=== PATIENT | male | born 2000 | race Caucasian/White ===

== ENCOUNTER 2020-08-02 18:03 | Emergency (ER) | payer OTHER, SELFPAY ==
[2020-08-02 18:15] VITALS: BP 130/72; PULSE 138; RESP 20; TEMP 37.2; O2SAT 100
[2020-08-02 18:16] LABS: Glucose Point of Care 159 (65-105)
[2020-08-02 18:26] LABS: Basophils Percent Auto 0.2 % (0.2-1.2); Hemoglobin 17.3 g/dL (14.0-18.0); Immature Granulocyte Absolute 0.06 K/mm3 (0.00-0.031); Immature Granulocyte Percent A 0.5 % (0-0.5); Lymphocytes Absolute Auto 2.11 K/mm3 (0.9-3.2); Lymphocytes Percent Auto 18.5 % (18.3-44.2); Mean Corpuscular HGB Conc 35.3 g/dl (32-36); Mean Corpuscular Hemoglobin 29.3 pg (26-34); Mean Corpuscular Volume 83.1 fl (80-100); Mean Platelet Volume 8.9 fl (7.4-10.4); Monocytes Absolute Auto 1.2 K/mm3 (0.1-0.6); Monocytes Percent Auto 10.1 % (2.6-8.5); Neutrophils Absolute Auto 8.1 K/mm3 (1.3-6.7); Neutrophils Percent Auto 70.7 % (45.5-73.1); Platelet Count Result 428 k/mm3 (150-375); Red Cell Distribution Width 12.6 % (11.5-14.5); White Blood Count 11.4 K/mm3 (4.5-10.0)
[2020-08-02 18:37] LABS: Alanine Aminotransferase 39 U/L (4-50); Albumin Level 4.7 g/dL (3.5-5.1); Alkaline Phosphatase 117 U/L (38-126); Anion Gap 12 mmol/L (8-16); Aspartate Amino Transferase 40 U/L (17-59); Bilirubin,Total 1.4 mg/dL (0.2-1.3); Blood Urea Nitrogen 17 mg/dL (9-20); Calcium 9.7 mg/dL (8.4-10.2); Carbon Dioxide 26 mmol/L (22-30); Chloride 93 mmol/L (98-107); Estimated CRCL calculation 150 ml/min; Estimated Glomerular Filt Rate > 60; Glucose 150 mg/dL (75-110); Lipase 23 U/L (23-300); Potassium 3.3 mmol/L (3.4-5.0); Sodium 131 mmol/L (137-145)
--- NOTE | 2020-08-02 19:00 | PC.NURSE ---
pt left the ER. Gait steady. Saw him get in a dark 4 car door
== END 2020-08-02 19:00 | disposition left against medical advice (07) ==
LOC: ANHED 19:06
PROVIDERS: Emergency Medicine; PCP Physician Assistant
DX: R11.10 Vomiting, unspecified (principal)
CPT/HCPCS: 36415; 80053; 83690; 85025; 99199

== ENCOUNTER 2021-07-26 16:13 | Outpatient (CLI) | payer OTHER, SELFPAY ==
[2021-07-26 17:20] LABS: SARS-CoV-2 Ag Positive (Negative)
== END 2021-07-26 16:14 | disposition home or self-care (01) ==
LOC: CHSLAB 16:18
PROVIDERS: PCP Physician Assistant; Visit Provider Physician Assistant
DX: U07.1 COVID-19 (principal)
CPT/HCPCS: 87426; C9803

== ENCOUNTER 2024-09-17 20:20 | Emergency (ER) | payer OTHER, SELFPAY ==
[2024-09-17 20:25] VITALS: BP 152/100; PULSE 94; RESP 20; TEMP 36.4; O2SAT 100
[2024-09-17] MEDS: ONDANSETRON INJ 4 MG/2 ML VIAL IV PUSH (20:39)
[2024-09-17] MEDS: SODIUM CHLORIDE 0.9% IV 1,000 ML 999 ML IV CONT (20:41)
[2024-09-17 20:46] LABS: Basophils Absolute Auto 0.06 K/mm3 (0.00-0.10); Basophils Percent Auto 0.6 % (0.0-1.0); Eosinophils Absolute Auto 0.02 K/mm3 (0.02-0.50); Eosinophils Percent Auto 0.2 % (1.0-6.0); Hematocrit 42.3 % (40.0-54.0); Hemoglobin 14.1 g/dL (14.0-18.0); Immature Granulocyte Absolute 0.03 K/mm3 (0.00-0.00); Immature Granulocyte Percent A 0.3 % (0.0-0.0); Lymphocytes Absolute Auto 2.16 K/mm3 (1.10-4.50); Lymphocytes Percent Auto 23.3 % (18.0-42.0); Mean Corpuscular HGB Conc 33.3 g/dL (32-36); Mean Corpuscular Volume 83.9 fL (78.0-102.0); Mean Platelet Volume 9.2 fl (8.7-11.0); Monocytes Absolute Auto 0.65 K/mm3 (0.10-0.90); Neutrophils Absolute Auto 6.35 K/mm3 (1.70-7.20); Neutrophils Percent Auto 68.6 % (50.0-70.0); Platelet Count Result 355 K/mm3 (150-420); Red Blood Count 5.04 M/mm3 (4.70-6.10); Red Cell Distribution Width 13.2 % (11.6-14.4); White Blood Count 9.3 K/mm3 (4.8-10.8)
[2024-09-17 20:59] LABS: Add Urine Microscopic? YES; Appearance Urine Clear (Clear); Bilirubin Urine Negative (Negative); Blood Urine Trace-intact (Negative); Color Urine Yellow (Yellow); Glucose Urine UA 2+ (Negative); Ketones Urine 1+ (Negative); Leukocyte Esterase Ur Negative LEU/UL (Negative); Nitrate Urine Negative (Negative); Protein Urine 3+ (Negative); Specific Grav Ur >= 1.030 (1.010-1.020); Urobilinogen Urine 0.2 mg/dL (0.2-1.0)
[2024-09-17 21:01] LABS: Alanine Aminotransferase 25 U/L (16-63); Albumin Level 4.2 g/dL (3.4-5.0); Alkaline Phosphatase 113 U/L (46-116); Anion Gap 13 mmol/L (4-12); Aspartate Amino Transferase 12 U/L (15-37); Bilirubin,Total 0.7 mg/dL (0.00-1.00); Blood Urea Nitrogen 27 mg/dL (7-18); Calcium 9.3 mg/dL (8.5-10.1); Carbon Dioxide 25 mmol/L (21-32); Chloride 99 mmol/L (98-108); Estimated CRCL calculation 74 ml/min; Estimated Glomerular Filt Rate > 60; Glucose 325 mg/dL (70-99); Magnesium 1.8 mg/dL (1.8-2.4); Osmolality Calculated 302 mOsm/kg (285-295); Phosphorus 3.3 mg/dL (2.6-4.7); Potassium 4.3 mmol/L (3.5-5.1); Sodium 137 mmol/L (136-145); Total Protein 7.8 g/dL (6.4-8.2)
[2024-09-17 21:04] LABS: Influenza A QL RT-PCR Negative (Negative); Influenza B QL RT-PCR Negative (Negative); RSV RNA, RT-PCR Negative (Negative); SARS-CoV-2 RNA PCR Negative (Negative)
[2024-09-17 21:04] LABS: Bacteria Urine None seen /hpf; RBC Urine 0-2 /hpf (0-2); Squamous Epithelial Cell Urine None seen /hpf (Few); WBC Urine 0-3 /hpf (0-3)
[2024-09-17 21:05] LABS: Mucus Urine Few /lpf
--- NOTE | 2024-09-17 21:08 | ED.NAVMDI ---
HPI - Nausea/Vomiting/Diarrhea General Chief complaint: Nausea/Vomiting/Diarrhea Stated complaint: Nausea, Vomiting Time Seen by Provider: 09/17/24 20:23 Source: patient and family Mode of arrival: ambulatory Limitations: no limitations History of Present Illness HPI Narrative: This is a 24-year-old type 1 diabetic presents with nausea vomiting currently no abdominal pain no fever chills no shortness of breath no dysuria no flank pain no diarrhea or constipation. MD elicited complaint: nausea, vomiting and diarrhea Onset (ago): hour(s) Description of vomiting: food contents and watery Related Data Allergies Allergy/AdvReac Type Severity Reaction Status Date / Time haloperidol (From Haldol) Allergy Unknown Unknown Verified 09/17/24 20:39 Review of Systems Review of Systems: All systems reviewed & are unremarkable except as noted in HPI and below PMFSH Past Medical History Medical History Type 1 diabetes Exam Const: General: healthy appearing and no acute distress Nutritional Appearance: well nourished Orientation/consciousness: patient oriented x3 Limitations: no limitations HENMT: Head: normal to inspection Eyes: Conjunctivae: conjunctivae normal Neck: Neck: normal visual inspection Chest: Chest palpation & inspection: normal inspection of the chest Resp: Effort & Inspection: normal respiratory effort Auscultation: clear to auscultation bilaterally Cardio: Rate: regular rate Rhythm: regular rhythm GI: GI Palp: Yes Soft to palpation Auscultation: normal bowel sounds : General: Yes bladder normal to palpation Urinary Catheter: Urinary Catheter: patent and draining Back/Spine/Pelvis: Back: no CVA tenderness Skin: General skin exam: normal color Rashes: no rashes Wounds: no wounds Neuro: General: patient oriented x3, moves all extremities and no meningeal signs Course Course Emergency Course: patient had blood work done which shows an anion gap of 13 urine no acute urinary tract infection does show 1+ ketones, patient is type 1 diabetic on an insulin pump. White count is normal chest x-ray performed shows no acute cardiopulmonary abnormalities. Patient received IV Zofran and 1L of IV fluids. Vital Signs Vital signs: Vital Signs Temperature 36.4 C 09/17/24 20:25 Pulse Rate 94 09/17/24 20:25 Respiratory Rate 20 09/17/24 20:25 Blood Pressure 152/100 H 09/17/24 20:25 Pulse Oximetry 100 09/17/24 20:25 Oxygen Delivery Room Air 09/17/24 20:25 Temperature 36.4 C 09/17/24 20:25 Pulse Rate 94 09/17/24 20:25 Respiratory Rate 20 09/17/24 20:25 Blood Pressure 152/100 H 09/17/24 20:25 Pulse Oximetry 100 09/17/24 20:25 Oxygen Delivery Room Air 09/17/24 20:25 MDM - Nausea/Vomiting/Diarrhea Lab Data 09/17/24 20:42 09/17/24 20:42 Labs: Lab Results 09/17/24 09/17/24 Range/Units 20:42 21:04 WBC 9.3 (4.8-10.8) K/mm3 RBC 5.04 (4.70-6.10) M/mm3 Hgb 14.1 (14.0-18.0) g/dL Hct 42.3 (40.0-54.0) % MCV 83.9 (78.0-102.0) fL MCH 28.0 (27.0-31.0) pg MCHC 33.3 (32-36) g/dL RDW 13.2 (11.6-14.4) % Plt Count 355 (150-420) K/mm3 MPV 9.2 (8.7-11.0) fl Immature Gran % (Auto) 0.3 H (0.0-0.0) % Neut % (Auto) 68.6 (50.0-70.0) % Lymph % (Auto) 23.3 (18.0-42.0) % [place] % (Auto) 7.0 (2.0-11.0) % Eos % (Auto) 0.2 L (1.0-6.0) % Baso % (Auto) 0.6 (0.0-1.0) % Lymph # (Auto) 2.16 (1.10-4.50) K/mm3 [place] # (Auto) 0.65 (0.10-0.90) K/mm3 Eos # (Auto) 0.02 (0.02-0.50) K/mm3 Baso # (Auto) 0.06 (0.00-0.10) K/mm3 Abs Immat Gran (auto) 0.03 H (0.00-0.00) K/mm3 Absolute Neuts (auto) 6.35 (1.70-7.20) K/mm3 Absolute Nucleated RBC 0.00 (0.00-0.00) K/mm3 Nucleated RBC % 0.0 (0-0.0) % Sodium 137 (136-145) mmol/L Potassium 4.3 (3.5-5.1) mmol/L Chloride 99 (98-108) mmol/L Carbon Dioxide 25 (21-32) mmol/L Anion Gap 13 H (4-12) mmol/L BUN 27 H (7-18) mg/dL Creatinine 1.33 H (0.70-1.30) mg/dL Estim Creat Clear Calc 74 ml/min Estimated GFR > 60 (59 - ) Glucose 325 H (70-99) mg/dL Calculated Osmolality 302 H (285-295) mOsm/kg Calcium 9.3 (8.5-10.1) mg/dL Phosphorus 3.3 (2.6-4.7) mg/dL Magnesium 1.8 (1.8-2.4) mg/dL Total Bilirubin 0.7 (0.00-1.00) mg/dL AST 12 L (15-37) U/L ALT 25 (16-63) U/L Alkaline Phosphatase 113 (46-116) U/L Total Protein 7.8 (6.4-8.2) g/dL Albumin 4.2 (3.4-5.0) g/dL Urine Color Yellow (Yellow) Urine Appearance Clear (Clear) Urine pH 6.0 (5.0-8.0) Ur Specific [place] >= 1.030 H (1.010-1.020) Urine Protein 3+ H (Negative) Urine Glucose (UA) 2+ H (Negative) Urine Ketones 1+ H (Negative) Ur Blood (Man) Trace-intact H (Negative) Urine Nitrate Negative (Negative) Urine Bilirubin Negative (Negative) Urine Urobilinogen 0.2 (0.2-1.0) mg/dL Leukocyte Esterase Rfl Negative (Negative) FABIANA/UL Urine RBC 0-2 (0-2) /hpf Urine WBC 0-3 (0-3) /hpf Ur Squamous Epith Cells None seen (Few) /hpf Urine Bacteria None seen (None) /hpf Urine Mucus Few H /lpf Influenza A (RT-PCR) Negative (Negative) Influenza B (RT-PCR) Negative (Negative) RSV (RT-PCR) Negative (Negative) SARS-CoV-2 RNA (RT-PCR) Negative (Negative) Critical Care Time Critical Care Time Critical Care Time: No Discharge Plan Discharge Clinical Impression: Gastroenteritis, Hyperglycemia Type 1 diabetes Qualifiers: Diabetes mellitus complication status: without complication Qualified Code(s): E10.9 - Type 1 diabetes mellitus without complications Patient Disposition: Home, Self-Care Condition: Stable Instructions: Antibiotic Form, Gastroenteritis (ED), Acute Nausea and Vomiting (ED), Diabetic Hyperglycemia (ED) Additional Instructions: advised to take medication as prescribed and to at continue insulin pump and follow with primary. Patient Language: Frisian Prescriptions: New ondansetron 4 mg tablet,disintegrating 4 mg PO Q6H PRN (Reason: nausea and vomiting) Qty: 14 0RF Follow-up/Referrals: Les,REEMA Arizmendi [Primary Care Provider] - Time of Disposition: 21:13
[2024-09-17 21:45] VITALS: BP 136/90; PULSE 84; RESP 18; TEMP 36.6; O2SAT 100
== END 2024-09-17 21:45 | disposition home or self-care (01) ==
PROVIDERS: Emergency Provider Emergency Medicine; PCP Physician Assistant
DX: E10.65 Type 1 diabetes mellitus with hyperglycemia (principal); K52.9 Noninfective gastroenteritis and colitis, unspecified; Z20.822 Contact with and (suspected) exposure to COVID-19
CPT/HCPCS: 36415; 71045; 80053; 81001; 83735; 84100; 85025; 87637; 96361; 96374; 99284; J2405; J7030

== ENCOUNTER 2024-09-18 17:23 | Emergency (ER) | payer OTHER, SELFPAY ==
[2024-09-18 17:24] VITALS: BP 136/102; PULSE 104; RESP 18; TEMP 36.7; O2SAT 97
--- NOTE | 2024-09-18 17:25 | ED.URI ---
HPI - URI/Sore Throat General Chief Complaint: Nausea/Vomiting/Diarrhea Stated Complaint: N/V Time Seen by Provider: 09/18/24 17:24 History of Present Illness HPI Narrative: Patient is a 24-year-old male with diabetes type 1 here for continued nausea and vomiting and a history of ER visit this week for similar complaints. He was discharged with Zofran. He was diagnosed with gastroenteritis. His vital signs are stable at this time in the ER. He was initially seen and started on IV fluids and labs drawn with a nasal swab. Patient stayed around 20-30 minutes and decided to take out his own IV and leave due to the fact that there is a concert at this time and he wanted to go to the concert. His mother is present. Both mother and patient/son have the mental capacity to make decisions at this time and were AAO x4 and able to make own decisions. He decided to take out his IV and quickly left the emergency room with mom. This was an AMA and only CBC was seen which is normal. They did not want to sign AMA forms. Patient understands the risks and consequences involved in leaving the facility at this time. The benefits of continued treatment and/or hospitalization with alternatives were discussed. Accu-Chek done in the ER was 156. Related Data Allergies Allergy/AdvReac Type Severity Reaction Status Date / Time haloperidol (From Haldol) Allergy Unknown Unknown Verified 09/17/24 20:39 [facility] Past Medical History Medical History Type 1 diabetes Course Vital Signs Vital signs: Vital Signs Temperature 36.7 C 09/18/24 17:24 Pulse Rate 104 H 09/18/24 17:24 Respiratory Rate 18 09/18/24 17:24 Blood Pressure 136/102 H 09/18/24 17:24 Pulse Oximetry 97 09/18/24 17:24 Oxygen Delivery Room Air 09/18/24 17:24 Temperature 36.7 C 09/18/24 17:24 Pulse Rate 104 H 09/18/24 17:24 Respiratory Rate 18 09/18/24 17:24 Blood Pressure 136/102 H 09/18/24 17:24 Pulse Oximetry 97 09/18/24 17:24 Oxygen Delivery Room Air 09/18/24 17:24 MDM - URI/Sore Throat Lab Data 09/18/24 17:40 02/28/25 17:40 Labs: Lab Results 09/18/24 09/18/24 Range/Units 17:33 17:40 WBC 7.6 (4.8-10.8) K/mm3 RBC 5.23 (4.70-6.10) M/mm3 Hgb 14.7 (14.0-18.0) g/dL Hct 44.8 (40.0-54.0) % MCV 85.7 (78.0-102.0) fL MCH 28.1 (27.0-31.0) pg MCHC 32.8 (32-36) g/dL RDW 13.1 (11.6-14.4) % Plt Count 360 (150-420) K/mm3 MPV 9.3 (8.7-11.0) fl Immature Gran % (Auto) 0.1 H (0.0-0.0) % Neut % (Auto) 60.7 (50.0-70.0) % Lymph % (Auto) 28.5 (18.0-42.0) % [place] % (Auto) 9.4 (2.0-11.0) % Eos % (Auto) 0.4 L (1.0-6.0) % Baso % (Auto) 0.9 (0.0-1.0) % Lymph # (Auto) 2.16 (1.10-4.50) K/mm3 [place] # (Auto) 0.71 (0.10-0.90) K/mm3 Eos # (Auto) 0.03 (0.02-0.50) K/mm3 Baso # (Auto) 0.07 (0.00-0.10) K/mm3 Abs Immat Gran (auto) 0.01 H (0.00-0.00) K/mm3 Absolute Neuts (auto) 4.60 (1.70-7.20) K/mm3 Absolute Nucleated RBC 0.00 (0.00-0.00) K/mm3 Nucleated RBC % 0.0 (0-0.0) % Sodium Pending Potassium Pending Chloride Pending Carbon Dioxide Pending Anion Gap Pending BUN Pending Creatinine Pending Estim Creat Clear Calc Pending Estimated GFR Pending Glucose Pending Calculated Osmolality Pending Lactic Acid Pending Calcium Pending Total Bilirubin Pending AST Pending ALT Pending Alkaline Phosphatase Pending Troponin I Pending Total Protein Pending Albumin Pending Lipase Pending Acetone Level Pending Influenza A (RT-PCR) Pending Influenza B (RT-PCR) Pending RSV (RT-PCR) Pending SARS-CoV-2 RNA (RT-PCR) Pending Discharge Plan Discharge Clinical Impression: Nausea & vomiting, Diabetes mellitus type 1 Patient Disposition: Left Against Medical Advice Condition: Stable Patient Language: Maldivian Prescriptions: No Action ondansetron 4 mg tablet,disintegrating 4 mg PO Q6H PRN (Reason: nausea and vomiting) Qty: 14 0RF Follow-up/Referrals: UNKNOWN,DOCTOR [Non-Staff] - Time of Disposition: 18:01
--- NOTE | 2024-09-18 17:41 | PCDIET ---
Covid culture sent to lab
[2024-09-18] MEDS: SODIUM CHLORIDE 0.9% IV 1,000 ML 999 ML IV CONT (17:46)
[2024-09-18 17:47] LABS: Basophils Absolute Auto 0.07 K/mm3 (0.00-0.10); Basophils Percent Auto 0.9 % (0.0-1.0); Eosinophils Absolute Auto 0.03 K/mm3 (0.02-0.50); Eosinophils Percent Auto 0.4 % (1.0-6.0); Hematocrit 44.8 % (40.0-54.0); Hemoglobin 14.7 g/dL (14.0-18.0); Immature Granulocyte Absolute 0.01 K/mm3 (0.00-0.00); Immature Granulocyte Percent A 0.1 % (0.0-0.0); Lymphocytes Absolute Auto 2.16 K/mm3 (1.10-4.50); Lymphocytes Percent Auto 28.5 % (18.0-42.0); Mean Corpuscular HGB Conc 32.8 g/dL (32-36); Mean Corpuscular Hemoglobin 28.1 pg (27.0-31.0); Mean Corpuscular Volume 85.7 fL (78.0-102.0); Mean Platelet Volume 9.3 fl (8.7-11.0); Monocytes Absolute Auto 0.71 K/mm3 (0.10-0.90); Monocytes Percent Auto 9.4 % (2.0-11.0); Neutrophils Percent Auto 60.7 % (50.0-70.0); Platelet Count Result 360 K/mm3 (150-420); Red Blood Count 5.23 M/mm3 (4.70-6.10); Red Cell Distribution Width 13.1 % (11.6-14.4); White Blood Count 7.6 K/mm3 (4.8-10.8)
--- NOTE | 2024-09-18 17:59 | PC.NURSE ---
1758 pt walked out of room told doctor in the [place] he was not staying pt took his iv out only received 200mls of NS and labs drawn no results completed states he had a concert to attend and walked out the door
[2024-09-19 17:24] LABS: Glucose Point of Care 156 mg/dl (65-105)
== END 2024-09-18 18:01 | disposition left against medical advice (07) ==
PROVIDERS: Emergency Provider Emergency Medicine; PCP Physician Assistant
DX: E10.9 Type 1 diabetes mellitus without complications (principal); R11.2 Nausea with vomiting, unspecified
CPT/HCPCS: 36415; 80053; 82010; 82948; 83605; 83690; 84484; 85025; 87040; 87637; 99283; J7030

== ENCOUNTER 2024-10-15 20:53 | Emergency (ER) | payer OTHER, SELFPAY ==
--- NOTE | ~2024-10-15 | XR_ITS ---
EXAMINATION: XR chest 1V portable 10/15/2024 22:02 INDICATION: Nausea and vomiting. Diabetes. PROCEDURE: AP portable chest COMPARISON: 09/17/2024 FINDINGS: The lungs are clear. The cardiomediastinal silhouette is within normal limits. There are no pleural effusions. There is no pneumothorax suspected. IMPRESSION: 1: NO ACUTE CARDIOPULMONARY DISEASE. Reviewed, dictated and finalized at location A.
[2024-10-15 20:53] VITALS: BP 180/125; PULSE 108; RESP 22; TEMP 36.2; O2SAT 98
--- OUTSIDE RECORDS SUMMARY | 2024-10-15 20:55 | XMS_ITS | Data Portability ---
Author Organization TIFFANY NATALIYAKaren Banerjee Address [address] [place] [address] Assessment No assessment recorded. Plan of Treatment Reminders Order Date Submit Date Provider Last Modified By Organization Details Last Modified Time Details Appointments None recorded. Lab CBC 2024 025 [facility], [address] [facility], [facility] [address], [place], [address], 5 10:16:08 CMP, serum or plasma 2024 025 [facility], [address] [facility], [facility] [address], [place], [address], 5 10:16:06 lipid panel, serum 2024 025 [facility], [address] [place] [address], [facility], [place], [address], 5 10:16:04 HbA1c (hemoglobin A1c), blood 2024 025 CHRISTINA In-Office Order, Internal Use Only DO Not Attach Compendium DO Not Attach Compendium, Do Not Delete/merge, [id number] 12:17:21 urinalysis, dipstick 2022 [facility] Order, Internal Use Only DO Not Attach Compendium DO Not Attach Compendium, Do Not Delete/merge, [id number] 15:45:59 Referral None recorded. Procedures None recorded. Surgeries None recorded. Imaging None recorded. Medication Orders buspirone 10 mg tablet 2022 023 CHRISTINA Not available 3 14:46:19 ondansetron 4 mg disintegrat ing tablet 2021 CHRISTINA Not available 2 11:57:15 gabapentin 300 mg capsule 2021 CHRISTINA Not available 2 11:57:12 nortriptyli ne 25 mg capsule 2021 kclarkma Not available 3 15:12:41 omeprazole 20 mg capsule,del ayed release 2021 CHRISTINA Not available 11:57:15 metoclopram julienne 10 mg tablet 2021 CHRISTINA Not available 2 11:57:11 Compro 25 mg rectal suppository 2021 CHRISTINA Not available 2 11:57:13 famotidine 20 mg tablet 2021 CHRISTINA Not available 2 11:57:14 Humalog U-100 Insulin 100 unit/mL subcutaneou s solution 2021 CHRISTINA Not available 2 11:57:15 naproxen 500 mg tablet 2021 CHRISTINA Not available 2 11:57:14 ondansetron HCl 4 mg tablet 2021 CHRISTINA Not available 2 11:57:14 Patient TargetsNo targets recorded. Patient Instructions Encounter Date Encounter Id Patient Instructions Last Modified By Organization Details Last Modified Time 11/13/2021 [id number] plantar fasciitis: care instructions jnanney Not available 11/13/2021 15:30:40 plantar fasciitis: exercises jnanney Not available 11/13/2021 15:30:40 learning about type 1 diabetes jnanney Not available 11/13/2021 15:30:40 type 1 diabetes: care instructions jnanney Not available 11/13/2021 15:30:40 05/30/2022 [id number] learning about type 1 diabetes jnanney Not available 05/30/2022 11:57:01 type 1 diabetes: care instructions jnanney Not available 05/30/2022 11:57:01 12/18/2022 [id number] A healthy lifestyle: care instructions jnanney Not available 12/18/2022 14:46:15 learning about type 1 diabetes jnanney Not available 12/18/2022 14:46:15 type 1 diabetes: care instructions jnanney Not available 12/18/2022 14:46:15 04/16/2023 [id number] A healthy lifestyle: care instructions jnanney Not available 04/16/2023 15:45:59 learning about type 1 diabetes jnanney Not available 04/16/2023 15:45:59 type 1 diabetes: care instructions jnanney Not available 04/16/2023 15:45:59 09/03/2024 [id number] learning about type 1 diabetes jnanney Not available 09/03/2024 12:01:53 type 1 diabetes: care instructions jnanney Not available 09/03/2024 12:01:53 Reason for Referral None Reported. Results Created Date Observation Date Name Description Value Unit Range Abnormal Flag Note LastModifiedBy Organization Detail LastModifiedTime 04/16/2004/16/2023 urina lysis , dipst ick Leukocytes Negati ve Not Available In-Office Order Internal Use Only DO Not Attach Compendium DO Not Attach Compendium, Do Not Delete/merge, [id number] 04/16/2023 15:37:08 04/16/20 23 04/16/2023 urina lysis , dipst ick Nitrite negati ve Not Available In-Office Order Internal Use Only DO Not Attach Compendium DO Not Attach Compendium, Do Not Delete/merge, [id number] 04/16/2023 15:37:08 04/16/20 23 04/16/2023 urina lysis , dipst ick Urobilinogen .2 Not Available In-Of fice Order Internal Use Only DO Not Attach Compendium DO Not Attach Compendium, Do Not Delete/merge, [id number] 04/16/2023 15:37:08 04/16/20 23 04/16/2023 urina lysis , dipst ick Protein Negati ve Not Available In-Office Order Internal Use Only DO Not Attach Compendium DO Not Attach Compendium, Do Not Delete/merge, 04/16/2023 15:37:04/16/20 23 04/16/2023 urina lysis , dipst ick pH 5.5 Not Available In-Office Order Internal Use Only DO Not Attach Compendium DO Not Attach Compendium, Do Not Delete/merge, 04/16/2023 15:37:04/16/20 23 04/16/2023 urina lysis , dipst ick Blood Negati ve Not Available In-Office Order Internal Use Only DO Not Attach Compendium DO Not Attach Compendium, Do Not Delete/merge, 04/16/2023 15:37:04/16/20 23 04/16/2023 urina lysis , dipst ick Specific [place] 1.015 Not Available In-Off ice Order Internal Use Only DO Not Attach Compendium DO Not Attach Compendium, Do Not Delete/merge, 04/16/2023 15:37:04/16/20 23 04/16/2023 urina lysis , dipst ick Ketone Negati ve Not Available In-Office Order Internal Use Only DO Not Attach Compendium DO Not Attach Compendium, Do Not Delete/merge, 04/16/2023 15:37:04/16/20 23 04/16/2023 urina lysis , dipst ick Bilirubin Negati ve Not Available In-Office Order Internal Use Only DO Not Attach Compendium DO Not Attach Compendium, Do Not Delete/merge, 04/16/2023 15:37:04/16/20 23 04/16/2023 urina lysis , dipst ick Glucose 1000 Not Available In-Office Order Internal Use Only DO Not Attach Compendium DO Not Attach Compendium, Do Not Delete/merge, 04/16/2023 15:37:04/16/20 23 04/16/2023 urina lysis , dipst ick Appearance Clear Not Available In-Offi ce Order Internal Use Only DO Not Attach Compendium DO Not Attach Compendium, Do Not Delete/merge, 04/16/2023 15:37:08 04/16/20 23 04/16/2023 urina lysis , dipst ick Color Pale Yellow Not Available In-Office Order Internal Use Only DO Not Attach Compendium DO Not Attach Compendium, Do Not Delete/merge, [id number] 04/16/2023 15:37:08 12/07/19 24 12/07/2023 Compr ehens yen metab olic 1999 panel - Serum or Plasm a sodium [moles/volum e] in serum or plasma 130 mmol/ L low: 136mmo l/Lhig h: 145mmo l/L low SODIU M 130 (L) 136 - 145 mmol/ L 12/06 12:06 PM CDT [facility] Not Available Not Available 09/03/2024 11:01:15 12/07/19 24 12/07/2023 Compr ehens yen metab olic 1999 panel - Serum or Plasm a potassium [moles/volum e] in serum or plasma 3.4 mmol/ L low: 3.5mmo l/Lhig h: 5.1mmo l/L low POTAS SIUM 3.4 (L) 3.5 - 5.1 mmol/ L 12/06 12:06 PM CDT [facility] Not Available Not Available 09/03/2024 11:01:15 12/07/19 24 12/07/2023 Compr ehens yen metab olic 1999 panel - Serum or Plasm a chloride [moles/volum e] in serum or plasma 77 mmol/ L low: 98mmol /Lhigh : 107mmo l/L low CHLOR JULIENNE 77 (L) 98 - 107 mmol/ L 12/06 12:06 PM CDT [facility] Not Available Not Available 09/03/2024 11:01:15 12/07/19 24 12/07/2023 Compr ehens yen metab olic 1999 panel - Serum or Plasm a carbon dioxide, total [moles/volum e] in serum or plasma 23 mmol/ L low: 22mmol /Lhigh : 30mmol /L CO2, VENOU S 23 22 - 30 mmol/ L 12/06 12:06 PM CDT [facility] Not Available Not Available 09/03/2024 11:01:15 12/07/19 24 12/07/2023 Compr ehens yen metab olic 1999 panel - Serum or Plasm a anion gap in serum or plasma 33.4 mmol/ L high: 18mmol /L high ANION GAP 33.4 (H) <18.0 mmol/ L 12/06 12:06 PM CDT [facility] Not Available Not Available 09/03/2024 11:01:15 12/07/19 24 12/07/2023 Compr ehens yen metab olic 1999 panel - Serum or Plasm a glucose [mass/volume ] in serum or plasma 377 mg/dL low: 70mg/d Lhigh: 99mg/d L high GLUCO SE 377 (H) 70 - 99 mg/dL 12/06 12:06 PM CDT [facility] Not Available Not Available 09/03/2024 11:01:15 12/07/19 24 12/07/2023 Compr ehens yen metab olic 1999 panel - Serum or Plasm a urea nitrogen [mass/volume ] in serum or plasma 48 mg/dL low: 9mg/dL high: 21mg/d L high BUN 48 (H) 9 - 21 mg/dL 12/06 12:06 PM CDT [facility] Not Available Not Available 09/03/2024 11:01:15 12/07/19 24 12/07/2023 Compr ehens yen metab olic 1999 panel - Serum or Plasm a creatinine [mass/volume ] in serum or plasma 2.8 mg/dL low: 0.7mg/ dLhigh : 1.3mg/ dL high CREAT ININE , BLOOD 2.80 (H) 0.70 - 1.30 mg/dL 12/06 12:06 PM CDT [facility] Not Available Not Available 09/03/2024 11:01:15 12/07/19 24 12/07/2023 Compr ehens yen metab olic 2000 panel - Serum or Plasm a urea nitrogen/cre atinine [mass ratio] in serum or plasma 17 text: 12 - 20 ratio BUN/C REATI NINE RATIO 17 12 - 20 ratio 12/06 12:06 PM CDT [facility] Not Available Not Available 09/03/2024 11:01:15 12/07/19 24 12/07/2023 Compr [employer] yen metab olic 1999 panel - Serum or Plasm a protein [mass/volume ] in serum or plasma 8.4 g/dL low: 6.3g/d Lhigh: 8.2g/d L high TOTAL PROTE IN 8.4 (H) 6.3 - 8.2 g/dL 12/06 12:06 PM CDT [facility] Not Available Not Available 09/03/2024 11:01:15 12/07/19 24 12/07/2023 Compr [employer] yen metab olic 1999 panel - Serum or Plasm a albumin [mass/volume ] in serum or plasma 4.7 g/dL low: 3.5g/d Lhigh: 5g/dL ALBUM IN 4.7 3.5 - 5.0 g/dL 12/06 12:06 PM CDT [facility] Not Available Not Available 09/03/2024 11:01:15 12/07/19 24 12/07/2023 Compr [employer] yen Be my eyes olic 1999 panel - Serum or Plasm a albumin/glob ulin [mass ratio] in serum or plasma 1.3 low: 1high: 2.2 A/G RATIO 1.3 1.0 - 2.2 12/06 12:06 PM CDT [facility] [employer] [facility] Not Available Not Available 09/03/2024 11:01:15 12/07/19 24 12/07/2023 Compr [employer] yen Be my eyes olic 1999 panel - Serum or Plasm a calcium [mass/volume ] in serum or plasma 9.3 mg/dL low: 8.7mg/ dLhigh : 10.5mg /dL CALCI UM 9.3 8.7 - 10.5 mg/dL 12/06 12:06 PM CDT [facility] [employer] [facility] Not Available Not Available 09/03/2024 11:01:15 12/07/19 24 12/07/2023 Compr ehens yen metab olic 1999 panel - Serum or Plasm a bilirubin.to su [mass/volume ] in serum or plasma 1.1 mg/dL low: 0.2mg/ dLhigh : 1.2mg/ dL T BILI 1.1 0.2 - 1.2 mg/dL 12/06 12:06 PM CDT [facility] [employer] [facility] Not Available Not Available 09/03/2024 11:01:15 12/07/19 24 12/07/2023 Compr ehens yen metab olic 1999 panel - Serum or Plasm a aspartate aminotransfe rase [enzymatic activity/vol ume] in serum or plasma 32 U/L low: 5U/Lhi gh: 34U/L SGOT (AST) 32 5 - 34 U/L 12/06 12:06 PM CDT [facility] [employer] [facility] Not Available Not Available 09/03/2024 11:01:15 12/07/19 24 12/07/2023 Compr ehens yen metab olic 1999 panel - Serum or Plasm a alanine aminotransfe rase [enzymatic activity/vol ume] in serum or plasma 41 U/L low: 0U/Lhi gh: 55U/L SGPT (ALT) 41 0 - 55 U/L 12/06 12:06 PM CDT [facility] [employer] [facility] Not Available Not Available 09/03/2024 11:01:15 12/07/19 24 12/07/2023 Compr ehens yen metab olic 2000 panel - Serum or Plasm a alkaline phosphatase [enzymatic activity/vol ume] in serum or plasma 115 U/L low: 40U/Lh igh: 150U/L ALKAL INE PHOSP HATAS E 115 40 - 150 U/L 12/06 12:06 PM CDT [facility] Not Available Not Available 09/03/2024 11:01:15 12/07/19 24 12/07/2023 Compr ehens yen metab olic 2000 panel - Serum or Plasm a glomerular filtration rate/1.73 sq M.predicted among non-blacks [volume rate/area] in serum, plasma or blood by creatinine-b ased formula (MDRD) 31 low: 60 low GFR, ESTIM ATED 31 (L) >=60 12/06 12:06 PM CDT [facility] Not Available Not Available 09/03/2024 11:01:15 12/07/19 24 12/07/2023 Compr ehens yen metab olic 1999 panel - Serum or Plasm a glomerular filtration rate/1.73 sq M.predicted among blacks [volume rate/area] in serum, plasma or blood by creatinine-b ased formula (MDRD) 34 low: 60 low GFR, EST. AFRIC AN 34 (L) >=60 12/06 12:06 PM CDT [facility] Not Available Not Available 09/03/2024 11:01:15 12/07/19 24 12/07/2023 Compr ehens yen metab olic 1999 panel - Serum or Plasm a glomerular filtration rate/1.73 sq M.predicted among non-blacks [volume rate/area] in serum, plasma or blood by creatinine-b ased formula (MDRD) 28 low: 60 low GFR, EST. NONAF RICAN 28 (L) >=60 12/06 12:06 PM CDT [facility] Not Available Not Available 09/03/2024 11:01:15 12/07/19 24 12/07/2023 Compr ehens yen metab olic 1999 panel - Serum or Plasm a interpretati on and review of laboratory results Abnorm al Not Available Not Available 11:01:15 02/12/20 24 02/12/2024 Hemog lobin A1c/H emogl obin. total in Blood hemoglobin A1C, POC 9.8 % Hemog lobin A1C, POC 9.8 % Not Available Not Available 09/03/2024 11:01:35 02/12/20 24 02/12/2024 Hemog lobin A1c/H emogl obin. total in Blood interpretati on and review of laboratory results Abnorm al Not Available Not Available 11:01:35 09/03/19 25 09/04/2024 LIPID PANEL cholesterol, total 256 mg/dL 100-19 9 above high normal Not Available [address], [address], 09/04/2024 10:16:04 09/03/19 25 09/04/2024 LIPID PANEL triglyceride s 125 mg/dL 0-149 Not Available [address], [address], 09/04/2024 10:16:04 09/03/19 25 09/04/2024 LIPID PANEL HDL cholesterol 49 mg/dL >39 Not Available [address], [address], 09/04/2024 10:16:04 09/03/19 25 09/04/2024 LIPID PANEL VLDL cholesterol kiersten 23 mg/dL 5-40 Not Available [address], [address], 09/04/2024 10:16:04 09/03/19 25 09/04/2024 LIPID PANEL LDL chol calc (nih) 184 mg/dL 0-99 above high normal Not Available [address], [address], 09/04/2024 10:16:04 09/03/19 25 09/04/2024 COMP. METAB OLIC PANEL (14) glucose 108 mg/dL 70-99 above high normal Not Available [address], [address], 09/04/2024 10:16:06 09/03/19 25 09/04/2024 COMP. METAB OLIC PANEL (14) BUN 18 mg/dL 6-20 Not Available [address], [address], 09/04/2024 10:16:06 09/03/19 25 09/04/2024 COMP. METAB OLIC PANEL (14) creatinine 0.99 mg/dL 0.76-1 .27 Not Available [address], [address], 09/04/2024 10:16:06 09/03/19 25 09/04/2024 COMP. METAB OLIC PANEL (14) eGFR 108 mL/mi n/1.7 3 >59 Not Available [address], [address], 09/04/2024 10:16:06 09/03/19 25 09/04/2024 COMP. METAB OLIC PANEL (14) BUN/creatini ne ratio 18 9-20 Not Available [address], [address], 09/04/2024 10:16:06 09/03/19 25 09/04/2024 COMP. METAB OLIC PANEL (14) sodium 142 mmol/ L 134-14 4 Not Available [address], [address], 09/04/2024 10:16:06 09/03/19 25 09/04/2024 COMP. METAB OLIC PANEL (14) potassium 5.4 mmol/ L 3.5-5. 2 above high normal Not Available [address], [address], 09/04/2024 10:16:06 09/03/19 25 09/04/2024 COMP. METAB OLIC PANEL (14) chloride 104 mmol/ L 96-106 Not Available [address], [address], 09/04/2024 10:16:06 09/03/19 25 09/04/2024 COMP. METAB OLIC PANEL (14) carbon dioxide, total 23 mmol/ L 20-29 Not Available [address], [address], 09/04/2024 10:16:06 09/03/19 25 09/04/2024 COMP. METAB OLIC PANEL (14) calcium 9.8 mg/dL 8.7-10 .2 Not Available [address], [address], 09/04/2024 10:16:06 09/03/19 25 09/04/2024 COMP. METAB OLIC PANEL (14) protein, total 7.2 g/dL 6.0-8. 5 Not Available [address], [address], 09/04/2024 10:16:06 09/03/19 25 09/04/2024 COMP. METAB OLIC PANEL (14) albumin 4.6 g/dL 4.3-5. 2 Not Available [address], [address], 09/04/2024 10:16:06 09/03/19 25 09/04/2024 COMP. METAB OLIC PANEL (14) globulin, total 2.6 g/dL 1.5-4. 5 Not Available [address], [address], 09/04/2024 10:16:06 09/03/19 25 09/04/2024 COMP. METAB OLIC PANEL (14) bilirubin, total 0.2 mg/dL 0.0-1. 2 Not Available [address], [address], 09/04/2024 10:16:06 09/03/19 25 09/04/2024 COMP. METAB OLIC PANEL (14) alkaline phosphatase 92 IU/L 44-121 Not Available [address], [address], 09/04/2024 10:16:06 09/03/19 25 09/04/2024 COMP. METAB OLIC PANEL (14) AST (SGOT) 16 IU/L 0-40 Not Available [address], [address], 09/04/2024 10:16:06 09/03/19 25 09/04/2024 COMP. METAB OLIC PANEL (14) ALT (SGPT) 11 IU/L 0-44 Not Available [address], [address], 09/04/2024 10:16:06 09/03/19 25 09/04/2024 CARDI OVASC ULAR REPOR T interpretati on Note Suppl ement al repor t is avail able. Not Available [address], [address], 09/04/2024 10:16:07 09/03/19 25 09/04/2024 CARDI OVASC ULAR REPOR T pdf . Not Available [address], [address], 09/04/2024 10:16:07 09/03/19 25 09/04/2024 CBC, PLATE LET, NO DIFFE RENTI AL WBC 7.8 x10e3 /uL 3.4-10 .8 Not Available [address], [address], 09/04/2024 10:16:08 09/03/19 25 09/04/2024 CBC, PLATE LET, NO DIFFE RENTI AL RBC 4.95 x10e6 /uL 4.14-5 .80 Not Available [address], [address], 09/04/2024 10:16:08 09/03/19 25 09/04/2024 CBC, PLATE LET, NO DIFFE RENTI AL hemoglobin 13.8 g/dL 13.0-1 7.7 Not Available [address], [address], 09/04/2024 10:16:08 09/03/1909/04/2024 CBC, PLATE LET, NO DIFFE RENTI AL hematocrit 43.6 % 37.5-5 1.0 Not Available [address], [address], 09/04/2024 10:16:08 09/03/1909/04/2024 CBC, PLATE LET, NO DIFFE RENTI AL MCV 88 fL 79-97 Not Available [address], [address], 09/04/2024 10:16:08 09/03/1909/04/2024 CBC, PLATE LET, NO DIFFE RENTI AL MCH 27.9 pg 26.6-3 3.0 Not Available [address], [address], 09/04/2024 10:16:08 09/03/1909/04/2024 CBC, PLATE LET, NO DIFFE RENTI AL MCHC 31.7 g/dL 31.5-3 5.7 Not Available [address], [address], 09/04/2024 10:16:08 09/03/1909/04/2024 CBC, PLATE LET, NO DIFFE RENTI AL RDW 13.8 % 11.6-1 5.4 Not Available [address], [address], 09/04/2024 10:16:08 09/03/1909/04/2024 CBC, PLATE LET, NO DIFFE RENTI AL platelets 415 x10e3 /uL 150-45 0 Not Available [facility] [address] [facility], [place], [address], 09/04/2024 10:16:08 09/03/1909/03/2024 HbA1c (hemo globi n A1c), blood HbA1c 9.0 Not Available In-Office Order Internal Use Only DO Not Attach Compendium DO Not Attach Compendium, Do Not Delete/merge, [id number] 09/03/2024 12:01:31 09/17/1909/17/2024 XR, chest No observ ation record ed. [facility] [address] [place], [address], 09/18/2024 10:37:26 Result Notes None recorded. Problems Name Problem SNOMED Code Status Onset Date Resolution Date Notes Provider Name and Address Organization Details Recorded Time Pneumonia 408433031 Active 2017 KAUR Cohen, [place] - [facility] 0 11:54:45 Dehydration 30528720 Active 2017 Carol Rojas MA null, [place] - [facility] 1 14:33:10 Mixed hypercholester olemia and hypertriglycer idemia 913046937 Active 2017 KAUR [place], [place] [facility] 0 11:54:46 Diabetic ketoacidosis without coma 908265458 Active 2017 KAUR [place], [place] [facility] 1 10:29:24 Type 1 diabetes mellitus 41848539 Active 2017 KAUR [place], [place] [facility] 0 11:54:45 Problem Notes None recorded. Procedures Surgical History Date Name Laterality Status Provider Name and Address Organization Details Recorded Time Cholecystectomy completed Ruth Ann Gramajo [place] - [facility] 09/03/2024 11:51:23 Imaging Results Imaging Date Name Status LastModified by Organiz ation Details LastModified Time 09/17/2024 XR, chest completed [facility] [address] [place], [address], 09/18/2024 10:37:26 Procedure Notes None recorded. Medical Equipment None Reported. Allergies Allergen ID Allergen Name Allergen Category Reaction Reaction Severity Criticality Documentation Date Start Date Code Code System Note Provider Name and Address Organization Details Recorded Time 15280 strawberr y allergeni c extract food rash moderate Not available 03/23/2015 52504 4 RxNorm Not Available Not Available Not Available No known drug allergies Medications Name Sig Start Date Stop Date Status Note LastModified by Organization Details LastModified Time atorvasta tin 40 mg tablet 05/06 completed Not Available Not Available Not Available atorvasta tin 20 mg tablet TAKE 1 TABLET BY MOUTH EVERY DAY active Not Available Not Available No t Available erythromy jose alejandro 500 mg tablet TAKE 1 TABLET EVERY 6 HOURS BY ORAL ROUTE FOR 10 DAYS. 11/13 completed Not Available Not Available Not Available sildenafi l 50 mg tablet Take 1 tablet every day by oral route as directed . 11/13 completed Not Available Not Available Not Available Glucagon Emergency Kit 1 mg solution for injection 11/13 completed Not Available Not Available Not Available promethaz ine 25 mg rectal supposito ry Insert 1 supposit ory by rectal route as needed. 11/13 completed Not Available Not Available Not Available Compro 25 mg rectal supposito ry UNWRAP AND INSERT 1 SUPPOSIT ORY RECTALLY TWICE DAILY NEEDED 2022 active Not Available Not Available Not Avai lable ondansetr on HCl 4 mg tablet TAKE 1-2 TABLETS BY MOUTH EVERY 8 HOURS NEEDED FOR NAUSEA - 1ST LINE. active Not Available Not Available No t Available Lantus U-100 Insulin 100 unit/mL subcutane ous solution 08/04 completed Not Available Not Available Not Available penicilli n V potassium 500 mg tablet TAKE 1 TABLET BY MOUTH THREE TIMES A DAY 09/03 completed Not Available Not Available Not Available amlodipin e 5 mg tablet TAKE 1 TABLET BY MOUTH EVERY DAY 11/13 completed Not Available Not Available Not Available prochlorp erazine maleate 10 mg tablet Take 1 tablet 3 times a day by oral route for 10 days. active Not Available Not Available No t Available tramadol 50 mg tablet TAKE 1 TABLET (50 MG TOTAL) BY MOUTH EVERY 6 (SIX) HOURS NEEDED FOR PAIN FOR UP TO 15 DAYS active Not Available Not Available No t Available triamcino lone acetonide 0.1 % topical cream 05/09 completed Not Available Not Available Not Available ondansetr on 8 mg disintegr ating tablet Place 1 tablet twice a day by translin gual route as needed for 10 days. 11/13 completed Not Available Not Available Not Available nortripty line 25 mg capsule TAKE 1 CAPSULE BY MOUTH EVERY EVENING (PATIENT NEEDS APPT FOR REFILLS) active Not Available Not Available No t Available erythromy jose alejandro 250 mg tablet TAKE ONE TABLET BY MOUTH THIRTY MINUTES BEFORE MEALS 11/13 completed Not Available Not Available Not Available amoxicill in 875 mg tablet TAKE 1 TABLET BY MOUTH TWICE A DAY FOR 10 DAYS 04/16 completed Not Available Not Available Not Available potassium chloride ER 20 mEq tablet,ex tended release(p art/cryst ) 11/13 completed Not Available Not Available Not Available famotidin e 20 mg tablet TAKE 1/2 TABLET TWICE A DAY BY MOUTH active Not Available Not Available No t Available diphenhyd ramine 50 mg/mL injection solution Take 1 mL by injectio n route. 11/13 completed Not Available Not Available Not Available Humalog U-100 Insulin 100 unit/mL subcutane ous solution INJECT UP TO 100 UNITS DAILY PER INSULIN PUMP SETTINGS active Not Available Not Available No t Available OneTouch Ultra Test strips CHECK BLOOD SUGAR 3 TIMES DAILY OR DIRECTED active Not Available Not Available No t Available doxycycli ne monohydra te 100 mg capsule 08/04 completed Not Available Not Available Not Available pantopraz ole 40 mg tablet,de layed release TAKE 1 TABLET BY MOUTH EVERY DAY active Not Available Not Available No t Available triamcino lone acetonide 0.1 % topical ointment apply bid to affected areas 03/18 completed Not Available Not Available Not Available nystatin 100,000 unit/gram topical cream 05/09 completed Not Available Not Available Not Available buspirone 10 mg tablet TAKE 1 TABLET BY MOUTH TWICE A DAY FOR 90 DAYS active Not Available Not Available No t Available lisinopri l 10 mg tablet TAKE 1 TABLET BY MOUTH DAILY. 05/30 completed Not Available Not Available Not Available Phospha Neutral 250 mg tablet TAKE 2 TABLETS BY MOUTH 3 TIMES DAILY FOR 5 DOSES. active Not Available Not Available No t Available glucagon (human recombina nt) 1 mg solution for injection 1 mg by injectio n route. 12/26 completed Not Available Not Available Not Available gabapenti n 300 mg capsule TAKE 1 CAPSULE BY MOUTH 3 TIMES A DAY (PATIENT NEEDS APPT FOR REFILLS) 2022 active Not Available Not Available Not Avai lable omeprazol e 20 mg capsule,d elayed release TAKE 1 CAPSULE BY MOUTH EVERY DAY 2022 active Not Available Not Available Not Avai lable lisinopri l 5 mg tablet Take 1 tablet every day by oral route. 10/31 completed Not Available Not Available Not Available methylpre dnisolone 4 mg tablets in a dose pack FOLLOW PACKAGE DIRECTIO NS 09/03 completed Not Available Not Available Not Available ketorolac 60 mg/2 mL intramusc ular solution Inject 1 mL every 6 hours by intramus cular route. 11/13 completed Not Available Not Available Not Available ondansetr on 4 mg disintegr ating tablet TAKE 1 TABLET BY MOUTH TWICE A DAY FOR 10 DAYS active Not Available Not Available No t Available Ketostix strips 09/21 completed Not Available Not Available Not Available naproxen 500 mg tablet TAKE 1 TABLET BY MOUTH TWICE A DAY active Not Available Not Available No t Available Microlet Lancet 05/09 completed Not Available Not Available Not Available metoclopr amide 10 mg tablet TAKE 1 TABLET BY MOUTH FOUR TIMES A DAY WITH MEALS AND AT BEDTIME active Not Available Not Available No t Available amoxicill in 875 mg-potass ium clavulana te 125 mg tablet TAKE 1 TABLET BY MOUTH TWICE DAILY FOR 10 DAYS 09/03 completed Not Available Not Available Not Available insulin lispro (U-100) 100 unit/mL subcutane ous pen INJECT 1 UNIT FOR EVERY 4 GM OF CHO. ISF OF 1 20 IF 140 MG/DL. UP TO 70 UNITS/DA Y 11/13 completed Not Available Not Available Not Available rosuvasta tin 20 mg tablet TAKE 1 TABLET BY MOUTH EVERY DAY AT NIGHT active Not Available Not Available No t Available Sure Comfort Insulin Syringe 0.5 mL 31 gauge x 12/04 completed Not Available Not Available Not Available fenofibra te micronize d 145 mg tablet Take 1 tablet every day by oral route. 11/13 completed Not Available Not Available Not Available sildenafi l (pulmonar y hypertens ion) 20 mg tablet Take 1 tablet by oral route as needed. 2022 active Not Available Not Available Not Avai lable omeprazol e 1 QD 10/31 completed Is taking this medicati on Not Available Not Available Not Available tramadol active PRN Not Available Not Avai lable Not Available fenofibra te nanocryst allized 48 mg tablet 48 mg by oral route. 03/18 completed Not Available Not Available Not Available fenofibra te nanocryst allized 145 mg tablet 08/04 completed Not Available Not Available Not Available Lantus Solostar U-100 Insulin 100 unit/mL (3 mL) subcutane ous pen INJECT 13 UNITS UNDER THE SKIN DAILY E10.65 USE FOR INSULIN PUMP FAILURE. PUMP HAS FAILED. active Not Available Not Available No t Available Trueresul t Blood Glucose System kit 05/09 completed Not Available Not Available Not Available TRUEplus Insulin 0.5 mL 29 gauge x 1/2 syringe 11/13 completed Not Available Not Available Not Available BD Insulin Syringe Ultra-Fin e 0.3 mL 31 gauge x 5/16 05/09 completed Not Available Not Available Not Available TRUEplus Lancets 28 gauge 11/13 completed Not Available Not Available Not Available Tresiba FlexTouch U-100 insulin 100 unit/mL (3 mL) subcutane ous pen 11/13 completed Not Available Not Available Not Available TechLITE Pen Needle 31 gauge x 5/16 11/13 completed Not Available Not Available Not Available Basaglar KwikPen U-100 Insulin 08/02 completed Not Available Not Available Not Available TRUEplus Pen Needle 32 gauge x 5/32 USE TO INJECT INSULIN DAILY. E10.65 active Not Available Not Available No t Available TechLITE Pen Needle 31 gauge x 3/16 USE TO INJECT INSULIN 4 TIMES A DAY 11/13 completed Not Available Not Available Not Available Dexcom G6 Sales Closer USE TO CHECK GLUCOSE FOUR TIMES DAILY active Not Available Not Available No t Available Dexcom G6 Transmitt er device APPLY NEW TRANSMIT TER EVERY 90 DAYS active Not Available Not Available No t Available OneTouch Ultra2 Meter USE DAILY DIRECTED FOR MONITORI NG OF BLOOD SUGAR FOR DIABETES E10.65 active Not Available Not Available No t Available OneTouch Delica Plus Lancet 33 gauge USE FOR TESTING 3 TIMES DAILY BEFORE MEALS active Not Available Not Available No t Available Dexcom G7 Sensor device USE 1 DEVICE CONTINUO USLY, CHANGE EVERY 10 DAYS. active Not Available Not Available No t Available Vitals Date Recorded Body height Body temperature Oxygen saturation Oxygen saturation in Arterial blood by Pulse oximetry Heart rate Body mass index (BMI) Body weight Systolic blood pressure Diastolic blood pressure Provider Name and Address Organization Details Last Updated DateTime 2 170.18 cm 97.8 [degF] 96 % 96 % 75.02 /min 23 kg/m2 92125.0 8 g 110 mm[Hg] 80 mm[Hg] Jeaneth Hamm MA [facility] 2 15:02:22 Date Recorded Body height Body mass index (BMI) Body weight Body temperature Oxygen saturation Oxygen saturation in Arterial blood by Pulse oximetry Heart rate Systolic blood pressure Diastolic blood pressure Provider Name and Address Organization Details Last Updated DateTime 2 170.18 cm 24.3 kg/m2 92642.8 2 g 97.3 [degF] 99 % 99 % 90 /min 138 mm[Hg] 84 mm[Hg] Telma david MA [facility] 2 11:31:36 Date Recorded Body height Body mass index (BMI) Body weight Respiratory rate Oxygen saturation Oxygen saturation in Arterial blood by Pulse oximetry Heart rate Systolic blood pressure Diastolic blood pressure Provider Name and Address Organization Details Last Updated DateTime 3 170.18 cm 22.7 kg/m2 26479.6 1 g 16 /min 97 % 97 % 95 /min 105 mm[Hg] 9 mm[Hg] Mary Melendez MA [facility] 3 14:24:52 Date Recorded Body height Body mass index (BMI) Body weight Oxygen saturation Oxygen saturation in Arterial blood by Pulse oximetry Heart rate Respiratory rate Systolic blood pressure Diastolic blood pressure Provider Name and Address Organization Details Last Updated DateTime 3 170.18 cm 23.1 kg/m2 78720.1 8 g 99 % 99 % 97 /min 16 /min 129 mm[Hg] 65 mm[Hg] Bella Bedoya MA [facility] 3 15:15:42 Date Recorded Body height Body mass index (BMI) Body weight Oxygen saturation Oxygen saturation in Arterial blood by Pulse oximetry Heart rate Respiratory rate Systolic blood pressure Diastolic blood pressure Provider Name and Address Organization Details Last Updated DateTime 5 170.18 cm 26.3 kg/m2 36095.5 2 g 98 % 98 % 92 /min 16 /min 128 mm[Hg] 78 mm[Hg] Ruth Ann Gramajo MA [facility] 5 11:53:39 Social History Question Answer Notes LastModified by Organizat ion Details LastModified Time Tobacco Smoking Status Never Smoker Telma Wade MA [facility] 05/30/2022 11:32:23 What Is Your Level Of Alcohol Consumption? None Information not available 05/06/2020 Animal Exposure? Yes [email or web address] Informat ion not available 03/23/2015 Are You Blind Or Do You Have Difficulty Seeing? Yes [email or web address] Information not available 05/30/2022 Are You Or Have You Been Involved With Bullying? No [email or web address] Information not available 03/23/2015 What Is Your Level Of Caffeine Consumption? None Information not available 09/03/2024 How Much Tobacco Do You Chew? None Information not available 05/06/2020 In The 14 Days Before Symptom Onset, Have You Had Close Contact With A Laboratory-confi rmed COVID-19 While That Case Was Ill? No Information not available 09/21/2020 In The 14 Days Before Symptom Onset, Have You Had Close Contact With A Person Who Is Under Investigation For COVID-19 While That Person Was Ill? No Information not available 09/21/2020 Have You Been To An Area Known To Be High Risk For COVID-19? No Information not available 09/21/2020 Are You Currently Employed? No Information not available 05/06/2020 Are You Deaf Or Do You Have Serious Difficulty Hearing? No Information not available 10/31/2020 What Type Of Diet Are You Following? REGULAR [email or web address] Information not available 03/23/2015 Do You Or Have You Ever Used E-cigarettes Or Vape? Current User Of Electronic Cigarettes Information not available 05/30/2022 Are There Any Guns Present In Your Home? Yes [email or web address] Information not available 03/23/2015 What Is Your Home Situation? Relatives Lives With Maternal Grandparents Information not available 05/09/2016 Do You Use Insect Repellent Routinely? Yes Information not available 03/23/2015 Live Alone Or With Others? With Others Information not available 05/06/2020 What Was The Date Of Your Most Recent Tobacco Screening? 09/03/2024 Information not available 09/03/2024 What Is Your Parents' Marital Status? Unmarried Information not available 03/23/2015 Pool Exposure No [email or web address] Information not available 03/23/2015 What Is Your Relationship Status? Single Information not available 09/21/2020 Do You Use Your Seat Belt Or Car Seat Routinely? Yes Sometimes Information not available 10/31/2020 Do You Have Any Siblings? 7 Half Sisters 1 Half Brother Information not available 03/23/2015 Do You Have Smoke And Carbon Monoxide Detectors In Your Home? Yes [email or web address] Information not available 03/23/2015 Are You Passively Exposed To Smoke? Yes Information not available 03/23/2015 Do You Or Have You Ever Used Smokeless Tobacco? Never Used Smokeless Tobacco Information not available 08/04/2019 How Much Tobacco Do You Smoke? No Information not available 08/04/2019 What Types Of Sporting Activities Do You Participate In? Golf [email or web address] Information not available 03/23/2015 General Stress Level Low Information not available 05/06/2020 Do You Feel Stressed (tense, Restless, Nervous, Or Anxious, Or Unable To Sleep At Night)? [id number] Restless Information not available 05/30/2022 Do You Use Any Illicit Or Recreational Drugs? Yes Marijuana Information not available 09/21/2020 Do You Use Sunscreen Routinely? Yes [email or web address] Information not available 03/23/2015 Has Tobacco Cessation Counseling Been Provided? No Information not available 10/31/2020 On What Date Was Tobacco Cessation Counseling Provided? 09/03/2024 Information not available 09/03/2024 Year In School 10 [email or web address] Informatio n not available 05/09/2016 Do You Or Have You Ever Used Any Other Forms Of Tobacco Or Nicotine? No Information not available 09/21/2020 Sex: Male Functional Status Question Answer Note LastModified by Organization D etails LastModified Time Are you able to care for yourself? Yes Information not available 05/06/2020 What is your exercise level? Moderate [email or web address] Information not available 03/23/2015 Mental Status None recorded. Family History Nothing Reported. Medical History Condition Response Other N Atrial Fibrillation N High Blood Pressure N Blood Diseases N Depression N COPD N Blood Clots N Developmental or Behavioral Disorders N Premature N Anxiety Disorder N Muscle, Joint, or Bone Problems N Vision or Eye Problems N Head Injury/Concussion N Acid Reflux (GERD) N Cancer N Stroke N ADHD N Bladder or Kidney Problems N High Cholesterol N Liver Disease N Schizophrenia N Headaches N Ear or Hearing Problems N Thyroid Problems N Kidney or Bladder Problems N GI Problems N Skin Problems N Eating Disorder N Anemia N Constipation N Heart Attack ([place]) N Diabetes Y Bedwetting N Seizures/Epilepsy N Heart Problems/Murmur N Asthma N Allergies N Substance Abuse N Hepatitis N Osteoporosis N Heart Failure N Chicken Pox N Autism Spectrum Disorder (ASD) N Immunizations Vaccine Type Date Status Note Provider Nam e and Address Organization Details Recorded Time Meningococcal MCV4O 6 completed Not Available [facility] 08/08/2019 02:32:35 HPV9 6 completed Not Available [facility] 08/08/2019 02:42:35 Influenza, split virus, quadrivalent, PF 6 completed Not Available [facility] 08/08/2019 02:32:34 Hep B, adolescent or pediatric 0 completed Not Available [facility] 05/07/2023 15:37:51 Hep B, adolescent or pediatric 0 completed Not Available [facility] 05/07/2023 15:37:51 Hep B, adolescent or pediatric 0 completed Not Available [facility] 05/07/2023 15:37:51 DTaP 4 completed Not Available [facility] 05/07/2023 15:37:51 DTaP 0 completed Not Available [facility] 05/07/2023 15:37:51 DTaP 2 completed Not Available [facility] 05/07/2023 15:37:51 DTaP 0 completed Not Available [facility] 05/07/2023 15:37:51 DTaP 0 completed Not Available [facility] 05/07/2023 15:37:51 Hib, unspecified formulation 0 completed Not Available [facility] 05/07/2023 15:37:51 Hib, unspecified formulation 4 completed Not Available [facility] 05/07/2023 15:37:51 Hib, unspecified formulation 0 completed Not Available [facility] 05/07/2023 15:37:51 Hib, unspecified formulation 0 completed Not Available [facility] 05/07/2023 15:37:51 IPV 0 completed Not Available [facility] 05/07/2023 15:37:51 IPV 4 completed Not Available [facility] 05/07/2023 15:37:51 IPV 0 completed Not Available [facility] 05/07/2023 15:37:51 IPV 0 completed Not Available [facility] 05/07/2023 15:37:51 pneumococcal conjugate PCV 7 1 completed Not Available [facility] 05/07/2023 15:37:51 MMR 4 completed Not Available [facility] 05/07/2023 15:37:51 MMR 2 completed Not Available [facility] 05/07/2023 15:37:51 varicella 0 completed Not Available [facility] 05/07/2023 15:37:51 varicella 2 completed Not Available [facility] 05/07/2023 15:37:51 influenza, unspecified formulation 2 completed Not Available [facility] 05/07/2023 15:37:51 influenza, unspecified formulation 0 completed Not Available [facility] 05/07/2023 15:37:51 influenza, unspecified formulation 4 completed Not Available [facility] 05/07/2023 15:37:51 meningococcal MCV4, unspecified formulation 2 completed Not Available [facility] 05/07/2023 15:37:51 Tdap 0 completed Not Available [facility] 05/07/2023 15:37:51 Hep A, ped/adol, 2 dose 6 completed Not Available [facility] 05/07/2023 15:37:51 Hep A, ped/adol, 2 dose 5 completed Not Available [facility] 05/07/2023 15:37:51 HPV, quadrivalent 4 completed Not Available [facility] 05/07/2023 15:37:51 HPV9 5 completed Not Available [facility] 08/08/2019 02:46:07 Past Encounters Encounter ID Performer Location Encounter Start Date Encounter Closed Date Diagnosis/Indication Diagnosis SNOMED-CT Code Diagnosis ICD10 Code Diagnosis Note [id number] KAUR Mckay (Peds) [address] [place] [place] [address] 03/23/2015 11:08:16 03/23/2015 12:29:38 Well child [id number] Routine adolescent care discussed safety and school performanc e discussed healthy weight with diet and exercise Type 1 ignacio betes mellitus 77654207 Routine f/u with endocrinol ogy. Daily BS monitoring . [id number] MD María Mendez (Peds) [address] [place] [address] 05/09/2016 15:46:21 05/09/2016 17:18:51 Well child 749166889 Z00.129 Routine adolescent care discussed safety and school performanc e discussed healthy weight with diet and exercise Type 1 ignacio betes mellitus 49917165 E10.8 Routine f/u with endocrinol ogy. Daily BS monitoring . [id number] Clarissa Osorio MA [facility] [address] [facility] [place] [address] 03/18/2019 11:43:52 03/18/2019 12:43:28 Type 1 diabetes mellitus 95602168 E10.9 [id number] Prashanth Saldana PA-C [facility] [address] [place] [address] 06/09/2019 17:42:26 06/09/2019 18:58:04 Uncontrolled type 1 diabetes mellitus 463864543 E10.65 [id number] Prashanth Saldana PA-C [facility] [address] [place] [address] 08/04/2019 15:54:01 08/04/2019 17:37:44 Low back pain 795666509 M54.5 Backache w ith radiating pain 849633681 M54.04 [id number] Prashanth Saldana PA-C [facility] [address] [place] [address] 11/20/2019 09:29:53 11/20/2019 19:46:46 [id number] Prashanth Saldana PA-C [facility] [address] [place] [address] 05/06/2020 09:37:24 05/06/2020 12:43:22 Type 1 diabetes mellitus 15425828 E10.9 Secondary erectile dysfunction 960150972 N52.8 Mixed hypercholesterolemia and hypertriglyceridemia 153111637 E78.2 [id number] Prashanth Saldana PA-C [facility] [address] [place] [address] 08/02/2020 10:24:01 08/03/2020 08:12:05 Uncontrolled type 1 diabetes mellitus 490519434 E10.65 [id number] Jeaneth Hamm MA [facility] [address] [place] [address] 09/21/2020 10:21:28 09/22/2020 15:52:19 Paresthesia of lower extremity 957386912 R20.2 Gastroesop hageal reflux disease without esophagitis 405627555 K21.9 Low back pain 478547437 M54.5 Gynecomastia 2939795 N62 [id number] SACHIN Mendez [facility] [address] [place] [address] 10/31/2020 14:28:27 11/01/2020 09:28:09 Type 1 diabetes mellitus 85268540 E10.9 Mixed hypercholesterolemia and hypertriglyceridemia 209741929 E78.2 Gastro-eso phageal reflux disease with esophagitis 782368486 K21.00 Viral gastroenteritis 11 2030230 A08.19 [id number] Prashanth Saldana PA-C [facility] [address] [place] [address] 01/10/2021 16:45:57 01/18/2021 07:34:35 [id number] Prashanth Saldana PA-C [facility] [address] [place] [address] 05/09/2021 10:30:53 05/09/2021 11:54:35 Type 1 diabetes mellitus without complication 191403841 E10.9 [id number] Jeaneth Hamm MA [facility] [address] [place] [address] 06/07/2021 16:49:31 06/07/2021 16:56:56 Nausea and vomiting 64175133 R11.2 Javier ordered Diphenhydr amine, was administer ed and pt was advised if didn't help to go to ER, voiced understand ing [id number] Prashanth Saldana PA-C [facility] [address] [place] [address] 11/13/2021 14:35:16 11/13/2021 15:33:50 Type 1 diabetes mellitus 89628666 E10.9 Body mass index 20-24 - normal 567994457 Z68.23 Plantar fasciitis 658123 003 M72.2 [id number] Prashanth Saldana PA-C [facility] [address] [place] [address] 05/30/2022 11:23:14 05/30/2022 12:00:41 Type 1 diabetes mellitus 02576926 E10.9 Diabetic p eripheral neuropathy 503507786 E11.40 Anxiety 57389511 F41.9 Gastroesop hageal reflux disease without esophagitis 026983106 K21.9 Nausea and vomiting 1693 2000 R11.2 Javier ordered Diphenhydr amine, was administer ed and pt was advised if didn't help to go to ER, voiced understand ing Gastropare sis due to type 1 diabetes mellitus 511784779 E10.43 [id number] Prashanth Saldana PA-C [facility] [address] [place] [address] 12/18/2022 14:17:54 12/19/2022 14:24:56 Type 1 diabetes mellitus 45195449 E10.9 Persistent insomnia 1919 54488 G47.09 Mixed anxi ety and depressive disorder 581522866 F41.8 Overweight 453587556 E66 .3 [id number] Prashanth Saldana PA-C [facility] [address] [place] [address] 04/16/2023 15:00:29 04/17/2023 14:26:08 Type 1 diabetes mellitus 33866897 E10.9 Marijuana user 016683772 F12.10 Overweight 213862598 E66 .3 [id number] Jeaneth Hamm MA [facility] [address] [place] [address] 09/03/2024 11:45:12 09/07/2024 14:32:03 Mixed hypercholesterolemia and hypertriglyceridemia 813273822 E78.2 Type 1 ignacio betes mellitus 99444582 E10.9 Body mass index 20-24 - normal 498027457 Z68.23 Health Concerns Section Related Observation LastModified by Organization Detai ls LastModified Time None Recorded Concern Status LastModified by Organization Details LastModified Time None Recorded Advance Directives Directive None Recorded Payers Encounter Date Sequence Insurance Name Policy Number Policy Blankenship Covered Member ID Blankenship Member ID Guarantor Name 11/13/[address] [facility] (MEDICAID HMO) [id number] Peter Shore [id number] Peter Shore 05/30/[address] [facility] (MEDICAID HMO) [id number] Peter Shore [id number] Peter Shore 12/18/[address] [facility] (MEDICAID HMO) [id number] Peter Shore [id number] Peter Shore 04/16/[address] [facility] (MEDICAID HMO) [id number] Peter Shore [id number] Peter Shore 09/03/[address] [facility] (MEDICAID HMO) [id number] Peter Shore [id number] Peter Shore Notes Date Note Type Note Provider Name and Address Organization Details Recorded Time 11/13/2021 text/html follow up on diabetes...also has bilateral temporal swelling that has been present for 3 days...some tenderness and some visual changes...feet are very painful by the end of the night... Prashanth Saldana PA-C Attn: Accounting, [address] [place], [place], [address] [place] [address], [facility] 11/13/2021 15:31:10 05/30/2022 text/html hx of type 1...frequent crashes...hx of gastroparesis...gibson s pain and acidic belching..sugar currently 134...hasnt taken his GERD meds yet... Prashanth Saldana PA-C Attn: Accounting, [address] [place], [place], [address] [place] [address], [facility] 05/30/2022 11:57:53 12/18/2022 text/html says he cannot sleep...watches movies all night...says his stress levels are high...GERD is present....still smokes a lot of weed...says he gets bored and everybody stresses him out without weed Prashanth Saldana PA-C Attn: Accounting, [address] [place], [place], [address] [place] [address], [facility] 12/18/2022 14:47:31 04/16/2023 text/html smoked weed.. to ok a nap ..came in and appears stoned.. (when asked about weed grandmother said no and patient said yes)...reports that he has an upcoming appt with endo in april Prashanth Saldana PA-C Attn: Accounting, [address] [place], [place], [address] [place] [address], [facility] 04/16/2023 15:47:33 09/03/2024 text/html annual check up...says he quit etoh...says he is living healthier..has gained weight...says blood sugars are better...Nay Hamm MA [facility] 09/03/2024 12:18:11
--- OUTSIDE RECORDS SUMMARY | 2024-10-15 20:55 | XMS_ITS | Encounter Summary ---
Author Organization [facility] Address [address] [place] [address] Phone Care Team Providers Care Fisher Trawl Net Name Role Phone Prashanth Saldana Primary Care Provider [phone] Heidi Swift MD Unavailable Reason for Visit * Reason Comments Medication Refill Encounter Details Date Type Department Care Team (Late st Contact Info) Description 08/28/2021 Refill [facility] - Endocrinology - [place] [address] [place] [address] Heidi Swift MD [address] [address] Medication Refill Social History Tobacco Use Types Packs/Day Years Used Date Smoking Tobacco: Never Smokeless Tobacco: Never Alcohol Use Standard Drinks/Week Comments No 0 (1 standard drink = 0.6 oz pur e alcohol) Sexually Active Control Partners Comments Yes Female Sex and Gender Information Value Date Recorded Sex Assigned at Not on file Legal Sex Male 8:12 PM CDT Gender Identity Not on file Sexual Orientation Not on file COVID-19 Exposure Response Date Recorded In the last month, have you been in contact with someone who was confirmed or suspected to have Coronavirus / COVID-19? Yes 08/01/2021 9:49 AM CITIZEN PARTICIPATION SPECIALIST documented as of this encounter Miscellaneous Notes * Telephone Encounter - Eli Jones RN - 08/28/2021 9:00 AM CITIZEN PARTICIPATION SPECIALIST Requested Prescriptions Pending Prescriptions Disp Refills ??? insulin lispro (HumaLOG) 100 UNIT/ML Solution [Pharmacy Med Name: HUMALOG 100 UNIT/ML VIAL] 30 mL 0 Sig: UP TO 100 UNITS/DAY PER INSULIN PUMP SETTINGS Next appt: 09/12/2021 ZEN PARTICIPATION SPECIALIST documented in this encounter Plan of Treatment Not on file documented as of this encounter Visit Diagnoses Not on filedocumented in this encounter Additional Health Concerns Infection Onset Date Last Indicated Resolved Time COVID - 19 04/13/2022 04/13/2022 04/13/2022 10:4 2 AM CDT COVID - 19 05/17/2022 05/17/2022 05/27/2022 12:1 6 AM CDT Respiratory Rule-Out 05/17/2022 05/17/2022 022 12:16 AM CITIZEN PARTICIPATION SPECIALIST COVID - 19 06/27/2022 06/27/2022 07/07/2022 12:1 6 AM CITIZEN PARTICIPATION SPECIALIST Influenza 06/27/2022 06/27/2022 07/04/2022 12:1 6 AM CITIZEN PARTICIPATION SPECIALIST COVID - 19 04/05/2024 04/05/2024 04/05/2024 10:2 0 PM CDT documented as of this encounter Care Teams Fisher Trawl Net Relationship Specialty Start Date End Date Prashanth Saldana PAC [address] [place] [address] PCP - General Physician Director Call 04/03/19 Heidi Swift MD [address] [phone] Consulting Physician Endocrinology 08/09/20 09/23/24 documented as of this encounter
--- OUTSIDE RECORDS SUMMARY | 2024-10-15 20:55 | XMS_ITS | Encounter Summary ---
Author Organization [facility] Address [address] [place] [address] Phone Care Team Providers Care Transportation Aide Name Role Phone Prashanth Saldana Primary Care Provider [phone] Heidi Swift MD Unavailable Reason for Visit * Reason Comments Medication Refill Encounter Details Date Type Department Care Team (Late st Contact Info) Description 07/24/2021 Refill [facility] - Endocrinology - [place] [address] [place] [address] Heidi Swift MD [address] [address] Medication Refill Social History Tobacco [...] or suspected to have Coronavirus / COVID-19? No / Unsure 07/07/2021 3:14 PM FROZEN FOOD DEPARTMENT MANAGER documented as of this encounter Miscellaneous Notes * Telephone Encounter - Eli Jones RN - 07/25/2021 8:10 AM FROZEN FOOD DEPARTMENT MANAGER Requested Prescriptions Pending Prescriptions Disp Refills ??? Continuous Blood Gluc Sensor (Dexcom G6 Sensor) Misc [Pharmacy Med Name: DEXCOM G6 SENSOR] Sig: CHANGE SENSOR EVERY 10 DAYS. Next appt: 08/01/2021 EN FOOD DEPARTMENT MANAGER documented in this encounter Plan of Treatment Not on file documented as of this encounter Visit Diagnoses Diagnosis Type 1 diabetes mellitus without complication (HCC) Type I (juvenile type) diabetes mellitus without mention of complication, not stated as uncontrolled documented in this encounter Additional Health Concerns Infection Onset Date Last Indicated Resolved Time COVID - 19 04/13/2022 04/13/2022 04/13/2022 10:4 2 AM CDT COVID - 19 05/17/2022 05/17/2022 05/27/2022 12:1 6 AM CDT Respiratory Rule-Out 05/17/2022 05/17/2022 022 12:16 AM FROZEN FOOD DEPARTMENT MANAGER COVID - 19 06/27/2022 06/27/2022 07/07/2022 12:1 6 AM FROZEN FOOD DEPARTMENT MANAGER Influenza 06/27/2022 06/27/2022 07/04/2022 12:1 6 AM FROZEN FOOD DEPARTMENT MANAGER COVID - 19 04/05/2024 04/05/2024 04/05/2024 10:2 0 PM CDT documented as of this encounter Care Teams Transportation Aide Relationship Specialty Start Date End Date Prashanth Saldana, [facility] [address] [place] [address] PCP - General Physician Assistant Front Office Manager 04/03/19 Heidi Swift MD [address] [phone] Consulting Physician Endocrinology 08/09/20 09/23/24 documented as of this encounter
--- OUTSIDE RECORDS SUMMARY | 2024-10-15 20:55 | XMS_ITS | Encounter Summary ---
Author Organization [facility] Address [address] [place] [address] Phone Care Team Providers Care Ornamental Ironworking Supervisor Name Role Phone Prashanth Saldana Primary Care Provider [phone] Heidi Swift MD Unavailable Reason for Visit * Reason Comments Medication Refill Encounter Details Date Type Department Care Team (Late st Contact Info) Description 12/27/2021 Refill [facility] - Endocrinology - [place] [address] [place] [address] Heidi Swift MD [address] [address] Medication Refill Social History Tobacco [...] Exposure Response Date Recorded In the last 10 days, have yo u been in contact with someone who was confirmed or suspected to have Coronavirus/COVID-19? No / Unsure 12/25/2021 7:43 PM CDT documented as of this encounter Miscellaneous Notes * Telephone Encounter - Saadia Lawson, [facility] - 12/29/2021 11:37 AM CDT Patient calling requesting refill of: Requested Prescriptions Pending Prescriptions Disp Refills ??? 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 documented in this encounter Plan of Treatment Not on file documented as of this encounter Visit Diagnoses Not on filedocumented in this encounter Additional Health Concerns Infection Onset Date Last Indicated Resolved Time COVID - 19 04/13/2022 04/13/2022 04/13/2022 10:4 2 AM CDT COVID - 19 05/17/2022 05/17/2022 05/27/2022 12:1 6 AM CDT Respiratory Rule-Out 05/17/2022 05/17/2022 022 12:16 AM RESIDENT PHYSICIAN COVID - 19 06/27/2022 06/27/2022 07/07/2022 12:1 6 AM RESIDENT PHYSICIAN Influenza 06/27/2022 06/27/2022 07/04/2022 12:1 6 AM RESIDENT PHYSICIAN COVID - 19 04/05/2024 04/05/2024 04/05/2024 10:2 0 PM CDT documented as of this encounter Care Teams Ornamental Ironworking Supervisor Relationship Specialty Start Date End Date Prashanth Saldana PAC [address] [place] [id number] PCP - General Physician Body Fitter 04/03/19 Heidi Swift MD [address] [phone] Consulting Physician Endocrinology 08/09/20 09/23/24 documented as of this encounter
--- OUTSIDE RECORDS SUMMARY | 2024-10-15 20:55 | XMS_ITS | Clinical Summary ---
Author Organization [facility] Address [address] [place] [address] Phone Care Team Providers Care Silver Spray Worker Name Role Phone Prashanth Saldana Primary Care Provider [phone] Allergies Active Allergy Reactions Criticality Noted Date Comments Haloperidol Shortness of Breath,Anxiety 024 Medications fenofibrate (TRICOR) 145 MG Tablet Take 145 mg by mouth daily. 2 9 Active Insulin Syringe-Needle U-100 (INSULIN SYRINGE .5CC/31GX5/16 ) 31G X 5/16 0.5 ML Misc Three times a day 300 Each 3 9 Active Blood Glucose Monitoring Suppl Device Test four times daily 1 Each 0 Active Lancets Misc Test four times daily 400 Lancet 3 0 Active gabapentin (NEURONTIN) 300 MG Capsule 1 Active Insulin Pen Needle (TechLite Pen Daggett) 31G X 8 MM Misc USE TO INJECT INSULIN 4 TIMES A DAY 400 Pen Needle 3 1 Active metoclopramide (REGLAN) 10 MG Tablet Take 1 Tablet by mouth 4 times daily as needed for Nausea - 2nd line. 10 Tablet 1 Active Continuous Blood Gluc Transmit (Dexcom G6 Transmitter) MiscIndications:T ype 1 diabetes mellitus without complication (HCC) 1 EACH BY DOES NOT APPLY ROUTE EVERY 90 DAYS. CHANGE SENSOR EVERY 90 DAYS. 1 Each 3 2 Active Glucose Blood (My Dog BowlTouch Ultra) Strip TEST FOUR TIMES DAILY 300 Strip 5 2 Active ondansetron (Zofran ODT) 4 MG TABLET DISPERSIBLE Take 1 Tablet by mouth every 8 hours as needed for Nausea - 1st line. 10 Tablet 2 Active Continuous Blood Gluc Fire Alarm Repairer (Dexcom G6 Fire Alarm Repairer) Device USE TO CHECK GLUCOSE 4X DAILY. 1 Each 2 Active Continuous Blood Gluc Sensor (Dexcom G6 Sensor) MiscIndications:T ype 1 diabetes mellitus without complication (HCC) CHANGE SENSOR EVERY 10 DAYS 3 Each 1 2 Active insulin lispro (HumaLOG) 100 UNIT/ML Solution INJECT UP TO 100 UNITS DAILY PER INSULIN PUMP SETTINGS. 30 mL 2 Active busPIRone (BUSPAR) 10 MG Tablet Take 10 mg by mouth 2 times daily. Active rosuvastatin (CRESTOR) 20 MG Tablet Take 20 mg by mouth nightly. 4 Active Continuous Glucose Sensor (Dexcom G7 Sensor) Misc 1 Device by Other route continuous. 4 Active pantoprazole (PROTONIX) 40 MG Tablet Delayed Response Take 1 Tablet by mouth daily. 30 Tablet 4 Active methylPREDNISolon e (MEDROL DOSPACK) 4 MG Tablet Therapy Pack See product package insert for dosing schedule 21 Tablet 5 Active Active Problems Problem Noted Date Diagnosed Date Hypophosphatemia 04/06/2024 Elevated lactic acid level 04/06/2024 Type 1 diabetes mellitus 04/06/2024 Flank pain 04/06/2024 Prolonged Q-T interval on ECG 04/06/2024 Anxiety 04/06/2024 Leukocytosis 03/27/2023 Gastroparesis 03/27/2023 Diabetic ketoacidosis withou t coma associated with type 1 diabetes mellitus 10/25/2020 JACK (acute kidney injury) 10/25/2020 Diabetic neuropathy associat ed with type 1 diabetes mellitus 10/25/2020 Dehydration 10/25/2020 Nausea and vomiting 10/25/2020 Diarrhea 10/25/2020 Non-compliance 10/09/2019 Muscle spasm 09/17/2019 Type 1 diabetes mellitus with ketoacidosis 07/23 Hypoglycemia 07/08/2019 Dyslipidemia 07/08/2019 Hypertension 06/23/2019 Hyponatremia 06/23/2019 Hypokalemia 06/23/2019 Type 1 diabetes mellitus without complication Hypertriglyceridemia 05/07/2019 Encounters Date Type Department Care Team Description 08/20/2024 4:25 AM DISABILITY ADVOCATE - 08/20/2024 5:07 AM DISABILITY ADVOCATE Emergency [facility] Emergency [address] [place] [address] Dawson Burr MD Eustachian tube dysfunction, left Discharge Disposition: Discharged to home or Selfcare 08/20/2024 Travel from Last 3 Months Immunizations Immunization Administration Dates Next Due DTAP VACCINE 09/08/2003, 2,03/13/2000,01/09,1999 HEP B/HIB Combined Vaccine 03/13/2000,1999 Hepatitis A Vaccine, Pediatric/adolescent, 2 Dose Schedule 02/06/2006,03/15/2005 Hepatitis A, Pediatric, Unsp ecified Formulation 04/21/2010 Hepatitis B Vaccine, Pediatric/adolescent 1999 Hib Vaccine,unspecified Formulation 09/08/2003,0 08/18/2001,01/10/2000 Human Papillomavirus (HPV) 9 -valent Vaccine 05/09/2016,03/23/2015 Human Papillomavirus Vaccine (HPV), quadrivalent 05/27/2014 Inactivated Polio Vaccine 09/08/2003,,01/10/2000,10/31 Influenza Vaccine, Quadrivalent, PF 05/09/2016,1 07/27/2013 Influenza Vaccine,unspecifie d Formulation 04/17/2012,04/21/2010 MMR Vaccine 09/08/2003,08/18/2001 Meningococcal MCV4, Unspecif ied Formulation 04/17/2012 Meningococcal MCV4O 05/09/2016 Pneumococcal Vaccine Peds - 7 Valent 10/24/2000 TDAP Vaccine 04/21/2010 Varicella Vaccine Live 04/21/2010,06/01/2002 Family History Medical History Relation Name Comments No Known Problems Brother No Known Problems Father No Known Problems Mother No Known Problems Sister 1 No Known Problems Sister 2 No Known Problems Sister 3 No Known Problems Sister 4 No Known Problems Sister 5 No Known Problems Sister 6 No Known Problems Sister 7 Relation Name Status Comments Brother Alive Father Alive Mother Alive Sister 1 Alive Sister 2 Alive Sister 3 Alive Sister 4 Alive Sister 5 Alive Sister 6 Alive Sister 7 Alive Social History Tobacco Use Types Packs/Day Years Used Date Smoking Tobacco: Never Smokeless Tobacco: Never Tobacco Cessation:Counseling Given: No Alcohol Use Standard Drinks/Week Comments No 0 (1 standard drink = 0.6 oz pur e alcohol) [facility] Utilities Answer Date Recorded In the past 12 months has th e electric, gas, oil, or water company threatened to shut off services in your home? No 04/05/2024 Social Connection and Isolat ion Panel [NHANES] Answer Date Recorded In a typical week, how many times do you talk on the phone with family, friends, or neighbors? More than three times a week 12/07/2023 How often do you get togethe r with friends or relatives? More than three times a week 12/07/2023 How often do you attend chur ch or lutheran services? Never 12/07/2023 Do you belong to any clubs o r organizations such as mandaen groups, unions, fraternal or athletic groups, or school groups? No 12/07/2023 How often do you attend meet ings of the clubs or organizations you belong to? Never 12/07/2023 Are you , , di vorced, , never , or living with a partner? Never 12/07/2023 AUDIT-C Answer Date Recorded Q1: How often do you have a drink containing alcohol? Never 12/07/2023 Q2: How many drinks containi ng alcohol do you have on a typical day when you are drinking? Patient does not drink Q3: How often do you have si x or more drinks on one occasion? Never 12/07/2023 Overall Financial Resource Strain (CARDIA) Answe r Date Recorded How hard is it for you to pa y for the very basics like food, housing, medical care, and heating? Somewhat hard 12/07/2023 [facility] [place] [facility] Occupat ional Health - Occupational Stress Questionnaire Answer Date Recorded Do you feel stress - tense, restless, nervous, or anxious, or unable to sleep at night because your mind is troubled all the time - these days? To some extent 12/07/2023 Exercise Vital Sign Answer Date Recorde d On average, how many days pe r week do you engage in moderate to strenuous exercise (like a brisk walk)? 5 days 12/07/2023 On average, how many minutes do you engage in exercise at this level? 60 min 12/07/2023 Hunger Vital Sign Answer Date Recorded Within the past 12 months, y ou worried that your food would run out before you got the money to buy more. Never true 04/05/20 Within the past 12 months, t he food you bought just didn't last and you didn't have money to get more. Never true 04/05/2024 PRAPARE - Transportation Answer Date Re corded In the past 12 months, has l ack of transportation kept you from medical appointments or from getting medications? No 03/22 In the past 12 months, has l ack of transportation kept you from meetings, work, or from getting things needed for daily living? No 04/05/2024 Housing Stability Vital Sign Answer Eloy e Recorded In the last 12 months, was t here a time when you were not able to pay the mortgage or rent on time? Patient declined 12/07/19 In the last 12 months, how many places have you lived? 2 12/07/2023 In the last 12 months, was t here a time when you did not have a steady place to sleep or slept in a detention (including now)? No 12/07/2023 Housing Stability Vital Sign Answer Eloy e Recorded In the last 12 months, was t here a time when you were not able to pay the mortgage or rent on time? No 04/05/2024 In the past 12 months, how m any times have you moved where you were living? 1 04/05/2024 At any time in the past 12 m [facility], were you homeless or living in a detention (including now)? No 04/05/2024 Sexually Active Control Partners Comments Yes Female Sex and Gender Information Value Date Recorded Sex Assigned at Not on file Legal Sex Male 8:12 PM CDT Gender Identity Not on file Sexual Orientation Not on file Last Filed Vital Signs Vital Sign Reading Time Taken Comments Blood Pressure 150/93 08/20/2024 4:45 AM DISABILITY ADVOCATE Pulse 79 08/20/2024 4:45 AM DISABILITY ADVOCATE Temperature 35.9 C (96.7 F) 08/20/2024 4:29 AM DISABILITY ADVOCATE Respiratory Rate 17 08/20/2024 4:29 AM DISABILITY ADVOCATE Oxygen Saturation 100% 08/20/2024 4:45 AM DISABILITY ADVOCATE Inhaled Oxygen Concentration - - Weight 75.8 kg (167 lb 1.7 oz) 08/20/2024 4:29 A M DISABILITY ADVOCATE Height 167.6 cm (5' 6 ) 08/20/2024 4:29 AM DISABILITY ADVOCATE Body Mass Index 26.97 08/20/2024 4:29 AM DISABILITY ADVOCATE Plan of Treatment Health Maintenance Due Date Last Done Comments Diabetes: Celiac Disease Screening 1999 Diabetes: Eye Exam 1999 Diabetes: Foot Exam 1999 Diabetes: Thyroid Stimulating Hormone (TSH) Screening 1999 Hepatitis C Virus (HCV) Screening 1999 Pneumococcal Immunization Combined (1 of 2 - PCV) 2018 10/24/2000 DTaP/Tdap/Td Immunization (7 - Td or Tdap) 04/21/2020 04/21/2010, 09/08/2003, 08/18/2001, Additional history exists Diabetes: Lipid Screening 07/10/2023 07/10/2022, 10/2018 Influenza Immunization (#1) 03/22/202404/21, 05/27/2014, 04/17/2012, Additional history exists SARS-COV-2 Immunization ( season) 2024 Diabetes: Nephropathy Screening 12/06/2024 12/07/2023, 03/26/2023, 03/26/2023, Additional history exists Diabetes: Hemoglobin A1c 03/03/2025 025, 04/05/2024, 02/12/2024, Additional history exists Respiratory Syncytial Virus (RSV) Immunization (Adult) (1 - 1-dose 75+ series) 2074 Hepatitis B Immunization Completed 000, 03/13/2000, 1999, Additional history exists Human Papillomavirus (HPV) Immunization Completed 05/09/2016, 03/23/2015, 05/27/2014 Meningococcal Immunization (ACWY) Completed 05/09/2016, 04/17/2012 Rotavirus Immunization Aged Out No lo nger eligible based on patient's age to complete this topic Procedures Procedure Name Priority Date/Time Associated Diagnosis Comments HEMOGLOBIN A1C W/ ESTIMATED GLUCOSE STAT 04/05/2024 4:39 PM CDT CMP (COMPREHENSIVE METABOLIC PANEL) STAT 12/07/2023 10:48 AM CDT LIPID PANEL Routine 06/24/2019 5:44 AM DISABILITY ADVOCATE from Last 3 Months or Most Recently Relevant to Health Maintenance Results * (ABNORMAL) Hemoglobin A1C (04/05/2024 4:39 PM CDT) HGB-A1C 10.4(H) 4.0 - 6.0 % 04/05/2024 5:05 PM CDT [facility] Est Average Glucose 251.8 mg/dL 04/05/2024 5:05 PM CDT [facility] Blood Venipuncture / Unknown 04/05/2024 4:39 PM CDT 04/05/2024 4:39 PM CDT Narrative [facility] - 04/05/2024 5:05 PM CDT HEMOGLOBIN A1C: DIABETIC PATIENTS: WELL-CONTROLLED: 6.2 - 7.0 INTERMEDIATE WELL-CONTROLLED: 7.0 - 9.0 POORLY-CONTROLLED: >9.0 us Ruth Ann Tejada APRN, CNP CHEMISTRY ORDERABLES Final Result [facility] [address] [place] [address] * (ABNORMAL) Comprehensive Metabolic Panel (Cmp) [id number] (12/07/2023 10:48 AM CDT) SODIUM 130(L) 136 - 145 mmol/L 12/07/2023 12:06 PM CDT [facility] POTASSIUM 3.4(L) 3.5 - 5.1 mmol/L 12/07/2023 12:06 PM CDT [facility] CHLORIDE 77(L) 98 - 107 mmol/L 12/07/2023 12:06 PM CDT [facility] CO2, VENOUS 23 22 - 30 mmol/L 12/07/2023 12:06 PM T [facility] ANION GAP 33.4(H) <18.0 mmol/L 12/07/2023 12:06 PM T [facility] GLUCOSE 377(H) 70 - 99 mg/dL 12/07/2023 12:06 PM T [facility] BUN 48(H) 9 - 21 mg/dL 12/07/2023 12:06 PM T [facility] CREATININE, BLOOD 2.80(H) 0.70 - 1.30 mg/dL 12/07/2023 12:06 PM T [facility] BUN/CREATININE RATIO 17 12 - 20 ratio 12/07/2023 12:06 PM [facility] TOTAL PROTEIN 8.4(H) 6.3 - 8.2 g/dL 12/07/2023 12:06 PM [facility] ALBUMIN 4.7 3.5 - 5.0 g/dL 12/07/2023 12:06 PM T [facility] A/G RATIO 1.3 1.0 - 2.2 12/07/2023 12:06 PM [facility] CALCIUM 9.3 8.7 - 10.5 mg/dL 12/07/2023 12:06 PM [facility] T BILI 1.1 0.2 - 1.2 mg/dL 12/07/2023 12:06 PM [facility] SGOT (AST) 32 5 - 34 U/L 12/07/2023 12:06 PM [facility] SGPT (ALT) 41 0 - 55 U/L 12/07/2023 12:06 PM [facility] ALKALINE PHOSPHATASE 115 40 - 150 U/L 12/07/2023 12:06 PM [facility] GFR, ESTIMATED 31(L) >=60 12/07/2023 12:06 PM [facility] Comment: Creatinine Clearance is the preferred criteria for selecting drug dose adjustments in renally impaired patients. The GFR is provided as additional pertinent clinical information. GFR is reported in mL/min/1.73 sq m. Calculation based on the Chronic Kidney Disease Epidemiology Collaboration (CKD- EPI) equation refit without adjustment for race. GFR, EST. 34(L) >=60 024 12:06 PM CDT [facility] GFR, EST. NONAFRICAN 28(L) >=60 12/07/2023 12:06 PM CDT [facility] Blood Venipuncture / Unknown 12/07/2023 10:48 AM CDT 12/07/2023 11:36 AM CDT Andres Peralta APRN, CNP CHEMISTRY ORDERABLES Fi nal Result [facility] [address] [place] [address] * (ABNORMAL) Lipid Panel AM (06/24/2019 5:44 AM DISABILITY ADVOCATE) CHOLESTEROL 141 <=200 mg/dL 06/24/2019 1:58 PM DISABILITY ADVOCATE [facility] TRIGLYCERIDES 158(H) <150 mg/dL 06/24/2019 1:58 PM DISABILITY ADVOCATE [facility] HDL CHOLESTEROL 30.4(L) >40 mg/dL 9 1:58 PM DISABILITY ADVOCATE [facility] LDL 79 5 - 130 mg/dL 06/24/2019 1:58 PM DISABILITY ADVOCATE [facility] VLDL 32 5 - 55 mg/dL 06/24/2019 1:58 PM DISABILITY ADVOCATE [facility] CHOL/HDL RATIO 4.6(H) 0.0 - 4.4 06/24/2019 1:58 PM DISABILITY ADVOCATE [facility] NON-HDL CHOLESTEROL 110.6 <130 mg/dL 06/24/2019 1:58 PM DISABILITY ADVOCATE [facility] LIPID FASTING 06/24/2019 1:58 PM DISABILITY ADVOCATE [facility] Blood specimen (specimen) BLOOD SPECIMEN / Unknown Venipuncture / Unknown 06/24/2019 5:44 AM DISABILITY ADVOCATE 06/24/2019 1:10 PM DISABILITY ADVOCATE Toni Orourke MD CHEMISTRY ORDERABLES Fin al Result [facility] [address] [place] [address] from Last 3 Months or Most Recently Relevant to Health Maintenance Insurance MEDICAID F[place] MEDICAID [place]ER Advance Directives * Full Code (Latest Code Status on File) Date Activated Date Inactivated Comments 04/05/2024 7:29 PM CPR-Full Treat ment: FULL ARREST: Attempt Resuscitation/CPR wit intubation and mechanical ventilation. PRE-ARREST: Use entire range of life support measures to stabilize the patient. * Full Code Date Activated Date Inactivated Comments 12/07/2023 2:23 PM 12/07/2023 7:29 PM CPR-Full [place] atment: FULL ARREST: Attempt Resuscitation/CPR wit intubation and mechanical ventilation. PRE-ARREST: Use entire range of life support measures to stabilize the patient. * Full Code Date Activated Date Inactivated Comments 03/26/2023 10:31 PM 03/27/2023 2:48 PM CPR-Full [place] tment: FULL ARREST: Attempt Resuscitation/CPR wit intubation and mechanical ventilation. PRE-ARREST: Use entire range of life support measures to stabilize the patient. * Full Code Date Activated Date Inactivated Comments 10/25/2020 2:17 AM 10/26/2020 1:42 PM CPR-Full Treat ment: FULL ARREST: Attempt Resuscitation/CPR wit intubation and mechanical ventilation. PRE-ARREST: Use entire range of life support measures to stabilize the patient. * Full Code Date Activated Date Inactivated Comments 01/17/2020 5:32 AM 01/17/2020 5:58 PM CPR-Full West atment: FULL ARREST: Attempt Resuscitation/CPR wit intubation and mechanical ventilation. PRE-ARREST: Use entire range of life support measures to stabilize the patient. Care Teams Silver Spray Worker Relationship Specialty Start Date End Date Prashanth Saldana, LINNETTE [address] [place] [id number] PCP - General Physician Houseman 04/03/19
--- OUTSIDE RECORDS SUMMARY | 2024-10-15 20:55 | XMS_ITS | Referral Summary ---
Author Organization [facility] Address [address] [place] [address] Care Team Providers Care Chest Painting Leader Name Role Phone Con Beltrán MD Unavailable [phone] Prashanth Saldana Primary Care Provider [phone] Sidney Russell MD Unavailable [phone] Allergies Active Allergy Reactions Criticality Noted Date Comments Haloperidol Nausea & Vomiting Low 02/12/2024 Medications metoclopramide (REGLAN) 10 mg tablet Take 1 tablet (10 mg total) by mouth 4 (four) times a day Active omeprazole (PriLOSEC) 20 mg capsule Take 1 capsule (20 mg total) by mouth daily Active famotidine (PEPCID) 20 mg tablet Take 1 tablet (20 mg total) by mouth 2 (two) times a day Active gabapentin (NEURONTIN) 300 mg capsule Take 1 capsule (300 mg total) by mouth 2 (two) times a day Active nortriptyline (PAMELOR) 25 mg capsule Take 1 capsule (25 mg total) by mouth nightly 30 capsule 1 Active naproxen (NAPROSYN) 500 mg tablet Take 1 tablet (500 mg total) by mouth 2 (two) times a day 2 Active Compro 25 mg suppository INSERT 1 SUPPOSITORY TWICE A DAY RECTALLY NEEDED. 2 Active ondansetron (ZOFRAN) 4 mg tablet TAKE 1-2 TABLETS BY MOUTH EVERY 8 HOURS NEEDED FOR NAUSEA - 1ST LINE. 2 Active busPIRone (BUSPAR) 10 mg tablet 3 Active blood-glucose meter kit Use daily as directed for monitoring of blood sugar for diabetes e10.65 1 kit 1 3 Active lancets misc 1 each by other route 3 (three) times a day before meals E10.65 100 each 11 3 Active insulin glargine 100 unit/mL (3 mL) pen for injection Inject 13 Units under the skin daily E10.65 use for insulin pump faillure. Pump has failed. 15 mL 11 3 Active pen needle, diabetic 32 gauge x needle Use to inject insulin daily. E10.65 50 each 11 3 Active blood glucose diagnostic (OneTouch Ultra Test) strip CHECK BLOOD SUGAR 3 TIMES DAILY OR DIRECTED 100 strip 11 4 Active penicillin v potassium (VEETID) 500 mg tablet Take 1 tablet (500 mg total) by mouth 3 (three) times a day 30 tablet 4 Active traMADoL (ULTRAM) 50 mg tablet Take 1 tablet (50 mg total) by mouth every 6 (six) hours as needed for pain for up to 15 days 15 tablet 4 Active Dexcom G7 Sensor device 1 Device continuously . Change every 10 days. E11.65 10 each 3 4 Active rosuvastatin (CRESTOR) 20 mg tablet Take 1 tablet (20 mg total) by mouth nightly 90 tablet 4 4 Active Dexcom G6 Transmitter device APPLY NEW TRANSMITTER EVERY 90 DAYS 1 each 4 4 Active insulin lispro (HumaLOG) 100 unit/mL vial for injection INJECT UP TO 100 UNITS DAILY PER INSULIN PUMP SETTINGS 30 mL 4 4 Active Active Problems Problem Noted Date Diagnosed Date Tandem T slim Insulin pump in place 04/04/2022 Assessment & Plan (02/12/2024 2:22 PM CDT): This is a chronic condition which is worsening and not at goal. Download reviewed from 01/30/24 to 02/12/24 Type of insulin pump- tandem T slim with humalog insulin. Pump settings Basal 0000-1.25 ISF 30 Active insulin time 5hrs. TARGET GLUCOSE 120 Avg Total daily insulin-53 units basal -28 units- 53 % bolus -25 units- 47 % Interpretation- lack of bolusing, Average blood sugar-217. Lowest blood sugar-57 highest-400. In target-48%. Hypoglycemia-1%, hyperglycemia 51% . Assessment & Plan (05/07/2023 2:34 PM CDT): This is a chronic condition which is worsening and not at goal. Download reviewed. Type of insulin pump- tandem T slim with humalog insulin 04/24/2023 to 05/07/2023 Pump settings Basal 0000-1.0, 0300-1.2, 0800-0.9, 1900-1.2. .IC 8 ISF 30 Active insulin time 4hrs. TARGET GLUCOSE 120 Avg Total daily insulin-52 units basal -23 units- 44 % food bolus - 7units- 24% Correction bolus - 0 units- 0% Control-IQ auto bolus- 20 units- 69% Interpretation- lack of bolusing, Average blood sugar-235. Lowest blood sugar-57 highest-400. In target-24%. Hypoglycemia-35%, hyperglycemia 40% . Assessment & Plan (02/05/2023 6:01 PM CDT): This is a chronic condition which is worsening and not at goal. Download reviewed. Type of insulin pump- tandem T slim with humalog insulin 01/22/2023 to 02/04/2023 Pump settings Basal 0000-0.8, 0300-1.0, 0800-0.7, 1900-0.8. .IC 8 ISF 30 Active insulin time 4hrs. TARGET GLUCOSE 120 Avg Total daily insulin-24 units basal -14 units-57 % food bolus - 0units- 0% Correction bolus - 0.28 units- 1% Control-IQ auto bolus- 10 units- 42% Interpretation- lack of bolusing, lack of wearing pump. Average blood sugar-234. Lowest blood sugar-57 highest-400. In target- 48%. Hypoglycemia-0%, hyperglycemia 52% Assist the patient in contacting tandem to get a replacement pump. . Assessment & Plan (10/09/2022 2:05 PM CDT): This is a chronic condition which is worsening and not at goal. Download reviewed. Type of insulin pump- tandem T slim with humalog insulin 09/25/2022 to 10/08/2022 Pump settings Basal 0000-0.8, 0300-1.0, 0800-0.7, 1900-0.8. .IC 8 ISF 30 Active insulin time 4hrs. TARGET GLUCOSE 120 Avg Total daily insulin-54units basal -21 units-39% food bolus - 2 units- 3% Correction bolus - 2 units- 3% Control-IQ auto bolus- 30 units- 54% Interpretation- lack of bolusing. Average blood sugar-243. Lowest blood sugar-40 highest-400. In target- 33%. Hypoglycemia-2%-less than 70. . Assessment & Plan (07/10/2022 9:22 AM ADJUNCT INSTRUCTOR IN ECONOMICS): This is a chronic condition which is not at goal. Unable to Download as he has a new pump and is not connected on [employer]. Type of insulin pump- tandem T slim with humalog insulin Pump settings Basal 0000-1.0, 0800-0.7, 1900-1.0 .IC 8 ISF 30 Active insulin time 4hrs. TARGET GLUCOSE 120 Avg Total daily insulin-47units Avg daily basal -23.5 units-49% Avg daily bolus -22units-45.3% . Assessment & Plan (04/04/2022 1:20 PM CDT): This is a chronic condition which is not at goal. Download reviewed. Type of insulin pump- tandem T slim with humalog insulin Pump settings from 03/21/2022 to 04/03/2022 Basal 0000-1.0, 0800-0.7, 1900-1.0 .IC 8 ISF 30 Active insulin time 4hrs. TARGET GLUCOSE 120 Avg Total daily insulin-43 units Avg daily basal -22 units- 52% Avg daily bolus -11 units-49% Continuous glucose monitor (cgm) applied from 03/21/2022 to 04/03/2022 This device was placed for monitor and treatment of blood sugar. Interpretation of data- in target 11%. Lowest blood sugar 50, highest blood sugar 400. Average 268, above target 78% of the time. Settings adjusted . Cyclical vomiting 04/04/2021 Overview (04/04/2022): Previous sucessful treatment- 2 liters of saline, IV zofran, IV reglan and IV Toradol. Diabetic neuropathy associat ed with type 1 diabetes mellitus 10/25/2020 Moderate malnutrition 10/30/2019 Hypoglycemia 07/08/2019 Marijuana smoker 04/17/2019 Type 1 diabetes mellitus with hyperglycemia 01/2018 Assessment & Plan (02/12/2024 2:19 PM CDT): This is a chronic condition which is uncontrolled, stable but not at goal. Goal is less than 7%. Personally reviewed most recent A1c - Lab Results Component Value Date HGBA1C 9.8 02/12/2024 Personally reviewed POC blood sugar- at goal of 80-180 Lab Results Component Value Date POCGLU 145 02/12/2024 Medication- continue Tandem T slim insulin pump with Dexcom sensor with Humalog insulin. settings adjusted 0000-1.25. Correction factors 30, carb ratios 8, target BG 120 Encouraged to upgrade to dexcom 7. Encouraged to upgrade tandem tslim insulin pump. Monitor blood sugar continuously with cgm. Encouraged annual eye exam. Monofilament foot exam completed. Protective senses intact. Treated with Gabapentin Personally reviewed CMP eGFR- 154 Kidney function-normal Urine microalbumin/creatinine ratio - needed. Goal is <30. not treated with NICOLE/ARB B/P today- at goal . Goal is <140/90. Personally reviewed lipid panel. Not at goal. Goal is less than 70. Not on statin therapy. Assessment & Plan (05/07/2023 2:31 PM CDT): This is a chronic condition which is out of control improving not at goal of less than 7%. Encouraged to get his annual labs completed. States he can not do it today as to go get something from his cousin but he will do it tomorrow. Personally reviewed most recent A1c - Lab Results Component Value Date HGBA1C 11.3 02/05/2023 Personally reviewed POC blood sugar- not at goal 80-180 Lab Results Component Value Date POCGLU 287 02/05/2023 Medication- Continue Tandem T slim insulin pump with Dexcom sensor with Humalog insulin. 0000-1.0, 0300-1.2, 0800-0.9, 1900-1.0. Correction factors 30, carb ratios 8, target BG 12 Monitor blood sugar continuously with dexcom 6 sensor. Encouraged annual eye exam. Monofilament foot exam completed. protective senses intact Treated with Gabapentin Personally reviewed CMP eGFR- 154 Kidney function- normal Urine microalbumin/creatinine ratio - not at goal <30 not treated with NICOLE/ARB B/P today- at goal of <140/90. Personally reviewed lipid panel. Not at Goal of less than 70. Assessment & Plan (02/05/2023 5:59 PM CDT): This is a chronic condition which is out of control, worsening not at goal of less than 7%. Personally reviewed most recent A1c - Lab Results Component Value Date HGBA1C 11.3 02/05/2023 Personally reviewed POC blood sugar- not at goal 80-180 Lab Results Component Value Date POCGLU 287 02/05/2023 Medication- Continue Tandem T slim insulin pump with Dexcom sensor with Humalog insulin. settings adjusted 0000-0.8, 0300-1.0, 0800-0.7, 1900-0.8. Correction factors 30, carb ratios 8, target BG 120 Monitor blood sugar continuously with Dexcom 6 sensor. Encouraged annual eye exam. Monofilament foot exam completed. protective senses intact Treated with gabapentin Personally reviewed CMP eGFR- 154 Kidney function- normal Urine microalbumin/creatinine ratio - at goal <30 not treated with NICOLE/ARB B/P today- at goal of <140/90. Personally reviewed lipid panel. Not at Goal of less than 70. Encouraged to contact [employer] and have a new pump shipped Discussed the importance of taking insulin and basal bolus insulin was ordered According to his download he is had the pump on about 6/14 days Hopefully he will reestablish is pump and returned to using this helpful device Assessment & Plan (10/09/2022 1:58 PM CDT): This is a chronic condition which is poorly controlled, worsening not at goal of less than 7%. Personally reviewed most recent A1c - Lab Results Component Value Date HGBA1C 9.2 10/09/2022 Personally reviewed POC blood sugar- not at goal 80-180 Lab Results Component Value Date POCGLU 250 10/09/2022 Medication- Continue tandem insulin pump settings Monitor blood sugar continuously with Dexcom 6 sensor. Encouraged annual eye exam. Monofilament foot exam completed, protective senses intact-reports numbness tingling in feet Urine microalbumin/creatinine ratio - at goal <30. not treated with NICOLE/ARB Personally reviewed CMP, GFR- 154. Kidney function- normal B/P today- at goal of <140/90, Not on NICOLE/ARB Personally reviewed lipid panel. LDL, Direct, POC 0 - 129 mg/dL 96 Not at Goal of less than 70. Not on statin Assessment & Plan (07/10/2022 9:19 AM ADJUNCT INSTRUCTOR IN ECONOMICS): This is a chronic condition which is not at goal. Personally reviewed most recent A1c - Lab Results Component Value Date HGBA1C 8.5 07/10/2022 goal less than 7% Personally reviewed POC blood sugar- 101, at goal 80-180 Medication- Continue tandem insulin pump settings Monitor blood sugar continuously with sensor. Encouraged annual eye exam. Monofilament foot exam completed, protective senses intact-reports numbness tingling in feet Urine microalbumin/creatinine ratio - at goal <30. not treated with NICOLE/ARB Personally reviewed BUN, creatinine, GFR- Kidney function- normal B/P today- at goal of <140/90, Not on NICOLE/ARB Personally reviewed lipid panel. LDL, Direct, POC 0 - 129 mg/dL 96 Not at Goal of less than 70. Not on statin Assessment & Plan (04/04/2022 1:14 PM CDT): This is a chronic condition which is not at goal. Personally reviewed most recent A1c - Lab Results Component Value Date HGBA1C 8.7 04/04/2022 goal less than 7% Personally reviewed POC blood sugar- 417 not at goal 80-180 Medication- Continue tandem insulin pump settings adjusted Monitor blood sugar continuously with sensor. Encouraged annual eye exam. Monofilament foot exam completed, protective senses intact-reports numbness tingling in feet Urine microalbumin/creatinine ratio - at goal <30. not treated with NICOLE/ARB Personally reviewed BUN, creatinine, GFR- Kidney function- normal, abnormal B/P today- at goal / not at goal. Goal is <140/90, continue on NICOLE/ARB Personally reviewed lipid panel. Not at Goal of less than 70. Not on statin Assessment & Plan (10/30/2019 4:28 PM CDT): A1C: 11.3, uncontrolled. BMI: 19.47. uses Dexcom G6 at home. He was seen in [facility], but missed appointment in the adult diabetes clinic this year Home: lantus 30 units, ICR 07/26,07/29, S: 07/26. I suspect non med compliance. Hospital: currently on 0.5 units/hr with well control of BG 120-170 mg/dL. In the last 7 hr, he has required 3 units of insulin while NPO. His basal insulin requirements since admission are much less than what he was prescribed to take at home, which may support a potential non-compliance with his insulin at home. His AG was closed and feels much better this morning. Recommend to change to basal- bolus regimen. Plan: - NPH 5 units q 8hr, stop drip 2 hours after NPH is given - H 6 units TIDAC - LDSS Discharge: - Basal-bolus regimen - follow up in endocrine clinic. Junior Hernandez MD Endocrinology Fellow Assessment & Plan (12/28/2017 8:07 AM CDT): Type 1 DM. Present on admission. Plan: -Endocrinology consulted -Lantus 27 U qHS -Humalog: -Correction factor: 25 -Carb correction 1u/5g -BG target: 100 daytime, 120 nighttime -Ketones qvoid -QID POCT glucose Assessment & Plan (12/27/2017 4:51 PM CDT): Peter has been poorly controlled and poorly compliant with his therapy and has multiple comorbidities. We did commend him on managing his diabetes during this illness appropriately (checking ketones, calling our office, staying out of DKA). 1. Check BG q AC/HS, and 0200. If not eating, please check q 4 hours. 2. Continue Lantus 27 units once daily at bedtime 3. Continue Humalog: Target daytime: 100; Target bedtime: 120 Hyperglycemia correction factor: 25 Carb ratio for all meals/snacks: 1 unit per 5g CHO 4. Check for urine ketones qvoid 5. Will need endocrine follow up in adult transition clinic 6. Please obtain HbA1c and urine microalbumin/creatinine ratio Assessment & Plan (12/27/2017 7:57 AM CDT): Type 1 DM. Present on admission. Plan: -Endocrinology consulted -Lantus 27 U qHS -Humalog: -Correction factor: 25 -Carb correction 1u/5g -BG target: 100 daytime, 120 nighttime -Ketones qvoid -QID POCT glucose Assessment & Plan (12/26/2017 3:42 PM CDT): Type 1 DM. Present on admission. Plan: -Endocrinology consulted -Lantus 27 U qHS -Humalog: -Correction factor: 25 -Carb correction 1u/5g -BG target: 100 daytime, 120 nighttime -Ketones qvoid -QID POCT glucose Assessment & Plan (12/26/2017 3:26 PM CDT): Type 1 DM. Present on admission. Plan: -Endocrinology consulted -Lantus 27 U qHS -Humalog: -Correction factor: 25 -Carb correction 1u/5g -BG target: 100 daytime, 120 nighttime -Ketones qvoid -QID POCT glucose Nonadherence to medication 10/04/2015 Systolic murmur 10/04/2015 Mixed hyperlipidemia Assessment & Plan (05/07/2023 2:31 PM CDT): This is a chronic condition which is not at goal of LDL less than 70 not on statin therapy Encouraged to eat healthy, include fresh fruits and vegetables daily and avoid eating fried foods more than once per week. Encouraged to take medications as prescribed. Encouraged repeat lab Assessment & Plan (04/04/2022 1:15 PM CDT): This is a chronic condition which is not at goal. Goal is less than 70. Personally reviewed lipid panel. Lab Results Component Value Date LDLCALC 117 04/05/2021 Encouraged to eat healthy, include fresh fruits and vegetables daily and avoid eating fried foods more than once per week. Encouraged to take medications as prescribed. Assessment & Plan (08/04/2020 3:50 AM ADJUNCT INSTRUCTOR IN ECONOMICS): H/o pancreatitis attributed to hypertriglyceridemia. TGs 215 on 05/27/20. -Continue home fenofibrate and atorvastatin Resolved Problems Problem Noted Date Diagnosed Date Resolved Date Leukocytosis 04/18/2021 04/04/2022 Gallbladder sludge 04/05/2021 Marijuana abuse 04/05/2021 04/04/2022 JACK (acute kidney injury) ([facility]) 10/25/2020 04/04/2022 Diarrhea 10/25/2020 04/04/2022 Hypokalemia 08/04/2020 04/04/2022 Assessment & Plan (08/04/2020 3:59 AM ADJUNCT INSTRUCTOR IN ECONOMICS): K to 3.2 after hyperglycemia protocol s/p 40 mEq of IV K in ED. -CTM w/ BMP Nausea and vomiting 07/05/2020 04/04/20 22 Assessment & Plan (08/04/2020 4:10 AM ADJUNCT INSTRUCTOR IN ECONOMICS): Patient has chronic N/V, now presenting w/ 3 days of persistent N/V. No abdominal pain. Lipase 15 on presentation. +MJ use. DDx: cyclic vomiting vs. diabetic gastroparesis. -Zofran prn -Pepcid -Can trial Reglan -Encourage MJ cessation Assessment & Plan (07/05/2020 4:24 PM ADJUNCT INSTRUCTOR IN ECONOMICS): Etiology likely DKA. Other considerations are PUD or esophagitis given that recent CT abdomen findings showed GERD vs esophagitis. One episode of hematemesis, although remained HDS and with normal Hgb upon arrival. Also considering cannabis-induced hyperemesis (UDS cannabinoid+ in 12/2019) Plan: - lipase wnl - zofran prn - compazine prn - continue home famotidine - clears, advance diet as tolerated Intractable vomiting 07/04/2020 022 Hypertriglyceridemia 10/30/2019 022 Assessment & Plan (10/30/2019 4:25 PM CDT): Hx of high TG since childhood. Lipitor was stopped years ago due to hepatoxic. Run out of fenofibrate a month ago. As patient will start eating today and there is no recent changes in kidney function. Recommend to restart fenofibrate 145 mg every day. Muscle spasm 09/17/2019 04/04/2022 Hyponatremia 06/23/2019 04/04/2022 Hypocalcemia 04/17/2019 04/04/2022 Hypomagnesemia 04/17/2019 04/04/2022 Sinus tachycardia 12/16/2018 04/04/2022 Assessment & Plan (12/16/2018 3:21 AM CDT): Multifactorial secondary to intravascular volume depletion due to DKA, Metabolic acidosis, sepsis Continue with IV fluids Septic workup in progress Monitor I&Os Serial CBCs and BMPs, monitor electrolytes and replete as needed Urine drug screen positive only for cannabinoids If remains persistently tachycardic and hypertensive will treat with Lopressor. Hypertension 12/16/2018 04/04/2022 Assessment & Plan (12/16/2018 3:33 AM CDT): Patient currently was somewhat agitated. Blood pressures were elevated. Will treat with IV Ativan for agitation. Will start on metoprolol 5 mg IV as needed for persistent tachycardia and hypertension. Sepsis 12/16/2018 04/04/2022 Assessment & Plan (12/16/2018 3:24 AM CDT): Patient presented with persistent nausea vomiting had recurrent episodes of diarrhea. The also spiked low-grade fever. Lactic acid is elevated. Will start on empiric antibiotics per sepsis protocol with cefepime, vancomycin and Flagyl. The Blood cultures were obtained, results are pending Trend CBC, CMP, check lipase and PT INR, repeat lactate levels Patient is severely acidotic, will go ahead and give 1 amp of bicarb along with IV fluids I&Os Diarrhea of presumed infectious origin 12/16/2018 04/04/2022 Assessment & Plan (12/16/2018 3:26 AM CDT): Obtain stool studies and C diff Patient was started on empiric antibiotics with cefepime and vancomycin. Will add Flagyl Blood cultures were obtained results are pending. Continue IV fluids I&Os Trend CBC and BMP Replete electrolytes as needed Non-intractable vomiting with nausea 12/16/2018 04/04/2022 Assessment & Plan (01/27/2021 8:26 AM CDT): Probable gastroparesis. egd and gastric emptying and return after. Begin reglan ac and hs. Assessment & Plan (12/16/2018 3:34 AM CDT): Zofran and Compazine as needed for nausea vomiting Will keep patient NPO Continue IV fluids I&Os Hypophosphatemia 12/16/2018 04/04/2022 Assessment & Plan (12/16/2018 3:29 AM CDT): Repleted with K-Phos Metabolic acidosis, increased anion gap 12/16/2018 04/04/2022 Assessment & Plan (07/05/2020 4:26 PM ADJUNCT INSTRUCTOR IN ECONOMICS): Etiology likely DKA. pH is 7.50 (alkalosis) with bicarb 23 (normal) and CO2 28 (low). elevated AG from 20->10, now resolved. Possibly primary wide-gap metabolic acidosis with primary respiratory alkalosis Plan: - treatment of DKA as above, now on home lantus + MDSSI - monitor BMP Assessment & Plan (12/16/2018 3:41 AM CDT): Multifactorial secondary to DKA and sepsis. Treatment as outlined above Hypercholesteremia 04/08/2018 2 Encephalopathy, metabolic 03/07/2018 Diabetic ketoacidosis associ ated with type 1 diabetes mellitus 02/17/2018 04/04/2022 Assessment & Plan (08/04/2020 3:41 AM ADJUNCT INSTRUCTOR IN ECONOMICS): Patient multiple past hospitalizations for DKA, most recently in June presenting w/ DKA after 3 days of persistent N/V. BG was 338 w/ AG 18, bicarb 21, ketones 3.2. BG now in the 100s and AG close after hyperglycemia protocol. A1C 10.5 08/02/20. Is a patient of Dr. Swift at [facility] in [place]. Last seen on 07/25 with plan for insulin regimen of 34u Basaglar qHS, 1u Admelog/4 gm carbs before meals plus slide. Patient says that he has been compliant w/ his insulin. -26u lantus qHS + MDSSI while inpatient -IVF -BMP, Mg, Phos -CTM -Patient seems to have sound knowledge regarding insulin regimen and has close OP endocrine f/u. Assessment & Plan (07/05/2020 4:21 PM ADJUNCT INSTRUCTOR IN ECONOMICS): DKA (ketones 1.4, BG 242, urine glucose 3+), likely from medication or diet noncompliance, infection less likely given afebrile and without leukocytosis. UA with 3+ glucose and 2+ ketones. Blood glucose 242 most recently. Elevated AG of 20. Hgb A1c of 9.5. Home regimen of Lantus 26 units nightly, Humalog 1 unit for 10 grams of carb, then if sugar > 140, for every 20 greater than 140, give 1 unit, max daily dose of 70 units. AG closed, resolved. Much improved subjectively Plan: - Started on Lantus 26u nightly + MDSSI - Monitor BMP and replete electrolytes - IVF as needed; consider adding dextrose if BHB still elevated - follow up repeat BHB - advance diet as tolerated - Follows with Endocrine at OSH Assessment & Plan (12/16/2018 3:28 AM CDT): Patient is severely acidotic with severely elevated blood sugars and ketones in urine. Consistent with DKA. Will continue with IV insulin drip, GlucoStabilizer protocol She L BMPs and electrolytes. Will switch the IV fluids to D5 half-normal saline blood sugar is less than 250. Will continue on insulin drip until anion gap is closed then will transition to subcutaneous insulin management orders. Assessment & Plan (03/08/2018 5:38 PM CDT): Presented in severe DKA with altered mental status, has a history of numerous lifetime admissions for DKA. Acidosis and ketosis improved yesterday and is off of insulin drip today. Blood glucoses have been low today ranging from 47-128. Plan: -We will decrease his Tresiba to 22 units SQ once daily -Will increase carb ratio to 1:10 g CHO, ISF 25 with target 120 while in hospital. -Resume home fenofibrate and atorvostatin -f/u serum amino acids, and urine organic acids. -will recheck UA today -f/u cortisol level, if low will pursue high dose ACTH stimulation test -Recommend psychiatry consult Assessment & Plan (03/07/2018 12:08 PM CDT): Severe DKA presented with altered mental status, with numerous lifetime admissions for DKA, DKA improved and should be able to transition off of insulin drop today, expected to transfer to floor as well. Plan: -Appreciate PICU management of insulin drip/fluids -Continue Tresiba 24 units SQ once daily -When able to transition off of insulin drip, please resume 1:5 g CHO, and convert home sliding scale insulin 2:50>150 to ISF 25 with target 120 while in hospital. -Send serum amino acids, save serum, and urine organic acids now. -Recommend psychiatry consult Assessment & Plan (03/06/2018 7:11 PM CDT): Severe DKA presented with altered mental status, with numerous lifetime admissions for DKA. Mental status improved, but have low threshhold for hyperosmolar therapy (mannitol or hypertonic saline). Severe DKA represents failure of Basaglar/Lantus, so will resubmit for Tresiba insurance coverage. Given history of frequent DKA, will also send additional metabolic testing below. Plan: -Appreciate PICU management of insulin drip/fluids -Tresiba 24 units SQ once daily, please give first dose now while on insulin drip -When able to transition off of insulin drip, please resume 1:5 g CHO, and convert home sliding scale insulin 2:50>150 to ISF 25 with target 120 while in hospital. -Send serum amino acids, save serum, and urine organic acids now. Assessment & Plan (02/18/2018 9:36 AM CDT): Peter is a 17 y.o. male with history of T1DM and hyperlipidemia who presented in DKA, which is now resolved. He cleared his ketones last night and well on exam today. Since stopping insulin drip, BG have been appropriate and no change to his insulin regimen is needed at this time. night guard have talked to Peter and family about switching from Lantus to Tresiba for better control of his T1DM. Tresiba requires a prior auth therefore Endocrine will follow-up with Peter about Tresiba outpatient. He is stable for discharge and will follow-up in transition clinic next week. Plan: - Discharge today - BG 5x daily - diabetic diet - Humalog: carb ratio 1:5, ISF 2 units for every 50>150 - Lantus 24u qHS -HbA1c: 12.6 Assessment & Plan (02/17/2018 7:33 AM CDT): Peter is a 17 y.o. male with history of T1DM and hyperlipidemia presenting in DKA. Nausea and emesis x 7 episodes prior to presentation in addition to decreased oral intake and appetite. Denies any recent viral illness or exposure to sick contacts. He has adhered to his insulin regimen and has not missed any doses. He states that he is currently living with aunt and not at home with mom and siblings. A formal HEADS/social history will be warranted when patient can speak without aunt in room to assess for any potential stressors relating to family. At this time, there is no clear provoking factors for DKA. Will admit to floor for management per DKA protocol. Plan: -s/p 20 ml/kg in EU -insulin drip 0.1 U/kg/hr -D10+ 1/2 NS + 20 Kacetate, 20 Kphos / 1/2 NS + Kacet, Kphos -BMP q 4h -POCT glucose q 1 -Ketones q void -Neuro checks q 1 hr -NPO diet -HbA1c: 12.6 Hypoxia 12/27/2017 12/28/2017 Overview (12/27/2017): Required oxygen during sleep. Currently on room air, will continue to closely monitor for desaturation and oxygen need. Hyperlipidemia 12/26/2017 04/04/2022 Assessment & Plan (03/08/2018 5:37 PM CDT): History of severe dyslipidemia. Lipid panel today showed cholesterol of 326, TGs of 872, HDL 22, LDL 68, non HDL 304, indicating persistence of severe dyslipidemia. Plan: -Resume Atorvastatin 20 mg tablet QD and fenofibrate 48 mg tablet QD. Assessment & Plan (03/07/2018 12:08 PM CDT): History of severe dyslipidemia Plan: -Hold Atorvastatin 20 mg tablet QD and fenofibrate 48 mg tablet QD. Plan to resume on discharge -Repeat lipid panel prior to discharge Assessment & Plan (03/06/2018 7:06 PM CDT): History of severe dyslipidemia, currently with abdominal pain suspicious for pancreatitis Plan: -Hold Atorvastatin 20 mg tablet QD and fenofibrate 48 mg tablet QD. Plan to resume after resolution of DKA -Repeat lipid panel prior to discharge -Follow-up lipase Assessment & Plan (02/18/2018 9:27 AM CDT): Peter has hypercholesterolemia and hypertriglyceridemia on atorvastatin and fenofibrate. He reports medication compliance. Recent labs from 11/05/17: HDL 26 and LDL: 184 Plan: -continue home regimen: Atorvastatin 20 mg tablet q D fenofibrate 48 mg tablet q D Assessment & Plan (02/17/2018 7:40 AM CDT): Stable. He reports medication compliance. Recent labs from 11/05/17: HDL 26 and LDL: 184 Plan: -continue home regimen: Atorvastatin 20 mg tablet q D fenofibrate 48 mg tablet q D Assessment & Plan (12/28/2017 8:07 AM CDT): Present on admission. Stable Plan: -Continue statin and fenofibrate Assessment & Plan (12/27/2017 4:53 PM CDT): Had lipid panel checked recently at outpatient visit so no need to repeat during this admission. 1. Continue atorvastatin and fenofibrate 2. Continue heart healthy diet at home 3. Will need follow up with Dr. Whitney Moulton in lipid clinic Assessment & Plan (12/27/2017 7:57 AM CDT): Present on admission. Stable Plan: -Continue home statin Assessment & Plan (12/26/2017 3:43 PM CDT): Present on admission. Stable Plan: -Continue home statin Assessment & Plan (12/26/2017 3:27 PM CDT): Present on admission, stable Plan: -Continue home statin Pneumonia 12/26/2017 04/04/2022 Assessment & Plan (12/28/2017 8:08 AM CDT): Community acquired, associated with hypoxia. Likely viral etiology given paraflu + with multifocal exam and x-ray findings. But cannot exclude early bacterial pneumonia or superimposed bacterial pneumonia. Multifocal presentation also raises suspicion for atypical organisms. Plan: -Will switch to oral amoxicillin and azithromycin today and anticipate discharge Assessment & Plan (12/27/2017 7:58 AM CDT): Community acquired, associated with hypoxia. Likely viral etiology given paraflu + with multifocal exam and x-ray findings. But cannot exclude early bacterial pneumonia or superimposed bacterial pneumonia. Multifocal presentation also raises suspicion for atypical organisms. Plan: -Continue ampicillin + azithromycin -Will consider switch to oral therapy when stable off oxygen Assessment & Plan (12/26/2017 3:46 PM CDT): Community acquired, associated with hypoxia. Likely viral etiology given paraflu + with multifocal exam and x-ray findings. But cannot exclude early bacterial pneumonia or superimposed bacterial pneumonia. Multifocal presentation also raises suspicion for atypical organisms. Plan: -Ampicillin + azithromycin Assessment & Plan (12/26/2017 3:29 PM CDT): Community acquired. Associated with hypoxia. Likely viral given multifocal exam and x-ray findings and paraflu + on viral PCR panel. However cannot exclude early bacterial pneumonia or superimposed bacterial pneumonia. Multifocal presentation also raises suspicion for atypical organisms. Plan: -Ampicillin and azithromycin -Oxygen via NC as needed Dehydration 12/26/2017 04/04/2022 Assessment & Plan (12/27/2017 7:59 AM CDT): Secondary to acute illness. PO intake improving Plan: -Will consider discontinuing IVF today if PO continues to improve. Assessment & Plan (12/26/2017 3:46 PM CDT): Secondary to acute illness Plan: -Continue IV maintenance fluids Assessment & Plan (12/26/2017 3:30 PM CDT): Secondary to acute illness. Plan: -Will continue maintenance IV fluids. Lymphadenopathy 10/04/2015 04/04/2022 Elevated blood pressure reading 04/09/2013 04/04/2022 Diabetic ketoacidosis withou t coma associated with diabetes mellitus due to underlying condition ([facility]) 04/04/2022 EKG abnormality 04/04/2022 Choledocholithiasis 04/04/20 Abdominal pain 04/04/2022 Social History Tobacco Use Types Packs/Day Years Used Date Smoking Tobacco: Every Day Cigarettes Smokeless Tobacco: Never Tobacco Cessation:Ready to Q uit: Not Asked; Counseling Given: Not Answered Alcohol Use Standard Drinks/Week Comments No 0 (1 standard drink = 0.6 oz pur e alcohol) AUDIT-C Answer Date Recorded Q1: How often do you have a drink containing alc ohol? Patient declined 04/18/2021 Q2: How many drinks containi ng alcohol do you have on a typical day when you are drinking? Patient declined 04/18/2021 Q3: How often do you have si x or more drinks on one occasion? Patient declined 04/18/2021 PHQ-2 Answer Date Recorded PHQ-2 Score 0 03/13/2019 Personal Safety Answer Date Recorded Have you ever been in or are you currently in a harmful physical or emotional relationship or is someone making you feel afraid or unsafe? Denies 01/09/2024 Sex and Gender Information Value Date Recorded Sex Assigned at Not on file Legal Sex Male 4:12 AM [employer] Gender Identity Not on file Sexual Orientation Not on file Last Filed Vital Signs Vital Sign Reading Time Taken Comments Blood Pressure 110/76 02/12/2024 1:21 PM CDT Pulse 128 01/09/2024 6:30 AM CDT Temperature 36 C (96.8 F) 01/09/2024 6:30 AM CDT Respiratory Rate 18 01/09/2024 6:30 AM CDT Oxygen Saturation 100% 01/09/2024 6:30 AM CDT Inhaled Oxygen Concentration - - Weight 73.3 kg (161 lb 9.6 oz) 02/12/2024 1:21 P M CDT Height 170.2 cm (5' 7 ) 02/12/2024 1:21 PM CDT Body Mass Index 25.31 02/12/2024 1:21 PM CDT Plan of Treatment Not on file Procedures Procedure Name Priority Date/Time Associated Diagnosis Comments HEMOGLOBIN A1C Routine 09/03/2024 EGFR Routine 02/12/2024 1:50 PM CDT Type 1 diabetes mellitus with hyperglycemia (HCC) LIPID PANEL Routine 02/12/2024 1:50 PM CDT Type 1 diabetes mellitus with hyperglycemia (HCC) ALBUMIN CREATININE RATIO, URINE Routine 02/12/2024 1:50 PM CDT Type 1 diabetes mellitus with hyperglycemia (HCC) THYROID FUNCTION CASCADE Routine 02/12/2024 1:50 PM CDT Type 1 diabetes mellitus with hyperglycemia (HCC) HM DIABETES FOOT EXAM Routine 04/08/2018 from Last 3 Months or Most Recently Relevant to Health Maintenance Results * (ABNORMAL) Hemoglobin A1c (09/03/2024) SCRIBED Hemoglobin A1c 9.0(A) 4.8 - 5.7 % EXTERNAL LAB Blood 09/03/2024 us Historical Provider LAB BLOOD ORDERABLES Stephie baez Result EXTERNAL LAB * eGFR (02/12/2024 1:50 PM CDT) eGFR >90 >=60 mL/min/1. 73 m2 Comment: Interpretive Data Reference Interval Normal >/= 90 mL/min/1.73m2 Mildly decreased* 60 - 89 mL/min/1.73m2 Mildly to moderately decreased 45 - 59 mL/min/1.73m2 Moderately to severely decreased 30 - 44 mL/min/1.73m2 Severely decreased 15 - 29 mL/min/1.73m2 Kidney Failure < 15 mL/min/1.73m2 *Relative to young adult level Estimated glomerular filtration rate is determined by the 2020 CKD-EPI equation recommended by the National Kidney Foundation (A Unifying Approach to GFR Estimation: Recommendations of the NKF-ASK Task Force on Reassessing the Inclusion of Race in Diagnosing Kidney Disease, JASN 2020). The CKD-EPI equation should not be used for patients with unstable renal function and has not been validated in children and those over 70. Current interpretive data was last reviewed 2021. Blood 02/12/2024 1:50 PM CDT 02/12/2024 7:42 PM CDT Nay Alford [employer] LAB BLOOD ORDERABLES Final Resu lt Performing Organization Address [facility] Co de Phone Number [facility] [address] [address] [facility] [employer] [address] * Thyroid Function [place] (02/12/2024 1:50 PM CDT) TSH 1.78 0.30 - 4.20 mcIUnit/mL Blood 02/12/2024 1:50 PM CDT 02/12/2024 7:06 PM CDT Nay Alford NP LAB BLOOD ORDERABLES Final Resu lt Performing Organization Address [facility] Co de Phone Number [facility] [address] [address] [place] [address] * Albumin Creatinine Ratio, Urine (02/12/2024 1:50 PM CDT) Albumin Ur 28.6 mg/L Comment: Interpretive Data No reference range established. Current interpretive data was last revised 2018. Creatinine Ur 159.2 mg/dL [facility] Comment: Interpretive Data No reference range established. Current interpretive data was last revised 2018. Albumin Creatinine Ratio, Ur 18 1 - 29 mg/g ALYSSA Urine 02/12/2024 1:50 PM CDT 02/12/2024 7:06 PM CDT us Nay Alford NP LAB URINE ORDERABLES Final Resu lt ALYSSA AHMADI [id number] [address] Department [place] [address] * (ABNORMAL) Lipid panel (02/12/2024 1:50 PM CDT) Cholesterol 252(H) 30 - 199 mg/dL Comment: Interpretive Data Ages < or = 19 years Acceptable: <170 mg/dL Borderline high: 170-199 mg/dL High: >or= 200 mg/dL Ages > or = 20 years Desirable: <200 mg/dL Borderline high: 200-239 mg/dL High: >or= 240 mg/dL Literature References: 1. Expert Panel on Integrated Guidelines for Cardiovascular Health and Risk Reduction in Children and Adolescents. Pediatrics 2011;128:S213 2. NCEP Expert Panel. Circulation 2004;110:227 Current Interpretive Data was last revised on 2018. Triglycerides 320(H) <=149 mg/dL ALYSSA AHMADI Comment: Interpretive Data Ages < or = 9 years Acceptable: <75 mg/dL Borderline high: 75-99 mg/dL High: >or= 100 mg/dL Ages 10 to 20 years Acceptable: <90 mg/dL Borderline high: 90-129 mg/dL High: >or= 130 mg/dL Ages > or = 20 years Desirable: <150 mg/dL Borderline high: 150-199 mg/dL High: 200-499 mg/dL Very high: >or= 499 mg/dL Literature References: 1. Expert Panel on Integrated Guidelines for Cardiovascular Health and Risk Reduction in Children and Adolescents. Pediatrics 2011;128:S213 2. NCEP Expert Panel. Circulation 2004;110:227 Current Interpretive Data was last revised on 2018. HDL 36(L) >=40 mg/dL ALYSSA AHMADI Comment: Interpretive Data Ages < or = 19 years Acceptable: >45 mg/dL Borderline low: 40-45 mg/dL Low: <40 mg/dL Ages > or = 20 years Desirable: >or= 60 mg/dL Low: <40 mg/dL Literature References: 1. Expert Panel on Integrated Guidelines for Cardiovascular Health and Risk Reduction in Children and Adolescents. Pediatrics 2011;128:S213 2. NCEP Expert Panel. Circulation 2004;110:227 Current Interpretive Data was last revised on 2018. LDL, calculated 152(H) <=129 mg/dL ALYSSA AHMADI Comment: Interpretive Data Ages < or = 19 years Acceptable: <110 mg/dL Borderline high: 110-129 mg/dL High: >or= 130 mg/dL Ages > or = 20 years Optimal: <100 mg/dL Near optimal: 100-129 mg/dL Borderline high: 130-159 mg/dL High: >160 mg/dL Literature References: 1. Expert Panel on Integrated Guidelines for Cardiovascular Health and Risk Reduction in Children and Adolescents. Pediatrics 2011;128:S213 2. NCEP Expert Panel. Circulation 2004;110:227 Current Interpretive Data was last revised on 2018. Non-HDL Cholesterol 216 mg/dL ALYSSA AHMADI Comment: Interpretive Data Ages < or = 19 years Acceptable: <120 mg/dL Borderline high: 120-144 mg/dL High: >145 mg/dL Ages > or = 20 years When triglycerides are >200 mg/dL, Non-HDL cholesterol is a secondary target of therapy with treatment goals that are 30 mg/dL greater than the LDL cholesterol target. Literature References: 1. Expert Panel on Integrated Guidelines for Cardiovascular Health and Risk Reduction in Children and Adolescents. Pediatrics 2011;128:S213 2. NCEP Expert Panel. Circulation 2004;110:227 Current Interpretive Data was last revised on 2018. Chol/HDL ratio 7 ALYSSA Blood 02/12/2024 1:50 PM CDT 02/12/2024 7:06 PM CDT Narrative ALYSSA - 02/12/2024 8:05 PM CDT These lab test should be done fasting. This means do not eat or drink for at least 12 hours prior to getting your blood drawn. Has the patient been fasting for 8 hours or more?->Yes us Nay Alford NP LAB BLOOD ORDERABLES Final Resu lt ALYSSA AHMADI [id number] Department [place] [address] * DIABETES FOOT EXAM (04/08/2018) Diabetic Foot Exam Normal us Historical Provider MD HEALTH MAINTENANCE Final Result from Last 3 Months or Most Recently Relevant to Health Maintenance Insurance [facility] Advance Directives For more information, please contact: [phone] Documents on File Type Date Recorded Patient Overlock Hemmer Expl anation ADVANCE DIRECTIVE 05/26/2020 6:51 PM ADVANCE DIRECTIVE 05/26/2020 * Full Code (Latest Code Status on File) Date Activated Date Inactivated Comments 04/19/2021 2:11 PM 04/19/2021 7:30 PM * Full Code Date Activated Date Inactivated Comments 04/18/2021 9:58 PM 04/19/2021 2:11 PM * Full Code Date Activated Date Inactivated Comments 04/04/2021 12:24 PM 04/07/2021 6:13 PM * Full Code Date Activated Date Inactivated Comments 02/14/2021 8:44 AM 02/14/2021 3:06 PM * Full Code Date Activated Date Inactivated Comments 07/04/2020 10:38 PM 07/05/2020 11:35 PM Care Teams Chest Painting Leader Relationship Specialty Start Date End Date Prashanth Saldana PA [address] [place] [address] PCP - General Family Practice 05/25/20 Con Beltrán MD Referring Physician Pediatric Endocrinology 12/20/18 Sidney Russell MD [address] [place] [address] Consulting Physician Gastroenterology 04/19/21
--- OUTSIDE RECORDS SUMMARY | 2024-10-15 20:55 | XMS_ITS | Encounter Summary ---
Author Organization [facility] Address [address] [place] [address] Phone Care Team Providers Care Longitudinal Float Operator Name Role Phone Prashanth Saldana Primary Care Provider [phone] Heidi Swift MD Unavailable Reason for Visit * Reason Comments Medication Refill Encounter Details Date Type Department Care Team (Late st Contact Info) Description 09/17/2021 Refill [facility] - Endocrinology - [place] [address] [place] [address] Heidi Swift MD [address] [address] Medication Refill Social History Tobacco [...] on file Sexual Orientation Not on file documented as of this encounter Miscellaneous Notes * Telephone Encounter - Eli Jones RN - 09/19/2021 3:39 PM FURNACE CHARGER Requested Prescriptions Pending Prescriptions Disp Refills ??? Continuous Blood Gluc Transmit (Dexcom G6 Transmitter) Misc [Pharmacy Med Name: DEXCOM G6 TRANSMITTER] 3 Si EACH BY DOES NOT APPLY ROUTE EVERY 90 DAYS. CHANGE SENSOR EVERY 90 DAYS. Next appt: Message sent to schedule follow up. ACE CHARGER documented in this encounter Plan of Treatment [...] Respiratory Rule-Out 05/17/2022 05/17/2022 022 12:16 AM FURNACE CHARGER COVID - 19 06/27/2022 06/27/2022 07/07/2022 12:1 6 AM FURNACE CHARGER Influenza 06/27/2022 06/27/2022 07/04/2022 12:1 6 AM FURNACE CHARGER COVID - 19 04/05/2024 04/05/2024 04/05/2024 10:2 0 PM CDT documented as of this encounter Care Teams Longitudinal Float Operator Relationship Specialty Start Date End Date Prashanth Saldana PAC [address] [place] [address] PCP - General Physician Roofing Foreman 04/03/19 Heidi Swift MD [address] [id number] Consulting Physician Endocrinology 08/09/20 09/23/24 documented as of this encounter
--- OUTSIDE RECORDS SUMMARY | 2024-10-15 20:55 | XMS_ITS | Clinical Summary ---
Author Organization [facility] [employer] Address [address] [place] [address] Care Team Providers Care Retail Cashier Associate Name Role Phone Unavailable Primary Care Provider Unavailabl e Source Comments [facility] [employer],non-owned Affiliates and Associated Physician Practices is amultiple site organization consisting of ambulatory clinics and hospital sitesin [place], [place], [place]. This disclosure is being madepursuant to the Care Everywhere program and may not contain all information available regarding this patient. Last updated 18.[facility] [employer] Allergies No known active allergies Medications * Be aware that medications may not be up to date on this document. Alwaysverify current medications with the patient. Medication Sig Dispensed Refills Start Date End Date Status insulin glargine (LANTUS) pen Inject 25 Units subcutaneously once daily 15 mL 04/02/2020 Active insulin lispro (HUMALOG;ADMELOG) 100 UNIT/ML pen Inject 5 Units subcutaneously 3 times daily before meals 15 mL 04/02/2020 Active amLODIPine (NORVASC) 5 MG tablet Take 1 tablet by mouth once daily 30 tablet 04/02/2020 Active famotidine (PEPCID) 10 MG tablet Take 1 tablet by mouth 2 times daily 60 tablet 04/02/2020 Active Active Problems Problem Noted Date Diagnosed Date Diabetic ketoacidosis withou t coma associated with type 1 diabetes mellitus 04/01/2020 Family History Medical History Relation Name Comments Hyperlipidemia Maternal Grandfather Hyperlipidemia Maternal Grandmother Relation Name Status Comments Maternal Grandfather Maternal Grandmother Social History Tobacco Use Types Packs/Day Years Used Date Smoking Tobacco: Never Smokeless Tobacco: Never Alcohol Use Standard Drinks/Week Comments Yes 0 (1 standard drink = 0.6 oz pur e alcohol) AUDIT-C Answer Date Recorded Q1: How often do you have a drink containing alc ohol? Monthly or less 04/01/2020 Q2: How many drinks containi ng alcohol do you have on a typical day when you are drinking? Patient declined 04/01/2020 Q3: How often do you have si x or more drinks on one occasion? Patient declined 04/01/2020 Sex and Gender Information Value Date Recorded Sex Assigned at Not on file Gender Identity Not on file Sexual Orientation Not on file Last Filed Vital Signs Vital Sign Reading Time Taken Comments Blood Pressure 145/78 04/02/2020 8:22 AM CDT Pulse 77 04/02/2020 8:22 AM CDT Temperature 36.8 C (98.3 F) 04/02/2020 8:22 AM CDT Respiratory Rate 12 04/02/2020 8:22 AM CDT Oxygen Saturation 100% 04/02/2020 8:22 AM CDT Inhaled Oxygen Concentration - - Weight 57.7 kg (127 lb 4.8 oz) 04/02/2020 3:00 A M CDT Height 170.2 cm (5' 7 ) 04/01/2020 11:47 AM CDT Body Mass Index 19.94 04/01/2020 11:47 AM CDT Plan of Treatment Health Maintenance Due Date Last Done Comments HIV SCREENING 2014 HPV VACCINE (1 - Male 3-dose series) 2014 HEPATITIS C SCREENING 08/22/2017 DTAP/TDAP/TD VACCINES (1 - Tdap) 2018 HEPATITIS B VACCINE (1 of 3 - 19+ 3-dose series) 2018 DIABETES RETINOPATHY SCREENING 04/01/2020 DIABETES-FOOT EXAM WITH MONOFILAMENT 04/01/2020 DIABETES-HGB A1C 09/29/2020 04/01/2020, 04/2020, 12/16/2018, Additional history exists DIABETES-SERUM CREATININE 04/02/20212019, 04/02/2020, 04/02/2020, Additional history exists COVID-19 VACCINE ( - 2023- season) 2024 INFLUENZA VACCINE (#1) 2024 DEPRESSION SCREENING 07/22/2024 DIABETES - URINE PROTEIN SCREENING 07/22/2024 ZOSTER VACCINE (1 of 2) 2049 HIB VACCINE Aged Out No longer eligi ble based on patient's age to complete this topic MENINGOCOCCAL (Group B) VACCINE SHARED DECISION-MAKING Aged Out No longer eligible based on patient's age to complete this topic MENINGOCOCCAL GROUPS A/C/Y/W VACCINE Aged Out No longer eligible based on patient's age to complete this topic PNEUMOCOCCAL VACCINE Aged Out No long er eligible based on patient's age to complete this topic Procedures Procedure Name Priority Date/Time Associated Diagnosis Comments BASIC METABOLIC PANEL (CALCIUM TOTAL) Timed 04/02/2020 3:06 AM CDT HEMOGLOBIN A1C Add on 04/01/2020 12:04 PM CDT from Last 3 Months or Most Recently Relevant to Health Maintenance Results * (ABNORMAL) BASIC METABOLIC PANEL (CALCIUM TOTAL) (04/02/2020 3:06 AM CDT) Glucose 163(H) 70 - 105 mg/dL 04/02/2020 3:39 AM CDT [facility] Sodium 137 136 - 145 mmol/L 04/02/2020 3:39 AM CDT [facility] Potassium 3.0(L) 3.5 - 5.1 mmol/L 04/02/2020 3:39 AM CDT [facility] Chloride 104 98 - 107 mmol/L 04/02/2020 3:39 AM CDT [facility] CO2 20(L) 23 - 31 mmol/L 04/02/2020 3:39 AM CDT [facility] Calcium 9.0 8.4 - 10.4 mg/dL 04/02/2020 3:39 AM CDT [facility] Anion Gap 13 8 - 16 mmol/L 04/02/2020 3:39 AM CDT [facility] BUN 6(L) 8.9 - 20.6 mg/dL 04/02/2020 3:39 AM CDT [facility] Creatinine 0.86 0.72 - 1.25 mg/dL 04/02/2020 3:39 AM CDT [facility] eGFR by MDRD >60 >60 mL/min/1.7 3m2 04/02/2020 3:39 AM CDT [facility] eGFR by MDRD >60 >60 mL/min/1.7 3m2 04/02/2020 3:39 AM CDT [facility] Blood BLOOD SPECIMEN / Unknown Lab Venipuncture / Unknown 04/02/2020 3:06 AM CDT 04/02/2020 3:20 AM CDT Robinson Wilkins MD LAB - CHEMISTRY ADEN NYE [facility] Organization Address City/State/ZIP Co de Phone Number [facility] [address] [place] [address] * (ABNORMAL) HEMOGLOBIN A1C (04/01/2020 12:04 PM CDT) Hemoglobin A1c 8.9(H) 4.2 - 5.6 % 04/01/2020 1:31 PM CDT [facility] Estimated Average Glucose 209 mg/dL 04/01/2020 1:31 PM CDT [facility] Blood BLOOD SPECIMEN / Unknown Venipuncture / Unknown 04/01/2020 12:04 PM CDT 04/01/2020 12:08 PM CDT Narrative [facility] - 04/01/2020 1:31 PM CDT The following cutoff levels are recommended by [place] [employer]. A1c > 6.5% : considered as diabetes if two separate tests >6.5% or in an appropriate clinical setting. A1c 5.7% - 6.4% : considered as prediabetes (suggest increased risk for diabetes and cardiovascular disease) Control target level: Should be individualized. < 7 for general (non-) , < 8% less stringent goal, < 6.5 more stringent goal. Hemoglobin A1c measurements are used as an aid in the diagnosis of diabetic mellitus, as an aid to identify patients who may be at the risk for developing diabetic mellitus, and for the monitoring long-term blood glucose control in individuals with diabetes mellitus. This test should not replace glucose testing for patients with Type 1 diabetes, pediatric patients, or women. Falsely low HbA1c results may be observed in patients with clinical conditions that shorten erythrocyte life span or decrease mean erythrocyte age such as the presence of unstable hemoglobin variants, elevated hemoglobin F level or other causes of hemolytic anemia . HbA1c may not accurately reflect glycemic control when clinical conditions that affect erythrocyte survival are present. Severe Iron deficiency anemia may yield falsely high results. Hemoglobin A1c assay should not be used to diagnose or monitor diabetes in patients with malignancy, recent blood transfusion, chronic kidney or liver disease. This method may yield falsely low results when hemoglobin (HbF) exceeds 5% in the specimen. Robinson Wilkins MD LAB - CHEMISTRY ADEN NYE [facility] Organization Address City/State/ZIP Co de Phone Number [facility] [address] [place] [address] from Last 3 Months or Most Recently Relevant to Health Maintenance Advance Directives * Full Code (Latest Code Status on File) Date Activated Date Inactivated Comments 04/01/2020 1:52 PM 04/02/2020 1:54 PM
--- OUTSIDE RECORDS SUMMARY | 2024-10-15 20:55 | XMS_ITS | Encounter Summary ---
Author Organization [facility] Address [address] [place] [address] Phone Care Team Providers Care Disciplinary Hearing Officer Name Role Phone Cristobal Aguilera MD Primary Care Provider Con Beltrán MD Unavailable [phone] Azra Yarbrough RN Unavailable [phone] Cristobal Aguilera MD Primary Care Provider Prashanth Saldana Primary Care Provider [phone] Sidney Russell MD Unavailable [phone] Reason for Visit * Reason Onset Date Comments left msg. for family to c/b and sched. 3mo appt. 03/12/2018 Encounter Details Date Type Department Care Team (Late st Contact Info) Description 03/12/2018 Telephone [facility] Pediatric Endocrinology [facility] [address] [place] [address] [place] [address] Ngoc Lee left msg. for family to c/b and sched. 3mo appt. Social History Tobacco Use Types Packs/Day Years Used Date Smoking Tobacco: Never Alcohol Use Standard Drinks/Week Comments No 0 (1 standard drink = 0.6 oz pur e alcohol) Sex and Gender Information Value Date Recorded Sex Assigned at Not on file Legal Sex Male 4:12 AM RN ASSESSMENT Gender Identity Not on file Sexual Orientation Not on file documented as of this encounter Plan of Treatment Not on file documented as of this encounter Visit Diagnoses Not on filedocumented in this encounter Additional Health Concerns Infection Onset Date Last Indicated Resolved Time COVID: Suspected 12/27/2019 12/27/2019 01/10/2020 3:05 AM CDT COVID: Suspected 01/16/2020 01/16/2020 01/30/2020 3:05 AM CDT COVID: Suspected 05/26/2020 05/26/2020 05/27/2020 10:23 AM RN ASSESSMENT Respiratory Infection (ALLIE), contact + droplet Comment:IP Review - There is a significant event note with an alternative diagnosis and at least one negative COVID-19 test documented in Epic. Patient meets criteria for COVID-19 isolation discontinuation. ` Automatically added due to negative COVID-19 result. 05/27/2020 05/27/2020 05/27/2020 12:46 PM RN ASSESSMENT COVID: Suspected 07/04/2020 07/04/2020 07/04/2020 6:02 PM RN ASSESSMENT Respiratory Infection (ALLIE), contact + droplet Comment:Patient classified as Low Risk for COVID-19 and has one negative COVID-19 test. Patient meets criteria for COVID-19 isolation discontinuation 07/04/2020 [place] Automatically added due to negative COVID-19 result. 07/04/2020 07/04/2020 07/04/2020 8:[address] COVID: Suspected 08/03/2020 08/03/2020 08/03/2020 10:50 PM RN ASSESSMENT Respiratory Infection (ALLIE), contact + droplet Comment:08/04/2020 IP Review - Patient classified as Low Risk for COVID-19 and has one negative COVID-19 test. Patient meets criteria for COVID-19 isolation discontinuation. Pt initially seen by Critical Care physicians, but with improved BMP, is to admit to a medicine floor. Radhika Gallegos RN Automatically added due to negative COVID-19 result. 08/03/2020 08/03/2020 08/04/2020 3:[address] COVID: Suspected 04/03/2021 04/03/2021 04/03/2021 3:30 PM CDT documented as of this encounter Care Teams Disciplinary Hearing Officer Relationship Specialty Start Date End Date Cristobal Aguilera MD PCP - General 10/19/16 11/15/19 Cristobal Aguilera MD PCP - General 11/16/19 05/24/20 Prashanth Saldana PA [address] [place] [address] PCP - General Family Practice 05/25/20 Con Beltrán MD Referring Physician Pediatric Endocrinology 12/20/18 Azra Yarbrough, RN [address] [address] [facility] 11/16/19 12/15/19 Sidney Russell MD [address] [place] [address] Consulting Physician Gastroenterology 04/19/21 documented as of this encounter
--- NOTE | 2024-10-15 20:56 | ECG_ITS ---
Test Date: 2024-10-15 21:39:19 Measurements Intervals [place] Rate: 94 P: 82 PA: 165 QRS: 73 QRSD: 84 T: 73 QT: 341 QTc: 427 Interpretive Statements SINUS RHYTHM WITH MARKED SINUS ARRHYTHMIA POSSIBLE LEFT ATRIAL ENLARGEMENT [-0.1mV P-WAVE IN V1/V2] No previous ECG available for comparison Electronically Signed On 10-16-2024 10:34:45 CDT by Boo Clark M.D.
--- NOTE | 2024-10-15 20:56 | ED_ITS ---
HPI - Nausea/Vomiting/Diarrhea General Chief complaint: Nausea/Vomiting/Diarrhea Stated complaint: Blood Sugar Issues Time Seen by Provider: 10/15/24 20:55 Source: patient and family Mode of arrival: wheelchair Limitations: no limitations History of Present Illness HPI Narrative: this is a 24-year-old male with history of type 1 diabetes on insulin pump presents with some nausea and vomiting with no abdominal pain no dysuria or hematuria no shortness of breath no audible wheezing no fever chills. The patient had symptoms that started earlier this this evening with some no diarrhea or constipation. The patient is a type 1 diabetic currently on an insulin pump. MD elicited complaint: nausea and vomiting Related Data Allergies Allergy/AdvReac Type Severity Reaction Status Date / Time haloperidol (From Haldol) Allergy Unknown Unknown Verified 10/15/24 21:38 Review of Systems Review of Systems: All systems reviewed & are unremarkable except as noted in HPI and below PMFSH Past Medical History Medical History Type 1 diabetes Exam Const: General: ill appearing Nutritional Appearance: well nourished Orientation/consciousness: patient oriented x3 Limitations: no limitations HENMT: Head: normal to inspection Eyes: Conjunctivae: conjunctivae normal Chest: Chest palpation & inspection: normal inspection of the chest Resp: Effort & Inspection: normal respiratory effort Auscultation: clear to auscultation bilaterally Cardio: Rate: regular rate Rhythm: regular rhythm GI: GI Palp: Yes Soft to palpation Auscultation: normal bowel sounds : General: Yes bladder normal to palpation Skin: General skin exam: normal color Rashes: no rashes Neuro: General: patient oriented x3, moves all extremities, no meningeal signs and no focal motor deficits Extrem: General: normal to inspection, no clubbing, cyanosis or edema and no pedal edema Course Course Emergency Course: Patient had blood sugar that was 330 on serum glucose with anion gap of 16 consistent with good diabetic ketoacidosis with a serum osmolality of 295, with a lactic acid of 3.5. Patient received 2L of normal saline. [place] [address]. Magnesium 1.6. chest x-ray shows no acute cardiopulmonary abnormalities blood pressure has improved. I declare that I have personally explained to the patient the risks and consequences involved in leaving this facility at this time. The benefits of c ontinued treatment and our hospitalization. And the alternatives. If any. To continue treatment and/or hospitalization. If applicable I have not identified any psychosis drugs mental illness or medical illnesses alters decision-making capacity or reasoning ability. Critical Care Time Critical Care Time Critical Care Time: No Discharge Plan Discharge Clinical Impression: Type 1 diabetes, Gastroenteritis, DKA (diabetic ketoacidosis) Patient Disposition: Left Against Medical Advice Condition: Stable Instructions: Diabetic Ketoacidosis (DC), Gastroenteritis (ED), Acute Nausea and Vomiting (ED) Additional Instructions: advised follow-up with primary as soon as possible for further evaluation treatment. Patient Language: St Helenian Prescriptions: New ondansetron 4 mg tablet,disintegrating 4 mg PO Q6H PRN (Reason: nausea and vomiting) Qty: 14 0RF No Action ondansetron 4 mg tablet,disintegrating 4 mg PO Q6H PRN (Reason: nausea and vomiting) Qty: 14 0RF Follow-up/Referrals: Les,REEMA Arizmendi [Primary Care Provider] - Time of Disposition: 22:14
--- OUTSIDE RECORDS SUMMARY | 2024-10-15 20:56 | XMS_ITS | Clinical Summary ---
Author Organization [facility] Address [address] [place] [address] Care Team Providers Care It Systems Administrator Name Role Phone Con Beltrán MD Unavailable [phone] Prashanth Saldana Primary Care Provider [phone] Sidney Russell MD Unavailable [phone] Allergies Active Allergy Reactions Criticality Noted Date [...] . Assessment & Plan (07/10/2022 9:22 AM METAL BASE BLOCKER): This is a chronic condition which is not at goal. Unable to Download as he has a new pump and is not connected on [employer]. Type of insulin pump- tandem T slim [...] of less than 70. Encouraged to contact [employer] and have a new pump shipped Discussed [...] statin Assessment & Plan (07/10/2022 9:19 AM METAL BASE BLOCKER): This is a chronic condition which is [...] G6 at home. He was seen in [facility], but missed appointment in the adult diabetes [...] prescribed. Assessment & Plan (08/04/2020 3:50 AM METAL BASE BLOCKER): H/o pancreatitis attributed to hypertriglyceridemia. TGs 215 on 05/27/20. -Continue home fenofibrate and atorvastatin Resolved Problems Problem Noted Date Diagnosed Date Resolved Date Leukocytosis 04/18/2021 04/04/2022 Gallbladder sludge 04/05/2021 Marijuana abuse 04/05/2021 04/04/2022 JACK (acute kidney injury) ([facility]) 10/25/2020 04/04/2022 Diarrhea 10/25/2020 04/04/2022 Hypokalemia 08/04/2020 04/04/2022 Assessment & Plan (08/04/2020 3:59 AM METAL BASE BLOCKER): K to 3.2 after hyperglycemia protocol s/p 40 mEq of IV K in ED. -CTM w/ BMP Nausea and vomiting 07/05/2020 04/04/20 22 Assessment & Plan (08/04/2020 4:10 AM METAL BASE BLOCKER): Patient has chronic N/V, now presenting w/ 3 days of persistent N/V. No abdominal pain. Lipase 15 on presentation. +MJ use. DDx: cyclic vomiting vs. diabetic gastroparesis. -Zofran prn -Pepcid -Can trial Reglan -Encourage MJ cessation Assessment & Plan (07/05/2020 4:24 PM METAL BASE BLOCKER): Etiology likely DKA. Other considerations are PUD [...] 04/04/2022 Assessment & Plan (07/05/2020 4:26 PM METAL BASE BLOCKER): Etiology likely DKA. pH is 7.50 (alkalosis) [...] 04/04/2022 Assessment & Plan (08/04/2020 3:41 AM METAL BASE BLOCKER): Patient multiple past hospitalizations for DKA, most recently in June presenting w/ DKA after 3 days of persistent N/V. BG was 338 w/ AG 18, bicarb 21, ketones 3.2. BG now in the 100s and AG close after hyperglycemia protocol. A1C 10.5 08/02/20. Is a patient of Dr. Swift at [facility] medical group in [place]. Last seen on 07/25 with plan for [...] f/u. Assessment & Plan (07/05/2020 4:21 PM METAL BASE BLOCKER): DKA (ketones 1.4, BG 242, urine glucose [...] insulin regimen is needed at this time. perinatal educator have talked to Peter and family about [...] with diabetes mellitus due to underlying condition ([facility]/HCC) 04/04/2022 EKG abnormality 04/04/2022 Choledocholithiasis 04/04/20 Abdominal pain 04/04/2022 Medical History Medical History Date Comments Type 1 diabetes mellitus (HCC) D iabetes type 1; Comments: [facility] 11/23/2015 - Hx Other Medical high lipids; Co mments: [facility] 11/23/2015 - Hx Other Medical pancreatitis; C omments: [facility] 11/23/2015 - Pancreatitis Asthma Hypertension Hyperlipidemia Diarrhea of presumed infectious origin 12/16/2018 Abdominal pain Choledocholithiasis Diabetic ketoacidosis associ ated with type 1 diabetes mellitus (HCC) 02/17/2018 Diabetic ketoacidosis withou t coma associated with diabetes mellitus due to underlying condition ([facility]) Diarrhea 10/25/2020 EKG abnormality Elevated blood pressure reading 04/09/2013 Hypercholesteremia 04/08/2018 Hypertension 12/16/2018 Hypertriglyceridemia 10/30/2019 Hypokalemia 08/04/2020 Hypomagnesemia 04/17/2019 Hyponatremia 06/23/2019 Hypophosphatemia 12/16/2018 Intractable vomiting 07/04/2020 Non-intractable vomiting with nausea 12/16/2018 Nausea and vomiting 07/05/2020 Muscle spasm 09/17/2019 Metabolic acidosis, increased anion gap 9 Lymphadenopathy 10/04/2015 Leukocytosis 04/18/2021 Marijuana abuse 04/05/2021 Hyperlipidemia 12/26/2017 Gallbladder sludge 04/05/2021 Pneumonia 12/26/2017 Family History Medical History Relation Name Comments Hypertension Father Hypertension; type 1 diabetes mellitus Father's Sister type 1 diabetes mellitus Mother's Sister Relation Name Status Comments Father Father's Sister Mother's Sister Other Pt. stated, oth er family members have DM Social History Tobacco Use Types Packs/Day Years [...] on file Legal Sex Male 4:12 AM METAL BASE BLOCKER Gender Identity Not on file Sexual Orientation Not on file Obstetrics History Last Filed Vital Signs Vital Sign Reading [...] 02/12/2024 1:21 PM CDT Plan of Treatment Health Maintenance Due Date Last Done Comments Hepatitis C Screening 1999 Pneumococcal vaccine <65 (1 of 1 - PPSV23) 2005 10/24/2000 Dilated Eye Exam 2009 Regular Well Visit/Exam 18-64 2017 Depression Screening 10/17/2019 10/16/2018 DTaP/Tdap/Td Vaccine (7 - Td or Tdap) 04/21/2020 04/21/2010, 09/08/2003, 08/18/2001, Additional history exists Influenza Vaccine (#1) 2024 6, 05/27/2014, 04/17/2012, Additional history exists Albumin Creatinine Ratio, Urine 02/11/2025 4, 12/28/2017 Foot Exam 02/11/2025 02/12/2024, 04/21, 02/05/2023, Additional history exists Lipid Panel 02/11/2025 02/12/2024, 06/22, 04/05/2021, Additional history exists TSH Level 02/11/2025 02/12/2024, 03/23, 06/11/2017 eGFR 02/11/2025 02/12/2024, 11/19, 12/07/2023, Additional history exists Hemoglobin A1C 03/03/2025 09/03/2024, 01/20, 05/07/2023, Additional history exists Hepatitis B Screening Completed 03/13/2000 , 1999, 1999 Varicella Vaccines Completed 04/21/2010, 06/01/2002 HPV Vaccines Completed 05/09/2016, 08/2014, 05/27/2014 Procedures Procedure Name Priority Date/Time Associated Diagnosis [...] us Historical Provider LAB BLOOD ORDERABLES Stephie l Result EXTERNAL LAB * eGFR (02/12/2024 1:50 [...] 1:50 PM CDT 02/12/2024 7:42 PM CDT us Nay Alford NP LAB BLOOD ORDERABLES Final Resu lt ALYSSA AHMADI [id number] Department [place] [address] * Thyroid Function [place] (02/12/2024 1:50 PM CDT) TSH 1.78 0.30 - 4.20 mcIUnit/mL Blood 02/12/2024 1:50 PM CDT 02/12/2024 7:06 PM CDT Nay Alford BINDER STRIPPER MACHINE LAB BLOOD ORDERABLES Final Resu lt Performing Organization Address [facility] de Phone Number ALYSSA [address] [facility] [place] [address] * Albumin Creatinine Ratio, Urine (02/12/2024 1:50 PM CDT) Albumin Ur 28.6 mg/L Comment: Interpretive Data No reference range established. Current interpretive data was last revised 2018. Creatinine Ur 159.2 mg/dL ALYSSA Comment: Interpretive Data No reference range established. Current interpretive data was last revised 2018. Albumin Creatinine Ratio, Ur 18 1 - 29 mg/g [facility] Urine 02/12/2024 1:50 PM CDT 02/12/2024 7:06 PM CDT Nay Alford BINDER STRIPPER MACHINE LAB URINE ORDERABLES Final Resu lt Performing Organization Address [facility] de Phone Number ALYSSA [id number] [address] [facility] [place] [address] * (ABNORMAL) Lipid panel (02/12/2024 1:50 PM [...] on 2018. Triglycerides 320(H) <=149 mg/dL ALYSSA Comment: Interpretive Data Ages < or = [...] PM CDT 02/12/2024 7:06 PM CDT Narrative CERNER - 02/12/2024 8:05 PM CDT These lab test should be done fasting. This means do not eat or drink for at least 12 hours prior to getting your blood drawn. Has the patient been fasting for 8 hours or more?->Yes Nay Alford BINDER STRIPPER MACHINE LAB BLOOD ORDERABLES Final Resu lt ALYSSA [address] Department [place] [address] * DIABETES FOOT EXAM (04/08/2018) Diabetic Foot Exam Normal Historical Provider MD HEALTH MAINTENANCE Final Result from Last 3 Months or Most Recently Relevant to Health Maintenance [place] [address] [address] [place] [address] [facility] [place] [place] [address] [place] [address] Advance Directives For more information, please contact: [phone] Documents on File Type Date Recorded Patient Timber Buyer Expl anation ADVANCE DIRECTIVE 05/26/2020 6:51 PM [...] 10:38 PM 07/05/2020 11:35 PM Care Teams It Systems Administrator Relationship Specialty Start Date End Date Prashanth Saldana PA [address] [place] [address] PCP - General Family Practice 05/25/20 Con Beltrán MD Referring Physician Pediatric Endocrinology 12/20/18 Sidney Russell MD [address] [place] [address] Consulting Physician Gastroenterology 04/19/21
[2024-10-15 21:03] LABS: Glucose Point of Care 306 mg/dl (65-105)
[2024-10-15] MEDS: ONDANSETRON INJ 4 MG/2 ML VIAL IV PUSH ×2 (21:03→21:45)
[2024-10-15] MEDS: SODIUM CHLORIDE 0.9% IV 1,000 ML 999 ML IV CONT ×3 (21:03→22:26)
--- NOTE | 2024-10-15 21:08 | PC.NURSE ---
CURRENTLY IV FLUIDS INFUSING. ASKED GRANDMOTHER TO TURN OFF INSULIN PUMP DUE TO SALINE INFUSION AND ED TREATMENT OF INSULIN. GRANDMOTHER DOES NOT WANT INSULIN PUMP TO BE STOPPED. REFUSING TO HAVE PUMP TURNED OFF. I HAVE BEEN DOING THIS SINCE HE WAS 11. I KNOW HOW TO TAKE CARE OF HIM. THESE FLUIDS ARE NOT GOING TO DO ANYTHING FOR HIS BLOOD SUGARS . PATIENT IS RESTLESS ON STRETCHER. COLD THEN HOT. SITTING UP THEN DOWN ON THE STRETCHER. DEMANDING TO HIS FAMILY MEMEBER. PUT THE BLANKET ON. RUB MY FEET. PAT MY BACK. CONSTANTIN KIRBY.
--- NOTE | 2024-10-15 21:14 | PC.NURSE ---
Addendum entered by Telma Guzman RN 10/15/24 21:34: ASKED ER PROVIDER IF HE WANTED TO ORDER ANY INSULIN. NO INSULIN ORDER AT THIS TIME Original Note: PATIENT IS CURRENTLY LAYING BACK ON STRETCHER. REQUESTING MORE ZOFRAN. NOTIFIED ER PROVIDER.
--- NOTE | 2024-10-15 21:15 | PC.NURSE ---
PATIENT VOMITING AGAIN. ENCOURAGED GIRLFRIEND TO NOT GIVE WATER TO DRINK. SHE PUT CONTAINER OF WATER BACK ON THE TABLE.
[2024-10-15] MEDS: METOCLOPRAMIDE HCL INJ 10 MG/2 ML VIAL IV PUSH (21:18)
[2024-10-15 21:20] LABS: Basophils Absolute Auto 0.08 K/mm3 (0.00-0.10); Basophils Percent Auto 0.4 % (0.0-1.0); Eosinophils Absolute Auto 0.01 K/mm3 (0.02-0.50); Eosinophils Percent Auto 0.1 % (1.0-6.0); Hematocrit 45.2 % (40.0-54.0); Hemoglobin 14.7 g/dL (14.0-18.0); Immature Granulocyte Percent A 0.6 % (0.0-0.0); Lymphocytes Absolute Auto 1.45 K/mm3 (1.10-4.50); Lymphocytes Percent Auto 8.1 % (18.0-42.0); Mean Corpuscular HGB Conc 32.5 g/dL (32-36); Mean Corpuscular Hemoglobin 28.1 pg (27.0-31.0); Mean Corpuscular Volume 86.3 fL (78.0-102.0); Mean Platelet Volume 9.8 fl (8.7-11.0); Monocytes Percent Auto 6.1 % (2.0-11.0); Neutrophils Absolute Auto 15.17 K/mm3 (1.70-7.20); Neutrophils Percent Auto 84.7 % (50.0-70.0); Platelet Count Result 345 K/mm3 (150-420); Red Blood Count 5.24 M/mm3 (4.70-6.10); Red Cell Distribution Width 13.5 % (11.6-14.4); White Blood Count 17.9 K/mm3 (4.8-10.8)
--- NOTE | 2024-10-15 21:22 | PC.NURSE ---
PATIENT IS NOW LAYING DOWN ON STRETCHER. COVERED WITH SEVERAL BLANKETS. HEAD COVERED.
--- OUTSIDE RECORDS SUMMARY | 2024-10-15 21:27 | XMS_ITS | Clinical Summary ---
Author Organization [facility] Address [address] [place] [address] Care Team Providers Care Industrial Relations Representative Name Role Phone Con Beltrán MD Unavailable [phone] Prashanth Saldana Primary Care Provider [phone] Sidney Russell MD Unavailable [phone] Allergies Active Allergy Reactions Criticality Noted Date [...] . Assessment & Plan (07/10/2022 9:22 AM POOL INSTALLER): This is a chronic condition which is not at goal. Unable to Download as he has a new pump and is not connected on VIOSOect. Type of insulin pump- tandem T slim [...] of less than 70. Encouraged to contact [employer] and have a new pump shipped Discussed [...] statin Assessment & Plan (07/10/2022 9:19 AM POOL INSTALLER): This is a chronic condition which is [...] G6 at home. He was seen in [facility], but missed appointment in the adult [...] prescribed. Assessment & Plan (08/04/2020 3:50 AM POOL INSTALLER): H/o pancreatitis attributed to hypertriglyceridemia. TGs 215 on 05/27/20. -Continue home fenofibrate and atorvastatin Resolved Problems Problem Noted Date Diagnosed Date Resolved Date Leukocytosis 04/18/2021 04/04/2022 Gallbladder sludge 04/05/2021 Marijuana abuse 04/05/2021 04/04/2022 JACK (acute kidney injury) ([facility]) 10/25/2020 04/04/2022 Diarrhea 10/25/2020 04/04/2022 Hypokalemia 08/04/2020 04/04/2022 Assessment & Plan (08/04/2020 3:59 AM POOL INSTALLER): K to 3.2 after hyperglycemia protocol s/p 40 mEq of IV K in ED. -CTM w/ BMP Nausea and vomiting 07/05/2020 04/04/20 22 Assessment & Plan (08/04/2020 4:10 AM POOL INSTALLER): Patient has chronic N/V, now presenting w/ 3 days of persistent N/V. No abdominal pain. Lipase 15 on presentation. +MJ use. DDx: cyclic vomiting vs. diabetic gastroparesis. -Zofran prn -Pepcid -Can trial Reglan -Encourage MJ cessation Assessment & Plan (07/05/2020 4:24 PM POOL INSTALLER): Etiology likely DKA. Other considerations are PUD [...] 04/04/2022 Assessment & Plan (07/05/2020 4:26 PM POOL INSTALLER): Etiology likely DKA. pH is 7.50 (alkalosis) [...] 04/04/2022 Assessment & Plan (08/04/2020 3:41 AM POOL INSTALLER): Patient multiple past hospitalizations for DKA, most recently in June presenting w/ DKA after 3 days of persistent N/V. BG was 338 w/ AG 18, bicarb 21, ketones 3.2. BG now in the 100s and AG close after hyperglycemia protocol. A1C 10.5 08/02/20. Is a patient of Dr. Swift at [facility] medical group in [place]. Last seen on 07/25 with plan for [...] f/u. Assessment & Plan (07/05/2020 4:21 PM POOL INSTALLER): DKA (ketones 1.4, BG 242, urine glucose [...] insulin regimen is needed at this time. certified energy manager have talked to Peter and family about [...] with diabetes mellitus due to underlying condition ([facility]) 04/04/2022 EKG abnormality 04/04/2022 Choledocholithiasis 04/04/20 Abdominal pain 04/04/2022 Medical History Medical History Date Comments Type 1 diabetes mellitus (HCC) D iabetes type 1; Comments: [facility] 11/23/2015 - Hx Other Medical high lipids; Co mments: [facility] 11/23/2015 - Hx Other Medical pancreatitis; C omments: [facility] 11/23/2015 - Pancreatitis Asthma Hypertension Hyperlipidemia Diarrhea of presumed infectious origin 12/16/2018 Abdominal pain Choledocholithiasis Diabetic ketoacidosis associ ated with type 1 diabetes mellitus (HCC) 02/17/2018 Diabetic ketoacidosis withou t coma associated with diabetes mellitus due to underlying condition ([facility]) Diarrhea 10/25/2020 EKG abnormality Elevated blood pressure [...] on file Legal Sex Male 4:12 AM POOL INSTALLER Gender Identity Not on file Sexual Orientation [...] BLOOD ORDERABLES Final Resu lt ALYSSA AHMADI [id number] [place] [address] * Thyroid Function [place] (02/12/2024 1:50 PM CDT) TSH 1.78 0.30 - 4.20 mcIUnit/mL Blood 02/12/2024 1:50 PM CDT 02/12/2024 7:06 PM CDT Nay Alford SENIOR TECHNICAL MANAGER LAB BLOOD ORDERABLES Final Resu lt Performing Organization Address [facility] de Phone Number ALYSSA [address] [facility] [place] [address] * Albumin Creatinine Ratio, Urine (02/12/2024 1:50 PM CDT) Albumin Ur 28.6 mg/L Comment: Interpretive Data No reference range established. Current interpretive data was last revised 2018. Creatinine Ur 159.2 mg/dL ALYSSA Comment: Interpretive Data No reference range established. Current interpretive data was last revised 2018. Albumin Creatinine Ratio, Ur 18 1 - 29 mg/g [facility] Urine 02/12/2024 1:50 PM CDT 02/12/2024 7:06 PM CDT Nay Alford SENIOR TECHNICAL MANAGER LAB URINE ORDERABLES Final Resu lt Performing Organization Address [facility] de Phone Number ALYSSA [address] [facility] [place] [address] * (ABNORMAL) Lipid panel (02/12/2024 1:50 PM [...] for 8 hours or more?->Yes Nay Alford SENIOR TECHNICAL MANAGER LAB BLOOD ORDERABLES Final Resu lt ALYSSA [address] [place] [address] * DIABETES FOOT EXAM (04/08/2018) Diabetic Foot Exam Normal Historical Provider MD HEALTH MAINTENANCE Final Result from Last 3 Months or Most Recently Relevant to Health Maintenance Insurance [address] [address] [facility] [address] [address] [address] [place] [address] Advance Directives For more information, please contact: [phone] Documents on File Type Date Recorded Patient Coal Washer Tender Expl anation ADVANCE DIRECTIVE 05/26/2020 6:51 PM [...] 10:38 PM 07/05/2020 11:35 PM Care Teams Industrial Relations Representative Relationship Specialty Start Date End Date Prashanth Saldana PA [address] [place] [address] PCP - General Family Practice 05/25/20 Con Beltrán MD Referring Physician Pediatric Endocrinology 12/20/18 Sidney Russell MD [address] [place] [address] Consulting Physician Gastroenterology 04/19/21
--- OUTSIDE RECORDS SUMMARY | 2024-10-15 21:27 | XMS_ITS | Encounter Summary ---
Author Organization [facility] Address [address] [place] [address] Phone Care Team Providers Care Stave Machine Tender Name Role Phone Cristobal Aguilera MD Primary Care Provider Con Beltrán MD Unavailable [phone] Azra Yarbrough RN Unavailable [phone] Cristobal Aguilera MD Primary Care Provider Prashanth Saldana Primary Care Provider [phone] Sidney Russell MD Unavailable [phone] Reason for Visit * Reason Onset Date Comments left msg. for family to c/b and sched. 3mo appt. 03/12/2018 Encounter Details Date Type Department Care Team (Late st Contact Info) Description 03/12/2018 Telephone [facility] Pediatric Endocrinology [facility] [address] [place] [address] [place] [address] Ngoc Lee left msg. for family to c/b and sched. 3mo appt. Social History Tobacco Use Types Packs/Day Years Used Date Smoking Tobacco: Never Alcohol Use Standard Drinks/Week Comments No 0 (1 standard drink = 0.6 oz pur e alcohol) Sex and Gender Information Value Date Recorded Sex Assigned at Not on file Legal Sex Male 4:12 AM CUSTOMER EQUIPMENT ENGINEER Gender Identity Not on file Sexual Orientation [...] COVID: Suspected 05/26/2020 05/26/2020 05/27/2020 10:23 AM CUSTOMER EQUIPMENT ENGINEER Respiratory Infection (ALLIE), contact + droplet Comment:IP Review - There is a significant event note with an alternative diagnosis and at least one negative COVID-19 test documented in Epic. Patient meets criteria for COVID-19 isolation discontinuation. ` Automatically added due to negative COVID-19 result. 05/27/2020 05/27/2020 05/27/2020 12:46 PM CUSTOMER EQUIPMENT ENGINEER COVID: Suspected 07/04/2020 07/04/2020 07/04/2020 6:02 PM CUSTOMER EQUIPMENT ENGINEER Respiratory Infection (ALLIE), contact + droplet Comment:Patient classified as Low Risk for COVID-19 and has one negative COVID-19 test. Patient meets criteria for COVID-19 isolation discontinuation 07/04/2020 [place] Automatically added due to negative COVID-19 result. 07/04/2020 07/04/2020 07/04/2020 8:[address] COVID: Suspected 08/03/2020 08/03/2020 08/03/2020 10:50 PM CUSTOMER EQUIPMENT ENGINEER Respiratory Infection (ALLIE), contact + droplet Comment:08/04/2020 [...] documented as of this encounter Care Teams Stave Machine Tender Relationship Specialty Start Date End Date Cristobal Aguilera MD PCP - General 10/19/16 11/15/19 Cristobal Aguilera MD PCP - General 11/16/19 05/24/20 Prashanth Saldana PA [address] [place] [address] PCP - General Family Practice 05/25/20 Con Beltrán MD Referring Physician Pediatric Endocrinology 12/20/18 Azra Yarbrough, RN [address] [address] [facility] Outpatient Sound System Installer 11/16/19 12/15/19 Sidney Russell MD [address] [place] [address] Consulting Physician Gastroenterology 04/19/21 documented as of this encounter
--- OUTSIDE RECORDS SUMMARY | 2024-10-15 21:27 | XMS_ITS | Encounter Summary ---
Author Organization [facility] Address [address] [place] [address] Phone Care Team Providers Care Mother'S Helper Name Role Phone Prashanth Saldana Primary Care Provider [phone] Heidi Swift MD Unavailable Reason for Visit * Reason Comments Medication Refill Encounter Details Date Type Department Care Team (Late st Contact Info) Description 08/28/2021 Refill [facility] - Endocrinology - [place] [address] [place] [address] Heidi Swift MD [address] [address] Medication Refill Social History Tobacco [...] Coronavirus / COVID-19? Yes 08/01/2021 9:49 AM SMOKING PIPES CLEANER documented as of this encounter Miscellaneous Notes * Telephone Encounter - Eli Jones RN - 08/28/2021 9:00 AM SMOKING PIPES CLEANER Requested Prescriptions Pending Prescriptions Disp Refills ??? insulin lispro (HumaLOG) 100 UNIT/ML Solution [Pharmacy Med Name: HUMALOG 100 UNIT/ML VIAL] 30 mL 0 Sig: UP TO 100 UNITS/DAY PER INSULIN PUMP SETTINGS Next appt: 09/12/2021 ING PIPES CLEANER documented in this encounter Plan of Treatment Not on file documented as of this encounter Visit Diagnoses Not on filedocumented in this encounter Additional Health Concerns Infection Onset Date Last Indicated Resolved Time COVID - 19 04/13/2022 04/13/2022 04/13/2022 10:4 2 AM CDT COVID - 19 05/17/2022 05/17/2022 05/27/2022 12:1 6 AM CDT Respiratory Rule-Out 05/17/2022 05/17/2022 022 12:16 AM SMOKING PIPES CLEANER COVID - 19 06/27/2022 06/27/2022 07/07/2022 12:1 6 AM SMOKING PIPES CLEANER Influenza 06/27/2022 06/27/2022 07/04/2022 12:1 6 AM SMOKING PIPES CLEANER COVID - 19 04/05/2024 04/05/2024 04/05/2024 10:2 0 PM CDT documented as of this encounter Care Teams Mother'S Helper Relationship Specialty Start Date End Date Prashanth Saldana PAC [address] [place] [address] PCP - General Physician Pigment Pusher 04/03/19 Heidi Swift MD [address] [address] Consulting Physician Endocrinology 08/09/20 09/23/24 documented as of this encounter
--- OUTSIDE RECORDS SUMMARY | 2024-10-15 21:27 | XMS_ITS | Encounter Summary ---
Author Organization [facility] Address [address] [place] [address] Phone Care Team Providers Care Chief Enterprise Architect Name Role Phone Prashanth Saldana Primary Care Provider [phone] Heidi Swift MD Unavailable Reason for Visit * Reason Comments Medication Refill Encounter Details Date Type Department Care Team (Late st Contact Info) Description 09/17/2021 Refill [facility] - Endocrinology - [place] [address] [place] [address] Heidi Swift MD [address] [address] Medication Refill Social History Tobacco [...] Eli Jones RN - 09/19/2021 3:39 PM WOOL GROWER Requested Prescriptions Pending Prescriptions Disp Refills ??? Continuous Blood Gluc Transmit (Dexcom G6 Transmitter) Misc [Pharmacy Med Name: DEXCOM G6 TRANSMITTER] 3 Si EACH BY DOES NOT APPLY ROUTE EVERY 90 DAYS. CHANGE SENSOR EVERY 90 DAYS. Next appt: Message sent to schedule follow up. GROWER documented in this encounter Plan of Treatment [...] Respiratory Rule-Out 05/17/2022 05/17/2022 022 12:16 AM WOOL GROWER COVID - 19 06/27/2022 06/27/2022 07/07/2022 12:1 6 AM WOOL GROWER Influenza 06/27/2022 06/27/2022 07/04/2022 12:1 6 AM WOOL GROWER COVID - 19 04/05/2024 04/05/2024 04/05/2024 10:2 0 PM CDT documented as of this encounter Care Teams Chief Enterprise Architect Relationship Specialty Start Date End Date Prashanth Saldana PAC [address] [place] [address] PCP - General Physician Angular Js Developer 04/03/19 Heidi Swift MD [address] [address] Consulting Physician Endocrinology 08/09/20 09/23/24 documented as of this encounter
--- OUTSIDE RECORDS SUMMARY | 2024-10-15 21:27 | XMS_ITS | Encounter Summary ---
Author Organization [facility] Address [address] [place] [address] Phone Care Team Providers Care Dump Truck Operator Name Role Phone Prashanth Saldana Primary Care Provider [phone] Heidi Swift MD Unavailable Reason for Visit * Reason Comments Medication Refill Encounter Details Date Type Department Care Team (Late st Contact Info) Description 07/24/2021 Refill [facility] - Endocrinology - [place] [address] [place] [address] Heidi Swift MD [address] [address] Medication Refill Social History Tobacco [...] COVID-19? No / Unsure 07/07/2021 3:14 PM RIP TAILER documented as of this encounter Miscellaneous Notes * Telephone Encounter - Eli Jones RN - 07/25/2021 8:10 AM RIP TAILER Requested Prescriptions Pending Prescriptions Disp Refills ??? Continuous Blood Gluc Sensor (Dexcom G6 Sensor) Misc [Pharmacy Med Name: DEXCOM G6 SENSOR] Sig: CHANGE SENSOR EVERY 10 DAYS. Next appt: 08/01/2021 TAILER documented in this encounter Plan of Treatment [...] Respiratory Rule-Out 05/17/2022 05/17/2022 022 12:16 AM RIP TAILER COVID - 19 06/27/2022 06/27/2022 07/07/2022 12:1 6 AM RIP TAILER Influenza 06/27/2022 06/27/2022 07/04/2022 12:1 6 AM RIP TAILER COVID - 19 04/05/2024 04/05/2024 04/05/2024 10:2 0 PM CDT documented as of this encounter Care Teams Dump Truck Operator Relationship Specialty Start Date End Date Prashanth Saldana, [facility] [address] [place] [address] PCP - General Physician Healthcare Market Consultant 04/03/19 Heidi Swift MD [address] [address] Consulting Physician Endocrinology 08/09/20 09/23/24 documented as of this encounter
--- OUTSIDE RECORDS SUMMARY | 2024-10-15 21:27 | XMS_ITS | Clinical Summary ---
Author Organization [email or web address] Address [address] [place] [address] Care Team Providers Care Fur Mixer Name Role Phone Unavailable Primary Care Provider Unavailabl e Source Comments [email or web address],non-owned Affiliates and Associated Physician Practices is amultiple site organization consisting of ambulatory clinics and hospital sitesin [place], [place], [place] and [place]. This disclosure is being madepursuant to the Care Everywhere program and may not contain all information available regarding this patient. Last updated 18.[email or web address] Allergies No known active allergies Medications * [...] - 105 mg/dL 04/02/2020 3:39 AM CDT [facility] Sodium 137 136 - 145 mmol/L 04/02/2020 3:39 AM CDT [facility] Potassium 3.0(L) 3.5 - 5.1 mmol/L 04/02/2020 3:39 AM CDT [facility] Chloride 104 98 - 107 mmol/L 04/02/2020 3:39 AM CDT [facility] CO2 20(L) 23 - 31 mmol/L 04/02/2020 3:39 AM CDT [facility] Calcium 9.0 8.4 - 10.4 mg/dL 04/02/2020 3:39 AM CDT [facility] Anion Gap 13 8 - 16 mmol/L 04/02/2020 3:39 AM CDT [facility] BUN 6(L) 8.9 - 20.6 mg/dL 04/02/2020 3:39 AM CDT [facility] Creatinine 0.86 0.72 - 1.25 mg/dL 04/02/2020 3:39 AM CDT [facility] eGFR by MDRD >60 >60 mL/min/1.7 3m2 04/02/2020 3:39 AM CDT [facility] eGFR by MDRD >60 >60 mL/min/1.7 3m2 04/02/2020 3:39 AM CDT [facility] Blood BLOOD SPECIMEN / Unknown Lab Venipuncture / Unknown 04/02/2020 3:06 AM CDT 04/02/2020 3:20 AM CDT Robinson Wilkins MD LAB - CHEMISTRY ADEN [facility] Organization Address City/State/ZIP Co de Phone Number [facility] [address] [place] [address] * (ABNORMAL) HEMOGLOBIN A1C (04/01/2020 12:04 PM CDT) Hemoglobin A1c 8.9(H) 4.2 - 5.6 % 04/01/2020 1:31 PM CDT [facility] Estimated Average Glucose 209 mg/dL 04/01/2020 1:31 PM CDT [facility] Blood BLOOD SPECIMEN / Unknown Venipuncture / Unknown 04/01/2020 12:04 PM CDT 04/01/2020 12:08 PM CDT Narrative [facility] - 04/01/2020 1:31 PM CDT The following cutoff levels are recommended by [place] [employer]. A1c > 6.5% : considered [...] Wilkins MD LAB - CHEMISTRY ADEN [facility]E [facility] Organization Address City/State/ZIP Co de Phone Number [facility] [address] [place] [address] from Last 3 Months or Most Recently Relevant to Health Maintenance Advance Directives * Full Code (Latest Code Status on File) Date Activated Date Inactivated Comments 04/01/2020 1:52 PM 04/02/2020 1:54 PM
--- OUTSIDE RECORDS SUMMARY | 2024-10-15 21:27 | XMS_ITS | Referral Summary ---
Author Organization [facility] ospital Address [address] [place] [address] Care Team Providers Care Shot Polisher Name Role Phone Con Beltrán MD Unavailable [phone] Prashanth Saldana Primary Care Provider [phone] Sidney Russell MD Unavailable [phone] Allergies Active Allergy Reactions Criticality Noted Date [...] . Assessment & Plan (07/10/2022 9:22 AM STOCK PREPARER): This is a chronic condition which is not at goal. Unable to Download as he has a new pump and is not connected on [employer]. Type of insulin pump- tandem T slim [...] of less than 70. Encouraged to contact [employer] and have a new pump shipped Discussed [...] statin Assessment & Plan (07/10/2022 9:19 AM STOCK PREPARER): This is a chronic condition which is [...] G6 at home. He was seen in [facility], but missed appointment in the [...] prescribed. Assessment & Plan (08/04/2020 3:50 AM STOCK PREPARER): H/o pancreatitis attributed to hypertriglyceridemia. TGs 215 on 05/27/20. -Continue home fenofibrate and atorvastatin Resolved Problems Problem Noted Date Diagnosed Date Resolved Date Leukocytosis 04/18/2021 04/04/2022 Gallbladder sludge 04/05/2021 Marijuana abuse 04/05/2021 04/04/2022 JACK (acute kidney injury) ([facility]) 10/25/2020 04/04/2022 Diarrhea 10/25/2020 04/04/2022 Hypokalemia 08/04/2020 04/04/2022 Assessment & Plan (08/04/2020 3:59 AM STOCK PREPARER): K to 3.2 after hyperglycemia protocol s/p 40 mEq of IV K in ED. -CTM w/ BMP Nausea and vomiting 07/05/2020 04/04/20 22 Assessment & Plan (08/04/2020 4:10 AM STOCK PREPARER): Patient has chronic N/V, now presenting w/ 3 days of persistent N/V. No abdominal pain. Lipase 15 on presentation. +MJ use. DDx: cyclic vomiting vs. diabetic gastroparesis. -Zofran prn -Pepcid -Can trial Reglan -Encourage MJ cessation Assessment & Plan (07/05/2020 4:24 PM STOCK PREPARER): Etiology likely DKA. Other considerations are PUD [...] 04/04/2022 Assessment & Plan (07/05/2020 4:26 PM STOCK PREPARER): Etiology likely DKA. pH is 7.50 (alkalosis) [...] 04/04/2022 Assessment & Plan (08/04/2020 3:41 AM STOCK PREPARER): Patient multiple past hospitalizations for DKA, most recently in June presenting w/ DKA after 3 days of persistent N/V. BG was 338 w/ AG 18, bicarb 21, ketones 3.2. BG now in the 100s and AG close after hyperglycemia protocol. A1C 10.5 08/02/20. Is a patient of Dr. Swift at [facility] medical group in [place]. Last seen on 07/25 with plan for [...] f/u. Assessment & Plan (07/05/2020 4:21 PM STOCK PREPARER): DKA (ketones 1.4, BG 242, urine glucose [...] insulin regimen is needed at this time. clinical trial educator have talked to Peter and family [...] with diabetes mellitus due to underlying condition ([facility]) 04/04/2022 EKG abnormality 04/04/2022 Choledocholithiasis 04/04/20 Abdominal [...] on file Legal Sex Male 4:12 AM STOCK PREPARER Gender Identity Not on file Sexual Orientation [...] CDT 02/12/2024 7:42 PM CDT Nay Alford LIFE SCIENCES TEACHER LAB BLOOD ORDERABLES Final Resu lt Performing Organization Address [facility] Co de Phone Number [facility] [phone] [facility] [place] [address] * Thyroid Function Bivalve (02/12/2024 1:50 PM CDT) TSH 1.78 0.30 - 4.20 mcIUnit/mL Blood 02/12/2024 1:50 PM CDT 02/12/2024 7:06 PM CDT Nay Alford NP LAB BLOOD ORDERABLES Final Resu lt Performing Organization Address [facility] Co de Phone Number [facility] [phone] [place] [address] * Albumin Creatinine Ratio, Urine (02/12/2024 1:50 PM CDT) Albumin Ur 28.6 mg/L Comment: Interpretive Data No reference range established. Current interpretive data was last revised 2018. Creatinine Ur 159.2 mg/dL [facility] Comment: Interpretive Data No reference range established. Current interpretive data was last revised 2018. Albumin Creatinine Ratio, Ur 18 1 - 29 mg/g ALYSSA Urine 02/12/2024 1:50 PM CDT 02/12/2024 7:06 PM CDT us Nay Alford NP LAB URINE ORDERABLES Final Resu lt ALYSSA AHMADI [id number] [place] [address] * (ABNORMAL) Lipid panel (02/12/2024 1:50 PM [...] BLOOD ORDERABLES Final Resu lt ALYSSA AHMADI [id number] [place] [address] * DIABETES FOOT EXAM (04/08/2018) Diabetic Foot Exam Normal us Historical Provider MD HEALTH MAINTENANCE Final Result from Last 3 Months or Most Recently Relevant to Health Maintenance Insurance [facility] Advance Directives For more information, please contact: [phone] Documents on File Type Date Recorded Patient Home Designer Expl anation ADVANCE DIRECTIVE 05/26/2020 6:51 PM [...] 10:38 PM 07/05/2020 11:35 PM Care Teams Shot Polisher Relationship Specialty Start Date End Date Prashanth Saldana PA [address] [place] [address] PCP - General Family Practice 05/25/20 Con Beltrán MD Referring Physician Pediatric Endocrinology 12/20/18 Sidney Russell MD [address] [place] [address] Consulting Physician Gastroenterology 04/19/21
--- OUTSIDE RECORDS SUMMARY | 2024-10-15 21:27 | XMS_ITS | Encounter Summary ---
Author Organization [facility] Address [address] [place] [address] Phone Care Team Providers Care Cda Teacher Name Role Phone Prashanth Saldana Primary Care Provider [phone] Heidi Swift MD Unavailable Reason for Visit * Reason Comments Medication Refill Encounter Details Date Type Department Care Team (Late st Contact Info) Description 12/27/2021 Refill [facility] - Endocrinology - [place] [address] [place] [address] Heidi Swift MD [address] [address] Medication Refill Social History Tobacco [...] Notes * Telephone Encounter - Saadia Lawson, [facility] - 12/29/2021 11:37 AM CDT Patient calling requesting refill of: Requested Prescriptions Pending Prescriptions Disp Refills ??? 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 [...] Respiratory Rule-Out 05/17/2022 05/17/2022 022 12:16 AM MOBILE MECHANIC COVID - 19 06/27/2022 06/27/2022 07/07/2022 12:1 6 AM MOBILE MECHANIC Influenza 06/27/2022 06/27/2022 07/04/2022 12:1 6 AM MOBILE MECHANIC COVID - 19 04/05/2024 04/05/2024 04/05/2024 10:2 0 PM CDT documented as of this encounter Care Teams Cda Teacher Relationship Specialty Start Date End Date Prashanth Saldana PAC [address] [place] [id number] PCP - General Physician Audit Practice Intern 04/03/19 Heidi Swift MD [address] [address] Consulting Physician Endocrinology 08/09/20 09/23/24 documented as of this encounter
--- OUTSIDE RECORDS SUMMARY | 2024-10-15 21:27 | XMS_ITS | Clinical Summary ---
Author Organization [facility] Address [address] [place] [address] Phone Care Team Providers Care Net Lead Architect Name Role Phone Prashanth Saldana Primary Care Provider [phone] Allergies Active Allergy Reactions Criticality Noted Date [...] 1 Active Insulin Pen Needle (TechLite Pen [place]) 31G X 8 MM Misc USE TO [...] 1 Each 3 2 Active Glucose Blood (MagiqTouch Ultra) Strip TEST FOUR TIMES DAILY 300 Strip 5 2 Active ondansetron (Zofran ODT) 4 MG TABLET DISPERSIBLE Take 1 Tablet by mouth every 8 hours as needed for Nausea - 1st line. 10 Tablet 2 Active Continuous Blood Gluc Tow Truck Driver (Dexcom G6 Tow Truck Driver) Device USE TO CHECK GLUCOSE 4X DAILY. [...] Department Care Team Description 08/20/2024 4:25 AM ANVIL WORKER - 08/20/2024 5:07 AM ANVIL WORKER Emergency [facility] Emergency [address] [place] [address] Dawson Burr MD Eustachian tube dysfunction, left [...] drink = 0.6 oz pur e alcohol) [facility] Utilities Answer Date Recorded In the past [...] often do you attend chur ch or yazidism services? Never 12/07/2023 Do you belong to any clubs o r organizations such as yazidism groups, unions, fraternal or athletic groups, or [...] medical care, and heating? Somewhat hard 12/07/2023 [facility] [place] of Occupat ional Health - Occupational Stress [...] place to sleep or slept in a long-term (including now)? No 12/07/2023 Housing Stability Vital Sign Answer Eloy e Recorded In the last 12 months, was t here a time when you were not able to pay the mortgage or rent on time? No 04/05/2024 In the past 12 months, how m any times have you moved where you were living? 1 04/05/2024 At any time in the past 12 m [facility], were you homeless or living in a long-term (including now)? No 04/05/2024 Sexually Active Control Partners Comments Yes Female Sex and Gender Information Value Date Recorded Sex Assigned at Not on file Legal Sex Male 8:12 PM CDT Gender Identity Not on file Sexual Orientation Not on file Last Filed Vital Signs Vital Sign Reading Time Taken Comments Blood Pressure 150/93 08/20/2024 4:45 AM ANVIL WORKER Pulse 79 08/20/2024 4:45 AM ANVIL WORKER Temperature 35.9 C (96.7 F) 08/20/2024 4:29 AM ANVIL WORKER Respiratory Rate 17 08/20/2024 4:29 AM ANVIL WORKER Oxygen Saturation 100% 08/20/2024 4:45 AM ANVIL WORKER Inhaled Oxygen Concentration - - Weight 75.8 kg (167 lb 1.7 oz) 08/20/2024 4:29 A M ANVIL WORKER Height 167.6 cm (5' 6 ) 08/20/2024 4:29 AM ANVIL WORKER Body Mass Index 26.97 08/20/2024 4:29 AM ANVIL WORKER Plan of Treatment Health Maintenance Due Date [...] CDT LIPID PANEL Routine 06/24/2019 5:44 AM ANVIL WORKER from Last 3 Months or Most Recently Relevant to Health Maintenance Results * (ABNORMAL) Hemoglobin A1C (04/05/2024 4:39 PM CDT) HGB-A1C 10.4(H) 4.0 - 6.0 % 04/05/2024 5:05 PM CDT [facility] Est Average Glucose 251.8 mg/dL 04/05/2024 5:05 PM CDT [facility] Blood Venipuncture / Unknown 04/05/2024 4:39 PM CDT 04/05/2024 4:39 PM CDT Narrative [facility] - 04/05/2024 5:05 PM CDT HEMOGLOBIN A1C: DIABETIC PATIENTS: WELL-CONTROLLED: 6.2 - 7.0 INTERMEDIATE WELL-CONTROLLED: 7.0 - 9.0 POORLY-CONTROLLED: >9.0 us Ruth Ann Tejada APRN, CNP CHEMISTRY ORDERABLES Final Result [facility] [address] [place] [address] * (ABNORMAL) Comprehensive Metabolic Panel (Cmp) [id number] (12/07/2023 10:48 AM CDT) SODIUM 130(L) 136 - 145 mmol/L 12/07/2023 12:06 PM CDT [facility] POTASSIUM 3.4(L) 3.5 - 5.1 mmol/L 12/07/2023 12:06 PM CDT [facility] CHLORIDE 77(L) 98 - 107 mmol/L 12/07/2023 12:06 PM CDT [facility] CO2, VENOUS 23 22 - 30 mmol/L 12/07/2023 12:06 PM T [facility] ANION GAP 33.4(H) <18.0 mmol/L 12/07/2023 12:06 PM T [facility] GLUCOSE 377(H) 70 - 99 mg/dL 12/07/2023 12:06 PM T [facility] BUN 48(H) 9 - 21 mg/dL 12/07/2023 12:06 PM T [facility] CREATININE, BLOOD 2.80(H) 0.70 - 1.30 mg/dL 12/07/2023 12:06 PM T [facility] BUN/CREATININE RATIO 17 12 - 20 ratio 12/07/2023 12:06 PM [facility] TOTAL PROTEIN 8.4(H) 6.3 - 8.2 g/dL 12/07/2023 12:06 PM [facility] ALBUMIN 4.7 3.5 - 5.0 g/dL 12/07/2023 12:06 PM T [facility] A/G RATIO 1.3 1.0 - 2.2 12/07/2023 12:06 PM [facility] CALCIUM 9.3 8.7 - 10.5 mg/dL 12/07/2023 12:06 PM [facility] T BILI 1.1 0.2 - 1.2 mg/dL 12/07/2023 12:06 PM [facility] SGOT (AST) 32 5 - 34 U/L 12/07/2023 12:06 PM [facility] SGPT (ALT) 41 0 - 55 U/L 12/07/2023 12:06 PM [facility] ALKALINE PHOSPHATASE 115 40 - 150 U/L 12/07/2023 12:06 PM [facility] GFR, ESTIMATED 31(L) >=60 12/07/2023 12:06 PM [facility] Comment: Creatinine Clearance is the preferred criteria for selecting drug dose adjustments in renally impaired patients. The GFR is provided as additional pertinent clinical information. GFR is reported in mL/min/1.73 sq m. Calculation based on the Chronic Kidney Disease Epidemiology Collaboration (CKD- EPI) equation refit without adjustment for race. GFR, EST. 34(L) >=60 024 12:06 PM CDT [facility] GFR, EST. NONAFRICAN 28(L) >=60 12/07/2023 12:06 PM CDT [facility] Blood Venipuncture / Unknown 12/07/2023 10:48 AM CDT 12/07/2023 11:36 AM CDT Andres Peralta APRN, CNP CHEMISTRY ORDERABLES Fi nal Result [facility] [address] [place] [address] * (ABNORMAL) Lipid Panel AM (06/24/2019 5:44 AM ANVIL WORKER) CHOLESTEROL 141 <=200 mg/dL 06/24/2019 1:58 PM ANVIL WORKER [facility] TRIGLYCERIDES 158(H) <150 mg/dL 06/24/2019 1:58 PM ANVIL WORKER [facility] HDL CHOLESTEROL 30.4(L) >40 mg/dL 9 1:58 PM ANVIL WORKER [facility] LDL 79 5 - 130 mg/dL 06/24/2019 1:58 PM ANVIL WORKER [facility] VLDL 32 5 - 55 mg/dL 06/24/2019 1:58 PM ANVIL WORKER [facility] CHOL/HDL RATIO 4.6(H) 0.0 - 4.4 06/24/2019 1:58 PM ANVIL WORKER [facility] NON-HDL CHOLESTEROL 110.6 <130 mg/dL 06/24/2019 1:58 PM ANVIL WORKER [facility] LIPID FASTING 06/24/2019 1:58 PM ANVIL WORKER [facility] Blood specimen (specimen) BLOOD SPECIMEN / Unknown Venipuncture / Unknown 06/24/2019 5:44 AM ANVIL WORKER 06/24/2019 1:10 PM ANVIL WORKER Toni Orourke MD CHEMISTRY ORDERABLES Fin al Result [facility] [address] [place] [address] from Last 3 Months or Most Recently [...] measures to stabilize the patient. Care Teams Net Lead Architect Relationship Specialty Start Date End Date Prashanth Saldana, LINNETTE [address] [place] [id number] PCP - General Physician Centrifuge Separator Tender 04/03/19
--- NOTE | 2024-10-15 21:29 | PC.NURSE ---
JAMAAL AT THE BEDSIDE REPEATING BLOOD SUGAR
[2024-10-15 21:31] LABS: Lipase 14 U/L (16-77)
--- NOTE | 2024-10-15 21:33 | PC.NURSE ---
XRAY OUTSIDE THE DOOR
[2024-10-15 21:34] LABS: Alanine Aminotransferase 26 U/L (16-63); Albumin Level 4.6 g/dL (3.4-5.0); Alkaline Phosphatase 106 U/L (46-116); Anion Gap 16 mmol/L (4-12); Aspartate Amino Transferase 18 U/L (15-37); Bilirubin,Total 0.8 mg/dL (0.00-1.00); Blood Urea Nitrogen 26 mg/dL (7-18); Calcium 9.9 mg/dL (8.5-10.1); Carbon Dioxide 21 mmol/L (21-32); Chloride 97 mmol/L (98-108); Estimated CRCL calculation 67 ml/min; Estimated Glomerular Filt Rate > 60; Glucose 330 mg/dL (70-99); Magnesium 1.6 mg/dL (1.8-2.4); Osmolality Calculated 295 mOsm/kg (285-295); Potassium 3.7 mmol/L (3.5-5.1); Sodium 134 mmol/L (136-145); Total Protein 8.3 g/dL (6.4-8.2)
--- NOTE | 2024-10-15 21:36 | PC.NURSE ---
GRANDMOTHER WANTS MORE ZOFRAN. DR RAMOS HEARD GRANDMOTHER. STATES OK
[2024-10-15 21:37] LABS: Lactic Acid Reflex 3.5 mmol/L (0.4-2.0)
--- NOTE | 2024-10-15 21:37 | PC.NURSE ---
UNABLE TO COMPLETE EKG DUE TO VOMITING AND BEING RESTLESS.
--- NOTE | 2024-10-15 21:39 | PC.NURSE ---
Addendum entered by Telma Guzman RN 10/15/24 21:50: NO NEW ORDERS Original Note: REQUESTED INSULIN FOR ELEVATED GLUCOSE OF 330 PER LAB AND ANION GAP OF 16
--- NOTE | 2024-10-15 21:39 | PC.NURSE ---
DR RAMOS WAS AT THE BEDSIDE. PATIENT NOW WANTS TO GO HOME. WANTS TO SIGN AMA FORM TO LEAVE
--- NOTE | 2024-10-15 21:41 | PC.NURSE ---
GRANDMOTHER REQUESTING ANOTHER BAG OF IV FLUIDS AND ANOTHER DOSE OF ZOFRAN. THEN THEY WANT TO LEAVE AMA. EDUCATION GIVEN ABOUT DKA. CONTINUES TO WANT TO LEAVE
[2024-10-15 21:46] LABS: Glucose Point of Care 262 mg/dl (65-105)
--- NOTE | 2024-10-15 21:50 | PC.NURSE ---
PATIENT REFUSING CHEST XRAY.
--- NOTE | 2024-10-15 21:51 | PC.NURSE ---
GRANDMOTHER HAS TURNED INSULIN PUMP BACK ON. READING ON HER GLUCOSE MONITOR IS 240. RAVI HINTON, AT THE BEDSIDE ATTEMPTING TO GET NEW BLOOD PRESSURE.
[2024-10-15 21:53] VITALS: BP 164/108
[2024-10-15 21:57] LABS: Influenza A QL RT-PCR Negative (Negative); Influenza B QL RT-PCR Negative (Negative); RSV RNA, RT-PCR Negative (Negative); SARS-CoV-2 RNA PCR Negative (Negative)
--- NOTE | 2024-10-15 21:57 | PC.NURSE ---
XRAY NOW BACK AT THE BEDSIDE AFTER DR RAMOS SPOKE WITH THE PATIENT
--- NOTE | 2024-10-15 22:03 | PC.NURSE ---
PATIENT NOW LAYING DOWN ON STRETCHER. COVERED WITH BLANKETS. NO ACTIVE VOMITING
--- NOTE | 2024-10-15 22:12 | PC.NURSE ---
DR RAMOS AT THE BEDSIDE. PATIENT LAYING DOWN. NO ACTIVE VOMITING. PATIENT STILL GOING TO LEAVE AMA AFTER IV FLUIDS AND NEW BLOOD GLUCOSE. ASKED PATIENT TO SIGN AMA FORM. GRANDMOTHER STATES CAN WE WAIT UNTIL THE FLUIDS ARE DONE. HE IS FINALLY RESTING . THIS RN WALKED OUT OF ROOM AFTER SAYING OK . DIFFICULT GRANDMOTHER AND PATIENT TO CARE FOR.
--- NOTE | 2024-10-15 22:20 | PC.NURSE ---
GRANDMOTHER ASKED FOR A THIRD BAG OF IV FLUIDS. THIS RN STATES I DONT THINK SO . GRANDMOTHER STATES YOU CAN ASK! IN HATEFUL TONE. DR RAMOS NOTIFIED.
--- NOTE | 2024-10-15 22:42 | PC.NURSE ---
PATIENT RESTING QUIETLY ON STRETCHER. NO ACTIVE VOMITING. GRANDMOTHER DOES NOT WANT PATIENT TO BE MESSED WITH. WILL ALLOW FLUIDS TO INFUSE THEN RECHECK BLOOD GLUCOSE. CONTINUES TO WANT TO LEAVE AMA
--- NOTE | 2024-10-15 22:56 | PC.NURSE ---
PATIENT RESTING QUIETLY ON STRETCHER. COVERED IN BLANKETS. GRANDMOTHER AND GIRLFRIEND SITTING IN THE ROOM. IV FLUIDS CONTINUE TO INFUSE. CALL LIGHT IN REACH. LIGHTS TURNED OFF
--- NOTE | 2024-10-15 23:16 | PC.NURSE ---
IV TO GRAVITY HAS SLOWED DOWN. IV SITE WITHOUT REDNESS OR SWELLING. IV TUBING PLACED ON PUMP
[2024-10-15 23:18] LABS: Reflex Lactic Acid Yes or No Add Lactic
--- NOTE | 2024-10-15 23:37 | PC.NURSE ---
PATIENT GETTING LOUD AND CURSING AT FAMILY MEMBERS IN THE ROOM. ASKED PATIENT IF EVERYTHING IS OK. PATIENT STATES TAKE THIS IV OUT. I AM READY TO GO HOME. THIS BED FUCKING SUCKS . PATIENT SIGNED AMA FORM. IV LINE REMOVED. EDUCATION WAS GIVEN ABOUT DKA, RISKS AND BENEFITS OF LEAVING. INFORMED PATIENT THE HE COULD IF HE DOES NOT MONITOR/CONTROL SYMPTOMS. PATIENT WAS NOTIFIED OF ELEVATED LAB VALUES. TOLD TO FOLLOW UP WITH PCP AMILCAR.
== END 2024-10-15 23:40 | disposition left against medical advice (07) ==
PROVIDERS: Emergency Provider Emergency Medicine; PCP Physician Assistant
DX: E10.10 Type 1 diabetes mellitus with ketoacidosis without coma (principal); K52.9 Noninfective gastroenteritis and colitis, unspecified; Z20.822 Contact with and (suspected) exposure to COVID-19
CPT/HCPCS: 36415; 71045; 80053; 82948; 83605; 83690; 83735; 84100; 85025; 87637; 93005; 96361; 96374; 96375; 96376; 99284; J2405; J2765; J7030

== ENCOUNTER 2024-10-16 11:46 | Emergency (ER) | payer OTHER, SELFPAY ==
--- NOTE | ~2024-10-16 | CT_ITS ---
EXAMINATION: CT abdomen pelvis w con DATE: 10/16/2024 14:16 INDICATION: Nausea and vomiting. Abdominal pain. TECHNIQUE: Computed tomography (CT) of the abdomen and pelvis was performed with 100 mL Omnipaque 350 intravenous contrast. Automated exposure control and iterative reconstruction technique were employe d. The dose-length product was 303.70 mGy-cm. COMPARISON: None. FINDINGS: The visualized portions of the lung bases are clear without pneumonia or pleural effusion. The heart size is normal. No pericardial effusion. There is wall thickening of the esophagus, consist ent with esophagitis. The liver and gallbladder are normal. There are changes of cholecystectomy. The pancreas, adrenal glands, and kidneys are normal. The prostate is mildly enlarged. There are no dila segundo loops of bowel. The appendiceal diameter is 11 mm. There are no pathologically enlarged lymph nod es. There is no ascites. There is mild thoracic spondylosis. IMPRESSION: 1. Esophagitis. 2. Appendiceal diameter of 11 mm, which is indeterminate for appendicitis. Correlate with physical ex am. Reviewed, dictated and finalized at location A. IMPRESSION: 1. Esophagitis. 2. Appendiceal diameter of 11 mm, which is indeterminate for appendicitis. Manisha elate with physical exam.
[2024-10-16 11:48] VITALS: BP 193/102; PULSE 101; RESP 18; TEMP 36.6; O2SAT 100
--- NOTE | 2024-10-16 12:27 | ED.NAVMDI ---
HPI - Nausea/Vomiting/Diarrhea General Chief complaint: Nausea/Vomiting/Diarrhea Stated complaint: throwing up Time Seen by Provider: 10/16/24 12:12 Source: patient Mode of arrival: ambulatory Limitations: no limitations History of Present Illness HPI Narrative: patient is a 24-year-old male with diabetes 1 insulin dependent here with nausea vomiting for the past few hours. Significantly the patient was seen in the ER here last night and planned for transfer to a higher level care facility but they left AMA. Further they ended up at that other hospital and were admitted into the ICU for insulin drip therapy. He was discharged home this morning from the ICU. Family says that his gap has closed at this time and that he was ready for discharge this morning. He is now back with nausea vomiting for the past few hours. Accu-Chek is 182. MD elicited complaint: nausea and vomiting Pertinent past history: other ( Diabetic type 1 insulin dependent / insulin pump , cholecystectomy) Onset (ago): hour(s) ( 3) Description of vomiting: watery Description of diarrhea: other ( no blood or diarrhea) Associated nausea: Yes Associated abdominal pain: No Location of pain: none Radiation: other ( no pain) Pain consistency: other ( no pain) Severity: moderate Pain scale (0-10): 0 Quality: other ( no pain) Exacerbating factors: none Relieving factors: none Context: other ( diabetic type 1 / insulin-dependent/insulin pump here with nausea vomiting and recent DKA as of last night) Associated symptoms: denies other symptoms Treatment prior to arrival: other ( he is back on his insulin pump at this time; he sees diaper folder every 3 months) Related Data Allergies Allergy/AdvReac Type Severity Reaction Status Date / Time haloperidol (From Haldol) Allergy Unknown Unknown Verified 10/15/24 21:38 Review of Systems Review of Systems: All systems reviewed & are unremarkable except as noted in HPI and below Constitutional: Constitutional: Reports no additional constitutional complaints Eyes: Eyes: Reports no additional eye complaints ENT: Reports system reviewed and no additional complaints, except as documented Cardiovascular: Cardiovascular: Reports no additional cardiovascular complaints Respiratory: Respiratory: Reports no additional respiratory complaints Gastrointestinal: Gastrointestinal: Reports no additional gastrointestinal complaints Genitourinary: Genitourinary: Reports no additional male genitourinary complaints Musculoskeletal: Musculoskeletal: Reports no additional musculoskeletal complaints Integumentary/Breasts: Skin/Breast: Reports system reviewed and no additional complaints, except as docu Neurologic: Reports system reviewed and no additional complaints, except as documented Psychiatric: Psychiatric: Reports no additional psychiatric complaints Endocrine: Endocrine: Reports no additional endocrine complaints Hematologic/Lymphatic: Hematologic/Lymphatic: Reports no additional hematologic/lymphatic complaints Allergic/Immunologic: Allergic/Immunologic: Reports no additional allergic/immunologic complaints [facility] Past Medical History Medical History Type 1 diabetes Course Vital Signs Vital signs: Vital Signs Temperature 36.6 C 10/16/24 11:48 Pulse Rate 101 H 10/16/24 11:48 Respiratory Rate 18 10/16/24 11:48 Blood Pressure 193/102 H 10/16/24 11:48 Pulse Oximetry 100 10/16/24 11:48 Oxygen Delivery Room Air 10/16/24 11:48 Temperature 36.9 C 10/16/24 14:03 Pulse Rate 100 10/16/24 14:03 Respiratory Rate 20 10/16/24 14:03 Blood Pressure 176/86 H 10/16/24 14:03 Pulse Oximetry 99 10/16/24 14:03 Oxygen Delivery Room Air 10/16/24 14:03 MDM - Nausea/Vomiting/Diarrhea MDM Narrative Medical decision making narrative: patient is diabetic type 1 insulin dependent here with nausea vomiting and recent DKA as of last night. We will restart the DKA workup at this time. Septic workup[place] [address], intractable nausea and vomiting and unclear origin of disease process. We will transfer for higher level medical care and evaluation. Lab Data Attestation: I reviewed the patient's lab results. 10/16/24 12:43 10/16/24 12:43 Labs: Lab Results 10/16/24 10/16/24 10/16/24 Range/Units 12:26 12:43 13:57 WBC 20.0 H* (4.8-10.8) K/mm3 RBC 4.42 L (4.70-6.10) M/mm3 Hgb 12.5 L (14.0-18.0) g/dL Hct 38.3 L (40.0-54.0) % MCV 86.7 (78.0-102.0) fL MCH 28.3 (27.0-31.0) pg MCHC 32.6 (32-36) g/dL RDW 13.7 (11.6-14.4) % Plt Count 298 (150-420) K/mm3 MPV 9.4 (8.7-11.0) fl Immature Gran % (Auto) 0.6 H (0.0-0.0) % Neut % (Auto) 88.3 H (50.0-70.0) % Lymph % (Auto) 6.0 L (18.0-42.0) % [place] % (Auto) 4.9 (2.0-11.0) % Eos % (Auto) 0.0 L (1.0-6.0) % Baso % (Auto) 0.2 (0.0-1.0) % Lymph # (Auto) 1.20 (1.10-4.50) K/mm3 [place] # (Auto) 0.98 H (0.10-0.90) K/mm3 Eos # (Auto) 0.00 L (0.02-0.50) K/mm3 Baso # (Auto) 0.04 (0.00-0.10) K/mm3 Abs Immat Gran (auto) 0.11 H (0.00-0.00) K/mm3 Absolute Neuts (auto) 17.64 H (1.70-7.20) K/mm3 Absolute Nucleated RBC 0.00 (0.00-0.00) K/mm3 Nucleated RBC % 0.0 (0-0.0) % Sodium 140 (136-145) mmol/L Potassium 3.8 (3.5-5.1) mmol/L Chloride 102 (98-108) mmol/L Carbon Dioxide 28 (21-32) mmol/L Anion Gap 10 (4-12) mmol/L BUN 25 H (7-18) mg/dL Creatinine 1.36 H (0.70-1.30) mg/dL Estim Creat Clear Calc 70 ml/min Estimated GFR > 60 (59 - ) Glucose 212 H (70-99) mg/dL Hemoglobin A1c 8.0 H (<5.7) % Calculated Osmolality 300 H (285-295) mOsm/kg Lactic Acid 1.4 (0.4-2.0) mmol/L Calcium 8.6 (8.5-10.1) mg/dL Magnesium 1.5 L (1.8-2.4) mg/dL Total Bilirubin 0.7 (0.00-1.00) mg/dL AST 20 (15-37) U/L ALT 21 (16-63) U/L Alkaline Phosphatase 83 (46-116) U/L Total Protein 7.2 (6.4-8.2) g/dL Albumin 3.9 (3.4-5.0) g/dL Lipase 10 L (16-77) U/L Urine Color Yellow (Yellow) Urine Appearance Clear (Clear) Urine pH 6.0 (5.0-8.0) Ur Specific [place] 1.025 H (1.010-1.020) Urine Protein 3+ H (Negative) Urine Glucose (UA) 2+ H (Negative) Urine Ketones 3+ H (Negative) Ur Blood (Man) Trace-intact H (Negative) Urine Nitrate Negative (Negative) Urine Bilirubin Negative (Negative) Urine Urobilinogen 0.2 (0.2-1.0) mg/dL Leukocyte Esterase Rfl Negative (Negative) FABIANA/UL Urine RBC 0-2 (0-2) /hpf Urine WBC 0-3 (0-3) /hpf Ur Squamous Epith Cells Few (Few) /hpf Urine Bacteria 2+ (None) /hpf Urine Mucus Moderate H /lpf Urine Opiates Screen Negative (Negative) Urine Methadone Screen Negative (Negative) Ur Barbiturates Screen Negative (Negative) Ur Phencyclidine Scrn Negative (Negative) Ur Amphetamine Screen Negative (Negative) U Benzodiazepines Scrn Negative (Negative) Urine Cocaine Screen Negative (Negative) U Cannabinoids Screen Positive A (Negative) Acetone Level Negative (Negative) ABG Data ABG results: 10/16/24 12:43 Puncture Site Right radial ABG pH 7.48 H ABG pCO2 33.9 L ABG pO2 93.4 H ABG HCO3 24.8 ABG O2 Saturation 96.6 ABG Base Excess 1.7 Oxyhemoglobin 95.9 O2 Delivery Device Room air O2 Liters/Min 0.0 Attestation: I personally reviewed and interpreted this ABG as follows: Interpretation: stable ranges Imaging Data Attestation: I personally reviewed and interpreted this imaging study as follows: Radiologist's impression: CT scan of the abdomen and pelvis with contrast shows IMPRESSION: 1. Esophagitis. 2. Appendiceal diameter of 11 mm, which is indeterminate for appendicitis. Correlate with physical exam. Discharge Plan Discharge Clinical Impression: Intractable nausea and vomiting, Acute dehydration, JACK (acute kidney injury), Esophagitis Leukocytosis Qualifiers: Leukocytosis type: unspecified Qualified Code(s): D72.829 - Elevated white blood cell count, unspecified Type 1 diabetes Qualifiers: Diabetes mellitus complication status: without complication Qualified Code(s): E10.9 - Type 1 diabetes mellitus without complications Patient Disposition: Acute Care Hospital Condition: Stable Patient Language: Sinhala Prescriptions: No Action ondansetron 4 mg tablet,disintegrating 4 mg PO Q6H PRN (Reason: nausea and vomiting) Qty: 14 0RF ondansetron 4 mg tablet,disintegrating 4 mg PO Q6H PRN (Reason: nausea and vomiting) Qty: 14 0RF Follow-up/Referrals: Les,REEMA Arizmendi [Primary Care Provider] - Time of Disposition: 15:36
--- OUTSIDE RECORDS SUMMARY | 2024-10-16 12:32 | XMS_ITS | Encounter Summary ---
Author Organization [employer] Care Team Providers Care Deburrer Strip Name Role Phone Prashanth Saldana Braulio ANGLIN Primary Care Provider [phone] Encounter Details Date Type Department Care Team (Latest Contact Info) Description 10/16/2024 Travel Social History Tobacco Use Types Packs/Day Years Used Date Smoking Tobacco: Never Smokeless Tobacco: Never Alcohol Use Standard Drinks/Week Comments No 0 (1 standard drink = 0.6 oz pur e alcohol) [facility] Utilities Answer Date Recorded In the past 12 months has [employer], gas, oil, or water [employer] threatened to shut off services in your home? No 10/16/2024 Social Connection and Isolat ion Panel [NHANES] Answer Date Recorded In a typical week, how many times do you talk on the phone with family, friends, or neighbors? More than three times a week 10/16/2024 How often do you get togethe r with friends or relatives? More than three times a week 10/16/2024 How often do you attend chur ch or christian services? Never 10/16/2024 Do you belong to any clubs o r organizations such as sabianist groups, unions, fraternal or athletic groups, or school groups? No 10/16/2024 How often do you attend meet ings of the clubs or organizations you belong to? Never 10/16/2024 Are you , , di vorced, , never , or living with a partner? Never 10/16/2024 AUDIT-C Answer Date Recorded Q1: How often do you have a drink containing alcohol? Never 10/16/2024 Q2: How many drinks containi ng alcohol do you have on a typical day when you are drinking? Patient does not drink Q3: How often do you have si x or more drinks on one occasion? Never 10/16/2024 Overall Financial Resource Strain (CARDIA) Answe r Date Recorded How hard is it for you to pa y for the very basics like food, housing, medical care, and heating? Somewhat hard 10/16/2024 [facility] - Occupational Stress Questionnaire Answer Date Recorded Do you feel stress - tense, restless, nervous, or anxious, or unable to sleep at night because your mind is troubled all the time - these days? Not at all 10/16/2024 Exercise Vital Sign Answer Date Recorde d On average, how many days pe r week do you engage in moderate to strenuous exercise (like a brisk walk)? 5 days 10/16/2024 On average, how many minutes do you engage in exercise at this level? 60 min 10/16/2024 Hunger Vital Sign Answer Date Recorded Within the past 12 months, y ou worried that your food would run out before you got the money to buy more. Never true 10/17/19 25 Within the past 12 months, t he food you bought just didn't last and you didn't have money to get more. Never true 10/16/2024 PRAPARE - Transportation Answer Date Re corded In the past 12 months, has l ack of transportation kept you from medical appointments or from getting medications? No 09/20 In the past 12 months, has l ack of transportation kept you from meetings, work, or from getting things needed for daily living? No 10/16/2024 Housing Stability Vital Sign Answer Eloy e Recorded In the last 12 months, was t here a time when you were not able to pay the mortgage or rent on time? Patient declined 12/07/19 24 In the last 12 months, how many places have you lived? 2 12/07/2023 In the last 12 months, was t here a time when you did not have a steady place to sleep or slept in a group home (including now)? No 12/07/2023 Housing Stability Vital Sign Answer Eloy e Recorded In the last 12 months, was t here a time when you were not able to pay the mortgage or rent on time? No 10/16/2024 In the past 12 months, how m any times have you moved where you were living? 1 10/16/2024 At any time in the past 12 m [facility], were you homeless or living in a group home (including now)? No 10/16/2024 Sexually Active Control Partners Comments Yes Female Sex and Gender Information Value Date Recorded Sex Assigned at Not on file Legal Sex Male 8:12 PM CDT Gender Identity Not on file Sexual Orientation Not on file documented as of this encounter Functional Status * Audit-C Score Answer Date of Assessment Author 0 10/16/2024 6:46 AM CDT Ron Patino RN * Question Answer Date of Assessment Author Q1: How often do you have a drink containing alcohol? Never 10/16/2024 6:46 AM Jordan Rodriguez RN Q2: How many drinks containing alcohol do you have on a typical day when you are drinking? Patient does not drink 10/16/2024 6:46 AM Jordan Rodriguez RN Q3: How often do you have six or more drinks on one occasion? Never 10/16/2024 6:46 AM Jordan Rodriguez RN documented as of this encounter Plan of Treatment Not on file documented as of this encounter Visit Diagnoses Not on filedocumented in this encounter Additional Health Concerns Infection Onset Date Last Indicated Resolved Time COVID - 19 10/16/2024 10/16/2024 10/16/2024 7:05 AM CDT documented as of this encounter Care Teams Deburrer Strip Relationship Specialty Start Date End Date Prashanth Saldana PAC [address] [place] [id number] PCP - General Physician [employer] 04/03/19 documented as of this encounter
--- OUTSIDE RECORDS SUMMARY | 2024-10-16 12:32 | XMS_ITS | Clinical Summary ---
Author Organization [facility] Address [address] [place] [address] Phone Care Team Providers Care Area Counselor Name Role Phone Prashanth Saldana Primary Care Provider Allergies Active Allergy Reactions Criticality Noted Date Comments Haloperidol Shortness of Breath,Anxiety 024 Medications Insulin Syringe-Needle U-100 (INSULIN SYRINGE .5CC/31GX5/16 ) 31G X 5/16 0.5 ML Misc Three times a day 300 Each 3 9 Active Blood Glucose Monitoring Suppl Device Test four times daily 1 Each 0 Active Lancets Misc Test four times daily 400 Lancet 3 0 Active gabapentin (NEURONTIN) 300 MG Capsule Take 100 mg by mouth 3 times daily as needed for Other (neuropathy) . 1 Active Insulin Pen Needle (TechLite Pen [place]) 31G X 8 MM Misc USE TO INJECT INSULIN 4 TIMES A DAY 400 Pen Needle 3 1 Active metoclopramide (REGLAN) 10 MG Tablet Take 1 Tablet by mouth 4 times daily as needed for Nausea - 2nd line. 10 Tablet 1 Active Continuous Blood Gluc Transmit (Dexcom G6 Transmitter) MiscIndications: Type 1 diabetes mellitus without complication (HCC) 1 EACH BY DOES NOT APPLY ROUTE EVERY 90 DAYS. CHANGE SENSOR EVERY 90 DAYS. 1 Each 3 2 Active Glucose Blood (OneTouch Ultra) Strip TEST FOUR TIMES DAILY 300 Strip 5 2 Active ondansetron (Zofran ODT) 4 MG TABLET DISPERSIBLE Take 1 Tablet by mouth every 8 hours as needed for Nausea - 1st line. 10 Tablet 2 Active Continuous Blood Gluc Offset Label Rewinder (Dexcom G6 Offset Label Rewinder) Device USE TO CHECK GLUCOSE 4X DAILY. 1 Each 2 Active Continuous Blood Gluc Sensor (Dexcom G6 Sensor) MiscIndications: Type 1 diabetes mellitus without complication (HCC) CHANGE SENSOR EVERY 10 DAYS 3 Each 1 2 Active insulin lispro (HumaLOG) 100 UNIT/ML Solution INJECT UP TO 100 UNITS DAILY PER INSULIN PUMP SETTINGS. 30 mL 2 Active busPIRone (BUSPAR) 10 MG Tablet Take 10 mg by mouth 2 times daily. Active Continuous Glucose Sensor (Dexcom G7 Sensor) Misc 1 Device by Other route continuous. 4 Active pantoprazole (PROTONIX) 40 MG Tablet Delayed Response Take 1 Tablet by mouth daily. 30 Tablet 4 Active prochlorperazine (COMPAZINE) 25 MG Suppository 25 mg by Rectal route every 12 hours as needed for Nausea - 1st line. Active fenofibrate (TRICOR) 145 MG Tablet Take 145 mg by mouth daily. 2 9 10/17/19 25 Discontinu ed(Med List Clean Up) rosuvastatin (CRESTOR) 20 MG Tablet Take 20 mg by mouth nightly. 4 10/17/19 25 Discontinu ed(Med List Clean Up) methylPREDNISolo ne (MEDROL DOSPACK) 4 MG Tablet Therapy Pack See product package insert for dosing schedule 21 Tablet 5 10/17/19 25 Discontinu ed(Med List Clean Up) Active Problems Problem Noted Date Diagnosed Date Diabetic ketoacidosis withou t coma associated with other specified diabetes mellitus 10/16/2024 Intractable cyclical vomiting 10/16/2024 Hematemesis 10/16/2024 High anion gap metabolic acidosis 10/16/2024 Hypophosphatemia 04/06/2024 Elevated lactic acid level 04/06/2024 [...] Encounters Date Type Department Care Team Description 10/16/2024 2:21 AM CDT - 10/16/2024 8:15 AM CDT Hospital Encounter [facility] [address] [place] [address] Mayur Mcdonough MD Carmicheal, MD Cindy Wright, MD Tish Diabetic ketoacidosis without coma associated with type 1 diabetes mellitus (HCC) Discharge Disposition: Left Against Medical Advice 10/16/2024 Travel 08/20/2024 4:25 AM SHERIFF SERGEANT - 08/20/2024 5:07 AM SHERIFF SERGEANT Emergency [facility] [address] [place] [address] Dawson Burr MD Eustachian tube dysfunction, left [...] drink = 0.6 oz pur e alcohol) [facility] [employer] Answer Date Recorded In the past 12 months has enavu, gas, oil, or water [email or web address] threatened to shut off services in your [...] often do you attend chur ch or jehovah's witness services? Never 10/16/2024 Do you belong to any clubs o r organizations such as confucianism groups, unions, fraternal or athletic groups, or [...] medical care, and heating? Somewhat hard 10/16/2024 [facility] of Occupat ional Health - Occupational Stress [...] place to sleep or slept in a jail (including now)? No 12/07/2023 Housing Stability Vital Sign Answer Eloy e Recorded In the last 12 months, was t here a time when you were not able to pay the mortgage or rent on time? No 10/16/2024 In the past 12 months, how m any times have you moved where you were living? 1 10/16/2024 At any time in the past 12 m [facility], were you homeless or living in a jail (including now)? No 10/16/2024 Sexually Active Control Partners Comments Yes Female Sex and Gender Information Value Date Recorded Sex Assigned at Not on file Legal Sex Male 8:12 PM CDT Gender Identity Not on file Sexual Orientation Not on file Last Filed Vital Signs Vital Sign Reading Time Taken Comments Blood Pressure 139/90 10/16/2024 7:03 AM CDT Pulse 127 10/16/2024 7:03 AM CDT Temperature 37.4 C (99.3 F) 10/16/2024 2:27 AM CDT Respiratory Rate 15 10/16/2024 7:03 AM CDT Oxygen Saturation 99% 10/16/2024 7:03 AM CDT Inhaled Oxygen Concentration - - Weight 75.8 kg (167 lb) 10/16/2024 2:27 AM CDT Height 167.6 cm (5' 6 ) 10/16/2024 2:27 AM CDT Body Mass Index 26.95 10/16/2024 2:27 AM CDT Plan of Treatment Health Maintenance [...] exists SARS-COV-2 Immunization ( season) 2024 Diabetes: Hemoglobin A1c 04/18/2025 025, 09/03/2024, 04/05/2024, Additional history exists Diabetes: Nephropathy Screening 10/16/2025 10/16/2024, 12/07/2023, 03/26/2023, Additional history exists Respiratory Syncytial Virus (RSV) Immunization (Adult) (1 - 1-dose 75+ series) 2074 Hepatitis B Immunization Completed 000, 03/13/2000, 1999, Additional history exists Human Papillomavirus (HPV) Immunization Completed 05/09/2016, 03/23/2015, 05/27/2014 Meningococcal Immunization (ACWY) Completed 05/09/2016, 04/17/2012 Rotavirus Immunization Aged Out No lo nger eligible based on patient's age to complete this topic Procedures Procedure Name Priority Date/Time Associated Diagnosis Comments POCT GLUCOSE Routine 10/16/2024 8:03 AM CDT POCT GLUCOSE Routine 10/16/2024 7:13 AM CDT BASIC METABOLIC PANEL W/ CALCIUM TOTAL Timed 10/16/2024 6:20 AM CDT MRSA NASAL PCR Routine 10/16/2024 6:20 AM CDT MRSA NASAL BY PCR Routine 10/16/2024 6:2 0 AM CDT RSV,SARS-COV-2,INFLUE NZA A&B BY PCR STAT 10/16/2024 6:20 AM CDT POCT GLUCOSE Routine 10/16/2024 6:09 AM CDT POCT GLUCOSE STAT 10/16/2024 5:45 AM CDT XR CHEST SINGLE VIEW PORTABLE STAT 10/16/2024 4:52 AM CDT POCT GLUCOSE STAT 10/16/2024 4:39 AM CDT CBC WITH AUTO DIFFERENTIAL STAT 10/16/2024 2:39 AM CDT HEMOGLOBIN A1C W/ ESTIMATED GLUCOSE STAT 10/16/2024 2:39 AM CDT BLOOD GASES, VENOUS W/ O2 SATURATION STAT 10/16/2024 2:39 AM CDT LIPASE STAT 10/16/2024 2:39 AM CDT ETHYL ALCOHOL (ETHANOL) STAT 10/16/2024 2:39 AM CDT CMP (COMPREHENSIVE METABOLIC PANEL) STAT 10/16/2024 2:39 AM CDT COMPLETE BLOOD COUNT (CBC) WITH DIFF STAT 10/16/2024 2:39 AM CDT CRITICAL CARE Routine 10/16/2024 2:34 AM CDT POCT GLUCOSE STAT 10/16/2024 2:26 AM CDT LIPID PANEL Routine 06/24/2019 5:44 AM SHERIFF SERGEANT from Last 3 Months or Most Recently Relevant to Health Maintenance Results * POCT Glucose (10/16/2024 8:03 AM CDT) Only the most recent of6 resultswithin the time period is included. [facility] GLUCOSE,BEDSIDE POCT 94 70 - 99 mg/dL 10/16/2024 8:08 AM CDT [facility] Blood 10/16/2024 8:03 AM CDT 10/16/2024 8:08 AM CDT us None Provider POINT OF CARE TESTING Final Resu lt [facility] [address] [place] [address] * MRSA NASAL PCR (10/16/2024 6:20 AM CDT) [facility] MRSA PCR RESULT Negative Negative, Invalid 10/16/2024 7:39 AM CDT [facility] Other NASOPHARYNGEAL SWAB / Unknown Non-Phlebotomy Collection / Unknown 10/16/2024 6:20 AM CDT 10/16/2024 6:25 AM CDT us Sharita Kahn APRN, HUMAN RESOURCE PROFESSIONAL MICROBIOLOGY - GENERAL OR DERABLES Final Result Performing Organization Address City/[facility]/ZIP Co de Phone Number [facility] [address] [place] [address] * RSV,SARS-COV-2,INFLUENZA A&B BY PCR (10/16/2024 6:20 AM CDT) [facility] FLU A Negative Negative, Error 10/16/2024 7:05 AM CDT [facility] FLU B Negative Negative 10/16/2024 7:05 AM CDT [facility] RESP SYNC VIRUS Negative Negative 7:05 AM CDT [facility] SARSCOV2 NOT DETECTED (Reference Range for this test is Not Detected) 10/16/2024 7:05 AM CDT [facility] Comment:This test was perfor med by a Reverse Flow Manager PCR Method. Swab NASOPHARYNGEAL WASHINGS / Unknown Non-Phlebotomy Collection / Unknown 10/16/2024 6:20 AM CDT 10/16/2024 6:47 AM CDT us Sharita Kahn APRN, HUMAN RESOURCE PROFESSIONAL MICROBIOLOGY - GENERAL OR DERABLES Final Result [facility] [address] [place] [address] * (ABNORMAL) BMP with Ca, Total - every 4 hours x 48 Hours (10/16/2024 6:20 AM CDT) SODIUM 143 136 - 145 mmol/L 10/16/2024 6:47 AM CDT [facility] POTASSIUM 4.1 3.5 - 5.1 mmol/L 10/16/2024 6:47 AM CDT [facility] CHLORIDE 113(H) 98 - 107 mmol/L 10/16/2024 6:47 AM CDT [facility] CO2, VENOUS 22 22 - 30 mmol/L 10/16/2024 6:47 AM CDT [facility] ANION GAP 12.1 <18.0 mmol/L 10/16/2024 6:47 AM T [facility] GLUCOSE 107(H) 70 - 99 mg/dL 10/16/2024 6:47 AM T [facility] BUN 24(H) 9 - 21 mg/dL 10/16/2024 6:47 AM T [facility] CREATININE, BLOOD 1.15 0.70 - 1.30 mg/dL 10/16/2024 6:47 AM [facility] BUN/CREATININE RATIO 21(H) 12 - 20 ratio 10/16/2024 6:47 AM [facility] CALCIUM 9.0 8.7 - 10.5 mg/dL 10/16/2024 6:47 AM T [facility] GFR, ESTIMATED >60 >=60 10/16/2024 6:47 AM [facility] Comment: Creatinine Clearance is the preferred criteria for selecting drug dose adjustments in renally impaired patients. The GFR is provided as additional pertinent clinical information. GFR is reported in mL/min/1.73 sq m. Calculation based on the Chronic Kidney Disease Epidemiology Collaboration (CKD- EPI) equation refit without adjustment for race. GFR, EST. >60 >=60 025 6:47 AM T [facility] GFR, EST. NONAFRICAN >60 >=60 10/16/2024 6:47 AM [facility] Blood Venipuncture / Unknown 10/16/2024 6:20 AM CDT 10/16/2024 6:35 AM CDT us Sharita Kahn TERMITE CONTROL SERVICER, HUMAN RESOURCE PROFESSIONAL CHEMISTRY ORDERABLES Stephie l Result [facility] [address] [place] [address] * XR CHEST SINGLE VIEW PORTABLE (10/16/2024 4:52 AM CDT) Anatomical Region Laterality Modality Chest N/A Digital Radiogra phy 10/16/2024 5:00 AM CDT Impressions 10/16/2024 5:02 AM CDT IMPRESSION: No acute cardiopulmonary abnormality. Narrative 10/16/2024 5:02 AM CDT EXAM DESCRIPTION: XR CHEST SINGLE VIEW PORTABLE REASON FOR STUDY: cough, epigastic pain, N/V and hyperglycemia today. HX: HTN, DM TECHNIQUE: AP semi upright radiographic view(s) of the chest. COMPARISON: 04/05/2024 and 03/26/2023 FINDINGS: LUNGS: No discrete consolidation. Minimal linear opacity in the retrocardiac left lung base favors atelectasis. No effusion or pneumothorax. HEART/MEDIASTINUM: Cardiac silhouette and mediastinal contours are within normal limits. LINES/TUBES: None. BONES: No acute osseous abnormality. THIS IS AN ELECTRONICALLY VERIFIED FINAL REPORT 10/16/2024 5:00 AM - Electronically signed by Ju Beckett M.D. TW: TW Report ID: [id number] Reading Location: [id number] Procedure Note Ju Beckett MD - 10/16/2024 EXAM DESCRIPTION: XR CHEST SINGLE VIEW PORTABLE REASON FOR STUDY: cough, epigastic pain, N/V and hyperglycemia today. HX: HTN, DM TECHNIQUE: AP semi upright radiographic view(s) of the chest. COMPARISON: 04/05/2024 and 03/26/2023 FINDINGS: LUNGS: No discrete consolidation. Minimal linear opacity in the retrocardiac left lung base favors atelectasis. No effusion or pneumothorax. HEART/MEDIASTINUM: Cardiac silhouette and mediastinal contours are within normal limits. LINES/TUBES: None. BONES: No acute osseous abnormality. THIS IS AN ELECTRONICALLY VERIFIED FINAL REPORT 10/16/2024 5:00 AM - Electronically signed by Ju Beckett M.D. TW: TW Report ID: [id number] Reading Location: [id number] IMPRESSION: No acute cardiopulmonary abnormality. us Mayur Mcdonough MD IMG DIAGNOSTIC ORDER DENIS Final Result * (ABNORMAL) Hemoglobin A1C w/ Estimated Glucose (10/16/2024 2:39 AM CDT) HGB-A1C 7.9(H) 4.0 - 6.0 % 10/16/2024 6:43 AM CDT [facility] Est Average Glucose 180.0 mg/dL 10/16/2024 6:43 AM CDT [facility] Blood Venipuncture / Unknown 10/16/2024 2:39 AM CDT 10/16/2024 2:46 AM CDT Narrative [facility] - 10/16/2024 6:43 AM CDT HEMOGLOBIN A1C: DIABETIC PATIENTS: WELL-CONTROLLED: 6.2 - 7.0 INTERMEDIATE WELL-CONTROLLED: 7.0 - 9.0 POORLY-CONTROLLED: >9.0 Specimens containing greater than 5% of Hemoglobin F may result in lower than expected % HbA1C results. us Sharita Kahn APRN, HUMAN RESOURCE PROFESSIONAL CHEMISTRY ORDERABLES Stephie baez Result [facility] [address] [place] [address] * (ABNORMAL) CBC with Auto Differential (10/16/2024 2:39 AM CDT) WBC 15.02(H) 4.00 - 12.00 10(3)/[facility] 10/16/2024 3:06 AM CDT [facility] RBC 4.90 4.40 - 5.80 10(6)/mcL 10/16/2024 3:06 AM CDT [facility] HEMOGLOBIN (HGB) 14.3 13.0 - 16.5 g/dL 10/16/2024 3:06 AM CDT [facility] HEMATOCRIT (HCT) 42.9 38.0 - 50.0 % 10/16/2024 3:06 AM CDT [facility] MCV 87.6 82.0 - 96.0 fL 10/16/2024 3:06 AM CDT [facility] MCH 29.2 26.0 - 32.0 pg 10/16/2024 3:06 AM CDT [facility] MCHC 33.3 31.0 - 36.0 g/dL 10/16/2024 3:06 AM CDT [facility] PLATELET COUNT 315 140 - 440 10(3)/[facility] 10/16/2024 3:06 AM CDT [facility] RDW 13.5 11.8 - 15.5 % 10/16/2024 3:06 AM CDT [facility] MPV 10.6 8.0 - 12.6 fL 10/16/2024 3:06 AM CDT [facility] NEUTROPHILS 87.6(H) 40.0 - 68.0 % 10/16/2024 3:06 AM CDT [facility] LYMPHOCYTES 9.3(L) 19.0 - 49.0 % 10/16/2024 3:06 AM CDT [facility] MONOCYTES 2.7(L) 3.0 - 13.0 % 10/16/2024 3:06 AM CDT [facility] EOSINOPHILS 0.0 0.0 - 8.0 % 10/16/2024 3:06 AM CDT [facility] BASOPHILS 0.4 0.0 - 1.0 % 10/16/2024 3:06 AM CDT [facility] ABSOLUTE NEUTROPHILS 13.16(H) 1.40 - 5.30 10(3)/[facility] 10/16/2024 3:06 AM CDT [facility] ABSOLUTE LYMPHOCYTES 1.39 0.90 - 3.30 10(3)/[facility] 10/16/2024 3:06 AM CDT [facility] ABSOLUTE MONOCYTES 0.41 0.10 - 0.90 10(3)/[facility] 10/16/2024 3:06 AM CDT [facility] ABSOLUTE EOSINOPHIL 0.00 0.00 - 0.50 10(3)/[facility] 10/16/2024 3:06 AM CDT [facility] ABSOLUTE BASOPHILS 0.06 0.00 - 0.10 10(3)/[facility] 10/16/2024 3:06 AM CDT [facility] NRBC PER 100 WBC 0 10/17/19 3:06 AM CDT [facility] Blood Venipuncture / Unknown 10/16/2024 2:39 AM CDT 10/16/2024 2:46 AM CDT us Mayur Mcdonough MD HEMATOLOGY ORDERABLE S Final Result [facility] [address] [place] [address] * (ABNORMAL) Blood Gas, Venous (10/16/2024 2:39 AM CDT) PH VENOUS 7.46(H) 7.34 - 7.43 10/16/2024 3:04 AM CDT [facility] PCO2 (VENOUS) 23(L) 41 - 51 mmHg 10/16/2024 3:04 AM CDT [facility] PO2 VENOUS 133(H) 30 - 50 mmHg 10/16/2024 3:04 AM CDT [facility] O2 SAT JOHNNIE, MEASURED 99(H) 60 - 85 % 09/20 3:04 AM CDT [facility] BICARBONATE 16.7(L) 22.0 - 26.0 mmol/L 10/16/2024 3:04 AM CDT [facility] BASE VENOUS -4.6(L) -2.0 - 3.0 mmol/L 10/16/2024 3:04 AM CDT [facility] CARBOXYHEMOGLOBIN 0.5 0.0 - 5.0 % 10/16/2024 3:04 AM CDT [facility] METHEMOGLOBIN 0.7 0.0 - 1.5 % 10/16/2024 3:04 AM T [facility] JOHNNIE Blood Gas Venipuncture / Unknown 10/16/2024 2:39 AM CDT 10/16/2024 2:50 AM CDT Narrative [facility] - 10/16/2024 3:04 AM CDT Interpretation - The usual approach to interpreting a VBG consists of using the venous measurements to estimate the corresponding arterial values, then using these estimated values for clinical decision-making exactly as if an ABG had been performed. The difference between the venous measurements and the arterial measurements depends upon the site of venous sampling and varies among laboratories. Correlation with arterial blood gases - Although arterial blood gas analysis is more accurate than venous analysis for the assessment of oxygenation, measurement of PCO2, pH, and HCO3 are similar with some minor adjustments: The central venous pH is usually 0.03 to 0.05 pH units lower than the arterial pH and the PCO2 is usually 4 to 5 mmHg higher, with little or no increase in HCO3. Mixed venous blood (ie, SvO2 drawn from a pulmonary artery catheter) gives results similar to central venous blood (ie, ScvO2 drawn from a central venous catheter). The peripheral venous pH is approximately 0.02 to 0.04 pH units lower than the arterial pH, the venous serum HCO3 concentration is approximately 1 to 2 meq/L higher, and the venous PCO2 is approximately 3 to 8 mmHg higher. There are no venous to arterial conversions for ScvO2, SvO2, or peripheral venous oxyhemoglobin saturation (PvO2). Importantly, sufficient variability between arterial and venous blood gas values may exist such that periodic correlation between arterial and venous blood gas values is always prudent. us Mayur Raudel Willard Mcdonough MD CHEMISTRY ORDERABLES Final Result Performing Organization Address City/[facility]/ZIP Co de Phone Number [facility] [address] [place] [address] * Lipase (10/16/2024 2:39 AM CDT) LIPASE 8 8 - 78 U/L 10/16/2024 3:36 AM CDT [facility] Blood Venipuncture / Unknown 10/16/2024 2:39 AM CDT 10/16/2024 2:46 AM CDT Mayur Mcdonough MD CHEMISTRY ORDERABLES Final Result Performing Organization Address City/[facility] Co de Phone Number [facility] [address] [place] [address] * ETOH Level (10/16/2024 2:39 AM CDT) ETHANOL <10 <10 mg/dL 10/16/2024 3:3 6 AM CDT [facility] Blood Venipuncture / Unknown 10/16/2024 2:39 AM CDT 10/16/2024 2:46 AM CDT Mayur Mcdonough MD CHEMISTRY ORDERABLES Final Result Performing Organization Address City/[facility] Co de Phone Number [facility] [address] [place] [address] * (ABNORMAL) CMP (10/16/2024 2:39 AM CDT) SODIUM 141 136 - 145 mmol/L 10/16/2024 3:36 AM CDT [facility] POTASSIUM 4.2 3.5 - 5.1 mmol/L 10/16/2024 3:36 AM CDT [facility] CHLORIDE 107 98 - 107 mmol/L 10/16/2024 3:36 AM CDT [facility] CO2, VENOUS 15(L) 22 - 30 mmol/L 10/16/2024 3:36 AM CDT [facility] ANION GAP 23.2(H) <18.0 mmol/L 10/16/2024 3:36 AM T [facility] GLUCOSE 256(H) 70 - 99 mg/dL 10/16/2024 3:36 AM CDT [facility] BUN 23(H) 9 - 21 mg/dL 10/16/2024 3:36 AM CDT [facility] CREATININE, BLOOD 1.21 0.70 - 1.30 mg/dL 10/16/2024 3:36 AM T [facility] BUN/CREATININE RATIO 19 12 - 20 ratio 10/16/2024 3:36 AM T [facility] TOTAL PROTEIN 7.9 6.0 - 8.0 g/dL 10/16/2024 3:36 AM CDT [facility] ALBUMIN 4.7 3.5 - 5.0 g/dL 10/16/2024 3:36 AM T [facility] A/G RATIO 1.5 1.0 - 2.2 10/16/2024 3:36 AM T [facility] CALCIUM 9.2 8.7 - 10.5 mg/dL 10/16/2024 3:36 AM T [facility] T BILI 0.7 0.2 - 1.2 mg/dL 10/16/2024 3:36 AM CDT [facility] SGOT (AST) 28 <43 U/L 10/16/2024 3:36 AM CDT [facility] SGPT (ALT) 17 <56 U/L 10/16/2024 3:36 AM CDT [facility] ALKALINE PHOSPHATASE 78 40 - 150 U/L 10/16/2024 3:36 AM CDT [facility] GFR, ESTIMATED >60 >=60 10/16/2024 3:36 AM CDT [facility] Comment: Creatinine Clearance is the preferred criteria for selecting drug dose adjustments in renally impaired patients. The GFR is provided as additional pertinent clinical information. GFR is reported in mL/min/1.73 sq m. Calculation based on the Chronic Kidney Disease Epidemiology Collaboration (CKD- EPI) equation refit without adjustment for race. GFR, EST. >60 >=60 025 3:36 AM CDT [facility] GFR, EST. NONAFRICAN >60 >=60 10/16/2024 3:36 AM CDT [facility] Blood Venipuncture / Unknown 10/16/2024 2:39 AM CDT 10/16/2024 2:46 AM CDT us Mayur Mcdonough MD CHEMISTRY ORDERABLES Final Result [facility] [address] [place] [address] * Critical Care (10/16/2024 2:34 AM CDT) Narrative Mayur Mcdonough MD - 10/16/2024 2:34 AM CDT Mayur Mcdonough MD 10/16/2024 4:31 AM Critical Care Performed by: Mayur Mcdonough MD Authorized by: Mayur Mcdonough MD Critical care provider statement: Critical care time (minutes): 36. Critical care was necessary to treat or prevent imminent or life-threatening deterioration of the following conditions: Metabolic crisis Critical care was time spent personally by me on the following activities: Blood draw for specimens, development of treatment plan with patient or surrogate, discussions with consultants, ordering and performing treatments and interventions, ordering and review of laboratory studies, ordering and review of radiographic studies, pulse oximetry, re-evaluation of patient's condition, examination of patient and evaluation of patient's response to treatment I assumed direction of critical care for this patient from another provider in my specialty: no Care discussed with: admitting provider us Mayur Mcdonough MD PROCEDURE/MINOR SURG ICAL ORDERABLES Final Result * (ABNORMAL) Lipid Panel AM (06/24/2019 5:44 AM SHERIFF SERGEANT) CHOLESTEROL 141 <=200 mg/dL 06/24/2019 1:58 PM SHERIFF SERGEANT [facility] TRIGLYCERIDES 158(H) <150 mg/dL 06/24/2019 1:58 PM SHERIFF SERGEANT [facility] HDL CHOLESTEROL 30.4(L) >40 mg/dL 9 1:58 PM SHERIFF SERGEANT [facility] LDL 79 5 - 130 mg/dL 06/24/2019 1:58 PM SHERIFF SERGEANT [facility] VLDL 32 5 - 55 mg/dL 06/24/2019 1:58 PM SHERIFF SERGEANT [facility] CHOL/HDL RATIO 4.6(H) 0.0 - 4.4 06/24/2019 1:58 PM SHERIFF SERGEANT [facility] NON-HDL CHOLESTEROL 110.6 <130 mg/dL 06/24/2019 1:58 PM SHERIFF SERGEANT [facility] LIPID FASTING 06/24/2019 1:58 PM [facility] Blood specimen (specimen) BLOOD SPECIMEN / Unknown Venipuncture / Unknown 06/24/2019 5:44 AM SHERIFF SERGEANT 06/24/2019 1:10 PM SHERIFF SERGEANT Toni Orourke MD CHEMISTRY ORDERABLES Fin al Result [facility] [address] [place] [address] from Last 3 Months or Most Recently Relevant to Health Maintenance Advance Directives * Full Code (Latest Code Status on File) Date Activated Date Inactivated Comments 10/16/2024 7:21 AM CPR-Full Treat ment: FULL ARREST: Attempt Resuscitation/CPR wit intubation and mechanical ventilation. PRE-ARREST: Use entire range of life support measures to stabilize the patient. * Full Code Date Activated Date Inactivated Comments 04/05/2024 7:29 PM 10/16/2024 7:21 AM CPR-Full West atment: FULL ARREST: Attempt Resuscitation/CPR [...] measures to stabilize the patient. Care Teams Area Counselor Relationship Specialty Start Date End Date Prashanth Saldana, PAC [address] [place] [address] PCP - General Physician Naphthalene Operator Helper 04/03/19
--- OUTSIDE RECORDS SUMMARY | 2024-10-16 12:32 | XMS_ITS | Encounter Summary ---
Author Organization [facility] Address [address] [place] [address] Phone Care Team Providers Care Senior Net Programmer Name Role Phone Prashanth Saldana Primary Care Provider [phone] Heidi Swift MD Unavailable Reason for Visit * Reason Comments Medication Refill Encounter Details Date Type Department Care Team (Late st Contact Info) Description 08/28/2021 Refill [facility] - Endocrinology - [place] #2 [place] [address] Heidi Swift MD [address] [address] Medication Refill Social History Tobacco [...] Coronavirus / COVID-19? Yes 08/01/2021 9:49 AM CONSULTANT documented as of this encounter Miscellaneous Notes * Telephone Encounter - Eli Jones RN - 08/28/2021 9:00 AM CONSULTANT Requested Prescriptions Pending Prescriptions Disp Refills ??? insulin lispro (HumaLOG) 100 UNIT/ML Solution [Pharmacy Med Name: HUMALOG 100 UNIT/ML VIAL] 30 mL 0 Sig: UP TO 100 UNITS/DAY PER INSULIN PUMP SETTINGS Next appt: 09/12/2021 ULTANT documented in this encounter Plan of Treatment Not on file documented as of this encounter Visit Diagnoses Not on filedocumented in this encounter Additional Health Concerns Infection Onset Date Last Indicated Resolved Time COVID - 19 04/13/2022 04/13/2022 04/13/2022 10:4 2 AM CDT COVID - 19 05/17/2022 05/17/2022 05/27/2022 12:1 6 AM CDT Respiratory Rule-Out 05/17/2022 05/17/2022 022 12:16 AM CONSULTANT COVID - 19 06/27/2022 06/27/2022 07/07/2022 12:1 6 AM CONSULTANT Influenza 06/27/2022 06/27/2022 07/04/2022 12:1 6 AM CONSULTANT COVID - 19 04/05/2024 04/05/2024 04/05/2024 10:2 0 PM CDT COVID - 19 10/16/2024 10/16/2024 10/16/2024 7:05 AM CDT documented as of this encounter Care Teams Senior Net Programmer Relationship Specialty Start Date End Date Prashanth Saldana PAC [address] [place] [address] PCP - General Physician Lens And Frames Prescription Clerk 04/03/19 Heidi Swift MD [address] [address] Consulting Physician Endocrinology 08/09/20 09/23/24 documented as of this encounter
--- OUTSIDE RECORDS SUMMARY | 2024-10-16 12:32 | XMS_ITS | Encounter Summary ---
Author Organization [facility] Address [address] [place] [address] Phone Care Team Providers Care Window Installation Subcontractor Name Role Phone Prashanth Saldana Primary Care Provider [phone] Heidi Swift MD Unavailable Reason for Visit * Reason Comments Medication Refill Encounter Details Date Type Department Care Team (Late st Contact Info) Description 09/17/2021 Refill [facility] - Endocrinology - [place] #2 [place] [address] Heidi Swift MD #[address] [address] Medication Refill Social History Tobacco [...] Eli Jones RN - 09/19/2021 3:39 PM STUDENT COUNSELLOR Requested Prescriptions Pending Prescriptions Disp Refills ??? Continuous Blood Gluc Transmit (Dexcom G6 Transmitter) Misc [Pharmacy Med Name: DEXCOM G6 TRANSMITTER] 3 Si EACH BY DOES NOT APPLY ROUTE EVERY 90 DAYS. CHANGE SENSOR EVERY 90 DAYS. Next appt: Message sent to schedule follow up. ENT COUNSELLOR documented in this encounter Plan of Treatment [...] Respiratory Rule-Out 05/17/2022 05/17/2022 022 12:16 AM STUDENT COUNSELLOR COVID - 19 06/27/2022 06/27/2022 07/07/2022 12:1 6 AM STUDENT COUNSELLOR Influenza 06/27/2022 06/27/2022 07/04/2022 12:1 6 AM STUDENT COUNSELLOR COVID - 19 04/05/2024 04/05/2024 04/05/2024 10:2 0 PM CDT COVID - 19 10/16/2024 10/16/2024 10/16/2024 7:05 AM CDT documented as of this encounter Care Teams Window Installation Subcontractor Relationship Specialty Start Date End Date Prashanth Saldana PAC [address] [place] [address] PCP - General Physician Beverage Specialist 04/03/19 Heidi Swift MD #[address] [address] Consulting Physician Endocrinology 08/09/20 09/23/24 documented as of this encounter
--- OUTSIDE RECORDS SUMMARY | 2024-10-16 12:32 | XMS_ITS | Encounter Summary ---
Author Organization [facility] Address [address] [place] [address] Phone Care Team Providers Care Power Plant Engineer Name Role Phone Prashanth Saldana Primary Care Provider [phone] Heidi Swift MD Unavailable Reason for Visit * Reason Comments Medication Refill Encounter Details Date Type Department Care Team (Late st Contact Info) Description 12/27/2021 Refill [facility] - Endocrinology - [place] #2 [place] [address] Heidi Swift MD #[address] [address] Medication Refill Social History Tobacco [...] Notes * Telephone Encounter - Saadia Lawson, [facility] - 12/29/2021 11:37 AM CDT Patient calling requesting refill of: Requested Prescriptions Pending Prescriptions Disp Refills ??? 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 [...] Respiratory Rule-Out 05/17/2022 05/17/2022 022 12:16 AM SCHOOL TRAFFIC GUARD COVID - 19 06/27/2022 06/27/2022 07/07/2022 12:1 6 AM SCHOOL TRAFFIC GUARD Influenza 06/27/2022 06/27/2022 07/04/2022 12:1 6 AM SCHOOL TRAFFIC GUARD COVID - 19 04/05/2024 04/05/2024 04/05/2024 10:2 0 PM CDT COVID - 19 10/16/2024 10/16/2024 10/16/2024 7:05 AM CDT documented as of this encounter Care Teams Power Plant Engineer Relationship Specialty Start Date End Date Prashanth Saldana PAC [address] [place] [address] PCP - General Physician Swinging Cut Off Saw Operator 04/03/19 Heidi Swift MD #[address] [address] Consulting Physician Endocrinology 08/09/20 09/23/24 documented as of this encounter
--- OUTSIDE RECORDS SUMMARY | 2024-10-16 12:32 | XMS_ITS | Clinical Summary ---
Author Organization [facility] Address [address] [place] [address] Care Team Providers Care Field Services Manager Name Role Phone Con Beltrán MD Unavailable [phone] Prashanth Saldana Primary Care Provider [phone] Sidney Russell MD Unavailable [phone] Allergies Active Allergy Reactions Criticality Noted Date [...] . Assessment & Plan (07/10/2022 9:22 AM SOCIAL WORKER CLINICAL): This is a chronic condition which is not at goal. Unable to Download as he has a new pump and is not connected on [employer]. Type of insulin pump- tandem T slim [...] of less than 70. Encouraged to contact [employer] and have a new pump shipped Discussed [...] statin Assessment & Plan (07/10/2022 9:19 AM SOCIAL WORKER CLINICAL): This is a chronic condition which is [...] G6 at home. He was seen in [facility], but missed appointment in the adult diabetes [...] prescribed. Assessment & Plan (08/04/2020 3:50 AM SOCIAL WORKER CLINICAL): H/o pancreatitis attributed to hypertriglyceridemia. TGs 215 on 05/27/20. -Continue home fenofibrate and atorvastatin Resolved Problems Problem Noted Date Diagnosed Date Resolved Date Leukocytosis 04/18/2021 04/04/2022 Gallbladder sludge 04/05/2021 Marijuana abuse 04/05/2021 04/04/2022 JACK (acute kidney injury) ([facility]) 10/25/2020 04/04/2022 Diarrhea 10/25/2020 04/04/2022 Hypokalemia 08/04/2020 04/04/2022 Assessment & Plan (08/04/2020 3:59 AM SOCIAL WORKER CLINICAL): K to 3.2 after hyperglycemia protocol s/p 40 mEq of IV K in ED. -CTM w/ BMP Nausea and vomiting 07/05/2020 04/04/20 22 Assessment & Plan (08/04/2020 4:10 AM SOCIAL WORKER CLINICAL): Patient has chronic N/V, now presenting w/ 3 days of persistent N/V. No abdominal pain. Lipase 15 on presentation. +MJ use. DDx: cyclic vomiting vs. diabetic gastroparesis. -Zofran prn -Pepcid -Can trial Reglan -Encourage MJ cessation Assessment & Plan (07/05/2020 4:24 PM SOCIAL WORKER CLINICAL): Etiology likely DKA. Other considerations are PUD [...] 04/04/2022 Assessment & Plan (07/05/2020 4:26 PM SOCIAL WORKER CLINICAL): Etiology likely DKA. pH is 7.50 (alkalosis) [...] 04/04/2022 Assessment & Plan (08/04/2020 3:41 AM SOCIAL WORKER CLINICAL): Patient multiple past hospitalizations for DKA, most recently in June presenting w/ DKA after 3 days of persistent N/V. BG was 338 w/ AG 18, bicarb 21, ketones 3.2. BG now in the 100s and AG close after hyperglycemia protocol. A1C 10.5 08/02/20. Is a patient of Dr. Swift at [facility] medical group in [place]. Last seen on 07/25 with plan for [...] f/u. Assessment & Plan (07/05/2020 4:21 PM SOCIAL WORKER CLINICAL): DKA (ketones 1.4, BG 242, urine glucose [...] insulin regimen is needed at this time. wellness educator have talked to Peter and family [...] with diabetes mellitus due to underlying condition ([facility]/HCC) 04/04/2022 EKG abnormality 04/04/2022 Choledocholithiasis 04/04/20 Abdominal pain 04/04/2022 Medical History Medical History Date Comments Type 1 diabetes mellitus (HCC) D iabetes type 1; Comments: [facility] 11/23/2015 - Hx Other Medical high lipids; Co mments: [facility] 11/23/2015 - Hx Other Medical pancreatitis; C omments: [facility] 11/23/2015 - Pancreatitis Asthma Hypertension Hyperlipidemia Diarrhea of presumed infectious origin 12/16/2018 Abdominal pain Choledocholithiasis Diabetic ketoacidosis associ ated with type 1 diabetes mellitus (HCC) 02/17/2018 Diabetic ketoacidosis withou t coma associated with diabetes mellitus due to underlying condition ([facility]) Diarrhea 10/25/2020 EKG abnormality Elevated blood [...] on file Legal Sex Male 4:12 AM SOCIAL WORKER CLINICAL Gender Identity Not on file Sexual Orientation [...] BLOOD ORDERABLES Final Resu lt ALYSSA AHMADI [id number] [place] [address] * Thyroid Function [place] (02/12/2024 1:50 PM CDT) TSH 1.78 0.30 - 4.20 mcIUnit/mL Blood 02/12/2024 1:50 PM CDT 02/12/2024 7:06 PM CDT Nay Alford ORTHODONTIC LAB TECHNICIAN LAB BLOOD ORDERABLES Final Resu lt Performing Organization Address [facility] de Phone Number ALYSSA [address] [address] [facility] [place] [address] * Albumin Creatinine Ratio, Urine (02/12/2024 1:50 PM CDT) Albumin Ur 28.6 mg/L Comment: Interpretive Data No reference range established. Current interpretive data was last revised 2018. Creatinine Ur 159.2 mg/dL ALYSSA Comment: Interpretive Data No reference range established. Current interpretive data was last revised 2018. Albumin Creatinine Ratio, Ur 18 1 - 29 mg/g [facility] Urine 02/12/2024 1:50 PM CDT 02/12/2024 7:06 PM CDT Nay Alford ORTHODONTIC LAB TECHNICIAN LAB URINE ORDERABLES Final Resu lt Performing Organization Address [facility] de Phone Number ALYSSA [address] [address] [facility] [place] [address] * (ABNORMAL) Lipid panel (02/12/2024 1:50 PM [...] for 8 hours or more?->Yes Nay Alford ORTHODONTIC LAB TECHNICIAN LAB BLOOD ORDERABLES Final Resu lt ALYSSA [address] [place] [address] * DIABETES FOOT EXAM (04/08/2018) Diabetic Foot Exam Normal Historical Provider MD HEALTH MAINTENANCE Final Result from Last 3 Months or Most Recently Relevant to Health Maintenance [place] [address] [place] [address] [facility] [place] [place] [address] [place] [address] Advance Directives For more information, please contact: [phone] Documents on File Type Date Recorded Patient Pattern Hanger Expl anation ADVANCE DIRECTIVE 05/26/2020 6:51 PM [...] 10:38 PM 07/05/2020 11:35 PM Care Teams Field Services Manager Relationship Specialty Start Date End Date Prashanth Saldana PA [address] [place] [address] PCP - General Family Practice 05/25/20 Con Beltrán MD Referring Physician Pediatric Endocrinology 12/20/18 Sidney Russell MD [address] [place] [address] Consulting Physician Gastroenterology 04/19/21
--- OUTSIDE RECORDS SUMMARY | 2024-10-16 12:32 | XMS_ITS | Clinical Summary ---
Author Organization [facility] Address [address] [facility] [place] [address] Care Team Providers Care Wire Brush Operator Name Role Phone Unavailable Primary Care Provider Unavailabl e Source Comments [facility],non-owned Affiliates and Associated Physician Practices is amultiple site organization consisting of ambulatory clinics and hospital sitesin [place], [place], [place] and [place]. This disclosure is being madepursuant to the Care Everywhere program and may not contain all information available regarding this patient. Last updated 18.[facility] Allergies No known active allergies Medications * [...] - 105 mg/dL 04/02/2020 3:39 AM CDT [facility] Sodium 137 136 - 145 mmol/L 04/02/2020 3:39 AM CDT [facility] Potassium 3.0(L) 3.5 - 5.1 mmol/L 04/02/2020 3:39 AM CDT [facility] Chloride 104 98 - 107 mmol/L 04/02/2020 3:39 AM CDT [facility] CO2 20(L) 23 - 31 mmol/L 04/02/2020 3:39 AM CDT [facility] Calcium 9.0 8.4 - 10.4 mg/dL 04/02/2020 3:39 AM CDT [facility] Anion Gap 13 8 - 16 mmol/L 04/02/2020 3:39 AM CDT [facility] BUN 6(L) 8.9 - 20.6 mg/dL 04/02/2020 3:39 AM CDT [facility] Creatinine 0.86 0.72 - 1.25 mg/dL 04/02/2020 3:39 AM CDT [facility] eGFR by MDRD >60 >60 mL/min/1.7 3m2 04/02/2020 3:39 AM CDT [facility] eGFR by MDRD >60 >60 mL/min/1.7 3m2 04/02/2020 3:39 AM CDT [facility] Blood BLOOD SPECIMEN / Unknown Lab Venipuncture / Unknown 04/02/2020 3:06 AM CDT 04/02/2020 3:20 AM CDT Robinson Wilkins MD LAB - CHEMISTRY [facility] Organization Address City/State/ZIP Co de Phone Number [facility] [address] [place] [address] * (ABNORMAL) HEMOGLOBIN A1C (04/01/2020 12:04 PM CDT) Hemoglobin A1c 8.9(H) 4.2 - 5.6 % 04/01/2020 1:31 PM CDT [facility] Estimated Average Glucose 209 mg/dL 04/01/2020 1:31 PM CDT [facility] Blood BLOOD SPECIMEN / Unknown Venipuncture / Unknown 04/01/2020 12:04 PM CDT 04/01/2020 12:08 PM CDT Narrative [facility] - 04/01/2020 1:31 PM CDT The following cutoff levels are recommended by [employer]. A1c > 6.5% : considered [...] Wilkins MD LAB - CHEMISTRY [facility] Organization Address City/State/ZIP Co de Phone Number [facility] [address] [place] [address] from Last 3 Months or Most Recently Relevant to Health Maintenance Advance Directives * Full Code (Latest Code Status on File) Date Activated Date Inactivated Comments 04/01/2020 1:52 PM 04/02/2020 1:54 PM
--- OUTSIDE RECORDS SUMMARY | 2024-10-16 12:32 | XMS_ITS | Encounter Summary ---
Author Organization [facility] Address [address] [place] [address] Phone Care Team Providers Care Speech Language Specialist Name Role Phone Cristobal Aguilera MD Primary Care Provider Con Beltrán MD Unavailable [phone] Azra Yarbrough RN Unavailable [phone] Cristobal Aguilera MD Primary Care Provider Prashanth Saldana Primary Care Provider Sidney Russell MD Unavailable [phone] Reason for Visit * Reason Onset Date Comments left msg. for family to c/b and sched. 3mo appt. 03/12/2018 Encounter Details Date Type Department Care Team (Late st Contact Info) Description 03/12/2018 Telephone [facility] Pediatric Endocrinology [facility] 2nd [place] [address] [place] [address] Ngoc Lee left msg. for family to c/b and sched. 3mo appt. Social History Tobacco Use Types Packs/Day Years Used Date Smoking Tobacco: Never Alcohol Use Standard Drinks/Week Comments No 0 (1 standard drink = 0.6 oz pur e alcohol) Sex and Gender Information Value Date Recorded Sex Assigned at Not on file Legal Sex Male 4:12 AM FOREST MANAGEMENT PROFESSOR Gender Identity Not on file Sexual Orientation [...] COVID: Suspected 05/26/2020 05/26/2020 05/27/2020 10:23 AM FOREST MANAGEMENT PROFESSOR Respiratory Infection (ALLIE), contact + droplet Comment:IP Review - There is a significant event note with an alternative diagnosis and at least one negative COVID-19 test documented in Epic. Patient meets criteria for COVID-19 isolation discontinuation. ` Automatically added due to negative COVID-19 result. 05/27/2020 05/27/2020 05/27/2020 12:46 PM FOREST MANAGEMENT PROFESSOR COVID: Suspected 07/04/2020 07/04/2020 07/04/2020 6:02 PM FOREST MANAGEMENT PROFESSOR Respiratory Infection (ALLIE), contact + droplet Comment:Patient classified as Low Risk for COVID-19 and has one negative COVID-19 test. Patient meets criteria for COVID-19 isolation discontinuation 07/04/2020 [place] Automatically added due to negative COVID-19 result. 07/04/2020 07/04/2020 07/04/2020 8:[address] COVID: Suspected 08/03/2020 08/03/2020 08/03/2020 10:50 PM FOREST MANAGEMENT PROFESSOR Respiratory Infection (ALLIE), contact + droplet Comment:08/04/2020 [...] documented as of this encounter Care Teams Speech Language Specialist Relationship Specialty Start Date End Date Cristobal Aguilera MD PCP - General 10/19/16 11/15/19 Cristobal Aguilera MD PCP - General 11/16/19 05/24/20 Prashanth Saldana PA [address] [place] [address] PCP - General Family Practice 05/25/20 Con Beltrán MD Referring Physician Pediatric Endocrinology 12/20/18 Azra Yarbrough, RN [address] [address] [facility] Outpatient Automobile Tester 11/16/19 12/15/19 Sidney Russell MD [address] [place] [address] Consulting Physician Gastroenterology 04/19/21 documented as of this encounter
--- OUTSIDE RECORDS SUMMARY | 2024-10-16 12:32 | XMS_ITS | Referral Summary ---
Author Organization [facility] Address [address] [place] [address] Care Team Providers Care Furniture Mechanic Name Role Phone Con Beltrán MD Unavailable [phone] Prashanth Saldana Primary Care Provider [phone] Sidney Russell MD Unavailable [phone] Allergies Active Allergy Reactions Criticality Noted Date [...] . Assessment & Plan (07/10/2022 9:22 AM HOTEL LOBBY CONCIERGE): This is a chronic condition which is not at goal. Unable to Download as he has a new pump and is not connected on [employer]. Type of insulin pump- tandem T slim [...] of less than 70. Encouraged to contact [employer] and have a new pump shipped Discussed [...] statin Assessment & Plan (07/10/2022 9:19 AM HOTEL LOBBY CONCIERGE): This is a chronic condition which is [...] G6 at home. He was seen in [facility], but missed appointment in the adult diabetes [...] prescribed. Assessment & Plan (08/04/2020 3:50 AM HOTEL LOBBY CONCIERGE): H/o pancreatitis attributed to hypertriglyceridemia. TGs 215 on 05/27/20. -Continue home fenofibrate and atorvastatin Resolved Problems Problem Noted Date Diagnosed Date Resolved Date Leukocytosis 04/18/2021 04/04/2022 Gallbladder sludge 04/05/2021 Marijuana abuse 04/05/2021 04/04/2022 JACK (acute kidney injury) ([facility]) 10/25/2020 04/04/2022 Diarrhea 10/25/2020 04/04/2022 Hypokalemia 08/04/2020 04/04/2022 Assessment & Plan (08/04/2020 3:59 AM HOTEL LOBBY CONCIERGE): K to 3.2 after hyperglycemia protocol s/p 40 mEq of IV K in ED. -CTM w/ BMP Nausea and vomiting 07/05/2020 04/04/20 22 Assessment & Plan (08/04/2020 4:10 AM HOTEL LOBBY CONCIERGE): Patient has chronic N/V, now presenting w/ 3 days of persistent N/V. No abdominal pain. Lipase 15 on presentation. +MJ use. DDx: cyclic vomiting vs. diabetic gastroparesis. -Zofran prn -Pepcid -Can trial Reglan -Encourage MJ cessation Assessment & Plan (07/05/2020 4:24 PM HOTEL LOBBY CONCIERGE): Etiology likely DKA. Other considerations are PUD [...] 04/04/2022 Assessment & Plan (07/05/2020 4:26 PM HOTEL LOBBY CONCIERGE): Etiology likely DKA. pH is 7.50 (alkalosis) [...] 04/04/2022 Assessment & Plan (08/04/2020 3:41 AM HOTEL LOBBY CONCIERGE): Patient multiple past hospitalizations for DKA, most recently in June presenting w/ DKA after 3 days of persistent N/V. BG was 338 w/ AG 18, bicarb 21, ketones 3.2. BG now in the 100s and AG close after hyperglycemia protocol. A1C 10.5 08/02/20. Is a patient of Dr. Swift at [facility] medical group in [place]. Last seen on 07/25 with plan for [...] f/u. Assessment & Plan (07/05/2020 4:21 PM HOTEL LOBBY CONCIERGE): DKA (ketones 1.4, BG 242, urine glucose [...] insulin regimen is needed at this time. cutter head sharpener have talked to Peter and family about [...] with diabetes mellitus due to underlying condition ([facility]) 04/04/2022 EKG abnormality 04/04/2022 Choledocholithiasis 04/04/20 Abdominal [...] on file Legal Sex Male 4:12 AM HOTEL LOBBY CONCIERGE Gender Identity Not on file Sexual Orientation [...] CDT 02/12/2024 7:42 PM CDT Nay Alford BEAD CUTTER LAB BLOOD ORDERABLES Final Resu lt Performing Organization Address [facility] Co de Phone Number [facility] [address] [address] [facility] [place] [address] * Thyroid Function [place] (02/12/2024 1:50 PM CDT) TSH 1.78 0.30 - 4.20 mcIUnit/mL Blood 02/12/2024 1:50 PM CDT 02/12/2024 7:06 PM CDT Nay Alford NP LAB BLOOD ORDERABLES Final Resu lt Performing Organization Address [facility] Co de Phone Number [facility] [address] [address] Department [place] [address] * Albumin Creatinine Ratio, Urine (02/12/2024 1:50 [...] URINE ORDERABLES Final Resu lt ALYSSA AHMADI [address] [address] Department [place] [address] * (ABNORMAL) Lipid panel (02/12/2024 1:50 PM [...] BLOOD ORDERABLES Final Resu lt ALYSSA AHMADI [address] [address] Department [place] [address] * DIABETES FOOT EXAM (04/08/2018) Diabetic Foot Exam Normal us Historical Provider MD HEALTH MAINTENANCE Final Result from Last 3 Months or Most Recently Relevant to Health Maintenance Insurance [facility] Advance Directives For more information, please contact: [phone] Documents on File Type Date Recorded Patient Block Hand Expl anation ADVANCE DIRECTIVE 05/26/2020 6:51 PM [...] 10:38 PM 07/05/2020 11:35 PM Care Teams Furniture Mechanic Relationship Specialty Start Date End Date Prashanth Saldana PA [address] [place] [address] PCP - General Family Practice 05/25/20 Con Beltrán MD Referring Physician Pediatric Endocrinology 12/20/18 Sidney Russell MD [address] [place] [address] Consulting Physician Gastroenterology 04/19/21
--- OUTSIDE RECORDS SUMMARY | 2024-10-16 12:32 | XMS_ITS | Encounter Summary ---
Author Organization [facility] Address [address] [place] [address] Phone Care Team Providers Care Forester Aide Name Role Phone Prashanth Saldana Primary Care Provider Heidi Swift MD Unavailable Reason for Visit * Reason Comments Medication Refill Encounter Details Date Type Department Care Team (Late st Contact Info) Description 07/24/2021 Refill [facility] - Endocrinology - [place] [address] [place] [address] Heidi Swift MD [address] [id number] Medication Refill Social History Tobacco [...] COVID-19? No / Unsure 07/07/2021 3:14 PM CHUCKING LATHE OPERATOR documented as of this encounter Miscellaneous Notes * Telephone Encounter - Eli Jones RN - 07/25/2021 8:10 AM CHUCKING LATHE OPERATOR Requested Prescriptions Pending Prescriptions Disp Refills ??? Continuous Blood Gluc Sensor (Dexcom G6 Sensor) Misc [Pharmacy Med Name: DEXCOM G6 SENSOR] Sig: CHANGE SENSOR EVERY 10 DAYS. Next appt: 08/01/2021 KING LATHE OPERATOR documented in this encounter Plan of Treatment [...] Respiratory Rule-Out 05/17/2022 05/17/2022 022 12:16 AM CHUCKING LATHE OPERATOR COVID - 19 06/27/2022 06/27/2022 07/07/2022 12:1 6 AM CHUCKING LATHE OPERATOR Influenza 06/27/2022 06/27/2022 07/04/2022 12:1 6 AM CHUCKING LATHE OPERATOR COVID - 19 04/05/2024 04/05/2024 04/05/2024 10:2 0 PM CDT COVID - 19 10/16/2024 10/16/2024 10/16/2024 7:05 AM CDT documented as of this encounter Care Teams Forester Aide Relationship Specialty Start Date End Date Prashanth Saldana PAC [address] [place] [id number] PCP - General Physician Rubber Attacher 04/03/19 Heidi Swift MD [address] [phone] Consulting Physician Endocrinology 08/09/20 09/23/24 documented as of this encounter
--- OUTSIDE RECORDS SUMMARY | 2024-10-16 12:33 | XMS_ITS | Encounter Summary ---
Author Organization [facility] Address [address] [place] [address] Phone Care Team Providers Care Ammonia Box Tender Name Role Phone Ammy Saldana Primary Care Provider [phone] Reason for Visit * Reason Comments Nausea Encounter Details Date Type Department Care Team (Latest Contact Info) Description 10/16/2024 2:21 AM CDT - 10/16/2024 8:15 AM CDT Hospital Encounter [facility] Medical/Surgical Intensive Care [address] [place] [address] Mayur Mcdonough MD [address] [place] [id number] Jayna Saavedra MD [address] [place] [address] Tish White MD [address] [place] [address] Diabetic ketoacidosis without coma associated with type 1 diabetes mellitus (HCC) Discharge Disposition: Left Against Medical Advice Social History Tobacco Use Types Packs/Day Years Used Date Smoking Tobacco: Never Smokeless Tobacco: Never Alcohol Use Standard Drinks/Week Comments No 0 (1 standard drink = 0.6 oz pur e alcohol) [facility] Utilities Answer Date Recorded In the past 12 months has [employer] electric, gas, oil, or water company threatened [...] often do you attend chur ch or roman catholic services? Never 10/16/2024 Do you belong to any clubs o r organizations such as uatsdin groups, unions, fraternal or athletic groups, or [...] medical care, and heating? Somewhat hard 10/16/2024 [facility] - Occupational Stress [...] place to sleep or slept in a correction (including now)? No 12/07/2023 Housing Stability Vital Sign Answer Eloy e Recorded In the last 12 months, was t here a time when you were not able to pay the mortgage or rent on time? No 10/16/2024 In the past 12 months, how m any times have you moved where you were living? 1 10/16/2024 At any time in the past 12 m [facility], were you homeless or living in a correction (including now)? No 10/16/2024 Sexually Active Control Partners Comments Yes Female Sex and Gender Information Value Date Recorded Sex Assigned at Not on file Legal Sex Male 8:12 PM CDT Gender Identity Not on file Sexual Orientation Not on file documented as of this encounter Last Filed Vital Signs Vital Sign Reading [...] Mass Index 26.95 10/16/2024 2:27 AM CDT documented in this encounter Functional Status * Audit-C Score Answer Date of Assessment Author 0 10/16/2024 6:46 AM CDT Ron Martinez RN * Question Answer Date of Assessment Author Q1: How often do you have a drink containing alcohol? Never 10/16/2024 6:46 AM GUILLET Jordan Martinez RN Q2: How many drinks containing alcohol do you have on a typical day when you are drinking? Patient does not drink 10/16/2024 6:46 AM GUILLET Jordan Martinez RN Q3: How often do you have six or more drinks on one occasion? Never 10/16/2024 6:46 AM CDT Jordan Martinez RN documented as of this encounter Medications at Time of Discharge Blood Glucose Monitoring Suppl Device Test four times daily 1 Each 11/30/2019 busPIRone (BUSPAR) 10 MG Tablet Take 10 mg by mouth 2 times daily. Continuous Blood Gluc Paymaster Of Purses (Dexcom G6 Paymaster Of Purses) Device USE TO CHECK GLUCOSE 4X DAILY. 1 Each 01/19/2022 Continuous Blood Gluc Sensor (Dexcom G6 Sensor) MiscIndications:Ty pe 1 diabetes mellitus without complication (HCC) CHANGE SENSOR EVERY 10 DAYS 3 Each 1 02/19/2022 Continuous Blood Gluc Transmit (Dexcom G6 Transmitter) MiscIndications:Ty pe 1 diabetes mellitus without complication (HCC) 1 EACH BY DOES NOT APPLY ROUTE EVERY 90 DAYS. CHANGE SENSOR EVERY 90 DAYS. 1 Each 3 09/19/2021 Continuous Glucose Sensor (Dexcom G7 Sensor) Misc 1 Device by Other route continuous. 02/12/2024 gabapentin (NEURONTIN) 300 MG Capsule Take 100 mg by mouth 3 times daily as needed for Other (neuropathy). 09/23/2020 Glucose Blood (OneTouch Ultra) Strip TEST FOUR TIMES DAILY 300 Strip 5 11/07/2021 insulin lispro (HumaLOG) 100 UNIT/ML Solution INJECT UP TO 100 UNITS DAILY PER INSULIN PUMP SETTINGS. 30 mL 04/17/2022 Insulin Pen Needle (TechLite Pen Loving) 31G X 8 MM Mis USE TO INJECT INSULIN 4 TIMES A DAY 400 Pen Needle 3 12/06/2020 Insulin Syringe-Needle U-100 (INSULIN SYRINGE .5CC/31GX5/16 ) 31G X 5/16 0.5 ML Misc Three times a day 300 Each 3 07/01/2019 Lancets Misc Test four times daily 400 Lancet 3 11/30/2019 metoclopramide (REGLAN) 10 MG Tablet Take 1 Tablet by mouth 4 times daily as needed for Nausea - 2nd line. 10 Tablet 07/07/2021 ondansetron (Zofran ODT) 4 MG TABLET DISPERSIBLE Take 1 Tablet by mouth every 8 hours as needed for Nausea - 1st line. 10 Tablet 12/08/2021 pantoprazole (PROTONIX) 40 MG Tablet Delayed Response Take 1 Tablet by mouth daily. 30 Tablet 04/06/2024 prochlorperazine (COMPAZINE) 25 MG Suppository 25 mg by Rectal route every 12 hours as needed for Nausea - 1st line. documented as of this encounter H&P Notes * Sharita Kahn APRN, MANAGER OF MARKETING - 10/16/2024 3:53 AM CDT [facility] ADMISSION HISTORY & PHYSICAL HPI: Peter Shore is a 24 y.o. male with PMHx of anxiety, type 1 diabetes diagnosis at age 11, DKA, hyperlipidemia, gastroparesis, hypertension, pancreatitis, who presented to [facility] with complaints of nausea/ vomiting and abdominal pain. Patient and Grandmother at bedside providing HPI. Grandmother reports this yesterday morning pt's Dexcom was read inaccurately low, device changed and BS was noted to be in the 200's. However, pt hadalready started experiencing intractable vomiting. Pt states he vomited about 15 times and did havesome hematemesis x1. Pt also reports polydipsia, but unable to keep fluids down and diarrhea. Pt denies chest pain, SOB, dizziness polyphagia. In the ED labs for unremarkable except CO2 15, anion gap 23.2, glucose 256, A1c 7.9, PH 7.46, pCO2 23, PO2 133, bicarb of 16.7, WBCs 15.02 Allergies: is allergic to haldol [haloperidol]. Home Medications: Prior to Admission Medications Prescriptions Last Dose Informant Patient Reported? Taking? Blood Glucose Monitoring Suppl Device No No Sig: Test four times daily Continuous Blood Gluc Paymaster Of Purses (Dexcom G6 Paymaster Of Purses) Device No No Sig: USE TO CHECK GLUCOSE 4X DAILY. Continuous Blood Gluc Sensor (Dexcom G6 Sensor) [facility] No No Sig: CHANGE SENSOR EVERY 10 DAYS Continuous Blood Gluc Transmit (Dexcom G6 Transmitter) Mis No No Si EACH BY DOES NOT APPLY ROUTE EVERY 90 DAYS. CHANGE SENSOR EVERY 90 DAYS. Continuous Glucose Sensor (Dexcom G7 Sensor) [facility] Yes No Si Device by Other route continuous. Glucose Blood (OneTouch Ultra) Strip No No Sig: TEST FOUR TIMES DAILY Insulin Pen Needle (TechLite Pen Loving) 31G X 8 MM Misc No No Sig: USE TO INJECT INSULIN 4 TIMES A DAY Insulin Syringe-Needle U-100 (INSULIN SYRINGE .5CC/31GX5/16 ) 31G X 5/16 0.5 ML Misc No No Sig: Three times a day Lancets Misc No No Sig: Test four times daily busPIRone (BUSPAR) 10 MG Tablet Yes No Sig: Take 10 mg by mouth 2 times daily. fenofibrate (TRICOR) 145 MG Tablet Yes No Sig: Take 145 mg by mouth daily. gabapentin (NEURONTIN) 300 MG Capsule Yes No insulin lispro (HumaLOG) 100 UNIT/ML Solution No No Sig: INJECT UP TO 100 UNITS DAILY PER INSULIN PUMP SETTINGS. methylPREDNISolone (MEDROL DOSPACK) 4 MG Tablet Therapy Pack No No Sig: See product package insert for dosing schedule metoclopramide (REGLAN) 10 MG Tablet No No Sig: Take 1 Tablet by mouth 4 times daily as needed for Nausea - 2nd line. ondansetron (Zofran ODT) 4 MG TABLET DISPERSIBLE No No Sig: Take 1 Tablet by mouth every 8 hours as needed for Nausea - 1st line. pantoprazole (PROTONIX) 40 MG Tablet Delayed Response No No Sig: Take 1 Tablet by mouth daily. rosuvastatin (CRESTOR) 20 MG Tablet Yes No Sig: Take 20 mg by mouth nightly. Facility-Administered Medications: None Past Medical History: He has a past medical history of Anxiety, Diabetes mellitus (HCC), DKA (diabetic ketoacidosis) (HCC), Dyslipidemia, Gastroparesis, Hypertension, and Pancreatitis. Surgical History: has a past surgical history that includes no previous surgery. Social History: reports that he has never smoked. He has never used smokeless tobacco. He reports that he does not currently use drugs after having used the following drugs: Marijuana. He reports that he does not drink alcohol. Family History: family history includes No Known Problems in his brother, father, mother, sister, sister, sister, sister, sister, sister, and sister. Review of Systems: C/o nausea, vomiting, diarrhea, hematemesis, Denies lightheaded, dizziness blurred vision. Denies Fever, chills, SOB, cough, sore throat. Denies Chest pain, heart palpitations. Denies abdominal pain,denies constipation, Denies nausea, vomiting, diarrhea, or constipation. Denies LE swelling. Physical Exam: VITALS:Temp Av.3 ??F (37.4 ??C) Min: 99.3 ??F (37.4 ??C) Max: 99.3 ??F (37.4 ??C) BP Min: 203/111 Max: 203/111 Pulse Av.7 Min: 98 Max: 116 Heart Rate (Monitor) Av Min: 103 Max: 105 Resp Av Min: 12 Max: 30 SpO2 Av.3 % Min: 96 % Max: 100 % No intake/output data recorded. Weight: Wt Readings from Last 1 Encounters: 10/16/24 167 lb (75.8 kg) General: Irritable well developed well nourished, alert, oriented and in no acute distress Skin: normal coloration and turgor, no rashes HEENT: normocephalic, atraumatic. Pupils equal, round and reactive to light. Extraocular movements intact. Oronasopharynx pink and moist, no lesion or exudate. Neck: Supple. No JVD, lymphadenopathy thyromegaly or carotid bruits auscultated CVS: RRR, S1/S2 normal, no murmurs, gallops or rubs Chest: clear to auscultation, no wheezes, rales or rhonchi, symmetric air entry and normal respiratory effort Abdominal: soft, nontender, nondistended. Positive Bowel sounds, no organomegaly appreciated Extremities: no edema, no clubbing or cyanosis Neuro: Alert and orient x 3. Moves all extremities well. No neurological deficits noted on exam. Gait not tested Data Review: No results found. Lab Results Component Value Date WBC 15.02 (H) 10/16/2024 HEMOGLOBIN 14.3 10/16/2024 PLATELETCNT 315 10/16/2024 MCV 87.6 10/16/2024 Lab Results Component Value Date SODIUM 141 10/16/2024 POTASSIUM 4.2 10/16/2024 CHLORIDE 107 10/16/2024 CO2VEN 15 (L) 10/16/2024 ANIONGAP 23.2 (H) 10/16/2024 GLUCOSE 256 (H) 10/16/2024 BUN 23 (H) 10/16/2024 CREATININE 1.21 10/16/2024 BCRATIO8 19 10/16/2024 TOTALPROTEIN 7.9 10/16/2024 ALBUMIN 4.7 10/16/2024 CALCIUM 9.2 10/16/2024 TBIL 0.7 10/16/2024 SGOTAST 28 10/16/2024 SGPTALT 17 10/16/2024 ALKALINEPHO 78 10/16/2024 GFRNA >60 10/16/2024 GFRA >60 10/16/2024 Lab Results Component Value Date PHARTERIAL 7.31 (L) 03/31/2020 PO2ART 130 (H) 03/31/2020 WHR2NJI 17 (L) 03/31/2020 O2ART 98 03/31/2020 Lab Results Component Value Date TROPONINI <0.300 09/16/2019 Lab Results Component Value Date AMYL 39 08/02/2020 Lab Results Component Value Date LIPASE 8 10/16/2024 Lab Results Component Value Date CHOLESTEROL 141 06/24/2019 TRIGLYCRIDES 158 (H) 06/24/2019 HDLCHOLESTE 30.4 (L) 06/24/2019 LDL 79 06/24/2019 Assessment/Plan There are no hospital problems to display for this patient. Plan: DKA Diabetes Type I A1C 10.4 in 03/2024 Updated A1C ordered Urine if positive for glucose and ketones NPO Hold home medications Insulin gtt and DKA protocol ordered Hourly FSBS and serial BMP High Anion Gap Acute Metabolic Acidosis Likely 2/2 DKA Co2 15 Anion gap 23.2 IV hydration and insulin gtt Bmp in am Leukocytosis Possibly reactive vs infectious process WBC 15.02 CXR ordered UA ordered RSV/Influenza/COVID-19 PCR ordered Cbc in am Intractable Cyclical vomiting Hx Gastroparesis Hematemesis Ddx Gastroparesis vs cannabis hyperemesis Reglan and benadryl given in the ED, no vomiting at this time UDS and gastric occult blood ordered PRN antiemetics Supportive care Hypertension urgency SBP 200's in upon arrival to ED. SBP stable 110-120's now Resume home medications Hyperlipidemia Resume home statin Anxiety Resume home medications Marijuana Dependency Reports smoking every other day Encourage cessation Advance Care Planning: Aggregate face to face time discussing end of life advance care planning with patient and/or family and/or Power of Educational Diagnostician approximately 16 minutes. Discussed CPR/Intubation/Treatment Goals/Quality of life/Intensity of Care. Patient desires: Full Code VTE Prophylaxis: scd's due to hematemesis Thank you very much for allowing the [facility] Adult Hospitalist Service to participate in the care of this patient By: Sharita Kahn APRN, CNP, 10/16/2024, 3:53 AM CDT Primary Care Physician: AMMY SALDANA, PAC documented in this encounter ED Notes * Africa Rodrigues RN - 10/16/2024 6:07 AM CDT Pt transferred to room ICU 9 by SPECIALTY TRIMMER via stretcher. No additional needs expressed at this time. Belongings sent with pt at time of transfer. Pt remains A&Ox4 with VSS. Unit charge nurse notifiedof incoming pt. Insulin and D5 continues during transport. * Aida Alicea RN - 10/16/2024 4:57 AM CDT Pt medicated per provider orders. Pt educated on intended effects and side effects of medication and verbalized understanding, able to provide teach back of education. * Aida Alicea RN - 10/16/2024 4:49 AM CDT Pt medicated per provider orders. Pt educated on intended effects and side effects of medication and verbalized understanding, able to provide teach back of education. BG level and Insulin drip verified by rn hemodialysis chargeDENTON Walls * Aida Alicea RN - 10/16/2024 4:10 AM CDT Pt medicated per provider orders. Pt educated on intended effects and side effects of medication and verbalized understanding, able to provide teach back of education. * Ayesha Dyer RN - 10/16/2024 2:48 AM CDT Pt medicated per provider orders. Pt educated on intended effects and side effects of medication and verbalized understanding, able to provide teach back of education. * Mayur Mcdonough MD - 10/16/2024 2:34 AM CDTAssociated Order(s): Critical Care Chief Complaint Patient presents with Nausea Patient is a 24-year-old male with a history of insulin-dependent diabetes, gastroparesis, pancreatitis, and hypertension complaining of nausea and vomiting accompanied by epigastric discomfort that started today. Current Facility-Administered Medications Medication Dose Route Frequency Provider Last Rate Last Admin Insulin Regular(Human) in NaCl 100-0.9 UT/100ML-% infusion 7.5 Units/hr Intravenous Continuous Mayur Mcdonough MD sodium chloride 0.9 % 1,000 mL IV bolus Intravenous Once Mayur Mcdonough MD 2,000 mL/hr at 10/16/24 0408 New Bag at 10/16/24 0408 Current Outpatient Medications Medication Sig Dispense Refill Blood Glucose Monitoring Suppl Device Test four times daily 1 Each 0 busPIRone (BUSPAR) 10 MG Tablet Take 10 mg by mouth 2 times daily. Continuous Blood Gluc Paymaster Of Purses (Dexcom G6 Paymaster Of Purses) Device USE TO CHECK GLUCOSE 4X DAILY. 1 Each 0 Continuous Blood Gluc Sensor (Dexcom G6 Sensor) Misc CHANGE SENSOR EVERY 10 DAYS 3 Each 1 Continuous Blood Gluc Transmit (Dexcom G6 Transmitter) Misc 1 EACH BY DOES NOT APPLY ROUTE EVERY 90DAYS. CHANGE SENSOR EVERY 90 DAYS. 1 Each 3 Continuous Glucose Sensor (Dexcom G7 Sensor) Misc 1 Device by Other route continuous. fenofibrate (TRICOR) 145 MG Tablet Take 145 mg by mouth daily. 2 gabapentin (NEURONTIN) 300 MG Capsule Glucose Blood (OneTouch Ultra) Strip TEST FOUR TIMES DAILY 300 Strip 5 insulin lispro (HumaLOG) 100 UNIT/ML Solution INJECT UP TO 100 UNITS DAILY PER INSULIN PUMP SETTINGS. 30 mL 0 Insulin Pen Needle (iFoodte Pen Loving) 31G X 8 MM Misc USE TO INJECT INSULIN 4 TIMES A DAY 400 Pen Needle 3 Insulin Syringe-Needle U-100 (INSULIN SYRINGE .5CC/31GX5/16 ) 31G X 5/16 0.5 ML Misc Three times aday 300 Each 3 Lancets Misc Test four times daily 400 Lancet 3 methylPREDNISolone (MEDROL DOSPACK) 4 MG Tablet Therapy Pack See product package insert for dosing schedule 21 Tablet 0 metoclopramide (REGLAN) 10 MG Tablet Take 1 Tablet by mouth 4 times daily as needed for Nausea - 2nd line. 10 Tablet 0 ondansetron (Zofran ODT) 4 MG TABLET DISPERSIBLE Take 1 Tablet by mouth every 8 hours as needed forNausea - 1st line. 10 Tablet 0 pantoprazole (PROTONIX) 40 MG Tablet Delayed Response Take 1 Tablet by mouth daily. 30 Tablet 0 rosuvastatin (CRESTOR) 20 MG Tablet Take 20 mg by mouth nightly. Facility-Administered Medications Ordered in Other Encounters Medication Dose Route Frequency Provider Last Rate Last Admin KETOROLAC TROMETHAMINE 30 MG/ML IJ SOLN Allergies Allergen Reactions Haldol [Haloperidol] Shortness of Breath and Anxiety Past Medical History Positives Diagnosis Date Anxiety Diabetes mellitus (HCC) DKA (diabetic ketoacidosis) (HCC) Dyslipidemia Gastroparesis Hypertension Pancreatitis Past Surgical History: Procedure Laterality Date NO PREVIOUS SURGERY Social History Socioeconomic History Marital status: Single Spouse name: Not on file Number of children: Not on file Years of education: Not on file Highest education level: Not on file Occupational History Not on file Tobacco Use Smoking status: Never Smokeless tobacco: Never Vaping Use Vaping status: Some Days Substances: Nicotine Substance and Sexual Activity Alcohol use: No Drug use: Not Currently Types: Marijuana Comment: every other day Sexual activity: Yes Partners: Female Other Topics Concern Not on file Social History Narrative Not on file Social Drivers of Health Financial Resource Needs: Medium Risk (12/07/2023) Overall Financial Resource Strain (CARDIA) Difficulty of Paying Living Expenses: Somewhat hard Food Insecurity Needs: No Food Insecurity (04/05/2024) Hunger Vital Sign Worried About Running Out of Food in the Last Year: Never true Ran Out of Food in the Last Year: Never true Transportation Needs: No Transportation Needs (04/05/2024) PRAPARE - Transportation Lack of Transportation (Medical): No Lack of Transportation (Non-Medical): No Physical Activity: Sufficiently Active (12/07/2023) Exercise Vital Sign Days of Exercise per Week: 5 days Minutes of Exercise per Session: 60 min Stress: Stress Concern Present (12/07/2023) [facility] [place] [facility] - Occupational Stress Questionnaire Feeling of Stress : To some extent Social Integration: Socially Isolated (12/07/2023) Social Connection and Isolation Panel [NHANES] Frequency of Communication with Friends and Family: More than three times a week Frequency of Social Gatherings with Friends and Family: More than three times a week Attends Roman Catholic Services: Never Active Member of Clubs or Organizations: No Attends Club or Organization Meetings: Never Marital Status: Never Personal Safety: Low Risk (10/16/2024) Personal Safety Feels Unsafe at Home or Work/School: no Feels Threatened by Someone: no Does Anyone Try to Keep You From Having Contact with Others or Doing Things Outside Your Home?: no Physical Signs of Abuse Present: no Housing Stability: Low Risk (04/05/2024) Housing Stability Vital Sign Unable to Pay for Housing in the Last Year: No Number of Times Moved in the Last Year: 1 Homeless in the Last Year: No BP (!) 203/111 Pulse 105 Temp 99.3 ??F (37.4 ??C) (Tympanic) Resp 21 Ht 5' 6 (1.676 m) Wt 167 lb (75.8 kg) SpO2 99% BMI 26.95 kg/m?? Review of Systems All other systems reviewed and are negative. Physical Exam Vitals and nursing note reviewed. Constitutional: General: He is in acute distress. Appearance: He is well-developed. He is not ill-appearing, toxic-appearing or diaphoretic. Comments: Patient actively dry heaving, severe nausea HENT: Head: Normocephalic and atraumatic. Right Ear: External ear normal. Left Ear: External ear normal. Mouth/Throat: Mouth: Mucous membranes are moist. Pharynx: Oropharynx is clear. Eyes: General: No scleral icterus. Extraocular Movements: Extraocular movements intact. Conjunctiva/sclera: Conjunctivae normal. Pupils: Pupils are equal, round, and reactive to light. Neck: Trachea: No tracheal deviation. Cardiovascular: Rate and Rhythm: Normal rate and regular rhythm. Heart sounds: Normal heart sounds. No murmur heard. No friction rub. No gallop. Pulmonary: Effort: Pulmonary effort is normal. No respiratory distress. Breath sounds: Normal breath sounds. No stridor. No wheezing, rhonchi or rales. Abdominal: General: Abdomen is flat. Bowel sounds are normal. There is no distension. Palpations: Abdomen is soft. Tenderness: There is no abdominal tenderness. There is no guarding or rebound. Musculoskeletal: General: Normal range of motion. Cervical back: Normal range of motion. Skin: General: Skin is warm and dry. Capillary Refill: Capillary refill takes less than 2 seconds. Coloration: Skin is not cyanotic, jaundiced, mottled or pale. Findings: No erythema or rash. Neurological: General: No focal deficit present. Mental Status: He is alert and oriented to person, place, and time. Cranial Nerves: No cranial nerve deficit. Coordination: Coordination normal. Psychiatric: Mood and Affect: Mood normal. Behavior: Behavior normal. Critical Care Performed by: Mayur Mcdonough MD [...] specialty: no Care discussed with: admitting provider Recent Results (from the past 24 hours) POCT Glucose Collection Time: 10/16/24 2:26 AM Result Value Ref Range GLUCOSE,BEDSIDE POCT 246 (H) 70 - 99 mg/dL CMP Collection Time: 10/16/24 2:39 AM Result Value Ref Range SODIUM 141 136 - 145 mmol/L POTASSIUM 4.2 3.5 - 5.1 mmol/L CHLORIDE 107 98 - 107 mmol/L CO2, VENOUS 15 (L) 22 - 30 mmol/L ANION GAP 23.2 (H) <18.0 mmol/L GLUCOSE 256 (H) 70 - 99 mg/dL BUN 23 (H) 9 - 21 mg/dL CREATININE, BLOOD 1.21 0.70 - 1.30 mg/dL BUN/CREATININE RATIO 19 12 - 20 ratio TOTAL PROTEIN 7.9 6.0 - 8.0 g/dL ALBUMIN 4.7 3.5 - 5.0 g/dL A/G RATIO 1.5 1.0 - 2.2 CALCIUM 9.2 8.7 - 10.5 mg/dL T BILI 0.7 0.2 - 1.2 mg/dL SGOT (AST) 28 <43 U/L SGPT (ALT) 17 <56 U/L ALKALINE PHOSPHATASE 78 40 - 150 U/L GFR, ESTIMATED >60 >=60 GFR, EST. >60 >=60 GFR, EST. NONAFRICAN >60 >=60 ETOH Level Collection Time: 10/16/24 2:39 AM Result Value Ref Range ETHANOL <10 <10 mg/dL Lipase Collection Time: 10/16/24 2:39 AM Result Value Ref Range LIPASE 8 8 - 78 U/L Blood Gas, Venous Collection Time: 10/16/24 2:39 AM Result Value Ref Range PH VENOUS 7.46 (H) 7.34 - 7.43 PCO2 (VENOUS) 23 (L) 41 - 51 mmHg PO2 VENOUS 133 (H) 30 - 50 mmHg O2 SAT JOHNNIE, MEASURED 99 (H) 60 - 85 % BICARBONATE 16.7 (L) 22.0 - 26.0 mmol/L BASE VENOUS -4.6 (L) -2.0 - 3.0 mmol/L CARBOXYHEMOGLOBIN 0.5 0.0 - 5.0 % METHEMOGLOBIN 0.7 0.0 - 1.5 % CBC with Auto Differential Collection Time: 10/16/24 2:39 AM Result Value Ref Range WBC 15.02 (H) 4.00 - 12.00 10(3)/mcL RBC 4.90 4.40 - 5.80 10(6)/mcL HEMOGLOBIN (HGB) 14.3 13.0 - 16.5 g/dL HEMATOCRIT (HCT) 42.9 38.0 - 50.0 % MCV 87.6 82.0 - 96.0 fL MCH 29.2 26.0 - 32.0 pg MCHC 33.3 31.0 - 36.0 g/dL PLATELET COUNT 315 140 - 440 10(3)/mcL RDW 13.5 11.8 - 15.5 % MPV 10.6 8.0 - 12.6 fL NEUTROPHILS 87.6 (H) 40.0 - 68.0 % LYMPHOCYTES 9.3 (L) 19.0 - 49.0 % MONOCYTES 2.7 (L) 3.0 - 13.0 % EOSINOPHILS 0.0 0.0 - 8.0 % BASOPHILS 0.4 0.0 - 1.0 % ABSOLUTE NEUTROPHILS 13.16 (H) 1.40 - 5.30 10(3)/mcL ABSOLUTE LYMPHOCYTES 1.39 0.90 - 3.30 10(3)/mcL ABSOLUTE MONOCYTES 0.41 0.10 - 0.90 10(3)/mcL ABSOLUTE EOSINOPHIL 0.00 0.00 - 0.50 10(3)/mcL ABSOLUTE BASOPHILS 0.06 0.00 - 0.10 10(3)/mcL NRBC PER 100 WBC 0 Imaging Results XR CHEST SINGLE VIEW PORTABLE (In process) Medical Decision Making Differential diagnosis: Cannabinoid hyperemesis syndrome, DKA, hyperosmolar hyperglycemic syndrome,hyperglycemia, electrolyte abnormality, pancreatitis, gastritis Patient's blood glucose level is 256, it does have an anion gap although his pH is normal, is in DKA. Patient was treated with IV fluids x2 L, Benadryl, Reglan and Zofran IV for his nausea vomiting. Patient's nausea vomiting is due to cannabinoid hyperemesis syndrome. Patient has a history of leukocytosis based on his previous visits and his WBCs always elevated. Patient is not septic it is due to stress leukocytosis from vomiting, he is afebrile. On re-examination , his nausea and vomiting has resolved, patient is sleeping comfortably, his blood pressure is down to 110/64 and heart rate in the 80s. Patient placed on insulin drip per DKA protocol. Patient will be admitted to ICU. Discussed with Dr. Car, jewelry salesperson, agreed with current plan and treatment and accepted the admission to ICU Discussed with the hospitalist and accepted the admit. Amount and/or Complexity of Data Reviewed Labs: ordered. Decision-making details documented in ED Course. Clinical Impression 1. Diabetic ketoacidosis without coma associated with other specified diabetes mellitus (HCC) 2. Cyclic vomiting syndrome Disposition: Admit * Africa Rodrigues RN - 10/16/2024 2:28 AM CDT Pt to ER 3 via wheelchair with c/o nausea and dry heaving starting this morning. Pt is a type 1 diabetic. BS 246 on arrival. No active vomiting at this time. Pt reporting stomach pain. documented in this encounter Miscellaneous Notes * Interdisciplinary - Jessika Simms RN - 10/16/2024 7:25 AM CDT Verbal orders given from Sharita ORELLANA to turn off insulin drip. * Interdisciplinary - Jessika Simms RN - 10/16/2024 7:18 AM CDT Pt grandmother giving pt drinks of water. Pt yelling out swear words when nurse trying is to give care; listening to lungs, taking blood pressure, and checking blood sugar. Pt stating in a threatening manner that he is going to leave because pt wants to eat and drink. Nurse stated that interventions won't be forced on pt if pt doesn't want them. October, RN will be resuming care for this pt. [place] aware. * Jordan Arias RN - 10/16/2024 6:45 AM CDT Patient and grandma education on need to stay NPO while on insulin gtt. Patient said he did not care and demanded a drink from his grandmother's cup, she allowed him to drink. Patient educated again and swabs used. * Janeth - Abner Brandt RN - 10/16/2024 6:37 AM CDT New Admission noted. Onsite team aware and Will continue to monitor ABNER BRANDT RN, 10/16/2024, 6:37 AM CDT OnCall (vICU) Intensive Care RN * Jordan Arias RN - 10/16/2024 6:15 AM CDT Initial Skin Assessment Second nurse check Calvin RN Wounds noted: none PRESSURE INJURY AND MOISTURE MANAGEMENT RECOMMENDATIONS: Moisture Management: Patient is Continent and has no moisture problems at this time Pressure Injury Prevention Interventions: Patient is independent in Room and/or Bed Specialty Surface Selection: Moisture Score: 4-->rarely moist Mobility Score: 4-->no limitation Total Ashu Score: 23 Patient is in an ICU bed Wound care: N/A JORDAN MARTINEZ RN * Jordan Arias RN - 10/16/2024 6:00 AM CDT Patient admitted to ICU 9. Patient ambulated from stretcher to bed without assistance. No complaints of pain. Patient alert and oriented times 4, upset that he is NPO. Swabs offered. Vitals stable. IVF and insulin gtt infusing per emar. Blood sugar monitored. BMP obtained. Patient unable to give urine specimen at this time. documented in this encounter Plan of Treatment Scheduled Orders Name Type Priority Associated Diagnoses Orde r Schedule EKG 12 LEAD ECG STAT One Time for 1 Occurrences starting 10/16/2024 until 10/16/2024 Pulse Oximetry, Spot PFT Routine WITH VITALS until discontinued starting 10/16/2024 documented as of this encounter Procedures Procedure Name Priority Date/Time Associated Diagnosis Comments POCT GLUCOSE Routine 10/16/2024 8:03 AM CDT POCT GLUCOSE Routine 10/16/2024 7:13 AM CDT MRSA NASAL PCR Routine 10/16/2024 6:20 AM CDT RSV,SARS-COV-2,INFLUE NZA A&B BY PCR STAT 10/16/2024 6:20 AM CDT MRSA NASAL BY PCR Routine 10/16/2024 6:2 0 AM CDT BASIC METABOLIC PANEL W/ CALCIUM TOTAL Timed 10/16/2024 6:20 AM CDT POCT GLUCOSE Routine 10/16/2024 6:09 AM CDT POCT GLUCOSE STAT 10/16/2024 5:45 AM CDT XR CHEST SINGLE VIEW PORTABLE STAT 10/16/2024 4:52 AM CDT POCT GLUCOSE STAT 10/16/2024 4:39 AM CDT HEMOGLOBIN A1C W/ ESTIMATED GLUCOSE STAT 10/16/2024 2:39 AM CDT CBC WITH AUTO DIFFERENTIAL STAT 10/16/2024 2:39 AM CDT BLOOD GASES, [...] POCT GLUCOSE STAT 10/16/2024 2:26 AM CDT documented in this encounter Results * POCT Glucose (10/16/2024 8:03 AM CDT) Only the most recent of6 resultswithin the time period is included. [facility] GLUCOSE,BEDSIDE POCT 94 70 - 99 mg/dL 10/16/2024 8:08 AM CDT [facility] Blood 10/16/2024 8:03 AM CDT 10/16/2024 8:08 AM CDT us None Provider POINT OF CARE TESTING Final Resu lt [facility] [address] [place] [address] * MRSA NASAL PCR (10/16/2024 6:20 AM CDT) [facility] MRSA PCR RESULT Negative Negative, Invalid 10/16/2024 7:39 AM CDT [facility] Other NASOPHARYNGEAL SWAB / Unknown Non-Phlebotomy Collection / Unknown 10/16/2024 6:20 AM CDT 10/16/2024 6:25 AM CDT us Sharita Kahn ORNAMENTAL METALWORK DESIGNER, MANAGER OF MARKETING MICROBIOLOGY - GENERAL OR DERABLES Final Result [facility] [address] [facility] [place] [address] * (ABNORMAL) BMP with Ca, Total - every 4 hours x 48 Hours (10/16/2024 6:20 AM CDT) SODIUM 143 136 - 145 mmol/L 10/16/2024 6:47 AM CDT [facility] POTASSIUM 4.1 3.5 - 5.1 mmol/L 10/16/2024 6:47 AM CDT [facility] CHLORIDE 113(H) 98 - 107 mmol/L 10/16/2024 6:47 AM CDT [facility] CO2, VENOUS 22 22 - 30 mmol/L 10/16/2024 6:47 AM CDT [facility] ANION GAP 12.1 <18.0 mmol/L 10/16/2024 6:47 AM CDT [facility] GLUCOSE 107(H) 70 - 99 mg/dL 10/16/2024 6:47 AM CDT [facility] BUN 24(H) 9 - 21 mg/dL 10/16/2024 6:47 AM CDT [facility] CREATININE, BLOOD 1.15 0.70 - 1.30 mg/dL 10/16/2024 6:47 AM CDT [facility] BUN/CREATININE RATIO 21(H) 12 - 20 ratio 10/16/2024 6:47 AM CDT [facility] CALCIUM 9.0 8.7 - 10.5 mg/dL 10/16/2024 6:47 AM CDT [facility] GFR, ESTIMATED >60 >=60 10/16/2024 6:47 AM CDT [facility] Comment: Creatinine Clearance is the preferred criteria for selecting drug dose adjustments in renally impaired patients. The GFR is provided as additional pertinent clinical information. GFR is reported in mL/min/1.73 sq m. Calculation based on the Chronic Kidney Disease Epidemiology Collaboration (CKD- EPI) equation refit without adjustment for race. GFR, EST. >60 >=60 025 6:47 AM CDT [facility] GFR, EST. NONAFRICAN >60 >=60 10/16/2024 6:47 AM CDT [facility] Blood Venipuncture / Unknown 10/16/2024 6:20 AM CDT 10/16/2024 6:35 AM CDT us Sharita Kahn APRN, MANAGER OF MARKETING CHEMISTRY ORDERABLES Stephie l Result Performing Organization Address [facility]/ZIP Co de Phone Number [facility] [address] [place] [address] * RSV,SARS-COV-2,INFLUENZA A&B BY PCR (10/16/2024 6:20 AM CDT) FLU A Negative Negative, Error 10/16/2024 7:05 AM CDT [facility] FLU B Negative Negative 10/16/2024 7:05 AM CDT [facility] RESP SYNC VIRUS Negative Negative 7:05 AM CDT [facility] SARSCOV2 NOT DETECTED (Reference Range for this test is Not Detected) 10/16/2024 7:05 AM CDT [facility] Comment:This test was perfor med by a Reverse Surveyor'S Assistant PCR Method. Swab NASOPHARYNGEAL WASHINGS / Unknown Non-Phlebotomy Collection / Unknown 10/16/2024 6:20 AM CDT 10/16/2024 6:47 AM CDT us Sharita Kahn APRN, MANAGER OF MARKETING MICROBIOLOGY - GENERAL OR DERABLES Final Result Performing Organization Address [facility]/ZIP Co de Phone Number [facility] [address] [place] [address] * XR CHEST SINGLE VIEW PORTABLE (10/16/2024 [...] Ju Beckett M.D. TW: TW Report ID: [id number] Reading Location: [id number] Procedure Note Ju Beckett MD - 10/16/2024 [...] Ju Beckett M.D. TW: TW Report ID: [id number] Reading Location: [id number] IMPRESSION: No acute cardiopulmonary abnormality. us Mayur Mcdonough MD IMG DIAGNOSTIC ORDER DENIS Final Result * (ABNORMAL) Hemoglobin A1C w/ Estimated Glucose (10/16/2024 2:39 AM CDT) Pathologist [facility] HGB-A1C 7.9(H) 4.0 - 6.0 % 10/16/2024 6:43 AM CDT [facility] Est Average Glucose 180.0 mg/dL 10/16/2024 6:43 AM CDT [facility] Blood Venipuncture / Unknown 10/16/2024 2:39 AM CDT 10/16/2024 2:46 AM CDT Narrative [facility] - 10/16/2024 6:43 AM CDT HEMOGLOBIN A1C: DIABETIC PATIENTS: WELL-CONTROLLED: 6.2 - 7.0 INTERMEDIATE WELL-CONTROLLED: 7.0 - 9.0 POORLY-CONTROLLED: >9.0 Specimens containing greater than 5% of Hemoglobin F may result in lower than expected % HbA1C results. us Sharita Kahn APRN MANAGER OF MARKETING CHEMISTRY ORDERABLES Stephie l Result [facility] [address] [place] [address] * (ABNORMAL) CBC with Auto Differential (10/16/2024 2:39 AM CDT) WBC 15.02(H) 4.00 - 12.00 10(3)/mcL 10/16/2024 3:06 AM CDT [facility] RBC 4.90 4.40 - 5.80 10(6)/mcL 10/16/2024 3:06 AM CDT [facility] HEMOGLOBIN (HGB) 14.3 13.0 - 16.5 g/dL 10/16/2024 3:06 AM CDT [facility] HEMATOCRIT (HCT) 42.9 38.0 - 50.0 % 10/16/2024 3:06 AM CDT [facility] MCV 87.6 82.0 - 96.0 fL 10/16/2024 3:06 AM CDT [facility] MCH 29.2 26.0 - 32.0 pg 10/16/2024 3:06 AM CDT [facility] MCHC 33.3 31.0 - 36.0 g/dL 10/16/2024 3:06 AM CDT [facility] PLATELET COUNT 315 140 - 440 10(3)/mcL 10/16/2024 3:06 AM CDT [facility] RDW 13.5 11.8 - 15.5 % 10/16/2024 3:06 AM CDT [facility] MPV 10.6 8.0 - 12.6 fL 10/16/2024 3:06 AM CDT [facility] NEUTROPHILS 87.6(H) 40.0 - 68.0 % 10/16/2024 3:06 AM CDT [facility] LYMPHOCYTES 9.3(L) 19.0 - 49.0 % 10/16/2024 3:06 AM CDT [facility] MONOCYTES 2.7(L) 3.0 - 13.0 % 10/16/2024 3:06 AM CDT [facility] EOSINOPHILS 0.0 0.0 - 8.0 % 10/16/2024 3:06 AM CDT [facility] BASOPHILS 0.4 0.0 - 1.0 % 10/16/2024 3:06 AM CDT [facility] ABSOLUTE NEUTROPHILS 13.16(H) 1.40 - 5.30 10(3)/mcL 10/16/2024 3:06 AM CDT [facility] ABSOLUTE LYMPHOCYTES 1.39 0.90 - 3.30 10(3)/mcL 10/16/2024 3:06 AM CDT [facility] ABSOLUTE MONOCYTES 0.41 0.10 - 0.90 10(3)/mcL 10/16/2024 3:06 AM CDT [facility] ABSOLUTE EOSINOPHIL 0.00 0.00 - 0.50 10(3)/mcL 10/16/2024 3:06 AM CDT [facility] ABSOLUTE BASOPHILS 0.06 0.00 - 0.10 10(3)/mcL 10/16/2024 3:06 AM CDT [facility] NRBC PER 100 WBC 0 10/17/19 3:06 AM CDT [facility] Blood Venipuncture / Unknown 10/16/2024 2:39 AM CDT 10/16/2024 2:46 AM CDT us Mayur Mcdonough MD HEMATOLOGY ORDERABLE S Final Result [facility] [address] [place] [address] * (ABNORMAL) Blood Gas, Venous (10/16/2024 2:39 AM CDT) PH VENOUS 7.46(H) 7.34 - 7.43 10/16/2024 3:04 AM CDT [facility] PCO2 (VENOUS) 23(L) 41 - 51 mmHg 10/16/2024 3:04 AM CDT [facility] PO2 VENOUS 133(H) 30 - 50 mmHg 10/16/2024 3:04 AM CDT [facility] O2 SAT JOHNNIE, MEASURED 99(H) 60 - 85 % 09/20 3:04 AM CDT [facility] BICARBONATE 16.7(L) 22.0 - 26.0 mmol/L 10/16/2024 3:04 AM CDT [facility] BASE VENOUS -4.6(L) -2.0 - 3.0 mmol/L 10/16/2024 3:04 AM CDT [facility] CARBOXYHEMOGLOBIN 0.5 0.0 - 5.0 % 10/16/2024 3:04 AM CDT [facility] METHEMOGLOBIN 0.7 0.0 - 1.5 % 10/16/2024 3:04 AM CDT [facility] JOHNNIE Blood Gas Venipuncture / Unknown 10/16/2024 2:39 AM CDT 10/16/2024 2:50 AM CDT Narrative [facility] - 10/16/2024 3:04 AM CDT Interpretation [...] gas values is always prudent. us Mayur Mcdonough MD CHEMISTRY ORDERABLES Final Result [facility] [address] [place] [address] * Lipase (10/16/2024 2:39 AM CDT) LIPASE 8 8 - 78 U/L 10/16/2024 3:36 AM CDT [facility] Blood Venipuncture / Unknown 10/16/2024 2:39 AM CDT 10/16/2024 2:46 AM CDT us Mayur Mcdonough MD CHEMISTRY ORDERABLES Final Result Performing Organization Address [facility]/ZIP Co de Phone Number [facility] [address] [place] [address] * ETOH Level (10/16/2024 2:39 AM CDT) ETHANOL <10 <10 mg/dL 10/16/2024 3:3 6 AM CDT [facility] Blood Venipuncture / Unknown 10/16/2024 2:39 AM CDT 10/16/2024 2:46 AM CDT us Mayur Mcdonough MD CHEMISTRY ORDERABLES Final Result Performing Organization Address [facility] Co de Phone Number [facility] [address] [place] [address] * (ABNORMAL) CMP (10/16/2024 2:39 AM CDT) Pathologist [facility] SODIUM 141 136 - 145 mmol/L 10/16/2024 3:36 AM CDT [facility] POTASSIUM 4.2 3.5 - 5.1 mmol/L 10/16/2024 3:36 AM CDT [facility] CHLORIDE 107 98 - 107 mmol/L 10/16/2024 3:36 AM CDT [facility] CO2, VENOUS 15(L) 22 - 30 mmol/L 10/16/2024 3:36 AM CDT [facility] ANION GAP 23.2(H) <18.0 mmol/L 10/16/2024 3:36 AM CDT [facility] GLUCOSE 256(H) 70 - 99 mg/dL 10/16/2024 3:36 AM CDT [facility] BUN 23(H) 9 - 21 mg/dL 10/16/2024 3:36 AM CDT [facility] CREATININE, BLOOD 1.21 0.70 - 1.30 mg/dL 10/16/2024 3:36 AM T [facility] BUN/CREATININE RATIO 19 12 - 20 ratio 10/16/2024 3:36 AM T [facility] TOTAL PROTEIN 7.9 6.0 - 8.0 g/dL 10/16/2024 3:36 AM CDT [facility] ALBUMIN 4.7 3.5 - 5.0 g/dL 10/16/2024 3:36 AM T [facility] A/G RATIO 1.5 1.0 - 2.2 10/16/2024 3:36 AM T [facility] CALCIUM 9.2 8.7 - 10.5 mg/dL 10/16/2024 3:36 AM T [facility] T BILI 0.7 0.2 - 1.2 mg/dL 10/16/2024 3:36 AM T [facility] SGOT (AST) 28 <43 U/L 10/16/2024 3:36 AM [facility] SGPT (ALT) 17 <56 U/L 10/16/2024 3:36 AM [facility] ALKALINE PHOSPHATASE 78 40 - 150 U/L 10/16/2024 3:36 AM [facility] GFR, ESTIMATED >60 >=60 10/16/2024 3:36 AM [facility] Comment: Creatinine Clearance is the preferred criteria for selecting drug dose adjustments in renally impaired patients. The GFR is provided as additional pertinent clinical information. GFR is reported in mL/min/1.73 sq m. Calculation based on the Chronic Kidney Disease Epidemiology Collaboration (CKD- EPI) equation refit without adjustment for race. GFR, EST. >60 >=60 025 3:36 AM T [facility] GFR, EST. NONAFRICAN >60 >=60 10/16/2024 3:36 AM [facility] Blood Venipuncture / Unknown 10/16/2024 2:39 AM CDT 10/16/2024 2:46 AM CDT us Mayur Mcdonough MD CHEMISTRY ORDERABLES Final Result [facility] [address] [place] [address] * Critical Care (10/16/2024 2:34 AM CDT) [...] MD PROCEDURE/MINOR SURG ICAL ORDERABLES Final Result documented in this encounter Visit Diagnoses Diagnosis Diabetic ketoacidosis without coma associated with type 1 diabetes mellitus (HCC)- Primary Diabetic ketoacidosis without coma associated with other specified diabetes mellitus (HCC) Cyclic vomiting syndrome Persistent vomiting Leukocytosis Leukocytosis, unspecified Nausea and vomiting Nausea with vomiting Type 1 diabetes mellitus (HCC) Type I (juvenile type) diabetes mellitus without mention of complication, not stated as uncontrolled documented in this encounter Admitting Diagnoses Diagnosis Diabetic ketoacidosis without coma associated with other specified diabetes mellitus (HCC) documented in this encounter Administered Medications Inactive Administered Medications - up to 3 most recent administrations Medication Order MAR Action Action Date Dose Rate Site acetaminophen (TYLENOL) suppository 650 mg 650 mg, Rectal, EVERY 4 HOURS PRN, Starting on Sat10/16/24 at 0536, Until Sat10/16/24 at 1034, Mild pain or more severe pain if patient requests, Fever, If patient is taking oral intake without complications and both PO/NY orders are active, administer through the oral route. acetaminophen (TYLENOL) tablet 650 mg 650 mg, Oral, EVERY 4 HOURS PRN, Starting on Sat10/16/24 at 0536, Until Sat10/16/24 at 1034, Mild pain or more severe pain if patient requests, Fever, If patient is taking oral intake without complications and both PO/NY orders are active, administer through the oral route. dextrose 5 %-0.45 % sodium chloride infusion at 100 mL/hr, Intravenous, CONTINUOUS, Starting on Sat10/16/24 at 0530, Until Sat10/16/24 at 1034, Nursing Adult DKA Dextrose Maintenance Fluid: 1) Start at 125 mL/hr when BLOOD GLUCOSE is less than 200 mg/dl. 2) Call Provider if K+ is below 3.3 meq/L. Restarted 10/16/2024 7:28 AM CDT 100 mL/hr New Bag 10/16/2024 4:56 AM CDT 125 mL/hr IV Linked Line dextrose 50 % solution 12.5 g 12.5 g, Intravenous, PRN, Starting on Sat10/16/24 at 0719, Until Sat10/16/24 at 1034, Low blood sugar, If IV patent in patient with blood glucose of 50 or less, or Unconscious, Conscious but NPO or Unable to Swallow regardless of blood glucose, administer 1 dose of dextrose 50% solution. diphenhydrAMINE (BENADRYL) injection 25 mg 25 mg, Intravenous, ONCE, 1 dose, On Sat10/16/24 at 0300 Given 10/16/2024 2:48 AM CDT 25 mg enoxaparin (LOVENOX) injection 40 mg 40 mg, Subcutaneous, EVERY 24 HOURS SCHEDULED (Daily), First dose on Sat10/16/24 at 0900, Until DiscontinuedIndications:Prophy laxis of Venous Thromboembolism Glucagon Emergency injection KIT 1 mg 1 mg, Intramuscular, PRN, Starting on Sat10/16/24 at 0719, Until Sat10/16/24 at 103, If patient has no intravenous access and blood glucose of 50 or less, or Unconscious, Conscious but NPO or Unable to Swallow regardless of blood glucose administer 1 dose of glucagon. Glucagon may cause vomiting. Position patient on the side., Other, Low blood sugar Glucagon Emergency injection KIT 1 mg 1 mg, Subcutaneous, PRN, Starting on Sat10/16/24 at 0719, Until Sat10/16/24 at 1034, If patient has no intravenous access and blood glucose of 50 or less, or Unconscious, Conscious but NPO or Unable to Swallow regardless of blood glucose administer 1 dose of glucagon. Glucagon may cause vomiting. Position patient on the side., Other, Low blood sugar glucose (GLUTOSE) 40 % gel GEL 15 g 15 g, Oral, PRN, Starting on Sat10/16/24 at 0719, Until Sat10/16/24 at 1034, Low blood sugar, Dose is based on glucose. 37.5 g tube = 15 GRAMS of GLUCOSE. For 15 GRAM GLUCOSE dose, give entire 37.5 g size tube. Administer 1 dose if patient is unable to take food, but conscious and able to swallow. insulin lispro (HumaLOG) 100 UNIT/ML injection 3-15 Units 3-15 Units, Subcutaneous, EVERY 6 HOURS SCHEDULED (4 times per day), First dose on Sat10/16/24 at 0800, Until Discontinued, If BS is: 70-180 give no correction Insulin; 181-200 give 3 Units; 201-250 give 6 Units; 251-300 give 9 Units; 301-350 give 11 Units; 351-400 give 13 Units; Greater than 400 give 15 Units and call physician. Insulin Regular(Human) in NaCl 100-0.9 UT/100ML-% infusion 2.8 Units/hr (2.8 mL/hr), Intravenous, CONTINUOUS, Starting on Sat10/16/24 at 0500, Until Sat10/16/24 at 0721, 1) Start at 0.1 unit/kg/hr (round up to the nearest 0.5 unit/hr). 2) Verify that K+ is greater than or equal to 3.3 meq/L prior to starting (round up to the nearest 0.5 unit/hr) and check BLOOD GLUCOSE every 1 hr. 3) Titrate IV Insulin Infusion as follows: A. BLOOD GLUCOSE has NOT DECREASED after FIRST HOUR of insulin infusion initiation: 1. Continue Current rate ; Contact Provider; Check BG in 1 hour. B. BLOOD GLUCOSE above 200 mg/dl: 1. Condition A: NOT decreasing for 2 (two) consecutive readings = Contact Provider, Continue Current rate until Provider gives further direction; Check BG in 1 hour. 2. Condition B: DECREASED BY MORE THAN 100 mg/dl = Contact Provider, Continue Current rate until Provider gives further direction; Check BG in 1 hour. 3. Condition C: Condition A OR Condition B not met = Continue current rate; Check BG in 1 hour. C. BLOOD GLUCOSE 70 to 200 mg/dl: 1. Decrease insulin rate by: 50% (half of current rate) BUT not less than 1 unit/hr, OR Provider instructions. 2. Switch Maintenance IV Fluid to D5W 0.45% NaCl (use Nursing Adult DKA Dextrose Maintenance IV Fluid order) to run at 125 mL/hr; if not already done. 3. Contact Provider to inform of changes and current labs values (sodium, potassium, Anion Gap and Bicarbonate) - if not already done. 4. Check BG in 1 hour (If BG between 150-200 mg/dl for 4 (four) consecutive BG readings, may check BG every 2 hours). D. BLOOD GLUCOSE below 70 mg/dl: 1. Hold insulin infusion; Follow hypoglycemic interventions., 2. Contact Provider STAT for further instructions. Rate Change 10/16/2024 7:00 AM CDT 2.8 Units/hr 2.8 mL/hr Rate Change 10/16/2024 5:48 AM CDT 3.8 Units/hr 3.8 mL/hr IV Linked Line New Bag 10/16/2024 4:48 AM CDT 7.5 Units/hr 7.5 mL/hr IV Linked Line ketorolac (TORADOL) injection 15 mg 15 mg, Intravenous, ONCE, 1 dose, On Sat10/16/24 at 0430 Given 10/16/2024 4:08 AM CDT 15 mg IV Linked Line metoclopramide (REGLAN) injection 10 mg 10 mg, Intravenous, ONCE, 1 dose, On Sat10/16/24 at 0300 Given 10/16/2024 2:48 AM CDT 10 mg ondansetron (ZOFRAN) injection 4 mg 4 mg, Intravenous, ONCE, 1 dose, On Sat10/16/24 at 0430 Given 10/16/2024 4:09 AM CDT 4 mg IV Linked Line ondansetron (ZOFRAN) injection 4 mg 4 mg, Intravenous, EVERY 6 HOURS PRN, Starting on Sat10/16/24 at 0534, Until Sat10/16/24 at 1034, 1. First Line Antiemetic. 2. Use Injection only if patient unable to tolerate oral medications., Nausea - 1st line Given 10/16/2024 8:09 AM CDT 4 mg ondansetron (ZOFRAN-ODT) disintegrating tablet 4 mg 4 mg, Oral, EVERY 6 HOURS PRN, Starting on Sat10/16/24 at 0534, Until Sat10/16/24 at 1034, Nausea - 1st line, 1. First Line Antiemetic. 2. Use PO form unless unable to tolerate PO medications, then use Injection Prochlorperazine Edisylate (COMPAZINE) injection 10 mg 10 mg, Intravenous, ONCE, 1 dose, On Sat10/16/24 at 0800 Given 10/16/2024 7:53 AM CDT 10 mg sodium chloride 0.9 % 1,000 mL IV bolus Intravenous, ONCE, 1 dose, On Sat10/16/24 at 0300, Administer over 0.5 Hours New Bag 10/16/2024 2:48 AM CDT 2000 mL/hr sodium chloride 0.9 % 1,000 mL IV bolus Intravenous, ONCE, 1 dose, On Sat10/16/24 at 0300, Administer over 0.5 Hours New Bag 10/16/2024 4:08 AM CDT 2000 mL/hr IV Linked Line documented in this encounter Active and Recently Administered Medications Times are shown in CDT. Scheduled Medication Order 10/14/2024 10/15/2024 10/16/2024 diphenhydrAMINE (BENADRYL) injection 25 mg (COMPLETED) 25 mg, Intravenous, ONCE, 1 dose, On Sat10/16/24 at 0300 0248 (Given - Provid er: Ayesha Dyer RN) enoxaparin (LOVENOX) injection 40 mg 40 mg, Subcutaneous, EVERY 24 HOURS SCHEDULED (Daily), First dose on Sat10/16/24 at 0900, Until Discontinued 0900 (Not Given - Pr ovider: Courtney Mai RN - Reason: Patient/family refused) insulin lispro (HumaLOG) 100 UNIT/ML injection 3-15 Units 3-15 Units, Subcutaneous, EVERY 6 HOURS SCHEDULED (4 times per day), First dose on Sat10/16/24 at 0800, Until Discontinued, If BS is: 70-180 give no correction Insulin; 181-200 give 3 Units; 201-250 give 6 Units; 251-300 give 9 Units; 301-350 give 11 Units; 351-400 give 13 Units; Greater than 400 give 15 Units and call physician. 0800 (Due) ketorolac (TORADOL) injection 15 mg (COMPLETED) 15 mg, Intravenous, ONCE, 1 dose, On Sat10/16/24 at 0430 0408 (Given - Provid er: Aida Alicea RN) metoclopramide (REGLAN) injection 10 mg (COMPLETED) 10 mg, Intravenous, ONCE, 1 dose, On Sat10/16/24 at 0300 0248 (Given - Provid er: Ayesha Dyer RN) ondansetron (ZOFRAN) injection 4 mg (COMPLETED) 4 mg, Intravenous, ONCE, 1 dose, On Sat10/16/24 at 0430 0409 (Given - Provid er: Aida Alicea RN) Prochlorperazine Edisylate (COMPAZINE) injection 10 mg (COMPLETED) 10 mg, Intravenous, ONCE, 1 dose, On Sat10/16/24 at 0800 0753 (Given - Provid er: Courtney Mai RN) sodium chloride 0.9 % 1,000 mL IV bolus (COMPLETED) Intravenous, ONCE, 1 dose, On Sat10/16/24 at 0300, Administer over 0.5 Hours 0248 (New Bag - Prov ider: Ayesha Dyer RN)0408 (Stopped - Provider: Aida Alicea RN) sodium chloride 0.9 % 1,000 mL IV bolus (COMPLETED) Intravenous, ONCE, 1 dose, On Sat10/16/24 at 0300, Administer over 0.5 Hours 0408 (New Bag - Prov ider: Aida Alicea RN)0441 (Stopped - Provider: Aida Alicea RN) Continuous Medication Order 10/14/2024 10/15/2024 10/16/2024 dextrose 5 %-0.45 % sodium chloride infusion at 100 mL/hr, Intravenous, CONTINUOUS, Starting on Sat10/16/24 at 0530, Until Sat10/16/24 at 1034, Nursing Adult DKA Dextrose Maintenance Fluid: 1) Start at 125 mL/hr when BLOOD GLUCOSE is less than 200 mg/dl. 2) Call Provider if K+ is below 3.3 meq/L. 0456 (New Bag - Prov ider: Aida Alicea, RN)0718 (Stopped - Provider: Jessika Simms, RN)0728 (Restarted - Provider: Courtney Mai, RN)0810 (Stopped - Provider: Courtney Mai RN) Insulin Regular(Human) in NaCl 100-0.9 UT/100ML-% infusion (CANCELED) 2.8 Units/hr (2.8 mL/hr), Intravenous, CONTINUOUS, Starting on Sat10/16/24 at 0500, Until Sat10/16/24 at 0721, 1) Start at 0.1 unit/kg/hr (round up to the nearest 0.5 unit/hr). 2) Verify that K+ is greater than or equal to 3.3 meq/L prior to starting (round up to the nearest 0.5 unit/hr) and check BLOOD GLUCOSE every 1 hr. 3) Titrate IV Insulin Infusion as follows: A. BLOOD GLUCOSE has NOT DECREASED after FIRST HOUR of insulin infusion initiation: 1. Continue Current rate ; Contact Provider; Check BG in 1 hour. B. BLOOD GLUCOSE above 200 mg/dl: 1. Condition A: NOT decreasing for 2 (two) consecutive readings = Contact Provider, Continue Current rate until Provider gives further direction; Check BG in 1 hour. 2. Condition B: DECREASED BY MORE THAN 100 mg/dl = Contact Provider, Continue Current rate until Provider gives further direction; Check BG in 1 hour. 3. Condition C: Condition A OR Condition B not met = Continue current rate; Check BG in 1 hour. C. BLOOD GLUCOSE 70 to 200 mg/dl: 1. Decrease insulin rate by: 50% (half of current rate) BUT not less than 1 unit/hr, OR Provider instructions. 2. Switch Maintenance IV Fluid to D5W 0.45% NaCl (use Nursing Adult DKA Dextrose Maintenance IV Fluid order) to run at 125 mL/hr; if not already done. 3. Contact Provider to inform of changes and current labs values (sodium, potassium, Anion Gap and Bicarbonate) - if not already done. 4. Check BG in 1 hour (If BG between 150-200 mg/dl for 4 (four) consecutive BG readings, may check BG every 2 hours). D. BLOOD GLUCOSE below 70 mg/dl: 1. Hold insulin infusion; Follow hypoglycemic interventions., 2. Contact Provider STAT for further instructions. 0448 (New Bag - Prov ider: Aida Alicea RN)0548 (Rate Change - Provider: Aida Alicea RN)0700 (Rate Change - Provider: Jessika Simms RN)0717 (Stopped - Provider: Jessika Simms RN) PRN Medication Order 10/14/2024 10/15/2024 10/16/2024 acetaminophen (TYLENOL) suppository 650 mg(Linked Group 1) 650 mg, Rectal, EVERY 4 HOURS PRN, Starting on Sat10/16/24 at 0536, Until Sat10/16/24 at 1034, Mild pain or more severe pain if patient requests, Fever, If patient is taking oral intake without complications and both PO/NY orders are active, administer through the oral route. acetaminophen (TYLENOL) tablet 650 mg(Linked Group 1) 650 mg, Oral, EVERY 4 HOURS PRN, Starting on Sat10/16/24 at 0536, Until Sat10/16/24 at 1034, Mild pain or more severe pain if patient requests, Fever, If patient is taking oral intake without complications and both PO/NY orders are active, administer through the oral route. dextrose 50 % solution 12.5 g(Linked Group 2) 12.5 g, Intravenous, PRN, Starting on Sat10/16/24 at 0719, Until Sat10/16/24 at 1034, Low blood sugar, If IV patent in patient with blood glucose of 50 or less, or Unconscious, Conscious but NPO or Unable to Swallow regardless of blood glucose, administer 1 dose of dextrose 50% solution. Glucagon Emergency injection KIT 1 mg(Linked Group 2) 1 mg, Intramuscular, PRN, Starting on Sat10/16/24 at 0719, Until Sat10/16/24 at 1034, If patient has no intravenous access and blood glucose of 50 or less, or Unconscious, Conscious but NPO or Unable to Swallow regardless of blood glucose administer 1 dose of glucagon. Glucagon may cause vomiting. Position patient on the side., Other, Low blood sugar Glucagon Emergency injection KIT 1 mg(Linked Group 2) 1 mg, Subcutaneous, PRN, Starting on Sat10/16/24 at 0719, Until Sat10/16/24 at 1034, If patient has no intravenous access and blood glucose of 50 or less, or Unconscious, Conscious but NPO or Unable to Swallow regardless of blood glucose administer 1 dose of glucagon. Glucagon may cause vomiting. Position patient on the side., Other, Low blood sugar glucose (GLUTOSE) 40 % gel GEL 15 g(Linked Group 2) 15 g, Oral, PRN, Starting on Sat10/16/24 at 0719, Until Sat10/16/24 at 1034, Low blood sugar, Dose is based on glucose. 37.5 g tube = 15 GRAMS of GLUCOSE. For 15 GRAM GLUCOSE dose, give entire 37.5 g size tube. Administer 1 dose if patient is unable to take food, but conscious and able to swallow. ondansetron (ZOFRAN) injection 4 mg(Linked Group 3) 4 mg, Intravenous, EVERY 6 HOURS PRN, Starting on Sat10/16/24 at 0534, Until Sat10/16/24 at 1034, 1. First Line Antiemetic. 2. Use Injection only if patient unable to tolerate oral medications., Nausea - 1st line 0809 (Given - Provid er: Courtney Mai RN) ondansetron (ZOFRAN-ODT) disintegrating tablet 4 mg(Linked Group 3) 4 mg, Oral, EVERY 6 HOURS PRN, Starting on Sat10/16/24 at 0534, Until Sat10/16/24 at 1034, Nausea - 1st line, 1. First Line Antiemetic. 2. Use PO form unless unable to tolerate PO medications, then use Injection 0809 (See Alternativ e - Provider: Courtney Mai RN) Linked Groups Order Group 1: acetaminophen (TYLENOL) tablet 650 mgJump to med 650 mg, Oral, EVERY 4 HOURS PRN, Starting on Sat10/16/24 at 0536, Until Sat10/16/24 at 1034, Mild pain or more severe pain if patient requests, Fever, If patient is taking oral intake without complications and both PO/NY orders are active, administer through the oral route. Or acetaminophen (TYLENOL) suppository 650 mgJump to med 650 mg, Rectal, EVERY 4 HOURS PRN, Starting on Sat10/16/24 at 0536, Until Sat10/16/24 at 1034, Mild pain or more severe pain if patient requests, Fever, If patient is taking oral intake without complications and both PO/NY orders are active, administer through the oral route. Group 2: glucose (GLUTOSE) 40 % gel GEL 15 gJump to med 15 g, Oral, PRN, Starting on Sat10/16/24 at 0719, Until Sat10/16/24 at 1034, Low blood sugar, Dose is based on glucose. 37.5 g tube = 15 GRAMS of GLUCOSE. For 15 GRAM GLUCOSE dose, give entire 37.5 g size tube. Administer 1 dose if patient is unable to take food, but conscious and able to swallow. Or dextrose 50 % solution 12.5 gJump to med 12.5 g, Intravenous, PRN, Starting on Sat10/16/24 at 0719, Until Sat10/16/24 at 1034, Low blood sugar, If IV patent in patient with blood glucose of 50 or less, or Unconscious, Conscious but NPO or Unable to Swallow regardless of blood glucose, administer 1 dose of dextrose 50% solution. Or Glucagon Emergency injection KIT 1 mgJump to med 1 mg, Intramuscular, PRN, Starting on Sat10/16/24 at 0719, Until Sat10/16/24 at 1034, If patient has no intravenous access and blood glucose of 50 or less, or Unconscious, Conscious but NPO or Unable to Swallow regardless of blood glucose administer 1 dose of glucagon. Glucagon may cause vomiting. Position patient on the side., Other, Low blood sugar Or Glucagon Emergency injection KIT 1 mgJump to med 1 mg, Subcutaneous, PRN, Starting on Sat10/16/24 at 0719, Until Sat10/16/24 at 1034, If patient has no intravenous access and blood glucose of 50 or less, or Unconscious, Conscious but NPO or Unable to Swallow regardless of blood glucose administer 1 dose of glucagon. Glucagon may cause vomiting. Position patient on the side., Other, Low blood sugar Group 3: ondansetron (ZOFRAN-ODT) disintegrating tablet 4 mgJump to med 4 mg, Oral, EVERY 6 HOURS PRN, Starting on Sat10/16/24 at 0534, Until Sat10/16/24 at 1034, Nausea - 1st line, 1. First Line Antiemetic. 2. Use PO form unless unable to tolerate PO medications, then use Injection Or ondansetron (ZOFRAN) injection 4 mgJump to med 4 mg, Intravenous, EVERY 6 HOURS PRN, Starting on Sat10/16/24 at 0534, Until Sat10/16/24 at 1034, 1. First Line Antiemetic. 2. Use Injection only if patient unable to tolerate oral medications., Nausea - 1st line documented in this encounter Additional Health Concerns Infection Onset Date Last Indicated Resolved Time COVID - 19 10/16/2024 10/16/2024 10/16/2024 7:05 AM CDT documented as of this encounter Care Teams Ammonia Box Tender Relationship Specialty Start Date End Date Ammy Saldana, PAC [address] [place] [id number] PCP - General Physician Conference Service Coordinator 04/03/19 documented as of this encounter
[2024-10-16 12:46] LABS: Base Excess ABG 1.7 mmol/L (0-2); HCO3 ABG 24.8 mmol/L (23-29); Oxygen Saturation ABG 96.6 % (95-97); Oxyhemoglobin 95.9 % (94-100); PCO2 ABG 33.9 mmHg (35-45); PO2 ABG 93.4 mmHg (80-90); pH ABG 7.48 (7.35-7.45)
[2024-10-16 12:47] LABS: Basophils Absolute Auto 0.04 K/mm3 (0.00-0.10); Basophils Percent Auto 0.2 % (0.0-1.0); Device ROOM AIR; Hematocrit 38.3 % (40.0-54.0); Hemoglobin 12.5 g/dL (14.0-18.0); Immature Granulocyte Absolute 0.11 K/mm3 (0.00-0.00); Immature Granulocyte Percent A 0.6 % (0.0-0.0); Mean Corpuscular HGB Conc 32.6 g/dL (32-36); Mean Corpuscular Hemoglobin 28.3 pg (27.0-31.0); Mean Corpuscular Volume 86.7 fL (78.0-102.0); Mean Platelet Volume 9.4 fl (8.7-11.0); Modified Allen's Test Pass; Monocytes Absolute Auto 0.98 K/mm3 (0.10-0.90); Monocytes Percent Auto 4.9 % (2.0-11.0); Neutrophils Absolute Auto 17.64 K/mm3 (1.70-7.20); Neutrophils Percent Auto 88.3 % (50.0-70.0); Platelet Count Result 298 K/mm3 (150-420); Red Blood Count 4.42 M/mm3 (4.70-6.10); Red Cell Distribution Width 13.7 % (11.6-14.4); Site Drawn RIGHT RADIAL
[2024-10-16] MEDS: ONDANSETRON INJ 4 MG/2 ML VIAL IV PUSH ×3 (12:58→17:19)
[2024-10-16] MEDS: SODIUM CHLORIDE 0.9% IV 1,000 ML 999 ML IV CONT ×2 (12:58→14:20)
[2024-10-16 13:16] LABS: Acetone Negative (Negative)
[2024-10-16 13:49] LABS: Alanine Aminotransferase 21 U/L (16-63); Albumin Level 3.9 g/dL (3.4-5.0); Alkaline Phosphatase 83 U/L (46-116); Anion Gap 10 mmol/L (4-12); Aspartate Amino Transferase 20 U/L (15-37); Bilirubin,Total 0.7 mg/dL (0.00-1.00); Blood Urea Nitrogen 25 mg/dL (7-18); Calcium 8.6 mg/dL (8.5-10.1); Carbon Dioxide 28 mmol/L (21-32); Chloride 102 mmol/L (98-108); Estimated CRCL calculation 70 ml/min; Estimated Glomerular Filt Rate > 60; Glucose 212 mg/dL (70-99); Osmolality Calculated 300 mOsm/kg (285-295); Potassium 3.8 mmol/L (3.5-5.1); Sodium 140 mmol/L (136-145); Total Protein 7.2 g/dL (6.4-8.2)
--- NOTE | 2024-10-16 13:52 | PC.NURSE ---
dr kearns in with pt and mother. discussing plan of care.
[2024-10-16 13:54] LABS: Lactic Acid Reflex 1.4 mmol/L (0.4-2.0)
[2024-10-16 14:03] VITALS: BP 176/86; PULSE 100; RESP 20; TEMP 36.9; O2SAT 99
[2024-10-16 14:12] LABS: Lipase 10 U/L (16-77); Magnesium 1.5 mg/dL (1.8-2.4)
[2024-10-16 14:30] LABS: Add Urine Microscopic? YES; Appearance Urine Clear (Clear); Bilirubin Urine Negative (Negative); Blood Urine Trace-intact (Negative); Color Urine Yellow (Yellow); Glucose Urine UA 2+ (Negative); Ketones Urine 3+ (Negative); Leukocyte Esterase Ur Negative LEU/UL (Negative); Nitrate Urine Negative (Negative); Protein Urine 3+ (Negative); Specific Grav Ur 1.025 (1.010-1.020); Urobilinogen Urine 0.2 mg/dL (0.2-1.0)
[2024-10-16 14:36] LABS: Amphetamine Screen Urine Negative (Negative); Barbiturate Screen Urine Negative (Negative); Benzodiazepines Screen Urine Negative (Negative); Cannabinoid Screen Urine Positive (Negative); Cocaine Screen Urine Negative (Negative); Methadone Screen Urine Negative (Negative); Opiate Screen Urine Negative (Negative); Phencyclidine Screen Urine Negative (Negative)
[2024-10-16 14:37] LABS: RBC Urine 0-2 /hpf (0-2); Squamous Epithelial Cell Urine Few /hpf (Few); WBC Urine 0-3 /hpf (0-3)
[2024-10-16 14:38] LABS: Bacteria Urine 2+ /hpf; Mucus Urine Moderate /lpf
[2024-10-16] MEDS: METOCLOPRAMIDE HCL INJ 10 MG/2 ML VIAL IV PUSH (15:30)
[2024-10-16] MEDS: MAGNESIUM SULF 2 GM/WATER 50ML 2 GM/50 ML BAG IVPB (16:17)
[2024-10-16 16:32] VITALS: BP 199/108; PULSE 102; RESP 20; O2SAT 99
--- NOTE | 2024-10-16 16:34 | PC.NURSE ---
pt continues dry heeving. i want to go home . mother and girlfriend in room.
--- NOTE | 2024-10-16 17:09 | PC.NURSE ---
PT DRY HEAVING , FAMILY MEMBER AT DESK REQUESTING MORE MEDICATIONS, SPEAKING WITH DOCTOR AT DESK.
--- NOTE | 2024-10-16 18:02 | PC.NURSE ---
pt awake now. dry heaving. grandmother at desk.
--- NOTE | 2024-10-16 18:04 | PC.NURSE ---
girlfriend at desk, stating pt wants to sign out ama. dr kearns down to room to speak with pt.
[2024-10-16 21:54] LABS: Glucose Point of Care 183 mg/dl (65-105)
--- NOTE | 2024-10-18 12:45 | PC.NURSE ---
Preliminary blood culture; no growth to date.
== END 2024-10-16 18:07 | disposition left against medical advice (07) ==
PROVIDERS: Emergency Provider Emergency Medicine; PCP Physician Assistant
DX: N17.9 Acute kidney failure, unspecified (principal); K20.90 Esophagitis, unspecified without bleeding; D72.829 Elevated white blood cell count, unspecified; E10.9 Type 1 diabetes mellitus without complications; R11.2 Nausea with vomiting, unspecified; E86.0 Dehydration; Z90.49 Acquired absence of other specified parts of digestive tract
CPT/HCPCS: 36415; 36600; 74177; 80053; 80307; 81001; 82010; 82805; 82948; 83036; 83605; 83690; 83735; 85025; 87040; 96361; 96365; 96375; 96376; 99284; J2405; J2765; J3475; J7030; Q9967

== ENCOUNTER 2024-11-03 15:06 | Emergency (ER) | payer OTHER, SELFPAY ==
[2024-11-03 15:13] VITALS: BP 146/99; PULSE 78; RESP 20; TEMP 37.1; O2SAT 100
--- NOTE | 2024-11-03 15:26 | ED_ITS ---
HPI - Abdominal Pain General Chief Complaint: Abdominal Pain Stated Complaint: abd pain Time Seen by Provider: 11/03/24 15:28 Source: patient, RN notes reviewed and old records reviewed Mode of arrival: ambulatory Limitations: no limitations History of Present Illness HPI narrative: 24 year old male who presents to [facility] care with complaints of intermittent upper epigastric pain for the past month. Patient is Type 1 diabetic with insulin pump, sugar per Dexcom 179 Patient states that for the past week every morning after he has been up for about an hour he get this upper epigastric pain and nausea, belching.. He states that he did vomit bilious material yesterday and has had diarrhea. Patient reports that he was in the ER 2 weeks ago and had labs and CT scan of abdomen. Patient is suppose to follow with GI doctor in [place] but will be February before he can get in and is on cancellation list if sooner appointment. Patient has history of gastroparesis takes daily Reglan and Protonix for his stomach has been taking also some antacids and Zofran. Patient has had his gall bladder removed. Mother states that he needs work note for today MD elicited complaint: abdominal pain (epigastric) Pertinent past history: other (diabetic type I, gastroparesis, ) Onset (ago): month(s) (epigastric pain for one month with increased symptoms for 1 week) Location: epigastric Pain scale (0-10): 3 Quality: aching and dull Exacerbating factors: eating Treatments prior to arrival: antacids and other (taakes Protonix and Reglan daily) Related Data Home Medications ?Medication ?Instructions ?Recorded ?Confirmed ?Last Taken ?Type atorvastatin 20 mg tablet mg 11/03/24 Unknown History blood-glucose sensor (Dexcom G7 11/03/24 11/03/24 Unknown History Sensor device) blood-glucose transmitter (Dexcom 11/03/24 11/03/24 Unknown History G6 Transmitter device) insulin lispro 100 unit/mL 11/03/24 Unknown History subcutaneous solution (Humalog U-100 Insulin) metoclopramide HCl 10 mg tablet mg 11/03/24 Unknown History pantoprazole 40 mg tablet,delayed mg PO 11/03/24 Unknown History release Allergies Allergy/AdvReac Type Severity Reaction Status Date / Time haloperidol (From Haldol) Allergy Unknown Unknown Verified 11/03/24 15:23 Review of Systems Review of Systems: CONSTITUTIONAL: Denies fever, chills, or sweats. EYES: Denies visual changes, redness, or discharge. ENT: Denies rhinorrhea, congestion, sore throat, or otalgia. CARDIOVASCULAR: Denies chest pain, palpitations, or edema. RESPIRATORY: Denies cough or dyspnea. GASTROINTESTINAL: Reports episodes of intermittent upper abdominal pain for the past month with increase symptoms for the past week. Patient reports that he did have nausea and vomiting yesterday of bilious mucous and he has had diarrhea for the past 2 days. Patient reports that after about an hour after he wakes up he gets this upper epigastric pain and gets worse when he eats and drinks. GENITOURINARY: Denies dysuria or hematuria. SKIN: Denies rash or itching. MUSCULOSKELETAL: Denies back pain, joint pain, or myalgia. NEUROLOGIC: Denies headache, numbness, or weakness. PSYCHIATRIC: Denies anxiety or depression. All systems reviewed & are unremarkable except as noted in HPI and below PMFSH Past Medical History Medical History Gastroparesis Elevated cholesterol Type 1 diabetes Surgical History Surgical History History of cholecystectomy Social History Social History Smoking status: Never smoker Alcohol intake: never Substance use: current Substance use type: marijuana Living arrangements: with family Gender identity (if verbalized by the patient): Male Comments At time of signature, agree with nursing past medical, surgical, social and family history. There is no relevant family history pertinent to the presenting complaint Exam Narrative: GENERAL: Well-appearing, well-nourished, and in no acute distress. HEAD: Normocephalic, atraumatic. EYES: PERRLA and EOMI. ENT: Nares clear, no rhinorrhea or epistaxis. Mucous membranes moist. NECK: Supple.no lymphadenopathy CHEST: Clear to auscultation. No respiratory distress.SAO2 100% on room air HEART: Regular rate and rhythm. No murmur heard. Normal peripheral pulses. ABDOMEN: Soft, nontender on palpation, nondistended, normal active bowel sounds. no liver enlargement palpated or any pain over pancreas area noted. Patient reports episodic upper epigastric pain associated with nausea and belching with incidence of bilious vomiting yesterday and some diarrhea. Went to [facility] ER and waited for 2 hours stated they were taking patients back that came in after him so they left. EXTREMITIES: Normal range of motion. No edema. SKIN: Warm, dry, no rash. NEURO: No focal deficits. Alert and oriented x3. Course Course Emergency Course: Patient is aware of diagnosis, understands and agrees to treatment plan.? Anticipatory guidance given.? Patient agrees to follow-up as directed and is aware of reasons to seek care at the emergency department. Portions of this record may have been created with voice recognition software Level of Care: Express Care Visit Vital Signs Vital signs: Vital Signs Temperature 37.1 C 11/03/24 15:13 Pulse Rate 78 11/03/24 15:13 Respiratory Rate 20 11/03/24 15:13 Blood Pressure 146/99 H 11/03/24 15:13 Pulse Oximetry 100 11/03/24 15:13 Oxygen Delivery Room Air 11/03/24 15:13 Temperature 37.1 C 11/03/24 15:13 Pulse Rate 78 11/03/24 15:13 Respiratory Rate 20 11/03/24 15:13 Blood Pressure 146/99 H 11/03/24 15:13 Pulse Oximetry 100 11/03/24 15:13 Oxygen Delivery Room Air 11/03/24 15:13 Reviewed MDM - Abdominal Pain Differential Diagnosis Differential diagnosis: Likely abdominal pain, gastroenteritis and other (gastritis, gastroparesis, ulcer) Medical Records Attestation: I reviewed the patient's medical records. Lab Data Attestation: I reviewed the patient's lab results. Lab results narrative: Influenza A negative, Influenza B negative, COVID antigen negative Labs: Lab Results 11/03/24 Range/Units 15:47 POC Influenza A Ag Negative (Negative) POC Influenza B Ag Negative (Negative) POC SARS CoV-2 Ag Negative (Negative) Critical Care Time Critical Care Time Critical Care Time: No Discharge Plan Discharge Clinical Impression: Gastroenteritis, History of diabetic gastroparesis Patient Disposition: Home Condition: Stable Instructions: Abdominal Pain (ED), Gastroparesis (ED) Additional Instructions: A bland diet can consist of--BRAT diet which is bananas, rice, applesauce, and toast Avoid fried, greasy, fatty, fried foods Avoid caffeine, nicotine, and alcohol Return to your regular diet in the next 3-4 days Medication as directed for nausea and vomiting Sometimes ibuprofen/Aleve can cause increased stomach upset use Tylenol only [id number] Imodium if develop diarrhea Follow-up with her PCP if continued problems or uncontrolled pain If your symptoms persist, change or worsen significantly before you can contact your personal physician then please, without delay, go to the emergency department for further evaluation. Follow-up with PCP in 7-10 days or sooner if needed Follow up with PCP soon in regards to your blood pressure which is elevated above threshold for referral. Blood pressure above 120/80 may indicate pre- hypertension. 146/99 Dr Pittman is GI specialist at [place] number given if they want to try to get in sooner with him Patient Language: Barbadian Prescriptions: No Action ondansetron 4 mg tablet,disintegrating 4 mg PO Q6H PRN (Reason: nausea and vomiting) Qty: 14 0RF atorvastatin 20 mg tablet pantoprazole 40 mg tablet,delayed release (DR/EC) PO insulin lispro [Humalog U-100 Insulin] 100 unit/mL solution Patient Comments: insulin pump metoclopramide HCl 10 mg tablet (DME) Dexcom G7 Sensor Device MISCELLANEOUS (DME) Dexcom G6 Transmitter Device MISCELLANEOUS Follow-up/Referrals: Les,REEMA Arizmendi [Primary Care Provider] - Stand Alone Forms: Work/School Release IP Time of Disposition: 16:04 Quality Andressa Coma Scale Eyes: Open Verbal: Oriented and Alert Motor: Follows Commands Andressa Coma Total Score: 15
[2024-11-03 16:07] LABS: EDCOVIDSCREEN Negative (Negative); EDINFLUASCREEN Negative (Negative); EDINFLUBSCREEN Negative (Negative)
--- OUTSIDE RECORDS SUMMARY | 2024-11-03 16:12 | XMS_ITS | Clinical Summary ---
Author Organization [facility] ospital Address [address] [place] [address] Care Team Providers Care Melter Operator Name Role Phone Con Beltrán MD Unavailable [phone] Prashanth Saldana Primary Care Provider [phone] Sidney Russell MD Unavailable [phone] Allergies Active Allergy Reactions Criticality Noted Date Comments Haloperidol Nausea & Vomiting Low 02/12/2024 Medications metoclopramide (REGLAN) 10 mg tablet Take 1 tablet (10 mg total) by mouth 4 (four) times a day as needed Active gabapentin (NEURONTIN) 300 mg capsule Take 1 capsule (300 mg total) by mouth 2 (two) times a day as needed (Patient reports taking this medication only as PRN) Active naproxen (NAPROSYN) 500 mg tablet Take 1 tablet (500 mg total) by mouth 2 (two) times a day as needed 03/18/20 22 Active Compro 25 mg suppository INSERT 1 SUPPOSITORY TWICE A DAY RECTALLY NEEDED. 02/17/20 22 Active ondansetron (ZOFRAN) 4 mg tablet TAKE 1-2 TABLETS BY MOUTH EVERY 8 HOURS NEEDED FOR NAUSEA - 1ST LINE. 06/29/20 22 Active blood-glucose meter kit Use daily as directed for monitoring of blood sugar for diabetes e10.65 1 kit 1 02/06/20 23 Active lancets misc 1 each by other route 3 (three) times a day before meals E10.65 100 each 11 02/06/20 23 Active insulin glargine 100 unit/mL (3 mL) pen for injection Inject 13 Units under the skin daily E10.65 use for insulin pump faillure. Pump has failed. 15 mL 11 02/06/20 23 Active Additional Information Patient not taking.Reported on 10/27/2024 pen needle, diabetic 32 gauge x /32 needle Use to inject insulin daily. E10.65 50 each 11 02/06/20 23 Active blood glucose diagnostic (SpodlyTouch Ultra Test) strip CHECK BLOOD SUGAR 3 TIMES DAILY OR DIRECTED 100 strip 11 08/28/19 24 Active traMADoL (ULTRAM) 50 mg tablet Take 1 tablet (50 mg total) by mouth every 6 (six) hours as needed for pain for up to 15 days 15 tablet 01/09/20 24 Active ProtAbcom G7 Sensor device 1 Device continuously . Change every 10 days. E11.65 10 each 3 02/12/20 24 Active insulin lispro (HumaLOG) 100 unit/mL vial for injection INJECT UP TO 100 UNITS DAILY PER INSULIN PUMP SETTINGS 30 mL 4 04/29/20 24 Active ondansetron ODT (ZOFRAN-ODT) 4 mg disintegrating tablet DISSOLVE 1 TABLET EVERY 6 HOURS NEEDED FOR NAUSEA AND VOMITING 10/17/[address] (PROTONIX) 40 mg EC tablet Take 1 tablet (40 mg total) by mouth daily 04/06/20 24 Active atorvastatin (LIPITOR) 20 mg tablet Take 1 tablet (20 mg total) by mouth daily 09/04/19 25 Active omeprazole (PriLOSEC) 20 mg capsule Take 1 capsule (20 mg total) by mouth daily 025 Discontin ued(Thera py completed ) famotidine (PEPCID) 20 mg tablet Take 1 tablet (20 mg total) by mouth 2 (two) times a day 025 Discontin ued(Thera py completed ) nortriptyline (PAMELOR) 25 mg capsule Take 1 capsule (25 mg total) by mouth nightly 30 capsule 04/07/20 21 025 Discontin ued(Thera py completed ) busPIRone (BUSPAR) 10 mg tablet 12/19/19 23 025 Discontin ued(Thera py completed ) penicillin v potassium (VEETID) 500 mg tablet Take 1 tablet (500 mg total) by mouth 3 (three) times a day 30 tablet 01/09/20 24 025 Discontin ued(Thera py completed ) rosuvastatin (CRESTOR) 20 mg tablet Take 1 tablet (20 mg total) by mouth nightly 90 tablet 4 02/13/20 24 025 Discontin ued(Thera py completed ) Dexcom G6 Transmitter device APPLY NEW TRANSMITTER EVERY 90 DAYS 1 each 4 04/06/20 24 025 Discontin ued(Thera py completed ) Active Problems Problem Noted Date Diagnosed Date Nausea and vomiting, unspecified vomiting type 0 10/17/2024 Tandem T slim Insulin pump in place 04/04/2022 Assessment & Plan (10/27/2024 8:59 AM CDT): This is a chronic condition which is worsening and not at goal. Download reviewed from (date incorrect) 02/18-03/03/2024 Type of insulin pump- tandem T slim with humalog insulin. Pump settings Basal 0000-1.25 ISF 30 Carb ratio-8 Active insulin time 5hrs. TARGET GLUCOSE 110 Avg Total daily insulin-56 units basal -32 units- 57 % bolus -24.5 units- 43 % Interpretation- lack of bolusing, Average blood sugar-236. In target-34%. Hypoglycemia-3%, hyperglycemia 63% . Assessment & Plan (02/12/2024 2:22 PM CDT): [...] . Assessment & Plan (07/10/2022 9:22 AM ENVELOPE STUFFER): This is a chronic condition which is not at goal. Unable to Download as he has a new pump and is not connected on tconnect. Type of insulin pump- tandem T slim [...] of less than 70. Encouraged to contact [facility] and have a new pump shipped Discussed [...] statin Assessment & Plan (07/10/2022 9:19 AM ENVELOPE STUFFER): This is a chronic condition which is [...] G6 at home. He was seen in [facility], but missed appointment in the adult diabetes clinic this year Home: romario 30 units, ICR 07/26,07/29, S: 07/26. I [...] prescribed. Assessment & Plan (08/04/2020 3:50 AM ENVELOPE STUFFER): H/o pancreatitis attributed to hypertriglyceridemia. TGs 215 on 05/27/20. -Continue home fenofibrate and atorvastatin Resolved Problems Problem Noted Date Diagnosed Date Resolved Date Leukocytosis 04/18/2021 04/04/2022 Gallbladder sludge 04/05/2021 Marijuana abuse 04/05/2021 04/04/2022 JACK (acute kidney injury) (CMS/HCC) 10/25/2020 04/04/2022 Diarrhea 10/25/2020 04/04/2022 Hypokalemia 08/04/2020 04/04/2022 Assessment & Plan (08/04/2020 3:59 AM ENVELOPE STUFFER): K to 3.2 after hyperglycemia protocol s/p 40 mEq of IV K in ED. -CTM w/ BMP Nausea and vomiting 07/05/2020 04/04/20 22 Assessment & Plan (08/04/2020 4:10 AM ENVELOPE STUFFER): Patient has chronic N/V, now presenting w/ 3 days of persistent N/V. No abdominal pain. Lipase 15 on presentation. +MJ use. DDx: cyclic vomiting vs. diabetic gastroparesis. -Zofran prn -Pepcid -Can trial Reglan -Encourage MJ cessation Assessment & Plan (07/05/2020 4:24 PM ENVELOPE STUFFER): Etiology likely DKA. Other considerations are PUD [...] 04/04/2022 Assessment & Plan (07/05/2020 4:26 PM ENVELOPE STUFFER): Etiology likely DKA. pH is 7.50 (alkalosis) [...] 04/04/2022 Assessment & Plan (08/04/2020 3:41 AM ENVELOPE STUFFER): Patient multiple past hospitalizations for DKA, most recently in June presenting w/ DKA after 3 days of persistent N/V. BG was 338 w/ AG 18, bicarb 21, ketones 3.2. BG now in the 100s and AG close after hyperglycemia protocol. A1C 10.5 08/02/20. Is a patient of Dr. Swift at [facility] in [place]. Last seen on 07/25 with plan for [...] f/u. Assessment & Plan (07/05/2020 4:21 PM ENVELOPE STUFFER): DKA (ketones 1.4, BG 242, urine glucose [...] insulin regimen is needed at this time. prosthodontist/educator have talked to Peter and family about [...] with diabetes mellitus due to underlying condition (CMS/HCC) 04/04/2022 EKG abnormality 04/04/2022 Choledocholithiasis 04/04/20 Abdominal pain 04/04/2022 Encounters Date Type Department Care Team Description 11/03/2024 1:15 PM CDT - 11/03/2024 2:44 PM CDT Emergency [facility] Emergency Department [address] [place] [address] Discharge Disposition: Left Against Medical Advice 10/27/2024 8:51 AM CDT - 10/27/2024 11:59 PM CDT [place] [address] Type 1 diabetes mellitus with hyperglycemia (HCC) Discharge Disposition: Discharge to home or self care 10/27/2024 8:45 AM CDT Lab [facility] Outpatient Lab at [address] [phone] Type I (juvenile type) diabetes mellitus with renal manifestations, 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) (Primary Dx) 10/27/2024 8:30 AM CDT Office Visit [facility] Diabetes Endocrine Care at [address] [address] Nay Alford NP Type 1 diabetes mellitus with hyperglycemia (HCC) (Primary Dx); Diabetic polyneuropathy associated with type 1 diabetes mellitus (HCC); Mixed hyperlipidemia; Tandem T slim Insulin pump in place; Nausea and vomiting, unspecified vomiting type; Cyclical vomiting 10/27/2024 Results Follow-Up [facility] Diabetes Endocrine Care at [address] [address] Nay Alford NP 10/17/2024 6:55 AM CDT - 10/18/2024 9:22 AM CDT Emergency [facility] Medical Care [address] [place] [address] Yonas Bradley MD Sinha, Chandni, MD Saeed, Salman, MD Nausea and vomiting, unspecified vomiting type (Primary Dx) Discharge Disposition: Left Against Medical Advice from Last 3 Months Medical History Medical History Date Comments Type 1 diabetes mellitus (HCC) D iabetes type 1; Comments: [facility] 11/23/2015 - Hx Other Medical high lipids; Co mments: [facility] 11/23/2015 - Hx Other Medical pancreatitis; C omments: [facility] 11/23/2015 - Pancreatitis Asthma Hypertension Hyperlipidemia Diarrhea of presumed infectious origin 12/16/2018 Abdominal pain Choledocholithiasis Diabetic ketoacidosis associ ated with type 1 diabetes mellitus (HCC) 02/17/2018 Diabetic ketoacidosis withou t coma associated with diabetes mellitus due to underlying condition (HCC) Diarrhea 10/25/2020 EKG abnormality Elevated blood pressure [...] Never Smokeless Tobacco: Never Tobacco Cessation:Counseling Given: Not Answered Alcohol Use Standard Drinks/Week Comments No 0 (1 standard drink = 0.6 oz pur e alcohol) AUDIT-C Answer Date Recorded Q1: How often do you have a drink containing alcohol? Never 10/17/2024 Q2: How many drinks containi ng alcohol do you have on a typical day when you are drinking? Patient does not drink Q3: How often do you have si x or more drinks on one occasion? Never 10/17/2024 PHQ-2 Answer Date Recorded PHQ-2 Score 0 03/13/2019 Personal Safety Answer Date Recorded Have you ever been in or are you currently in a harmful physical or emotional relationship or is someone making you feel afraid or unsafe? Denies 10/17/2024 Sex and Gender Information Value Date Recorded Sex Assigned at Not on file Legal Sex Male 4:12 AM ENVELOPE STUFFER Gender Identity Not on file Sexual Orientation Not on file Obstetrics History Last Filed Vital Signs Vital Sign Reading Time Taken Comments Blood Pressure 131/87 11/03/2024 1:22 PM CDT Pulse 81 11/03/2024 1:22 PM CDT Temperature 36.7 C (98.1 F) 11/03/2024 1:22 PM CDT Respiratory Rate 18 11/03/2024 1:22 PM CDT Oxygen Saturation 100% 11/03/2024 1:22 PM CDT Inhaled Oxygen Concentration - - Weight 76.2 kg (168 lb) 11/03/2024 1:22 PM CDT Height 170.2 cm (5' 7 ) 11/03/2024 1:22 PM CDT Body Mass Index 26.31 11/03/2024 1:22 PM CDT Plan of Treatment Health Maintenance Due Date Last Done Comments Hepatitis C Screening 1999 Pneumococcal vaccine <65 (1 of 1 - PPSV23) 2005 10/24/2000 Dilated Eye Exam 2009 Regular Well Visit/Exam 18-64 2017 Depression Screening 10/17/2019 10/16/2018 DTaP/Tdap/Td Vaccine (7 - Td or Tdap) 04/21/2020 04/21/2010, 09/08/2003, 08/18/2001, Additional history exists Foot Exam 02/11/2025 02/12/2024, 04/21, 02/05/2023, Additional history exists Hemoglobin A1C 03/03/2025 09/03/2024, 01/20, 05/07/2023, Additional history exists Influenza Vaccine (Season Ended) 2025 05/09/2016, 05/27/2014, 04/17/2012, Additional history exists Albumin Creatinine Ratio, Urine 10/27/2025 10/27/2024, 02/12/2024, 12/28/2017 Lipid Panel 10/27/2025 10/27/2024, 01/20, 07/10/2022, Additional history exists TSH Level 10/27/2025 10/27/2024, 01/20, 04/17/2019, Additional history exists eGFR 10/27/2025 11/03/2024, 0 02/2025, 10/18/2024, Additional history exists Hepatitis B Screening Completed 03/13/2000 , 03/13/2000, 1999, Additional history exists Varicella Vaccines Completed 04/21/2010, 06/01/2002 HPV Vaccines Completed 05/09/2016, 08/2014, 05/27/2014 Procedures Procedure Name Priority Date/Time Associated Diagnosis Comments BLOOD GAS, VENOUS STAT 11/03/2024 1:3 3 PM CDT SEPSIS LACTATE WITH REFLEX STAT 11/03/2024 1:33 PM CDT EGFR STAT 11/03/2024 1:31 PM CDT DIFFERENTIAL AUTO STAT 11/03/2024 1:3 1 PM CDT LIPASE STAT 11/03/2024 1:31 PM CDT COMPREHENSIVE METABOLIC PANEL STAT 11/03/2024 1:31 PM CDT CBC WITH AUTO DIFFERENTIAL STAT 11/03/2024 1:31 PM CDT EGFR Routine 10/27/2024 8:51 AM CDT Type 1 diabetes mellitus with hyperglycemia (HCC) COMPREHENSIVE METABOLIC PANEL Routine 10/27/2024 8:51 AM CDT Type 1 diabetes mellitus with hyperglycemia (HCC) THYROID FUNCTION CASCADE Routine 10/27/2024 8:51 AM CDT Type 1 diabetes mellitus with hyperglycemia (HCC) LIPID PANEL Routine 10/27/2024 8:51 AM CDT Type 1 diabetes mellitus with hyperglycemia (HCC) ALBUMIN CREATININE RATIO, URINE Routine 10/27/2024 8:51 AM CDT Type 1 diabetes mellitus with hyperglycemia (HCC) POCT GLUCOSE Routine 10/27/2024 8:26 AM CDT Type 1 diabetes mellitus with hyperglycemia (HCC) POCT GLUCOSE DEVICE Routine 10/18/2024 7 :38 AM CDT EGFR Routine 10/18/2024 5:18 AM CDT DIFFERENTIAL AUTO Routine 10/18/2024 5:1 8 AM CDT CBC WITH AUTO DIFFERENTIAL Routine 10/18/2024 5:18 AM CDT PHOSPHORUS Routine 10/18/2024 5:18 AM CDT MAGNESIUM Routine 10/18/2024 5:18 AM CDT BASIC METABOLIC PANEL Routine 10/18/2024 5:18 AM CDT POCT GLUCOSE DEVICE Routine 10/18/2024 2 :33 AM CDT POCT GLUCOSE DEVICE Routine 10/18/2024 1 2:08 AM CDT POCT GLUCOSE DEVICE Routine 10/17/2024 4 :25 PM CDT POCT GLUCOSE DEVICE Routine 10/17/2024 1 :34 PM CDT EGFR STAT 10/17/2024 9:42 AM CDT BASIC METABOLIC PANEL STAT 10/17/2024 9:[address] ABDOMEN PELVIS W CONTRAST ED 10/17/2024 8:28 AM CDT POCT GLUCOSE DEVICE Routine 10/17/2024 7 :29 AM CDT BLOOD GAS, VENOUS STAT 10/17/2024 7:1 9 AM CDT EGFR STAT 10/17/2024 7:15 AM CDT URINALYSIS, MICROSCOPIC ONLY STAT 10/17/2024 7:15 AM CDT DIFFERENTIAL AUTO STAT 10/17/2024 7:1 5 AM CDT DRUGS OF ABUSE SCREEN, URINE WITHOUT CONFIRMATION STAT 10/17/2024 7:15 AM CDT LIPASE STAT 10/17/2024 7:15 AM CDT COMPREHENSIVE METABOLIC PANEL STAT 10/17/2024 7:15 AM CDT CBC WITH AUTO DIFFERENTIAL STAT 10/17/2024 7:15 AM CDT URINALYSIS AND REFLEX TO MICROSCOPIC AND CULTURE STAT 10/17/2024 7:15 AM CDT HEMOGLOBIN A1C Routine 09/03/2024 DIABETES FOOT EXAM Routine 04/08/2018 from Last 3 Months or Most Recently Relevant to Health Maintenance Results * Sepsis Lactate w/ Reflex (11/03/2024 1:33 PM CDT) Sepsis Lactate 1.2 0.7 - 2.0 mmol/L Blood 11/03/2024 1:33 PM CDT 11/03/2024 1:36 PM CDT Chato Daniels MD LAB BLOOD ORDERABLES Final Res ult ALYSSA [facility] ([place]) 1 [facility] Department [place] [address] * Blood gas, venous (11/03/2024 1:33 PM CDT) pH, Venous 7.37 7.32 - 7.43 PCO2, Venous 47 40 - 50 mmHg [facility] ([place]) PO2, Venous 33 mmHg [facility] ([place]) HCO3 Venous, Calculated 26 20 - 30 mmol/L [facility] ([place]) BE, venous 1 mmol/L [facility] ([place]) Comment: Interpretive Data No Reference Range Established Current Interpretive Data was last revised on 2017. Blood 11/03/2024 1:33 PM CDT 11/03/2024 1:36 PM CDT us Chato Daniels MD LAB BLOOD ORDERABLES Final Res ult Performing Organization Address City/State/[facility] Co de Phone Number ALYSSA [facility] ([place]) 1 [facility] Department [place] [address] * eGFR (11/03/2024 1:31 PM CDT) eGFR >90 >=60 mL/min/1. 73 [...] of Race in Diagnosing Kidney Disease, JASN 2021). The CKD-EPI equation should not be used for patients with unstable renal function and has not been validated in children and those over 70. Current interpretive data was last reviewed 2021. Blood 11/03/2024 1:31 PM CDT 11/03/2024 1:37 PM CDT us Chato Daniels MD LAB BLOOD ORDERABLES Final Res ult Performing Organization Address City/[facility] Co de Phone Number ALYSSA [facility] ([place]) 1 [facility] Department [place] [address] * Differential, auto (11/03/2024 1:31 PM CDT) Neutrophil abs 2.63 1.50 - 6.50 K/cumm Imm gran abs 0.01 0.00 - 0.10 K/cumm [facility] ([place]) Lymphocyte abs 2.35 0.80 - 3.30 K/cumm [facility] ([place]) Monocyte abs 0.57 0.20 - 0.80 K/cumm [facility] ([place]) Eosinophil abs 0.02 0.00 - 0.50 K/cumm [facility] ([place]) Basophil abs 0.04 0.00 - 0.10 K/cumm [facility] ([place]) Neutrophil pct 46.8 % [facility] ([place]) Comment: Interpretive Data Percent cell count reference ranges are not reported, since discordance with absolute values may lead to misinterpretation of CBC data. Current Interpretive Data was last revised on 2017. Imm gran pct 0.2 % [facility] ([place]) Comment: Interpretive Data Percent cell count reference ranges are not reported, since discordance with absolute values may lead to misinterpretation of CBC data. Current Interpretive Data was last revised on 2017. Lymphocyte pct 41.8 % [facility] ([place]) Comment: Interpretive Data Percent cell count reference ranges are not reported, since discordance with absolute values may lead to misinterpretation of CBC data. Current Interpretive Data was last revised on 2017. Monocyte pct 10.1 % [facility] ([place]) Comment: Interpretive Data Percent cell count reference ranges are not reported, since discordance with absolute values may lead to misinterpretation of CBC data. Current Interpretive Data was last revised on 2017. Eosinophil pct 0.4 % [facility] ([place]) Comment: Interpretive Data Percent cell count reference ranges are not reported, since discordance with absolute values may lead to misinterpretation of CBC data. Current Interpretive Data was last revised on 2017. Basophil pct 0.7 % [facility] ([place]) Comment: Interpretive Data Percent cell count reference ranges are not reported, since discordance with absolute values may lead to misinterpretation of CBC data. Current Interpretive Data was last revised on 2017. Blood 11/03/2024 1:31 PM CDT 11/03/2024 1:37 PM CDT Chato Daniels MD LAB BLOOD ORDERABLES Final Res ult [facility] ([place]) 1 [facility] Department [place] [address] * CBC with auto differential (11/03/2024 1:31 PM CDT) WBC 5.62 3.80 - 9.90 K/cumm Hgb 13.9 13.0 - 17.5 g/dL [facility] ([place]) Hct 42.7 38.9 - 50.3 % [facility] ([place]) Plt 337 150 - 400 K/cumm [facility] ([place]) MPV 9.6 9.1 - 12.3 fL [facility] ([place]) RBC 4.86 4.30 - 5.80 M/cumm [facility] ([place]) MCV 87.9 81.3 - 96.4 fL [facility] ([place]) MCH 28.6 27.1 - 33.3 pg [facility] ([place]) MCHC 32.6 32.3 - 35.7 g/dL [facility] ([place]) RDW CV 13.7 11.1 - 14.9 % [facility] ([place]) RDW SD 44.2 35.7 - 48.1 fL [facility] ([place]) NRBC abs 0.00 0.00 - 0.01 K/cumm [facility] ([place]) Blood Venous blood specimen / Unknown 11/03/2024 1:31 PM CDT 11/03/2024 1:37 PM CDT Chato Daniels MD LAB BLOOD ORDERABLES Final Res ult [facility] ([place]) 1 [facility] Department [place] [address] * Lipase (11/03/2024 1:31 PM CDT) Lipase 11 10 - 99 Units/L Blood Venous blood specimen / Unknown 11/03/2024 1:31 PM CDT 11/03/2024 1:37 PM CDT us Chato Dnaiels MD LAB BLOOD ORDERABLES Final Res ult [facility] ([place]) 1 [facility] Department [place] [address] * Comprehensive metabolic panel (11/03/2024 1:31 PM CDT) Sodium 140 135 - 145 mmol/L Potassium, pl 4.6 3.3 - 4.9 mmol/L [facility] ([place]) Chloride 103 97 - 110 mmol/L [facility] ([place]) CO2 23 22 - 32 mmol/L [facility] ([place]) Anion gap 15 2 - 15 mmol/L [facility] ([place]) BUN 19 6 - 25 mg/dL [facility] ([place]) Creatinine 0.95 0.80 - 1.30 mg/dL [facility] ([place]) Glucose 153 70 - 199 mg/dL [facility] ([place]) Comment: Interpretive Data Fasting glucose >/= 126 mg/dl is diagnostic for diabetes. Fasting is defined as no caloric intake for at least 8 hours. Fasting glucose between 100 mg/dl to 125 mg/dl is diagnostic of prediabetes. In a patient with classic symptoms of hyperglycemia or hyperglycemic crisis, a random glucose >/= 200 mg/dl is diagnostic for diabetes. In the absence of unequivocal hyperglycemia, results should be confirmed by repeat testing. The classification and Diagnosis of Diabetes Diabetes Care 2021; 46: S19-S40. Current interpretive data was last revised 2022. Calcium 9.9 8.5 - 10.3 mg/dL [facility] ([place]) Bilirubin, total 0.5 0.1 - 1.2 mg/dL [facility] ([place]) Protein, pl 7.7 6.5 - 8.5 g/dL [facility] ([place]) Albumin 4.6 3.5 - 5.0 g/dL [facility] ([place]) Alk phos 79 40 - 130 Units/L [facility] ([place]) ALT 16 7 - 55 Units/L [facility] ([place]) AST 25 10 - 50 Units/L [facility] ([place]) Blood 11/03/2024 1:31 PM CDT 11/03/2024 1:37 PM CDT us Chato Daniels MD LAB BLOOD ORDERABLES Final Res ult ALYSSA [facility] ([place]) 1 [facility] [place] [address] * eGFR (10/27/2024 8:51 AM CDT) eGFR >90 >=60 mL/min/1. 73 m2 [...] interpretive data was last reviewed 2021. Blood 10/27/2024 8:51 AM CDT 10/27/2024 2:58 PM CDT us Nay Alford NP LAB BLOOD ORDERABLES Final Resu lt ALYSSA [address] [facility] [place] [address] * Thyroid Function [place] (10/27/2024 8:51 AM CDT) TSH 1.51 0.30 - 4.20 mcIUnit/mL Blood 10/27/2024 8:51 AM CDT 10/27/2024 2:50 PM CDT Nay Alford MACHINE SPREADER LAB BLOOD ORDERABLES Final Resu lt Performing Organization Address [facility] Co de Phone Number ALYSSA [address] [address] [place] [address] * (ABNORMAL) Albumin Creatinine Ratio, Urine (10/27/2024 8:51 AM CDT) Albumin Ur 96.3 mg/L Comment: Interpretive Data No reference range established. Current interpretive data was last revised 2018. Creatinine Ur 124.7 mg/dL [facility] Comment: Interpretive Data No reference range established. Current interpretive data was last revised 2018. Albumin Creatinine Ratio, Ur 77(H) 1 - 29 mg/g [facility] Urine 10/27/2024 8:51 AM CDT 10/27/2024 2:50 PM CDT Nay Alford MACHINE SPREADER LAB URINE ORDERABLES Final Resu lt Performing Organization Address City/[facility]/ZIP Co de Phone Number ALYSSA AHMADI [address] [facility] [place] [address] * (ABNORMAL) Lipid panel (10/27/2024 8:51 AM CDT) Pathologist [facility] Cholesterol 149 30 - 199 mg/dL Comment: Interpretive Data [...] Data was last revised on 2018. Triglycerides 77 <=149 mg/dL ALYSSA Comment: Interpretive Data Ages [...] on 2018. HDL 36(L) >=40 mg/dL ALYSSA Comment: Interpretive Data Ages < [...] was last revised on 2018. LDL, calculated 98 <=129 mg/dL ALYSSA Comment: Interpretive Data Ages < or = 19 years Acceptable: <110 mg/dL Borderline high: 110-129 mg/dL High: >or= 130 mg/dL Ages > or = 20 years Optimal: <100 mg/dL Near optimal: 100-129 mg/dL Borderline high: 130-159 mg/dL High: >160 mg/dL Calculated using the Pulido LDL-C estimating equation. This equation was implemented on 2024. Prior to this date LDL-C was estimated using the Friedewald equation. Literature References: 1. Expert Panel on Integrated Guidelines for Cardiovascular Health and Risk Reduction in Children and Adolescents. Pediatrics 2011;128:S213 2. NCEP Expert Panel. Circulation 2004;110:227 3. Ashok M et al. WENDI Cardiol. 2020 November 19;5(5):540-548. doi: 10.1001/jamacardio.2020.0013 Current Interpretive Data was last revised on 2024. Non-HDL Cholesterol 113 mg/dL [facility] Comment: Interpretive Data Ages < or = [...] was last revised on 2018. Chol/HDL ratio 4 [facility] Blood 10/27/2024 8:51 AM CDT 10/27/2024 2:50 PM CDT Narrative [facility] - 10/27/2024 3:21 PM CDT These lab test should be done fasting. This means do not eat or drink for at least 12 hours prior to getting your blood drawn. Has the patient been fasting for 8 hours or more?->Yes us Nay Alford NP LAB BLOOD ORDERABLES Final Resu lt ALYSSA [address] Department [place] [address] * (ABNORMAL) Comprehensive metabolic panel (10/27/2024 8:51 AM CDT) Sodium 140 135 - 145 mmol/L Potassium, pl 4.7 3.3 - 4.9 mmol/L [facility] Chloride 101 97 - 110 mmol/L [facility] CO2 30 22 - 32 mmol/L [facility] Anion gap 9 2 - 15 mmol/L [facility] BUN 16 6 - 25 mg/dL [facility] Creatinine 1.01 0.80 - 1.30 mg/dL [facility] Glucose 232(H) 70 - 199 mg/dL [facility] Comment: Interpretive Data Fasting glucose >/= 126 mg/dl is diagnostic for diabetes. Fasting is defined as no caloric intake for at least 8 hours. Fasting glucose between 100 mg/dl to 125 mg/dl is diagnostic of prediabetes. In a patient with classic symptoms of hyperglycemia or hyperglycemic crisis, a random glucose >/= 200 mg/dl is diagnostic for diabetes. In the absence of unequivocal hyperglycemia, results should be confirmed by repeat testing. The classification and Diagnosis of Diabetes Diabetes Care 2021; 46: S19-S40. Current interpretive data was last revised 2022. Calcium 9.4 8.5 - 10.3 mg/dL [facility] Bilirubin, total 0.2 0.1 - 1.2 mg/dL [facility] Protein, pl 7.1 6.5 - 8.5 g/dL [facility] Albumin 4.4 3.5 - 5.0 g/dL [facility] Alk phos 69 40 - 130 Units/L [facility] ALT 13 7 - 55 Units/L [facility] AST 25 10 - 50 Units/L [facility] Blood 10/27/2024 8:51 AM CDT 10/27/2024 2:50 PM CDT Nay Alford NP LAB BLOOD ORDERABLES Final Resu lt [facility] [address] Department of Laboratories [place], [place] [id number] * POCT glucose (10/27/2024 8:26 AM CDT) Glucose Blood, POC 232 mg/dL Blood 10/27/2024 8:26 AM CDT Nay Alford NP POINT OF CARE TEST ORDERABLES F inal Result * POCT glucose (10/18/2024 7:38 AM CDT) Glucose, POC 108 70 - 199 mg/dL Blood 10/18/2024 7:38 AM CDT 10/18/2024 7:38 AM CDT Candido Romero MD LAB POCT ORDERABLES - DEVICE Fin al Result Performing Organization Address City/[facility]/ZIP Co de Phone Number ALYSSA CACERES ([place]) 1 [facility] [place] [address] * eGFR (10/18/2024 5:18 AM CDT) eGFR >90 >=60 mL/min/1. 73 m2 [...] interpretive data was last reviewed 2021. Blood 10/18/2024 5:18 AM CDT 10/18/2024 5:49 AM CDT us Aspen Hernandez MD LAB BLOOD ORDERABLES Final Resu lt ALYSSA CACERES ([place]) 1 [facility] Department [place] [address] * (ABNORMAL) Differential, auto (10/18/2024 5:18 AM CDT) Neutrophil abs 6.3 1.5 - 6.5 K/cumm Imm gran abs 0.0 0.0 - 0.1 K/cumm ALYSSA NICKI ([place]) Lymphocyte abs 3.8(H) 0.8 - 3.3 K/cumm [facility] ([place]) Monocyte abs 1.3(H) 0.2 - 0.8 K/cumm [facility] ([place]) Eosinophil abs 0.1 0.0 - 0.5 K/cumm [facility] ([place]) Basophil abs 0.1 0.0 - 0.1 K/cumm [facility] ([place]) Neutrophil pct 54.7 % [facility] ([place]) Comment: Interpretive Data Percent cell count reference ranges are not reported, since discordance with absolute values may lead to misinterpretation of CBC data. Current Interpretive Data was last revised on 2017. Imm gran pct 0.3 % [facility] ([place]) Comment: Interpretive Data Percent cell count reference ranges are not reported, since discordance with absolute values may lead to misinterpretation of CBC data. Current Interpretive Data was last revised on 2017. Lymphocyte pct 32.7 % [facility] ([place]) Comment: Interpretive Data Percent cell count reference ranges are not reported, since discordance with absolute values may lead to misinterpretation of CBC data. Current Interpretive Data was last revised on 2017. Monocyte pct 11.5 % [facility] ([place]) Comment: Interpretive Data Percent cell count reference ranges are not reported, since discordance with absolute values may lead to misinterpretation of CBC data. Current Interpretive Data was last revised on 2017. Eosinophil pct 0.4 % [facility] ([place]) Comment: Interpretive Data Percent cell count reference ranges are not reported, since discordance with absolute values may lead to misinterpretation of CBC data. Current Interpretive Data was last revised on 2017. Basophil pct 0.4 % [facility] ([place]) Comment: Interpretive Data Percent cell count reference ranges are not reported, since discordance with absolute values may lead to misinterpretation of CBC data. Current Interpretive Data was last revised on 2017. Blood 10/18/2024 5:18 AM CDT 10/18/2024 5:49 AM CDT us Aspen Hernandez MD LAB BLOOD ORDERABLES Final Resu lt [facility] ([place]) 1 [facility] Department [place] [address] * (ABNORMAL) CBC with auto differential (10/18/2024 5:18 AM CDT) WBC 11.5(H) 3.8 - 9.9 K/cumm Hgb 11.4(L) 13.0 - 17.5 g/dL [facility] ([place]) Hct 34.8(L) 38.9 - 50.3 % [facility] ([place]) Plt 251 150 - 400 K/cumm [facility] ([place]) MPV 9.8 9.1 - 12.3 fL [facility] ([place]) RBC 3.99(L) 4.30 - 5.80 M/cumm [facility] ([place]) MCV 87.2 81.3 - 96.4 fL [facility] ([place]) MCH 28.6 27.1 - 33.3 pg [facility] ([place]) MCHC 32.8 32.3 - 35.7 g/dL [facility] ([place]) RDW CV 13.6 11.1 - 14.9 % [facility] ([place]) RDW SD 43.8 35.7 - 48.1 fL [facility] ([place]) NRBC abs 0.00 0.00 - 0.01 K/cumm [facility] ([place]) Blood 10/18/2024 5:18 AM CDT 10/18/2024 5:49 AM CDT us Aspen Hernandez MD LAB BLOOD ORDERABLES Final Resu lt ALYSSA CACERES ([place]) 1 [facility] Department [place] [address] * Phosphorus (10/18/2024 5:18 AM CDT) Pathologist [facility] Phosphorus, pl 3.0 2.3 - 4.5 mg/dL Blood 10/18/2024 5:18 AM CDT 10/18/2024 5:49 AM CDT Aspen Hernandez MD LAB BLOOD ORDERABLES Final Resu lt ALYSSA ACCERES ([place]) 1 [facility] [address] * Magnesium (10/18/2024 5:18 AM CDT) Magnesium 2.0 1.4 - 2.5 mg/dL Blood 10/18/2024 5:18 AM CDT 10/18/2024 5:49 AM CDT Aspen Hernandez MD LAB BLOOD ORDERABLES Final Resu lt Performing Organization Address [facility] de Phone Number ALYSSA CACERES ([place]) 1 [facility] [place] [address] * (ABNORMAL) Basic metabolic panel (10/18/2024 5:18 AM CDT) Sodium 139 135 - 145 mmol/L Potassium, pl 3.4 3.3 - 4.9 mmol/L [facility] ([place]) Chloride 105 97 - 110 mmol/L [facility] ([place]) CO2 22 22 - 32 mmol/L [facility] ([place]) Anion gap 12 2 - 15 mmol/L [facility] ([place]) BUN 9 6 - 25 mg/dL [facility] ([place]) Creatinine 0.88 0.80 - 1.30 mg/dL [facility] ([place]) Glucose 115 70 - 199 mg/dL [facility] ([place]) Comment: Interpretive Data Fasting glucose >/= 126 mg/dl is diagnostic for diabetes. Fasting is defined as no caloric intake for at least 8 hours. Fasting glucose between 100 mg/dl to 125 mg/dl is diagnostic of prediabetes. In a patient with classic symptoms of hyperglycemia or hyperglycemic crisis, a random glucose >/= 200 mg/dl is diagnostic for diabetes. In the absence of unequivocal hyperglycemia, results should be confirmed by repeat testing. The classification and Diagnosis of Diabetes Diabetes Care 2021; 46: S19-S40. Current interpretive data was last revised 2022. Calcium 8.1(L) 8.5 - 10.3 mg/dL ALYSSA CACERES ([place]) Blood 10/18/2024 5:18 AM CDT 10/18/2024 5:49 AM CDT Apsen Hernandez MD LAB BLOOD ORDERABLES Final Resu lt Performing Organization Address City/[facility]/ZIP Co de Phone Number ALYSSA CACERES ([place]) 1 [facility] [place] [address] * POCT glucose (10/18/2024 2:33 AM CDT) Glucose, POC 103 70 - 199 mg/dL Blood 10/18/2024 2:33 AM CDT 10/18/2024 2:33 AM CDT Aspen Hernandez MD LAB POCT ORDERABLES - DEVICE Fi nal Result Performing Organization Address [facility] Co de Phone Number ALYSSA CACERES ([place]) 1 [facility] [place] [address] * POCT glucose (10/18/2024 12:08 AM CDT) Glucose, POC 114 70 - 199 mg/dL Blood 10/18/2024 12:0 8 AM CDT 10/18/2024 12:08 AM CDT Aspen Hernandez MD LAB POCT ORDERABLES - DEVICE Fi nal Result Performing Organization Address City/[facility]/ZIP Co de Phone Number ALYSSA CACERES ([place]) 1 [facility] [place] [address] * POCT glucose (10/17/2024 4:25 PM CDT) Glucose, POC 131 70 - 199 mg/dL Blood 10/17/2024 4:25 PM CDT 10/17/2024 4:25 PM CDT us Aspen Hernandez MD LAB POCT ORDERABLES - DEVICE Fi nal Result ALYSSA CACERES ([place]) 1 [facility] [place] [address] * POCT glucose (10/17/2024 1:34 PM CDT) Glucose, POC 128 70 - 199 mg/dL Blood 10/17/2024 1:34 PM CDT 10/17/2024 1:34 PM CDT Aspen Hernandez MD LAB POCT ORDERABLES - DEVICE Fi nal Result Performing Organization Address [facility] Co de Phone Number ALYSSA CACERES ([place]) 1 [facility] [place] [address] * eGFR (10/17/2024 9:42 AM CDT) eGFR >90 >=60 mL/min/1. 73 m2 [...] interpretive data was last reviewed 2021. Blood 10/17/2024 9:42 AM CDT 10/17/2024 9:44 AM CDT Yonas Bradley MD LAB BLOOD ORDERABLES Final R esult ALYSSA CACERES ([place]) 1 [facility] Department [place] [address] * (ABNORMAL) Basic metabolic panel (10/17/2024 9:42 AM CDT) Sodium 138 135 - 145 mmol/L Potassium, pl 3.6 3.3 - 4.9 mmol/L [facility] ([place]) Chloride 105 97 - 110 mmol/L [facility] ([place]) CO2 23 22 - 32 mmol/L [facility] ([place]) Anion gap 11 2 - 15 mmol/L [facility]) BUN 9 6 - 25 mg/dL [facility] ([place]) Creatinine 0.76(L) 0.80 - 1.30 mg/dL [facility] ([place]) Glucose 121 70 - 199 mg/dL [facility] ([place]) Comment: Interpretive Data Fasting glucose >/= 126 mg/dl is diagnostic for diabetes. Fasting is defined as no caloric intake for at least 8 hours. Fasting glucose between 100 mg/dl to 125 mg/dl is diagnostic of prediabetes. In a patient with classic symptoms of hyperglycemia or hyperglycemic crisis, a random glucose >/= 200 mg/dl is diagnostic for diabetes. In the absence of unequivocal hyperglycemia, results should be confirmed by repeat testing. The classification and Diagnosis of Diabetes Diabetes Care 202; 46: S19-S40. Current interpretive data was last revised 2022. Calcium 7.8(L) 8.5 - 10.3 mg/dL [facility] ([place]) Blood 10/17/2024 9:42 AM CDT 10/17/2024 9:44 AM CDT us Yonas Bradley MD LAB BLOOD ORDERABLES Final R esult ALYSSA CACERES ([place]) 1 [facility] [place] [address] * CT Abdomen Pelvis W Contrast (10/17/2024 8:28 AM CDT) Anatomical Region Laterality Modality Body N/A Computed Tomogra phy 10/17/2024 9:05 AM CDT Narrative 10/17/2024 9:18 AM CDT EXAM DESCRIPTION: CT ABDOMEN PELVIS W CONTRAST REASON FOR STUDY: Abdominal pain, acute, nonlocalized Pt has nausea, vomiting. 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 TECHNIQUE: CT scan of the abdomen and pelvis performed with intravenous and without oral contrast using helical scanning technique with dynamic intravenous contrast injection. Reconstructed coronal and sagittal MPR images reviewed. All images stored on PACS. Automated exposure control was used as a dose optimization technique for this examination. CONTRAST TYPE/DOSE: 75mL of IOVERSOL 350 MG IODINE/ML INTRAVENOUS SYRINGE injected via intravenous COMPARISON: CT dated April 18 FINDINGS: LOWER CHEST: No significant pulmonary abnormalities. No effusion. LIVER: Normal size. No identified cystic or solid masses. GALLBLADDER: Surgically absent. BILE DUCTS: No intrahepatic or extrahepatic ductal dilatation. SPLEEN: Normal size. No focal lesions. PANCREAS: No identified cystic or solid masses. No significant calcifications. No adjacent inflammation or peripancreatic fluid collections. Pancreatic duct not dilated. ADRENALS: Normal. KIDNEYS/URINARY TRACT: No identified significant cystic or solid masses. No visualized stones. No hydronephrosis or hydroureter. Symmetric enhancement. Urinary bladder is unremarkable. GI: No dilated bowel loops. No obvious wall thickening. The appendix appears mildly prominent measuring a maximum of 0.8 cm. This is however stable since 2020 without associated wall thickening mucosal hyperenhancement or surrounding inflammatory change. This is of doubtful clinical significance. No significant diverticular disease. PERITONEUM: No ascites or free air. RETROPERITONEUM: No mass or adenopathy. REPRODUCTIVE: No significant abnormality. VASCULATURE: No abdominal aortic aneurysm. MUSCULOSKELETAL: No significant abnormality. OTHER: No other abnormality. IMPRESSION: No acute findings identified to suggest etiology of the patient's symptoms. THIS IS AN ELECTRONICALLY VERIFIED FINAL REPORT 10/17/2024 9:18 AM - Electronically signed by Bam Choudhary M.D. JA: OLMAN Report ID: [id number] Reading Location: [id number] Procedure Note Bam Choudhary MD - 10/17/2024 EXAM DESCRIPTION: CT ABDOMEN PELVIS W CONTRAST REASON FOR STUDY: Abdominal pain, acute, nonlocalized Pt has nausea, vomiting. 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 TECHNIQUE: CT scan of the abdomen and pelvis performed with intravenousand without oral contrast using helical scanning technique with dynamic intravenous contrast injection. Reconstructed coronal and sagittal MPRimages reviewed. All images stored on PACS. Automated exposure control was usedas a dose optimization technique for this examination. CONTRAST TYPE/DOSE: 75mL of IOVERSOL 350 MG IODINE/ML INTRAVENOUSSYRINGE injected via intravenous COMPARISON: CT dated April 18 FINDINGS: LOWER CHEST: No significant pulmonary abnormalities. No effusion. LIVER: Normal size. No identified cystic or solid masses. GALLBLADDER: Surgically absent. BILE DUCTS: No intrahepatic or extrahepatic ductal dilatation. SPLEEN: Normal size. No focal lesions. PANCREAS: No identified cystic or solid masses. No significant calcifications. No adjacent inflammation or peripancreatic fluidcollections. Pancreatic duct not dilated. ADRENALS: Normal. KIDNEYS/URINARY TRACT: No identified significant cystic or solid masses.No visualized stones. No hydronephrosis or hydroureter. Symmetricenhancement. Urinary bladder is unremarkable. GI: No dilated bowel loops. No obvious wall thickening. The appendix appears mildly prominent measuring a maximum of 0.8 cm. This is however stable since 2020 without associated wall thickening mucosalhyperenhancement or surrounding inflammatory change. This is of doubtful clinical significance. No significant diverticular disease. PERITONEUM: No ascites or free air. RETROPERITONEUM: No mass or adenopathy. REPRODUCTIVE: No significant abnormality. VASCULATURE: No abdominal aortic aneurysm. MUSCULOSKELETAL: No significant abnormality. OTHER: No other abnormality. IMPRESSION: No acute findings identified to suggest etiology of the patient'ssymptoms. THIS IS AN ELECTRONICALLY VERIFIED FINAL REPORT 10/17/2024 9:18 AM - Electronically signed by Bam Choudhary M.D. JA: OLMAN Report ID: [id number] Reading Location: [place] [id number] us Yonas Bradley MD IM CT PROCEDURES Final Resu lt * POCT glucose (10/17/2024 7:29 AM CDT) Glucose, POC 177 70 - 199 mg/dL Blood 10/17/2024 7:29 AM CDT 10/17/2024 7:29 AM CDT Yonas Bradley MD LAB POCT ORDERABLES - DEVICE Final Result Performing Organization Address [facility] de Phone Number ALYSSA CACERES ([place]) 1 [facility] [place] [address] * (ABNORMAL) Blood gas, venous (10/17/2024 7:19 AM CDT) [facility] pH, Venous 7.50(H) 7.32 - 7.43 PCO2, Venous 31(L) 40 - 50 mmHg [facility] ([place]) PO2, Venous 161 mmHg [facility] ([place]) HCO3 Venous, Calculated 24 20 - 30 mmol/L [facility] ([place]) BE, venous 2 mmol/L [facility] ([place]) Comment: Interpretive Data No Reference Range Established Current Interpretive Data was last revised on 2017. Blood 10/17/2024 7:19 AM CDT 10/17/2024 7:23 AM CDT Yonas Bradley MD LAB BLOOD ORDERABLES Final R esult Performing Organization Address [facility] de Phone Number ALYSSA CACERES ([place]) 1 [facility] [place] [address] * eGFR (10/17/2024 7:15 AM CDT) Pathologist [facility] eGFR >90 >=60 mL/min/1. 73 m2 Comment: [...] interpretive data was last reviewed 2021. Blood 10/17/2024 7:15 AM CDT 10/17/2024 7:23 AM CDT us Yonas Bradley MD LAB BLOOD ORDERABLES Final R esult [facility] ([place]) 1 [facility] Department [place] [address] * (ABNORMAL) Differential, auto (10/17/2024 7:15 AM CDT) Neutrophil abs 14.6(H) 1.5 - 6.5 K/cumm Imm gran abs 0.2(H) 0.0 - 0.1 K/cumm [facility] ([place]) Lymphocyte abs 3.0 0.8 - 3.3 K/cumm [facility] ([place]) Monocyte abs 1.7(H) 0.2 - 0.8 K/cumm [facility] ([place]) Eosinophil abs 0.0 0.0 - 0.5 K/cumm [facility] ([place]) Basophil abs 0.1 0.0 - 0.1 K/cumm [facility] ([place]) Neutrophil pct 74.9 % [facility] ([place]) Comment: Interpretive Data Percent cell count reference ranges are not reported, since discordance with absolute values may lead to misinterpretation of CBC data. Current Interpretive Data was last revised on 2017. Imm gran pct 0.8 % [facility] ([place]) Comment: Interpretive Data Percent cell count reference ranges are not reported, since discordance with absolute values may lead to misinterpretation of CBC data. Current Interpretive Data was last revised on 2017. Lymphocyte pct 15.4 % [facility] ([place]) Comment: Interpretive Data Percent cell count reference ranges are not reported, since discordance with absolute values may lead to misinterpretation of CBC data. Current Interpretive Data was last revised on 2017. Monocyte pct 8.5 % [facility] ([place]) Comment: Interpretive Data Percent cell count reference ranges are not reported, since discordance with absolute values may lead to misinterpretation of CBC data. Current Interpretive Data was last revised on 2017. Eosinophil pct 0.1 % [facility] ([place]) Comment: Interpretive Data Percent cell count reference ranges are not reported, since discordance with absolute values may lead to misinterpretation of CBC data. Current Interpretive Data was last revised on 2017. Basophil pct 0.3 % [facility] ([place]) Comment: Interpretive Data Percent cell count reference ranges are not reported, since discordance with absolute values may lead to misinterpretation of CBC data. Current Interpretive Data was last revised on 2017. Blood 10/17/2024 7:15 AM CDT 10/17/2024 7:23 AM CDT us Yonas Bradley MD LAB BLOOD ORDERABLES Final R esult ALYSSA CACERES ([place]) 1 [facility] Department [place] [address] * (ABNORMAL) Urinalysis reflex to microscopic and culture Urine (10/17/2024 7:15 AM CDT) Color, ur Yellow Yellow Clarity, ur Clear Clear ALYSSA Reid ([place]) Specific gravity, ur 1.018 1.003 - 1.030 ALYSSA CACERES ([place]) pH, urine 7.0 ALYSSA CACERES ([place]) Comment: Interpretive Data U rine pH is affected by diet, medications, systemic acid-base disturbances, and renal tubular function. pH may affect urinary stone formation. For example, urine pH below 6.0 may help reduce the tendency for calcium phosphate stones and pH greater than 6.0 may reduce the tendency for uric acid stone formation. Source: [facility] Current Interpretive Data was last revised on 2017 Protein, ur ql 2+(A) Negative [facility] ([place]) Glucose, ur ql 4+(A) Negative [facility] ([place]) Ketones, ur 2+(A) Negative [facility] ([place]) Bilirubin, ur Negative Negative [facility] ([place]) Blood, ur Trace(A) Negative [facility] ([place]) Urobilinogen, ur <2.0 <2.0 mg/dL [facility] ([place]) Nitrite, ur Negative Negative [facility] ([place]) Leukocyte esterase, ur Negative Negative [facility] ([place]) UA reflex comment Reflex to microscopic UA will be performed. [facility] ([place]) Urine 10/17/2024 7:15 AM CDT 10/17/2024 7:23 AM CDT us Yonas Bradley MD LAB MICROBIOLOGY - GENERAL O RDERABLES Final Result [facility] ([place]) 1 [facility] Department [place] [address] * (ABNORMAL) CBC with auto differential (10/17/2024 7:15 AM CDT) WBC 19.5(H) 3.8 - 9.9 K/cumm Hgb 13.2 13.0 - 17.5 g/dL [facility] ([place]) Hct 38.9 38.9 - 50.3 % [facility] ([place]) Plt 310 150 - 400 K/cumm [facility] ([place]) MPV 9.9 9.1 - 12.3 fL [facility] ([place]) RBC 4.56 4.30 - 5.80 M/cumm [facility] ([place]) MCV 85.3 81.3 - 96.4 fL [facility] ([place]) MCH 28.9 27.1 - 33.3 pg [facility] ([place]) MCHC 33.9 32.3 - 35.7 g/dL [facility] ([place]) RDW CV 13.7 11.1 - 14.9 % [facility] ([place]) RDW SD 43.2 35.7 - 48.1 fL ALYSSA CACERES ([place]) NRBC abs 0.00 0.00 - 0.01 K/cumm ALYSSA CACERES ([place]) Blood Venous blood specimen / Unknown 10/17/2024 7:15 AM CDT 10/17/2024 7:23 AM CDT Yonas Bradley MD LAB BLOOD ORDERABLES Final R esult ALYSSA NICKI ([place]) 1 [facility] Department [place] [address] * (ABNORMAL) Drugs of Abuse Screen, Urine without Confirmation (10/17/2024 7:15 AM CDT) [facility] Amphetamine, ur Not Detected CutOff 500ng/mL Comment: Interpretive Data - Amphetamines: Samples containing greater than 500 ng/mL d-methamphetamine or other cross-reacting amphetamine compounds are reported as positive. Amphetamine immunoassays are subject to significant false positive rates due to cross-reactivity of non-amphetamine drugs. Confirmatory testing required for definitive results. Current Interpretive Data was last reviewed 2023. Barbiturates, ur Not Detected CutOff 200ng/mL [facility] ([place]) Comment: Interpretive Data - Barbiturates: Samples containing greater than 200 ng/mL secobarbital or other cross-reacting barbiturate compounds are reported as positive. False positive and false negative results are possible. Confirmatory testing required for definitive results. Current Interpretive Data was last reviewed 2023. Benzodiazepines, ur Not Detected CutOff 100ng/mL [facility] ([place]) Comment: Interpretive Data - Benzodiazepines: Samples containing greater than 100 ng/mL nordiazepam or other cross-reacting compounds are reported as positive. False positive and false negative results are possible. Confirmatory testing required for definitive results. Current Interpretive Data was last reviewed 2023. Cannabinoids, ur Screen Positive, presumptive (A) CutOff 50 ng/mL [facility] ([place]) Comment: Interpretive Data - Cannabinoids: Samples containing greater than 50 ng/mL delta-9 THC -COOH or other cross- reacting compounds are reported as positive. False positive and false negative results are possible. Confirmatory testing required for definitive results. Current Interpretive Data was last reviewed 2023. Cocaine, ur Not Detected CutOff 150ng/mL [facility] ([place]) Comment: Interpretive Data - Cocaine: Samples containing greater than 150 ng/mL benzoylecgonine or other cross- reacting compounds are reported as positive. False positive and false negative results are possible. Confirmatory testing required for definitive results. Current Interpretive Data was last reviewed 2023. Fentanyl, Ur Not Detected CutOff 5 ng/mL [facility] ([place]) Comment: Interpretive Data - Fentanyl: Samples containing greater than 5 ng/mL norfentanyl, fentanyl, or other cross-reacting fentanyl compounds are reported as positive. False positive and false negative results are possible. Confirmatory testing required for definitive results. Current Interpretive Data was last reviewed 2023. Methadone, ur Not Detected CutOff 300ng/mL [facility] ([place]) Comment: Interpretive Data - Methadone: Samples containing greater than 300 ng/mL d,l-methadone or other cross-reacting compounds are reported as positive. False positive and false negative results are possible. Confirmatory testing required for definitive results. Current Interpretive Data was last reviewed 2023. Opiates, ur Not Detected CutOff 300ng/mL [facility] ([place]) Comment: Interpretive Data - Opiates: Samples containing greater than 300 ng/mL morphine or other cross-reacting compounds are reported as positive. False positive and false negative results are possible. Confirmatory testing required for definitive results. Current Interpretive Data was last reviewed 2023. Oxycodone, ur Not Detected CutOff 100ng/mL [facility] ([place]) Comment: Interpretive Data - Oxycodone: Samples containing greater than 100 ng/mL oxycodone or other cross-reacting compounds are reported as positive. False positive and false negative results are possible. Confirmatory testing required for definitive results. Current Interpretive Data was last reviewed 2023. Phencyclidine, ur Not Detected CutOff 25 ng/mL [facility] ([place]) Comment: Interpretive Data - Phencyclidine: Samples containing greater than 25 ng/mL phencyclidine or other cross-reacting compounds are reported as positive. False positive and false negative results are possible. Confirmatory testing required for definitive results. Current Interpretive Data was last reviewed 2023. Urine Creatinine 135 mg/dL ALBERTO FONSECA [facility] [place] Comment: Interpretive Data Urine Creatinine: < 10 mg/dL is extremely dilute = or > 10 but < 20 mg/dL is dilute = or > 20 mg/dL is normal Current Interpretive Data was last revised on 2017. Urine 10/17/2024 7:15 AM CDT 10/17/2024 7:23 AM CDT Narrative ALYSSA [facility] - 10/17/2024 7:48 AM CDT Drug of Abuse screening is performed by immunoassay for medical purposes only. This is not to be used for Pain Management purposes. Yonas Bradley MD LAB URINE ORDERABLES Final R esult Performing Organization Address City/[facility] Co de Phone Number ALYSSA [facility] 1 [facility] [place] [address] * (ABNORMAL) Urinalysis, microscopic only (10/17/2024 7:15 AM CDT) WBC, ur 0-5 0 - 5 /HPF RBC, ur 0-2 0 - 2 /HPF ALYSSA [facility] Mucous, ur Present(A) ALYSSA [facility] ([place]) Culture Reflex Comment Reflex conditions for urine culture (WBC >10) not met. ALYSSA [facility] Urine 10/17/2024 7:15 AM CDT 10/17/2024 7:23 AM CDT Yonas Bradley MD LAB URINE ORDERABLES Final R esult Performing Organization Address City/[facility]/ZIP Co de Phone Number [facility] 1 [facility] [place] [address] * Lipase (10/17/2024 7:15 AM CDT) Lipase 10 10 - 99 Units/L Blood 10/17/2024 7:15 AM CDT 10/17/2024 7:23 AM CDT us Yonas Bradley MD LAB BLOOD ORDERABLES Final R esult ALYSSA [facility] ([place]) 1 [facility] Department [place] [address] * (ABNORMAL) Comprehensive metabolic panel (10/17/2024 7:15 AM CDT) Sodium 139 135 - 145 mmol/L Potassium, pl 3.7 3.3 - 4.9 mmol/L [facility]) Chloride 100 97 - 110 mmol/L [facility]) CO2 22 22 - 32 mmol/L [facility] ([place]) Anion gap 17(H) 2 - 15 mmol/L [facility] ([place]) BUN 10 6 - 25 mg/dL [facility] ([place]) Creatinine 0.85 0.80 - 1.30 mg/dL [facility] ([place]) Glucose 179 70 - 199 mg/dL [facility] ([place]) Comment: Interpretive Data Fasting glucose >/= 126 mg/dl is diagnostic for diabetes. Fasting is defined as no caloric intake for at least 8 hours. Fasting glucose between 100 mg/dl to 125 mg/dl is diagnostic of prediabetes. In a patient with classic symptoms of hyperglycemia or hyperglycemic crisis, a random glucose >/= 200 mg/dl is diagnostic for diabetes. In the absence of unequivocal hyperglycemia, results should be confirmed by repeat testing. The classification and Diagnosis of Diabetes Diabetes Care 2021; 46: S19-S40. Current interpretive data was last revised 2022. Calcium 9.0 8.5 - 10.3 mg/dL [facility] ([place]) Bilirubin, total 0.8 0.1 - 1.2 mg/dL [facility] ([place]) Protein, pl 7.0 6.5 - 8.5 g/dL [facility] ([place]) Albumin 4.4 3.5 - 5.0 g/dL [facility] ([place]) Alk phos 74 40 - 130 Units/L [facility]) ALT 16 7 - 55 Units/L [facility]) AST 25 10 - 50 Units/L [facility] ([place]) Blood Venous blood specimen / Unknown 10/17/2024 7:15 AM CDT 10/17/2024 7:23 AM CDT Yonas Bradley MD LAB BLOOD ORDERABLES Final R esult ALYSSA [facility] ([place] 1 [facility] Department [place] [address] * (ABNORMAL) Hemoglobin A1c (09/03/2024) SCRIBED Hemoglobin A1c 9.0(A) 4.8 - 5.7 % EXTERNAL LAB Blood 09/03/2024 Historical Provider LAB BLOOD ORDERABLES Stephie l Result EXTERNAL LAB * DIABETES FOOT EXAM (04/08/2018) Diabetic Foot Exam Normal Historical Provider HEALTH MAINTENANCE Final Result from Last 3 Months or Most Recently Relevant to Health Maintenance Insurance [facility] [place] [address] Advance Directives For more information, please contact: [phone] Documents on File Type Date Recorded Patient Log Deckman Expl anation ADVANCE DIRECTIVE 05/26/2020 6:51 PM ADVANCE DIRECTIVE 05/26/2020 * Full Code (Latest Code Status on File) Date Activated Date Inactivated Comments 10/17/2024 11:49 AM 10/18/2024 1:28 PM * Full Code Date Activated Date Inactivated Comments 04/19/2021 2:11 PM 04/19/2021 7:30 PM * Full Code Date Activated Date Inactivated Comments 04/18/2021 9:58 PM 04/19/2021 2:11 PM * Full Code Date Activated Date Inactivated Comments 04/04/2021 12:24 PM 04/07/2021 6:13 PM * Full Code Date Activated Date Inactivated Comments 02/14/2021 8:44 AM 02/14/2021 3:06 PM Care Teams Melter Operator Relationship Specialty Start Date End Date Prashanth Saldana PA [address] [place] [address] PCP - General Family Practice 05/25/20 Con Beltrán MD Referring Physician Pediatric Endocrinology 12/20/18 Sidney Russell MD [address] [place] [address] Consulting Physician Gastroenterology 04/19/21
--- OUTSIDE RECORDS SUMMARY | 2024-11-03 16:12 | XMS_ITS | Clinical Summary ---
Author Organization [facility] Address [address] [place] [address] Phone Care Team Providers Care Straightening Machine Feeder Name Role Phone Prashanth Saldana Primary Care Provider [phone] Allergies Active Allergy Reactions Criticality Noted Date [...] 1 Active Insulin Pen Needle (TechLite Pen [place]) 31G X 8 MM Misc USE TO INJECT INSULIN 4 TIMES A DAY 400 Pen Needle 3 1 Active metoclopramide (REGLAN) 10 MG Tablet Take 1 Tablet by mouth 4 times daily as needed for Nausea - 2nd line. 10 Tablet 1 Active Continuous Blood Gluc Transmit (Dexcom G6 Transmitter) MiscIndications: Type 1 diabetes mellitus without complication 1 EACH BY DOES NOT APPLY ROUTE EVERY 90 DAYS. CHANGE SENSOR EVERY 90 DAYS. 1 Each 3 2 Active Glucose Blood (OneTouch Ultra) Strip TEST FOUR TIMES DAILY 300 Strip 5 2 Active ondansetron (Zofran ODT) 4 MG TABLET DISPERSIBLE Take 1 Tablet by mouth every 8 hours as needed for Nausea - 1st line. 10 Tablet 2 Active Continuous Blood Gluc Grease Monkey (Dexcom G6 Grease Monkey) Device USE TO CHECK GLUCOSE 4X DAILY. 1 Each 2 Active Continuous Blood Gluc Sensor (Dexcom G6 Sensor) MiscIndications: Type 1 diabetes mellitus without complication CHANGE SENSOR EVERY 10 DAYS 3 Each [...] for dosing schedule 21 Tablet 5 10/17/19 Discontinu ed(Med List Clean Up) Active Problems [...] 8:15 AM CDT Hospital Encounter [facility] Medical/Surgical Intensive Care [address] [place] [address] Mayur Mcdonough MD [facility] Cindy Wright Behfar, MD Diabetic ketoacidosis without coma associated with type 1 diabetes mellitus (HCC) Discharge Disposition: Left Against Medical Advice 10/16/2024 Travel 08/20/2024 4:25 AM CAR PILOT - 08/20/2024 5:07 AM CAR PILOT Emergency [facility] Emergency [address] [place] [address] Dawson Burr MD Eustachian tube dysfunction, left Discharge Disposition: Discharged to home or Selfcare 08/20/2024 Travel from Last 3 Months Immunizations Immunization Administration Dates Next Due [id number] kiersten MCV4, Unspecif ied Formulation 04/17/2012 DTAP VACCINE 09/08/2003, 2,03/13/2000,01/09,1999 HEP B/HIB Combined [...] d Formulation 04/17/2012,04/21/2010 MMR Vaccine 09/08/2003,08/18/2001 Meningococcal MCV4O 05/09/2016 Pneumococcal Vaccine Peds - [...] pur e alcohol) [facility] [employer] Answer Date Recorded In the past 12 months has [facility], gas, oil, or water [employer] threatened to shut off services in your [...] often do you attend chur ch or sabianism services? Never 10/16/2024 Do you belong to any clubs o r organizations such as temple groups, unions, fraternal or athletic groups, or [...] medical care, and heating? Somewhat hard 10/16/2024 [facility] of Occupat ional Health - Occupational Stress [...] place to sleep or slept in a senior care (including now)? No 12/07/2023 Housing Stability Vital Sign Answer Eloy e Recorded In the last 12 months, was t here a time when you were not able to pay the mortgage or rent on time? No 10/16/2024 In the past 12 months, how m any times have you moved where you were living? 1 10/16/2024 At any time in the past 12 m [facility], were you homeless or living in a senior care (including now)? No 10/16/2024 Sexually Active Control [...] exists Diabetes: Lipid Screening 07/10/2023 07/10/2022, 10/2018 SARS-COV-2 Immunization ( season) 2024 Influenza Immunization (Season Ended) 2025 05/09/2016, 05/27/2014, 04/17/2012, Additional history exists Diabetes: Hemoglobin A1c 04/18/2025 025, 09/03/2024, 04/05/2024, [...] POCT GLUCOSE STAT 10/16/2024 2:26 AM CDT RHYTHM STRIP 10/16/2024 12:00 AM CDT LIPID PANEL Routine 06/24/2019 5:44 AM CAR PILOT from Last 3 Months or Most Recently Relevant to Health Maintenance Results * POCT Glucose (10/16/2024 8:03 AM CDT) Only the most recent of6 resultswithin the time period is included. Pathologist [facility] GLUCOSE,BEDSIDE POCT 94 70 - 99 mg/dL 10/16/2024 8:08 AM CDT [facility] Blood 10/16/2024 8:03 AM CDT 10/16/2024 8:08 AM CDT us None Provider POINT OF CARE TESTING Final Resu lt [facility] [address] [place] [address] * MRSA NASAL PCR (10/16/2024 6:20 AM CDT) Pathologist [facility] MRSA PCR RESULT Negative Negative, Invalid 10/16/2024 7:39 AM CDT [facility] Other NASOPHARYNGEAL SWAB / Unknown Non-Phlebotomy Collection / Unknown 10/16/2024 6:20 AM CDT 10/16/2024 6:25 AM CDT us Sharita Kahn APRN, CHIEF ORTHOPTIST MICROBIOLOGY - GENERAL OR DERABLES Final Result Performing Organization Address [facility] Co de Phone Number [facility] [address] [place] [address] * RSV,SARS-COV-2,INFLUENZA A&B BY PCR (10/16/2024 6:20 AM CDT) [facility] FLU A Negative Negative, Error 10/16/2024 7:05 AM CDT [facility] FLU B Negative Negative 10/16/2024 7:05 AM CDT [facility] RESP SYNC VIRUS Negative Negative 7:05 AM CDT [facility] SARSCOV2 NOT DETECTED (Reference Range for this test is Not Detected) 10/16/2024 7:05 AM CDT [facility] Comment:This test was perfor med by a Reverse Manager Multimedia PCR Method. Swab NASOPHARYNGEAL WASHINGS / Unknown Non-Phlebotomy Collection / Unknown 10/16/2024 6:20 AM CDT 10/16/2024 6:47 AM CDT us Sharita Kahn APRN, CHIEF ORTHOPTIST MICROBIOLOGY - GENERAL OR DERABLES Final Result Performing Organization Address City/[facility]/ZIP Co de Phone Number [facility] [address] [place] [address] * (ABNORMAL) BMP with Ca, Total - every 4 hours x 48 Hours (10/16/2024 6:20 AM CDT) SODIUM 143 136 - 145 mmol/L 10/16/2024 6:[address] [facility] POTASSIUM 4.1 3.5 - 5.1 mmol/L 10/16/2024 6:[address] [facility] CHLORIDE 113(H) 98 - 107 mmol/L 10/16/2024 6:[address] [facility] CO2, VENOUS 22 22 - 30 mmol/L 10/16/2024 6:[address] [facility] ANION GAP 12.1 <18.0 mmol/L 10/16/2024 6:[address] [facility] GLUCOSE 107(H) 70 - 99 mg/dL 10/16/2024 6:[address] [facility] BUN 24(H) 9 - 21 mg/dL 10/16/2024 6:[address] [facility] CREATININE, BLOOD 1.15 0.70 - 1.30 mg/dL 10/16/2024 6:[address] [facility] BUN/CREATININE RATIO 21(H) 12 - 20 ratio 10/16/2024 6:[address] [facility] CALCIUM 9.0 8.7 - 10.5 mg/dL 10/16/2024 6:[address] [facility] GFR, ESTIMATED >60 >=60 10/16/2024 6:[address] [facility] Comment: Creatinine Clearance is the preferred criteria for selecting drug dose adjustments in renally impaired patients. The GFR is provided as additional pertinent clinical information. GFR is reported in mL/min/1.73 sq m. Calculation based on the Chronic Kidney Disease Epidemiology Collaboration (CKD- EPI) equation refit without adjustment for race. GFR, EST. >60 >=60 025 6:[address] [facility] GFR, EST. NONAFRICAN >60 >=60 10/16/2024 6:47 AM CDT [facility] Blood Venipuncture / Unknown 10/16/2024 6:20 AM CDT 10/16/2024 6:35 AM CDT us Sharitajane Kahn MANAGER OF FINANCE, CHIEF ORTHOPTIST CHEMISTRY ORDERABLES Stephie l Result [facility] [address] [place] [address] * XR CHEST SINGLE VIEW PORTABLE (10/16/2024 [...] Electronically signed by Ju Beckett M.D. TW: KATEY Report ID: [id number] Reading Location: [id number] Procedure Note Ju Beckett MD - 10/16/2024 [...] Ju Beckett M.D. TW: TW Report ID: [id number] Reading Location: [id number] IMPRESSION: No acute cardiopulmonary abnormality. us Mayur Mcdonough MD IMG DIAGNOSTIC ORDER DENIS Final Result * (ABNORMAL) Hemoglobin A1C w/ Estimated Glucose (10/16/2024 2:39 AM CDT) HGB-A1C 7.9(H) 4.0 - 6.0 % 10/16/2024 6:43 AM CDT [facility] Est Average Glucose 180.0 mg/dL 10/16/2024 6:43 AM CDT [facility] Blood Venipuncture / Unknown 10/16/2024 2:39 AM CDT 10/16/2024 2:46 AM CDT Narrative [facility] - 10/16/2024 6:43 AM CDT HEMOGLOBIN A1C: DIABETIC PATIENTS: WELL-CONTROLLED: 6.2 - 7.0 INTERMEDIATE WELL-CONTROLLED: 7.0 - 9.0 POORLY-CONTROLLED: >9.0 Specimens containing greater than 5% of Hemoglobin F may result in lower than expected % HbA1C results. us Sharita Kahn APRN, CNP CHEMISTRY ORDERABLES Stephie l Result [facility] [address] [place] [address] * (ABNORMAL) CBC with Auto Differential (10/16/2024 2:39 AM CDT) WBC 15.02(H) 4.00 - 12.00 10(3)/mcL 10/16/2024 3:[address] [facility] RBC 4.90 4.40 - 5.80 10(6)/[facility] 10/16/2024 3:[address] [facility] HEMOGLOBIN (HGB) 14.3 13.0 - 16.5 g/dL 10/16/2024 3:[address] [facility] HEMATOCRIT (HCT) 42.9 38.0 - 50.0 % 10/16/2024 3:[address] [facility] MCV 87.6 82.0 - 96.0 fL 10/16/2024 3:[address] [facility] MCH 29.2 26.0 - 32.0 pg 10/16/2024 3:[address] [facility] MCHC 33.3 31.0 - 36.0 g/dL 10/16/2024 3:[address] [facility] PLATELET COUNT 315 140 - 440 10(3)/[facility] 10/16/2024 3:[address] [facility] RDW 13.5 11.8 - 15.5 % 10/16/2024 3:[address] [facility] MPV 10.6 8.0 - 12.6 fL 10/16/2024 3:[address] [facility] NEUTROPHILS 87.6(H) 40.0 - 68.0 % 10/16/2024 3:[address] [facility] LYMPHOCYTES 9.3(L) 19.0 - 49.0 % 10/16/2024 3:[address] [facility] MONOCYTES 2.7(L) 3.0 - 13.0 % 10/16/2024 3:[address] [facility] EOSINOPHILS 0.0 0.0 - 8.0 % 10/16/2024 3:[address] [facility] BASOPHILS 0.4 0.0 - 1.0 % 10/16/2024 3:06 AM CDT [facility] ABSOLUTE NEUTROPHILS 13.16(H) 1.40 - 5.30 10(3)/[facility] 10/16/2024 3:06 AM CDT [facility] ABSOLUTE LYMPHOCYTES 1.39 0.90 - 3.30 10(3)/[facility] 10/16/2024 3:06 AM CDT [facility] ABSOLUTE MONOCYTES 0.41 0.10 - 0.90 10(3)/[facility] 10/16/2024 3:06 AM CDT [facility] ABSOLUTE EOSINOPHIL 0.00 0.00 - 0.50 10(3)/[facility] 10/16/2024 3:[address] [facility] ABSOLUTE BASOPHILS 0.06 0.00 - 0.10 10(3)/[facility] 10/16/2024 3:[address] [facility] NRBC PER 100 WBC 0 10/17/19 3:[address] [facility] Blood Venipuncture / Unknown 10/16/2024 2:39 AM CDT 10/16/2024 2:46 AM CDT us Mayur Mcdonough MD HEMATOLOGY ORDERABLE S Final Result [facility] [address] [place] [address] * (ABNORMAL) Blood Gas, Venous (10/16/2024 2:39 AM CDT) PH VENOUS 7.46(H) 7.34 - 7.43 10/16/2024 3:[address] [facility] PCO2 (VENOUS) 23(L) 41 - 51 mmHg 10/16/2024 3:[address] [facility] PO2 VENOUS 133(H) 30 - 50 mmHg 10/16/2024 3:[address] [facility] O2 SAT JOHNNIE, MEASURED 99(H) 60 - 85 % 09/20 3:[address] [facility] BICARBONATE 16.7(L) 22.0 - 26.0 mmol/L 10/16/2024 3:[address] [facility] BASE VENOUS -4.6(L) -2.0 - 3.0 mmol/L 10/16/2024 3:[address] [facility] CARBOXYHEMOGLOBIN 0.5 0.0 - 5.0 % 10/16/2024 3:[address] [facility] METHEMOGLOBIN 0.7 0.0 - 1.5 % 10/16/2024 3:[address] [facility] JOHNNIE Blood Gas Venipuncture / Unknown 10/16/2024 2:39 AM CDT 10/16/2024 2:[address] [facility] - 10/16/2024 3:04 AM CDT [...] CHEMISTRY ORDERABLES Final Result Performing Organization Address City/[facility]/ZIP Co de Phone Number [facility] [address] [place] [address] * Lipase (10/16/2024 2:39 AM CDT) LIPASE 8 8 - 78 U/L 10/16/2024 3:36 AM CDT [facility] Blood Venipuncture / Unknown 10/16/2024 2:39 AM CDT 10/16/2024 2:46 AM CDT Mayur Mcdonough MD CHEMISTRY ORDERABLES Final Result Performing Organization Address [facility] Co de Phone Number [facility] [address] [place] [address] * ETOH Level (10/16/2024 2:39 AM CDT) ETHANOL <10 <10 mg/dL 10/16/2024 3:3 6 AM CDT [facility] Blood Venipuncture / Unknown 10/16/2024 2:39 AM CDT 10/16/2024 2:46 AM CDT Mayur Mcdonough MD CHEMISTRY ORDERABLES Final Result Performing Organization Address City/[facility] Co de Phone Number [facility] [address] [place] [address] * (ABNORMAL) CMP (10/16/2024 2:39 AM CDT) SODIUM 141 136 - 145 mmol/L 10/16/2024 3:36 AM CDT [facility] POTASSIUM 4.2 3.5 - 5.1 mmol/L 10/16/2024 3:36 AM CDT [facility] CHLORIDE 107 98 - 107 mmol/L 10/16/2024 3:36 AM CDT [facility] CO2, VENOUS 15(L) 22 - 30 mmol/L 10/16/2024 3:36 AM CDT [facility] ANION GAP 23.2(H) <18.0 mmol/L 10/16/2024 3:36 AM CDT [facility] GLUCOSE 256(H) 70 - 99 mg/dL 10/16/2024 3:36 AM CDT [facility] BUN 23(H) 9 - 21 mg/dL 10/16/2024 3:[address] [facility] CREATININE, BLOOD 1.21 0.70 - 1.30 mg/dL 10/16/2024 3:[address] [facility] BUN/CREATININE RATIO 19 12 - 20 ratio 10/16/2024 3:[address] [facility] TOTAL PROTEIN 7.9 6.0 - 8.0 g/dL 10/16/2024 3:[address] [facility] ALBUMIN 4.7 3.5 - 5.0 g/dL 10/16/2024 3:[address] [facility] A/G RATIO 1.5 1.0 - 2.2 10/16/2024 3:[address] [facility] CALCIUM 9.2 8.7 - 10.5 mg/dL 10/16/2024 3:[address] [facility] T BILI 0.7 0.2 - 1.2 mg/dL 10/16/2024 3:[address] [facility] SGOT (AST) 28 <43 U/L 10/16/2024 3:[address] [facility] SGPT (ALT) 17 <56 U/L 10/16/2024 3:[address] [facility] ALKALINE PHOSPHATASE 78 40 - 150 U/L 10/16/2024 3:[address] [facility] GFR, ESTIMATED >60 >=60 10/16/2024 3:[address] [facility] Comment: Creatinine Clearance is the preferred criteria for selecting drug dose adjustments in renally impaired patients. The GFR is provided as additional pertinent clinical information. GFR is reported in mL/min/1.73 sq m. Calculation based on the Chronic Kidney Disease Epidemiology Collaboration (CKD- EPI) equation refit without adjustment for race. GFR, EST. >60 >=60 025 3:36 AM CDT [facility] GFR, EST. NONAFRICAN >60 >=60 10/16/2024 3:36 AM CDT [facility] Blood Venipuncture / Unknown 10/16/2024 2:39 AM CDT 10/16/2024 2:46 AM CDT us Mayur Mcdonough MD CHEMISTRY ORDERABLES Final Result [facility] [address] [place] [address] * Critical Care (10/16/2024 2:34 AM CDT) [...] PROCEDURE/MINOR SURG ICAL ORDERABLES Final Result * RHYTHM STRIP (10/16/2024 12:00 AM CDT) 10/16/2024 us Provider Scan IMG ECG ORDERABLES Final Result RESULTING AGENCY * (ABNORMAL) Lipid Panel AM (06/24/2019 5:44 AM CAR PILOT) CHOLESTEROL 141 <=200 mg/dL 06/24/2019 1:[address] [facility] TRIGLYCERIDES 158(H) <150 mg/dL 06/24/2019 1:[address] [facility] HDL CHOLESTEROL 30.4(L) >40 mg/dL 9 1:[address] [facility] LDL 79 5 - 130 mg/dL 06/24/2019 1:[address] [facility] VLDL 32 5 - 55 mg/dL 06/24/2019 1:[address] [facility] CHOL/HDL RATIO 4.6(H) 0.0 - 4.4 06/24/2019 1:[address] [facility] NON-HDL CHOLESTEROL 110.6 <130 mg/dL 06/24/2019 1:[address] [facility] LIPID FASTING 06/24/2019 1:[address] [facility] Blood specimen (specimen) BLOOD SPECIMEN / Unknown Venipuncture / Unknown 06/24/2019 5:44 AM CAR PILOT 06/24/2019 1:10 PM CAR PILOT Toni Orourke MD CHEMISTRY ORDERABLES Fin al Result Performing Organization Address City/[facility]/ZIP Co de Phone Number [facility] [address] [place] [address] from Last 3 Months or Most Recently [...] measures to stabilize the patient. Care Teams Straightening Machine Feeder Relationship Specialty Start Date End Date Prashanth Saldana, PAC [address] [place] [address] PCP - General Physician Drag Sawyer 04/03/19
--- OUTSIDE RECORDS SUMMARY | 2024-11-03 16:12 | XMS_ITS | Encounter Summary ---
Author Organization [facility] Address [address] [place] [address] Phone Care Team Providers Care Filing And Polishing Supervisor Name Role Phone Prashanth Saldana Primary Care Provider [phone] Heidi Swift MD Unavailable Reason for Visit * Reason Comments Medication Refill Encounter Details Date Type Department Care Team (Late st Contact Info) Description 07/24/2021 Refill [facility] - Endocrinology - [place] [address] [place] [address] Heidi Swift MD [address] [address] Medication Refill Social History Tobacco [...] COVID-19? No / Unsure 07/07/2021 3:14 PM HOSPITAL PLAN ADMINISTRATOR documented as of this encounter Miscellaneous Notes * Telephone Encounter - Eli Jones RN - 07/25/2021 8:10 AM HOSPITAL PLAN ADMINISTRATOR Requested Prescriptions Pending Prescriptions Disp Refills ??? Continuous Blood Gluc Sensor (Dexcom G6 Sensor) Misc [Pharmacy Med Name: DEXCOM G6 SENSOR] Sig: CHANGE SENSOR EVERY 10 DAYS. Next appt: 08/01/2021 ITAL PLAN ADMINISTRATOR documented in this encounter Plan of Treatment Not on file documented as of this encounter Visit Diagnoses Diagnosis Type 1 diabetes mellitus without complication Type I (juvenile type) diabetes mellitus without mention of complication, not stated as uncontrolled documented in this encounter Additional Health Concerns Infection Onset Date Last Indicated Resolved Time COVID - 19 04/13/2022 04/13/2022 04/13/2022 10:4 2 AM CDT COVID - 19 05/17/2022 05/17/2022 05/27/2022 12:1 6 AM CDT Respiratory Rule-Out 05/17/2022 05/17/2022 022 12:16 AM HOSPITAL PLAN ADMINISTRATOR COVID - 19 06/27/2022 06/27/2022 07/07/2022 12:1 6 AM HOSPITAL PLAN ADMINISTRATOR Influenza 06/27/2022 06/27/2022 07/04/2022 12:1 6 AM HOSPITAL PLAN ADMINISTRATOR COVID - 19 04/05/2024 04/05/2024 04/05/2024 10:2 0 PM CDT COVID - 19 10/16/2024 10/16/2024 10/16/2024 7:05 AM CDT documented as of this encounter Care Teams Filing And Polishing Supervisor Relationship Specialty Start Date End Date Prashanth Saldana [facility] [address] [place] [id number] PCP - General Physician Roadside Mechanic 04/03/19 Heidi Swift MD [address] [address] Consulting Physician Endocrinology 08/09/20 09/23/24 documented as of this encounter
--- OUTSIDE RECORDS SUMMARY | 2024-11-03 16:12 | XMS_ITS | Encounter Summary ---
Author Organization [facility] Address [address] [place] [address] Phone Care Team Providers Care Retail Gift Card Merchandising Name Role Phone Prashanth Saldana Primary Care Provider [phone] Heidi Swift MD Unavailable Reason for Visit * Reason Comments Medication Refill Encounter Details Date Type Department Care Team (Late st Contact Info) Description 09/17/2021 Refill [facility] - Endocrinology - [place] [address] [place] [address] Heidi Swift MD [address] [address] Medication Refill Social History Tobacco [...] Eli Jones RN - 09/19/2021 3:39 PM MATERIALS SPECIALIST Requested Prescriptions Pending Prescriptions Disp Refills ??? Continuous Blood Gluc Transmit (Dexcom G6 Transmitter) Misc [Pharmacy Med Name: DEXCOM G6 TRANSMITTER] 3 Si EACH BY DOES NOT APPLY ROUTE EVERY 90 DAYS. CHANGE SENSOR EVERY 90 DAYS. Next appt: Message sent to schedule follow up. RIALS SPECIALIST documented in this encounter Plan of [...] Respiratory Rule-Out 05/17/2022 05/17/2022 022 12:16 AM MATERIALS SPECIALIST COVID - 19 06/27/2022 06/27/2022 07/07/2022 12:1 6 AM MATERIALS SPECIALIST Influenza 06/27/2022 06/27/2022 07/04/2022 12:1 6 AM MATERIALS SPECIALIST COVID - 19 04/05/2024 04/05/2024 04/05/2024 10:2 0 PM CDT COVID - 19 10/16/2024 10/16/2024 10/16/2024 7:05 AM CDT documented as of this encounter Care Teams Retail Gift Card Merchandising Relationship Specialty Start Date End Date Prashanth Saldana PAC [address] [place] [address] PCP - General Physician Suspender Cutter 04/03/19 Heidi Swift MD [address] [address] Consulting Physician Endocrinology 08/09/20 09/23/24 documented as of this encounter
--- OUTSIDE RECORDS SUMMARY | 2024-11-03 16:12 | XMS_ITS | Encounter Summary ---
Author Organization [facility] Address [address] [place] [address] Phone Care Team Providers Care Slice Plug Cutter Operator Helper Name Role Phone Cristobal Aguilera MD Primary Care Provider Con Beltrán MD Unavailable Azra Yarbrough RN Unavailable [phone] Cristobal Aguilera MD Primary Care Provider Prashanth Saldana Primary Care Provider [phone] Sidney Russell MD Unavailable [phone] Reason for Visit * Reason Onset Date Comments left msg. for family to c/b and sched. 3mo appt. 03/12/2018 Encounter Details Date Type Department Care Team (Late st Contact Info) Description 03/12/2018 Telephone [facility] Pediatric Endocrinology [facility] 2[address] [place] [address] [place] [address] Ngoc Lee left msg. for family to c/b and sched. 3mo appt. Social History Tobacco Use Types Packs/Day Years Used Date Smoking Tobacco: Never Alcohol Use Standard Drinks/Week Comments No 0 (1 standard drink = 0.6 oz pur e alcohol) Sex and Gender Information Value Date Recorded Sex Assigned at Not on file Legal Sex Male 4:12 AM MECHATRONICS TECHNOLOGIST Gender Identity Not on file Sexual Orientation [...] COVID: Suspected 05/26/2020 05/26/2020 05/27/2020 10:23 AM MECHATRONICS TECHNOLOGIST Respiratory Infection (ALLIE), contact + droplet Comment:IP Review - There is a significant event note with an alternative diagnosis and at least one negative COVID-19 test documented in Epic. Patient meets criteria for COVID-19 isolation discontinuation. ` Automatically added due to negative COVID-19 result. 05/27/2020 05/27/2020 05/27/2020 12:46 PM MECHATRONICS TECHNOLOGIST COVID: Suspected 07/04/2020 07/04/2020 07/04/2020 6:02 PM MECHATRONICS TECHNOLOGIST Respiratory Infection (ALLIE), contact + droplet Comment:Patient classified as Low Risk for COVID-19 and has one negative COVID-19 test. Patient meets criteria for COVID-19 isolation discontinuation 07/04/2020 [place] Automatically added due to negative COVID-19 result. 07/04/2020 07/04/2020 07/04/2020 8:[address] COVID: Suspected 08/03/2020 08/03/2020 08/03/2020 10:50 PM MECHATRONICS TECHNOLOGIST Respiratory Infection (ALLIE), contact + droplet Comment:08/04/2020 [...] documented as of this encounter Care Teams Slice Plug Cutter Operator Helper Relationship Specialty Start Date End Date Cristobal Aguilera MD PCP - General 10/19/16 11/15/19 Cristobal Aguilera MD PCP - General 11/16/19 05/24/20 Prashanth Saldana PA [address] [place] [address] PCP - General Family Practice 05/25/20 Con Beltrán MD Referring Physician Pediatric Endocrinology 12/20/18 Azra Yarbrough, RN [address] [address] [facility] Outpatient Wire Rigger 11/16/19 12/15/19 Sidney Russell MD [address] [place] [address] Consulting Physician Gastroenterology 04/19/21 documented as of this encounter
--- OUTSIDE RECORDS SUMMARY | 2024-11-03 16:12 | XMS_ITS | Referral Summary ---
Author Organization [facility] ospital Address [address] [place] [address] Care Team Providers Care Door Tender Name Role Phone Con Beltrán MD Unavailable [phone] Prashanth Saldana Primary Care Provider [phone] Sidney Russell MD Unavailable [phone] Encounters Date Type Department Care Team Description 11/03/2024 1:15 PM CDT - 11/03/2024 2:44 PM CDT Emergency [facility] Emergency Department [address] [place] [address] Discharge Disposition: Left Against Medical Advice 10/27/2024 Results Follow-Up [facility] Diabetes Endocrine Care at [address] [phone] Nay Alford, EXCEPTIONAL CHILDREN TEACHER ASSISTANT 10/27/2024 8:51 AM CDT - 10/27/2024 11:59 PM CDT Hospital Encounter [address] [address] Type 1 diabetes mellitus with hyperglycemia (HCC) Discharge Disposition: Discharge to home or self care 10/27/2024 8:45 AM CDT Lab [facility] Outpatient Lab at [address] [place] [id number] Type I (juvenile type) diabetes mellitus with renal manifestations, 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) (Primary Dx) 10/27/2024 8:30 AM CDT Office Visit [facility] Diabetes Endocrine Care at [address] [place] [phone] Nay Alford NP Type 1 diabetes mellitus with hyperglycemia (HCC) (Primary Dx); Diabetic polyneuropathy associated with type 1 diabetes mellitus (HCC); Mixed hyperlipidemia; Tandem T slim Insulin pump in place; Nausea and vomiting, unspecified vomiting type; Cyclical vomiting 10/17/2024 6:55 AM CDT - 10/18/2024 9:22 AM CDT Emergency [facility] [address] [place] [address] Yonas Bradley MD Sinha, Chandni, MD Saeed, Salman, MD Nausea and vomiting, unspecified vomiting type (Primary Dx) Discharge Disposition: Left Against Medical Advice from Last 3 Months Allergies Active Allergy Reactions Criticality Noted Date [...] (two) times a day as needed 03/18/20 Active Compro 25 mg suppository INSERT 1 SUPPOSITORY TWICE A DAY RECTALLY NEEDED. 02/17/20 Active ondansetron (ZOFRAN) 4 mg tablet TAKE 1-2 TABLETS BY MOUTH EVERY 8 HOURS NEEDED FOR NAUSEA - 1ST LINE. 06/29/20 22 Active blood-glucose meter kit Use daily as directed for monitoring of blood sugar for diabetes e10.65 1 kit 1 02/06/20 Active lancets misc 1 each by other route 3 (three) times a day before meals E10.65 100 each 02/06/20 Active insulin glargine 100 unit/mL (3 mL) pen for injection Inject 13 Units under the skin daily E10.65 use for insulin pump faillure. Pump has failed. 15 mL 02/06/20 23 Active Additional Information Patient not taking.Reported on 10/27/2024 pen needle, diabetic 32 gauge x needle Use to inject insulin daily. E10.65 50 each 11 02/06/20 23 Active blood glucose diagnostic (OneTouch Ultra Test) strip CHECK BLOOD SUGAR 3 TIMES DAILY OR DIRECTED 100 strip 11 08/28/19 24 Active traMADoL (ULTRAM) 50 mg tablet Take 1 tablet (50 mg total) by mouth every 6 (six) hours as needed for pain for up to 15 days 15 tablet 01/09/20 24 Active Dexcom G7 Sensor device 1 Device [...] . Assessment & Plan (07/10/2022 9:22 AM METALLURGICAL TECHNICIAN): This is a chronic condition which is [...] of less than 70. Encouraged to contact [employer] and have a new pump shipped Discussed [...] statin Assessment & Plan (07/10/2022 9:19 AM METALLURGICAL TECHNICIAN): This is a chronic condition which is [...] G6 at home. He was seen in [facility], but missed appointment in the adult [...] prescribed. Assessment & Plan (08/04/2020 3:50 AM METALLURGICAL TECHNICIAN): H/o pancreatitis attributed to hypertriglyceridemia. TGs 215 on 05/27/20. -Continue home fenofibrate and atorvastatin Resolved Problems Problem Noted Date Diagnosed Date Resolved Date Leukocytosis 04/18/2021 04/04/2022 Gallbladder sludge 04/05/2021 Marijuana abuse 04/05/2021 04/04/2022 JACK (acute kidney injury) ([facility]) 10/25/2020 04/04/2022 Diarrhea 10/25/2020 04/04/2022 Hypokalemia 08/04/2020 04/04/2022 Assessment & Plan (08/04/2020 3:59 AM METALLURGICAL TECHNICIAN): K to 3.2 after hyperglycemia protocol s/p 40 mEq of IV K in ED. -CTM w/ BMP Nausea and vomiting 07/05/2020 04/04/20 22 Assessment & Plan (08/04/2020 4:10 AM METALLURGICAL TECHNICIAN): Patient has chronic N/V, now presenting w/ 3 days of persistent N/V. No abdominal pain. Lipase 15 on presentation. +MJ use. DDx: cyclic vomiting vs. diabetic gastroparesis. -Zofran prn -Pepcid -Can trial Reglan -Encourage MJ cessation Assessment & Plan (07/05/2020 4:24 PM METALLURGICAL TECHNICIAN): Etiology likely DKA. Other considerations are PUD [...] tolerated Intractable vomiting 07/04/2020 022 Hypertriglyceridemia 10/30/2019 Assessment & Plan (10/30/2019 4:25 PM CDT): [...] 04/04/2022 Assessment & Plan (07/05/2020 4:26 PM METALLURGICAL TECHNICIAN): Etiology likely DKA. pH is 7.50 (alkalosis) [...] sepsis. Treatment as outlined above Hypercholesteremia 04/08/2018 Encephalopathy, metabolic 03/07/2018 Diabetic ketoacidosis associ ated with type 1 diabetes mellitus 02/17/2018 04/04/2022 Assessment & Plan (08/04/2020 3:41 AM METALLURGICAL TECHNICIAN): Patient multiple past hospitalizations for DKA, most recently in June presenting w/ DKA after 3 days of persistent N/V. BG was 338 w/ AG 18, bicarb 21, ketones 3.2. BG now in the 100s and AG close after hyperglycemia protocol. A1C 10.5 08/02/20. Is a patient of Dr. Swift at [facility] medical group in [place]. Last seen on 07/25 with plan for [...] f/u. Assessment & Plan (07/05/2020 4:21 PM METALLURGICAL TECHNICIAN): DKA (ketones 1.4, BG 242, urine glucose [...] insulin regimen is needed at this time. outreach educator have talked to Peter and family [...] with diabetes mellitus due to underlying condition ([facility]) 04/04/2022 EKG abnormality 04/04/2022 Choledocholithiasis 04/04/20 Abdominal [...] on file Legal Sex Male 4:12 AM METALLURGICAL TECHNICIAN Gender Identity Not on file Sexual Orientation [...] 11/03/2024 1:22 PM CDT Plan of Treatment Not on [...] ORDERABLES Final Res ult Performing Organization Address [facility] Co de Phone Number ALYSSA CACERES ([place]) 1 [facility] [place] [address] * Blood gas, venous (11/03/2024 1:33 PM CDT) Pathologist [facility] pH, Venous 7.37 7.32 - 7.43 PCO2, [...] ORDERABLES Final Res ult Performing Organization Address [facility]/ZIP Co de Phone Number ALYSSA CACERES ([place]) 1 [facility] [place] [address] * eGFR (11/03/2024 1:31 PM CDT) Pathologist [facility] eGFR >90 >=60 mL/min/1. 73 m2 Comment: [...] MD LAB BLOOD ORDERABLES Final Res ult [facility] ([place]) 1 [facility] Department of Laboratories [place], [place] [id number] * Differential, auto (11/03/2024 1:31 PM CDT) [...] Neutrophil pct 46.8 % [facility] ([place]) Comment: Interpretive [...] [facility] ([place]) 1 [facility] Department [place] [address] * CBC with auto differential (11/03/2024 1:31 PM CDT) WBC 5.62 3.80 - 9.90 K/cumm Hgb 13.9 13.0 - 17.5 g/dL [facility] ([place]) Hct 42.7 38.9 - 50.3 % [facility] ([place]) Plt 337 150 - 400 K/cumm [facility] ([place]) MPV 9.6 9.1 - 12.3 fL [facility] ([place]) RBC 4.86 4.30 - 5.80 M/cumm [facility] ([place]) MCV 87.9 81.3 - 96.4 fL [facility] ([place]) MCH 28.6 27.1 - 33.3 pg [facility] ([place]) MCHC 32.6 32.3 - 35.7 g/dL [facility] ([place] RDW CV 13.7 11.1 - 14.9 % [facility] ([place] RDW SD 44.2 35.7 - 48.1 fL [facility] ([place]) NRBC abs 0.00 0.00 - 0.01 K/cumm [facility] ([place] Blood Venous blood specimen / Unknown 11/03/2024 1:31 PM CDT 11/03/2024 1:37 PM CDT Chato Daniels MD LAB BLOOD ORDERABLES Final Res ult [facility] ([place]) 1 [facility] [place] [address] * Lipase (11/03/2024 1:31 PM CDT) Pathologist [facility] Lipase 11 10 - 99 Units/L Blood Venous blood specimen / Unknown 11/03/2024 1:31 PM CDT 11/03/2024 1:37 PM CDT Chato Daniels MD LAB BLOOD ORDERABLES Final Res ult [facility] ([place]) 1 [facility] [place] [address] * Comprehensive metabolic panel (11/03/2024 1:31 PM CDT) Sodium 140 135 - 145 mmol/L Potassium, pl 4.6 3.3 - 4.9 mmol/L [facility] ([place]) Chloride 103 97 - 110 [...] [facility]A [facility] ([place]) 1 [facility] Department [place] [address] * eGFR (10/27/2024 8:51 AM CDT) eGFR [...] 8:51 AM CDT 10/27/2024 2:58 PM CDT Nay Alford EXCEPTIONAL CHILDREN TEACHER ASSISTANT LAB BLOOD ORDERABLES Final Resu lt Performing Organization Address [facility]/[place] Co de Phone Number ALYSSA AHMADI [address] [place] [address] * Thyroid Function [place] (10/27/2024 8:51 AM CDT) TSH 1.51 0.30 - 4.20 mcIUnit/mL Blood 10/27/2024 8:51 AM CDT 10/27/2024 2:50 PM CDT Nay Alford EXCEPTIONAL CHILDREN TEACHER ASSISTANT LAB BLOOD ORDERABLES Final Resu lt Performing Organization Address [facility]/[place] [phone] [address] Department [employer] [place], [place] [id number] * (ABNORMAL) Albumin Creatinine Ratio, Urine (10/27/2024 8:51 AM CDT) Albumin Ur 96.3 mg/L Comment: Interpretive Data No reference range established. Current interpretive data was last revised 2018. Creatinine Ur 124.7 mg/dL ALYSSA Comment: Interpretive Data No reference range established. Current interpretive data was last revised 2018. Albumin Creatinine Ratio, Ur 77(H) 1 - 29 mg/g ALYSSA Urine 10/27/2024 8:51 AM CDT 10/27/2024 2:50 PM CDT us Nay Alford NP LAB URINE ORDERABLES Final Resu lt [facility] [address] [place] [address] * (ABNORMAL) Lipid panel (10/27/2024 8:51 AM CDT) Cholesterol 149 30 - 199 mg/dL Comment: [...] 2018. LDL, calculated 98 <=129 mg/dL ALYSSA AHMADI Comment: Interpretive Data Ages < or = 19 years Acceptable: <110 mg/dL Borderline high: 110-129 mg/dL High: >or= 130 mg/dL Ages > or = 20 years Optimal: <100 mg/dL Near optimal: 100-129 mg/dL Borderline high: 130-159 mg/dL High: >160 mg/dL Calculated using the Ashok LDL-C estimating equation. This equation was implemented on 2024. Prior to this date LDL-C was estimated using the Friedewald equation. Literature References: 1. Expert Panel on Integrated Guidelines for Cardiovascular Health and Risk Reduction in Children and Adolescents. Pediatrics 2011;128:S213 2. NCEP Expert Panel. Circulation 2004;110:227 3. Ashok Patel et al. WENDI Cardiol. 2019November 19;5(5):540-548. doi: 10.1001/jamacardio.2020.0013 Current Interpretive Data was last revised on 2024. Non-HDL Cholesterol 113 mg/dL ALYSSA AHMADI Comment: Interpretive Data Ages [...] last revised on 2018. Chol/HDL ratio 4 ALYSSA Blood 10/27/2024 8:51 AM CDT 10/27/2024 2:50 PM CDT Narrative [facility] - 10/27/2024 3:21 PM CDT These lab test should be done fasting. This means do not eat or drink for at least 12 hours prior to getting your blood drawn. Has the patient been fasting for 8 hours or more?->Yes us Nay Alford NP LAB BLOOD ORDERABLES Final Resu lt ALYSSA [address] [place] [address] * (ABNORMAL) Comprehensive metabolic panel (10/27/2024 8:51 [...] CH Glucose 232(H) 70 - 199 mg/dL [facility] Comment: Interpretive Data Fasting glucose >/= 126 [...] CH AST 25 10 - 50 Units/L [facility] Blood 10/27/2024 8:51 AM CDT 10/27/2024 2:50 PM CDT Nay Alford NP LAB BLOOD ORDERABLES Final Resu lt Performing Organization Address City/[facility]/ZIP Co de Phone Number ALYSSA AHMADI [phone] [address] [place] [address] * POCT glucose (10/27/2024 8:26 AM CDT) Glucose Blood, POC 232 mg/dL Blood 10/27/2024 8:26 AM CDT Nay Alford EXCEPTIONAL CHILDREN TEACHER ASSISTANT POINT OF CARE TEST ORDERABLES F inal Result * POCT glucose (10/18/2024 7:38 AM CDT) Glucose, POC 108 70 - 199 mg/dL Blood 10/18/2024 7:38 AM CDT 10/18/2024 7:38 AM CDT Candido Romero MD LAB POCT ORDERABLES - DEVICE Fin al Result ALYSSA [facility] ([place]) 1 [facility] Department [place] [address] * eGFR (10/18/2024 5:18 AM CDT) eGFR [...] BLOOD ORDERABLES Final Resu lt [facility] ([place]) 1 [facility] Department [place] [address] * (ABNORMAL) Differential, auto (10/18/2024 5:18 AM CDT) Neutrophil abs 6.3 1.5 - 6.5 K/cumm Imm gran abs 0.0 0.0 - 0.1 K/cumm [facility] ([place]) Lymphocyte abs 3.8(H) 0.8 - 3.3 K/cumm [...] MD LAB BLOOD ORDERABLES Final Resu lt [facility] ([place]) 1 [facility] Department [place] [address] * (ABNORMAL) CBC with auto differential (10/18/2024 [...] ([place]) MCHC 32.8 32.3 - 35.7 g/dL [facility] ([place]) RDW CV 13.6 11.1 - 14.9 % [facility] ([place]) RDW SD 43.8 35.7 - 48.1 fL [facility] ([place]) NRBC abs 0.00 0.00 - 0.01 K/cumm [facility] ([place] Blood 10/18/2024 5:18 AM CDT 10/18/2024 5:49 AM CDT Aspen Hernandez MD LAB BLOOD ORDERABLES Final Resu lt ALYSSA CACERES ([place]) 1 [facility] [place] [address] * Phosphorus (10/18/2024 5:18 AM CDT) Phosphorus, pl 3.0 2.3 - 4.5 mg/dL Blood 10/18/2024 5:18 AM CDT 10/18/2024 5:49 AM CDT Aspen Hernandez MD LAB BLOOD ORDERABLES Final Resu lt ALYSSA CACERES ([place]) 1 [facility] [place] [employer] [place] [address] * Magnesium (10/18/2024 5:18 AM CDT) Magnesium 2.0 1.4 - 2.5 mg/dL Blood 10/18/2024 5:18 AM CDT 10/18/2024 5:49 AM CDT Aspen Hernandez MD LAB BLOOD ORDERABLES Final Resu lt ALYSSA CACERES ([place]) 1 [facility] [place] [employer] [place] [address] * (ABNORMAL) Basic metabolic panel (10/18/2024 5:18 AM CDT) Sodium 139 135 - 145 mmol/L Potassium, pl 3.4 3.3 - 4.9 mmol/L [facility] ([place]) Chloride 105 97 - 110 mmol/L [facility] ([place]) CO2 22 22 - 32 mmol/L [facility] ([place]) Anion gap 12 2 - 15 mmol/L [facility] ([place]) BUN 9 6 - 25 mg/dL [facility] ([place]) Creatinine 0.88 0.80 - 1.30 mg/dL [facility] ([place]) Glucose 115 70 - 199 mg/dL [facility] ([place]) Comment: Interpretive Data Fasting glucose >/= [...] 2022. Calcium 8.1(L) 8.5 - 10.3 mg/dL [facility] ([place]) Blood 10/18/2024 5:18 AM CDT 10/18/2024 5:49 AM CDT us Aspen Hernandez MD LAB BLOOD ORDERABLES Final Resu lt Performing Organization Address City/[facility]/ZIP Co de Phone Number [facility] ([place]) 1 [facility] Department [place] [address] * POCT glucose (10/18/2024 2:33 AM CDT) Pathologist [facility] Glucose, POC 103 70 - 199 mg/dL Blood 10/18/2024 2:33 AM CDT 10/18/2024 2:33 AM CDT Aspen Hernandez MD LAB POCT ORDERABLES - DEVICE Fi nal Result Performing Organization Address City/[facility]/ZIP Co de Phone Number ALYSSA CACERES ([place]) 1 [facility] [place] [address] * POCT glucose (10/18/2024 12:08 AM CDT) Glucose, POC 114 70 - 199 mg/dL Blood 10/18/2024 12:0 8 AM CDT 10/18/2024 12:08 AM CDT us Aspen Hernandez MD LAB POCT ORDERABLES - DEVICE Fi nal Result ALYSSA CACERES ([place]) 1 [facility] [place] [address] * POCT glucose (10/17/2024 4:25 PM CDT) Glucose, POC 131 70 - 199 mg/dL Blood 10/17/2024 4:25 PM CDT 10/17/2024 4:25 PM CDT us Aspen Hernandez MD LAB POCT ORDERABLES - DEVICE Fi nal Result Performing Organization Address City/[facility]/ZIP Co de Phone Number ALYSSA CACERES ([place]) 1 [facility] [place] [employer] [place] [address] * POCT glucose (10/17/2024 1:34 PM CDT) Glucose, POC 128 70 - 199 mg/dL Blood 10/17/2024 1:34 PM CDT 10/17/2024 1:34 PM CDT Aspen Hernandez MD LAB POCT ORDERABLES - DEVICE Fi nal Result ALYSSA CACERES ([place]) 1 [facility] [place] [address] * eGFR (10/17/2024 9:42 AM CDT) eGFR [...] MD LAB BLOOD ORDERABLES Final R esult [facility] ([place]) 1 [facility] Department [place] [address] * (ABNORMAL) Basic metabolic panel (10/17/2024 9:42 AM CDT) Sodium 138 135 - 145 mmol/L Potassium, pl 3.6 3.3 - 4.9 mmol/L [facility] ([place] Chloride 105 97 - 110 mmol/L [facility] ([place]) CO2 23 22 - 32 mmol/L [facility] ([place] Anion gap 11 2 - 15 mmol/L [facility] ([place]) BUN 9 6 - 25 mg/dL [facility] ([place]) Creatinine 0.76(L) 0.80 - 1.30 mg/dL [facility] ([place] Glucose 121 70 - 199 mg/dL [facility] ([place]) Comment: Interpretive Data Fasting glucose [...] 2022. Calcium 7.8(L) 8.5 - 10.3 mg/dL ALYSSA CACERES ([place]) Blood 10/17/2024 9:42 AM CDT 10/17/2024 9:44 AM CDT us Yonas Bradley MD LAB BLOOD ORDERABLES Final R esult ALYSSA NICKI ([place]) 1 [facility] Department [place] [address] * CT Abdomen Pelvis W Contrast (10/17/2024 [...] Bam Choudhary M.D. JA: OLMAN Report ID: [id number] Reading Location: [id number] Procedure Note Bam Choudhary MD - 10/17/2024 [...] Bam Choudhary M.D. JA: OLMAN Report ID: [id number] Reading Location: [id number] Yonas Bradley MD IMG CT PROCEDURES Final Resu lt * POCT glucose (10/17/2024 7:29 AM CDT) [facility] Glucose, POC 177 70 - 199 mg/dL Blood 10/17/2024 7:29 AM CDT 10/17/2024 7:29 AM CDT Yonas Bradley MD LAB POCT ORDERABLES - DEVICE Final Result ALYSSA [facility] ([place]) 1 [facility] Department [place] [address] * (ABNORMAL) Blood gas, venous (10/17/2024 7:19 AM CDT) Pathologist [facility] pH, Venous 7.50(H) 7.32 - 7.43 PCO2, Venous 31(L) 40 - 50 mmHg ALYSSA [facility] ([place]) PO2, Venous 161 mmHg [facility] ([place]) HCO3 Venous, Calculated 24 20 - 30 mmol/L [facility] ([place]) BE, venous 2 mmol/L [facility] ([place]) Comment: Interpretive Data No Reference Range Established Current Interpretive Data was last revised on 2017. Blood 10/17/2024 7:19 AM CDT 10/17/2024 7:23 AM CDT Yonas Bradley MD LAB BLOOD ORDERABLES Final R esult Performing Organization Address City/[facility]/ZIP Co de Phone Number ALYSSA CACERES ([place]) 1 [facility] [place] [address] * eGFR (10/17/2024 7:15 AM CDT) eGFR >90 >=60 mL/min/1. 73 [...] ALYSSA CACERES ([place]) 1 [facility] Department [employer] [place] [address] * (ABNORMAL) Differential, auto (10/17/2024 7:15 AM [...] ORDERABLES Final R esult Performing Organization Address [facility]/[place] Co de Phone Number ALYSSA CACERES ([place]) 1 [facility] Department [place] [address] * (ABNORMAL) Urinalysis reflex to microscopic and culture Urine (10/17/2024 7:15 AM CDT) Color, ur Yellow Yellow Clarity, ur Clear Clear [facility] ([place]) Specific gravity, ur 1.018 1.003 - 1.030 [facility] ([place]) pH, urine 7.0 [facility] ([place]) Comment: Interpretive Data U rine pH is affected by diet, medications, systemic acid-base disturbances, and renal tubular function. pH may affect urinary stone formation. For example, urine pH below 6.0 may help reduce the tendency for calcium phosphate stones and pH greater than 6.0 may reduce the tendency for uric acid stone formation. Source: [facility] [employer] Current Interpretive Data was last revised on 2017 Protein, ur ql 2+(A) Negative [facility] ([place]) Glucose, ur ql 4+(A) Negative [facility] ([place]) Ketones, ur 2+(A) Negative [facility] [...] MICROBIOLOGY - GENERAL O RDERABLES Final Result Performing Organization Address City/[facility]/ZIP Co de Phone Number [facility]SSA [facility] ([place]) 1 [facility] Department [place] [address] * (ABNORMAL) CBC with auto differential (10/17/2024 7:15 AM CDT) Pathologist [facility] WBC 19.5(H) 3.8 - 9.9 K/cumm Hgb [...] RDW SD 43.2 35.7 - 48.1 fL [facility] ([place]) NRBC abs 0.00 0.00 - 0.01 K/cumm [facility] ([place]) Blood Venous blood specimen / Unknown 10/17/2024 7:15 AM CDT 10/17/2024 7:23 AM CDT Yonas Bradley MD LAB BLOOD ORDERABLES Final R esult ALYSSA CACERES ([place]) 1 [facility] Department [place] [address] * (ABNORMAL) Drugs of Abuse Screen, Urine without Confirmation (10/17/2024 7:15 AM CDT) [facility] Amphetamine, ur Not Detected CutOff 500ng/mL Comment: Interpretive Data - Amphetamines: Samples containing greater than 500 ng/mL d-methamphetamine or other cross-reacting amphetamine compounds are reported as positive. Amphetamine immunoassays are subject to significant false positive rates due to cross-reactivity of non-amphetamine drugs. Confirmatory testing required for definitive results. Current Interpretive Data was last reviewed 2023. Barbiturates, ur Not Detected CutOff 200ng/mL [facility] ([place]) Comment: Interpretive Data - Barbiturates: Samples containing greater than 200 ng/mL secobarbital or other cross-reacting barbiturate compounds are reported as positive. False positive and false negative results are possible. Confirmatory testing required for definitive results. Current Interpretive Data was last reviewed 2023. Benzodiazepines, ur Not Detected CutOff 100ng/mL [facility] ([place]) Comment: Interpretive Data - Benzodiazepines: Samples containing greater than 100 ng/mL nordiazepam or other cross-reacting compounds are reported as positive. False positive and false negative results are possible. Confirmatory testing required for definitive results. Current Interpretive Data was last reviewed 2023. Cannabinoids, ur Screen Positive, presumptive (A) CutOff 50 ng/mL [facility] ([place]) Comment: Interpretive Data - Cannabinoids: [...] 2023. Opiates, ur Not Detected CutOff 300ng/mL ALYSSA CACERES ([place]) Comment: Interpretive Data - Opiates: Samples containing greater than 300 ng/mL morphine or other cross-reacting compounds are reported as positive. False positive and false negative results are possible. Confirmatory testing required for definitive results. Current Interpretive Data was last reviewed 2023. Oxycodone, ur Not Detected CutOff 100ng/mL ALYSSA CACERES ([place]) Comment: Interpretive Data - Oxycodone: Samples containing greater than 100 ng/mL oxycodone or other cross-reacting compounds are reported as positive. False positive and false negative results are possible. Confirmatory testing required for definitive results. Current Interpretive Data was last reviewed 2023. Phencyclidine, ur Not Detected CutOff 25 ng/mL ALYSSA CACERES ([place]) Comment: Interpretive Data - Phencyclidine: Samples containing greater than 25 ng/mL phencyclidine or other cross-reacting compounds are reported as positive. False positive and false negative results are possible. Confirmatory testing required for definitive results. Current Interpretive Data was last reviewed 2023. Urine Creatinine 135 mg/dL ALBERTO CACERES ([place]) Comment: Interpretive Data Urine Creatinine: < 10 mg/dL is extremely dilute = or > 10 but < 20 mg/dL is dilute = or > 20 mg/dL is normal Current Interpretive Data was last revised on 2017. Urine 10/17/2024 7:15 AM CDT 10/17/2024 7:23 AM CDT Narrative ALYSSA CACERES ([place]) - 10/17/2024 7:48 AM CDT Drug of Abuse screening is performed by immunoassay for medical purposes only. This is not to be used for Pain Management purposes. us Yonas Bradley MD LAB URINE ORDERABLES Final R esult ALYSSA CACERES ([place]) 1 [facility] Department [place] [address] * (ABNORMAL) Urinalysis, microscopic only (10/17/2024 7:15 AM CDT) Pathologist [facility] WBC, ur 0-5 0 - 5 /HPF RBC, ur 0-2 0 - 2 /HPF [facility] ([place]) Mucous, ur Present(A) ALYSSA A ([place]) Culture Reflex Comment Reflex conditions for urine culture (WBC >10) not met. [facility] ([place]) Urine 10/17/2024 7:15 AM CDT 10/17/2024 7:23 AM CDT Yonas Bradley MD LAB URINE ORDERABLES Final R esult Performing Organization Address City/[facility]/ZIP Co de Phone Number [facility] ([place]) 1 [facility] [place] [employer] [address] * Lipase (10/17/2024 7:15 AM CDT) Pathologist [facility] Lipase 10 10 - 99 Units/L Blood 10/17/2024 7:15 AM CDT 10/17/2024 7:23 AM CDT Yonas Bradley MD LAB BLOOD ORDERABLES Final R esult Performing Organization Address City/[facility]/ZIP Co de Phone Number [facility] ([place]) 1 [facility] [place] [place] [address] * (ABNORMAL) Comprehensive metabolic panel (10/17/2024 7:15 AM CDT) Pathologist [facility] Sodium 139 135 - 145 mmol/L Potassium, pl 3.7 3.3 - 4.9 mmol/L [facility] ([place]) Chloride 100 97 - 110 mmol/L [facility] ([place]) CO2 22 22 - 32 mmol/L [facility] ([place]) Anion gap 17(H) 2 - 15 mmol/L [facility] ([place]) BUN 10 6 - 25 mg/dL [facility] ([place]) Creatinine 0.85 0.80 - 1.30 mg/dL [facility] ([place]) Glucose 179 70 - 199 mg/dL [facility] ([place]) Comment: Interpretive Data Fasting glucose >/= [...] MD LAB BLOOD ORDERABLES Final R esult [facility] ([place]) 1 [facility] Department [place] [address] * (ABNORMAL) Hemoglobin A1c (09/03/2024) SCRIBED Hemoglobin A1c 9.0(A) 4.8 - 5.7 % EXTERNAL LAB Blood 09/03/2024 Historical Provider LAB BLOOD ORDERABLES Stephie l Result EXTERNAL LAB * DIABETES FOOT EXAM (04/08/2018) Diabetic Foot Exam Normal Historical Provider HEALTH MAINTENANCE Final Result from Last 3 Months or Most Recently Relevant to Health Maintenance Insurance [facility] [place] [address] Advance Directives For more information, please contact: [phone] Documents on File Type Date Recorded 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
--- OUTSIDE RECORDS SUMMARY | 2024-11-03 16:12 | XMS_ITS | Encounter Summary ---
Author Organization [facility] Address [address] [place] [address] Care Team Providers Care Registrar Museum Name Role Phone Con Beltrán MD Unavailable [phone] Prashanth Saldana Primary Care Provider [phone] Sidney Russell MD Unavailable [phone] Encounter Details Date Type Department Care Team (Late st Contact Info) Description 10/27/2024 Results Follow-Up [facility] Diabetes Endocrine Care at [address] [place] [address] Nay Alford, PHOTOGEOLOGIST [address] [facility] [address] [place] [id number] Social History Tobacco Use Types Packs/Day Years [...] on file Legal Sex 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 Please call Peter. Tell him his microalbumin creatinine ratio is elevated to [id number]. The goal is for this to be less than 30. This means he has protein in his urine. His diabetes is affecting his kidneys. Currently his overall kidney function is good. Please encourage him to keephis blood sugar below 150. His LDL cholesterol is at 90. The goal for people with diabetes is to have it less than 70. Encouraged him to eat fried foods once weekly documented in this encounter Plan of Treatment Not on file documented as of this encounter Visit Diagnoses Not on filedocumented in this encounter Care Teams Registrar Museum Relationship Specialty Start Date End Date Prashanth Saldana PA [address] [place] [address] PCP - General Family Practice 05/25/20 Con Beltrán MD Referring Physician Pediatric Endocrinology 12/20/18 Sidney Russell MD [address] [place] [address] Consulting Physician Gastroenterology 04/19/21 documented as of this encounter
--- OUTSIDE RECORDS SUMMARY | 2024-11-03 16:12 | XMS_ITS | Encounter Summary ---
Author Organization [facility] Address [address] [place] [address] Phone Care Team Providers Care Kennel Operator Name Role Phone Prashanth Saldana Primary Care Provider [phone] Heidi Swift MD Unavailable Reason for Visit * Reason Comments Medication Refill Encounter Details Date Type Department Care Team (Late st Contact Info) Description 08/28/2021 Refill [facility] - Endocrinology - [place] [address] [place] [address] Heidi Swift MD [address] [address] Medication Refill Social History Tobacco [...] Coronavirus / COVID-19? Yes 08/01/2021 9:49 AM OUTSIDE SALES REPRESENTATIVE INSURANCE documented as of this encounter Miscellaneous Notes * Telephone Encounter - Eli Jones RN - 08/28/2021 9:00 AM OUTSIDE SALES REPRESENTATIVE INSURANCE Requested Prescriptions Pending Prescriptions Disp Refills ??? insulin lispro (HumaLOG) 100 UNIT/ML Solution [Pharmacy Med Name: HUMALOG 100 UNIT/ML VIAL] 30 mL 0 Sig: UP TO 100 UNITS/DAY PER INSULIN PUMP SETTINGS Next appt: 09/12/2021 IDE SALES REPRESENTATIVE INSURANCE documented in this encounter Plan of Treatment Not on file documented as of this encounter Visit Diagnoses Not on filedocumented in this encounter Additional Health Concerns Infection Onset Date Last Indicated Resolved Time COVID - 19 04/13/2022 04/13/2022 04/13/2022 10:4 2 AM CDT COVID - 19 05/17/2022 05/17/2022 05/27/2022 12:1 6 AM CDT Respiratory Rule-Out 05/17/2022 05/17/2022 022 12:16 AM OUTSIDE SALES REPRESENTATIVE INSURANCE COVID - 19 06/27/2022 06/27/2022 07/07/2022 12:1 6 AM OUTSIDE SALES REPRESENTATIVE INSURANCE Influenza 06/27/2022 06/27/2022 07/04/2022 12:1 6 AM OUTSIDE SALES REPRESENTATIVE INSURANCE COVID - 19 04/05/2024 04/05/2024 04/05/2024 10:2 0 PM CDT COVID - 19 10/16/2024 10/16/2024 10/16/2024 7:05 AM CDT documented as of this encounter Care Teams Kennel Operator Relationship Specialty Start Date End Date Prashanth Saldana PAC [address] [place] [id number] PCP - General Physician Department Operations Manager 04/03/19 Heidi Swift MD [address] [id number] Consulting Physician Endocrinology 08/09/20 09/23/24 documented as of this encounter
--- OUTSIDE RECORDS SUMMARY | 2024-11-03 16:12 | XMS_ITS | Encounter Summary ---
Author Organization [facility] Address [address] [place] [address] Phone Care Team Providers Care Impregnating Tank Operator Name Role Phone Prashanth Saldana Primary Care Provider Heidi Swift MD Unavailable Reason for Visit * Reason Comments Medication Refill Encounter Details Date Type Department Care Team (Late st Contact Info) Description 12/27/2021 Refill [facility] - Endocrinology - [place] [address] [place] [address] Heidi Swift MD [address] [address] Medication Refill Social History Tobacco [...] Notes * Telephone Encounter - Saadia Lawson, [facility] - 12/29/2021 11:37 AM CDT Patient calling requesting refill of: Requested Prescriptions Pending Prescriptions Disp Refills ??? 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 and will have to call back [...] Respiratory Rule-Out 05/17/2022 05/17/2022 022 12:16 AM ELECTRONIC WARFARE TECHNICAL COVID - 19 06/27/2022 06/27/2022 07/07/2022 12:1 6 AM ELECTRONIC WARFARE TECHNICAL Influenza 06/27/2022 06/27/2022 07/04/2022 12:1 6 AM ELECTRONIC WARFARE TECHNICAL COVID - 19 04/05/2024 04/05/2024 04/05/2024 10:2 0 PM CDT COVID - 19 10/16/2024 10/16/2024 10/16/2024 7:05 AM CDT documented as of this encounter Care Teams Impregnating Tank Operator Relationship Specialty Start Date End Date Prashanth Saldana PAC [address] [place] [address] PCP - General Physician Meter Reader 04/03/19 Heidi Swift MD [address] [address] Consulting Physician Endocrinology 08/09/20 09/23/24 documented as of this encounter
--- OUTSIDE RECORDS SUMMARY | 2024-11-03 16:12 | XMS_ITS | Clinical Summary ---
Author Organization [facility] Address [address] [facility] [place] [address] Care Team Providers Care Pairer Substandard Name Role Phone Unavailable Primary Care Provider Unavailabl e Source Comments [facility] [employer],non-owned Affiliates and Associated Physician Practices is amultiple site organization consisting of ambulatory clinics and hospital sitesin [place], [place], [place] and [place]. This disclosure is being madepursuant to the Care Everywhere program and may not contain all information available regarding this patient. Last updated 18.[facility] [employer] Allergies No known active allergies Medications * Be aware that medications may not be up to date on this document. Alwaysverify current medications with the patient. insulin glargine (LANTUS) pen Inject 25 Units subcutaneously once daily 15 mL 0 Active insulin lispro (HUMALOG;ADMEL OG) 100 UNIT/ML pen Inject 5 Units subcutaneously 3 times daily before meals 15 mL 0 Active amLODIPine (NORVASC) 5 MG tablet Take 1 tablet by mouth once daily 30 tablet 0 Active famotidine (PEPCID) 10 MG tablet Take 1 tablet by mouth 2 times daily 60 tablet 0 Active Active Problems Problem Noted Date Diagnosed [...] at Not on file Legal Sex Male 1:16 PM CDT Gender Identity Not on file [...] Additional history exists COVID-19 VACCINE ( - season) 2024 DEPRESSION SCREENING 07/22/2024 DIABETES - URINE PROTEIN SCREENING 07/22/2024 INFLUENZA VACCINE (Season Ended) 2025 ZOSTER VACCINE (1 of 2) 2049 HIB [...] - 105 mg/dL 04/02/2020 3:39 AM CDT [facility] Sodium 137 136 - 145 mmol/L 04/02/2020 3:39 AM CDT [facility] Potassium 3.0(L) 3.5 - 5.1 mmol/L 04/02/2020 3:39 AM CDT [facility] Chloride 104 98 - 107 mmol/L 04/02/2020 3:39 AM CDT [facility] CO2 20(L) 23 - 31 mmol/L 04/02/2020 3:39 AM CDT [facility] Calcium 9.0 8.4 - 10.4 mg/dL 04/02/2020 3:39 AM CDT [facility] Anion Gap 13 8 - 16 mmol/L 04/02/2020 3:39 AM CDT [facility] BUN 6(L) 8.9 - 20.6 mg/dL 04/02/2020 3:39 AM CDT [facility] Creatinine 0.86 0.72 - 1.25 mg/dL 04/02/2020 3:39 AM CDT [facility] eGFR by MDRD >60 >60 mL/min/1.7 3m2 04/02/2020 3:39 AM CDT [facility] eGFR by MDRD >60 >60 mL/min/1.7 3m2 04/02/2020 3:39 AM CDT [facility] Blood BLOOD SPECIMEN / Unknown Lab Venipuncture / Unknown 04/02/2020 3:06 AM CDT 04/02/2020 3:20 AM CDT Robinson Wilkins MD LAB - CHEMISTRY ORDERABLES F inal Result [facility] [address] [place] [address] * (ABNORMAL) HEMOGLOBIN A1C (04/01/2020 12:04 PM CDT) Hemoglobin A1c 8.9(H) 4.2 - 5.6 % 04/01/2020 1:31 PM CDT [facility] Estimated Average Glucose 209 mg/dL 04/01/2020 1:31 PM CDT [facility] Blood BLOOD SPECIMEN / Unknown Venipuncture / Unknown 04/01/2020 12:04 PM CDT 04/01/2020 12:08 PM CDT Narrative [facility] - 04/01/2020 1:31 PM CDT The following cutoff levels are recommended by [place] [employer]. A1c > 6.5% : considered [...] specimen. Robinson Wilkins MD LAB - CHEMISTRY ORDERABLES F inal Result [facility] [address] [place] [address] from Last 3 Months or Most Recently Relevant to Health Maintenance Insurance [place] [address] Advance Directives * Full Code (Latest Code Status on File) Date Activated Date Inactivated Comments 04/01/2020 1:52 PM 04/02/2020 1:54 PM
--- OUTSIDE RECORDS SUMMARY | 2024-11-03 16:12 | XMS_ITS | Data Portability ---
Author Organization TIFFANY NATALIYAKaren Banerjee Address [address] [place] [address] Assessment No assessment recorded. Plan of Treatment Reminders Order Date Submit Date Provider Last Modified By Organization Details Last Modified Time Details Appointments None recorded. Lab CBC 2024 025 [facility], [address] [facility], [facility], [place], [address], 5 10:16:08 CMP, serum or plasma 2024 025 [facility], [address] [facility] [facility], [place], [address], 5 10:16:06 lipid panel, serum 2024 025 [facility], [address] [place] [address], [facility], [place], [address], 5 10:16:04 HbA1c (hemoglobin A1c), blood 2024 025 CHRISTINA In-Office Order, Internal Use Only DO Not Attach Compendium DO Not Attach Compendium, Do Not Delete/merge, [id number] 12:17:21 [facility]inalysis, dipstick [facility], Internal Use Only DO Not Attach Compendium DO Not Attach Compendium, Do Not Delete/merge, [id number] 15:45:59 Referral None recorded. Procedures None [...] By Organization Details Last Modified Time 11/13/2021 [id number] plantar fasciitis: care instructions jnanney Not available 11/13/2021 15:30:40 plantar fasciitis: exercises jnanney Not available 11/13/2021 15:30:40 learning about type 1 diabetes jnanney Not available 11/13/2021 15:30:40 type 1 diabetes: care instructions jnanney Not available 11/13/2021 15:30:40 05/30/2022 [id number] learning about type 1 diabetes jnanney Not available 05/30/2022 11:57:01 type 1 diabetes: care instructions jnanney Not available 05/30/2022 11:57:01 12/18/2022 [id number] A healthy lifestyle: care instructions jnanney Not available 12/18/2022 14:46:15 learning about type 1 diabetes jnanney Not available 12/18/2022 14:46:15 type 1 diabetes: care instructions jnanney Not available 12/18/2022 14:46:15 04/16/2023 [id number] A healthy lifestyle: care instructions jnanney Not available 04/16/2023 15:45:59 learning about type 1 diabetes jnanney Not available 04/16/2023 15:45:59 type 1 diabetes: care instructions jnanney Not available 04/16/2023 15:45:59 09/03/2024 [id number] learning about type 1 diabetes jnanney Not [...] DO Not Attach Compendium, Do Not Delete/merge, [id number] 04/16/2023 15:37:08 04/16/20 23 04/16/2023 urina lysis , dipst ick Nitrite negati ve Not Available In-Office Order Internal Use Only DO Not Attach Compendium DO Not Attach Compendium, Do Not Delete/merge, [id number] 04/16/2023 15:37:08 04/16/20 23 04/16/2023 urina lysis , dipst ick Urobilinogen .2 Not Available In-Of fice Order Internal Use Only DO Not Attach Compendium DO Not Attach Compendium, Do Not Delete/merge, [id number] 04/16/2023 15:37:08 04/16/20 23 04/16/2023 urina lysis [...] 04/16/2023 urina lysis , dipst ick Specific Ong 1.015 Not Available In-Off ice Order Internal [...] DO Not Attach Compendium, Do Not Delete/merge, [id number] 04/16/2023 15:37:08 12/07/19 24 12/07/2023 Compr ehens yen metab olic 1999 panel - Serum or Plasm a sodium [moles/volum e] in serum or plasma 130 mmol/ L low: 136mmo l/Lhig h: 145mmo l/L low SODIU M 130 (L) 136 - 145 mmol/ L 12/06 12:06 PM CDT [facility] Not Available Not Available 09/03/2024 11:01:15 12/07/19 24 12/07/2023 Compr ehens yen metab olic 1999 panel - Serum or Plasm a potassium [moles/volum e] in serum or plasma 3.4 mmol/ L low: 3.5mmo l/Lhig h: 5.1mmo l/L low POTAS SIUM 3.4 (L) 3.5 - 5.1 mmol/ L 12/06 12:06 PM CDT [facility] Not Available Not Available 09/03/2024 11:01:15 12/07/19 24 12/07/2023 Compr ehens yen metab olic 1999 panel - Serum or Plasm a chloride [moles/volum e] in serum or plasma 77 mmol/ L low: 98mmol /Lhigh : 107mmo l/L low CHLOR JULIENNE 77 (L) 98 - 107 mmol/ L 12/06 12:06 PM CDT [facility] Not Available Not Available 09/03/2024 11:01:15 12/07/19 24 12/07/2023 Compr ehens yen metab olic 1999 panel - Serum or Plasm a carbon dioxide, total [moles/volum e] in serum or plasma 23 mmol/ L low: 22mmol /Lhigh : 30mmol /L CO2, VENOU S 23 22 - 30 mmol/ L 12/06 12:06 PM [facility] Not Available Not Available 09/03/2024 11:01:15 12/07/19 24 12/07/2023 Compr ehens yen metab olic 1999 panel - Serum or Plasm a anion gap in serum or plasma 33.4 mmol/ L high: 18mmol /L high ANION GAP 33.4 (H) <18.0 mmol/ L 12/06 12:06 PM CDT [facility] Not Available Not Available 09/03/2024 11:01:15 12/07/19 24 12/07/2023 Compr ehens yen metab olic 1999 panel - Serum or Plasm a glucose [mass/volume ] in serum or plasma 377 mg/dL low: 70mg/d Lhigh: 99mg/d L high GLUCO SE 377 (H) 70 - 99 mg/dL 12/06 12:06 PM CDT [facility] [employer] [facility] Not Available Not Available 09/03/2024 11:01:15 12/07/19 24 12/07/2023 Compr ehens yen metab olic 1999 panel - Serum or Plasm a urea nitrogen [mass/volume ] in serum or plasma 48 mg/dL low: 9mg/dL high: 21mg/d L high BUN 48 (H) 9 - 21 mg/dL 12/06 12:06 PM CDT [facility] [employer] [facility] Not Available Not Available 09/03/2024 11:01:15 12/07/19 24 12/07/2023 Compr ehens yen metab olic 1999 panel - Serum or Plasm a creatinine [mass/volume ] in serum or plasma 2.8 mg/dL low: 0.7mg/ dLhigh : 1.3mg/ dL high CREAT ININE , BLOOD 2.80 (H) 0.70 - 1.30 mg/dL 12/06 12:06 PM CDT [facility] Not Available Not Available 09/03/2024 11:01:15 12/07/19 24 12/07/2023 Compr ehens yen metab olic 2000 panel - Serum or Plasm a urea nitrogen/cre atinine [mass ratio] in serum or plasma 17 text: 12 - 20 ratio BUN/C REATI NINE RATIO 17 12 - 20 ratio 12/06 12:06 PM CDT [facility] [employer] [facility] Not Available Not Available 09/03/2024 11:01:15 12/07/19 24 12/07/2023 Compr walkbyens yen metab olic 1999 panel - Serum or Plasm a protein [mass/volume ] in serum or plasma 8.4 g/dL low: 6.3g/d Lhigh: 8.2g/d L high TOTAL PROTE IN 8.4 (H) 6.3 - 8.2 g/dL 12/06 12:06 PM CDT [facility] Not Available Not Available 09/03/2024 11:01:15 12/07/19 24 12/07/2023 Compr walkbyens yen metab olic 1999 panel - Serum or Plasm a albumin [mass/volume ] in serum or plasma 4.7 g/dL low: 3.5g/d Lhigh: 5g/dL ALBUM IN 4.7 3.5 - 5.0 g/dL 12/06 12:06 PM CDT [facility] Not Available Not Available 09/03/2024 11:01:15 12/07/19 24 12/07/2023 Compr [employer] yen [employer] olic 1999 panel - Serum or Plasm a albumin/glob ulin [mass ratio] in serum or plasma 1.3 low: 1high: 2.2 A/G RATIO 1.3 1.0 - 2.2 12/06 12:06 PM CDT [facility] [employer] [facility] Not Available Not Available 09/03/2024 11:01:15 12/07/19 24 12/07/2023 Compr walkbyens yen Crystalplex olic 1999 panel - Serum or Plasm a calcium [mass/volume ] in serum or plasma 9.3 mg/dL low: 8.7mg/ dLhigh : 10.5mg /dL CALCI UM 9.3 8.7 - 10.5 mg/dL 12/06 12:06 PM CDT [facility] [employer] R [facility] Not Available Not Available 09/03/2024 11:01:15 12/07/19 24 12/07/2023 Compr ehens yen metab olic 1999 panel - Serum or Plasm a bilirubin.to su [mass/volume ] in serum or plasma 1.1 mg/dL low: 0.2mg/ dLhigh : 1.2mg/ dL T BILI 1.1 0.2 - 1.2 mg/dL 12/06 12:06 PM CDT [facility] [employer] [facility] Not Available Not Available 09/03/2024 11:01:15 12/07/19 24 12/07/2023 Compr ehens yen metab olic 1999 panel - Serum or Plasm a aspartate aminotransfe rase [enzymatic activity/vol ume] in serum or plasma 32 U/L low: 5U/Lhi gh: 34U/L SGOT (AST) 32 5 - 34 U/L 12/06 12:06 PM CDT [facility] [employer] [facility] Not Available Not Available 09/03/2024 11:01:15 12/07/19 24 12/07/2023 Compr ehens yen metab olic 1999 panel - Serum or Plasm a alanine aminotransfe rase [enzymatic activity/vol ume] in serum or plasma 41 U/L low: 0U/Lhi gh: 55U/L SGPT (ALT) 41 0 - 55 U/L 12/06 12:06 PM CDT [facility] [employer] [facility] Not Available Not Available 09/03/2024 11:01:15 12/07/19 24 12/07/2023 Compr ehens yen metab olic 2000 panel - Serum or Plasm a alkaline phosphatase [enzymatic activity/vol ume] in serum or plasma 115 U/L low: 40U/Lh igh: 150U/L ALKAL INE PHOSP HATAS E 115 40 - 150 U/L 12/06 12:06 PM CDT [facility] [employer] [facility] Not Available Not Available 09/03/2024 11:01:15 12/07/19 24 12/07/2023 Compr ehens yen metab olic 2000 panel - Serum or Plasm a glomerular filtration rate/1.73 sq M.predicted among non-blacks [volume rate/area] in serum, plasma or blood by creatinine-b ased formula (MDRD) 31 low: 60 low GFR, ESTIM ATED 31 (L) >=60 12/06 12:06 PM CDT [facility] Not Available Not Available 09/03/2024 11:01:15 12/07/19 24 12/07/2023 Compr ehens yen metab olic 1999 panel - Serum or Plasm a glomerular filtration rate/1.73 sq M.predicted among blacks [volume rate/area] in serum, plasma or blood by creatinine-b ased formula (MDRD) 34 low: 60 low GFR, EST. AFRIC AN 34 (L) >=60 12/06 12:06 PM CDT [facility] Not Available Not Available 09/03/2024 11:01:15 12/07/19 24 12/07/2023 Compr ehens yen metab olic 1999 panel - Serum or Plasm a glomerular filtration rate/1.73 sq M.predicted among non-blacks [volume rate/area] in serum, plasma or blood by creatinine-b ased formula (MDRD) 28 low: 60 low GFR, EST. NONAF RICAN 28 (L) >=60 12/06 12:06 PM CDT [facility] Not Available Not [...] 100-19 9 above high normal Not Available [address], [address], 09/04/2024 10:16:04 09/03/19 25 09/04/2024 LIPID PANEL triglyceride s 125 mg/dL 0-149 Not Available [address], [address], 09/04/2024 10:16:04 09/03/19 25 09/04/2024 LIPID PANEL HDL cholesterol 49 mg/dL >39 Not Available [address], [address], 09/04/2024 10:16:04 09/03/19 25 09/04/2024 LIPID PANEL VLDL cholesterol kiersten 23 mg/dL 5-40 Not Available [address], [address], 09/04/2024 10:16:04 09/03/19 25 09/04/2024 LIPID PANEL LDL chol calc (nih) 184 mg/dL 0-99 above high normal Not Available [address], [address], 09/04/2024 10:16:04 09/03/19 25 09/04/2024 COMP. METAB OLIC PANEL (14) glucose 108 mg/dL 70-99 above high normal Not Available [address], [address], 09/04/2024 10:16:06 09/03/19 25 09/04/2024 COMP. METAB OLIC PANEL (14) BUN 18 mg/dL 6-20 Not Available [address], [address], 09/04/2024 10:16:06 09/03/19 25 09/04/2024 COMP. METAB OLIC PANEL (14) creatinine 0.99 mg/dL 0.76-1 .27 Not Available [address], [address], 09/04/2024 10:16:06 09/03/19 25 09/04/2024 COMP. METAB OLIC PANEL (14) eGFR 108 mL/mi n/1.7 3 >59 Not Available [address], [address], 09/04/2024 10:16:06 09/03/19 25 09/04/2024 COMP. METAB OLIC PANEL (14) BUN/creatini ne ratio 18 9-20 Not Available [address], [address], 09/04/2024 10:16:06 09/03/19 25 09/04/2024 COMP. METAB OLIC PANEL (14) sodium 142 mmol/ L 134-14 4 Not Available [address], [address], 09/04/2024 10:16:06 09/03/19 25 09/04/2024 COMP. METAB OLIC PANEL (14) potassium 5.4 mmol/ L 3.5-5. 2 above high normal Not Available [address], [address], 09/04/2024 10:16:06 09/03/19 25 09/04/2024 COMP. METAB OLIC PANEL (14) chloride 104 mmol/ L 96-106 Not Available [address], [address], 09/04/2024 10:16:06 09/03/19 25 09/04/2024 COMP. METAB OLIC PANEL (14) carbon dioxide, total 23 mmol/ L 20-29 Not Available [address], [address], 09/04/2024 10:16:06 09/03/19 25 09/04/2024 COMP. METAB OLIC PANEL (14) calcium 9.8 mg/dL 8.7-10 .2 Not Available [address], [address], 09/04/2024 10:16:06 09/03/19 25 09/04/2024 COMP. METAB OLIC PANEL (14) protein, total 7.2 g/dL 6.0-8. 5 Not Available [address], [address], 09/04/2024 10:16:06 09/03/19 25 09/04/2024 COMP. METAB OLIC PANEL (14) albumin 4.6 g/dL 4.3-5. 2 Not Available [address], [address], 09/04/2024 10:16:06 09/03/19 25 09/04/2024 COMP. METAB OLIC PANEL (14) globulin, total 2.6 g/dL 1.5-4. 5 Not Available [address], [address], 09/04/2024 10:16:06 09/03/19 25 09/04/2024 COMP. METAB OLIC PANEL (14) bilirubin, total 0.2 mg/dL 0.0-1. 2 Not Available [address], [address], 09/04/2024 10:16:06 09/03/19 25 09/04/2024 COMP. METAB OLIC PANEL (14) alkaline phosphatase 92 IU/L 44-121 Not Available [address], [address], 09/04/2024 10:16:06 09/03/19 25 09/04/2024 COMP. METAB OLIC PANEL (14) AST (SGOT) 16 IU/L 0-40 Not Available [address], [address], 09/04/2024 10:16:06 09/03/19 25 09/04/2024 COMP. METAB OLIC PANEL (14) ALT (SGPT) 11 IU/L 0-44 Not Available [address], [address], 09/04/2024 10:16:06 09/03/19 25 09/04/2024 CARDI OVASC ULAR REPOR T interpretati on Note Suppl ement al repor t is avail able. Not Available [address], [address], 09/04/2024 10:16:07 09/03/19 25 09/04/2024 CARDI OVASC ULAR REPOR T pdf . Not Available [address], [address], 09/04/2024 10:16:07 09/03/19 25 09/04/2024 CBC, PLATE LET, NO DIFFE RENTI AL WBC 7.8 x10e3 /uL 3.4-10 .8 Not Available [address], [address], 09/04/2024 10:16:08 09/03/19 25 09/04/2024 CBC, PLATE LET, NO DIFFE RENTI AL RBC 4.95 x10e6 /uL 4.14-5 .80 Not Available [address], [address], 09/04/2024 10:16:08 09/03/19 25 09/04/2024 CBC, PLATE LET, NO DIFFE RENTI AL hemoglobin 13.8 g/dL 13.0-1 7.7 Not Available [address], [address], 09/04/2024 10:16:08 09/03/1909/04/2024 CBC, PLATE LET, NO DIFFE RENTI AL hematocrit 43.6 % 37.5-5 1.0 Not Available [address], [address], 09/04/2024 10:16:08 09/03/1909/04/2024 CBC, PLATE LET, NO DIFFE RENTI AL MCV 88 fL 79-97 Not Available [address], [address], 09/04/2024 10:16:08 09/03/1909/04/2024 CBC, PLATE LET, NO DIFFE RENTI AL MCH 27.9 pg 26.6-3 3.0 Not Available [address], [address], 09/04/2024 10:16:08 09/03/1909/04/2024 CBC, PLATE LET, NO DIFFE RENTI AL MCHC 31.7 g/dL 31.5-3 5.7 Not Available [address], [address], 09/04/2024 10:16:08 09/03/1909/04/2024 CBC, PLATE LET, NO DIFFE RENTI AL RDW 13.8 % 11.6-1 5.4 Not Available [address], [address], 09/04/2024 10:16:08 09/03/1909/04/2024 CBC, PLATE LET, NO DIFFE RENTI AL platelets 415 x10e3 /uL 150-45 0 Not Available [facility] [address] [facility], [place], [address], 09/04/2024 10:16:08 09/03/19 25 09/03/2024 HbA1c (hemo globi n A1c), blood HbA1c 9.0 Not Available In-Office Order Internal Use Only DO Not Attach Compendium DO Not Attach Compendium, Do Not Delete/merge, [id number] 09/03/2024 12:01:31 09/17/19 25 09/17/2024 XR, chest No observ ation record ed. [facility] [address] [place], [address], 09/18/2024 10:37:26 10/16/19 25 10/15/2024 XR, chest No observ [facility]ion [facility] [address] [place], [address], 10/16/2024 09:14:36 10/17/19 25 10/16/2024 CT, abdom en + pelvi s, w/ contr ast No observ ation record ed. [facility] [address] [place], [address], 10/16/2024 15:52:49 Result Notes None recorded. Problems Name Problem SNOMED Code Status Onset Date Resolution Date Notes Provider Name and Address Organization Details Recorded Time Pneumonia 965141530 Active 2017 KAUR [place], [place] - [facility] 0 11:54:45 Dehydration 12352244 Active 2017 KAUR Contreras, [place] - [facility] 1 14:33:10 Mixed hypercholester olemia and hypertriglycer idemia 063276941 Active 2017 KAUR [place], [place] - [facility] 0 11:54:46 Diabetic ketoacidosis without coma 157138583 Active 2017 KAUR [place], [place] - [facility] 1 10:29:24 Type 1 diabetes mellitus 18706733 Active 2017 Jeaneth Hamm MA null, [place] - [facility] 0 11:54:45 Problem Notes None recorded. Procedures Surgical History Date Name Laterality Status Provider Name and Address Organization Details Recorded Time Cholecystectomy completed Ruth Ann Gramajo MA [place] - [facility] 09/03/2024 11:51:23 Imaging Results Imaging Date Name Status LastModified by Organiz ation Details LastModified Time 09/17/2024 XR, chest completed [facility] [address] [place], [address], 09/18/2024 10:37:26 10/15/2024 XR, chest completed [facility] [address] [place], [address], 10/16/2024 09:14:36 10/16/2024 CT, abdomen + pelvis, w/ contrast completed [facility] [address] [place], [address], 10/16/2024 15:52:49 Procedure Notes None recorded. Medical Equipment None Reported. Allergies Allergen ID Allergen Name Allergen Category Reaction Reaction Severity Criticality Documentation Date Start Date Code Code System Note Provider Name and Address Organization Details Recorded Time 22027 strawberr y allergeni c extract food rash moderate Not available 03/23/2015 65584 4 RxNorm Not Available Not Available Not [...] Not Available Not Available No t Available Top10 MediaToOnzo Ultra Test strips CHECK BLOOD SUGAR 3 [...] every 6 hours by intramus cular route. 06/22/ 2021 04/25 /2022 completed Not Available Not Available Not Available [...] Available Not Available Not Available Dexcom G6 Thoracic Medicine Physician USE TO CHECK GLUCOSE FOUR TIMES DAILY [...] % 96 % 75.02 /min 23 kg/m2 79426.0 8 g 110 mm[Hg] 80 mm[Hg] Jeaneth Hamm MA [place] - [facility] 2 15:02:22 Date Recorded Body height Body mass index (BMI) Body weight Body temperature Oxygen saturation Oxygen saturation in Arterial blood by Pulse oximetry Heart rate Systolic blood pressure Diastolic blood pressure Provider Name and Address Organization Details Last Updated DateTime 2 170.18 cm 24.3 kg/m2 93845.8 2 g 97.3 [degF] 99 % 99 % 90 /min 138 mm[Hg] 84 mm[Hg] Telma david MA [facility] 2 11:31:36 Date Recorded Body height Body mass index (BMI) Body weight Respiratory rate Oxygen saturation Oxygen saturation in Arterial blood by Pulse oximetry Heart rate Systolic blood pressure Diastolic blood pressure Provider Name and Address Organization Details Last Updated DateTime 3 170.18 cm 22.7 kg/m2 06630.6 1 g 16 /min 97 % 97 % 95 /min 105 mm[Hg] 9 mm[Hg] Mary Melendez MA [facility] 3 14:24:52 Date Recorded Body height Body mass index (BMI) Body weight Oxygen saturation Oxygen saturation in Arterial blood by Pulse oximetry Heart rate Respiratory rate Systolic blood pressure Diastolic blood pressure Provider Name and Address Organization Details Last Updated DateTime 3 170.18 cm 23.1 kg/m2 26718.1 8 g 99 % 99 % 97 /min 16 /min 129 mm[Hg] 65 mm[Hg] Bella Bedoya MA [facility] 3 15:15:42 Date Recorded Body height Body mass index (BMI) Body weight Oxygen saturation Oxygen saturation in Arterial blood by Pulse oximetry Heart rate Respiratory rate Systolic blood pressure Diastolic blood pressure Provider Name and Address Organization Details Last Updated DateTime 5 170.18 cm 26.3 kg/m2 66332.5 2 g 98 % 98 % 92 /min 16 /min 128 mm[Hg] 78 mm[Hg] Ruth Ann Gramajo MA [facility] 5 11:53:39 Social History Question Answer Notes LastModified by Organizat ion Details LastModified Time Tobacco Smoking Status Never Smoker Telma Wade MA null, [facility] 05/30/2022 11:32:23 What Is Your Level Of Alcohol Consumption? None Information not available 05/06/2020 Animal Exposure? Yes Informat ion not available 03/23/2015 Are You Blind Or Do You Have Difficulty Seeing? Yes Contacts Information not available 05/30/2022 Are You Or Have You Been Involved With Bullying? No [email or web address] Information not available 03/23/2015 What Is Your [...] Type Of Diet Are You Following? REGULAR [email or web address] Information not available 03/23/2015 Do You Or Have You Ever Used E-cigarettes Or Vape? Current User Of Electronic Cigarettes Information not available 05/30/2022 Are There Any Guns Present In Your Home? Yes [email or web address] Information not available 03/23/2015 What Is Your Home Situation? Relatives Lives With Maternal Grandparents [email or web address] Information not available 05/09/2016 Do You Use Insect Repellent Routinely? Yes [email or web address] Information not available 03/23/2015 Live Alone Or With Others? With Others Information not available 05/06/2020 What Was The Date Of Your Most Recent Tobacco Screening? 09/03/2024 Information not available 09/03/2024 What Is Your Parents' Marital Status? Unmarried [email or web address] Information not available 03/23/2015 Pool Exposure No [email or web address] Information not available 03/23/2015 What Is Your Relationship Status? Single Information not available 09/21/2020 Do You Use Your Seat Belt Or Car Seat Routinely? Yes Sometimes Information not available 10/31/2020 Do You Have Any Siblings? 7 Half Sisters 1 Half Brother [email or web address] Information not available 03/23/2015 Do You Have Smoke And Carbon Monoxide Detectors In Your Home? Yes [email or web address] Information not available 03/23/2015 Are You Passively Exposed To Smoke? Yes [email or web address] Information not available 03/23/2015 Do You Or Have You Ever Used Smokeless Tobacco? Never Used Smokeless Tobacco Information not available 08/04/2019 How Much Tobacco Do You Smoke? No Information not available 08/04/2019 What Types Of Sporting Activities Do You Participate In? Golf [email or web address] Information not available 03/23/2015 General Stress Level Low Information not available 05/06/2020 Do You Feel Stressed (tense, Restless, Nervous, Or Anxious, Or Unable To Sleep At Night)? [id number] Restless Information not available 05/30/2022 Do You Use Any Illicit Or Recreational Drugs? Yes Marijuana Information not available 09/21/2020 Do You Use Sunscreen Routinely? Yes [email or web address] Information not available 03/23/2015 Has Tobacco Cessation Counseling Been Provided? No Information not available 10/31/2020 On What Date Was Tobacco Cessation Counseling Provided? 09/03/2024 Information not available 09/03/2024 Year In School 10 [email or web address] Informatio n not available 05/09/2016 Do You Or Have You Ever Used Any Other Forms Of Tobacco Or Nicotine? No Information not available 09/21/2020 Sex: Male Functional Status Question Answer Note LastModified by Organization D etails LastModified Time Are you able to care for yourself? Yes Information not available 05/06/2020 What is your exercise level? Moderate [email or web address] Information not available 03/23/2015 Mental Status None [...] or Bladder Problems N GI Problems N Eating Disorder N Skin Problems N Anemia N Constipation N Heart Attack (MN) N Diabetes Y Bedwetting N Heart Problems/Murmur N Seizures/Epilepsy N Asthma N Allergies N Substance Abuse N Hepatitis N Chicken Pox N Heart Failure N Autism Spectrum Disorder (ASD) N Osteoporosis N Immunizations Vaccine Type Date Status Note Provider Nam e and Address Organization Details Recorded Time Meningococcal MCV4O 6 completed Not Available [facility] 08/08/2019 02:32:35 HPV9 6 completed Not Available [facility] 08/08/2019 02:42:35 Influenza, split virus, quadrivalent, PF 6 completed Not Available [facility] 08/08/2019 02:32:34 Hep B, adolescent or pediatric 0 completed Not Available [facility] 05/07/2023 15:37:51 Hep B, adolescent or pediatric 0 completed Not Available [facility] 05/07/2023 15:37:51 Hep B, adolescent or pediatric 0 completed Not Available [facility] 05/07/2023 15:37:51 DTaP 4 completed Not Available [facility] 05/07/2023 15:37:51 DTaP 0 completed Not Available [facility] 05/07/2023 15:37:51 DTaP 2 completed Not Available [facility] 05/07/2023 15:37:51 DTaP 0 completed Not Available [facility] 05/07/2023 15:37:51 DTaP 0 completed Not Available [facility] 05/07/2023 15:37:51 Hib, unspecified formulation 0 completed Not Available [facility] 05/07/2023 15:37:51 Hib, unspecified formulation 4 completed Not Available [facility] 05/07/2023 15:37:51 Hib, unspecified formulation 0 completed Not Available [facility] 05/07/2023 15:37:51 Hib, unspecified formulation 0 completed Not Available [facility] 05/07/2023 15:37:51 IPV 0 completed Not Available [facility] 05/07/2023 15:37:51 IPV 4 completed Not Available [facility] [facility] 05/07/2023 15:37:51 IPV 0 completed Not Available [facility] 05/07/2023 15:37:51 IPV 0 completed Not Available [facility] 05/07/2023 15:37:51 pneumococcal conjugate PCV 7 1 completed Not Available [facility] 05/07/2023 15:37:51 MMR 4 completed Not Available [facility] 05/07/2023 15:37:51 MMR 2 completed Not Available [facility] 05/07/2023 15:37:51 varicella 0 completed Not Available [facility] 05/07/2023 15:37:51 varicella 2 completed Not Available [facility] 05/07/2023 15:37:51 influenza, unspecified formulation 2 completed Not Available [facility] 05/07/2023 15:37:51 influenza, unspecified formulation 0 completed Not Available [facility] 05/07/2023 15:37:51 influenza, unspecified formulation 4 completed Not Available [facility] 05/07/2023 15:37:51 meningococcal MCV4, unspecified formulation 2 completed Not Available [facility] 05/07/2023 15:37:51 Tdap 0 completed Not Available [facility] 05/07/2023 15:37:51 Hep A, ped/adol, 2 dose 6 completed Not Available [facility] 05/07/2023 15:37:51 Hep A, ped/adol, 2 dose 5 completed Not Available [facility] 05/07/2023 15:37:51 HPV, quadrivalent 4 completed Not Available [facility] 05/07/2023 15:37:51 HPV9 5 completed Not Available [facility] 08/08/2019 02:46:07 Past Encounters Encounter ID Performer Location Encounter Start Date Encounter Closed Date Diagnosis/Indication Diagnosis SNOMED-CT Code Diagnosis ICD10 Code Diagnosis Note [id number] Lay Vaca MA [facility] (Peds) [address] [place] [address] 03/23/2015 11:08:16 03/23/2015 12:29:38 Well child [id number] Routine adolescent care discussed safety and school performanc e discussed healthy weight with diet and exercise Type 1 ignacio betes mellitus 86488649 Routine f/u with endocrinol ogy. Daily BS monitoring . [id number] [facility] [address] [place] [address] 05/09/2016 15:46:21 05/09/2016 17:18:51 Well child 762006085 Z00.129 Routine adolescent care discussed safety and school performanc e discussed healthy weight with diet and exercise Type 1 ignacio betes mellitus 89711054 E10.8 Routine f/u with endocrinol ogy. Daily BS monitoring . [id number] [facility] [address] [place] [address] 03/18/2019 11:43:52 03/18/2019 12:43:28 Type 1 diabetes mellitus 40604990 E10.9 [id number] Prashanth Saldana PA-C [facility] [address] [place] [address] 06/09/2019 17:42:26 06/09/2019 18:58:04 Uncontrolled type 1 diabetes mellitus 799389181 E10.65 [id number] [address]endez [facility] [address] [place] [address] 08/04/2019 15:54:01 08/04/2019 17:37:44 Low back pain 856794920 M54.5 Backache w ith radiating pain 298248641 M54.04 [id number] [address] [facility] [address] [place] [address] 11/20/2019 09:29:53 11/20/2019 19:46:46 [id number] SACHIN Mendez [address] [place] [address] 05/06/2020 09:37:24 05/06/2020 12:43:22 Type 1 diabetes mellitus 80035274 E10.9 Secondary erectile dysfunction 992239119 N52.8 Mixed hypercholesterolemia and hypertriglyceridemia 849949553 E78.2 [id number] Prashanth Saldana PA-C [facility] [address] [place] [address] 08/02/2020 10:24:01 08/03/2020 08:12:05 Uncontrolled type 1 diabetes mellitus 175385151 E10.65 [id number] Jeaneth Hamm MA [facility] [address] [place] [address] 09/21/2020 10:21:28 09/22/2020 15:52:19 Paresthesia of lower extremity 345270218 R20.2 Gastroesop hageal reflux disease without esophagitis 960686732 K21.9 Low back pain 096694159 M54.5 Gynecomastia 3332016 N62 [id number] Prashanth Saldana PA-C [facility] [address] [place] [address] 10/31/2020 14:28:27 11/01/2020 09:28:09 Type 1 diabetes mellitus 15415216 E10.9 Mixed hypercholesterolemia and hypertriglyceridemia 835954600 E78.2 Gastro-eso phageal reflux disease with esophagitis 479416585 K21.00 Viral gastroenteritis 11 9773864 A08.19 [id number] Prashanth Saldana PA-C [facility] [address] [place] [address] 01/10/2021 16:45:57 01/18/2021 07:34:35 [id number] Prashanth Saldana PA-C [facility] [address] [place] [address] 05/09/2021 10:30:53 05/09/2021 11:54:35 Type 1 diabetes mellitus without complication 725667856 E10.9 [id number] Jeaneth Hamm MA [facility] [address] [place] [address] 06/07/2021 16:49:31 06/07/2021 16:56:56 Nausea and vomiting 40239004 R11.2 Javier ordered Diphenhydr amine, was administer ed and pt was advised if didn't help to go to ER, voiced understand ing [id number] Prashanth Saldana PA-C [facility] [address] [place] [address] 11/13/2021 14:35:16 11/13/2021 15:33:50 Type 1 diabetes mellitus 94731234 E10.9 Body mass index 20-24 - normal 541548175 Z68.23 Plantar fasciitis 644612 003 M72.2 [id number] Prashanth Saldana PA-C [facility] [address] [place] [address] 05/30/2022 11:23:14 05/30/2022 12:00:41 Type 1 diabetes mellitus 15623234 E10.9 Diabetic p eripheral neuropathy 163988452 E11.40 Anxiety 49881089 F41.9 Gastroesop hageal reflux disease without esophagitis 007174433 K21.9 Nausea and vomiting 1693 2000 R11.2 Javier ordered Diphenhydr amine, was administer ed and pt was advised if didn't help to go to ER, voiced understand ing Gastropare sis due to type 1 diabetes mellitus 879088221 E10.43 [id number] Prashanth Saldana PA-C [facility] [address] [place] [address] 12/18/2022 14:17:54 12/19/2022 14:24:56 Type 1 diabetes mellitus 39015614 E10.9 Persistent insomnia 1919 14611 G47.09 Mixed anxi ety and depressive disorder 202930930 F41.8 Overweight 101302178 E66 .3 [id number] Prashanth Saldana PA-C [facility] [address] [place] [address] 04/16/2023 15:00:29 04/17/2023 14:26:08 Type 1 diabetes mellitus 15145926 E10.9 Marijuana user 107215780 F12.10 Overweight 592787015 E66 .3 [id number] Jeaneth Hamm MA [facility] [address] [place] [address] 09/03/2024 11:45:12 09/07/2024 14:32:03 Mixed hypercholesterolemia and hypertriglyceridemia 507007414 E78.2 Type 1 ignacio betes mellitus 71915026 E10.9 Body mass index 20-24 - normal 376421951 Z68.23 Health Concerns Section Related Observation LastModified by Organization Detai ls LastModified Time None Recorded Concern Status LastModified by Organization Details LastModified Time None Recorded Advance Directives Directive None Recorded Payers Encounter Date Sequence Insurance Name Policy Number Policy Blankenship Covered Member ID Blankenship Member ID Guarantor Name 11/13/2021 1 [facility] (MEDICAID HMO) [id number] Peter Shore [id number] Peter Shore 05/30/2022 1 [facility] (MEDICAID HMO) [id number] Peter Shore [id number] Peter Shore 12/18/2022 1 [facility] (MEDICAID HMO) [id number] Peter Shore [id number] Peter Shore 04/16/2023 1 [facility] (MEDICAID HMO) [id number] Peter Shore [id number] Peter Shore 09/03/2024 1 [facility] (MEDICAID HMO) [id number] 0003 Peter Shore [id number] Peter Shore Notes Date Note Type Note Provider Name and Address Organization Details Recorded Time 11/13/2021 text/html follow up on diabetes...also has bilateral temporal swelling that has been present for 3 days...some tenderness and some visual changes...feet are very painful by the end of the night... Prashanth Saldana PA-C Attn: [address] [place], [address], [facility] 11/13/2021 15:31:10 05/30/2022 text/html hx of type 1...frequent crashes...hx of gastroparesis...gibson s pain and acidic belching..sugar currently 134...hasnt taken his GERD meds yet... Prashanth Saldana PA-C Attn: [address] [place], [address], [facility] 05/30/2022 11:57:53 12/18/2022 text/html says he cannot sleep...watches movies all night...says his stress levels are high...GERD is present....still smokes a lot of weed...says he gets bored and everybody stresses him out without weed Prashanth Saldana PA-C Attn: [address] [facility], [place], [address], [facility] 12/18/2022 14:47:31 04/16/2023 text/html smoked weed.. to ok a nap ..came in and appears stoned.. (when asked about weed grandmother said no and patient said yes)...reports that he has an upcoming appt with endo in april Prashanth Saldana PA-C Attn: [address] [facility], [place], [address], [facility] 04/16/2023 15:47:33 09/03/2024 text/html annual check up...says he quit etoh...says he is living healthier..has gained weight...says blood sugars are better...Nay Hamm MA [facility], [facility] 09/03/2024 12:18:11
--- OUTSIDE RECORDS SUMMARY | 2024-11-03 16:12 | XMS_ITS | Encounter Summary ---
Author Organization [facility] Healthcare Address [address] [place] [address] Care Team Providers Care Reactor Service Operator Name Role Phone Con Beltrán MD Unavailable [phone] Prashanth Saldana Primary Care Provider [phone] Sidney Russell MD Unavailable [phone] Reason for Visit * Reason Comments Abdominal Pain Encounter Details Date Type Department Care Team (Late st Contact Info) Description 11/03/2024 1:15 PM CDT - 11/03/2024 2:44 PM CDT Emergency [facility] Emergency Department [address] [place] [address] Discharge Disposition: Left Against Medical Advice Social [...] on file 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 2 Third Age G7 Sensor device 1 Device continuously . Change every 10 days. E11.65 10 each 3 4 gabapentin (NEURONTIN) 300 mg capsule Take 1 capsule (300 mg total) by mouth 2 (two) times a day as needed (Patient reports taking this medication only as PRN) insulin glargine 100 unit/mL (3 mL) pen for injection Inject 13 Units under the skin daily E10.65 use for insulin pump faillure. Pump has failed. 15 mL 11 3 insulin lispro (HumaLOG) 100 unit/mL vial for injection INJECT UP TO 100 UNITS DAILY PER INSULIN PUMP SETTINGS 30 mL 4 4 lancets misc 1 each by other route 3 (three) times a day before meals E10.65 100 each 11 3 metoclopramide (REGLAN) 10 mg tablet Take 1 tablet (10 mg total) by mouth 4 (four) times a day as needed naproxen (NAPROSYN) 500 mg tablet Take 1 tablet (500 mg total) by mouth 2 (two) times a day as needed 2 ondansetron (ZOFRAN) 4 mg tablet TAKE 1-2 TABLETS BY MOUTH EVERY 8 HOURS NEEDED FOR NAUSEA - 1ST LINE. 2 ondansetron ODT (ZOFRAN-ODT) 4 mg disintegrating tablet DISSOLVE 1 TABLET EVERY 6 HOURS NEEDED FOR NAUSEA AND VOMITING [address] (PROTONIX) 40 mg EC tablet Take 1 tablet (40 mg total) by mouth daily 4 pen needle, diabetic 32 gauge x needle Use to inject insulin daily. E10.65 50 each 11 3 traMADoL (ULTRAM) 50 mg tablet Take 1 tablet (50 mg total) by mouth every 6 (six) hours as needed for pain for up to 15 days 15 tablet 4 documented as of this encounter Discharge Disposition Disposition Code Departure Means Destination Left Against Medical Advice documented in this encounter ED Notes * Carolina Bautista RN - 11/03/2024 1:20 PM CDT Pt arrives with c/o abdominal pain x 1 month worsening today. Pt was admitted last month for this but isn't sure what the diagnosed him with. Was told to follow-up with GI. Hx Type I diabetes documented in this encounter Plan of Treatment Scheduled Orders Name Type Priority Associated Diagnoses Orde r Schedule Urinalysis reflex to microscopic and culture Urine Microbiology STAT STAT for 1 Occurrences starting 11/03/2024 until 11/03/2024 documented as of this encounter Procedures Procedure Name Priority Date/Time Associated Diagnosis Comments SEPSIS LACTATE WITH REFLEX STAT 11/03/2024 1:33 PM CDT BLOOD GAS, VENOUS STAT 11/03/2024 1:3 3 PM CDT EGFR STAT 11/03/2024 1:31 PM CDT DIFFERENTIAL AUTO STAT 11/03/2024 1:3 1 PM CDT CBC WITH AUTO DIFFERENTIAL STAT 11/03/2024 1:31 PM CDT LIPASE STAT 11/03/2024 1:31 PM CDT COMPREHENSIVE METABOLIC PANEL STAT 11/03/2024 1:31 PM CDT documented in this encounter Results * Blood gas, venous (11/03/2024 1:33 PM [...] ORDERABLES Final Res ult Performing Organization Address City/[facility]/ZIP Co de Phone Number [facility] [address] [facility] [place] [address] * Sepsis Lactate w/ Reflex (11/03/2024 1:33 PM CDT) Sepsis Lactate 1.2 0.7 - 2.0 mmol/L Blood 11/03/2024 1:33 PM CDT 11/03/2024 1:36 PM CDT Chato Daniels MD LAB BLOOD ORDERABLES Final Res ult [facility] [address] [facility] [place] [address] * eGFR (11/03/2024 1:31 PM CDT) eGFR [...] LAB BLOOD ORDERABLES Final Res ult [facility] 1 [facility] Department [place] [address] * Differential, auto (11/03/2024 1:31 PM CDT) [...] LAB BLOOD ORDERABLES Final Res ult [facility] 1 [facility] [place] [address] * Lipase (11/03/2024 1:31 PM CDT) Lipase 11 10 - 99 Units/L Blood Venous blood specimen / Unknown 11/03/2024 1:31 PM CDT 11/03/2024 1:37 PM CDT us Chato Daniels MD LAB BLOOD ORDERABLES Final Res ult [facility] [place] [address] * Comprehensive metabolic panel (11/03/2024 1:31 PM [...] Final Res ult [facility] 1 [facility] [employer] [place] [address] * CBC with auto differential (11/03/2024 1:31 [...] 0.00 0.00 - 0.01 K/cumm [facility] Blood Venous blood specimen / Unknown 11/03/2024 1:31 PM CDT 11/03/2024 1:37 PM CDT us Chato Daniels MD LAB BLOOD ORDERABLES Final Res ult [facility] [address] [facility] [place] [address] documented in this encounter Visit Diagnoses Not on filedocumented in this encounter Orders Nursing Count Last Ordered Date First Orde red Date MISCELLANEOUS NURSING CARE ORDER (SPECIFY) 1 11/03/2024 IV Count Last Ordered Date First Orde red Date SALINE LOCK IV 1 11/03/2024 documented in this encounter Care Teams Reactor Service Operator Relationship Specialty Start Date End Date Prashanth Saldana PA [address] [place] [address] PCP - General Family Practice 05/25/20 Con Beltrán MD Referring Physician Pediatric Endocrinology 12/20/18 Sidney Russell MD [address] [place] [address] Consulting Physician Gastroenterology 04/19/21 documented as of this encounter
== END 2024-11-03 16:15 | disposition home or self-care (01) ==
PROVIDERS: Emergency Provider Registered Nurse; PCP Physician Assistant
DX: K52.9 Noninfective gastroenteritis and colitis, unspecified (principal); E10.43 Type 1 diabetes mellitus with diabetic autonomic (poly)neuropathy; K31.84 Gastroparesis; Z79.4 Long term (current) use of insulin; Z20.822 Contact with and (suspected) exposure to COVID-19; Z96.41 Presence of insulin pump (external) (internal); E78.00 Pure hypercholesterolemia, unspecified; F12.90 Cannabis use, unspecified, uncomplicated
CPT/HCPCS: 87426; 87804; 99212; G0463

== ENCOUNTER 2024-12-22 10:16 | Emergency (ER) | payer OTHER, SELFPAY ==
[2024-12-22 10:23] VITALS: BP 176/104; PULSE 115; RESP 20; TEMP 36.8; O2SAT 100
--- OUTSIDE RECORDS SUMMARY | 2024-12-22 10:34 | XMS_ITS | Encounter Summary ---
Author Organization [facility] Healthcare Address [address] [place] [address] Care Team Providers Care State Farm Agent Team Member Name Role Phone Con Beltrán MD Unavailable [phone] Prashanth Saldana Primary Care Provider [phone] Sidney Russell MD Unavailable [phone] Encounter Details Date Type Department Care Team (Late st Contact Info) Description 12/21/2024 Telephone [facility] Gastroenterology at [address] [place] [address] Evelin Fischer MA Social History Tobacco Use Types Packs/Day Years Used Date Smoking Tobacco: Every Day Vaping Smokeless Tobacco: Never Alcohol Use Standard Drinks/Week Comments No 0 (1 standard drink = 0.6 oz pur e alcohol) [facility] Utilities Answer Date Recorded In the past 12 months has [employer], gas, oil, or water company threatened to shut off services in your home? No 12/02/2024 Social Connection and Isolat ion Panel [NHANES] Answer Date Recorded In a typical week, how many times do you talk on the phone with family, friends, or neighbors? More than three times a week 12/02/2024 How often do you get togethe r with friends or relatives? More than three times a week 12/02/2024 How often do you attend chur ch or buddhist services? Never 12/02/2024 Do you belong to any clubs o r organizations such as worship groups, unions, fraternal or athletic groups, or school groups? No 12/02/2024 How often do you attend meet ings of the clubs or organizations you belong to? Never 12/02/2024 Are you , , di vorced, , never , or living with a partner? Never 12/02/2024 AUDIT-C Answer Date Recorded Q1: How often do you have a drink containing alcohol? Never 12/17/2024 Q2: How many drinks containi ng alcohol do you have on a typical day when you are drinking? Patient does not drink Q3: How often do you have si x or more drinks on one occasion? Never 12/17/2024 Overall Financial Resource Strain (CARDIA) Answe r Date Recorded How hard is it for you to pa y for the very basics like food, housing, medical care, and heating? Somewhat hard 12/02/2024 PHQ-2 Answer Date Recorded PHQ-2 Score 0 03/13/2019 Hunger Vital Sign Answer Date Recorded Within the past 12 months, y ou worried that your food would run out before you got the money to buy more. Never true 12/03/19 25 Within the past 12 months, t he food you bought just didn't last and you didn't have money to get more. Never true 12/02/2024 PRAPARE - Transportation Answer Date Re corded In the past 12 months, has l ack of transportation kept you from medical appointments or from getting medications? No 11/19 In the past 12 months, has l ack of transportation kept you from meetings, work, or from getting things needed for daily living? No 12/02/2024 Housing Stability Vital Sign Answer Eloy e Recorded In the last 12 months, was t here a time when you were not able to pay the mortgage or rent on time? No 12/02/2024 In the past 12 months, how m any times have you moved where you were living? 0 12/02/2024 At any time in the past 12 m [facility], were you homeless or living in a long term (including now)? No 12/02/2024 Personal Safety Answer Date Recorded Have you ever been in or are you currently in a harmful physical or emotional relationship or is someone making you feel afraid or unsafe? 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 * Telephone Encounter - Evelin Fischer MA - 12/21/2024 9:25 AM CDT Shonda called stating that Peter is at work exp extreme abd pain and is wanting to go home and rest but he would need a drs note to excuse him, please advise. documented in this encounter Plan of Treatment Upcoming Encounters Date Type Department Care Team (Latest Contact Info) Description 02/16/2025 12:30 PM CDT Hospital Encounter [address] [address] Sidney Russell MD [address] [place] [address] DR [address] [place] [address] 02/16/2025 12:30 PM CDT - 02/16/2025 12:45 PM CDT Surgery [address] [address] Sidney Russell MD [address] [facility] [address] [place] [address] ESOPHAGOGASTRODUODENOSCOPY Scheduled Procedures Name Priority Associated Diagnoses Date/Ti tx ESOPHAGOGASTRODUODENOSCOPY Nausea and vomiting, unspecified vomiting type Abnormal CT scan, esophagus 02/16/2025 12:30 PM CDT documented as of this encounter Visit Diagnoses Not on filedocumented in this encounter Care Teams State Farm Agent Team Member Relationship Specialty Start Date End Date Prashanth Saldana PA [address] [place] [address] PCP - General Family Practice 05/25/20 Con Beltrán MD Referring Physician Pediatric Endocrinology 12/20/18 Sidney Russell MD [address] [place] [address] Consulting Physician Gastroenterology 04/19/21 documented as of this encounter
--- OUTSIDE RECORDS SUMMARY | 2024-12-22 10:35 | XMS_ITS | Encounter Summary ---
Author Organization [facility] Address [address] [place] [address] [address] Phone Care Team Providers Care Professional Skater Name Role Phone Parshanth Saldana Primary Care Provider [phone] Heidi Swift MD Unavailable Reason for Visit * Reason Comments Medication Refill Encounter Details Date Type Department Care Team (Late st Contact Info) Description 12/27/2021 Refill [facility] - Endocrinology - [place] [address] [place] [address] Heidi Swift MD [address] [address] Medication Refill Social History [...] Notes * Telephone Encounter - Saadia Lawson, [facility] - 12/29/2021 11:37 AM CDT Patient calling requesting refill of: Requested Prescriptions Pending Prescriptions Disp Refills ??? 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 [...] Respiratory Rule-Out 05/17/2022 05/17/2022 022 12:16 AM DRY LUMBER GRADER COVID - 19 06/27/2022 06/27/2022 07/07/2022 12:1 6 AM DRY LUMBER GRADER Influenza 06/27/2022 06/27/2022 07/04/2022 12:1 6 AM DRY LUMBER GRADER COVID - 19 04/05/2024 04/05/2024 04/05/2024 10:2 0 PM CDT COVID - 19 10/16/2024 10/16/2024 10/16/2024 7:05 AM CDT documented as of this encounter Care Teams Professional Skater Relationship Specialty Start Date End Date Prashanth Saldana PAC [address] [place] [address] PCP - General Physician Data Software Engineer 04/03/19 Heidi Swift MD [address] [address] Consulting Physician Endocrinology 08/09/20 09/23/24 documented as of this encounter
--- OUTSIDE RECORDS SUMMARY | 2024-12-22 10:35 | XMS_ITS | Encounter Summary ---
Author Organization [facility] Address [address] [place] [address] Phone Care Team Providers Care Wound Care Coordinator Name Role Phone Prashanth Saldana Primary Care Provider [phone] Heidi Swift MD Unavailable Reason for Visit * Reason Comments Medication Refill Encounter Details Date Type Department Care Team (Late st Contact Info) Description 09/17/2021 Refill [facility] - Endocrinology - [place] [address] [place] [address] Heidi Swift MD [address] [address] Medication Refill Social History Tobacco [...] Eli Jones RN - 09/19/2021 3:39 PM SIFTING OPERATOR Requested Prescriptions Pending Prescriptions Disp Refills ??? Continuous Blood Gluc Transmit (Dexcom G6 Transmitter) Misc [Pharmacy Med Name: DEXCOM G6 TRANSMITTER] 3 Si EACH BY DOES NOT APPLY ROUTE EVERY 90 DAYS. CHANGE SENSOR EVERY 90 DAYS. Next appt: Message sent to schedule follow up. ING OPERATOR documented in this encounter Plan of [...] Respiratory Rule-Out 05/17/2022 05/17/2022 022 12:16 AM SIFTING OPERATOR COVID - 19 06/27/2022 06/27/2022 07/07/2022 12:1 6 AM SIFTING OPERATOR Influenza 06/27/2022 06/27/2022 07/04/2022 12:1 6 AM SIFTING OPERATOR COVID - 19 04/05/2024 04/05/2024 04/05/2024 10:2 0 PM CDT COVID - 19 10/16/2024 10/16/2024 10/16/2024 7:05 AM CDT documented as of this encounter Care Teams Wound Care Coordinator Relationship Specialty Start Date End Date Prashanth Saldana PAC [address] [place] [address] PCP - General Physician Outside Laborer 04/03/19 Heidi Swift MD [address] [address] Consulting Physician Endocrinology 08/09/20 09/23/24 documented as of this encounter
--- OUTSIDE RECORDS SUMMARY | 2024-12-22 10:35 | XMS_ITS | Encounter Summary ---
Author Organization [facility] Address [address] [place] [address] Phone Care Team Providers Care Engraver Jewelry Name Role Phone Prashanth Saldana Primary Care Provider [phone] Heidi Switf MD Unavailable Reason for Visit * Reason Comments Medication Refill Encounter Details Date Type Department Care Team (Late st Contact Info) Description 08/28/2021 Refill [facility] - Endocrinology - [place] [address] [place] [address] Heidi Swift MD [address] [address] Medication Refill Social History Tobacco [...] Coronavirus / COVID-19? Yes 08/01/2021 9:49 AM RETAIL LOAN OFFICER documented as of this encounter Miscellaneous Notes * Telephone Encounter - Eli Jones RN - 08/28/2021 9:00 AM RETAIL LOAN OFFICER Requested Prescriptions Pending Prescriptions Disp Refills ??? insulin lispro (HumaLOG) 100 UNIT/ML Solution [Pharmacy Med Name: HUMALOG 100 UNIT/ML VIAL] 30 mL 0 Sig: UP TO 100 UNITS/DAY PER INSULIN PUMP SETTINGS Next appt: 09/12/2021 [place] LOAN OFFIC[place] documented in this encounter Plan of Treatment Not on file documented as of this encounter Visit Diagnoses Not on filedocumented in this encounter Additional Health Concerns Infection Onset Date Last Indicated Resolved Time COVID - 19 04/13/2022 04/13/2022 04/13/2022 10:4 2 AM CDT COVID - 19 05/17/2022 05/17/2022 05/27/2022 12:1 6 AM CDT Respiratory Rule-Out 05/17/2022 05/17/2022 022 12:16 AM RETAIL LOAN OFFICER COVID - 19 06/27/2022 06/27/2022 07/07/2022 12:1 6 AM RETAIL LOAN OFFICER Influenza 06/27/2022 06/27/2022 07/04/2022 12:1 6 AM RETAIL LOAN OFFICER COVID - 19 04/05/2024 04/05/2024 04/05/2024 10:2 0 PM CDT COVID - 19 10/16/2024 10/16/2024 10/16/2024 7:05 AM CDT documented as of this encounter Care Teams Engraver Jewelry Relationship Specialty Start Date End Date Prashanth Saldana PAC [address] [place] [id number] PCP - General Physician Avionics Safety Inspector 04/03/19 Heidi Swift MD [address] [id number] Consulting Physician Endocrinology 08/09/20 09/23/24 documented as of this encounter
--- OUTSIDE RECORDS SUMMARY | 2024-12-22 10:35 | XMS_ITS | Encounter Summary ---
Author Organization [facility] Address [address] [place] [address] Phone Care Team Providers Care Toe Trimmer Name Role Phone Prashanth Saldana Primary Care Provider [phone] Heidi Swift MD Unavailable Reason for Visit * Reason Comments Medication Refill Encounter Details Date Type Department Care Team (Late st Contact Info) Description 07/24/2021 Refill [facility] - Endocrinology - [place] [address] [place] [address] Heidi Swift MD [address] [address] Medication Refill Social History Tobacco [...] COVID-19? No / Unsure 07/07/2021 3:14 PM [employer] documented as of this encounter Miscellaneous Notes * Telephone Encounter - Eli Jones RN - 07/25/2021 8:10 AM [employer] Requested Prescriptions Pending Prescriptions Disp Refills ??? Continuous Blood Gluc Sensor (Dexcom G6 Sensor) Misc [Pharmacy Med Name: DEXCOM G6 SENSOR] Sig: CHANGE SENSOR EVERY 10 DAYS. Next appt: 08/01/2021 [facility] [employer] [address] documented in this encounter Plan of Treatment [...] Respiratory Rule-Out 05/17/2022 05/17/2022 022 12:16 AM [employer] COVID - 19 06/27/2022 06/27/2022 07/07/2022 12:1 6 AM [employer] Influenza 06/27/2022 06/27/2022 07/04/2022 12:1 6 AM [employer] COVID - 19 04/05/2024 04/05/2024 04/05/2024 10:2 0 PM CDT COVID - 19 10/16/2024 10/16/2024 10/16/2024 7:05 AM CDT documented as of this encounter Care Teams Toe Trimmer Relationship Specialty Start Date End Date Prashanth Saldana [facility] [address] [place] [address] PCP - General Physician Yolk Spray Drier 04/03/19 Heidi Swift MD [address] [address] Consulting Physician Endocrinology 08/09/20 09/23/24 documented as of this encounter
--- OUTSIDE RECORDS SUMMARY | 2024-12-22 10:35 | XMS_ITS | Clinical Summary ---
Author Organization [facility] Address [address] [place] [address] Care Team Providers Care Customer Support Consultant Name Role Phone Unavailable Primary Care Provider Unavailabl e Source Comments [facility],non-owned Affiliates and Associated Physician Practices is amultiple site organization consisting of ambulatory clinics and hospital sitesin [place], [place], [place] and [place]. This disclosure is being madepursuant to the Care Everywhere program and may not contain all information available regarding this patient. Last updated 18.[facility] Allergies No known active allergies Medications * [...] A M CDT Height 170.2 cm (5' 7) 04/01/2020 11:47 AM CDT Body Mass Index 19.94 04/01/2020 11:47 AM CDT Plan of Treatment Health Maintenance Due Date Last Done Comments HIV SCREENING 2014 HPV VACCINE (1 - Male 3-dose series) 2014 HEPATITIS C SCREENING 08/22/2017 DTAP/TDAP/TD VACCINES (1 - Tdap) 2018 HEPATITIS B VACCINE (1 of 3 - 19+ 3-dose series) 2018 DIABETES-FOOT EXAM WITH MONOFILAMENT 04/01/2020 DIABETES-HGB A1C 09/29/2020 04/01/2020, 04/2020, 12/16/2018, Additional history exists DIABETES-SERUM CREATININE 04/02/20212019, 04/02/2020, 04/02/2020, Additional history exists COVID-19 VACCINE (1 - 2023- season) 2024 DEPRESSION SCREENING 07/22/2024 DIABETES - [...] mg/dL 04/02/2020 3:39 AM CDT [facility] Sodium 137 136 - 145 mmol/L 04/02/2020 3:39 AM CDT [facility] Potassium 3.0(L) 3.5 - 5.1 mmol/L 04/02/2020 3:39 AM CDT [facility] Chloride 104 98 - 107 mmol/L 04/02/2020 3:39 AM CDT [facility] CO2 20(L) 23 - 31 mmol/L 04/02/2020 3:39 AM CDT [facility] Calcium 9.0 8.4 - 10.4 mg/dL 04/02/2020 3:39 AM CDT [facility] Anion Gap 13 8 - 16 mmol/L 04/02/2020 3:39 AM CDT [facility] BUN 6(L) 8.9 - 20.6 mg/dL 04/02/2020 3:39 AM CDT [facility] Creatinine 0.86 0.72 - 1.25 mg/dL 04/02/2020 3:39 AM CDT [facility] eGFR by MDRD >60 >60 mL/min/1.7 3m2 04/02/2020 3:39 AM CDT [facility] eGFR by MDRD >60 >60 mL/min/1.7 3m2 04/02/2020 3:39 AM CDT [facility] Blood BLOOD SPECIMEN / Unknown Lab Venipuncture / Unknown 04/02/2020 3:06 AM CDT 04/02/2020 3:20 AM CDT Robinson Wilkins MD LAB - CHEMISTRY ORDERABLES F inal Result [facility] [address] [place] [address] * (ABNORMAL) HEMOGLOBIN A1C (04/01/2020 12:04 PM CDT) Hemoglobin A1c 8.9(H) 4.2 - 5.6 % 04/01/2020 1:31 PM CDT [facility] Estimated Average Glucose 209 mg/dL 04/01/2020 1:31 PM CDT [facility] Blood BLOOD SPECIMEN / Unknown Venipuncture / Unknown 04/01/2020 12:04 PM CDT 04/01/2020 12:08 PM CDT Narrative [facility] - 04/01/2020 1:31 PM CDT The following cutoff levels are recommended by [place] [employer]. A1c > 6.5% : considered [...] LAB - CHEMISTRY ORDERABLES F inal Result [facility] [address] [place] [address] from Last 3 Months or Most Recently Relevant to Health Maintenance Insurance [address] [place] [address] [facility] Advance Directives * Full Code (Latest Code Status on File) Date Activated Date Inactivated Comments 04/01/2020 1:52 PM 04/02/2020 1:54 PM
--- OUTSIDE RECORDS SUMMARY | 2024-12-22 10:35 | XMS_ITS | Encounter Summary ---
Author Organization [facility] Address [address] [place] [address] Care Team Providers Care Tdp Displays Analyst Name Role Phone Con Beltrán MD Unavailable [phone] Prashanth Saldana Primary Care Provider [phone] Sidney Russell MD Unavailable [phone] Encounter Details Date Type Department Care Team (Late st Contact Info) Description 10/27/2024 Results Follow-Up 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 Please call Peter. Tell him his microalbumin creatinine ratio is elevated to [id number]. The goal is for this to be [...] Description 02/16/2025 12:30 PM CDT Hospital Encounter [address] [address] Sidney Russell MD [address] [place] [address] DR OWENS [address] [place] [address] 02/16/2025 12:30 PM CDT - 02/16/2025 12:45 PM CDT Surgery [facility] Digestive [address] [address] Sidney Russell MD [address] [place] [address] DR OWENS [address] [place] [id number] ESOPHAGOGASTRODUODENOSCOPY Scheduled Procedures Name Priority Associated Diagnoses Date/Ti wi ESOPHAGOGASTRODUODENOSCOPY Nausea and vomiting, unspecified vomiting type Abnormal CT scan, esophagus 02/16/2025 12:30 PM CDT documented as of this encounter Visit Diagnoses Not on filedocumented in this encounter Additional Health Concerns Infection Onset Date Last Indicated Resolved Time COVID: Suspected 11/30/2024 11/30/2024 11/30/2024 9:17 AM CDT COVID: Suspected 12/02/2024 12/02/2024 12/02/2024 5:16 AM CDT documented as of this encounter Care Teams Tdp Displays Analyst Relationship Specialty Start Date End Date Prashanth Saldana PA [address] [place] [address] PCP - General Family Practice 05/25/20 Con Beltrán MD Referring Physician Pediatric Endocrinology 12/20/18 Sidney Russell MD [address] [place] [address] Consulting Physician Gastroenterology 04/19/21 documented as of this encounter
--- OUTSIDE RECORDS SUMMARY | 2024-12-22 10:35 | XMS_ITS | Clinical Summary ---
Author Organization [facility] Address [address] [place] [address] Phone Care Team Providers Care Vice President Of Advertising Name Role Phone Prashanth Saldana Primary Care Provider [phone] Allergies Active Allergy Reactions Criticality Noted Date Comments Haloperidol Shortness of Breath,Anxiety 024 Medications Insulin Syringe-Needle U-100 (INSULIN SYRINGE .5CC/31GX5/16) 31G X 5/16 0.5 ML Misc Three times a day 300 Each 3 07/01/20 19 Active Blood Glucose Monitoring Suppl Device Test four times daily 1 Each 11/30/19 20 Active Lancets Misc Test four times daily 400 Lancet 3 11/30/19 20 Active gabapentin (NEURONTIN) 300 MG Capsule Take 100 mg by mouth 3 times daily as needed for Other (neuropathy ). 09/24/19 21 Active Insulin Pen Needle (TechLite Pen Dimmitt) 31G X 8 MM Misc USE TO INJECT INSULIN 4 TIMES A DAY 400 Pen Needle 3 12/07/19 21 Active metoclopramide (REGLAN) 10 MG Tablet Take 1 Tablet by mouth 4 times daily as needed for Nausea - 2nd line. 10 Tablet 07/07/20 21 Active Continuous Blood Gluc Transmit (Dexcom G6 Transmitter) MiscIndications: Type 1 diabetes mellitus without complication 1 EACH BY DOES NOT APPLY ROUTE EVERY 90 DAYS. CHANGE SENSOR EVERY 90 DAYS. 1 Each 3 09/20/19 22 Active Glucose Blood (OneTouch Ultra) Strip TEST FOUR TIMES DAILY 300 Strip 5 11/08/19 22 Active ondansetron (Zofran ODT) 4 MG TABLET DISPERSIBLE Take 1 Tablet by mouth every 8 hours as needed for Nausea - 1st line. 10 Tablet 12/09/19 22 Active Continuous Blood Gluc Real Estate Assistant (Dexcom G6 Real Estate Assistant) Device USE TO CHECK GLUCOSE 4X DAILY. 1 Each 01/20/20 22 Active Continuous Blood Gluc Sensor (Dexcom G6 Sensor) MiscIndications: Type 1 diabetes mellitus without complication CHANGE SENSOR EVERY 10 DAYS 3 Each 1 02/20/20 22 Active insulin lispro (HumaLOG) 100 UNIT/ML Solution INJECT UP TO 100 UNITS DAILY PER INSULIN PUMP SETTINGS. 30 mL 04/17/20 22 Active busPIRone (BUSPAR) 10 MG Tablet Take 10 mg by mouth 2 times daily. Active Continuous Glucose Sensor (Dexcom G7 Sensor) Misc 1 Device by Other route continuous. 02/12/20 24 Active pantoprazole (PROTONIX) 40 MG Tablet Delayed Response Take 1 Tablet by mouth daily. 30 Tablet 04/06/20 24 Active prochlorperazine (COMPAZINE) 25 MG Suppository 25 mg by Rectal route every 12 hours as needed for Nausea - 1st line. Active ondansetron (ZOFRAN-ODT) 4 MG TABLET DISPERSIBLE Take 1 Tablet by mouth every 8 hours as needed for Nausea - 1st line. 20 Tablet 12/17/19 25 Active ondansetron (ZOFRAN-ODT) 4 MG TABLET DISPERSIBLE Take 1 Tablet by mouth every 8 hours as needed for Nausea - 1st line. 20 Tablet 12/17/19 25 025 Discontinued Active Problems Problem Noted Date Diagnosed Date [...] Encounters Date Type Department Care Team Description 12/16/2024 10:35 AM CDT - 12/16/2024 12:42 PM CDT Emergency [facility] Emergency [address] [place] [address] Marquis Soni DO Gastroparesis Discharge Disposition: Discharged to home or Selfcare 12/16/2024 Travel 10/16/2024 2:21 AM CDT - 10/16/2024 8:15 AM CDT Hospital Encounter [facility] Medical/Surgical Intensive Care [address] [place] [address] Mayur Mcdonough MD Carmicheal, MD Cindy Wright Behfar, MD Diabetic ketoacidosis without coma associated with type 1 diabetes mellitus (HCC) Discharge Disposition: Left Against Medical Advice 10/16/2024 Travel from Last 3 Months Immunizations Immunization Administration Dates Next Due [id number] kiersten MCV4, Unspecif ied Formulation 04/17/2012 DTAP [...] drink = 0.6 oz pur e alcohol) [facility] Utilities Answer Date Recorded In the past 12 months has e F2G, gas, oil, or water [employer] threatened to shut off services in your [...] often do you attend chur ch or moravian services? Never 10/16/2024 Do you belong to any clubs o r organizations such as gnosticist groups, unions, fraternal or athletic groups, or [...] medical care, and heating? Somewhat hard 10/16/2024 [facility] - Occupational Stress [...] place to sleep or slept in a mcc (including now)? No 12/07/2023 Housing Stability Vital Sign Answer Eloy e Recorded In the last 12 months, was t here a time when you were not able to pay the mortgage or rent on time? No 10/16/2024 In the past 12 months, how m any times have you moved where you were living? 1 10/16/2024 At any time in the past 12 m [facility], were you homeless or living in a mcc (including now)? No 10/16/2024 Sexually Active Control Partners Comments Yes Female Sex and Gender Information Value Date Recorded Sex Assigned at Not on file Legal Sex Male 8:12 PM CDT Gender Identity Not on file Sexual Orientation Not on file Last Filed Vital Signs Vital Sign Reading Time Taken Comments Blood Pressure 121/69 12/16/2024 12:30 PM CDT Pulse 67 12/16/2024 11:45 AM CDT Temperature 36.3 C (97.3 F) 12/16/2024 10:44 AM CDT Respiratory Rate 28 12/16/2024 12:30 PM CDT Oxygen Saturation 99% 12/16/2024 11:45 AM CDT Inhaled Oxygen Concentration - - Weight 76.2 kg (168 lb) 12/16/2024 10:40 AM CDT Height 170.2 cm (5' 7) 12/16/2024 10:40 AM CDT Body Mass Index 26.31 12/16/2024 10:40 AM CDT Plan of Treatment Health Maintenance [...] 04/17/2012, Additional history exists Diabetes: Hemoglobin A1c 06/02/2025 025, 10/16/2024, 09/03/2024, Additional history exists Diabetes: Nephropathy Screening 12/16/2025 12/16/2024, 10/16/2024, 12/07/2023, Additional history exists Respiratory Syncytial Virus (RSV) Immunization (Adult) (1 - 1-dose 75+ series) 2074 Hepatitis B Immunization Completed 000, 03/13/2000, 1999, Additional history exists Human Papillomavirus (HPV) Immunization Completed 05/09/2016, 03/23/2015, 05/27/2014 Meningococcal Immunization (ACWY) Completed 05/09/2016, 04/17/2012 Rotavirus Immunization Aged Out No lo nger eligible based on patient's age to complete this topic Procedures Procedure Name Priority Date/Time Associated Diagnosis Comments TROPONIN I, HIGH SENSITIVITY (HSTRP) STAT 12/16/2024 12:18 PM CDT XR CHEST SINGLE VIEW PORTABLE STAT 12/16/2024 11:28 AM CDT TEST FOR ACETONE/KETONES STAT 12/16/2024 11:08 AM CDT CBC WITH AUTO DIFFERENTIAL STAT 12/16/2024 10:55 AM CDT COMPLETE BLOOD COUNT (CBC) WITH DIFF STAT 12/16/2024 10:55 AM CDT LIPASE STAT 12/16/2024 10:55 AM CDT TROPONIN I, HIGH SENSITIVITY (HSTRP) STAT 12/16/2024 10:55 AM CDT CMP (COMPREHENSIVE METABOLIC PANEL) STAT 12/16/2024 10:55 AM CDT POCT GLUCOSE STAT 12/16/2024 10:46 AM CDT EKG 12 LEAD STAT 12/16/2024 10:41 AM CDT EKG 12 LEAD STAT 12/16/2024 10:35 AM CDT EKG SCAN 12/16/2024 12:00 AM CDT POCT GLUCOSE Routine 10/16/2024 8:03 AM CDT [...] CDT LIPID PANEL Routine 06/24/2019 5:44 AM SINGLE PASS SOIL STABILIZER OPERATOR from Last 3 Months or Most Recently Relevant to Health Maintenance Results * TROPONIN I, HIGH SENSITIVITY (HSTRP) (12/16/2024 12:18 PM CDT) Only the most recent of2 resultswithin the time period is included. Pathologist [facility] [place] TROPONIN I, HIGH SENSITIVITY- ALEMAN 3 <=35 ng/L 12/16/2024 1:03 PM CDT [facility] Comment: High-sensitivity troponin I results are reported in ng/L making the result appear to be 1,000 times higher than the contemporary troponin I value which is reported in ng/ml. Results from [place]. Blood Venipuncture / Unknown 12/16/2024 12:18 PM CDT 12/16/2024 12:33 PM CDT us Marquis Soni DO CHEMISTRY ORDERABLES Fi nal Result [facility] [address] [place] [address] * XR CHEST SINGLE VIEW PORTABLE (12/16/2024 11:28 AM CDT) Only the most recent of2 resultswithin the time period is included. Anatomical Region Laterality Modality Chest N/A Computed Radiogr aphy 12/16/2024 1:24 PM CDT Impressions 12/16/2024 1:27 PM CDT IMPRESSION: Minimal bibasilar subsegmental atelectasis. Otherwise, no acute cardiopulmonary abnormality. Narrative 12/16/2024 1:27 PM CDT EXAM DESCRIPTION: XR CHEST SINGLE VIEW PORTABLE REASON FOR STUDY: Dyspnea, sternal chest pain, dizziness, nausea, vomiting x 2 today- HX HTN TECHNIQUE: Portable upright AP radiographic view(s) of the chest. COMPARISON: October 16, 2024 FINDINGS: LUNGS: Minimal bibasilar subsegmental atelectasis. Otherwise, no focal opacity, pleural effusion, or pneumothorax. HEART/MEDIASTINUM: Cardiac silhouette normal in size. Mediastinal and hilar contours appear normal. LINES/TUBES: None. BONES: No acute osseous abnormality. THIS IS AN ELECTRONICALLY VERIFIED FINAL REPORT 12/16/2024 1:24 PM - Electronically signed by Tristin Pretty M.D. RB: RB Report ID: [id number] Reading Location: [id number] Procedure Note Tristin Pretty MD - 12/16/2024 EXAM DESCRIPTION: XR CHEST SINGLE VIEW PORTABLE REASON FOR STUDY: Dyspnea, sternal chest pain, dizziness, nausea, vomiting x 2 today- HX HTN TECHNIQUE: Portable upright AP radiographic view(s) of the chest. COMPARISON: October 16, 2024 FINDINGS: LUNGS: Minimal bibasilar subsegmental atelectasis. Otherwise, no focal opacity, pleural effusion, or pneumothorax. HEART/MEDIASTINUM: Cardiac silhouette normal in size. Mediastinal and hilar contours appear normal. LINES/TUBES: None. BONES: No acute osseous abnormality. THIS IS AN ELECTRONICALLY VERIFIED FINAL REPORT 12/16/2024 1:24 PM - Electronically signed by Tristin Pretty M.D. RB: RB Report ID: [id number] Reading Location: [id number] IMPRESSION: Minimal bibasilar subsegmental atelectasis. Otherwise, no acute cardiopulmonary abnormality. us Marquis Soni DO IMG DIAGNOSTIC ORDERABL ES Final Result * ACETONE QUAL (12/16/2024 11:08 AM CDT) ACETONE Negative Negative 12/16/2024 11:29 AM CDT [facility] Blood Venipuncture / Unknown 12/16/2024 11:08 AM CDT 12/16/2024 11:14 AM CDT us Marquis Soni DO CHEMISTRY ORDERABLES Fi nal Result [facility] [address] [place] [address] * (ABNORMAL) CBC with Auto Differential (12/16/2024 10:55 AM CDT) Only the most recent of2 resultswithin the time period is included. Pathologist [facility] [place] WBC 8.66 4.00 - 12.00 10(3)/mcL 12/16/2024 11:17 AM CDT [facility] RBC 4.50 4.40 - 5.80 10(6)/[facility] 12/16/2024 11:17 AM CDT [facility] HEMOGLOBIN (HGB) 13.0 13.0 - 16.5 g/dL 12/16/2024 11:17 AM CDT [facility] HEMATOCRIT (HCT) 39.3 38.0 - 50.0 % 12/16/2024 11:17 AM CDT [facility] MCV 87.3 82.0 - 96.0 fL 12/16/2024 11:17 AM CDT [facility] MCH 28.9 26.0 - 32.0 pg 12/16/2024 11:17 AM CDT [facility] MCHC 33.1 31.0 - 36.0 g/dL 12/16/2024 11:17 AM CDT [facility] PLATELET COUNT 308 140 - 440 10(3)/mcL 12/16/2024 11:17 AM CDT [facility] RDW 13.3 11.8 - 15.5 % 12/16/2024 11:17 AM CDT [facility] MPV 10.1 8.0 - 12.6 fL 12/16/2024 11:17 AM CDT [facility] NEUTROPHILS 80.7(H) 40.0 - 68.0 % 12/16/2024 11:17 AM CDT [facility] LYMPHOCYTES 14.4(L) 19.0 - 49.0 % 12/16/2024 11:17 AM CDT [facility] MONOCYTES 3.9 3.0 - 13.0 % 12/16/2024 11:17 AM CDT [facility] EOSINOPHILS 0.3 0.0 - 8.0 % 12/16/2024 11:17 AM CDT [facility] BASOPHILS 0.7 0.0 - 1.0 % 12/16/2024 11:17 AM CDT [facility] ABSOLUTE NEUTROPHILS 6.98(H) 1.40 - 5.30 10(3)/[facility] 12/16/2024 11:17 AM CDT [facility] ABSOLUTE LYMPHOCYTES 1.25 0.90 - 3.30 10(3)/[facility] 12/16/2024 11:17 AM CDT [facility] ABSOLUTE MONOCYTES 0.34 0.10 - 0.90 10(3)/[facility] 12/16/2024 11:17 AM CDT [facility] ABSOLUTE EOSINOPHIL 0.03 0.00 - 0.50 10(3)/[facility] 12/16/2024 11:17 AM CDT [facility] ABSOLUTE BASOPHILS 0.06 0.00 - 0.10 10(3)/[facility] 12/16/2024 11:17 AM CDT [facility] NRBC PER 100 WBC 0 12/17/19 11:17 AM CDT [facility] Blood Venipuncture / Unknown 12/16/2024 10:55 AM CDT 12/16/2024 11:14 AM CDT us Marquis Soni DO HEMATOLOGY ORDERABLES F inal Result Performing Organization Address City/[facility]/ZIP Co de Phone Number [facility] [address] [place] [address] * Lipase (12/16/2024 10:55 AM CDT) Only the most recent of2 resultswithin the time period is included. LIPASE 9 8 - 78 U/L 12/16/2024 11:38 AM CDT [facility] Blood Venipuncture / Unknown 12/16/2024 10:55 AM CDT 12/16/2024 11:14 AM CDT us Marquis Soni DO CHEMISTRY ORDERABLES Fi nal Result Performing Organization Address [facility] Co de Phone Number [facility] [address] [place] [address] * (ABNORMAL) CMP (Comprehensive Metabolic Panel) (12/16/2024 10:55 AM CDT) Only the most recent of2 resultswithin the time period is included. SODIUM 141 136 - 145 mmol/L 12/16/2024 11:56 AM CDT [facility] POTASSIUM 5.2(H) 3.5 - 5.1 mmol/L 12/16/2024 11:56 AM CDT [facility] Comment: Specimen is hemolyzed. In vitro hemolysis could affect results. Clinical correlation advised. CHLORIDE 112(H) 98 - 107 mmol/L 12/16/2024 11:56 AM CDT [facility] CO2, VENOUS 21(L) 22 - 30 mmol/L 12/16/2024 11:56 AM CDT [facility] ANION GAP 13.2 <18.0 mmol/L 12/16/2024 11:56 AM CDT [facility] GLUCOSE 143(H) 70 - 99 mg/dL 12/16/2024 11:56 AM CDT [facility] BUN 10 9 - 21 mg/dL 12/16/2024 11:56 AM T [facility] CREATININE, BLOOD 0.84 0.70 - 1.30 mg/dL 12/16/2024 11:56 AM [facility] BUN/CREATININE RATIO 12 12 - 20 ratio 12/16/2024 11:56 AM [facility] TOTAL PROTEIN 7.7 6.0 - 8.0 g/dL 12/16/2024 11:56 AM T [facility] Comment: Specimen is hemolyzed. In vitro hemolysis could affect results. Clinical correlation advised. ALBUMIN 4.4 3.5 - 5.0 g/dL 12/16/2024 11:56 AM [facility] A/G RATIO 1.3 1.0 - 2.2 12/16/2024 11:56 AM [facility] CALCIUM 8.9 8.7 - 10.5 mg/dL 12/16/2024 11:56 AM T [facility] T BILI 0.4 0.2 - 1.2 mg/dL 12/16/2024 11:56 AM [facility] SGOT (AST) 44(H) <43 U/L 12/16/2024 11:56 AM [facility] Comment: Specimen is hemolyzed. In vitro hemolysis could affect results. Clinical correlation advised. SGPT (ALT) 19 <56 U/L 12/16/2024 11:56 AM [facility] ALKALINE PHOSPHATASE 71 40 - 150 U/L 12/16/2024 11:56 AM [facility] GFR, ESTIMATED >60 >=60 12/16/2024 11:56 AM [facility] Comment: Creatinine Clearance is the preferred criteria for selecting drug dose adjustments in renally impaired patients. The GFR is provided as additional pertinent clinical information. GFR is reported in mL/min/1.73 sq m. Calculation based on the Chronic Kidney Disease Epidemiology Collaboration (CKD- EPI) equation refit without adjustment for race. GFR, EST. >60 >=60 05/28/2 025 11:56 AM CDT [facility] GFR, EST. NONAFRICAN >60 >=60 12/16/2024 11:56 AM CDT [facility] Blood Venipuncture / Unknown 12/16/2024 10:55 AM CDT 12/16/2024 11:14 AM CDT us Marquis Soni DO CHEMISTRY ORDERABLES Fi nal Result Performing Organization Address City/[facility] Co de Phone Number [facility] [address] [place] [address] * (ABNORMAL) POCT Glucose (12/16/2024 10:46 AM CDT) Only the most recent of7 resultswithin the time period is included. GLUCOSE,BEDSID E POCT 136(H) 70 - 99 mg/dL 12/16/2024 10:52 AM CDT [facility] Comment:Patient RN Performed Blood 12/16/2024 10:4 6 AM CDT 12/16/2024 10:52 AM CDT us None Provider POINT OF CARE TESTING Final Resu lt Performing Organization Address [facility] Co de Phone Number [facility] [address] [place] [address] * EKG 12 LEAD (12/16/2024 10:41 AM CDT) Only the most recent of2 resultswithin the time period is included. Ventricular Rate 81 BPM EXTERNAL EKG Atrial Rate 81 BPM EXTERNAL EKG P-R Interval 152 ms EXTERNAL EKG QRS Duration 74 ms EXTERNAL EKG Q-T Duration 368 ms EXTERNAL EKG QTC CALCULATION 427 ms EXTERNAL EKG P [place] 66 degrees EXTERNAL EKG R [place] 63 degrees EXTERNAL EKG T [place] 58 degrees EXTERNAL EKG 12/16/2024 10:4 1 AM CDT Impressions EXTERNAL EKG - 12/21/2024 10:53 PM CDT Normal sinus rhythm Septal infarct (cited on or before 16-DEC-2024) Abnormal ECG When compared with ECG of 16-DEC-2024 10:35, (Unconfirmed) No significant change was found Confirmed by Trina Marie ([id number]) on 12/21/2024 10:53:29 PM Narrative Procedure Note Trina Marie DO - 12/21/2024 IMPRESSION: Normal sinus rhythm Septal infarct (cited on or before 16-DEC-2024) Abnormal ECG When compared with ECG of 16-DEC-2024 10:35, (Unconfirmed) No significant change was found Confirmed by Trina Marie ([id number]) on 12/21/2024 10:53:29 PM us Marquis Jaswinder Nae DO IMG ECG ORDERABLES Stephie l Result Performing Organization Address City/[facility]/ZIP Co de Phone Number EXTERNAL EKG * EKG SCAN (12/16/2024 12:00 AM CDT) 12/16/2024 us Provider Scan IMG ECG ORDERABLES Final Result RESULTING AGENCY * MRSA NASAL PCR (10/16/2024 6:20 AM CDT) MRSA PCR RESULT Negative Negative, Invalid 10/16/2024 7:39 AM CDT [facility] Other NASOPHARYNGEAL SWAB / Unknown Non-Phlebotomy Collection / Unknown 10/16/2024 6:20 AM CDT 10/16/2024 6:25 AM CDT us Sharita Kahn APRN, PREDICTIVE MAINTENANCE SPECIALIST MICROBIOLOGY - GENERAL OR DERABLES Final Result Performing Organization Address City/[facility] Co de Phone Number [facility] [address] [place] [address] * RSV,SARS-COV-2,INFLUENZA A&B BY PCR (10/16/2024 6:20 AM CDT) Pathologist [facility] [place] FLU A Negative Negative, Error 10/16/2024 7:05 AM CDT [facility] FLU B Negative Negative 10/16/2024 7:05 AM CDT [facility] RESP SYNC VIRUS Negative Negative 7:05 AM CDT [facility] SARSCOV2 NOT DETECTED (Reference Range for this test is Not Detected) 10/16/2024 7:05 AM CDT [facility] Comment:This test was perfor med by a Reverse Retail Mortgage Banker PCR Method. Swab NASOPHARYNGEAL WASHINGS / Unknown Non-Phlebotomy Collection / Unknown 10/16/2024 6:20 AM CDT 10/16/2024 6:47 AM CDT us Sharita Kahn ROUSTABOUT CREW, PREDICTIVE MAINTENANCE SPECIALIST MICROBIOLOGY - GENERAL OR DERABLES Final Result [facility] [address] [place] [address] * (ABNORMAL) BMP with Ca, Total - every 4 hours x 48 Hours (10/16/2024 6:20 AM CDT) [facility] SODIUM 143 136 - 145 mmol/L 10/16/2024 6:47 AM CDT [facility] POTASSIUM 4.1 3.5 - 5.1 mmol/L 10/16/2024 6:47 AM CDT [facility] CHLORIDE 113(H) 98 - 107 mmol/L 10/16/2024 6:47 AM CDT [facility] CO2, VENOUS 22 22 - 30 mmol/L 10/16/2024 6:47 AM CDT [facility] ANION GAP 12.1 <18.0 mmol/L 10/16/2024 6:47 AM CDT [facility] GLUCOSE 107(H) 70 - 99 mg/dL 10/16/2024 6:47 AM CDT [facility] BUN 24(H) 9 - 21 mg/dL 10/16/2024 6:47 AM CDT [facility] CREATININE, BLOOD 1.15 0.70 - 1.30 mg/dL 10/16/2024 6:47 AM CDT [facility] BUN/CREATININE RATIO 21(H) 12 - 20 ratio 10/16/2024 6:47 AM CDT [facility] CALCIUM 9.0 8.7 - 10.5 mg/dL 10/16/2024 6:47 AM CDT [facility] GFR, ESTIMATED >60 >=60 10/16/2024 6:47 AM CDT [facility] Comment: Creatinine Clearance is the preferred criteria for selecting drug dose adjustments in renally impaired patients. The GFR is provided as additional pertinent clinical information. GFR is reported in mL/min/1.73 sq m. Calculation based on the Chronic Kidney Disease Epidemiology Collaboration (CKD- EPI) equation refit without adjustment for race. GFR, EST. >60 >=60 025 6:47 AM CDT [facility] GFR, EST. NONAFRICAN >60 >=60 10/16/2024 6:47 AM CDT [facility] Blood Venipuncture / Unknown 10/16/2024 6:20 AM CDT 10/16/2024 6:35 AM CDT us Sharita Kahn ROUSTABOUT CREW, PREDICTIVE MAINTENANCE SPECIALIST CHEMISTRY ORDERABLES Stephie l Result [facility] [address] [place] [address] * (ABNORMAL) Hemoglobin A1C w/ Estimated Glucose (10/16/2024 2:39 AM CDT) HGB-A1C 7.9(H) 4.0 - 6.0 % 10/16/2024 6:43 AM CDT [facility] Est Average Glucose 180.0 mg/dL 10/16/2024 6:43 AM CDT [facility] Blood Venipuncture / Unknown 10/16/2024 2:39 AM CDT 10/16/2024 2:46 AM CDT Narrative [facility] - 10/16/2024 6:43 AM CDT HEMOGLOBIN A1C: DIABETIC PATIENTS: WELL-CONTROLLED: 6.2 - 7.0 INTERMEDIATE WELL-CONTROLLED: 7.0 - 9.0 POORLY-CONTROLLED: >9.0 Specimens containing greater than 5% of Hemoglobin F may result in lower than expected % HbA1C results. us Sharita Kahn ROUSTABOUT CREW, PREDICTIVE MAINTENANCE SPECIALIST CHEMISTRY ORDERABLES Stephie l Result [facility] [address] [place] [address] * (ABNORMAL) Blood Gas, Venous (10/16/2024 2:39 AM CDT) PH VENOUS 7.46(H) 7.34 - 7.43 10/16/2024 3:04 AM CDT [facility] PCO2 (VENOUS) 23(L) 41 - 51 mmHg 10/16/2024 3:04 AM CDT [facility] PO2 VENOUS 133(H) 30 - 50 mmHg 10/16/2024 3:04 AM CDT [facility] O2 SAT JOHNNIE, MEASURED 99(H) 60 - 85 % 09/20 3:04 AM CDT [facility] BICARBONATE 16.7(L) 22.0 - 26.0 mmol/L 10/16/2024 3:04 AM CDT [facility] BASE VENOUS -4.6(L) -2.0 - 3.0 mmol/L 10/16/2024 3:04 AM CDT [facility] CARBOXYHEMOGLOBIN 0.5 0.0 - 5.0 % 10/16/2024 3:04 AM CDT [facility] METHEMOGLOBIN 0.7 0.0 - 1.5 % 10/16/2024 3:04 AM CDT [facility] JOHNNIE Blood Gas Venipuncture / Unknown 10/16/2024 2:39 AM CDT 10/16/2024 2:50 AM CDT Narrative [facility] - 10/16/2024 3:04 AM CDT Interpretation [...] Mayur Mcdonough MD CHEMISTRY ORDERABLES Final Result [facility] [address] [place] [address] * ETOH Level (10/16/2024 2:39 AM CDT) Pathologist [facility] [place] ETHANOL <10 <10 mg/dL 10/16/2024 3:3 6 AM CDT [facility] Blood Venipuncture / Unknown 10/16/2024 2:39 AM CDT 10/16/2024 2:46 AM CDT Mayur Mcdonough MD CHEMISTRY ORDERABLES Final Result Performing Organization Address [facility] Co de Phone Number [facility] [facility] [place] [address] * Critical Care (10/16/2024 2:34 AM CDT) Narrative Mayur Mcdonough MD - 10/16/2024 2:34 AM CDT Mayur Mcdonough MD 10/16/2024 4:31 AM Critical Care Performed by: Mayur Mcodnough MD Authorized by: Mayur Mcdonough MD Critical [...] specialty: no Care discussed with: admitting provider Result [facility] Mayur Mcdonough MD PROCEDURE/MINOR SURG ICAL ORDERABLES Final Result * RHYTHM STRIP (10/16/2024 12:00 AM CDT) 10/16/2024 Provider Scan IMG ECG ORDERABLES Final Result Performing Organization Address [facility] Co de Phone Number RESULTING AGENCY * (ABNORMAL) Lipid Panel AM (06/24/2019 5:44 AM SINGLE PASS SOIL STABILIZER OPERATOR) CHOLESTEROL 141 <=200 mg/dL 06/24/2019 1:58 PM SINGLE PASS SOIL STABILIZER OPERATOR [facility] TRIGLYCERIDES 158(H) <150 mg/dL 06/24/2019 1:58 PM SINGLE PASS SOIL STABILIZER OPERATOR [facility] HDL CHOLESTEROL 30.4(L) >40 mg/dL 9 1:58 PM SINGLE PASS SOIL STABILIZER OPERATOR [facility] LDL 79 5 - 130 mg/dL 06/24/2019 1:58 PM SINGLE PASS SOIL STABILIZER OPERATOR [facility] VLDL 32 5 - 55 mg/dL 06/24/2019 1:58 PM SINGLE PASS SOIL STABILIZER OPERATOR [facility] CHOL/HDL RATIO 4.6(H) 0.0 - 4.4 06/24/2019 1:58 PM SINGLE PASS SOIL STABILIZER OPERATOR [facility] NON-HDL CHOLESTEROL 110.6 <130 mg/dL 06/24/2019 1:58 PM SINGLE PASS SOIL STABILIZER OPERATOR [facility] LIPID FASTING 06/24/2019 1:58 PM SINGLE PASS SOIL STABILIZER OPERATOR [facility] Blood specimen (specimen) BLOOD SPECIMEN / Unknown Venipuncture / Unknown 06/24/2019 5:44 AM SINGLE PASS SOIL STABILIZER OPERATOR 06/24/2019 1:10 PM SINGLE PASS SOIL STABILIZER OPERATOR Toni Orourke MD CHEMISTRY ORDERABLES Fin al Result [facility] [place] [address] from Last 3 Months or Most Recently Relevant to Health Maintenance Insurance MEDICAID [place] MED[place]ID [place] Advance Directives * Full Code [...] measures to stabilize the patient. Care Teams Vice President Of Advertising Relationship Specialty Start Date End Date Prashanth Saldana, LINNETTE [address] [place] [id number] PCP - General Physician Propeller Engineer 04/03/19
--- OUTSIDE RECORDS SUMMARY | 2024-12-22 10:35 | XMS_ITS | Encounter Summary ---
Author Organization [facility] Address [address] [place] [address] Phone Care Team Providers Care Manager Child Name Role Phone Cristobal Aguilera MD Primary Care Provider Con Beltrán MD Unavailable [phone] Azra Yarbrough RN Unavailable [phone] Cristobal Aguilera MD Primary Care Provider Prashanth Saldana Primary Care Provider [phone] Sidney Russell MD Unavailable [phone] Reason for Visit * Reason Onset Date Comments left msg. for family to c/b and sched. 3mo appt. 03/12/2018 Encounter Details Date Type Department Care Team (Late st Contact Info) Description 03/12/2018 Telephone [facility] Pediatric Endocrinology [facility] 2nd [place] [address] [place] [address] Ngoc Lee left msg. for family to c/b and sched. 3mo appt. 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 APPLICATION DEVELOPER Gender Identity Not on file Sexual Orientation Not on file documented as of this encounter Plan of Treatment Upcoming Encounters Date Type Department Care Team (Latest Contact Info) Description 02/16/2025 12:30 PM CDT Hospital Encounter [facility] [address] [place] [address] Sidney Russell MD [address] [facility] [facility] [address] [place] [address] 02/16/2025 12:30 PM CDT - 02/16/2025 12:45 PM CDT Surgery [facility] [address] [place] [address] Sidney Russell MD [address] [facility] [address] [place] [address] ESOPHAGOGASTRODUODENOSCOPY Scheduled Procedures Name Priority Associated Diagnoses Date/Ti ar ESOPHAGOGASTRODUODENOSCOPY Nausea and vomiting, unspecified vomiting type Abnormal CT scan, esophagus 02/16/2025 12:30 PM CDT documented as of this encounter Visit Diagnoses Not on filedocumented in this encounter Additional Health Concerns Infection Onset Date Last Indicated Resolved Time COVID: Suspected 12/27/2019 12/27/2019 01/10/2020 3:05 AM CDT COVID: Suspected 01/16/2020 01/16/2020 01/30/2020 3:05 AM CDT COVID: Suspected 05/26/2020 05/26/2020 05/27/2020 10:23 AM JAVASCRIPT APPLICATION DEVELOPER Respiratory Infection (ALLIE), contact + droplet Comment:IP Review - There is a significant event note with an alternative diagnosis and at least one negative COVID-19 test documented in Epic. Patient meets criteria for COVID-19 isolation discontinuation. ` Automatically added due to negative COVID-19 result. 05/27/2020 05/27/2020 05/27/2020 12:46 PM JAVASCRIPT APPLICATION DEVELOPER COVID: Suspected 07/04/2020 07/04/2020 07/04/2020 6:02 PM JAVASCRIPT APPLICATION DEVELOPER Respiratory Infection (ALLIE), contact + droplet Comment:Patient classified as Low Risk for COVID-19 and has one negative COVID-19 test. Patient meets criteria for COVID-19 isolation discontinuation 07/04/2020 [place] Automatically added due to negative COVID-19 result. 07/04/2020 07/04/2020 07/04/2020 8:[address] COVID: Suspected 08/03/2020 08/03/2020 08/03/2020 10:50 PM JAVASCRIPT APPLICATION DEVELOPER Respiratory Infection (ALLIE), contact + droplet Comment:08/04/2020 [...] Suspected 04/03/2021 04/03/2021 04/03/2021 3:30 PM CDT COVID: Suspected 11/30/2024 11/30/2024 11/30/2024 9:17 AM CDT COVID: Suspected 12/02/2024 12/02/2024 12/02/2024 5:16 AM CDT documented as of this encounter Care Teams Manager Child Relationship Specialty Start Date End Date Cristobal Aguilera MD PCP - General 10/19/16 11/15/19 Cristobal Aguilera MD PCP - General 11/16/19 05/24/20 Prashanth Saldana PA [address] [place] [address] PCP - General Family Practice 05/25/20 Con Beltrán MD Referring Physician Pediatric Endocrinology 12/20/18 zAra Yarbrough RN [address] [facility] [address] [place] [id number] [employer] Outpatient Events And Promotions Assistant 11/16/19 12/15/19 Sidney Russell MD [address] [place] [address] Consulting Physician Gastroenterology 04/19/21 documented as of this encounter
--- OUTSIDE RECORDS SUMMARY | 2024-12-22 10:35 | XMS_ITS | Data Portability ---
Author Organization TIFFANY NATALIYAKaren Banerjee Address [address] [place] [address] Assessment No assessment recorded. Plan of Treatment Reminders Order Date Submit Date Provider Last Modified By Organization Details Last Modified Time Details Appointments None recorded. Lab CBC 2024 025 [facility], [address] [facility], [facility] [address], [place], [address], 5 10:16:08 CMP, serum or plasma 2024 025 [facility], [address] [facility], [facility], [place], [address], 5 10:16:06 lipid panel, serum 2024 025 [facility], [address] [place] [address], [facility], [place], [address], 5 10:16:04 HbA1c (hemoglobin A1c), blood 2024 025 CHRISTINA In-Office Order, Internal Use Only DO Not Attach Compendium DO Not Attach Compendium, Do Not Delete/merge, [id number] 12:17:21 urinalysis, dipstick 2022 023 kaurey In-Office Order, Internal Use Only DO Not Attach Compendium DO Not Attach Compendium, Do Not Delete/merge, [id number] 15:45:59 Referral None recorded. Procedures None [...] By Organization Details Last Modified Time 11/13/2021 [id number] plantar fasciitis: care instructions jnanney Not available 11/13/2021 15:30:40 plantar fasciitis: exercises jnanney Not available 11/13/2021 15:30:40 learning about type 1 diabetes jnanney Not available 11/13/2021 15:30:40 type 1 diabetes: care instructions jnanney Not available 11/13/2021 15:30:40 05/30/2022 [id number] learning about type 1 diabetes jnanney Not available 05/30/2022 11:57:01 type 1 diabetes: care instructions jnanney Not available 05/30/2022 11:57:01 12/18/2022 [id number] A healthy lifestyle: care instructions jnanney Not available 12/18/2022 14:46:15 learning about type 1 diabetes jnanney Not available 12/18/2022 14:46:15 type 1 diabetes: care instructions jnanney Not available 12/18/2022 14:46:15 04/16/2023 [id number] A healthy lifestyle: care instructions jnanney Not available 04/16/2023 15:45:59 learning about type 1 diabetes jnanney Not available 04/16/2023 15:45:59 type 1 diabetes: care instructions jnanney Not available 04/16/2023 15:45:59 09/03/2024 [id number] learning about type 1 diabetes jnanney Not [...] DO Not Attach Compendium, Do Not Delete/merge, [id number] 04/16/2023 15:37:08 04/16/20 23 04/16/2023 urina lysis , dipst ick Nitrite negati ve Not Available In-Office Order Internal Use Only DO Not Attach Compendium DO Not Attach Compendium, Do Not Delete/merge, [id number] 04/16/2023 15:37:08 04/16/20 23 04/16/2023 urina lysis , dipst ick Urobilinogen .2 Not Available In-Of fice Order Internal Use Only DO Not Attach Compendium DO Not Attach Compendium, Do Not Delete/merge, [id number] 04/16/2023 15:37:08 04/16/20 23 04/16/2023 urina lysis [...] 04/16/2023 urina lysis , dipst ick Specific Foster 1.015 Not Available In-Off ice Order Internal [...] DO Not Attach Compendium, Do Not Delete/merge, [id number] 04/16/2023 15:37:08 12/07/19 24 12/07/2023 Gluco se [Mass /volu me] in Blood glucose [mass/volume ] in blood 453 mg/dL low: 70mg/d Lhigh: 99mg/d L critical high GLUCO SE,BE DSIDE POCT 453 (HH) 70 - 99 mg/dL 12/06 4:54 PM CDT [facility] Not Available Not Available 12/03/2024 11:58:14 12/07/19 24 12/07/2023 Gluco se [Mass /volu me] in Blood interpretati on and review of laboratory results Abnorm al Not Available Not Available 11:58:14 12/07/19 24 12/07/2023 Basic metab olic 1999 panel - Serum or Plasm a sodium [moles/volum e] in serum or plasma 133 mmol/ L low: 136mmo l/Lhig h: 145mmo l/L low SODIU M 133 (L) 136 - 145 mmol/ L 12/06 2:51 PM CDT [facility] Not Available Not Available 12/03/2024 11:58:14 12/07/19 24 12/07/2023 Basic metab olic 1999 panel - Serum or Plasm a potassium [moles/volum e] in serum or plasma 3.2 mmol/ L low: 3.5mmo l/Lhig h: 5.1mmo l/L low POTAS SIUM 3.2 (L) 3.5 - 5.1 mmol/ L 12/06 2:51 PM CDT [facility] Not Available Not Available 12/03/2024 11:58:14 12/07/19 24 12/07/2023 Basic metab olic 1999 panel - Serum or Plasm a chloride [moles/volum e] in serum or plasma 86 mmol/ L low: 98mmol /Lhigh : 107mmo l/L low CHLOR JULIENNE 86 (L) 98 - 107 mmol/ L 12/06 2:51 PM CDT [facility] Not Available Not Available 12/03/2024 11:58:14 12/07/19 24 12/07/2023 Basic metab olic 2000 panel - Serum or Plasm a carbon dioxide, total [moles/volum e] in serum or plasma 23 mmol/ L low: 22mmol /Lhigh : 30mmol /L CO2, VENOU S 23 22 - 30 mmol/ L 12/06 2:51 PM CDT [facility] Not Available Not Available 12/03/2024 11:58:14 12/07/19 24 12/07/2023 Basic metab olic 2000 panel - Serum or Plasm a anion gap in serum or plasma by calculation 27.2 mmol/ L high: 18mmol /L high ANION GAP 27.2 (H) <18.0 mmol/ L 12/06 2:51 PM CDT [facility] Not Available Not Available 12/03/2024 11:58:14 12/07/19 24 12/07/2023 Basic metab olic 1999 panel - Serum or Plasm a glucose [mass/volume ] in serum or plasma 168 mg/dL low: 70mg/d Lhigh: 99mg/d L high GLUCO SE 168 (H) 70 - 99 mg/dL 12/06 2:51 PM CDT [facility] Not Available Not Available 12/03/2024 11:58:14 12/07/19 24 12/07/2023 Basic metab olic 1999 panel - Serum or Plasm a urea nitrogen [mass/volume ] in serum or plasma 47 mg/dL low: 9mg/dL high: 21mg/d L high BUN 47 (H) 9 - 21 mg/dL 12/06 2:51 PM CDT [facility] Not Available Not Available 12/03/2024 11:58:14 12/07/19 24 12/07/2023 Basic metab olic 2000 panel - Serum or Plasm a creatinine [mass/volume ] in serum or plasma 2.42 mg/dL low: 0.7mg/ dLhigh : 1.3mg/ dL high CREAT ININE , BLOOD 2.42 (H) 0.70 - 1.30 mg/dL 12/06 2:51 PM CDT [facility] Not Available Not Available 12/03/2024 11:58:14 12/07/19 24 12/07/2023 Basic metab olic 1999 panel - Serum or Plasm a urea nitrogen/cre atinine [mass ratio] in serum or plasma 19 text: 12 - 20 ratio BUN/C REATI NINE RATIO 19 12 - 20 ratio 12/06 2:51 PM CDT [facility] Not Available Not Available 12/03/2024 11:58:14 12/07/19 24 12/07/2023 Basic metab olic 1999 panel - Serum or Plasm a calcium [mass/volume ] in serum or plasma 8.6 mg/dL low: 8.7mg/ dLhigh : 10.5mg /dL low CALCI UM 8.6 (L) 8.7 - 10.5 mg/dL 12/06 2:51 PM CDT [facility] Not Available Not Available 12/03/2024 11:58:14 12/07/19 24 12/07/2023 Basic metab olic 1999 panel - Serum or Plasm a glomerular filtration rate [volume rate/area] in serum, plasma or blood by creatinine-b ased formula (MDRD)/1.73 sq M among non black population 37 low: 60 low GFR, ESTIM ATED 37 (L) >=60 12/06 2:51 PM CDT [facility] Not Available Not Available 12/03/2024 11:58:14 12/07/19 24 12/07/2023 Basic metab olic 1999 panel - Serum or Plasm a glomerular filtration rate [volume rate/area] in serum, plasma or blood by creatinine-b ased formula (MDRD)/1.73 sq M among black population 40 low: 60 low GFR, EST. AFRIC AN 40 (L) >=60 12/06 2:51 PM CDT [facility] Not Available Not Available 12/03/2024 11:58:14 12/07/19 24 12/07/2023 Basic metab olic 2000 panel - Serum or Plasm a glomerular filtration rate [volume rate/area] in serum, plasma or blood by creatinine-b ased formula (MDRD)/1.73 sq M among non black population 33 low: 60 low GFR, EST. NONAF RICAN 33 (L) >=60 12/06 2:51 PM CDT [facility] Not Available Not Available 12/03/2024 11:58:14 12/07/19 24 12/07/2023 Basic metab olic 2000 panel - Serum or Plasm a interpretati on and review of laboratory results Abnorm al Not Available Not Available 11:58:14 12/07/19 24 12/07/2023 Gas panel - Venou s blood oxygen gas flow oxygen delivery system room air O2 STATU S room air 12/06 12:22 PM CD[facility] Not Available Not Available 12/03/2024 11:58:14 12/07/19 24 12/07/2023 Gas panel - Venou s blood pH of venous blood 7.55 low: 7.34hi gh: 7.43 high PH VENOU S 7.55 (H) 7.34 - 7.43 12/06 12:22 PM CDT [facility] Not Available Not Available 12/03/2024 11:58:14 12/07/19 24 12/07/2023 Gas panel - Venou s blood carbon dioxide [partial pressure] in venous blood 29 text: 41 - 51 mmHg low PCO2 (VENO US) 29 (L) 41 - 51 mmHg 12/06 12:22 PM CDT [facility] Not Available Not Available 12/03/2024 11:58:14 12/07/19 24 12/07/2023 Gas panel - Venou s blood oxygen [partial pressure] in venous blood 55 text: 30 - 50 mmHg high PO2 VENOU S 55 (H) 30 - 50 mmHg 12/06 12:22 PM [facility] Not Available Not Available 12/03/2024 11:58:14 12/07/19 24 12/07/2023 Gas panel - Venou s blood oxygen saturation in venous blood 85 % low: 60%hig h: 85% O2 SAT JOHNNIE, MEASU RED 85 60 - 85 % 12/06 12:22 PM CD[facility] Not Available Not Available 12/03/2024 11:58:14 12/07/19 24 12/07/2023 Gas panel - Venou s blood bicarbonate [moles/volum e] in blood 25.8 mmol/ L low: 22mmol /Lhigh : 26mmol /L BICAR BONAT E 25.8 22.0 - 26.0 mmol/ L 12/06 12:22 PM CDT [facility] Not Available Not Available 12/03/2024 11:58:14 12/07/19 24 12/07/2023 Gas panel - Venou s blood base venous 4.7 mmol/ L low: -2mmol /Lhigh : 3mmol/ L high BASE VENOU S 4.7 (H) -2.0 - 3.0 mmol/ L 12/06 12:22 PM CDT [facility] Not Available Not Available 12/03/2024 11:58:14 12/07/19 24 12/07/2023 Gas panel - Venou s blood carboxyhemog lobin/hemogl obin.total in blood 1.2 % low: 0%high : 5% CARBO XYHEM OGLOB IN 1.2 0.0 - 5.0 % 12/06 12:22 PM CDT [facility] Not Available Not Available 12/03/2024 11:58:14 12/07/19 24 12/07/2023 Gas panel - Venou s blood methemoglobi n/hemoglobin .total in blood 0.3 % low: 0%high : 1.5% METHE MOGLO BIN 0.3 0.0 - 1.5 % 12/06 12:22 PM CDT [facility] Not Available Not Available 12/03/2024 11:58:14 12/07/19 24 12/07/2023 Gas panel - Venou s blood Unknown Analyte Interp retati on - The usual approa ch to interp reting a VBG consis ts of using the venous measur ements to estima te the tommie thomas g arteri al values , then using these estima leodan values for clinic al decisi on-floridalma ing exactl y as if an ABG had been perfor med. The differ ence betwee n the venous measur ements and the arteri al measur ements depend s upon the site of venous sampli ng and varies among labora tories . Correl ation with arteri al blood gases - Althou gh arteri al blood gas analys is is more accura te than venous analys is for the assess ment of oxygen ation, measur ement of PCO2, pH, and HCO3 are simila r with some minor adjust ments: The centra l venous pH is usuall y 0.03 to 0.05 pH units lower than the arteri al pH and the PCO2 is usuall y 4 to 5 mmHg higher , with little or no increa se in HCO3. Mixed venous blood (ie, SvO2 drawn from a pulmon robert artery cathet er) gives result s simila r to centra l venous blood (ie, ScvO2 drawn from a centra l venous cathet er). The periph eral venous pH is approx imatel y 0.02 to 0.04 pH units lower than the arteri al pH, the venous serum HCO3 concen tratio n is approx imatel y 1 to 2 meq/L higher , and the venous PCO2 is approx imatel y 3 to 8 mmHg higher . There are no venous to arteri al conver sions for ScvO2, SvO2, or periph eral venous oxyhem oglobi n satura tion (PvO2) . Import antly, suffic ient variab ility betwee n arteri al and venous blood gas values may exist such that period ic correl ation betwee n arteri al and venous blood gas values is always dawson t. Inter preta tion - The usual appro ach to inter preti ng a VBG consi sts of using the venou s measu remen ts to estim ate the corre spond ing arter ial value s, then using these estim ated value s for clini kiersten decis ion-m aking exact ly as if an ABG had been perfo rmed. The diffe rence betwe en the venou s measu remen ts and the arter ial measu remen ts depen ds upon the site of venou s sampl ing and varie s among labor atori es. Corre latio n with arter ial blood gases - Altho ugh arter ial blood gas mariela sis is more accur ate than venou s mariela sis for the asses sment of oxyge natio n, measu remen t of PCO2, pH, and HCO3 are simil ar with some minor adjus tment s: The centr al venou s pH is usual ly 0.03 to 0.05 pH units lower than the arter ial pH and the PCO2 is usual ly 4 to 5 mmHg highe r, with littl e or no incre ase in HCO3. Mixed venou s blood (ie, SvO2 drawn from a pulmo nary arter y [address]) gives resul ts simil ar to centr al venou s blood (ie, ScvO2 drawn from a centr al venou s [address] [facility]). The perip heral venou s pH is appro ximat charles 0.02 to 0.04 pH units lower than the arter ial pH, the venou s serum HCO3 valentino ntrat ion is appro ximat charles 1 to 2 meq/L highe r, and the venou s PCO2 is appro ximat charles 3 to 8 mmHg highe r. There are no venou s to arter ial conve rsion s for ScvO2 , SvO2, or perip heral venou s oxyhe moglo bin satur ation (PvO2 ). Impor tantl y, suffi cient varia bilit y betwe en arter ial and venou s blood gas value s may exist such that perio dic corre latio n betwe en arter ial and venou s blood gas value s is alway s prude nt. Not Available Not Available 12/03/2024 11:58:14 05/18/20 24 12/07/2023 Gas panel - Venou s blood interpretati on and review of laboratory results Abnorm al Not Available Not Available 11:58:14 12/07/19 24 12/07/2023 CBC W Auto Diffe renti al panel - Blood leukocytes [#/volume] in blood by automated count 20.9 text: 4.00 - 12.00 10(3)/ mcL high WBC 20.90 (H) 4.00 - 12.00 10(3) /mcL 12/06 11:38 AM CDT [facility] Not Available Not Available 12/03/2024 11:58:14 12/07/19 24 12/07/2023 CBC W Auto Diffe renti al panel - Blood erythrocytes [#/volume] in blood by automated count 5.47 text: 4.40 - 5.80 10(6)/ mcL RBC 5.47 4.40 - 5.80 10(6) /mcL 12/06 11:38 AM CDT [facility] Not Available Not Available 12/03/2024 11:58:14 12/07/19 24 12/07/2023 CBC W Auto Diffe renti al panel - Blood hemoglobin [mass/volume ] in blood 16.2 g/dL low: 13g/dL high: 16.5g/ dL HEMOG LOBIN (HGB) 16.2 13.0 - 16.5 g/dL 12/06 11:38 AM CDT [facility] Not Available Not Available 12/03/2024 11:58:14 12/07/19 24 12/07/2023 CBC W Auto Diffe renti al panel - Blood hematocrit [volume fraction] of blood by automated count 45.5 % low: 38%hig h: 50% HEMAT OCRIT (HCT) 45.5 38.0 - 50.0 % 12/06 11:38 AM CDT [facility] Not Available Not Available 12/03/2024 11:58:14 12/07/19 24 12/07/2023 CBC W Auto Diffe renti al panel - Blood MCV [entitic mean volume] in red blood cells by automated count 83.2 fL low: 82fLhi gh: 96fL MCV 83.2 82.0 - 96.0 fL 12/06 11:38 AM CDT [facility] Not Available Not Available 12/03/2024 11:58:14 12/07/19 24 12/07/2023 CBC W Auto Diffe renti al panel - Blood MCH [entitic mass] by automated count 29.6 pg low: 26pghi gh: 32pg MCH 29.6 26.0 - 32.0 pg 12/06 11:38 AM CDT [facility] Not Available Not Available 12/03/2024 11:58:14 12/07/19 24 12/07/2023 CBC W Auto Diffe renti al panel - Blood MCHC [entitic mass/volume] in red blood cells by automated count 35.6 g/dL low: 31g/dL high: 36g/dL MCHC 35.6 31.0 - 36.0 g/dL 12/06 11:38 AM CDT [facility] Not Available Not Available 12/03/2024 11:58:14 12/07/19 24 12/07/2023 CBC W Auto Diffe ramanti al panel - Blood platelets [#/volume] in blood 464 text: 140 - 440 10(3)/ mcL high PLATE LET COUNT 464 (H) 140 - 440 10(3) /mcL 12/06 11:38 AM CDT [facility] Not Available Not Available 12/03/2024 11:58:14 12/07/19 24 12/07/2023 CBC W Auto Diffe renti al panel - Blood erythrocyte [distwidth] in red blood cells by automated count 13.2 % low: 11.8%h igh: 15.5% RDW 13.2 11.8 - 15.5 % 12/06 11:38 AM CDT [facility] Not Available Not Available 12/03/2024 11:58:14 12/07/19 24 12/07/2023 CBC W Auto Diffe renti al panel - Blood platelet [entitic mean volume] in blood by automated count 10 fL low: 8fLhig h: 12.6fL MPV 10.0 8.0 - 12.6 fL 12/06 11:38 AM CDT [facility] Not Available Not Available 12/03/2024 11:58:14 12/07/19 24 12/07/2023 CBC W Auto Diffe renti al panel - Blood neutrophils/ leukocytes in blood by automated count 83.4 % low: 40%hig h: 68% high NEUTR OPHIL S 83.4 (H) 40.0 - 68.0 % 12/06 11:38 AM CDT [facility] Not Available Not Available 12/03/2024 11:58:14 12/07/19 24 12/07/2023 CBC W Auto Diffe renti al panel - Blood lymphocytes/ leukocytes in blood by automated count 7.3 % low: 19%hig h: 49% low LYMPH OCYTE S 7.3 (L) 19.0 - 49.0 % 12/06 11:38 AM CDT [facility] Not Available Not Available 12/03/2024 11:58:14 12/07/19 24 12/07/2023 CBC W Auto Diffe renti al panel - Blood monocytes/le ukocytes in blood by automated count 9.2 % low: 3%high : 13% MONOC YTES 9.2 3.0 - 13.0 % 12/06 11:38 AM CDT [facility] Not Available Not Available 12/03/2024 11:58:14 12/07/19 24 12/07/2023 CBC W Auto Diffe renti al panel - Blood eosinophils/ leukocytes in blood by automated count 0 % low: 0%high : 8% EOSIN OPHIL S 0.0 0.0 - 8.0 % 12/06 11:38 AM CD[facility] Not Available Not Available 12/03/2024 11:58:14 12/07/19 24 12/07/2023 CBC W Auto Diffe renti al panel - Blood basophils/le ukocytes in blood by automated count 0.1 % low: 0%high : 1% BASOP HILS 0.1 0.0 - 1.0 % 12/06 11:38 AM CDT [facility] Not Available Not Available 12/03/2024 11:58:14 12/07/19 24 12/07/2023 CBC W Auto Diffe renti al panel - Blood neutrophils [#/volume] in blood by automated count 17.42 text: 1.40 - 5.30 10(3)/ mcL high ABSOL [place]AV[place] NEUTR OPHIL S 17.42 (H) 1.40 - 5.30 10(3) /mcL 12/06 11:38 AM CDT [facility] Not Available Not Available 12/03/2024 11:58:14 12/07/19 24 12/07/2023 CBC W Auto Diffe renti al panel - Blood lymphocytes [#/volume] in blood by automated count 1.53 text: 0.90 - 3.30 10(3)/ mcL ABSOL [place] LYMPH OCYTE S 1.53 0.90 - 3.30 10(3) /mcL 12/06 11:38 AM CDT [facility] Not Available Not Available 12/03/2024 11:58:14 12/07/19 24 12/07/2023 CBC W Auto Diffe renti al panel - Blood monocytes [#/volume] in blood by automated count 1.92 text: 0.10 - 0.90 10(3)/ mcL high ABSOL [place] MONOC YTES 1.92 (H) 0.10 - 0.90 10(3) /mcL 12/06 11:38 AM CDT [facility] Not Available Not Available 12/03/2024 11:58:14 12/07/19 24 12/07/2023 CBC W Auto Diffe renti al panel - Blood eosinophils [#/volume] in blood by automated count 0 text: 0.00 - 0.50 10(3)/ mcL ABSOL [place] EOSIN OPHIL 0.00 0.00 - 0.50 10(3) /mcL 12/06 11:38 AM CDT [facility] Not Available Not Available 12/03/2024 11:58:14 12/07/19 24 12/07/2023 CBC W Auto Diffe renti al panel - Blood basophils [#/volume] in blood by automated count 0.03 text: 0.00 - 0.10 10(3)/ mcL ABSOL [place] BASOP HILS 0.03 0.00 - 0.10 10(3) /mcL 12/06 11:38 AM CDT [facility] Not Available Not Available 12/03/2024 11:58:14 12/07/19 24 12/07/2023 CBC W Auto Diffe renti al panel - Blood nucleated erythrocytes /leukocytes [ratio] in blood 0 NRBC PER 100 WBC 0 12/06 11:38 AM CDT [facility] Not Available Not Available 12/03/2024 11:58:14 12/07/19 24 12/07/2023 CBC W Auto Diffe renti al panel - Blood interpretati on and review of laboratory results Abnorm al Not Available Not Available 11:58:14 12/07/19 24 12/07/2023 Aceto ne [Pres ence] in Blood acetone [presence] in blood Modera te amount text: negati ve abnormal ACETO NE Moder ate amoun t (A) Negat yen 12/06 11:51 AM CDT [facility] Not Available Not Available 12/03/2024 11:58:14 12/07/19 24 12/07/2023 Aceto ne [Pres ence] in Blood interpretati on and review of laboratory results Abnorm al Not Available Not Available 11:58:14 12/07/19 24 12/07/2023 Lipas e [Enzy matic activ ity/v olume ] in Serum or Plasm a lipase [enzymatic activity/vol ume] in serum or plasma 9 U/L low: 8U/Lhi gh: 78U/L LIPAS E 9 8 - 78 U/L 12/06 11:59 AM CDT [facility] Not Available Not Available 12/03/2024 11:58:13 12/07/19 24 12/07/2023 Lipas e [Enzy matic activ ity/v olume ] in Serum or Plasm a interpretati on and review of laboratory results Normal Not Available Not Available 11/19 11:58:13 12/07/19 24 12/07/2023 Compr ehens yen metab olic 1999 panel - Serum or Plasm a sodium [moles/volum e] in serum or plasma 130 mmol/ L low: 136mmo l/Lhig h: 145mmo l/L low SODIU M 130 (L) 136 - 145 mmol/ L 12/06 12:06 PM CD[facility] Not Available Not Available 09/03/2024 11:01:15 12/07/19 24 12/07/2023 Compr ehens yen metab olic 1999 panel - Serum or Plasm a potassium [moles/volum e] in serum or plasma 3.4 mmol/ L low: 3.5mmo l/Lhig h: 5.1mmo l/L low POTAS SIUM 3.4 (L) 3.5 - 5.1 mmol/ L 12/06 12:06 PM CDT [facility] Not Available Not Available 09/03/2024 11:01:15 12/07/19 24 12/07/2023 Compr ehens yen metab olic 1999 panel - Serum or Plasm a chloride [moles/volum e] in serum or plasma 77 mmol/ L low: 98mmol /Lhigh : 107mmo l/L low CHLOR JULIENNE 77 (L) 98 - 107 mmol/ L 12/06 12:06 PM CDT [facility] Not Available Not Available 09/03/2024 11:01:15 12/07/19 24 12/07/2023 Compr ehens yen metab olic 1999 panel - Serum or Plasm a carbon dioxide, total [moles/volum e] in serum or plasma 23 mmol/ L low: 22mmol /Lhigh : 30mmol /L CO2, VENOU S 23 22 - 30 mmol/ L 12/06 12:06 PM CDT [facility] Not Available Not Available 09/03/2024 11:01:15 12/07/19 24 12/07/2023 Compr ehens yen metab olic 1999 panel - Serum or Plasm a anion gap in serum or plasma 33.4 mmol/ L high: 18mmol /L high ANION GAP 33.4 (H) <18.0 mmol/ L 12/06 12:06 PM CDT [facility] Not Available Not Available 09/03/2024 11:01:15 12/07/19 24 12/07/2023 Compr ehens yen metab olic 2000 panel - Serum or Plasm a glucose [mass/volume ] in serum or plasma 377 mg/dL low: 70mg/d Lhigh: 99mg/d L high GLUCO SE 377 (H) 70 - 99 mg/dL 12/06 12:06 PM CDT [facility] Not Available Not Available 09/03/2024 11:01:15 12/07/19 24 12/07/2023 Compr WhatsNexxens yen metab olic 2000 panel - Serum or Plasm a urea nitrogen [mass/volume ] in serum or plasma 48 mg/dL low: 9mg/dL high: 21mg/d L high BUN 48 (H) 9 - 21 mg/dL 12/06 12:06 PM CDT [facility] Not Available Not Available 09/03/2024 11:01:15 12/07/19 24 12/07/2023 Compr [employer] yen metab olic 2000 panel - Serum or Plasm a creatinine [mass/volume ] in serum or plasma 2.8 mg/dL low: 0.7mg/ dLhigh : 1.3mg/ dL high CREAT ININE , BLOOD 2.80 (H) 0.70 - 1.30 mg/dL 12/06 12:06 PM CDT [facility] LAB Not Available Not Available 09/03/2024 11:01:15 12/07/19 24 12/07/2023 Compr [facility] yen metab olic 1999 panel - Serum or Plasm a urea nitrogen/cre atinine [mass ratio] in serum or plasma 17 text: 12 - 20 ratio BUN/C REATI NINE RATIO 17 12 - 20 ratio 12/06 12:06 PM CDT [facility] LAB Not Available Not Available 09/03/2024 11:01:15 12/07/19 24 12/07/2023 Compr ehens yen metab olic 1999 panel - Serum or Plasm a protein [mass/volume ] in serum or plasma 8.4 g/dL low: 6.3g/d Lhigh: 8.2g/d L high TOTAL PROTE IN 8.4 (H) 6.3 - 8.2 g/dL 12/06 12:06 PM CDT [facility] LAB Not Available Not Available 09/03/2024 11:01:15 12/07/19 24 12/07/2023 Compr ehens yen metab olic 1999 panel - Serum or Plasm a albumin [mass/volume ] in serum or plasma 4.7 g/dL low: 3.5g/d Lhigh: 5g/dL ALBUM IN 4.7 3.5 - 5.0 g/dL 12/06 12:06 PM CDT [facility] Not Available Not Available 09/03/2024 11:01:15 12/07/19 24 12/07/2023 Compr ehens yen metab olic 1999 panel - Serum or Plasm a albumin/glob ulin [mass ratio] in serum or plasma 1.3 low: 1high: 2.2 A/G RATIO 1.3 1.0 - 2.2 12/06 12:06 PM CDT [facility] Not Available Not Available 09/03/2024 11:01:15 12/07/19 24 12/07/2023 Compr ehens yen metab olic 1999 panel - Serum or Plasm a calcium [mass/volume ] in serum or plasma 9.3 mg/dL low: 8.7mg/ dLhigh : 10.5mg /dL CALCI UM 9.3 8.7 - 10.5 mg/dL 12/06 12:06 PM CDT [facility] Not Available Not Available 09/03/2024 11:01:15 12/07/19 24 12/07/2023 Compr ehens yen metab olic 1999 panel - Serum or Plasm a bilirubin.to su [mass/volume ] in serum or plasma 1.1 mg/dL low: 0.2mg/ dLhigh : 1.2mg/ dL T BILI 1.1 0.2 - 1.2 mg/dL 12/06 12:06 PM CDT [facility] Not Available Not Available 09/03/2024 11:01:15 12/07/19 24 12/07/2023 Compr ehens yen metab olic 1999 panel - Serum or Plasm a aspartate aminotransfe rase [enzymatic activity/vol ume] in serum or plasma 32 U/L low: 5U/Lhi gh: 34U/L SGOT (AST) 32 5 - 34 U/L 12/06 12:06 PM CDT [facility] Not Available Not Available 09/03/2024 11:01:15 12/07/19 24 12/07/2023 Compr ens yen metab olic 1999 panel - Serum or Plasm a alanine aminotransfe rase [enzymatic activity/vol ume] in serum or plasma 41 U/L low: 0U/Lhi gh: 55U/L SGPT (ALT) 41 0 - 55 U/L 12/06 12:06 PM CDT [facility] Not Available Not Available 09/03/2024 11:01:15 12/07/19 24 12/07/2023 Compr ehens yen metab olic 1999 panel - Serum or Plasm a alkaline phosphatase [enzymatic activity/vol ume] in serum or plasma 115 U/L low: 40U/Lh igh: 150U/L ALKAL INE PHOSP HATAS E 115 40 - 150 U/L 12/06 12:06 PM [facility] Not Available Not Available 09/03/2024 11:01:15 12/07/19 24 12/07/2023 Compr ehens yen metab olic 2000 panel - Serum or Plasm a glomerular filtration rate/1.73 sq M.predicted among non-blacks [volume rate/area] in serum, plasma or blood by creatinine-b ased formula (MDRD) 31 low: 60 low GFR, ESTIM ATED 31 (L) >=60 12/06 12:06 PM [facility] Not Available Not Available 09/03/2024 11:01:15 12/07/1912/07/2023 Compr ehens yen metab olic 2000 panel - Serum or Plasm a glomerular filtration rate/1.73 sq M.predicted among blacks [volume rate/area] in serum, plasma or blood by creatinine-b ased formula (MDRD) 34 low: 60 low GFR, EST. AFRIC AN 34 (L) >=60 12/06 12:06 PM CDT [facility] Not Available Not Available 09/03/2024 11:01:15 12/07/1912/07/2023 Compr ehens yen metab olic 2000 panel - Serum or Plasm a glomerular filtration rate/1.73 sq M.predicted among non-blacks [volume rate/area] in serum, plasma or blood by creatinine-b ased formula (MDRD) 28 low: 60 low GFR, EST. NONAF RICAN 28 (L) >=60 12/06 12:06 PM CDT [facility] Not Available Not Available 09/03/2024 11:01:15 12/07/19 24 12/07/2023 Compr ehens yen metab olic 2000 panel - Serum or Plasm a interpretati [...] Abnorm al Not Available Not Available 11:01:35 04/05/20 24 04/05/2024 Lacta te [Mole s/vol ume] in Serum or Plasm a lactate [moles/volum e] in serum or plasma 1.1 mmol/ L low: 0.7mmo l/Lhig h: 2mmol/ L LACTI C ACID 1.1 0.7 - 2.0 mmol/ L 04/05 9:56 PM CDT [facility] Not Available Not Available 12/03/2024 11:56:34 04/05/20 24 04/05/2024 Lacta te [Mole s/vol ume] in Serum or Plasm a interpretati on and review of laboratory results Normal Not Available Not Available 11/19 11:56:34 04/05/20 24 04/05/2024 Influ carlos virus A and B and SARS- CoV-2 (COVI D-19) and Respi rator y syncy tial virus RNA panel - Respi rator y syste m speci men by GABRIELLE with probe detec tion influenza virus A RNA [presence] in nasopharynx by GABRIELLE with probe detection Negati ve text: negati ve, error FLU A Negat yen Negat yen, Error 04/05 10:20 PM CDT [facility] Not Available Not Available 12/03/2024 11:56:34 04/05/20 24 04/05/2024 Influ carlos virus A and B and SARS- CoV-2 (COVI D-19) and Respi rator y syncy tial virus RNA panel - Respi rator y syste m speci men by GABRIELLE with probe detec tion influenza virus B RNA [presence] in nasopharynx by GABRIELLE with probe detection Negati ve text: negati ve FLU B Negat yen Negat yen 04/05 10:20 PM CDT [facility] Not Available Not Available 12/03/2024 11:56:34 04/05/20 24 04/05/2024 Influ carlos virus A and B and SARS- CoV-2 (COVI D-19) and Respi rator y syncy tial virus RNA panel - Respi rator y syste m speci men by GABRIELLE with probe detec tion respiratory syncytial virus RNA [presence] in respiratory system specimen by GABRIELLE with probe detection Negati ve text: negati ve RESP SYNC VIRUS Negat yen Negat yen 04/05 10:20 PM CDT [facility] Not Available Not Available 12/03/2024 11:56:34 04/05/20 24 04/05/2024 Influ carlos virus A and B and SARS- CoV-2 (COVI D-19) and Respi rator y syncy tial virus RNA panel - Respi rator y syste m speci men by GABRIELLE with probe detec tion sars-cov-2 (covid-19) N gene [presence] in specimen by GABRIELLE with probe detection NOT DETECT ED text: (refer ence range for this test IS not detect ed) SARSC OV2 NOT DETEC LEODAN (Refe rence Range for this test is Not Detec leodan) 04/05 10:20 PM CDT [facility] Not Available Not Available 12/03/2024 11:56:34 04/05/20 24 04/05/2024 Influ carlos virus A and B and SARS- CoV-2 (COVI D-19) and Respi rator y syncy tial virus RNA panel - Respi rator y syste m speci men by GABRIELLE with probe detec tion Unknown Analyte This test has not been FDA cleare d or approv ed; the test has been author ized by FDA under an Emerge ncy Use Author farhan ng (CARROLL) for use by lucy goldberg under the CLIA that meet the requir ements to perfor m modera te, high or waived comple xity tests. Author snowden Fact Sheets about this test for evonne ers and kelsi ts are availa ble at: https: //www. fda.go v/medi kiersten-de vices/ emerge ncy-si tuatio ns-med ical-d evices /emerg ency-u se-aut horiza tions This test has not been FDA clear ed or appro nel; the test has been autho rized by FDA under an Emerg ency Use Autho rizat ion (EUA) for use by labor atori es certi fied under the CLIA that meet the requi remen ts to perfo rm moder ate, high or waive d compl exity tests . Autho rized Fact Sheet s about this test for provi ders and patie nts are avail able at: https ://ww w.fda .gov/ medic al-de vices /kandi gency -situ ation s-med ical- devic es/em ergen cy-us e-aut horiz ation s Not Available Not Available 12/03/2024 11:56:34 04/05/20 24 04/05/2024 Influ carlos virus A and B and SARS- CoV-2 (COVI D-19) and Respi rator y syncy tial virus RNA panel - Respi rator y syste m speci men by GABRIELLE with probe detec tion interpretati on and review of laboratory results Normal Not Available Not Available 11/19 11:56:34 04/05/20 24 04/05/2024 Methi cilli n resis tant Staph yloco ccus aureu s (MRSA ) DNA [Pres ence] in Speci men by GABRIELLE with probe detec tion methicillin resistant staphylococc us aureus (MRSA) DNA [presence] in specimen by GABRIELLE with probe detection Negati ve text: negati ve, invali d MRSA PCR RESUL T Negat yen Negat yen, Inval id 04/05 10:52 PM CDT [facility] Not Available Not Available 12/03/2024 11:56:34 04/05/20 24 04/05/2024 Methi cilli n resis tant Staph yloco ccus aureu s (MRSA ) DNA [Pres ence] in Speci men by GABRIELLE with probe detec tion interpretati on and review of laboratory results Normal Not Available Not Available 11/19 11:56:34 04/05/20 24 04/10/2024 Bacte mike ident ified in Blood by Cultu re bacteria identified in blood by culture NO GROWTH WITHIN 5 DAYS, FINAL RESULT CULTU RE RESUL TS NO GROWT H WITHI N 5 DAYS, FINAL RESUL T 04/10 6:01 PM CDT [facility] Not Available Not Available 12/03/2024 11:56:34 04/05/20 24 04/10/2024 Bacte mike ident ified in Blood by Cultu re Unknown Analyte [Auto- result ed by a batch job.] [Auto -resu lted by a batch job.] Not Available Not Available 12/03/2024 11:56:34 04/05/20 24 04/05/2024 Aceto ne [Pres ence] in Blood acetone [presence] in blood Negati ve text: negati ve ACETO NE Negat yen Negat yen 04/05 4:57 PM CDT [facility] Not Available Not Available 12/03/2024 11:56:34 04/05/20 24 04/05/2024 Aceto ne [Pres ence] in Blood interpretati on and review of laboratory results Normal Not Available Not Available 11/19 11:56:34 04/06/20 24 04/06/2024 Gluco se [Mass /volu me] in Blood glucose [mass/volume ] in blood 219 mg/dL low: 70mg/d Lhigh: 99mg/d L high GLUCO SE,BE DSIDE POCT 219 (H) 70 - 99 mg/dL 04/06 6:23 AM CDT [facility] Not Available Not Available 12/03/2024 11:56:35 04/06/20 24 04/06/2024 Gluco se [Mass /volu me] in Blood interpretati on and review of laboratory results Abnorm al Not Available Not Available 11:56:35 04/06/20 24 04/06/2024 CBC W Auto Diffe renti al panel - Blood leukocytes [#/volume] in blood by automated count 13.22 text: 4.00 - 12.00 10(3)/ mcL high WBC 13.22 (H) 4.00 - 12.00 10(3) /mcL 04/06 5:28 AM CDT [facility] Not Available Not Available 12/03/2024 11:56:35 04/06/20 24 04/06/2024 CBC W Auto Diffe renti al panel - Blood erythrocytes [#/volume] in blood by automated count 4.18 text: 4.40 - 5.80 10(6)/ mcL low RBC 4.18 (L) 4.40 - 5.80 10(6) /mcL 04/06 5:28 AM CDT [facility] Not Available Not Available 12/03/2024 11:56:35 04/06/20 24 04/06/2024 CBC W Auto Diffe renti al panel - Blood hemoglobin [mass/volume ] in blood 12.1 g/dL low: 13g/dL high: 16.5g/ dL low HEMOG LOBIN (HGB) 12.1 (L) 13.0 - 16.5 g/dL 04/06 5:28 AM [facility] Not Available Not Available 12/03/2024 11:56:35 04/06/20 24 04/06/2024 CBC W Auto Diffe renti al panel - Blood hematocrit [volume fraction] of blood by automated count 35.8 % low: 38%hig h: 50% low HEMAT OCRIT (HCT) 35.8 (L) 38.0 - 50.0 % 04/06 5:28 AM CDT [facility] Not Available Not Available 12/03/2024 11:56:35 04/06/20 24 04/06/2024 CBC W Auto Diffe renti al panel - Blood MCV [entitic mean volume] in red blood cells by automated count 85.6 fL low: 82fLhi gh: 96fL MCV 85.6 82.0 - 96.0 fL 04/06 5:28 AM CDT [facility] Not Available Not Available 12/03/2024 11:56:35 04/06/20 24 04/06/2024 CBC W Auto Diffe renti al panel - Blood MCH [entitic mass] by automated count 28.9 pg low: 26pghi gh: 32pg MCH 28.9 26.0 - 32.0 pg 04/06 5:28 AM CDT [facility] Not Available Not Available 12/03/2024 11:56:35 04/06/20 24 04/06/2024 CBC W Auto Diffe renti al panel - Blood MCHC [entitic mass/volume] in red blood cells by automated count 33.8 g/dL low: 31g/dL high: 36g/dL MCHC 33.8 31.0 - 36.0 g/dL 04/06 5:28 AM CDT [facility] Not Available Not Available 12/03/2024 11:56:35 04/06/20 24 04/06/2024 CBC W Auto Diffe renti al panel - Blood platelets [#/volume] in blood 287 text: 140 - 440 10(3)/ mcL PLATE LET COUNT 287 140 - 440 10(3) /mcL 04/06 5:28 AM CDT [facility] Not Available Not Available 12/03/2024 11:56:35 04/06/20 24 04/06/2024 CBC W Auto Diffe renti al panel - Blood erythrocyte [distwidth] in red blood cells by automated count 13.7 % low: 11.8%h igh: 15.5% RDW 13.7 11.8 - 15.5 % 04/06 5:28 AM CDT [facility] Not Available Not Available 12/03/2024 11:56:35 04/06/20 24 04/06/2024 CBC W Auto Diffe renti al panel - Blood platelet [entitic mean volume] in blood by automated count 10.7 fL low: 8fLhig h: 12.6fL MPV 10.7 8.0 - 12.6 fL 04/06 5:28 AM CDT [facility] Not Available Not Available 12/03/2024 11:56:35 04/06/20 24 04/06/2024 CBC W Auto Diffe renti al panel - Blood nucleated erythrocytes /leukocytes [ratio] in blood 0 NRBC PER 100 WBC 0 04/06 5:28 AM CDT [facility] Not Available Not Available 12/03/2024 11:56:35 04/06/20 24 04/06/2024 CBC W Auto Diffe renti al panel - Blood interpretati on and review of laboratory results Abnorm al Not Available Not Available 11:56:35 04/06/20 24 04/06/2024 Basic metab olic 2000 panel - Serum or Plasm a sodium [moles/volum e] in serum or plasma 136 mmol/ L low: 136mmo l/Lhig h: 145mmo l/L SODIU M 136 136 - 145 mmol/ L 04/06 5:36 AM [facility] Not Available Not Available 12/03/2024 11:56:34 04/06/20 24 04/06/2024 Basic metab olic 1999 panel - Serum or Plasm a potassium [moles/volum e] in serum or plasma 3.5 mmol/ L low: 3.5mmo l/Lhig h: 5.1mmo l/L POTAS SIUM 3.5 3.5 - 5.1 mmol/ L 04/06 5:36 AM CDT [facility] Not Available Not Available 12/03/2024 11:56:34 04/06/20 24 04/06/2024 Basic metab olic 1999 panel - Serum or Plasm a chloride [moles/volum e] in serum or plasma 95 mmol/ L low: 98mmol /Lhigh : 107mmo l/L low CHLOR JULIENNE 95 (L) 98 - 107 mmol/ L 04/06 5:36 AM CDT [facility] Not Available Not Available 12/03/2024 11:56:34 04/06/20 24 04/06/2024 Basic metab olic 1999 panel - Serum or Plasm a carbon dioxide, total [moles/volum e] in serum or plasma 25 mmol/ L low: 22mmol /Lhigh : 30mmol /L CO2, VENOU S 25 22 - 30 mmol/ L 04/06 5:36 AM CDT [facility] Not Available Not Available 12/03/2024 11:56:34 04/06/20 24 04/06/2024 Basic metab olic 1999 panel - Serum or Plasm a anion gap in serum or plasma by calculation 19.5 mmol/ L high: 18mmol /L high ANION GAP 19.5 (H) <18.0 mmol/ L 04/06 5:36 AM CDT [facility] Not Available Not Available 12/03/2024 11:56:34 04/06/20 24 04/06/2024 Basic metab olic 1999 panel - Serum or Plasm a glucose [mass/volume ] in serum or plasma 257 mg/dL low: 70mg/d Lhigh: 99mg/d L high GLUCO SE 257 (H) 70 - 99 mg/dL 04/06 5:36 AM CDT [facility] Not Available Not Available 12/03/2024 11:56:34 04/06/20 24 04/06/2024 Basic metab olic 1999 panel - Serum or Plasm a urea nitrogen [mass/volume ] in serum or plasma 31 mg/dL low: 9mg/dL high: 21mg/d L high BUN 31 (H) 9 - 21 mg/dL 04/06 5:36 AM CDT [facility] Not Available Not Available 12/03/2024 11:56:34 04/06/20 24 04/06/2024 Basic metab olic 1999 panel - Serum or Plasm a creatinine [mass/volume ] in serum or plasma 1.8 mg/dL low: 0.7mg/ dLhigh : 1.3mg/ dL high CREAT ININE , BLOOD 1.80 (H) 0.70 - 1.30 mg/dL 04/06 5:36 AM CDT [facility] Not Available Not Available 12/03/2024 11:56:34 04/06/20 24 04/06/2024 Basic metab olic 1999 panel - Serum or Plasm a urea nitrogen/cre atinine [mass ratio] in serum or plasma 17 text: 12 - 20 ratio BUN/C REATI NINE RATIO 17 12 - 20 ratio 04/06 5:36 AM CDT [facility] Not Available Not Available 12/03/2024 11:56:34 04/06/20 24 04/06/2024 Basic metab olic 1999 panel - Serum or Plasm a calcium [mass/volume ] in serum or plasma 7.6 mg/dL low: 8.7mg/ dLhigh : 10.5mg /dL low CALCI UM 7.6 (L) 8.7 - 10.5 mg/dL 04/06 5:36 AM CDT [facility] Not Available Not Available 12/03/2024 11:56:34 04/06/20 24 04/06/2024 Basic metab olic 2000 panel - Serum or Plasm a glomerular filtration rate [volume rate/area] in serum, plasma or blood by creatinine-b ased formula (MDRD)/1.73 sq M among non black population 53 low: 60 low GFR, ESTIM ATED 53 (L) >=60 04/06 5:36 AM CDT [facility] Not Available Not Available 12/03/2024 11:56:34 04/06/20 24 04/06/2024 Basic metab olic 1999 panel - Serum or Plasm a glomerular filtration rate [volume rate/area] in serum, plasma or blood by creatinine-b ased formula (MDRD)/1.73 sq M among black population 56 low: 60 low GFR, EST. AFRIC AN 56 (L) >=60 04/06 5:36 AM CDT [facility] Not Available Not Available 12/03/2024 11:56:34 04/06/20 24 04/06/2024 Basic metab olic 2000 panel - Serum or Plasm a glomerular filtration rate [volume rate/area] in serum, plasma or blood by creatinine-b ased formula (MDRD)/1.73 sq M among non black population 47 low: 60 low GFR, EST. NONAF RICAN 47 (L) >=60 04/06 5:36 AM CDT [facility] Not Available Not Available 12/03/2024 11:56:34 04/06/20 24 04/06/2024 Basic metab olic 2000 panel - Serum or Plasm a interpretati on and review of laboratory results Abnorm al Not Available Not Available 11:56:34 04/06/20 24 04/06/2024 Phosp hate [Mass /volu me] in Serum or Plasm a phosphate [mass/volume ] in serum or plasma 1.6 mg/dL low: 2.5mg/ dLhigh : 4.5mg/ dL low PHOSP HORUS 1.6 (L) 2.5 - 4.5 mg/dL 04/06 5:36 AM CDT [facility] Not Available Not Available 12/03/2024 11:56:34 04/06/20 24 04/06/2024 Phosp hate [Mass /volu me] in Serum or Plasm a interpretati on and review of laboratory results Abnorm al Not Available Not Available 11:56:34 04/06/20 24 04/06/2024 Magne sium [Mass /volu me] in Serum or Plasm a magnesium [mass/volume ] in serum or plasma 2.1 mg/dL low: 1.6mg/ dLhigh : 2.6mg/ dL MAGNE SIUM 2.1 1.6 - 2.6 mg/dL 04/06 5:36 AM CDT [facility] Not Available Not Available 12/03/2024 11:56:34 04/06/20 24 04/06/2024 Magne sium [Mass /volu me] in Serum or Plasm a interpretati on and review of laboratory results Normal Not Available Not Available 11/19 11:56:34 04/06/20 24 04/06/2024 Gas panel - Venou s blood oxygen gas flow oxygen delivery system room air O2 STATU S room air 04/06 2:30 AM CDT [facility] Not Available Not Available 12/03/2024 11:56:34 04/06/20 24 04/06/2024 Gas panel - Venou s blood pH of venous blood 7.56 low: 7.34hi gh: 7.43 high PH VENOU S 7.56 (H) 7.34 - 7.43 04/06 2:30 AM CDT [facility] Not Available Not Available 12/03/2024 11:56:34 04/06/20 24 04/06/2024 Gas panel - Venou s blood carbon dioxide [partial pressure] in venous blood 36 text: 41 - 51 mmHg low PCO2 (VENO US) 36 (L) 41 - 51 mmHg 04/06 2:30 AM CDT [facility] Not Available Not Available 12/03/2024 11:56:34 04/06/20 24 04/06/2024 Gas panel - Venou s blood oxygen [partial pressure] in venous blood 114 text: 30 - 50 mmHg high PO2 VENOU S 114 (H) 30 - 50 mmHg 04/06 2:30 AM CDT [facility] Not Available Not Available 12/03/2024 11:56:34 04/06/20 24 04/06/2024 Gas panel - Venou s blood oxygen saturation in venous blood 99 % low: 60%hig h: 85% high O2 SAT JOHNNIE, MEASU RED 99 (H) 60 - 85 % 04/06 2:30 AM CDT [facility] Not Available Not Available 12/03/2024 11:56:34 04/06/20 24 04/06/2024 Gas panel - Venou s blood bicarbonate [moles/volum e] in blood 32 mmol/ L low: 22mmol /Lhigh : 26mmol /L high BICAR BONAT E 32.0 (H) 22.0 - 26.0 mmol/ L 04/06 2:30 AM CDT [facility] Not Available Not Available 12/03/2024 11:56:34 04/06/20 24 04/06/2024 Gas panel - Venou s blood base venous 9.9 mmol/ L low: -2mmol /Lhigh : 3mmol/ L high BASE VENOU S 9.9 (H) -2.0 - 3.0 mmol/ L 04/06 2:30 AM CDT [facility] Not Available Not Available 12/03/2024 11:56:34 04/06/20 24 04/06/2024 Gas panel - Venou s blood carboxyhemog lobin/hemogl obin.total in blood 2.2 % low: 0%high : 5% CARBO XYHEM OGLOB IN 2.2 0.0 - 5.0 % 04/06 2:30 AM CDT [facility] Not Available Not Available 12/03/2024 11:56:34 04/06/20 24 04/06/2024 Gas panel - Venou s blood methemoglobi n/hemoglobin .total in blood 0.4 % low: 0%high : 1.5% METHE MOGLO BIN 0.4 0.0 - 1.5 % 04/06 2:30 AM CDT [facility] Not Available Not Available 12/03/2024 11:56:34 04/06/20 24 04/06/2024 Gas panel - Venou s blood Unknown Analyte Interp retati on - The usual approa ch to interp reting a VBG consis ts of using the venous measur ements to estima te the tommie chowdhury arteri al values , then using these estima leodan values for clinic al decisi on-floridalma ing exactl y as if an ABG had been perfor med. The differ ence betjohn n the venous measur ements and the arteri al measur ements depend s upon the site of venous sampli ng and varies among labora tories . Correl ation with arteri al blood gases - Althou gh arteri al blood gas analys is is more accura te than venous analys is for the assess ment of oxygen ation, measur ement of PCO2, pH, and HCO3 are simila r with some minor adjust ments: The centra l venous pH is usuall y 0.03 to 0.05 pH units lower than the arteri al pH and the PCO2 is usuall y 4 to 5 mmHg higher , with little or no increa se in HCO3. Mixed venous blood (ie, SvO2 drawn from a pulmon robert artery cathet er) gives result s simila r to centra l venous blood (ie, ScvO2 drawn from a centra l venous cathet er). The periph eral venous pH is approx imatel y 0.02 to 0.04 pH units lower than the arteri al pH, the venous serum HCO3 concen tratio n is approx imatel y 1 to 2 meq/L higher , and the venous PCO2 is approx imatel y 3 to 8 mmHg higher . There are no venous to arteri al conver sions for ScvO2, SvO2, or periph eral venous oxyhem oglobi n satura tion (PvO2) . Import antly, suffic ient variab ility betwee n arteri al and venous blood gas values may exist such that period ic correl ation betwee n arteri al and venous blood gas values is always dawson t. Inter preta tion - The usual appro ach to inter preti ng a VBG consi sts of using the venou s measu remen ts to estim ate the corre spond ing arter ial value s, then using these estim ated value s for clini kiersten decis ion-m aking exact ly as if an ABG had been perfo rmed. The diffe rence betwe en the venou s measu remen ts and the arter ial measu remen ts depen ds upon the site of venou s sampl ing and varie s among labor atori es. Corre latio n with arter ial blood gases - Altho ugh arter ial blood gas mariela sis is more accur ate than venou s mariela sis for the asses sment of oxyge natio n, measu remen t of PCO2, pH, and HCO3 are simil ar with some minor adjus tment s: The centr al venou s pH is usual ly 0.03 to 0.05 pH units lower than the arter ial pH and the PCO2 is usual ly 4 to 5 mmHg highe r, with littl e or no incre ase in HCO3. Mixed venou s blood (ie, SvO2 drawn from a pulmo nary arter y [address]) gives resul ts simil ar to centr al venou s blood (ie, ScvO2 drawn from a centr al venou s [address]). The perip heral venou s pH is appro ximat charles 0.02 to 0.04 pH units lower than the arter ial pH, the venou s serum HCO3 valentino ntrat ion is appro ximat charles 1 to 2 meq/L highe r, and the venou s PCO2 is appro ximat charles 3 to 8 mmHg highe r. There are no venou s to arter ial conve rsion s for ScvO2 , SvO2, or perip heral venou s oxyhe moglo bin satur ation (PvO2 ). Impor tantl y, suffi cient varia bilit y betwe en arter ial and venou s blood gas value s may exist such that perio dic corre latio n betwe en arter ial and venou s blood gas value s is alway s prude nt. Not Available Not Available 12/03/2024 11:56:34 04/06/20 24 04/06/2024 Gas panel - Venou s blood interpretati on and review of laboratory results Abnorm al Not Available Not Available 11:56:34 04/06/20 24 04/06/2024 pH of Venou s blood pH of venous blood 7.52 low: 7.34hi gh: 7.43 high PH VENOU S 7.52 (H) 7.34 - 7.43 04/05 11:28 PM CDT [facility] Not Available Not Available 12/03/2024 11:56:34 04/06/20 24 04/06/2024 pH of Venou s blood interpretati on and review of laboratory results Abnorm al Not Available Not Available 11:56:34 09/03/19 25 09/04/2024 LIPID PANEL cholesterol, total 256 mg/dL 100-19 9 above high normal Not Available [facility] & [address], [address], 09/04/2024 10:16:04 09/03/19 25 09/04/2024 LIPID PANEL triglyceride s 125 mg/dL 0-149 Not Available [address], [address], 09/04/2024 10:16:04 09/03/19 25 09/04/2024 LIPID PANEL HDL cholesterol 49 mg/dL >39 Not Available [address], [address], 09/04/2024 10:16:04 09/03/19 25 09/04/2024 LIPID PANEL VLDL cholesterol kiersten 23 mg/dL 5-40 Not Available [address], [address], 09/04/2024 10:16:04 09/03/19 25 09/04/2024 LIPID PANEL LDL chol calc (nih) 184 mg/dL 0-99 above high normal Not Available [address], [address], 09/04/2024 10:16:04 09/03/19 25 09/04/2024 COMP. METAB OLIC PANEL (14) glucose 108 mg/dL 70-99 above high normal Not Available [address], [address], 09/04/2024 10:16:06 09/03/19 25 09/04/2024 COMP. METAB OLIC PANEL (14) BUN 18 mg/dL 6-20 Not Available [address], [address], 09/04/2024 10:16:06 09/03/19 25 09/04/2024 COMP. METAB OLIC PANEL (14) creatinine 0.99 mg/dL 0.76-1 .27 Not Available [address] [place], [address], 09/04/2024 10:16:06 09/03/19 25 09/04/2024 COMP. METAB OLIC PANEL (14) eGFR 108 mL/mi n/1.7 3 >59 Not Available [address], [address], 09/04/2024 10:16:06 09/03/19 25 09/04/2024 COMP. METAB OLIC PANEL (14) BUN/creatini ne ratio 18 9-20 Not Available [address], [address], 09/04/2024 10:16:06 09/03/19 25 09/04/2024 COMP. METAB OLIC PANEL (14) sodium 142 mmol/ L 134-14 4 Not Available [address], [address], 09/04/2024 10:16:06 09/03/19 25 09/04/2024 COMP. METAB OLIC PANEL (14) potassium 5.4 mmol/ L 3.5-5. 2 above high normal Not Available [address], [address], 09/04/2024 10:16:06 09/03/19 25 09/04/2024 COMP. METAB OLIC PANEL (14) chloride 104 mmol/ L 96-106 Not Available [address], [address], 09/04/2024 10:16:06 09/03/19 25 09/04/2024 COMP. METAB OLIC PANEL (14) carbon dioxide, total 23 mmol/ L 20-29 Not Available [address], [address], 09/04/2024 10:16:06 09/03/19 25 09/04/2024 COMP. METAB OLIC PANEL (14) calcium 9.8 mg/dL 8.7-10 .2 Not Available [address], [address], 09/04/2024 10:16:06 09/03/19 25 09/04/2024 COMP. METAB OLIC PANEL (14) protein, total 7.2 g/dL 6.0-8. 5 Not Available [address], [address], 09/04/2024 10:16:06 09/03/1909/04/2024 COMP. METAB OLIC PANEL (14) albumin 4.6 g/dL 4.3-5. 2 Not Available [address], [address], 09/04/2024 10:16:06 09/03/19 25 09/04/2024 COMP. METAB OLIC PANEL (14) globulin, total 2.6 g/dL 1.5-4. 5 Not Available [address], [address], 09/04/2024 10:16:06 09/03/19 25 09/04/2024 COMP. METAB OLIC PANEL (14) bilirubin, total 0.2 mg/dL 0.0-1. 2 Not Available [address], [address], 09/04/2024 10:16:06 09/03/19 25 09/04/2024 COMP. METAB OLIC PANEL (14) alkaline phosphatase 92 IU/L 44-121 Not Available [address], [address], 09/04/2024 10:16:06 09/03/19 25 09/04/2024 COMP. METAB OLIC PANEL (14) AST (SGOT) 16 IU/L 0-40 Not Available [facility] & [address], [address], 09/04/2024 10:16:06 09/03/1909/04/2024 COMP. METAB OLIC PANEL (14) ALT (SGPT) 11 IU/L 0-44 Not Available [address], [address], 09/04/2024 10:16:06 09/03/1909/04/2024 CARDI OVASC ULAR REPOR T interpretati on Note Suppl ement al repor t is avail able. Not Available [address], [address], 09/04/2024 10:16:07 09/03/1909/04/2024 CARDI OVASC ULAR REPOR T pdf . Not Available [address], [address], 09/04/2024 10:16:07 09/03/1909/04/2024 CBC, PLATE LET, NO DIFFE RENTI AL WBC 7.8 x10e3 /uL 3.4-10 .8 Not Available [address], [address], 09/04/2024 10:16:08 09/03/1909/04/2024 CBC, PLATE LET, NO DIFFE RENTI AL RBC 4.95 x10e6 /uL 4.14-5 .80 Not Available [address], [address], 09/04/2024 10:16:08 09/03/1909/04/2024 CBC, PLATE LET, NO DIFFE RENTI AL hemoglobin 13.8 g/dL 13.0-1 7.7 Not Available [address], [address], 09/04/2024 10:16:08 09/03/19 25 09/04/2024 CBC, PLATE LET, NO DIFFE RENTI AL hematocrit 43.6 % 37.5-5 1.0 Not Available [address], [address], 09/04/2024 10:16:08 09/03/1909/04/2024 CBC, PLATE LET, NO DIFFE RENTI AL MCV 88 fL 79-97 Not Available [address], [address], 09/04/2024 10:16:08 09/03/1909/04/2024 CBC, PLATE LET, NO DIFFE RENTI AL MCH 27.9 pg 26.6-3 3.0 Not Available [address], [address], 09/04/2024 10:16:08 09/03/1909/04/2024 CBC, PLATE LET, NO DIFFE RENTI AL MCHC 31.7 g/dL 31.5-3 5.7 Not Available [address], [address], 09/04/2024 10:16:08 09/03/19 25 09/04/2024 CBC, PLATE LET, NO DIFFE RENTI AL RDW 13.8 % 11.6-1 5.4 Not Available [address], [address], 09/04/2024 10:16:08 09/03/1909/04/2024 CBC, PLATE LET, NO DIFFE RENTI AL platelets 415 x10e3 /uL 150-45 0 Not Available [address], [address], 09/04/2024 10:16:08 09/03/19 25 09/03/2024 HbA1c (hemo globi n A1c), blood HbA1c 9.0 Not Available In-Office Order Internal Use Only DO Not Attach Compendium DO Not Attach Compendium, Do Not Delete/merge, [id number] 09/03/2024 12:01:31 10/17/19 25 10/16/2024 Gluco se [Mass /volu me] in Blood glucose [mass/volume ] in blood 94 mg/dL low: 70mg/d Lhigh: 99mg/d L GLUCO SE,BE DSIDE POCT 94 70 - 99 mg/dL 10/16 8:08 AM CDT [facility] Not Available Not Available 12/03/2024 11:57:27 10/17/19 25 10/16/2024 Gluco se [Mass /volu me] in Blood interpretati on and review of laboratory results Normal Not Available Not Available 11/19 11:57:27 10/17/19 25 10/16/2024 Methi cilli n resis tant Staph yloco ccus aureu s (MRSA ) DNA [Pres ence] in Speci men by GABRIELLE with probe detec tion methicillin resistant staphylococc us aureus (MRSA) DNA [presence] in specimen by GABRIELLE with probe detection Negati ve text: negati ve, invali d MRSA PCR RESUL T Negat yen Negat yen, Inval id 10/16 7:39 AM CDT [facility] Not Available Not Available 12/03/2024 11:57:27 10/17/19 25 10/16/2024 Methi cilli n resis tant Staph yloco ccus aureu s (MRSA ) DNA [Pres ence] in Speci men by GABRIELLE with probe detec tion interpretati on and review of laboratory results Normal Not Available Not Available 11/19 11:57:27 10/17/19 25 10/16/2024 Influ carlos virus A and B and SARS- CoV-2 (COVI D-19) and Respi rator y syncy tial virus RNA panel - Respi rator y syste m speci men by GABRIELLE with probe detec tion influenza virus A RNA [presence] in upper respiratory specimen by GABRIELLE with probe detection Negati ve text: negati ve, error FLU A Negat yen Negat yen, Error 10/16 7:05 AM CDT [facility] Not Available Not Available 12/03/2024 11:57:27 10/17/19 25 10/16/2024 Influ carlos virus A and B and SARS- CoV-2 (COVI D-19) and Respi rator y syncy tial virus RNA panel - Respi rator y syste m speci men by GABRIELLE with probe detec tion influenza virus B RNA [presence] in upper respiratory specimen by GABRIELLE with probe detection Negati ve text: negati ve FLU B Negat yen Negat yen 10/16 7:05 AM CDT [facility] Not Available Not Available 12/03/2024 11:57:27 10/17/19 25 10/16/2024 Influ carlos virus A and B and SARS- CoV-2 (COVI D-19) and Respi rator y syncy tial virus RNA panel - Respi rator y syste m speci men by GABRIELLE with probe detec tion respiratory syncytial virus RNA [presence] in respiratory system specimen by GABRIELLE with probe detection Negati ve text: negati ve RESP SYNC VIRUS Negat yen Negat yen 10/16 7:05 AM CDT [facility] Not Available Not Available 12/03/2024 11:57:27 10/17/19 25 10/16/2024 Influ carlos virus A and B and SARS- CoV-2 (COVI D-19) and Respi rator y syncy tial virus RNA panel - Respi rator y syste m speci men by GABRIELLE with probe detec tion sars-cov-2 (covid-19) N gene [presence] in specimen by GABRIELLE with probe detection NOT DETECT ED text: (refer ence range for this test IS not detect ed) SARSC OV2 NOT DETEC LEODAN (Refe rence Range for this test is Not Detec leodan) 10/16 7:05 AM CDT [facility] Not Available Not Available 12/03/2024 11:57:27 10/17/19 25 10/16/2024 Influ carlos virus A and B and SARS- CoV-2 (COVI D-19) and Respi rator y syncy tial virus RNA panel - Respi rator y syste m speci men by GABRIELLE with probe detec tion interpretati on and review of laboratory results Normal Not Available Not Available 11/19 11:57:27 10/17/19 25 10/16/2024 Basic metab olic 1999 panel - Serum or Plasm a sodium [moles/volum e] in serum or plasma 143 mmol/ L low: 136mmo l/Lhig h: 145mmo l/L SODIU M 143 136 - 145 mmol/ L 10/16 6:47 AM CDT [facility] Not Available Not Available 12/03/2024 11:57:27 10/17/19 25 10/16/2024 Basic metab olic 1999 panel - Serum or Plasm a potassium [moles/volum e] in serum or plasma 4.1 mmol/ L low: 3.5mmo l/Lhig h: 5.1mmo l/L POTAS SIUM 4.1 3.5 - 5.1 mmol/ L 10/16 6:47 AM CDT [facility] Not Available Not Available 12/03/2024 11:57:27 10/17/19 25 10/16/2024 Basic metab olic 1999 panel - Serum or Plasm a chloride [moles/volum e] in serum or plasma 113 mmol/ L low: 98mmol /Lhigh : 107mmo l/L high CHLOR JULIENNE 113 (H) 98 - 107 mmol/ L 10/16 6:47 AM CDT [facility] Not Available Not Available 12/03/2024 11:57:27 10/17/19 25 10/16/2024 Basic metab olic 1999 panel - Serum or Plasm a carbon dioxide, total [moles/volum e] in serum or plasma 22 mmol/ L low: 22mmol /Lhigh : 30mmol /L CO2, VENOU S 22 22 - 30 mmol/ L 10/16 6:47 AM CDT [facility] Not Available Not Available 12/03/2024 11:57:27 10/17/19 25 10/16/2024 Basic metab olic 2000 panel - Serum or Plasm a anion gap in serum or plasma by calculation 12.1 mmol/ L high: 18mmol /L ANION GAP 12.1 <18.0 mmol/ L 10/16 6:47 AM CDT [facility] Not Available Not Available 12/03/2024 11:57:27 10/17/19 25 10/16/2024 Basic metab olic 2000 panel - Serum or Plasm a glucose [mass/volume ] in serum or plasma 107 mg/dL low: 70mg/d Lhigh: 99mg/d L high GLUCO SE 107 (H) 70 - 99 mg/dL 10/16 6:47 AM CDT [facility] Not Available Not Available 12/03/2024 11:57:27 10/17/19 25 10/16/2024 Basic metab olic 2000 panel - Serum or Plasm a urea nitrogen [mass/volume ] in serum or plasma 24 mg/dL low: 9mg/dL high: 21mg/d L high BUN 24 (H) 9 - 21 mg/dL 10/16 6:47 AM CDT [facility] Not Available Not Available 12/03/2024 11:57:27 10/17/19 25 10/16/2024 Basic metab olic 1999 panel - Serum or Plasm a creatinine [mass/volume ] in serum or plasma 1.15 mg/dL low: 0.7mg/ dLhigh : 1.3mg/ dL CREAT ININE , BLOOD 1.15 0.70 - 1.30 mg/dL 10/16 6:47 AM CDT [facility] Not Available Not Available 12/03/2024 11:57:27 10/17/19 25 10/16/2024 Basic metab olic 2000 panel - Serum or Plasm a urea nitrogen/cre atinine [mass ratio] in serum or plasma 21 text: 12 - 20 ratio high BUN/C REATI NINE RATIO 21 (H) 12 - 20 ratio 10/16 6:47 AM CDT [facility] Not Available Not Available 12/03/2024 11:57:27 10/17/19 25 10/16/2024 Basic metab olic 2000 panel - Serum or Plasm a calcium [mass/volume ] in serum or plasma 9 mg/dL low: 8.7mg/ dLhigh : 10.5mg /dL CALCI UM 9.0 8.7 - 10.5 mg/dL 10/16 6:47 AM CDT [facility] Not Available Not Available 12/03/2024 11:57:27 10/17/19 25 10/16/2024 Basic metab olic 2000 panel - Serum or Plasm a glomerular filtration rate [volume rate/area] in serum, plasma or blood by creatinine-b ased formula (CKD-epi 2020)/1.73 sq M low: 60 GFR, ESTIM ATED >60 >=60 10/16 6:47 AM CDT [facility] Not Available Not Available 12/03/2024 11:57:27 10/17/19 25 10/16/2024 Basic metab olic 2000 panel - Serum or Plasm a glomerular filtration rate [volume rate/area] in serum, plasma or blood by creatinine-b ased formula (MDRD)/1.73 sq M among black population low: 60 GFR, EST. AFRIC AN >60 >=60 10/16 6:47 AM CDT [facility] Not Available Not Available 12/03/2024 11:57:27 10/17/19 25 10/16/2024 Basic metab olic 2000 panel - Serum or Plasm a glomerular filtration rate [volume rate/area] in serum, plasma or blood by creatinine-b ased formula (MDRD)/1.73 sq M among non black population low: 60 GFR, EST. NONAF RICAN >60 >=60 10/16 6:47 AM CDT [facility] Not Available Not Available 12/03/2024 11:57:27 10/17/19 25 10/16/2024 Basic metab olic 2000 panel - Serum or Plasm a interpretati on and review of laboratory results Abnorm al Not Available Not Available 11:57:27 10/17/19 25 10/16/2024 CBC W Auto Diffe renti al panel - Blood leukocytes [#/volume] in blood by automated count 15.02 text: 4.00 - 12.00 10(3)/ mcL high WBC 15.02 (H) 4.00 - 12.00 10(3) /mcL 10/16 3:06 AM CDT [facility] Not Available Not Available 12/03/2024 11:57:27 10/17/19 25 10/16/2024 CBC W Auto Diffe renti al panel - Blood erythrocytes [#/volume] in blood by automated count 4.9 text: 4.40 - 5.80 10(6)/ mcL RBC 4.90 4.40 - 5.80 10(6) /mcL 10/16 3:06 AM CDT [facility] Not Available Not Available 12/03/2024 11:57:27 10/17/1910/16/2024 CBC W Auto Diffe renti al panel - Blood hemoglobin [mass/volume ] in blood 14.3 g/dL low: 13g/dL high: 16.5g/ dL HEMOG LOBIN (HGB) 14.3 13.0 - 16.5 g/dL 10/16 3:06 AM CDT [facility] Not Available Not Available 12/03/2024 11:57:27 10/17/19 25 10/16/2024 CBC W Auto Diffe renti al panel - Blood hematocrit [volume fraction] of blood by automated count 42.9 % low: 38%hig h: 50% HEMAT OCRIT (HCT) 42.9 38.0 - 50.0 % 10/16 3:06 AM CD[facility] Not Available Not Available 12/03/2024 11:57:27 10/17/19 25 10/16/2024 CBC W Auto Diffe renti al panel - Blood MCV [entitic mean volume] in red blood cells by automated count 87.6 fL low: 82fLhi gh: 96fL MCV 87.6 82.0 - 96.0 fL 10/16 3:06 AM CDT [facility] Not Available Not Available 12/03/2024 11:57:27 10/17/19 25 10/16/2024 CBC W Auto Diffe renti al panel - Blood MCH [entitic mass] by automated count 29.2 pg low: 26pghi gh: 32pg MCH 29.2 26.0 - 32.0 pg 10/16 3:06 AM CDT [facility] Not Available Not Available 12/03/2024 11:57:27 10/17/19 25 10/16/2024 CBC W Auto Diffe renti al panel - Blood MCHC [entitic mass/volume] in red blood cells by automated count 33.3 g/dL low: 31g/dL high: 36g/dL MCHC 33.3 31.0 - 36.0 g/dL 10/16 3:06 AM CDT [facility] Not Available Not Available 12/03/2024 11:57:27 10/17/19 25 10/16/2024 CBC W Auto Diffe renti al panel - Blood platelets [#/volume] in blood 315 text: 140 - 440 10(3)/ mcL PLATE LET COUNT 315 140 - 440 10(3) /mcL 10/16 3:06 AM CDT [facility] Not Available Not Available 12/03/2024 11:57:27 10/17/19 25 10/16/2024 CBC W Auto Diffe renti al panel - Blood erythrocyte [distwidth] in red blood cells by automated count 13.5 % low: 11.8%h igh: 15.5% RDW 13.5 11.8 - 15.5 % 10/16 3:06 AM CDT [facility] Not Available Not Available 12/03/2024 11:57:27 10/17/19 25 10/16/2024 CBC W Auto Diffe renti al panel - Blood platelet [entitic mean volume] in blood by automated count 10.6 fL low: 8fLhig h: 12.6fL MPV 10.6 8.0 - 12.6 fL 10/16 3:06 AM CDT [facility] Not Available Not Available 12/03/2024 11:57:27 10/17/19 25 10/16/2024 CBC W Auto Diffe renti al panel - Blood neutrophils/ leukocytes in blood by automated count 87.6 % low: 40%hig h: 68% high NEUTR OPHIL S 87.6 (H) 40.0 - 68.0 % 10/16 3:06 AM CDT [facility] Not Available Not Available 12/03/2024 11:57:27 10/17/19 25 10/16/2024 CBC W Auto Diffe renti al panel - Blood lymphocytes/ leukocytes in blood by automated count 9.3 % low: 19%hig h: 49% low LYMPH OCYTE S 9.3 (L) 19.0 - 49.0 % 10/16 3:06 AM CDT [facility] Not Available Not Available 12/03/2024 11:57:27 10/17/19 25 10/16/2024 CBC W Auto Diffe renti al panel - Blood monocytes/le ukocytes in blood by automated count 2.7 % low: 3%high : 13% low MONOC YTES 2.7 (L) 3.0 - 13.0 % 10/16 3:06 AM CDT [facility] Not Available Not Available 12/03/2024 11:57:27 10/17/19 25 10/16/2024 CBC W Auto Diffe renti al panel - Blood eosinophils/ leukocytes in blood by automated count 0 % low: 0%high : 8% EOSIN OPHIL S 0.0 0.0 - 8.0 % 10/16 3:06 AM CDT [facility] Not Available Not Available 12/03/2024 11:57:27 10/17/19 25 10/16/2024 CBC W Auto Diffe renti al panel - Blood basophils/le ukocytes in blood by automated count 0.4 % low: 0%high : 1% BASOP HILS 0.4 0.0 - 1.0 % 10/16 3:06 AM CDT [facility] Not Available Not Available 12/03/2024 11:57:27 10/17/19 25 10/16/2024 CBC W Auto Diffe renti al panel - Blood neutrophils [#/volume] in blood by automated count 13.16 text: 1.40 - 5.30 10(3)/ mcL high ABSOL [place] NEUTR OPHIL S 13.16 (H) 1.40 - 5.30 10(3) /mcL 10/16 3:06 AM CDT [facility] Not Available Not Available 12/03/2024 11:57:27 10/17/19 25 10/16/2024 CBC W Auto Diffe renti al panel - Blood lymphocytes [#/volume] in blood by automated count 1.39 text: 0.90 - 3.30 10(3)/ mcL ABSOL [place] LYMPH OCYTE S 1.39 0.90 - 3.30 10(3) /mcL 10/16 3:06 AM CDT [facility] Not Available Not Available 12/03/2024 11:57:27 10/17/19 25 10/16/2024 CBC W Auto Diffe renti al panel - Blood monocytes [#/volume] in blood by automated count 0.41 text: 0.10 - 0.90 10(3)/ mcL ABSOL [place] MONOC YTES 0.41 0.10 - 0.90 10(3) /mcL 10/16 3:06 AM CDT [facility] Not Available Not Available 12/03/2024 11:57:27 10/17/19 25 10/16/2024 CBC W Auto Diffe renti al panel - Blood eosinophils [#/volume] in blood by automated count 0 text: 0.00 - 0.50 10(3)/ mcL ABSOL [place] EOSIN OPHIL 0.00 0.00 - 0.50 10(3) /mcL 10/16 3:06 AM CDT [facility] Not Available Not Available 12/03/2024 11:57:27 10/17/19 25 10/16/2024 CBC W Auto Diffe renti al panel - Blood basophils [#/volume] in blood by automated count 0.06 text: 0.00 - 0.10 10(3)/ mcL ABSOL [place] BASOP HILS 0.06 0.00 - 0.10 10(3) /mcL 10/16 3:06 AM CDT [facility] Not Available Not Available 12/03/2024 11:57:27 10/17/19 25 10/16/2024 CBC W Auto Diffe renti al panel - Blood nucleated erythrocytes /leukocytes [ratio] in blood 0 NRBC PER 100 WBC 0 10/16 3:06 AM CDT [facility] Not Available Not Available 12/03/2024 11:57:27 10/17/19 25 10/16/2024 CBC W Auto Diffe renti al panel - Blood interpretati on and review of laboratory results Abnorm al Not Available Not Available 11:57:27 10/17/19 25 10/16/2024 Gas panel - Venou s blood pH of venous blood 7.46 low: 7.34hi gh: 7.43 high PH VENOU S 7.46 (H) 7.34 - 7.43 10/16 3:04 AM CDT [facility] Not Available Not Available 12/03/2024 11:57:27 10/17/19 25 10/16/2024 Gas panel - Venou s blood carbon dioxide [partial pressure] in venous blood 23 text: 41 - 51 mmHg low PCO2 (VENO US) 23 (L) 41 - 51 mmHg 10/16 3:04 AM CDT [facility] Not Available Not Available 12/03/2024 11:57:27 10/17/19 25 10/16/2024 Gas panel - Venou s blood oxygen [partial pressure] in venous blood 133 text: 30 - 50 mmHg high PO2 VENOU S 133 (H) 30 - 50 mmHg 10/16 3:04 AM CDT [facility] Not Available Not Available 12/03/2024 11:57:27 10/17/19 25 10/16/2024 Gas panel - Venou s blood oxygen saturation in venous blood 99 % low: 60%hig h: 85% high O2 SAT JOHNNIE, MEASU RED 99 (H) 60 - 85 % 10/16 3:04 AM CD[facility] Not Available Not Available 12/03/2024 11:57:27 10/17/19 25 10/16/2024 Gas panel - Venou s blood bicarbonate [moles/volum e] in blood 16.7 mmol/ L low: 22mmol /Lhigh : 26mmol /L low BICAR BONAT E 16.7 (L) 22.0 - 26.0 mmol/ L 10/16 3:04 AM CDT [facility] Not Available Not Available 12/03/2024 11:57:27 10/17/19 25 10/16/2024 Gas panel - Venou s blood base venous -4.6 mmol/ L low: -2mmol /Lhigh : 3mmol/ L low BASE VENOU S -4.6 (L) -2.0 - 3.0 mmol/ L 10/16 3:04 AM CDT [facility] Not Available Not Available 12/03/2024 11:57:27 10/17/19 25 10/16/2024 Gas panel - Venou s blood carboxyhemog lobin/hemogl obin.total in blood 0.5 % low: 0%high : 5% CARBO XYHEM OGLOB IN 0.5 0.0 - 5.0 % 10/16 3:04 AM CDT [facility] Not Available Not Available 12/03/2024 11:57:27 10/17/1910/16/2024 Gas panel - Venou s blood methemoglobi n/hemoglobin .total in blood 0.7 % low: 0%high : 1.5% METHE MOGLO BIN 0.7 0.0 - 1.5 % 10/16 3:04 AM CDT [facility] Not Available Not Available 12/03/2024 11:57:27 10/17/1910/16/2024 Gas panel - Venou s blood Unknown Analyte Interp retati on - The usual approa ch to interp reting a VBG consis ts of using the venous measur ements to estima te the tommie thomas g arteri al values , then using these estima leodan values for clinic al decisi on-floridalma ing exactl y as if an ABG had been perfor med. The differ ence betwee n the venous measur ements and the arteri al measur ements depend s upon the site of venous sampli ng and varies among labora tories . Correl ation with arteri al blood gases - Althou gh arteri al blood gas analys is is more accura te than venous analys is for the assess ment of oxygen ation, measur ement of PCO2, pH, and HCO3 are simila r with some minor adjust ments: The centra l venous pH is usuall y 0.03 to 0.05 pH units lower than the arteri al pH and the PCO2 is usuall y 4 to 5 mmHg higher , with little or no increa se in HCO3. Mixed venous blood (ie, SvO2 drawn from a pulmon robert artery cathet er) gives result s simila r to centra l venous blood (ie, ScvO2 drawn from a centra l venous cathet er). The periph eral venous pH is approx imatel y 0.02 to 0.04 pH units lower than the arteri al pH, the venous serum HCO3 concen tratio n is approx imatel y 1 to 2 meq/L higher , and the venous PCO2 is approx imatel y 3 to 8 mmHg higher . There are no venous to arteri al conver sions for ScvO2, SvO2, or periph eral venous oxyhem oglobi n satura tion (PvO2) . Import antly, suffic ient variab ility betwee n arteri al and venous blood gas values may exist such that period ic correl ation betwee n arteri al and venous blood gas values is always dawson t. Inter preta tion - The usual appro ach to inter preti ng a VBG consi sts of using the venou s measu remen ts to estim ate the corre spond ing arter ial value s, then using these estim ated value s for clini kiersten decis ion-m aking exact ly as if an ABG had been perfo rmed. The diffe rence betwe en the venou s measu remen ts and the arter ial measu remen ts depen ds upon the site of venou s sampl ing and varie s among labor atori es. Corre latio n with arter ial blood gases - Altho ugh arter ial blood gas mariela sis is more accur ate than venou s mariela sis for the asses sment of oxyge natio n, measu remen t of PCO2, pH, and HCO3 are simil ar with some minor adjus tment s: The centr al venou s pH is usual ly 0.03 to 0.05 pH units lower than the arter ial pH and the PCO2 is usual ly 4 to 5 mmHg highe r, with littl e or no incre ase in HCO3. Mixed venou s blood (ie, SvO2 drawn from a pulmo nary arter y meredith ter) gives resul ts simil ar to centr al venou s blood (ie, ScvO2 drawn from a centr al venou s [facility] ter). The perip heral venou s pH is appro ximat charles 0.02 to 0.04 pH units lower than the arter ial pH, the venou s serum HCO3 valentino ntrat ion is appro ximat charles 1 to 2 meq/L highe r, and the venou s PCO2 is appro ximat charles 3 to 8 mmHg highe r. There are no venou s to arter ial conve rsion s for ScvO2 , SvO2, or perip heral venou s oxyhe moglo bin satur ation (PvO2 ). Impor tantl y, suffi cient varia bilit y betwe en arter ial and venou s blood gas value s may exist such that perio dic corre latio n betwe en arter ial and venou s blood gas value s is alway s prude nt. Not Available Not Available 12/03/2024 11:57:27 10/17/19 25 10/16/2024 Gas panel - Venou s blood interpretati on and review of laboratory results Abnorm al Not Available Not Available 11:57:27 10/17/19 25 10/16/2024 Lipas e [Enzy matic activ ity/v olume ] in Serum or Plasm a lipase [enzymatic activity/vol ume] in serum or plasma 8 U/L low: 8U/Lhi gh: 78U/L LIPAS E 8 8 - 78 U/L 10/16 3:36 AM CDT [facility] R LAB Not Available Not Available 12/03/2024 11:57:27 10/17/19 25 10/16/2024 Lipas e [Enzy matic activ ity/v olume ] in Serum or Plasm a interpretati on and review of laboratory results Normal Not Available Not Available 11/19 11:57:27 10/17/19 25 10/16/2024 Paresh ol [Mass /volu me] in Serum or Plasm a ethanol [mass/volume ] in serum or plasma high: 10mg/d L PARESH OL <10 <10 mg/dL 10/16 3:36 AM CDT [facility] Not Available Not Available 12/03/2024 11:57:27 10/17/19 25 10/16/2024 Paresh ol [Mass /volu me] in Serum or Plasm a interpretati on and review of laboratory results Normal Not Available Not Available 11/19 11:57:27 10/17/19 25 10/16/2024 Compr ehens yen metab olic 2000 panel - Serum or Plasm a sodium [moles/volum e] in serum or plasma 141 mmol/ L low: 136mmo l/Lhig h: 145mmo l/L SODIU M 141 136 - 145 mmol/ L 10/16 3:36 AM CDT [facility] R LAB Not Available Not Available 12/03/2024 11:57:27 10/17/19 25 10/16/2024 Compr ehens yen metab olic 1999 panel - Serum or Plasm a potassium [moles/volum e] in serum or plasma 4.2 mmol/ L low: 3.5mmo l/Lhig h: 5.1mmo l/L POTAS SIUM 4.2 3.5 - 5.1 mmol/ L 10/16 3:36 AM CDT [facility] Not Available Not Available 12/03/2024 11:57:27 10/17/19 25 10/16/2024 Compr ehens yen metab olic 1999 panel - Serum or Plasm a chloride [moles/volum e] in serum or plasma 107 mmol/ L low: 98mmol /Lhigh : 107mmo l/L CHLOR JULIENNE 107 98 - 107 mmol/ L 10/16 3:36 AM CDT [facility] R LAB Not Available Not Available 12/03/2024 11:57:27 10/17/19 25 10/16/2024 Compr ehens yen metab olic 1999 panel - Serum or Plasm a carbon dioxide, total [moles/volum e] in serum or plasma 15 mmol/ L low: 22mmol /Lhigh : 30mmol /L low CO2, VENOU S 15 (L) 22 - 30 mmol/ L 10/16 3:36 AM CDT [facility] R LAB Not Available Not Available 12/03/2024 11:57:27 10/17/19 25 10/16/2024 Compr ehens yen metab olic 1999 panel - Serum or Plasm a anion gap in serum or plasma by calculation 23.2 mmol/ L high: 18mmol /L high ANION GAP 23.2 (H) <18.0 mmol/ L 10/16 3:36 AM CDT [facility] R LAB Not Available Not Available 12/03/2024 11:57:27 10/17/19 25 10/16/2024 Compr ehens yen metab olic 2000 panel - Serum or Plasm a glucose [mass/volume ] in serum or plasma 256 mg/dL low: 70mg/d Lhigh: 99mg/d L high GLUCO SE 256 (H) 70 - 99 mg/dL 10/16 3:36 AM CDT [facility] LAB Not Available Not Available 12/03/2024 11:57:27 10/17/19 25 10/16/2024 Compr WhatsNexxens yen metab olic 2000 panel - Serum or Plasm a urea nitrogen [mass/volume ] in serum or plasma 23 mg/dL low: 9mg/dL high: 21mg/d L high BUN 23 (H) 9 - 21 mg/dL 10/16 3:36 AM CDT [facility] LAB Not Available Not Available 12/03/2024 11:57:27 10/17/19 25 10/16/2024 Compr WhatsNexxens yen metab olic 2000 panel - Serum or Plasm a creatinine [mass/volume ] in serum or plasma 1.21 mg/dL low: 0.7mg/ dLhigh : 1.3mg/ dL CREAT ININE , BLOOD 1.21 0.70 - 1.30 mg/dL 10/16 3:36 AM CDT [facility] R LAB Not Available Not Available 12/03/2024 11:57:27 10/17/19 25 10/16/2024 Compr WhatsNexxens yen metab olic 2000 panel - Serum or Plasm a urea nitrogen/cre atinine [mass ratio] in serum or plasma 19 text: 12 - 20 ratio BUN/C REATI NINE RATIO 19 12 - 20 ratio 10/16 3:36 AM CDT [facility] LAB Not Available Not Available 12/03/2024 11:57:27 10/17/19 25 10/16/2024 Compr WhatsNexxens yen metab olic 2000 panel - Serum or Plasm a protein [mass/volume ] in serum or plasma 7.9 g/dL low: 6g/dLh igh: 8g/dL TOTAL PROTE IN 7.9 6.0 - 8.0 g/dL 10/16 3:36 AM CDT [facility] Not Available Not Available 12/03/2024 11:57:27 10/17/19 25 10/16/2024 Compr WhatsNexxens yen metab olic 1999 panel - Serum or Plasm a albumin [mass/volume ] in serum or plasma 4.7 g/dL low: 3.5g/d Lhigh: 5g/dL ALBUM IN 4.7 3.5 - 5.0 g/dL 10/16 3:36 AM CDT [facility] R LAB Not Available Not Available 12/03/2024 11:57:27 10/17/19 25 10/16/2024 Compr WhatsNexxens yen metab olic 1999 panel - Serum or Plasm a albumin/glob ulin [mass ratio] in serum or plasma 1.5 low: 1high: 2.2 A/G RATIO 1.5 1.0 - 2.2 10/16 3:36 AM CDT [facility] R LAB Not Available Not Available 12/03/2024 11:57:27 10/17/19 25 10/16/2024 Compr WhatsNexxens yen metab olic 2000 panel - Serum or Plasm a calcium [mass/volume ] in serum or plasma 9.2 mg/dL low: 8.7mg/ dLhigh : 10.5mg /dL CALCI UM 9.2 8.7 - 10.5 mg/dL 10/16 3:36 AM CDT [facility] R LAB Not Available Not Available 12/03/2024 11:57:27 10/17/19 25 10/16/2024 Compr WhatsNexxens yen metab olic 1999 panel - Serum or Plasm a bilirubin.to su [mass/volume ] in serum or plasma 0.7 mg/dL low: 0.2mg/ dLhigh : 1.2mg/ dL T BILI 0.7 0.2 - 1.2 mg/dL 10/16 3:36 AM CDT [facility] Not Available Not Available 12/03/2024 11:57:27 10/17/19 25 10/16/2024 Compr WhatsNexxens yen metab olic 2000 panel - Serum or Plasm a aspartate aminotransfe rase [enzymatic activity/vol ume] in serum or plasma 28 U/L high: 43U/L SGOT (AST) 28 <43 U/L 10/16 3:36 AM CDT [facility] R LAB Not Available Not Available 12/03/2024 11:57:27 10/17/19 25 10/16/2024 Compr ehens yen metab olic 1999 panel - Serum or Plasm a alanine aminotransfe rase [enzymatic activity/vol ume] in serum or plasma 17 U/L high: 56U/L SGPT (ALT) 17 <56 U/L 10/16 3:36 AM CDT [facility] H C[facility] R LAB Not Available Not Available 12/03/2024 11:57:27 10/17/19 25 10/16/2024 Compr WhatsNexxens yen metab olic 2000 panel - Serum or Plasm a alkaline phosphatase [enzymatic activity/vol ume] in serum or plasma 78 U/L low: 40U/Lh igh: 150U/L ALKAL INE PHOSP HATAS E 78 40 - 150 U/L 10/16 3:36 AM CDT [facility] H CENT[facility] R LAB Not Available Not Available 12/03/2024 11:57:27 10/17/19 25 10/16/2024 Compr WhatsNexxens yen metab olic 2000 panel - Serum or Plasm a glomerular filtration rate [volume rate/area] in serum, plasma or blood by creatinine-b ased formula (CKD-epi 2020)/1.73 sq M low: 60 GFR, ESTIM ATED >60 >=60 10/16 3:36 AM CDT [facility] Health[facility] CENTE R LAB Not Available Not Available 12/03/2024 11:57:27 10/17/19 25 10/16/2024 Compr WhatsNexxens yen metab olic 2000 panel - Serum or Plasm a glomerular filtration rate [volume rate/area] in serum, plasma or blood by creatinine-b ased formula (MDRD)/1.73 sq M among black population low: 60 GFR, EST. AFRIC AN >60 >=60 10/16 3:36 AM CDT [facility] Not Available Not Available 12/03/2024 11:57:27 10/17/19 25 10/16/2024 Compr ehens yen metab olic 2000 panel - Serum or Plasm a glomerular filtration rate [volume rate/area] in serum, plasma or blood by creatinine-b ased formula (MDRD)/1.73 sq M among non black population low: 60 GFR, EST. NONAF RICAN >60 >=60 10/16 3:36 AM CDT [facility] Not Available Not Available 12/03/2024 11:57:27 10/17/19 25 10/16/2024 Compr ehens yen metab olic 2000 panel - Serum or Plasm a interpretati on and review of laboratory results Abnorm al Not Available Not Available 11:57:27 09/17/19 25 09/17/2024 XR, chest No observ ation record ed. [place] [address] [place], [address], 09/18/2024 10:37:26 10/16/19 25 10/15/2024 XR, [facility] [address] [place], [address], 10/16/2024 09:14:36 10/17/19 25 10/16/2024 CT, abdom en + pelvi s, w/ contr ast No observ ation record ed. [place] [address] [place], [address], 10/16/2024 15:52:49 Result Notes None recorded. Problems Name Problem SNOMED Code Status Onset Date Resolution Date Notes Provider Name and Address Organization Details Recorded Time Pneumonia 967972498 Active 2017 KAUR Cohen, [place] - [facility] 0 11:54:45 Dehydration 26638447 Active 2017 KAUR Contreras, [place] - [facility] 1 14:33:10 Mixed hypercholester olemia and hypertriglycer idemia 770766906 Active 2017 KAUR Cohen, [place] - [facility] 0 11:54:46 Diabetic ketoacidosis without coma 759478105 Active 2017 KAUR Cohen, [place] - [facility] 1 10:29:24 Type 1 diabetes mellitus 32935629 Active 2017 KAUR [place], [place] - [facility] 0 11:54:45 Problem Notes None recorded. Procedures Surgical History Date Name Laterality Status Provider Name and Address Organization Details Recorded Time Cholecystectomy completed Ruth Ann KAUR Gramajo [place] - [place] 09/03/2024 11:51:23 Imaging Results None recorded. Procedure Notes None recorded. Medical Equipment None Reported. Allergies Allergen ID Allergen Name Allergen Category Reaction Reaction Severity Criticality Documentation Date Start Date Code Code System Note Provider Name and Address Organization Details Recorded Time 52105 strawberr y allergeni c extract food rash moderate Not available 03/23/2015 33621 4 RxNorm KAUR [place], [place] - [facility] 0 11:55:03 No known drug allergies Medications Name Sig Start Date Stop Date Status Note LastModified by Organization Details LastModified Time atorvasta tin 40 mg tablet 05/06 completed Not Available Not Available Not Available atorvasta tin 20 mg tablet TAKE 1 TABLET BY MOUTH EVERY DAYNE EDS APPT BEFORE NEXT REFILL * 2024 active Not Available Not Available Not Avai lable erythromy jose alejandro 500 mg tablet TAKE [...] Not Available Not Available No t Available [employer] Ultra Test strips CHECK BLOOD SUGAR 3 TIMES DAILY OR DIRECTED active Not Available Not Available No t Available doxycycli ne monohydra te 100 mg capsule 08/04 completed Not Available Not Available Not Available pantopraz ole 40 mg tablet,de layed release TAKE 1 TABLET BY MOUTH EVERY DAY 2024 active Not Available Not Available Not Avai lable triamcino lone acetonide 0.1 % topical ointment [...] completed Not Available Not Available Not Available Alaina KwikPen U-100 Insulin 08/02 completed Not Available Not Available Not Available TRUEplus Pen Needle 32 gauge x 5/32 USE TO INJECT INSULIN DAILY. E10.65 active Not Available Not Available No t Available TechLITE Pen Needle 31 gauge x 3/16 USE TO INJECT INSULIN 4 TIMES A DAY 11/13 completed Not Available Not Available Not Available Dexcom G6 Associate Embalmer/Funeral Director USE TO CHECK GLUCOSE FOUR TIMES DAILY [...] Available Vitals Date Recorded Body height Body mass index (BMI) Body weight Oxygen saturation Oxygen saturation in Arterial blood by Pulse oximetry Heart rate Respiratory rate Systolic blood pressure Diastolic blood pressure Provider Name and Address Organization Details Last Updated DateTime 5 170.18 cm 26.3 kg/m2 81488.5 2 g 98 % 98 % 92 /min 16 /min 128 mm[Hg] 78 mm[Hg] Ruth Ann Gramajo MA [facility] SI 5 11:53:39 Date Recorded Body height Body temperature Oxygen saturation Oxygen saturation in Arterial blood by Pulse oximetry Heart rate Body mass index (BMI) Body weight Systolic blood pressure Diastolic blood pressure Provider Name and Address Organization Details Last Updated DateTime 2 170.18 cm 97.8 [degF] 96 % 96 % 75.02 /min 23 kg/m2 20688.0 8 g 110 mm[Hg] 80 mm[Hg] Jeaneth Hamm MA [facility] SI 2 15:02:22 Date Recorded Body height Body mass index (BMI) Body weight Respiratory rate Oxygen saturation Oxygen saturation in Arterial blood by Pulse oximetry Heart rate Systolic blood pressure Diastolic blood pressure Provider Name and Address Organization Details Last Updated DateTime 3 170.18 cm 22.7 kg/m2 55292.6 1 g 16 /min 97 % 97 % 95 /min 105 mm[Hg] 9 mm[Hg] Mary Melendez MA [facility] 3 14:24:52 Date Recorded Body height Body mass index (BMI) Body weight Oxygen saturation Oxygen saturation in Arterial blood by Pulse oximetry Heart rate Respiratory rate Systolic blood pressure Diastolic blood pressure Provider Name and Address Organization Details Last Updated DateTime 3 170.18 cm 23.1 kg/m2 35795.1 8 g 99 % 99 % 97 /min 16 /min 129 mm[Hg] 65 mm[Hg] Bella Bedoya MA [facility] 3 15:15:42 Date Recorded Body height Body mass index (BMI) Body weight Body temperature Oxygen saturation Oxygen saturation in Arterial blood by Pulse oximetry Heart rate Systolic blood pressure Diastolic blood pressure Provider Name and Address Organization Details Last Updated DateTime 2 170.18 cm 24.3 kg/m2 69795.8 2 g 97.3 [degF] 99 % 99 % 90 /min 138 mm[Hg] 84 mm[Hg] Telma david MA [facility] 2 11:31:36 Social History Question Answer Notes LastModified by Organizat ion Details LastModified Time Tobacco Smoking Status Never Smoker Telma Wade MA [facility] 05/30/2022 11:32:23 Animal Exposure? Yes [email or web address] Informat ion not available 03/23/2015 Are You Blind Or Do You Have Difficulty Seeing? Yes Contacts Information not available 05/30/2022 What Is Your Level Of Caffeine Consumption? None Information not available 09/03/2024 How Much Tobacco Do You Chew? None Information not available 05/06/2020 In The 14 Days Before Symptom Onset, Have You Had Close Contact With A Laboratory-ashlee rmed COVID-19 While That Case Was Ill? No Information not available 09/21/2020 In The 14 Days Before Symptom Onset, Have You Had Close Contact With A Person Who Is Under Investigation For COVID-19 While That Person Was Ill? No Information not available 09/21/2020 Have You Been To An Area Known To Be High Risk For COVID-19? No Information not available 09/21/2020 Are You Deaf Or Do You Have Serious Difficulty Hearing? No Information not available 10/31/2020 What Type Of Diet Are You Following? REGULAR [email or web address] Information not available 03/23/2015 Are There Any Guns Present In Your Home? Yes [email or web address] Information not available 03/23/2015 What Is Your Home Situation? Relatives Lives With Maternal Grandparents [email or web address] Information not available 05/09/2016 Do You Use Insect Repellent Routinely? Yes [email or web address] Information not available 03/23/2015 Live Alone Or With Others? With Others Information not available 05/06/2020 What Was The Date Of Your Most Recent Tobacco Screening? 09/03/2024 Information not available 09/03/2024 What Is Your Parents' Marital Status? Unmarried Information not available 03/23/2015 Pool Exposure No [email or web address] Information not available 03/23/2015 What Is Your Relationship Status? Single Information not available 09/21/2020 Do You Use Your Seat Belt Or Car Seat Routinely? Yes Sometimes Information not available 10/31/2020 Do You Have Any Siblings? 7 Half Sisters 1 Half Brother [email or web address] Information not available 03/23/2015 Do You Have Smoke And Carbon Monoxide Detectors In Your Home? Yes [email or web address] Information not available 03/23/2015 Are You Passively Exposed To Smoke? Yes [email or web address] Information not available 03/23/2015 How Much Tobacco Do You Smoke? No Information not available 08/04/2019 What Types Of Sporting Activities Do You Participate In? Golf [email or web address] Information not available 03/23/2015 General Stress Level Low Information not available 05/06/2020 Do You Use Sunscreen Routinely? Yes [email or web address] Information not available 03/23/2015 Has Tobacco Cessation Counseling Been Provided? No Information not available 10/31/2020 On What Date Was Tobacco Cessation Counseling Provided? 09/03/2024 Information not available 09/03/2024 Year In School 10 [email or web address] Informatio n not available 05/09/2016 Sex: Male Functional Status Question Answer Note LastModified by Organizat ion Details LastModified Time Do you use any illicit or recreational drugs? Yes Marijuana Information not available 09/21/2020 Do you or have you ever used any other forms of tobacco or nicotine? No Information not available 09/21/2020 What is your level of alcohol consumption? None Information not available 05/06/2020 Do you or have you ever used smokeless tobacco? Never used smokeless tobacco Information not available 08/04/2019 Are you currently employed? No Information not available 05/06/2020 Are you able to care for yourself? Yes Information not available 05/06/2020 Do you or have you ever used e-cigarettes or vape? Current user of electronic cigarettes Information not available 05/30/2022 What is your exercise level? Moderate Information not available 03/23/2015 Mental Status Question Answer Note LastModified by Organizat ion Details LastModified Time Do you feel stressed (tense, restless, nervous, or anxious, or unable to sleep at night)? [id number] restless Information not available 05/30/2022 Are you or have you been involved with bullying? No [email or web address] Information not available 03/23/2015 Family History Nothing Reported. Medical History Condition [...] N Anemia N Constipation N Heart Attack ([place]) N Diabetes Y Bedwetting N Heart Problems/Murmur N Seizures/Epilepsy N Asthma N Allergies N Substance Abuse N Hepatitis N Chicken Pox N Heart Failure N Autism Spectrum Disorder (ASD) N Osteoporosis N Immunizations Vaccine Type Date Status Note Provider Nam e and Address Organization Details Recorded Time Meningococcal MCV4O 6 completed Not Available [facility] 08/08/2019 02:32:35 HPV9 6 completed Not Available [facility] 08/08/2019 02:42:35 Influenza, split virus, quadrivalent, PF 6 completed Not Available [facility] 08/08/2019 02:32:34 Hep B, adolescent or pediatric 0 completed Not Available [facility] 05/07/2023 15:37:51 Hep B, adolescent or pediatric 0 completed Not Available [facility] 05/07/2023 15:37:51 Hep B, adolescent or pediatric 0 completed Not Available [facility] 05/07/2023 15:37:51 DTaP 4 completed Not Available [facility] 05/07/2023 15:37:51 DTaP 0 completed Not Available [facility] 05/07/2023 15:37:51 DTaP 2 completed Not Available [facility] 05/07/2023 15:37:51 DTaP 0 completed Not Available [facility] 05/07/2023 15:37:51 DTaP 0 completed Not Available [facility] 05/07/2023 15:37:51 Hib, unspecified formulation 0 completed Not Available [facility] 05/07/2023 15:37:51 Hib, unspecified formulation 4 completed Not Available [facility] 05/07/2023 15:37:51 Hib, unspecified formulation 0 completed Not Available [facility] 05/07/2023 15:37:51 Hib, unspecified formulation 0 completed Not Available [facility] 05/07/2023 15:37:51 IPV 0 completed Not Available [facility] 05/07/2023 15:37:51 IPV 4 completed Not Available [facility] 05/07/2023 15:37:51 IPV 0 completed Not Available [facility] 05/07/2023 15:37:51 IPV 0 completed Not Available [facility] 05/07/2023 15:37:51 pneumococcal conjugate PCV 7 1 completed Not Available [facility] 05/07/2023 15:37:51 MMR 4 completed Not Available [facility] 05/07/2023 15:37:51 MMR 2 completed Not Available [facility] 05/07/2023 15:37:51 varicella 0 completed Not Available [facility] 05/07/2023 15:37:51 varicella 2 completed Not Available [facility] 05/07/2023 15:37:51 influenza, unspecified formulation 2 completed Not Available [facility] 05/07/2023 15:37:51 influenza, unspecified formulation 0 completed Not Available [facility] 05/07/2023 15:37:51 influenza, unspecified formulation 4 completed Not Available [facility] 05/07/2023 15:37:51 meningococcal MCV4, unspecified formulation 2 completed Not Available [facility] 05/07/2023 15:37:51 Tdap 0 completed Not Available [facility] 05/07/2023 15:37:51 Hep A, ped/adol, 2 dose 6 completed Not Available [facility] 05/07/2023 15:37:51 Hep A, ped/adol, 2 dose 5 completed Not Available [facility] 05/07/2023 15:37:51 HPV, quadrivalent 4 completed Not Available [facility] 05/07/2023 15:37:51 HPV9 5 completed Not Available [facility] 08/08/2019 02:46:07 Past Encounters Encounter ID Performer Location Encounter Start Date Encounter Closed Date Diagnosis/Indication Diagnosis SNOMED-CT Code Diagnosis ICD10 Code Diagnosis Note [id number] MD María Mendez (Peds) [address] [place] [address] 03/23/2015 11:08:16 03/23/2015 12:29:38 Well child [id number] Routine adolescent care discussed safety and school performanc e discussed healthy weight with diet and exercise Type 1 ignacio betes mellitus 19886550 Routine f/u with endocrinol ogy. Daily BS monitoring . [id number] Erwin Aguilera MD [facility] (Peds) [address] [place] [address] 05/09/2016 15:46:21 05/09/2016 17:18:51 Well child [id number] Z00.129 Routine adolescent care discussed safety and school performanc e discussed healthy weight with diet and exercise Type 1 ignacio betes mellitus 70994937 E10.8 Routine f/u with endocrinol ogy. Daily BS monitoring . [id number] SACHIN Mendez [facility] [address] [place] [address] 03/18/2019 11:43:52 03/18/2019 12:43:28 Type 1 diabetes mellitus 32304442 E10.9 [id number] [facility] [address] [place] [address] 06/09/2019 17:42:26 06/09/2019 18:58:04 Uncontrolled type 1 diabetes mellitus 301567364 E10.65 [id number] SACHIN Mendez [facility] [address] [place] [address] 08/04/2019 15:54:01 08/04/2019 17:37:44 Low back pain 069539599 M54.5 Backache w ith radiating pain 782876863 M54.04 [id number] [facility] [address] [place] [address] 11/20/2019 09:29:53 11/20/2019 19:46:46 [id number] Juan Pemberton MD [facility] [address] [place] [address] 05/06/2020 09:37:24 05/06/2020 12:43:22 Type 1 diabetes mellitus 39576743 E10.9 Secondary erectile dysfunction 923254837 N52.8 Mixed hypercholesterolemia and hypertriglyceridemia 669766018 E78.2 [id number] MD Estela [facility] [address] [place] [address] 08/02/2020 10:24:01 08/03/2020 08:12:05 Uncontrolled type 1 diabetes mellitus 640142583 E10.65 [id number] Prashanth Saldana PA-C [facility] [address] [place] [address] 09/21/2020 10:21:28 09/22/2020 15:52:19 Paresthesia of lower extremity 948263952 R20.2 Gastroesop hageal reflux disease without esophagitis 197606255 K21.9 Low back pain 492601975 M54.5 Gynecomastia 2800947 N62 [id number] Juan Pemberton MD [facility] [address] [place] [address] 10/31/2020 14:28:27 11/01/2020 09:28:09 Type 1 diabetes mellitus 23790632 E10.9 Mixed hypercholesterolemia and hypertriglyceridemia 609110188 E78.2 Gastro-eso phageal reflux disease with esophagitis 542704521 K21.00 Viral gastroenteritis 11 2360701 A08.19 [id number] Juan Pemberton MD [facility] [address] [place] [address] 01/10/2021 16:45:57 01/18/2021 07:34:35 [id number] Prashanth Saldana PA-C [facility] [address] [place] [address] 05/09/2021 10:30:53 05/09/2021 11:54:35 Type 1 diabetes mellitus without complication 762100384 E10.9 [id number] Prashanth Saldana PA-C [facility] [address] [place] [address] 06/07/2021 16:49:31 06/07/2021 16:56:56 Nausea and vomiting 26451335 R11.2 Javier ordered Diphenhydr amine, was administer ed and pt was advised if didn't help to go to ER, voiced understand ing [id number] Juan Pemberton MD [facility] [address] [place] [address] 11/13/2021 14:35:16 11/13/2021 15:33:50 Type 1 diabetes mellitus 36501736 E10.9 Body mass index 20-24 - normal 793591526 Z68.23 Plantar fasciitis 20280221 003 M72.2 [id number] Prashanth Saldana PA-C [facility] [address] [place] [address] 05/30/2022 11:23:14 05/30/2022 12:00:41 Type 1 diabetes mellitus 87108717 E10.9 Diabetic p eripheral neuropathy 785909077 E11.40 Anxiety 30364002 F41.9 Gastroesop hageal reflux disease without esophagitis 847101030 K21.9 Nausea and vomiting 1693 1999 R11.2 Javier ordered Diphenhydr amine, was administer ed and pt was advised if didn't help to go to ER, voiced understand ing Gastropare sis due to type 1 diabetes mellitus 165020331 E10.43 [id number] Prashanth Saldana PA-C [facility] [address] [place] [address] 12/18/2022 14:17:54 12/19/2022 14:24:56 Type 1 diabetes mellitus 93511179 E10.9 Persistent insomnia 1919 59878 G47.09 Mixed anxi ety and depressive disorder 666051121 F41.8 Overweight 731076540 E66 .3 [id number] Prashanth Saldana PA-C [facility] [address] [place] [address] 04/16/2023 15:00:29 04/17/2023 14:26:08 Type 1 diabetes mellitus 22417223 E10.9 Marijuana user 630092716 F12.10 Overweight 730724712 E66 .3 [id number] Juan Pemberton MD [facility] [address] [place] [address] 09/03/2024 11:45:12 09/07/2024 14:32:03 Mixed hypercholesterolemia and hypertriglyceridemia 529998447 E78.2 Type 1 ignacio betes mellitus 24086324 E10.9 Body mass index 20-24 - normal 953212838 Z68.23 Health Concerns Section Related Observation LastModified by Organization Detai ls LastModified Time None Recorded Concern Status LastModified by Organization Details LastModified Time None Recorded Advance Directives Directive None Recorded Payers Encounter Date Sequence Insurance Name Policy Number Policy Blankenship Covered Member ID Blankenship Member ID Guarantor Name 11/13/2021 1 [facility]MERLY [facility] (MEDICAID HMO) [id number] Peter Shore [id number] Peter Shore 05/30/2022 1 [facility]MER[facility] (MEDICAID HMO) [id number] Peter Shore [id number] Peter Shore 12/18/2022 1 [facility] (MEDICAID HMO) [id number] Peter Shore [id number] Peter Shore 04/16/2023 1 [facility]MER[facility] (MEDICAID HMO) [id number] Peter Shore [id number] Peter Shore 09/03/2024 1 [facility]MERLY [facility] (MEDICAID HMO) [id number] Peter Shore [id number] Peter Shore Notes Date Note Type Note Provider Name and Address Organization Details Recorded Time 11/13/2021 text/html follow up on diabetes...also has bilateral temporal swelling that has been present for 3 days...some tenderness and some visual changes...feet are very painful by the end of the night... Prashanth Saldana PA-C Attn: Accounting, [address] [place], [address], [facility] 11/13/2021 15:31:10 05/30/2022 text/html hx of type 1...frequent crashes...hx of gastroparesis...gibson s pain and acidic belching..sugar currently 134...hasnt taken his GERD meds yet... Prashanth Saldana PA-C Attn: [address], [address] [place], [address], [facility] 05/30/2022 11:57:53 12/18/2022 text/html says he cannot sleep...watches movies all night...says his stress levels are high...GERD is present....still smokes a lot of weed...says he gets bored and everybody stresses him out without weed Prashanth Saldana PA-C Attn: [address], [address] [place], [address], [facility] 12/18/2022 14:47:31 04/16/2023 text/html smoked weed.. to ok a nap ..came in and appears stoned.. (when asked about weed grandmother said no and patient said yes)...reports that he has an upcoming appt with endo in april Prashanth Saldana PA-C Attn: Accounting[address] [facility], [place], [address], [facility] 04/16/2023 15:47:33 09/03/2024 text/html annual check up...says he quit etoh...says he is living healthier..has gained weight...says blood sugars are better...Nay Hamm MA [facility], [facility] 09/03/2024 12:18:11
--- OUTSIDE RECORDS SUMMARY | 2024-12-22 10:36 | XMS_ITS | Referral Summary ---
Author Organization [facility] ospital Address [address] [place] [address] Care Team Providers Care Machinist Apprentice Wood Name Role Phone Con Beltrán MD Unavailable [phone] Prashanth Saldana Primary Care Provider [phone] Sidney Russell MD Unavailable [phone] Encounters Date Type Department Care Team Description 12/21/2024 Telephone [facility] Gastroenterology at [address] [place] [address] Evelin Fischer MA 12/17/2024 Telephone [facility] Gastroenterology at [address] [place] [address] Cristin Tejada LPN 12/17/2024 8:15 AM CDT Office Visit [facility] Gastroenterology at [address] [place] [address] Peter Rivera NP Nausea and vomiting, unspecified vomiting type (Primary Dx); Abnormal CT scan, esophagus; Gastroesophageal reflux disease, unspecified whether esophagitis present; Type 1 diabetes mellitus with hyperglycemia (HCC); Tandem T slim Insulin pump in place; Marijuana use; Tobacco use disorder 12/02/2024 4:04 AM CDT - 12/02/2024 5:56 PM CDT Hospital Encounter [facility] ICU 1 [place] [address] Marcelina Cleaning MD Masetti, Paolo, MD Type 1 diabetes mellitus with ketoacidosis without coma (HCC) (Primary Dx); Gastroparesis; Nausea and vomiting, unspecified vomiting type Discharge Disposition: Left Against Medical Advice 11/30/2024 7:54 AM CDT - 11/30/2024 2:36 PM CDT Hospital Encounter [facility] ICU 1 [place] [address] Marcelina Cleaning MD Masetti, Paolo, MD Diabetic ketoacidosis without coma associated with type 1 diabetes mellitus (HCC) (Primary Dx); Hyperemesis Discharge Disposition: Left Against Medical Advice 11/05/2024 Telephone [facility] Diabetes Endocrine Care at [address] [address] Nay Alford NP 11/04/2024 Telephone [facility] Gastroenterology at [address], [place] [phone] Radhika Cunningham 11/04/2024 Telephone [facility] Diabetes Endocrine Care at [address] [place] [phone] Nay Alford, WEAPONS SPECIALIST 11/03/2024 1:15 PM CDT - 11/03/2024 2:44 PM CDT Emergency [facility] Emergency Department 1 [place] [address] Discharge Disposition: Left without being seen 10/27/2024 Results Follow-Up [facility] Diabetes Endocrine Care at [address] [place] [phone] Nay Alford, WEAPONS SPECIALIST Albumin Creatinine Ratio, Urine, Lipid panel, Thyroid Function [place], Additional followed-up results: 2 10/27/2024 8:51 AM CDT - 10/27/2024 11:59 PM CDT Hospital Encounter [address] [address] Type 1 diabetes mellitus with hyperglycemia (HCC) Discharge Disposition: Discharge to home or self care 10/27/2024 8:45 AM CDT Lab [facility] Outpatient Lab at [address] [place] [address] Type I (juvenile type) diabetes mellitus with renal manifestations, 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) (Primary Dx) 10/27/2024 8:30 AM CDT Office Visit [facility] Diabetes Endocrine Care at [address] [place] [address] Nay Alford NP Type 1 diabetes mellitus with hyperglycemia (HCC) (Primary Dx); Diabetic polyneuropathy associated with type 1 diabetes mellitus (HCC); Mixed hyperlipidemia; Tandem T slim Insulin pump in place; Nausea and vomiting, unspecified vomiting type; Cyclical vomiting 10/17/2024 6:55 AM CDT - 10/18/2024 9:22 AM CDT Hospital Encounter [facility] [address] [place] [address] Yonas Bradley MD Sinha, Chandni, MD Saeed, Salman, MD Nausea and vomiting, unspecified vomiting type (Primary Dx) Discharge Disposition: Left Against Medical Advice from Last 3 Months Allergies Active Allergy Reactions Criticality Noted Date Comments Haloperidol Nausea & Vomiting Low 02/12/2024 Medications metoclopramide (REGLAN) 10 mg tablet Take 1 tablet (10 mg total) by mouth 4 (four) times a day as needed Active naproxen (NAPROSYN) 500 mg tablet Take 1 tablet (500 mg total) by mouth 2 (two) times a day as needed 022 Active ondansetron (ZOFRAN) 4 mg tablet 022 Active blood-glucose meter kit Use daily as directed for monitoring of blood sugar for diabetes e10.65 1 kit 1 023 Active lancets misc 1 each by other route 3 (three) times a day before meals E10.65 100 each 11 023 Active pen needle, diabetic 32 gauge x needle Use to inject insulin daily. E10.65 50 each 11 023 Active blood glucose diagnostic (OneTouch Ultra Test) strip CHECK BLOOD SUGAR 3 TIMES DAILY OR DIRECTED 100 strip 11 024 Active traMADoL (ULTRAM) 50 mg tablet Take 1 tablet (50 mg total) by mouth every 6 (six) hours as needed for pain for up to 15 days 15 tablet 024 Active insulin lispro (HumaLOG) 100 unit/mL vial for injection INJECT UP TO 100 UNITS DAILY PER INSULIN PUMP SETTINGS 30 mL [address] (PROTONIX) 40 mg EC tablet Take 1 tablet (40 mg total) by mouth daily 024 Active atorvastatin (LIPITOR) 20 mg tablet Take 1 tablet (20 mg total) by mouth daily Active blood-glucose sensor (Dexcom G7 Sensor) device USE DIRECTED, CHANGE EVERY 10 DAYS 3 each 3 Active simethicone (GAS-X) 125 mg capsule Take one pill up to 4 times daily as needed for problematic cramping, bloating, gas, or nausea issues. 120 capsule 3 Active erythromycin ethylsuccinate (EES) suspension 400 mg/5 mLIndications:Gas troparesis Take 5 mls 10-15 minutes before eating 3 times daily for 28 days. 420 mL Active gabapentin (NEURONTIN) 300 mg capsule Take 1 capsule (300 mg total) by mouth 2 (two) times a day as needed (Patient reports taking this medication only as PRN) 2024 Discontinued(T herapy completed) Compro 25 mg suppository INSERT 1 SUPPOSITORY TWICE A DAY RECTALLY NEEDED. 022 2024 Discontinued(T herapy completed) insulin glargine 100 unit/mL (3 mL) pen for injection Inject 13 Units under the skin daily E10.65 use for insulin pump faillure. Pump has failed. 15 mL 11 023 2024 Discontinued(T herapy completed) Dexcom G7 Sensor device 1 Device continuously . Change every 10 days. E11.65 10 each 3 024 2024 Discontinued ondansetron ODT (ZOFRAN-ODT) 4 mg disintegrating tablet DISSOLVE 1 TABLET EVERY 6 HOURS NEEDED FOR NAUSEA AND VOMITING 025 2024 Discontinued(T herapy completed) Active Problems Problem Noted Date Diagnosed Date Abnormal CT scan, esophagus 12/17/2024 Gastroesophageal reflux disease 12/17/2024 Tobacco use disorder 12/17/2024 Type 1 diabetes mellitus with ketoacidosis witho ut coma 12/02/2024 Gastroparesis 12/02/2024 Diabetic ketoacidosis withou t coma associated with type 1 diabetes mellitus 11/30/2024 Nausea and vomiting, unspecified vomiting type 0 [...] . Assessment & Plan (07/10/2022 9:22 AM PANTRY STEWARD/STEWARDESS): This is a chronic condition which is [...] 10/25/2020 Moderate malnutrition 10/30/2019 Hypoglycemia 07/08/2019 Marijuana use 04/17/2019 Type 1 diabetes mellitus with hyperglycemia [...] of less than 70. Encouraged to contact [employer] and have a new pump shipped Discussed [...] statin Assessment & Plan (07/10/2022 9:19 AM PANTRY STEWARD/STEWARDESS): This is a chronic condition which is [...] at home. He was [facility] in [facility], but missed appointment in the adult diabetes [...] prescribed. Assessment & Plan (08/04/2020 3:50 AM PANTRY STEWARD/STEWARDESS): H/o pancreatitis attributed to hypertriglyceridemia. TGs 215 on 05/27/20. -Continue home fenofibrate and atorvastatin Resolved Problems Problem Noted Date Diagnosed Date Resolved Date Leukocytosis 04/18/2021 04/04/2022 Gallbladder sludge 04/05/2021 Marijuana abuse 04/05/2021 04/04/2022 JACK (acute kidney injury) ([facility]) 10/25/2020 04/04/2022 Diarrhea 10/25/2020 04/04/2022 Hypokalemia 08/04/2020 04/04/2022 Assessment & Plan (08/04/2020 3:59 AM PANTRY STEWARD/STEWARDESS): K to 3.2 after hyperglycemia protocol s/p 40 mEq of IV K in ED. -CTM w/ BMP Nausea and vomiting 07/05/2020 04/04/20 22 Assessment & Plan (08/04/2020 4:10 AM PANTRY STEWARD/STEWARDESS): Patient has chronic N/V, now presenting w/ 3 days of persistent N/V. No abdominal pain. Lipase 15 on presentation. +MJ use. DDx: cyclic vomiting vs. diabetic gastroparesis. -Zofran prn -Pepcid -Can trial Reglan -Encourage MJ cessation Assessment & Plan (07/05/2020 4:24 PM PANTRY STEWARD/STEWARDESS): Etiology likely DKA. Other considerations are PUD or esophagitis given that recent CT abdomen findings showed GERD vs esophagitis. One episode of hematemesis, although remained HDS and with normal Hgb upon arrival. Also considering cannabis-induced hyperemesis (UDS cannabinoid+ in 12/2019) Plan: - lipase wnl - zofran prn - compazine prn - continue home famotidine - clears, advance diet as tolerated Intractable vomiting 07/04/2020 Hypertriglyceridemia 10/30/2019 Assessment & Plan (10/30/2019 4:25 [...] 04/04/2022 Assessment & Plan (07/05/2020 4:26 PM PANTRY STEWARD/STEWARDESS): Etiology likely DKA. pH is 7.50 (alkalosis) [...] 04/04/2022 Assessment & Plan (08/04/2020 3:41 AM PANTRY STEWARD/STEWARDESS): Patient multiple past hospitalizations for DKA, most recently in June presenting w/ DKA after 3 days of persistent N/V. BG was 338 w/ AG 18, bicarb 21, ketones 3.2. BG now in the 100s and AG close after hyperglycemia protocol. A1C 10.5 08/02/20. Is a patient of Dr. Swift at [facility] medical group in [place]. Last seen on 07/25 with plan for [...] f/u. Assessment & Plan (07/05/2020 4:21 PM PANTRY STEWARD/STEWARDESS): DKA (ketones 1.4, BG 242, urine glucose [...] regimen is needed at this time. clinical educator have talked to Peter and family [...] with diabetes mellitus due to underlying condition ([facility]) 04/04/2022 EKG abnormality 04/04/2022 Choledocholithiasis 04/04/20 22 Abdominal pain 04/04/2022 Social History Tobacco Use Types Packs/Day Years Used Date Smoking Tobacco: Every Day Vaping Smokeless Tobacco: Never Tobacco Cessation:Ready to Q uit: Not Asked; Counseling Given: Not Answered Alcohol Use Standard Drinks/Week Comments No 0 (1 standard drink = 0.6 oz pur e alcohol) [facility] Utilities Answer Date Recorded In the past 12 months has e electric, gas, oil, or water [employer] threatened to shut off services in your [...] attend chur ch or yazidism services? Never 12/02/2024 Do you belong to any clubs o r organizations such as scientologist groups, unions, fraternal or athletic groups, or [...] any time in the past 12 m [facility], were you homeless or living in a longterm (including now)? No 12/02/2024 Personal Safety Answer Date Recorded Have you ever been in or are you currently in a harmful physical or emotional relationship or is someone making you feel afraid or unsafe? Denies 12/02/2024 Sex and Gender Information Value Date Recorded Sex Assigned at Not on file Legal Sex Male 4:12 AM PANTRY STEWARD/STEWARDESS Gender Identity Not on file Sexual Orientation Not on file Last Filed Vital Signs Vital Sign Reading Time Taken Comments Blood Pressure 137/84 12/17/2024 8:10 AM CDT Pulse 73 12/17/2024 8:10 AM CDT Temperature 37.5 C (99.5 F) 12/02/2024 4:46 PM CDT Respiratory Rate 10 12/02/2024 5:00 PM CDT Oxygen Saturation 96% 12/17/2024 8:10 AM CDT Inhaled Oxygen Concentration - - Weight 72.7 kg (160 lb 3.2 oz) 12/17/2024 8:10 A M CDT Height 170.2 cm (5' 7) 12/17/2024 8:10 AM CDT Body Mass Index 25.09 12/17/2024 8:10 AM CDT Plan of Treatment Upcoming Encounters Date Type Department Care Team (Latest Contact Info) Description 02/16/2025 12:30 PM CDT Hospital Encounter [facility] 1 [place] [address] Sidney Russell MD [address] [place] [address] [address] [place] [address] 02/16/2025 12:30 PM CDT - 02/16/2025 12:45 PM CDT Surgery [facility] [address] [place] [address] Sidney Russell MD [address] [facility] [address] [place] [address] ESOPHAGOGASTRODUODENOSCOPY Scheduled Procedures Name Priority Associated Diagnoses Date/Ti me ESOPHAGOGASTRODUODENOSCOPY Nausea and vomiting, unspecified vomiting type Abnormal CT scan, esophagus 02/16/2025 12:30 PM CDT Procedures Procedure Name Priority Date/Time Associated Diagnosis Comments INFECTION PREVENTION MRSA ONLY (STAPHYLOCOCCUS AUREUS) PCR STAT 12/02/2024 4:48 PM CDT EGFR Timed 12/02/2024 4:43 PM CDT BASIC METABOLIC PANEL Timed 12/02/2024 4:43 PM CDT POCT GLUCOSE DEVICE Routine 12/02/2024 4 :29 PM CDT POCT GLUCOSE DEVICE Routine 12/02/2024 1 2:13 PM CDT EGFR Timed 12/02/2024 10:25 AM CDT BASIC METABOLIC PANEL Timed 12/02/2024 10:25 AM CDT POCT GLUCOSE DEVICE Routine 12/02/2024 9 :11 AM CDT POCT GLUCOSE DEVICE Routine 12/02/2024 8 :55 AM CDT XR CHEST 1 VIEW ED 12/02/2024 8:18 AM CDT ECG 12-LEAD STAT 12/02/2024 7:50 AM CDT URINALYSIS, MICROSCOPIC ONLY STAT 12/02/2024 6:07 AM CDT BLOOD GAS, VENOUS STAT 12/02/2024 6:0 7 AM CDT URINALYSIS AND REFLEX TO MICROSCOPIC AND CULTURE STAT 12/02/2024 6:07 AM CDT INFLUENZA A/B, RSV, AND COVID-19 PCR STAT 12/02/2024 4:28 AM CDT EGFR STAT 12/02/2024 3:24 AM CDT DIFFERENTIAL AUTO STAT 12/02/2024 3:2 4 AM CDT LIPASE STAT 12/02/2024 3:24 AM CDT COMPREHENSIVE METABOLIC PANEL STAT 12/02/2024 3:24 AM CDT CBC WITH AUTO DIFFERENTIAL STAT 12/02/2024 3:24 AM CDT POCT GLUCOSE DEVICE Routine 12/02/2024 3 :21 AM CDT POCT GLUCOSE DEVICE Routine 11/30/2024 1 :58 PM CDT EGFR Timed 11/30/2024 12:51 PM CDT LACTATE Routine 11/30/2024 12:51 PM CDT BETA-HYDROXYBUTYRATE Routine 11/30/2024 12:51 PM CDT BASIC METABOLIC PANEL Timed 11/30/2024 12:51 PM CDT POCT GLUCOSE DEVICE Routine 11/30/2024 1 2:48 PM CDT POCT GLUCOSE DEVICE Routine 11/30/2024 1 1:45 AM CDT POCT GLUCOSE DEVICE Routine 11/30/2024 1 0:[address] ABDOMEN PELVIS W CONTRAST ED 11/30/2024 10:22 AM CDT MAGNESIUM STAT 11/30/2024 8:32 AM CDT EGFR STAT 11/30/2024 8:32 AM CDT HEMOGLOBIN A1C Add-On 11/30/2024 8:32 AM CDT DIFFERENTIAL AUTO STAT 11/30/2024 8:3 2 AM CDT SEPSIS LACTATE WITH REFLEX STAT 11/30/2024 8:32 AM CDT BLOOD GAS, VENOUS STAT 11/30/2024 8:3 2 AM CDT COMPREHENSIVE METABOLIC PANEL STAT 11/30/2024 8:32 AM CDT CBC WITH AUTO DIFFERENTIAL STAT 11/30/2024 8:32 AM CDT INFLUENZA A/B, RSV, AND COVID-19 PCR STAT 11/30/2024 8:32 AM CDT ECG 12-LEAD STAT 11/30/2024 8:31 AM CDT POCT GLUCOSE DEVICE Routine 11/30/2024 8 :13 AM CDT BLOOD GAS, VENOUS STAT 11/03/2024 1:3 [...] AND CULTURE STAT 10/17/2024 7:15 AM CDT DIABETES FOOT EXAM Routine 04/08/2018 from Last 3 Months or Most Recently Relevant to Health Maintenance Results * Infection Prevention MRSA Only (Staphylococcus aureus) PCR Nasal (12/02/2024 4:48 PM CDT) PCR Scrn, Methicillin resistant Staphylococcus aureus (MRSA) Not Detected Not Detected Comment: Interpretive Data Testing performed using Nucleic Acid Amplification with the [employer] Xpert MRSA NxG Assay. This assay detects target DNA from mecA, mecC and the SCCmec insertion site of Staphylococcus aureus using Real-Time PCR and has been cleared by the FDA. Performance characteristics have been verified by the [facility]. Current Interpretive Data was last revised on 2022 Nasal 12/02/2024 4:48 PM CDT 12/02/2024 4:55 PM CDT Juan Car MD [facility] Final Result [facility] [place]) 1 [facility] Department [place] [address] * eGFR (12/02/2024 4:43 PM CDT) eGFR >90 >=60 mL/min/1. 73 [...] interpretive data was last reviewed 2021. Blood 12/02/2024 4:43 PM CDT 12/02/2024 4:55 PM CDT us Juan Car MD LAB BLOOD ORDERABLES Final Resu lt [facility]SSA [facility] ([place]) 1 [facility] Department [place] [address] * (ABNORMAL) Basic metabolic panel (12/02/2024 4:43 PM CDT) Sodium 136 135 - 145 mmol/L Potassium, pl 3.9 3.3 - 4.9 mmol/L [facility] ([place]) Chloride 100 97 - 110 mmol/L [facility] ([place]) CO2 20(L) 22 - 32 mmol/L [facility] ([place]) Anion gap 16(H) 2 - 15 mmol/L [facility] ([place]) BUN 12 6 - 25 mg/dL [facility] ([place]) Creatinine 0.87 0.80 - 1.30 mg/dL [facility] ([place]) Glucose 341(H) 70 - 199 mg/dL [facility] ([place]) [...] interpretive data was last revised 2022. Calcium 8.4(L) 8.5 - 10.3 mg/dL [facility] ([place]) Blood 12/02/2024 4:43 PM CDT 12/02/2024 4:55 PM CDT us Juan Car MD LAB BLOOD ORDERABLES Final Resu lt [facility] ([place]) 1 [facility] [place] [address] * (ABNORMAL) POCT glucose (12/02/2024 4:29 PM CDT) Glucose, POC 309(H) 70 - 199 mg/dL Blood 12/02/2024 4:29 PM CDT 12/02/2024 4:29 PM CDT us Juan Car MD LAB POCT ORDERABLES - DEVICE Fi nal Result [facility] ([place]) 1 [place] [address] * POCT glucose (12/02/2024 12:13 PM CDT) Glucose, POC 156 70 - 199 mg/dL Blood 12/02/2024 12:1 3 PM CDT 12/02/2024 12:13 PM CDT us Juan Car MD LAB POCT ORDERABLES - DEVICE Fi nal Result [facility] ([place]) 1 [place] [address] * eGFR (12/02/2024 10:25 AM CDT) eGFR >90 >=60 mL/min/1. 73 [...] interpretive data was last reviewed 2021. Blood 12/02/2024 10:2 5 AM CDT 12/02/2024 10:32 AM CDT Juan Car MD LAB BLOOD ORDERABLES Final Resu lt [facility] ([place]) 1 [facility] Department [place] [address] * Basic metabolic panel (12/02/2024 10:25 AM CDT) Sodium 143 135 - 145 mmol/L Potassium, pl 3.8 3.3 - 4.9 mmol/L [facility] ([place]) Chloride 106 97 - 110 mmol/L [facility] ([place]) CO2 23 22 - 32 mmol/L [facility] ([place]) Anion gap 14 2 - 15 mmol/L [facility] ([place]) BUN 15 6 - 25 mg/dL [facility] ([place]) Creatinine 0.87 0.80 - 1.30 mg/dL [facility] ([place]) Glucose 92 70 - 199 mg/dL [facility] ([place]) [...] interpretive data was last revised 2022. Calcium 8.5 8.5 - 10.3 mg/dL [facility] ([place]) Blood 12/02/2024 10:2 5 AM CDT 12/02/2024 10:32 AM CDT Juan Car MD LAB BLOOD ORDERABLES Final Resu lt [facility] ([place]) 1 [facility] [place] [address] * POCT glucose (12/02/2024 9:11 AM CDT) Glucose, POC 70 70 - 199 mg/dL Blood 12/02/2024 9:11 AM CDT 12/02/2024 9:11 AM CDT Juan Car MD LAB POCT ORDERABLES - DEVICE Fi nal Result Performing Organization Address [facility] Co de Phone Number [facility] ([place]) 1 [facility] [place] [address] * (ABNORMAL) POCT glucose (12/02/2024 8:55 AM CDT) Glucose, POC 61(L) 70 - 199 mg/dL Blood 12/02/2024 8:55 AM CDT 12/02/2024 8:55 AM CDT Juan Car MD LAB POCT ORDERABLES - DEVICE Fi nal Result Performing Organization Address City/[facility] Co de Phone Number [facility] ([place]) 1 [facility] [place] [address] * XR Chest 1 Vw Portable (12/02/2024 8:18 AM CDT) Anatomical Region Laterality Modality Body, Chest N/A Computed Radiogr aphy 12/02/2024 8:22 AM CDT Narrative 12/02/2024 8:23 AM CDT EXAM DESCRIPTION: XR CHEST 1 VIEW REASON FOR STUDY: Diabetic ketoacidosis. Vomiting. TECHNIQUE: Frontal radiographic view of the chest COMPARISON: Chest radiograph 12/27/2020 FINDINGS: LUNGS/PLEURAE: No consolidation or pneumothorax. No large pleural effusion. HEART/MEDIASTINUM: Heart size is normal. Normal mediastinal and hilar contours. HARDWARE/LINES/TUBES: None. BONES: No acute findings. IMPRESSION: No acute radiographic abnormality. THIS IS AN ELECTRONICALLY VERIFIED FINAL REPORT 12/02/2024 8:23 AM - Electronically signed by Shaquille Contreras M.D. LB: LB Report ID: [id number] Reading Location: [id number] Procedure Note Shaquille Contreras MD - 12/02/2024 EXAM DESCRIPTION: XR CHEST 1 VIEW REASON FOR STUDY: Diabetic ketoacidosis. Vomiting. TECHNIQUE: Frontal radiographic view of the chest COMPARISON: Chest radiograph 12/27/2020 FINDINGS: LUNGS/PLEURAE: No consolidation or pneumothorax. No large pleuraleffusion. HEART/MEDIASTINUM: Heart size is normal. Normal mediastinal and hilar contours. HARDWARE/LINES/TUBES: None. BONES: No acute findings. IMPRESSION: No acute radiographic abnormality. THIS IS AN ELECTRONICALLY VERIFIED FINAL REPORT 12/02/2024 8:23 AM - Electronically signed by Shaquille Contreras M.D. LB: LB Report ID: [id number] Reading Location: [id number] us Marcelina Cleaning MD IMG XR PROCEDURES Final R esult * ECG 12 lead (12/02/2024 7:50 AM CDT) 12/02/2024 7:50 AM CDT Narrative [facility] - 12/02/2024 8:36 AM CDT Vent Rate: 90 bpm RR Interval: 665 msec MS Interval: 159 msec QRS Duration: 85 msec QT Interval: 360 msec QTC Interval: 407 msec P-R-T [place]: 84 - 76 - 76 degrees IMPRESSION: SINUS RHYTHM NONSPECIFIC T-WAVE ABNORMALITY BORDERLINE ECG NO CHANGE FROM PREVIOUS TRACING NOTED Electronically Signed By: Matt Mercado MD us Marcelina Cleaning MD ECG ORDERABLES Final Res ult [facility] * (ABNORMAL) Urinalysis reflex to microscopic and culture Urine (12/02/2024 6:07 AM CDT) Color, ur Yellow Yellow Clarity, ur Clear Clear [facility] ([place]) Specific gravity, ur 1.024 1.003 - 1.030 [facility] ([place]) pH, urine 6.5 [facility] ([place]) Comment: Interpretive Data U rine pH is affected by diet, medications, systemic acid-base disturbances, and renal tubular function. pH may affect urinary stone formation. For example, urine pH below 6.0 may help reduce the tendency for calcium phosphate stones and pH greater than 6.0 may reduce the tendency for uric acid stone formation. Source: [facility] [employer] Current Interpretive Data was last revised on 2017 Protein, ur ql 3+(A) Negative [facility] ([place]) Glucose, ur ql 4+(A) Negative [facility] ([place]) Ketones, ur 3+(A) Negative [facility] ([place]) Bilirubin, ur Negative Negative [facility] ([place]) Blood, ur Negative Negative [facility] ([place]) Urobilinogen, ur 2.0(A) <2.0 mg/dL [facility] ([place]) Nitrite, ur Negative Negative [facility] ([place]) Leukocyte esterase, ur Negative Negative [facility] ([place]) UA reflex comment Reflex to microscopic UA will be performed. [facility] ([place]) Urine 12/02/2024 6:07 AM CDT 12/02/2024 6:15 AM CDT us Marcelina Cleaning MD LAB MICROBIOLOGY - GENERA L ORDERABLES Final Result [facility] ([place]) 1 [facility] Department [place] [address] * (ABNORMAL) Urinalysis, microscopic only (12/02/2024 6:07 AM CDT) WBC, ur 0-5 0 - 5 /HPF RBC, ur 11-20(A) 0 - 2 /HPF [facility] ([place]) Mucous, ur Present(A) [facility] A ([place]) Hyaline casts, ur 1-5 0 - 10 /LPF [facility] ([place]) Culture Reflex Comment Reflex conditions for urine culture (WBC >10) not met. [facility] ([place]) Urine 12/02/2024 6:07 AM CDT 12/02/2024 6:15 AM CDT us Jen Roth MD LAB URINE ORDERABLES Final Resul t Performing Organization Address [facility]/ZIP Co de Phone Number [facility] ([place]) [address] [place] [address] [place] [place] [address] * (ABNORMAL) Blood gas, venous (12/02/2024 6:07 AM CDT) pH, Venous 7.44(H) 7.32 - 7.43 PCO2, Venous 34(L) 40 - [address] [facility] ([place]) PO2, Venous 86 mmHg [facility] ([place]) HCO3 Venous, Calculated 23 20 - 30 mmol/L [facility] ([place]) BE, venous 0 mmol/L [facility] ([place]) Comment: Interpretive Data No Reference Range Established Current Interpretive Data was last revised on 2017. Blood 12/02/2024 6:07 AM CDT 12/02/2024 6:15 AM CDT us Marcelina Cleaning MD LAB BLOOD ORDERABLES Stephie l Result Performing Organization Address City/[facility]/ZIP Co de Phone Number [facility] ([place]) 1 [facility] [place] [employer] [place] [address] * Influenza A/B, RSV, and COVID-19 PCR Nasopharyngeal (12/02/2024 4:28 AM CDT) COVID-19 RNA Negative Negative Influenza A RNA Negative Negative [facility] ([place]) Influenza B RNA Negative Negative CERN [facility] ([place]) RSV RNA Negative Negative ALBERTOMARIAN CACERES ([place]) Comment: Interpretive data: Testing performed by [facility]. This test is performed using the [employer] Xpert Xpress CoV-2/Flu/RSV plus assay. This is a multiplex, real- time reverse transcriptase PCR assay intended for the qualitative detection of nucleic acid from SARS-CoV-2, influenza A, influenza B, and respiratory syncytial virus. This assay has been cleared by the [place] Food and Drug administration. The performance characteristics have been verified by the [facility]. Results must be considered in the clinical context, and a negative result does not rule out infection. Interpretive Data last revised 2023 Nasopharyngeal 12/02/2024 4: 28 AM CDT 12/02/2024 4:30 AM CDT Narrative ALYSSA CACERES ([place]) - 12/02/2024 5:15 AM CDT Is the Patient experiencing symptoms consistent with COVID?->Yes us Jen Roth MD LAB MICROBIOLOGY - GENERAL ORDER DENIS Final Result ALYSSA [facility] ([place]) 1 [facility] Department [place] [address] * eGFR (12/02/2024 3:24 AM CDT) eGFR >90 >=60 mL/min/1. 73 [...] interpretive data was last reviewed 2021. Blood 12/02/2024 3:24 AM CDT 12/02/2024 3:35 AM CDT us Marcelina Cleaning MD LAB BLOOD ORDERABLES Stephie sasha Result [facility] ([place]) 1 [facility] Department [place] [address] * (ABNORMAL) Differential, auto (12/02/2024 3:24 AM CDT) Neutrophil abs 9.54(H) 1.50 - 6.50 K/cumm Imm gran abs 0.03 0.00 - 0.10 K/cumm [facility] ([place]) Lymphocyte abs 2.35 0.80 - 3.30 K/cumm [facility] ([place]) Monocyte abs 0.66 0.20 - 0.80 K/cumm [facility] ([place]) Eosinophil abs 0.01 0.00 - 0.50 K/cumm [facility] ([place]) Basophil abs 0.07 0.00 - 0.10 K/cumm [facility] ([place]) Neutrophil pct 75.3 % [facility] ([place]) Comment: Interpretive Data Percent cell count reference ranges are not reported, since discordance with absolute values may lead to misinterpretation of CBC data. Current Interpretive Data was last revised on 2017. Imm gran pct 0.2 % [facility] ([place]) Comment: Interpretive Data Percent cell count reference ranges are not reported, since discordance with absolute values may lead to misinterpretation of CBC data. Current Interpretive Data was last revised on 2017. Lymphocyte pct 18.6 % [facility] ([place]) Comment: Interpretive Data Percent cell count reference ranges are not reported, since discordance with absolute values may lead to misinterpretation of CBC data. Current Interpretive Data was last revised on 2017. Monocyte pct 5.2 % [facility] ([place]) Comment: Interpretive Data Percent cell count reference [...] was last revised on 2017. Basophil pct 0.6 % [facility] ([place]) Comment: Interpretive Data Percent cell count reference ranges are not reported, since discordance with absolute values may lead to misinterpretation of CBC data. Current Interpretive Data was last revised on 2017. Blood 12/02/2024 3:24 AM CDT 12/02/2024 3:35 AM CDT Marcelina Cleaning MD LAB BLOOD ORDERABLES Stephie baez Result [facility] ([place]) 1 [facility] Department [place] [address] * (ABNORMAL) CBC with auto differential (12/02/2024 3:24 AM CDT) WBC 12.66(H) 3.80 - 9.90 K/cumm Hgb 15.5 13.0 - 17.5 g/dL [facility] ([place]) Hct 46.0 38.9 - 50.3 % [facility] ([place]) Plt 334 150 - 400 K/cumm [facility] ([place]) MPV 9.9 9.1 - 12.3 fL [facility] ([place]) RBC 5.42 4.30 - 5.80 M/cumm [facility] ([place]) MCV 84.9 81.3 - 96.4 fL [facility] ([place]) MCH 28.6 27.1 - 33.3 pg [facility] ([place]) MCHC 33.7 32.3 - 35.7 g/dL [facility] ([place]) RDW CV 13.0 11.1 - 14.9 % [facility] ([place]) RDW SD 40.2 35.7 - 48.1 fL [facility] ([place]) NRBC abs 0.00 0.00 - 0.01 K/cumm [facility] ([place]) Blood Venous blood specimen / Unknown 12/02/2024 3:24 AM CDT 12/02/2024 3:35 AM CDT us Marcelina Cleaning MD LAB BLOOD ORDERABLES Stephie l Result Performing Organization Address City/[facility]/ZIP Co de Phone Number ALYSSA [facility] ([place]) 1 [facility] [place] [address] * Lipase (12/02/2024 3:24 AM CDT) Pathologist [facility] Lipase 12 10 - 99 Units/L Blood Venous blood specimen / Unknown 12/02/2024 3:24 AM CDT 12/02/2024 3:35 AM CDT Marcelina Cleaning MD LAB BLOOD ORDERABLES Stephie l Result Performing Organization Address [facility] de Phone Number [facility] ([place]) 1 [facility] [place] [address] * (ABNORMAL) Comprehensive metabolic panel (12/02/2024 3:24 AM CDT) Pathologist [facility] Sodium 141 135 - 145 mmol/L Potassium, pl 3.9 3.3 - 4.9 mmol/L [facility] ([place]) Chloride 98 97 - 110 mmol/L [facility] ([place]) CO2 22 22 - 32 mmol/L [facility] ([place]) Anion gap 21(H) 2 - 15 mmol/L [facility] ([place]) BUN 17 6 - 25 mg/dL [facility] ([place]) Creatinine 0.95 0.80 - 1.30 mg/dL [facility] ([place]) Glucose 121 70 - 199 mg/dL [facility] ([place]) Comment: Interpretive Data Fasting glucose [...] interpretive data was last revised 2022. Calcium 10.0 8.5 - 10.3 mg/dL [facility] ([place]) Bilirubin, total 0.7 0.1 - 1.2 mg/dL [facility] ([place]) Protein, pl 8.4 6.5 - 8.5 g/dL [facility] ([place]) Albumin 4.8 3.5 - 5.0 g/dL [facility] ([place]) Alk phos 88 40 - 130 Units/L [facility] ([place]) ALT 17 7 - 55 Units/L [facility] ([place]) AST 23 10 - 50 Units/L [facility] ([place]) Comment:Slightly Hemolyzed S pecimen Blood 12/02/2024 3:24 AM CDT 12/02/2024 3:35 AM CDT us Marcelina Cleaning MD LAB BLOOD ORDERABLES Stephie l Result ALYSSA [facility] ([place]) 1 [facility] [employer] [place] [address] * POCT glucose (12/02/2024 3:21 AM CDT) Glucose, POC 111 70 - 199 mg/dL Blood 12/02/2024 3:21 AM CDT 12/02/2024 3:21 AM CDT us Notinfile Unknown LAB POCT ORDERABLES - DEVICE F inal Result ALYSSA [facility] ([place]) 1 [facility] [place] [place] [address] * POCT glucose (11/30/2024 1:58 PM CDT) Glucose, POC 177 70 - 199 mg/dL Blood 11/30/2024 1:58 PM CDT 11/30/2024 1:58 PM CDT us Juan Car MD LAB POCT ORDERABLES - DEVICE Fi nal Result ALYSSA CACERES [place]) 1 [facility] [place] [address] * Lactate (11/30/2024 12:51 PM CDT) Lactate 0.8 0.7 - 2.0 mmol/L Blood 11/30/2024 12:5 1 PM CDT 11/30/2024 12:57 PM CDT us Juan Car MD LAB BLOOD ORDERABLES Final Resu lt Performing Organization Address City/[facility] Co de Phone Number ALYSSA CACERES ([place]) [address] [place] [address] [employer] [place] [address] * eGFR (11/30/2024 12:51 PM CDT) eGFR >90 >=60 mL/min/1. 73 [...] interpretive data was last reviewed 2021. Blood 11/30/2024 12:5 1 PM CDT 11/30/2024 12:57 PM CDT Juan Car MD LAB BLOOD ORDERABLES Final Resu lt Performing Organization Address City/[facility]/ZIP Co de Phone Number ALYSSA CACERES ([place]) 1 [place] [address] * Beta-hydroxybutyrate (11/30/2024 12:51 PM CDT) Beta-Hydroxybut yrate 0.5 <=0.5 mmol/L Comment:Testing performed by : [facility], [address] [place] [address], [place]., [address] Blood 11/30/2024 12:5 1 PM CDT 11/30/2024 10:37 PM CDT Juan Car MD LAB BLOOD ORDERABLES Final Resu lt Performing Organization Address [facility] Co de Phone Number ALYSSA CACERES ([place]) 1 [facility] [place] [address] * Basic metabolic panel (11/30/2024 12:51 PM CDT) Sodium 138 135 - 145 mmol/L Potassium, pl 4.5 3.3 - 4.9 mmol/L [facility] ([place]) Chloride 103 97 - 110 mmol/L [facility] ([place]) CO2 22 22 - 32 mmol/L [facility] ([place]) Anion gap 13 2 - 15 mmol/L [facility] ([place]) BUN 19 6 - 25 mg/dL [facility] ([place]) Creatinine 0.91 0.80 - 1.30 mg/dL [facility] ([place]) Glucose 192 70 - 199 mg/dL [facility] ([place]) Comment: Interpretive Data Fasting glucose [...] interpretive data was last revised 2022. Calcium 8.8 8.5 - 10.3 mg/dL [facility]SS[facility] CACERES ([place]) Blood 11/30/2024 12:5 1 PM CDT 11/30/2024 12:57 PM CDT us Juan Car MD LAB BLOOD ORDERABLES Final Resu lt ALYSSA CACERES ([place]) [address] [place] [address] [place] [address] * POCT glucose (11/30/2024 12:48 PM CDT) Glucose, POC 176 70 - 199 mg/dL Blood 11/30/2024 12:4 8 PM CDT 11/30/2024 12:48 PM CDT Juan Car MD LAB POCT ORDERABLES - DEVICE Fi nal Result Performing Organization Address [facility] Co de Phone Number ALYSSA CACERES ([place]) [address] [place] [address] [place] [address] * POCT glucose (11/30/2024 11:45 AM CDT) Glucose, POC 143 70 - 199 mg/dL Blood 11/30/2024 11:4 5 AM CDT 11/30/2024 11:45 AM CDT us Juan Car MD LAB POCT ORDERABLES - DEVICE Fi nal Result Performing Organization Address City/[facility] Co de Phone Number ALYSSA CACERES ([place]) 1 [facility] [place] [place] [address] * POCT glucose (11/30/2024 10:30 AM CDT) Glucose, POC 124 70 - 199 mg/dL Blood 11/30/2024 10:3 0 AM CDT 11/30/2024 10:30 AM CDT us Juan Car MD LAB POCT ORDERABLES - DEVICE Fi nal Result ALYSSA CACERES ([place]) 1 [facility] Department [place] [address] * CT Abdomen Pelvis W Contrast (11/30/2024 10:22 AM CDT) Anatomical Region Laterality Modality Body N/A Computed Tomogra phy 11/30/2024 10:4 6 AM CDT Narrative 11/30/2024 10:52 AM CDT EXAM DESCRIPTION: CT ABDOMEN PELVIS W CONTRAST REASON FOR STUDY: Abdominal pain, acute, nonlocalized Pt ambulatory to triage for vomiting that started today. Pt states he thinks he has food poisoning. Surgery: gallbladder TECHNIQUE: CT scan of the abdomen and [...] INTRAVENOUS SYRINGE injected via intravenous COMPARISON: CT abdomen and pelvis dated 10/17/2024 FINDINGS: LOWER CHEST: No significant pulmonary abnormalities. [...] or hydroureter. Symmetric enhancement. Urinary bladder is mildly distended. GI: There is moderate circumferential distal esophageal wall thickening. No evidence of small-bowel obstruction. There is liquid stool throughout the colon representing diarrheal state. The appendix appears mildly prominent measuring 0.8 cm in diameter, grossly unchanged since 2020 and likely anatomic variation. No significant diverticular disease. PERITONEUM: No ascites or free air. RETROPERITONEUM: No mass or adenopathy. REPRODUCTIVE: No significant abnormality. VASCULATURE: No abdominal aortic aneurysm. MUSCULOSKELETAL: No significant abnormality. Lumbosacral transitional anatomy. OTHER: No other abnormality. IMPRESSION: 1. Liquid stool within the colon representing diarrheal state. 2. Moderate circumferential distal esophageal wall thickening may be reactive to reported vomiting or represent esophagitis. THIS IS AN ELECTRONICALLY VERIFIED FINAL REPORT 11/30/2024 10:52 AM - Electronically signed by Kurt Ferro M.D. MM: MM Report ID: [id number] Reading Location: [id number] Procedure Note Kurt Ferro MD - 11/30/2024 EXAM DESCRIPTION: CT ABDOMEN PELVIS W CONTRAST REASON FOR STUDY: Abdominal pain, acute, nonlocalized Pt ambulatory to triage for vomiting that started today. Pt states hethinks he has food poisoning. Surgery: gallbladder TECHNIQUE: CT scan of the abdomen and pelvis performed with intravenousand without oral contrast using helical scanning technique with dynamic intravenous contrast injection. Reconstructed coronal and sagittal MPRimages reviewed. All images stored on PACS. Automated exposure control was usedas a dose optimization technique for this examination. CONTRAST TYPE/DOSE: 75mL of IOVERSOL 350 MG IODINE/ML INTRAVENOUSSYRINGE injected via intravenous COMPARISON: CT abdomen and pelvis dated 10/17/2024 FINDINGS: LOWER CHEST: No significant pulmonary abnormalities. [...] hydronephrosis or hydroureter. Symmetricenhancement. Urinary bladder is mildly distended. GI: There is moderate circumferential distal esophageal wall thickening.No evidence of small-bowel obstruction. There is liquid stool throughout the colon representing diarrheal state. The appendix appears mildly prominent measuring 0.8 cm in diameter, grossly unchanged since 2020 and likelyanatomic variation. No significant diverticular disease. PERITONEUM: No ascites or free air. RETROPERITONEUM: No mass or adenopathy. REPRODUCTIVE: No significant abnormality. VASCULATURE: No abdominal aortic aneurysm. MUSCULOSKELETAL: No significant abnormality. Lumbosacral transitional anatomy. OTHER: No other abnormality. IMPRESSION: 1. Liquid stool within the colon representing diarrheal state. 2. Moderate circumferential distal esophageal wall thickening may be reactive to reported vomiting or represent esophagitis. THIS IS AN ELECTRONICALLY VERIFIED FINAL REPORT 11/30/2024 10:52 AM - Electronically signed by Kurt Ferro M.D. MM: MM Report ID: [id number] Reading Location: [id number] Marcelina Cleaning MD IMG CT PROCEDURES Final R esult * Influenza A/B, RSV, and COVID-19 PCR Nasopharyngeal (11/30/2024 8:32 AM CDT) COVID-19 RNA Negative Negative Influenza A RNA Negative Negative [facility] ([place]) Influenza B RNA Negative Negative [facility] ([place]) RSV RNA Negative Negative [facility] ([place]) Comment: Interpretive data: Testing performed by [facility]. This test is performed using the [employer] Xpert Xpress CoV-2/Flu/RSV plus assay. This is a multiplex, real- time reverse transcriptase PCR assay intended for the qualitative detection of nucleic acid from SARS-CoV-2, influenza A, influenza B, and respiratory syncytial virus. This assay has been cleared by the [place] Food and Drug administration. The performance characteristics have been verified by the [facility]. Results must be considered in the clinical context, and a negative result does not rule out infection. Interpretive Data last revised 2023 Nasopharyngeal 11/30/2024 8: 32 AM CDT 11/30/2024 8:38 AM CDT Narrative [facility] ([place]) - 11/30/2024 9:16 AM CDT Is the Patient experiencing symptoms consistent with COVID?->Yes us Marcelina Claening MD LAB MICROBIOLOGY - GENERA L ORDERABLES Final Result ALYSSA CACERES ([place]) 1 [facility] [place] [address] * (ABNORMAL) Sepsis Lactate w/ Reflex (11/30/2024 8:32 AM CDT) Sepsis Lactate 3.4(H) 0.7 - 2.0 mmol/L Blood 11/30/2024 8:32 AM CDT 11/30/2024 8:35 AM CDT Marcelina Cleaning MD LAB BLOOD ORDERABLES Stephie l Result Performing Organization Address [facility]/ZIP Co de Phone Number ALYSSA CACERES ([place]) 1 [facility] [place] [address] * eGFR (11/30/2024 8:32 AM CDT) eGFR >90 >=60 mL/min/1. 73 [...] interpretive data was last reviewed 2021. Blood 11/30/2024 8:32 AM CDT 11/30/2024 8:35 AM CDT us Marcelina Cleaning MD LAB BLOOD ORDERABLES Stephie baez Result ALYSSA CACERES ([place]) 1 [facility] Department [place] [address] * (ABNORMAL) Differential, auto (11/30/2024 8:32 AM CDT) Neutrophil abs 8.26(H) 1.50 - 6.50 K/cumm Imm gran abs 0.04 0.00 - 0.10 K/cumm [facility] ([place]) Lymphocyte abs 2.35 0.80 - 3.30 K/cumm [facility] ([place]) Monocyte abs 0.86(H) 0.20 - 0.80 K/cumm [facility] ([place]) Eosinophil abs 0.19 0.00 - 0.50 K/cumm [facility] ([place]) Basophil abs 0.08 0.00 - 0.10 K/cumm [facility] ([place]) Neutrophil pct 70.2 % [facility] ([place]) Comment: Interpretive Data Percent cell count reference ranges are not reported, since discordance with absolute values may lead to misinterpretation of CBC data. Current Interpretive Data was last revised on 2017. Imm gran pct 0.3 % [facility] ([place]) Comment: Interpretive Data Percent cell count reference ranges are not reported, since discordance with absolute values may lead to misinterpretation of CBC data. Current Interpretive Data was last revised on 2017. Lymphocyte pct 19.9 % [facility] ([place]) Comment: Interpretive Data Percent cell count reference ranges are not reported, since discordance with absolute values may lead to misinterpretation of CBC data. Current Interpretive Data was last revised on 2017. Monocyte pct 7.3 % [facility] ([place]) Comment: Interpretive Data Percent cell count reference ranges are not reported, since discordance with absolute values may lead to misinterpretation of CBC data. Current Interpretive Data was last revised on 2017. Eosinophil pct 1.6 % [facility] ([place]) Comment: Interpretive [...] Data was last revised on 2017. Blood 11/30/2024 8:32 AM CDT 11/30/2024 8:35 AM CDT us Marcelina Cleaning MD LAB BLOOD ORDERABLES Stephie baez Result [facility] ([place]) 1 [facility] Department [place] [address] * (ABNORMAL) CBC with auto differential (11/30/2024 8:32 AM CDT) WBC 11.78(H) 3.80 - 9.90 K/cumm Hgb 15.4 13.0 - 17.5 g/dL [facility] ([place]) Hct 46.3 38.9 - 50.3 % [facility] ([place]) Plt 308 150 - 400 K/cumm [facility] ([place]) MPV 10.3 9.1 - 12.3 fL [facility] ([place]) RBC 5.39 4.30 - 5.80 M/cumm [facility] ([place]) MCV 85.9 81.3 - 96.4 fL [facility] ([place]) MCH 28.6 27.1 - 33.3 pg [facility] ([place]) MCHC 33.3 32.3 - 35.7 g/dL [facility] ([place]) RDW CV 13.1 11.1 - 14.9 % [facility] ([place]) RDW SD 40.5 35.7 - 48.1 fL [facility] ([place]) NRBC abs 0.00 0.00 - 0.01 K/cumm [facility] ([place]) Blood 11/30/2024 8:32 AM CDT 11/30/2024 8:35 AM CDT Marcelina Cleaning MD LAB BLOOD ORDERABLES Stephie l Result ALYSSA PayneM[place]) 1 [facility] [place] [address] * Magnesium (11/30/2024 8:32 AM CDT) Magnesium 2.2 1.4 - 2.5 mg/dL Blood 11/30/2024 8:32 AM CDT 11/30/2024 10:34 AM CDT Marcelina Cleaning MD LAB BLOOD ORDERABLES Stephie l Result Performing Organization Address [facility] de Phone Number ALYSSA CACERES ([place]) 1 [place] [address] * (ABNORMAL) Hemoglobin A1c (11/30/2024 8:32 AM CDT) Pathologist [facility] Hgb A1C 8.1(H) 4.0 - 5.6 % Estimated Average Glucose 186 mg/dL AL[facility]SSA [facility]ER[facility] ([place]) Comment: The ADA recommends reporting an estimated Average Glucose (eAG) with all Hemoglobin A1c results using the equation derived from a study of 507 normal and diabetic adults. Minority populations were underrepresented and children were not included. (Diabetes Care 31:7717-7206, 2008). The eAG is not equivalent to a fasting glucose. Blood 11/30/2024 8:32 AM CDT 11/30/2024 8:57 AM CDT Marcelina Cleaning MD LAB BLOOD ORDERABLES Stephie l Result Performing Organization Address City/[facility] Co de Phone Number ALYSSA CACERES ([place]) 1 [facility] [place] [address] * Blood gas, venous (11/30/2024 8:32 AM CDT) pH, Venous 7.39 7.32 - 7.43 PCO2, Venous 42 40 - 50 mmHg [facility] ([place]) PO2, Venous 49 mmHg [facility] ([place]) Comment: Interpretive Data No reference range established. Current interpretive data was last revised 2017. HCO3 Venous, Calculated 25 20 - 30 mmol/L [facility] ([place]) BE, venous 0 mmol/L [facility] ([place]) Comment: Interpretive Data No Reference Range Established Current Interpretive Data was last revised on 2017. Blood 11/30/2024 8:32 AM CDT 11/30/2024 8:49 AM CDT us Marcelina Cleaning MD LAB BLOOD ORDERABLES Stephie l Result [facility] ([place]) 1 [facility] Department [place] [address] * (ABNORMAL) Comprehensive metabolic panel (11/30/2024 8:32 AM CDT) Sodium 139 135 - 145 mmol/L Potassium, pl 3.8 3.3 - 4.9 mmol/L [facility] ([place]) Chloride 101 97 - 110 mmol/L [facility]) CO2 21(L) 22 - 32 mmol/L [facility] ([place]) Anion gap 17(H) 2 - 15 mmol/L [facility] ([place]) BUN 21 6 - 25 mg/dL [facility] ([place]) Creatinine 1.08 0.80 - 1.30 mg/dL [facility] ([place]) Glucose 224(H) 70 - 199 mg/dL [facility] ([place]) Comment: Interpretive Data Fasting glucose [...] interpretive data was last revised 2022. Calcium 10.1 8.5 - 10.3 mg/dL [facility] ([place]) Bilirubin, total 0.3 0.1 - 1.2 mg/dL [facility] ([place]) Protein, pl 8.1 6.5 - 8.5 g/dL [facility] ([place]) Albumin 4.6 3.5 - 5.0 g/dL [facility] ([place]) Alk phos 87 40 - 130 Units/L [facility] ([place]) ALT 16 7 - 55 Units/L [facility] ([place]) AST 21 10 - 50 Units/L [facility] ([place]) Comment:Slightly Hemolyzed S pecimen Blood 11/30/2024 8:32 AM CDT 11/30/2024 8:35 AM CDT Marcelina Cleaning MD LAB BLOOD ORDERABLES Stephie l Result Performing Organization Address City/[facility] Co de Phone Number [facility] ([place]) 1 [facility] [place] [address] * ECG 12 lead (11/30/2024 8:31 AM CDT) 11/30/2024 8:31 AM CDT Narrative [facility] - 11/30/2024 8:49 AM CDT Vent Rate: 92 bpm RR Interval: 649 msec MS Interval: 162 msec QRS Duration: 94 msec QT Interval: 349 msec QTC Interval: 399 msec P-R-T [place]: 78 - 60 - 72 degrees IMPRESSION: SINUS RHYTHM POSSIBLE LEFT ATRIAL ENLARGEMENT [-0.1mV P-WAVE IN V1/V2] BORDERLINE ECG compared to prior EKG no changes Electronically Signed By: Keny Rock MD [facility] Marcelina Cleaning MD ECG ORDERABLES Final Res ult Performing Organization Address [facility]/ZIP Co de Phone Number [facility] [employer] [facility] * POCT glucose (11/30/2024 8:13 AM CDT) Glucose, POC 193 70 - 199 mg/dL Blood 11/30/2024 8:13 AM CDT 11/30/2024 8:13 AM CDT Marcelina Cleaning MD LAB POCT ORDERABLES - DEV ICE Final Result Performing Organization Address [facility]/ZIP Co de Phone Number ALYSSA [facility] ([place]) 1 [facility] [place] [address] * Sepsis Lactate w/ Reflex (11/03/2024 1:33 PM CDT) Sepsis Lactate 1.2 0.7 - 2.0 mmol/L Blood 11/03/2024 1:33 PM CDT 11/03/2024 1:36 PM CDT Chato Daniels MD LAB BLOOD ORDERABLES Final Res ult Performing Organization Address [facility] de Phone Number ALYSSA [facility] ([place]) 1 [facility] [place] [address] * Blood gas, venous (11/03/2024 1:33 PM [...] ORDERABLES Final Res ult Performing Organization Address [facility] Co de Phone Number ALYSSA [facility] ([place]) 1 [facility] [place] [address] * eGFR (11/03/2024 1:31 PM CDT) eGFR [...] BLOOD ORDERABLES Final Res ult [facility] ([place]) 1 [facility] [place] [address] * Differential, auto (11/03/2024 1:31 PM CDT) [...] Neutrophil pct 46.8 % [facility] ([place]) Comment: Interpretive Data Percent cell count reference ranges are not reported, since discordance with absolute values may lead to misinterpretation of CBC data. Current Interpretive Data was last revised on 2017. Imm gran pct 0.2 % [facility] ([place]) Comment: Interpretive Data Percent cell [...] revised on 2017. Monocyte pct 10.1 % [facility] ([place]) Comment: Interpretive Data Percent cell count [...] revised on 2017. Basophil pct 0.7 % [facility] ([place]) Comment: Interpretive Data Percent cell count reference ranges are not reported, since discordance with absolute values may lead to misinterpretation of CBC data. Current Interpretive Data was last revised on 2017. Blood 11/03/2024 1:31 PM CDT 11/03/2024 1:37 PM CDT us Chato Daniels MD LAB BLOOD ORDERABLES Final Res ult ALYSSA CACERES ([place]) 1 [facility] Department of Laboratories [place], [place] [id number] * CBC with auto differential (11/03/2024 1:31 PM CDT) WBC 5.62 3.80 - 9.90 K/cumm Hgb 13.9 13.0 - 17.5 g/dL ALYSSA CACERES ([place]) Hct 42.7 38.9 - 50.3 % [...] NRBC abs 0.00 0.00 - 0.01 K/cumm [facility] ([place] Blood Venous blood specimen / Unknown 11/03/2024 1:31 PM CDT 11/03/2024 1:37 PM CDT Chato Daniels MD LAB BLOOD ORDERABLES Final Res ult ALYSSA CACERES ([place]) 1 [facility] [place] [place] [address] * Lipase (11/03/2024 1:31 PM CDT) Lipase 11 10 - 99 Units/L Blood Venous blood specimen / Unknown 11/03/2024 1:31 PM CDT 11/03/2024 1:37 PM CDT Chato Daniels MD LAB BLOOD ORDERABLES Final Res ult ALYSSA CACERES ([place]) 1 [facility] [place] [place] [address] * Comprehensive metabolic panel (11/03/2024 1:31 PM [...] 4.6 3.5 - 5.0 g/dL [facility] ([place]) Alk phos 79 40 - 130 Units/L [facility] ([place]) ALT 16 7 - 55 Units/L [facility] ([place]) AST 25 10 - 50 Units/L [facility] ([place]) Blood 11/03/2024 1:31 PM CDT 11/03/2024 1:37 PM CDT us Chato Daniels MD LAB BLOOD ORDERABLES Final Res ult ALYSSA [facility] ([place]) 1 [facility] [place] [address] * eGFR (10/27/2024 8:51 AM CDT) eGFR [...] CDT 10/27/2024 2:58 PM CDT Nay Alford NP LAB BLOOD ORDERABLES Final Resu lt Performing Organization Address City/[facility] Co de Phone Number ALYSSA AHMADI [id number] [place] [place] [address] * Thyroid Function [place] (10/27/2024 8:51 AM CDT) Pathologist [facility] TSH 1.51 0.30 - 4.20 mcIUnit/mL Blood 10/27/2024 8:51 AM CDT 10/27/2024 2:50 PM CDT Nay Alford NP LAB BLOOD ORDERABLES Final Resu lt Performing Organization Address City/[facility] Co de Phone Number ALYSSA AHMADI [address] Department [place] [address] * (ABNORMAL) Albumin Creatinine Ratio, Urine (10/27/2024 8:51 AM CDT) Pathologist [facility] Albumin Ur 96.3 mg/L Comment: Interpretive Data No reference range established. Current interpretive data was last revised 2018. Creatinine Ur 124.7 mg/dL ALYSSA AHMADI Comment: Interpretive Data No reference range established. Current interpretive data was last revised 2018. Albumin Creatinine Ratio, Ur 77(H) 1 - 29 mg/g ALYSSA AHMADI Urine 10/27/2024 8:51 AM CDT 10/27/2024 2:50 PM CDT us Nay Alford NP LAB URINE ORDERABLES Final Resu lt ALYSSA [address] Department [place] [address] * (ABNORMAL) Lipid panel (10/27/2024 8:51 AM [...] on 2018. Triglycerides 77 <=149 mg/dL ALYSSA AHMADI Comment: Interpretive Data [...] 3. Ashok Patel et al. WENDI Cardiol. 2020 November 19;5(5):540-548. doi: 10.1001/jamacardio.2020.0013 Current Interpretive Data was last revised on 2024. Non-HDL Cholesterol 113 mg/dL ALYSSA Comment: Interpretive Data Ages < [...] 8 hours or more?->Yes us Nay Alford WEAP[employer] SPECIALIST LAB [place]LOOD [place] [address] [address] Department [place] [address] * (ABNORMAL) Comprehensive metabolic panel (10/27/2024 8:51 [...] CDT 10/27/2024 2:50 PM CDT Nay Alford [employer] SPECIALIST LAB BLOOD ORDERABLES Final Resu lt ALYSSA AHMADI [address] Department [place] [address] * POCT glucose (10/27/2024 8:26 AM CDT) Glucose Blood, POC 232 mg/dL Blood 10/27/2024 8:26 AM CDT Nay Alford WEAPONS SPECIALIST POINT OF CARE TEST ORDERABLES F inal Result * POCT glucose (10/18/2024 7:38 AM CDT) Glucose, POC 108 70 - 199 mg/dL Blood 10/18/2024 7:38 AM CDT 10/18/2024 7:38 AM CDT Candido Romero MD LAB POCT ORDERABLES - DEVICE Fin al Result Performing Organization Address City/[facility]/ZIP Co de Phone Number ALYSSA [facility] 1 [facility] Department [place] [address] * eGFR (10/18/2024 5:18 AM CDT) eGFR [...] BLOOD ORDERABLES Final Resu lt ALYSSA [facility] ([place]) 1 [facility] Department [place] [address] * (ABNORMAL) Differential, auto (10/18/2024 5:18 AM [...] Final Resu lt ALYSSA [facility] ([place]) 1 [facility] [place] [address] * (ABNORMAL) CBC with auto differential (10/18/2024 5:18 AM CDT) WBC 11.5(H) 3.8 - 9.9 K/cumm Hgb 11.4(L) 13.0 - 17.5 g/dL [facility] ([place]) Hct 34.8(L) 38.9 - 50.3 % [facility] ([place]) Plt 251 150 - 400 K/cumm [facility] ([place]) MPV 9.8 9.1 - 12.3 fL [facility] ([place]) RBC 3.99(L) 4.30 - 5.80 M/cumm AL[facility]A [facility] ([place]) MCV 87.2 81.3 - 96.4 fL [facility] ([place]) MCH 28.6 27.1 - 33.3 pg ALYSSA [facility] ([place]) MCHC 32.8 32.3 - 35.7 g/dL [facility] ([place]) RDW CV 13.6 11.1 - 14.9 % [facility] ([place]) RDW SD 43.8 35.7 - 48.1 fL ALYSSA [facility] ([place]) NRBC abs 0.00 0.00 - 0.01 K/cumm [facility] ([place]) Blood 10/18/2024 5:18 AM CDT 10/18/2024 5:49 AM CDT Aspen Hernandez MD LAB BLOOD ORDERABLES Final Resu lt ALYSSA CACERES ([place]) 1 [facility] [place] [place] [address] * Phosphorus (10/18/2024 5:18 AM CDT) Phosphorus, pl 3.0 2.3 - 4.5 mg/dL Blood 10/18/2024 5:18 AM CDT 10/18/2024 5:49 AM CDT Aspen Hernandez MD LAB BLOOD ORDERABLES Final Resu lt ALYSSA CACERES ([place]) 1 [facility] [place] [place] [address] * Magnesium (10/18/2024 5:18 AM CDT) Magnesium 2.0 1.4 - 2.5 mg/dL Blood 10/18/2024 5:18 AM CDT 10/18/2024 5:49 AM CDT Aspen Hernandez MD LAB BLOOD ORDERABLES Final Resu lt ALYSSA CACERES ([place]) 1 [facility] [place] [address] * (ABNORMAL) Basic metabolic panel (10/18/2024 5:18 AM CDT) Sodium 139 135 - 145 mmol/L Potassium, pl 3.4 3.3 - 4.9 mmol/L [facility] ([place]) Chloride 105 97 - 110 mmol/L [facility] ([place]) CO2 22 22 - 32 mmol/L [facility] ([place]) Anion gap 12 2 - 15 mmol/L [facility] ([place]) BUN 9 6 - 25 mg/dL [facility] ([place]) Creatinine 0.88 0.80 - 1.30 mg/dL [facility] ([place]) Glucose 115 70 - 199 mg/dL [facility] ([place]) Comment: Interpretive Data Fasting glucose [...] 2022. Calcium 8.1(L) 8.5 - 10.3 mg/dL [facility] ([place]) Blood 10/18/2024 5:18 AM CDT 10/18/2024 5:49 AM CDT Aspen Hernandez MD LAB BLOOD ORDERABLES Final Resu lt ALYSSA [facility] ([place]) 1 [facility] Department [place] [address] * POCT glucose (10/18/2024 2:33 AM CDT) Glucose, POC 103 70 - 199 mg/dL Blood 10/18/2024 2:33 AM CDT 10/18/2024 2:33 AM CDT us Aspen Hernandez MD LAB POCT ORDERABLES - DEVICE Fi nal Result ALYSSA CACERES ([place]) 1 [facility] [employer] [place] [address] * POCT glucose (10/18/2024 12:08 AM CDT) Glucose, POC 114 70 - 199 mg/dL Blood 10/18/2024 12:0 8 AM CDT 10/18/2024 12:08 AM CDT us Aspen Hernandez MD LAB POCT ORDERABLES - DEVICE Fi nal Result Performing Organization Address City/[facility]/ZIP Co de Phone Number ALYSSA CACERES ([place]) 1 [facility] [employer] [place] [address] * POCT glucose (10/17/2024 4:25 PM CDT) Glucose, POC 131 70 - 199 mg/dL Blood 10/17/2024 4:25 PM CDT 10/17/2024 4:25 PM CDT us Aspen Hernandez MD LAB POCT ORDERABLES - DEVICE Fi nal Result Performing Organization Address City/[facility]/ZIP Co de Phone Number ALYSSA CACERES ([place]) 1 [facility] [employer] [place] [address] * POCT glucose (10/17/2024 1:34 PM CDT) Glucose, POC 128 70 - 199 mg/dL Blood 10/17/2024 1:3 4 PM CDT 10/17/2024 1:34 PM CDT us Aspen Hernandez MD LAB POCT ORDERABLES - DEVICE Fi nal Result ALYSSA CACERES ([place]) 1 [facility] [place] [address] * eGFR (10/17/2024 9:42 AM CDT) Pathologist [facility] eGFR >90 >=60 mL/min/1. 73 m2 Comment: [...] MD LAB BLOOD ORDERABLES Final R esult [facility] ([place]) 1 [facility] Department [place] [address] * (ABNORMAL) Basic metabolic panel (10/17/2024 9:42 AM CDT) Pathologist [facility] Sodium 138 135 - 145 mmol/L Potassium, pl 3.6 3.3 - 4.9 mmol/L [facility] ([place]) Chloride 105 97 - 110 mmol/L [facility] ([place]) CO2 23 22 - 32 mmol/L [facility] ([place]) Anion gap 11 2 - 15 mmol/L [facility] ([place]) BUN 9 6 - 25 mg/dL [facility] ([place]) Creatinine 0.76(L) 0.80 - 1.30 mg/dL [facility] ([place]) Glucose 121 70 - 199 mg/dL [facility] ([place]) Comment: Interpretive Data Fasting glucose [...] BLOOD ORDERABLES Final R esult ALYSSA CACERES ([place]) 1 [facility] [place] [address] * CT Abdomen Pelvis W Contrast (10/17/2024 [...] Bam Choudhary M.D. JA: OLMAN Report ID: [id number] Reading Location: [id number] Procedure Note Bam Choudhary MD - 10/17/2024 [...] Bam Choudhary M.D. JA: OLMAN Report ID: [id number] Reading Location: [place] [address] Yonas Bradley MD IMG CT PROCEDURES Final Resu lt * POCT glucose (10/17/2024 7:29 AM CDT) Pathologist [facility] Glucose, POC 177 70 - 199 mg/dL Blood 10/17/2024 7:29 AM CDT 10/17/2024 7:29 AM CDT Yonas Bradley MD LAB POCT ORDERABLES - DEVICE Final Result ALYSSA CACERES ([place]) 1 [facility] Department [place] [address] * (ABNORMAL) Blood gas, venous (10/17/2024 7:19 AM CDT) pH, Venous 7.50(H) 7.32 - 7.43 PCO2, Venous 31(L) 40 - 50 mmHg ALYSSA CACERES ([place]) PO2, Venous 161 mmHg [facility] A [...] ORDERABLES Final R esult Performing Organization Address City/[facility]/ZIP Co de Phone Number ALYSSA CACERES ([place]) 1 [facility] [place] [place] [address] * eGFR (10/17/2024 7:15 AM CDT) eGFR [...] of Race in Diagnosing Kidney Disease, JASN 1). The CKD-EPI equation should not be used for patients with unstable renal function and has not been validated in children and those over 70. Current interpretive data was last reviewed 2021. Blood 10/17/2024 7:15 AM CDT 10/17/2024 7:23 AM CDT Yonas Bradley MD LAB BLOOD ORDERABLES Final R esult Performing Organization Address City/[facility]/ZIP Co de Phone Number ALYSSA CACERES ([place]) 1 [facility] [place] [place] [address] * (ABNORMAL) Differential, auto (10/17/2024 7:15 AM CDT) Neutrophil abs 14.6(H) 1.5 - 6.5 K/cumm Imm gran abs 0.2(H) 0.0 - 0.1 K/cumm [facility] ([place]) Lymphocyte abs 3.0 0.8 - 3.3 K/cumm [facility] ([place]) Monocyte abs 1.7(H) 0.2 - 0.8 K/cumm [facility] ([place]) Eosinophil abs 0.0 0.0 - 0.5 K/cumm [facility] ([place]) Basophil abs 0.1 0.0 - 0.1 K/cumm [facility] ([place]) Neutrophil pct 74.9 % [facility] ([place]) Comment: Interpretive Data Percent cell count reference ranges are not reported, since discordance with absolute values may lead to misinterpretation of CBC data. Current Interpretive Data was last revised on 2017. Imm gran pct 0.8 % [facility] ([place]) Comment: Interpretive Data Percent cell count reference ranges are not reported, since discordance with absolute values may lead to misinterpretation of CBC data. Current Interpretive Data was last revised on 2017. Lymphocyte pct 15.4 % [facility] ([place]) Comment: Interpretive Data Percent cell count reference ranges are not reported, since discordance with absolute values may lead to misinterpretation of CBC data. Current Interpretive Data was last revised on 2017. Monocyte pct 8.5 % [facility] ([place]) Comment: Interpretive Data Percent cell count reference ranges are not reported, since discordance with absolute values may lead to misinterpretation of CBC data. Current Interpretive Data was last revised on 2017. Eosinophil pct 0.1 % [facility] ([place]) Comment: Interpretive Data Percent cell count reference ranges are not reported, since discordance with absolute values may lead to misinterpretation of CBC data. Current Interpretive Data was last revised on 2017. Basophil pct 0.3 % [facility] ([place]) Comment: Interpretive Data Percent cell count reference ranges are not reported, since discordance with absolute values may lead to misinterpretation of CBC data. Current Interpretive Data was last revised on 2017. Blood 10/17/2024 7:15 AM CDT 10/17/2024 7:23 AM CDT us Yonas Bradley MD LAB BLOOD ORDERABLES Final R esult ALYSSA [facility] ([place]) 1 [facility] [place] [address] * (ABNORMAL) Urinalysis reflex to microscopic and [...] tendency for uric acid stone formation. Source: [facility] [employer] Current Interpretive Data was last revised on [...] MICROBIOLOGY - GENERAL O RDERABLES Final Result ALYSSA CACERES ([place]) 1 [facility] [place] [address] * (ABNORMAL) CBC with auto differential (10/17/2024 7:15 AM CDT) WBC 19.5(H) 3.8 - 9.9 K/cumm Hgb 13.2 13.0 - 17.5 g/dL [facility] ([place]) Hct 38.9 38.9 - 50.3 % [facility] ([place]) Plt 310 150 - 400 K/cumm [facility] ([place]) MPV 9.9 9.1 - 12.3 fL [facility] ([place]) RBC 4.56 4.30 - 5.80 M/cumm [facility] ([place]) MCV 85.3 81.3 - 96.[address] [facility] ([place]) MCH 28.9 27.1 - 33.[address] [facility] ([place]) MCHC 33.9 32.3 - 35.7 g/dL [facility] ([place]) RDW CV 13.7 11.1 - 14.9 % [facility] ([place]) RDW SD 43.2 35.7 - 48.1 fL [facility] ([place]) NRBC abs 0.00 0.00 - 0.01 K/cumm [facility] ([place] Blood Venous blood specimen / Unknown 10/17/2024 7:15 AM CDT 10/17/2024 7:23 AM CDT Yonas Bradley MD LAB BLOOD ORDERABLES Final R esult ALYSSA CACERES ([place]) 1 [facility] [place] [address] * (ABNORMAL) Drugs of Abuse Screen, Urine without Confirmation (10/17/2024 7:15 AM CDT) Amphetamine, ur Not Detected CutOff 500ng/mL Comment: [...] Not Detected CutOff 25 ng/mL ALYSSA CACERES ([place]) Comment: Interpretive Data - Phencyclidine: Samples containing [...] URINE ORDERABLES Final R esult ALYSSA CACERES ([place]) 1 [facility] [place] [address] * (ABNORMAL) Urinalysis, microscopic only (10/17/2024 7:15 AM CDT) [facility] WBC, ur 0-5 0 - 5 /HPF RBC, ur 0-2 0 - 2 /HPF [facility] ([place]) Mucous, ur Present(A) [facility] A ([place]) Culture Reflex Comment Reflex conditions for urine culture (WBC >10) not met. [facility] ([place]) Urine 10/17/2024 7:15 AM CDT 10/17/2024 7:23 AM CDT Yonas Bradley MD LAB URINE ORDERABLES Final R esult Performing Organization Address [facility]/ZIP Co de Phone Number [facility] ([place]) 1 [place] [address] * Lipase (10/17/2024 7:15 AM CDT) [facility] Lipase 10 10 - 99 Units/L Blood 10/17/2024 7:15 AM CDT 10/17/2024 7:23 AM CDT Yonas Bradley MD LAB BLOOD ORDERABLES Final R esult Performing Organization Address City/[facility]/ZIP Co de Phone Number [facility] ([place]) 1 [place] [address] * (ABNORMAL) Comprehensive metabolic panel (10/17/2024 7:15 AM CDT) [facility] Sodium 139 135 - 145 mmol/L Potassium, pl 3.7 3.3 - 4.9 mmol/L [facility] ([place]) Chloride 100 97 - 110 mmol/L [facility] ([place]) CO2 22 22 - 32 mmol/L [facility] ([place]) Anion gap 17(H) 2 - 15 mmol/L [facility] ([place]) BUN 10 6 - 25 mg/dL [facility] ([place]) Creatinine 0.85 0.80 - 1.30 mg/dL [facility] [...] LAB BLOOD ORDERABLES Final R esult [facility]A [facility] ([place]) 1 [facility] [place] [address] * DIABETES FOOT EXAM (04/08/2018) Pathologist [facility] Diabetic Foot Exam Normal Historical Provider HEALTH MAINTENANCE Final Result from Last 3 Months or Most Recently Relevant to Health Maintenance Insurance [facility] ID[place] 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 DIRECTIVE 05/26/2020 6:51 PM ADVANCE DIRECTIVE 05/26/2020 * Full Code (Latest Code Status on File) Date Activated Date Inactivated Comments 12/02/2024 8:01 AM 12/02/2024 10:17 PM * Full Code Date Activated Date Inactivated Comments 11/30/2024 10:17 AM 11/30/2024 7:02 PM * Full Code Date Activated Date Inactivated Comments 10/17/2024 11:49 AM 10/18/2024 1:28 PM * Full Code Date Activated Date Inactivated Comments 04/19/2021 2:11 PM 04/19/2021 7:30 PM * Full Code Date Activated Date Inactivated Comments 04/18/2021 9:58 PM 04/19/2021 2:11 PM 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
--- OUTSIDE RECORDS SUMMARY | 2024-12-22 10:36 | XMS_ITS | Clinical Summary ---
Author Organization [facility] ospital Address [address] [place] [address] Care Team Providers Care Contract Designer Name Role Phone Con Beltrán MD Unavailable [phone] Prashanth Saldana Primary Care Provider [phone] Sidney Russell MD Unavailable Allergies Active Allergy Reactions Criticality Noted Date [...] Active pen needle, diabetic 32 gauge x /32 [...] tablet (40 mg total) by mouth daily Active atorvastatin (LIPITOR) 20 mg tablet Take [...] . Assessment & Plan (07/10/2022 9:22 AM PUMP PRESS OPERATOR): This is a chronic condition which is not at goal. Unable to Download as he has a new pump and is not connected on [employer]. Type of insulin pump- tandem T slim [...] of less than 70. Encouraged to contact [employer] and have a new pump shipped Discussed the importance of taking insulin and basal bolus insulin was ordered According to his download he is had the pump on about 6/ days Hopefully he will reestablish is pump [...] statin Assessment & Plan (07/10/2022 9:19 AM PUMP PRESS OPERATOR): This is a chronic condition which is [...] at home. He was seen in [facility], but missed appointment in the [...] prescribed. Assessment & Plan (08/04/2020 3:50 AM PUMP PRESS OPERATOR): H/o pancreatitis attributed to hypertriglyceridemia. TGs 215 on 05/27/20. -Continue home fenofibrate and atorvastatin Resolved Problems Problem Noted Date Diagnosed Date Resolved Date Leukocytosis 04/18/2021 04/04/2022 Gallbladder sludge 04/05/2021 Marijuana abuse 04/05/2021 04/04/2022 JACK (acute kidney injury) ([facility]) 10/25/2020 04/04/2022 Diarrhea 10/25/2020 04/04/2022 Hypokalemia 08/04/2020 04/04/2022 Assessment & Plan (08/04/2020 3:59 AM PUMP PRESS OPERATOR): K to 3.2 after hyperglycemia protocol s/p 40 mEq of IV K in ED. -CTM w/ BMP Nausea and vomiting 07/05/2020 04/04/20 22 Assessment & Plan (08/04/2020 4:10 AM PUMP PRESS OPERATOR): Patient has chronic N/V, now presenting w/ 3 days of persistent N/V. No abdominal pain. Lipase 15 on presentation. +MJ use. DDx: cyclic vomiting vs. diabetic gastroparesis. -Zofran prn -Pepcid -Can trial Reglan -Encourage MJ cessation Assessment & Plan (07/05/2020 4:24 PM PUMP PRESS OPERATOR): Etiology likely DKA. Other considerations are PUD [...] 04/04/2022 Assessment & Plan (07/05/2020 4:26 PM PUMP PRESS OPERATOR): Etiology likely DKA. pH is 7.50 (alkalosis) [...] 04/04/2022 Assessment & Plan (08/04/2020 3:41 AM PUMP PRESS OPERATOR): Patient multiple past hospitalizations for DKA, most recently in June presenting w/ DKA after 3 days of persistent N/V. BG was 338 w/ AG 18, bicarb 21, ketones 3.2. BG now in the 100s and AG close after hyperglycemia protocol. A1C 10.5 08/02/20. Is a patient of Dr. Swift at [facility] medical group in [place]. Last seen on 07/25 with plan for [...] f/u. Assessment & Plan (07/05/2020 4:21 PM PUMP PRESS OPERATOR): DKA (ketones 1.4, BG 242, urine glucose [...] insulin regimen is needed at this time. home care nurse have talked to Peter and family about [...] diabetes mellitus due to underlying condition ([facility]) 04/04/2022 EKG abnormality 04/04/2022 Choledocholithiasis 04/04/20 22 Abdominal pain 04/04/2022 Encounters Date Type Department Care Team Description 12/21/2024 Telephone [facility] Gastroenterology at [address] [place] [address] Evelin Fischer MA 12/17/2024 8:15 AM CDT Office Visit [facility] Gastroenterology at [address] [place] [address] Peter Rivera NP Nausea and vomiting, unspecified vomiting type (Primary Dx); Abnormal CT scan, esophagus; Gastroesophageal reflux disease, unspecified whether esophagitis present; Type 1 diabetes mellitus with hyperglycemia (HCC); Tandem T slim Insulin pump in place; Marijuana use; Tobacco use disorder 12/17/2024 Telephone [facility] Gastroenterology at [address] [place] [address] Cristin Tejada LPN 12/02/2024 4:04 AM CDT - 12/02/2024 5:56 PM CDT Hospital Encounter [facility] [address] [place] [address] Marcelina Cleaning MD Masetti, Paolo, MD Type 1 diabetes mellitus with ketoacidosis without coma (HCC) (Primary Dx); Gastroparesis; Nausea and vomiting, unspecified vomiting type Discharge Disposition: Left Against Medical Advice 11/30/2024 7:54 AM CDT - 11/30/2024 2:36 PM CDT Hospital Encounter [facility] [address] [place] [address] Marcelina Cleaning MD Masetti, Paolo, MD Diabetic ketoacidosis without coma associated with type 1 diabetes mellitus (HCC) (Primary Dx); Hyperemesis Discharge Disposition: Left Against Medical Advice 11/05/2024 Telephone [facility] Endocrine Care at [address] [phone] Nay Alford NP 11/04/2024 Telephone [facility] Gastroenterology at [address] [place] [address] Radhika Cunningham 11/04/2024 Telephone [facility] Diabetes Endocrine Care at [address] [phone] Nay Alford NP 11/03/2024 1:15 PM CDT - 11/03/2024 2:44 PM CDT Emergency [facility] [address] [place] [address] Discharge Disposition: Left without being seen 10/27/2024 8:51 AM CDT - 10/27/2024 11:59 PM CDT Hospital Encounter [address] [address] Type 1 diabetes mellitus with hyperglycemia (HCC) Discharge Disposition: Discharge to home or self care 10/27/2024 8:45 AM CDT Lab [facility] Outpatient Lab at [address] [phone] Type I (juvenile type) diabetes mellitus with renal manifestations, 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) (Primary Dx) 10/27/2024 8:30 AM CDT Office Visit [facility] Diabetes Endocrine Care at [address] [phone] Nay Alford NP Type 1 diabetes mellitus with hyperglycemia (HCC) (Primary Dx); Diabetic polyneuropathy associated with type 1 diabetes mellitus (HCC); Mixed hyperlipidemia; Tandem T slim Insulin pump in place; Nausea and vomiting, unspecified vomiting type; Cyclical vomiting 10/27/2024 Results Follow-Up [facility] Diabetes Endocrine Care at [address] [phone] Nay Alford NP Albumin Creatinine Ratio, Urine, Lipid panel, Thyroid Function [place], Additional followed-up results: 2 10/17/2024 6:55 AM CDT - 10/18/2024 9:22 AM CDT Hospital Encounter [facility] [address] [place] [address] Yonas Bradley MD Sinha, Chandni, MD Saeed, Salman, MD Nausea and vomiting, unspecified vomiting type (Primary Dx) Discharge Disposition: Left Against Medical Advice from Last 3 Months Medical History Medical History Date Comments Type 1 diabetes mellitus (HCC) D iabetes type 1; Comments: [facility] 11/23/2015 - Hx Other Medical high lipids; Co mments: [facility] 11/23/2015 - Hx Other Medical pancreatitis; C omments: [facility] 11/23/2015 - Pancreatitis Asthma Hypertension [...] drink = 0.6 oz pur e alcohol) [employer] Util[employer] Answer Date Recorded In the past 12 months has e electric, gas, oil, or water [employer] threatened to shut off services in your [...] often do you attend chur ch or mandaen services? Never 12/02/2024 Do you belong to any clubs o r organizations such as taoist groups, unions, fraternal or athletic groups, or [...] any time in the past 12 m [facility], were you homeless or living in a correction (including now)? No 12/02/2024 Personal Safety Answer Date Recorded Have you ever been in or are you currently in a harmful physical or emotional relationship or is someone making you feel afraid or unsafe? Denies 12/02/2024 Sex and Gender Information Value Date Recorded Sex Assigned at Not on file Legal Sex Male 4:12 AM PUMP PRESS OPERATOR Gender Identity Not on file Sexual Orientation [...] Description 02/16/2025 12:30 PM CDT Hospital Encounter [address] [address] Sidney Russell MD [address] [place] [address] [address] OWENS [address] [place] [address] 02/16/2025 12:30 PM CDT - 02/16/2025 12:45 PM CDT Surgery [address] [address] Sidney Russell MD [address] [facility] [address] OW[address] [place] [address] ESOPHAGOGASTRODUODENOSCOPY Scheduled Procedures Name Priority Associated Diagnoses Date/Ti ma ESOPHAGOGASTRODUODENOSCOPY Nausea and vomiting, unspecified vomiting type Abnormal CT scan, esophagus 02/16/2025 12:30 PM CDT Health Maintenance Due Date Last Done Comments Hepatitis C Screening 1999 Pneumococcal vaccine <65 (1 of 1 - PPSV23) 2005 10/24/2000 Dilated Eye Exam 2009 Regular Well Visit/Exam 18-64 2017 Depression Screening 10/17/2019 10/16/2018 DTaP/Tdap/Td Vaccine (7 - Td or Tdap) 04/21/2020 04/21/2010, 09/08/2003, 08/18/2001, Additional history exists Foot Exam 02/11/2025 02/12/2024, 04/21, 02/05/2023, Additional history exists Influenza Vaccine (Season Ended) 2025 05/09/2016, 05/27/2014, 04/17/2012, Additional history exists Hemoglobin A1C 06/02/2025 11/30/2024, 08/22, 02/12/2024, Additional history exists Albumin Creatinine Ratio, Urine 10/27/2025 10/27/2024, 02/12/2024, 12/28/2017 Lipid Panel 10/27/2025 10/27/2024, 01/20, 07/10/2022, Additional history exists TSH Level 10/27/2025 10/27/2024, 01/20, 04/17/2019, Additional history exists eGFR 12/02/2025 12/02/2024, 11/19, 12/02/2024, Additional history exists Hepatitis B Screening Completed [...] performed using Nucleic Acid Amplification with the [employer] Xpert MRSA NxG Assay. This assay detects target DNA from mecA, mecC and the SCCmec insertion site of Staphylococcus aureus using Real-Time PCR and has been cleared by the FDA. Performance characteristics have been verified by the [facility]. Current Interpretive Data was last revised on 2022 Nasal 12/02/2024 4:48 PM CDT 12/02/2024 4:55 PM CDT us Juan Car MD LAB MICROBIOLOGY - GENERAL ORDE POPEYE Final Result [facility] [place] 1 [facility] Department [place] [address] * eGFR (12/02/2024 4:43 PM CDT) eGFR [...] MD LAB BLOOD ORDERABLES Final Resu lt [facility] 1 [facility] [place] [address] * (ABNORMAL) Basic metabolic panel (12/02/2024 4:43 PM CDT) Pathologist [facility] Sodium 136 135 - 145 mmol/L Potassium, [...] 2022. Calcium 8.4(L) 8.5 - 10.3 mg/dL [facility] ([place]) Blood 12/02/2024 4:43 PM CDT 12/02/2024 4:55 PM CDT Juan Car MD LAB BLOOD ORDERABLES Final Resu lt Performing Organization Address City/[facility]/ZIP Co de Phone Number [facility] ([place]) 1 [facility] [place] [address] * (ABNORMAL) POCT glucose (12/02/2024 4:29 PM CDT) Glucose, POC 309(H) 70 - 199 mg/dL Blood 12/02/2024 4:29 PM CDT 12/02/2024 4:29 PM CDT Juan Car MD LAB POCT ORDERABLES - DEVICE Fi nal Result [facility]SSA [facility] ([place]) 1 [facility] [employer] [place] [address] * POCT glucose (12/02/2024 12:13 PM CDT) Glucose, POC 156 70 - 199 mg/dL Blood 12/02/2024 12:1 3 PM CDT 12/02/2024 12:13 PM CDT Juan Car MD LAB POCT ORDERABLES - DEVICE Fi nal Result Performing Organization Address City/[facility]/ZIP Co de Phone Number [facility] ([place] 1 [facility] [place] [employer] [place] [address] * eGFR (12/02/2024 10:25 AM CDT) eGFR [...] 5 AM CDT 12/02/2024 10:32 AM CDT us Juan Car MD LAB BLOOD ORDERABLES Final Resu lt Performing Organization Address City/[facility]/ZIP Co de Phone Number [facility] ([place]) 1 [facility] [place] [address] * Basic metabolic panel (12/02/2024 10:25 AM CDT) Pathologist [facility] Sodium 143 135 - 145 mmol/L Potassium, pl 3.8 3.3 - 4.9 mmol/L [facility] ([place]) Chloride 106 97 - 110 mmol/L [facility] ([place]) CO2 23 22 - 32 mmol/L [facility] [place]) Anion gap 14 2 - 15 mmol/L [facility] ([place]) BUN 15 6 - 25 mg/dL [facility] ([place]) Creatinine 0.87 0.80 - 1.30 mg/dL [facility] ([place]) Glucose 92 70 - 199 mg/dL [facility] ([place]) Comment: Interpretive Data Fasting glucose [...] 2022. Calcium 8.5 8.5 - 10.3 mg/dL [facility] ([place]) Blood 12/02/2024 10:2 5 AM CDT 12/02/2024 10:32 AM CDT Juan Car MD LAB BLOOD ORDERABLES Final Resu lt [facility] ([place] 1 [facility] [place] [address] * POCT glucose (12/02/2024 9:11 AM CDT) Glucose, POC 70 70 - 199 mg/dL Blood 12/02/2024 9:11 AM CDT 12/02/2024 9:11 AM CDT Juan Car MD LAB POCT ORDERABLES - DEVICE Fi nal Result Performing Organization Address City/[facility]/ZIP Co de Phone Number [facility] ([place] 1 [facility] [employer] [place] [address] * (ABNORMAL) POCT glucose (12/02/2024 8:55 AM CDT) Glucose, POC 61(L) 70 - 199 mg/dL Blood 12/02/2024 8:55 AM CDT 12/02/2024 8:55 AM CDT us Juan Car MD LAB POCT ORDERABLES - DEVICE Fi nal Result [facility] [place]) 1 [facility] Department [place] [address] * XR Chest 1 Vw Portable (12/02/2024 [...] Shaquille Contreras M.D. LB: LB Report ID: [id number] Reading Location: [id number] Procedure Note Shaquille Contreras MD - 12/02/2024 [...] Electronically signed by Shaquille Contreras M.D. LB: ISRAEL Report ID: [id number] Reading Location: [id number] Marcelina Cleaning MD IMG XR PROCEDURES Final R esult * ECG 12 lead (12/02/2024 7:50 AM CDT) 12/02/2024 7:50 AM CDT Narrative [facility] - 12/02/2024 8:36 AM CDT Vent Rate: 90 bpm RR Interval: 665 msec SC Interval: 159 msec QRS Duration: 85 msec QT Interval: 360 msec QTC Interval: 407 msec P-R-T [place]: 84 - 76 - 76 degrees IMPRESSION: SINUS RHYTHM NONSPECIFIC T-WAVE ABNORMALITY BORDERLINE ECG NO CHANGE FROM PREVIOUS TRACING NOTED Electronically Signed By: Matt Mercado MD Marcelina Cleaning MD ECG ORDERABLES Final Res ult [facility] * (ABNORMAL) Urinalysis reflex to microscopic and [...] tendency for uric acid stone formation. Source: [employer] Current Interpretive Data was last revised on 2017 Protein, ur ql 3+(A) Negative [facility] ([place]) Glucose, ur ql 4+(A) Negative [facility] ([place]) Ketones, ur 3+(A) Negative [facility] ([place]) Bilirubin, ur Negative Negative [facility] ([place]) Blood, ur Negative Negative [facility] ([place]) Urobilinogen, ur 2.0(A) <2.0 mg/dL [facility] ([place]) Nitrite, ur Negative Negative [facility] ([place]) Leukocyte esterase, ur Negative Negative [facility] ([place]) UA reflex comment Reflex to microscopic UA will be performed. [facility] ([place]) Urine 12/02/2024 6:07 AM CDT 12/02/2024 6:15 AM CDT us Marcelina Cleaning MD LAB MICROBIOLOGY - GENERA L ORDERABLES Final Result Performing Organization Address [facility] Co de Phone Number [facility] ([place]) 1 [facility] [employer] [place] [address] * (ABNORMAL) Urinalysis, microscopic only (12/02/2024 6:07 AM CDT) WBC, ur 0-5 0 - 5 /HPF RBC, ur 11-20(A) 0 - 2 /HPF [facility] ([place]) Mucous, ur Present(A) [facility] ([place]) Hyaline casts, ur 1-5 0 - 10 /LPF [facility] Culture Reflex Comment Reflex conditions for urine culture (WBC >10) not met. [facility] ([place]) Urine 12/02/2024 6:07 AM CDT 12/02/2024 6:15 AM CDT us Jen Roth MD LAB URINE ORDERABLES Final Resul t Performing Organization Address [facility]/ZIP Co de Phone Number [facility] ([place]) 1 [facility] [employer] [place] [address] * (ABNORMAL) Blood gas, venous (12/02/2024 6:07 AM CDT) pH, Venous 7.44(H) 7.32 - 7.43 PCO2, Venous 34(L) 40 - 50 mmHg [facility] ([place] PO2, Venous 86 mmHg [facility] ([place]) HCO3 Venous, Calculated 23 20 - 30 mmol/L [facility] ([place]) BE, venous 0 mmol/L [facility] ([place]) Comment: Interpretive Data No Reference Range Established Current Interpretive Data was last revised on 2017. Blood 12/02/2024 6:07 AM CDT 12/02/2024 6:15 AM CDT Marcelina Cleaning MD LAB BLOOD ORDERABLES Stephie l Result [facility] ([place] 1 [facility] Department [place] [address] * Influenza A/B, RSV, and COVID-19 PCR Nasopharyngeal (12/02/2024 4:28 AM CDT) COVID-19 RNA Negative Negative Influenza A RNA Negative Negative [facility] ([place]) Influenza B RNA Negative Negative [facility] ([place]) RSV RNA Negative Negative [facility] ([place]) Comment: Interpretive data: Testing performed by [facility]. This test is performed using the [employer] Xpert Xpress CoV-2/Flu/RSV plus assay. This is a multiplex, real- time reverse transcriptase PCR assay intended for the qualitative detection of nucleic acid from SARS-CoV-2, influenza A, influenza B, and respiratory syncytial virus. This assay has been cleared by the [place] Food and Drug administration. The performance characteristics have been verified by the [facility]. Results must be considered in the clinical context, and a negative result does not rule out infection. Interpretive Data last revised 2023 Nasopharyngeal 12/02/2024 4: 28 AM CDT 12/02/2024 4:30 AM CDT Narrative [facility] ([place]) - 12/02/2024 5:15 AM CDT Is the Patient experiencing symptoms consistent with COVID?->Yes Jen Roth MD LAB MICROBIOLOGY - GENERAL ORDER DENIS Final Result [facility] ([place]) 1 [facility] Department [place] [address] * eGFR (12/02/2024 3:24 AM CDT) Pathologist [facility] eGFR >90 >=60 mL/min/1. 73 m2 Comment: [...] LAB BLOOD ORDERABLES Stephie baez Result [facility] [place] 1 [facility] Department [place] [address] * (ABNORMAL) Differential, auto (12/02/2024 3:24 AM CDT) Pathologist [facility] Neutrophil abs 9.54(H) 1.50 - 6.50 K/cumm Imm gran abs 0.03 0.00 - 0.10 K/cumm [facility] ([place]) Lymphocyte abs 2.35 0.80 - 3.30 K/cumm [facility] ([place]) Monocyte abs 0.66 0.20 - 0.80 K/cumm [facility] ([place]) Eosinophil abs 0.01 0.00 - 0.50 K/cumm [facility] ([place]) Basophil abs 0.07 0.00 - 0.10 K/cumm [facility] ([place]) Neutrophil pct 75.3 % [facility] ([place]) Comment: Interpretive [...] Lymphocyte pct 18.6 % [facility] ([place]) Comment: Interpretive Data Percent cell count reference ranges are not reported, since discordance with absolute values may lead to misinterpretation of CBC data. Current Interpretive Data was last revised on 2017. Monocyte pct 5.2 % [facility] ([place]) Comment: Interpretive Data [...] LAB BLOOD ORDERABLES Stephie baez Result AL[facility]SSA [facility]ICKI ([place]) 1 [facility] Department [place] [address] * (ABNORMAL) CBC with auto differential (12/02/2024 [...] ORDERABLES Stephie l Result Performing Organization Address City/[facility]/ZIP Co de Phone Number [facility] ([place]) 1 [facility] [place] [address] * Lipase (12/02/2024 3:24 AM CDT) Lipase 12 10 - 99 Units/L Blood Venous blood specimen / Unknown 12/02/2024 3:24 AM CDT 12/02/2024 3:35 AM CDT Marcelina Cleaning MD LAB BLOOD ORDERABLES Stephie l Result [facility] ([place]) 1 [facility] [place] [address] * (ABNORMAL) Comprehensive metabolic panel (12/02/2024 3:24 AM CDT) Sodium 141 135 - 145 mmol/L Potassium, pl 3.9 3.3 - 4.9 mmol/L [facility] ([place]) Chloride 98 97 - 110 mmol/L [facility] ([place]) CO2 22 22 - 32 mmol/L [facility] ([place]) Anion gap 21(H) 2 - 15 mmol/L [facility] ([place]) BUN 17 6 - 25 mg/dL [facility] ([place]) Creatinine 0.95 0.80 - 1.30 mg/dL [facility] ([place]) Glucose 121 70 - 199 mg/dL [facility] ([place]) [...] LAB BLOOD ORDERABLES Stephie l Result [facility] ([place] 1 [facility] [place] [address] * POCT glucose (12/02/2024 3:21 AM CDT) Glucose, POC 111 70 - 199 mg/dL Blood 12/02/2024 3:21 AM CDT 12/02/2024 3:21 AM CDT us Notinfile Unknown LAB POCT ORDERABLES - DEVICE F inal Result Performing Organization Address City/[facility]/ZIP Co de Phone Number [facility] ([place] 1 [facility] [place] [address] * POCT glucose (11/30/2024 1:58 PM CDT) Glucose, POC 177 70 - 199 mg/dL Blood 11/30/2024 1:58 PM CDT 11/30/2024 1:58 PM CDT Juan Car MD LAB POCT ORDERABLES - DEVICE Fi nal Result Performing Organization Address City/[facility]/ZIP Co de Phone Number [facility] ([place] 1 [facility] [place] [address] * Lactate (11/30/2024 12:51 PM CDT) Lactate 0.8 0.7 - 2.0 mmol/L Blood 11/30/2024 12:5 1 PM CDT 11/30/2024 12:57 PM CDT us Juan Car MD LAB BLOOD ORDERABLES Final Resu lt [facility] ([place] 1 [facility] [place] [address] * eGFR (11/30/2024 12:51 PM CDT) eGFR [...] BLOOD ORDERABLES Final Resu lt [facility] [place] [address] [place] [address] [place] [address] * Beta-hydroxybutyrate (11/30/2024 12:51 PM CDT) Beta-Hydroxybut yrate 0.5 <=0.5 mmol/L Comment:Testing performed by : [facility], [address] [place] [address], [place]., [address] Blood 11/30/2024 12:5 1 PM CDT 11/30/2024 10:37 PM CDT Juan Car MD LAB BLOOD ORDERABLES Final Resu lt [facility] ([place] 1 [facility] [employer] [place] [address] * Basic metabolic panel (11/30/2024 12:51 PM CDT) Sodium 138 135 - 145 mmol/L Potassium, pl 4.5 3.3 - 4.9 mmol/L [facility] ([place]) Chloride 103 97 - 110 mmol/L [facility] ([place]) CO2 22 22 - 32 mmol/L [facility] ([place]) Anion gap 13 2 - 15 mmol/L [facility] ([place]) BUN 19 6 - 25 mg/dL [facility] ([place]) Creatinine 0.91 0.80 - 1.30 mg/dL [facility] ([place]) Glucose 192 70 - 199 mg/dL [facility] ([place]) Comment: Interpretive Data Fasting glucose [...] 2022. Calcium 8.8 8.5 - 10.3 mg/dL [facility] ([place]) Blood 11/30/2024 12:5 1 PM CDT 11/30/2024 12:57 PM CDT us Juan Car MD LAB BLOOD ORDERABLES Final Resu lt [facility] ([place]) 1 [facility] [place] [address] * POCT glucose (11/30/2024 12:48 PM CDT) Glucose, POC 176 70 - 199 mg/dL Blood 11/30/2024 12:4 8 PM CDT 11/30/2024 12:48 PM CDT us Juan Car MD LAB POCT ORDERABLES - DEVICE Fi nal Result Performing Organization Address City/[facility]/ZIP Co de Phone Number [facility] [place] 1 [facility] [place] [address] * POCT glucose (11/30/2024 11:45 AM CDT) Glucose, POC 143 70 - 199 mg/dL Blood 11/30/2024 11:4 5 AM CDT 11/30/2024 11:45 AM CDT Juan Car MD LAB POCT ORDERABLES - DEVICE Fi nal Result Performing Organization Address [facility] Co de Phone Number [facility]SSA [facility]ER[facility] ([place] 1 [facility] [place] [address] * POCT glucose (11/30/2024 10:30 AM CDT) Glucose, POC 124 70 - 199 mg/dL Blood 11/30/2024 10:3 0 AM CDT 11/30/2024 10:30 AM CDT us Juan Car MD LAB POCT ORDERABLES - DEVICE Fi nal Result Performing Organization Address [facility] Co de Phone Number [facility]A [facility] [place] 1 [facility] Task [place] [address] * CT Abdomen Pelvis W Contrast (11/30/2024 [...] Kurt Ferro M.D. MM: MM Report ID: [id number] Reading Location: [id number] Procedure Note Kurt Ferro MD - 11/30/2024 [...] Kurt Ferro M.D. MM: MM Report ID: [id number] Reading Location: [id number] Marcelina Cleaning MD IMG CT PROCEDURES Final R esult * Influenza A/B, RSV, and COVID-19 PCR Nasopharyngeal (11/30/2024 8:32 AM CDT) COVID-19 RNA Negative Negative Influenza A RNA Negative Negative [facility] ([place]) Influenza B RNA Negative Negative [facility] ([place]) RSV RNA Negative Negative [facility] Comment: Interpretive data: Testing performed by [facility]. This test is performed using the Sportcut Xpert Xpress CoV-2/Flu/RSV plus assay. This is a multiplex, real- time reverse transcriptase PCR assay intended for the qualitative detection of nucleic acid from SARS-CoV-2, influenza A, influenza B, and respiratory syncytial virus. This assay has been cleared by the [place] Food and Drug administration. The performance characteristics have been verified by the [facility]. Results must be considered in the clinical context, and a negative result does not rule out infection. Interpretive Data last revised 2023 Nasopharyngeal 11/30/2024 8: 32 AM CDT 11/30/2024 8:38 AM CDT Narrative [facility] ([place]) - 11/30/2024 9:16 AM CDT Is the Patient experiencing symptoms consistent with COVID?->Yes Marcelina Cleaning MD LAB MICROBIOLOGY - GENERA L ORDERABLES Final Result AL[facility]SS[facility] ([place]) 1 [facility] [place] [place] [place] [address] * (ABNORMAL) Sepsis Lactate w/ Reflex (11/30/2024 8:32 AM CDT) Pathologist [facility] Sepsis Lactate 3.4(H) 0.7 - 2.0 mmol/L Blood 11/30/2024 8:32 AM CDT 11/30/2024 8:35 AM CDT Marcelina Cleaning MD LAB BLOOD ORDERABLES Stephie l Result ALYSSA [facility] ([place]) 1 [facility] Department [place] [address] * eGFR (11/30/2024 8:32 AM CDT) eGFR [...] MD LAB BLOOD ORDERABLES Stephie l Result [facility] ([place] 1 [facility] [place] [address] * (ABNORMAL) Differential, auto (11/30/2024 8:32 AM CDT) Neutrophil abs 8.26(H) 1.50 - 6.50 K/cumm Imm gran abs 0.04 0.00 - 0.10 K/cumm [facility] ([place]) Lymphocyte abs 2.35 0.80 - 3.30 K/cumm [facility] ([place]) Monocyte abs 0.86(H) 0.20 - 0.80 K/cumm [facility] ([place]) Eosinophil abs 0.19 0.00 - 0.50 K/cumm [facility] ([place]) Basophil abs 0.08 0.00 - 0.10 K/cumm [facility] ([place]) Neutrophil pct 70.2 % [facility] ([place]) Comment: Interpretive Data Percent cell count reference ranges are not reported, since discordance with absolute values may lead to misinterpretation of CBC data. Current Interpretive Data was last revised on 2017. Imm gran pct 0.3 % [facility] ([place]) Comment: Interpretive Data Percent cell count reference ranges are not reported, since discordance with absolute values may lead to misinterpretation of CBC data. Current Interpretive Data was last revised on 2017. Lymphocyte pct 19.9 % [facility] ([place]) Comment: Interpretive Data Percent cell count reference ranges are not reported, since discordance with absolute values may lead to misinterpretation of CBC data. Current Interpretive Data was last revised on 2017. Monocyte pct 7.3 % AL[facility]SSA [facility] ([place]) Comment: Interpretive Data [...] LAB BLOOD ORDERABLES Stephie l Result ALYSSA [facility]ER[facility] ([place]) 1 [facility] Department of Laboratories [place], [place] [id number] * (ABNORMAL) CBC with auto differential (11/30/2024 [...] RDW SD 40.5 35.7 - 48.1 fL [facility] NRBC abs 0.00 0.00 - 0.01 K/cumm [facility] Blood 11/30/2024 8:32 AM CDT 11/30/2024 8:35 AM CDT Marcelina Cleaning MD LAB BLOOD ORDERABLES Stephie l Result Performing Organization Address City/[facility]/ZIP Co de Phone Number ALYSSA [facility] ([place]) 1 [facility] [place] [address] * Magnesium (11/30/2024 8:32 AM CDT) Magnesium 2.2 1.4 - 2.5 mg/dL Blood 11/30/2024 8:32 AM CDT 11/30/2024 10:34 AM CDT Marcelina Cleaning MD LAB BLOOD ORDERABLES Stephie l Result AL[facility]SSA [facility] ([place]) 1 [facility] [place] [address] * (ABNORMAL) Hemoglobin A1c (11/30/2024 8:32 AM CDT) Hgb A1C 8.1(H) 4.0 - 5.6 % Estimated Average Glucose 186 mg/dL [facility]SS[facility] ([place]) Comment: The ADA recommends reporting an estimated Average Glucose (eAG) with all Hemoglobin A1c results using the equation derived from a study of 507 normal and diabetic adults. Minority populations were underrepresented and children were not included. (Diabetes Care 31:8855-5224, 2008). The eAG is not equivalent to a fasting glucose. Blood 11/30/2024 8:32 AM CDT 11/30/2024 8:57 AM CDT Marcelina Cleaning MD LAB BLOOD ORDERABLES Stephie l Result Performing Organization Address City/[facility]/ZIP Co de Phone Number AL[facility]SSA [facility] ([place]) 1 [facility] [place] [address] * Blood gas, venous (11/30/2024 8:32 AM CDT) pH, Venous 7.39 7.32 - 7.43 PCO2, Venous 42 40 - 50 mmHg [facility] PO2, Venous 49 mmHg [facility] ([place]) Comment: Interpretive Data No reference range established. Current interpretive data was last revised 2017. HCO3 Venous, Calculated 25 20 - 30 mmol/L [facility] ([place]) BE, venous 0 mmol/L [facility] Comment: Interpretive Data No Reference Range Established Current Interpretive Data was last revised on 2017. Blood 11/30/2024 8:32 AM CDT 11/30/2024 8:49 AM CDT Marcelina Cleaning MD LAB BLOOD ORDERABLES Stephie l Result ALYSSA [facility] ([place]) 1 [facility] [place] [address] * (ABNORMAL) Comprehensive metabolic panel (11/30/2024 8:32 AM CDT) Sodium 139 135 - 145 mmol/L Potassium, pl 3.8 3.3 - 4.9 mmol/L [facility] ([place]) Chloride 101 97 - 110 mmol/L [facility] ([place]) CO2 21(L) 22 - 32 mmol/L [facility] ([place]) Anion gap 17(H) 2 - 15 mmol/L [facility] ([place]) BUN 21 6 - 25 mg/dL [facility] ([place]) Creatinine 1.08 0.80 - 1.30 mg/dL [facility] ([place]) Glucose 224(H) 70 - 199 mg/dL [facility] ([place]) [...] 2022. Calcium 10.1 8.5 - 10.3 mg/dL [facility] ([place]) Bilirubin, total 0.3 0.1 - 1.2 mg/dL [facility] ([place]) Protein, pl 8.1 6.5 - [...] MD LAB BLOOD ORDERABLES Stephie baez Result [facility] ([place]) 1 [facility] Department [place] [address] * ECG 12 lead (11/30/2024 8:31 AM CDT) 11/30/2024 8:31 AM CDT Narrative [facility] - 11/30/2024 8:49 AM CDT Vent Rate: 92 bpm RR Interval: 649 msec SC Interval: 162 msec QRS Duration: 94 msec QT Interval: 349 msec QTC Interval: 399 msec P-R-T [place]: 78 - 60 - 72 degrees IMPRESSION: SINUS RHYTHM POSSIBLE LEFT ATRIAL ENLARGEMENT [-0.1mV P-WAVE IN V1/V2] BORDERLINE ECG compared to prior EKG no changes Electronically Signed By: Keny Rock MD B Marcelina Cleaning MD ECG ORDERABLES Final Res ult Performing Organization Address City/[facility]/ZIP Co de Phone Number [facility] * POCT glucose (11/30/2024 8:13 AM CDT) Glucose, POC 193 70 - 199 mg/dL Blood 11/30/2024 8:13 AM CDT 11/30/2024 8:13 AM CDT Marcelina Cleaning MD LAB POCT ORDERABLES - DEV ICE Final Result Performing Organization Address [facility] Co de Phone Number [facility] ([place]) 1 [facility] [place] [address] * Sepsis Lactate w/ Reflex (11/03/2024 1:33 PM CDT) Sepsis Lactate 1.2 0.7 - 2.0 mmol/L Blood 11/03/2024 1:33 PM CDT 11/03/2024 1:36 PM CDT Chato Daniels MD LAB BLOOD ORDERABLES Final Res ult Performing Organization Address City/[facility]/ZIP Co de Phone Number [facility] ([place]) 1 [facility] Department [place] [place] [place] [address] * Blood gas, venous (11/03/2024 1:33 PM [...] LAB BLOOD ORDERABLES Final Res ult AL[facility]SS[facility] ([place]) 1 [facility] [place] [address] * eGFR (11/03/2024 1:31 PM CDT) eGFR [...] BLOOD ORDERABLES Final Res ult ALYSSA [facility] ([place]) 1 [facility] [place] [address] * Differential, auto (11/03/2024 1:31 PM CDT) Neutrophil abs 2.63 1.50 - 6.50 K/cumm Imm gran abs 0.01 0.00 - 0.10 K/cumm [facility] ([place]) Lymphocyte abs 2.35 0.80 - 3.30 K/cumm [facility] ([place]) Monocyte abs 0.57 0.20 - 0.80 K/cumm [facility] ([place]) Eosinophil abs 0.02 0.00 - 0.50 K/cumm [facility] ([place]) Basophil abs 0.04 0.00 - 0.10 K/cumm [facility] ([place]) Neutrophil pct 46.8 % [facility] ([place]) Comment: Interpretive Data Percent cell count reference ranges are not reported, since discordance with absolute values may lead to misinterpretation of CBC data. Current Interpretive Data was last revised on 2017. Imm gran pct 0.2 % [facility] ([place]) Comment: Interpretive Data Percent cell count reference ranges are not reported, since discordance with absolute values may lead to misinterpretation of CBC data. Current Interpretive Data was last revised on 2017. Lymphocyte pct 41.8 % [facility] ([place]) Comment: Interpretive Data Percent cell count reference ranges are not reported, since discordance with absolute values may lead to misinterpretation of CBC data. Current Interpretive Data was last revised on 2017. Monocyte pct 10.1 % [facility] ([place]) Comment: Interpretive Data Percent cell count reference [...] Final Res ult [facility] ([place]) 1 [facility] [place] [address] * CBC with auto differential (11/03/2024 1:31 [...] BLOOD ORDERABLES Final Res ult ALYSSA [facility] ([place]) 1 [facility] [place] [address] * Lipase (11/03/2024 1:31 PM CDT) Lipase 11 10 - 99 Units/L Blood Venous blood specimen / Unknown 11/03/2024 1:31 PM CDT 11/03/2024 1:37 PM CDT Chato Daniels MD LAB BLOOD ORDERABLES Final Res ult Performing Organization Address [facility] de Phone Number ALYSSA [facility]ER[facility] ([place]) 1 [facility] [place] [place] [address] * Comprehensive metabolic panel (11/03/2024 1:31 PM [...] ([place]) Glucose 153 70 - 199 mg/dL [facility] ([place]) Comment: Interpretive Data Fasting glucose [...] ([place]) AST 25 10 - 50 Units/L [facility] Blood 11/03/2024 1:31 PM CDT 11/03/2024 1:37 PM CDT us Chato Daniels MD LAB BLOOD ORDERABLES Final Res ult [facility] ([place]) 1 [facility] Department [place] [address] * eGFR (10/27/2024 8:51 AM CDT) eGFR [...] of Race in Diagnosing Kidney Disease, JASN 202). The CKD-EPI equation should not be used for patients with unstable renal function and has not been validated in children and those over 70. Current interpretive data was last reviewed 2021. Blood 10/27/2024 8:5 1 AM CDT 10/27/2024 2:58 PM CDT us Nay Alford [employer]EL[employer] LAB BLOOD ORDERABLES Final Resu lt Performing Organization Address [facility] Co de Phone Number ALYSSA AHMADI [id number] [facility] [place] [address] * Thyroid Function [place] (10/27/2024 8:51 AM CDT) TSH 1.51 0.30 - 4.20 mcIUnit/mL Blood 10/27/2024 8:51 AM CDT 10/27/2024 2:50 PM CDT Nay Alford [employer] SOFTWARE DEVELOPER LAB BLOOD ORDERABLES Final Resu lt Performing Organization Address [facility] de Phone Number ALYSSA AHMADI [id number] [address] [facility] [place] [address] * (ABNORMAL) Albumin Creatinine Ratio, Urine (10/27/2024 8:51 AM CDT) Albumin Ur 96.3 mg/L Comment: Interpretive Data No reference range established. Current interpretive data was last revised 2018. Creatinine Ur 124.7 mg/dL [facility] Comment: Interpretive Data No reference range established. Current interpretive data was last revised 2018. Albumin Creatinine Ratio, Ur 77(H) 1 - 29 mg/g ALYSSA Urine 10/27/2024 8:51 AM CDT 10/27/2024 2:50 PM CDT Nay Alford [employer] DEVELOPER LAB URINE ORDERABLES Final Resu lt Performing Organization Address [facility] de Phone Number ALYSSA AHMADI [id number] [address] [facility] [place] [address] * (ABNORMAL) Lipid panel (10/27/2024 8:51 AM CDT) Pathologist [facility] Cholesterol 149 30 - 199 mg/dL Comment: [...] 2. NCEP Expert Panel. Circulation 2004;110:227 3. sAhok M et al. WENDI Cardiol. 2019November 19;5(5):540-548. doi: [...] LAB BLOOD ORDERABLES Final Resu lt ALYSSA [address] Department [place] [address] * (ABNORMAL) Comprehensive metabolic panel (10/27/2024 8:51 [...] Creatinine 1.01 0.80 - 1.30 mg/dL [facility] Glucose 232(H) 70 - 199 mg/dL [facility] Comment: Interpretive Data Fasting glucose >/= 126 [...] Calcium 9.4 8.5 - 10.3 mg/dL [facility] Bilirubin, total 0.2 0.1 - 1.2 mg/dL [facility] Protein, pl 7.1 6.5 - 8.5 g/dL [facility] Albumin 4.4 3.5 - 5.0 g/dL [facility] Alk phos 69 40 - 130 Units/L [facility] ALT 13 7 - 55 Units/L [facility] AST 25 10 - 50 Units/L [facility] Blood 10/27/2024 8:51 AM CDT 10/27/2024 2:50 PM CDT Nay Alford NP LAB BLOOD ORDERABLES Final Resu lt [facility] [address] Department [place] [address] * POCT glucose (10/27/2024 8:26 AM CDT) [...] DEVICE Fin al Result Performing Organization Address City/[facility] Co de Phone Number ALYSSA [facility] ([place]) 1 [facility] [place] [place] [address] * eGFR (10/18/2024 5:18 AM CDT) [facility] eGFR >90 >=60 mL/min/1. 73 m2 Comment: [...] ORDERABLES Final Resu lt Performing Organization Address City/[facility]/ZIP Co de Phone Number ALYSSA [facility] ([place]) 1 [facility] Department [place] [place] [place] [address] * (ABNORMAL) Differential, auto (10/18/2024 5:18 AM CDT) Pathologist [facility] Neutrophil abs 6.3 1.5 - 6.5 K/cumm [...] AM CDT 10/18/2024 5:49 AM CDT us sApen Hernandez MD LAB BLOOD ORDERABLES Final Resu lt AL[facility]SSA [facility] ([place]) 1 [facility] [place] [place] [address] * (ABNORMAL) CBC with auto differential (10/18/2024 [...] Final Resu lt ALYSSA [facility] ([place]) 1 [facility] [employer] [place] [place] [address] * Phosphorus (10/18/2024 5:18 AM CDT) Phosphorus, pl 3.0 2.3 - 4.5 mg/dL Blood 10/18/2024 5:18 AM CDT 10/18/2024 5:49 AM CDT Aspen Hernandez MD LAB BLOOD ORDERABLES Final Resu lt [facility]SSA [facility] ([place]) 1 [place] [address] * Magnesium (10/18/2024 5:18 AM CDT) Magnesium 2.0 1.4 - 2.5 mg/dL Blood 10/18/2024 5:18 AM CDT 10/18/2024 5:49 AM CDT Aspen Hernandez MD LAB BLOOD ORDERABLES Final Resu lt Performing Organization Address City/[facility] Co de Phone Number ALYSSA CACERES ([place]) 1 [facility] [place] [place] [address] * (ABNORMAL) Basic metabolic panel (10/18/2024 5:18 AM CDT) Sodium 139 135 - 145 mmol/L Potassium, pl 3.4 3.3 - 4.9 mmol/L [facility] Chloride 105 97 - 110 mmol/L [facility] ([place]) CO2 22 22 - 32 mmol/L [facility] ([place]) Anion gap 12 2 - 15 mmol/L [facility] ([place] BUN 9 6 - 25 mg/dL [facility] ([place]) Creatinine 0.88 0.80 - 1.30 mg/dL [facility] ([place]) Glucose 115 70 - 199 mg/dL [facility] ([place]) [...] 8.1(L) 8.5 - 10.3 mg/dL [facility]SS[facility] ([place]) Blood 10/18/2024 5:18 AM CDT 10/18/2024 5:49 AM CDT Aspen Hernandez MD LAB BLOOD ORDERABLES Final Resu lt ALYSSA [facility] ([place]) 1 [facility] [place] [address] * POCT glucose (10/18/2024 2:33 AM CDT) Glucose, POC 103 70 - 199 mg/dL Blood 10/18/2024 2:33 AM CDT 10/18/2024 2:33 AM CDT Aspen Hernandez MD LAB POCT ORDERABLES - DEVICE Fi nal Result Performing Organization Address [facility] Co de Phone Number ALYSSA [facility] ([place]) 1 [facility] [employer] [place] [address] * POCT glucose (10/18/2024 12:08 AM CDT) Glucose, POC 114 70 - 199 mg/dL Blood 10/18/2024 12:0 8 AM CDT 10/18/2024 12:08 AM CDT Aspen Hernandez MD LAB POCT ORDERABLES - DEVICE Fi nal Result Performing Organization Address City/[facility]/ZIP Co de Phone Number ALYSSA [facility] ([place] 1 [facility] [place] [address] * POCT glucose (10/17/2024 4:25 PM CDT) Glucose, POC 131 70 - 199 mg/dL Blood 10/17/2024 4:25 PM CDT 10/17/2024 4:25 PM CDT Aspen Hernandez MD LAB POCT ORDERABLES - DEVICE Fi nal Result ALYSSA [facility] ([place]) 1 [facility] [place] [place] [place] [address] * POCT glucose (10/17/2024 1:34 PM CDT) Glucose, POC 128 70 - 199 mg/dL Blood 10/17/2024 1:34 PM CDT 10/17/2024 1:34 PM CDT Aspen Hernandez MD LAB POCT ORDERABLES - DEVICE Fi nal Result Performing Organization Address [facility] de Phone Number ALYSSA [facility] ([place] 1 [facility] [place] [address] * eGFR (10/17/2024 9:42 AM CDT) eGFR [...] Final R esult ALYSSA [facility]ERES ([place]) 1 [facility] Department [place] [address] * (ABNORMAL) Basic metabolic panel (10/17/2024 9:42 AM CDT) Sodium 138 135 - 145 mmol/L Potassium, pl 3.6 3.3 - 4.9 mmol/L [facility] ([place]) Chloride 105 97 - 110 mmol/L [facility] ([place]) CO2 23 22 - 32 mmol/L [facility] ([place]) Anion gap 11 2 - 15 mmol/L [facility] ([place]) BUN 9 6 - 25 mg/dL [facility] ([place]) Creatinine 0.76(L) 0.80 - 1.30 mg/dL [facility] ([place]) Glucose 121 70 - 199 mg/dL [facility] ([place]) [...] 2022. Calcium 7.8(L) 8.5 - 10.3 mg/dL [facility] ([place]) Blood 10/17/2024 9:42 AM CDT 10/17/2024 9:44 AM CDT Yonas Bradley MD LAB BLOOD ORDERABLES Final R esult Performing Organization Address City/[facility]/ZIP Co de Phone Number ALYSSA [facility] ([place]) 1 [facility] Department [place] [place] [place] [address] * CT Abdomen Pelvis W Contrast (10/17/2024 [...] Bam Choudhary M.D. JA: OLMAN Report ID: [id number] Reading Location: [id number] Procedure Note Bam Choudhary MD - 10/17/2024 [...] Bam Choudhary M.D. JA: OLMAN Report ID: [id number] Reading Location: [id number] Yonas Bradley MD IMG CT PROCEDURES Final Resu lt * POCT glucose (10/17/2024 7:29 AM CDT) Pathologist [facility] Glucose, POC 177 70 - 199 mg/dL Blood 10/17/2024 7:29 AM CDT 10/17/2024 7:29 AM CDT Yonas Bradley MD LAB POCT ORDERABLES - DEVICE Final Result Performing Organization Address [facility] de Phone Number [facility] ([place]) 1 [facility] [place] [address] * (ABNORMAL) Blood gas, venous (10/17/2024 7:19 AM CDT) [facility] pH, Venous 7.50(H) 7.32 - 7.43 PCO2, [...] ORDERABLES Final R esult Performing Organization Address [facility] Co de Phone Number [facility] ([place]) 1 [facility] [employer] [place] [address] * eGFR (10/17/2024 7:15 AM CDT) [facility] eGFR >90 >=60 mL/min/1. 73 m2 Comment: [...] LAB BLOOD ORDERABLES Final R esult ALYSSA [facility] ([place]) 1 [facility] [place] [address] * (ABNORMAL) Differential, auto (10/17/2024 7:15 AM CDT) Neutrophil abs 14.6(H) 1.5 - 6.5 K/cumm Imm gran abs 0.2(H) 0.0 - 0.1 K/cumm [facility] ([place]) Lymphocyte abs 3.0 0.8 - 3.3 K/cumm [facility] ([place]) Monocyte abs 1.7(H) 0.2 - 0.8 K/cumm [...] Imm gran pct 0.8 % [facility] ([place]) Comment: Interpretive Data Percent cell count reference ranges are not reported, since discordance with absolute values may lead to misinterpretation of CBC data. Current Interpretive Data was last revised on 2017. Lymphocyte pct 15.4 % [facility] ([place]) Comment: Interpretive Data Percent cell count reference ranges are not reported, since discordance with absolute values may lead to misinterpretation of CBC data. Current Interpretive Data was last revised on 2017. Monocyte pct 8.5 % [facility]SSA [facility] ([place]) Comment: Interpretive Data Percent cell count reference [...] revised on 2017. Basophil pct 0.3 % [facility]SS[facility] ([place]) Comment: Interpretive Data Percent cell count reference ranges are not reported, since discordance with absolute values may lead to misinterpretation of CBC data. Current Interpretive Data was last revised on 2017. Blood 10/17/2024 7:15 AM CDT 10/17/2024 7:23 AM CDT us Yonas Bradley MD LAB BLOOD ORDERABLES Final R esult AL[facility]SSA [facility] ([place]) 1 [facility] [place] [address] * (ABNORMAL) Urinalysis reflex to microscopic and culture Urine (10/17/2024 7:15 AM CDT) Color, ur Yellow Yellow Clarity, ur Clear Clear ALYSSA [place] ([place]) Specific gravity, ur 1.018 1.003 - 1.030 [facility]SS[facility] ([place]) pH, urine 7.0 [facility] ([place]) Comment: Interpretive Data U rine pH is affected by diet, medications, systemic acid-base disturbances, and renal tubular function. pH may affect urinary stone formation. For example, urine pH below 6.0 may help reduce the tendency for calcium phosphate stones and pH greater than 6.0 may reduce the tendency for uric acid stone formation. Source: [facility] Current Interpretive Data was last revised [...] 7:23 AM CDT Yonas Bradley MD LAB MICROBIOLOGY - GENERAL O RDERABLES Final Result [facility] ([place]) 1 [facility] [place] [address] * (ABNORMAL) CBC with auto differential (10/17/2024 [...] MCHC 33.9 32.3 - 35.7 g/dL [facility] ([place]) RDW CV 13.7 11.1 - 14.9 % ALYSSA [facility] ([place]) RDW SD 43.2 35.7 - 48.1 fL ALYSSA [facility] ([place]) NRBC abs 0.00 0.00 - 0.01 K/cumm ALYSSA [facility] ([place]) Blood Venous blood specimen / Unknown 10/17/2024 7:15 AM CDT 10/17/2024 7:23 AM CDT us Yonas Bradley MD LAB BLOOD ORDERABLES Final R esult ALYSSA [facility]ES ([place]) 1 [facility] Department [place] [place] [address] * (ABNORMAL) Drugs of Abuse Screen, Urine without Confirmation (10/17/2024 7:15 AM CDT) Pathologist [facility] Amphetamine, ur Not Detected CutOff 500ng/mL Comment: [...] Screen Positive, presumptive (A) CutOff 50 ng/mL [facility] ([place]) Comment: Interpretive Data - Cannabinoids: [...] 2023. Urine Creatinine 135 mg/dL ALBERTO FON[facility]CA [facility] ([place] Comment: Interpretive Data Urine Creatinine: < 10 mg/dL is extremely dilute = or > 10 but < 20 mg/dL is dilute = or > 20 mg/dL is normal Current Interpretive Data was last revised on 2017. Urine 10/17/2024 7:15 AM CDT 10/17/2024 7:23 AM CDT Narrative ALYSSA [facility] ([place]) - 10/17/2024 7:48 AM CDT Drug of Abuse screening is performed by immunoassay for medical purposes only. This is not to be used for Pain Management purposes. Yonas Bradley MD LAB URINE ORDERABLES Final R esult Performing Organization Address [facility] Co de Phone Number ALYSSA [facility] ([place] 1 [facility] [place] [address] * (ABNORMAL) Urinalysis, microscopic only (10/17/2024 7:15 AM CDT) WBC, ur 0-5 0 - 5 /HPF RBC, ur 0-2 0 - 2 /HPF ALYSSA [facility] LINE) Mucous, ur Present(A) ALYSSA [facility] ([place]) Culture Reflex Comment Reflex conditions for urine culture (WBC >10) not met. [facility] ([place]) Urine 10/17/2024 7:15 AM CDT 10/17/2024 7:23 AM CDT Yonas Bradley MD LAB URINE ORDERABLES Final R esult Performing Organization Address City/[facility]/ZIP Co de Phone Number ALYSSA [facility] ([place]) [address] [facility] [place] [place] [address] * Lipase (10/17/2024 7:15 AM CDT) Lipase 10 10 - 99 Units/L Blood 10/17/2024 7:15 AM CDT 10/17/2024 7:23 AM CDT us Yonas Bradley MD LAB BLOOD ORDERABLES Final R esult [facility] ([place]) 1 [facility] [place] [address] * (ABNORMAL) Comprehensive metabolic panel (10/17/2024 7:15 [...] BLOOD ORDERABLES Final R esult [facility] ([place]) [address] [facility] [place] [address] * DIABETES FOOT EXAM (04/08/2018) Diabetic Foot Exam Normal Historical Provider HEALTH MAINTENANCE Final Result from Last 3 Months or Most Recently Relevant to Health Maintenance Insurance [facility] [place] [address] [facility] [place] [address] [place] [address] Advance Directives For more information, please contact: [phone] Documents on File Type Date 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
--- NOTE | 2024-12-22 10:40 | ED_ITS ---
HPI - Abdominal Pain General Chief Complaint: Abdominal Pain Stated Complaint: Abdominal Pain/Vomiting Source: patient Mode of arrival: ambulatory Limitations: no limitations History of Present Illness HPI narrative: Patient presents requesting a note to excuse him from work today. He has a history of nausea and vomiting and has an appt with GI next week to further investigate this. He states he was at work today and felt hot, developed nausea and vomiting thereafter. He has epigastric discomfort while vomiting but denies abdominal pain otherwise. He also reports chills, but denies fever. Denies ETOH, marijuana and illict drug use. He states when he has experienced these episodes in the past, taking zofran and laying down alleviate his symptoms. He declines a need for antiemetics as he has zofran at home, which seems to help. No change in bowel pattern. Last bowel movement this morning, solid in consistency. He has DM1 and has an insulin pump. BS per Kelly while here 161. Related Data Home Medications ?Medication ?Instructions ?Recorded ?Confirmed ?Last Taken ?Type atorvastatin 20 mg tablet mg 11/03/24 Unknown History blood-glucose sensor (Dexcom G7 11/03/24 11/03/24 Unknown History Sensor device) blood-glucose transmitter (Dexcom 11/03/24 11/03/24 Unknown History G6 Transmitter device) insulin lispro 100 unit/mL 11/03/24 Unknown History subcutaneous solution (Humalog U-100 Insulin) metoclopramide HCl 10 mg tablet mg 11/03/24 Unknown History pantoprazole 40 mg tablet,delayed mg PO 11/03/24 Unknown History release erythromycin ethylsuccinate 400 12/22/24 Unknown History mg/5 mL oral powder for suspension Allergies Allergy/AdvReac Type Severity Reaction Status Date / Time haloperidol (From Haldol) Allergy Unknown Unknown Verified 12/22/24 10:24 Review of Systems Review of Systems: CONSTITUTIONAL: Reports chills Denies fever or sweats. EYES: Denies visual changes, redness, or discharge. ENT: Denies rhinorrhea, congestion, sore throat, or otalgia. CARDIOVASCULAR: Denies chest pain, palpitations, or edema. RESPIRATORY: Denies cough or dyspnea. GASTROINTESTINAL: Reports nausea and vomiting. Reports epigastric discomfort only when vomiting. GENITOURINARY: Denies dysuria or hematuria. SKIN: Denies rash or itching. MUSCULOSKELETAL: Denies back pain, joint pain, or myalgia. NEUROLOGIC: Denies headache, numbness, dizziness, or weakness. PSYCHIATRIC: Denies anxiety or depression. [facility] Past Medical History Medical History Gastroparesis Elevated cholesterol Type 1 diabetes Surgical History Surgical History History of cholecystectomy Family History Family History (Updated 12/22/24 @ 10:44 by BEAU Villeda, ) Mother Family history non-contributory Social History Social History Smoking status: Never smoker Alcohol intake: never Substance use: current Substance use type: marijuana Living arrangements: with family Gender identity (if verbalized by the patient): Male Exam Narrative: GENERAL: Actively vomiting HEAD: Normocephalic, atraumatic. EYES: PERRLA and EOMI. ENT: Nares clear, no rhinorrhea or epistaxis. Mucous membranes moist. Oropharynx without tonsillar hypertrophy exudate or other lesions. Bilateral TMs pearly coleman nonbulging NECK: Supple. No adenopathy or masses. No carotid bruits or JVD CHEST: Clear to auscultation. No respiratory distress. No wheezes rales or rhonchi HEART: Regular rate and rhythm. No murmur heard. Normal peripheral pulses. ABDOMEN: Soft, nontender, nondistended, normal active bowel sounds. EXTREMITIES: Normal range of motion. No edema. SKIN: Warm, dry, no rash. NEURO: No focal deficits. Alert and oriented x3. PSYCH: Normal mood and affect. Course Course Emergency Course: This is a 24 year old male who presented requesting a note to excuse him from work. I did offer to send him to the ER, which he declined. He assures me that he has these episodes fairly regularly and rest and zofran alleviate his symptoms. He has zofran at home. He was advised to go to the ER for worsening symptoms and keep appt with GI as previously planned. Pt in agreement with plan of care. Level of Care: Express Care Visit Vital Signs Vital signs: Vital Signs Temperature 36.8 C 12/22/24 10:23 Pulse Rate 115 H 12/22/24 10:23 Respiratory Rate 20 12/22/24 10:23 Blood Pressure 176/104 H 12/22/24 10:23 Pulse Oximetry 12/22/24 10:23 Oxygen Delivery Room Air 12/22/24 10:23 Temperature 36.8 C 12/22/24 10:23 Pulse Rate 115 H 12/22/24 10:23 Respiratory Rate 20 12/22/24 10:23 Blood Pressure 176/104 H 12/22/24 10:23 Pulse Oximetry 100 12/22/24 10:23 Oxygen Delivery Room Air 12/22/24 10:23 Discharge Plan Discharge Clinical Impression: Nausea & vomiting Patient Disposition: Home Condition: Stable Instructions: Antibiotic Form, Acute Nausea and Vomiting (DC) Additional Instructions: IF YOU ARE UNABLE TO KEEP FOOD OR FLUIDS DOWN, PLEASE GO TO THE ER Patient Language: Macanese Prescriptions: No Action ondansetron 4 mg tablet,disintegrating 4 mg PO Q6H PRN (Reason: nausea and vomiting) Qty: 14 0RF atorvastatin 20 mg tablet pantoprazole 40 mg tablet,delayed release (DR/EC) PO insulin lispro [Humalog U-100 Insulin] 100 unit/mL solution Patient Comments: insulin pump metoclopramide HCl 10 mg tablet (DME) Dexcom G7 Sensor Device MISCELLANEOUS (DME) Dexcom G6 Transmitter Device MISCELLANEOUS erythromycin ethylsuccinate 400 mg/5 mL suspension for reconstitution Follow-up/Referrals: Les,REEMA Arizmendi [Primary Care Provider] - Stand Alone Forms: Work/School Release IP Time of Disposition: 10:30
== END 2024-12-22 10:35 | disposition home or self-care (01) ==
PROVIDERS: Emergency Provider Nurse Practitioner; PCP Physician Assistant
DX: R11.2 Nausea with vomiting, unspecified (principal); E10.9 Type 1 diabetes mellitus without complications; Z79.4 Long term (current) use of insulin
CPT/HCPCS: 99211; G0463

== ENCOUNTER 2025-01-13 08:00 | Emergency (ER) | payer OTHER, SELFPAY ==
[2025-01-13 08:07] VITALS: BP 113/80; PULSE 83; RESP 14; TEMP 36.3; O2SAT 100
--- NOTE | 2025-01-13 08:08 | ED_ITS ---
HPI - General Adult General Chief complaint: Abdominal Pain Stated complaint: Gastro flare up Time Seen by Provider: 01/13/25 08:08 Source: patient Mode of arrival: ambulatory Limitations: no limitations History of Present Illness HPI narrative: 24-year-old male with history of gastro paresis presents today with complaint of nausea and vomiting upon awakening today. Took a Reglan prior to arrival. States helping somewhat . Has been taking Reglan for the past 3-4 years for his gastroparesis. Feels that the effectiveness is wearing off. Has appointment with a new GI specialist in January. reports some abdominal discomfort. Symptoms are no worse than his usual. All systems reviewed and negative except as noted above. Related Data Home Medications ?Medication ?Instructions ?Recorded ?Confirmed ?Last Taken ?Type atorvastatin 20 mg tablet mg 11/03/24 Unknown History blood-glucose sensor (Dexcom G7 11/03/24 11/03/24 Unknown History Sensor device) blood-glucose transmitter (Dexcom 11/03/24 11/03/24 Unknown History G6 Transmitter device) insulin lispro 100 unit/mL 11/03/24 Unknown History subcutaneous solution (Humalog U-100 Insulin) metoclopramide HCl 10 mg tablet mg 11/03/24 Unknown History pantoprazole 40 mg tablet,delayed mg PO 11/03/24 Unknown History release erythromycin ethylsuccinate 400 12/22/24 Unknown History mg/5 mL oral powder for suspension Allergies Allergy/AdvReac Type Severity Reaction Status Date / Time haloperidol (From Haldol) AdvReac Severe Other Verified 01/13/25 08:16 Review of Systems Review of Systems: CONSTITUTIONAL: Denies fever, chills, or sweats. EYES: Denies visual changes, redness, or discharge. ENT: Denies rhinorrhea, congestion, sore throat, or otalgia. CARDIOVASCULAR: Denies chest pain, palpitations, or edema. RESPIRATORY: Denies cough or dyspnea. GASTROINTESTINAL: Reports abdominal cramping, nausea and vomiting. No diarrhea. GENITOURINARY: Denies dysuria or hematuria. SKIN: Denies rash or itching. MUSCULOSKELETAL: Denies back pain, joint pain, or myalgia. NEUROLOGIC: Denies headache, numbness, or weakness. PSYCHIATRIC: Denies anxiety or depression. All other systems reviewed are negative, except as documented in HPI. [facility] Past Medical History Medical History Gastroparesis Elevated cholesterol Type 1 diabetes Surgical History Surgical History History of cholecystectomy Family History Family History (Updated 12/22/24 @ 10:44 by Andres Peralta [facility]) Mother Family history non-contributory Social History Social History Smoking status: Never smoker Alcohol intake: never Substance use: current Substance use type: marijuana Living arrangements: with family Gender identity (if verbalized by the patient): Male Comments At time of signature, agree with nursing past medical, surgical, social and family history. There is no relevant family history pertinent to the presenting complaint. Exam Narrative: GENERAL: This is a well-nourished, well-developed patient, ill-appearing but no acute distress HEAD: normocephalic, atraumatic. EYES: PERRL. Sclera clear/white. Vision is grossly intact. EARS: External ears normal NOSE: External nose normal NECK: Neck supple, non-tender without lymphadenopathy, masses or thyromegaly. CARDIOVASCULAR: Regular rate and rhythm without murmurs, gallops, or rubs. RESPIRATORY: Clear to auscultation. Breath sounds equal bilaterally. No wheezes, rales, or rhonchi. GASTROINTESTINAL: Abdomen soft, non-tender, nondistended. Bowel sounds are Hyperactive. No hepato-splenomegaly, or palpable masses. No guarding. SKIN: warm, Dry, intact with no suspicious lesions or rash, good texture and turgor. NEURO: awake, alert, and oriented to person, place and time. There were no obvious focal neurologic abnormalities. EXTREMITIES: No joint tenderness, effusion, or edema noted. Course Course Level of Care: Express Care Visit Vital Signs Vital signs: Vital Signs Temperature 36.3 C L 01/13/25 08:07 Pulse Rate 83 01/13/25 08:07 Respiratory Rate 14 01/13/25 08:07 Blood Pressure 113/80 01/13/25 08:07 Pulse Oximetry 100 01/13/25 08:07 Oxygen Delivery Room Air 01/13/25 08:07 Temperature 36.3 C L 01/13/25 08:07 Pulse Rate 83 01/13/25 08:07 Respiratory Rate 14 01/13/25 08:07 Blood Pressure 113/80 01/13/25 08:07 Pulse Oximetry 100 01/13/25 08:07 Oxygen Delivery Room Air 01/13/25 08:07 reviewed Medical Decision Making MDM Narrative Medical decision making narrative: history of gastroparesis. States that symptoms today are no worse than usual. Here for a work excuse. Has appointment with new GI specialist in January. Does feel that Reglan has lost its effectiveness. Will prescribe Zofran as he is taken this in the past and is helped. No abdominal tenderness on exam. Patient is alert, nontoxic. Vital Signs Vital Signs: Vital Signs Temperature 36.3 C L 01/13/25 08:07 Pulse Rate 83 01/13/25 08:07 Respiratory Rate 14 01/13/25 08:07 Blood Pressure 113/80 01/13/25 08:07 Pulse Oximetry 100 01/13/25 08:07 Oxygen Delivery Room Air 01/13/25 08:07 Temperature 36.3 C L 01/13/25 08:07 Pulse Rate 83 01/13/25 08:07 Respiratory Rate 14 01/13/25 08:07 Blood Pressure 113/80 01/13/25 08:07 Pulse Oximetry 100 01/13/25 08:07 Oxygen Delivery Room Air 01/13/25 08:07 Discharge Plan Discharge Clinical Impression: Nausea & vomiting, Gastroparesis Patient Disposition: Home Condition: Stable Instructions: Acute Nausea and Vomiting (ED) Additional Instructions: follow-up with GI specialist at scheduled appointment. For any concerns for dehydration go to the ER. Patient Language: Azeri Prescriptions: New dicyclomine 20 mg tablet 20 mg PO Q6-8H PRN (Reason: abdominal cramping) Qty: 20 0RF ondansetron 4 mg tablet,disintegrating 4 mg PO Q8H PRN (Reason: nausea and vomiting) Qty: 20 0RF No Action ondansetron 4 mg tablet,disintegrating 4 mg PO Q6H PRN (Reason: nausea and vomiting) Qty: 14 0RF atorvastatin 20 mg tablet pantoprazole 40 mg tablet,delayed release (DR/EC) PO insulin lispro [Humalog U-100 Insulin] 100 unit/mL solution Patient Comments: insulin pump metoclopramide HCl 10 mg tablet (DME) Dexcom G7 Sensor Device MISCELLANEOUS (DME) Dexcom G6 Transmitter Device MISCELLANEOUS erythromycin ethylsuccinate 400 mg/5 mL suspension for reconstitution Follow-up/Referrals: Les,REEMA Arizmendi [Primary Care Provider] - Stand Alone Forms: Work/School Release IP Time of Disposition: 08:19
== END 2025-01-13 08:20 | disposition home or self-care (01) ==
PROVIDERS: Emergency Provider Nurse Practitioner Family; PCP Physician Assistant
DX: K31.84 Gastroparesis (principal); E10.9 Type 1 diabetes mellitus without complications
CPT/HCPCS: 99213; G0463

== ENCOUNTER 2025-01-18 10:26 | Emergency (ER) | payer OTHER, SELFPAY ==
[2025-01-18 10:30] VITALS: BP 129/75; PULSE 92; RESP 20; TEMP 36.8; O2SAT 100
[2025-01-18] MEDS: GLUCOSE ORAL GEL 15 GM OF GLUCSE IN 37.5 GM TUBE PO (10:52)
--- NOTE | 2025-01-18 10:57 | PC.NURSE ---
1050 Pt mother notifed staff that pt dexacom reading 42. Mirna senior net c developer notified and oj given and oral glucose. Pt diaphoretic.
--- NOTE | 2025-01-18 11:07 | PC.NURSE ---
1107 second oj given to patient blood sugar on dexacom 57. Pt starting to feel better remains diaphoretic.
--- NOTE | 2025-01-18 11:13 | PC.NURSE ---
1113 Pt dexacom reading 70 at this time. Pt alert and oriented resting at this time.
--- NOTE | 2025-01-18 11:21 | PC.NURSE ---
1121 Pt dexacom reading 91. Pt resting but alert.
--- NOTE | 2025-01-18 11:22 | ED.NAVMDI ---
HPI - Nausea/Vomiting/Diarrhea General Chief complaint: Abdominal Pain Stated complaint: Abdominal Pain Time Seen by Provider: 01/18/25 11:20 Source: patient and RN notes reviewed Mode of arrival: ambulatory Limitations: no limitations History of Present Illness HPI Narrative: 24-year-old male with history of type 1 diabetes, gastroparesis presents with concerns for leaving work after vomiting. He reports that he had had some low blood sugar readings overnight, he was eating a snack today, milk and a granola bar when he had an episode of abdominal cramping and vomiting. Patient's Dexcom reading was 78 in triage, dropped down to 42 he was bleeding in the exam room. Patient was given orange juice, oral glucagon. Sugar went into the 50s, patient was given another serving of orange juice. During examination patient is Dexcom is reading 131. Patient denies any current vomiting, abdominal pain. Patient's mother gave him a dicyclomine in the exam room. Patient has a prescription for Zofran if needed. Patient was able to move up his appointment with his GI doctor to this week. Patient is requesting a work note for leaving work today. He denies fever, body aches, chills. Reports sweats. He denies current abdominal pain, vomiting, diarrhea. MD elicited complaint: nausea and vomiting Related Data Home Medications ?Medication ?Instructions ?Recorded ?Confirmed ?Last Taken ?Type atorvastatin 20 mg tablet mg 11/03/24 Unknown History blood-glucose sensor (Dexcom G7 11/03/24 11/03/24 Unknown History Sensor device) blood-glucose transmitter (Dexcom 11/03/24 11/03/24 Unknown History G6 Transmitter device) insulin lispro 100 unit/mL 11/03/24 Unknown History subcutaneous solution (Humalog U-100 Insulin) metoclopramide HCl 10 mg tablet mg 11/03/24 Unknown History pantoprazole 40 mg tablet,delayed mg PO 11/03/24 Unknown History release erythromycin ethylsuccinate 400 12/22/24 Unknown History mg/5 mL oral powder for suspension Allergies Allergy/AdvReac Type Severity Reaction Status Date / Time haloperidol (From Haldol) AdvReac Severe Other Verified 01/18/25 10:37 Review of Systems Review of Systems: CONSTITUTIONAL: Denies malaise, chills, or fever. Reports sweats ENT: Denies rhinorrhea, congestion, sinus pain, otalgia or sore throat. CARDIOVASCULAR: Denies chest pain, palpitations, or edema. RESPIRATORY: Denies cough or dyspnea. GASTROINTESTINAL: Denies current abdominal pain, nausea, vomiting, diarrhea, bloody, or mucous stools.. Reports an episode of vomiting and abdominal cramping earlier today GENITOURINARY: Denies dysuria or hematuria. MUSCULOSKELETAL: Denies myalgia. Reports an episode of back pain when he was vomiting. NEUROLOGIC: Denies headache. All systems reviewed & are unremarkable except as noted in HPI and below PMFSH Past Medical History Medical History Gastroparesis Elevated cholesterol Type 1 diabetes Surgical History Surgical History History of cholecystectomy Family History Family History (Updated 12/22/24 @ 10:44 by Andres Peralta [facility], ) Mother Family history non-contributory Social History Social History Smoking status: Never smoker Alcohol intake: never Substance use: current Substance use type: marijuana Living arrangements: with family Gender identity (if verbalized by the patient): Male Comments At time of signature, agree with nursing past medical, surgical, social and family history. There is no relevant family history pertinent to the presenting complaint Exam Narrative: GENERAL: Nontoxic-appearing, well-nourished, and in no acute distress. HEAD: Normocephalic, atraumatic. EYES: PERRLA, conjunctivae clear, and EOMI. ENT: Nares clear. Mucous membranes moist. NECK: Supple. No lymphadenopathy CHEST: Speaks in full sentences. No respiratory distress. HEART: Regular rate and rhythm. SKIN: Warm, no rash. Diaphoretic NEURO: Alert and oriented x3. PSYCH: Normal mood and affect Course Course Emergency Course: Patient is aware of diagnosis, understands and agrees to treatment plan. Anticipatory guidance given. Patient agrees to follow-up as directed and is aware of reasons to seek care at the emergency department. Portions of this record may have been created with voice recognition software Level of Care: Express Care Visit Vital Signs Vital signs: Vital Signs Temperature 98.2 F 01/18/25 10:30 Pulse Rate 92 01/18/25 10:30 Respiratory Rate 20 01/18/25 10:30 Blood Pressure 129/75 01/18/25 10:30 Pulse Oximetry 100 01/18/25 10:30 Oxygen Delivery Room Air 01/18/25 10:30 Temperature 98.2 F 01/18/25 10:30 Pulse Rate 92 01/18/25 10:30 Respiratory Rate 20 01/18/25 10:30 Blood Pressure 129/75 01/18/25 10:30 Pulse Oximetry 100 01/18/25 10:30 Oxygen Delivery Room Air 01/18/25 10:30 Reviewed. MDM - Nausea/Vomiting/Diarrhea MDM Narrative Medical decision making narrative: I evaluated this patient in the express care. History is obtained from patient who is an independent historian and physical exam was performed.? Available medical records were reviewed. ? Exam findings show no acute concerns or changes; patient is non-toxic appearing and is in no distress. ? Differential diagnosis and treatment plan were discussed with the patient. Patient agrees with discussion and after shared medical decision making agrees with plan of care. All questions were answered to the patient's satisfaction. Patient is appropriate for outpatient treatment and follow-up. Critical Care Time Critical Care Time Critical Care Time: No Discharge Plan Discharge Clinical Impression: Vomiting Patient Disposition: Home Condition: Stable Instructions: Acute Nausea and Vomiting (ED) Additional Instructions: 1) Please follow-up with your primary care doctor in the next 1-2 days. 2) If you have any worsening of symptoms or any other urgent concerns please go to the ER. 3) Please continue taking your home medications as usual. 4) Please read and follow information included in discharge instructions. Patient Language: Maltese Prescriptions: No Action ondansetron 4 mg tablet,disintegrating 4 mg PO Q6H PRN (Reason: nausea and vomiting) Qty: 14 0RF dicyclomine 20 mg tablet 20 mg PO Q6-8H PRN (Reason: abdominal cramping) Qty: 20 0RF ondansetron 4 mg tablet,disintegrating 4 mg PO Q8H PRN (Reason: nausea and vomiting) Qty: 20 0RF atorvastatin 20 mg tablet pantoprazole 40 mg tablet,delayed release (DR/EC) PO insulin lispro [Humalog U-100 Insulin] 100 unit/mL solution Patient Comments: insulin pump metoclopramide HCl 10 mg tablet (DME) Dexcom G7 Sensor Device MISCELLANEOUS (DME) Dexcom G6 Transmitter Device MISCELLANEOUS erythromycin ethylsuccinate 400 mg/5 mL suspension for reconstitution Follow-up/Referrals: Les,REEMA Arizmendi [Primary Care Provider] - Stand Alone Forms: Work/School Release IP Time of Disposition: 11:30
--- NOTE | 2025-01-18 11:29 | PC.NURSE ---
1129 PT dexacom reading 131 at this time. Pt alert and oriented.
== END 2025-01-18 11:36 | disposition home or self-care (01) ==
PROVIDERS: Emergency Provider Nurse Practitioner; PCP Physician Assistant
DX: R11.10 Vomiting, unspecified (principal); E10.9 Type 1 diabetes mellitus without complications
CPT/HCPCS: 99212; A9270; G0463; J1610

== ENCOUNTER 2025-02-01 10:53 | Emergency (ER) | payer OTHER, SELFPAY ==
--- OUTSIDE RECORDS SUMMARY | 2025-02-01 10:59 | XMS_ITS | Encounter Summary ---
Author Organization [facility] Address [address] [place] [address] Phone Care Team Providers Care Boning Room Worker Name Role Phone Cristobal Aguilera MD Primary Care Provider Con Beltrán MD Unavailable [phone] Azra Yarbrough RN Unavailable [phone] Cristobal Aguilera MD Primary Care Provider Prashanth Saldana Primary Care Provider [phone] Sidney Russell MD Unavailable Reason for Visit * Reason Onset Date Comments left msg. for family to c/b and sched. 3mo appt. 03/12/2018 Encounter Details Date Type Department Care Team (Late st Contact Info) Description 03/12/2018 Telephone [facility] Pediatric Endocrinology [facility] 2nd [place] [address] [place] [address] Ngoc Lee left msg. for family to c/b and sched. 3mo appt. Social History Tobacco Use Types Packs/Day Years Used Date Smoking Tobacco: Never Alcohol Use Standard Drinks/Week Comments No 0 (1 standard drink = 0.6 oz pur e alcohol) Sex and Gender Information Value Date Recorded Sex Assigned at Not on file Legal Sex Male 4:12 AM COORDINATOR [employer]GR[employer] MARKETING Gender Identity Not on file Sexual Orientation [...] COVID: Suspected 05/26/2020 05/26/2020 05/27/2020 10:23 AM COORDINATOR [employer] Respiratory Infection (ALLIE), contact + droplet Comment:IP Review - There is a significant event note with an alternative diagnosis and at least one negative COVID-19 test documented in Epic. Patient meets criteria for COVID-19 isolation discontinuation. ` Automatically added due to negative COVID-19 result. 05/27/2020 05/27/2020 05/27/2020 12:46 PM COORDINATOR [employer] COVID: Suspected 07/04/2020 07/04/2020 07/04/2020 6:02 PM COORDINATOR [employer] MARKETING Respiratory Infection (ALLIE), contact + droplet Comment:Patient classified as Low Risk for COVID-19 and has one negative COVID-19 test. Patient meets criteria for COVID-19 isolation discontinuation 07/04/2020 [place] Automatically added due to negative COVID-19 result. 07/04/2020 07/04/2020 07/04/2020 8:[address] COVID: Suspected 08/03/2020 08/03/2020 08/03/2020 10:50 PM COORDINATOR [employer] MARKETING Respiratory Infection (ALLIE), contact + droplet Comment:08/04/2020 [...] documented as of this encounter Care Teams Boning Room Worker Relationship Specialty Start Date End Date Cristobal Aguilera MD PCP - General 10/19/16 11/15/19 Cristobal Aguilera MD PCP - General 11/16/19 05/24/20 Prashanth Saldana PA [address] [place] [address] PCP - General Family Practice 05/25/20 Con Beltrán MD Referring Physician Pediatric Endocrinology 12/20/18 Azra Yarbrough RN [id number] [address] [facility] [employer] 11/16/19 12/15/19 Sidney Russell MD [address] [place] [address] Consulting Physician Gastroenterology 04/19/21 documented as of this encounter
--- OUTSIDE RECORDS SUMMARY | 2025-02-01 10:59 | XMS_ITS | Clinical Summary ---
Author Organization [facility] Address [address] [place] [address] Phone Care Team Providers Care Sound Recording Technician Name Role Phone Prashanth Saldana Primary Care Provider [phone] Allergies Active Allergy Reactions Criticality Noted Date Comments Haloperidol Anxiety,Shortness of Breath,Nausea Low 02/12/2024 Medications Insulin Syringe-Needle U-100 (INSULIN SYRINGE .5CC/31GX5/16) [...] 1 Active Insulin Pen Needle (TechLite Pen [place]) 31G X 8 MM Misc USE TO INJECT INSULIN 4 TIMES A DAY 400 Pen Needle 3 1 Active metoclopramide (REGLAN) 10 MG Tablet Take 1 Tablet by mouth 4 times daily as needed for Nausea - 2nd line. 10 Tablet 1 Active Continuous Blood Gluc Transmit (Dexcom G6 Transmitter) MiscIndications:T ype 1 diabetes mellitus without complication 1 EACH [...] 10 Tablet 2 Active Continuous Blood Gluc Mold Insert Changer (Dexcom G6 Mold Insert Changer) Device USE TO CHECK GLUCOSE 4X DAILY. 1 Each 2 Active Continuous Blood Gluc Sensor (Dexcom G6 Sensor) MiscIndications:T ype 1 diabetes mellitus without complication CHANGE SENSOR [...] for Nausea - 1st line. 20 Tablet 5 Active Active Problems Problem Noted [...] Encounters Date Type Department Care Team Description 12/24/2024 9:11 AM CDT - 12/24/2024 10:29 AM CDT Emergency [facility] Emergency [address] [place] [address] Forest Guerrero MD Dehydration Discharge Disposition: Discharged to home or Selfcare 12/24/2024 Travel 12/16/2024 10:35 AM CDT - 12/16/2024 12:42 PM CDT Emergency [facility] Emergency [address] [place] [address] Marquis Soni, Gastroparesis Discharge Disposition: Discharged to home or Selfcare 12/16/2024 Travel from Last 3 Months Immunizations Immunization Administration Dates Next Due [id number] kiersten MCV4, Unspecif ied Formulation 04/17/2012 DTAP [...] drink = 0.6 oz pur e alcohol) [facility] [employer] Answer Date Recorded In the past 12 months has e [employer], gas, oil, or water [employer] threatened to shut off services in your home? No 10/16/2024 Social Connection and Isolation Panel Answer Date Recorded In a typical week, how many times do you talk on the phone with family, friends, or neighbors? More than three times a week 10/16/2024 How often do you get togethe r with friends or relatives? More than three times a week 10/16/2024 How often do you attend chur ch or muslim services? Never 10/16/2024 Do you belong to any clubs o r organizations such as orthodoxy groups, unions, fraternal or athletic groups, or [...] medical care, and heating? Somewhat hard 10/16/2024 [facility] of Occupat ional Health - Occupational Stress [...] any time in the past 12 m onths, were you homeless or living in a jail (including now)? No 10/16/2024 Sexually Active Control Partners Comments Yes Female Sex and Gender Information Value Date Recorded Sex Assigned at Not on file Legal Sex Male 8:12 PM CDT Gender Identity Not on file Sexual Orientation Not on file Last Filed Vital Signs Vital Sign Reading Time Taken Comments Blood Pressure 167/116 12/24/2024 9:17 AM CDT Pulse 112 12/24/2024 9:17 AM CDT Temperature 37.2 C (98.9 F) 12/24/2024 9:17 AM CDT Respiratory Rate 24 12/24/2024 9:17 AM CDT Oxygen Saturation 98% 12/24/2024 9:17 AM CDT Inhaled Oxygen Concentration - - Weight 72.6 kg (160 lb) 12/24/2024 9:17 AM CDT Height 170.2 cm (5' 7) 12/24/2024 9:17 AM CDT Body Mass Index 25.06 12/24/2024 9:17 AM CDT Plan of Treatment Health Maintenance [...] SARS-COV-2 Immunization ( season) 2024 Influenza Immunization (#1) 03/22/202504/21, 05/27/2014, 04/17/2012, Additional history exists Diabetes: Hemoglobin A1c 06/02/2025 025, 10/16/2024, 09/03/2024, Additional history exists Diabetes: Nephropathy Screening 12/24/2025 12/24/2024, 12/16/2024, 10/16/2024, Additional history exists Respiratory Syncytial Virus (RSV) Immunization (Adult) (1 - 1-dose 75+ series) 2074 Hepatitis B Immunization Completed 000, 03/13/2000, 1999, Additional history exists Human Papillomavirus (HPV) Immunization Completed 05/09/2016, 03/23/2015, 05/27/2014 Meningococcal Immunization (ACWY) Completed 05/09/2016, 04/17/2012 Rotavirus Immunization Aged Out No lo nger eligible based on patient's age to complete this topic Procedures Procedure Name Priority Date/Time Associated Diagnosis Comments URINALYSIS REFLEX IF INDICATED BY ABNORMAL RESULTS STAT 12/24/2024 9:42 AM CDT CBC WITH AUTO DIFFERENTIAL STAT 12/24/2024 9:39 AM CDT MAGNESIUM (MG) STAT 12/24/2024 9:39 AM CDT LIPASE STAT 12/24/2024 9:39 AM CDT CMP (COMPREHENSIVE METABOLIC PANEL) STAT 12/24/2024 9:39 AM CDT COMPLETE BLOOD COUNT (CBC) WITH DIFF STAT 12/24/2024 9:39 AM CDT GOLD TOP TUBE STAT 12/24/2024 9:20 AM CDT BLUE TOP TUBE STAT 12/24/2024 9:20 AM CDT EXTRA TUBES STAT 12/24/2024 9:20 AM CDT POCT GLUCOSE STAT 12/24/2024 9:17 AM CDT TROPONIN I, HIGH SENSITIVITY (HSTRP) [...] CDT EKG SCAN 12/16/2024 12:00 AM CDT HEMOGLOBIN A1C W/ ESTIMATED GLUCOSE STAT 10/16/2024 2:39 AM CDT LIPID PANEL Routine 06/24/2019 5:44 AM WATER/WASTEWATER PROJECT ENGINEER from Last 3 Months or Most Recently Relevant to Health Maintenance Results * (ABNORMAL) Urinalysis w/ Reflex (12/24/2024 9:42 AM CDT) [facility] SPECIFIC GRAVITY 1.025 1.003 - 1.030 12/24/2024 10:09 AM CDT [facility] URINE PH 6.0 5.0 - 9.0 12/24/2024 10:09 AM CDT [facility] WBC ESTERASE 25 /ul(A) Negative 12/24/2024 10:09 AM CDT [facility] NITRITE Negative Negative 12/24/2024 10:09 AM CDT [facility] PROTEIN, RANDOM URINE 500 mg/dL(A) Negative 12/24/2024 10:09 AM CDT [facility] URINE GLUCOSE, QUAL 100 mg/dL(A) Negative 12/24/2024 10:09 AM CDT [facility] URINE KETONES 15 mg/dL(A) Negative 12/24/2024 10:09 AM CDT [facility] UROBILINOGEN 1 mg/dL(A) Normal mg/dL 12/24/2024 10:09 AM CDT [facility] URINE BLOOD 10 /uL(A) Negative oumar/ul 12/24/2024 10:09 AM CDT [facility] URINALYSIS COLOR Diane 12/25/19 25 10:09 AM CDT [facility] URINALYSIS CLARITY Slightly Cloudy 12/24/2024 10:09 AM CDT [facility] WBC (Urine) 0-5 Negative, 0-5 /hpf 12/24/2024 10:09 AM CDT [facility] URINE RBC'S 6-10(A) Negative, 0-2 /hpf 12/24/2024 10:09 AM CDT [facility] EPITHELIAL CELLS Negative /lpf 12/25/19 25 10:09 AM CDT [facility] BACTERIA, URINE Few(A) Negative /hpf 12/24/2024 10:09 AM CDT [facility] URINE MUCOUS Many 12/24/2024 10:09 AM CDT [facility] CASTS 5-10/LPF Hyaline Casts(A) Negative, 0-2/lpf, 3-5/lpf, 6-10/lpf, 11-20/lpf, >20/lpf /lpf 12/24/2024 10:09 AM CDT [facility] Urine URINE SPECIMEN / Unknown Non-Phlebotomy Collection / Unknown 12/24/2024 9:42 AM CDT 12/24/2024 9:49 AM CDT us Forest Guerrero MD URINE ORDERABLES Final Res ult [facility] [address] [place] [address] * (ABNORMAL) CBC with Auto Differential (12/24/2024 9:39 AM CDT) Only the most recent of2 resultswithin the time period is included. WBC 9.80 4.00 - 12.00 10(3)/mcL 12/24/2024 9:47 AM CDT [facility] RBC 5.53 4.40 - 5.80 10(6)/[facility] 12/24/2024 9:47 AM CDT [facility] HEMOGLOBIN (HGB) 15.6 13.0 - 16.5 g/dL 12/24/2024 9:47 AM CDT [facility] HEMATOCRIT (HCT) 47.0 38.0 - 50.0 % 12/24/2024 9:47 AM CDT [facility] MCV 85.0 82.0 - 96.0 fL 12/24/2024 9:47 AM CDT [facility] MCH 28.2 26.0 - 32.0 pg 12/24/2024 9:47 AM CDT [facility] MCHC 33.2 31.0 - 36.0 g/dL 12/24/2024 9:47 AM CDT [facility] PLATELET COUNT 373 140 - 440 10(3)/[facility] 12/24/2024 9:47 AM CDT [facility] RDW 12.9 11.8 - 15.5 % 12/24/2024 9:47 AM CDT [facility] MPV 10.2 8.0 - 12.6 fL 12/24/2024 9:47 AM CDT [facility] NEUTROPHILS 71.1(H) 40.0 - 68.0 % 12/24/2024 9:47 AM CDT [facility] LYMPHOCYTES 20.4 19.0 - 49.0 % 12/24/2024 9:47 AM CDT [facility] MONOCYTES 8.2 3.0 - 13.0 % 12/24/2024 9:47 AM CDT [facility] EOSINOPHILS 0.0 0.0 - 8.0 % 12/24/2024 9:47 AM CDT [facility] BASOPHILS 0.3 0.0 - 1.0 % 12/24/2024 9:47 AM CDT [facility] ABSOLUTE NEUTROPHILS 6.97(H) 1.40 - 5.30 10(3)/[facility] 12/24/2024 9:47 AM CDT [facility] ABSOLUTE LYMPHOCYTES 2.00 0.90 - 3.30 10(3)/[facility] 12/24/2024 9:47 AM CDT [facility] ABSOLUTE MONOCYTES 0.80 0.10 - 0.90 10(3)/[facility] 12/24/2024 9:47 AM CDT [facility] ABSOLUTE EOSINOPHIL 0.00 0.00 - 0.50 10(3)/[facility] 12/24/2024 9:47 AM CDT [facility] ABSOLUTE BASOPHILS 0.03 0.00 - 0.10 10(3)/[facility] 12/24/2024 9:47 AM CDT [facility] NRBC PER 100 WBC 0 12/25/19 25 9:47 AM CDT [facility] Blood Venipuncture / Unknown 12/24/2024 9:39 AM CDT 12/24/2024 9:39 AM CDT us Forest Guerrero MD HEMATOLOGY ORDERABLES Stephie sasha Result [facility] [address] [place] [address] * Magnesium Level (12/24/2024 9:39 AM CDT) [facility] MAGNESIUM 1.9 1.6 - 2.6 mg/dL 12/24/2024 10:09 AM CDT [facility] Blood Venipuncture / Unknown 12/24/2024 9:39 AM CDT 12/24/2024 9:39 AM CDT Forest Guerrero MD CHEMISTRY ORDERABLES Final Result Performing Organization Address City/[facility] Co de Phone Number [facility] [address] [place] [address] * (ABNORMAL) Lipase (12/24/2024 9:39 AM CDT) Only the most recent of2 resultswithin the time period is included. Pathologist [facility] LIPASE 6(L) 8 - 78 U/L 12/24/2024 10:09 AM CDT [facility] Blood Venipuncture / Unknown 12/24/2024 9:39 AM CDT 12/24/2024 9:39 AM CDT Forest Guerrero MD CHEMISTRY ORDERABLES Final Result Performing Organization Address [facility] Co de Phone Number [facility] [address] [place] [address] * (ABNORMAL) CMP (12/24/2024 9:39 AM CDT) Only the most recent of2 resultswithin the time period is included. [facility] SODIUM 140 136 - 145 mmol/L 12/24/2024 10:09 AM CDT [facility] POTASSIUM 3.8 3.5 - 5.1 mmol/L 12/24/2024 10:09 AM CDT [facility] CHLORIDE 102 98 - 107 mmol/L 12/24/2024 10:09 AM CDT [facility] CO2, VENOUS 21(L) 22 - 30 mmol/L 12/24/2024 10:09 AM CDT [facility] ANION GAP 20.8(H) <18.0 mmol/L 12/24/2024 10:09 AM CDT [facility] GLUCOSE 204(H) 70 - 99 mg/dL 12/24/2024 10:09 AM CDT [facility] BUN 27(H) 9 - 21 mg/dL 12/24/2024 10:09 AM [facility] CREATININE, BLOOD 1.31(H) 0.70 - 1.30 mg/dL 12/24/2024 10:09 AM [facility] BUN/CREATININE RATIO 21(H) 12 - 20 ratio 12/24/2024 10:09 AM [facility] TOTAL PROTEIN 8.4(H) 6.0 - 8.0 g/dL 12/24/2024 10:09 AM [facility] ALBUMIN 5.1(H) 3.5 - 5.0 g/dL 12/24/2024 10:09 AM [facility] A/G RATIO 1.5 1.0 - 2.2 12/24/2024 10:09 AM [facility] CALCIUM 9.7 8.7 - 10.5 mg/dL 12/24/2024 10:09 AM [facility] T BILI 1.1 0.2 - 1.2 mg/dL 12/24/2024 10:09 AM [facility] SGOT (AST) 22 <43 U/L 12/24/2024 10:09 AM [facility] SGPT (ALT) 16 <56 U/L 12/24/2024 10:09 AM [facility] ALKALINE PHOSPHATASE 80 40 - 150 U/L 12/24/2024 10:09 AM [facility] GFR, ESTIMATED >60 >=60 12/24/2024 10:09 AM [facility] Comment: Creatinine Clearance is the preferred criteria for selecting drug dose adjustments in renally impaired patients. The GFR is provided as additional pertinent clinical information. GFR is reported in mL/min/1.73 sq m. Calculation based on the Chronic Kidney Disease Epidemiology Collaboration (CKD- EPI) equation refit without adjustment for race. GFR, EST. >60 >=60 025 10:09 AM [facility] GFR, EST. NONAFRICAN >60 >=60 12/24/2024 10:09 AM CDT [facility] Blood Venipuncture / Unknown 12/24/2024 9:39 AM CDT 12/24/2024 9:39 AM CDT Forest Guerrero MD CHEMISTRY ORDERABLES Final Result Performing Organization Address [facility] de Phone Number [facility] [address] [place] [address] * Gold Top Tube (12/24/2024 9:20 AM CDT) Blood No Phlebotomy Charged / Unknown 12/24/2024 9:20 AM CDT 12/24/2024 9:38 AM CDT Forest Guerrero MD CHEMISTRY ORDERABLES Final Result Performing Organization Address [facility] de Phone Number [facility] [address] [place] [address] * Blue Top Tube (12/24/2024 9:20 AM CDT) Blood No Phlebotomy Charged / Unknown 12/24/2024 9:20 AM CDT 12/24/2024 9:38 AM CDT Forest Guerrero MD HEMATOLOGY ORDERABLES Stephie l Result Performing Organization Address [facility] de Phone Number [facility] [address] [place] [address] * (ABNORMAL) POCT Glucose (12/24/2024 9:17 AM CDT) Only the most recent of2 resultswithin the time period is included. GLUCOSE,BEDSID E POCT 191(H) 70 - 99 mg/dL 12/24/2024 9:23 AM CDT [facility] Comment:Patient RN Performed Blood 12/24/2024 9:17 AM CDT 12/24/2024 9:23 AM CDT us None Provider POINT OF CARE TESTING Final Resu lt Performing Organization Address City/[facility]/ZIP Co de Phone Number [facility] [address] [place] [address] * TROPONIN I, HIGH SENSITIVITY (HSTRP) (12/16/2024 12:18 PM CDT) Only the most recent of2 resultswithin the time period is included. TROPONIN I, HIGH SENSITIVITY- ALEMAN 3 <=35 ng/L 12/16/2024 1:03 PM CDT [facility] Comment: High-sensitivity troponin I results are reported in ng/L making the result appear to be 1,000 times higher than the contemporary troponin I value which is reported in ng/ml. Results from [place]. Blood Venipuncture / Unknown 12/16/2024 12:18 PM CDT 12/16/2024 12:33 PM CDT us Marquis Soni DO CHEMISTRY ORDERABLES Fi nal Result Performing Organization Address [facility] Co de Phone Number [facility] [address] [place] [address] * XR CHEST SINGLE VIEW PORTABLE (12/16/2024 11:28 AM CDT) Anatomical Region Laterality Modality Chest N/A Computed [...] Tristin Pretty M.D. RB: RB Report ID: [id number] Reading Location: [id number] Procedure Note Tristin Pretty MD - 12/16/2024 [...] Tristin Pretty M.D. RB: RB Report ID: [id number] Reading Location: [id number] IMPRESSION: Minimal bibasilar subsegmental atelectasis. Otherwise, no acute cardiopulmonary abnormality. us Marquis Soni DO IMG DIAGNOSTIC ORDERABL ES Final Result * ACETONE QUAL (12/16/2024 11:08 AM CDT) ACETONE Negative Negative 12/16/2024 11:29 AM CDT [facility] Blood Venipuncture / Unknown 12/16/2024 11:08 AM CDT 12/16/2024 11:14 AM CDT us Marquis Soni DO CHEMISTRY ORDERABLES Fi nal Result [facility] [address] [place] [address] * EKG 12 LEAD (12/16/2024 10:41 AM CDT) Only the most recent of2 resultswithin the time period is included. Ventricular Rate 81 BPM EXTERNAL EKG Atrial Rate 81 BPM EXTERNAL EKG P-R Interval 152 ms EXTERNAL EKG QRS Duration 74 ms EXTERNAL EKG Q-T Duration 368 ms EXTERNAL EKG QTC CALCULATION 427 ms EXTERNAL EKG P [place] 66 degrees EXTERNAL EKG R [place] 63 degrees EXTERNAL EKG T [place] 58 degrees EXTERNAL EKG 12/16/2024 10:4 1 AM CDT Impressions EXTERNAL EKG - 12/21/2024 10:53 PM CDT Normal sinus rhythm Septal infarct (cited on or before 16-DEC-2024) Abnormal ECG When compared with ECG of 16-DEC-2024 10:35, (Unconfirmed) No significant change was found Confirmed by Trina Marie ([id number]) on 12/21/2024 10:53:29 PM Narrative Procedure Note Trina Marie DO - 12/21/2024 IMPRESSION: Normal sinus rhythm Septal infarct (cited on or before 16-DEC-2024) Abnormal ECG When compared with ECG of 16-DEC-2024 10:35, (Unconfirmed) No significant change was found Confirmed by Trina Marie ([id number]) on 12/21/2024 10:53:29 PM us Marquis Soni DO IMG ECG ORDERABLES Stephie l Result Performing Organization Address City/[facility]/ZIP Co de Phone Number EXTERNAL EKG * EKG SCAN (12/16/2024 12:00 AM CDT) 12/16/2024 us Provider Scan IMG ECG ORDERABLES Final Result RESULTING AGENCY * (ABNORMAL) Hemoglobin A1C w/ Estimated Glucose (10/16/2024 2:39 AM CDT) HGB-A1C 7.9(H) 4.0 - 6.0 % 10/16/2024 6:43 AM CDT [facility] Est Average Glucose 180.0 mg/dL 10/16/2024 6:43 AM CDT [facility] Blood Venipuncture / Unknown 10/16/2024 2:39 AM CDT 10/16/2024 2:46 AM CDT Narrative [facility] - 10/16/2024 6:43 AM CDT HEMOGLOBIN A1C: DIABETIC PATIENTS: WELL-CONTROLLED: 6.2 - 7.0 INTERMEDIATE WELL-CONTROLLED: 7.0 - 9.0 POORLY-CONTROLLED: >9.0 Specimens containing greater than 5% of Hemoglobin F may result in lower than expected % HbA1C results. Sharita Kahn HAND WASHER, FRETTED INSTRUMENTS INSPECTOR CHEMISTRY ORDERABLES Stephie l Result Performing Organization Address [facility] de Phone Number [facility] [address] [place] [address] * (ABNORMAL) Lipid Panel AM (06/24/2019 5:44 AM WATER/WASTEWATER PROJECT ENGINEER) CHOLESTEROL 141 <=200 mg/dL 06/24/2019 1:58 PM WATER/WASTEWATER PROJECT ENGINEER [facility] TRIGLYCERIDES 158(H) <150 mg/dL 06/24/2019 1:58 PM WATER/WASTEWATER PROJECT ENGINEER [facility] HDL CHOLESTEROL 30.4(L) >40 mg/dL 1:58 PM WATER/WASTEWATER PROJECT ENGINEER [facility] LDL 79 5 - 130 mg/dL 06/24/2019 1:58 PM WATER/WASTEWATER PROJECT ENGINEER [facility] VLDL 32 5 - 55 mg/dL 06/24/2019 1:58 PM [facility] CHOL/HDL RATIO 4.6(H) 0.0 - 4.4 06/24/2019 1:58 PM WATER/WASTEWATER PROJECT ENGINEER [facility] NON-HDL CHOLESTEROL 110.6 <130 mg/dL 06/24/2019 1:58 PM WATER/WASTEWATER PROJECT ENGINEER [facility] LIPID FASTING 06/24/2019 1:58 PM WATER/WASTEWATER PROJECT ENGINEER [facility] Blood specimen (specimen) BLOOD SPECIMEN / Unknown Venipuncture / Unknown 06/24/2019 5:44 AM WATER/WASTEWATER PROJECT ENGINEER 06/24/2019 1:10 PM WATER/WASTEWATER PROJECT ENGINEER Toni Orourke MD CHEMISTRY ORDERABLES Fin al Result [facility] [address] [place] [address] from Last 3 Months or Most Recently [...] measures to stabilize the patient. Care Teams Sound Recording Technician Relationship Specialty Start Date End Date Prashanth Saldana, [address] [place] [address] PCP - General Physician It Technical Specialist 04/03/19
--- OUTSIDE RECORDS SUMMARY | 2025-02-01 10:59 | XMS_ITS | Referral Summary ---
Author Organization [facility] ospital Address [address] [place] [address] Care Team Providers Care Gasket Winder Name Role Phone Con Beltrán MD Unavailable [phone] Prashanth Saldana Primary Care Provider Sidney Russell MD Unavailable [phone] Encounters Date Type Department Care Team Description 01/29/20 25 Telephone [facility] Medical Group Gastroenterology at [address] [place] [phone] Cristin Tejada LPN 01/29/20 25 Telephone [facility] Gastroenterology [address] [place] [address] Medical Office Building [address], [address] [place] [address] Carmen Irving RN IOV scheduling 01/27/20 25 1:30 PM CDT Office Visit [facility] Medical Group Gastroenterology at [address] [place] [phone] Terrence Fitch MD Gastroparesis (Primary Dx); Gastroesophageal reflux disease without esophagitis; Marijuana use 01/27/20 25 10:00 AM CDT Office Visit [facility] Diabetes Endocrine Care at [address] [place] [phone] Nay Alford, REYNA Type 1 diabetes mellitus with hyperglycemia (HCC) (Primary Dx); Hypoglycemia; Mixed hyperlipidemia; Tandem T slim Insulin pump in place; Gastroparesis 01/07/20 25 Telephone [facility] Gastroenterology at [address] [place] [address] Arin Fischer 01/07/20 25 8:00 AM CDT Anesthesia Event [address] [address] Ronaldo Jerome, Vu Kevin CRNA 01/07/20 25 8:00 AM CDT - 01/07/20 25 8:30 AM CDT Surgery [address] [address] Terrence Fitch MD Not Performed ESOPHAGOGASTRODUODENOSCOPY 01/07/20 25 7:27 AM CDT - 01/07/20 8:07 AM CDT Hospital Encounter [address] [address] Terrence Fitch MD Discharge Disposition: Discharge to home or self care 01/02/20 Results Follow-Up [facility] Medical [facility] Gastroenterology at [address] [place] [address] Peter Rivera NP NM Gastric Emptying Study 12/31/19 25 10:13 AM CDT - 12/31/19 25 11:59 PM CDT Hospital Encounter [address] [address] Discharge Disposition: Discharge to home or self care 12/31/19 25 10:13 AM CDT - 12/31/19 25 11:59 PM CDT Hospital Encounter [address] [address] Discharge Disposition: Discharge to home or self care 12/31/19 25 10:13 AM CDT - 12/31/19 25 11:59 PM CDT Hospital Encounter [address] [address] Discharge Disposition: Discharge to home or self care 12/31/19 25 10:13 AM CDT - 12/31/19 25 11:59 PM CDT Hospital Encounter [address] [address] Discharge Disposition: Discharge to home or self care 12/31/19 10:13 AM CDT - 12/31/19 11:59 PM CDT Hospital Encounter [facility] [address] [place] [address] Nausea and vomiting, unspecified vomiting type; Type 1 diabetes mellitus with hyperglycemia (HCC) Discharge Disposition: Discharge to home or self care 12/26/19 Telephone [facility] Medical Group Gastroenterology at [address] [place] [address] Radhika Cunningham EGD Reschedule 12/22/19 Telephone [facility] Medical Group Gastroenterology at [address] [place] [address] Evelin Fischer MA 12/18/19 Telephone [facility] Medical [facility] Gastroenterology at [address] [place] [address] Cristin Tejada LPN 12/18/19 8:15 AM CDT Office Visit [facility] Medical Group Gastroenterology at [address] [place] [address] Peter Rivera NP Nausea and vomiting, unspecified vomiting type (Primary Dx); Abnormal CT scan, esophagus; Gastroesophageal reflux disease, unspecified whether esophagitis present; Type 1 diabetes mellitus with hyperglycemia (HCC); Tandem T slim Insulin pump in place; Marijuana use; Tobacco use disorder 12/03/19 4:04 AM CDT - 12/03/19 5:56 PM CDT Hospital Encounter [facility] ICU [address] [place] [address] Marcelina Cleaning MD Masetti, Paolo, MD Type 1 diabetes mellitus with ketoacidosis without coma (HCC) (Primary Dx); Gastroparesis; Nausea and vomiting, unspecified vomiting type Discharge Disposition: Left Against Medical Advice 12/01/19 7:54 AM CDT - 12/01/19 2:36 PM CDT Hospital Encounter [facility] ICU [address] [place] [address] Marcelina Cleaning MD Masetti, Paolo, MD Diabetic ketoacidosis without coma associated with type 1 diabetes mellitus (HCC) (Primary Dx); Hyperemesis Discharge Disposition: Left Against Medical Advice 11/06/19 Telephone [facility] Medical [facility] Diabetes Endocrine Care at [address] [place] [address] Nay Alford NP 11/05/19 Telephone [facility] Gastroenterology at [place] [address] [facility] [address] [place] [address] Radhika Cunningham 11/05/19 Telephone [facility] Diabetes Endocrine Care at [address] [place] [address] Nay Alford, REYNA 11/04/19 1:15 PM CDT - 11/04/19 2:44 PM CDT Emergency [facility] Emergency Department [address] [place] [address] Discharge Disposition: Left without being seen from Last 3 Months Allergies Active Allergy Reactions Criticality Noted Date Comments Haloperidol Nausea & Vomiting Low 02/12/2024 Medications metoclopramide (REGLAN) 10 mg tablet Take 1 tablet (10 mg total) by mouth 4 (four) times a day as needed Active naproxen (NAPROSYN) 500 mg tablet Take 1 tablet (500 mg total) by mouth 2 (two) times a day as needed 022 Active blood-glucose meter kit Use daily as directed for monitoring of blood sugar for diabetes e10.65 1 kit 1 023 Active lancets misc 1 each by other route 3 (three) times a day before meals E10.65 100 each 11 023 Active pen needle, diabetic 32 gauge x 32 needle Use to inject insulin daily. E10.65 50 each 11 023 Active blood glucose diagnostic (OneTouch Ultra Test) strip CHECK BLOOD SUGAR 3 TIMES DAILY OR DIRECTED 100 strip 11 024 Active traMADoL (ULTRAM) 50 mg tablet Take 1 tablet (50 mg total) by mouth every 6 (six) hours as needed for pain for up to 15 days 15 [address] (PROTONIX) 40 mg EC [...] gas, or nausea issues. 120 capsule 3 025 Active promethazine (PHENERGAN) 25 mg tablet Take one pill up to 4 times daily for nausea and vomiting unrelieved by Reglan and Zofran. 60 tablet 1 Active diphenhydrAMINE 25 mg capsule Take two pills up to 4 times daily to help with nausea/vomiting related to gastroparesis. 240 tablet/cap crista 3 Active insulin lispro (HumaLOG) 100 unit/mL vial for injection INJECT UP TO 100 UNITS DAILY PER INSULIN PUMP SETTINGS 30 mL 4 Active dicyclomine (BENTYL) 20 mg tablet TAKE 1 TABLET BY MOUTH EVERY 6 - 8 HOURS NEEDED FOR ABDOMINAL CRAMPING Active ondansetron ODT (ZOFRAN-ODT) 4 mg disintegrating tablet Take 1 tablet (4 mg total) by mouth Active Gvoke HypoPen 2-Pack 1 mg/0.2 mL auto-injectorIndi cations:patient with diabetes mellitus at risk of hypoglycemia Inject 1 mg under the skin as needed (as needed for severe hypoglycemia) 2 boxes of 2. Has severe hypoglycemia with bs in the 40's associated with being unresponsive. E10.65 0.4 mL 11 Active erythromycin ethylsuccinate (EES) suspension 400 mg/5 mLIndications:Gas troparesis Take 5 mls 10-15 minutes before eating 3 times daily for 28 days. 420 mL Active ondansetron (ZOFRAN) 4 mg tablet 022 2024 Discontinued(P atient Reported) insulin lispro (HumaLOG) 100 unit/mL vial for injection INJECT UP TO 100 UNITS DAILY PER INSULIN PUMP SETTINGS 30 mL 4 024 2024 Discontinued(R eorder) erythromycin ethylsuccinate (EES) suspension 400 mg/5 mLIndications:Gas troparesis Take 5 mls 10-15 minutes before eating 3 times daily for 28 days. 420 mL 025 2024 Discontinued Active Problems Problem Noted Date Diagnosed [...] pump in place 04/04/2022 Assessment & Plan (01/26/2025 11:20 AM CDT): This is a chronic condition which is not at goal. Download reviewed from 01/13/2025 to 01/26/2025 Type of insulin pump- tandem T slim with humalog insulin. Pump settings Basal 0000-1.25 ISF 30 Carb ratio-8 Active insulin time 5hrs. TARGET GLUCOSE 110 Avg Total daily insulin-54 units basal -28 units- 53% bolus -25 units- 47 % Interpretation- Average blood sugar-177. In target-60%. Hypoglycemia-35%, hyperglycemia -4% . Assessment & Plan (10/27/2024 8:59 AM CDT): [...] . Assessment & Plan (07/10/2022 9:22 AM DIRECTOR OF TRANSPORTATION): This is a chronic condition which is not at goal. Unable to Download as he has a new pump and is not connected on [employer]. Type of insulin pump- tandem T slim [...] of less than 70. Encouraged to contact [employer] and have a new pump shipped Discussed [...] statin Assessment & Plan (07/10/2022 9:19 AM DIRECTOR OF TRANSPORTATION): This is a chronic condition which is [...] G6 at home. He was seen in [facility], but missed appointment in the adult [...] prescribed. Assessment & Plan (08/04/2020 3:50 AM DIRECTOR OF TRANSPORTATION): H/o pancreatitis attributed to hypertriglyceridemia. TGs 215 on 05/27/20. -Continue home fenofibrate and atorvastatin Resolved Problems Problem Noted Date Diagnosed Date Resolved Date Leukocytosis 04/18/2021 04/04/2022 Gallbladder sludge 04/05/2021 Marijuana abuse 04/05/2021 04/04/2022 JACK (acute kidney injury) ([facility]) 10/25/2020 04/04/2022 Diarrhea 10/25/2020 04/04/2022 Hypokalemia 08/04/2020 04/04/2022 Assessment & Plan (08/04/2020 3:59 AM DIRECTOR OF TRANSPORTATION): K to 3.2 after hyperglycemia protocol s/p 40 mEq of IV K in ED. -CTM w/ BMP Nausea and vomiting 07/05/2020 04/04/20 22 Assessment & Plan (08/04/2020 4:10 AM DIRECTOR OF TRANSPORTATION): Patient has chronic N/V, now presenting w/ 3 days of persistent N/V. No abdominal pain. Lipase 15 on presentation. +MJ use. DDx: cyclic vomiting vs. diabetic gastroparesis. -Zofran prn -Pepcid -Can trial Reglan -Encourage MJ cessation Assessment & Plan (07/05/2020 4:24 PM DIRECTOR OF TRANSPORTATION): Etiology likely DKA. Other considerations are PUD [...] 04/04/2022 Assessment & Plan (07/05/2020 4:26 PM DIRECTOR OF TRANSPORTATION): Etiology likely DKA. pH is 7.50 (alkalosis) [...] 04/04/2022 Assessment & Plan (08/04/2020 3:41 AM DIRECTOR OF TRANSPORTATION): Patient multiple past hospitalizations for DKA, most recently in June presenting w/ DKA after 3 days of persistent N/V. BG was 338 w/ AG 18, bicarb 21, ketones 3.2. BG now in the 100s and AG close after hyperglycemia protocol. A1C 10.5 08/02/20. Is a patient of Dr. Swift at [facility] in [place]. Last seen on 07/25 with plan for [...] f/u. Assessment & Plan (07/05/2020 4:21 PM DIRECTOR OF TRANSPORTATION): DKA (ketones 1.4, BG 242, urine glucose [...] insulin regimen is needed at this time. 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 about [...] with diabetes mellitus due to underlying condition ([facility]) 04/04/2022 EKG abnormality 04/04/2022 Choledocholithiasis 04/04/20 22 Abdominal pain 04/04/2022 Social History Tobacco Use Types Packs/Day Years Used Date Smoking Tobacco: Every Day Vaping Smokeless Tobacco: Never Tobacco Cessation:Ready to Q uit: Not Asked; Counseling Given: Not Answered Alcohol Use Standard Drinks/Week Comments No 0 (1 standard drink = 0.6 oz pur e alcohol) [facility] Utilities Answer Date Recorded In the past 12 months has [employer] electric, gas, oil, or water [employer] threatened to shut off services in your [...] often do you attend chur ch or protestant services? Never 12/02/2024 Do you belong to any clubs o r organizations such as episcopal groups, unions, fraternal or athletic groups, or school groups? No 12/02/2024 How often do you attend meet ings of the clubs or organizations you belong to? Never 12/02/2024 Are you , , di vorced, , never , or living with a partner? Never 12/02/2024 AUDIT-C Answer Date Recorded Q1: How often do you have a drink containing alcohol? Never 01/26/2025 Q2: How many drinks containi ng alcohol do you have on a typical day when you are drinking? Patient does not drink Q3: How often do you have si x or more drinks on one occasion? Never 01/26/2025 Overall Financial Resource Strain (CARDIA) Answe r [...] time in the past 12 m [facility], were you homeless or living in a fpc (including now)? No 12/02/2024 Personal Safety Answer Date Recorded Have you ever been in or are you currently in a harmful physical or emotional relationship or is someone making you feel afraid or unsafe? Denies 01/06/2025 Sex and Gender Information Value Date Recorded Sex Assigned at Not on file Legal Sex Male 4:12 AM DIRECTOR OF TRANSPORTATION Gender Identity Not on file Sexual Orientation Not on file Last Filed Vital Signs Vital Sign Reading Time Taken Comments Blood Pressure 124/84 01/26/2025 1:22 PM CDT Pulse 88 01/26/2025 1:22 PM CDT Temperature 36.6 C (97.9 F) 01/06/2025 7:35 AM CDT Respiratory Rate 16 01/06/2025 7:35 AM CDT Oxygen Saturation 99% 01/26/2025 1:22 PM CDT Inhaled Oxygen Concentration - - Weight 70 kg (154 lb 4.8 oz) 01/26/2025 1:22 PM CDT Height 170.2 cm (5' 7) 01/26/2025 1:22 PM CDT Body Mass Index 24.17 01/26/2025 1:22 PM CDT Plan of Treatment Not on file Procedures Procedure Name Priority Date/Time Associated Diagnosis Comments POCT GLUCOSE Routine 01/26/2025 10:04 AM CDT Type 1 diabetes mellitus with hyperglycemia (HCC) RETINAVUE SCANNER - OU - BOTH EYES Routine 01/26/2025 Type 1 diabetes mellitus with hyperglycemia (HCC) POCT GLUCOSE DEVICE Routine 01/06/2025 7 :53 AM CDT NM GASTRIC EMPTYING STUDY Schedule Routine, Read Routine (OP Routine) 12/30/2024 2:53 PM CDT Nausea and vomiting, unspecified vomiting type Type 1 diabetes mellitus with hyperglycemia (HCC) INFECTION PREVENTION MRSA ONLY (STAPHYLOCOCCUS AUREUS) PCR STAT 12/02/2024 4:48 PM CDT EGFR Timed 12/02/2024 4:43 PM CDT BASIC METABOLIC PANEL Timed 12/02/2024 4:43 PM CDT POCT GLUCOSE DEVICE Routine 12/02/2024 4 :29 PM CDT POCT GLUCOSE DEVICE Routine 12/02/2024 12:13 PM CDT EGFR Timed 12/02/2024 10:25 AM [...] PM CDT POCT GLUCOSE DEVICE Routine 11/30/2024 12:48 PM CDT POCT GLUCOSE DEVICE Routine 11/30/2024 11:45 AM CDT POCT GLUCOSE DEVICE Routine 11/30/2024 10:[address] ABDOMEN PELVIS W CONTRAST [...] AUTO DIFFERENTIAL STAT 11/03/2024 1:31 PM CDT LIPID PANEL Routine 10/27/2024 8:51 AM CDT [...] Relevant to Health Maintenance Results * POCT glucose (01/26/2025 10:04 AM CDT) Glucose Blood, POC 156 Normal Fasting 70 - 100, Random <200 mg/dL Blood 01/26/2025 10:0 4 AM CDT us Nay Alford NP POINT OF CARE TEST ORDERABLES F inal Result * (ABNORMAL) RetinaVue Scanner - OU - Both Eyes (01/26/2025) Anatomical Region Laterality Modality Head Fundus Photograp hy 01/26/2025 us Nay Alford CARPET OR RUG LAYER HELPER OPHTH PHOTOGRAPHY Final Result * POCT glucose (01/06/2025 7:53 AM CDT) Glucose, POC 117 70 - 199 mg/dL Blood 01/06/2025 7:53 AM CDT 01/06/2025 7:53 AM CDT us Terrence Fitch MD LAB POCT ORDERABLES - DEVICE Fin al Result [facility] ([place]) [address] [facility] [place] [address] * NM Gastric Emptying Study (12/30/2024 2:53 PM CDT) Anatomical Region Laterality Modality Body N/A Nuclear Medicine 12/30/2024 4:53 PM CDT Narrative 12/30/2024 4:54 PM CDT EXAM DESCRIPTION: NM GASTRIC EMPTYING STUDY RADIOPHARMACEUTICAL: 500 uCi Tc-99m sulfur colloid incorporated into eggs p.o. REASON FOR STUDY: Nausea and vomiting. TECHNIQUE: After oral ingestion of the radiolabeled meal, sequential anterior and posterior abdominal images were obtained. COMPARISON: None FINDINGS: At 60 minutes, the residual activity is 82% (normal: 30-90%). At 120 minutes, the residual activity is 60% (normal: less than 60%). At 180 minutes, the residual activity is 37% (normal: less than 30%). At 240 minutes, the residual activity is 25% (normal: less than 10%). IMPRESSION: 1. Delayed gastric emptying. THIS IS AN ELECTRONICALLY VERIFIED FINAL REPORT 12/30/2024 4:54 PM - Electronically signed by Shaquille Contreras M.D. LB: [place]RA[place] Report ID: [id number] Reading Location: [id number] Procedure Note Shaquille Contreras MD - 12/30/2024 EXAM DESCRIPTION: NM GASTRIC EMPTYING STUDY RADIOPHARMACEUTICAL: 500 uCi Tc-99m sulfur colloid incorporated intoeggs p.o. REASON FOR STUDY: Nausea and vomiting. TECHNIQUE: After oral ingestion of the radiolabeled meal, sequentialanterior and posterior abdominal images were obtained. COMPARISON: None FINDINGS: At 60 minutes, the residual activity is 82% (normal: 30-90%). At 120 minutes, the residual activity is 60% (normal: less than 60%). At 180 minutes, the residual activity is 37% (normal: less than 30%). At 240 minutes, the residual activity is 25% (normal: less than 10%). IMPRESSION: 1. Delayed gastric emptying. THIS IS AN ELECTRONICALLY VERIFIED FINAL REPORT 12/30/2024 4:54 PM - Electronically signed by Shaquille Contreras M.D. LB: ISRAEL Report ID: [id number] Reading Location: [id number] Peter Rivera CARPET OR RUG LAYER HELPER IMG NM PROCEDURES F inal Result * Infection Prevention MRSA Only (Staphylococcus aureus) PCR Nasal (12/02/2024 4:48 PM CDT) PCR Scrn, Methicillin resistant Staphylococcus aureus (MRSA) Not Detected Not Detected Comment: Interpretive Data Testing performed using Nucleic Acid Amplification with the [employer] Xpert MRSA NxG Assay. This assay detects target DNA from mecA, mecC and the SCCmec insertion site of Staphylococcus aureus using Real-Time PCR and has been cleared by the FDA. Performance characteristics have been verified by the [facility]. Current Interpretive Data was last revised on 2022 Nasal 12/02/2024 4:48 PM CDT 12/02/2024 4:55 PM CDT Juan Car MD LAB MICROBIOLOGY - [facility] NYE Final Result [facility] ([place]) [address] [facility] Department [place] [address] * eGFR (12/02/2024 4:43 PM CDT) eGFR [...] MD LAB BLOOD ORDERABLES Final Resu lt [facility] ([place]) 1 [facility] [place] [address] * (ABNORMAL) Basic metabolic panel (12/02/2024 4:43 [...] ([place]) Glucose 341(H) 70 - 199 mg/dL [facility] ([place]) Comment: Interpretive Data Fasting glucose [...] Calcium 8.4(L) 8.5 - 10.3 mg/dL [facility] ([place]) Blood 12/02/2024 4:43 PM CDT 12/02/2024 4:55 PM CDT Juan Car MD LAB BLOOD ORDERABLES Final Resu lt ALYSSA [facility] ([place]) [address] [facility] [place] [address] * (ABNORMAL) POCT glucose (12/02/2024 4:29 PM CDT) Glucose, POC 309(H) 70 - 199 mg/dL Blood 12/02/2024 4:29 PM CDT 12/02/2024 4:29 PM CDT Juan Car MD LAB POCT ORDERABLES - DEVICE Fi nal Result ALYSSA [facility] ([place]) [address] [facility] [place] [address] * POCT glucose (12/02/2024 12:13 PM CDT) Glucose, POC 156 70 - 199 mg/dL Blood 12/02/2024 12:1 3 PM CDT 12/02/2024 12:13 PM CDT Juan Car MD LAB POCT ORDERABLES - DEVICE Fi nal Result Performing Organization Address City/[facility]/ZIP Co de Phone Number AL[facility]SS[facility]ER[facility] ([place]) [address] [facility] [place] [address] * eGFR (12/02/2024 10:25 AM CDT) eGFR [...] Resu lt [facility] ([place]) [address] [facility] [place] [address] * Basic metabolic panel (12/02/2024 10:25 AM CDT) Sodium 143 135 - 145 mmol/L Potassium, pl 3.8 3.3 - 4.9 mmol/L [facility] ([place]) Chloride 106 97 - 110 mmol/L [facility] ([place]) CO2 23 22 - 32 mmol/L [facility] ([place]) Anion gap 14 2 - 15 mmol/L [facility] ([place]) BUN 15 6 - 25 mg/dL [facility] ([place]) Creatinine 0.87 0.80 - 1.30 mg/dL [facility] ([place]) Glucose 92 70 - 199 mg/dL [facility] ([place]) Comment: Interpretive Data Fasting glucose [...] 2022. Calcium 8.5 8.5 - 10.3 mg/dL [facility] ([place]) Blood 12/02/2024 10:2 5 AM CDT 12/02/2024 10:32 AM CDT Juan Car MD LAB BLOOD ORDERABLES Final Resu lt ALYSSA [facility] ([place]) [address] [facility] [place] [address] * POCT glucose (12/02/2024 9:11 AM CDT) Glucose, POC 70 70 - 199 mg/dL Blood 12/02/2024 9:11 AM CDT 12/02/2024 9:11 AM CDT Juan Car MD LAB POCT ORDERABLES - DEVICE Fi nal Result Performing Organization Address City/[facility]/ZIP Co de Phone Number [facility] ([place]) [address] [facility] [place] [address] * (ABNORMAL) POCT glucose (12/02/2024 8:55 AM CDT) Glucose, POC 61(L) 70 - 199 mg/dL Blood 12/02/2024 8:55 AM CDT 12/02/2024 8:55 AM CDT us Juan Car MD LAB POCT ORDERABLES - DEVICE Fi nal Result [facility] [place]) [address] [facility] Department [place] [address] * XR Chest 1 Vw Portable (12/02/2024 [...] Shaquille Contreras M.D. LB: LB Report ID: [id number] Reading Location: [id number] Procedure Note Shaquille Contreras MD - 12/02/2024 [...] Shaquille Contreras M.D. LB: ISRA[place] Report ID: [id number] Reading Location: [place] [address] Marcelina Cleaning MD IMG XR PROCEDURES Final R esult * ECG 12 lead (12/02/2024 7:50 AM CDT) 12/02/2024 7:50 AM CDT Narrative [facility] - 12/02/2024 8:36 AM CDT Vent Rate: 90 bpm RR Interval: 665 msec WA Interval: 159 msec QRS Duration: 85 msec QT Interval: 360 msec QTC Interval: 407 msec P-R-T [place]: 84 - 76 - 76 degrees IMPRESSION: SINUS RHYTHM NONSPECIFIC T-WAVE ABNORMALITY BORDERLINE ECG NO CHANGE FROM PREVIOUS TRACING NOTED Electronically Signed By: Matt Mercado MD Marcelina Cleaning MD ECG ORDERABLES Final Res ult [facility] [employer] [facility] * (ABNORMAL) Urinalysis reflex to microscopic and [...] tendency for uric acid stone formation. Source: [employer] Current Interpretive Data was last revised on 2017 Protein, ur ql 3+(A) Negative [facility] ([place]) Glucose, ur ql 4+(A) Negative [facility] ([place]) Ketones, ur 3+(A) Negative [facility] ([place]) Bilirubin, ur Negative Negative [facility] ([place]) Blood, ur Negative Negative [facility] ([place]) Urobilinogen, ur 2.0(A) <2.0 mg/dL [facility] ([place]) Nitrite, ur Negative Negative [facility] ([place]) Leukocyte esterase, ur Negative Negative [facility] ([place]) UA reflex comment Reflex to microscopic UA will be performed. [facility] ([place]) Urine 12/02/2024 6:07 AM CDT 12/02/2024 6:15 AM CDT us Marcelina Cleaning MD LAB MICROBIOLOGY - GENERA L ORDERABLES Final Result Performing Organization Address [facility] Co de Phone Number ALYSSA [facility] ([place]) [address] [facility] [place] [address] * (ABNORMAL) Urinalysis, microscopic only (12/02/2024 6:07 AM CDT) WBC, ur 0-5 0 - 5 /HPF RBC, ur 11-20(A) 0 - 2 /HPF [facility] ([place]) Mucous, ur Present(A) [facility] A ([place]) Hyaline casts, ur 1-5 0 - 10 /LPF [facility] ([place]) Culture Reflex Comment Reflex conditions for urine culture (WBC >10) not met. [facility] ([place]) Urine 12/02/2024 6:07 AM CDT 12/02/2024 6:15 AM CDT us Jen Roth MD LAB URINE ORDERABLES Final Resul t Performing Organization Address City/[facility]/ZIP Co de Phone Number ALYSSA [facility] ([place]) [address] [facility] [place] [address] * (ABNORMAL) Blood gas, venous (12/02/2024 6:07 AM CDT) pH, Venous 7.44(H) 7.32 - 7.43 PCO2, Venous 34(L) 40 - 50 mmHg [facility] ([place]) PO2, Venous 86 mmHg [facility] ([place]) HCO3 Venous, Calculated 23 20 - 30 mmol/L [facility] ([place]) BE, venous 0 mmol/L [facility] ([place]) Comment: Interpretive Data No Reference Range Established Current Interpretive Data was last revised on 2017. Blood 12/02/2024 6:07 AM CDT 12/02/2024 6:15 AM CDT us Marcelina Cleaning MD LAB BLOOD ORDERABLES Stephie l Result [facility] [facility] ([place]) [address] [facility] [place] [address] * Influenza A/B, RSV, and COVID-19 PCR Nasopharyngeal (12/02/2024 4:28 AM CDT) COVID-19 RNA Negative Negative Influenza A RNA Negative Negative [facility] ([place]) Influenza B RNA Negative Negative [facility] ([place]) RSV RNA Negative Negative [facility] ([place]) Comment: Interpretive data: Testing performed by [facility]. This test is performed using the [employer] Xpert Xpress CoV-2/Flu/RSV plus assay. This is a multiplex, real- time reverse transcriptase PCR assay intended for the qualitative detection of nucleic acid from SARS-CoV-2, influenza A, influenza B, and respiratory syncytial virus. This assay has been cleared by the [place] Food and Drug administration. The performance characteristics have been verified by the [facility]. Results must be considered in the clinical context, and a negative result does not rule out infection. Interpretive Data last revised 2023 Nasopharyngeal 12/02/2024 4: 28 AM CDT 12/02/2024 4:30 AM CDT Narrative [facility] ([place] - 12/02/2024 5:15 AM CDT Is the Patient experiencing symptoms consistent with COVID?->Yes us Jen Roth MD LAB MICROBIOLOGY - GENERAL ORDER DENIS Final Result Performing Organization Address City/[facility]/ZIP Co de Phone Number ALYSSA CACERES ([place]) [address] [facility] [place] [address] * eGFR (12/02/2024 3:24 AM CDT) Pathologist [facility] eGFR >90 [...] BLOOD ORDERABLES Stephie l Result ALYSSA CACERES ([place]) [address] [facility] [place] [address] * (ABNORMAL) Differential, auto (12/02/2024 3:24 AM [...] Lymphocyte pct 18.6 % [facility] ([place]) Comment: Interpretive Data Percent cell count reference ranges are not reported, since discordance with absolute values may lead to misinterpretation of CBC data. Current Interpretive Data was last revised on 2017. Monocyte pct 5.2 % [facility] ([place]) Comment: Interpretive Data Percent cell count reference [...] 2017. Basophil pct 0.6 % [facility] ([place]) Comment: Interpretive Data Percent cell count reference ranges are not reported, since discordance with absolute values may lead to misinterpretation of CBC data. Current Interpretive Data was last revised on 2017. Blood 12/02/2024 3:24 AM CDT 12/02/2024 3:35 AM CDT us Marcelina Cleaning MD LAB BLOOD ORDERABLES Stephie baez Result [facility]SSA [facility] ([place]) [address] [facility] [place] [address] * (ABNORMAL) CBC with auto differential (12/02/2024 [...] MD LAB BLOOD ORDERABLES Stephie l Result [facility] [address] [facility] [place] [address] * Lipase (12/02/2024 3:24 AM CDT) Lipase 12 10 - 99 Units/L Blood Venous blood specimen / Unknown 12/02/2024 3:24 AM CDT 12/02/2024 3:35 AM CDT Marcelina Cleaning MD LAB BLOOD ORDERABLES Stephie l Result [facility] ([place]) [address] [facility] [place] [address] * (ABNORMAL) Comprehensive metabolic panel (12/02/2024 3:24 [...] BLOOD ORDERABLES Stephie l Result ALYSSA CACERES ([place]) 1 [facility] [place] [address] * POCT glucose (12/02/2024 3:21 AM CDT) Glucose, POC 111 70 - 199 mg/dL Blood 12/02/2024 3:21 AM CDT 12/02/2024 3:21 AM CDT us Notinfile Unknown LAB POCT ORDERABLES - DEVICE F inal Result Performing Organization Address [facility]/ZIP Co de Phone Number ALYSSA CACERES ([place]) 1 [facility] [place] [address] * POCT glucose (11/30/2024 1:58 PM CDT) Glucose, POC 177 70 - 199 mg/dL Blood 11/30/2024 1:58 PM CDT 11/30/2024 1:58 PM CDT us Juan Car MD LAB POCT ORDERABLES - DEVICE Fi nal Result Performing Organization Address [facility]/ZIP Co de Phone Number ALYSSA CACERES ([place]) 1 [facility] [place] [address] * Lactate (11/30/2024 12:51 PM CDT) Lactate 0.8 0.7 - 2.0 mmol/L Blood 11/30/2024 12:5 1 PM CDT 11/30/2024 12:57 PM CDT us Juan Car MD LAB BLOOD ORDERABLES Final Resu lt ALYSSA [facility]ERES ([place]) 1 [facility] [place] [address] * eGFR (11/30/2024 12:51 PM CDT) eGFR [...] BLOOD ORDERABLES Final Resu lt [facility] [place]) [address] [facility] [place] [address] * Beta-hydroxybutyrate (11/30/2024 12:51 PM CDT) Beta-Hydroxybut yrate 0.5 <=0.5 mmol/L Comment:Testing performed by : [facility], [address] [place] [address], [place]., [address] Blood 11/30/2024 12:5 1 PM CDT 11/30/2024 10:37 PM CDT Juan Car MD LAB BLOOD ORDERABLES Final Resu lt ALYSSA [facility]ER[facility] ([place]) [address] [facility] [place] [address] * Basic metabolic panel (11/30/2024 12:51 PM CDT) Pathologist [facility] Sodium 138 135 - 145 mmol/L Potassium, pl 4.5 3.3 - 4.9 mmol/L [facility] ([place]) Chloride 103 97 - 110 mmol/L [facility] ([place]) CO2 22 22 - 32 mmol/L [facility] ([place]) Anion gap 13 2 - 15 mmol/L [facility] ([place]) BUN 19 6 - 25 mg/dL [facility] ([place]) Creatinine 0.91 0.80 - 1.30 mg/dL [facility] ([place]) Glucose 192 70 - 199 mg/dL [facility] ([place]) Comment: Interpretive Data Fasting glucose >/= 126 [...] 2022. Calcium 8.8 8.5 - 10.3 mg/dL [facility] ([place]) Blood 11/30/2024 12:5 1 PM CDT 11/30/2024 12:57 PM CDT us Juan Car MD LAB BLOOD ORDERABLES Final Resu lt ALYSSA MAGALLANES) 1 [facility] [place] [address] * POCT glucose (11/30/2024 12:48 PM CDT) Glucose, POC 176 70 - 199 mg/dL Blood 11/30/2024 12:4 8 PM CDT 11/30/2024 12:48 PM CDT Juan Car MD LAB POCT ORDERABLES - DEVICE Fi nal Result Performing Organization Address [facility] Co de Phone Number ALYSSA CACERES [place]) 1 [facility] [place] [address] * POCT glucose (11/30/2024 11:45 AM CDT) Glucose, POC 143 70 - 199 mg/dL Blood 11/30/2024 11:4 5 AM CDT 11/30/2024 11:45 AM CDT Juan Car MD LAB POCT ORDERABLES - DEVICE Fi nal Result Performing Organization Address [facility] Co de Phone Number ALYSSA CACERES [place]) 1 [facility] [place] [address] * POCT glucose (11/30/2024 10:30 AM CDT) Glucose, POC 124 70 - 199 mg/dL Blood 11/30/2024 10:3 0 AM CDT 11/30/2024 10:30 AM CDT Juan Car MD LAB POCT ORDERABLES - DEVICE Fi nal Result Performing Organization Address [facility] Co de Phone Number ALYSSA CACERES [place]) 1 [facility] [place] [address] * CT Abdomen Pelvis W Contrast (11/30/2024 [...] Kurt Ferro M.D. MM: MM Report ID: [id number] [place] Location: [id number] Procedure Note Kurt Ferro MD - 11/30/2024 [...] Kurt Ferro M.D. MM: MM Report ID: [id number] [place] Location: [id number] Marcelina Cleaning MD IMG CT PROCEDURES Final R esult * Influenza A/B, RSV, and COVID-19 PCR Nasopharyngeal (11/30/2024 8:32 AM CDT) Pathologist [facility] COVID-19 RNA Negative Negative Influenza A RNA Negative Negative [facility] ([place]) Influenza B RNA Negative Negative [facility] ([place]) RSV RNA Negative Negative [facility] ([place]) Comment: Interpretive data: Testing performed by [facility]. This test is performed using the [employer] Xpert Xpress CoV-2/Flu/RSV plus assay. This is a multiplex, real- time reverse transcriptase PCR assay intended for the qualitative detection of nucleic acid from SARS-CoV-2, influenza A, influenza B, and respiratory syncytial virus. This assay has been cleared by the [place] Food and Drug administration. The performance characteristics have been verified by the [facility]. Results must be considered in the clinical context, and a negative result does not rule out infection. Interpretive Data last revised 2023 Nasopharyngeal 11/30/2024 8: 32 AM CDT 11/30/2024 8:38 AM CDT Narrative [facility] ([place]) - 11/30/2024 9:16 AM CDT Is the Patient experiencing symptoms consistent with COVID?->Yes Marcelina Cleaning MD LAB MICROBIOLOGY - GENERA L ORDERABLES Final Result Performing Organization Address City/[facility]/ZIP Co de Phone Number [facility] ([place]) [address] [facility] [place] [address] * (ABNORMAL) Sepsis Lactate w/ Reflex (11/30/2024 8:32 AM CDT) Pathologist [facility] Sepsis Lactate 3.4(H) 0.7 - 2.0 mmol/L Blood 11/30/2024 8:32 AM CDT 11/30/2024 8:35 AM CDT Marcelina Cleaning MD LAB BLOOD ORDERABLES Stephie l Result [facility] ([place]) [address] [facility] [place] [address] * eGFR (11/30/2024 8:32 AM CDT) eGFR [...] LAB BLOOD ORDERABLES Stephie baez Result ALYSSA [facility] ([place]) [address] [facility] [place] [address] * (ABNORMAL) Differential, auto (11/30/2024 8:32 AM CDT) Pathologist [facility] Neutrophil abs 8.26(H) 1.50 - 6.50 K/cumm [...] 2017. Monocyte pct 7.3 % [facility] ([place]) Comment: Interpretive Data [...] BLOOD ORDERABLES Stephie baez Result ALYSSA CACERES ([place]) [address] [facility] [place] [address] * (ABNORMAL) CBC with auto differential (11/30/2024 [...] RDW SD 40.5 35.7 - 48.1 fL [facility] NRBC abs 0.00 0.00 - 0.01 K/cumm [facility] ([place]) Blood 11/30/2024 8:32 AM CDT 11/30/2024 8:35 AM CDT Marcelina Cleaning MD LAB BLOOD ORDERABLES Stephie l Result ALYSSA CACERES ([place]) [address] [facility] [place] [address] * Magnesium (11/30/2024 8:32 AM CDT) Magnesium 2.2 1.4 - 2.5 mg/dL Blood 11/30/2024 8:32 AM CDT 11/30/2024 10:34 AM CDT Marcelina Cleaning MD LAB BLOOD ORDERABLES Stephie l Result ALYSSA CACERES ([place]) 1 [facility] [place] [address] * (ABNORMAL) Hemoglobin A1c (11/30/2024 8:32 AM CDT) Hgb A1C 8.1(H) 4.0 - 5.6 % Estimated Average Glucose 186 mg/dL [facility]SS[facility] ([place]) Comment: The ADA recommends reporting an estimated Average Glucose (eAG) with all Hemoglobin A1c results using the equation derived from a study of 507 normal and diabetic adults. Minority populations were underrepresented and children were not included. (Diabetes Care 31:3987-2001, 2008). The eAG is not equivalent to a fasting glucose. Blood 11/30/2024 8:32 AM CDT 11/30/2024 8:57 AM CDT Marcelina Cleaning MD LAB BLOOD ORDERABLES Stephie l Result Performing Organization Address [facility] Co de Phone Number [facility] ([place]) [address] [place] [address] [place] [address] * Blood gas, venous (11/30/2024 8:32 AM CDT) Pathologist [facility] pH, Venous 7.39 7.32 - 7.43 PCO2, Venous 42 40 - 50 mmHg ALYSSA [facility] ([place]) PO2, Venous 49 mmHg ALYSSA A ([place]) Comment: Interpretive Data No reference range established. Current interpretive data was last revised 2017. HCO3 Venous, Calculated 25 20 - 30 mmol/L [facility] ([place]) BE, venous 0 mmol/L [facility] ([place] Comment: Interpretive Data No Reference Range Established Current Interpretive Data was last revised on 2017. Blood 11/30/2024 8:32 AM CDT 11/30/2024 8:49 AM CDT Marcelina Cleaning MD LAB BLOOD ORDERABLES Stephie l Result Performing Organization Address City/[facility] Co de Phone Number [facility] ([place]) 1 [facility] [place] [address] * (ABNORMAL) Comprehensive metabolic panel (11/30/2024 8:32 [...] MD LAB BLOOD ORDERABLES Stephie baez Result [facility] ([place]) [address] [place] [address] * ECG 12 lead (11/30/2024 8:31 AM CDT) 11/30/2024 8:31 AM CDT Narrative [facility] - 11/30/2024 8:49 AM CDT Vent Rate: 92 bpm RR Interval: 649 msec [place] Interval: 162 msec QRS Duration: 94 msec QT Interval: 349 msec QTC Interval: 399 msec P-R-T [place]: 78 - 60 - 72 degrees IMPRESSION: SINUS RHYTHM POSSIBLE LEFT ATRIAL ENLARGEMENT [-0.1mV P-WAVE IN V1/V2] BORDERLINE ECG compared to prior EKG no changes Electronically Signed By: Keny Rock MD [facility] Marcelina Cleaning MD ECG ORDERABLES Final Res ult [facility] * POCT glucose (11/30/2024 8:13 AM CDT) Glucose, POC 193 70 - 199 mg/dL Blood 11/30/2024 8:13 AM CDT 11/30/2024 8:13 AM CDT Marcelina Cleaning MD LAB POCT ORDERABLES - DEV ICE Final Result [facility]IAN [facility] ([place]) 1 [facility] [place] [address] * Sepsis Lactate w/ Reflex (11/03/2024 1:33 PM CDT) Sepsis Lactate 1.2 0.7 - 2.0 mmol/L Blood 11/03/2024 1:33 PM CDT 11/03/2024 1:36 PM CDT us Chato Daniels MD LAB BLOOD ORDERABLES Final Res ult [facility] ([place]) [address] [facility] [place] [address] * Blood gas, venous (11/03/2024 1:33 PM CDT) pH, Venous 7.37 7.32 - 7.43 PCO2, Venous 47 40 - 50 mmHg [facility] ([place]) PO2, Venous 33 mmHg [facility] ([place]) HCO3 Venous, Calculated 26 20 - 30 mmol/L [facility] ([place]) BE, venous 1 mmol/L [facility] ([place]) Comment: Interpretive Data No Reference Range Established Current Interpretive Data was last revised on 2017. Blood 11/03/2024 1:33 PM CDT 11/03/2024 1:36 PM CDT us Chato Daniels MD LAB BLOOD ORDERABLES Final Res ult [facility] ([place]) 1 [facility] [place] [address] * eGFR (11/03/2024 1:31 PM CDT) eGFR [...] BLOOD ORDERABLES Final Res ult [facility] ([place]) [address] [facility] [place] [address] * Differential, auto (11/03/2024 1:31 PM CDT) Neutrophil abs 2.63 1.50 - 6.50 K/cumm Imm gran abs 0.01 0.00 - 0.10 K/cumm [facility] ([place]) Lymphocyte abs 2.35 0.80 - 3.30 K/cumm [facility] ([place]) Monocyte abs 0.57 0.20 - 0.80 K/cumm [facility] ([place]) Eosinophil abs 0.02 0.00 - 0.50 K/cumm [facility] ([place]) Basophil abs 0.04 0.00 - 0.10 K/cumm [facility] ([place]) Neutrophil pct 46.8 % [facility] ([place]) Comment: Interpretive Data Percent cell count reference ranges are not reported, since discordance with absolute values may lead to misinterpretation of CBC data. Current Interpretive Data was last revised on 2017. Imm gran pct 0.2 % [facility] ([place]) Comment: Interpretive Data Percent cell count reference [...] 2017. Monocyte pct 10.1 % [facility] ([place]) Comment: Interpretive Data Percent cell count reference [...] Res ult [facility] ([place]) [address] [facility] [place] [address] * CBC with auto differential (11/03/2024 1:31 [...] BLOOD ORDERABLES Final Res ult ALYSSA [facility] ([place]) 1 [facility] [place] [address] * Lipase (11/03/2024 1:31 PM CDT) Lipase 11 10 - 99 Units/L Blood Venous blood specimen / Unknown 11/03/2024 1:31 PM CDT 11/03/2024 1:37 PM CDT Chato Daniels MD LAB BLOOD ORDERABLES Final Res ult Performing Organization Address City/[facility] Co de Phone Number ALYSSA CACERES ([place]) 1 [facility] [place] [address] * Comprehensive metabolic panel (11/03/2024 1:31 PM CDT) Sodium 140 135 - 145 mmol/L Potassium, pl 4.6 3.3 - 4.9 mmol/L [facility] ([place]) Chloride 103 97 - 110 mmol/L [facility] ([place]) CO2 23 22 - 32 mmol/L [facility] ([place]) Anion gap 15 2 - 15 mmol/L [facility] ([place]) BUN 19 6 - 25 mg/dL [facility] ([place]) Creatinine 0.95 0.80 - 1.30 mg/dL [facility] ([place]) Glucose 153 70 - 199 mg/dL [facility] ([place]) Comment: Interpretive Data Fasting glucose [...] 2022. Calcium 9.9 8.5 - 10.3 mg/dL [facility] ([place]) Bilirubin, total 0.5 0.1 - 1.2 mg/dL [facility] ([place]) Protein, pl 7.7 6.5 - 8.5 g/dL [facility] ([place]) Albumin 4.6 3.5 - 5.0 g/dL [facility] ([place]) Alk phos 79 40 - 130 Units/L [facility] ([place]) ALT 16 7 - 55 Units/L [facility] ([place]) AST 25 10 - 50 Units/L [facility] ([place]) Blood 11/03/2024 1:31 PM CDT 11/03/2024 1:37 PM CDT us Chato Daniels MD LAB BLOOD ORDERABLES Final Res ult [facility] ([place]) [address] [facility] [place] [address] * Thyroid Function Bowman (10/27/2024 8:51 AM CDT) TSH 1.51 0.30 - 4.20 mcIUnit/mL Blood 10/27/2024 8:51 AM CDT 10/27/2024 2:50 PM CDT us Nay Alford NP LAB BLOOD ORDERABLES Final Resu lt [facility] [address] [place] [address] * (ABNORMAL) Albumin Creatinine Ratio, Urine (10/27/2024 8:51 AM CDT) Albumin Ur 96.3 mg/L Comment: Interpretive Data No reference range established. Current interpretive data was last revised 2018. Creatinine Ur 124.7 mg/dL [facility] Comment: Interpretive Data No reference range established. Current interpretive data was last revised 2018. Albumin Creatinine Ratio, Ur 77(H) 1 - 29 mg/g [facility] Urine 10/27/2024 8:51 AM CDT 10/27/2024 2:50 PM CDT us Nay Alford CARPET OR RUG LAYER HELPER LAB URINE ORDERABLES Final Resu lt ALYSSA [address] [place] [address] * (ABNORMAL) Lipid panel (10/27/2024 8:51 AM [...] revised on 2018. Chol/HDL ratio 4 [facility]SS[facility] AHMAD[facility] Blood 10/27/2024 8:51 AM CDT 10/27/2024 2:50 PM CDT Narrative ALYSSA - 10/27/2024 3:21 PM CDT These lab test should be done fasting. This means do not eat or drink for at least 12 hours prior to getting your blood drawn. Has the patient been fasting for 8 hours or more?->Yes Nay Alford NP LAB BLOOD ORDERABLES Final Resu lt ALYSSA AHMADI [address] Department [place] [address] * DIABETES FOOT EXAM (04/08/2018) Diabetic Foot Exam Normal Historical Provider MD HEALTH MAINTENANCE Final Result from Last 3 Months or Most Recently Relevant to Health Maintenance Insurance [facility] OTHER Address: [address] [address] [place] [address] [facility] Advance Directives For more information, please contact: [phone] Documents on File Type Date Recorded Patient Biological Science Aide Expl anation ADVANCE DIRECTIVE 05/26/2020 6:51 PM ADVANCE DIRECTIVE 05/26/2020 * Full Code (Latest Code Status on File) Date Activated Date Inactivated Comments 01/06/2025 7:30 AM 01/06/2025 12:13 PM * Full Code Date Activated Date Inactivated Comments 01/06/2025 7:30 AM 01/06/2025 7:30 AM * Full Code Date Activated Date Inactivated Comments 12/02/2024 8:01 AM 12/02/2024 10:17 PM * Full Code Date Activated Date Inactivated Comments 11/30/2024 10:17 AM 11/30/2024 7:02 PM * Full Code Date Activated Date Inactivated Comments 10/17/2024 11:49 AM 10/18/2024 1:28 PM Care Teams Gasket Winder Relationship Specialty Start Date End Date Prashanth Saldana PA [address] [place] [address] PCP - General Family Practice 05/25/20 Con Beltrán MD Referring Physician Pediatric Endocrinology 12/20/18 Sidney Russell MD [address] [place] [address] Consulting Physician Gastroenterology 04/19/21
--- OUTSIDE RECORDS SUMMARY | 2025-02-01 10:59 | XMS_ITS | Encounter Summary ---
Author Organization [facility] Address [address] [place] [address] Phone Care Team Providers Care Detention Sergeant Name Role Phone Prashanth Saldana Primary Care Provider [phone] Heidi Swift MD Unavailable Reason for Visit * Reason Comments Medication Refill Encounter Details Date Type Department Care Team (Late st Contact Info) Description 08/28/2021 Refill [facility] - Endocrinology - [place] [address] [place] [address] Heidi Swift MD [address] [address] Medication Refill Social History Tobacco [...] Coronavirus / COVID-19? Yes 08/01/2021 9:49 AM COAL GRADER documented as of this encounter Miscellaneous Notes * Telephone Encounter - Eli Jones RN - 08/28/2021 9:00 AM COAL GRADER Requested Prescriptions Pending Prescriptions Disp Refills ??? insulin lispro (HumaLOG) 100 UNIT/ML Solution [Pharmacy Med Name: HUMALOG 100 UNIT/ML VIAL] 30 mL 0 Sig: UP TO 100 UNITS/DAY PER INSULIN PUMP SETTINGS Next appt: 09/12/2021 GRADER documented in this encounter Plan of Treatment Not on file documented as of this encounter Visit Diagnoses Not on filedocumented in this encounter Additional Health Concerns Infection Onset Date Last Indicated Resolved Time COVID - 19 04/13/2022 04/13/2022 04/13/2022 10:4 2 AM CDT COVID - 19 05/17/2022 05/17/2022 05/27/2022 12:1 6 AM CDT Respiratory Rule-Out 05/17/2022 05/17/2022 022 12:16 AM COAL GRADER COVID - 19 06/27/2022 06/27/2022 07/07/2022 12:1 6 AM COAL GRADER Influenza 06/27/2022 06/27/2022 07/04/2022 12:1 6 AM COAL GRADER COVID - 19 04/05/2024 04/05/2024 04/05/2024 10:2 0 PM CDT COVID - 19 10/16/2024 10/16/2024 10/16/2024 7:05 AM CDT documented as of this encounter Care Teams Detention Sergeant Relationship Specialty Start Date End Date Prashanth Saldana PAC [address] [place] [id number] PCP - General Physician Herb Counselor 04/03/19 Heidi Swift MD [address] [address] Consulting Physician Endocrinology 08/09/20 09/23/24 documented as of this encounter
--- OUTSIDE RECORDS SUMMARY | 2025-02-01 10:59 | XMS_ITS | Encounter Summary ---
Author Organization [facility] Address [address] [place] [address] Phone Care Team Providers Care Electrical Maintenance Engineer Name Role Phone Prashanth Saldana Primary Care Provider [phone] Heidi Swift MD Unavailable Reason for Visit * Reason Comments Medication Refill Encounter Details Date Type Department Care Team (Late st Contact Info) Description 12/27/2021 Refill [facility] - Endocrinology - [place] [address] [place] [address] Heidi Swift MD [address] [address] Medication Refill Social History Tobacco [...] Notes * Telephone Encounter - Saadia Lawson, [facility] - 12/29/2021 11:37 AM CDT Patient calling requesting refill of: Requested Prescriptions Pending Prescriptions Disp Refills ??? 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 [...] Respiratory Rule-Out 05/17/2022 05/17/2022 022 12:16 AM WINE PASTEURIZER COVID - 19 06/27/2022 06/27/2022 07/07/2022 12:1 6 AM WINE PASTEURIZER Influenza 06/27/2022 06/27/2022 07/04/2022 12:1 6 AM WINE PASTEURIZER COVID - 19 04/05/2024 04/05/2024 04/05/2024 10:2 0 PM CDT COVID - 19 10/16/2024 10/16/2024 10/16/2024 7:05 AM CDT documented as of this encounter Care Teams Electrical Maintenance Engineer Relationship Specialty Start Date End Date Prashanth Saldana PAC [address] [place] [id number] PCP - General Physician Mechanical Cad Drafter 04/03/19 Heidi Swift MD [address] [address] Consulting Physician Endocrinology 08/09/20 09/23/24 documented as of this encounter
--- OUTSIDE RECORDS SUMMARY | 2025-02-01 10:59 | XMS_ITS | Encounter Summary ---
Author Organization [facility] Address [address] [place] [address] Phone Care Team Providers Care Tie Hacker Name Role Phone Prashanth Saldana Primary Care Provider [phone] Heidi Swift MD Unavailable Reason for Visit * Reason Comments Medication Refill Encounter Details Date Type Department Care Team (Late st Contact Info) Description 07/24/2021 Refill [facility] - Endocrinology - [place] [address] [place] [address] Heidi Swift MD [address] [address] Medication Refill Social History Tobacco [...] COVID-19? No / Unsure 07/07/2021 3:14 PM SUPERVISOR CLOTH WINDING documented as of this encounter Miscellaneous Notes * Telephone Encounter - Eli Jones RN - 07/25/2021 8:10 AM SUPERVISOR CLOTH WINDING Requested Prescriptions Pending Prescriptions Disp Refills ??? Continuous Blood Gluc Sensor (Dexcom G6 Sensor) Misc [Pharmacy Med Name: DEXCOM G6 SENSOR] Sig: CHANGE SENSOR EVERY 10 DAYS. Next appt: 08/01/2021 RVISOR CLOTH WINDING documented in this encounter Plan of Treatment [...] Respiratory Rule-Out 05/17/2022 05/17/2022 022 12:16 AM SUPERVISOR CLOTH WINDING COVID - 19 06/27/2022 06/27/2022 07/07/2022 12:1 6 AM SUPERVISOR CLOTH WINDING Influenza 06/27/2022 06/27/2022 07/04/2022 12:1 6 AM SUPERVISOR CLOTH WINDING COVID - 19 04/05/2024 04/05/2024 04/05/2024 10:2 0 PM CDT COVID - 19 10/16/2024 10/16/2024 10/16/2024 7:05 AM CDT documented as of this encounter Care Teams Tie Hacker Relationship Specialty Start Date End Date Prashanth Saldana [facility] [address] [place] [id number] PCP - General Physician Turf And Grounds Supervisor 04/03/19 Heidi Swift MD [address] [id number] Consulting Physician Endocrinology 08/09/20 09/23/24 documented as of this encounter
--- OUTSIDE RECORDS SUMMARY | 2025-02-01 10:59 | XMS_ITS | Encounter Summary ---
Author Organization [facility] Address [address] [place] [address] Phone Care Team Providers Care Accountant Bookkeeper Name Role Phone Prashanth Saldana Primary Care Provider [phone] Heidi Swift MD Unavailable Reason for Visit * Reason Comments Medication Refill Encounter Details Date Type Department Care Team (Late st Contact Info) Description 09/17/2021 Refill [facility] - Endocrinology - [place] [address] [place] [address] Heidi Swift MD [address] [address] Medication Refill Social History Tobacco [...] Eli Jones RN - 09/19/2021 3:39 PM GAS ROLLER OPERATOR Requested Prescriptions Pending Prescriptions Disp Refills ??? Continuous Blood Gluc Transmit (Dexcom G6 Transmitter) Misc [Pharmacy Med Name: DEXCOM G6 TRANSMITTER] 3 Si EACH BY DOES NOT APPLY ROUTE EVERY 90 DAYS. CHANGE SENSOR EVERY 90 DAYS. Next appt: Message sent to schedule follow up. ROLLER OPERATOR documented in this encounter Plan of [...] Respiratory Rule-Out 05/17/2022 05/17/2022 022 12:16 AM GAS ROLLER OPERATOR COVID - 19 06/27/2022 06/27/2022 07/07/2022 12:1 6 AM GAS ROLLER OPERATOR Influenza 06/27/2022 06/27/2022 07/04/2022 12:1 6 AM GAS ROLLER OPERATOR COVID - 19 04/05/2024 04/05/2024 04/05/2024 10:2 0 PM CDT COVID - 19 10/16/2024 10/16/2024 10/16/2024 7:05 AM CDT documented as of this encounter Care Teams Accountant Bookkeeper Relationship Specialty Start Date End Date Prashanth Saldana PAC [address] [place] [address] PCP - General Physician Base Remover 04/03/19 Heidi Swift MD [address] [id number] Consulting Physician Endocrinology 08/09/20 09/23/24 documented as of this encounter
--- OUTSIDE RECORDS SUMMARY | 2025-02-01 10:59 | XMS_ITS | Encounter Summary ---
Author Organization [facility] Healthcare Address [address] [place] [address] Care Team Providers Care Bottle Assembler Name Role Phone Con Beltrán MD Unavailable [phone] Prashanth Saldana Primary Care Provider [phone] Sidney Russell MD Unavailable [phone] Encounter Details Date Type Department Care Team (Latest Contact Info) Description 01/01/2025 Results Follow-Up [facility] Gastroenterology at [address] [place] [address] Peter Rivera NP [address] [place] [address] [address] [place] [address] [place] Gastric Emptying Study Social History Tobacco Use Types Packs/Day Years Used Date Smoking Tobacco: Every Day Vaping Smokeless Tobacco: Never Alcohol Use Standard Drinks/Week Comments No 0 (1 standard drink = 0.6 oz pur e alcohol) [facility] Utilities Answer Date Recorded In the past 12 months has [employer], gas, oil, or water company threatened to [...] week 12/02/2024 How often do you attend [facility] or tenriism services? Never 12/02/2024 Do you belong to any clubs o r organizations such as yazdanism groups, unions, fraternal or athletic groups, or [...] any time in the past 12 m [facility], were you homeless or living in a fci (including now)? No 12/02/2024 Personal Safety Answer Date Recorded Have you ever been in or are you currently in a harmful physical or emotional relationship or is someone making you feel afraid or unsafe? 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 Likely worse depending on what he eats. Continue with plan provided at visit. documented in this encounter Plan of Treatment Not on file documented as of this encounter Visit Diagnoses Not on filedocumented in this encounter Care Teams Bottle Assembler Relationship Specialty Start Date End Date Prashanth Saldana PA [address] [place] [address] PCP - General Family Practice 05/25/20 Con Beltrán MD Referring Physician Pediatric Endocrinology 12/20/18 Sidney Russell MD [address] [place] [address] Consulting Physician Gastroenterology 04/19/21 documented as of this encounter
--- OUTSIDE RECORDS SUMMARY | 2025-02-01 10:59 | XMS_ITS | Clinical Summary ---
Author Organization [facility] Address [address] [place] [address] Care Team Providers Care Byproducts Extractor Name Role Phone Unavailable Primary Care Provider Unavailabl e Source Comments [facility],non-owned Affiliates and Associated Physician Practices is amultiple site organization consisting of ambulatory clinics and hospital sitesin [place], [place], [place] and [place]. This disclosure is being madepursuant to the Care Everywhere program and may not contain all information available regarding this patient. Last updated 18.[facility] Allergies No known active allergies Medications * [...] - URINE PROTEIN SCREENING 07/22/2024 INFLUENZA VACCINE (#1) 2025 ZOSTER VACCINE (1 of 2) 2049 [...] - 105 mg/dL 04/02/2020 3:39 AM CDT [facility] Sodium 137 136 - 145 mmol/L 04/02/2020 3:39 AM CDT [facility] Potassium 3.0(L) 3.5 - 5.1 mmol/L 04/02/2020 3:39 AM CDT [facility] Chloride 104 98 - 107 mmol/L 04/02/2020 3:39 AM CDT [facility] CO2 20(L) 23 - 31 mmol/L 04/02/2020 3:39 AM CDT [facility] Calcium 9.0 8.4 - 10.4 mg/dL 04/02/2020 3:39 AM CDT [facility] Anion Gap 13 8 - 16 mmol/L 04/02/2020 3:39 AM CDT [facility] BUN 6(L) 8.9 - 20.6 mg/dL 04/02/2020 3:39 AM CDT [facility] Creatinine 0.86 0.72 - 1.25 mg/dL 04/02/2020 3:39 AM CDT [facility] eGFR by MDRD >60 >60 mL/min/1.7 3m2 04/02/2020 3:39 AM CDT [facility] eGFR by MDRD >60 >60 mL/min/1.7 3m2 04/02/2020 3:39 AM CDT [facility] Blood BLOOD SPECIMEN / Unknown Lab Venipuncture / Unknown 04/02/2020 3:06 AM CDT 04/02/2020 3:20 AM CDT Robinson Wilkins MD LAB - CHEMISTRY ORDERABLES F inal Result [facility] [address] [place] [address] * (ABNORMAL) HEMOGLOBIN A1C (04/01/2020 12:04 PM CDT) Hemoglobin A1c 8.9(H) 4.2 - 5.6 % 04/01/2020 1:31 PM CDT [facility] Estimated Average Glucose 209 mg/dL 04/01/2020 1:31 PM CDT [facility] Blood BLOOD SPECIMEN / Unknown Venipuncture / Unknown 04/01/2020 12:04 PM CDT 04/01/2020 12:08 PM CDT Narrative [facility] - 04/01/2020 1:31 PM CDT The following cutoff levels are recommended by [employer]. A1c > 6.5% : considered [...] LAB - CHEMISTRY ORDERABLES F inal Result [facility] [address] [place] [address] from Last 3 Months or Most Recently Relevant to Health Maintenance [place] [address] [place] [address] [employer] [place] Advance Directives * Full Code (Latest Code Status on File) Date Activated Date Inactivated Comments 04/01/2020 1:52 PM 04/02/2020 1:54 PM
--- OUTSIDE RECORDS SUMMARY | 2025-02-01 11:00 | XMS_ITS | Data Portability ---
[facility] [address] [place] [address] Assessment No assessment recorded. Plan of Treatment Reminders Order Date Submit Date Provider Last Modified By Organization Details Last Modified Time Details Appointments None recorded. Lab CBC 2024 025 [facility], [address] [facility] [address], [place], [address], 5 10:16:08 CMP, serum or plasma 2024 025 [facility], [address] [facility] [address], [place], [address], 5 10:16:06 lipid panel, serum 2024 025 [facility], [address] [place] [address] 2, [place], [address], 5 10:16:04 HbA1c (hemoglob in A1c), blood 2024 025 CHRISTINA In-Office Order, Internal Use Only DO Not Attach Compendium DO Not Attach Compendium, Do Not Delete/merge, [id number] 12:17:21 urinalysi s, dipstick 2022 023 [email or web address] In-Office Order, Internal Use Only DO Not Attach Compendium DO Not Attach Compendium, Do Not Delete/merge, [id number] 15:45:59 Referral None recorded. Procedures None recorded. Surgeries None recorded. Imaging None recorded. Medication Orders buspirone 10 mg tablet 2022 023 kspraggsma Not available 5 14:51:23 ondansetr on 4 mg disintegr ating tablet 2021 CHRISTINA Not available 2 11:57:15 gabapenti n 300 mg capsule 2021 CHRISTINA Not available 2 11:57:12 nortripty line 25 mg capsule 2021 kclarkma Not available 3 15:12:41 omeprazol e 20 mg capsule,d elayed release 2021 kspraggsma Not available 5 14:51:49 metoclopr amide 10 mg tablet 2021 CHRISTINA Not available 2 11:57:11 Compro 25 mg rectal supposito ry 2021 CHRISTINA Not available 2 11:57:13 famotidin e 20 mg tablet 2021 CHRISTINA Not available 2 11:57:14 Humalog U-100 Insulin 100 unit/mL subcutane ous solution 2021 CHRISTINA Not available 2 11:57:15 naproxen 500 mg tablet 2021 kspraggsma Not available 5 14:51:45 ondansetr on HCl 4 mg tablet 2021 CHRISTINA Not available 2 11:57:14 Patient TargetsNo targets recorded. Patient Instructions Encounter Date Encounter Id Patient Instructions Last Modified By Organization Details Last Modified Time 05/30/2022 [id number] learning about type 1 diabetes kaurey Not available 05/30/2022 11:57:01 type 1 diabetes: care instructions jnanney Not available 05/30/2022 11:57:01 12/18/2022 [id number] A healthy lifestyle: care instructions jnanney Not available 12/18/2022 14:46:15 learning about type 1 diabetes jnanney Not available 12/18/2022 14:46:15 type 1 diabetes: care instructions jnanney Not available 12/18/2022 14:46:15 04/16/2023 [id number] A healthy lifestyle: care instructions jnanney Not available 04/16/2023 15:45:59 learning about type 1 diabetes jnanney Not available 04/16/2023 15:45:59 type 1 diabetes: care instructions jnanney Not available 04/16/2023 15:45:59 09/03/2024 [id number] learning about type 1 diabetes jnanney Not available 09/03/2024 12:01:53 type 1 diabetes: care instructions jnanney Not available 09/03/2024 12:01:53 01/06/2025 [id number] learning about type 1 diabetes jnanney Not available 01/06/2025 15:18:17 type 1 diabetes: care instructions jnanney Not available 01/06/2025 15:18:17 A healthy lifestyle: care instructions jnanney Not available 01/06/2025 15:19:09 Reason for Referral None Reported. Results Created Date Observation Date Name Description Value Unit Range Abnormal Flag Note LastModifiedBy Organization Detail LastModifiedTime 04/16/2004/16/2023 urina lysis , dipst ick Leukocytes Negati ve Not Available In-Office Order Internal Use Only DO Not Attach Compendium DO Not Attach Compendium, Do Not Delete/merge, [id number] 04/16/2023 15:37:08 04/16/2004/16/2023 urina lysis , dipst ick Nitrite negati ve Not Available In-Office Order Internal Use Only DO Not Attach Compendium DO Not Attach Compendium, Do Not Delete/merge, 04/16/2023 15:37:08 04/16/2004/16/2023 urina lysis , dipst ick Urobilinogen .2 Not Available In-Of fice Order Internal Use Only DO Not Attach Compendium DO Not Attach Compendium, Do Not Delete/merge, [id number] 04/16/2023 15:37:08 04/16/2004/16/2023 urina lysis , dipst ick Protein Negati ve Not Available In-Office Order Internal Use Only DO Not Attach Compendium DO Not Attach Compendium, Do Not Delete/merge, [id number] 04/16/2023 15:37:08 04/16/2004/16/2023 urina lysis , dipst ick pH 5.5 Not Available In-Office Order Internal Use Only DO Not Attach Compendium DO Not Attach Compendium, Do Not Delete/merge, [facility] 04/16/2023 15:37:08 04/16/20 23 04/16/2023 urina lysis , dipst ick Blood Negati ve Not Available In-Office Order Internal Use Only DO Not Attach Compendium DO Not Attach Compendium, Do Not Delete/merge, [facility] 04/16/2023 15:37:08 04/16/20 23 04/16/2023 urina lysis , dipst ick Specific [place] 1.015 Not Available In-Off ice Order Internal Use Only DO Not Attach Compendium DO Not Attach Compendium, Do Not Delete/merge, [facility] 04/16/2023 15:37:08 04/16/20 23 04/16/2023 urina lysis , dipst ick Ketone Negati ve Not Available In-Office Order Internal Use Only DO Not Attach Compendium DO Not Attach Compendium, Do Not Delete/merge, [facility] 04/16/2023 15:37:08 04/16/20 23 04/16/2023 urina lysis , dipst ick Bilirubin Negati ve Not Available In-Office Order Internal Use Only DO Not Attach Compendium DO Not Attach Compendium, Do Not Delete/merge, [facility] 04/16/2023 15:37:08 04/16/20 23 04/16/2023 urina lysis , dipst ick Glucose 1000 Not Available In-Office Order Internal Use Only DO Not Attach Compendium DO Not Attach Compendium, Do Not Delete/merge, [id number] 04/16/2023 15:37:08 04/16/20 23 04/16/2023 urina lysis , dipst ick Appearance Clear Not Available In-Offi ce Order Internal Use Only DO Not Attach Compendium DO Not Attach Compendium, Do Not Delete/merge, [facility] 04/16/2023 15:37:08 04/16/20 23 04/16/2023 urina lysis , dipst ick Color Pale Yellow Not Available In-Office Order Internal Use Only DO Not Attach Compendium DO Not Attach Compendium, Do Not Delete/merge, [id number] 04/16/2023 15:37:08 12/07/19 24 12/07/2023 Gluco se [Mass /volu me] in Blood glucose [mass/volume ] in blood 453 mg/dL low: 70mg/d Lhigh: 99mg/d L critical high GLUCO SE,BE DSIDE POCT 453 (HH) 70 - 99 mg/dL 12/06 4:54 PM [facility] Not Available Not Available 12/03/2024 [...] mmol/ L 12/06 2:51 PM CDT [facility] Not Available Not Available 12/03/2024 11:58:14 12/07/19 24 12/07/2023 Basic metab olic 1999 panel - Serum or Plasm a potassium [moles/volum e] in serum or plasma 3.2 mmol/ L low: 3.5mmo l/Lhig h: 5.1mmo l/L low POTAS SIUM 3.2 (L) 3.5 - 5.1 mmol/ L 12/06 2:51 PM CDT [facility] Not Available Not Available 12/03/2024 11:58:14 12/07/19 24 12/07/2023 Basic metab olic 1999 panel - Serum or Plasm a chloride [moles/volum e] in serum or plasma 86 mmol/ L low: 98mmol /Lhigh : 107mmo l/L low CHLOR JULIENNE 86 (L) 98 - 107 mmol/ L 12/06 2:51 PM CDT [facility] Not Available Not Available 12/03/2024 11:58:14 12/07/19 24 12/07/2023 Basic metab olic 2000 panel - Serum or Plasm a carbon dioxide, total [moles/volum e] in serum or plasma 23 mmol/ L low: 22mmol /Lhigh : 30mmol /L CO2, VENOU S 23 22 - 30 mmol/ L 12/06 2:51 PM CDT [facility] Not Available Not Available 12/03/2024 11:58:14 12/07/19 24 12/07/2023 Basic metab olic 2000 panel - Serum or Plasm a anion gap in serum or plasma by calculation 27.2 mmol/ L high: 18mmol /L high ANION GAP 27.2 (H) <18.0 mmol/ L 12/06 2:51 PM CDT [facility] Not Available Not Available 12/03/2024 11:58:14 12/07/19 24 12/07/2023 Basic metab olic 1999 panel - Serum or Plasm a glucose [mass/volume ] in serum or plasma 168 mg/dL low: 70mg/d Lhigh: 99mg/d L high GLUCO SE 168 (H) 70 - 99 mg/dL 12/06 2:51 PM CDT [facility] Not Available Not Available 12/03/2024 11:58:14 12/07/19 24 12/07/2023 Basic metab olic 2000 panel - Serum or Plasm a urea nitrogen [mass/volume ] in serum or plasma 47 mg/dL low: 9mg/dL high: 21mg/d L high BUN 47 (H) 9 - 21 mg/dL 12/06 2:51 PM CD[facility] Not Available Not Available 12/03/2024 11:58:14 12/07/19 24 12/07/2023 Basic metab olic 2000 panel - Serum or Plasm a creatinine [mass/volume ] in serum or plasma 2.42 mg/dL low: 0.7mg/ dLhigh : 1.3mg/ dL high CREAT ININE , BLOOD 2.42 (H) 0.70 - 1.30 mg/dL 12/06 2:51 PM CDT [facility] [facility] LAB Not Available Not Available 12/03/2024 11:58:14 12/07/19 24 12/07/2023 [facility] 1999 panel - Serum or Plasm a urea nitrogen/cre atinine [mass ratio] in serum or plasma 19 text: 12 - 20 ratio BUN/C REATI NINE RATIO 19 12 - 20 ratio 12/06 2:51 PM CDT [facility] [facility] Not Available Not Available 12/03/2024 11:58:14 12/07/19 24 12/07/2023 [facility] 1999 panel - Serum or Plasm a calcium [mass/volume ] in serum or plasma 8.6 mg/dL low: 8.7mg/ dLhigh : 10.5mg /dL low CALCI UM 8.6 (L) 8.7 - 10.5 mg/dL 12/06 2:51 PM CDT [facility] [employer] [facility] Not Available Not Available 12/03/2024 11:58:14 12/07/19 24 12/07/2023 [facility] 1999 panel - Serum or Plasm a glomerular filtration rate [volume rate/area] in serum, plasma or blood by creatinine-b ased formula (MDRD)/1.73 sq M among non black population 37 low: 60 low GFR, ESTIM ATED 37 (L) >=60 12/06 2:51 PM CDT [facility] Not Available Not Available 12/03/2024 11:58:14 12/07/19 24 12/07/2023 [facility] 1999 panel - Serum or Plasm a glomerular filtration rate [volume rate/area] in serum, plasma or blood by creatinine-b ased formula (MDRD)/1.73 sq M among black population 40 low: 60 low GFR, EST. AFRIC AN 40 (L) >=60 12/06 2:51 PM CDT [facility] Not Available Not Available 12/03/2024 11:58:14 12/07/19 24 12/07/2023 Basic metab olic 2000 panel - Serum or Plasm a glomerular filtration rate [volume rate/area] in serum, plasma or blood by creatinine-b ased formula (MDRD)/1.73 sq M among non black population 33 low: 60 low GFR, EST. NONAF RICAN 33 (L) >=60 12/06 2:51 PM CDT [facility] Not Available [...] S room air 12/06 12:22 PM CDT [facility] Not Available Not Available 12/03/2024 11:58:14 12/07/19 24 12/07/2023 Gas panel - Venou s blood pH of venous blood 7.55 low: 7.34hi gh: 7.43 high PH VENOU S 7.55 (H) 7.34 - 7.43 12/06 12:22 PM CDT [facility] Not Available Not Available 12/03/2024 11:58:14 12/07/19 24 12/07/2023 Gas panel - Venou s blood carbon dioxide [partial pressure] in venous blood 29 text: 41 - 51 mmHg low PCO2 (VENO US) 29 (L) 41 - 51 mmHg 12/06 12:22 PM CDT [facility] Not Available Not Available 12/03/2024 11:58:14 12/07/19 24 12/07/2023 Gas panel - Venou s blood oxygen [partial pressure] in venous blood 55 text: 30 - 50 mmHg high PO2 VENOU S 55 (H) 30 - 50 mmHg 12/06 12:22 PM [facility] Not [facility] Not Available 12/03/2024 11:58:14 12/07/19 24 12/07/2023 Gas panel - Venou s blood oxygen saturation in venous blood 85 % low: 60%hig h: 85% O2 SAT JOHNNIE, MEASU RED 85 60 - 85 % 12/06 12:22 PM CDT [facility] Not Available Not Available 12/03/2024 11:58:14 12/07/19 24 12/07/2023 Gas panel - Venou s blood bicarbonate [moles/volum e] in blood 25.8 mmol/ L low: 22mmol /Lhigh : 26mmol /L BICAR BONAT E 25.8 22.0 - 26.0 mmol/ L 12/06 12:22 PM CDT [facility] Not Available Not Available 12/03/2024 11:58:14 12/07/19 24 12/07/2023 Gas panel - Venou s blood base venous 4.7 mmol/ L low: -2mmol /Lhigh : 3mmol/ L high BASE VENOU S 4.7 (H) -2.0 - 3.0 mmol/ L 12/06 12:22 PM CDT [facility] Not Available Not Available 12/03/2024 11:58:14 12/07/19 24 12/07/2023 Gas panel - Venou s blood carboxyhemog lobin/hemogl obin.total in blood 1.2 % low: 0%high : 5% CARBO XYHEM OGLOB IN 1.2 0.0 - 5.0 % 12/06 12:22 PM CDT [facility] Not Available Not Available [...] nt. Not Available Not Available 12/03/2024 11:58:14 12/07/19 [...] 10(3) /mcL 12/06 11:38 AM CDT [facility] Not Available Not Available 12/03/2024 11:58:14 12/07/19 24 12/07/2023 CBC W Auto Diffe renti al panel - Blood erythrocytes [#/volume] in blood by automated count 5.47 text: 4.40 - 5.80 10(6)/ mcL RBC 5.47 4.40 - 5.80 10(6) /mcL 12/06 11:38 AM CDT [facility] Not Available Not Available 12/03/2024 11:58:14 12/07/19 24 12/07/2023 CBC W Auto Diffe renti al panel - Blood hemoglobin [mass/volume ] in blood 16.2 g/dL low: 13g/dL high: 16.5g/ dL HEMOG LOBIN (HGB) 16.2 13.0 - 16.5 g/dL 12/06 11:38 AM CDT [facility] Not Available Not Available 12/03/2024 11:58:14 12/07/19 24 12/07/2023 CBC W Auto Diffe renti al panel - Blood hematocrit [volume fraction] of blood by automated count 45.5 % low: 38%hig h: 50% HEMAT OCRIT (HCT) 45.5 38.0 - 50.0 % 12/06 11:38 AM CDT [facility] Not Available Not Available 12/03/2024 11:58:14 12/07/19 24 12/07/2023 CBC W Auto Diffe renti al panel - Blood MCV [entitic mean volume] in red blood cells by automated count 83.2 fL low: 82fLhi gh: 96fL MCV 83.2 82.0 - 96.0 fL 12/06 11:38 AM CDT [facility] Not Available Not Available 12/03/2024 11:58:14 12/07/19 24 12/07/2023 CBC W Auto Diffe renti al panel - Blood MCH [entitic mass] by automated count 29.6 pg low: 26pghi gh: 32pg MCH 29.6 26.0 - 32.0 pg 12/06 11:38 AM CDT [facility] Not Available Not Available 12/03/2024 11:58:14 12/07/19 24 12/07/2023 CBC W Auto Diffe renti al panel - Blood MCHC [entitic mass/volume] in red blood cells by automated count 35.6 g/dL low: 31g/dL high: 36g/dL MCHC 35.6 31.0 - 36.0 g/dL 12/06 11:38 AM CDT [facility] Not Available Not Available 12/03/2024 11:58:14 12/07/19 24 12/07/2023 CBC W Auto Diffe renti al panel - Blood platelets [#/volume] in blood 464 text: 140 - 440 10(3)/ mcL high PLATE LET COUNT 464 (H) 140 - 440 10(3) /mcL 12/06 11:38 AM CDT [facility] Not Available Not Available 12/03/2024 11:58:14 12/07/19 24 12/07/2023 CBC W Auto Diffe renti al panel - Blood erythrocyte [distwidth] in red blood cells by automated count 13.2 % low: 11.8%h igh: 15.5% RDW 13.2 11.8 - 15.5 % 12/06 11:38 AM CDT [facility] Not Available Not Available 12/03/2024 11:58:14 12/07/19 24 12/07/2023 CBC W Auto Diffe renti al panel - Blood platelet [entitic mean volume] in blood by automated count 10 fL low: 8fLhig h: 12.6fL MPV 10.0 8.0 - 12.6 fL 12/06 11:38 AM CDT [facility] Not Available Not Available 12/03/2024 11:58:14 12/07/19 24 12/07/2023 CBC W Auto Diffe renti al panel - Blood neutrophils/ leukocytes in blood by automated count 83.4 % low: 40%hig h: 68% high NEUTR OPHIL S 83.4 (H) 40.0 - 68.0 % 12/06 11:38 AM CDT [facility] Not Available Not Available 12/03/2024 11:58:14 12/07/19 24 12/07/2023 CBC W Auto Diffe renti al panel - Blood lymphocytes/ leukocytes in blood by automated count 7.3 % low: 19%hig h: 49% low LYMPH OCYTE S 7.3 (L) 19.0 - 49.0 % 12/06 11:38 AM CDT [facility] Not Available Not Available 12/03/2024 11:58:14 12/07/19 24 12/07/2023 CBC W Auto Diffe renti al panel - Blood monocytes/le ukocytes in blood by automated count 9.2 % low: 3%high : 13% MONOC YTES 9.2 3.0 - 13.0 % 12/06 11:38 AM CDT [facility] Not Available Not Available 12/03/2024 11:58:14 12/07/19 24 12/07/2023 CBC W Auto Diffe renti al panel - Blood eosinophils/ leukocytes in blood by automated count 0 % low: 0%high : 8% EOSIN OPHIL S 0.0 0.0 - 8.0 % 12/06 11:38 AM CDT [facility] Not Available Not Available 12/03/2024 11:58:14 12/07/19 24 12/07/2023 CBC W Auto Diffe renti al panel - Blood basophils/le ukocytes in blood by automated count 0.1 % low: 0%high : 1% BASOP HILS 0.1 0.0 - 1.0 % 12/06 11:38 AM CDT [facility] Not Available Not Available 12/03/2024 11:58:14 12/07/19 24 12/07/2023 CBC W Auto Diffe renti al panel - Blood neutrophils [#/volume] in blood by automated count 17.42 text: 1.40 - 5.30 10(3)/ mcL high ABSOL KOKHANOK NEUTR OPHIL S 17.42 (H) 1.40 - 5.30 10(3) /mcL 12/06 11:38 AM CDT [facility] Not Available Not Available 12/03/2024 11:58:14 12/07/19 24 12/07/2023 CBC W Auto Diffe renti al panel - Blood lymphocytes [#/volume] in blood by automated count 1.53 text: 0.90 - 3.30 10(3)/ mcL ABSOL KOKHANOK LYMPH OCYTE S 1.53 0.90 - 3.30 10(3) /mcL 12/06 11:38 AM CDT [facility] Not Available Not Available 12/03/2024 11:58:14 12/07/19 24 12/07/2023 CBC W Auto Diffe renti al panel - Blood monocytes [#/volume] in blood by automated count 1.92 text: 0.10 - 0.90 10(3)/ mcL high ABSOL KOKHANOK MONOC YTES 1.92 (H) 0.10 - 0.90 10(3) /mcL 12/06 11:38 AM CDT [facility] Not Available Not Available 12/03/2024 11:58:14 12/07/19 24 12/07/2023 CBC W Auto Diffe renti al panel - Blood eosinophils [#/volume] in blood by automated count 0 text: 0.00 - 0.50 10(3)/ mcL ABSOL KOKHANOK EOSIN OPHIL 0.00 0.00 - 0.50 10(3) /mcL 12/06 11:38 AM CDT [facility] Not Available Not Available 12/03/2024 11:58:14 12/07/19 24 12/07/2023 CBC W Auto Diffe renti al panel - Blood basophils [#/volume] in blood by automated count 0.03 text: 0.00 - 0.10 10(3)/ mcL ABSOL KOKHANOK BASOP HILS 0.03 0.00 - 0.10 10(3) /mcL 12/06 11:38 AM CDT [facility] Not Available Not Available 12/03/2024 11:58:14 12/07/19 24 12/07/2023 CBC W Auto Diffe renti al panel - Blood nucleated erythrocytes /leukocytes [ratio] in blood 0 NRBC PER 100 WBC 0 12/06 11:38 AM CDT [facility] Not Available Not Available 12/03/2024 11:58:14 [...] (A) Negat yen 12/06 11:51 AM CDT [facility] Not Available Not Available 12/03/2024 11:58:14 [...] - 78 U/L 12/06 11:59 AM CDT [facility] Not Available Not Available 12/03/2024 [...] 145 mmol/ L 12/06 12:06 PM CDT [facility] Not Available Not Available 09/03/2024 11:01:15 12/07/19 24 12/07/2023 Compr ehens yen metab olic 1999 panel - Serum or Plasm a potassium [moles/volum e] in serum or plasma 3.4 mmol/ L low: 3.5mmo l/Lhig h: 5.1mmo l/L low POTAS SIUM 3.4 (L) 3.5 - 5.1 mmol/ L 12/06 12:06 PM CDT [facility] Not Available Not Available 09/03/2024 11:01:15 12/07/19 24 12/07/2023 Compr ehens yen metab olic 1999 panel - Serum or Plasm a chloride [moles/volum e] in serum or plasma 77 mmol/ L low: 98mmol /Lhigh : 107mmo l/L low CHLOR JULIENNE 77 (L) 98 - 107 mmol/ L 12/06 12:06 PM CDT [facility] Not Available Not Available 09/03/2024 11:01:15 12/07/19 24 12/07/2023 Compr ehens yen metab olic 1999 panel - Serum or Plasm a carbon dioxide, total [moles/volum e] in serum or plasma 23 mmol/ L low: 22mmol /Lhigh : 30mmol /L CO2, VENOU S 23 22 - 30 mmol/ L 12/06 12:06 PM CDT [facility] Not Available Not Available 09/03/2024 11:01:15 12/07/19 24 12/07/2023 Compr ehens yen metab olic 1999 panel - Serum or Plasm a anion gap in serum or plasma 33.4 mmol/ L high: 18mmol /L high ANION GAP 33.4 (H) <18.0 mmol/ L 12/06 12:06 PM CDT [facility] Not Available Not Available 09/03/2024 11:01:15 12/07/19 24 12/07/2023 Compr ehens yen metab ic 1999 panel - Serum or Plasm a glucose [mass/volume ] in serum or plasma 377 mg/dL low: 70mg/d Lhigh: 99mg/d L high GLUCO SE 377 (H) 70 - 99 mg/dL 12/06 12:06 PM CDT [facility] Not Available Not Available 09/03/2024 11:01:15 12/07/19 24 12/07/2023 Compr ehens yen metab olic 1999 panel - Serum or Plasm a urea nitrogen [mass/volume ] in serum or plasma 48 mg/dL low: 9mg/dL high: 21mg/d L high BUN 48 (H) 9 - 21 mg/dL 12/06 12:06 PM CDT [facility] Not Available Not Available 09/03/2024 11:01:15 12/07/19 24 12/07/2023 Compr ehens yen metab olic 1999 panel - Serum or Plasm a creatinine [mass/volume ] in serum or plasma 2.8 mg/dL low: 0.7mg/ dLhigh : 1.3mg/ dL high CREAT ININE , BLOOD 2.80 (H) 0.70 - 1.30 mg/dL 12/06 12:06 PM CDT [facility] Not Available Not Available 09/03/2024 11:01:15 12/07/19 24 12/07/2023 Compr ehens yen metab olic 1999 panel - Serum or Plasm a urea nitrogen/cre atinine [mass ratio] in serum or plasma 17 text: 12 - 20 ratio BUN/C REATI NINE RATIO 17 12 - 20 ratio 12/06 12:06 PM CDT [facility] Not Available Not Available 09/03/2024 11:01:15 12/07/19 24 12/07/2023 Compr ehens yen metab olic 1999 panel - Serum or Plasm a protein [mass/volume ] in serum or plasma 8.4 g/dL low: 6.3g/d Lhigh: 8.2g/d L high TOTAL PROTE IN 8.4 (H) 6.3 - 8.2 g/dL 12/06 12:06 PM CDT [facility] Not Available Not Available 09/03/2024 11:01:15 12/07/19 24 12/07/2023 Compr ehens yen metab olic 1999 panel - Serum or Plasm a albumin [mass/volume ] in serum or plasma 4.7 g/dL low: 3.5g/d Lhigh: 5g/dL ALBUM IN 4.7 3.5 - 5.0 g/dL 12/06 12:06 PM CDT [facility] Not Available Not Available 09/03/2024 11:01:15 12/07/19 24 12/07/2023 Compr ehens yen metab olic 1999 panel - Serum or Plasm a albumin/glob ulin [mass ratio] in serum or plasma 1.3 low: 1high: 2.2 A/G RATIO 1.3 1.0 - 2.2 12/06 12:06 PM CDT [facility] Not Available Not Available 09/03/2024 11:01:15 12/07/19 24 12/07/2023 Compr ehens yen metab olic 1999 panel - Serum or Plasm a calcium [mass/volume ] in serum or plasma 9.3 mg/dL low: 8.7mg/ dLhigh : 10.5mg /dL CALCI UM 9.3 8.7 - 10.5 mg/dL 12/06 12:06 PM CDT [facility] [employer] R [facility] Not Available Not Available 09/03/2024 11:01:15 12/07/19 24 12/07/2023 Compr ens yen metab olic 1999 panel - Serum or Plasm a bilirubin.to su [mass/volume ] in serum or plasma 1.1 mg/dL low: 0.2mg/ dLhigh : 1.2mg/ dL T BILI 1.1 0.2 - 1.2 mg/dL 12/06 12:06 PM CDT [facility] [employer] [facility] Not Available Not Available 09/03/2024 11:01:15 12/07/19 24 12/07/2023 Compr ehens yen metab olic 1999 panel - Serum or Plasm a aspartate aminotransfe rase [enzymatic activity/vol ume] in serum or plasma 32 U/L low: 5U/Lhi gh: 34U/L SGOT (AST) 32 5 - 34 U/L 12/06 12:06 PM CDT [facility] [employer] [facility] Not Available Not Available 09/03/2024 11:01:15 12/07/19 24 12/07/2023 Compr ehens yen metab olic 1999 panel - Serum or Plasm a alanine aminotransfe rase [enzymatic activity/vol ume] in serum or plasma 41 U/L low: 0U/Lhi gh: 55U/L SGPT (ALT) 41 0 - 55 U/L 12/06 12:06 PM CDT [facility] [employer] R [facility] Not Available Not Available 09/03/2024 11:01:15 12/07/19 24 12/07/2023 Compr ehens yen metab olic 1999 panel - Serum or Plasm a alkaline phosphatase [enzymatic activity/vol ume] in serum or plasma 115 U/L low: 40U/Lh igh: 150U/L ALKAL INE PHOSP HATAS E 115 40 - 150 U/L 12/06 12:06 PM [facility]T [facility] Not Available Not Available 09/03/2024 11:01:15 12/07/19 24 12/07/2023 Compr ehens yen metab olic 2000 panel - Serum or Plasm a glomerular filtration rate/1.73 sq M.predicted among non-blacks [volume rate/area] in serum, plasma or blood by creatinine-b ased formula (MDRD) 31 low: 60 low GFR, ESTIM ATED 31 (L) >=60 12/06 12:06 PM CDT [facility] Not Available Not Available 09/03/2024 11:01:15 12/07/19 24 12/07/2023 Compr ehens yen metab olic 2000 panel - Serum or Plasm a glomerular filtration rate/1.73 sq M.predicted among blacks [volume rate/area] in serum, plasma or blood by creatinine-b ased formula (MDRD) 34 low: 60 low GFR, EST. AFRIC AN 34 (L) >=60 12/06 12:06 PM CDT [facility] Not Available Not Available 09/03/2024 11:01:15 12/07/19 24 12/07/2023 Compr ehens yen metab olic 2000 panel - Serum or Plasm a glomerular filtration rate/1.73 sq M.predicted among non-blacks [volume rate/area] in serum, plasma or blood by creatinine-b ased formula (MDRD) 28 low: 60 low GFR, EST. NONAF RICAN 28 (L) >=60 12/06 12:06 PM CDT [facility] Not Available [...] mmol/ L 04/05 9:56 PM CDT [facility] Device R LAB Not Available Not Available 12/03/2024 [...] yen, Error 04/05 10:20 PM CDT [facility] Device[facility] R LAB Not Available Not Available 12/03/2024 [...] yen Negat yen 04/05 10:20 PM CDT [facility] Not Available Not Available 12/03/2024 [...] Negat yen 04/05 10:20 PM CDT [facility] Not Available [...] Detec leodan) 04/05 10:20 PM CDT [facility] Able DeviceE R LAB Not Available Not Available 12/03/2024 [...] an Emerge ncy Use Author farhan ng (LEXIEA) for use by lucy goldberg under the CLIA that meet the requir ements to perfor m modera te, high or waived comple xity tests. Author ized Fact Sheets about this test for provid ers and kelsi ts are availa ble [...] 04/05 10:52 PM CDT [facility] Not Available Not Available 12/03/2024 11:56:34 [...] RESUL T 04/10 6:01 PM CDT [facility] Not Available [...] Negat yen 04/05 4:57 PM CDT [facility] Not Available [...] 99 mg/dL 04/06 6:23 AM CDT [facility] Not Available [...] 12.00 10(3) /mcL 04/06 5:28 AM CDT [facility] Not Available Not Available 12/03/2024 11:56:35 04/06/20 24 04/06/2024 CBC W Auto Diffe renti al panel - Blood erythrocytes [#/volume] in blood by automated count 4.18 text: 4.40 - 5.80 10(6)/ mcL low RBC 4.18 (L) 4.40 - 5.80 10(6) /mcL 04/06 5:28 AM CDT [facility] Device[facility] R [facility] Not Available Not Available 12/03/2024 11:56:35 04/06/20 24 04/06/2024 CBC W Auto Diffe renti al panel - Blood hemoglobin [mass/volume ] in blood 12.1 g/dL low: 13g/dL high: 16.5g/ dL low HEMOG LOBIN (HGB) 12.1 (L) 13.0 - 16.5 g/dL 04/06 5:28 AM CDT [facility] R [facility] Not Available Not Available 12/03/2024 11:56:35 04/06/20 24 04/06/2024 CBC W Auto Diffe renti al panel - Blood hematocrit [volume fraction] of blood by automated count 35.8 % low: 38%hig h: 50% low HEMAT OCRIT (HCT) 35.8 (L) 38.0 - 50.0 % 04/06 5:28 AM CDT [facility] R [facility] Not Available Not Available 12/03/2024 11:56:35 04/06/20 24 04/06/2024 CBC W Auto Diffe renti al panel - Blood MCV [entitic mean volume] in red blood cells by automated count 85.6 fL low: 82fLhi gh: 96fL MCV 85.6 82.0 - 96.0 fL 04/06 5:28 AM CDT [facility] Not Available Not Available 12/03/2024 11:56:35 04/06/20 24 04/06/2024 CBC W Auto Diffe renti al panel - Blood MCH [entitic mass] by automated count 28.9 pg low: 26pghi gh: 32pg MCH 28.9 26.0 - 32.0 pg 04/06 5:28 AM CDT [facility] Not Available Not Available 12/03/2024 11:56:35 04/06/20 24 04/06/2024 CBC W Auto Diffe renti al panel - Blood MCHC [entitic mass/volume] in red blood cells by automated count 33.8 g/dL low: 31g/dL high: 36g/dL MCHC 33.8 31.0 - 36.0 g/dL 04/06 5:28 AM [facility] Not Available Not Available 12/03/2024 11:56:35 04/06/20 24 04/06/2024 CBC W Auto Diffe ramanti al panel - Blood platelets [#/volume] in blood 287 text: 140 - 440 10(3)/ mcL PLATE LET COUNT 287 140 - 440 10(3) /mcL 04/06 5:28 AM CD[facility] Not Available Not Available 12/03/2024 11:56:35 04/06/20 24 04/06/2024 CBC W Auto Diffe renti al panel - Blood erythrocyte [distwidth] in red blood cells by automated count 13.7 % low: 11.8%h igh: 15.5% RDW 13.7 11.8 - 15.5 % 04/06 5:28 AM CDT [facility] Not Available Not Available 12/03/2024 11:56:35 04/06/20 24 04/06/2024 CBC W Auto Diffe renti al panel - Blood platelet [entitic mean volume] in blood by automated count 10.7 fL low: 8fLhig h: 12.6fL MPV 10.7 8.0 - 12.6 fL 04/06 5:28 AM CDT [facility] Not Available Not Available 12/03/2024 11:56:35 04/06/20 24 04/06/2024 CBC W Auto Diffe renti al panel - Blood nucleated erythrocytes /leukocytes [ratio] in blood 0 NRBC PER 100 WBC 0 04/06 5:28 AM CDT [facility] Not Available Not Available 12/03/2024 11:56:35 04/06/20 24 04/06/2024 CBC W Auto Diffe renti al panel - Blood interpretati on and review of laboratory results Abnorm al Not Available Not Available 11:56:35 04/06/20 24 04/06/2024 Basic metab olic 1999 panel - Serum or Plasm a sodium [moles/volum e] in serum or plasma 136 mmol/ L low: 136mmo l/Lhig h: 145mmo l/L SODIU M 136 136 - 145 mmol/ L 04/06 5:36 AM CDT [facility] Not Available Not Available 12/03/2024 11:56:34 04/06/20 24 04/06/2024 Basic metab olic 1999 panel - Serum or Plasm a potassium [moles/volum e] in serum or plasma 3.5 mmol/ L low: 3.5mmo l/Lhig h: 5.1mmo l/L POTAS SIUM 3.5 3.5 - 5.1 mmol/ L 04/06 5:36 AM CDT [facility] Not Available Not Available 12/03/2024 11:56:34 04/06/20 24 04/06/2024 Basic metab olic 1999 panel - Serum or Plasm a chloride [moles/volum e] in serum or plasma 95 mmol/ L low: 98mmol /Lhigh : 107mmo l/L low CHLOR JULIENNE 95 (L) 98 - 107 mmol/ L 04/06 5:36 AM CDT [facility] Not Available Not Available 12/03/2024 11:56:34 04/06/20 24 04/06/2024 Basic metab olic 1999 panel - Serum or Plasm a carbon dioxide, total [moles/volum e] in serum or plasma 25 mmol/ L low: 22mmol /Lhigh : 30mmol /L CO2, VENOU S 25 22 - 30 mmol/ L 04/06 5:36 AM CDT [facility] Not Available Not Available 12/03/2024 11:56:34 04/06/20 24 04/06/2024 Basic metab olic 1999 panel - Serum or Plasm a anion gap in serum or plasma by calculation 19.5 mmol/ L high: 18mmol /L high ANION GAP 19.5 (H) <18.0 mmol/ L 04/06 5:36 AM CDT [facility] Not Available Not Available 12/03/2024 11:56:34 04/06/20 24 04/06/2024 Basic metab olic 1999 panel - Serum or Plasm a glucose [mass/volume ] in serum or plasma 257 mg/dL low: 70mg/d Lhigh: 99mg/d L high GLUCO SE 257 (H) 70 - 99 mg/dL 04/06 5:36 AM CDT [facility] Not Available Not Available 12/03/2024 11:56:34 04/06/20 24 04/06/2024 Basic metab olic 1999 panel - Serum or Plasm a urea nitrogen [mass/volume ] in serum or plasma 31 mg/dL low: 9mg/dL high: 21mg/d L high BUN 31 (H) 9 - 21 mg/dL 04/06 5:36 AM CDT [facility] Not Available Not Available 12/03/2024 11:56:34 04/06/20 24 04/06/2024 Basic metab olic 1999 panel - Serum or Plasm a creatinine [mass/volume ] in serum or plasma 1.8 mg/dL low: 0.7mg/ dLhigh : 1.3mg/ dL high CREAT ININE , BLOOD 1.80 (H) 0.70 - 1.30 mg/dL 04/06 5:36 AM CDT [facility] Not Available Not Available 12/03/2024 11:56:34 04/06/20 24 04/06/2024 Basic metab olic 1999 panel - Serum or Plasm a urea nitrogen/cre atinine [mass ratio] in serum or plasma 17 text: 12 - 20 ratio BUN/C REATI NINE RATIO 17 12 - 20 ratio 04/06 5:36 AM CDT [facility] [employer] R LAB Not Available Not Available 12/03/2024 11:56:34 04/06/20 24 04/06/2024 Basic metab olic 1999 panel - Serum or Plasm a calcium [mass/volume ] in serum or plasma 7.6 mg/dL low: 8.7mg/ dLhigh : 10.5mg /dL low CALCI UM 7.6 (L) 8.7 - 10.5 mg/dL 04/06 5:36 AM CDT [facility] PlanGE R LAB Not Available Not Available 12/03/2024 11:56:34 04/06/20 24 04/06/2024 Basic metab olic 1999 panel - Serum or Plasm a glomerular filtration rate [volume rate/area] in serum, plasma or blood by creatinine-b ased formula (MDRD)/1.73 sq M among non black population 53 low: 60 low GFR, ESTIM ATED 53 (L) >=60 04/06 5:36 AM CDT [facility] PlanGE R LAB Not Available Not Available 12/03/2024 11:56:34 04/06/20 24 04/06/2024 Basic metab olic 1999 panel - Serum or Plasm a glomerular filtration rate [volume rate/area] in serum, plasma or blood by creatinine-b ased formula (MDRD)/1.73 sq M among black population 56 low: 60 low GFR, EST. AFRIC AN 56 (L) >=60 04/06 5:36 AM CDT [facility] PlanGE R LAB Not Available Not Available 12/03/2024 11:56:34 04/06/20 24 04/06/2024 Basic metab olic 2000 panel - Serum or Plasm a glomerular filtration rate [volume rate/area] in serum, plasma or blood by creatinine-b ased formula (MDRD)/1.73 sq M among non black population 47 low: 60 low GFR, EST. NONAF RICAN 47 (L) >=60 04/06 5:36 AM CDT [facility] [employer] R LAB Not Available Not Available 12/03/2024 [...] 4.5 mg/dL 04/06 5:36 AM CDT [facility] Able DeviceE R LAB Not Available Not Available 12/03/2024 [...] - 2.6 mg/dL 04/06 5:36 AM CDT [facility] DeviceE R LAB Not Available Not Available 12/03/2024 11:56:34 04/06/20 24 04/06/2024 Magne sium [Mass /volu me] in Serum or Plasm a interpretati on and review of laboratory results Normal Not Available Not Available 11/19 11:56:34 04/06/20 24 04/06/2024 Gas panel - Venou s blood oxygen gas flow oxygen delivery system room air O2 STATU S room air 04/06 2:30 AM CDT [facility] Not Available Not Available 12/03/2024 11:56:34 04/06/20 24 04/06/2024 Gas panel - Venou s blood pH of venous blood 7.56 low: 7.34hi gh: 7.43 high PH VENOU S 7.56 (H) 7.34 - 7.43 04/06 2:30 AM CDT [facility] Not Available Not Available 12/03/2024 11:56:34 04/06/20 24 04/06/2024 Gas panel - Venou s blood carbon dioxide [partial pressure] in venous blood 36 text: 41 - 51 mmHg low PCO2 (VENO US) 36 (L) 41 - 51 mmHg 04/06 2:30 AM CDT [facility] Not Available Not Available 12/03/2024 11:56:34 04/06/20 24 04/06/2024 Gas panel - Venou s blood oxygen [partial pressure] in venous blood 114 text: 30 - 50 mmHg high PO2 VENOU S 114 (H) 30 - 50 mmHg 04/06 2:30 AM CDT [facility] Not Available Not Available 12/03/2024 11:56:34 04/06/20 24 04/06/2024 Gas panel - Venou s blood oxygen saturation in venous blood 99 % low: 60%hig h: 85% high O2 SAT JOHNNIE, MEASU RED 99 (H) 60 - 85 % 04/06 2:30 AM CDT [facility] Not Available Not Available 12/03/2024 11:56:34 04/06/20 24 04/06/2024 Gas panel - Venou s blood bicarbonate [moles/volum e] in blood 32 mmol/ L low: 22mmol /Lhigh : 26mmol /L high BICAR BONAT E 32.0 (H) 22.0 - 26.0 mmol/ L 04/06 2:30 AM CDT [facility] Able Device R LAB Not Available Not Available 12/03/2024 11:56:34 04/06/20 24 04/06/2024 Gas panel - Venou s blood base venous 9.9 mmol/ L low: -2mmol /Lhigh : 3mmol/ L high BASE VENOU S 9.9 (H) -2.0 - 3.0 mmol/ L 04/06 2:30 AM CDT [facility]ble Device R LAB Not Available Not Available 12/03/2024 11:56:34 04/06/20 24 04/06/2024 Gas panel - Venou s blood carboxyhemog lobin/hemogl obin.total in blood 2.2 % low: 0%high : 5% CARBO XYHEM OGLOB IN 2.2 0.0 - 5.0 % 04/06 2:30 AM CDT [facility] R LAB Not Available Not Available 12/03/2024 11:56:34 04/06/20 24 04/06/2024 Gas panel - Venou s blood methemoglobi n/hemoglobin .total in blood 0.4 % low: 0%high : 1.5% METHE MOGLO BIN 0.4 0.0 - 1.5 % 04/06 2:30 AM CDT [facility] R LAB Not Available Not Available 12/03/2024 11:56:34 04/06/20 24 04/06/2024 Gas panel - Venou s blood Unknown Analyte Interp retati on - The usual approa ch to interp reting a VBG consis ts of using the venous measur ements to estima te the corres pondin g arteri al values , then using [...] - 7.43 04/05 11:28 PM CDT [facility] Not Available Not Available 12/03/2024 11:56:34 04/06/20 24 04/06/2024 pH of Venou s blood interpretati on and review of laboratory results Abnorm al Not Available Not Available 11:56:34 09/03/19 25 09/04/2024 LIPID PANEL cholesterol, total 256 mg/dL 100-19 9 above high normal Not Available [facility] & [address], [address], 09/04/2024 10:16:04 09/03/19 25 09/04/2024 LIPID PANEL triglyceride s 125 mg/dL 0-149 Not Available [address], [address], 09/04/2024 10:16:04 09/03/19 25 09/04/2024 LIPID PANEL HDL cholesterol 49 mg/dL >39 Not Available [address], [address], 09/04/2024 10:16:04 09/03/19 25 09/04/2024 LIPID PANEL VLDL cholesterol kiersten 23 mg/dL 5-40 Not Available [address], [address], 09/04/2024 10:16:04 09/03/19 25 09/04/2024 LIPID PANEL LDL chol calc (nih) 184 mg/dL 0-99 above high normal Not Available [address], [address], 09/04/2024 10:16:04 09/03/19 25 09/04/2024 COMP. METAB OLIC PANEL (14) glucose 108 mg/dL 70-99 above high normal Not Available [address], [address], 09/04/2024 10:16:06 09/03/19 25 09/04/2024 COMP. METAB OLIC PANEL (14) BUN 18 mg/dL 6-20 Not Available [address], [address], 09/04/2024 10:16:06 09/03/19 25 09/04/2024 COMP. METAB OLIC PANEL (14) creatinine 0.99 mg/dL 0.76-1 .27 Not Available [address], [address], 09/04/2024 10:16:06 09/03/19 25 09/04/2024 COMP. METAB OLIC PANEL (14) eGFR 108 mL/mi n/1.7 3 >59 Not Available [address], [address], 09/04/2024 10:16:06 09/03/19 25 09/04/2024 COMP. METAB OLIC PANEL (14) BUN/creatini ne ratio 18 9-20 Not Available [address], [address], 09/04/2024 10:16:06 09/03/19 25 09/04/2024 COMP. METAB OLIC PANEL (14) sodium 142 mmol/ L 134-14 4 Not Available [address], [address], 09/04/2024 10:16:06 09/03/19 25 09/04/2024 COMP. METAB OLIC PANEL (14) potassium 5.4 mmol/ L 3.5-5. 2 above high normal Not Available [address], [address], 09/04/2024 10:16:06 09/03/19 25 09/04/2024 COMP. METAB OLIC PANEL (14) chloride 104 mmol/ L 96-106 Not Available [address], [address], 09/04/2024 10:16:06 09/03/19 25 09/04/2024 COMP. METAB OLIC PANEL (14) carbon dioxide, total 23 mmol/ L 20-29 Not Available [address], [address], 09/04/2024 10:16:06 09/03/19 25 09/04/2024 COMP. METAB OLIC PANEL (14) calcium 9.8 mg/dL 8.7-10 .2 Not Available [address], [address], 09/04/2024 10:16:06 09/03/19 25 09/04/2024 COMP. METAB OLIC PANEL (14) protein, total 7.2 g/dL 6.0-8. 5 Not Available [address], [address], 09/04/2024 10:16:06 09/03/19 25 09/04/2024 COMP. METAB OLIC PANEL (14) albumin 4.6 g/dL 4.3-5. 2 Not Available [address], [address], 09/04/2024 10:16:06 09/03/19 25 09/04/2024 COMP. METAB OLIC PANEL (14) globulin, total 2.6 g/dL 1.5-4. 5 Not Available [address], [address], 09/04/2024 10:16:06 09/03/19 25 09/04/2024 COMP. METAB OLIC PANEL (14) bilirubin, total 0.2 mg/dL 0.0-1. 2 Not Available [address], [address], 09/04/2024 10:16:06 09/03/19 25 09/04/2024 COMP. METAB OLIC PANEL (14) alkaline phosphatase 92 IU/L 44-121 Not Available [address], [address], 09/04/2024 10:16:06 09/03/19 25 09/04/2024 COMP. METAB OLIC PANEL (14) AST (SGOT) 16 IU/L 0-40 Not Available [facility] & [address], [address], 09/04/2024 10:16:06 09/03/1909/04/2024 COMP. METAB OLIC PANEL (14) ALT (SGPT) 11 IU/L 0-44 Not Available [address], [address], 09/04/2024 10:16:06 09/03/1909/04/2024 CARDI OVASC ULAR REPOR T interpretati on Note Suppl ement al repor t is avail able. Not Available [address], [address], 09/04/2024 10:16:07 09/03/1909/04/2024 CARDI OVASC ULAR REPOR T pdf . Not Available [facility] & [address], [address], 09/04/2024 10:16:07 09/03/1909/04/2024 CBC, PLATE LET, NO DIFFE RENTI AL WBC 7.8 x10e3 /uL 3.4-10 .8 Not Available [address], [address], 09/04/2024 10:16:08 09/03/1909/04/2024 CBC, PLATE LET, NO DIFFE RENTI AL RBC 4.95 x10e6 /uL 4.14-5 .80 Not Available [address], [address], 09/04/2024 10:16:08 09/03/1909/04/2024 CBC, PLATE LET, NO DIFFE RENTI AL hemoglobin 13.8 g/dL 13.0-1 7.7 Not Available [facility] & [address], [address], 09/04/2024 10:16:08 09/03/1909/04/2024 CBC, PLATE LET, NO DIFFE RENTI AL hematocrit 43.6 % 37.5-5 1.0 Not Available [address], [address], 09/04/2024 10:16:08 09/03/1909/04/2024 CBC, PLATE LET, NO DIFFE RENTI AL MCV 88 fL 79-97 Not Available [address], [address], 09/04/2024 10:16:08 09/03/1909/04/2024 CBC, PLATE LET, NO DIFFE RENTI AL MCH 27.9 pg 26.6-3 3.0 Not Available [address], [address], 09/04/2024 10:16:08 09/03/1909/04/2024 CBC, PLATE LET, NO DIFFE RENTI AL MCHC 31.7 g/dL 31.5-3 5.7 Not Available [address], [address], 09/04/2024 10:16:08 09/03/1909/04/2024 CBC, PLATE LET, NO DIFFE RENTI AL RDW 13.8 % 11.6-1 5.4 Not Available [address], [address], 09/04/2024 10:16:08 09/03/1909/04/2024 CBC, PLATE LET, NO DIFFE RENTI AL platelets 415 x10e3 /uL 150-45 0 Not Available [address], [address], 09/04/2024 10:16:08 09/03/19 25 09/03/2024 HbA1c (hemo globi n A1c), blood HbA1c 9.0 Not Available In-Office Order Internal Use Only DO Not Attach Compendium DO Not Attach Compendium, Do Not Delete/merge, [id number] 09/03/2024 12:01:31 10/17/19 25 10/16/2024 Gluco se [Mass /volu me] in Blood glucose [mass/volume ] in blood 94 mg/dL low: 70mg/d Lhigh: 99mg/d L GLUCO SE,BE DSIDE POCT 94 70 - 99 mg/dL 10/16 8:08 AM CDT [facility] Not Available Not Available [...] Inval id 10/16 7:39 AM CDT [facility] Not Available [...] Negat yen, Error 10/16 7:05 AM CDT [facility] [employer] [employer] R LAB Not Available Not Available 12/03/2024 [...] yen Negat yen 10/16 7:05 AM CDT [facility] R LAB Not Available Not Available 12/03/2024 [...] yen Negat yen 10/16 7:05 AM CDT [facility] [facility] LAB Not Available Not Available 12/03/2024 [...] Not Detec leodan) 10/16 7:05 AM CDT [facility] [facility] LAB Not Available Not Available 12/03/2024 [...] 145 mmol/ L 10/16 6:47 AM CDT [facility] R LAB Not Available Not Available 12/03/2024 11:57:27 10/17/1910/16/2024 Basic metab olic 1999 panel - Serum or Plasm a potassium [moles/volum e] in serum or plasma 4.1 mmol/ L low: 3.5mmo l/Lhig h: 5.1mmo l/L POTAS SIUM 4.1 3.5 - 5.1 mmol/ L 10/16 6:47 AM CDT [facility] DeviceE R LAB Not Available Not Available 12/03/2024 11:57:27 10/17/1910/16/2024 Basic metab olic 1999 panel - Serum or Plasm a chloride [moles/volum e] in serum or plasma 113 mmol/ L low: 98mmol /Lhigh : 107mmo l/L high CHLOR JULIENNE 113 (H) 98 - 107 mmol/ L 10/16 6:47 AM CDT [facility] Not Available Not Available 12/03/2024 11:57:27 10/17/19 25 10/16/2024 Basic metab olic 1999 panel - Serum or Plasm a carbon dioxide, total [moles/volum e] in serum or plasma 22 mmol/ L low: 22mmol /Lhigh : 30mmol /L CO2, VENOU S 22 22 - 30 mmol/ L 10/16 6:47 AM CDT [facility] Not Available Not Available 12/03/2024 11:57:27 10/17/19 25 10/16/2024 Basic metab olic 2000 panel - Serum or Plasm a anion gap in serum or plasma by calculation 12.1 mmol/ L high: 18mmol /L ANION GAP 12.1 <18.0 mmol/ L 10/16 6:47 AM CDT [facility] Not Available Not Available 12/03/2024 11:57:27 10/17/19 25 10/16/2024 Basic metab olic 1999 panel - Serum or Plasm a glucose [mass/volume ] in serum or plasma 107 mg/dL low: 70mg/d Lhigh: 99mg/d L high GLUCO SE 107 (H) 70 - 99 mg/dL 10/16 6:47 AM CDT [facility] [employer]ble Device[employer] R LAB Not Available Not Available 12/03/2024 11:57:27 10/17/19 25 10/16/2024 Basic metab olic 1999 panel - Serum or Plasm a urea nitrogen [mass/volume ] in serum or plasma 24 mg/dL low: 9mg/dL high: 21mg/d L high BUN 24 (H) 9 - 21 mg/dL 10/16 6:47 AM T [facility] [employer] Device[employer] R LAB Not Available Not Available 12/03/2024 11:57:27 10/17/19 25 10/16/2024 Basic metab olic 1999 panel - Serum or Plasm a creatinine [mass/volume ] in serum or plasma 1.15 mg/dL low: 0.7mg/ dLhigh : 1.3mg/ dL CREAT ININE , BLOOD 1.15 0.70 - 1.30 mg/dL 10/16 6:47 AM CDT [facility] Not Available Not Available 12/03/2024 11:57:27 10/17/19 25 10/16/2024 Basic metab olic 1999 panel - Serum or Plasm a urea nitrogen/cre atinine [mass ratio] in serum or plasma 21 text: 12 - 20 ratio high BUN/C REATI NINE RATIO 21 (H) 12 - 20 ratio 10/16 6:47 AM CDT [facility] [employer] [facility] Not Available Not Available 12/03/2024 11:57:27 10/17/19 25 10/16/2024 Basic metab olic 2000 panel - Serum or Plasm a calcium [mass/volume ] in serum or plasma 9 mg/dL low: 8.7mg/ dLhigh : 10.5mg /dL CALCI UM 9.0 8.7 - 10.5 mg/dL 10/16 6:47 AM CDT [facility] [employer] [facility] Not Available Not Available 12/03/2024 11:57:27 10/17/19 25 10/16/2024 Basic metab olic 2000 panel - Serum or Plasm a glomerular filtration rate [volume rate/area] in serum, plasma or blood by creatinine-b ased formula (CKD-epi 2020)/1.73 sq M low: 60 GFR, ESTIM ATED >60 >=60 10/16 6:47 AM CDT [facility] [employer] [facility] Not Available Not Available 12/03/2024 11:57:27 10/17/19 25 10/16/2024 Basic metab olic 2000 panel - Serum or Plasm a glomerular filtration rate [volume rate/area] in serum, plasma or blood by creatinine-b ased formula (MDRD)/1.73 sq M among black population low: 60 GFR, EST. AFRIC AN >60 >=60 10/16 6:47 AM CDT [facility] [employer] H [facility] Not Available Not Available 12/03/2024 11:57:27 10/17/19 25 10/16/2024 Basic metab olic 2000 panel - Serum or Plasm a glomerular filtration rate [volume rate/area] in serum, plasma or blood by creatinine-b ased formula (MDRD)/1.73 sq M among non black population low: 60 GFR, EST. NONAF RICAN >60 >=60 10/16 6:47 AM CDT [facility] [employer] [facility] Not Available Not [...] 10(3) /mcL 10/16 3:06 AM CDT [facility] Not Available Not Available 12/03/2024 11:57:27 10/17/19 25 10/16/2024 CBC W Auto Diffe renti al panel - Blood erythrocytes [#/volume] in blood by automated count 4.9 text: 4.40 - 5.80 10(6)/ mcL RBC 4.90 4.40 - 5.80 10(6) /mcL 10/16 3:06 AM CDT [facility] Not Available Not Available 12/03/2024 11:57:27 10/17/19 25 10/16/2024 CBC W Auto Diffe renti al panel - Blood hemoglobin [mass/volume ] in blood 14.3 g/dL low: 13g/dL high: 16.5g/ dL HEMOG LOBIN (HGB) 14.3 13.0 - 16.5 g/dL 10/16 3:06 AM CDT [facility] Not Available Not Available 12/03/2024 11:57:27 10/17/19 25 10/16/2024 CBC W Auto Diffe renti al panel - Blood hematocrit [volume fraction] of blood by automated count 42.9 % low: 38%hig h: 50% HEMAT OCRIT (HCT) 42.9 38.0 - 50.0 % 10/16 3:06 AM CDT [facility] Not Available Not Available 12/03/2024 11:57:27 10/17/19 25 10/16/2024 CBC W Auto Diffe renti al panel - Blood MCV [entitic mean volume] in red blood cells by automated count 87.6 fL low: 82fLhi gh: 96fL MCV 87.6 82.0 - 96.0 fL 10/16 3:06 AM CDT [facility] Not Available Not Available 12/03/2024 11:57:27 10/17/19 25 10/16/2024 CBC W Auto Diffe renti al panel - Blood MCH [entitic mass] by automated count 29.2 pg low: 26pghi gh: 32pg MCH 29.2 26.0 - 32.0 pg 10/16 3:06 AM CDT [facility] Not Available Not Available 12/03/2024 11:57:27 10/17/19 25 10/16/2024 CBC W Auto Diffe renti al panel - Blood MCHC [entitic mass/volume] in red blood cells by automated count 33.3 g/dL low: 31g/dL high: 36g/dL MCHC 33.3 31.0 - 36.0 g/dL 10/16 3:06 AM CDT [facility] Not Available Not Available 12/03/2024 11:57:27 10/17/19 25 10/16/2024 CBC W Auto Diffe renti al panel - Blood platelets [#/volume] in blood 315 text: 140 - 440 10(3)/ mcL PLATE LET COUNT 315 140 - 440 10(3) /mcL 10/16 3:06 AM CDT [facility] Not Available Not Available 12/03/2024 11:57:27 10/17/19 25 10/16/2024 CBC W Auto Diffe renti al panel - Blood erythrocyte [distwidth] in red blood cells by automated count 13.5 % low: 11.8%h igh: 15.5% RDW 13.5 11.8 - 15.5 % 10/16 3:06 AM CDT [facility] Not Available Not Available 12/03/2024 11:57:27 10/17/19 25 10/16/2024 CBC W Auto Diffe renti al panel - Blood platelet [entitic mean volume] in blood by automated count 10.6 fL low: 8fLhig h: 12.6fL MPV 10.6 8.0 - 12.6 fL 10/16 3:06 AM CDT [facility] Not Available Not Available 12/03/2024 11:57:27 10/17/19 25 10/16/2024 CBC W Auto Diffe renti al panel - Blood neutrophils/ leukocytes in blood by automated count 87.6 % low: 40%hig h: 68% high NEUTR OPHIL S 87.6 (H) 40.0 - 68.0 % 10/16 3:06 AM CDT [facility] Not Available Not Available 12/03/2024 11:57:27 10/17/19 25 10/16/2024 CBC W Auto Diffe renti al panel - Blood lymphocytes/ leukocytes in blood by automated count 9.3 % low: 19%hig h: 49% low LYMPH OCYTE S 9.3 (L) 19.0 - 49.0 % 10/16 3:06 AM CDT [facility] Not Available Not Available 12/03/2024 11:57:27 10/17/19 25 10/16/2024 CBC W Auto Diffe renti al panel - Blood monocytes/le ukocytes in blood by automated count 2.7 % low: 3%high : 13% low MONOC YTES 2.7 (L) 3.0 - 13.0 % 10/16 3:06 AM CDT [facility] Not Available Not Available 12/03/2024 11:57:27 10/17/19 25 10/16/2024 CBC W Auto Diffe renti al panel - Blood eosinophils/ leukocytes in blood by automated count 0 % low: 0%high : 8% EOSIN OPHIL S 0.0 0.0 - 8.0 % 10/16 3:06 AM CDT [facility] Not Available Not Available 12/03/2024 11:57:27 10/17/19 25 10/16/2024 CBC W Auto Diffe renti al panel - Blood basophils/le ukocytes in blood by automated count 0.4 % low: 0%high : 1% BASOP HILS 0.4 0.0 - 1.0 % 10/16 3:06 AM CDT [facility] Not Available Not Available 12/03/2024 11:57:27 10/17/19 25 10/16/2024 CBC W Auto Diffe renti al panel - Blood neutrophils [#/volume] in blood by automated count 13.16 text: 1.40 - 5.30 10(3)/ mcL high ABSOL KOKHANOK NEUTR OPHIL S 13.16 (H) 1.40 - 5.30 10(3) /mcL 10/16 3:06 AM CDT [facility] Not Available Not Available 12/03/2024 11:57:27 10/17/19 25 10/16/2024 CBC W Auto Diffe renti al panel - Blood lymphocytes [#/volume] in blood by automated count 1.39 text: 0.90 - 3.30 10(3)/ mcL ABSOL KOKHANOK LYMPH OCYTE S 1.39 0.90 - 3.30 10(3) /mcL 10/16 3:06 AM CDT [facility] Not Available Not Available 12/03/2024 11:57:27 10/17/19 25 10/16/2024 CBC W Auto Diffe renti al panel - Blood monocytes [#/volume] in blood by automated count 0.41 text: 0.10 - 0.90 10(3)/ mcL ABSOL KOKHANOK MONOC YTES 0.41 0.10 - 0.90 10(3) /mcL 10/16 3:06 AM CD[facility] Not Available Not Available 12/03/2024 11:57:27 10/17/19 25 10/16/2024 CBC W Auto Diffe renti al panel - Blood eosinophils [#/volume] in blood by automated count 0 text: 0.00 - 0.50 10(3)/ mcL ABSOL KOKHANOK EOSIN OPHIL 0.00 0.00 - 0.50 10(3) /mcL 10/16 3:06 AM CDT [facility] Not Available Not Available 12/03/2024 11:57:27 10/17/19 25 10/16/2024 CBC W Auto Diffe renti al panel - Blood basophils [#/volume] in blood by automated count 0.06 text: 0.00 - 0.10 10(3)/ mcL ABSOL KOKHANOK BASOP HILS 0.06 0.00 - 0.10 10(3) /mcL 10/16 3:06 AM CDT [facility] Not Available Not Available 12/03/2024 11:57:27 10/17/19 25 10/16/2024 CBC W Auto Diffe renti al panel - Blood nucleated erythrocytes /leukocytes [ratio] in blood 0 NRBC PER 100 WBC 0 10/16 3:06 AM CDT [facility] Not [...] 7.34 - 7.43 10/16 3:04 AM CDT [facility] Not Available Not Available 12/03/2024 11:57:27 10/17/19 25 10/16/2024 Gas panel - Venou s blood carbon dioxide [partial pressure] in venous blood 23 text: 41 - 51 mmHg low PCO2 (VENO US) 23 (L) 41 - 51 mmHg 10/16 3:04 AM CDT [facility] Not Available Not Available 12/03/2024 11:57:27 10/17/19 25 10/16/2024 Gas panel - Venou s blood oxygen [partial pressure] in venous blood 133 text: 30 - 50 mmHg high PO2 VENOU S 133 (H) 30 - 50 mmHg 10/16 3:04 AM CDT [facility] Not Available Not Available 12/03/2024 11:57:27 10/17/19 25 10/16/2024 Gas panel - Venou s blood oxygen saturation in venous blood 99 % low: 60%hig h: 85% high O2 SAT JOHNNIE, MEASU RED 99 (H) 60 - 85 % 10/16 3:04 AM CDT [facility] Not Available Not Available 12/03/2024 11:57:27 10/17/19 25 10/16/2024 Gas panel - Venou s blood bicarbonate [moles/volum e] in blood 16.7 mmol/ L low: 22mmol /Lhigh : 26mmol /L low BICAR BONAT E 16.7 (L) 22.0 - 26.0 mmol/ L 10/16 3:04 AM CDT [facility] Not Available Not Available 12/03/2024 11:57:27 10/17/19 25 10/16/2024 Gas panel - Venou s blood base venous -4.6 mmol/ L low: -2mmol /Lhigh : 3mmol/ L low BASE VENOU S -4.6 (L) -2.0 - 3.0 mmol/ L 10/16 3:04 AM CDT [facility] Not Available Not Available 12/03/2024 11:57:27 10/17/19 25 10/16/2024 Gas panel - Venou s blood carboxyhemog lobin/hemogl obin.total in blood 0.5 % low: 0%high : 5% CARBO XYHEM OGLOB IN 0.5 0.0 - 5.0 % 10/16 3:04 AM CDT [facility] Not Available Not Available 12/03/2024 11:57:27 10/17/19 25 10/16/2024 Gas panel - Venou s blood methemoglobi n/hemoglobin .total in blood 0.7 % low: 0%high : 1.5% METHE MOGLO BIN 0.7 0.0 - 1.5 % 10/16 3:04 AM CDT [facility] Not Available Not Available 12/03/2024 [...] 78 U/L 10/16 3:36 AM CDT [facility] Not Available Not [...] <10 <10 mg/dL 10/16 3:36 AM CDT [facility] Not Available [...] M 141 136 - 145 mmol/ L 03/28 /2025 3:36 AM CDT [facility] Not Available Not Available 12/03/2024 11:57:27 10/17/19 25 10/16/2024 Compr ehens yen metab olic 1999 panel - Serum or Plasm a potassium [moles/volum e] in serum or plasma 4.2 mmol/ L low: 3.5mmo l/Lhig h: 5.1mmo l/L POTAS SIUM 4.2 3.5 - 5.1 mmol/ L 10/16 3:36 AM CDT [facility] Not Available Not Available 12/03/2024 11:57:27 10/17/19 25 10/16/2024 Compr ehens yen metab olic 1999 panel - Serum or Plasm a chloride [moles/volum e] in serum or plasma 107 mmol/ L low: 98mmol /Lhigh : 107mmo l/L CHLOR JULIENNE 107 98 - 107 mmol/ L 10/16 3:36 AM CDT [facility] Not Available Not Available 12/03/2024 11:57:27 10/17/19 25 10/16/2024 Compr ehens yen metab olic 1999 panel - Serum or Plasm a carbon dioxide, total [moles/volum e] in serum or plasma 15 mmol/ L low: 22mmol /Lhigh : 30mmol /L low CO2, VENOU S 15 (L) 22 - 30 mmol/ L 10/16 3:36 AM [facility] Not Available Not Available 12/03/2024 11:57:27 10/17/19 25 10/16/2024 Compr ehens yen metab olic 1999 panel - Serum or Plasm a anion gap in serum or plasma by calculation 23.2 mmol/ L high: 18mmol /L high ANION GAP 23.2 (H) <18.0 mmol/ L 10/16 3:36 AM CDT [facility] Not Available Not Available 12/03/2024 11:57:27 10/17/19 25 10/16/2024 Compr ehens yen metab olic 1999 panel - Serum or Plasm a glucose [mass/volume ] in serum or plasma 256 mg/dL low: 70mg/d Lhigh: 99mg/d L high GLUCO SE 256 (H) 70 - 99 mg/dL 10/16 3:36 AM CDT [facility] R LAB Not Available Not Available 12/03/2024 11:57:27 10/17/19 25 10/16/2024 Compr ehens yen metab olic 1999 panel - Serum or Plasm a urea nitrogen [mass/volume ] in serum or plasma 23 mg/dL low: 9mg/dL high: 21mg/d L high BUN 23 (H) 9 - 21 mg/dL 10/16 3:36 AM CDT [facility] R [facility] Not Available Not Available 12/03/2024 11:57:27 10/17/19 25 10/16/2024 Compr Symphony Conciergeens yen metab olic 1999 panel - Serum or Plasm a creatinine [mass/volume ] in serum or plasma 1.21 mg/dL low: 0.7mg/ dLhigh : 1.3mg/ dL CREAT ININE , BLOOD 1.21 0.70 - 1.30 mg/dL 10/16 3:36 AM CDT [facility] R [facility] Not Available Not Available 12/03/2024 11:57:27 10/17/19 25 10/16/2024 Compr Symphony Conciergeens yen metab olic 1999 panel - Serum or Plasm a urea nitrogen/cre atinine [mass ratio] in serum or plasma 19 text: 12 - 20 ratio BUN/C REATI NINE RATIO 19 12 - 20 ratio 10/16 3:36 AM CDT [facility] R [facility] Not Available Not Available 12/03/2024 11:57:27 10/17/19 25 10/16/2024 Compr Symphony Conciergeens yen metab olic 1999 panel - Serum or Plasm a protein [mass/volume ] in serum or plasma 7.9 g/dL low: 6g/dLh igh: 8g/dL TOTAL PROTE IN 7.9 6.0 - 8.0 g/dL 10/16 3:36 AM CDT [facility] R LAB Not Available Not Available 12/03/2024 11:57:27 10/17/19 25 10/16/2024 Compr ehens yen metab olic 1999 panel - Serum or Plasm a albumin [mass/volume ] in serum or plasma 4.7 g/dL low: 3.5g/d Lhigh: 5g/dL ALBUM IN 4.7 3.5 - 5.0 g/dL 10/16 3:36 AM CDT [facility] R LAB Not Available Not Available 12/03/2024 11:57:27 10/17/19 25 10/16/2024 Compr ehens yen metab olic 2000 panel - Serum or Plasm a albumin/glob ulin [mass ratio] in serum or plasma 1.5 low: 1high: 2.2 A/G RATIO 1.5 1.0 - 2.2 10/16 3:36 AM CDT [facility] R LAB Not Available Not Available 12/03/2024 11:57:27 10/17/19 25 10/16/2024 Compr ehens yen metab olic 1999 panel - Serum or Plasm a calcium [mass/volume ] in serum or plasma 9.2 mg/dL low: 8.7mg/ dLhigh : 10.5mg /dL CALCI UM 9.2 8.7 - 10.5 mg/dL 10/16 3:36 AM CDT [facility] R LAB Not Available Not Available 12/03/2024 11:57:27 10/17/19 25 10/16/2024 Compr ehens yen metab olic 1999 panel - Serum or Plasm a bilirubin.to su [mass/volume ] in serum or plasma 0.7 mg/dL low: 0.2mg/ dLhigh : 1.2mg/ dL T BILI 0.7 0.2 - 1.2 mg/dL 10/16 3:36 AM CDT [facility] R LAB Not Available Not Available 12/03/2024 11:57:27 10/17/19 25 10/16/2024 Compr ehens yen metab olic 2000 panel - Serum or Plasm a aspartate aminotransfe rase [enzymatic activity/vol ume] in serum or plasma 28 U/L high: 43U/L SGOT (AST) 28 <43 U/L 10/16 3:36 AM CDT [facility] Not Available Not Available 12/03/2024 11:57:27 10/17/19 25 10/16/2024 Compr ehens yen metab olic 1999 panel - Serum or Plasm a alanine aminotransfe rase [enzymatic activity/vol ume] in serum or plasma 17 U/L high: 56U/L SGPT (ALT) 17 <56 U/L 10/16 3:36 AM CDT [facility] Not Available Not Available 12/03/2024 11:57:27 10/17/19 25 10/16/2024 Compr ehens yen metab olic 1999 panel - Serum or Plasm a alkaline phosphatase [enzymatic activity/vol ume] in serum or plasma 78 U/L low: 40U/Lh igh: 150U/L ALKAL INE PHOSP HATAS E 78 40 - 150 U/L 10/16 3:36 AM CDT [facility] Device[facility] R LAB Not Available Not Available 12/03/2024 11:57:27 10/17/19 25 10/16/2024 Compr ehens yen metab olic 2000 panel - Serum or Plasm a glomerular filtration rate [volume rate/area] in serum, plasma or blood by creatinine-b ased formula (CKD-epi 2020)/1.73 sq M low: 60 GFR, ESTIM ATED >60 >=60 10/16 3:36 AM CDT [facility] Not Available Not Available 12/03/2024 11:57:27 10/17/1910/16/2024 Compr ehens yen metab olic 2000 panel - Serum or Plasm a glomerular filtration rate [volume rate/area] in serum, plasma or blood by creatinine-b ased formula (MDRD)/1.73 sq M among black population low: 60 GFR, EST. AFRIC AN >60 >=60 10/16 3:36 AM CDT [facility] Not Available Not Available 12/03/2024 11:57:27 10/17/19 25 10/16/2024 Compr ehens yen metab olic 2000 panel - Serum or Plasm a glomerular filtration rate [volume rate/area] in serum, plasma or blood by creatinine-b ased formula (MDRD)/1.73 sq M among non black population low: 60 GFR, EST. NONAF RICAN >60 >=60 10/16 3:36 AM CDT [facility] Not Available Not Available 12/03/2024 11:57:27 10/17/19 25 10/16/2024 Compr ehens yen metab olic 2000 panel - Serum or Plasm a interpretati on and review of laboratory results Abnorm al Not Available Not Available 11:57:27 12/17/19 25 12/16/2024 Aceto ne [Pres ence] in Blood acetone [presence] in blood Negati ve text: negati ve Not Available Not Available 01/06/2025 04:45:54 12/17/19 25 12/16/2024 Aceto ne [Pres ence] in Blood interpretati on and review of laboratory results Normal Not Available Not Available 12/20 04:45:54 12/25/19 25 12/24/2024 CBC W Auto Diffe renti al panel - Blood leukocytes [#/volume] in blood by automated count 9.8 text: 4.00 - 12.00 10(3)/ mcL Not Available Not Available 01/06/2025 04:45:55 12/25/19 25 12/24/2024 CBC W Auto Diffe renti al panel - Blood erythrocytes [#/volume] in blood by automated count 5.53 text: 4.40 - 5.80 10(6)/ mcL Not Available Not Available 01/06/2025 04:45:55 12/25/19 25 12/24/2024 CBC W Auto Diffe renti al panel - Blood hemoglobin [mass/volume ] in blood 15.6 g/dL low: 13g/dL high: 16.5g/ dL Not Available Not Available 01/06/2025 04:45:55 12/25/19 25 12/24/2024 CBC W Auto Diffe renti al panel - Blood hematocrit [volume fraction] of blood by automated count 47 % low: 38%hig h: 50% Not Available Not Available 01/06/2025 04:45:55 12/25/1912/24/2024 CBC W Auto Diffe renti al panel - Blood MCV [entitic mean volume] in red blood cells by automated count 85 fL low: 82fLhi gh: 96fL Not Available Not Available 01/06/2025 04:45:55 12/25/1912/24/2024 CBC W Auto Diffe renti al panel - Blood MCH [entitic mass] by automated count 28.2 pg low: 26pghi gh: 32pg Not Available Not Available 01/06/2025 04:45:55 12/25/1912/24/2024 CBC W Auto Diffe renti al panel - Blood MCHC [entitic mass/volume] in red blood cells by automated count 33.2 g/dL low: 31g/dL high: 36g/dL Not Available Not Available 01/06/2025 04:45:55 12/25/1912/24/2024 CBC W Auto Diffe renti al panel - Blood platelets [#/volume] in blood 373 text: 140 - 440 10(3)/ mcL Not Available Not Available 01/06/2025 04:45:55 12/25/1912/24/2024 CBC W Auto Diffe renti al panel - Blood erythrocyte [distwidth] in red blood cells by automated count 12.9 % low: 11.8%h igh: 15.5% Not Available Not Available 01/06/2025 04:45:55 12/25/1912/24/2024 CBC W Auto Diffe renti al panel - Blood platelet [entitic mean volume] in blood by automated count 10.2 fL low: 8fLhig h: 12.6fL Not Available Not Available 01/06/2025 04:45:55 12/25/1912/24/2024 CBC W Auto Diffe renti al panel - Blood neutrophils/ leukocytes in blood by automated count 71.1 % low: 40%hig h: 68% high Not Available Not Available 01/06/2025 04:45:55 12/25/1912/24/2024 CBC W Auto Diffe renti al panel - Blood lymphocytes/ leukocytes in blood by automated count 20.4 % low: 19%hig h: 49% Not Available Not Available 01/06/2025 04:45:55 12/25/1912/24/2024 CBC W Auto Diffe renti al panel - Blood monocytes/le ukocytes in blood by automated count 8.2 % low: 3%high : 13% Not Available Not Available 01/06/2025 04:45:55 12/25/1912/24/2024 CBC W Auto Diffe renti al panel - Blood eosinophils/ leukocytes in blood by automated count 0 % low: 0%high : 8% Not Available Not Available 01/06/2025 04:45:55 12/25/1912/24/2024 CBC W Auto Diffe renti al panel - Blood basophils/le ukocytes in blood by automated count 0.3 % low: 0%high : 1% Not Available Not Available 01/06/2025 04:45:55 12/25/1912/24/2024 CBC W Auto Diffe renti al panel - Blood neutrophils [#/volume] in blood by automated count 6.97 text: 1.40 - 5.30 10(3)/ mcL high Not Available Not Available 01/06/2025 04:45:55 12/25/1912/24/2024 CBC W Auto Diffe renti al panel - Blood lymphocytes [#/volume] in blood by automated count 2 text: 0.90 - 3.30 10(3)/ mcL Not Available Not Available 01/06/2025 04:45:55 12/25/1912/24/2024 CBC W Auto Diffe renti al panel - Blood monocytes [#/volume] in blood by automated count 0.8 text: 0.10 - 0.90 10(3)/ mcL Not Available Not Available 01/06/2025 04:45:55 12/25/1912/24/2024 CBC W Auto Diffe renti al panel - Blood eosinophils [#/volume] in blood by automated count 0 text: 0.00 - 0.50 10(3)/ mcL Not Available Not Available 01/06/2025 04:45:55 12/25/19 25 12/24/2024 CBC W Auto Diffe renti al panel - Blood basophils [#/volume] in blood by automated count 0.03 text: 0.00 - 0.10 10(3)/ mcL Not Available Not Available 01/06/2025 04:45:55 12/25/19 25 12/24/2024 CBC W Auto Diffe renti al panel - Blood nucleated erythrocytes /leukocytes [ratio] in blood 0 Not Available Not Available 12/20 04:45:55 12/25/19 25 12/24/2024 CBC W Auto Diffe renti al panel - Blood interpretati on and review of laboratory results Abnorm al Not Available Not Available 04:45:55 12/25/19 25 12/24/2024 Magne sium [Mass /volu me] in Serum or Plasm a magnesium [mass/volume ] in serum or plasma 1.9 mg/dL low: 1.6mg/ dLhigh : 2.6mg/ dL Not Available Not Available 01/06/2025 04:45:55 12/25/19 25 12/24/2024 Magne sium [Mass /volu me] in Serum or Plasm a interpretati on and review of laboratory results Normal Not Available Not Available 12/20 04:45:55 12/25/19 25 12/24/2024 Lipas e [Enzy matic activ ity/v olume ] in Serum or Plasm a lipase [enzymatic activity/vol ume] in serum or plasma 6 U/L low: 8U/Lhi gh: 78U/L low Not Available Not Available 01/06/2025 04:45:54 12/25/19 25 12/24/2024 Lipas e [Enzy matic activ ity/v olume ] in Serum or Plasm a interpretati on and review of laboratory results Abnorm al Not Available Not Available 04:45:54 12/25/19 25 12/24/2024 Compr ehens yen metab olic 2000 panel - Serum or Plasm a sodium [moles/volum e] in serum or plasma 140 mmol/ L low: 136mmo l/Lhig h: 145mmo l/L Not Available Not Available 01/06/2025 04:45:54 12/25/19 25 12/24/2024 [facility] [employer] yen Isai olic 1999 panel - Serum or Plasm a potassium [moles/volum e] in serum or plasma 3.8 mmol/ L low: 3.5mmo l/Lhig h: 5.1mmo l/L Not Available Not Available 01/06/2025 04:45:54 12/25/19 25 12/24/2024 Compr ehens yen metab olic 1999 panel - Serum or Plasm a chloride [moles/volum e] in serum or plasma 102 mmol/ L low: 98mmol /Lhigh : 107mmo l/L Not Available Not Available 01/06/2025 04:45:54 12/25/19 25 12/24/2024 [facility]ens yen metab olic 1999 panel - Serum or Plasm a carbon dioxide, total [moles/volum e] in serum or plasma 21 mmol/ L low: 22mmol /Lhigh : 30mmol /L low Not Available Not Available 01/06/2025 04:45:54 12/25/19 25 12/24/2024 [email or web address] yen Isai olic 1999 panel - Serum or Plasm a anion gap in serum or plasma by calculation 20.8 mmol/ L high: 18mmol /L high Not Available Not Available 01/06/2025 04:45:54 12/25/19 25 12/24/2024 [email or web address] yen Isai olic 1999 panel - Serum or Plasm a glucose [mass/volume ] in serum or plasma 204 mg/dL low: 70mg/d Lhigh: 99mg/d L high Not Available Not Available 01/06/2025 04:45:54 12/25/19 25 12/24/2024 [facility] [employer] yen Isai olic 1999 panel - Serum or Plasm a urea nitrogen [mass/volume ] in serum or plasma 27 mg/dL low: 9mg/dL high: 21mg/d L high Not Available Not Available 01/06/2025 04:45:54 12/25/19 25 12/24/2024 [facility] [employer] yen Isai olic 1999 panel - Serum or Plasm a creatinine [mass/volume ] in serum or plasma 1.31 mg/dL low: 0.7mg/ dLhigh : 1.3mg/ dL high Not Available Not Available 01/06/2025 04:45:54 12/25/19 25 12/24/2024 [facility] [employer] yen Isai [facility] 1999 panel - Serum or Plasm a urea nitrogen/cre atinine [mass ratio] in serum or plasma 21 text: 12 - 20 ratio high Not Available Not Available 01/06/2025 04:45:54 12/25/19 25 12/24/2024 [facility] [employer] yen Isai [facility] 1999 panel - Serum or Plasm a protein [mass/volume ] in serum or plasma 8.4 g/dL low: 6g/dLh igh: 8g/dL high Not Available Not Available 01/06/2025 04:45:54 12/25/19 25 12/24/2024 [facility] [employer] y[employer] Isai [facility] 1999 panel - Serum or Plasm a albumin [mass/volume ] in serum or plasma 5.1 g/dL low: 3.5g/d Lhigh: 5g/dL high Not Available Not Available 01/06/2025 04:45:54 12/25/19 25 12/24/2024 [facility] [employer] y[employer] Isai [facility] 1999 panel - Serum or Plasm a albumin/glob ulin [mass ratio] in serum or plasma 1.5 low: 1high: 2.2 Not Available Not Available 01/06/2025 04:45:54 12/25/19 25 12/24/2024 [facility] [employer] y[employer] Isai [facility] 2000 panel - Serum or Plasm a calcium [mass/volume ] in serum or plasma 9.7 mg/dL low: 8.7mg/ dLhigh : 10.5mg /dL Not Available Not Available 01/06/2025 04:45:54 12/25/19 25 12/24/2024 [facility] 1999 panel - Serum or Plasm a bilirubin.to su [mass/volume ] in serum or plasma 1.1 mg/dL low: 0.2mg/ dLhigh : 1.2mg/ dL Not Available Not Available 01/06/2025 04:45:54 12/25/19 25 12/24/2024 [facility] 2000 panel - Serum or Plasm a aspartate aminotransfe rase [enzymatic activity/vol ume] in serum or plasma 22 U/L high: 43U/L Not Available Not Available 01/06/2025 04:45:54 12/25/19 25 12/24/2024 [facility] 1999 panel - Serum or Plasm a alanine aminotransfe rase [enzymatic activity/vol ume] in serum or plasma 16 U/L high: 56U/L Not Available Not Available 01/06/2025 04:45:54 12/25/19 25 12/24/2024 [facility] 1999 panel - Serum or Plasm a alkaline phosphatase [enzymatic activity/vol ume] in serum or plasma 80 U/L low: 40U/Lh igh: 150U/L Not Available Not Available 01/06/2025 04:45:54 12/25/19 25 12/24/2024 [facility] 1999 panel - Serum or Plasm a glomerular filtration rate [volume rate/area] in serum, plasma or blood by creatinine-b ased formula (CKD-epi 2020)/1.73 sq M low: 60 Creat inine Clear ance is the prefe rred crite mike for selec ting drug dose adjus tment s in renal ly impai red patie nts. The GFR is provi ded as addit ional perti nent clini kiersten infor matio n. GFR is repor leodan in mL/mi n/1.7 3 sq m. Calcu latio n based on the Chron ic Kidne y Disea se Epide miolo gy Colla borat ion (CKD- EPI) equat ion refit witho ut adjus tment for race. Not Available Not Available 01/06/2025 04:45:54 12/25/19 25 12/24/2024 Compr ehens yen metab olic 1999 panel - Serum or Plasm a glomerular filtration rate [volume rate/area] in serum, plasma or blood by creatinine-b ased formula (MDRD)/1.73 sq M among black population low: 60 Not Available Not Available 01/06/2025 04:45:54 12/25/19 25 12/24/2024 Compr ehens yen metab olic 1999 panel - Serum or Plasm a glomerular filtration rate [volume rate/area] in serum, plasma or blood by creatinine-b ased formula (MDRD)/1.73 sq M among non black population low: 60 Not Available Not Available 01/06/2025 04:45:54 12/25/19 25 12/24/2024 Compr ehens yen metab olic 2000 panel - Serum or Plasm a interpretati on and review of laboratory results Abnorm al Not Available Not Available 04:45:54 12/25/19 25 12/24/2024 Gluco se [Mass /volu me] in Blood glucose [mass/volume ] in blood 191 mg/dL low: 70mg/d Lhigh: 99mg/d L high Patie nt RN Perfo rmed Not Available Not Available 01/06/2025 04:45:54 12/25/19 25 12/24/2024 Gluco se [Mass /volu me] in Blood interpretati on and review of laboratory results Abnorm al Not Available Not Available 04:45:54 09/17/19 25 09/17/2024 XR, chest No observ ation record ed. [facility] [address] [place], [address], 09/18/2024 10:37:26 10/16/19 25 10/15/2024 XR, chest No observ ation record ed. [address], [address], 10/16/2024 09:14:36 10/17/19 25 10/16/2024 CT, abdom en + pelvi s, w/ contr ast No observ ation record ed. [facility] [address] [place], [address], 10/16/2024 15:52:49 Result Notes None recorded. Problems Name Problem SNOMED Code Status Onset Date Resolution Date Notes Provider Name and Address Organization Details Recorded Time Pneumonia 454691286 Active 2017 KAUR [place] - [facility] 0 11:54:45 Dehydration 05124976 Active 2017 KAUR Contreras, [place] - [facility] 1 14:33:10 Mixed hypercholester olemia and hypertriglycer idemia 487096825 Active 2017 KAUR [place] - [facility] 0 11:54:46 Diabetic ketoacidosis without coma 413614047 Active 2017 KAUR [place] - [facility] 1 10:29:24 Type 1 diabetes mellitus 22598730 Active 2017 KAUR [place] - [facility] 0 11:54:45 Problem Notes None recorded. Procedures Surgical History Date Name Laterality Status Provider Name and Address Organization Details Recorded Time Cholecystectomy completed Ruth Ann DelongKAUR champion [place] - [facility] 09/03/2024 11:51:23 Imaging Results None recorded. Procedure Notes None recorded. Medical Equipment None Reported. Allergies Allergen ID Allergen Name Allergen Category Reaction Reaction Severity Criticality Documentation Date Start Date Code Code System Note Provider Name and Address Organization Details Recorded Time [id number] Haldol medicatio n confusion moderate Not available 01/06/2025 94320 9 RxNorm KAUR [place], [place] - [facility] 5 14:50:39 55763 strawberr y allergeni c extract food rash moderate Not available 03/23/2015 60777 4 RxNorm KAUR [place], [place] - [place] 0 11:55:03 Medications Name Sig Start Date Stop Date Status Note LastModified by Organization Details LastModified Time atorvasta tin 40 mg tablet 05/06 completed Not Available Not Available Not Available atorvasta tin 20 mg tablet TAKE 1 TABLET BY MOUTH EVERY DAYNE EDS APPT BEFORE NEXT REFILL * active Not Available Not Available No t [...] EVERY EVENING (PATIENT NEEDS APPT FOR REFILLS) 04/16 completed Not Available Not Available Not Available erythromy jose alejandro 250 mg tablet TAKE ONE TABLET BY MOUTH THIRTY MINUTES BEFORE MEALS 11/13 completed Not Available Not Available Not Available amoxicill in 875 mg tablet TAKE 1 TABLET BY MOUTH TWICE A DAY FOR 10 DAYS 04/16 completed Not Available Not Available Not Available erythromy jose alejandro ethylsucc inate 400 mg/5 mL oral powder for suspensio n TAKE 5 MLS 10-15 MINUTES BEFORE EATING 3 TIMES DAILY FOR 28 DAYS. active Not Available Not Available No t Available potassium chloride ER 20 mEq tablet,ex tended release(p art/cryst ) 11/13 completed Not Available Not Available Not Available famotidin e 20 mg tablet TAKE 1/2 TABLET TWICE A DAY BY MOUTH active Not Available Not Available No t Available diphenhyd ramine 50 mg/mL injection solution Take 1 mL by injectio n route. 11/13 completed Not Available Not Available Not Available [employer] Ultra Test strips CHECK BLOOD SUGAR 3 [...] MOUTH TWICE A DAY FOR 90 DAYS 01/06 completed Not Available Not Available Not Available lisinopri l 10 mg tablet TAKE 1 TABLET BY MOUTH DAILY. 05/30 completed Not Available Not Available Not Available promethaz ine 25 mg tablet TAKE 1 TABLET BY MOUTH UP TO 4 TIMES DAILY FOR NAUSEA AND VOMITING UNRELIEV ED BY ROOSEVELT. active Not Available Not Available No t Available Phospha Neutral 250 mg tablet TAKE 2 TABLETS BY MOUTH 3 TIMES DAILY FOR 5 DOSES. 01/06 completed Not Available Not Available Not Available glucagon (human recombina nt) 1 mg solution for injection 1 mg by injectio n route. 12/26 completed Not Available Not Available Not Available Gas Relief Extra Strength 125 mg capsule PLEASE SEE ATTACHED FOR DETAILED DIRECTIO NS active Not Available Not Available No t Available gabapenti n 300 mg capsule TAKE 1 CAPSULE BY MOUTH 3 TIMES A DAY (PATIENT NEEDS APPT FOR REFILLS) 2022 active Not Available Not Available Not Avai lable omeprazol e 20 mg capsule,d elayed release TAKE 1 CAPSULE BY MOUTH EVERY DAY 01/06 completed Not Available Not Available Not Available Banophen 25 mg capsule TAKE 2 CAPSULES BY MOUTH UP TO 4 TIMES DAILY TO HELP WITH NAUSEA/V OMITING RELATED TO GASTROPA RESIS. active Not Available Not Available No t Available lisinopri l 5 mg tablet Take 1 tablet every day by oral route. 10/31 completed Not Available Not Available Not Available insulin lispro (U-100) 100 unit/mL subcutane ous solution INJECT UP TO 100 UNITS DAILY PER INSULIN PUMP SETTINGS active Not Available Not Available No t Available methylpre dnisolone 4 mg tablets in a dose pack FOLLOW PACKAGE DIRECTIO NS 09/03 completed Not Available Not Available Not Available ketorolac 60 mg/2 mL intramusc ular solution Inject 1 mL every 6 hours by intramus cular route. 11/13 completed Not Available Not Available Not Available ondansetr on 4 mg disintegr ating tablet TAKE 1 TABLET BY MOUTH EVERY 8 HOURS NEEDED FOR NAUSEA FIRST LINE active Not Available Not Available No t Available Ketostix strips 09/21 completed Not Available Not Available Not Available naproxen 500 mg tablet TAKE 1 TABLET BY MOUTH TWICE A DAY 01/06 completed Not Available Not Available Not Available Microlet Lancet 05/09 completed Not Available Not Available Not Available metoclopr amide 10 mg tablet TAKE 1 TABLET BY MOUTH FOUR TIMES A DAY WITH MEALS AND AT BEDTIME 2024 active Not Available Not Available Not Avai lable amoxicill in 875 mg-potass ium clavulana te [...] TABLET BY MOUTH EVERY DAY AT NIGHT 01/06 completed Not Available Not Available Not Available Sure Comfort Insulin Syringe 0.5 mL 31 gauge x 12/04 completed Not Available Not Available Not Available fenofibra te micronize d 145 mg tablet Take 1 tablet every day by oral route. 11/13 completed Not Available Not Available Not Available sildenafi l (pulmonar y hypertens ion) 20 mg tablet Take 1 tablet by oral route as needed. 01/06 completed Not Available Not Available Not Available omeprazol e 1 QD 10/31 completed Is taking this medicati on Not Available Not Available Not Available tramadol 01/06 completed PRN Not Available Not Available Not Available fenofibra te nanocryst allized 48 [...] Available Not Available Not Available Dexcom G6 Polyethylene Combiner USE TO CHECK GLUCOSE FOUR TIMES DAILY [...] t Available Dexcom G7 Sensor device USE DIRECTED , CHANGE EVERY 10 DAYS active Not Available Not Available No t Available Vitals Date Recorded Body height Body mass index (BMI) Body weight Oxygen saturation Oxygen saturation in Arterial blood by Pulse oximetry Heart rate Respiratory rate Systolic And Diastolic Provider Name and Address Organization Details Last Updated DateTime 5 170.18 cm 26.3 kg/m2 28266.5 2 g 98 % 98 % 92 /min 16 /min 128/78 mm[Hg] Ruth Ann Gramajo MA [facility] 5 11:53:39 Date Recorded Body height Body mass index (BMI) Body weight Respiratory rate Oxygen saturation Oxygen saturation in Arterial blood by Pulse oximetry Heart rate Systolic And Diastolic Provider Name and Address Organization Details Last Updated DateTime 3 170.18 cm 22.7 kg/m2 84090.6 1 g 16 /min 97 % 97 % 95 /min 105/9 mm[Hg] Mary Melendez MA [facility] 3 14:24:52 Date Recorded Body height Body mass index (BMI) Body weight Oxygen saturation Oxygen saturation in Arterial blood by Pulse oximetry Heart rate Respiratory rate Systolic And Diastolic Provider Name and Address Organization Details Last Updated DateTime 5 170.18 cm 23.6 kg/m2 30792.7 3 g 97 % 97 % 74 /min 18 /min 121/73 mm[Hg] Ruth Ann Gramajo MA [facility] 5 14:55:53 Date Recorded Body height Body mass index (BMI) Body weight Oxygen saturation Oxygen saturation in Arterial blood by Pulse oximetry Heart rate Respiratory rate Systolic And Diastolic Provider Name and Address Organization Details Last Updated DateTime 3 170.18 cm 23.1 kg/m2 32812.1 8 g 99 % 99 % 97 /min 16 /min 129/65 mm[Hg] Bella Bedoya MA [facility] 3 15:15:42 Date Recorded Body height Body mass index (BMI) Body weight Body temperature Oxygen saturation Oxygen saturation in Arterial blood by Pulse oximetry Heart rate Systolic And Diastolic Provider Name and Address Organization Details Last Updated DateTime 2 170.18 cm 24.3 kg/m2 81163.8 2 g 97.3 [degF] 99 % 99 % 90 /min 138/84 mm[Hg] Telma david MA [place] - SI 11:31:36 Social History Question Answer Notes LastModified by Organizat ion Details LastModified Time Tobacco Smoking Status Never Smoker Telma Wade MA null, [place] - S[facility] 05/30/2022 11:32:23 Animal Exposure? Yes [email or web address] Informat ion not available 03/23/2015 Are You Blind Or Do You Have Difficulty Seeing? Yes Contacts Information not available 05/30/2022 What Is Your Level Of Caffeine Consumption? Occasional Information not available 01/06/2025 How Much Tobacco Do You Chew? None [...] Type Of Diet Are You Following? REGULAR Information not available 03/23/2015 Are There Any Guns Present In Your Home? Yes [email or web address] Information not available 03/23/2015 What Is Your Home Situation? Relatives Lives With Maternal Grandparents Information not available 05/09/2016 Do You Use Insect Repellent Routinely? Yes [email or web address] Information not available 03/23/2015 Live Alone Or With Others? With Others Information not available 05/06/2020 What Was The Date Of Your Most Recent Tobacco Screening? 01/06/2025 Information not available 01/06/2025 What Is Your Parents' Marital Status? Unmarried [email or web address] Information not available 03/23/2015 Pool Exposure No [email or web address] Information not available 03/23/2015 What Is Your Relationship Status? Single Information not available 09/21/2020 Do You Use Your Seat Belt Or Car Seat Routinely? Yes Sometimes Information not available 10/31/2020 Do You Have Any Siblings? 7 Half Sisters 1 Half Brother Information not available 03/23/2015 Do You Have Smoke And Carbon Monoxide Detectors In Your Home? Yes Information not available 03/23/2015 Are You Passively Exposed To Smoke? Yes [email or web address] Information not available 03/23/2015 How Much Tobacco Do You Smoke? No Information not available 08/04/2019 What Types Of Sporting Activities Do You Participate In? Golf [email or web address] Information not available 03/23/2015 General Stress Level Low Information not available 05/06/2020 Do You Use Sunscreen Routinely? Yes [email or web address] Information not available 03/23/2015 Has Tobacco Cessation Counseling Been Provided? No Information not available 10/31/2020 On What Date Was Tobacco Cessation Counseling Provided? 01/06/2025 Information not available 01/06/2025 Year In School 10 [email or web address] Informatio n not available 05/09/2016 Sex: Male [...] 05/30/2022 What is your exercise level? Moderate [email or web address] Information not available 03/23/2015 Mental Status Question Answer Note LastModified by Organizat ion Details LastModified Time Do you feel stressed (tense, restless, nervous, or anxious, or unable to sleep at night)? [id number] restless Information not available 05/30/2022 Are you or have you been involved with bullying? No [email or web address] Information not available 03/23/2015 Family History Nothing [...] N Anemia N Constipation N Heart Attack ([place]) N Diabetes Y Bedwetting N Heart Problems/Murmur N Seizures/Epilepsy N Asthma N Allergies N Substance Abuse N Hepatitis N Chicken Pox N Heart Failure N Autism Spectrum Disorder (ASD) N Osteoporosis N Immunizations Vaccine Type Date Status Note Provider Nam e and Address Organization Details Recorded Time Meningococcal MCV4O 6 completed Not Available [facility] 08/08/2019 02:32:35 HPV9 6 completed Not Available [facility] 08/08/2019 02:42:35 Influenza, split virus, quadrivalent, PF 6 completed Not Available [facility] 08/08/2019 02:32:34 Hib, unspecified formulation 2 completed Not Available [facility] 01/06/2025 14:43:16 Hep A, pediatric, unspecified formulation 0 completed Not Available [facility] 01/06/2025 14:43:16 Hep B, adolescent or pediatric 0 completed Not Available [facility] 05/07/2023 15:37:51 Hep B, adolescent or pediatric 0 completed Not Available [facility] 05/07/2023 15:37:51 Hep B, adolescent or pediatric 0 completed Not Available [facility] 05/07/2023 15:37:51 DTaP 4 completed Not Available [facility] 05/07/2023 15:37:51 DTaP 0 completed Not Available [facility] 05/07/2023 15:37:51 DTaP 2 completed Not Available [...] 05/07/2023 15:37:51 IPV 0 completed Not Available [facility] 05/07/2023 15:37:51 pneumococcal conjugate PCV 7 1 completed Not Available [facility] 05/07/2023 15:37:51 MMR 4 completed Not Available [facility] 05/07/2023 15:37:51 MMR 2 completed Not Available [facility] 05/07/2023 15:37:51 varicella 0 completed Not Available [facility] 05/07/2023 15:37:51 varicella 2 completed Not Available [facility] 05/07/2023 15:37:51 influenza, unspecified formulation 2 completed Not Available [facility] 05/07/2023 15:37:51 influenza, unspecified formulation 0 completed Not Available [facility] 05/07/2023 15:37:51 influenza, unspecified formulation 4 completed Not Available [facility] 05/07/2023 15:37:51 meningococcal MCV4, unspecified formulation 2 completed Not Available [facility] 05/07/2023 15:37:51 Tdap 0 completed Not Available [facility] 05/07/2023 15:37:51 Hep A, ped/adol, 2 dose 6 completed Not Available [facility] 05/07/2023 15:37:51 Hep A, ped/adol, 2 dose 5 completed Not Available [facility] 05/07/2023 15:37:51 HPV, quadrivalent 4 completed Not Available [facility] 05/07/2023 15:37:51 HPV9 5 completed Not Available [facility] 08/08/2019 02:46:07 Past Encounters Encounter ID Performer Location Encounter Start Date Encounter Closed Date Diagnosis/Indication Diagnosis SNOMED-CT Code Diagnosis ICD10 Code Diagnosis Note [id number] MD María Mendez (Peds) [address] [place] [address] 03/23/2015 11:08:16 03/23/2015 12:29:38 Well child 367196795 Routine adolescent care discussed safety and school performanc e discussed healthy weight with diet and exercise Type 1 ignacio betes mellitus 30277959 Routine f/u with endocrinol ogy. Daily BS monitoring . [id number] MD María Mendez (Peds) [address] [place] [address] 05/09/2016 15:46:21 05/09/2016 17:18:51 Well child 836766747 Z00.129 Routine adolescent care discussed safety and school performanc e discussed healthy weight with diet and exercise Type 1 ignacio betes mellitus 34445129 E10.8 Routine f/u with endocrinol ogy. Daily BS monitoring . [id number] SACHIN Mendez [address] [place] [address] 03/18/2019 11:43:52 03/18/2019 12:43:28 Type 1 diabetes mellitus 10915602 E10.9 [id number] SACHIN Mendez [address] [place] [address] 06/09/2019 17:42:26 06/09/2019 18:58:04 Uncontrolled type 1 diabetes mellitus 142960296 E10.65 [id number] Prashanth Saldana PA-C [facility] [address] [place] [address] 08/04/2019 15:54:01 08/04/2019 17:37:44 Low back pain 330138914 M54.5 Backache w ith radiating pain 135127394 M54.04 [id number] Prashanth Saldana PA-C [facility] [address] [place] [address] 11/20/2019 09:29:53 11/20/2019 19:46:46 [id number] Juan Pemberton MD [facility] [address] [place] [address] 05/06/2020 09:37:24 05/06/2020 12:43:22 Type 1 diabetes mellitus 62599134 E10.9 Secondary erectile dysfunction 542436681 N52.8 Mixed hypercholesterolemia and hypertriglyceridemia 230516281 E78.2 [id number] Juan Pemberton MD [facility] [address] [place] [address] 08/02/2020 10:24:01 08/03/2020 08:12:05 Uncontrolled type 1 diabetes mellitus 523642090 E10.65 [id number] Prashanth Saldana PA-C [facility] [address] [place] [address] 09/21/2020 10:21:28 09/22/2020 15:52:19 Paresthesia of lower extremity 687287789 R20.2 Gastroesop hageal reflux disease without esophagitis 132511089 K21.9 Low back pain 889819197 M54.5 Gynecomastia 7871940 N62 [id number] Juan Pemberton MD [facility] [address] [place] [address] 10/31/2020 14:28:27 11/01/2020 09:28:09 Type 1 diabetes mellitus 78335066 E10.9 Mixed hypercholesterolemia and hypertriglyceridemia 222084166 E78.2 Gastro-eso phageal reflux disease with esophagitis 420628643 K21.00 Viral gastroenteritis 11 9581333 A08.19 [id number] Juan Pemberton MD [facility] [address] [place] [address] 01/10/2021 16:45:57 01/18/2021 07:34:35 [id number] Prashanth Saldana PA-C [facility] [address] [place] [address] 05/09/2021 10:30:53 05/09/2021 11:54:35 Type 1 diabetes mellitus without complication 999416042 E10.9 [id number] Prashanth Saldana PA-C [facility] [address] [place] [address] 06/07/2021 16:49:31 06/07/2021 16:56:56 Nausea and vomiting 15978360 R11.2 Javier ordered Diphenhydr amine, was administer ed and pt was advised if didn't help to go to ER, voiced understand ing [id number] Juan Pemberton MD [facility] [address] [place] [address] 11/13/2021 14:35:16 11/13/2021 15:33:50 Type 1 diabetes mellitus 29858601 E10.9 Body mass index 20-24 - normal 588976891 Z68.23 Plantar fasciitis 217460 003 M72.2 [id number] Prashanth Saldana PA-C [facility] [address] [place] [address] 05/30/2022 11:23:14 05/30/2022 12:00:41 Type 1 diabetes mellitus 11036243 E10.9 Diabetic p eripheral neuropathy 052739689 E11.40 Anxiety 54885061 F41.9 Gastroesop hageal reflux disease without esophagitis 193387865 K21.9 Nausea and vomiting 1692 1999 R11.2 Javier ordered Diphenhydr amine, was administer ed and pt was advised if didn't help to go to ER, voiced understand ing Gastropare sis due to type 1 diabetes mellitus 616906806 E10.43 [id number] Prashanth Saldana PA-C [facility] [address] [place] [address] 12/18/2022 14:17:54 12/19/2022 14:24:56 Type 1 diabetes mellitus 51840897 E10.9 Persistent insomnia 1919 46193 G47.09 Mixed anxi ety and depressive disorder 422387223 F41.8 Overweight 145332282 E66 .3 [id number] Prsahanth Saldana PA-C [facility] [address] [place] [address] 04/16/2023 15:00:29 04/17/2023 14:26:08 Type 1 diabetes mellitus 35335650 E10.9 Marijuana user 456983746 F12.10 Overweight 890090531 E66 .3 [id number] Juan Pemberton MD [facility] [address] [place] [address] 09/03/2024 11:45:12 09/07/2024 14:32:03 Mixed hypercholesterolemia and hypertriglyceridemia 126442984 E78.2 Type 1 ignacio betes mellitus 35067784 E10.9 Body mass index 20-24 - normal 418831196 Z68.23 [id number] Juan Pemberton MD [facility] [address] [place] [address] 01/06/2025 14:41:12 01/08/2025 08:55:40 Type 1 diabetes mellitus 05816318 E10.69 Body mass index 20-24 - normal 135387912 Z68.23 Health Concerns Section Related Observation LastModified by Organization Detai ls LastModified Time None Recorded Concern Status LastModified by Organization Details LastModified Time None Recorded Advance Directives Directive None Recorded Payers Insurance Date Sequence Insurance Name Policy Number Policy Blankenship Covered Member ID Blankenship Member ID Guarantor Name 01/03/2025 1 [facility] (MEDICAID HMO) [id number] Peter Shore [id number] Peter Shore 04/15/2024 1 [place] [facility] OF PUBLIC AID Peter Shore [id number] Peter Shore 04/15/2024 1 [facility] (MEDICAID HMO) [id number] Peter Shore [id number] Peter Shore Notes Date Note Type Note Provider Name and Address Organization Details Recorded Time 05/30/2022 text/html hx of type 1...frequent crashes...hx of gastroparesis...gibson s pain and acidic belching..sugar currently 134...hasnt taken his GERD meds yet... Prashanth Saldana PA-C Attn: Accounting,[address] [place], [address], [facility] 05/30/2022 11:57:53 12/18/2022 text/html says he cannot sleep...watches movies all night...says his stress levels are high...GERD is present....still smokes a lot of weed...says he gets bored and everybody stresses him out without weed Prashanth Saldana PA-C Attn: Accounting[address] [place], [address], [facility] 12/18/2022 14:47:31 04/16/2023 text/html smoked weed.. to ok a nap ..came in and appears stoned.. (when asked about weed grandmother said no and patient said yes)...reports that he has an upcoming appt with endo in april Prashanth Saldana PA-C Attn: Accounting[address] [place], [address], [facility] 04/16/2023 15:47:33 09/03/2024 text/html annual check up...says he quit etoh...says he is living healthier..has gained weight...says blood sugars are better...Nay Hamm MA [facility] 09/03/2024 12:18:11 01/06/2025 text/html has a new GI doctor vs diabetic gastroparesis... Prashanth Saldana PA-C Attn: Accounting[address] [place], [address], [facility] 01/06/2025 15:19:28
--- OUTSIDE RECORDS SUMMARY | 2025-02-01 11:00 | XMS_ITS | Clinical Summary ---
Author Organization [facility] ospital Address [address] [place] [address] Care Team Providers Care Willow Analyst Name Role Phone Con Beltrán MD Unavailable [phone] Prashanth Saldana Primary Care Provider [phone] Sidney Russell MD Unavailable [phone] Allergies Active Allergy Reactions Criticality Noted Date [...] Active pen needle, diabetic 32 gauge x 5/32 needle Use to inject insulin daily. E10.65 50 each 023 Active blood glucose diagnostic (OneTouch Ultra [...] tablet (20 mg total) by mouth daily 025 Active blood-glucose sensor (Dexcom G7 Sensor) device USE DIRECTED, CHANGE EVERY 10 DAYS 3 each 3 025 Active simethicone (GAS-X) 125 mg capsule Take one pill up to 4 times daily as needed for problematic cramping, bloating, gas, or nausea issues. 120 capsule 3 025 Active promethazine (PHENERGAN) 25 mg tablet Take one pill up to 4 times daily for nausea and vomiting unrelieved by Reglan and Zofran. 60 tablet 1 025 Active diphenhydrAMINE 25 mg capsule Take two pills up to 4 times daily to help with nausea/vomiting related to gastroparesis. 240 tablet/cap crista 3 025 Active insulin lispro (HumaLOG) 100 unit/mL vial for injection INJECT UP TO 100 UNITS DAILY PER INSULIN PUMP SETTINGS 30 mL 4 025 Active dicyclomine (BENTYL) 20 mg tablet TAKE [...] with being unresponsive. E10.65 0.4 mL 11 025 Active erythromycin ethylsuccinate (EES) suspension 400 mg/5 mLIndications:Gas troparesis Take 5 mls 10-15 minutes before eating 3 times daily for 28 days. 420 mL 025 Active ondansetron (ZOFRAN) 4 mg tablet 022 [...] . Assessment & Plan (07/10/2022 9:22 AM DRAW MACHINE OPERATOR): This is a chronic condition which is not at goal. Unable to Download as he has a new pump and is not connected on [employer]. Type of insulin pump- tandem T slim [...] of less than 70. Encouraged to contact [email or web address] and have a new pump shipped Discussed [...] statin Assessment & Plan (07/10/2022 9:19 AM DRAW MACHINE OPERATOR): This is a chronic condition which [...] G6 at home. He was seen in [facility], but missed appointment in the adult diabetes [...] prescribed. Assessment & Plan (08/04/2020 3:50 AM DRAW MACHINE OPERATOR): H/o pancreatitis attributed to hypertriglyceridemia. TGs 215 on 05/27/20. -Continue home fenofibrate and atorvastatin Resolved Problems Problem Noted Date Diagnosed Date Resolved Date Leukocytosis 04/18/2021 04/04/2022 Gallbladder sludge 04/05/2021 Marijuana abuse 04/05/2021 04/04/2022 JACK (acute kidney injury) ([facility]) 10/25/2020 04/04/2022 Diarrhea 10/25/2020 04/04/2022 Hypokalemia 08/04/2020 04/04/2022 Assessment & Plan (08/04/2020 3:59 AM DRAW MACHINE OPERATOR): K to 3.2 after hyperglycemia protocol s/p 40 mEq of IV K in ED. -CTM w/ BMP Nausea and vomiting 07/05/2020 04/04/20 22 Assessment & Plan (08/04/2020 4:10 AM DRAW MACHINE OPERATOR): Patient has chronic N/V, now presenting w/ 3 days of persistent N/V. No abdominal pain. Lipase 15 on presentation. +MJ use. DDx: cyclic vomiting vs. diabetic gastroparesis. -Zofran prn -Pepcid -Can trial Reglan -Encourage MJ cessation Assessment & Plan (07/05/2020 4:24 PM DRAW MACHINE OPERATOR): Etiology likely DKA. Other considerations are [...] 04/04/2022 Assessment & Plan (07/05/2020 4:26 PM DRAW MACHINE OPERATOR): Etiology likely DKA. pH is 7.50 [...] 04/04/2022 Assessment & Plan (08/04/2020 3:41 AM DRAW MACHINE OPERATOR): Patient multiple past hospitalizations for DKA, most recently in June presenting w/ DKA after 3 days of persistent N/V. BG was 338 w/ AG 18, bicarb 21, ketones 3.2. BG now in the 100s and AG close after hyperglycemia protocol. A1C 10.5 08/02/20. Is a patient of Dr. Swift at [facility] medical group in [place]. Last seen on 07/25 with plan for [...] f/u. Assessment & Plan (07/05/2020 4:21 PM DRAW MACHINE OPERATOR): DKA (ketones 1.4, BG 242, urine [...] insulin regimen is needed at this time. rn diabetes educator have talked to Peter and family [...] with diabetes mellitus due to underlying condition (CMS/[facility]) 04/04/2022 EKG abnormality 04/04/2022 Choledocholithiasis 04/04/20 Abdominal pain 04/04/2022 Encounters Date Type Department Care Team Description 01/29/20 25 Telephone [facility] Gastroenterology at [address] [place] [address] Cristin Tejada LPN 01/29/20 25 Telephone [facility] Gastroenterology [address] [place] [address] Medical Office Building [address], [address] [place] [address] Carmen Irving RN IOV scheduling 01/27/20 25 1:30 PM CDT Office Visit [facility] Gastroenterology at [address] [place] [address] Terrence Fitch MD Gastroparesis (Primary Dx); Gastroesophageal reflux disease without esophagitis; Marijuana use 01/27/20 25 10:00 AM CDT Office Visit [facility] Diabetes Endocrine Care at [address] [place] [address] Nay Alford, REYNA Type 1 diabetes mellitus with hyperglycemia (HCC) (Primary Dx); Hypoglycemia; Mixed hyperlipidemia; Tandem T slim Insulin pump in place; Gastroparesis 01/07/20 25 8:00 AM CDT Anesthesia Event [address] [address] Ronaldo Jerome DO Entzeroth, Timothy, CRNA 01/07/20 25 8:00 AM CDT - 01/07/20 25 8:30 AM CDT Surgery [address] [address] Terrence Fitch MD Not Performed ESOPHAGOGASTRODUODENOSCOPY 01/07/20 25 7:27 AM CDT - 01/07/20 25 8:07 AM CDT Hospital Encounter [address] [address] Terrence Fitch MD Discharge Disposition: Discharge to home or self care 01/07/20 25 Telephone [facility] Gastroenterology at [address] [place] [address] Arin Fischer 01/02/20 Results Follow-Up [facility] Gastroenterology at [address] [place] [address] Peter Rivera NP NM Gastric Emptying Study 12/31/19 25 10:13 AM CDT - 12/31/19 25 11:59 PM CDT Hospital Encounter [address] [address] Discharge Disposition: Discharge to home or self care 12/31/19 25 10:13 AM CDT - 12/31/19 25 11:59 PM CDT Hospital Encounter [address] [address] Discharge Disposition: Discharge to home or self care 12/31/19 25 10:13 AM CDT - 12/31/19 25 11:59 PM CDT Hospital Encounter [address] [address] Discharge Disposition: Discharge to home or self care 12/31/19 25 10:13 AM CDT - 12/31/19 25 11:59 PM CDT Hospital Encounter [address] [address] Discharge Disposition: Discharge to home or self care 12/31/19 10:13 AM CDT - 12/31/19 11:59 PM CDT Hospital Encounter [facility] [address] [place] [address] Nausea and vomiting, unspecified vomiting type; Type 1 diabetes mellitus with hyperglycemia (HCC) Discharge Disposition: Discharge to home or self care 12/26/19 Telephone [facility] Gastroenterology at [address] [place] [address] Radhika Cunningahm EGD Reschedule 12/22/19 Telephone [facility] Gastroenterology at [address] [place] [address] Evelin Fischer MA 12/18/19 8:15 AM CDT Office Visit [facility] Gastroenterology at [address] [place] [address] Peter Rivera NP Nausea and vomiting, unspecified vomiting type (Primary Dx); Abnormal CT scan, esophagus; Gastroesophageal reflux disease, unspecified whether esophagitis present; Type 1 diabetes mellitus with hyperglycemia (HCC); Tandem T slim Insulin pump in place; Marijuana use; Tobacco use disorder 12/18/19 Telephone [facility] Gastroenterology at [address] [place] [address] Cristin Tejada LPN 12/03/19 4:04 AM CDT - 12/03/19 5:56 PM CDT Hospital Encounter [facility] ICU 1 [place] [address] Marcelina Cleaning MD Masetti, Paolo, MD Type 1 diabetes mellitus with ketoacidosis without coma (HCC) (Primary Dx); Gastroparesis; Nausea and vomiting, unspecified vomiting type Discharge Disposition: Left Against Medical Advice 12/01/19 7:54 AM CDT - 12/01/19 2:36 PM CDT Hospital Encounter [facility] ICU [address] [place] [address] Marcelina Cleaning MD Masetti, Paolo, MD Diabetic ketoacidosis without coma associated with type 1 diabetes mellitus (HCC) (Primary Dx); Hyperemesis Discharge Disposition: Left Against Medical Advice 11/06/19 Telephone [facility] Diabetes Endocrine Care at [address] [place] [address] Nay Alford, CLERGY MEMBER 11/05/19 Telephone [facility] Gastroenterology at [address] [place] [address] Radhika Cunningham 11/05/19 Telephone [facility] Diabetes Endocrine Care at [address] [place] [address] Nay Alford, REYNA 11/04/19 1:15 PM CDT - 11/04/19 2:44 PM CDT Emergency [facility] Emergency Department 1 [place] [address] Discharge Disposition: Left without being seen from Last 3 Months Surgical History Surgery Date Site/Laterality Comments ESOPHAGOGASTRODUODENOSCOPY 01/06/2025 Medical History Medical History Date Comments Type 1 diabetes mellitus (HCC) D iabetes type 1; Comments: ALVAREZ 11/23/2015 - Hx Other Medical high lipids; Co mments: ALVAREZ 11/23/2015 - Hx Other Medical pancreatitis; C omments: ALVAREZ 11/23/2015 - Pancreatitis Asthma Hypertension Hyperlipidemia Diarrhea [...] drink = 0.6 oz pur e alcohol) [facility] [employer] Answer Date Recorded In the past 12 [...] often do you attend chur ch or faith services? Never 12/02/2024 Do you belong to any clubs o r organizations such as latter day groups, unions, fraternal or athletic groups, or [...] any time in the past [address] [facility], were you homeless or living [...] on file Legal Sex Male 4:12 AM DRAW MACHINE OPERATOR Gender Identity Not on file Sexual [...] 01/26/2025 1:22 PM CDT Plan of Treatment Health Maintenance Due Date Last Done Comments Hepatitis C Screening 1999 Pneumococcal vaccine <65 (1 of 1 - PPSV23) 2005 10/24/2000 Regular Well Visit/Exam 18-64 2017 Depression Screening 10/17/2019 10/16/2018 DTaP/Tdap/Td Vaccine (7 - Td or Tdap) 04/21/2020 04/21/2010, 09/08/2003, 08/18/2001, Additional history exists Foot Exam 02/11/2025 02/12/2024, 04/21, 02/05/2023, Additional history exists Influenza Vaccine (#1) 2025 6, 05/27/2014, 04/17/2012, Additional history exists Hemoglobin A1C 06/02/2025 11/30/2024, 08/22, 02/12/2024, Additional history exists Albumin Creatinine Ratio, Urine 10/27/2025 10/27/2024, 02/12/2024, 12/28/2017 Lipid Panel 10/27/2025 10/27/2024, 01/20, 07/10/2022, Additional history exists TSH Level 10/27/2025 10/27/2024, 01/20, 04/17/2019, Additional history exists eGFR 12/02/2025 12/02/2024, 11/19, 12/02/2024, Additional history exists Dilated Eye Exam 01/26/2026 01/26/2025 Hepatitis B Screening Completed 03/13/2000 , 03/13/2000, [...] mg/dL Blood 01/26/2025 10:0 4 AM CDT Nay Alford NP POINT OF CARE TEST ORDERABLES F inal Result * (ABNORMAL) RetinaVue Scanner - OU - Both Eyes (01/26/2025) Anatomical Region Laterality Modality Head Fundus Photograp hy 01/26/2025 Nay Alford NP OPHTH PHOTOGRAPHY Final Result * POCT glucose (01/06/2025 7:53 AM CDT) Glucose, POC 117 70 - 199 mg/dL Blood 01/06/2025 7:53 AM CDT 01/06/2025 7:53 AM CDT Terrence Fitch MD LAB POCT ORDERABLES - DEVICE Fin al Result [facility] ([place]) 1 [facility] Department [place] [address] * NM Gastric Emptying Study [...] Shaquille Contreras M.D. LB: ISRA[place] Report ID: [id number] Reading Location: [id number] Procedure Note Shaquille Contreras MD - 12/30/2024 [...] Shaquille Contreras M.D. LB: LB Report ID: [id number] Reading Location: [id number] Peter Rivera CLERGY MEMBER IMG NM PROCEDURES F inal Result * Infection Prevention MRSA Only (Staphylococcus aureus) PCR Nasal (12/02/2024 4:48 PM CDT) PCR Scrn, Methicillin resistant Staphylococcus aureus (MRSA) Not Detected Not Detected Comment: Interpretive Data Testing performed using Nucleic Acid Amplification with the CTMG Xpert MRSA NxG Assay. This assay detects target DNA from mecA, mecC and the SCCmec insertion site of Staphylococcus aureus using Real-Time PCR and has been cleared by the FDA. Performance characteristics have been verified by the [facility]. Current Interpretive Data was last revised on 2022 Nasal 12/02/2024 4:48 PM CDT 12/02/2024 4:55 PM CDT Juan Car MD LAB MICROBIOLOGY - [facility] ADEN NYE Final Result [facility] [place] 1 [facility] Department [place] [address] * eGFR (12/02/2024 4:43 PM CDT) eGFR [...] LAB BLOOD ORDERABLES Final Resu lt ALYSSA [facility] ([place]) 1 [facility] [place] [address] * (ABNORMAL) Basic metabolic panel (12/02/2024 4:43 [...] ([place]) Glucose 341(H) 70 - 199 mg/dL [facility] ([place] Comment: Interpretive Data Fasting glucose [...] BLOOD ORDERABLES Final Resu lt [facility]SSA [facility] [place]) 1 [facility] [employer] [place] [address] * (ABNORMAL) POCT glucose (12/02/2024 4:29 PM CDT) Glucose, POC 309(H) 70 - 199 mg/dL Blood 12/02/2024 4:29 PM CDT 12/02/2024 4:29 PM CDT Juan Car MD LAB POCT ORDERABLES - DEVICE Fi nal Result Performing Organization Address City/[facility]/ZIP Co de Phone Number [facility]SSA [facility] ([place]) 1 [facility] [employer] [place] [address] * POCT glucose (12/02/2024 12:13 PM CDT) Glucose, POC 156 70 - 199 mg/dL Blood 12/02/2024 12:1 3 PM CDT 12/02/2024 12:13 PM CDT Juan Car MD LAB POCT ORDERABLES - DEVICE Fi nal Result Performing Organization Address City/[facility] Co de Phone Number AL[facility]SSA [facility] [place]) 1 [facility] [employer] [place] [address] * eGFR (12/02/2024 10:25 AM CDT) eGFR [...] MD LAB BLOOD ORDERABLES Final Resu lt [facility] ([place]) 1 [facility] [place] [address] * Basic metabolic panel (12/02/2024 10:25 AM [...] ORDERABLES Final Resu lt Performing Organization Address [facility] Co de Phone Number [facility] ([place]) 1 [facility] [employer] [place] [address] * POCT glucose (12/02/2024 9:11 AM CDT) Glucose, POC 70 70 - 199 mg/dL Blood 12/02/2024 9:11 AM CDT 12/02/2024 9:11 AM CDT us Juan Car MD LAB POCT ORDERABLES - DEVICE Fi nal Result Performing Organization Address [facility] de Phone Number [facility] ([place]) 1 [facility] [employer] [place] [address] * (ABNORMAL) POCT glucose (12/02/2024 8:55 AM CDT) Glucose, POC 61(L) 70 - 199 mg/dL Blood 12/02/2024 8:55 AM CDT 12/02/2024 8:55 AM CDT us Juan Car MD LAB POCT ORDERABLES - DEVICE Fi nal Result Performing Organization Address [facility] Co de Phone Number [facility] ([place]) 1 [facility] [employer] [place] [address] * XR Chest 1 Vw Portable (12/02/2024 [...] Shaquille Contreras M.D. LB: LB Report ID: [id number] Reading Location: [id number] Procedure Note Shaquille Contreras MD - 12/02/2024 [...] Shaquille Contreras M.D. LB: LB Report ID: [id number] Reading Location: [place] [address] us Marcelina Cleaning MD IMG XR PROCEDURES Final R esult * ECG 12 lead (12/02/2024 7:50 AM CDT) 12/02/2024 7:50 AM CDT [facility] - 12/02/2024 8:36 AM CDT Vent Rate: 90 bpm RR Interval: 665 msec OK Interval: 159 msec QRS Duration: 85 msec QT Interval: 360 msec QTC Interval: 407 msec P-R-T [place]: 84 - 76 - 76 degrees IMPRESSION: SINUS RHYTHM NONSPECIFIC T-WAVE ABNORMALITY BORDERLINE ECG NO CHANGE FROM PREVIOUS TRACING NOTED Electronically Signed By: Matt Mercado MD Marcelina Cleaning MD ECG ORDERABLES Final Res ult [facility] * (ABNORMAL) Urinalysis reflex to microscopic and [...] tendency for uric acid stone formation. Source: [facility] [employer] Current Interpretive Data was last revised on [...] 6:15 AM CDT Marcelina Cleaning MD LAB MICROBIOLOGY - GENERA L ORDERABLES Final Result [facility] ([place]) 1 [facility] Department [place] [address] * (ABNORMAL) Urinalysis, microscopic only (12/02/2024 6:07 AM CDT) WBC, ur 0-5 0 - 5 /HPF RBC, ur 11-20(A) 0 - 2 /HPF [facility] ([place]) Mucous, ur Present(A) [facility] A ([place]) Hyaline casts, ur 1-5 0 - 10 /LPF [facility] ([place]) Culture Reflex Comment Reflex conditions for urine culture (WBC >10) not met. [facility] ([place]) Urine 12/02/2024 6:07 AM CDT 12/02/2024 6:15 AM CDT Jen Roth MD LAB URINE ORDERABLES Final Resul t Performing Organization Address [facility] Co de Phone Number [facility] ([place]) [address] [place] [address] [employer] [place] [address] * (ABNORMAL) Blood gas, venous (12/02/2024 6:07 AM CDT) Pathologist [facility] pH, Venous 7.44(H) 7.32 - 7.43 PCO2, Venous 34(L) 40 - 50 mmHg [facility] ([place]) PO2, Venous 86 mmHg [facility] A ([place]) HCO3 Venous, Calculated 23 20 - 30 mmol/L [facility] ([place]) BE, venous 0 mmol/L [facility] H ([place]) Comment: Interpretive Data No Reference Range Established Current Interpretive Data was last revised on 2017. Blood 12/02/2024 6:07 AM CDT 12/02/2024 6:15 AM CDT us Marcelina Cleaning MD LAB BLOOD ORDERABLES Stephie l Result [facility] ([place]) [address] [place] [address] of [employer] [place] [address] * Influenza A/B, RSV, and COVID-19 PCR Nasopharyngeal (12/02/2024 4:28 AM CDT) COVID-19 RNA Negative Negative Influenza A RNA Negative Negative [facility] ([place]) Influenza B RNA Negative Negative [facility] ([place]) RSV RNA Negative Negative [facility] ([place]) Comment: Interpretive data: Testing performed by [facility]. This test is performed using the CTMG Xpert Xpress CoV-2/Flu/RSV plus assay. This is a multiplex, real- time reverse transcriptase PCR assay intended for the qualitative detection of nucleic acid from SARS-CoV-2, influenza A, influenza B, and respiratory syncytial virus. This assay has been cleared by the [place] Food and Drug administration. The performance characteristics have been verified by the [facility]. Results must be considered in the clinical context, and a negative result does not rule out infection. Interpretive Data last revised 2023 Nasopharyngeal 12/02/2024 4: 28 AM CDT 12/02/2024 4:30 AM CDT Narrative [facility] ([place]) - 12/02/2024 5:15 AM CDT Is the Patient experiencing symptoms consistent with COVID?->Yes us Jen Roth MD LAB MICROBIOLOGY - GENERAL ORDER DENIS Final Result AL[facility]SSA [facility] ([place]) 1 [facility] Department [place] [address] * eGFR (12/02/2024 3:24 AM CDT) eGFR [...] MD LAB BLOOD ORDERABLES Stephie sasha Result [facility] ([place]) 1 [facility] [place] [address] * (ABNORMAL) Differential, auto (12/02/2024 3:24 AM [...] MD LAB BLOOD ORDERABLES Stephie baez Result [facility] 1 [facility] [place] [address] * (ABNORMAL) CBC with auto differential (12/02/2024 [...] RDW SD 40.2 35.7 - 48.1 fL [facility] ([place]) NRBC abs 0.00 0.00 - 0.01 K/cumm [facility] ([place]) Blood Venous blood specimen / Unknown 12/02/2024 3:24 AM CDT 12/02/2024 3:35 AM CDT Marcelina Cleaning MD LAB BLOOD ORDERABLES Stephie l Result AL[facility] ([place]) 1 [facility] [place] [employer] [place] [address] * Lipase (12/02/2024 3:24 AM CDT) Pathologist [facility] Lipase 12 10 - 99 Units/L Blood Venous blood specimen / Unknown 12/02/2024 3:24 AM CDT 12/02/2024 3:35 AM CDT Marcelina Cleaning MD LAB BLOOD ORDERABLES Stephie l Result Performing Organization Address [facility] de Phone Number [facility] ([place]) 1 [facility] [employer] [place] [address] * (ABNORMAL) Comprehensive metabolic panel (12/02/2024 3:24 AM CDT) [facility] Sodium 141 135 - 145 mmol/L Potassium, pl 3.9 3.3 - 4.9 mmol/L [facility] ([place]) Chloride 98 97 - 110 mmol/L [facility] ([place]) CO2 22 22 - 32 mmol/L [facility] ([place]) Anion gap 21(H) 2 - 15 mmol/L [facility] ([place]) BUN 17 6 - 25 mg/dL [facility] ([place]) Creatinine 0.95 0.80 - 1.30 mg/dL [facility] ([place]) Glucose 121 70 - 199 mg/dL [facility] ([place]) Comment: Interpretive Data Fasting [...] MD LAB BLOOD ORDERABLES Stephie l Result [facility] ([place]) 1 [facility] [employer] [place] [address] * POCT glucose (12/02/2024 3:21 AM CDT) [facility] Signature Glucose, POC 111 70 - 199 mg/dL Blood 12/02/2024 3:21 AM CDT 12/02/2024 3:21 AM CDT us Notinfile Unknown LAB POCT ORDERABLES - DEVICE F inal Result Performing Organization Address City/[facility]/ZIP Co de Phone Number [facility] ([place]) 1 [facility] [employer] [place] [address] * POCT glucose (11/30/2024 1:58 PM CDT) Pathologist [facility] Glucose, POC 177 70 - 199 mg/dL Blood 11/30/2024 1:58 PM CDT 11/30/2024 1:58 PM CDT us Juan Car MD LAB POCT ORDERABLES - DEVICE Fi nal Result [facility]A [facility] ([place]) [address] [place] [address] of [employer] [place] [address] * Lactate (11/30/2024 12:51 PM CDT) [facility] Lactate 0.8 0.7 - 2.0 mmol/L Blood 11/30/2024 12:5 1 PM CDT 11/30/2024 12:57 PM CDT Juan Car MD LAB BLOOD ORDERABLES Final Resu lt Performing Organization Address City/[facility] Co de Phone Number [facility] ([place]) 1 [facility] [place] [address] * eGFR (11/30/2024 12:51 PM CDT) [facility] eGFR >90 >=60 mL/min/1. 73 m2 [...] Final Resu lt [facility] ([place]) 1 [facility] [employer] [place] [address] * Beta-hydroxybutyrate (11/30/2024 12:51 PM CDT) Beta-Hydroxybut yrate 0.5 <=0.5 mmol/L Comment:Testing performed by : [facility], [address] [place] [address], [id number] Blood 11/30/2024 12:5 1 PM CDT 11/30/2024 10:37 PM CDT Juan Car MD LAB BLOOD ORDERABLES Final Resu lt Performing Organization Address [facility]/ZIP Co de Phone Number [facility] ([place]) 1 [facility] [employer] [place] [address] * Basic metabolic panel (11/30/2024 12:51 PM CDT) Sodium 138 135 - 145 mmol/L Potassium, pl 4.5 3.3 - 4.9 mmol/L [facility] Chloride 103 97 - 110 mmol/L [facility] ([place]) CO2 22 22 - 32 mmol/L [facility] ([place] Anion gap 13 2 - 15 mmol/L [facility] BUN 19 6 - 25 mg/dL [facility] Creatinine 0.91 0.80 - 1.30 mg/dL [facility] ([place]) Glucose 192 70 - 199 mg/dL [facility] ([place]) [...] 8.8 8.5 - 10.3 mg/dL [facility] ([place]) Blood 11/30/2024 12:5 1 PM CDT 11/30/2024 12:57 PM CDT Juan Car MD LAB BLOOD ORDERABLES Final Resu lt AL[facility]SSA [facility] ([place]) 1 [facility] [address] * POCT glucose (11/30/2024 12:48 PM CDT) Glucose, POC 176 70 - 199 mg/dL Blood 11/30/2024 12:4 8 PM CDT 11/30/2024 12:48 PM CDT Juan Car MD LAB POCT ORDERABLES - DEVICE Fi nal Result Performing Organization Address [facility] Co de Phone Number ALYSSA [facility] ([place]) 1 [facility] [employer] [place] [address] * POCT glucose (11/30/2024 11:45 AM CDT) Glucose, POC 143 70 - 199 mg/dL Blood 11/30/2024 11:4 5 AM CDT 11/30/2024 11:45 AM CDT Juan Car MD LAB POCT ORDERABLES - DEVICE Fi nal Result Performing Organization Address City/[facility]/ZIP Co de Phone Number ALYSSA [facility] ([place]) 1 [facility] [employer] [place] [address] * POCT glucose (11/30/2024 10:30 AM CDT) Glucose, POC 124 70 - 199 mg/dL Blood 11/30/2024 10:3 0 AM CDT 11/30/2024 10:30 AM CDT us Juan Car MD LAB POCT ORDERABLES - DEVICE Fi nal Result AL[facility]SSA [facility] ([place]) 1 [facility] [place] [address] * CT Abdomen Pelvis W Contrast (11/30/2024 [...] Kurt Ferro M.D. MM: MM Report ID: [id number] Reading Location: [id number] Procedure Note Kurt Ferro MD - 11/30/2024 [...] Kurt Ferro M.D. MM: MM Report ID: [id number] Reading Location: [place] [address] Marcelina Cleaning MD IMG CT PROCEDURES Final R esult * Influenza A/B, RSV, and COVID-19 PCR Nasopharyngeal (11/30/2024 8:32 AM CDT) COVID-19 RNA Negative Negative Influenza A RNA Negative Negative [facility] ([place]) Influenza B RNA Negative Negative [facility]) RSV RNA Negative Negative [facility] ([place]) Comment: Interpretive data: Testing performed by [facility]. This test is performed using the [employer] Xpert Xpress CoV-2/Flu/RSV plus assay. This is a multiplex, real- time reverse transcriptase PCR assay intended for the qualitative detection of nucleic acid from SARS-CoV-2, influenza A, influenza B, and respiratory syncytial virus. This assay has been cleared by the [place] Food and Drug administration. The performance characteristics have been verified by the [facility]. Results must be considered in the clinical context, and a negative result does not rule out infection. Interpretive Data last revised 2023 Nasopharyngeal 11/30/2024 8: 32 AM CDT 11/30/2024 8:38 AM CDT Narrative [facility] ([place]) - 11/30/2024 9:16 AM CDT Is the Patient experiencing symptoms consistent with COVID?->Yes us Marcelina Cleaning MD LAB MICROBIOLOGY - GENERA L ORDERABLES Final Result AL[facility]SSA [facility] ([place]) 1 [facility] [place] [address] * (ABNORMAL) Sepsis Lactate w/ Reflex (11/30/2024 8:32 AM CDT) Sepsis Lactate 3.4(H) 0.7 - 2.0 mmol/L Blood 11/30/2024 8:32 AM CDT 11/30/2024 8:35 AM CDT us Marcelina Cleaning MD LAB BLOOD ORDERABLES Stephie l Result Performing Organization Address [facility] Co de Phone Number ALYSSA [facility] ([place]) 1 [facility] [place] [address] * eGFR (11/30/2024 8:32 AM CDT) eGFR [...] BLOOD ORDERABLES Stephie baez Result [facility] ([place]) 1 [facility] [place] [address] * (ABNORMAL) Differential, auto (11/30/2024 8:32 AM [...] Neutrophil pct 70.2 % [facility] ([place]) Comment: Interpretive Data Percent cell count reference [...] Stephie baez Result [facility] ([place]) 1 [facility] [place] [address] * (ABNORMAL) CBC with auto differential (11/30/2024 [...] BLOOD ORDERABLES Stephie l Result AL[facility]SSA [facility] ([place]) 1 [facility] [employer] [place] [address] * Magnesium (11/30/2024 8:32 AM CDT) Magnesium 2.2 1.4 - 2.5 mg/dL Blood 11/30/2024 8:32 AM CDT 11/30/2024 10:34 AM CDT Marcelina Cleaning MD LAB BLOOD ORDERABLES Stephie l Result Performing Organization Address [facility] Co de Phone Number AL[facility]SSA [facility] ([place]) 1 [facility] [employer] [place] [address] * (ABNORMAL) Hemoglobin A1c (11/30/2024 8:32 AM CDT) Hgb A1C 8.1(H) 4.0 - 5.6 % Estimated Average Glucose 186 mg/dL [facility] ([place]) Comment: The ADA recommends reporting an estimated Average Glucose (eAG) with all Hemoglobin A1c results using the equation derived from a study of 507 normal and diabetic adults. Minority populations were underrepresented and children were not included. (Diabetes Care 31:4361-6376, 2008). The eAG is not equivalent to a fasting glucose. Blood 11/30/2024 8:32 AM CDT 11/30/2024 8:57 AM CDT Marcelina Cleaning MD LAB BLOOD ORDERABLES Stephie l Result [facility]A [facility] ([place]) 1 [facility] [employer] [place] [address] * Blood gas, venous (11/30/2024 8:32 AM CDT) pH, Venous 7.39 7.32 - 7.43 PCO2, Venous 42 40 - 50 mmHg [facility] ([place]) PO2, Venous 49 mmHg [facility] ([place]) Comment: Interpretive Data No reference range established. Current interpretive data was last revised 2017. HCO3 Venous, Calculated 25 20 - 30 mmol/L [facility] ([place]) BE, venous 0 mmol/L [facility] ([place]) Comment: Interpretive Data No Reference Range Established Current Interpretive Data was last revised on 2017. Blood 11/30/2024 8:32 AM CDT 11/30/2024 8:49 AM CDT Marcelina Cleaning MD LAB BLOOD ORDERABLES Stephie baez Result [facility] ([place]) 1 [facility] Department [place] [address] * (ABNORMAL) Comprehensive metabolic panel (11/30/2024 8:32 AM CDT) Sodium 139 135 - 145 mmol/L Potassium, pl 3.8 3.3 - 4.9 mmol/L [facility] ([place]) Chloride 101 97 - 110 mmol/L [facility] ([place]) CO2 21(L) 22 - 32 mmol/L [facility] ([place]) Anion gap 17(H) 2 - 15 mmol/L [facility] ([place]) BUN 21 6 - 25 mg/dL [facility] ([place]) Creatinine 1.08 0.80 - 1.30 mg/dL [facility] ([place]) Glucose 224(H) 70 - 199 mg/dL [facility] ([place]) Comment: Interpretive Data Fasting [...] LAB BLOOD ORDERABLES Stephie l Result ALYSSA [facility] ([place]) 1 [facility] [place] [address] * ECG 12 lead (11/30/2024 8:31 AM CDT) 11/30/2024 8:31 AM CDT Narrative [facility] - 11/30/2024 8:49 AM CDT Vent Rate: 92 bpm RR Interval: 649 msec OK Interval: 162 msec QRS Duration: 94 msec QT Interval: 349 msec QTC Interval: 399 msec P-R-T [place]: 78 - 60 - 72 degrees IMPRESSION: SINUS RHYTHM POSSIBLE LEFT ATRIAL ENLARGEMENT [-0.1mV P-WAVE IN V1/V2] BORDERLINE ECG compared to prior EKG no changes Electronically Signed By: Keny Rock MD [facility] Marcelina Cleaning MD ECG ORDERABLES Final Res ult Performing Organization Address City/[facility]/ZIP Co de Phone Number [facility] [employer] [facility] * POCT glucose (11/30/2024 8:13 AM CDT) Glucose, POC 193 70 - 199 mg/dL Blood 11/30/2024 8:13 AM CDT 11/30/2024 8:13 AM CDT Marcelina Cleaning MD LAB POCT ORDERABLES - DEV ICE Final Result Performing Organization Address [facility]/ZIP Co de Phone Number ALYSSA [facility] ([place]) 1 [facility] [employer] [place] [address] * Sepsis Lactate w/ Reflex (11/03/2024 1:33 PM CDT) Pathologist [facility] Sepsis Lactate 1.2 0.7 - 2.0 mmol/L Blood 11/03/2024 1:33 PM CDT 11/03/2024 1:36 PM CDT Chato Daniels MD LAB BLOOD ORDERABLES Final Res ult Performing Organization Address [facility] de Phone Number ALYSSA [facility] ([place]) 1 [facility] [employer] [place] [address] * Blood gas, venous (11/03/2024 1:33 PM CDT) Pathologist [facility] pH, Venous 7.37 7.32 - 7.43 PCO2, [...] ORDERABLES Final Res ult Performing Organization Address [facility] Co de Phone Number ALYSSA [facility] ([place]) [address] [place] [address] * eGFR (11/03/2024 1:31 PM CDT) Pathologist [facility] eGFR >90 >=60 mL/min/1. 73 m2 Comment: [...] MD LAB BLOOD ORDERABLES Final Res ult [facility] ([place]) 1 [facility] [place] [address] * Differential, auto (11/03/2024 1:31 PM CDT) Pathologist [facility] Neutrophil abs 2.63 1.50 - 6.50 K/cumm Imm gran abs 0.01 0.00 - 0.10 K/cumm [facility] ([place]) Lymphocyte abs 2.35 0.80 - 3.30 K/cumm [facility] ([place]) Monocyte abs 0.57 0.20 - 0.80 K/cumm [facility] ([place]) Eosinophil abs 0.02 0.00 - 0.50 K/cumm [...] Res ult [facility]A [facility] ([place]) 1 [facility] [place] [address] * CBC with auto differential (11/03/2024 1:31 [...] RDW SD 44.2 35.7 - 48.1 fL [facility] NRBC abs 0.00 0.00 - 0.01 K/cumm [facility] ([place]) Blood Venous blood specimen / Unknown 11/03/2024 1:31 PM CDT 11/03/2024 1:37 PM CDT Chato Daniels MD LAB BLOOD ORDERABLES Final Res ult [facility] ([place]) 1 [facility] [address] * Lipase (11/03/2024 1:31 PM CDT) Lipase 11 10 - 99 Units/L Blood Venous blood specimen / Unknown 11/03/2024 1:31 PM CDT 11/03/2024 1:37 PM CDT Chato Daniels MD LAB BLOOD ORDERABLES Final Res ult [facility] 1 [facility] [employer] [place] [address] * Comprehensive metabolic panel (11/03/2024 1:31 PM [...] MD LAB BLOOD ORDERABLES Final Res ult [facility] ([place]) 1 [facility] [place] [address] * Thyroid Function Nye (10/27/2024 8:51 AM CDT) TSH 1.51 0.30 - 4.20 mcIUnit/mL Blood 10/27/2024 8:51 AM CDT 10/27/2024 2:50 PM CDT Nay Alford CLERGY MEMBER LAB BLOOD ORDERABLES Final Resu lt Performing Organization Address [facility] de Phone Number [facility] [address] [employer] [place] [address] * (ABNORMAL) Albumin Creatinine Ratio, Urine (10/27/2024 8:51 AM CDT) Albumin Ur 96.3 mg/L Comment: Interpretive Data No reference range established. Current interpretive data was last revised 2018. Creatinine Ur 124.7 mg/dL [facility] Comment: Interpretive Data No reference range established. Current interpretive data was last revised 2018. Albumin Creatinine Ratio, Ur 77(H) 1 - 29 mg/g [facility] Urine 10/27/2024 8:51 AM CDT 10/27/2024 2:50 PM CDT Nay Alford CLERGY MEMBER LAB URINE ORDERABLES Final Resu lt Performing Organization Address [facility] de Phone Number [facility] [address] [employer] [place] [address] * (ABNORMAL) Lipid panel (10/27/2024 8:51 AM [...] NP LAB BLOOD ORDERABLES Final Resu lt [facility] [address] Department [place] [address] * DIABETES FOOT EXAM (04/08/2018) [facility] Diabetic Foot Exam Normal Historical Provider MD HEALTH MAINTENANCE Final Result from Last 3 Months or Most Recently Relevant to Health Maintenance Insurance [facility] [address] [place] [place] [address] Advance Directives For more information, please contact: [phone] Documents on File Type Date Recorded Patient Pump Tender Expl anation ADVANCE DIRECTIVE 05/26/2020 6:51 [...] 11:49 AM 10/18/2024 1:28 PM Care Teams Willow Analyst Relationship Specialty Start Date End Date Prashanth Saldana PA [address] [place] [address] PCP - General Family Practice 05/25/20 Con Beltrán MD Referring Physician Pediatric Endocrinology 12/20/18 Sidney Russell MD [address] [place] [address] Consulting Physician Gastroenterology 04/19/21
[2025-02-01 11:05] VITALS: BP 128/83; PULSE 81; RESP 16; TEMP 36.8; O2SAT 99
--- NOTE | 2025-02-01 11:13 | ED.ABDPAIN ---
HPI - Abdominal Pain General Chief Complaint: Abdominal Pain Stated Complaint: gastroperisis flair up Time Seen by Provider: 02/01/25 11:05 Source: patient and RN notes reviewed Mode of arrival: ambulatory Limitations: no limitations History of Present Illness HPI narrative: 24-year-old male presents Express Care complaining of nausea, vomiting, epigastric pain since this morning. Patient reports having history of gastroparesis states he had a flare-up this morning. Patient states he is feeling better now. Patient missed works today because of it. Patient has not tried drinking fluids yet but states he is no longer nauseous. Patient denies any diarrhea, bloody stools, vomiting blood, fevers, body aches, chills, upper respiratory symptoms, cough, chest pain, shortness breath, or other symptoms. Patient also history of type 1 diabetes. Patient is supposed to see a housing management officer specialist this month for his symptoms. Related Data Home Medications ?Medication ?Instructions ?Recorded ?Confirmed ?Last Taken ?Type atorvastatin 20 mg tablet mg 11/03/24 Unknown History blood-glucose sensor (Dexcom G7 11/03/24 11/03/24 Unknown History Sensor device) blood-glucose transmitter (Dexcom 11/03/24 11/03/24 Unknown History G6 Transmitter device) insulin lispro 100 unit/mL 11/03/24 Unknown History subcutaneous solution (Humalog U-100 Insulin) metoclopramide HCl 10 mg tablet mg 11/03/24 Unknown History pantoprazole 40 mg tablet,delayed mg PO 11/03/24 Unknown History release erythromycin ethylsuccinate 400 12/22/24 Unknown History mg/5 mL oral powder for suspension Allergies Allergy/AdvReac Type Severity Reaction Status Date / Time haloperidol (From Haldol) AdvReac Severe Other Verified 01/18/25 10:37 Review of Systems Review of Systems: CONSTITUTIONAL: Denies fever, chills, body aches, or sweats. EYES: Denies visual changes, redness, or discharge. ENT: Denies rhinorrhea, congestion, sore throat, or otalgia. CARDIOVASCULAR: Denies chest pain, palpitations, or edema. RESPIRATORY: Denies cough or dyspnea. GASTROINTESTINAL: Denies diarrhea, bloody stools, hematochezia. Positive for nausea, vomiting, epigastric pain GENITOURINARY: Denies dysuria or hematuria. SKIN: Denies rash or itching. MUSCULOSKELETAL: Denies back pain, joint pain, or myalgia. NEUROLOGIC: Denies headache, numbness, or weakness. PSYCHIATRIC: Denies anxiety or depression. All other systems reviewed are negative, except as documented in HPI. PMFSH Past Medical History Medical History Gastroparesis Elevated cholesterol Type 1 diabetes Surgical History Surgical History History of cholecystectomy Family History Family History Mother Family history non-contributory Social History Social History Smoking status: Never smoker Alcohol intake: never Substance use: current Substance use type: marijuana Living arrangements: with family Gender identity (if verbalized by the patient): Male Exam Narrative: GENERAL: This is a well-nourished, well-developed adult, in no apparent distress. They are non ill-appearing, nontoxic appearing. HEAD: normocephalic, atraumatic. EYES: Sclera clear/white. Vision is grossly intact. Conjunctiva normal bilaterally. Extraocular movements intact. EARS: External ears normal, Hearing grossly intact. NOSE: External nose normal THROAT: Mucous membranes moist NECK: Normal range of motion CARDIOVASCULAR: Regular rate and rhythm. No clicks, gallops, murmurs, or rubs. Normal S1-S2. RESPIRATORY: Respiratory rate normal, respiratory effort nonlabored, no respiratory distress. Lung sounds clear to auscultation. No adventitious lung sounds. GASTROINTESTINAL: Abdomen soft, flat, mild epigastric tenderness to palpation, nondistended. Bowel sounds are active. No hepato-splenomegaly, or palpable masses. No guarding or rigidity. No rebound tenderness. SKIN: warm, Dry, intact with no suspicious lesions or rash, good texture and turgor. NEURO: awake, alert, and oriented to person, place and time. There were no obvious focal neurologic abnormalities. EXTREMITIES: No joint tenderness, effusion, or edema noted. BACK: Nontender without deformity. Course Course Emergency Course: Portions of this record may have been created with voice recognition software Level of Care: Express Care Visit Vital Signs Vital signs: Vital Signs Temperature 98.3 F 02/01/25 11:05 Pulse Rate 81 02/01/25 11:05 Respiratory Rate 16 02/01/25 11:05 Blood Pressure 128/83 02/01/25 11:05 Pulse Oximetry 99 02/01/25 11:05 Oxygen Delivery Room Air 02/01/25 11:05 Temperature 98.3 F 02/01/25 11:05 Pulse Rate 81 02/01/25 11:05 Respiratory Rate 16 02/01/25 11:05 Blood Pressure 128/83 02/01/25 11:05 Pulse Oximetry 99 02/01/25 11:05 Oxygen Delivery Room Air 02/01/25 11:05 MDM - Abdominal Pain MDM Narrative Medical decision making narrative: Likely gastroparesis flare up. No peritoneal findings, patient does not clinically appear dehydrated. Will have patient take his home medications as needed for symptoms. Advised patient to drink plenty of fluids today is tolerated. Strict ER precautions discussed with patient especially if he cannot keep anything food or water down, worsening pain, worsening symptoms, or any other concerns. Discussed physical exam findings. Advised supportive measures and signs/symptoms to go to the ER. Pt is appropriate for outpt treatment and f/u. Differential Diagnosis Differential diagnosis: Likely other (Gastroparesis, gastroenteritis, gastritis) Discharge Plan Discharge Clinical Impression: Abdominal pain, epigastric Patient Disposition: Home Condition: Stable Instructions: Acute Nausea and Vomiting (ED) Additional Instructions: Take your medicines as directed for your gastroparesis. Drink plenty of fluids and supplement with sports drinks such as Pedialyte or Gatorade. Follow-up with PCP in 3-5 days. Please go to the ER if you develop worsening abdominal pain, uncontrollable nausea vomiting, blood sugar problems, concerns of dehydration, or any other concerns. Patient Language: Nauruan Prescriptions: No Action ondansetron 4 mg tablet,disintegrating 4 mg PO Q6H PRN (Reason: nausea and vomiting) Qty: 14 0RF dicyclomine 20 mg tablet 20 mg PO Q6-8H PRN (Reason: abdominal cramping) Qty: 20 0RF ondansetron 4 mg tablet,disintegrating 4 mg PO Q8H PRN (Reason: nausea and vomiting) Qty: 20 0RF atorvastatin 20 mg tablet pantoprazole 40 mg tablet,delayed release (DR/EC) PO insulin lispro [Humalog U-100 Insulin] 100 unit/mL solution Patient Comments: insulin pump metoclopramide HCl 10 mg tablet (DME) Dexcom G7 Sensor Device MISCELLANEOUS (DME) Dexcom G6 Transmitter Device MISCELLANEOUS erythromycin ethylsuccinate 400 mg/5 mL suspension for reconstitution Follow-up/Referrals: Les,REEMA Arizmendi [Primary Care Provider] - Stand Alone Forms: Work/School Release IP Time of Disposition: 11:10
== END 2025-02-01 11:15 | disposition home or self-care (01) ==
PROVIDERS: PCP Physician Assistant
DX: R10.13 Epigastric pain (principal); E10.43 Type 1 diabetes mellitus with diabetic autonomic (poly)neuropathy; K31.84 Gastroparesis; Z79.4 Long term (current) use of insulin; E78.00 Pure hypercholesterolemia, unspecified; F12.90 Cannabis use, unspecified, uncomplicated
CPT/HCPCS: 99211; G0463

== ENCOUNTER 2025-02-04 10:31 | Emergency (ER) | payer OTHER, SELFPAY ==
[2025-02-04 10:34] VITALS: BP 112/82; PULSE 99; RESP 20; TEMP 37; O2SAT 99
--- OUTSIDE RECORDS SUMMARY | 2025-02-04 10:50 | XMS_ITS | Encounter Summary ---
Author Organization [facility] Address [address] [place] [address] Phone Care Team Providers Care Multiple Knife Edge Trimmer Operator Name Role Phone Prashanth Saldana Primary Care Provider [phone] Heidi Swift MD Unavailable Reason for Visit * Reason Comments Medication Refill Encounter Details Date Type Department Care Team (Late st Contact Info) Description 09/17/2021 Refill [facility] - Endocrinology - [address] [place] [address] Heidi Swift MD [address] [address] Medication Refill Social History Tobacco [...] Eli Jones RN - 09/19/2021 3:39 PM FACTORY ENGINEER Requested Prescriptions Pending Prescriptions Disp Refills ??? Continuous Blood Gluc Transmit (Dexcom G6 Transmitter) Misc [Pharmacy Med Name: DEXCOM G6 TRANSMITTER] 3 Si EACH BY DOES NOT APPLY ROUTE EVERY 90 DAYS. CHANGE SENSOR EVERY 90 DAYS. Next appt: Message sent to schedule follow up. ORY ENGINEER documented in this encounter Plan of Treatment [...] Respiratory Rule-Out 05/17/2022 05/17/2022 022 12:16 AM FACTORY ENGINEER COVID - 19 06/27/2022 06/27/2022 07/07/2022 12:1 6 AM FACTORY ENGINEER Influenza 06/27/2022 06/27/2022 07/04/2022 12:1 6 AM FACTORY ENGINEER COVID - 19 04/05/2024 04/05/2024 04/05/2024 10:2 0 PM CDT COVID - 19 10/16/2024 10/16/2024 10/16/2024 7:05 AM CDT documented as of this encounter Care Teams Multiple Knife Edge Trimmer Operator Relationship Specialty Start Date End Date Prashanth Saldana PAC [address] [place] [address] PCP - General Physician Telegraph Editor 04/03/19 Heidi Swift MD [address] [id number] Consulting Physician Endocrinology 08/09/20 09/23/24 documented as of this encounter
--- OUTSIDE RECORDS SUMMARY | 2025-02-04 10:50 | XMS_ITS | Clinical Summary ---
Author Organization [facility] Address [address] [place] [address] Phone Care Team Providers Care Finishing Room Operator Name Role Phone Prashanth Saldana Primary Care Provider [phone] Allergies Active Allergy Reactions Criticality Noted Date [...] 1 Active Insulin Pen Needle (TechLite Pen [place]) 31G X 8 MM Misc USE TO [...] 10 Tablet 2 Active Continuous Blood Gluc Early Education Teacher (Dexcom G6 Early Education Teacher) Device USE TO CHECK GLUCOSE 4X DAILY. [...] 12/24/2024 10:29 AM CDT Emergency [facility] [address] [place] [address] Forest Guerrero MD Dehydration Discharge Disposition: Discharged to home or Selfcare 12/24/2024 Travel 12/16/2024 10:35 AM CDT - 12/16/2024 12:42 PM CDT Emergency [facility] [address] [place] [address] Marquis Soni, Gastroparesis Discharge Disposition: Discharged to home or Selfcare 12/16/2024 Travel from Last 3 Months Immunizations Immunization Administration Dates Next Due [id number] kiersten MCV4, Unspecif ied Formulation 04/17/2012 DTAP [...] = 0.6 oz pur e alcohol) [facility] [employer] Answer Date Recorded In the past 12 months has e [employer], gas, oil, or water [employer] threatened to shut off services in your [...] often do you attend chur ch or rastafarian services? Never 10/16/2024 Do you belong to any clubs o r organizations such as yazidi groups, unions, fraternal or athletic groups, or [...] medical care, and heating? Somewhat hard 10/16/2024 [facility] [place] of Occupat ional Health - Occupational Stress [...] living in a detention (including now)? No 10/16/2024 Sexually Active Control [...] CDT LIPID PANEL Routine 06/24/2019 5:44 AM HOUSEKEEPER SUPERVISOR from Last 3 Months or Most Recently Relevant to Health Maintenance Results * (ABNORMAL) Urinalysis w/ Reflex (12/24/2024 9:42 AM CDT) [facility] SPECIFIC GRAVITY 1.025 1.003 - 1.030 12/24/2024 10:09 AM CDT [facility] URINE PH 6.0 5.0 - 9.0 12/24/2024 10:09 AM CDT [facility] WBC ESTERASE 25 /ul(A) Negative 12/24/2024 10:09 AM CDT [facility] NITRITE Negative Negative 12/24/2024 10:09 AM CDT [facility] PROTEIN, RANDOM URINE 500 mg/dL(A) Negative 12/24/2024 10:09 AM CDT [facility] URINE GLUCOSE, QUAL 100 mg/dL(A) Negative 12/24/2024 10:09 AM CDT [facility] URINE KETONES 15 mg/dL(A) Negative 12/24/2024 10:09 AM CDT [facility] UROBILINOGEN 1 mg/dL(A) Normal mg/dL 12/24/2024 10:09 AM CDT [facility] URINE BLOOD 10 /uL(A) Negative oumar/ul 12/24/2024 10:09 AM CDT [facility] URINALYSIS COLOR Diane 12/25/19 25 10:09 AM CDT [facility] URINALYSIS CLARITY Slightly Cloudy 12/24/2024 10:09 AM CDT [facility] WBC (Urine) 0-5 Negative, 0-5 /hpf 12/24/2024 10:09 AM CDT [facility] URINE RBC'S 6-10(A) Negative, 0-2 /hpf 12/24/2024 10:09 AM CDT [facility] EPITHELIAL CELLS Negative /lpf 12/25/19 25 10:09 AM CDT [facility] BACTERIA, URINE Few(A) Negative /hpf 12/24/2024 10:09 AM CDT [facility] URINE MUCOUS Many 12/24/2024 10:09 AM CDT [facility] CASTS 5-10/LPF Hyaline Casts(A) Negative, 0-2/lpf, 3-5/lpf, 6-10/lpf, 11-20/lpf, >20/lpf /lpf 12/24/2024 10:09 AM CDT [facility] Urine URINE SPECIMEN / Unknown Non-Phlebotomy Collection / Unknown 12/24/2024 9:42 AM CDT 12/24/2024 9:49 AM CDT us Forest Guerrero MD URINE ORDERABLES Final Res ult [facility] [address] [place] [address] * (ABNORMAL) CBC with Auto Differential (12/24/2024 9:39 AM CDT) Only the most recent of2 resultswithin the time period is included. WBC 9.80 4.00 - 12.00 10(3)/mcL 12/24/2024 9:47 AM CDT [facility] RBC 5.53 4.40 - 5.80 10(6)/[facility] 12/24/2024 9:47 AM CDT [facility] HEMOGLOBIN (HGB) 15.6 13.0 - 16.5 g/dL 12/24/2024 9:47 AM CDT [facility] HEMATOCRIT (HCT) 47.0 38.0 - 50.0 % 12/24/2024 9:47 AM CDT [facility] MCV 85.0 82.0 - 96.0 fL 12/24/2024 9:47 AM CDT [facility] MCH 28.2 26.0 - 32.0 pg 12/24/2024 9:47 AM CDT [facility] MCHC 33.2 31.0 - 36.0 g/dL 12/24/2024 9:47 AM CDT [facility] PLATELET COUNT 373 140 - 440 10(3)/[facility] 12/24/2024 9:47 AM CDT [facility] RDW 12.9 11.8 - 15.5 % 12/24/2024 9:47 AM CDT [facility] MPV 10.2 8.0 - 12.6 fL 12/24/2024 9:47 AM CDT [facility] NEUTROPHILS 71.1(H) 40.0 - 68.0 % 12/24/2024 9:47 AM CDT [facility] LYMPHOCYTES 20.4 19.0 - 49.0 % 12/24/2024 9:47 AM CDT [facility] MONOCYTES 8.2 3.0 - 13.0 % 12/24/2024 9:47 AM CDT [facility] EOSINOPHILS 0.0 0.0 - 8.0 % 12/24/2024 9:47 AM CDT [facility] BASOPHILS 0.3 0.0 - 1.0 % 12/24/2024 9:47 AM CDT [facility] ABSOLUTE NEUTROPHILS 6.97(H) 1.40 - 5.30 10(3)/[facility] 12/24/2024 9:47 AM CDT [facility] ABSOLUTE LYMPHOCYTES 2.00 0.90 - 3.30 10(3)/[facility] 12/24/2024 9:47 AM CDT [facility] ABSOLUTE MONOCYTES 0.80 0.10 - 0.90 10(3)/[facility] 12/24/2024 9:47 AM CDT [facility] ABSOLUTE EOSINOPHIL 0.00 0.00 - 0.50 10(3)/[facility] 12/24/2024 9:47 AM CDT [facility] ABSOLUTE BASOPHILS 0.03 0.00 - 0.10 10(3)/[facility] 12/24/2024 9:47 AM CDT [facility] NRBC PER 100 WBC 0 12/25/19 25 9:47 AM CDT [facility] Blood Venipuncture / Unknown 12/24/2024 9:39 AM CDT 12/24/2024 9:39 AM CDT us Forest Guerrero MD HEMATOLOGY ORDERABLES Stephie sasha Result [facility] [address] [place] [address] * Magnesium Level (12/24/2024 9:39 AM CDT) [facility] MAGNESIUM 1.9 1.6 - 2.6 mg/dL 12/24/2024 10:09 AM CDT [facility] Blood Venipuncture / Unknown 12/24/2024 9:39 AM CDT 12/24/2024 9:39 AM CDT Forest Guerrero MD CHEMISTRY ORDERABLES Final Result Performing Organization Address City/[facility] Co de Phone Number [facility] [address] [place] [address] * (ABNORMAL) Lipase (12/24/2024 9:39 AM CDT) Only the most recent of2 resultswithin the time period is included. Pathologist [facility] LIPASE 6(L) 8 - 78 U/L 12/24/2024 10:09 AM CDT [facility] Blood Venipuncture / Unknown 12/24/2024 9:39 AM CDT 12/24/2024 9:39 AM CDT Forest Guerrero MD CHEMISTRY ORDERABLES Final Result Performing Organization Address [facility] Co de Phone Number [facility] [address] [place] [address] * (ABNORMAL) CMP (12/24/2024 9:39 AM CDT) Only the most recent of2 resultswithin the time period is included. [facility] SODIUM 140 136 - 145 mmol/L 12/24/2024 10:09 AM CDT [facility] POTASSIUM 3.8 3.5 - 5.1 mmol/L 12/24/2024 10:09 AM CDT [facility] CHLORIDE 102 98 - 107 mmol/L 12/24/2024 10:09 AM CDT [facility] CO2, VENOUS 21(L) 22 - 30 mmol/L 12/24/2024 10:09 AM CDT [facility] ANION GAP 20.8(H) <18.0 mmol/L 12/24/2024 10:09 AM CDT [facility] GLUCOSE 204(H) 70 - 99 mg/dL 12/24/2024 10:09 AM CDT [facility] BUN 27(H) 9 - 21 mg/dL 12/24/2024 10:09 AM [facility] CREATININE, BLOOD 1.31(H) 0.70 - 1.30 mg/dL 12/24/2024 10:09 AM [facility] BUN/CREATININE RATIO 21(H) 12 - 20 ratio 12/24/2024 10:09 AM [facility] TOTAL PROTEIN 8.4(H) 6.0 - 8.0 g/dL 12/24/2024 10:09 AM [facility] ALBUMIN 5.1(H) 3.5 - 5.0 g/dL 12/24/2024 10:09 AM [facility] A/G RATIO 1.5 1.0 - 2.2 12/24/2024 10:09 AM [facility] CALCIUM 9.7 8.7 - 10.5 mg/dL 12/24/2024 10:09 AM [facility] T BILI 1.1 0.2 - 1.2 mg/dL 12/24/2024 10:09 AM [facility] SGOT (AST) 22 <43 U/L 12/24/2024 10:09 AM [facility] SGPT (ALT) 16 <56 U/L 12/24/2024 10:09 AM [facility] ALKALINE PHOSPHATASE 80 40 - 150 U/L 12/24/2024 10:09 AM [facility] GFR, ESTIMATED >60 >=60 12/24/2024 10:09 AM [facility] Comment: Creatinine Clearance is the preferred criteria for selecting drug dose adjustments in renally impaired patients. The GFR is provided as additional pertinent clinical information. GFR is reported in mL/min/1.73 sq m. Calculation based on the Chronic Kidney Disease Epidemiology Collaboration (CKD- EPI) equation refit without adjustment for race. GFR, EST. >60 >=60 025 10:09 AM [facility] GFR, EST. NONAFRICAN >60 >=60 12/24/2024 10:09 AM CDT [facility] Blood Venipuncture / Unknown 12/24/2024 9:39 AM CDT 12/24/2024 9:39 AM CDT Forest Guerrero MD CHEMISTRY ORDERABLES Final Result Performing Organization Address [facility] de Phone Number [facility] [address] [place] [address] * Gold Top Tube (12/24/2024 9:20 AM CDT) Blood No Phlebotomy Charged / Unknown 12/24/2024 9:20 AM CDT 12/24/2024 9:38 AM CDT Forest Guerrero MD CHEMISTRY ORDERABLES Final Result Performing Organization Address [facility] de Phone Number [facility] [address] [place] [address] * Blue Top Tube (12/24/2024 9:20 AM CDT) Blood No Phlebotomy Charged / Unknown 12/24/2024 9:20 AM CDT 12/24/2024 9:38 AM CDT Forest Guerrero MD HEMATOLOGY ORDERABLES Stephie l Result Performing Organization Address [facility] de Phone Number [facility] [address] [place] [address] * (ABNORMAL) POCT Glucose (12/24/2024 9:17 AM CDT) Only the most recent of2 resultswithin the time period is included. GLUCOSE,BEDSID E POCT 191(H) 70 - 99 mg/dL 12/24/2024 9:23 AM CDT [facility] Comment:Patient RN Performed Blood 12/24/2024 9:17 AM CDT 12/24/2024 9:23 AM CDT us None Provider POINT OF CARE TESTING Final Resu lt Performing Organization Address City/[facility]/ZIP Co de Phone Number [facility] [address] [place] [address] * TROPONIN I, HIGH SENSITIVITY (HSTRP) (12/16/2024 12:18 PM CDT) Only the most recent of2 resultswithin the time period is included. TROPONIN I, HIGH SENSITIVITY- ALEMAN 3 <=35 ng/L 12/16/2024 1:03 PM CDT [facility] Comment: High-sensitivity troponin I results are reported in ng/L making the result appear to be 1,000 times higher than the contemporary troponin I value which is reported in ng/ml. Results from [place]. Blood Venipuncture / Unknown 12/16/2024 12:18 PM CDT 12/16/2024 12:33 PM CDT us Marquis Soni DO CHEMISTRY ORDERABLES Fi nal Result Performing Organization Address [facility] Co de Phone Number [facility] [address] [place] [address] * XR CHEST SINGLE VIEW PORTABLE (12/16/2024 [...] Tristin Pretty M.D. RB: RB Report ID: [id number] Reading Location: [id number] Procedure Note Tristin Pretty MD - 12/16/2024 [...] Tristin Pretty M.D. RB: RB Report ID: [id number] Reading Location: [id number] IMPRESSION: Minimal bibasilar subsegmental atelectasis. Otherwise, no acute cardiopulmonary abnormality. us Marquis Soni DO IMG DIAGNOSTIC ORDERABL ES Final Result * ACETONE QUAL (12/16/2024 11:08 AM CDT) ACETONE Negative Negative 12/16/2024 11:29 AM CDT [facility] Blood Venipuncture / Unknown 12/16/2024 11:08 AM CDT 12/16/2024 11:14 AM CDT us aMrquis Soni DO CHEMISTRY ORDERABLES Fi nal Result [facility] [address] [place] [address] * EKG 12 LEAD (12/16/2024 10:41 AM CDT) Only the most recent of2 resultswithin the time period is included. Ventricular Rate 81 BPM EXTERNAL EKG Atrial Rate 81 BPM EXTERNAL EKG P-R Interval 152 ms EXTERNAL EKG QRS Duration 74 ms EXTERNAL EKG Q-T Duration 368 ms EXTERNAL EKG QTC CALCULATION 427 ms EXTERNAL EKG P [place] 66 degrees EXTERNAL EKG R [place] 63 degrees EXTERNAL EKG T [place] 58 degrees EXTERNAL EKG 12/16/2024 10:4 1 AM CDT Impressions EXTERNAL EKG - 12/21/2024 10:53 PM CDT Normal sinus rhythm Septal infarct (cited on or before 16-DEC-2024) Abnormal ECG When compared with ECG of 16-DEC-2024 10:35, (Unconfirmed) No significant change was found Confirmed by Trina Marie ([id number]) on 12/21/2024 10:53:29 PM Narrative Procedure Note Trina Marie DO - 12/21/2024 IMPRESSION: Normal sinus rhythm Septal infarct (cited on or before 16-DEC-2024) Abnormal ECG When compared with ECG of 16-DEC-2024 10:35, (Unconfirmed) No significant change was found Confirmed by Trina Marie ([id number]) on 12/21/2024 10:53:29 PM us Marquis Soni DO IMG ECG ORDERABLES Stephie l Result Performing Organization Address City/[facility]/ZIP Co de Phone Number EXTERNAL EKG * EKG SCAN (12/16/2024 12:00 AM CDT) 12/16/2024 us Provider Scan IMG ECG ORDERABLES Final Result RESULTING AGENCY * (ABNORMAL) Hemoglobin A1C w/ Estimated Glucose (10/16/2024 2:39 AM CDT) HGB-A1C 7.9(H) 4.0 - 6.0 % 10/16/2024 6:43 AM CDT [facility] Est Average Glucose 180.0 mg/dL 10/16/2024 6:43 AM CDT [facility] Blood Venipuncture / Unknown 10/16/2024 2:39 AM CDT 10/16/2024 2:46 AM CDT Narrative [facility] - 10/16/2024 6:43 AM CDT HEMOGLOBIN A1C: DIABETIC PATIENTS: WELL-CONTROLLED: 6.2 - 7.0 INTERMEDIATE WELL-CONTROLLED: 7.0 - 9.0 POORLY-CONTROLLED: >9.0 Specimens containing greater than 5% of Hemoglobin F may result in lower than expected % HbA1C results. Sharita Kahn HEAD OF LOSS PREVENTION, AREA INTELLIGENCE TECHNICIAN CHEMISTRY ORDERABLES Stephie l Result Performing Organization Address [facility] de Phone Number [facility] [address] [place] [address] * (ABNORMAL) Lipid Panel AM (06/24/2019 5:44 AM HOUSEKEEPER SUPERVISOR) CHOLESTEROL 141 <=200 mg/dL 06/24/2019 1:58 PM HOUSEKEEPER SUPERVISOR [facility] TRIGLYCERIDES 158(H) <150 mg/dL 06/24/2019 1:58 PM HOUSEKEEPER SUPERVISOR [facility] HDL CHOLESTEROL 30.4(L) >40 mg/dL 1:58 PM HOUSEKEEPER SUPERVISOR [facility] LDL 79 5 - 130 mg/dL 06/24/2019 1:58 PM HOUSEKEEPER SUPERVISOR [facility] VLDL 32 5 - 55 mg/dL 06/24/2019 1:58 PM [facility] CHOL/HDL RATIO 4.6(H) 0.0 - 4.4 06/24/2019 1:58 PM HOUSEKEEPER SUPERVISOR [facility] NON-HDL CHOLESTEROL 110.6 <130 mg/dL 06/24/2019 1:58 PM HOUSEKEEPER SUPERVISOR [facility] LIPID FASTING 06/24/2019 1:58 PM HOUSEKEEPER SUPERVISOR [facility] Blood specimen (specimen) BLOOD SPECIMEN / Unknown Venipuncture / Unknown 06/24/2019 5:44 AM HOUSEKEEPER SUPERVISOR 06/24/2019 1:10 PM HOUSEKEEPER SUPERVISOR Toni Orourke MD CHEMISTRY ORDERABLES Fin al Result [facility] [address] [place] [address] from Last 3 Months or Most Recently [...] measures to stabilize the patient. Care Teams Finishing Room Operator Relationship Specialty Start Date End Date Prashanth Saldana, [address] [place] [address] PCP - General Physician Machine Feeder Floorperson 04/03/19
--- OUTSIDE RECORDS SUMMARY | 2025-02-04 10:50 | XMS_ITS | Encounter Summary ---
Author Organization [facility] Address [address] [place] [address] Phone Care Team Providers Care Hand Pleater Name Role Phone Prashanth Saldana Primary Care Provider [phone] Heidi Swift MD Unavailable Reason for Visit * Reason Comments Medication Refill Encounter Details Date Type Department Care Team (Late st Contact Info) Description 08/28/2021 Refill [facility] - Endocr[facility]ology - [place] [address] [place] [address] Heidi Swift MD [address] [address] Medication Refill Social History Tobacco [...] Coronavirus / COVID-19? Yes 08/01/2021 9:49 AM BLEACH BOILER PACKER documented as of this encounter Miscellaneous Notes * Telephone Encounter - Eli Jones RN - 08/28/2021 9:00 AM BLEACH BOILER PACKER Requested Prescriptions Pending Prescriptions Disp Refills ??? insulin lispro (HumaLOG) 100 UNIT/ML Solution [Pharmacy Med Name: HUMALOG 100 UNIT/ML VIAL] 30 mL 0 Sig: UP TO 100 UNITS/DAY PER INSULIN PUMP SETTINGS Next appt: 09/12/2021 CH BOILER PACKER documented in this encounter Plan of Treatment Not on file documented as of this encounter Visit Diagnoses Not on filedocumented in this encounter Additional Health Concerns Infection Onset Date Last Indicated Resolved Time COVID - 19 04/13/2022 04/13/2022 04/13/2022 10:4 2 AM CDT COVID - 19 05/17/2022 05/17/2022 05/27/2022 12:1 6 AM CDT Respiratory Rule-Out 05/17/2022 05/17/2022 022 12:16 AM BLEACH BOILER PACKER COVID - 19 06/27/2022 06/27/2022 07/07/2022 12:1 6 AM BLEACH BOILER PACKER Influenza 06/27/2022 06/27/2022 07/04/2022 12:1 6 AM BLEACH BOILER PACKER COVID - 19 04/05/2024 04/05/2024 04/05/2024 10:2 0 PM CDT COVID - 19 10/16/2024 10/16/2024 10/16/2024 7:05 AM CDT documented as of this encounter Care Teams Hand Pleater Relationship Specialty Start Date End Date Prashanth Saldana PAC [address] [place] [id number] PCP - General Physician Servicenow Administrator 04/03/19 Heidi Swift MD [address] [address] Consulting Physician Endocrinology 08/09/20 09/23/24 documented as of this encounter
--- OUTSIDE RECORDS SUMMARY | 2025-02-04 10:50 | XMS_ITS | Encounter Summary ---
Author Organization [facility] Address [address] [place] [address] Phone Care Team Providers Care Consultant Electronics Name Role Phone Prashanth Saldana Primary Care Provider [phone] Heidi Swift MD Unavailable Reason for Visit * Reason Comments Medication Refill Encounter Details Date Type Department Care Team (Late st Contact Info) Description 12/27/2021 Refill [facility] - Endocr[facility]ology - [place] [address] [place] [address] Heidi Swift MD [address] [address] Medication Refill Social History Tobacco [...] Notes * Telephone Encounter - Saadia Lawson, [facility] - 12/29/2021 11:37 AM CDT Patient calling requesting refill of: Requested Prescriptions Pending Prescriptions Disp Refills ??? 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 [...] Respiratory Rule-Out 05/17/2022 05/17/2022 022 12:16 AM SHIP ERECTOR COVID - 19 06/27/2022 06/27/2022 07/07/2022 12:1 6 AM SHIP ERECTOR Influenza 06/27/2022 06/27/2022 07/04/2022 12:1 6 AM SHIP ERECTOR COVID - 19 04/05/2024 04/05/2024 04/05/2024 10:2 0 PM CDT COVID - 19 10/16/2024 10/16/2024 10/16/2024 7:05 AM CDT documented as of this encounter Care Teams Consultant Electronics Relationship Specialty Start Date End Date Prashanth Saldana PAC [address] [place] [id number] PCP - General Physician Electrician Substation Supervisor 04/03/19 Heidi Swift MD [address] [address] Consulting Physician Endocrinology 08/09/20 09/23/24 documented as of this encounter
--- OUTSIDE RECORDS SUMMARY | 2025-02-04 10:50 | XMS_ITS | Clinical Summary ---
Author Organization [facility] Address [address] [place] [address] Care Team Providers Care Payment Manager Name Role Phone Unavailable Primary Care Provider Unavailabl e Source Comments [email or web address],non-owned Affiliates and Associated Physician Practices is amultiple site organization consisting of ambulatory clinics and hospital sitesin [place], [place], [place] and [place]. This disclosure is being madepursuant to the Care Everywhere program and may not contain all information available regarding this patient. Last updated 18.[email or web address] Allergies No known active allergies Medications * [...] - 105 mg/dL 04/02/2020 3:39 AM CDT [facility] Sodium 137 136 - 145 mmol/L 04/02/2020 3:39 AM CDT [facility] Potassium 3.0(L) 3.5 - 5.1 mmol/L 04/02/2020 3:39 AM CDT [facility] Chloride 104 98 - 107 mmol/L 04/02/2020 3:39 AM CDT [facility] CO2 20(L) 23 - 31 mmol/L 04/02/2020 3:39 AM CDT [facility] Calcium 9.0 8.4 - 10.4 mg/dL 04/02/2020 3:39 AM CDT [facility] Anion Gap 13 8 - 16 mmol/L 04/02/2020 3:39 AM CDT [facility] BUN 6(L) 8.9 - 20.6 mg/dL 04/02/2020 3:39 AM CDT [facility] Creatinine 0.86 0.72 - 1.25 mg/dL 04/02/2020 3:39 AM CDT [facility] eGFR by MDRD >60 >60 mL/min/1.7 3m2 04/02/2020 3:39 AM CDT [facility] eGFR by MDRD >60 >60 mL/min/1.7 3m2 04/02/2020 3:39 AM CDT [facility] Blood BLOOD SPECIMEN / Unknown Lab Venipuncture / Unknown 04/02/2020 3:06 AM CDT 04/02/2020 3:20 AM CDT Robinson Wilkins MD LAB - CHEMISTRY ORDERABLES F inal Result [facility] [address] [place] [address] * (ABNORMAL) HEMOGLOBIN A1C (04/01/2020 12:04 PM CDT) Hemoglobin A1c 8.9(H) 4.2 - 5.6 % 04/01/2020 1:31 PM CDT [facility] Estimated Average Glucose 209 mg/dL 04/01/2020 1:31 PM CDT [facility] Blood BLOOD SPECIMEN / Unknown Venipuncture / Unknown 04/01/2020 12:04 PM CDT 04/01/2020 12:08 PM CDT Narrative [facility] - 04/01/2020 1:31 PM CDT The following cutoff levels are recommended by [place] [employer]. A1c > 6.5% : considered [...] LAB - CHEMISTRY ORDERABLES F inal Result [facility] [address] [place] [address] from Last 3 Months or Most Recently Relevant to Health Maintenance Insurance [place] [address] [facility] Advance Directives * Full Code (Latest Code Status on File) Date Activated Date Inactivated Comments 04/01/2020 1:52 PM 04/02/2020 1:54 PM
--- OUTSIDE RECORDS SUMMARY | 2025-02-04 10:50 | XMS_ITS | Encounter Summary ---
Author Organization [facility] Address [address] [place] [address] Phone Care Team Providers Care Armored Service Technician Name Role Phone Prashanth Saldana Primary Care Provider [phone] Heidi Swift MD Unavailable Reason for Visit * Reason Comments Medication Refill Encounter Details Date Type Department Care Team (Late st Contact Info) Description 07/24/2021 Refill [facility] - Endocrinology - [place] [address] [place] [address] Heidi Swift MD [address] [address] Medication Refill Social History Tobacco [...] COVID-19? No / Unsure 07/07/2021 3:14 PM MACHINE STRIPPER CUTTER documented as of this encounter Miscellaneous Notes * Telephone Encounter - Eli Jones RN - 07/25/2021 8:10 AM MACHINE STRIPPER CUTTER Requested Prescriptions Pending Prescriptions Disp Refills ??? Continuous Blood Gluc Sensor (Dexcom G6 Sensor) Misc [Pharmacy Med Name: DEXCOM G6 SENSOR] Sig: CHANGE SENSOR EVERY 10 DAYS. Next appt: 08/01/2021 INE STRIPPER CUTTER documented in this encounter Plan of Treatment [...] Respiratory Rule-Out 05/17/2022 05/17/2022 022 12:16 AM MACHINE STRIPPER CUTTER COVID - 19 06/27/2022 06/27/2022 07/07/2022 12:1 6 AM MACHINE STRIPPER CUTTER Influenza 06/27/2022 06/27/2022 07/04/2022 12:1 6 AM MACHINE STRIPPER CUTTER COVID - 19 04/05/2024 04/05/2024 04/05/2024 10:2 0 PM CDT COVID - 19 10/16/2024 10/16/2024 10/16/2024 7:05 AM CDT documented as of this encounter Care Teams Armored Service Technician Relationship Specialty Start Date End Date Prashanth Saldana [facility] [address] [place] [id number] PCP - General Physician Fitter Placer 04/03/19 Heidi Swift MD [address] [id number] Consulting Physician Endocrinology 08/09/20 09/23/24 documented as of this encounter
--- OUTSIDE RECORDS SUMMARY | 2025-02-04 10:51 | XMS_ITS | Encounter Summary ---
Author Organization [facility] Address [address] [place] [address] Phone Care Team Providers Care Slip Filler Name Role Phone Cristobal Aguilera MD Primary Care Provider Con Beltrán MD Unavailable [phone] Azra Yarbrough RN Unavailable [phone] Cristobal Aguilera MD Primary Care Provider Prashanth Saldana Primary Care Provider [phone] Sidney Russell MD Unavailable [phone] Reason for Visit * Reason Onset Date Comments left msg. for family to c/b and sched. 3mo appt. 03/12/2018 Encounter Details Date Type Department Care Team (Late st Contact Info) Description 03/12/2018 Telephone [facility] Pediatric Endocrinology [facility] [address] [place] [address] [place] [address] Ngoc Lee left msg. for family to c/b and sched. 3mo appt. Social History Tobacco Use Types Packs/Day Years Used Date Smoking Tobacco: Never Alcohol Use Standard Drinks/Week Comments No 0 (1 standard drink = 0.6 oz pur e alcohol) Sex and Gender Information Value Date Recorded Sex Assigned at Not on file Legal Sex Male 4:12 AM WINE BLENDER Gender Identity Not on file Sexual Orientation [...] COVID: Suspected 05/26/2020 05/26/2020 05/27/2020 10:23 AM WINE BLENDER Respiratory Infection (ALLIE), contact + droplet Comment:IP Review - There is a significant event note with an alternative diagnosis and at least one negative COVID-19 test documented in Epic. Patient meets criteria for COVID-19 isolation discontinuation. ` Automatically added due to negative COVID-19 result. 05/27/2020 05/27/2020 05/27/2020 12:46 PM WINE BLENDER COVID: Suspected 07/04/2020 07/04/2020 07/04/2020 6:02 PM WINE BLENDER Respiratory Infection (ALLIE), contact + droplet Comment:Patient classified as Low Risk for COVID-19 and has one negative COVID-19 test. Patient meets criteria for COVID-19 isolation discontinuation 07/04/2020 [place] Automatically added due to negative COVID-19 result. 07/04/2020 07/04/2020 07/04/2020 8:[address] COVID: Suspected 08/03/2020 08/03/2020 08/03/2020 10:50 PM WINE BLENDER Respiratory Infection (ALLIE), contact + droplet Comment:08/04/2020 [...] documented as of this encounter Care Teams Slip Filler Relationship Specialty Start Date End Date Cristobal Aguilera MD PCP - General 10/19/16 11/15/19 Cristobal Aguilera MD PCP - General 11/16/19 05/24/20 Prashanth Saldana PA [address] [place] [address] PCP - General Family Practice 05/25/20 Con Beltrán MD Referring Physician Pediatric Endocrinology 12/20/18 Azra Yarbrough RN [id number] [address] [facility] [employer] 11/16/19 12/15/19 Sidney Russell MD [address] [place] [address] Consulting Physician Gastroenterology 04/19/21 documented as of this encounter
--- OUTSIDE RECORDS SUMMARY | 2025-02-04 10:51 | XMS_ITS | Encounter Summary ---
Author Organization [facility] Address [address] [place] [address] Care Team Providers Care Transcription Coordinator Name Role Phone Con Beltrán MD Unavailable [phone] Prashanth Saldana Primary Care Provider [phone] Sidney Russell MD Unavailable [phone] Encounter Details Date Type Department Care Team (Latest Contact Info) Description 01/01/2025 Results Follow-Up [facility] Gastroenterology at [address] [place] [address] Peter Rivera NP [address] [place] [address] [address] [place] [address] [place] Gastric Emptying Study Social History Tobacco Use Types Packs/Day Years Used Date Smoking Tobacco: Every Day Vaping Smokeless Tobacco: Never Alcohol Use Standard Drinks/Week Comments No 0 (1 standard drink = 0.6 oz pur e alcohol) [facility] Utilities Answer Date Recorded In the past 12 months has [employer], gas, oil, or water company threatened to [...] week 12/02/2024 How often do you attend [facility] or pentecostal services? Never 12/02/2024 Do you belong to any clubs o r organizations such as shinto groups, unions, fraternal or athletic groups, or [...] time in the past [address] [facility], were you homeless or living in a [place] [facility] facility (including now)? No 12/02/2024 Personal Safety Answer Date Recorded Have you ever been in or are you currently in a harmful physical or emotional relationship or is someone making you feel afraid or unsafe? 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
--- OUTSIDE RECORDS SUMMARY | 2025-02-04 10:51 | XMS_ITS | Data Portability ---
Author Organization [facility] Address [address] [place] [address] Assessment No assessment recorded. Plan of Treatment Reminders Order Date Submit Date Provider Last Modified By Organization Details Last Modified Time Details Appointments None recorded. Lab CBC 2024 025 [facility], [address] [facility] [address], [place], [address], 5 10:16:08 CMP, serum or plasma 2024 025 [facility], [address] [facility] [address], [place], [address], 5 10:16:06 lipid panel, serum 2024 025 [facility], [address] [place] [address] [address], [place], [address], 5 10:16:04 HbA1c (hemoglob in A1c), blood 2024 025 CHRISTINA In-Office Order, Internal Use Only DO Not Attach Compendium DO Not Attach Compendium, Do Not Delete/merge, [id number] 12:17:21 urinalysi s, dipstick 2022 023 [email or web address] In-Office Order, Internal Use Only DO Not Attach Compendium DO Not Attach Compendium, Do Not Delete/merge, [id number] 15:45:59 Referral None recorded. Procedures None [...] By Organization Details Last Modified Time 05/30/2022 [id number] learning about type 1 diabetes kaurey Not available 05/30/2022 11:57:01 type 1 diabetes: care instructions jnanney Not available 05/30/2022 11:57:01 12/18/2022 [id number] A healthy lifestyle: care instructions jnanney Not available 12/18/2022 14:46:15 learning about type 1 diabetes jnanney Not available 12/18/2022 14:46:15 type 1 diabetes: care instructions jnanney Not available 12/18/2022 14:46:15 04/16/2023 [id number] A healthy lifestyle: care instructions jnanney Not available 04/16/2023 15:45:59 learning about type 1 diabetes jnanney Not available 04/16/2023 15:45:59 type 1 diabetes: care instructions jnanney Not available 04/16/2023 15:45:59 09/03/2024 [id number] learning about type 1 diabetes jnanney Not available 09/03/2024 12:01:53 type 1 diabetes: care instructions jnanney Not available 09/03/2024 12:01:53 01/06/2025 [id number] learning about type 1 diabetes jnanney Not [...] DO Not Attach Compendium, Do Not Delete/merge, [id number] 04/16/2023 15:37:08 04/16/2004/16/2023 urina lysis , dipst ick Nitrite negati ve Not Available In-Office Order Internal Use Only DO Not Attach Compendium DO Not Attach Compendium, Do Not Delete/merge, 04/16/2023 15:37:08 04/16/2004/16/2023 urina lysis , dipst ick Urobilinogen .2 Not Available In-Of fice Order Internal Use Only DO Not Attach Compendium DO Not Attach Compendium, Do Not Delete/merge, [id number] 04/16/2023 15:37:08 04/16/2004/16/2023 urina lysis , dipst ick Protein Negati ve Not Available In-Office Order Internal Use Only DO Not Attach Compendium DO Not Attach Compendium, Do Not Delete/merge, [id number] 04/16/2023 15:37:08 04/16/2004/16/2023 urina lysis , dipst ick pH 5.5 Not Available In-Office Order Internal Use Only DO Not Attach Compendium DO Not Attach Compendium, Do Not Delete/merge, [facility] 04/16/2023 15:37:08 04/16/20 23 04/16/2023 urina lysis , dipst ick Blood Negati ve Not Available In-Office Order Internal Use Only DO Not Attach Compendium DO Not Attach Compendium, Do Not Delete/merge, [facility] 04/16/2023 15:37:08 04/16/20 23 04/16/2023 urina lysis , dipst ick Specific Preston 1.015 Not Available In-Off ice Order Internal Use Only DO Not Attach Compendium DO Not Attach Compendium, Do Not Delete/merge, [facility] 04/16/2023 15:37:08 04/16/20 23 04/16/2023 urina lysis , dipst ick Ketone Negati ve Not Available In-Office Order Internal Use Only DO Not Attach Compendium DO Not Attach Compendium, Do Not Delete/merge, [facility] 04/16/2023 15:37:08 04/16/20 23 04/16/2023 urina lysis , dipst ick Bilirubin Negati ve Not Available In-Office Order Internal Use Only DO Not Attach Compendium DO Not Attach Compendium, Do Not Delete/merge, [facility] 04/16/2023 15:37:08 04/16/20 23 04/16/2023 urina lysis , dipst ick Glucose 1000 Not Available In-Office Order Internal Use Only DO Not Attach Compendium DO Not Attach Compendium, Do Not Delete/merge, [id number] 04/16/2023 15:37:08 04/16/20 23 04/16/2023 urina lysis , dipst ick Appearance Clear Not Available In-Offi ce Order Internal Use Only DO Not Attach Compendium DO Not Attach Compendium, Do Not Delete/merge, [facility] 04/16/2023 15:37:08 04/16/20 23 04/16/2023 urina lysis , dipst ick Color Pale Yellow Not Available In-Office Order Internal Use Only DO Not Attach Compendium DO Not Attach Compendium, Do Not Delete/merge, [id number] 04/16/2023 15:37:08 12/07/19 24 12/07/2023 Gluco se [Mass /volu me] in Blood glucose [mass/volume ] in blood 453 mg/dL low: 70mg/d Lhigh: 99mg/d L critical high GLUCO SE,BE DSIDE POCT 453 (HH) 70 - 99 mg/dL 12/06 4:54 PM CDT [facility] Not Available Not Available 12/03/2024 [...] mmol/ L 12/06 2:51 PM CDT [facility] LAB Not Available Not Available 12/03/2024 11:58:14 12/07/19 24 12/07/2023 Basic metab olic 1999 panel - Serum or Plasm a potassium [moles/volum e] in serum or plasma 3.2 mmol/ L low: 3.5mmo l/Lhig h: 5.1mmo l/L low POTAS SIUM 3.2 (L) 3.5 - 5.1 mmol/ L 12/06 2:51 PM CDT [facility] Not Available Not Available 12/03/2024 11:58:14 12/07/19 24 12/07/2023 Basic metab olic 1999 panel - Serum or Plasm a chloride [moles/volum e] in serum or plasma 86 mmol/ L low: 98mmol /Lhigh : 107mmo l/L low CHLOR JULIENNE 86 (L) 98 - 107 mmol/ L 12/06 2:51 PM [facility] Not Available Not Available 12/03/2024 11:58:14 12/07/19 24 12/07/2023 Basic metab olic 2000 panel - Serum or Plasm a carbon dioxide, total [moles/volum e] in serum or plasma 23 mmol/ L low: 22mmol /Lhigh : 30mmol /L CO2, VENOU S 23 22 - 30 mmol/ L 12/06 2:51 PM CDT [facility] Not Available Not Available 12/03/2024 11:58:14 12/07/19 24 12/07/2023 Basic metab olic 2000 panel - Serum or Plasm a anion gap in serum or plasma by calculation 27.2 mmol/ L high: 18mmol /L high ANION GAP 27.2 (H) <18.0 mmol/ L 12/06 2:51 PM CDT [facility] Not Available Not Available 12/03/2024 11:58:14 12/07/19 24 12/07/2023 Basic metab olic 1999 panel - Serum or Plasm a glucose [mass/volume ] in serum or plasma 168 mg/dL low: 70mg/d Lhigh: 99mg/d L high GLUCO SE 168 (H) 70 - 99 mg/dL 12/06 2:51 PM CDT [facility] Not Available Not Available 12/03/2024 11:58:14 12/07/19 24 12/07/2023 Basic metab olic 2000 panel - Serum or Plasm a urea nitrogen [mass/volume ] in serum or plasma 47 mg/dL low: 9mg/dL high: 21mg/d L high BUN 47 (H) 9 - 21 mg/dL 12/06 2:51 PM [facility] Not Available Not Available 12/03/2024 11:58:14 12/07/19 24 12/07/2023 Basic metab olic 2000 panel - Serum or Plasm a creatinine [mass/volume ] in serum or plasma 2.42 mg/dL low: 0.7mg/ dLhigh : 1.3mg/ dL high CREAT ININE , BLOOD 2.42 (H) 0.70 - 1.30 mg/dL 12/06 2:51 PM CDT [facility] R LAB Not Available Not Available 12/03/2024 11:58:14 12/07/19 24 12/07/2023 [facility] 1999 panel - Serum or Plasm a urea nitrogen/cre atinine [mass ratio] in serum or plasma 19 text: 12 - 20 ratio BUN/C REATI NINE RATIO 19 12 - 20 ratio 12/06 2:51 PM CDT [facility] Not Available Not Available 12/03/2024 11:58:14 12/07/19 24 12/07/2023 [facility] 1999 panel - Serum or Plasm a calcium [mass/volume ] in serum or plasma 8.6 mg/dL low: 8.7mg/ dLhigh : 10.5mg /dL low CALCI UM 8.6 (L) 8.7 - 10.5 mg/dL 12/06 2:51 PM CDT [facility] Not Available Not Available 12/03/2024 11:58:14 12/07/19 24 12/07/2023 [facility] 1999 panel - Serum or Plasm a glomerular filtration rate [volume rate/area] in serum, plasma or blood by creatinine-b ased formula (MDRD)/1.73 sq M among non black population 37 low: 60 low GFR, ESTIM ATED 37 (L) >=60 12/06 2:51 PM CDT [facility] Not Available Not Available 12/03/2024 11:58:14 12/07/19 24 12/07/2023 [employer] [facility] 1999 panel - Serum or Plasm a glomerular filtration rate [volume rate/area] in serum, plasma or blood by creatinine-b ased formula (MDRD)/1.73 sq M among black population 40 low: 60 low GFR, EST. AFRIC AN 40 (L) >=60 12/06 2:51 PM CDT [facility] Not Available Not Available 12/03/2024 11:58:14 12/07/19 24 12/07/2023 Basic metab olic 2000 panel - Serum or Plasm a glomerular filtration rate [volume rate/area] in serum, plasma or blood by creatinine-b ased formula (MDRD)/1.73 sq M among non black population 33 low: 60 low GFR, EST. NONAF RICAN 33 (L) >=60 12/06 2:51 PM CDT [facility] [...] room air 12/06 12:22 PM CDT [facility]ALT H CENTE R LAB Not Available Not Available 12/03/2024 11:58:14 12/07/19 24 12/07/2023 Gas panel - Venou s blood pH of venous blood 7.55 low: 7.34hi gh: 7.43 high PH VENOU S 7.55 (H) 7.34 - 7.43 12/06 12:22 PM CDT [facility] Not Available Not Available 12/03/2024 11:58:14 12/07/19 24 12/07/2023 Gas panel - Venou s blood carbon dioxide [partial pressure] in venous blood 29 text: 41 - 51 mmHg low PCO2 (VENO US) 29 (L) 41 - 51 mmHg 12/06 12:22 PM CDT [facility] Not Available Not Available 12/03/2024 11:58:14 12/07/19 24 12/07/2023 Gas panel - Venou s blood oxygen [partial pressure] in venous blood 55 text: 30 - 50 mmHg high PO2 VENOU S 55 (H) 30 - 50 mmHg 12/06 12:22 PM CDT [facility] Not Available Not Available 12/03/2024 11:58:14 12/07/19 24 12/07/2023 Gas panel - Venou s blood oxygen saturation in venous blood 85 % low: 60%hig h: 85% O2 SAT JOHNNIE, MEASU RED 85 60 - 85 % 12/06 12:22 PM CDT [facility] Not Available Not Available 12/03/2024 11:58:14 12/07/19 24 12/07/2023 Gas panel - Venou s blood bicarbonate [moles/volum e] in blood 25.8 mmol/ L low: 22mmol /Lhigh : 26mmol /L BICAR BONAT E 25.8 22.0 - 26.0 mmol/ L 12/06 12:22 PM CDT [facility] Not Available Not Available 12/03/2024 11:58:14 12/07/19 24 12/07/2023 Gas panel - Venou s blood base venous 4.7 mmol/ L low: -2mmol /Lhigh : 3mmol/ L high BASE VENOU S 4.7 (H) -2.0 - 3.0 mmol/ L 12/06 12:22 PM CDT [facility] LAB Not Available Not Available 12/03/2024 11:58:14 12/07/19 24 12/07/2023 Gas panel - Venou s blood carboxyhemog lobin/hemogl obin.total in blood 1.2 % low: 0%high : 5% CARBO XYHEM OGLOB IN 1.2 0.0 - 5.0 % 12/06 12:22 PM CDT [facility] Not Available Not Available [...] 10(3) /mcL 12/06 11:38 AM CDT [facility] Not Available Not Available 12/03/2024 11:58:14 12/07/19 24 12/07/2023 CBC W Auto Diffe renti al panel - Blood erythrocytes [#/volume] in blood by automated count 5.47 text: 4.40 - 5.80 10(6)/ mcL RBC 5.47 4.40 - 5.80 10(6) /mcL 12/06 11:38 AM CDT [facility] Not Available Not Available 12/03/2024 11:58:14 12/07/19 24 12/07/2023 CBC W Auto Diffe renti al panel - Blood hemoglobin [mass/volume ] in blood 16.2 g/dL low: 13g/dL high: 16.5g/ dL HEMOG LOBIN (HGB) 16.2 13.0 - 16.5 g/dL 12/06 11:38 AM CDT [facility] Not Available Not Available 12/03/2024 11:58:14 12/07/19 24 12/07/2023 CBC W Auto Diffe renti al panel - Blood hematocrit [volume fraction] of blood by automated count 45.5 % low: 38%hig h: 50% HEMAT OCRIT (HCT) 45.5 38.0 - 50.0 % 12/06 11:38 AM CDT [facility] CENT[facility] R LAB Not Available Not Available 12/03/2024 11:58:14 12/07/19 24 12/07/2023 CBC W Auto Diffe renti al panel - Blood MCV [entitic mean volume] in red blood cells by automated count 83.2 fL low: 82fLhi gh: 96fL MCV 83.2 82.0 - 96.0 fL 12/06 11:38 AM CDT [facility] Not Available Not Available 12/03/2024 11:58:14 12/07/19 24 12/07/2023 CBC W Auto Diffe renti al panel - Blood MCH [entitic mass] by automated count 29.6 pg low: 26pghi gh: 32pg MCH 29.6 26.0 - 32.0 pg 12/06 11:38 AM CDT [facility] Not Available Not Available 12/03/2024 11:58:14 12/07/19 24 12/07/2023 CBC W Auto Diffe renti al panel - Blood MCHC [entitic mass/volume] in red blood cells by automated count 35.6 g/dL low: 31g/dL high: 36g/dL MCHC 35.6 31.0 - 36.0 g/dL 12/06 11:38 AM CDT [facility] Not Available Not Available 12/03/2024 11:58:14 12/07/19 24 12/07/2023 CBC W Auto Diffe renti al panel - Blood platelets [#/volume] in blood 464 text: 140 - 440 10(3)/ mcL high PLATE LET COUNT 464 (H) 140 - 440 10(3) /mcL 12/06 11:38 AM CDT [facility] Not Available Not Available 12/03/2024 11:58:14 12/07/19 24 12/07/2023 CBC W Auto Diffe renti al panel - Blood erythrocyte [distwidth] in red blood cells by automated count 13.2 % low: 11.8%h igh: 15.5% RDW 13.2 11.8 - 15.5 % 12/06 11:38 AM CDT [facility] Not Available Not Available 12/03/2024 11:58:14 12/07/19 24 12/07/2023 CBC W Auto Diffe renti al panel - Blood platelet [entitic mean volume] in blood by automated count 10 fL low: 8fLhig h: 12.6fL MPV 10.0 8.0 - 12.6 fL 12/06 11:38 AM CDT [facility] Not Available Not Available 12/03/2024 11:58:14 12/07/19 24 12/07/2023 CBC W Auto Diffe renti al panel - Blood neutrophils/ leukocytes in blood by automated count 83.4 % low: 40%hig h: 68% high NEUTR OPHIL S 83.4 (H) 40.0 - 68.0 % 12/06 11:38 AM CDT [facility] Not Available Not Available 12/03/2024 11:58:14 12/07/19 24 12/07/2023 CBC W Auto Diffe renti al panel - Blood lymphocytes/ leukocytes in blood by automated count 7.3 % low: 19%hig h: 49% low LYMPH OCYTE S 7.3 (L) 19.0 - 49.0 % 12/06 11:38 AM CDT [facility] Not Available Not Available 12/03/2024 11:58:14 12/07/19 24 12/07/2023 CBC W Auto Diffe renti al panel - Blood monocytes/le ukocytes in blood by automated count 9.2 % low: 3%high : 13% MONOC YTES 9.2 3.0 - 13.0 % 12/06 11:38 AM CDT [facility] Not Available Not Available 12/03/2024 11:58:14 12/07/19 24 12/07/2023 CBC W Auto Diffe renti al panel - Blood eosinophils/ leukocytes in blood by automated count 0 % low: 0%high : 8% EOSIN OPHIL S 0.0 0.0 - 8.0 % 12/06 11:38 AM CDT [facility] Not Available Not Available 12/03/2024 11:58:14 12/07/19 24 12/07/2023 CBC W Auto Diffe renti al panel - Blood basophils/le ukocytes in blood by automated count 0.1 % low: 0%high : 1% BASOP HILS 0.1 0.0 - 1.0 % 12/06 11:38 AM CDT [facility] Not Available Not Available 12/03/2024 11:58:14 12/07/19 24 12/07/2023 CBC W Auto Diffe renti al panel - Blood neutrophils [#/volume] in blood by automated count 17.42 text: 1.40 - 5.30 10(3)/ mcL high ABSOL [place] NEUTR OPHIL S 17.42 (H) 1.40 - 5.30 10(3) /mcL 12/06 11:38 AM CDT [facility] Not Available Not Available 12/03/2024 11:58:14 12/07/19 24 12/07/2023 CBC W Auto Diffe renti al panel - Blood lymphocytes [#/volume] in blood by automated count 1.53 text: 0.90 - 3.30 10(3)/ mcL ABSOL [place] LYMPH OCYTE S 1.53 0.90 - 3.30 10(3) /mcL 12/06 11:38 AM CDT [facility] Not Available Not Available 12/03/2024 11:58:14 12/07/19 24 12/07/2023 CBC W Auto Diffe renti al panel - Blood monocytes [#/volume] in blood by automated count 1.92 text: 0.10 - 0.90 10(3)/ mcL high ABSOL [place] MONOC YTES 1.92 (H) 0.10 - 0.90 10(3) /mcL 12/06 11:38 AM CDT [facility] Not Available Not Available 12/03/2024 11:58:14 12/07/19 24 12/07/2023 CBC W Auto Diffe renti al panel - Blood eosinophils [#/volume] in blood by automated count 0 text: 0.00 - 0.50 10(3)/ mcL [place]OL [place] EOSIN OPHIL 0.00 0.00 - 0.50 10(3) /mcL 12/06 11:38 AM CDT [facility] Not Available Not Available 12/03/2024 11:58:14 12/07/19 24 12/07/2023 CBC W Auto Diffe renti al panel - Blood basophils [#/volume] in blood by automated count 0.03 text: 0.00 - 0.10 10(3)/ mcL [place]OL [place] BASOP HILS 0.03 0.00 - 0.10 10(3) /mcL 12/06 11:38 AM CDT [facility] Not Available Not Available 12/03/2024 11:58:14 12/07/19 24 12/07/2023 CBC W Auto Diffe renti al panel - Blood nucleated erythrocytes /leukocytes [ratio] in blood 0 NRBC PER 100 WBC 0 12/06 11:38 AM CDT [facility] Not Available Not Available 12/03/2024 11:58:14 [...] (A) Negat yen 12/06 11:51 AM CDT [facility] Not Available Not Available 12/03/2024 11:58:14 [...] - 78 U/L 12/06 11:59 AM CDT [facility] Not Available [...] 145 mmol/ L 12/06 12:06 PM CDT [facility] Not Available Not Available 09/03/2024 11:01:15 12/07/19 24 12/07/2023 Compr ehens yen metab olic 1999 panel - Serum or Plasm a potassium [moles/volum e] in serum or plasma 3.4 mmol/ L low: 3.5mmo l/Lhig h: 5.1mmo l/L low POTAS SIUM 3.4 (L) 3.5 - 5.1 mmol/ L 12/06 12:06 PM CDT [facility] LAB Not Available Not Available 09/03/2024 11:01:15 12/07/19 24 12/07/2023 Compr ehens yen metab olic 1999 panel - Serum or Plasm a chloride [moles/volum e] in serum or plasma 77 mmol/ L low: 98mmol /Lhigh : 107mmo l/L low CHLOR JULIENNE 77 (L) 98 - 107 mmol/ L 12/06 12:06 PM CDT [facility] Not Available Not Available 09/03/2024 11:01:15 12/07/19 24 12/07/2023 Compr ehens yen metab olic 1999 panel - Serum or Plasm a carbon dioxide, total [moles/volum e] in serum or plasma 23 mmol/ L low: 22mmol /Lhigh : 30mmol /L CO2, VENOU S 23 22 - 30 mmol/ L 12/06 12:06 PM CDT [facility] Not Available Not Available 09/03/2024 11:01:15 12/07/19 24 12/07/2023 Compr ehens yen metab olic 1999 panel - Serum or Plasm a anion gap in serum or plasma 33.4 mmol/ L high: 18mmol /L high ANION GAP 33.4 (H) <18.0 mmol/ L 12/06 12:06 PM CDT [facility] Not Available Not Available 09/03/2024 11:01:15 12/07/19 24 12/07/2023 Compr ehens yen metab ic 1999 panel - Serum or Plasm a glucose [mass/volume ] in serum or plasma 377 mg/dL low: 70mg/d Lhigh: 99mg/d L high GLUCO SE 377 (H) 70 - 99 mg/dL 12/06 12:06 PM CDT [facility] Not Available Not Available 09/03/2024 11:01:15 12/07/19 24 12/07/2023 Compr ehens yen metab olic 1999 panel - Serum or Plasm a urea nitrogen [mass/volume ] in serum or plasma 48 mg/dL low: 9mg/dL high: 21mg/d L high BUN 48 (H) 9 - 21 mg/dL 12/06 12:06 PM CDT [facility] Not Available Not Available 09/03/2024 11:01:15 12/07/19 24 12/07/2023 Compr ehens yen metab olic 1999 panel - Serum or Plasm a creatinine [mass/volume ] in serum or plasma 2.8 mg/dL low: 0.7mg/ dLhigh : 1.3mg/ dL high CREAT ININE , BLOOD 2.80 (H) 0.70 - 1.30 mg/dL 12/06 12:06 PM CDT [facility] Not Available Not Available 09/03/2024 11:01:15 12/07/19 24 12/07/2023 Compr ehens yen metab olic 1999 panel - Serum or Plasm a urea nitrogen/cre atinine [mass ratio] in serum or plasma 17 text: 12 - 20 ratio BUN/C REATI NINE RATIO 17 12 - 20 ratio 12/06 12:06 PM CDT [facility] Not Available Not Available 09/03/2024 11:01:15 12/07/19 24 12/07/2023 Compr ehens yen metab olic 1999 panel - Serum or Plasm a protein [mass/volume ] in serum or plasma 8.4 g/dL low: 6.3g/d Lhigh: 8.2g/d L high TOTAL PROTE IN 8.4 (H) 6.3 - 8.2 g/dL 12/06 12:06 PM CDT [facility] Not Available Not Available 09/03/2024 11:01:15 12/07/19 24 12/07/2023 Compr ehens yen metab olic 1999 panel - Serum or Plasm a albumin [mass/volume ] in serum or plasma 4.7 g/dL low: 3.5g/d Lhigh: 5g/dL ALBUM IN 4.7 3.5 - 5.0 g/dL 12/06 12:06 PM CDT [facility] Not Available Not Available 09/03/2024 11:01:15 12/07/19 24 12/07/2023 Compr ehens yen metab olic 1999 panel - Serum or Plasm a albumin/glob ulin [mass ratio] in serum or plasma 1.3 low: 1high: 2.2 A/G RATIO 1.3 1.0 - 2.2 12/06 12:06 PM CDT [facility] Not Available Not Available 09/03/2024 11:01:15 12/07/19 24 12/07/2023 Compr ehens yen metab olic 1999 panel - Serum or Plasm a calcium [mass/volume ] in serum or plasma 9.3 mg/dL low: 8.7mg/ dLhigh : 10.5mg /dL CALCI UM 9.3 8.7 - 10.5 mg/dL 12/06 12:06 PM CDT [facility] LAB Not Available Not Available 09/03/2024 11:01:15 12/07/19 24 12/07/2023 Compr ens yen metab olic 1999 panel - Serum or Plasm a bilirubin.to su [mass/volume ] in serum or plasma 1.1 mg/dL low: 0.2mg/ dLhigh : 1.2mg/ dL T BILI 1.1 0.2 - 1.2 mg/dL 12/06 12:06 PM CDT [facility] [facility] Not Available Not Available 09/03/2024 11:01:15 12/07/19 24 12/07/2023 Compr ehens yen metab olic 1999 panel - Serum or Plasm a aspartate aminotransfe rase [enzymatic activity/vol ume] in serum or plasma 32 U/L low: 5U/Lhi gh: 34U/L SGOT (AST) 32 5 - 34 U/L 12/06 12:06 PM CDT [facility] [facility] Not Available Not Available 09/03/2024 11:01:15 12/07/19 24 12/07/2023 Compr ehens yen metab olic 1999 panel - Serum or Plasm a alanine aminotransfe rase [enzymatic activity/vol ume] in serum or plasma 41 U/L low: 0U/Lhi gh: 55U/L SGPT (ALT) 41 0 - 55 U/L 12/06 12:06 PM CDT [facility] Not Available Not Available 09/03/2024 11:01:15 12/07/19 24 12/07/2023 Compr ehens yen metab olic 1999 panel - Serum or Plasm a alkaline phosphatase [enzymatic activity/vol ume] in serum or plasma 115 U/L low: 40U/Lh igh: 150U/L ALKAL INE PHOSP HATAS E 115 40 - 150 U/L 12/06 12:06 PM CDT [facility] mmol/ L 04/05 9:56 PM CDT [facility] LAB Not Available Not Available 12/03/2024 [...] yen, Error 04/05 10:20 PM CDT [facility] LAB Not Available Not Available 12/03/2024 [...] yen Negat yen 04/05 10:20 [facility] Not Available 12/03/2024 [...] ve RESP SYNC VIRUS Negat yen Negat eyn 04/05 10:20 PM CDT [facility] LAB Not Available Not [...] Detec leodan) 04/05 10:20 PM CDT [facility] R LAB Not Available Not Available 12/03/2024 [...] RESUL T 04/10 6:01 PM CDT [facility] [place] [facility] R Not Available [...] Negat yen 04/05 4:57 PM CDT [facility] [...] 99 mg/dL 04/06 6:23 AM CDT [facility] R LAB Not [...] 12.00 10(3) /mcL 04/06 5:28 AM [facility] Not Available Not Available 12/03/2024 11:56:35 04/06/20 24 04/06/2024 CBC W Auto Diffe renti al panel - Blood erythrocytes [#/volume] in blood by automated count 4.18 text: 4.40 - 5.80 10(6)/ mcL low RBC 4.18 (L) 4.40 - 5.80 10(6) /mcL 04/06 5:28 AM [facility] Not Available Not Available 12/03/2024 11:56:35 04/06/20 24 04/06/2024 CBC W Auto Diffe renti al panel - Blood hemoglobin [mass/volume ] in blood 12.1 g/dL low: 13g/dL high: 16.5g/ dL low HEMOG LOBIN (HGB) 12.1 (L) 13.0 - 16.5 g/dL 04/06 5:28 AM CDT [facility] Not Available Not Available 12/03/2024 11:56:35 04/06/20 24 04/06/2024 CBC W Auto Diffe renti al panel - Blood hematocrit [volume fraction] of blood by automated count 35.8 % low: 38%hig h: 50% low HEMAT OCRIT (HCT) 35.8 (L) 38.0 - 50.0 % 04/06 5:28 AM CDT [facility] Not Available Not Available 12/03/2024 11:56:35 04/06/20 24 04/06/2024 CBC W Auto Diffe renti al panel - Blood MCV [entitic mean volume] in red blood cells by automated count 85.6 fL low: 82fLhi gh: 96fL MCV 85.6 82.0 - 96.0 fL 04/06 5:28 AM CDT [facility] Not Available Not Available 12/03/2024 11:56:35 04/06/20 24 04/06/2024 CBC W Auto Diffe renti al panel - Blood MCH [entitic mass] by automated count 28.9 pg low: 26pghi gh: 32pg MCH 28.9 26.0 - 32.0 pg 04/06 5:28 AM CDT [facility] Not Available Not Available 12/03/2024 11:56:35 04/06/20 24 04/06/2024 CBC W Auto Diffe renti al panel - Blood MCHC [entitic mass/volume] in red blood cells by automated count 33.8 g/dL low: 31g/dL high: 36g/dL MCHC 33.8 31.0 - 36.0 g/dL 04/06 5:28 AM CDT [facility] Not Available Not Available 12/03/2024 11:56:35 04/06/20 24 04/06/2024 CBC W Auto Diffe ramanti al panel - Blood platelets [#/volume] in blood 287 text: 140 - 440 10(3)/ mcL PLATE LET COUNT 287 140 - 440 10(3) /mcL 04/06 5:28 AM CDT [facility] Not Available Not Available 12/03/2024 11:56:35 04/06/20 24 04/06/2024 CBC W Auto Diffe renti al panel - Blood erythrocyte [distwidth] in red blood cells by automated count 13.7 % low: 11.8%h igh: 15.5% RDW 13.7 11.8 - 15.5 % 04/06 5:28 AM CDT [facility] Not Available Not Available 12/03/2024 11:56:35 04/06/20 24 04/06/2024 CBC W Auto Diffe renti al panel - Blood platelet [entitic mean volume] in blood by automated count 10.7 fL low: 8fLhig h: 12.6fL MPV 10.7 8.0 - 12.6 fL 04/06 5:28 AM CDT [facility] Not Available Not Available 12/03/2024 11:56:35 04/06/20 24 04/06/2024 CBC W Auto Diffe renti al panel - Blood nucleated erythrocytes /leukocytes [ratio] in blood 0 NRBC PER 100 WBC 0 04/06 5:28 AM CDT [facility] Not Available [...] 145 mmol/ L 04/06 5:36 AM CDT [facility] Not Available Not Available 12/03/2024 11:56:34 04/06/20 24 04/06/2024 Basic metab olic 1999 panel - Serum or Plasm a potassium [moles/volum e] in serum or plasma 3.5 mmol/ L low: 3.5mmo l/Lhig h: 5.1mmo l/L POTAS SIUM 3.5 3.5 - 5.1 mmol/ L 04/06 5:36 AM CDT [facility] Not Available Not Available 12/03/2024 11:56:34 04/06/20 24 04/06/2024 Basic metab olic 1999 panel - Serum or Plasm a chloride [moles/volum e] in serum or plasma 95 mmol/ L low: 98mmol /Lhigh : 107mmo l/L low CHLOR JULIENNE 95 (L) 98 - 107 mmol/ L 04/06 5:36 AM CDT [facility] Not Available Not Available 12/03/2024 11:56:34 04/06/20 24 04/06/2024 Basic metab olic 1999 panel - Serum or Plasm a carbon dioxide, total [moles/volum e] in serum or plasma 25 mmol/ L low: 22mmol /Lhigh : 30mmol /L CO2, VENOU S 25 22 - 30 mmol/ L 04/06 5:36 AM CDT [facility] Not Available Not Available 12/03/2024 11:56:34 04/06/20 24 04/06/2024 Basic metab olic 1999 panel - Serum or Plasm a anion gap in serum or plasma by calculation 19.5 mmol/ L high: 18mmol /L high ANION GAP 19.5 (H) <18.0 mmol/ L 04/06 5:36 AM CDT [facility] Not Available Not Available 12/03/2024 11:56:34 04/06/20 24 04/06/2024 Basic metab olic 1999 panel - Serum or Plasm a glucose [mass/volume ] in serum or plasma 257 mg/dL low: 70mg/d Lhigh: 99mg/d L high GLUCO SE 257 (H) 70 - 99 mg/dL 04/06 5:36 AM CDT [facility] Not Available Not Available 12/03/2024 11:56:34 04/06/20 24 04/06/2024 Basic metab olic 1999 panel - Serum or Plasm a urea nitrogen [mass/volume ] in serum or plasma 31 mg/dL low: 9mg/dL high: 21mg/d L high BUN 31 (H) 9 - 21 mg/dL 04/06 5:36 AM CDT [facility] Not Available Not Available 12/03/2024 11:56:34 04/06/20 24 04/06/2024 Basic metab olic 1999 panel - Serum or Plasm a creatinine [mass/volume ] in serum or plasma 1.8 mg/dL low: 0.7mg/ dLhigh : 1.3mg/ dL high CREAT ININE , BLOOD 1.80 (H) 0.70 - 1.30 mg/dL 04/06 5:36 AM CDT [facility] Not Available Not Available 12/03/2024 11:56:34 04/06/20 24 04/06/2024 Basic metab olic 1999 panel - Serum or Plasm a urea nitrogen/cre atinine [mass ratio] in serum or plasma 17 text: 12 - 20 ratio BUN/C REATI NINE RATIO 17 12 - 20 ratio 04/06 5:36 AM CDT [facility] [employer] [facility] Not Available Not Available 12/03/2024 11:56:34 04/06/20 24 04/06/2024 Basic metab olic 1999 panel - Serum or Plasm a calcium [mass/volume ] in serum or plasma 7.6 mg/dL low: 8.7mg/ dLhigh : 10.5mg /dL low CALCI UM 7.6 (L) 8.7 - 10.5 mg/dL 04/06 5:36 AM CDT [facility] [email or web address] [facility] Not Available Not Available 12/03/2024 11:56:34 04/06/20 24 04/06/2024 Basic metab olic 1999 panel - Serum or Plasm a glomerular filtration rate [volume rate/area] in serum, plasma or blood by creatinine-b ased formula (MDRD)/1.73 sq M among non black population 53 low: 60 low GFR, ESTIM ATED 53 (L) >=60 04/06 5:36 AM CDT [facility] [email or web address] LAB Not Available Not Available 12/03/2024 11:56:34 04/06/20 24 04/06/2024 Basic metab olic 1999 panel - Serum or Plasm a glomerular filtration rate [volume rate/area] in serum, plasma or blood by creatinine-b ased formula (MDRD)/1.73 sq M among black population 56 low: 60 low GFR, EST. AFRIC AN 56 (L) >=60 04/06 5:36 AM CDT [facility] [email or web address] [facility] Not Available Not Available 12/03/2024 11:56:34 04/06/20 24 04/06/2024 Basic metab olic 2000 panel - Serum or Plasm a glomerular filtration rate [volume rate/area] in serum, plasma or blood by creatinine-b ased formula (MDRD)/1.73 sq M among non black population 47 low: 60 low GFR, EST. NONAF RICAN 47 (L) >=60 04/06 5:36 AM CDT [facility] [employer] [facility] Not Available Not Available 12/03/2024 [...] 4.5 mg/dL 04/06 5:36 AM CDT [facility]ild[facility] LAB Not Available Not Available 12/03/2024 [...] - 2.6 mg/dL 04/06 5:36 AM CDT [facility] Not Available Not Available 12/03/2024 11:56:34 04/06/20 24 04/06/2024 Magne sium [Mass /volu me] in Serum or Plasm a interpretati on and review of laboratory results Normal Not Available Not Available 11/19 11:56:34 04/06/20 24 04/06/2024 Gas panel - Venou s blood oxygen gas flow oxygen delivery system room air O2 STATU S room air 04/06 2:30 AM CDT [facility] Not Available Not Available 12/03/2024 11:56:34 04/06/20 24 04/06/2024 Gas panel - Venou s blood pH of venous blood 7.56 low: 7.34hi gh: 7.43 high PH VENOU S 7.56 (H) 7.34 - 7.43 04/06 2:30 AM CDT [facility] Not Available Not Available 12/03/2024 11:56:34 04/06/20 24 04/06/2024 Gas panel - Venou s blood carbon dioxide [partial pressure] in venous blood 36 text: 41 - 51 mmHg low PCO2 (VENO US) 36 (L) 41 - 51 mmHg 04/06 2:30 AM CDT [facility] Not Available Not Available 12/03/2024 11:56:34 04/06/20 24 04/06/2024 Gas panel - Venou s blood oxygen [partial pressure] in venous blood 114 text: 30 - 50 mmHg high PO2 VENOU S 114 (H) 30 - 50 mmHg 04/06 2:30 AM CDT [facility] Not Available Not Available 12/03/2024 11:56:34 04/06/20 24 04/06/2024 Gas panel - Venou s blood oxygen saturation in venous blood 99 % low: 60%hig h: 85% high O2 SAT JOHNNIE, MEASU RED 99 (H) 60 - 85 % 04/06 2:30 AM CDT [facility] Not Available Not Available 12/03/2024 11:56:34 04/06/20 24 04/06/2024 Gas panel - Venou s blood bicarbonate [moles/volum e] in blood 32 mmol/ L low: 22mmol /Lhigh : 26mmol /L high BICAR BONAT E 32.0 (H) 22.0 - 26.0 mmol/ L 04/06 2:30 AM CDT [facility] G[facility] R LAB Not Available Not Available 12/03/2024 11:56:34 04/06/20 24 04/06/2024 Gas panel - Venou s blood base venous 9.9 mmol/ L low: -2mmol /Lhigh : 3mmol/ L high BASE VENOU S 9.9 (H) -2.0 - 3.0 mmol/ L 04/06 2:30 AM CDT [facility] Gild R LAB Not Available Not Available 12/03/2024 11:56:34 04/06/20 24 04/06/2024 Gas panel - Venou s blood carboxyhemog lobin/hemogl obin.total in blood 2.2 % low: 0%high : 5% CARBO XYHEM OGLOB IN 2.2 0.0 - 5.0 % 04/06 2:30 AM CDT [facility] Not Available Not Available 12/03/2024 11:56:34 04/06/20 24 04/06/2024 Gas panel - Venou s blood methemoglobi n/hemoglobin .total in blood 0.4 % low: 0%high : 1.5% METHE MOGLO BIN 0.4 0.0 - 1.5 % 04/06 2:30 AM CDT [facility] R LAB Not Available Not Available 12/03/2024 [...] drawn from a centr al venou s [address]). The perip heral venou s pH [...] - 7.43 04/05 11:28 PM CDT [facility] Not Available Not Available 12/03/2024 11:56:34 04/06/20 24 04/06/2024 pH of Venou s blood interpretati on and review of laboratory results Abnorm al Not Available Not Available 11:56:34 09/03/19 25 09/04/2024 LIPID PANEL cholesterol, total 256 mg/dL 100-19 9 above high normal Not Available [facility] & [address], [address], 09/04/2024 10:16:04 09/03/19 25 09/04/2024 LIPID PANEL triglyceride s 125 mg/dL 0-149 Not Available [address], [address], 09/04/2024 10:16:04 09/03/19 25 09/04/2024 LIPID PANEL HDL cholesterol 49 mg/dL >39 Not Available [address], [address], 09/04/2024 10:16:04 09/03/19 25 09/04/2024 LIPID PANEL VLDL cholesterol kiersten 23 mg/dL 5-40 Not Available [address], [address], 09/04/2024 10:16:04 09/03/19 25 09/04/2024 LIPID PANEL LDL chol calc (nih) 184 mg/dL 0-99 above high normal Not Available [address], [address], 09/04/2024 10:16:04 09/03/19 25 09/04/2024 COMP. METAB OLIC PANEL (14) glucose 108 mg/dL 70-99 above high normal Not Available [address], [address], 09/04/2024 10:16:06 09/03/19 25 09/04/2024 COMP. METAB OLIC PANEL (14) BUN 18 mg/dL 6-20 Not Available [address], [address], 09/04/2024 10:16:06 09/03/19 25 09/04/2024 COMP. METAB OLIC PANEL (14) creatinine 0.99 mg/dL 0.76-1 .27 Not Available [address], [address], 09/04/2024 10:16:06 09/03/19 25 09/04/2024 COMP. METAB OLIC PANEL (14) eGFR 108 mL/mi n/1.7 3 >59 Not Available [address], [address], 09/04/2024 10:16:06 09/03/19 25 09/04/2024 COMP. METAB OLIC PANEL (14) BUN/creatini ne ratio 18 9-20 Not Available [address], [address], 09/04/2024 10:16:06 09/03/19 25 09/04/2024 COMP. METAB OLIC PANEL (14) sodium 142 mmol/ L 134-14 4 Not Available [address], [address], 09/04/2024 10:16:06 09/03/19 25 09/04/2024 COMP. METAB OLIC PANEL (14) potassium 5.4 mmol/ L 3.5-5. 2 above high normal Not Available [address], [address], 09/04/2024 10:16:06 09/03/19 25 09/04/2024 COMP. METAB OLIC PANEL (14) chloride 104 mmol/ L 96-106 Not Available [address], [address], 09/04/2024 10:16:06 09/03/19 25 09/04/2024 COMP. METAB OLIC PANEL (14) carbon dioxide, total 23 mmol/ L 20-29 Not Available [address], [address], 09/04/2024 10:16:06 09/03/19 25 09/04/2024 COMP. METAB OLIC PANEL (14) calcium 9.8 mg/dL 8.7-10 .2 Not Available [address], [address], 09/04/2024 10:16:06 09/03/19 25 09/04/2024 COMP. METAB OLIC PANEL (14) protein, total 7.2 g/dL 6.0-8. 5 Not Available [address], [address], 09/04/2024 10:16:06 09/03/19 25 09/04/2024 COMP. METAB OLIC PANEL (14) albumin 4.6 g/dL 4.3-5. 2 Not Available [address], [address], 09/04/2024 10:16:06 09/03/19 25 09/04/2024 COMP. METAB OLIC PANEL (14) globulin, total 2.6 g/dL 1.5-4. 5 Not Available [address], [address], 09/04/2024 10:16:06 09/03/19 25 09/04/2024 COMP. METAB OLIC PANEL (14) bilirubin, total 0.2 mg/dL 0.0-1. 2 Not Available [address], [address], 09/04/2024 10:16:06 09/03/19 25 09/04/2024 COMP. METAB OLIC PANEL (14) alkaline phosphatase 92 IU/L 44-121 Not Available [address], [address], 09/04/2024 10:16:06 09/03/19 25 09/04/2024 COMP. METAB OLIC PANEL (14) AST (SGOT) 16 IU/L 0-40 Not Available [facility] & [address], [address], 09/04/2024 10:16:06 09/03/1909/04/2024 COMP. METAB OLIC PANEL (14) ALT (SGPT) 11 IU/L 0-44 Not Available [address], [address], 09/04/2024 10:16:06 09/03/1909/04/2024 CARDI OVASC ULAR REPOR T interpretati on Note Suppl ement al repor t is avail able. Not Available [address], [address], 09/04/2024 10:16:07 09/03/1909/04/2024 CARDI OVASC ULAR REPOR T pdf . Not Available [facility] & [address], [address], 09/04/2024 10:16:07 09/03/1909/04/2024 CBC, PLATE LET, NO DIFFE RENTI AL WBC 7.8 x10e3 /uL 3.4-10 .8 Not Available [address], [address], 09/04/2024 10:16:08 09/03/1909/04/2024 CBC, PLATE LET, NO DIFFE RENTI AL RBC 4.95 x10e6 /uL 4.14-5 .80 Not Available [address], [address], 09/04/2024 10:16:08 09/03/1909/04/2024 CBC, PLATE LET, NO DIFFE RENTI AL hemoglobin 13.8 g/dL 13.0-1 7.7 Not Available [facility] & [address], [address], 09/04/2024 10:16:08 09/03/1909/04/2024 CBC, PLATE LET, NO DIFFE RENTI AL hematocrit 43.6 % 37.5-5 1.0 Not Available [address], [address], 09/04/2024 10:16:08 09/03/1909/04/2024 CBC, PLATE LET, NO DIFFE RENTI AL MCV 88 fL 79-97 Not Available [address], [address], 09/04/2024 10:16:08 09/03/1909/04/2024 CBC, PLATE LET, NO DIFFE RENTI AL MCH 27.9 pg 26.6-3 3.0 Not Available [address], [address], 09/04/2024 10:16:08 09/03/1909/04/2024 CBC, PLATE LET, NO DIFFE RENTI AL MCHC 31.7 g/dL 31.5-3 5.7 Not Available [address], [address], 09/04/2024 10:16:08 09/03/1909/04/2024 CBC, PLATE LET, NO DIFFE RENTI AL RDW 13.8 % 11.6-1 5.4 Not Available [address], [address], 09/04/2024 10:16:08 09/03/1909/04/2024 CBC, PLATE LET, NO DIFFE RENTI AL platelets 415 x10e3 /uL 150-45 0 Not Available [address], [address], 09/04/2024 10:16:08 09/03/19 25 09/03/2024 HbA1c (hemo globi n A1c), blood HbA1c 9.0 Not Available In-Office Order Internal Use Only DO Not Attach Compendium DO Not Attach Compendium, Do Not Delete/merge, [id number] 09/03/2024 12:01:31 10/17/19 25 10/16/2024 Gluco se [Mass /volu me] in Blood glucose [mass/volume ] in blood 94 mg/dL low: 70mg/d Lhigh: 99mg/d L GLUCO SE,BE DSIDE POCT 94 70 - 99 mg/dL 10/16 8:08 AM CDT [facility] Not Available Not Available [...] Inval id 10/16 7:39 AM CDT [facility] [...] Negat yen, Error 10/16 7:05 AM CDT [facility] Not Available Not Available 12/03/2024 [...] yen Negat yen 10/16 7:05 AM CDT [facility] Not Available Not Available 12/03/2024 [...] yen Negat yen 10/16 7:05 AM CDT [facility] Not Available Not Available 12/03/2024 [...] Not Detec leodan) 10/16 7:05 AM CDT [facility] Not Available Not Available 12/03/2024 [...] 145 mmol/ L 10/16 6:47 AM CDT [facility] Not Available Not Available 12/03/2024 11:57:27 10/17/1910/16/2024 Basic metab olic 1999 panel - Serum or Plasm a potassium [moles/volum e] in serum or plasma 4.1 mmol/ L low: 3.5mmo l/Lhig h: 5.1mmo l/L POTAS SIUM 4.1 3.5 - 5.1 mmol/ L 10/16 6:47 AM CDT [facility] Not Available Not Available 12/03/2024 11:57:27 10/17/1910/16/2024 Basic metab olic 1999 panel - Serum or Plasm a chloride [moles/volum e] in serum or plasma 113 mmol/ L low: 98mmol /Lhigh : 107mmo l/L high CHLOR JULIENNE 113 (H) 98 - 107 mmol/ L 10/16 6:47 AM CDT [facility] Not Available Not Available 12/03/2024 11:57:27 10/17/19 25 10/16/2024 Basic metab olic 1999 panel - Serum or Plasm a carbon dioxide, total [moles/volum e] in serum or plasma 22 mmol/ L low: 22mmol /Lhigh : 30mmol /L CO2, VENOU S 22 22 - 30 mmol/ L 10/16 6:47 AM CDT [facility] Not Available Not Available 12/03/2024 11:57:27 10/17/19 25 10/16/2024 Basic metab olic 2000 panel - Serum or Plasm a anion gap in serum or plasma by calculation 12.1 mmol/ L high: 18mmol /L ANION GAP 12.1 <18.0 mmol/ L 10/16 6:47 AM CDT [facility] Not Available Not Available 12/03/2024 11:57:27 10/17/19 25 10/16/2024 Basic metab olic 1999 panel - Serum or Plasm a glucose [mass/volume ] in serum or plasma 107 mg/dL low: 70mg/d Lhigh: 99mg/d L high GLUCO SE 107 (H) 70 - 99 mg/dL 10/16 6:47 AM CDT [facility] Not Available Not Available 12/03/2024 11:57:27 10/17/19 25 10/16/2024 Basic metab olic 1999 panel - Serum or Plasm a urea nitrogen [mass/volume ] in serum or plasma 24 mg/dL low: 9mg/dL high: 21mg/d L high BUN 24 (H) 9 - 21 mg/dL 10/16 6:47 AM T [facility] Not Available Not Available 12/03/2024 11:57:27 10/17/19 25 10/16/2024 Basic metab olic 1999 panel - Serum or Plasm a creatinine [mass/volume ] in serum or plasma 1.15 mg/dL low: 0.7mg/ dLhigh : 1.3mg/ dL CREAT ININE , BLOOD 1.15 0.70 - 1.30 mg/dL 10/16 6:47 AM CDT [facility] Not Available Not Available 12/03/2024 11:57:27 10/17/19 25 10/16/2024 Basic metab olic 1999 panel - Serum or Plasm a urea nitrogen/cre atinine [mass ratio] in serum or plasma 21 text: 12 - 20 ratio high BUN/C REATI NINE RATIO 21 (H) 12 - 20 ratio 10/16 6:47 AM CDT [facility] [employer] [facility] Not Available Not Available 12/03/2024 11:57:27 10/17/19 25 10/16/2024 Basic metab olic 2000 panel - Serum or Plasm a calcium [mass/volume ] in serum or plasma 9 mg/dL low: 8.7mg/ dLhigh : 10.5mg /dL CALCI UM 9.0 8.7 - 10.5 mg/dL 10/16 6:47 AM CDT [facility] [employer] [employer] [facility] Not Available Not Available 12/03/2024 11:57:27 10/17/19 25 10/16/2024 Basic metab olic 2000 panel - Serum or Plasm a glomerular filtration rate [volume rate/area] in serum, plasma or blood by creatinine-b ased formula (CKD-epi 2020)/1.73 sq M low: 60 GFR, ESTIM ATED >60 >=60 10/16 6:47 AM CDT [facility] [employer] [facility] LAB Not Available Not Available 12/03/2024 11:57:27 10/17/19 25 10/16/2024 Basic metab olic 2000 panel - Serum or Plasm a glomerular filtration rate [volume rate/area] in serum, plasma or blood by creatinine-b ased formula (MDRD)/1.73 sq M among black population low: 60 GFR, EST. AFRIC AN >60 >=60 10/16 6:47 AM CDT [facility] [employer] [facility] LAB Not Available Not Available 12/03/2024 11:57:27 10/17/19 25 10/16/2024 Basic metab olic 2000 panel - Serum or Plasm a glomerular filtration rate [volume rate/area] in serum, plasma or blood by creatinine-b ased formula (MDRD)/1.73 sq M among non black population low: 60 GFR, EST. NONAF RICAN >60 >=60 10/16 6:47 AM CDT [facility] [employer] [facility] Not Available Not [...] g/dL 10/16 3:06 AM CDT [facility] Not Available Not Available 12/03/2024 11:57:27 10/17/19 25 10/16/2024 CBC W Auto Diffe renti al panel - Blood hematocrit [volume fraction] of blood by automated count 42.9 % low: 38%hig h: 50% HEMAT OCRIT (HCT) 42.9 38.0 - 50.0 % 10/16 3:06 AM CDT [facility] Not Available Not Available 12/03/2024 11:57:27 10/17/19 25 10/16/2024 CBC W Auto Diffe renti al panel - Blood MCV [entitic mean volume] in red blood cells by automated count 87.6 fL low: 82fLhi gh: 96fL MCV 87.6 82.0 - 96.0 fL 10/16 3:06 AM CDT [facility] Not Available Not Available 12/03/2024 11:57:27 10/17/19 25 10/16/2024 CBC W Auto Diffe renti al panel - Blood MCH [entitic mass] by automated count 29.2 pg low: 26pghi gh: 32pg MCH 29.2 26.0 - 32.0 pg 10/16 3:06 AM CDT [facility] Not Available Not Available 12/03/2024 11:57:27 10/17/19 25 10/16/2024 CBC W Auto Diffe renti al panel - Blood MCHC [entitic mass/volume] in red blood cells by automated count 33.3 g/dL low: 31g/dL high: 36g/dL MCHC 33.3 31.0 - 36.0 g/dL 10/16 3:06 AM CDT [facility] Not Available Not Available 12/03/2024 11:57:27 10/17/19 25 10/16/2024 CBC W Auto Diffe renti al panel - Blood platelets [#/volume] in blood 315 text: 140 - 440 10(3)/ mcL PLATE LET COUNT 315 140 - 440 10(3) /mcL 10/16 3:06 AM CDT [facility] Not Available Not Available 12/03/2024 11:57:27 10/17/19 25 10/16/2024 CBC W Auto Diffe renti al panel - Blood erythrocyte [distwidth] in red blood cells by automated count 13.5 % low: 11.8%h igh: 15.5% RDW 13.5 11.8 - 15.5 % 10/16 3:06 AM CDT [facility] Not Available Not Available 12/03/2024 11:57:27 10/17/19 25 10/16/2024 CBC W Auto Diffe renti al panel - Blood platelet [entitic mean volume] in blood by automated count 10.6 fL low: 8fLhig h: 12.6fL MPV 10.6 8.0 - 12.6 fL 10/16 3:06 AM CDT [facility] Not Available Not Available 12/03/2024 11:57:27 10/17/19 25 10/16/2024 CBC W Auto Diffe renti al panel - Blood neutrophils/ leukocytes in blood by automated count 87.6 % low: 40%hig h: 68% high NEUTR OPHIL S 87.6 (H) 40.0 - 68.0 % 10/16 3:06 AM CDT [facility] Not Available Not Available 12/03/2024 11:57:27 10/17/19 25 10/16/2024 CBC W Auto Diffe renti al panel - Blood lymphocytes/ leukocytes in blood by automated count 9.3 % low: 19%hig h: 49% low LYMPH OCYTE S 9.3 (L) 19.0 - 49.0 % 10/16 3:06 AM CDT [facility] Not Available Not Available 12/03/2024 11:57:27 10/17/19 25 10/16/2024 CBC W Auto Diffe renti al panel - Blood monocytes/le ukocytes in blood by automated count 2.7 % low: 3%high : 13% low MONOC YTES 2.7 (L) 3.0 - 13.0 % 10/16 3:06 AM CDT [facility] Not Available Not Available 12/03/2024 11:57:27 10/17/19 25 10/16/2024 CBC W Auto Diffe renti al panel - Blood eosinophils/ leukocytes in blood by automated count 0 % low: 0%high : 8% EOSIN OPHIL S 0.0 0.0 - 8.0 % 10/16 3:06 AM [facility] Not [facility] Not Available 12/03/2024 11:57:27 10/17/19 25 10/16/2024 CBC W Auto Diffe renti al panel - Blood basophils/le ukocytes in blood by automated count 0.4 % low: 0%high : 1% BASOP HILS 0.4 0.0 - 1.0 % 10/16 3:06 AM [facility] Not Available Not Available 12/03/2024 11:57:27 10/17/19 25 10/16/2024 CBC W Auto Diffe renti al panel - Blood neutrophils [#/volume] in blood by automated count 13.16 text: 1.40 - 5.30 10(3)/ mcL high ABSOL [place] NEUTR OPHIL S 13.16 (H) 1.40 - 5.30 10(3) /mcL 10/16 3:06 AM [facility] Not Available Not Available 12/03/2024 11:57:27 10/17/19 25 10/16/2024 CBC W Auto Diffe renti al panel - Blood lymphocytes [#/volume] in blood by automated count 1.39 text: 0.90 - 3.30 10(3)/ mcL [facility] [place] LYMPH OCYTE S 1.39 0.90 - 3.30 10(3) /mcL 10/16 3:06 AM [facility] Not Available Not Available 12/03/2024 11:57:27 10/17/19 25 10/16/2024 CBC W Auto Diffe renti al panel - Blood monocytes [#/volume] in blood by automated count 0.41 text: 0.10 - 0.90 10(3)/ mcL [facility] [place] MONOC YTES 0.41 0.10 - 0.90 10(3) /mcL 10/16 3:06 AM CDT [facility] Not Available Not Available 12/03/2024 11:57:27 10/17/19 25 10/16/2024 CBC W Auto Diffe renti al panel - Blood eosinophils [#/volume] in blood by automated count 0 text: 0.00 - 0.50 10(3)/ mcL [facility] [place] EOSIN OPHIL 0.00 0.00 - 0.50 10(3) /mcL 10/16 3:06 AM CDT [facility] Not Available Not Available 12/03/2024 11:57:27 10/17/19 25 10/16/2024 CBC W Auto Diffe renti al panel - Blood basophils [#/volume] in blood by automated count 0.06 text: 0.00 - 0.10 10(3)/ mcL [facility] [place] BASOP HILS 0.06 0.00 - 0.10 10(3) /mcL 10/16 3:06 AM CDT [facility] Not Available Not Available 12/03/2024 11:57:27 10/17/19 25 10/16/2024 CBC W Auto Diffe renti al panel - Blood nucleated erythrocytes /leukocytes [ratio] in blood 0 NRBC PER 100 WBC 0 10/16 3:06 AM CDT [facility] Not Available [...] 7.34 - 7.43 10/16 3:04 AM CDT [facility] Not Available Not Available 12/03/2024 11:57:27 10/17/19 25 10/16/2024 Gas panel - Venou s blood carbon dioxide [partial pressure] in venous blood 23 text: 41 - 51 mmHg low PCO2 (VENO US) 23 (L) 41 - 51 mmHg 10/16 3:04 AM CDT [facility] Not Available [...] 3:04 AM CDT [facility] Not Available Not Available 12/03/2024 11:57:27 10/17/19 25 10/16/2024 Gas panel - Venou s blood bicarbonate [moles/volum e] in blood 16.7 mmol/ L low: 22mmol /Lhigh : 26mmol /L low BICAR BONAT E 16.7 (L) 22.0 - 26.0 mmol/ L 10/16 3:04 AM CDT [facility] Not Available Not Available 12/03/2024 11:57:27 10/17/19 25 10/16/2024 Gas panel - Venou s blood base venous -4.6 mmol/ L low: -2mmol /Lhigh : 3mmol/ L low BASE VENOU S -4.6 (L) -2.0 - 3.0 mmol/ L 10/16 3:04 AM CDT [facility] Not Available Not Available 12/03/2024 11:57:27 10/17/19 25 10/16/2024 Gas panel - Venou s blood carboxyhemog lobin/hemogl obin.total in blood 0.5 % low: 0%high : 5% CARBO XYHEM OGLOB IN 0.5 0.0 - 5.0 % 10/16 3:04 AM CDT [facility] Not Available Not Available 12/03/2024 11:57:27 10/17/19 25 10/16/2024 Gas panel - Venou s blood methemoglobi n/hemoglobin .total in blood 0.7 % low: 0%high : 1.5% METHE MOGLO BIN 0.7 0.0 - 1.5 % 10/16 3:04 AM CDT [facility] Not Available Not Available [...] 78 U/L 10/16 3:36 AM CDT [facility] Not Available [...] <10 <10 mg/dL 10/16 3:36 AM CDT [facility] Not Available Not [...] mmol/ L 03/28 /2025 3:36 AM CDT [facility] Not Available Not Available 12/03/2024 11:57:27 10/17/19 25 10/16/2024 Compr ehens yen metab olic 1999 panel - Serum or Plasm a potassium [moles/volum e] in serum or plasma 4.2 mmol/ L low: 3.5mmo l/Lhig h: 5.1mmo l/L POTAS SIUM 4.2 3.5 - 5.1 mmol/ L 10/16 3:36 AM CDT [facility] Not Available Not Available 12/03/2024 11:57:27 10/17/19 25 10/16/2024 Compr ehens yen metab olic 1999 panel - Serum or Plasm a chloride [moles/volum e] in serum or plasma 107 mmol/ L low: 98mmol /Lhigh : 107mmo l/L CHLOR JULIENNE 107 98 - 107 mmol/ L 10/16 3:36 AM CDT [facility] Not Available Not Available 12/03/2024 11:57:27 10/17/19 25 10/16/2024 Compr ehens yen metab olic 1999 panel - Serum or Plasm a carbon dioxide, total [moles/volum e] in serum or plasma 15 mmol/ L low: 22mmol /Lhigh : 30mmol /L low CO2, VENOU S 15 (L) 22 - 30 mmol/ L 10/16 3:36 AM CDT [facility] Not Available Not Available 12/03/2024 11:57:27 10/17/19 25 10/16/2024 Compr ehens yen metab olic 1999 panel - Serum or Plasm a anion gap in serum or plasma by calculation 23.2 mmol/ L high: 18mmol /L high ANION GAP 23.2 (H) <18.0 mmol/ L 10/16 3:36 AM CDT [facility] Not Available Not Available 12/03/2024 11:57:27 10/17/19 25 10/16/2024 Compr ehens yen metab olic 1999 panel - Serum or Plasm a glucose [mass/volume ] in serum or plasma 256 mg/dL low: 70mg/d Lhigh: 99mg/d L high GLUCO SE 256 (H) 70 - 99 mg/dL 10/16 3:36 AM CDT [facility] Not Available Not Available 12/03/2024 11:57:27 10/17/19 25 10/16/2024 Compr ehens yen metab olic 1999 panel - Serum or Plasm a urea nitrogen [mass/volume ] in serum or plasma 23 mg/dL low: 9mg/dL high: 21mg/d L high BUN 23 (H) 9 - 21 mg/dL 10/16 3:36 AM CDT [facility] Not Available Not Available 12/03/2024 11:57:27 10/17/19 25 10/16/2024 Compr Glistenens yen metab olic 1999 panel - Serum or Plasm a creatinine [mass/volume ] in serum or plasma 1.21 mg/dL low: 0.7mg/ dLhigh : 1.3mg/ dL CREAT ININE , BLOOD 1.21 0.70 - 1.30 mg/dL 10/16 3:36 AM CDT [facility] Not Available Not Available 12/03/2024 11:57:27 10/17/19 25 10/16/2024 Compr Glistenens yen metab olic 1999 panel - Serum or Plasm a urea nitrogen/cre atinine [mass ratio] in serum or plasma 19 text: 12 - 20 ratio BUN/C REATI NINE RATIO 19 12 - 20 ratio 10/16 3:36 AM CDT [facility] Not Available Not Available 12/03/2024 11:57:27 10/17/19 25 10/16/2024 Compr Glistenens yen metab olic 1999 panel - Serum or Plasm a protein [mass/volume ] in serum or plasma 7.9 g/dL low: 6g/dLh igh: 8g/dL TOTAL PROTE IN 7.9 6.0 - 8.0 g/dL 10/16 3:36 AM CDT [facility] Not Available Not Available 12/03/2024 11:57:27 10/17/19 25 10/16/2024 Compr ehens yen metab olic 1999 panel - Serum or Plasm a albumin [mass/volume ] in serum or plasma 4.7 g/dL low: 3.5g/d Lhigh: 5g/dL ALBUM IN 4.7 3.5 - 5.0 g/dL 10/16 3:36 AM CDT [facility] Not Available Not Available 12/03/2024 11:57:27 10/17/19 25 10/16/2024 Compr ehens yen metab olic 2000 panel - Serum or Plasm a albumin/glob ulin [mass ratio] in serum or plasma 1.5 low: 1high: 2.2 A/G RATIO 1.5 1.0 - 2.2 10/16 3:36 AM CDT [facility] Not Available Not Available 12/03/2024 11:57:27 10/17/19 25 10/16/2024 Compr ehens yen metab olic 1999 panel - Serum or Plasm a calcium [mass/volume ] in serum or plasma 9.2 mg/dL low: 8.7mg/ dLhigh : 10.5mg /dL CALCI UM 9.2 8.7 - 10.5 mg/dL 10/16 3:36 AM CDT [facility] Not Available Not Available 12/03/2024 11:57:27 10/17/19 25 10/16/2024 Compr ehens yen metab olic 1999 panel - Serum or Plasm a bilirubin.to su [mass/volume ] in serum or plasma 0.7 mg/dL low: 0.2mg/ dLhigh : 1.2mg/ dL T BILI 0.7 0.2 - 1.2 mg/dL 10/16 3:36 AM CDT [facility] Not Available Not Available 12/03/2024 11:57:27 10/17/19 25 10/16/2024 Compr ehens yen metab olic 2000 panel - Serum or Plasm a aspartate aminotransfe rase [enzymatic activity/vol ume] in serum or plasma 28 U/L high: 43U/L SGOT (AST) 28 <43 U/L 10/16 3:36 AM CDT [facility] Not Available Not Available 12/03/2024 11:57:27 10/17/19 25 10/16/2024 Compr ehens yen metab olic 1999 panel - Serum or Plasm a alanine aminotransfe rase [enzymatic activity/vol ume] in serum or plasma 17 U/L high: 56U/L SGPT (ALT) 17 <56 U/L 10/16 3:36 AM CDT [facility] Not Available Not Available 12/03/2024 11:57:27 10/17/19 25 10/16/2024 Compr ehens yen metab olic 1999 panel - Serum or Plasm a alkaline phosphatase [enzymatic activity/vol ume] in serum or plasma 78 U/L low: 40U/Lh igh: 150U/L ALKAL INE PHOSP HATAS E 78 40 - 150 U/L 10/16 3:36 AM CDT [facility] Not Available Not Available 12/03/2024 11:57:27 10/17/19 25 10/16/2024 Compr ehens yen metab olic 2000 panel - Serum or Plasm a glomerular filtration rate [volume rate/area] in serum, plasma or blood by creatinine-b ased formula (CKD-epi 2020)/1.73 sq M low: 60 GFR, ESTIM ATED >60 >=60 10/16 3:36 AM CDT [facility] R [facility] Not Available Not Available 12/03/2024 11:57:27 10/17/1910/16/2024 Compr ehens yen metab olic 2000 panel - Serum or Plasm a glomerular filtration rate [volume rate/area] in serum, plasma or blood by creatinine-b ased formula (MDRD)/1.73 sq M among black population low: 60 GFR, EST. AFRIC AN >60 >=60 10/16 3:36 AM CDT [facility] Not Available Not Available 12/03/2024 11:57:27 10/17/19 25 10/16/2024 Compr ehens yen metab olic 2000 panel - Serum or Plasm a glomerular filtration rate [volume rate/area] in serum, plasma or blood by creatinine-b ased formula (MDRD)/1.73 sq M among non black population low: 60 GFR, EST. NONAF RICAN >60 >=60 10/16 3:36 AM CDT [facility] Not Available Not [...] Not Available 01/06/2025 04:45:54 12/25/19 25 12/24/2024 [facility] [employer] olic 1999 panel - Serum or Plasm [...] Not Available 01/06/2025 04:45:54 12/25/19 25 12/24/2024 [facility] - Serum or Plasm a carbon dioxide, total [moles/volum e] in serum or plasma 21 mmol/ L low: 22mmol /Lhigh : 30mmol /L low Not Available Not Available 01/06/2025 04:45:54 12/25/19 25 12/24/2024 [facility] [employer] olic 1999 panel - Serum or Plasm a anion gap in serum or plasma by calculation 20.8 mmol/ L high: 18mmol /L high Not Available Not Available 01/06/2025 04:45:54 12/25/19 25 12/24/2024 [facility] [employer] olic 1999 panel - Serum or Plasm a glucose [mass/volume ] in serum or plasma 204 mg/dL low: 70mg/d Lhigh: 99mg/d L high Not Available Not Available 01/06/2025 04:45:54 12/25/19 25 12/24/2024 [facility] [employer] olic 1999 panel - Serum or Plasm a urea nitrogen [mass/volume ] in serum or plasma 27 mg/dL low: 9mg/dL high: 21mg/d L high Not Available Not Available 01/06/2025 04:45:54 12/25/19 25 12/24/2024 [facility] [employer] olic 1999 panel - Serum or Plasm a creatinine [mass/volume ] in serum or plasma 1.31 mg/dL low: 0.7mg/ dLhigh : 1.3mg/ dL high Not Available Not Available 01/06/2025 04:45:54 12/25/19 25 12/24/2024 [facility] [employer] [facility] 1999 panel - Serum or Plasm a urea nitrogen/cre atinine [mass ratio] in serum or plasma 21 text: 12 - 20 ratio high Not Available Not Available 01/06/2025 04:45:54 12/25/19 25 12/24/2024 [facility] [employer] [facility] 1999 panel - Serum or Plasm a protein [mass/volume ] in serum or plasma 8.4 g/dL low: 6g/dLh igh: 8g/dL high Not Available Not Available 01/06/2025 04:45:54 12/25/19 25 12/24/2024 [facility] [employer] [facility] 1999 panel - Serum or Plasm a albumin [mass/volume ] in serum or plasma 5.1 g/dL low: 3.5g/d Lhigh: 5g/dL high Not Available Not Available 01/06/2025 04:45:54 12/25/19 25 12/24/2024 [facility] [employer] [facility] 1999 panel - Serum or Plasm a albumin/glob ulin [mass ratio] in serum or plasma 1.5 low: 1high: 2.2 Not Available Not Available 01/06/2025 04:45:54 12/25/19 25 12/24/2024 [facility] [employer] [facility] 2000 panel - Serum or Plasm a calcium [mass/volume ] in serum or plasma 9.7 mg/dL low: 8.7mg/ dLhigh : 10.5mg /dL Not Available Not Available 01/06/2025 04:45:54 12/25/19 25 12/24/2024 [facility] [employer] [facility] 1999 panel - Serum or Plasm a bilirubin.to su [mass/volume ] in serum or plasma 1.1 mg/dL low: 0.2mg/ dLhigh : 1.2mg/ dL Not Available Not Available 01/06/2025 04:45:54 12/25/19 25 12/24/2024 [facility] [employer] [facility] 2000 panel - Serum or Plasm a [...] XR, chest No observ ation record ed. [place] [address] [place], [address], 09/18/2024 10:37:26 10/16/19 25 10/15/2024 XR, chest No observ ation record ed. [address], [address], 10/16/2024 09:14:36 10/17/19 25 10/16/2024 CT, abdom en + pelvi s, w/ contr ast No observ ation record ed. [facility] [address] [place], [address], 10/16/2024 15:52:49 Result Notes None recorded. Problems Name Problem SNOMED Code Status Onset Date Resolution Date Notes Provider Name and Address Organization Details Recorded Time Pneumonia 862753176 Active 2017 KAUR Cohen [place] - SICh[facility] 0 11:54:45 Dehydration 21574378 Active 2017 KAUR Contreras, [place] - [facility] 1 14:33:10 Mixed hypercholester olemia and hypertriglycer idemia 837258414 Active 2017 KAUR [place], [place] - S[facility] 0 11:54:46 Type 1 diabetes mellitus 85990256 Active 2017 KAUR [place] - [facility] 0 11:54:45 Diabetic ketoacidosis without coma 501270424 Active 2017 Jeaneth Hamm KAUR ari[place], [place] - S[facility] 1 10:29:24 Problem Notes None recorded. Procedures Surgical History Date Name Laterality Status Provider Name and Address Organization Details Recorded Time Cholecystectomy completed Ruth Annquentin Gramajo [place] - [place] 09/03/2024 11:51:23 Imaging Results None recorded. Procedure Notes None recorded. Medical Equipment None Reported. Allergies Allergen ID Allergen Name Allergen Category Reaction Reaction Severity Criticality Documentation Date Start Date Code Code System Note Provider Name and Address Organization Details Recorded Time [id number] Haldol medicatio n confusion moderate Not available 01/06/2025 80182 9 RxNorm Ruth Ann GramajoKAUR [place], [place] - SIF 5 14:50:39 85653 strawberr y allergeni c extract food rash moderate Not available 03/23/2015 85185 4 RxNorm KAUR Cohen, [place] - SI [...] completed Not Available Not Available Not Available [employer] Ultra Test strips CHECK BLOOD SUGAR 3 [...] Available Not Available Not Available Dexcom G6 Bundle Cutter USE TO CHECK GLUCOSE FOUR TIMES DAILY [...] Updated DateTime 5 170.18 cm 26.3 kg/m2 37578.5 2 g 98 % 98 % 92 /min 16 /min 128/78 mm[Hg] Ruth Ann Gramajo MA [facility] SI 5 11:53:39 Date Recorded Body height Body mass index (BMI) Body weight Respiratory rate Oxygen saturation Oxygen saturation in Arterial blood by Pulse oximetry Heart rate Systolic And Diastolic Provider Name and Address Organization Details Last Updated DateTime 3 170.18 cm 22.7 kg/m2 64979.6 1 g 16 /min 97 % 97 % 95 /min 105/9 mm[Hg] Mary Melendez MA [facility] 3 14:24:52 Date Recorded Body height Body mass index (BMI) Body weight Oxygen saturation Oxygen saturation in Arterial blood by Pulse oximetry Heart rate Respiratory rate Systolic And Diastolic Provider Name and Address Organization Details Last Updated DateTime 5 170.18 cm 23.6 kg/m2 42620.7 3 g 97 % 97 % 74 /min 18 /min 121/73 mm[Hg] Ruth Ann Gramajo MA [facility] SI 5 14:55:53 Date Recorded Body height Body mass index (BMI) Body weight Oxygen saturation Oxygen saturation in Arterial blood by Pulse oximetry Heart rate Respiratory rate Systolic And Diastolic Provider Name and Address Organization Details Last Updated DateTime 3 170.18 cm 23.1 kg/m2 83467.1 8 g 99 % 99 % 97 /min 16 /min 129/65 mm[Hg] Bella Bedoya MA [facility] SI 3 15:15:42 Date Recorded Body height Body mass index (BMI) Body weight Body temperature Oxygen saturation Oxygen saturation in Arterial blood by Pulse oximetry Heart rate Systolic And Diastolic Provider Name and Address Organization Details Last Updated DateTime 2 170.18 cm 24.3 kg/m2 80469.8 2 g 97.3 [degF] 99 % 99 % 90 /min 138/84 mm[Hg] Telma david MA [place] - SI 11:31:36 Social History Question Answer Notes LastModified by Organizat ion Details LastModified Time Tobacco Smoking Status Never Smoker Telma Wade MA null, [place] - SIF 05/30/2022 11:32:23 Animal Exposure? Yes [email or web address] Informat ion not available 03/23/2015 Are You [...] Type Of Diet Are You Following? REGULAR [email or web address] Information not available 03/23/2015 Are There Any Guns Present In Your Home? Yes [email or web address] Information not available 03/23/2015 What Is Your Home Situation? Relatives Lives With Maternal Grandparents [email or web address] Information not available 05/09/2016 Do You Use Insect Repellent Routinely? Yes [email or web address] Information not available 03/23/2015 Live Alone Or With Others? With Others Information not available 05/06/2020 What Was The Date Of Your Most Recent Tobacco Screening? 01/06/2025 Information not available 01/06/2025 What Is Your Parents' Marital Status? Unmarried [email or web address] Information not available 03/23/2015 Pool Exposure No [email or web address] Information not available 03/23/2015 What Is Your Relationship Status? Single Information not available 09/21/2020 Do You Use Your Seat Belt Or Car Seat Routinely? Yes Sometimes Information not available 10/31/2020 Do You Have Any Siblings? 7 Half Sisters 1 Half Brother [email or web address] Information not available 03/23/2015 Do You Have Smoke And Carbon Monoxide Detectors In Your Home? Yes [email or web address] Information not available 03/23/2015 Are You Passively Exposed To Smoke? Yes [email or web address] Information not available 03/23/2015 How Much Tobacco Do You Smoke? No Information not available 08/04/2019 What Types Of Sporting Activities Do You Participate In? Golf Information not available 03/23/2015 General Stress Level Low Information not available 05/06/2020 Do You Use Sunscreen Routinely? Yes [email or web address] Information not available 03/23/2015 Has Tobacco Cessation Counseling Been Provided? No Information not available 10/31/2020 On What Date Was Tobacco Cessation Counseling Provided? 01/06/2025 Information not available 01/06/2025 Year In School 10 [email or web address] Informatio n not available 05/09/2016 Sex: Male [...] 05/30/2022 What is your exercise level? Moderate [email or web address] Information not available 03/23/2015 Mental Status Question Answer Note LastModified by Organizat ion Details LastModified Time Do you feel stressed (tense, restless, nervous, or anxious, or unable to sleep at night)? [id number] restless Information not available 05/30/2022 Are you or have you been involved with bullying? No Information not available 03/23/2015 Family History Nothing Reported. Medical History Condition Response Other N High Blood Pressure N Atrial Fibrillation N Blood Diseases N Blood Clots N COPD N Depression N Developmental or Behavioral Disorders N Premature [...] N Anemia N Constipation N Heart Attack (GA) N Diabetes Y Bedwetting N Seizures/Epilepsy N Heart Problems/Murmur N Allergies N Asthma N Substance Abuse N Hepatitis N Osteoporosis N Heart Failure N Chicken Pox N Autism Spectrum Disorder (ASD) N Immunizations Vaccine Type Date Status Note Provider Nam e and Address Organization Details Recorded Time Meningococcal MCV4O 6 completed Not Available [facility] 08/08/2019 02:32:35 HPV9 6 completed Not Available [facility] 08/08/2019 02:42:35 Influenza, split virus, quadrivalent, PF 6 completed Not Available [facility] 08/08/2019 02:32:34 Hib, unspecified formulation 2 completed Not Available [facility] 01/06/2025 14:43:16 Hep A, pediatric, unspecified formulation 0 completed Not Available [facility] 01/06/2025 14:43:16 Hep B, adolescent or pediatric 0 completed Not Available [facility] 05/07/2023 15:37:51 Hep B, adolescent or pediatric 0 completed Not Available [facility] 05/07/2023 15:37:51 Hep B, adolescent or pediatric 0 completed Not Available [facility] 05/07/2023 15:37:51 DTaP 4 completed Not Available [facility] 05/07/2023 15:37:51 DTaP 0 completed Not Available [facility] 05/07/2023 15:37:51 DTaP 2 completed Not Available [facility] 05/07/2023 15:37:51 DTaP 0 completed Not Available [facility] 05/07/2023 15:37:51 DTaP 0 completed Not Available [facility] 05/07/2023 15:37:51 Hib, unspecified formulation 0 completed Not Available [facility] 05/07/2023 15:37:51 Hib, unspecified formulation 4 completed Not Available [facility] 05/07/2023 15:37:51 Hib, unspecified formulation 0 completed Not Available [facility] 05/07/2023 15:37:51 Hib, unspecified formulation 0 completed Not Available [facility] 05/07/2023 15:37:51 IPV 0 completed Not Available [facility] 05/07/2023 15:37:51 IPV 4 completed Not Available [facility] 05/07/2023 15:37:51 IPV 0 completed Not Available [facility] 05/07/2023 15:37:51 IPV 0 completed Not Available [facility] 05/07/2023 15:37:51 pneumococcal conjugate PCV 7 1 completed Not Available [facility] 05/07/2023 15:37:51 MMR 4 completed Not Available [facility] 05/07/2023 15:37:51 MMR 2 completed Not Available [facility] 05/07/2023 15:37:51 varicella 0 completed Not Available [facility] 05/07/2023 15:37:51 varicella 2 completed Not Available [facility] 05/07/2023 15:37:51 influenza, unspecified formulation 2 completed Not Available [facility] 05/07/2023 15:37:51 influenza, unspecified formulation 0 completed Not Available [facility] 05/07/2023 15:37:51 influenza, unspecified formulation 4 completed Not Available [facility] 05/07/2023 15:37:51 meningococcal MCV4, unspecified formulation 2 completed Not Available [facility] 05/07/2023 15:37:51 Tdap 0 completed Not Available [facility] 05/07/2023 15:37:51 Hep A, ped/adol, 2 dose 6 completed Not Available [facility] 05/07/2023 15:37:51 Hep A, ped/adol, 2 dose 5 completed Not Available [facility] 05/07/2023 15:37:51 HPV, quadrivalent 4 completed Not Available [facility] 05/07/2023 15:37:51 HPV9 5 completed Not Available [facility] 08/08/2019 02:46:07 Past Encounters Encounter ID Performer Location Encounter Start Date Encounter Closed Date Diagnosis/Indication Diagnosis SNOMED-CT Code Diagnosis ICD10 Code Diagnosis Note [id number] MD María Mendez (Peds) [address] [place] [address] [place] [address] 03/23/2015 11:08:16 03/23/2015 12:29:38 Well child 806469330 Routine adolescent care discussed safety and school performanc e discussed healthy weight with diet and exercise Type 1 ignacio betes mellitus 68952204 Routine f/u with endocrinol ogy. Daily BS monitoring . [id number] MD María Mendez (Peds) [address] [place] [address] 05/09/2016 15:46:21 05/09/2016 17:18:51 Well child 879405207 Z00.129 Routine adolescent care discussed safety and school performanc e discussed healthy weight with diet and exercise Type 1 ignacio betes mellitus 39455477 E10.8 Routine f/u with endocrinol ogy. Daily BS monitoring . [id number] SACHIN Mendez [address] [place] [address] 03/18/2019 11:43:52 03/18/2019 12:43:28 Type 1 diabetes mellitus 63106655 E10.9 [id number] SACHIN Mendez [address] [place] [address] 06/09/2019 17:42:26 06/09/2019 18:58:04 Uncontrolled type 1 diabetes mellitus 857877513 E10.65 [id number] Prashanth Saldana PA-C [facility] [address] [place] [address] 08/04/2019 15:54:01 08/04/2019 17:37:44 Low back pain 578308077 M54.5 Backache w ith radiating pain 121503524 M54.04 [id number] Prashanth Saldana PA-C [facility] [address] [place] [address] 11/20/2019 09:29:53 11/20/2019 19:46:46 [id number] Juan Pemberton MD [facility] [address] [place] [address] 05/06/2020 09:37:24 05/06/2020 12:43:22 Type 1 diabetes mellitus 52020206 E10.9 Secondary erectile dysfunction 051577234 N52.8 Mixed hypercholesterolemia and hypertriglyceridemia [id number] E78.2 [id number] Juan Pemberton MD [facility] [address] [place] [address] 08/02/2020 10:24:01 08/03/2020 08:12:05 Uncontrolled type 1 diabetes mellitus 755254150 E10.65 [id number] Prashanth Saldana PA-C [facility] [address] [place] [address] 09/21/2020 10:21:28 09/22/2020 15:52:19 Paresthesia of lower extremity 074312483 R20.2 Gastroesop hageal reflux disease without esophagitis 227843942 K21.9 Low back pain 797332638 M54.5 Gynecomastia 2042767 N62 [id number] Juan Pemberton MD [facility] [address] [place] [address] 10/31/2020 14:28:27 11/01/2020 09:28:09 Type 1 diabetes mellitus 55217868 E10.9 Mixed hypercholesterolemia and hypertriglyceridemia 262435203 E78.2 Gastro-eso phageal reflux disease with esophagitis 463400083 K21.00 Viral gastroenteritis 11 4064489 A08.19 [id number] Juan Pemberton MD [facility] [address] [place] [address] 01/10/2021 16:45:57 01/18/2021 07:34:35 [id number] Prashanth Saldana PA-C [facility] [address] [place] [address] 05/09/2021 10:30:53 05/09/2021 11:54:35 Type 1 diabetes mellitus without complication 739785309 E10.9 [id number] Prashanth Saldana PA-C [facility] [address] [place] [address] 06/07/2021 16:49:31 06/07/2021 16:56:56 Nausea and vomiting 01437340 R11.2 Javier ordered Diphenhydr amine, was administer ed and pt was advised if didn't help to go to ER, voiced understand ing [id number] Juan Pemberton MD [facility] [address] [place] [address] 11/13/2021 14:35:16 11/13/2021 15:33:50 Type 1 diabetes mellitus 68615810 E10.9 Body mass index 20-24 - normal 937101762 Z68.23 Plantar fasciitis 430174 003 M72.2 [id number] Prashanth Saldana PA-C [facility] [address] [place] [address] 05/30/2022 11:23:14 05/30/2022 12:00:41 Type 1 diabetes mellitus 17891174 E10.9 Diabetic p eripheral neuropathy 842081159 E11.40 Anxiety 59279597 F41.9 Gastroesop hageal reflux disease without esophagitis 271529029 K21.9 Nausea and vomiting 1692 1999 R11.2 Javier ordered Diphenhydr amine, was administer ed and pt was advised if didn't help to go to ER, voiced understand ing Gastropare sis due to type 1 diabetes mellitus 828919973 E10.43 [id number] Prashanth Saldana PA-C [facility] [address] [place] [address] 12/18/2022 14:17:54 12/19/2022 14:24:56 Type 1 diabetes mellitus 42358178 E10.9 Persistent insomnia 1919 57840 G47.09 Mixed anxi ety and depressive disorder 293966731 F41.8 Overweight 689750819 E66 .3 [id number] Prashanth Saldana PA-C [facility] [address] [place] [address] 04/16/2023 15:00:29 04/17/2023 14:26:08 Type 1 diabetes mellitus 71572711 E10.9 Marijuana user 774600305 F12.10 Overweight 071506318 E66 .3 [id number] Juan Pemberton MD [facility] [address] [place] [address] 09/03/2024 11:45:12 09/07/2024 14:32:03 Mixed hypercholesterolemia and hypertriglyceridemia 856098568 E78.2 Type 1 ignacio betes mellitus 19424094 E10.9 Body mass index 20-24 - normal 955863716 Z68.23 [id number] Juan Pemberton MD [facility] [address] [place] [address] 01/06/2025 14:41:12 01/08/2025 08:55:40 Type 1 diabetes mellitus 53880075 E10.69 Body mass index 20-24 - normal 594529151 Z68.23 Health Concerns Section Related Observation LastModified by Organization Detai ls LastModified Time None Recorded Concern Status LastModified by Organization Details LastModified Time None Recorded Advance Directives Directive None Recorded Payers Insurance Date Sequence Insurance Name Policy Number Policy Blankenship Covered Member ID Blankenship Member ID Guarantor Name 01/03/2025 1 [facility] (MEDICAID HMO) [id number] Peter Shore [id number] Peter Shore 04/15/2024 1 [place] [facility] Peter Shore [id number] Peter Shore 04/15/2024 1 [facility] (MEDICAID HMO) [id number] Peter Shore [id number] Peter Shore Notes Date Note Type Note Provider Name and Address Organization Details Recorded Time 05/30/2022 text/html hx of type 1...frequent crashes...hx of gastroparesis...gibson s pain and acidic belching..sugar currently 134...hasnt taken his GERD meds yet... Prashanth Saldana PA-C Attn: [address] [place], [address], [facility] 05/30/2022 11:57:53 12/18/2022 text/html says he cannot sleep...watches movies all night...says his stress levels are high...GERD is present....still smokes a lot of weed...says he gets bored and everybody stresses him out without weed Prashanth Saldana PA-C Attn: [address] [place], [address], [facility] 12/18/2022 14:47:31 04/16/2023 text/html smoked weed.. to ok a nap ..came in and appears stoned.. (when asked about weed grandmother said no and patient said yes)...reports that he has an upcoming appt with endo in april Prashanth Saldana PA-C Attn: [address] [place], [address], [facility] 04/16/2023 15:47:33 09/03/2024 text/html annual check up...says he quit etoh...says he is living healthier..has gained weight...says blood sugars are better...Nay Hamm MA [facility] 09/03/2024 12:18:11 01/06/2025 text/html has a new GI doctor vs diabetic gastroparesis... Prashanth Saldana PA-C Attn: [address] [place], [address], [facility] 01/06/2025 15:19:28
--- OUTSIDE RECORDS SUMMARY | 2025-02-04 10:51 | XMS_ITS | Clinical Summary ---
Author Organization [facility] ospital Address [address] [place] [address] Care Team Providers Care Folding Rules Printing Machine Operator Name Role Phone Con Beltrán MD Unavailable [phone] Prashanth Saldana Primary Care Provider [phone] Sidney Russell MD Unavailable [phone] Allergies Active Allergy Reactions Criticality Noted Date [...] . Assessment & Plan (07/10/2022 9:22 AM WELDING MACHINE OPERATOR PLASMA ARC): This is a chronic condition which is not at goal. Unable to Download as he has a new pump and is not connected on [employer]. Type of insulin pump- tandem T slim [...] of less than 70. Encouraged to contact [employer] and have a new pump shipped Discussed [...] statin Assessment & Plan (07/10/2022 9:19 AM WELDING MACHINE OPERATOR PLASMA ARC): This is a chronic condition which is [...] prescribed. Assessment & Plan (08/04/2020 3:50 AM WELDING MACHINE OPERATOR PLASMA ARC): H/o pancreatitis attributed to hypertriglyceridemia. TGs 215 on 05/27/20. -Continue home fenofibrate and atorvastatin Resolved Problems Problem Noted Date Diagnosed Date Resolved Date Leukocytosis 04/18/2021 04/04/2022 Gallbladder sludge 04/05/2021 Marijuana abuse 04/05/2021 04/04/2022 JACK (acute kidney injury) ([facility]) 10/25/2020 04/04/2022 Diarrhea 10/25/2020 04/04/2022 Hypokalemia 08/04/2020 04/04/2022 Assessment & Plan (08/04/2020 3:59 AM WELDING MACHINE OPERATOR PLASMA ARC): K to 3.2 after hyperglycemia protocol s/p 40 mEq of IV K in ED. -CTM w/ BMP Nausea and vomiting 07/05/2020 04/04/20 22 Assessment & Plan (08/04/2020 4:10 AM WELDING MACHINE OPERATOR PLASMA ARC): Patient has chronic N/V, now presenting w/ 3 days of persistent N/V. No abdominal pain. Lipase 15 on presentation. +MJ use. DDx: cyclic vomiting vs. diabetic gastroparesis. -Zofran prn -Pepcid -Can trial Reglan -Encourage MJ cessation Assessment & Plan (07/05/2020 4:24 PM WELDING MACHINE OPERATOR PLASMA ARC): Etiology likely DKA. Other considerations are PUD [...] 04/04/2022 Assessment & Plan (07/05/2020 4:26 PM WELDING MACHINE OPERATOR PLASMA ARC): Etiology likely DKA. pH is 7.50 (alkalosis) [...] 04/04/2022 Assessment & Plan (08/04/2020 3:41 AM WELDING MACHINE OPERATOR PLASMA ARC): Patient multiple past hospitalizations for DKA, most recently in June presenting w/ DKA after 3 days of persistent N/V. BG was 338 w/ AG 18, bicarb 21, ketones 3.2. BG now in the 100s and AG close after hyperglycemia protocol. A1C 10.5 08/02/20. Is a patient of Dr. Swift at [facility] medical group in [place]. Last seen on 07/25 with plan for [...] f/u. Assessment & Plan (07/05/2020 4:21 PM WELDING MACHINE OPERATOR PLASMA ARC): DKA (ketones 1.4, BG 242, urine glucose [...] insulin regimen is needed at this time. roll machine operator have talked to Peter and [...] Department Care Team Description 01/29/20 25 Telephone [facility] Gastroenterology at [address] [place] [address] Cristin Tejada LPN 01/29/20 25 Telephone [facility] Gastroenterology [address] [place] [address] Medical Office Building [address], [address] [place] [address] Carmen Irving RN IOV scheduling 01/27/20 25 1:30 PM CDT Office Visit [facility] Gastroenterology at [address] [place] [address] Terrence Fitch MD Gastroparesis (Primary Dx); Gastroesophageal reflux disease without esophagitis; Marijuana use 01/27/20 25 10:00 AM CDT Office Visit [facility] Diabetes Endocrine Care at [address] [place] [address] Nay Alford, REYNA Type 1 diabetes mellitus with hyperglycemia (HCC) (Primary Dx); Hypoglycemia; Mixed hyperlipidemia; Tandem T slim Insulin pump in place; Gastroparesis 01/07/20 25 8:00 AM CDT Anesthesia Event [address] [address] Ronaldo Jerome DO Entzeroth, Timothy, CRNA 01/07/20 25 8:00 AM CDT - 01/07/20 25 8:30 AM CDT Surgery [address] [address] Terrence Fitch MD Not Performed ESOPHAGOGASTRODUODENOSCOPY 01/07/20 25 7:27 AM CDT - 01/07/20 25 8:07 AM CDT Hospital Encounter [address] [address] Terrence Fitch MD Discharge Disposition: Discharge to home or self care 01/07/20 25 Telephone [facility] Gastroenterology at [address] [place] [address] Arin Fischer 01/02/20 Results Follow-Up [facility] Gastroenterology at [address] [place] [address] Peter Rivera NP NM Gastric Emptying Study 12/31/19 25 10:13 AM CDT - 12/31/19 25 11:59 PM CDT Hospital Encounter [address] [address] Discharge Disposition: Discharge to home or self care 12/31/19 25 10:13 AM CDT - 12/31/19 25 11:59 PM CDT Hospital Encounter [address] [address] Discharge Disposition: Discharge to home or self care 12/31/19 25 10:13 AM CDT - 12/31/19 25 11:59 PM CDT Hospital Encounter [address] [address] Discharge Disposition: Discharge to home or self care 12/31/19 25 10:13 AM CDT - 12/31/19 25 11:59 PM CDT Hospital Encounter [address] [address] Discharge Disposition: Discharge to home or self care 12/31/19 10:13 AM CDT - 12/31/19 11:59 PM CDT Hospital Encounter [facility] [address] [place] [address] Nausea and vomiting, unspecified vomiting type; Type 1 diabetes mellitus with hyperglycemia (HCC) Discharge Disposition: Discharge to home or self care 12/26/19 Telephone [facility] Gastroenterology at [address] [place] [address] Radhika Cunningham EGD Reschedule 12/22/19 Telephone [facility] Gastroenterology at [address] [place] [address] Evelin Fischer MA 12/18/19 8:15 AM CDT Office Visit [facility] Gastroenterology at [address] [place] [address] Peter Rivera NP Nausea and vomiting, unspecified vomiting type (Primary Dx); Abnormal CT scan, esophagus; Gastroesophageal reflux disease, unspecified whether esophagitis present; Type 1 diabetes mellitus with hyperglycemia (HCC); Tandem T slim Insulin pump in place; Marijuana use; Tobacco use disorder 12/18/19 Telephone [facility] Gastroenterology at [address] [place] [address] Cristin Tejada LPN 12/03/19 4:04 AM CDT - 12/03/19 5:56 PM CDT Hospital Encounter [facility] [address] [place] [address] Marcelina Cleaning MD Masetti, Paolo, MD Type 1 diabetes mellitus with ketoacidosis without coma (HCC) (Primary Dx); Gastroparesis; Nausea and vomiting, unspecified vomiting type Discharge Disposition: Left Against Medical Advice 12/01/19 7:54 AM CDT - 12/01/19 2:36 PM CDT Hospital Encounter [facility] [address] [place] [address] Marcelina Cleaning MD Masetti, Paolo, MD Diabetic ketoacidosis without coma associated with type 1 diabetes mellitus (HCC) (Primary Dx); Hyperemesis Discharge Disposition: Left Against Medical Advice 11/06/19 25 Telephone [facility] Diabetes Endocrine Care at [address] [place] [address] Nay Alford MANAGER EMBALMER FUNERAL DIRECTOR from Last 3 Months Surgical History Surgery [...] drink = 0.6 oz pur e alcohol) [facility] Utilities Answer Date Recorded In the past [...] any clubs o r organizations such as pentecostalism groups, unions, fraternal or athletic groups, or [...] any time in the past 12 [facility], were you homeless or living in a correction (including now)? No 12/02/2024 Personal Safety Answer Date Recorded Have you ever been in or are you currently in a harmful physical or emotional relationship or is someone making you feel afraid or unsafe? Denies 01/06/2025 Sex and Gender Information Value Date Recorded Sex Assigned at Not on file Legal Sex Male 4:12 AM WELDING MACHINE OPERATOR PLASMA ARC Gender Identity Not on file Sexual Orientation [...] DEVICE Routine 11/30/2024 8 :13 AM CDT LIPID PANEL Routine 10/27/2024 8:51 AM CDT Type 1 diabetes mellitus with hyperglycemia (HCC) ALBUMIN CREATININE RATIO, URINE Routine 10/27/2024 8:51 AM CDT Type 1 diabetes mellitus with hyperglycemia (HCC) THYROID FUNCTION CASCADE Routine 10/27/2024 8:51 AM CDT Type 1 diabetes mellitus with hyperglycemia (HCC) DIABETES FOOT EXAM Routine 04/08/2018 from Last [...] Fundus Photograp hy 01/26/2025 us Nay Alford NP [employer]GRAP[employer] Final Result * POCT glucose (01/06/2025 7:53 AM CDT) Glucose, POC 117 70 - 199 mg/dL Blood 01/06/2025 7:5 3 AM CDT 01/06/2025 7:53 AM CDT us Terrence Fitch MD LAB POCT ORDERABLES - DEVICE Fin al Result [facility]A [facility] [place]) 1 [facility] [place] [address] * NM Gastric Emptying Study (12/30/2024 2:53 [...] Shaquille Contreras M.D. LB: [place] Report ID: [id number] Reading Location: [id number] Procedure Note Shaquille Contreras MD - 12/30/2024 [...] Shaquille Contreras M.D. LB: [place] Report ID: [id number] Reading Location: [place] [address] Peter Rivera MANAGER EMBALMER FUNERAL DIRECTOR IMG NM PROCEDURES F inal Result * Infection Prevention MRSA Only (Staphylococcus aureus) PCR Nasal (12/02/2024 4:48 PM CDT) [facility] PCR Scrn, Methicillin resistant Staphylococcus aureus (MRSA) Not Detected Not Detected Comment: Interpretive Data Testing performed using Nucleic Acid Amplification with the [employer] Xpert MRSA NxG Assay. This assay detects target DNA from mecA, mecC and the SCCmec insertion site of Staphylococcus aureus using Real-Time PCR and has been cleared by the FDA. Performance characteristics have been verified by the [facility]. Current Interpretive Data was last revised on 2022 Nasal 12/02/2024 4:48 PM CDT 12/02/2024 4:55 PM CDT Juan Car MD LAB MICROBIOLOGY - GENERAL ADEN NYE Final Result AL[facility]SSA [facility]ER[facility] ([place]) 1 [facility] [place] [address] * eGFR (12/02/2024 4:43 PM CDT) Pathologist [facility] eGFR [...] MD LAB BLOOD ORDERABLES Final Resu lt [facility] ([place]) 1 [facility] [place] [address] * (ABNORMAL) Basic metabolic panel (12/02/2024 4:43 PM CDT) Sodium 136 135 - 145 mmol/L Potassium, pl 3.9 3.3 - 4.9 mmol/L [facility] ([place]) Chloride 100 97 - 110 mmol/L [facility] ([place] CO2 20(L) 22 - 32 [...] ORDERABLES Final Resu lt Performing Organization Address City/[facility]/ZIP Co de Phone Number ALYSSA [facility]ERES ([place]) 1 [facility] [place] [address] * (ABNORMAL) POCT glucose (12/02/2024 4:29 PM CDT) Glucose, POC 309(H) 70 - 199 mg/dL Blood 12/02/2024 4:29 PM CDT 12/02/2024 4:29 PM CDT us Juan Car MD LAB POCT ORDERABLES - DEVICE Fi nal Result Performing Organization Address [facility] Co de Phone Number ALYSSA [facility]ERES ([place]) 1 [facility] [place] [address] * POCT glucose (12/02/2024 12:13 PM CDT) Glucose, POC 156 70 - 199 mg/dL Blood 12/02/2024 12:1 3 PM CDT 12/02/2024 12:13 PM CDT us Juan Car MD LAB POCT ORDERABLES - DEVICE Fi nal Result Performing Organization Address City/[facility]/ZIP Co de Phone Number AL[facility]SSA [facility]ERES ([place]) 1 [facility] [place] [address] * eGFR (12/02/2024 10:25 AM CDT) eGFR [...] ORDERABLES Final Resu lt ALYSSA [facility] ([place]) 1 [facility] [place] [address] * Basic metabolic panel (12/02/2024 10:25 AM CDT) Sodium 143 135 - 145 mmol/L Potassium, pl 3.8 3.3 - 4.9 mmol/L [facility] ([place]) Chloride 106 97 - 110 mmol/L [facility] ([place]) CO2 23 22 - 32 mmol/L [facility] ([place]) Anion gap 14 2 - 15 mmol/L [facility] ([place]) BUN 15 6 - 25 mg/dL [facility] ([place]) Creatinine 0.87 0.80 - 1.30 mg/dL [facility] ([place]) Glucose 92 70 - 199 mg/dL [facility] ([place]) Comment: Interpretive Data Fasting [...] 2022. Calcium 8.5 8.5 - 10.3 mg/dL [facility] ([place]) Blood 12/02/2024 10:2 5 AM CDT 12/02/2024 10:32 AM CDT us Juan Car MD LAB BLOOD ORDERABLES Final Resu lt Performing Organization Address [facility] Co de Phone Number AL[facility]SSA [facility] ([place]) 1 [facility] [place] [address] * POCT glucose (12/02/2024 9:11 AM CDT) Glucose, POC 70 70 - 199 mg/dL Blood 12/02/2024 9:11 AM CDT 12/02/2024 9:11 AM CDT Juan Car MD LAB POCT ORDERABLES - DEVICE Fi nal Result Performing Organization Address [facility] Co de Phone Number ALYSSA [facility] ([place]) 1 [facility] [place] [address] * (ABNORMAL) POCT glucose (12/02/2024 8:55 AM CDT) Glucose, POC 61(L) 70 - 199 mg/dL Blood 12/02/2024 8:55 AM CDT 12/02/2024 8:55 AM CDT Juan Car MD LAB POCT ORDERABLES - DEVICE Fi nal Result Performing Organization Address [facility] de Phone Number [facility] [place] 1 [facility] [place] [address] * XR Chest 1 Vw Portable (12/02/2024 [...] Shaquille Contreras M.D. LB: LB Report ID: [id number] Reading Location: [id number] Procedure Note Shaquille Contreras MD - 12/02/2024 [...] Shaquille Contreras M.D. LB: LB Report ID: [id number] Reading Location: [id number] Marcelina Cleaning MD IMG XR PROCEDURES Final R esult * ECG 12 lead (12/02/2024 7:50 AM CDT) 12/02/2024 7:50 AM CDT Narrative [facility] - 12/02/2024 8:36 AM CDT Vent Rate: 90 bpm RR Interval: 665 msec WV Interval: 159 msec QRS Duration: 85 msec QT Interval: 360 msec QTC Interval: 407 msec P-R-T [place]: 84 - 76 - 76 degrees IMPRESSION: [...] tendency for uric acid stone formation. Source: My Own Med Current Interpretive Data was last revised on 2017 Protein, ur ql 3+(A) Negative [facility] ([place]) Glucose, ur ql 4+(A) Negative [facility] ([place]) Ketones, ur 3+(A) Negative [facility] ([place]) Bilirubin, ur Negative Negative [facility] ([place]) Blood, ur Negative Negative [facility] ([place]) Urobilinogen, ur 2.0(A) <2.0 mg/dL [facility] ([place]) Nitrite, ur Negative Negative [facility] ([place]) Leukocyte esterase, ur Negative Negative [facility] UA reflex comment Reflex to microscopic UA will be performed. [facility] ([place]) Urine 12/02/2024 6:07 AM CDT 12/02/2024 6:15 AM CDT Marcelina Cleaning MD LAB MICROBIOLOGY - GENERA L ORDERABLES Final Result Performing Organization Address [facility] Co de Phone Number [facility] ([place]) 1 [place] [address] * (ABNORMAL) Urinalysis, microscopic only (12/02/2024 6:07 AM CDT) WBC, ur 0-5 0 - 5 /HPF RBC, ur 11-20(A) 0 - 2 /HPF [facility] Mucous, ur Present(A) [facility] ([place]) Hyaline casts, ur 1-5 0 - 10 /LPF [facility] ([place]) Culture Reflex Comment Reflex conditions for urine culture (WBC >10) not met. [facility] ([place]) Urine 12/02/2024 6:07 AM CDT 12/02/2024 6:15 AM CDT us Jen Roth MD LAB URINE ORDERABLES Final Resul t Performing Organization Address [facility] Co de Phone Number [facility] ([place]) [address] [place] [address] * (ABNORMAL) Blood gas, venous (12/02/2024 6:07 AM CDT) pH, Venous 7.44(H) 7.32 - 7.43 PCO2, Venous 34(L) 40 - 50 mmHg [facility] ([place]) PO2, Venous 86 mmHg [facility] ([place]) HCO3 Venous, Calculated 23 20 - 30 mmol/L [facility] ([place]) BE, venous 0 mmol/L [facility] ([place]) Comment: Interpretive Data No Reference Range Established Current Interpretive Data was last revised on 2017. Blood 12/02/2024 6:07 AM CDT 12/02/2024 6:15 AM CDT us Marcelina Cleaning MD LAB BLOOD ORDERABLES Stephie l Result Performing Organization Address City/[facility]/ZIP Co de Phone Number [facility] ([place]) [address] [place] [address] [place] [address] * Influenza A/B, RSV, and COVID-19 PCR Nasopharyngeal (12/02/2024 4:28 AM CDT) Pathologist [facility] COVID-19 RNA Negative Negative Influenza A RNA Negative Negative [facility] ([place]) Influenza B RNA Negative Negative [facility] ([place]) RSV RNA Negative Negative [facility] ([place]) Comment: Interpretive data: Testing performed by [facility]. This test is performed using the Startpack Xpert Xpress CoV-2/Flu/RSV plus assay. This is a multiplex, real- time reverse transcriptase PCR assay intended for the qualitative detection of nucleic acid from SARS-CoV-2, influenza A, influenza B, and respiratory syncytial virus. This assay has been cleared by the [place] Food and Drug administration. The performance characteristics have been verified by the [facility]. Results must be considered in the clinical context, and a negative result does not rule out infection. Interpretive Data last revised 2023 Nasopharyngeal 12/02/2024 4: 28 AM CDT 12/02/2024 4:30 AM CDT Narrative [facility] ([place]) - 12/02/2024 5:15 AM CDT Is the Patient experiencing symptoms consistent with COVID?->Yes us Jen Roth MD LAB MICROBIOLOGY - GENERAL ORDER DENIS Final Result [facility] ([place] 1 [facility] [place] [address] * eGFR (12/02/2024 3:24 AM CDT) Pathologist [facility] eGFR >90 [...] MD LAB BLOOD ORDERABLES Stephie baez Result [facility] ([place]) 1 [facility] [place] [address] * (ABNORMAL) Differential, auto (12/02/2024 3:24 AM [...] Neutrophil pct 75.3 % [facility] ([place]) Comment: Interpretive Data Percent cell count reference [...] revised on 2017. Monocyte pct 5.2 % [facility] ([place]) Comment: Interpretive Data [...] Stephie l Result [facility]SSA [facility] ([place]) 1 [facility] [place] [address] * (ABNORMAL) CBC with auto differential (12/02/2024 3:24 AM CDT) WBC 12.66(H) 3.80 - 9.90 K/cumm Hgb 15.5 13.0 - 17.5 g/dL [facility] ([place]) Hct 46.0 38.9 - 50.3 % [facility] ([place]) Plt 334 150 - 400 K/cumm [facility] ([place]) MPV 9.9 9.1 - 12.3 fL [facility] ([place]) RBC 5.42 4.30 - 5.80 M/cumm [facility] ([place]) MCV 84.9 81.3 - 96.4 fL [facility] ([place]) MCH 28.6 27.1 - 33.3 pg [facility] ([place]) MCHC 33.7 32.3 - 35.7 g/dL [facility] ([place]) RDW CV 13.0 11.1 - 14.9 % [facility] ([place]) RDW SD 40.2 35.7 - 48.1 fL [facility] ([place]) NRBC abs 0.00 0.00 - 0.01 K/cumm [facility] ([place]) Blood Venous blood specimen / Unknown 12/02/2024 3:24 AM CDT 12/02/2024 3:35 AM CDT Marcelina Cleaning MD LAB BLOOD ORDERABLES Stephie l Result [facility] ([place]) 1 [facility] [employer] [place] [address] * Lipase (12/02/2024 3:24 AM CDT) Lipase 12 10 - 99 Units/L Blood Venous blood specimen / Unknown 12/02/2024 3:24 AM CDT 12/02/2024 3:35 AM CDT Marcelina Cleaning MD LAB BLOOD ORDERABLES Stephie l Result [facility]A [facility] ([place]) 1 [facility] [employer] [place] [address] * (ABNORMAL) Comprehensive metabolic panel (12/02/2024 3:24 [...] 4.8 3.5 - 5.0 g/dL [facility] ([place]) Alk phos 88 40 - 130 Units/L [facility] ([place]) ALT 17 7 - 55 Units/L [facility] ([place]) AST 23 10 - 50 Units/L [facility] ([place]) Comment:Slightly Hemolyzed S pecimen Blood 12/02/2024 3:24 AM CDT 12/02/2024 3:35 AM CDT us Marcelina Cleaning MD LAB BLOOD ORDERABLES Stephie baez Result [facility] ([place]) 1 [facility] [place] [address] * POCT glucose (12/02/2024 3:21 AM CDT) Pathologist [facility] Glucose, POC 111 70 - 199 mg/dL Blood 12/02/2024 3:21 AM CDT 12/02/2024 3:21 AM CDT Notinfile Unknown LAB POCT ORDERABLES - DEVICE F inal Result Performing Organization Address [facility]/ZIP Co de Phone Number AL[facility]A [facility] ([place]) 1 [facility] [place] [address] * POCT glucose (11/30/2024 1:58 PM CDT) [facility] Glucose, POC 177 70 - 199 mg/dL Blood 11/30/2024 1:58 PM CDT 11/30/2024 1:58 PM CDT Juan Car MD LAB POCT ORDERABLES - DEVICE Fi nal Result Performing Organization Address [facility] Co de Phone Number [facility] ([place]) 1 [facility] [place] [address] * Lactate (11/30/2024 12:51 PM CDT) [facility] Lactate 0.8 0.7 - 2.0 mmol/L Blood 11/30/2024 12:5 1 PM CDT 11/30/2024 12:57 PM CDT Juan Car MD LAB BLOOD ORDERABLES Final Resu lt Performing Organization Address [facility] Co de Phone Number [facility] ([place]) 1 [facility] [place] [address] * eGFR (11/30/2024 12:51 PM CDT) [facility] eGFR >90 >=60 mL/min/1. 73 m2 [...] ORDERABLES Final Resu lt Performing Organization Address City/[facility]/ZIP Co de Phone Number AL[facility]SSA [facility]ER[facility] ([place]) [address] [place] [address] [employer] [place] [address] * Beta-hydroxybutyrate (11/30/2024 12:51 PM CDT) Beta-Hydroxybut yrate 0.5 <=0.5 mmol/L Comment:Testing performed by : [facility], [address] [place] [address], [id number] Blood 11/30/2024 12:5 1 PM CDT 11/30/2024 10:37 PM CDT Juan Car MD LAB BLOOD ORDERABLES Final Resu lt [facility] ([place]) 1 [facility] [place] [address] * Basic metabolic panel (11/30/2024 12:51 PM CDT) Sodium 138 135 - 145 mmol/L Potassium, pl 4.5 3.3 - 4.9 mmol/L [facility] ([place]) Chloride 103 97 - 110 mmol/L [facility] ([place]) CO2 22 22 - 32 mmol/L [facility] ([place]) Anion gap 13 2 - 15 mmol/L [facility] ([place]) BUN 19 6 - 25 mg/dL [facility] ([place]) Creatinine 0.91 0.80 - 1.30 mg/dL [facility] ([place]) Glucose 192 70 - 199 mg/dL [facility] ([place]) Comment: Interpretive Data Fasting [...] 2022. Calcium 8.8 8.5 - 10.3 mg/dL [facility] ([place]) Blood 11/30/2024 12:5 1 PM CDT 11/30/2024 12:57 PM CDT Juan Car MD LAB BLOOD ORDERABLES Final Resu lt Performing Organization Address City/[facility]/ZIP Co de Phone Number [facility] ([place] 1 [facility] [employer] [place] [address] * POCT glucose (11/30/2024 12:48 PM CDT) [facility] Signature Glucose, POC 176 70 - 199 mg/dL Blood 11/30/2024 12:4 8 PM CDT 11/30/2024 12:48 PM CDT Juan Car MD LAB POCT ORDERABLES - DEVICE Fi nal Result ALYSSA [facility] ([place]) 1 [facility] [employer] [place] [address] * POCT glucose (11/30/2024 11:45 AM CDT) Glucose, POC 143 70 - 199 mg/dL Blood 11/30/2024 11:4 5 AM CDT 11/30/2024 11:45 AM CDT us Juan Car MD LAB POCT ORDERABLES - DEVICE Fi nal Result Performing Organization Address [facility] Co de Phone Number ALYSSA CACERES ([place]) 1 [facility] [place] [place] [address] * POCT glucose (11/30/2024 10:30 AM CDT) Glucose, POC 124 70 - 199 mg/dL Blood 11/30/2024 10:3 0 AM CDT 11/30/2024 10:30 AM CDT Juan Car MD LAB POCT ORDERABLES - DEVICE Fi nal Result Performing Organization Address [facility] de Phone Number ALYSSA [facility] [place]) 1 [facility] [place] [place] [address] * CT Abdomen Pelvis W Contrast (11/30/2024 [...] Kurt Ferro M.D. MM: MM Report ID: [id number] Reading Location: [place] [address] Procedure Note Kurt Ferro MD - 11/30/2024 [...] Kurt Ferro M.D. MM: MM Report ID: [id number] Reading Location: [id number] us Marcelina Cleaning MD IMG CT PROCEDURES Final R esult * Influenza A/B, RSV, and COVID-19 PCR Nasopharyngeal (11/30/2024 8:32 AM CDT) COVID-19 RNA Negative Negative Influenza A RNA Negative Negative [facility] ([place]) Influenza B RNA Negative Negative [facility] ([place]) RSV RNA Negative Negative [facility] ([place]) Comment: Interpretive data: Testing performed by [facility]. This test is performed using the Cepheid Xpert Xpress CoV-2/Flu/RSV plus assay. This is a multiplex, real- time reverse transcriptase PCR assay intended for the qualitative detection of nucleic acid from SARS-CoV-2, influenza A, influenza B, and respiratory syncytial virus. This assay has been cleared by the [place] Food and Drug administration. The performance characteristics have been verified by the [facility]. Results must be considered in the clinical context, and a negative result does not rule out infection. Interpretive Data last revised 2023 Nasopharyngeal 11/30/2024 8: 32 AM CDT 11/30/2024 8:38 AM CDT Narrative ALYSSA NICKI ([place]) - 11/30/2024 9:16 AM CDT Is the Patient experiencing symptoms consistent with COVID?->Yes Marcelina Cleaning MD LAB MICROBIOLOGY - GENERA L ORDERABLES Final Result Performing Organization Address City/[facility]/ZIP Co de Phone Number ALYSSA [facility] ([place]) [address] [place] [address] Department [place] [employer] [place] [address] * (ABNORMAL) Sepsis Lactate w/ Reflex (11/30/2024 8:32 AM CDT) Pathologist [facility] Sepsis Lactate 3.4(H) 0.7 - 2.0 mmol/L Blood 11/30/2024 8:32 AM CDT 11/30/2024 8:35 AM CDT Marcelina Cleaning MD LAB BLOOD ORDERABLES Stephie l Result ALYSSA CACERES ([place]) 1 [place] [address] * eGFR (11/30/2024 8:32 AM CDT) Pathologist [facility] eGFR >90 [...] LAB BLOOD ORDERABLES Stephie baez Result ALYSSA [facility] ([place]) 1 [facility] [place] [address] * (ABNORMAL) Differential, auto (11/30/2024 8:32 AM CDT) Neutrophil abs 8.26(H) 1.50 - 6.50 K/cumm Imm gran abs 0.04 0.00 - 0.10 K/cumm [facility] ([place]) Lymphocyte abs 2.35 0.80 - 3.30 K/cumm [facility] ([place]) Monocyte abs 0.86(H) 0.20 - 0.80 K/cumm [...] Imm gran pct 0.3 % [facility] ([place]) Comment: Interpretive Data Percent cell count reference [...] revised on 2017. Basophil pct 0.7 % [facility] ([place]) Comment: Interpretive Data Percent cell count reference ranges are not reported, since discordance with absolute values may lead to misinterpretation of CBC data. Current Interpretive Data was last revised on 2017. Blood 11/30/2024 8:32 AM CDT 11/30/2024 8:35 AM CDT us Marcelina Cleaning MD LAB BLOOD ORDERABLES Stephie l Result ALYSSA CACERES ([place]) 1 [facility] [place] [address] * (ABNORMAL) CBC with auto differential (11/30/2024 8:32 AM CDT) WBC 11.78(H) 3.80 - 9.90 K/cumm Hgb 15.4 13.0 - 17.5 g/dL [facility] ([place]) Hct 46.3 38.9 - 50.3 % [facility] ([place]) Plt 308 150 - 400 K/cumm [facility] ([place]) MPV 10.3 9.1 - 12.3 fL [facility] ([place]) RBC 5.39 4.30 - 5.80 M/cumm [facility] ([place]) MCV 85.9 81.3 - 96.4 fL [facility] ([place]) MCH 28.6 27.1 - 33.3 pg [facility] ([place]) MCHC 33.3 32.3 - 35.7 g/dL [facility] ([place]) RDW CV 13.1 11.1 - 14.9 % [facility] ([place]) RDW SD 40.5 35.7 - 48.1 fL [facility] ([place]) NRBC abs 0.00 0.00 - 0.01 K/cumm [facility] ([place]) Blood 11/30/2024 8:32 AM CDT 11/30/2024 8:35 AM CDT Marcelina Cleaning MD LAB BLOOD ORDERABLES Stephie l Result Performing Organization Address City/[facility]/ZIP Co de Phone Number [facility] ([place]) 1 [facility] [place] [address] * Magnesium (11/30/2024 8:32 AM CDT) Magnesium 2.2 1.4 - 2.5 mg/dL Blood 11/30/2024 8:32 AM CDT 11/30/2024 10:34 AM CDT Marcelina Cleaning MD LAB BLOOD ORDERABLES Stephie l Result Performing Organization Address City/[facility] Co de Phone Number [facility] ([place]) 1 [facility] [place] [place] [address] * (ABNORMAL) Hemoglobin A1c (11/30/2024 8:32 AM CDT) Hgb A1C 8.1(H) 4.0 - 5.6 % Estimated Average Glucose 186 mg/dL [facility] ([place]) Comment: The ADA recommends reporting an estimated Average Glucose (eAG) with all Hemoglobin A1c results using the equation derived from a study of 507 normal and diabetic adults. Minority populations were underrepresented and children were not included. (Diabetes Care 31:8846-3447, 2008). The eAG is not equivalent to a fasting glucose. Blood 11/30/2024 8:32 AM CDT 11/30/2024 8:57 AM CDT Marcelina Cleaning MD LAB BLOOD ORDERABLES Stephie l Result Performing Organization Address [facility] de Phone Number [facility] ([place]) 1 [facility] [place] [place] [address] * Blood gas, venous (11/30/2024 8:32 AM CDT) pH, Venous 7.39 7.32 - 7.43 PCO2, Venous 42 40 - 50 mmHg [facility] ([place]) PO2, Venous 49 mmHg [facility] ([place]) Comment: Interpretive Data No reference range established. [...] ORDERABLES Stephie l Result Performing Organization Address [facility] de Phone Number [facility] ([place]) 1 [facility] [place] [place] [address] * (ABNORMAL) Comprehensive metabolic panel (11/30/2024 8:32 [...] MD LAB BLOOD ORDERABLES Stephie l Result [facility] ([place]) 1 [facility] Department of Laboratories [place], [place] [id number] * ECG 12 lead (11/30/2024 8:31 AM CDT) 11/30/2024 8:31 AM CDT Narrative [facility] - 11/30/2024 8:49 AM CDT Vent Rate: 92 bpm RR Interval: 649 msec W[place] Interval: 162 msec QRS Duration: 94 msec QT Interval: 349 msec QTC Interval: 399 msec P-R-T [place]: 78 - 60 - 72 degrees IMPRESSION: SINUS RHYTHM POSSIBLE LEFT ATRIAL ENLARGEMENT [-0.1mV P-WAVE IN V1/V2] BORDERLINE ECG compared to prior EKG no changes Electronically Signed By: Keny Rock MD [facility] us Marcelina Cleaning MD ECG ORDERABLES Final Res ult [facility] [employer] [facility] * POCT glucose (11/30/2024 8:13 AM CDT) Pathologist [facility] Glucose, POC 193 70 - 199 mg/dL Blood 11/30/2024 8:13 AM CDT 11/30/2024 8:13 AM CDT us Marcelina Cleaning MD LAB POCT ORDERABLES - DEV ICE Final Result Performing Organization Address City/[facility]/ZIP Co de Phone Number ALYSSA [facility] ([place]) 1 [facility] [place] [address] * Thyroid Function [place] (10/27/2024 8:51 AM CDT) [facility] TSH 1.51 0.30 - 4.20 mcIUnit/mL Blood 10/27/2024 8:51 AM CDT 10/27/2024 2:50 PM CDT us Nay Alford MANAGER [employer]ER[employer] DIRECTOR LAB BLOOD ORDERABLES Final Resu lt ALYSSA AHMADI [address] Department [place] [address] * (ABNORMAL) Albumin Creatinine Ratio, Urine (10/27/2024 8:51 AM CDT) Pathologist [facility] Albumin Ur 96.3 mg/L Comment: Interpretive Data [...] NP LAB URINE ORDERABLES Final Resu lt [facility] [address] Department [place] [address] * (ABNORMAL) Lipid panel (10/27/2024 8:51 AM [...] CDT 10/27/2024 2:50 PM CDT Narrative ALYSSA AHMADI - 10/27/2024 3:21 PM CDT These lab test should be done fasting. This means do not eat or drink for at least 12 hours prior to getting your blood drawn. Has the patient been fasting for 8 hours or more?->Yes Nay Alford NP LAB BLOOD ORDERABLES Final Resu lt ALYSSA [address] Department [place] [address] * DIABETES FOOT EXAM (04/08/2018) Diabetic Foot Exam Normal Historical Provider MD HEALTH MAINTENANCE Final Result from Last 3 Months or Most Recently Relevant to Health Maintenance Insurance [facility] [place] [address] [facility] Advance Directives For more information, please contact: [phone] Documents on File Type Date Recorded 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
--- OUTSIDE RECORDS SUMMARY | 2025-02-04 10:51 | XMS_ITS | Referral Summary ---
Author Organization [facility] ospital Address [address] [place] [address] Care Team Providers Care Home Restoration Service Supervisor Name Role Phone Con Beltrán MD Unavailable [phone] Prashanth Saldana Primary Care Provider Sidney Russell MD Unavailable [phone] Encounters Date Type Department Care Team Description 01/29/20 25 Telephone [facility] Gastroenterology at [address] [place] [phone] Cristin Tejada LPN 01/29/20 25 Telephone [facility] Gastroenterology [address] [place] [address] Medical Office Building 4, [address] [place] [address] Carmen Irving RN IOV scheduling 01/27/20 25 1:30 PM CDT Office Visit [facility] Gastroenterology at [address] [place] [phone] Terrence Fitch MD Gastroparesis (Primary Dx); Gastroesophageal reflux disease without esophagitis; Marijuana use 01/27/20 25 10:00 AM CDT Office Visit [facility] Endocrine Care at [address] [place] [phone] Nay Alford, REYNA Type 1 diabetes mellitus with hyperglycemia (HCC) (Primary Dx); Hypoglycemia; Mixed hyperlipidemia; Tandem T slim Insulin pump in place; Gastroparesis 01/07/20 25 Telephone [facility] Gastroenterology at [address] [place] [address] Arin Fischer 01/07/20 25 8:00 AM CDT Anesthesia Event [address] [address] Ronaldo Jerome, Vu Kevin CRNA 01/07/20 25 8:00 AM CDT - 01/07/20 25 8:30 AM CDT Surgery [address] [address] Terrence Fitch MD Not Performed ESOPHAGOGASTRODUODENOSCOPY 01/07/20 25 7:27 AM CDT - 01/07/20 8:07 AM CDT Hospital Encounter [address] [address] Terrence Fitch MD Discharge Disposition: Discharge to home or self care 01/02/20 Results Follow-Up [facility] Medical [facility] Gastroenterology at [address] [place] [address] Peter Rivera NP NM Gastric Emptying Study 12/31/19 25 10:13 AM CDT - 12/31/19 25 11:59 PM CDT Hospital Encounter [address] [address] Discharge Disposition: Discharge to home or self care 12/31/19 25 10:13 AM CDT - 12/31/19 25 11:59 PM CDT Hospital Encounter [address] [address] Discharge Disposition: Discharge to home or self care 12/31/19 25 10:13 AM CDT - 12/31/19 25 11:59 PM CDT Hospital Encounter [address] [address] Discharge Disposition: Discharge to home or self care 12/31/19 25 10:13 AM CDT - 12/31/19 25 11:59 PM CDT Hospital Encounter [address] [address] Discharge Disposition: Discharge to home or self care 12/31/19 10:13 AM CDT - 12/31/19 11:59 PM CDT Hospital Encounter [facility] [address] [place] [address] Nausea and vomiting, unspecified vomiting type; Type 1 diabetes mellitus with hyperglycemia (HCC) Discharge Disposition: Discharge to home or self care 12/26/19 Telephone [facility] Gastroenterology at [address] [place] [address] Radhika Cunningham EGD Reschedule 12/22/19 Telephone [facility] Gastroenterology at [address] [place] [address] Evelin Fischer MA 12/18/19 Telephone [facility] Medical [facility] Gastroenterology at [address] [place] [address] Cristin Tejada LPN 12/18/19 8:15 AM CDT Office Visit [facility] Gastroenterology at [address] [place] [address] Peter Rivera NP Nausea and vomiting, unspecified vomiting type (Primary Dx); Abnormal CT scan, esophagus; Gastroesophageal reflux disease, unspecified whether esophagitis present; Type 1 diabetes mellitus with hyperglycemia (HCC); Tandem T slim Insulin pump in place; Marijuana use; Tobacco use disorder 12/03/19 4:04 AM CDT - 12/03/19 5:56 PM CDT Hospital Encounter [facility] ICU [address] [place] [address] Marcelina Cleaning MD Masetti, Paolo, MD Type 1 diabetes mellitus with ketoacidosis without coma (HCC) (Primary Dx); Gastroparesis; Nausea and vomiting, unspecified vomiting type Discharge Disposition: Left Against Medical Advice 12/01/19 7:54 AM CDT - 12/01/19 2:36 PM CDT Hospital Encounter [facility] ICU [address] [place] [address] Marcelina Cleaning MD Masetti, Paolo, MD Diabetic ketoacidosis without coma associated with type 1 diabetes mellitus (HCC) (Primary Dx); Hyperemesis Discharge Disposition: Left Against Medical Advice 11/06/19 25 Telephone [facility] Diabetes Endocrine Care at [address] [place] [phone] Nay Alford ASSISTANT STORE MANAGER SALES from Last 3 Months Allergies Active Allergy [...] by mouth daily 025 Active blood-glucose sensor (Zenring G7 Sensor) device USE DIRECTED, CHANGE EVERY [...] . Assessment & Plan (07/10/2022 9:22 AM PODIATRIC MEDICINE DOCTOR): This is a chronic condition which is not at goal. Unable to Download as he has a new pump and is not connected on [employer]. Type of insulin pump- tandem T slim [...] of less than 70. Encouraged to contact [email or web address] and have a new pump shipped Discussed [...] statin Assessment & Plan (07/10/2022 9:19 AM PODIATRIC MEDICINE DOCTOR): This is a chronic condition which is [...] G6 at home. He was seen in [facility], but missed appointment in the [...] prescribed. Assessment & Plan (08/04/2020 3:50 AM PODIATRIC MEDICINE DOCTOR): H/o pancreatitis attributed to hypertriglyceridemia. TGs 215 on 05/27/20. -Continue home fenofibrate and atorvastatin Resolved Problems Problem Noted Date Diagnosed Date Resolved Date Leukocytosis 04/18/2021 04/04/2022 Gallbladder sludge 04/05/2021 Marijuana abuse 04/05/2021 04/04/2022 JACK (acute kidney injury) (CMS/HCC) 10/25/2020 04/04/2022 Diarrhea 10/25/2020 04/04/2022 Hypokalemia 08/04/2020 04/04/2022 Assessment & Plan (08/04/2020 3:59 AM PODIATRIC MEDICINE DOCTOR): K to 3.2 after hyperglycemia protocol s/p 40 mEq of IV K in ED. -CTM w/ BMP Nausea and vomiting 07/05/2020 04/04/20 22 Assessment & Plan (08/04/2020 4:10 AM PODIATRIC MEDICINE DOCTOR): Patient has chronic N/V, now presenting w/ 3 days of persistent N/V. No abdominal pain. Lipase 15 on presentation. +MJ use. DDx: cyclic vomiting vs. diabetic gastroparesis. -Zofran prn -Pepcid -Can trial Reglan -Encourage MJ cessation Assessment & Plan (07/05/2020 4:24 PM PODIATRIC MEDICINE DOCTOR): Etiology likely DKA. Other considerations are PUD [...] 04/04/2022 Assessment & Plan (07/05/2020 4:26 PM PODIATRIC MEDICINE DOCTOR): Etiology likely DKA. pH is 7.50 (alkalosis) [...] 04/04/2022 Assessment & Plan (08/04/2020 3:41 AM PODIATRIC MEDICINE DOCTOR): Patient multiple past hospitalizations for DKA, most recently in June presenting w/ DKA after 3 days of persistent N/V. BG was 338 w/ AG 18, bicarb 21, ketones 3.2. BG now in the 100s and AG close after hyperglycemia protocol. A1C 10.5 08/02/20. Is a patient of Dr. Swift at [facility] medical group in [place]. Last seen on 07/25 with plan for [...] f/u. Assessment & Plan (07/05/2020 4:21 PM PODIATRIC MEDICINE DOCTOR): DKA (ketones 1.4, BG 242, urine glucose [...] insulin regimen is needed at this time. residential real estate agent have talked to Peter and family about [...] with diabetes mellitus due to underlying condition ([facility]/HCC) 04/04/2022 EKG abnormality 04/04/2022 Choledocholithiasis 04/04/20 Abdominal pain 04/04/2022 Social History Tobacco Use Types Packs/Day Years Used Date Smoking Tobacco: Every Day Vaping Smokeless Tobacco: Never Tobacco Cessation:Ready to Q uit: Not Asked; Counseling Given: Not Answered Alcohol Use Standard Drinks/Week Comments No 0 (1 standard drink = 0.6 oz pur e alcohol) [facility] Utilities Answer Date Recorded In the past 12 months has e electric, gas, oil, or water company [...] often do you attend chur ch or orthodox services? Never 12/02/2024 Do you belong to any clubs o r organizations such as muslim groups, unions, fraternal or athletic groups, or [...] time in the past 12 m [facility], were you homeless or living [...] on file Legal Sex Male 4:12 AM PODIATRIC MEDICINE DOCTOR Gender Identity Not on file Sexual Orientation [...] 01/26/2025 10:0 4 AM CDT Nay Alford ASSISTANT STORE MANAGER SALES POINT OF CARE TEST ORDERABLES F inal [...] POCT ORDERABLES - DEVICE Fin al Result [facility] [place] [facility] [place] [address] * NM Gastric Emptying Study [...] Shaquille Contreras M.D. LB: LB Report ID: [id number] Reading Location: [id number] Procedure Note Shaquille Contreras MD - 12/30/2024 [...] Shaquille Contreras M.D. LB: ISRA[place] Report ID: [id number] Reading Location: [id number] us Peter Rivera ASSISTANT STORE MANAGER SALES IMG NM PROCEDURES F inal Result * Infection Prevention MRSA Only (Staphylococcus aureus) PCR Nasal (12/02/2024 4:48 PM CDT) PCR Scrn, Methicillin resistant Staphylococcus aureus (MRSA) Not Detected Not Detected Comment: Interpretive Data Testing performed using Nucleic Acid Amplification with the Cepheid Xpert MRSA NxG Assay. This assay detects target DNA from mecA, mecC and the SCCmec insertion site of Staphylococcus aureus using Real-Time PCR and has been cleared by the FDA. Performance characteristics have been verified by the [facility]. Current Interpretive Data was last revised on 2022 Nasal 12/02/2024 4:48 PM CDT 12/02/2024 4:55 PM CDT Juan Car MD LAB MICROBIOLOGY - GENERAL ORDE RABLES Final Result [facility] ([place] [address] [facility] [place] [address] * eGFR (12/02/2024 4:43 PM CDT) eGFR [...] BLOOD ORDERABLES Final Resu lt [facility] ([place] [address] [facility] [place] [address] * (ABNORMAL) Basic metabolic panel (12/02/2024 4:43 PM CDT) Sodium 136 135 - 145 mmol/L Potassium, pl 3.9 3.3 - 4.9 mmol/L [facility] ([place]) Chloride 100 97 - 110 mmol/L [facility] ([place]) CO2 20(L) 22 - 32 mmol/L [facility] ([place]) Anion gap 16(H) 2 - 15 mmol/L [facility] ([place]) BUN 12 6 - 25 mg/dL [facility] ([place]) Creatinine 0.87 0.80 - 1.30 mg/dL [facility] ([place]) Glucose 341(H) 70 - 199 mg/dL [facility] ([place]) Comment: Interpretive Data Fasting [...] 2022. Calcium 8.4(L) 8.5 - 10.3 mg/dL [facility] ([place]) Blood 12/02/2024 4:43 PM CDT 12/02/2024 4:55 PM CDT us Juan Car MD LAB BLOOD ORDERABLES Final Resu lt [facility] ([place]) 1 [facility] [place] [address] * (ABNORMAL) POCT glucose (12/02/2024 4:29 PM CDT) Glucose, POC 309(H) 70 - 199 mg/dL Blood 12/02/2024 4:29 PM CDT 12/02/2024 4:29 PM CDT us Juan Car MD LAB POCT ORDERABLES - DEVICE Fi nal Result [facility] ([place] 1 [place] [address] * POCT glucose (12/02/2024 12:13 PM CDT) Glucose, POC 156 70 - 199 mg/dL Blood 12/02/2024 12:1 3 PM CDT 12/02/2024 12:13 PM CDT Juan Car MD LAB POCT ORDERABLES - DEVICE Fi nal Result Performing Organization Address [facility] de Phone Number [facility] [place] [address] [place] [address] * eGFR (12/02/2024 10:25 AM CDT) eGFR [...] Final Resu lt [facility] ([place]) 1 [facility] [place] [address] * Basic metabolic panel (12/02/2024 10:25 AM CDT) Sodium 143 135 - 145 mmol/L Potassium, pl 3.8 3.3 - 4.9 mmol/L [facility] ([place]) Chloride 106 97 - 110 mmol/L [facility] ([place]) CO2 23 22 - 32 mmol/L [facility] ([place]) Anion gap 14 2 - 15 mmol/L [facility] ([place] BUN 15 6 - 25 mg/dL [facility] ([place]) Creatinine 0.87 0.80 - 1.30 mg/dL [facility] ([place]) Glucose 92 70 - 199 mg/dL [facility] [...] 2022. Calcium 8.5 8.5 - 10.3 mg/dL [facility] ([place]) Blood 12/02/2024 10:2 5 AM CDT 12/02/2024 10:32 AM CDT Juan Car MD LAB BLOOD ORDERABLES Final Resu lt [facility]) 1 [facility] [place] [address] * POCT glucose (12/02/2024 9:11 AM CDT) Glucose, POC 70 70 - 199 mg/dL Blood 12/02/2024 9:11 AM CDT 12/02/2024 9:11 AM CDT Juan Car MD LAB POCT ORDERABLES - DEVICE Fi nal Result Performing Organization Address City/[facility]/ZIP Co de Phone Number [facility] ([place]) 1 [facility] [place] [address] * (ABNORMAL) POCT glucose (12/02/2024 8:55 AM CDT) Glucose, POC 61(L) 70 - 199 mg/dL Blood 12/02/2024 8:55 AM CDT 12/02/2024 8:55 AM CDT Juan Car MD LAB POCT ORDERABLES - DEVICE Fi nal Result Performing Organization Address [facility] Co de Phone Number [facility] ([place]) 1 [facility] [place] [address] * XR Chest 1 Vw Portable (12/02/2024 [...] Shaquille Contreras M.D. LB: LB Report ID: [id number] Reading Location: [id number] Procedure Note Shaquille Contreras MD - 12/02/2024 [...] Shaquille Contreras M.D. LB: LB Report ID: [id number] Reading Location: [place] [address] Marcelina Cleaning MD IMG XR PROCEDURES Final R esult * ECG 12 lead (12/02/2024 7:50 AM CDT) 12/02/2024 7:50 AM CDT Narrative [facility] - 12/02/2024 8:36 AM CDT Vent Rate: 90 bpm RR Interval: 665 msec TN Interval: 159 msec QRS Duration: 85 msec QT Interval: 360 msec QTC Interval: 407 msec P-R-T [place]: 84 - 76 - 76 degrees IMPRESSION: SINUS RHYTHM NONSPECIFIC T-WAVE ABNORMALITY BORDERLINE ECG NO CHANGE FROM PREVIOUS TRACING NOTED Electronically Signed By: Matt Mercado MD Marcelina Cleaning MD ECG ORDERABLES Final Res ult [facility] * (ABNORMAL) Urinalysis reflex to microscopic and culture Urine (12/02/2024 6:07 AM CDT) Color, ur Yellow Yellow Clarity, ur Clear Clear [facility] Jeanette ([place]) Specific gravity, ur 1.024 1.003 - 1.030 [facility] ([place]) pH, urine 6.5 [facility] ([place]) Comment: Interpretive Data U rine pH is affected by diet, medications, systemic acid-base disturbances, and renal tubular function. pH may affect urinary stone formation. For example, urine pH below 6.0 may help reduce the tendency for calcium phosphate stones and pH greater than 6.0 may reduce the tendency for uric acid stone formation. Source: [facility] Current Interpretive Data was last revised on [...] MICROBIOLOGY - GENERA L ORDERABLES Final Result [facility] ([place]) 1 [facility] Department of Laboratories [place], [place] [id number] * (ABNORMAL) Urinalysis, microscopic only (12/02/2024 6:07 AM CDT) WBC, ur 0-5 0 - 5 /HPF RBC, ur 11-20(A) 0 - 2 /HPF [facility] ([place]) Mucous, ur Present(A) [facility] ([place]) Hyaline casts, ur 1-5 0 - 10 /LPF [facility] ([place]) Culture Reflex Comment Reflex conditions for urine culture (WBC >10) not met. [facility] ([place]) Urine 12/02/2024 6:07 AM CDT 12/02/2024 6:15 AM CDT us Jen Roth MD LAB URINE ORDERABLES Final Resul t Performing Organization Address City/[facility] Co de Phone Number [facility] ([place]) [address] [place] [address] [place] [address] * (ABNORMAL) Blood gas, venous (12/02/2024 6:07 AM CDT) pH, Venous 7.44(H) 7.32 - 7.43 PCO2, Venous 34(L) 40 - 50 mmHg [facility] ([place]) PO2, Venous 86 mmHg [facility] ([place]) HCO3 Venous, Calculated 23 20 - 30 mmol/L [facility] ([place]) BE, venous 0 mmol/L [facility] ([place]) Comment: Interpretive Data No Reference Range Established Current Interpretive Data was last revised on 2017. Blood 12/02/2024 6:07 AM CDT 12/02/2024 6:15 AM CDT Marcelina Cleaning MD LAB BLOOD ORDERABLES Stephie l Result Performing Organization Address City/[facility] Co de Phone Number [facility] ([place]) [address] [place] [address] Department [place] [address] * Influenza A/B, RSV, and COVID-19 PCR Nasopharyngeal (12/02/2024 4:28 AM CDT) COVID-19 RNA Negative Negative Influenza A RNA Negative Negative [facility] ([place]) Influenza B RNA Negative Negative [facility] ([place]) RSV RNA Negative Negative [facility] ([place]) Comment: Interpretive data: Testing performed by [facility]. This test is performed using the [employer] Xpert Xpress CoV-2/Flu/RSV plus assay. This is a multiplex, real- time reverse transcriptase PCR assay intended for the qualitative detection of nucleic acid from SARS-CoV-2, influenza A, influenza B, and respiratory syncytial virus. This assay has been cleared by the [place] Food and Drug administration. The performance characteristics have been verified by the [facility]. Results must be considered in the clinical context, and a negative result does not rule out infection. Interpretive Data last revised 2023 Nasopharyngeal 12/02/2024 4: 28 AM CDT 12/02/2024 4:30 AM CDT Narrative [facility] ([place]) - 12/02/2024 5:15 AM CDT Is the Patient experiencing symptoms consistent with COVID?->Yes us Jen Roth MD LAB MICROBIOLOGY - GENERAL ORDER DENIS Final Result Performing Organization Address City/State/[facility] Co de Phone Number [facility] ([place] 1 [facility] Department [place] [address] * eGFR (12/02/2024 3:24 AM CDT) eGFR [...] Stephie l Result [facility] ([place]) 1 [facility] [place] [address] * (ABNORMAL) Differential, auto (12/02/2024 3:24 AM [...] ORDERABLES Stephie l Result Performing Organization Address City/State/[facility] Co de Phone Number [facility] ([place] [address] [facility] Department [place] [address] * (ABNORMAL) CBC with auto differential (12/02/2024 [...] Stephie l Result [facility] ([place]) 1 [facility] [place] [address] * Lipase (12/02/2024 3:24 AM CDT) Pathologist [facility] Lipase 12 10 - 99 Units/L Blood Venous blood specimen / Unknown 12/02/2024 3:24 AM CDT 12/02/2024 3:35 AM CDT Marcelina Cleaning MD LAB BLOOD ORDERABLES Stephie l Result [facility] ([place]) 1 [facility] [place] [address] * (ABNORMAL) Comprehensive metabolic panel (12/02/2024 3:24 AM CDT) Pathologist [facility] Sodium 141 135 - 145 mmol/L Potassium, [...] ([place]) Glucose 121 70 - 199 mg/dL [facility] ([place]) Comment: Interpretive Data Fasting glucose [...] Bilirubin, total 0.7 0.1 - 1.2 mg/dL [facility] ([place]) Protein, pl 8.4 6.5 - 8.5 g/dL [facility] ([place]) Albumin 4.8 3.5 - 5.0 g/dL [facility] ([place]) Alk phos 88 40 - 130 Units/L [facility] ([place]) ALT 17 7 - 55 Units/L [facility] ([place]) AST 23 10 - 50 Units/L [facility] ([place]) Comment:Slightly Hemolyzed S pecimen Blood 12/02/2024 3:24 AM CDT 12/02/2024 3:35 AM CDT us Marcelina Cleaning MD LAB BLOOD ORDERABLES Stephie l Result [facility] ([place]) 1 [facility] [place] [address] * POCT glucose (12/02/2024 3:21 AM CDT) Glucose, POC 111 70 - 199 mg/dL Blood 12/02/2024 3:21 AM CDT 12/02/2024 3:21 AM CDT us Notinfile Unknown LAB POCT ORDERABLES - DEVICE F inal Result Performing Organization Address City/[facility]/ZIP Co de Phone Number [facility] ([place]) 1 [facility] [place] [address] * POCT glucose (11/30/2024 1:58 PM CDT) Glucose, POC 177 70 - 199 mg/dL Blood 11/30/2024 1:58 PM CDT 11/30/2024 1:58 PM CDT us Juan Car MD LAB POCT ORDERABLES - DEVICE Fi nal Result Performing Organization Address City/[facility]/ZIP Co de Phone Number [facility] ([place]) 1 [facility] [place] [address] * Lactate (11/30/2024 12:51 PM CDT) Lactate 0.8 0.7 - 2.0 mmol/L Blood 11/30/2024 12:5 1 PM CDT 11/30/2024 12:57 PM CDT Juan Car MD LAB BLOOD ORDERABLES Final Resu lt Performing Organization Address City/[facility]/ZIP Co de Phone Number [facility] ([place]) 1 [place] [address] * eGFR (11/30/2024 12:51 PM CDT) eGFR [...] BLOOD ORDERABLES Final Resu lt [facility] ([place]) 1 [facility] [place] [employer] [address] * Beta-hydroxybutyrate (11/30/2024 12:51 PM CDT) Beta-Hydroxybut yrate 0.5 <=0.5 mmol/L Comment:Testing performed by : [facility], [address] [place] [address], [place]., [address] Blood 11/30/2024 12:5 1 PM CDT 11/30/2024 10:37 PM CDT Juan Car MD LAB BLOOD ORDERABLES Final Resu lt [facility] ([place]) 1 [facility] [place] [address] * Basic metabolic panel (11/30/2024 12:51 PM [...] ([place]) Glucose 192 70 - 199 mg/dL [facility] ([place]) Comment: Interpretive Data Fasting glucose [...] 2022. Calcium 8.8 8.5 - 10.3 mg/dL [facility] ([place]) Blood 11/30/2024 12:5 1 PM CDT 11/30/2024 12:57 PM CDT us Juan Car MD LAB BLOOD ORDERABLES Final Resu lt [facility] ([place] 1 [facility] [place] [address] * POCT glucose (11/30/2024 12:48 PM CDT) Glucose, POC 176 70 - 199 mg/dL Blood 11/30/2024 12:4 8 PM CDT 11/30/2024 12:48 PM CDT us Juan Car MD LAB POCT ORDERABLES - DEVICE Fi nal Result Performing Organization Address [facility] Co de Phone Number [facility] ([place]) 1 [facility] [place] [address] * POCT glucose (11/30/2024 11:45 AM CDT) Glucose, POC 143 70 - 199 mg/dL Blood 11/30/2024 11:4 5 AM CDT 11/30/2024 11:45 AM CDT us Juan Car MD LAB POCT ORDERABLES - DEVICE Fi nal Result Performing Organization Address City/[facility]/ZIP Co de Phone Number [facility] ([place]) 1 [facility] [place] [address] * POCT glucose (11/30/2024 10:30 AM CDT) Glucose, POC 124 70 - 199 mg/dL Blood 11/30/2024 10:3 0 AM CDT 11/30/2024 10:30 AM CDT us Juan Car MD LAB POCT ORDERABLES - DEVICE Fi nal Result Performing Organization Address City/[facility]/ZIP Co de Phone Number [facility] ([place]) 1 [facility] [place] [address] * CT Abdomen Pelvis W Contrast (11/30/2024 [...] Kurt Ferro M.D. MM: MM Report ID: [id number] Reading Location: [place] [address] Procedure Note Kurt Ferro MD - 11/30/2024 [...] Kurt Ferro M.D. MM: MM Report ID: [id number] Reading Location: [place] [address] Marcelina Cleaning MD IMG CT PROCEDURES Final R esult * Influenza A/B, RSV, and COVID-19 PCR Nasopharyngeal (11/30/2024 8:32 AM CDT) COVID-19 RNA Negative Negative Influenza A RNA Negative Negative [facility] ([place]) Influenza B RNA Negative Negative [facility] ([place]) RSV RNA Negative Negative [facility] ([place]) Comment: Interpretive data: Testing performed by [facility]. This test is performed using the [employer] Xpert Xpress CoV-2/Flu/RSV plus assay. This is a multiplex, real- time reverse transcriptase PCR assay intended for the qualitative detection of nucleic acid from SARS-CoV-2, influenza A, influenza B, and respiratory syncytial virus. This assay has been cleared by the [place] Food and Drug administration. The performance characteristics have been verified by the [facility]. Results must be considered in the clinical context, and a negative result does not rule out infection. Interpretive Data last revised 2023 Nasopharyngeal 11/30/2024 8: 32 AM CDT 11/30/2024 8:38 AM CDT Narrative [facility] ([place] - 11/30/2024 9:16 AM CDT Is the Patient experiencing symptoms consistent with COVID?->Yes Marcelina Cleaning MD LAB MICROBIOLOGY - GENERA L ORDERABLES Final Result [facility] [place] [address] * (ABNORMAL) Sepsis Lactate w/ Reflex (11/30/2024 8:32 AM CDT) Sepsis Lactate 3.4(H) 0.7 - 2.0 mmol/L Blood 11/30/2024 8:32 AM CDT 11/30/2024 8:35 AM CDT Marcelina Cleaning MD LAB BLOOD ORDERABLES Stephie l Result [facility] ([place]) [facility] [place] [address] * eGFR (11/30/2024 8:32 AM CDT) eGFR [...] MD LAB BLOOD ORDERABLES Stephie l Result [facility] ([place]) [facility] [place] [address] * (ABNORMAL) Differential, auto (11/30/2024 8:32 AM [...] Stephie baez Result [facility] ([place] [place] [address] * (ABNORMAL) CBC with auto differential (11/30/2024 [...] Stephie baez Result [facility] ([place] [place] [address] * Magnesium (11/30/2024 8:32 AM CDT) [facility] Magnesium 2.2 1.4 - 2.5 mg/dL Blood 11/30/2024 8:3 2 AM CDT 11/30/2024 10:34 AM CDT Marcelina Cleaning MD LAB BLOOD ORDERABLES Stephie l Result Performing Organization Address [facility] de Phone Number [facility] ([place]) [address] [place] [id number] * (ABNORMAL) Hemoglobin A1c (11/30/2024 8:32 AM CDT) [facility] Hgb A1C 8.1(H) 4.0 - 5.6 % Estimated Average Glucose 186 mg/dL [facility] ([place]) Comment: The ADA recommends reporting an estimated Average Glucose (eAG) with all Hemoglobin A1c results using the equation derived from a study of 507 normal and diabetic adults. Minority populations were underrepresented and children were not included. (Diabetes Care 31:9981-5904, 2008). The eAG is not equivalent to a fasting glucose. Blood 11/30/2024 8:32 AM CDT 11/30/2024 8:57 AM CDT Marcelina Cleaning MD LAB BLOOD ORDERABLES Stephie l Result Performing Organization Address [place] [facility] de Phone Number [facility] ([place]) [address] [place] [address] * Blood gas, venous (11/30/2024 8:32 AM CDT) [facility] pH, Venous 7.39 7.32 - 7.43 PCO2, Venous 42 40 - 50 mmHg [facility] ([place]) PO2, Venous 49 mmHg [facility] ([place]) Comment: Interpretive Data No reference range [...] MD LAB BLOOD ORDERABLES Stephie baez Result [facility] ([place] [place] [address] * (ABNORMAL) Comprehensive metabolic panel (11/30/2024 8:32 AM CDT) Sodium 139 135 - 145 mmol/L Potassium, pl 3.8 3.3 - 4.9 mmol/L [facility] ([place]) Chloride 101 97 - 110 mmol/L [facility] ([place]) CO2 21(L) 22 - 32 mmol/L [facility] ([place] Anion gap 17(H) 2 - 15 mmol/L [facility] ([place]) BUN 21 6 - 25 mg/dL [facility] ([place] Creatinine 1.08 0.80 - 1.30 mg/dL [facility] ([place]) Glucose 224(H) 70 - 199 mg/dL [facility] ([place] Comment: Interpretive Data Fasting glucose [...] ORDERABLES Stephie l Result Performing Organization Address [place] [facility] Co de Phone Number [facility] ([place]) 1 [facility] [place] [address] * ECG 12 lead (11/30/2024 8:31 AM CDT) 11/30/2024 8:31 AM CDT Narrative [facility] - 11/30/2024 8:49 AM CDT Vent Rate: 92 bpm RR Interval: 649 msec TN Interval: 162 msec QRS Duration: 94 msec QT Interval: 349 msec QTC Interval: 399 msec P-R-T [place]: 78 - 60 - 72 degrees IMPRESSION: SINUS RHYTHM POSSIBLE LEFT ATRIAL ENLARGEMENT [-0.1mV P-WAVE IN V1/V2] BORDERLINE ECG compared to prior EKG no changes Electronically Signed By: Keny Rock MD [facility] Marcelina Cleaning MD ECG ORDERABLES Final Res ult Performing Organization Address [place] [facility] Co de Phone Number [facility] [employer] [facility] * POCT glucose (11/30/2024 8:13 AM CDT) Glucose, POC 193 70 - 199 mg/dL Blood 11/30/2024 8:13 AM CDT 11/30/2024 8:13 AM CDT us Marcelina Cleaning MD LAB POCT ORDERABLES - DEV ICE Final Result Performing Organization Address [place] [facility] Co de Phone Number [facility] [place] [address] * Thyroid Function [place] (10/27/2024 8:51 AM CDT) TSH 1.51 0.30 - 4.20 mcIUnit/mL Blood 10/27/2024 8:51 AM CDT 10/27/2024 2:50 PM CDT Nay Alford ASSISTANT STORE MANAGER SALES LAB BLOOD ORDERABLES Final Resu lt Performing Organization Address [place] [facility] Co de Phone Number [facility] [address] Department [employer] [place], [place] [id number] * (ABNORMAL) Albumin Creatinine Ratio, Urine (10/27/2024 8:51 AM CDT) Albumin Ur 96.3 mg/L Comment: Interpretive Data No reference range established. Current interpretive data was last revised 2018. Creatinine Ur 124.7 mg/dL [facility] Comment: Interpretive Data No reference range established. Current interpretive data was last revised 2018. Albumin Creatinine Ratio, Ur 77(H) 1 - 29 mg/g [facility] Urine 10/27/2024 8:51 AM CDT 10/27/2024 2:50 PM CDT Nay Alford NP LAB URINE ORDERABLES Final Resu lt Performing Organization Address City/[facility] Co de Phone Number [facility] [address] [facility] [place] [address] * (ABNORMAL) Lipid panel (10/27/2024 8:51 AM [...] Pediatrics 2011;128:S213 2. NCEP Expert Panel. Circulation 2003;110:227 Current Interpretive Data was last revised on [...] Pediatrics 2011;128:S213 2. NCEP Expert Panel. Circulation 2003;110:227 Current Interpretive Data was last revised on [...] for 8 hours or more?->Yes us Nay lAford ASSISTANT STORE MANAGER SALES LAB BLOOD ORDERABLES Final Resu lt [facility] [address] Department [place] [address] * DIABETES FOOT EXAM (04/08/2018) Pathologist [facility] Diabetic Foot Exam Normal Historical Provider HEALTH MAINTENANCE Final Result from Last 3 Months or Most Recently Relevant to Health Maintenance [place] [address] [place] [address] [facility] [place] [address] [address] [place] [address] Advance Directives For more information, please contact: [phone] Documents on File Type Date Recorded Patient Appointment Clerk Expl anation ADVANCE DIRECTIVE 05/26/2020 6:51 PM [...] 11:49 AM 10/18/2024 1:28 PM Care Teams Home Restoration Service Supervisor Relationship Specialty Start Date End Date Prashanth Saldana PA [address] [place] [address] PCP - General Family Practice 05/25/20 Con Beltrán MD Referring Physician Pediatric Endocrinology 12/20/18 Sidney Russell MD [address] [place] [address] Consulting Physician Gastroenterology 04/19/21
--- NOTE | 2025-02-04 11:06 | ED_ITS ---
HPI - Abdominal Pain General Chief Complaint: Nausea/Vomiting/Diarrhea Stated Complaint: stomach issues Time Seen by Provider: 02/04/25 10:42 Source: patient, family (Grandmother), RN notes reviewed and old records reviewed Mode of arrival: ambulatory Limitations: no limitations History of Present Illness HPI narrative: 24-year-old male patient with history of type 1 diabetes and gastroparesis presents today with nausea, vomiting, periumbilical abdominal pain that started this morning. He primarily presents today for a work note as he had to leave. Patient has been having issues with his gastroparesis recently and has an appointment to follow-up with a subspecialist at [facility] on February 23 for possible surgery of his pyloric sphincter. He is already currently under the care of a burn out tender lace locally. He currently takes Zofran, Bentyl, Reglan, Benadryl, and erythromycin for his symptoms. States these medications had been helping, but then he soon vomited and some of them came out in his emes is. His continuous glucose monitor reports a blood sugar of 185 upon arrival today. He currently reports his abdominal pain 11/28. His grandmother who presents with him today, is an RN, and provides some of the PMH. Related Data Home Medications ?Medication ?Instructions ?Recorded ?Confirmed ?Last Taken ?Type atorvastatin 20 mg tablet mg 11/03/24 Unknown History blood-glucose sensor (Dexcom G7 11/03/24 02/04/25 Unknown History Sensor device) blood-glucose transmitter (Dexcom 11/03/24 02/04/25 Unknown History G6 Transmitter device) insulin lispro 100 unit/mL 11/03/24 Unknown History subcutaneous solution (Humalog U-100 Insulin) metoclopramide HCl 10 mg tablet mg 11/03/24 Unknown History pantoprazole 40 mg tablet,delayed mg PO 11/03/24 Unknown History release erythromycin ethylsuccinate 400 12/22/24 Unknown History mg/5 mL oral powder for suspension diphenhydramine HCl 25 mg capsule mg 02/04/25 Unknown History (Banophen) glucagon 1 mg/0.2 mL subcutaneous mg subcut 02/04/25 Unknown History auto-injector (Gvoke HypoPen 2-Pack) Allergies Allergy/AdvReac Type Severity Reaction Status Date / Time haloperidol (From Haldol) AdvReac Severe Other Verified 02/04/25 10:41 [facility] Past Medical History Medical History (Reviewed 02/04/25 @ 11:10 by Val Graff, [facility], ) Gastroparesis Elevated cholesterol Type 1 diabetes Surgical History Surgical History (Reviewed 02/04/25 @ 11:10 by Val Graff, [facility], ) History of cholecystectomy Family History Family History (Reviewed 02/04/25 @ 11:10 by Val Graff, [facility], ) Mother Family history non-contributory Social History Social History (Reviewed 02/04/25 @ 11:10 by Val Graff, [facility], ) Smoking status: Never smoker Alcohol intake: never Substance use: current Substance use type: marijuana Living arrangements: with family Gender identity (if verbalized by the patient): Male Comments At time of signature, I have reviewed and agree with nursing past medical, surgical, social and family history unless otherwise noted. Please see nursing chart for further information. There is no relevant family history pertinent to the presenting complaint Exam Narrative: GENERAL: Well-appearing, well-nourished. HEAD: Normocephalic, atraumatic. EYES: EOMI. No redness or drainage. Conjunctivae normal. ENT: Mucous membranes pink and moist. NECK: Normal AROM. CHEST: No respiratory distress. Clear to auscultation. HEART: Regular rate and rhythm. No murmur appreciated. ABDOMEN: Soft, nondistended, normal active bowel sounds. Generalized mild abdominal tenderness without rebound or guarding. EXTREMITIES: Normal range of motion. No edema. SKIN: Warm, dry, no rash. Capillary refill normal. Normal skin turgor. NEURO: No focal deficits. Alert and oriented x3. Gait steady. PSYCH: Normal affect. No signs of depression or anxiety. Course Course Level of Care: Express Care Visit Vital Signs Vital signs: Vital Signs Temperature 98.6 F 02/04/25 10:34 Pulse Rate 99 02/04/25 10:34 Respiratory Rate 20 02/04/25 10:34 Blood Pressure 112/82 02/04/25 10:34 Pulse Oximetry 99 02/04/25 10:34 Oxygen Delivery Room Air 02/04/25 10:34 Temperature 98.6 F 02/04/25 10:34 Pulse Rate 99 02/04/25 10:34 Respiratory Rate 20 02/04/25 10:34 Blood Pressure 112/82 02/04/25 10:34 Pulse Oximetry 99 02/04/25 10:34 Oxygen Delivery Room Air 02/04/25 10:34 Reviewed MDM - Abdominal Pain MDM Narrative Medical decision making narrative: 24-year-old male patient with history of gastroparesis presents today with nausea, vomiting, and abdominal discomfort. He has been taking his prescribed medications with some mild improvement. He has an appointment to see a specialist on February 23 for possible surgery. Patient primarily presents today for a work note as he had to leave after vomiting today. He does not need refills on any of his medications. He would just like to go home and rest as he has had these symptoms before, most recently 3 days ago when he was seen here for same symptoms. Symptoms today are no worse than normal. Grandmother, who is a nurse, is watching him. Work note provided. Anticipatory guidance given. Differential Diagnosis Differential diagnosis: Likely abdominal pain and other (Gastroparesis) Critical Care Time Critical Care Time Critical Care Time: No Discharge Plan Discharge Clinical Impression: Gastroparesis Patient Disposition: Home Condition: Stable Additional Instructions: Continue your home medications for symptoms. Go to the ER if symptoms worsen and your medication is not helping control. Patient Language: Danish Prescriptions: No Action ondansetron 4 mg tablet,disintegrating 4 mg PO Q6H PRN (Reason: nausea and vomiting) Qty: 14 0RF dicyclomine 20 mg tablet 20 mg PO Q6-8H PRN (Reason: abdominal cramping) Qty: 20 0RF ondansetron 4 mg tablet,disintegrating 4 mg PO Q8H PRN (Reason: nausea and vomiting) Qty: 20 0RF diphenhydramine HCl [Banophen] 25 mg capsule Gvoke HypoPen 2-Pack 1 mg/0.2 mL auto-injector SUBCUT atorvastatin 20 mg tablet pantoprazole 40 mg tablet,delayed release (DR/EC) PO insulin lispro [Humalog U-100 Insulin] 100 unit/mL solution Patient Comments: insulin pump metoclopramide HCl 10 mg tablet (DME) Dexcom G7 Sensor Device MISCELLANEOUS (DME) Dexcom G6 Transmitter Device MISCELLANEOUS erythromycin ethylsuccinate 400 mg/5 mL suspension for reconstitution Follow-up/Referrals: Les,REEMA Arizmendi [Primary Care Provider] - Stand Alone Forms: Work/School Release IP Time of Disposition: 11:00
== END 2025-02-04 11:07 | disposition home or self-care (01) ==
PROVIDERS: Emergency Provider Nurse Practitioner; PCP Physician Assistant
DX: E10.43 Type 1 diabetes mellitus with diabetic autonomic (poly)neuropathy (principal); K31.84 Gastroparesis; Z79.899 Other long term (current) drug therapy
CPT/HCPCS: 99211; G0463

== ENCOUNTER 2025-02-08 10:59 | Emergency (ER) | payer OTHER, SELFPAY ==
--- OUTSIDE RECORDS SUMMARY | 2025-02-08 11:03 | XMS_ITS | Encounter Summary ---
Author Organization [facility] Address [address] [place] [address] Phone Care Team Providers Care Laboratory Mechanic Helper Name Role Phone Prashanth Saldana Primary Care Provider [phone] Heidi Swift MD Unavailable Reason for Visit * Reason Comments Medication Refill Encounter Details Date Type Department Care Team (Late st Contact Info) Description 08/28/2021 Refill [facility] - Endocrinology - [place] [address] [place] [address] Heidi Swift MD [address] [address] Medication Refill Social History Tobacco [...] Coronavirus / COVID-19? Yes 08/01/2021 9:49 AM NEGATIVE CUTTER documented as of this encounter Miscellaneous Notes * Telephone Encounter - Eli Jones RN - 08/28/2021 9:00 AM NEGATIVE CUTTER Requested Prescriptions Pending Prescriptions Disp Refills ??? insulin lispro (HumaLOG) 100 UNIT/ML Solution [Pharmacy Med Name: HUMALOG 100 UNIT/ML VIAL] 30 mL 0 Sig: UP TO 100 UNITS/DAY PER INSULIN PUMP SETTINGS Next appt: 09/12/2021 TIVE CUTTER documented in this encounter Plan of Treatment Not on file documented as of this encounter Visit Diagnoses Not on filedocumented in this encounter Additional Health Concerns Infection Onset Date Last Indicated Resolved Time COVID - 19 04/13/2022 04/13/2022 04/13/2022 10:4 2 AM CDT COVID - 19 05/17/2022 05/17/2022 05/27/2022 12:1 6 AM CDT Respiratory Rule-Out 05/17/2022 05/17/2022 022 12:16 AM NEGATIVE CUTTER COVID - 19 06/27/2022 06/27/2022 07/07/2022 12:1 6 AM NEGATIVE CUTTER Influenza 06/27/2022 06/27/2022 07/04/2022 12:1 6 AM NEGATIVE CUTTER COVID - 19 04/05/2024 04/05/2024 04/05/2024 10:2 0 PM CDT COVID - 19 10/16/2024 10/16/2024 10/16/2024 7:05 AM CDT documented as of this encounter Care Teams Laboratory Mechanic Helper Relationship Specialty Start Date End Date Prashanth Saldana PAC [address] [place] [address] PCP - General Physician Tube Carrier 04/03/19 Heidi Swift MD [address] [address] Consulting Physician Endocrinology 08/09/20 09/23/24 documented as of this encounter
--- OUTSIDE RECORDS SUMMARY | 2025-02-08 11:03 | XMS_ITS | Clinical Summary ---
Author Organization [facility] Address [address] [facility] [place] [address] Care Team Providers Care Brick Wheeler Name Role Phone Unavailable Primary Care Provider Unavailabl e Source Comments [facility] [employer],non-owned Affiliates and Associated Physician Practices is amultiple site organization consisting of ambulatory clinics and hospital sitesin [place], [place], [place] and [place]. This disclosure is being madepursuant to the Care Everywhere program and may not contain all information available regarding this patient. Last updated 18.[facility] [employer] Allergies No known active allergies Medications * [...] - 105 mg/dL 04/02/2020 3:39 AM CDT [facility] Sodium 137 136 - 145 mmol/L 04/02/2020 3:39 AM CDT [facility] Potassium 3.0(L) 3.5 - 5.1 mmol/L 04/02/2020 3:39 AM CDT [facility] Chloride 104 98 - 107 mmol/L 04/02/2020 3:39 AM CDT [facility] CO2 20(L) 23 - 31 mmol/L 04/02/2020 3:39 AM CDT [facility] Calcium 9.0 8.4 - 10.4 mg/dL 04/02/2020 3:39 AM CDT [facility] Anion Gap 13 8 - 16 mmol/L 04/02/2020 3:39 AM CDT [facility] BUN 6(L) 8.9 - 20.6 mg/dL 04/02/2020 3:39 AM CDT [facility] Creatinine 0.86 0.72 - 1.25 mg/dL 04/02/2020 3:39 AM CDT [facility] eGFR by MDRD >60 >60 mL/min/1.7 3m2 04/02/2020 3:39 AM CDT [facility] eGFR by MDRD >60 >60 mL/min/1.7 3m2 04/02/2020 3:39 AM CDT [facility] Blood BLOOD SPECIMEN / Unknown Lab Venipuncture / Unknown 04/02/2020 3:06 AM CDT 04/02/2020 3:20 AM CDT Robinson Wilkins MD LAB - CHEMISTRY ORDERABLES F inal Result [facility] [address] [place] [address] * (ABNORMAL) HEMOGLOBIN A1C (04/01/2020 12:04 PM CDT) Hemoglobin A1c 8.9(H) 4.2 - 5.6 % 04/01/2020 1:31 PM CDT [facility] Estimated Average Glucose 209 mg/dL 04/01/2020 1:31 PM CDT [facility] Blood BLOOD SPECIMEN / Unknown Venipuncture / Unknown 04/01/2020 12:04 PM CDT 04/01/2020 12:08 PM CDT Narrative [facility] - 04/01/2020 1:31 PM CDT The following cutoff levels are recommended by [place] [employer]. A1c > 6.5% : considered [...] LAB - CHEMISTRY ORDERABLES F inal Result [facility] [address] [place] [address] from Last 3 Months or Most Recently Relevant to Health Maintenance [place] [address] [facility] Advance Directives * Full Code (Latest Code Status on File) Date Activated Date Inactivated Comments 04/01/2020 1:52 PM 04/02/2020 1:54 PM
--- OUTSIDE RECORDS SUMMARY | 2025-02-08 11:03 | XMS_ITS | Encounter Summary ---
Author Organization [facility] Address [address] [place] [address] Care Team Providers Care Game Show Host Name Role Phone Con Beltrán MD Unavailable [phone] Prashanth Saldana Primary Care Provider [phone] Sidney Russell MD Unavailable [phone] Encounter Details Date Type Department Care Team (Latest Contact Info) Description 01/01/2025 Results Follow-Up [facility] Gastroenterology at [address] [place] [address] Peter Rivera NP [address] [place] [address] [address] [place] [address] [place] Gastric Emptying Study Social History Tobacco Use Types Packs/Day Years Used Date Smoking Tobacco: Every Day Vaping Smokeless Tobacco: Never Alcohol Use Standard Drinks/Week Comments No 0 (1 standard drink = 0.6 oz pur e alcohol) [facility] Utilities Answer Date Recorded In the past 12 months has [employer], gas, oil, or water company threatened to [...] week 12/02/2024 How often do you attend [facility] or anglican services? Never 12/02/2024 Do you belong to [...] any time in the past 12 m [facility], were you homeless or living in a halfway (including now)? No 12/02/2024 Personal Safety Answer Date Recorded Have you ever been in or are you currently in a harmful physical or emotional relationship or is someone making you feel afraid or unsafe? 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
--- OUTSIDE RECORDS SUMMARY | 2025-02-08 11:03 | XMS_ITS | Encounter Summary ---
Author Organization [facility] Address [address] [place] [address] Phone Care Team Providers Care Strand And Binder Controller Name Role Phone Prashanth Saldana Primary Care Provider [phone] Heidi Swift MD Unavailable Reason for Visit * Reason Comments Medication Refill Encounter Details Date Type Department Care Team (Late st Contact Info) Description 09/17/2021 Refill [facility] - Endocrinology - [place] [address] [place] [address] Heidi Swift MD [address] [address] Medication Refill Social History Tobacco [...] Eli Jones RN - 09/19/2021 3:39 PM HOGSHEAD SALVAGE Requested Prescriptions Pending Prescriptions Disp Refills ??? Continuous Blood Gluc Transmit (Dexcom G6 Transmitter) Misc [Pharmacy Med Name: DEXCOM G6 TRANSMITTER] 3 Si EACH BY DOES NOT APPLY ROUTE EVERY 90 DAYS. CHANGE SENSOR EVERY 90 DAYS. Next appt: Message sent to schedule follow up. HEAD SALVAGE documented in this encounter Plan of Treatment [...] Respiratory Rule-Out 05/17/2022 05/17/2022 022 12:16 AM HOGSHEAD SALVAGE COVID - 19 06/27/2022 06/27/2022 07/07/2022 12:1 6 AM HOGSHEAD SALVAGE Influenza 06/27/2022 06/27/2022 07/04/2022 12:1 6 AM HOGSHEAD SALVAGE COVID - 19 04/05/2024 04/05/2024 04/05/2024 10:2 0 PM CDT COVID - 19 10/16/2024 10/16/2024 10/16/2024 7:05 AM CDT documented as of this encounter Care Teams Strand And Binder Controller Relationship Specialty Start Date End Date Prashanth Saldana PAC [address] [place] [address] PCP - General Physician Certified Drug Counselor 04/03/19 Heidi Swift MD [address] [id number] Consulting Physician Endocrinology 08/09/20 09/23/24 documented as of this encounter
--- OUTSIDE RECORDS SUMMARY | 2025-02-08 11:03 | XMS_ITS | Clinical Summary ---
Author Organization [facility] Address [address] [place] [address] Phone Care Team Providers Care Road Train Driver Name Role Phone Prashanth Saldana Primary Care Provider [phone] Allergies Active Allergy Reactions Criticality Noted Date [...] 1 Active Insulin Pen Needle (TechLite Pen [place]) 31G X 8 MM Misc USE TO [...] 10 Tablet 2 Active Continuous Blood Gluc Pipe Fitter Maintenance (Dexcom G6 Pipe Fitter Maintenance) Device USE TO CHECK GLUCOSE 4X DAILY. [...] 12/24/2024 10:29 AM CDT Emergency [facility] [address] [place] [address] Forest Guerrero MD Dehydration Discharge Disposition: Discharged to home or Selfcare 12/24/2024 Travel 12/16/2024 10:35 AM CDT - 12/16/2024 12:42 PM CDT Emergency [facility] [address] [place] [address] Marquis Soni, Gastroparesis Discharge Disposition: Discharged to home or Selfcare 12/16/2024 Travel from Last 3 Months Immunizations Immunization Administration Dates Next Due [id number] kiersten MCV4, Unspecif ied Formulation 04/17/2012 DTAP [...] drink = 0.6 oz pur e alcohol) [facility] [employer] Answer Date Recorded In the past 12 months has e aihuishou, gas, oil, or water [employer] threatened to shut off services in your [...] often do you attend chur ch or samaritan services? Never 10/16/2024 Do you belong to any clubs o r organizations such as cheondoism groups, unions, fraternal or athletic groups, or [...] medical care, and heating? Somewhat hard 10/16/2024 [facility] of Occupat ional Health - Occupational Stress [...] CDT LIPID PANEL Routine 06/24/2019 5:44 AM FINANCE PROFESSOR from Last 3 Months or Most Recently Relevant to Health Maintenance Results * (ABNORMAL) Urinalysis w/ Reflex (12/24/2024 9:42 AM CDT) [facility] SPECIFIC GRAVITY 1.025 1.003 - 1.030 12/24/2024 10:09 AM CDT [facility] URINE PH 6.0 5.0 - 9.0 12/24/2024 10:09 AM CDT [facility] WBC ESTERASE 25 /ul(A) Negative 12/24/2024 10:09 AM CDT [facility] NITRITE Negative Negative 12/24/2024 10:09 AM CDT [facility] PROTEIN, RANDOM URINE 500 mg/dL(A) Negative 12/24/2024 10:09 AM CDT [facility] URINE GLUCOSE, QUAL 100 mg/dL(A) Negative 12/24/2024 10:09 AM CDT [facility] URINE KETONES 15 mg/dL(A) Negative 12/24/2024 10:09 AM CDT [facility] UROBILINOGEN 1 mg/dL(A) Normal mg/dL 12/24/2024 10:09 AM CDT [facility] URINE BLOOD 10 /uL(A) Negative oumar/ul 12/24/2024 10:09 AM CDT [facility] URINALYSIS COLOR Diane 12/25/19 25 10:09 AM CDT [facility] URINALYSIS CLARITY Slightly Cloudy 12/24/2024 10:09 AM CDT [facility] WBC (Urine) 0-5 Negative, 0-5 /hpf 12/24/2024 10:09 AM CDT [facility] URINE RBC'S 6-10(A) Negative, 0-2 /hpf 12/24/2024 10:09 AM CDT [facility] EPITHELIAL CELLS Negative /lpf 12/25/19 25 10:09 AM CDT [facility] BACTERIA, URINE Few(A) Negative /hpf 12/24/2024 10:09 AM CDT [facility] URINE MUCOUS Many 12/24/2024 10:09 AM CDT [facility] CASTS 5-10/LPF Hyaline Casts(A) Negative, 0-2/lpf, 3-5/lpf, 6-10/lpf, 11-20/lpf, >20/lpf /lpf 12/24/2024 10:09 AM CDT [facility] Urine URINE SPECIMEN / Unknown Non-Phlebotomy Collection / Unknown 12/24/2024 9:42 AM CDT 12/24/2024 9:49 AM CDT us Forest Guerrero MD URINE ORDERABLES Final Res ult [facility] [address] [place] [address] * (ABNORMAL) CBC with Auto Differential (12/24/2024 9:39 AM CDT) Only the most recent of2 resultswithin the time period is included. WBC 9.80 4.00 - 12.00 10(3)/mcL 12/24/2024 9:47 AM CDT [facility] RBC 5.53 4.40 - 5.80 10(6)/[facility] 12/24/2024 9:47 AM CDT [facility] HEMOGLOBIN (HGB) 15.6 13.0 - 16.5 g/dL 12/24/2024 9:47 AM CDT [facility] HEMATOCRIT (HCT) 47.0 38.0 - 50.0 % 12/24/2024 9:47 AM CDT [facility] MCV 85.0 82.0 - 96.0 fL 12/24/2024 9:47 AM CDT [facility] MCH 28.2 26.0 - 32.0 pg 12/24/2024 9:47 AM CDT [facility] MCHC 33.2 31.0 - 36.0 g/dL 12/24/2024 9:47 AM CDT [facility] PLATELET COUNT 373 140 - 440 10(3)/[facility] 12/24/2024 9:47 AM CDT [facility] RDW 12.9 11.8 - 15.5 % 12/24/2024 9:47 AM CDT [facility] MPV 10.2 8.0 - 12.6 fL 12/24/2024 9:47 AM CDT [facility] NEUTROPHILS 71.1(H) 40.0 - 68.0 % 12/24/2024 9:47 AM CDT [facility] LYMPHOCYTES 20.4 19.0 - 49.0 % 12/24/2024 9:47 AM CDT [facility] MONOCYTES 8.2 3.0 - 13.0 % 12/24/2024 9:47 AM CDT [facility] EOSINOPHILS 0.0 0.0 - 8.0 % 12/24/2024 9:47 AM CDT [facility] BASOPHILS 0.3 0.0 - 1.0 % 12/24/2024 9:47 AM CDT [facility] ABSOLUTE NEUTROPHILS 6.97(H) 1.40 - 5.30 10(3)/[facility] 12/24/2024 9:47 AM CDT [facility] ABSOLUTE LYMPHOCYTES 2.00 0.90 - 3.30 10(3)/[facility] 12/24/2024 9:47 AM CDT [facility] ABSOLUTE MONOCYTES 0.80 0.10 - 0.90 10(3)/[facility] 12/24/2024 9:47 AM CDT [facility] ABSOLUTE EOSINOPHIL 0.00 0.00 - 0.50 10(3)/[facility] 12/24/2024 9:47 AM CDT [facility] ABSOLUTE BASOPHILS 0.03 0.00 - 0.10 10(3)/[facility] 12/24/2024 9:47 AM CDT [facility] NRBC PER 100 WBC 0 12/25/19 25 9:47 AM CDT [facility] Blood Venipuncture / Unknown 12/24/2024 9:39 AM CDT 12/24/2024 9:39 AM CDT us Forest Guerrero MD HEMATOLOGY ORDERABLES Stephie sasha Result [facility] [address] [place] [address] * Magnesium Level (12/24/2024 9:39 AM CDT) [facility] MAGNESIUM 1.9 1.6 - 2.6 mg/dL 12/24/2024 10:09 AM CDT [facility] Blood Venipuncture / Unknown 12/24/2024 9:39 AM CDT 12/24/2024 9:39 AM CDT Forest Guerrero MD CHEMISTRY ORDERABLES Final Result Performing Organization Address City/[facility] Co de Phone Number [facility] [address] [place] [address] * (ABNORMAL) Lipase (12/24/2024 9:39 AM CDT) Only the most recent of2 resultswithin the time period is included. Pathologist [facility] LIPASE 6(L) 8 - 78 U/L 12/24/2024 10:09 AM CDT [facility] Blood Venipuncture / Unknown 12/24/2024 9:39 AM CDT 12/24/2024 9:39 AM CDT Forest Guerrero MD CHEMISTRY ORDERABLES Final Result Performing Organization Address [facility] Co de Phone Number [facility] [address] [place] [address] * (ABNORMAL) CMP (12/24/2024 9:39 AM CDT) Only the most recent of2 resultswithin the time period is included. [facility] SODIUM 140 136 - 145 mmol/L 12/24/2024 10:09 AM CDT [facility] POTASSIUM 3.8 3.5 - 5.1 mmol/L 12/24/2024 10:09 AM CDT [facility] CHLORIDE 102 98 - 107 mmol/L 12/24/2024 10:09 AM CDT [facility] CO2, VENOUS 21(L) 22 - 30 mmol/L 12/24/2024 10:09 AM CDT [facility] ANION GAP 20.8(H) <18.0 mmol/L 12/24/2024 10:09 AM CDT [facility] GLUCOSE 204(H) 70 - 99 mg/dL 12/24/2024 10:09 AM CDT [facility] BUN 27(H) 9 - 21 mg/dL 12/24/2024 10:09 AM [facility] CREATININE, BLOOD 1.31(H) 0.70 - 1.30 mg/dL 12/24/2024 10:09 AM [facility] BUN/CREATININE RATIO 21(H) 12 - 20 ratio 12/24/2024 10:09 AM [facility] TOTAL PROTEIN 8.4(H) 6.0 - 8.0 g/dL 12/24/2024 10:09 AM [facility] ALBUMIN 5.1(H) 3.5 - 5.0 g/dL 12/24/2024 10:09 AM [facility] A/G RATIO 1.5 1.0 - 2.2 12/24/2024 10:09 AM [facility] CALCIUM 9.7 8.7 - 10.5 mg/dL 12/24/2024 10:09 AM [facility] T BILI 1.1 0.2 - 1.2 mg/dL 12/24/2024 10:09 AM [facility] SGOT (AST) 22 <43 U/L 12/24/2024 10:09 AM [facility] SGPT (ALT) 16 <56 U/L 12/24/2024 10:09 AM [facility] ALKALINE PHOSPHATASE 80 40 - 150 U/L 12/24/2024 10:09 AM [facility] GFR, ESTIMATED >60 >=60 12/24/2024 10:09 AM [facility] Comment: Creatinine Clearance is the preferred criteria for selecting drug dose adjustments in renally impaired patients. The GFR is provided as additional pertinent clinical information. GFR is reported in mL/min/1.73 sq m. Calculation based on the Chronic Kidney Disease Epidemiology Collaboration (CKD- EPI) equation refit without adjustment for race. GFR, EST. >60 >=60 025 10:09 AM [facility] GFR, EST. NONAFRICAN >60 >=60 12/24/2024 10:09 AM CDT [facility] Blood Venipuncture / Unknown 12/24/2024 9:39 AM CDT 12/24/2024 9:39 AM CDT Forest Guerrero MD CHEMISTRY ORDERABLES Final Result Performing Organization Address [facility] de Phone Number [facility] [address] [place] [address] * Gold Top Tube (12/24/2024 9:20 AM CDT) Blood No Phlebotomy Charged / Unknown 12/24/2024 9:20 AM CDT 12/24/2024 9:38 AM CDT Forest Guerrero MD CHEMISTRY ORDERABLES Final Result Performing Organization Address [facility] de Phone Number [facility] [address] [place] [address] * Blue Top Tube (12/24/2024 9:20 AM CDT) Blood No Phlebotomy Charged / Unknown 12/24/2024 9:20 AM CDT 12/24/2024 9:38 AM CDT Forest Guerrero MD HEMATOLOGY ORDERABLES Stephie l Result Performing Organization Address [facility] de Phone Number [facility] [address] [place] [address] * (ABNORMAL) POCT Glucose (12/24/2024 9:17 AM CDT) Only the most recent of2 resultswithin the time period is included. GLUCOSE,BEDSID E POCT 191(H) 70 - 99 mg/dL 12/24/2024 9:23 AM CDT [facility] Comment:Patient RN Performed Blood 12/24/2024 9:17 AM CDT 12/24/2024 9:23 AM CDT us None Provider POINT OF CARE TESTING Final Resu lt Performing Organization Address City/[facility]/ZIP Co de Phone Number [facility] [address] [place] [address] * TROPONIN I, HIGH SENSITIVITY (HSTRP) (12/16/2024 12:18 PM CDT) Only the most recent of2 resultswithin the time period is included. TROPONIN I, HIGH SENSITIVITY- ALEMAN 3 <=35 ng/L 12/16/2024 1:03 PM CDT [facility] Comment: High-sensitivity troponin I results are reported in ng/L making the result appear to be 1,000 times higher than the contemporary troponin I value which is reported in ng/ml. Results from [place]. Blood Venipuncture / Unknown 12/16/2024 12:18 PM CDT 12/16/2024 12:33 PM CDT us Marquis Soni DO CHEMISTRY ORDERABLES Fi nal Result Performing Organization Address [facility] Co de Phone Number [facility] [address] [place] [address] * XR CHEST SINGLE VIEW PORTABLE (12/16/2024 [...] Tristin Pretty M.D. RB: RB Report ID: [id number] Reading Location: [id number] Procedure Note Tristin Pretty MD - 12/16/2024 [...] Tristin Pretty M.D. RB: RB Report ID: [id number] Reading Location: [id number] IMPRESSION: Minimal bibasilar subsegmental atelectasis. Otherwise, no acute cardiopulmonary abnormality. us Marquis Soni DO IMG DIAGNOSTIC ORDERABL ES Final Result * ACETONE QUAL (12/16/2024 11:08 AM CDT) ACETONE Negative Negative 12/16/2024 11:29 AM CDT [facility] Blood Venipuncture / Unknown 12/16/2024 11:08 AM CDT 12/16/2024 11:14 AM CDT us Marquis Soni DO CHEMISTRY ORDERABLES Fi nal Result [facility] [address] [place] [address] * EKG 12 LEAD (12/16/2024 10:41 AM CDT) Only the most recent of2 resultswithin the time period is included. Ventricular Rate 81 BPM EXTERNAL EKG Atrial Rate 81 BPM EXTERNAL EKG P-R Interval 152 ms EXTERNAL EKG QRS Duration 74 ms EXTERNAL EKG Q-T Duration 368 ms EXTERNAL EKG QTC CALCULATION 427 ms EXTERNAL EKG P [place] 66 degrees EXTERNAL EKG R [place] 63 degrees EXTERNAL EKG T [place] 58 degrees EXTERNAL EKG 12/16/2024 10:4 1 AM CDT Impressions EXTERNAL EKG - 12/21/2024 10:53 PM CDT Normal sinus rhythm Septal infarct (cited on or before 16-DEC-2024) Abnormal ECG When compared with ECG of 16-DEC-2024 10:35, (Unconfirmed) No significant change was found Confirmed by Trina Marie ([id number]) on 12/21/2024 10:53:29 PM Narrative Procedure Note Trina Marie DO - 12/21/2024 IMPRESSION: Normal sinus rhythm Septal infarct (cited on or before 16-DEC-2024) Abnormal ECG When compared with ECG of 16-DEC-2024 10:35, (Unconfirmed) No significant change was found Confirmed by Trina Marie ([id number]) on 12/21/2024 10:53:29 PM us Marquis Soni DO IMG ECG ORDERABLES Stephie l Result Performing Organization Address City/[facility]/ZIP Co de Phone Number EXTERNAL EKG * EKG SCAN (12/16/2024 12:00 AM CDT) 12/16/2024 us Provider Scan IMG ECG ORDERABLES Final Result RESULTING AGENCY * (ABNORMAL) Hemoglobin A1C w/ Estimated Glucose (10/16/2024 2:39 AM CDT) HGB-A1C 7.9(H) 4.0 - 6.0 % 10/16/2024 6:43 AM CDT [facility] Est Average Glucose 180.0 mg/dL 10/16/2024 6:43 AM CDT [facility] Blood Venipuncture / Unknown 10/16/2024 2:39 AM CDT 10/16/2024 2:46 AM CDT Narrative [facility] - 10/16/2024 6:43 AM CDT HEMOGLOBIN A1C: DIABETIC PATIENTS: WELL-CONTROLLED: 6.2 - 7.0 INTERMEDIATE WELL-CONTROLLED: 7.0 - 9.0 POORLY-CONTROLLED: >9.0 Specimens containing greater than 5% of Hemoglobin F may result in lower than expected % HbA1C results. Sharita Kahn GROUNDS MAINTENANCE SUPERVISOR, BULB PLANTER CHEMISTRY ORDERABLES Stephie l Result Performing Organization Address [facility] de Phone Number [facility] [address] [place] [address] * (ABNORMAL) Lipid Panel AM (06/24/2019 5:44 AM FINANCE PROFESSOR) CHOLESTEROL 141 <=200 mg/dL 06/24/2019 1:58 PM FINANCE PROFESSOR [facility] TRIGLYCERIDES 158(H) <150 mg/dL 06/24/2019 1:58 PM FINANCE PROFESSOR [facility] HDL CHOLESTEROL 30.4(L) >40 mg/dL 1:58 PM FINANCE PROFESSOR [facility] LDL 79 5 - 130 mg/dL 06/24/2019 1:58 PM FINANCE PROFESSOR [facility] VLDL 32 5 - 55 mg/dL 06/24/2019 1:58 PM [facility] CHOL/HDL RATIO 4.6(H) 0.0 - 4.4 06/24/2019 1:58 PM FINANCE PROFESSOR [facility] NON-HDL CHOLESTEROL 110.6 <130 mg/dL 06/24/2019 1:58 PM FINANCE PROFESSOR [facility] LIPID FASTING 06/24/2019 1:58 PM FINANCE PROFESSOR [facility] Blood specimen (specimen) BLOOD SPECIMEN / Unknown Venipuncture / Unknown 06/24/2019 5:44 AM FINANCE PROFESSOR 06/24/2019 1:10 PM FINANCE PROFESSOR Toni Orourke MD CHEMISTRY ORDERABLES Fin al Result [facility] [address] [place] [address] from Last 3 Months or Most Recently [...] measures to stabilize the patient. Care Teams Road Train Driver Relationship Specialty Start Date End Date Prashanth Saldana, [address] [place] [address] PCP - General Physician Casing Crew 04/03/19
--- OUTSIDE RECORDS SUMMARY | 2025-02-08 11:03 | XMS_ITS | Encounter Summary ---
Author Organization [facility] Address [address] [place] [address] Phone Care Team Providers Care Pot Fluxer Name Role Phone Prashanth Saldana Primary Care Provider [phone] Heidi Swift MD Unavailable Reason for Visit * Reason Comments Medication Refill Encounter Details Date Type Department Care Team (Late st Contact Info) Description 07/24/2021 Refill [facility] - [place] [address] [place] [address] Heidi Swift MD [address] [address] Medication Refill Social History Tobacco [...] COVID-19? No / Unsure 07/07/2021 3:14 PM APPEALS OFFICER documented as of this encounter Miscellaneous Notes * Telephone Encounter - Eli Jones RN - 07/25/2021 8:10 AM APPEALS OFFICER Requested Prescriptions Pending Prescriptions Disp Refills ??? Continuous Blood Gluc Sensor (Dexcom G6 Sensor) Misc [Pharmacy Med Name: DEXCOM G6 SENSOR] Sig: CHANGE SENSOR EVERY 10 DAYS. Next appt: 08/01/2021 ALS OFFICER documented in this encounter Plan of [...] Respiratory Rule-Out 05/17/2022 05/17/2022 022 12:16 AM APPEALS OFFICER COVID - 19 06/27/2022 06/27/2022 07/07/2022 12:1 6 AM APPEALS OFFICER Influenza 06/27/2022 06/27/2022 07/04/2022 12:1 6 AM APPEALS OFFICER COVID - 19 04/05/2024 04/05/2024 04/05/2024 10:2 0 PM CDT COVID - 19 10/16/2024 10/16/2024 10/16/2024 7:05 AM CDT documented as of this encounter Care Teams Pot Fluxer Relationship Specialty Start Date End Date Prashanth Saldana [facility] [address] [place] [address] PCP - General Physician Farm Specialist 04/03/19 Heidi Swift MD [address] [address] Consulting Physician Endocrinology 08/09/20 09/23/24 documented as of this encounter
--- OUTSIDE RECORDS SUMMARY | 2025-02-08 11:03 | XMS_ITS | Encounter Summary ---
Author Organization [facility] Address [address] [place] [address] Phone Care Team Providers Care Inspector Final Assembly Mechanical Name Role Phone Prashanth Saldana Primary Care Provider [phone] Heidi Swift MD Unavailable Reason for Visit * Reason Comments Medication Refill Encounter Details Date Type Department Care Team (Late st Contact Info) Description 12/27/2021 Refill [facility] - [facility]ology - [place] [address] [place] [address] Heidi Swift MD [address] [address] Medication Refill Social History Tobacco [...] Notes * Telephone Encounter - Saadia Lawson, [facility] - 12/29/2021 11:37 AM CDT Patient calling requesting refill of: Requested Prescriptions Pending Prescriptions Disp Refills ??? 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
[2025-02-08 11:04] VITALS: BP 107/81; PULSE 86; RESP 16; TEMP 36.5; O2SAT 99
--- OUTSIDE RECORDS SUMMARY | 2025-02-08 11:04 | XMS_ITS | Data Portability ---
Author [facility] Address [address] [place] [address] Assessment No assessment recorded. Plan of Treatment Reminders Order Date Submit Date Provider Last Modified By Organization Details Last Modified Time Details Appointments None recorded. Lab CBC 2024 025 [facility], [address] [facility] [address], [place], [address], 5 10:16:08 CMP, serum or plasma 2024 025 [facility], [address] [facility] [address], [place], [address], 5 10:16:06 lipid panel, serum 2024 025 [facility], [address] [place] [address] 2, [place], [address], 5 10:16:04 HbA1c (hemoglob in A1c), blood 2024 025 CHRISTINA In-Office Order, Internal Use Only DO Not Attach Compendium DO Not Attach Compendium, Do Not Delete/merge, [id number] 12:17:21 urinalysi s, dipstick 2022 023 [email or web address] In-Office Order, Internal Use Only DO Not Attach Compendium DO Not Attach Compendium, Do Not Delete/merge, [id number] 15:45:59 Referral None recorded. Procedures None [...] By Organization Details Last Modified Time 05/30/2022 [id number] learning about type 1 diabetes kaurey Not available 05/30/2022 11:57:01 type 1 diabetes: care instructions jnanney Not available 05/30/2022 11:57:01 12/18/2022 [id number] A healthy lifestyle: care instructions jnanney Not available 12/18/2022 14:46:15 learning about type 1 diabetes jnanney Not available 12/18/2022 14:46:15 type 1 diabetes: care instructions jnanney Not available 12/18/2022 14:46:15 04/16/2023 [id number] A healthy lifestyle: care instructions jnanney Not available 04/16/2023 15:45:59 learning about type 1 diabetes jnanney Not available 04/16/2023 15:45:59 type 1 diabetes: care instructions jnanney Not available 04/16/2023 15:45:59 09/03/2024 [id number] learning about type 1 diabetes jnanney Not available 09/03/2024 12:01:53 type 1 diabetes: care instructions jnanney Not available 09/03/2024 12:01:53 01/06/2025 [id number] learning about type 1 diabetes jnanney Not [...] DO Not Attach Compendium, Do Not Delete/merge, [id number] 04/16/2023 15:37:08 04/16/2004/16/2023 urina lysis , dipst ick Nitrite negati ve Not Available In-Office Order Internal Use Only DO Not Attach Compendium DO Not Attach Compendium, Do Not Delete/merge, 04/16/2023 15:37:08 04/16/2004/16/2023 urina lysis , dipst ick Urobilinogen .2 Not Available In-Of fice Order Internal Use Only DO Not Attach Compendium DO Not Attach Compendium, Do Not Delete/merge, [id number] 04/16/2023 15:37:08 04/16/2004/16/2023 urina lysis , dipst ick Protein Negati ve Not Available In-Office Order Internal Use Only DO Not Attach Compendium DO Not Attach Compendium, Do Not Delete/merge, [id number] 04/16/2023 15:37:08 04/16/2004/16/2023 urina lysis , dipst ick pH 5.5 Not Available In-Office Order Internal Use Only DO Not Attach Compendium DO Not Attach Compendium, Do Not Delete/merge, [facility] 04/16/2023 15:37:08 04/16/20 23 04/16/2023 urina lysis , dipst ick Blood Negati ve Not Available In-Office Order Internal Use Only DO Not Attach Compendium DO Not Attach Compendium, Do Not Delete/merge, [facility] 04/16/2023 15:37:08 04/16/20 23 04/16/2023 urina lysis , dipst ick Specific [place] 1.015 Not Available In-Off ice Order Internal Use Only DO Not Attach Compendium DO Not Attach Compendium, Do Not Delete/merge, [facility] 04/16/2023 15:37:08 04/16/20 23 04/16/2023 urina lysis , dipst ick Ketone Negati ve Not Available In-Office Order Internal Use Only DO Not Attach Compendium DO Not Attach Compendium, Do Not Delete/merge, [facility] 04/16/2023 15:37:08 04/16/20 23 04/16/2023 urina lysis , dipst ick Bilirubin Negati ve Not Available In-Office Order Internal Use Only DO Not Attach Compendium DO Not Attach Compendium, Do Not Delete/merge, [facility] 04/16/2023 15:37:08 04/16/20 23 04/16/2023 urina lysis , dipst ick Glucose 1000 Not Available In-Office Order Internal Use Only DO Not Attach Compendium DO Not Attach Compendium, Do Not Delete/merge, [id number] 04/16/2023 15:37:08 04/16/20 23 04/16/2023 urina lysis , dipst ick Appearance Clear Not Available In-Offi ce Order Internal Use Only DO Not Attach Compendium DO Not Attach Compendium, Do Not Delete/merge, [facility] 04/16/2023 15:37:08 04/16/20 23 04/16/2023 urina lysis , dipst ick Color Pale Yellow Not Available In-Office Order Internal Use Only DO Not Attach Compendium DO Not Attach Compendium, Do Not Delete/merge, [id number] 04/16/2023 15:37:08 12/07/19 24 12/07/2023 Gluco se [Mass /volu me] in Blood glucose [mass/volume ] in blood 453 mg/dL low: 70mg/d Lhigh: 99mg/d L critical high GLUCO SE,BE DSIDE POCT 453 (HH) 70 - 99 mg/dL 12/06 4:[address] Not Available Not Available 12/03/2024 [...] mmol/ L 12/06 2:51 PM CDT [facility] Not Available Not Available 12/03/2024 11:58:14 12/07/19 24 12/07/2023 Basic metab olic 1999 panel - Serum or Plasm a potassium [moles/volum e] in serum or plasma 3.2 mmol/ L low: 3.5mmo l/Lhig h: 5.1mmo l/L low POTAS SIUM 3.2 (L) 3.5 - 5.1 mmol/ L 12/06 2:[address] Not Available Not Available 12/03/2024 11:58:14 12/07/19 24 12/07/2023 Basic metab olic 1999 panel - Serum or Plasm a chloride [moles/volum e] in serum or plasma 86 mmol/ L low: 98mmol /Lhigh : 107mmo l/L low CHLOR JULIENNE 86 (L) 98 - 107 mmol/ L 12/06 2:51 PM CDT [facility] Not Available Not Available 12/03/2024 11:58:14 12/07/19 24 12/07/2023 Basic metab olic 2000 panel - Serum or Plasm a carbon dioxide, total [moles/volum e] in serum or plasma 23 mmol/ L low: 22mmol /Lhigh : 30mmol /L CO2, VENOU S 23 22 - 30 mmol/ L 12/06 2:51 PM CDT [facility] Not Available Not Available 12/03/2024 11:58:14 12/07/19 24 12/07/2023 Basic metab olic 2000 panel - Serum or Plasm a anion gap in serum or plasma by calculation 27.2 mmol/ L high: 18mmol /L high ANION GAP 27.2 (H) <18.0 mmol/ L 12/06 2:51 PM CDT [facility] Not Available Not Available 12/03/2024 11:58:14 12/07/19 24 12/07/2023 Basic metab olic 1999 panel - Serum or Plasm a glucose [mass/volume ] in serum or plasma 168 mg/dL low: 70mg/d Lhigh: 99mg/d L high GLUCO SE 168 (H) 70 - 99 mg/dL 12/06 2:51 PM CDT [facility] Not Available Not Available [...] 1.30 mg/dL 12/06 2:51 PM CDT [facility] [employer] R LAB Not Available Not Available 12/03/2024 11:58:14 12/07/19 24 12/07/2023 [facility] 1999 panel - Serum or Plasm a urea nitrogen/cre atinine [mass ratio] in serum or plasma 19 text: 12 - 20 ratio BUN/C REATI NINE RATIO 19 12 - 20 ratio 12/06 2:51 PM CDT [facility] [employer] Not Available Not Available 12/03/2024 11:58:14 12/07/19 24 12/07/2023 [facility] 1999 panel - Serum or Plasm a calcium [mass/volume ] in serum or plasma 8.6 mg/dL low: 8.7mg/ dLhigh : 10.5mg /dL low CALCI UM 8.6 (L) 8.7 - 10.5 mg/dL 12/06 2:51 PM CDT [facility] [employer] [facility] LAB Not Available Not Available 12/03/2024 11:58:14 12/07/19 24 12/07/2023 [facility] 1999 panel - Serum or Plasm a glomerular filtration rate [volume rate/area] in serum, plasma or blood by creatinine-b ased formula (MDRD)/1.73 sq M among non black population 37 low: 60 low GFR, ESTIM ATED 37 (L) >=60 12/06 2:51 PM CDT [facility] [employer] Not Available Not Available 12/03/2024 11:58:14 12/07/19 24 12/07/2023 [facility] 1999 panel - Serum or Plasm a glomerular filtration rate [volume rate/area] in serum, plasma or blood by creatinine-b ased formula (MDRD)/1.73 sq M among black population 40 low: 60 low GFR, EST. AFRIC AN 40 (L) >=60 12/06 2:51 PM CDT [facility] Not Available Not Available 12/03/2024 11:58:14 12/07/19 24 12/07/2023 Basic metab olic 2000 panel - Serum or Plasm a glomerular filtration rate [volume rate/area] in serum, plasma or blood by creatinine-b ased formula (MDRD)/1.73 sq M among non black population 33 low: 60 low GFR, EST. NONAF RICAN 33 (L) >=60 12/06 2:[address] Not Available [...] room air 12/06 12:22 PM CDT [facility] Not Available [...] [facility] Not Available Not Available 12/03/2024 11:58:14 12/07/19 24 12/07/2023 Gas panel - Venou s blood oxygen [partial pressure] in venous blood 55 text: 30 - 50 mmHg high PO2 VENOU S 55 (H) 30 - 50 mmHg 12/06 12:22 PM [facility] Not [facility] Not Available 12/03/2024 11:58:14 12/07/19 24 12/07/2023 Gas panel - Venou s blood oxygen saturation in venous blood 85 % low: 60%hig h: 85% O2 SAT JOHNNIE, MEASU RED 85 60 - 85 % 12/06 12:22 PM [facility] Not [facility] Not Available 12/03/2024 11:58:14 12/07/19 24 12/07/2023 Gas panel - Venou s blood bicarbonate [moles/volum e] in blood 25.8 mmol/ L low: 22mmol /Lhigh : 26mmol /L BICAR BONAT E 25.8 22.0 - 26.0 mmol/ L 12/06 12:22 PM CDT [facility] Not Available Not Available 12/03/2024 11:58:14 12/07/19 24 12/07/2023 Gas panel - Venou s blood base venous 4.7 mmol/ L low: -2mmol /Lhigh : 3mmol/ L high BASE VENOU S 4.7 (H) -2.0 - 3.0 mmol/ L 12/06 12:22 PM CDT [facility] Not Available Not Available 12/03/2024 11:58:14 12/07/19 24 12/07/2023 Gas panel - Venou s blood carboxyhemog lobin/hemogl obin.total in blood 1.2 % low: 0%high : 5% CARBO XYHEM OGLOB IN 1.2 0.0 - 5.0 % 12/06 12:22 PM [facility] Not [facility] Not Available [...] 10(3) /mcL 12/06 11:[address] [facility] Not Available Not Available 12/03/2024 11:58:14 12/07/19 24 12/07/2023 CBC W Auto Diffe renti al panel - Blood erythrocytes [#/volume] in blood by automated count 5.47 text: 4.40 - 5.80 10(6)/ mcL RBC 5.47 4.40 - 5.80 10(6) /mcL 12/06 11:[address] [facility] Not Available Not Available 12/03/2024 11:58:14 12/07/19 24 12/07/2023 CBC W Auto Diffe renti al panel - Blood hemoglobin [mass/volume ] in blood 16.2 g/dL low: 13g/dL high: 16.5g/ dL HEMOG LOBIN (HGB) 16.2 13.0 - 16.5 g/dL 12/06 11:[address] [facility] Not Available Not Available 12/03/2024 11:58:14 12/07/19 24 12/07/2023 CBC W Auto Diffe renti al panel - Blood hematocrit [volume fraction] of blood by automated count 45.5 % low: 38%hig h: 50% HEMAT OCRIT (HCT) 45.5 38.0 - 50.0 % 12/06 11:38 AM CDT [facility] Not Available Not Available 12/03/2024 11:58:14 12/07/19 24 12/07/2023 CBC W Auto Diffe renti al panel - Blood MCV [entitic mean volume] in red blood cells by automated count 83.2 fL low: 82fLhi gh: 96fL MCV 83.2 82.0 - 96.0 fL 12/06 11:38 AM CDT [facility] Not Available Not Available 12/03/2024 11:58:14 12/07/19 24 12/07/2023 CBC W Auto Diffe renti al panel - Blood MCH [entitic mass] by automated count 29.6 pg low: 26pghi gh: 32pg MCH 29.6 26.0 - 32.0 pg 12/06 11:38 AM CDT [facility] Not Available Not Available 12/03/2024 11:58:14 12/07/19 24 12/07/2023 CBC W Auto Diffe renti al panel - Blood MCHC [entitic mass/volume] in red blood cells by automated count 35.6 g/dL low: 31g/dL high: 36g/dL MCHC 35.6 31.0 - 36.0 g/dL 12/06 11:38 AM CDT [facility] Not Available Not Available 12/03/2024 11:58:14 12/07/19 24 12/07/2023 CBC W Auto Diffe renti al panel - Blood platelets [#/volume] in blood 464 text: 140 - 440 10(3)/ mcL high PLATE LET COUNT 464 (H) 140 - 440 10(3) /mcL 12/06 11:38 AM CDT [facility] Not Available Not Available 12/03/2024 11:58:14 12/07/19 24 12/07/2023 CBC W Auto Diffe renti al panel - Blood erythrocyte [distwidth] in red blood cells by automated count 13.2 % low: 11.8%h igh: 15.5% RDW 13.2 11.8 - 15.5 % 12/06 11:38 AM CDT [facility] Not Available Not Available 12/03/2024 [...] 13.0 % 12/06 11:[address] Not Available [...] - 1.0 % 12/06 11:38 AM CDT [facility] Not Available Not Available 12/03/2024 11:58:14 12/07/19 24 12/07/2023 CBC W Auto Diffe renti al panel - Blood neutrophils [#/volume] in blood by automated count 17.42 text: 1.40 - 5.30 10(3)/ mcL high ABSOL TANGIRNAQ NEUTR OPHIL S 17.42 (H) 1.40 - 5.30 10(3) /mcL 12/06 11:38 AM CDT [facility] Not Available Not Available 12/03/2024 11:58:14 12/07/19 24 12/07/2023 CBC W Auto Diffe renti al panel - Blood lymphocytes [#/volume] in blood by automated count 1.53 text: 0.90 - 3.30 10(3)/ mcL ABSOL TANGIRNAQ LYMPH OCYTE S 1.53 0.90 - 3.30 10(3) /mcL 12/06 11:38 AM CDT [facility] Not Available Not Available 12/03/2024 11:58:14 12/07/19 24 12/07/2023 CBC W Auto Diffe renti al panel - Blood monocytes [#/volume] in blood by automated count 1.92 text: 0.10 - 0.90 10(3)/ mcL high ABSOL TANGIRNAQ MONOC YTES 1.92 (H) 0.10 - 0.90 10(3) /mcL 12/06 11:38 AM CDT [facility] Not Available Not Available 12/03/2024 11:58:14 12/07/19 24 12/07/2023 CBC W Auto Diffe renti al panel - Blood eosinophils [#/volume] in blood by automated count 0 text: 0.00 - 0.50 10(3)/ mcL ABSOL TANGIRNAQ EOSIN OPHIL 0.00 0.00 - 0.50 10(3) /mcL 12/06 11:38 AM CDT [facility] Not Available Not Available 12/03/2024 11:58:14 12/07/19 24 12/07/2023 CBC W Auto Diffe renti al panel - Blood basophils [#/volume] in blood by automated count 0.03 text: 0.00 - 0.10 10(3)/ mcL ABSOL TANGIRNAQ BASOP HILS 0.03 0.00 - 0.10 10(3) [...] - 78 U/L 12/06 11:59 AM CDT [facility] Not Available Not [...] 5.1 mmol/ L 12/06 12:06 PM CDT [facility] Not Available Not Available 09/03/2024 11:01:15 12/07/19 24 12/07/2023 Compr ehens yen metab olic 1999 panel - Serum or Plasm a chloride [moles/volum e] in serum or plasma 77 mmol/ L low: 98mmol /Lhigh : 107mmo l/L low CHLOR JULIENNE 77 (L) 98 - 107 mmol/ L 12/06 12:06 PM [facility] Not [facility] Not Available 09/03/2024 11:01:15 12/07/19 24 12/07/2023 Compr ehens yen metab olic 1999 panel - Serum or Plasm a carbon dioxide, total [moles/volum e] in serum or plasma 23 mmol/ L low: 22mmol /Lhigh : 30mmol /L CO2, VENOU S 23 22 - 30 mmol/ L 12/06 12:06 PM CDT [facility] Not Available Not Available 09/03/2024 11:01:15 12/07/19 24 12/07/2023 Compr ehens yen metab olic 1999 panel - Serum or Plasm a anion gap in serum or plasma 33.4 mmol/ L high: 18mmol /L high ANION GAP 33.4 (H) <18.0 mmol/ L 12/06 12:06 PM CDT [facility] Not Available Not Available 09/03/2024 11:01:15 12/07/19 24 12/07/2023 Compr ehens yen metab ic 1999 panel - Serum or Plasm a glucose [mass/volume ] in serum or plasma 377 mg/dL low: 70mg/d Lhigh: 99mg/d L high GLUCO SE 377 (H) 70 - 99 mg/dL 12/06 12:06 PM CDT [facility] Not Available Not Available 09/03/2024 11:01:15 12/07/19 24 12/07/2023 Compr ehens yen metab olic 1999 panel - Serum or Plasm a urea nitrogen [mass/volume ] in serum or plasma 48 mg/dL low: 9mg/dL high: 21mg/d L high BUN 48 (H) 9 - 21 mg/dL 12/06 12:06 PM CDT [facility] Not Available Not Available 09/03/2024 11:01:15 12/07/19 24 12/07/2023 Compr ehens yen metab olic 1999 panel - Serum or Plasm a creatinine [mass/volume ] in serum or plasma 2.8 mg/dL low: 0.7mg/ dLhigh : 1.3mg/ dL high CREAT ININE , BLOOD 2.80 (H) 0.70 - 1.30 mg/dL 12/06 12:06 PM CDT [facility] Not Available Not Available 09/03/2024 11:01:15 12/07/19 24 12/07/2023 Compr ehens yen metab olic 1999 panel - Serum or Plasm a urea nitrogen/cre atinine [mass ratio] in serum or plasma 17 text: 12 - 20 ratio BUN/C REATI NINE RATIO 17 12 - 20 ratio 12/06 12:06 PM CDT [facility] Not Available Not Available 09/03/2024 11:01:15 12/07/19 24 12/07/2023 Compr ehens yen metab olic 1999 panel - Serum or Plasm a protein [mass/volume ] in serum or plasma 8.4 g/dL low: 6.3g/d Lhigh: 8.2g/d L high TOTAL PROTE IN 8.4 (H) 6.3 - 8.2 g/dL 12/06 12:06 PM CDT [facility] Not Available Not Available 09/03/2024 11:01:15 12/07/19 24 12/07/2023 Compr ehens yen metab olic 1999 panel - Serum or Plasm a albumin [mass/volume ] in serum or plasma 4.7 g/dL low: 3.5g/d Lhigh: 5g/dL ALBUM IN 4.7 3.5 - 5.0 g/dL 12/06 12:06 PM CDT [facility] Not Available Not Available 09/03/2024 11:01:15 12/07/19 24 12/07/2023 Compr ehens yen metab olic 1999 panel - Serum or Plasm a albumin/glob ulin [mass ratio] in serum or plasma 1.3 low: 1high: 2.2 A/G RATIO 1.3 1.0 - 2.2 12/06 12:06 PM CDT [facility] Not Available Not Available 09/03/2024 11:01:15 12/07/19 24 12/07/2023 Compr ehens yen metab olic 1999 panel - Serum or Plasm a calcium [mass/volume ] in serum or plasma 9.3 mg/dL low: 8.7mg/ dLhigh : 10.5mg /dL CALCI UM 9.3 8.7 - 10.5 mg/dL 12/06 12:06 PM CDT [facility] [employer] R LAB Not Available Not Available 09/03/2024 11:01:15 12/07/19 24 12/07/2023 Compr ens yen metab olic 1999 panel - Serum or Plasm a bilirubin.to su [mass/volume ] in serum or plasma 1.1 mg/dL low: 0.2mg/ dLhigh : 1.2mg/ dL T BILI 1.1 0.2 - 1.2 mg/dL 12/06 12:06 PM CDT [facility] [employer] R LAB Not Available Not Available 09/03/2024 11:01:15 12/07/19 24 12/07/2023 Compr ehens yen metab olic 1999 panel - Serum or Plasm a aspartate aminotransfe rase [enzymatic activity/vol ume] in serum or plasma 32 U/L low: 5U/Lhi gh: 34U/L SGOT (AST) 32 5 - 34 U/L 12/06 12:06 PM CDT [facility] [employer] R LAB Not Available Not Available 09/03/2024 11:01:15 12/07/19 24 12/07/2023 Compr ehens yen metab olic 1999 panel - Serum or Plasm a alanine aminotransfe rase [enzymatic activity/vol ume] in serum or plasma 41 U/L low: 0U/Lhi gh: 55U/L SGPT (ALT) 41 0 - 55 U/L 12/06 12:06 PM CDT [facility] Not Available Not Available 09/03/2024 11:01:15 12/07/19 24 12/07/2023 Compr ehens yen metab olic 1999 panel - Serum or Plasm a alkaline phosphatase [enzymatic activity/vol ume] in serum or plasma 115 U/L low: 40U/Lh igh: 150U/L ALKAL INE PHOSP HATAS E 115 40 - 150 U/L 12/06 12:[address] Not Available Not Available 09/03/2024 11:01:15 12/07/19 24 12/07/2023 Compr ehens yen metab olic 2000 panel - Serum or Plasm a glomerular filtration rate/1.73 sq M.predicted among non-blacks [volume rate/area] in serum, plasma or blood by creatinine-b ased formula (MDRD) 31 low: 60 low GFR, ESTIM ATED 31 (L) >=60 12/06 12:[address] [facility] Not Available Not Available 09/03/2024 11:01:15 12/07/19 24 12/07/2023 Compr ehens yen metab olic 2000 panel - Serum or Plasm a glomerular filtration rate/1.73 sq M.predicted among blacks [volume rate/area] in serum, plasma or blood by creatinine-b ased formula (MDRD) 34 low: 60 low GFR, EST. AFRIC AN 34 (L) >=60 12/06 12:[address] [facility] Not Available Not Available 09/03/2024 11:01:15 12/07/19 24 12/07/2023 Compr ehens yen metab olic 2000 panel - Serum or Plasm a glomerular filtration rate/1.73 sq M.predicted among non-blacks [volume rate/area] in serum, plasma or blood by creatinine-b ased formula (MDRD) 28 low: 60 low GFR, EST. NONAF RICAN 28 (L) >=60 12/06 12:[address] Not Available [...] mmol/ L 04/05 9:56 PM CDT [facility] [employer] [facility] LAB Not Available Not Available 12/03/2024 [...] yen, Error 04/05 10:20 PM CDT [facility] [employer] [facility] LAB Not Available Not Available 12/03/2024 [...] yen Negat yen 04/05 10:20 PM CDT [facility] [employer] [facility] Not Available Not Available 12/03/2024 [...] Negat yen 04/05 10:20 PM CDT [facility] LAB Not Available [...] Detec leodan) 04/05 10:20 PM CDT [facility] [employer] LAB Not Available Not Available 12/03/2024 [...] T 04/10 6:01 PM CDT [facility] Not Available [...] Negat yen 04/05 4:[address] [facility] Not Available [...] 99 mg/dL 04/06 6:23 AM CDT [facility] Not Available [...] 12.00 10(3) /mcL 04/06 5:28 AM CDT [facility] Not Available Not Available 12/03/2024 11:56:35 04/06/20 24 04/06/2024 CBC W Auto Diffe renti al panel - Blood erythrocytes [#/volume] in blood by automated count 4.18 text: 4.40 - 5.80 10(6)/ mcL low RBC 4.18 (L) 4.40 - 5.80 10(6) /mcL 04/06 5:28 AM CDT [facility] [employer] [facility] LAB Not Available Not Available 12/03/2024 11:56:35 04/06/20 24 04/06/2024 CBC W Auto Diffe renti al panel - Blood hemoglobin [mass/volume ] in blood 12.1 g/dL low: 13g/dL high: 16.5g/ dL low HEMOG LOBIN (HGB) 12.1 (L) 13.0 - 16.5 g/dL 04/06 5:28 AM CDT [facility] [employer] [facility] Not Available Not Available 12/03/2024 11:56:35 04/06/20 24 04/06/2024 CBC W Auto Diffe renti al panel - Blood hematocrit [volume fraction] of blood by automated count 35.8 % low: 38%hig h: 50% low HEMAT OCRIT (HCT) 35.8 (L) 38.0 - 50.0 % 04/06 5:28 AM CDT [facility] [employer] [facility] Not Available Not Available 12/03/2024 11:56:35 04/06/20 24 04/06/2024 CBC W Auto Diffe renti al panel - Blood MCV [entitic mean volume] in red blood cells by automated count 85.6 fL low: 82fLhi gh: 96fL MCV 85.6 82.0 - 96.0 fL 04/06 5:28 AM CDT [facility] Not Available Not Available 12/03/2024 11:56:35 04/06/20 24 04/06/2024 CBC W Auto Diffe renti al panel - Blood MCH [entitic mass] by automated count 28.9 pg low: 26pghi gh: 32pg MCH 28.9 26.0 - 32.0 pg 04/06 5:28 AM CDT [facility] Not Available Not Available 12/03/2024 11:56:35 04/06/20 24 04/06/2024 CBC W Auto Diffe renti al panel - Blood MCHC [entitic mass/volume] in red blood cells by automated count 33.8 g/dL low: 31g/dL high: 36g/dL MCHC 33.8 31.0 - 36.0 g/dL 04/06 5:28 [facility] Not Available 12/03/2024 11:56:35 04/06/20 24 04/06/2024 CBC W Auto Diffe ramanti al panel - Blood platelets [#/volume] in blood 287 text: 140 - 440 10(3)/ mcL PLATE LET COUNT 287 140 - 440 10(3) /mcL 04/06 5:28 AM [facility] Not Available 12/03/2024 11:56:35 04/06/20 24 04/06/2024 CBC W Auto Diffe renti al panel - Blood erythrocyte [distwidth] in red blood cells by automated count 13.7 % low: 11.8%h igh: 15.5% RDW 13.7 11.8 - 15.5 % 04/06 5:28 AM [facility] Not [facility] Not Available [...] 145 mmol/ L 04/06 5:36 AM CDT [facility] Not Available Not Available 12/03/2024 11:56:34 04/06/20 24 04/06/2024 Basic metab olic 1999 panel - Serum or Plasm a potassium [moles/volum e] in serum or plasma 3.5 mmol/ L low: 3.5mmo l/Lhig h: 5.1mmo l/L POTAS SIUM 3.5 3.5 - 5.1 mmol/ L 04/06 5:36 AM CDT [facility] Not Available Not Available 12/03/2024 11:56:34 04/06/20 24 04/06/2024 Basic metab olic 1999 panel - Serum or Plasm a chloride [moles/volum e] in serum or plasma 95 mmol/ L low: 98mmol /Lhigh : 107mmo l/L low CHLOR JULIENNE 95 (L) 98 - 107 mmol/ L 04/06 5:36 AM CDT [facility] Not Available [...] - 99 mg/dL 04/06 5:36 AM CDT [facility] Not Available [...] [facility] [employer] R LAB Not Available Not Available 12/03/2024 11:56:34 04/06/20 24 04/06/2024 Basic metab olic 1999 panel - Serum or Plasm a calcium [mass/volume ] in serum or plasma 7.6 mg/dL low: 8.7mg/ dLhigh : 10.5mg /dL low CALCI UM 7.6 (L) 8.7 - 10.5 mg/dL 04/06 5:36 AM CDT [facility] [employer] [facility] Not Available Not Available 12/03/2024 11:56:34 04/06/20 24 04/06/2024 Basic metab olic 1999 panel - Serum or Plasm a glomerular filtration rate [volume rate/area] in serum, plasma or blood by creatinine-b ased formula (MDRD)/1.73 sq M among non black population 53 low: 60 low GFR, ESTIM ATED 53 (L) >=60 04/06 5:36 AM CDT [facility] [employer] [facility] Not Available Not Available 12/03/2024 11:56:34 04/06/20 24 04/06/2024 Basic metab olic 1999 panel - Serum or Plasm a glomerular filtration rate [volume rate/area] in serum, plasma or blood by creatinine-b ased formula (MDRD)/1.73 sq M among black population 56 low: 60 low GFR, EST. AFRIC AN 56 (L) >=60 04/06 5:36 AM CDT [facility] [employer] [facility] Not Available Not Available 12/03/2024 11:56:34 04/06/20 24 04/06/2024 Basic metab olic 2000 panel - Serum or Plasm a glomerular filtration rate [volume rate/area] in serum, plasma or blood by creatinine-b ased formula (MDRD)/1.73 sq M among non black population 47 low: 60 low GFR, EST. NONAF RICAN 47 (L) >=60 04/06 5:36 AM CDT [facility] [employer] R LAB Not Available Not Available 12/03/2024 [...] 4.5 mg/dL 04/06 5:36 AM CDT [facility] [employer] [facility] Not Available Not Available 12/03/2024 [...] - 2.6 mg/dL 04/06 5:36 AM CDT [facility] Not Available Not Available 12/03/2024 [...] [facility] Not Available [...] [facility] Not Available Not Available 12/03/2024 11:56:34 04/06/20 24 04/06/2024 Gas panel - Venou s blood oxygen [partial pressure] in venous blood 114 text: 30 - 50 mmHg high PO2 VENOU S 114 (H) 30 - 50 mmHg 04/06 2:30 AM CDT [facility] Not Available Not Available 12/03/2024 11:56:34 04/06/20 24 04/06/2024 Gas panel - Venou s blood oxygen saturation in venous blood 99 % low: 60%hig h: 85% high O2 SAT JOHNNIE, MEASU RED 99 (H) 60 - 85 % 04/06 2:30 AM CDT [facility] Not Available Not Available 12/03/2024 11:56:34 04/06/20 24 04/06/2024 Gas panel - Venou s blood bicarbonate [moles/volum e] in blood 32 mmol/ L low: 22mmol /Lhigh : 26mmol /L high BICAR BONAT E 32.0 (H) 22.0 - 26.0 mmol/ L 04/06 2:30 AM CDT [facility] [employer] R LAB Not Available Not Available 12/03/2024 11:56:34 04/06/20 24 04/06/2024 Gas panel - Venou s blood base venous 9.9 mmol/ L low: -2mmol /Lhigh : 3mmol/ L high BASE VENOU S 9.9 (H) -2.0 - 3.0 mmol/ L 04/06 2:30 AM CDT [facility] [employer] R LAB Not Available Not Available 12/03/2024 11:56:34 04/06/20 24 04/06/2024 Gas panel - Venou s blood carboxyhemog lobin/hemogl obin.total in blood 2.2 % low: 0%high : 5% CARBO XYHEM OGLOB IN 2.2 0.0 - 5.0 % 04/06 2:30 AM CDT [facility] [employer] [facility] LAB Not Available Not Available 12/03/2024 11:56:34 04/06/20 24 04/06/2024 Gas panel - Venou s blood methemoglobi n/hemoglobin .total in blood 0.4 % low: 0%high : 1.5% METHE MOGLO BIN 0.4 0.0 - 1.5 % 04/06 2:30 AM CDT [facility] [employer] R LAB Not Available Not Available 12/03/2024 [...] - 7.43 04/05 11:28 PM CDT [facility] Not Available Not Available 12/03/2024 11:56:34 04/06/20 24 04/06/2024 pH of Venou s blood interpretati on and review of laboratory results Abnorm al Not Available Not Available 11:56:34 09/03/19 25 09/04/2024 LIPID PANEL cholesterol, total 256 mg/dL 100-19 9 above high normal Not Available [facility] & [address], [address], 09/04/2024 10:16:04 09/03/19 25 09/04/2024 LIPID PANEL triglyceride s 125 mg/dL 0-149 Not Available [address], [address], 09/04/2024 10:16:04 09/03/19 25 09/04/2024 LIPID PANEL HDL cholesterol 49 mg/dL >39 Not Available [address], [address], 09/04/2024 10:16:04 09/03/19 25 09/04/2024 LIPID PANEL VLDL cholesterol kiersten 23 mg/dL 5-40 Not Available [address], [address], 09/04/2024 10:16:04 09/03/19 25 09/04/2024 LIPID PANEL LDL chol calc (nih) 184 mg/dL 0-99 above high normal Not Available [address], [address], 09/04/2024 10:16:04 09/03/19 25 09/04/2024 COMP. METAB OLIC PANEL (14) glucose 108 mg/dL 70-99 above high normal Not Available [address], [address], 09/04/2024 10:16:06 09/03/19 25 09/04/2024 COMP. METAB OLIC PANEL (14) BUN 18 mg/dL 6-20 Not Available [address], [address], 09/04/2024 10:16:06 09/03/19 25 09/04/2024 COMP. METAB OLIC PANEL (14) creatinine 0.99 mg/dL 0.76-1 .27 Not Available [address], [address], 09/04/2024 10:16:06 09/03/19 25 09/04/2024 COMP. METAB OLIC PANEL (14) eGFR 108 mL/mi n/1.7 3 >59 Not Available [address], [address], 09/04/2024 10:16:06 09/03/19 25 09/04/2024 COMP. METAB OLIC PANEL (14) BUN/creatini ne ratio 18 9-20 Not Available [address], [address], 09/04/2024 10:16:06 09/03/19 25 09/04/2024 COMP. METAB OLIC PANEL (14) sodium 142 mmol/ L 134-14 4 Not Available [address], [address], 09/04/2024 10:16:06 09/03/19 25 09/04/2024 COMP. METAB OLIC PANEL (14) potassium 5.4 mmol/ L 3.5-5. 2 above high normal Not Available [address], [address], 09/04/2024 10:16:06 09/03/19 25 09/04/2024 COMP. METAB OLIC PANEL (14) chloride 104 mmol/ L 96-106 Not Available [address], [address], 09/04/2024 10:16:06 09/03/19 25 09/04/2024 COMP. METAB OLIC PANEL (14) carbon dioxide, total 23 mmol/ L 20-29 Not Available [address], [address], 09/04/2024 10:16:06 09/03/19 25 09/04/2024 COMP. METAB OLIC PANEL (14) calcium 9.8 mg/dL 8.7-10 .2 Not Available [address], [address], 09/04/2024 10:16:06 09/03/19 25 09/04/2024 COMP. METAB OLIC PANEL (14) protein, total 7.2 g/dL 6.0-8. 5 Not Available [address], [address], 09/04/2024 10:16:06 09/03/19 25 09/04/2024 COMP. METAB OLIC PANEL (14) albumin 4.6 g/dL 4.3-5. 2 Not Available [address], [address], 09/04/2024 10:16:06 09/03/19 25 09/04/2024 COMP. METAB OLIC PANEL (14) globulin, total 2.6 g/dL 1.5-4. 5 Not Available [address], [address], 09/04/2024 10:16:06 09/03/19 25 09/04/2024 COMP. METAB OLIC PANEL (14) bilirubin, total 0.2 mg/dL 0.0-1. 2 Not Available [address], [address], 09/04/2024 10:16:06 09/03/19 25 09/04/2024 COMP. METAB OLIC PANEL (14) alkaline phosphatase 92 IU/L 44-121 Not Available [address], [address], 09/04/2024 10:16:06 09/03/19 25 09/04/2024 COMP. METAB OLIC PANEL (14) AST (SGOT) 16 IU/L 0-[address] [facility] & [address], [address], 09/04/2024 10:16:06 09/03/1909/04/2024 COMP. METAB OLIC PANEL (14) ALT (SGPT) 11 IU/L 0-44 Not Available [address], [address], 09/04/2024 10:16:06 09/03/1909/04/2024 CARDI OVASC ULAR REPOR T interpretati on Note Suppl ement al repor t is avail able. Not Available [address], [address], 09/04/2024 10:16:07 09/03/1909/04/2024 CARDI OVASC ULAR REPOR T pdf . Not Available [facility] & [address], [address], 09/04/2024 10:16:07 09/03/1909/04/2024 CBC, PLATE LET, NO DIFFE RENTI AL WBC 7.8 x10e3 /uL 3.4-10 .8 Not Available [address], [address], 09/04/2024 10:16:08 09/03/1909/04/2024 CBC, PLATE LET, NO DIFFE RENTI AL RBC 4.95 x10e6 /uL 4.14-5 .80 Not Available [address], [address], 09/04/2024 10:16:08 09/03/1909/04/2024 CBC, PLATE LET, NO DIFFE RENTI AL hemoglobin 13.8 g/dL 13.0-1 7.7 Not Available [facility] & [address], [address], 09/04/2024 10:16:08 09/03/1909/04/2024 CBC, PLATE LET, NO DIFFE RENTI AL hematocrit 43.6 % 37.5-5 1.0 Not Available [address], [address], 09/04/2024 10:16:08 09/03/1909/04/2024 CBC, PLATE LET, NO DIFFE RENTI AL MCV 88 fL 79-97 Not Available [address], [address], 09/04/2024 10:16:08 09/03/1909/04/2024 CBC, PLATE LET, NO DIFFE RENTI AL MCH 27.9 pg 26.6-3 3.0 Not Available [address], [address], 09/04/2024 10:16:08 09/03/1909/04/2024 CBC, PLATE LET, NO DIFFE RENTI AL MCHC 31.7 g/dL 31.5-3 5.7 Not Available [address], [address], 09/04/2024 10:16:08 09/03/1909/04/2024 CBC, PLATE LET, NO DIFFE RENTI AL RDW 13.8 % 11.6-1 5.4 Not Available [address], [address], 09/04/2024 10:16:08 09/03/1909/04/2024 CBC, PLATE LET, NO DIFFE RENTI AL platelets 415 x10e3 /uL 150-45 0 Not Available [address], [address], 09/04/2024 10:16:08 09/03/19 25 09/03/2024 HbA1c (hemo globi n A1c), blood HbA1c 9.0 Not Available In-Office Order Internal Use Only DO Not Attach Compendium DO Not Attach Compendium, Do Not Delete/merge, [id number] 09/03/2024 12:01:31 10/17/19 25 10/16/2024 Gluco se [Mass /volu me] in Blood glucose [mass/volume ] in blood 94 mg/dL low: 70mg/d Lhigh: 99mg/d L GLUCO SE,BE DSIDE POCT 94 70 - 99 mg/dL 10/16 8:[address] [facility] Not Available Not [...] Inval id 10/16 7:[address] Not Available [...] Negat yen, Error 10/16 7:05 AM CDT [facility] Not Available Not Available 12/03/2024 [...] yen Negat yen 10/16 7:05 AM CDT [facility] Not Available Not Available 12/03/2024 [...] yen Negat yen 10/16 7:05 AM CDT [facility] Not Available Not Available 12/03/2024 [...] Not Detec leodan) 10/16 7:05 AM CDT [facility] Not Available Not Available 12/03/2024 [...] 145 mmol/ L 10/16 6:47 AM CDT [facility] Not Available Not Available 12/03/2024 11:57:27 10/17/1910/16/2024 Basic metab olic 1999 panel - Serum or Plasm a potassium [moles/volum e] in serum or plasma 4.1 mmol/ L low: 3.5mmo l/Lhig h: 5.1mmo l/L POTAS SIUM 4.1 3.5 - 5.1 mmol/ L 10/16 6:47 AM CDT [facility] Not Available Not Available 12/03/2024 11:57:27 10/17/1910/16/2024 Basic metab olic 1999 panel - Serum or Plasm a chloride [moles/volum e] in serum or plasma 113 mmol/ L low: 98mmol /Lhigh : 107mmo l/L high CHLOR JULIENNE 113 (H) 98 - 107 mmol/ L 10/16 6:47 AM CDT [facility] Not Available Not Available 12/03/2024 11:57:27 10/17/19 25 10/16/2024 Basic metab olic 1999 panel - Serum or Plasm a carbon dioxide, total [moles/volum e] in serum or plasma 22 mmol/ L low: 22mmol /Lhigh : 30mmol /L CO2, VENOU S 22 22 - 30 mmol/ L 10/16 6:47 AM CDT [facility] Not Available Not Available 12/03/2024 11:57:27 10/17/19 25 10/16/2024 Basic metab olic 2000 panel - Serum or Plasm a anion gap in serum or plasma by calculation 12.1 mmol/ L high: 18mmol /L ANION GAP 12.1 <18.0 mmol/ L 10/16 6:47 AM CDT [facility] Not Available Not Available 12/03/2024 11:57:27 10/17/19 25 10/16/2024 Basic metab olic 1999 panel - Serum or Plasm a glucose [mass/volume ] in serum or plasma 107 mg/dL low: 70mg/d Lhigh: 99mg/d L high GLUCO SE 107 (H) 70 - 99 mg/dL 10/16 6:47 AM CDT [facility] Not Available Not Available 12/03/2024 11:57:27 10/17/19 25 10/16/2024 Basic metab olic 1999 panel - Serum or Plasm a urea nitrogen [mass/volume ] in serum or plasma 24 mg/dL low: 9mg/dL high: 21mg/d L high BUN 24 (H) 9 - 21 mg/dL 10/16 6:47 AM T [facility] [employer] LAB Not Available Not Available 12/03/2024 11:57:27 10/17/19 25 10/16/2024 Basic metab olic 1999 panel - Serum or Plasm a creatinine [mass/volume ] in serum or plasma 1.15 mg/dL low: 0.7mg/ dLhigh : 1.3mg/ dL CREAT ININE , BLOOD 1.15 0.70 - 1.30 mg/dL 10/16 6:47 AM CDT [facility] Not Available Not Available 12/03/2024 11:57:27 10/17/19 25 10/16/2024 Basic metab olic 1999 panel - Serum or Plasm a urea nitrogen/cre atinine [mass ratio] in serum or plasma 21 text: 12 - 20 ratio high BUN/C REATI NINE RATIO 21 (H) 12 - 20 ratio 10/16 6:47 AM CDT [facility] Not Available Not Available 12/03/2024 11:57:27 10/17/19 25 10/16/2024 Basic metab olic 2000 panel - Serum or Plasm a calcium [mass/volume ] in serum or plasma 9 mg/dL low: 8.7mg/ dLhigh : 10.5mg /dL CALCI UM 9.0 8.7 - 10.5 mg/dL 10/16 6:47 AM CDT [facility] Not Available Not Available 12/03/2024 11:57:27 10/17/19 25 10/16/2024 Basic metab olic 2000 panel - Serum or Plasm a glomerular filtration rate [volume rate/area] in serum, plasma or blood by creatinine-b ased formula (CKD-epi 2020)/1.73 sq M low: 60 GFR, ESTIM ATED >60 >=60 10/16 6:47 AM CDT [facility] [employer] [facility] LAB Not Available Not Available 12/03/2024 11:57:27 10/17/19 25 10/16/2024 Basic metab olic 2000 panel - Serum or Plasm a glomerular filtration rate [volume rate/area] in serum, plasma or blood by creatinine-b ased formula (MDRD)/1.73 sq M among black population low: 60 GFR, EST. AFRIC AN >60 >=60 10/16 6:47 AM CDT [facility] [employer] [facility] LAB Not Available Not Available 12/03/2024 11:57:27 10/17/19 25 10/16/2024 Basic metab olic 2000 panel - Serum or Plasm a glomerular filtration rate [volume rate/area] in serum, plasma or blood by creatinine-b ased formula (MDRD)/1.73 sq M among non black population low: 60 GFR, EST. NONAF RICAN >60 >=60 10/16 6:47 AM CDT [facility] Not Available Not [...] g/dL 10/16 3:06 AM CDT [facility] Not Available Not Available 12/03/2024 11:57:27 10/17/19 25 10/16/2024 CBC W Auto Diffe renti al panel - Blood hematocrit [volume fraction] of blood by automated count 42.9 % low: 38%hig h: 50% HEMAT OCRIT (HCT) 42.9 38.0 - 50.0 % 10/16 3:06 AM CDT [facility] Not Available Not Available 12/03/2024 11:57:27 10/17/19 25 10/16/2024 CBC W Auto Diffe renti al panel - Blood MCV [entitic mean volume] in red blood cells by automated count 87.6 fL low: 82fLhi gh: 96fL MCV 87.6 82.0 - 96.0 fL 10/16 3:06 AM CDT [facility] Not Available Not Available 12/03/2024 11:57:27 10/17/19 25 10/16/2024 CBC W Auto Diffe renti al panel - Blood MCH [entitic mass] by automated count 29.2 pg low: 26pghi gh: 32pg MCH 29.2 26.0 - 32.0 pg 10/16 3:06 AM CDT [facility] Not Available Not Available 12/03/2024 11:57:27 10/17/19 25 10/16/2024 CBC W Auto Diffe renti al panel - Blood MCHC [entitic mass/volume] in red blood cells by automated count 33.3 g/dL low: 31g/dL high: 36g/dL MCHC 33.3 31.0 - 36.0 g/dL 10/16 3:06 AM CDT [facility] Not Available Not Available 12/03/2024 11:57:27 10/17/19 25 10/16/2024 CBC W Auto Diffe renti al panel - Blood platelets [#/volume] in blood 315 text: 140 - 440 10(3)/ mcL PLATE LET COUNT 315 140 - 440 10(3) /mcL 10/16 3:06 AM CDT [facility] Not Available Not Available 12/03/2024 [...] 12.6 fL 10/16 3:[address] Not Available Not Available 12/03/2024 11:57:27 10/17/19 25 10/16/2024 CBC W Auto Diffe renti al panel - Blood neutrophils/ leukocytes in blood by automated count 87.6 % low: 40%hig h: 68% high NEUTR OPHIL S 87.6 (H) 40.0 - 68.0 % 10/16 3:[address] [facility] Not Available Not Available 12/03/2024 11:57:27 10/17/19 25 10/16/2024 CBC W Auto Diffe renti al panel - Blood lymphocytes/ leukocytes in blood by automated count 9.3 % low: 19%hig h: 49% low LYMPH OCYTE S 9.3 (L) 19.0 - 49.0 % 10/16 3:[address] Not Available Not Available 12/03/2024 11:57:27 10/17/19 25 10/16/2024 CBC W Auto Diffe renti al panel - Blood monocytes/le ukocytes in blood by automated count 2.7 % low: 3%high : 13% low MONOC YTES 2.7 (L) 3.0 - 13.0 % 10/16 3:[address] [facility] Not Available Not Available 12/03/2024 11:57:27 10/17/19 25 10/16/2024 CBC W Auto Diffe renti al panel - Blood eosinophils/ leukocytes in blood by automated count 0 % low: 0%high : 8% EOSIN OPHIL S 0.0 0.0 - 8.0 % 10/16 3:06 AM CDT [facility] Not Available Not Available 12/03/2024 11:57:27 10/17/19 25 10/16/2024 CBC W Auto Diffe renti al panel - Blood basophils/le ukocytes in blood by automated count 0.4 % low: 0%high : 1% BASOP HILS 0.4 0.0 - 1.0 % 10/16 3:06 AM CDT [facility] Not Available Not Available 12/03/2024 11:57:27 10/17/19 25 10/16/2024 CBC W Auto Diffe renti al panel - Blood neutrophils [#/volume] in blood by automated count 13.16 text: 1.40 - 5.30 10(3)/ mcL high ABSOL TANGIRNAQ NEUTR OPHIL S 13.16 (H) 1.40 - 5.30 10(3) /mcL 10/16 3:06 AM CDT [facility] Not Available Not Available 12/03/2024 11:57:27 10/17/19 25 10/16/2024 CBC W Auto Diffe renti al panel - Blood lymphocytes [#/volume] in blood by automated count 1.39 text: 0.90 - 3.30 10(3)/ mcL ABSOL TANGIRNAQ LYMPH OCYTE S 1.39 0.90 - 3.30 10(3) /mcL 10/16 3:06 AM CDT [facility] Not Available Not Available 12/03/2024 11:57:27 10/17/19 25 10/16/2024 CBC W Auto Diffe renti al panel - Blood monocytes [#/volume] in blood by automated count 0.41 text: 0.10 - 0.90 10(3)/ mcL ABSOL TANGIRNAQ MONOC YTES 0.41 0.10 - 0.90 10(3) /mcL 10/16 3:06 AM CDT [facility] Not Available Not Available 12/03/2024 11:57:27 10/17/19 25 10/16/2024 CBC W Auto Diffe renti al panel - Blood eosinophils [#/volume] in blood by automated count 0 text: 0.00 - 0.50 10(3)/ mcL ABSOL TANGIRNAQ EOSIN OPHIL 0.00 0.00 - 0.50 10(3) /mcL 10/16 3:06 AM CDT [facility] Not Available Not Available 12/03/2024 11:57:27 10/17/19 25 10/16/2024 CBC W Auto Diffe renti al panel - Blood basophils [#/volume] in blood by automated count 0.06 text: 0.00 - 0.10 10(3)/ mcL ABSOL TANGIRNAQ BASOP HILS 0.06 0.00 - 0.10 10(3) [...] 3:04 AM CDT [facility] Not Available Not Available 12/03/2024 11:57:27 10/17/19 25 10/16/2024 Gas panel - Venou s blood bicarbonate [moles/volum e] in blood 16.7 mmol/ L low: 22mmol /Lhigh : 26mmol /L low BICAR BONAT E 16.7 (L) 22.0 - 26.0 mmol/ L 10/16 3:[address] Not Available Not [...] 3:04 AM CDT [facility] Not Available Not Available 12/03/2024 11:57:27 10/17/19 25 10/16/2024 Gas panel - Venou s blood methemoglobi n/hemoglobin .total in blood 0.7 % low: 0%high : 1.5% METHE MOGLO BIN 0.7 0.0 - 1.5 % 10/16 3:04 AM CDT [facility] Not Available Not [...] 78 U/L 10/16 3:36 AM CDT [facility] LAB Not Available [...] <10 <10 mg/dL 10/16 3:36 AM CDT [facility] Not Available Not Available 12/03/2024 11:57:27 10/17/19 25 10/16/2024 Paresh ol [Mass /volu me] in Serum or Plasm a interpretati on and review of laboratory results Normal Not Available Not Available 11/19 11:57:27 10/17/19 25 10/16/2024 Compr ehens eyn metab olic 2000 panel - Serum or Plasm a sodium [moles/volum e] in serum or plasma 141 mmol/ L low: 136mmo l/Lhig h: 145mmo l/L SODIU M 141 136 - 145 mmol/ L 03/28 /2025 3:36 AM CDT [facility] Not Available Not Available 12/03/2024 11:57:27 10/17/19 25 10/16/2024 Compr ehens yen metab olic 1999 panel - Serum or Plasm a potassium [moles/volum e] in serum or plasma 4.2 mmol/ L low: 3.5mmo l/Lhig h: 5.1mmo l/L POTAS SIUM 4.2 3.5 - 5.1 mmol/ L 10/16 3:36 AM CDT [facility] Not Available Not Available 12/03/2024 11:57:27 10/17/19 25 10/16/2024 Compr ehens yen metab olic 1999 panel - Serum or Plasm a chloride [moles/volum e] in serum or plasma 107 mmol/ L low: 98mmol /Lhigh : 107mmo l/L CHLOR JULIENNE 107 98 - 107 mmol/ L 10/16 3:36 AM CDT [facility] Not Available Not Available 12/03/2024 11:57:27 10/17/19 25 10/16/2024 Compr ehens yen metab olic 1999 panel - Serum or Plasm a carbon dioxide, total [moles/volum e] in serum or plasma 15 mmol/ L low: 22mmol /Lhigh : 30mmol /L low CO2, VENOU S 15 (L) 22 - 30 mmol/ L 10/16 3:36 AM [facility] Not Available Not Available 12/03/2024 11:57:27 10/17/19 25 10/16/2024 Compr ehens yen metab olic 1999 panel - Serum or Plasm a anion gap in serum or plasma by calculation 23.2 mmol/ L high: 18mmol /L high ANION GAP 23.2 (H) <18.0 mmol/ L 10/16 3:36 AM CDT [facility] Not Available Not Available 12/03/2024 11:57:27 10/17/19 25 10/16/2024 Compr ehens yen metab olic 1999 panel - Serum or Plasm a glucose [mass/volume ] in serum or plasma 256 mg/dL low: 70mg/d Lhigh: 99mg/d L high GLUCO SE 256 (H) 70 - 99 mg/dL 10/16 3:36 AM CDT [facility] Not Available Not Available 12/03/2024 11:57:27 10/17/19 25 10/16/2024 Compr ehens yen metab olic 1999 panel - Serum or Plasm a urea nitrogen [mass/volume ] in serum or plasma 23 mg/dL low: 9mg/dL high: 21mg/d L high BUN 23 (H) 9 - 21 mg/dL 10/16 3:36 AM CDT [facility] Not Available Not Available 12/03/2024 11:57:27 10/17/19 25 10/16/2024 Compr Zuujitens yne metab olic 1999 panel - Serum or Plasm a creatinine [mass/volume ] in serum or plasma 1.21 mg/dL low: 0.7mg/ dLhigh : 1.3mg/ dL CREAT ININE , BLOOD 1.21 0.70 - 1.30 mg/dL 10/16 3:36 AM CDT [facility] Not Available Not Available 12/03/2024 11:57:27 10/17/19 25 10/16/2024 Compr Zuujitens yen metab olic 1999 panel - Serum or Plasm a urea nitrogen/cre atinine [mass ratio] in serum or plasma 19 text: 12 - 20 ratio BUN/C REATI NINE RATIO 19 12 - 20 ratio 10/16 3:36 AM CDT [facility] Not Available Not Available 12/03/2024 11:57:27 10/17/19 25 10/16/2024 Compr Zuujitens yen metab olic 1999 panel - Serum or Plasm a protein [mass/volume ] in serum or plasma 7.9 g/dL low: 6g/dLh igh: 8g/dL TOTAL PROTE IN 7.9 6.0 - 8.0 g/dL 10/16 3:36 AM CDT [facility] Not Available Not Available 12/03/2024 11:57:27 10/17/19 25 10/16/2024 Compr ehens yen metab olic 1999 panel - Serum or Plasm a albumin [mass/volume ] in serum or plasma 4.7 g/dL low: 3.5g/d Lhigh: 5g/dL ALBUM IN 4.7 3.5 - 5.0 g/dL 10/16 3:36 AM CDT [facility] Not Available Not Available 12/03/2024 11:57:27 10/17/19 25 10/16/2024 Compr ehens yen metab olic 2000 panel - Serum or Plasm a albumin/glob ulin [mass ratio] in serum or plasma 1.5 low: 1high: 2.2 A/G RATIO 1.5 1.0 - 2.2 10/16 3:36 AM CDT [facility] R LAB Not Available Not Available 12/03/2024 11:57:27 10/17/19 25 10/16/2024 Compr ehens yen metab olic 1999 panel - Serum or Plasm a calcium [mass/volume ] in serum or plasma 9.2 mg/dL low: 8.7mg/ dLhigh : 10.5mg /dL CALCI UM 9.2 8.7 - 10.5 mg/dL 10/16 3:36 AM CDT [facility] Not Available Not Available 12/03/2024 11:57:27 10/17/19 25 10/16/2024 Compr ehens yen metab olic 1999 panel - Serum or Plasm a bilirubin.to su [mass/volume ] in serum or plasma 0.7 mg/dL low: 0.2mg/ dLhigh : 1.2mg/ dL T BILI 0.7 0.2 - 1.2 mg/dL 10/16 3:36 AM CDT [facility] Not Available Not Available 12/03/2024 11:57:27 10/17/19 25 10/16/2024 Compr ehens yen metab olic 2000 panel - Serum or Plasm a aspartate aminotransfe rase [enzymatic activity/vol ume] in serum or plasma 28 U/L high: 43U/L SGOT (AST) 28 <43 U/L 10/16 3:36 AM CDT [facility] Not Available Not Available 12/03/2024 11:57:27 10/17/19 25 10/16/2024 Compr ehens yen metab olic 1999 panel - Serum or Plasm a alanine aminotransfe rase [enzymatic activity/vol ume] in serum or plasma 17 U/L high: 56U/L SGPT (ALT) 17 <56 U/L 10/16 3:36 AM CDT [facility] Not Available Not Available 12/03/2024 11:57:27 10/17/19 25 10/16/2024 Compr ehens yen metab olic 1999 panel - Serum or Plasm a alkaline phosphatase [enzymatic activity/vol ume] in serum or plasma 78 U/L low: 40U/Lh igh: 150U/L ALKAL INE PHOSP HATAS E 78 40 - 150 U/L 10/16 3:36 AM CDT [facility] Not Available Not Available 12/03/2024 11:57:27 10/17/19 25 10/16/2024 Compr ehens yen metab olic 2000 panel - Serum or Plasm a glomerular filtration rate [volume rate/area] in serum, plasma or blood by creatinine-b ased formula (CKD-epi 2020)/1.73 sq M low: 60 GFR, ESTIM ATED >60 >=60 10/16 3:36 AM CDT [facility] [employer] R LAB Not Available Not Available 12/03/2024 11:57:27 10/17/1910/16/2024 Compr ehens yen metab olic 2000 panel - Serum or Plasm a glomerular filtration rate [volume rate/area] in serum, plasma or blood by creatinine-b ased formula (MDRD)/1.73 sq M among black population low: 60 GFR, EST. AFRIC AN >60 >=60 10/16 3:36 AM CDT [facility] LAB Not Available Not Available 12/03/2024 11:57:27 10/17/19 25 10/16/2024 Compr ehens yen metab olic 2000 panel - Serum or Plasm a glomerular filtration rate [volume rate/area] in serum, plasma or blood by creatinine-b ased formula (MDRD)/1.73 sq M among non black population low: 60 GFR, EST. NONAF RICAN >60 >=60 10/16 3:36 AM CDT [facility] Not Available Not Available [...] Not Available 01/06/2025 04:45:54 12/25/19 25 12/24/2024 [facility] [employer] yen Famigo olic 1999 panel - Serum or Plasm [...] Not Available 01/06/2025 04:45:54 12/25/19 25 12/24/[facility]24 [facility] - Serum or Plasm a carbon dioxide, total [moles/volum e] in serum or plasma 21 mmol/ L low: 22mmol /Lhigh : 30mmol /L low Not Available Not Available 01/06/2025 04:45:54 12/25/19 25 12/24/2024 [facility] 1999 panel - Serum or Plasm a anion gap in serum or plasma by calculation 20.8 mmol/ L high: 18mmol /L high Not Available Not Available 01/06/2025 04:45:54 12/25/19 25 12/24/2024 [facility] 1999 panel - Serum or Plasm a glucose [mass/volume ] in serum or plasma 204 mg/dL low: 70mg/d Lhigh: 99mg/d L high Not Available Not Available 01/06/2025 04:45:54 12/25/19 25 12/24/2024 [facility] [employer] yen Famigo olic 1999 panel - Serum or Plasm a urea nitrogen [mass/volume ] in serum or plasma 27 mg/dL low: 9mg/dL high: 21mg/d L high Not Available Not Available 01/06/2025 04:45:54 12/25/19 25 12/24/2024 [facility] [employer] yen Famigo olic 1999 panel - Serum or Plasm a creatinine [mass/volume ] in serum or plasma 1.31 mg/dL low: 0.7mg/ dLhigh : 1.3mg/ dL high Not Available Not Available 01/06/2025 04:45:54 12/25/19 25 12/24/2024 [facility] [employer] yen [facility] 1999 panel - Serum or Plasm a urea nitrogen/cre atinine [mass ratio] in serum or plasma 21 text: 12 - 20 ratio high Not Available Not Available 01/06/2025 04:45:54 12/25/19 25 12/24/2024 [facility] [employer] yen [facility]am[facility] 1999 panel - Serum or Plasm a protein [mass/volume ] in serum or plasma 8.4 g/dL low: 6g/dLh igh: 8g/dL high Not Available Not Available 01/06/2025 04:45:54 12/25/19 25 12/24/2024 [facility] [employer] yen Fam[facility] 1999 panel - Serum or Plasm a albumin [mass/volume ] in serum or plasma 5.1 g/dL low: 3.5g/d Lhigh: 5g/dL high Not Available Not Available 01/06/2025 04:45:54 12/25/19 25 12/24/2024 [facility] [employer] yen [facility]am[facility] 1999 panel - Serum or Plasm a albumin/glob ulin [mass ratio] in serum or plasma 1.5 low: 1high: 2.2 Not Available Not Available 01/06/2025 04:45:54 12/25/19 25 12/24/2024 [facility] [employer] yen [facility]am[facility] 2000 panel - Serum or Plasm a calcium [mass/volume ] in serum or plasma 9.7 mg/dL low: 8.7mg/ dLhigh : 10.5mg /dL Not Available Not Available 01/06/2025 04:45:54 12/25/19 25 12/24/2024 [facility] [employer] yen [facility]amigo [facility] 1999 panel - Serum or Plasm a bilirubin.to us [mass/volume ] in serum or plasma 1.1 mg/dL low: 0.2mg/ dLhigh : 1.2mg/ dL Not Available Not Available 01/06/2025 04:45:54 12/25/19 25 12/24/2024 [facility] [employer] yen [facility] 2000 panel - Serum or Plasm a [...] XR, chest No observ ation record ed. [place] [address] [place], [address], 09/18/2024 10:37:26 10/16/19 25 10/15/2024 XR, chest No observ ation record ed. [address], [address], 10/16/2024 09:14:36 10/17/19 25 10/16/2024 CT, abdom en + pelvi s, w/ contr ast No observ ation record ed. [facility] [address] [place], [address], 10/16/2024 15:52:49 Result Notes None recorded. Problems Name Problem SNOMED Code Status Onset Date Resolution Date Notes Provider Name and Address Organization Details Recorded Time Pneumonia 180933702 Active 2017 KAUR Cohen [place] - [facility] 0 11:54:45 Dehydration 69372487 Active 2017 KAUR Contreras, [place] - [facility] 1 14:33:10 Mixed hypercholester olemia and hypertriglycer idemia 495246324 Active 2017 KAUR [place], [place] - S[facility] 0 11:54:46 Type 1 diabetes mellitus 37588403 Active 2017 KAUR [place] - [facility] 0 11:54:45 Diabetic ketoacidosis without coma 440684784 Active 2017 Jeaneth Hamm KAUR [place], [place] [...] medicatio n confusion moderate Not available 01/06/2025 39258 9 RxNorm Ruth Ann GramajoKAUR [place], [place] - S[facility] 5 14:50:39 51478 strawberr y allergeni c extract food rash moderate Not available 03/23/2015 87492 4 RxNorm KAUR [place], [place] - SI [...] completed Not Available Not Available Not Available [employer] Ultra Test strips CHECK BLOOD SUGAR 3 [...] Available Not Available Not Available Dexcom G6 Protection Agent USE TO CHECK GLUCOSE FOUR TIMES DAILY [...] Updated DateTime 5 170.18 cm 26.3 kg/m2 58275.5 2 g 98 % 98 % 92 /min 16 /min 128/78 mm[Hg] Ruth Ann Gramajo MA [facility] SI 5 11:53:39 Date Recorded Body height Body mass index (BMI) Body weight Respiratory rate Oxygen saturation Oxygen saturation in Arterial blood by Pulse oximetry Heart rate Systolic And Diastolic Provider Name and Address Organization Details Last Updated DateTime 3 170.18 cm 22.7 kg/m2 03648.6 1 g 16 /min 97 % 97 % 95 /min 105/9 mm[Hg] Mary Melendez MA [facility] 3 14:24:52 Date Recorded Body height Body mass index (BMI) Body weight Oxygen saturation Oxygen saturation in Arterial blood by Pulse oximetry Heart rate Respiratory rate Systolic And Diastolic Provider Name and Address Organization Details Last Updated DateTime 5 170.18 cm 23.6 kg/m2 15580.7 3 g 97 % 97 % 74 /min 18 /min 121/73 mm[Hg] Ruth Ann Gramajo MA [facility] SI 5 14:55:53 Date Recorded Body height Body mass index (BMI) Body weight Oxygen saturation Oxygen saturation in Arterial blood by Pulse oximetry Heart rate Respiratory rate Systolic And Diastolic Provider Name and Address Organization Details Last Updated DateTime 3 170.18 cm 23.1 kg/m2 22788.1 8 g 99 % 99 % 97 /min 16 /min 129/65 mm[Hg] Bella Bedoya MA [facility] SI 3 15:15:42 Date Recorded Body height Body mass index (BMI) Body weight Body temperature Oxygen saturation Oxygen saturation in Arterial blood by Pulse oximetry Heart rate Systolic And Diastolic Provider Name and Address Organization Details Last Updated DateTime 2 170.18 cm 24.3 kg/m2 64021.8 2 g 97.3 [degF] 99 % 99 % 90 /min 138/84 mm[Hg] Telma david [place] - SI 11:31:36 Social History Question Answer Notes LastModified by Organizat ion Details LastModified Time Tobacco Smoking Status Never Smoker Telma Wade MA null, [place] - SIF 05/30/2022 11:32:23 Animal Exposure? Yes [email or web address] Informat ion not available 03/23/2015 Are You [...] Any Guns Present In Your Home? Yes [email or web address] Information not available 03/23/2015 What Is Your Home Situation? Relatives Lives With Maternal Grandparents [email or web address] Information not available 05/09/2016 Do You Use Insect Repellent Routinely? Yes [email or web address] Information not available 03/23/2015 Live Alone Or With Others? With Others Information not available 05/06/2020 What Was The Date Of Your Most Recent Tobacco Screening? 01/06/2025 Information not available 01/06/2025 What Is Your Parents' Marital Status? Unmarried [email or web address] Information not available 03/23/2015 Pool Exposure No [email or web address] Information not available 03/23/2015 What Is Your Relationship Status? Single Information not available 09/21/2020 Do You Use Your Seat Belt Or Car Seat Routinely? Yes Sometimes Information not available 10/31/2020 Do You Have Any Siblings? 7 Half Sisters 1 Half Brother [email or web address] Information not available 03/23/2015 Do You Have Smoke And Carbon Monoxide Detectors In Your Home? Yes [email or web address] Information not available 03/23/2015 Are You Passively Exposed To Smoke? Yes Information not available 03/23/2015 How Much Tobacco Do You Smoke? No Information not available 08/04/2019 What Types Of Sporting Activities Do You Participate In? Golf [email or web address] Information not available 03/23/2015 General Stress Level Low Information not available 05/06/2020 Do You Use Sunscreen Routinely? Yes [email or web address] Information not available 03/23/2015 Has Tobacco Cessation Counseling Been Provided? No Information not available 10/31/2020 On What Date Was Tobacco Cessation Counseling Provided? 01/06/2025 Information not available 01/06/2025 Year In School 10 Informatio n not available 05/09/2016 Sex: Male [...] 05/30/2022 What is your exercise level? Moderate [email or web address] Information not available 03/23/2015 Mental Status Question Answer Note LastModified by Organizat ion Details LastModified Time Do you feel stressed (tense, restless, nervous, or anxious, or unable to sleep at night)? [id number] restless Information not available 05/30/2022 Are you or have you been involved with bullying? No [email or web address] Information not available 03/23/2015 Family History Nothing [...] N Anemia N Constipation N Heart Attack (NV) N Diabetes Y Bedwetting N Seizures/Epilepsy N Heart Problems/Murmur N Allergies N Asthma N Substance Abuse N Hepatitis N Osteoporosis N Heart Failure N Chicken Pox N Autism Spectrum Disorder (ASD) N Immunizations Vaccine Type Date Status Note Provider Nam e and Address Organization Details Recorded Time Meningococcal MCV4O 6 completed Not Available [facility] 08/08/2019 02:32:35 HPV9 6 completed Not Available [facility] 08/08/2019 02:42:35 Influenza, split virus, quadrivalent, PF 6 completed Not Available [facility] 08/08/2019 02:32:34 Hib, unspecified formulation 2 completed Not Available [facility] 01/06/2025 14:43:16 Hep A, pediatric, unspecified formulation 0 completed Not Available [facility] 01/06/2025 14:43:16 Hep B, adolescent or pediatric 0 completed Not Available [facility] 05/07/2023 15:37:51 Hep B, adolescent or pediatric 0 completed Not Available [facility] 05/07/2023 15:37:51 Hep B, adolescent or pediatric 0 completed Not Available [facility] 05/07/2023 15:37:51 DTaP 4 completed Not Available [facility] 05/07/2023 15:37:51 DTaP 0 completed Not Available [facility] 05/07/2023 15:37:51 DTaP 2 completed Not Available [facility] 05/07/2023 15:37:51 DTaP 0 completed Not Available [facility] 05/07/2023 15:37:51 DTaP 0 completed Not Available [facility] 05/07/2023 15:37:51 Hib, unspecified formulation 0 completed Not Available [facility] 05/07/2023 15:37:51 Hib, unspecified formulation 4 completed Not Available [facility] 05/07/2023 15:37:51 Hib, unspecified formulation 0 completed Not Available [facility] 05/07/2023 15:37:51 Hib, unspecified formulation 0 completed Not Available [facility] 05/07/2023 15:37:51 IPV 0 completed Not Available [facility] 05/07/2023 15:37:51 IPV 4 completed Not Available [facility] 05/07/2023 15:37:51 IPV 0 completed Not Available [facility] 05/07/2023 15:37:51 IPV 0 completed Not Available [facility] 05/07/2023 15:37:51 pneumococcal conjugate PCV 7 1 completed Not Available [facility] 05/07/2023 15:37:51 MMR 4 completed Not Available [facility] 05/07/2023 15:37:51 MMR 2 completed Not Available [facility] 05/07/2023 15:37:51 varicella 0 completed Not Available [facility] 05/07/2023 15:37:51 varicella 2 completed Not Available [facility] 05/07/2023 15:37:51 influenza, unspecified formulation 2 completed Not Available [facility] 05/07/2023 15:37:51 influenza, unspecified formulation 0 completed Not Available [facility] 05/07/2023 15:37:51 influenza, unspecified formulation 4 completed Not Available [facility] 05/07/2023 15:37:51 meningococcal MCV4, unspecified formulation 2 completed Not Available [facility] 05/07/2023 15:37:51 Tdap 0 completed Not Available [facility] 05/07/2023 15:37:51 Hep A, ped/adol, 2 dose 6 completed Not Available [facility] 05/07/2023 15:37:51 Hep A, ped/adol, 2 dose 5 completed Not Available [facility] 05/07/2023 15:37:51 HPV, quadrivalent 4 completed Not Available [facility] 05/07/2023 15:37:51 HPV9 5 completed Not Available [facility] 08/08/2019 02:46:07 Past Encounters Encounter ID Performer Location Encounter Start Date Encounter Closed Date Diagnosis/Indication Diagnosis SNOMED-CT Code Diagnosis ICD10 Code Diagnosis Note [id number] MD María Mendez (Peds) [address] [place] [address] 03/23/2015 11:08:16 03/23/2015 12:29:38 Well child 859191293 Routine adolescent care discussed safety and school performanc e discussed healthy weight with diet and exercise Type 1 ignacio betes mellitus 02463948 Routine f/u with endocrinol ogy. Daily BS monitoring . [id number] MD María Mendez (Peds) [address] [place] [address] 05/09/2016 15:46:21 05/09/2016 17:18:51 Well child 049368598 Z00.129 Routine adolescent care discussed safety and school performanc e discussed healthy weight with diet and exercise Type 1 ignacio betes mellitus 66651391 E10.8 Routine f/u with endocrinol ogy. Daily BS monitoring . [id number] SACHIN Mendez [address] [place] [address] 03/18/2019 11:43:52 03/18/2019 12:43:28 Type 1 diabetes mellitus 65420547 E10.9 [id number] SACHIN Mendez [address] [place] [address] 06/09/2019 17:42:26 06/09/2019 18:58:04 Uncontrolled type 1 diabetes mellitus 702985776 E10.65 [id number] Prashanth Saldana PA-C [facility] [address] [place] [address] 08/04/2019 15:54:01 08/04/2019 17:37:44 Low back pain 652975671 M54.5 Backache w ith radiating pain 556301044 M54.04 [id number] Prashanth Saldana PA-C [facility] [address] [place] [address] 11/20/2019 09:29:53 11/20/2019 19:46:46 [id number] Juan Pemberton MD [facility] [address] [place] [address] 05/06/2020 09:37:24 05/06/2020 12:43:22 Type 1 diabetes mellitus 29583703 E10.9 Secondary erectile dysfunction 896006803 N52.8 Mixed hypercholesterolemia and hypertriglyceridemia 107878408 E78.2 [id number] Juan Pemberton MD [facility] [address] [place] [address] 08/02/2020 10:24:01 08/03/2020 08:12:05 Uncontrolled type 1 diabetes mellitus 226307831 E10.65 [id number] Prashanth Saldana PA-C [facility] [address] [place] [address] 09/21/2020 10:21:28 09/22/2020 15:52:19 Paresthesia of lower extremity 200041496 R20.2 Gastroesop hageal reflux disease without esophagitis 413143142 K21.9 Low back pain 983962772 M54.5 Gynecomastia 5755681 N62 [id number] Juan Pemberton MD [facility] [address] [place] [address] 10/31/2020 14:28:27 11/01/2020 09:28:09 Type 1 diabetes mellitus 39767972 E10.9 Mixed hypercholesterolemia and hypertriglyceridemia 113708927 E78.2 Gastro-eso phageal reflux disease with esophagitis 749247130 K21.00 Viral gastroenteritis 11 3725079 A08.19 [id number] Juan Pemberton MD [facility] [address] [place] [address] 01/10/2021 16:45:57 01/18/2021 07:34:35 [id number] Prashanth Saldana PA-C [facility] [address] [place] [address] 05/09/2021 10:30:53 05/09/2021 11:54:35 Type 1 diabetes mellitus without complication 794235864 E10.9 [id number] Prashanth Saldana PA-C [facility] [address] [place] [address] 06/07/2021 16:49:31 06/07/2021 16:56:56 Nausea and vomiting 75958570 R11.2 Javier ordered Diphenhydr amine, was administer ed and pt was advised if didn't help to go to ER, voiced understand ing [id number] Juan Pemberton MD [facility] [address] [place] [address] 11/13/2021 14:35:16 11/13/2021 15:33:50 Type 1 diabetes mellitus 27113776 E10.9 Body mass index 20-24 - normal 889299010 Z68.23 Plantar fasciitis 193142 003 M72.2 [id number] Prashanth Saldana PA-C [facility] [address] [place] [address] 05/30/2022 11:23:14 05/30/2022 12:00:41 Type 1 diabetes mellitus 62504170 E10.9 Diabetic p eripheral neuropathy 063443883 E11.40 Anxiety 77273683 F41.9 Gastroesop hageal reflux disease without esophagitis 180520400 K21.9 Nausea and vomiting 1692 1999 R11.2 Javier ordered Diphenhydr amine, was administer ed and pt was advised if didn't help to go to ER, voiced understand ing Gastropare sis due to type 1 diabetes mellitus 356342562 E10.43 [id number] Prashanth Saldana PA-C [facility] [address] [place] [address] 12/18/2022 14:17:54 12/19/2022 14:24:56 Type 1 diabetes mellitus 71771229 E10.9 Persistent insomnia 1919 72585 G47.09 Mixed anxi ety and depressive disorder 243405028 F41.8 Overweight 411020419 E66 .3 [id number] Prashanth Saldana PA-C [facility] [address] [place] [address] 04/16/2023 15:00:29 04/17/2023 14:26:08 Type 1 diabetes mellitus 26524212 E10.9 Marijuana user 909115298 F12.10 Overweight 201831591 E66 .3 [id number] Juan Pemberton MD [facility] [address] [place] [address] 09/03/2024 11:45:12 09/07/2024 14:32:03 Mixed hypercholesterolemia and hypertriglyceridemia 621299421 E78.2 Type 1 ignacio betes mellitus 53529005 E10.9 Body mass index 20-24 - normal 978113665 Z68.23 [id number] Juan Pemberton MD [facility] [address] [place] [address] 01/06/2025 14:41:12 01/08/2025 08:55:40 Type 1 diabetes mellitus 19836540 E10.69 Body mass index 20-24 - normal 798225098 Z68.23 Health Concerns Section Related Observation LastModified by Organization Detai ls LastModified Time None Recorded Concern Status LastModified by Organization Details LastModified Time None Recorded Advance Directives Directive None Recorded Payers Insurance Date Sequence Insurance Name Policy Number Policy Blankenship Covered Member ID Blankenship Member ID Guarantor Name 01/03/2025 1 [facility] (MEDICAID HMO) [id number] Peter Shore [id number] Peter Shore 04/15/2024 1 [place] [facility] Peter Shore [id number] Peter Shore 04/15/2024 1 [facility] (MEDICAID HMO) [id number] Peter Shore [id number] Peter Shore Notes Date Note Type Note Provider Name and Address Organization Details Recorded Time 05/30/2022 text/html hx of type 1...frequent crashes...hx of gastroparesis...gibson s pain and acidic belching..sugar currently 134...hasnt taken his GERD meds yet... Prashanth Saldana PA-C Attn: Accounting[address] [place], [address], [facility] [place] 05/30/2022 11:57:53 12/18/2022 text/html says he cannot sleep...watches movies all night...says his stress levels are high...GERD is present....still smokes a lot of weed...says he gets bored and everybody stresses him out without weed Prashanth Saldana PA-C Attn: [address] [place], [address], [facility] [place] 12/18/2022 14:47:31 04/16/2023 text/html smoked weed.. to ok a nap ..came in and appears stoned.. (when asked about weed grandmother said no and patient said yes)...reports that he has an upcoming appt with endo in april Prashanth Saldana PA-C Attn: [address] [place], [address], [facility] [place] 04/16/2023 15:47:33 09/03/2024 text/html annual check up...says he quit etoh...says he is living healthier..has gained weight...says blood sugars are better...Nay Hamm [facility] 09/03/2024 12:18:11 01/06/2025 text/html has a new GI doctor vs diabetic gastroparesis... Prashanth Saldana PA-C Attn: Accounting[address] [place], [address], [facility] [place] 01/06/2025 15:19:28
--- OUTSIDE RECORDS SUMMARY | 2025-02-08 11:04 | XMS_ITS | Referral Summary ---
Author Organization [facility] ospital Address [address] [place] [address] Care Team Providers Care Dashboard Developer Name Role Phone Con Beltrán MD Unavailable [phone] Prashanth Saldana Primary Care Provider [phone] Sidney Russell MD Unavailable [phone] Encounters Date Type Department Care Team Description 01/29/20 25 Telephone [facility] Medical Group Gastroenterology at [address] [place] [phone] Cristin Tejada LPN 01/29/20 25 Telephone [facility] Gastroenterology [address] [place] [address] Medical Office Building [address], [address] [place] [address] Carmen Irving RN IOV scheduling 01/27/20 25 1:30 PM CDT Office Visit [facility] Medical Group Gastroenterology at [address] [place] [phone] Terrence Fitch MD Gastroparesis (Primary Dx); Gastroesophageal reflux disease without esophagitis; Marijuana use 01/27/20 25 10:00 AM CDT Office Visit [facility] Diabetes Endocrine Care at [address] [place] [phone] Nay Alford, REYNA Type 1 diabetes mellitus with hyperglycemia (HCC) (Primary Dx); Hypoglycemia; Mixed hyperlipidemia; Tandem T slim Insulin pump in place; Gastroparesis 01/07/20 25 Telephone [facility] Gastroenterology at [address] [place] [address] Arin Fischer 01/07/20 25 8:00 AM CDT Anesthesia Event [address] [address] Ronaldo Jerome, Vu Kevin CRNA 01/07/20 25 8:00 AM CDT - 01/07/20 25 8:30 AM CDT Surgery [address] [address] Terrence Fitch MD Not Performed ESOPHAGOGASTRODUODENOSCOPY 01/07/20 25 7:27 AM CDT - 01/07/20 8:07 AM CDT Hospital Encounter [address] [address] Terrence Fitch MD Discharge Disposition: Discharge to home or self care 01/02/20 Results Follow-Up [facility] Medical [facility] Gastroenterology at [address] [place] [address] Peetr Rivera NP NM Gastric Emptying Study 12/31/19 25 10:13 AM CDT - 12/31/19 25 11:59 PM CDT Hospital Encounter [address] [address] Discharge Disposition: Discharge to home or self care 12/31/19 25 10:13 AM CDT - 12/31/19 25 11:59 PM CDT Hospital Encounter [address] [address] Discharge Disposition: Discharge to home or self care 12/31/19 25 10:13 AM CDT - 12/31/19 25 11:59 PM CDT Hospital Encounter [address] [address] Discharge Disposition: Discharge to home or self care 12/31/19 25 10:13 AM CDT - 12/31/19 25 11:59 PM CDT Hospital Encounter [address] [address] Discharge Disposition: Discharge to home or self care 12/31/19 10:13 AM CDT - 12/31/19 11:59 PM CDT Hospital Encounter [facility] [address] [place] [address] Nausea and vomiting, unspecified vomiting type; Type 1 diabetes mellitus with hyperglycemia (HCC) Discharge Disposition: Discharge to home or self care 12/26/19 Telephone [facility] Medical Group Gastroenterology at [address] [place] [address] Radhika Cunningham EGD Reschedule 12/22/19 Telephone [facility] Medical Group Gastroenterology at [address] [place] [address] Evelin Fischer MA 12/18/19 Telephone [facility] Medical [facility] Gastroenterology at [address] [place] [address] Cristin Tejada LPN 12/18/19 8:15 AM CDT Office Visit [facility] Medical Group Gastroenterology at [address] [place] [address] Peter Rivera NP Nausea and vomiting, unspecified vomiting type (Primary Dx); Abnormal CT scan, esophagus; Gastroesophageal reflux disease, unspecified whether esophagitis present; Type 1 diabetes mellitus with hyperglycemia (HCC); Tandem T slim Insulin pump in place; Marijuana use; Tobacco use disorder 12/03/19 4:04 AM CDT - 12/03/19 5:56 PM CDT Hospital Encounter [facility] ICU [address] [place] [address] Marcelina Cleaning MD Masetti, Paolo, MD Type 1 diabetes mellitus with ketoacidosis without coma (HCC) (Primary Dx); Gastroparesis; Nausea and vomiting, unspecified vomiting type Discharge Disposition: Left Against Medical Advice 12/01/19 7:54 AM CDT - 12/01/19 2:36 PM CDT Hospital Encounter [facility] ICU [address] [place] [address] Marcelina Cleaning MD Masetti, Paolo, MD Diabetic ketoacidosis without coma associated with type 1 diabetes mellitus (HCC) (Primary Dx); Hyperemesis Discharge Disposition: Left Against Medical Advice from [...] a day before meals E10.65 100 each 023 Active pen needle, diabetic 32 gauge x /32 needle Use to inject insulin daily. E10.65 50 each 023 Active blood glucose diagnostic (everbillTouch Ultra Test) strip CHECK BLOOD SUGAR 3 [...] by mouth daily 025 Active blood-glucose sensor (ShareNotes.com G7 Sensor) device USE DIRECTED, CHANGE EVERY [...] - 8 HOURS NEEDED FOR ABDOMINAL CRAMPING 025 Active ondansetron ODT (ZOFRAN-ODT) 4 mg disintegrating tablet Take 1 tablet (4 mg total) by mouth 025 Active Gvoke HypoPen 2-Pack 1 mg/0.2 mL [...] . Assessment & Plan (07/10/2022 9:22 AM SENIOR C SOFTWARE ENGINEER): This is a chronic condition which is [...] of less than 70. Encouraged to contact [employer] and have a new pump shipped Discussed [...] statin Assessment & Plan (07/10/2022 9:19 AM SENIOR C SOFTWARE ENGINEER): This is a chronic condition which is [...] G6 at home. He was seen in [facility], but missed appointment in the adult diabetes clinic this year Home: lantus 30 units, ICR 1/5,1/8, S: 07/26. I suspect non med compliance. [...] prescribed. Assessment & Plan (08/04/2020 3:50 AM SENIOR C SOFTWARE ENGINEER): H/o pancreatitis attributed to hypertriglyceridemia. TGs 215 on 05/27/20. -Continue home fenofibrate and atorvastatin Resolved Problems Problem Noted Date Diagnosed Date Resolved Date Leukocytosis 04/18/2021 04/04/2022 Gallbladder sludge 04/05/2021 Marijuana abuse 04/05/2021 04/04/2022 JACK (acute kidney injury) (CMS/HCC) 10/25/2020 04/04/2022 Diarrhea 10/25/2020 04/04/2022 Hypokalemia 08/04/2020 04/04/2022 Assessment & Plan (08/04/2020 3:59 AM SENIOR C SOFTWARE ENGINEER): K to 3.2 after hyperglycemia protocol s/p 40 mEq of IV K in ED. -CTM w/ BMP Nausea and vomiting 07/05/2020 04/04/20 22 Assessment & Plan (08/04/2020 4:10 AM SENIOR C SOFTWARE ENGINEER): Patient has chronic N/V, now presenting w/ 3 days of persistent N/V. No abdominal pain. Lipase 15 on presentation. +MJ use. DDx: cyclic vomiting vs. diabetic gastroparesis. -Zofran prn -Pepcid -Can trial Reglan -Encourage MJ cessation Assessment & Plan (07/05/2020 4:24 PM SENIOR C SOFTWARE ENGINEER): Etiology likely DKA. Other considerations are PUD [...] 04/04/2022 Assessment & Plan (07/05/2020 4:26 PM SENIOR C SOFTWARE ENGINEER): Etiology likely DKA. pH is 7.50 (alkalosis) [...] 04/04/2022 Assessment & Plan (08/04/2020 3:41 AM SENIOR C SOFTWARE ENGINEER): Patient multiple past hospitalizations for DKA, most recently in June presenting w/ DKA after 3 days of persistent N/V. BG was 338 w/ AG 18, bicarb 21, ketones 3.2. BG now in the 100s and AG close after hyperglycemia protocol. A1C 10.5 08/02/20. Is a patient of Dr. Swift at [facility] in [place]. Last seen on 07/25 with plan for [...] f/u. Assessment & Plan (07/05/2020 4:21 PM SENIOR C SOFTWARE ENGINEER): DKA (ketones 1.4, BG 242, urine glucose [...] insulin regimen is needed at this time. school vocational educator have talked to Peter and family [...] (CMS/HCC) 04/04/2022 EKG abnormality 04/04/2022 Choledocholithiasis 04/04/20 22 Abdominal pain 04/04/2022 Social History Tobacco Use Types Packs/Day Years Used Date Smoking Tobacco: Every Day Vaping Smokeless Tobacco: Never Tobacco Cessation:Ready to Q uit: Not Asked; Counseling Given: Not Answered Alcohol Use Standard Drinks/Week Comments No 0 (1 standard drink = 0.6 oz pur e alcohol) [facility] Utilities Answer Date Recorded In the past 12 months has th e electric, gas, oil, or water [employer] threatened to shut off services in your [...] week 12/02/2024 How often do you attend [facility] ch or taoism services? Never 12/02/2024 Do you belong to any clubs o r organizations such as pentecostal groups, unions, fraternal or athletic groups, or [...] any time in the past 12 m [facility], were you homeless or living in a senior living (including now)? No 12/02/2024 Personal Safety Answer Date Recorded Have you ever been in or are you currently in a harmful physical or emotional relationship or is someone making you feel afraid or unsafe? Denies 01/06/2025 Sex and Gender Information Value Date Recorded Sex Assigned at Not on file Legal Sex Male 4:12 AM SENIOR C SOFTWARE ENGINEER Gender Identity Not on file Sexual [...] * POCT glucose (01/26/2025 10:04 AM CDT) [facility] Glucose Blood, POC 156 Normal Fasting 70 [...] DEVICE Fin al Result Performing Organization Address City/State/[facility] Co de Phone Number [facility] [place] 1 [facility] Department [place] [address] * NM Gastric Emptying Study [...] Shaquille Contreras M.D. LB: LB Report ID: [id number] Reading Location: [id number] Procedure Note Shaquille Contreras MD - 12/30/2024 [...] Shaquille Contreras M.D. LB: LB Report ID: [id number] Reading Location: [place] [address] [facility] Shu Bilderback WIND OPERATIONS MANAGER IMG NM PROCEDURES F inal Result * Infection Prevention MRSA Only (Staphylococcus aureus) PCR Nasal (12/02/2024 4:48 PM CDT) PCR Scrn, Methicillin resistant Staphylococcus aureus (MRSA) Not Detected Not Detected Comment: Interpretive Data Testing performed using Nucleic Acid Amplification with the Gondola Xpert MRSA NxG Assay. This assay detects target DNA from mecA, mecC and the SCCmec insertion site of Staphylococcus aureus using Real-Time PCR and has been cleared by the FDA. Performance characteristics have been verified by the [facility]. Current Interpretive Data was last revised on 2022 Nasal 12/02/2024 4:48 PM CDT 12/02/2024 4:55 PM CDT Juan Car MD LAB MICROBIOLOGY - GENERAL ORDE RABLES Final Result Performing Organization Address City/[facility]/ZIP Co de Phone Number [facility] ([place]) 1 [facility] [place] [address] * eGFR (12/02/2024 4:43 PM CDT) eGFR [...] Final Resu lt [facility] ([place]) 1 [facility] [place] [place] [address] * (ABNORMAL) Basic metabolic panel (12/02/2024 4:43 PM CDT) Sodium 136 135 - 145 mmol/L Potassium, pl 3.9 3.3 - 4.9 mmol/L [facility] ([place]) Chloride 100 97 - 110 mmol/L [facility] ([place]) CO2 20(L) 22 - 32 mmol/L [facility] ([place]) Anion gap 16(H) 2 - 15 mmol/L [facility] ([place] BUN 12 6 - 25 mg/dL [facility] ([place]) Creatinine 0.87 0.80 - 1.30 mg/dL [facility] ([place]) Glucose 341(H) 70 - 199 mg/dL [facility] ([place]) Comment: Interpretive Data Fasting [...] 2022. Calcium 8.4(L) 8.5 - 10.3 mg/dL [facility] ([place]) Blood 12/02/2024 4:43 PM CDT 12/02/2024 4:55 PM CDT Juan Car MD LAB BLOOD ORDERABLES Final Resu lt [facility] ([place]) 1 [facility] Department [place] [address] * (ABNORMAL) POCT glucose (12/02/2024 4:29 PM CDT) Glucose, POC 309(H) 70 - 199 mg/dL Blood 12/02/2024 4:29 PM CDT 12/02/2024 4:29 PM CDT Juan Car MD LAB POCT ORDERABLES - DEVICE Fi nal Result [facility] ([place]) 1 [facility] [place] [address] * POCT glucose (12/02/2024 12:13 PM CDT) Glucose, POC 156 70 - 199 mg/dL Blood 12/02/2024 12:1 3 PM CDT 12/02/2024 12:13 PM CDT Juan Car MD LAB POCT ORDERABLES - DEVICE Fi nal Result Performing Organization Address [facility]/ZIP Co de Phone Number [facility] ([place]) 1 [facility] [place] [address] * eGFR (12/02/2024 10:25 AM CDT) eGFR [...] BLOOD ORDERABLES Final Resu lt [facility] ([place]) [address] Department [place] [address] * Basic metabolic panel (12/02/2024 10:25 AM CDT) Sodium 143 135 - 145 mmol/L Potassium, pl 3.8 3.3 - 4.9 mmol/L [facility] ([place]) Chloride 106 97 - 110 mmol/L [facility] ([place]) CO2 23 22 - 32 mmol/L [facility] ([place]) Anion gap 14 2 - 15 mmol/L [facility] ([place]) BUN 15 6 - 25 mg/dL [facility] ([place]) Creatinine 0.87 0.80 - 1.30 mg/dL [facility] ([place]) Glucose 92 70 - 199 mg/dL [facility] ([place]) Comment: Interpretive Data Fasting glucose >/= 126 [...] Calcium 8.5 8.5 - 10.3 mg/dL [facility] ([place]) Blood 12/02/2024 10:2 5 AM CDT 12/02/2024 10:32 AM CDT us Juan Car MD LAB BLOOD ORDERABLES Final Resu lt [facility] ([place]) 1 [facility] Department [place] [address] * POCT glucose (12/02/2024 9:11 AM CDT) Glucose, POC 70 70 - 199 mg/dL Blood 12/02/2024 9:11 AM CDT 12/02/2024 9:11 AM CDT Juan Car MD LAB POCT ORDERABLES - DEVICE Fi nal Result [facility] ([place]) 1 [facility] [place] [address] * (ABNORMAL) POCT glucose (12/02/2024 8:55 AM CDT) Glucose, POC 61(L) 70 - 199 mg/dL Blood 12/02/2024 8:55 AM CDT 12/02/2024 8:55 AM CDT Juan Car MD LAB POCT ORDERABLES - DEVICE Fi nal Result Performing Organization Address [facility] Co de Phone Number [facility] ([place]) 1 [facility] [place] [address] * XR Chest 1 Vw Portable (12/02/2024 [...] Shaquille Contreras M.D. LB: ISRAEL Report ID: [id number] Reading Location: [id number] Procedure Note Shaquille Contreras MD - 12/02/2024 [...] Shaquille Contreras M.D. LB: LB Report ID: [id number] Reading Location: [id number] Marcelina Cleaning MD IMG XR PROCEDURES Final R esult * ECG 12 lead (12/02/2024 7:50 AM CDT) 12/02/2024 7:50 AM CDT Narrative [facility] - 12/02/2024 8:36 AM CDT Vent Rate: 90 bpm RR Interval: 665 msec MT Interval: 159 msec QRS Duration: 85 msec QT Interval: 360 msec QTC Interval: 407 msec P-R-T Ferr[place]: 84 - 76 - 76 degrees IMPRESSION: SINUS RHYTHM NONSPECIFIC T-WAVE ABNORMALITY BORDERLINE ECG NO CHANGE FROM PREVIOUS TRACING NOTED Electronically Signed By: Matt Mercado MD Marcelina Cleaning MD ECG ORDERABLES Final Res ult [facility] * (ABNORMAL) Urinalysis reflex to microscopic and [...] tendency for uric acid stone formation. Source: [facility] Current Interpretive Data was last [...] Reflex to microscopic UA will be performed. [facility] ([place]) Urine 12/02/2024 6:07 AM CDT 12/02/2024 6:15 AM CDT Marcelina Cleaning MD LAB MICROBIOLOGY - GENERA L ORDERABLES Final Result [facility] ([place]) 1 [facility] Department [place] [address] * (ABNORMAL) Urinalysis, microscopic only (12/02/2024 6:07 AM CDT) WBC, ur 0-5 0 - 5 /HPF RBC, ur 11-20(A) 0 - 2 /HPF [facility] ([place]) Mucous, ur Present(A) [facility] ([place]) Hyaline casts, ur 1-5 0 - 10 /LPF [facility] ([place]) Culture Reflex Comment Reflex conditions for urine culture (WBC >10) not met. [facility] ([place]) Urine 12/02/2024 6:07 AM CDT 12/02/2024 6:15 AM CDT us Jen Roth MD LAB URINE ORDERABLES Final Resul t Performing Organization Address City/[facility]/ZIP Co de Phone Number [facility] ([place]) 1 [facility] [place] [address] * (ABNORMAL) Blood gas, venous (12/02/2024 6:07 AM CDT) pH, Venous 7.44(H) 7.32 - 7.43 PCO2, Venous 34(L) 40 - 50 mmHg [facility] ([place]) PO2, Venous 86 mmHg [facility] ([place]) HCO3 Venous, Calculated 23 20 - 30 mmol/L [facility] ([place]) BE, venous 0 mmol/L [facility] ([place]) Comment: Interpretive Data No Reference Range Established Current Interpretive Data was last revised on 2017. Blood 12/02/2024 6:07 AM CDT 12/02/2024 6:15 AM CDT Marcelina Cleaning MD LAB BLOOD ORDERABLES Stephie l Result Performing Organization Address City/[facility]/ZIP Co de Phone Number [facility] ([place]) 1 [place] [address] * Influenza A/B, RSV, and COVID-19 PCR Nasopharyngeal (12/02/2024 4:28 AM CDT) COVID-19 RNA Negative Negative Influenza A RNA Negative Negative [facility] ([place]) Influenza B RNA Negative Negative [facility] ([place]) RSV RNA Negative Negative [facility] ([place]) Comment: Interpretive data: Testing performed by [facility]. This test is performed using the Gondola Xpert Xpress CoV-2/Flu/RSV plus assay. This is a multiplex, real- time reverse transcriptase PCR assay intended for the qualitative detection of nucleic acid from SARS-CoV-2, influenza A, influenza B, and respiratory syncytial virus. This assay has been cleared by the [place] Food and Drug administration. The performance characteristics have been verified by the [facility]. Results must be considered in the clinical context, and a negative result does not rule out infection. Interpretive Data last revised 2023 Nasopharyngeal 12/02/2024 4: 28 AM CDT 12/02/2024 4:30 AM CDT Narrative [facility] ([place]) - 12/02/2024 5:15 AM CDT Is the Patient experiencing symptoms consistent with COVID?->Yes us Jen Roth MD LAB MICROBIOLOGY - GENERAL ORDER DENIS Final Result Performing Organization Address City/[facility]/ZIP Co de Phone Number [facility] ([place]) 1 [facility] [place] [address] * eGFR (12/02/2024 3:24 AM CDT) eGFR [...] ORDERABLES Stephie l Result Performing Organization Address City/[facility]/ZIP Co de Phone Number [facility] ([place]) 1 [facility] [place] [address] * (ABNORMAL) Differential, auto (12/02/2024 3:24 AM [...] MD LAB BLOOD ORDERABLES Stephie baez Result [facility] ([place]) 1 [facility] [place] [address] * (ABNORMAL) CBC with auto differential (12/02/2024 [...] MD LAB BLOOD ORDERABLES Stephie baez Result Performing Organization Address City/[facility]/ZIP Co de Phone Number [facility] ([place]) 1 [facility] [place] [address] * Lipase (12/02/2024 3:24 AM CDT) Lipase 12 10 - 99 Units/L Blood Venous blood specimen / Unknown 12/02/2024 3:24 AM CDT 12/02/2024 3:35 AM CDT us Marcelina Cleaning MD LAB BLOOD ORDERABLES Stephie l Result [facility] ([place]) 1 [facility] Department [place] [address] * (ABNORMAL) Comprehensive metabolic panel (12/02/2024 3:24 AM CDT) Sodium 141 135 - 145 mmol/L Potassium, pl 3.9 3.3 - 4.9 mmol/L [facility] ([place]) Chloride 98 97 - 110 mmol/L [facility] ([place]) CO2 22 22 - 32 mmol/L [facility] ([place]) Anion gap 21(H) 2 - 15 mmol/L [facility] ([place]) BUN 17 6 - 25 mg/dL [facility] ([place] Creatinine 0.95 0.80 - 1.30 mg/dL [facility] ([place]) Glucose 121 70 - 199 mg/dL [facility] ([place]) Comment: Interpretive Data [...] ([place]) Albumin 4.8 3.5 - 5.0 g/dL [facility] ([place]) Alk phos 88 40 - 130 Units/L [facility] ([place]) ALT 17 7 - 55 Units/L [facility] ([place]) AST 23 10 - 50 Units/L [facility] ([place]) Comment:Slightly Hemolyzed S pecimen Blood 12/02/2024 3:24 AM CDT 12/02/2024 3:35 AM CDT us Marcelina Cleaning MD LAB BLOOD ORDERABLES Stephie l Result ALYSSA [facility] ([place]) 1 [facility] [place] [address] * POCT glucose (12/02/2024 3:21 AM CDT) Glucose, POC 111 70 - 199 mg/dL Blood 12/02/2024 3:21 AM CDT 12/02/2024 3:21 AM CDT us Notinfile Unknown LAB POCT ORDERABLES - DEVICE F inal Result Performing Organization Address City/[facility]/ZIP Co de Phone Number [facility] ([place]) 1 [facility] [employer] [place] [address] * POCT glucose (11/30/2024 1:58 PM CDT) Glucose, POC 177 70 - 199 mg/dL Blood 11/30/2024 1:58 PM CDT 11/30/2024 1:58 PM CDT us Juan Car MD LAB POCT ORDERABLES - DEVICE Fi nal Result [facility] ([place]) 1 [facility] [place] [address] * Lactate (11/30/2024 12:51 PM CDT) Lactate 0.8 0.7 - 2.0 mmol/L Blood 11/30/2024 12:5 1 PM CDT 11/30/2024 12:57 PM CDT Juan Car MD LAB BLOOD ORDERABLES Final Resu lt Performing Organization Address City/[facility]/ZIP Co de Phone Number [facility] ([place]) 1 [facility] [place] [address] * eGFR (11/30/2024 12:51 PM CDT) eGFR [...] BLOOD ORDERABLES Final Resu lt [facility] ([place]) 1 [facility] [place] [address] * Beta-hydroxybutyrate (11/30/2024 12:51 PM CDT) Beta-Hydroxybut yrate 0.5 <=0.5 mmol/L Comment:Testing performed by : [facility], [address] [place] [address], [place]., [id number] Blood 11/30/2024 12:5 1 PM CDT 11/30/2024 10:37 PM CDT Juan Car MD LAB BLOOD ORDERABLES Final Resu lt [facility] ([place]) 1 [facility] Department [place] [address] * Basic metabolic panel (11/30/2024 12:51 PM [...] BLOOD ORDERABLES Final Resu lt [facility] ([place]) 1 [facility] [place] [address] * POCT glucose (11/30/2024 12:48 PM CDT) Glucose, POC 176 70 - 199 mg/dL Blood 11/30/2024 12:4 8 PM CDT 11/30/2024 12:48 PM CDT us Juan Car MD LAB POCT ORDERABLES - DEVICE Fi nal Result Performing Organization Address City/[facility]/ZIP Co de Phone Number [facility] ([place]) 1 [facility] [place] [address] * POCT glucose (11/30/2024 11:45 AM CDT) Glucose, POC 143 70 - 199 mg/dL Blood 11/30/2024 11:4 5 AM CDT 11/30/2024 11:45 AM CDT us Jaun Car MD LAB POCT ORDERABLES - DEVICE Fi nal Result Performing Organization Address City/[facility] Co de Phone Number [facility] ([place]) 1 [facility] [place] [address] * POCT glucose (11/30/2024 10:30 AM CDT) Glucose, POC 124 70 - 199 mg/dL Blood 11/30/2024 10:3 0 AM CDT 11/30/2024 10:30 AM CDT us Juan Car MD LAB POCT ORDERABLES - DEVICE Fi nal Result Performing Organization Address City/[facility]/ZIP Co de Phone Number [facility] ([place]) 1 [facility] [place] [address] * CT Abdomen Pelvis W Contrast (11/30/2024 [...] Electronically signed by Kurt Ferro M.D. MM: ROXANNE Report ID: [id number] Reading Location: [id number] Procedure Note Kurt Ferro MD - 11/30/2024 [...] 10:52 AM - Electronically signed by Kurt Holguins M.D. MM: MM Report ID: [id number] Reading Location: [id number] Marcelina Cleaning MD IMG CT PROCEDURES Final R esult * Influenza A/B, RSV, and COVID-19 PCR Nasopharyngeal (11/30/2024 8:32 AM CDT) Pathologist [facility] COVID-19 RNA Negative Negative Influenza A RNA Negative Negative [facility] [facility] ([place]) Influenza B RNA Negative Negative [facility] ER [facility] ([place]) RSV RNA Negative Negative [facility] ([place]) Comment: Interpretive data: Testing performed by [facility]. This test is performed using the [employer] Xpert Xpress CoV-2/Flu/RSV plus assay. This is a multiplex, real- time reverse transcriptase PCR assay intended for the qualitative detection of nucleic acid from SARS-CoV-2, influenza A, influenza B, and respiratory syncytial virus. This assay has been cleared by the [place] Food and Drug administration. The performance characteristics have been verified by the [facility]. Results must be considered in the clinical context, and a negative result does not rule out infection. Interpretive Data last revised 2023 Nasopharyngeal 11/30/2024 8: 32 AM CDT 11/30/2024 8:38 AM CDT Narrative ALYSSA [facility] ([place]) - 11/30/2024 9:16 AM CDT Is the Patient experiencing symptoms consistent with COVID?->Yes Marcelina Cleaning MD LAB MICROBIOLOGY - GENERA L ORDERABLES Final Result ALYSSA [facility] ([place]) 1 [facility] Department [place] [address] * (ABNORMAL) Sepsis Lactate w/ Reflex (11/30/2024 8:32 AM CDT) Pathologist [facility] Sepsis Lactate 3.4(H) 0.7 - 2.0 mmol/L Blood 11/30/2024 8:32 AM CDT 11/30/2024 8:35 AM CDT Marcelina Cleaning MD LAB BLOOD ORDERABLES Stephie l Result ALYSSA [facility] ([place]) 1 [facility] [place] [place] [address] * eGFR (11/30/2024 8:32 AM CDT) eGFR [...] BLOOD ORDERABLES Stephie l Result ALYSSA [facility] ([place]) 1 [facility] [place] [address] * (ABNORMAL) Differential, auto (11/30/2024 8:32 AM CDT) Neutrophil abs 8.26(H) 1.50 - 6.50 K/cumm Imm gran abs 0.04 0.00 - 0.10 K/cumm [facility] ([place]) Lymphocyte abs 2.35 0.80 - 3.30 K/cumm [facility] ([place]) Monocyte abs 0.86(H) 0.20 - 0.80 K/cumm [facility] ([place]) Eosinophil abs 0.19 0.00 - 0.50 K/cumm [...] Stephie l Result [facility]A [facility] ([place]) 1 [facility] [place] [address] * (ABNORMAL) CBC with auto differential (11/30/2024 [...] Stephie l Result [facility]SSA [facility] ([place]) 1 [facility] [place] [address] * Magnesium (11/30/2024 8:32 AM CDT) Magnesium 2.2 1.4 - 2.5 mg/dL Blood 11/30/2024 8:32 AM CDT 11/30/2024 10:34 AM CDT Marcelina Cleaning MD LAB BLOOD ORDERABLES Stephie l Result Performing Organization Address [facility] Co de Phone Number ALYSSA [facility] ([place]) 1 [place] [address] * (ABNORMAL) Hemoglobin A1c (11/30/2024 8:32 AM CDT) Hgb A1C 8.1(H) 4.0 - 5.6 % Estimated Average Glucose 186 mg/dL ALYSSA [facility] ([place]) Comment: The ADA recommends reporting an estimated Average Glucose (eAG) with all Hemoglobin A1c results using the equation derived from a study of 507 normal and diabetic adults. Minority populations were underrepresented and children were not included. (Diabetes Care 31:4202-7823, 2008). The eAG is not equivalent to a fasting glucose. Blood 11/30/2024 8:32 AM CDT 11/30/2024 8:57 AM CDT Marcelina Cleaning MD LAB BLOOD ORDERABLES Stephie l Result Performing Organization Address [facility] Co de Phone Number ALYSSA [facility] ([place]) [address] [place] [address] * Blood gas, venous (11/30/2024 8:32 AM CDT) pH, Venous 7.39 7.32 - 7.43 PCO2, Venous 42 40 - 50 mmHg [facility] ([place]) PO2, Venous 49 mmHg [facility] ([place]) Comment: Interpretive Data No reference range established. Current interpretive data was last revised 2017. HCO3 Venous, Calculated 25 20 - 30 mmol/L [facility] ([place]) BE, venous 0 mmol/L [facility] ([place]) Comment: Interpretive Data No Reference Range Established Current Interpretive Data was last revised on 2017. Blood 11/30/2024 8:32 AM CDT 11/30/2024 8:49 AM CDT us Marcelina Cleaning MD LAB BLOOD ORDERABLES Stephie baez Result ALYSSA [facility] ([place]) 1 [facility] Department [place] [address] * (ABNORMAL) Comprehensive metabolic panel (11/30/2024 8:32 [...] ORDERABLES Stephie l Result Performing Organization Address City/[facility]/ZIP Co de Phone Number ALYSSA [facility] ([place]) 1 [facility] [place] [address] * ECG 12 lead (11/30/2024 8:31 AM CDT) 11/30/2024 8:31 AM CDT Narrative [facility] - 11/30/2024 8:49 AM CDT Vent Rate: 92 bpm RR Interval: 649 msec MT Interval: 162 msec QRS Duration: 94 msec QT Interval: 349 msec QTC Interval: 399 msec P-R-T [place]: 78 - 60 - 72 degrees IMPRESSION: SINUS RHYTHM POSSIBLE LEFT ATRIAL ENLARGEMENT [-0.1mV P-WAVE IN V1/V2] BORDERLINE ECG compared to prior EKG no changes Electronically Signed By: Keny Rock MD B Marcelina Cleaning MD ECG ORDERABLES Final Res ult Performing Organization Address [facility] Co de Phone Number [facility] [employer] [facility] * POCT glucose (11/30/2024 8:13 AM CDT) Glucose, POC 193 70 - 199 mg/dL Blood 11/30/2024 8:13 AM CDT 11/30/2024 8:13 AM CDT Marcelina Cleaning MD LAB POCT ORDERABLES - DEV ICE Final Result Performing Organization Address City/[facility]/ZIP Co de Phone Number ALYSSA [facility]ER[facility] ([place]) 1 [facility] [place] [address] * Thyroid Function Ramsey (10/27/2024 8:51 AM CDT) TSH 1.51 0.30 - 4.20 mcIUnit/mL Blood 10/27/2024 8:51 AM CDT 10/27/2024 2:50 PM CDT Nay Alford WIND OPERATIONS MANAGER LAB BLOOD ORDERABLES Final Resu lt Performing Organization Address [facility] de Phone Number [facility] [address] [facility] [address] * (ABNORMAL) Albumin Creatinine Ratio, Urine (10/27/2024 8:51 AM CDT) Albumin Ur 96.3 mg/L Comment: Interpretive Data No reference range established. Current interpretive data was last revised 2018. Creatinine Ur 124.7 mg/dL ALYSSA Comment: Interpretive Data No reference range established. Current interpretive data was last revised 2018. Albumin Creatinine Ratio, Ur 77(H) 1 - 29 mg/g [facility] Urine 10/27/2024 8:51 AM CDT 10/27/2024 2:50 PM CDT Nay Alford WIND OPERATIONS MANAGER LAB URINE ORDERABLES Final Resu lt Performing Organization Address [facility] de Phone Number [facility] [address] [facility] [address] * (ABNORMAL) Lipid panel (10/27/2024 8:51 AM [...] NCEP Expert Panel. Circulation 2004;110:227 3. Ashok Espinoza al. WENDI Cardiol. 2020 November 19;5(5):540-548. doi: [...] for 8 hours or more?->Yes Nay Alford WIND OPERATIONS MANAGER LAB BLOOD ORDERABLES Final Resu lt ALYSSA [address] Department [place] [address] * DIABETES FOOT EXAM (04/08/2018) [facility] Diabetic Foot Exam Normal Historical Provider HEALTH MAINTENANCE Final Result from Last 3 Months or Most Recently Relevant to Health Maintenance [place] [address] [place] [address] [facility] [place] [address] [address] Advance Directives For more information, please contact: [phone] Documents on File Type Date Recorded Patient College And Career Counselor Expl anation ADVANCE DIRECTIVE 05/26/2020 6:51 PM [...] 11:49 AM 10/18/2024 1:28 PM Care Teams Dashboard Developer Relationship Specialty Start Date End Date Prashanth Saldana PA [address] [place] [address] PCP - General Family Practice 05/25/20 Con Beltrán MD Referring Physician Pediatric Endocrinology 12/20/18 Sidney Russell MD [address] [place] [address] Consulting Physician Gastroenterology 04/19/21
--- OUTSIDE RECORDS SUMMARY | 2025-02-08 11:04 | XMS_ITS | Encounter Summary ---
Author Organization [facility] Address [address] [place] [address] Phone Care Team Providers Care Elevating Grader Operator Name Role Phone Cristobal Aguilera MD Primary Care Provider Con Beltrán MD Unavailable [phone] Azra Yarbrough RN Unavailable [phone] Cristobal Aguilera MD Primary Care Provider Prashanth Saldana Primary Care Provider [phone] Sidney Russell MD Unavailable [phone] Reason for Visit * Reason Onset Date Comments left msg. for family to c/b and sched. 3mo appt. 03/12/2018 Encounter Details Date Type Department Care Team (Late st Contact Info) Description 03/12/2018 Telephone [facility] Pediatric Endocrinology [facility] 2[address] [place] [address] [place] [address] Ngoc Lee left msg. for family to c/b and sched. 3mo appt. Social History Tobacco Use Types Packs/Day Years Used Date Smoking Tobacco: Never Alcohol Use Standard Drinks/Week Comments No 0 (1 standard drink = 0.6 oz pur e alcohol) Sex and Gender Information Value Date Recorded Sex Assigned at Not on file Legal Sex Male 4:12 AM WHEEL TRUER Gender Identity Not on file Sexual Orientation [...] COVID: Suspected 05/26/2020 05/26/2020 05/27/2020 10:23 AM WHEEL TRUER Respiratory Infection ([place]), contact + droplet Comment:IP Review - There is a significant event note with an alternative diagnosis and at least one negative COVID-19 test documented in Epic. Patient meets criteria for COVID-19 isolation discontinuation. ` Automatically added due to negative COVID-19 result. 05/27/2020 05/27/2020 05/27/2020 12:46 PM WHEEL TRUER COVID: Suspected 07/04/2020 07/04/2020 07/04/2020 6:02 PM WHEEL TRUER Respiratory Infection ([place]IE), contact + droplet Comment:Patient classified as Low Risk for COVID-19 and has one negative COVID-19 test. Patient meets criteria for COVID-19 isolation discontinuation 07/04/2020 [place] Automatically added due to negative COVID-19 result. 07/04/2020 07/04/2020 07/04/2020 8:[address] COVID: Suspected 08/03/2020 08/03/2020 08/03/2020 10:50 PM WHEEL TRUER Respiratory Infection ([place]IE), contact + droplet Comment:08/04/2020 [...] documented as of this encounter Care Teams Elevating Grader Operator Relationship Specialty Start Date End Date Cristobal Aguilera MD PCP - General 10/19/16 11/15/19 Cristobal Aguilera MD PCP - General 11/16/19 05/24/20 Prashanth Saldana PA [address] [place] [address] PCP - General Family Practice 05/25/20 Con Beltrán MD Referring Physician Pediatric Endocrinology 12/20/18 Azra Yarbrough RN [address] [address] [facility] Outpatient Hr Coordinator 11/16/19 12/15/19 Sidney Russell MD [address] [place] [address] Consulting Physician Gastroenterology 04/19/21 documented as of this encounter
--- OUTSIDE RECORDS SUMMARY | 2025-02-08 11:04 | XMS_ITS | Clinical Summary ---
Author Organization [facility] ospital Address [address] [place] [address] Care Team Providers Care Swaging Machine Operator Name Role Phone Con Beltrán MD Unavailable [phone] Prashanth Saldana Primary Care Provider [phone] Sidney Russell MD Unavailable Allergies Active Allergy [...] . Assessment & Plan (07/10/2022 9:22 AM ATV MECHANIC): This is a chronic condition which is not at goal. Unable to Download as he has a new pump and is not connected on [place]. Type of insulin pump- tandem T slim [...] of less than 70. Encouraged to contact [employer] and have a new pump shipped Discussed [...] statin Assessment & Plan (07/10/2022 9:19 AM ATV MECHANIC): This is a chronic condition which is [...] G6 at home. He was seen in [facility], but missed appointment in the adult [...] prescribed. Assessment & Plan (08/04/2020 3:50 AM ATV MECHANIC): H/o pancreatitis attributed to hypertriglyceridemia. TGs 215 on 05/27/20. -Continue home fenofibrate and atorvastatin Resolved Problems Problem Noted Date Diagnosed Date Resolved Date Leukocytosis 04/18/2021 04/04/2022 Gallbladder sludge 04/05/2021 Marijuana abuse 04/05/2021 04/04/2022 JACK (acute kidney injury) ([facility]) 10/25/2020 04/04/2022 Diarrhea 10/25/2020 04/04/2022 Hypokalemia 08/04/2020 04/04/2022 Assessment & Plan (08/04/2020 3:59 AM ATV MECHANIC): K to 3.2 after hyperglycemia protocol s/p 40 mEq of IV K in ED. -CTM w/ BMP Nausea and vomiting 07/05/2020 04/04/20 22 Assessment & Plan (08/04/2020 4:10 AM ATV MECHANIC): Patient has chronic N/V, now presenting w/ 3 days of persistent N/V. No abdominal pain. Lipase 15 on presentation. +MJ use. DDx: cyclic vomiting vs. diabetic gastroparesis. -Zofran prn -Pepcid -Can trial Reglan -Encourage MJ cessation Assessment & Plan (07/05/2020 4:24 PM ATV MECHANIC): Etiology likely DKA. Other considerations are PUD [...] 04/04/2022 Assessment & Plan (07/05/2020 4:26 PM ATV MECHANIC): Etiology likely DKA. pH is 7.50 (alkalosis) [...] 04/04/2022 Assessment & Plan (08/04/2020 3:41 AM ATV MECHANIC): Patient multiple past hospitalizations for DKA, most recently in June presenting w/ DKA after 3 days of persistent N/V. BG was 338 w/ AG 18, bicarb 21, ketones 3.2. BG now in the 100s and AG close after hyperglycemia protocol. A1C 10.5 08/02/20. Is a patient of Dr. Swift at [facility] medical group in [place]. Last seen on 07/25 with plan for [...] f/u. Assessment & Plan (07/05/2020 4:21 PM ATV MECHANIC): DKA (ketones 1.4, BG 242, urine glucose [...] insulin regimen is needed at this time. staff educator have talked to Peter and family [...] with diabetes mellitus due to underlying condition (CMS/[facility]) 04/04/2022 EKG abnormality 04/04/2022 Choledocholithiasis 04/04/20 Abdominal pain 04/04/2022 Encounters Date Type Department Care Team Description 01/29/20 25 Telephone [facility] Gastroenterology at [address] [place] [address] Cristin Tejada LPN 01/29/20 25 Telephone [facility] Gastroenterology [address] [place] [address] Medical Office Building [address], [address] [place] [address] Carmen Irving RN IOV scheduling 01/27/20 25 1:30 PM CDT Office Visit [facility] Gastroenterology at [address] [place] [address] Terrence Fitch MD Gastroparesis (Primary Dx); Gastroesophageal reflux disease without esophagitis; Marijuana use 01/27/20 25 10:00 AM CDT Office Visit [facility] Diabetes Endocrine Care at [address] [place] [address] Nay Alford, REYNA Type 1 diabetes mellitus with hyperglycemia (HCC) (Primary Dx); Hypoglycemia; Mixed hyperlipidemia; Tandem T slim Insulin pump in place; Gastroparesis 01/07/20 25 8:00 AM CDT Anesthesia Event [address] [address] Ronaldo Jerome DO Entzeroth, Timothy, CRNA 01/07/20 25 8:00 AM CDT - 01/07/20 25 8:30 AM CDT Surgery [address] [address] Terrence Fitch MD Not Performed ESOPHAGOGASTRODUODENOSCOPY 01/07/20 25 7:27 AM CDT - 01/07/20 25 8:07 AM CDT Hospital Encounter [address] [address] Terrence Fitch MD Discharge Disposition: Discharge to home or self care 01/07/20 25 Telephone [facility] Gastroenterology at [address] [place] [address] Arin Fischer 01/02/20 Results Follow-Up [facility] Gastroenterology at [address] [place] [address] Peter Rivera NP NM Gastric Emptying Study 12/31/19 25 10:13 AM CDT - 12/31/19 25 11:59 PM CDT Hospital Encounter [address] [address] Discharge Disposition: Discharge to home or self care 12/31/19 25 10:13 AM CDT - 12/31/19 25 11:59 PM CDT Hospital Encounter [address] [address] Discharge Disposition: Discharge to home or self care 12/31/19 25 10:13 AM CDT - 12/31/19 25 11:59 PM CDT Hospital Encounter [address] [address] Discharge Disposition: Discharge to home or self care 12/31/19 25 10:13 AM CDT - 12/31/19 25 11:59 PM CDT Hospital Encounter [address] [address] Discharge Disposition: Discharge to home or self care 12/31/19 10:13 AM CDT - 12/31/19 11:59 PM CDT Hospital Encounter [facility] [address] [place] [address] Nausea and vomiting, unspecified vomiting type; Type 1 diabetes mellitus with hyperglycemia (HCC) Discharge Disposition: Discharge to home or self care 12/26/19 Telephone [facility] Gastroenterology at [address] [place] [address] Radhika Cunningham EGD Reschedule 12/22/19 Telephone [facility] Gastroenterology at [address] [place] [address] Evelin Fischer MA 12/18/19 8:15 AM CDT Office Visit [facility] Gastroenterology at [address] [place] [address] Peter Rivera NP Nausea and vomiting, unspecified vomiting type (Primary Dx); Abnormal CT scan, esophagus; Gastroesophageal reflux disease, unspecified whether esophagitis present; Type 1 diabetes mellitus with hyperglycemia (HCC); Tandem T slim Insulin pump in place; Marijuana use; Tobacco use disorder 12/18/19 Telephone [facility] Gastroenterology at [address] [place] [address] Cristin Tejada LPN 12/03/19 4:04 AM CDT - 12/03/19 5:56 PM CDT Hospital Encounter [facility] ICU [address] [place] [address] Marcelina Cleaning MD Masetti, Paolo, MD Type 1 diabetes mellitus with ketoacidosis without coma (HCC) (Primary Dx); Gastroparesis; Nausea and vomiting, unspecified vomiting type Discharge Disposition: Left Against Medical Advice 12/01/19 7:54 AM CDT - 12/01/19 2:36 PM CDT Hospital Encounter [facility] ICU [address] [place] [address] Marcelina Cleaning MD Masetti, Paolo, MD Diabetic ketoacidosis without coma associated with type 1 diabetes mellitus (HCC) (Primary Dx); Hyperemesis Discharge Disposition: Left Against Medical Advice from Last 3 Months Surgical History Surgery Date Site/Laterality Comments ESOPHAGOGASTRODUODENOSCOPY 01/06/2025 Medical History Medical History Date Comments Type 1 diabetes mellitus (HCC) D iabetes type 1; Comments: [facility] 11/23/2015 - Hx Other Medical high lipids; Co mments: [facility] 11/23/2015 - Hx Other Medical pancreatitis; C omments: [facility] 11/23/2015 - Pancreatitis Asthma [...] drink = 0.6 oz pur e alcohol) [facility] Utilities Answer Date Recorded In the past 12 months has e [employer] gas, oil, or water [employer] threatened to shut off services in your [...] any clubs o r organizations such as rastafari groups, unions, fraternal or athletic groups, or [...] any time in the past 12 [facility], were you homeless or living in a long term (including now)? No 12/02/2024 Personal Safety Answer Date Recorded Have you ever been in or are you currently in a harmful physical or emotional relationship or is someone making you feel afraid or unsafe? Denies 01/06/2025 Sex and Gender Information Value Date Recorded Sex Assigned at Not on file Legal Sex Male 4:12 AM ATV MECHANIC Gender Identity Not on file Sexual Orientation [...] - DEVICE Fin al Result ALYSSA [facility]ERES [place]) 1 [facility] [place] [address] * NM Gastric Emptying Study [...] Shaquille Contreras M.D. LB: ISRA[place] Report ID: [id number] Reading Location: [id number] Procedure Note Shaquille Contreras MD - 12/30/2024 [...] Shaquille Contreras M.D. LB: ISRA[place] Report ID: [id number] Reading Location: [place] [address] [facility] SYNOPTIC METEOROLOGIST IMG NM PROCEDURES F inal Result * Infection Prevention MRSA Only (Staphylococcus aureus) PCR Nasal (12/02/2024 4:48 PM CDT) Pathologist [facility] PCR Scrn, Methicillin resistant Staphylococcus aureus (MRSA) Not Detected Not Detected Comment: Interpretive Data Testing performed using Nucleic Acid Amplification with the Goodzer Xpert MRSA NxG Assay. This assay detects target DNA from mecA, mecC and the SCCmec insertion site of Staphylococcus aureus using Real-Time PCR and has been cleared by the FDA. Performance characteristics have been verified by the [facility]. Current Interpretive Data was last revised on 2022 Nasal 12/02/2024 4:48 PM CDT 12/02/2024 4:55 PM CDT Juan Car MD LAB MICROBIOLOGY - [facility] Final Result [facility] [place]) 1 [facility] [place] [address] * eGFR (12/02/2024 4:43 PM CDT) eGFR [...] Final Resu lt [facility] ([place]) 1 [facility] [place] [address] * (ABNORMAL) Basic metabolic panel (12/02/2024 4:43 PM CDT) Sodium 136 135 - 145 mmol/L Potassium, pl 3.9 3.3 - 4.9 mmol/L [facility] ([place]) Chloride 100 97 - 110 mmol/L [facility] ([place]) CO2 20(L) 22 - 32 mmol/L [facility] ([place]) Anion gap 16(H) 2 - 15 mmol/L [facility] BUN 12 6 - 25 mg/dL [facility] ([place]) Creatinine 0.87 0.80 - 1.30 mg/dL [facility] ([place]) Glucose 341(H) 70 - 199 mg/dL [facility] Comment: Interpretive Data Fasting [...] classification and Diagnosis of Diabetes Diabetes Care 2022; 46: S19-S40. Current interpretive data was last revised 2022. Calcium 8.4(L) 8.5 - 10.3 mg/dL AL[facility]SSA [facility] ([place]) Blood 12/02/2024 4:43 PM CDT 12/02/2024 4:55 PM CDT Juan Car MD LAB BLOOD ORDERABLES Final Resu lt ALYSSA [facility] ([place]) 1 [facility] [place] [address] * (ABNORMAL) POCT glucose (12/02/2024 4:29 PM CDT) Glucose, POC 309(H) 70 - 199 mg/dL Blood 12/02/2024 4:29 PM CDT 12/02/2024 4:29 PM CDT Juan Car MD LAB POCT ORDERABLES - DEVICE Fi nal Result Performing Organization Address [facility] Co de Phone Number ALYSSA [facility]ERES ([place]) 1 [facility] [place] [address] * POCT glucose (12/02/2024 12:13 PM CDT) Glucose, POC 156 70 - 199 mg/dL Blood 12/02/2024 12:1 3 PM CDT 12/02/2024 12:13 PM CDT us Juan Car MD LAB POCT ORDERABLES - DEVICE Fi nal Result Performing Organization Address City/[facility]/ZIP Co de Phone Number ALYSSA CACERES ([place]) 1 [facility] [place] [address] * eGFR (12/02/2024 10:25 AM CDT) eGFR [...] CDT 12/02/2024 10:32 AM CDT us Juan aCr MD LAB BLOOD ORDERABLES Final Resu lt [facility] ([place]) 1 [facility] [place] [address] * Basic metabolic panel (12/02/2024 10:25 AM CDT) Sodium 143 135 - 145 mmol/L Potassium, pl 3.8 3.3 - 4.9 mmol/L [facility] Chloride 106 97 - 110 mmol/L [facility] CO2 23 22 - 32 mmol/L [facility] ([place]) Anion gap 14 2 - 15 mmol/L [facility] BUN 15 6 - 25 mg/dL [facility] Creatinine 0.87 0.80 - [...] Calcium 8.5 8.5 - 10.3 mg/dL AL[facility] ([place]) Blood 12/02/2024 10:2 5 AM CDT 12/02/2024 10:32 AM CDT Juan Car MD LAB BLOOD ORDERABLES Final Resu lt ALYSSA [facility] ([place]) 1 [facility] [place] [address] * POCT glucose (12/02/2024 9:11 AM CDT) Glucose, POC 70 70 - 199 mg/dL Blood 12/02/2024 9:11 AM CDT 12/02/2024 9:11 AM CDT Juan Car MD LAB POCT ORDERABLES - DEVICE Fi nal Result Performing Organization Address [facility]/ZIP Co de Phone Number ALYSSA [facility] ([place]) 1 [facility] [place] [address] * (ABNORMAL) POCT glucose (12/02/2024 8:55 AM CDT) Glucose, POC 61(L) 70 - 199 mg/dL Blood 12/02/2024 8:55 AM CDT 12/02/2024 8:55 AM CDT Juan Car MD LAB POCT ORDERABLES - DEVICE Fi nal Result ALYSSA [facility] ([place]) 1 [facility] [place] [address] * XR Chest 1 Vw Portable (12/02/2024 [...] Shaquille Contreras M.D. LB: LB Report ID: [id number] Reading Location: [id number] Procedure Note Shaquille Contreras MD - 12/02/2024 [...] Shaquille Contreras M.D. LB: LB Report ID: [id number] Reading Location: [id number] us Marcelina Cleaning MD IMG XR PROCEDURES Final R esult * ECG 12 lead (12/02/2024 7:50 AM CDT) 12/02/2024 7:50 AM CDT Narrative [facility] - 12/02/2024 8:36 AM CDT Vent Rate: 90 bpm RR Interval: 665 msec LA Interval: 159 msec QRS Duration: 85 msec QT Interval: 360 msec QTC Interval: 407 msec P-R-T Chadwick: 84 - 76 - 76 degrees IMPRESSION: SINUS RHYTHM NONSPECIFIC T-WAVE ABNORMALITY BORDERLINE ECG NO CHANGE FROM PREVIOUS TRACING NOTED Electronically Signed By: Matt Mercado MD us Marcelina Cleaning MD ECG ORDERABLES Final Res ult [facility] * (ABNORMAL) Urinalysis reflex to [...] tendency for uric acid stone formation. Source: [facility] [place] Current Interpretive Data was last revised on [...] L ORDERABLES Final Result Performing Organization Address [facility] Co de Phone Number ALYSSA [facility]ERES ([place]) 1 [facility] [place] [address] * (ABNORMAL) Urinalysis, microscopic only (12/02/2024 6:07 AM CDT) WBC, ur 0-5 0 - 5 /HPF RBC, ur 11-20(A) 0 - 2 /HPF [facility] ([place]) Mucous, ur Present(A) [facility] ([place]) Hyaline casts, ur 1-5 0 - 10 /LPF [facility] ([place]) Culture Reflex Comment Reflex conditions for urine culture (WBC >10) not met. [facility] ([place]) Urine 12/02/2024 6:07 AM CDT 12/02/2024 6:15 AM CDT Jen Roth MD LAB URINE ORDERABLES Final Resul t Performing Organization Address [facility] Co de Phone Number [facility] ([place]) 1 [place] [address] * (ABNORMAL) Blood gas, venous (12/02/2024 6:07 AM CDT) pH, Venous 7.44(H) 7.32 - 7.43 PCO2, Venous 34(L) 40 - 50 mmHg [facility] ([place]) PO2, Venous 86 mmHg [facility] ([place]) HCO3 Venous, Calculated 23 20 - 30 mmol/L [facility] BE, venous 0 mmol/L [facility] ([place]) Comment: Interpretive Data No Reference Range Established Current Interpretive Data was last revised on 2017. Blood 12/02/2024 6:07 AM CDT 12/02/2024 6:15 AM CDT Marcelina Cleaning MD LAB BLOOD ORDERABLES Stephie l Result Performing Organization Address City/[facility]/ZIP Co de Phone Number ALYSSA [facility] ([place]) 1 [facility] Department [place] [address] * Influenza A/B, RSV, and COVID-19 PCR Nasopharyngeal (12/02/2024 4:28 AM CDT) [facility] COVID-[facility] RNA Negative Negative Influenza A RNA Negative Negative [facility] ([place]) Influenza B RNA Negative Negative [facility] ([place]) RSV RNA Negative Negative [facility] ([place]) Comment: Interpretive data: Testing performed by [facility]. This test is performed using the Goodzer Xpert Xpress CoV-2/Flu/RSV plus assay. This is a multiplex, real- time reverse transcriptase PCR assay intended for the qualitative detection of nucleic acid from SARS-CoV-2, influenza A, influenza B, and respiratory syncytial virus. This assay has been cleared by the [place] Food and Drug administration. The performance characteristics have been verified by the [facility]. Results must be considered in the clinical context, and a negative result does not rule out infection. Interpretive Data last revised 2023 Nasopharyngeal 12/02/2024 4: 28 AM CDT 12/02/2024 4:30 AM CDT Narrative [facility] ([place]) - 12/02/2024 5:15 AM CDT Is the Patient experiencing symptoms consistent with COVID?->Yes Jen Roth MD LAB MICROBIOLOGY - GENERAL ORDER DENIS Final Result ALYSSA [facility] ([place]) 1 [facility] [place] [address] * eGFR (12/02/2024 3:24 AM CDT) [facility] eGFR >90 >=60 mL/min/1. 73 m2 [...] LAB BLOOD ORDERABLES Stephie l Result ALYSSA [facility] ([place]) 1 [facility] [place] [address] * (ABNORMAL) Differential, auto (12/02/2024 3:24 AM CDT) Neutrophil abs 9.54(H) 1.50 - 6.50 K/cumm Imm gran abs 0.03 0.00 - 0.10 K/cumm [facility] ([place]) Lymphocyte abs 2.35 0.80 - 3.30 K/cumm [facility] ([place]) Monocyte abs 0.66 0.20 - 0.80 K/cumm [...] Imm gran pct 0.2 % [facility] ([place]) Comment: Interpretive Data Percent cell count reference [...] MD LAB BLOOD ORDERABLES Stephie baez Result [facility] 1 [facility] [place] [address] * (ABNORMAL) CBC with auto differential (12/02/2024 3:24 AM CDT) WBC 12.66(H) 3.80 - 9.90 K/cumm Hgb 15.5 13.0 - 17.5 g/dL [facility] ([place]) Hct 46.0 38.9 - 50.3 % [facility] Plt 334 150 - 400 K/cumm [facility] ([place]) MPV 9.9 9.1 - 12.3 fL [facility] ([place]) RBC 5.42 4.30 - 5.80 M/cumm [facility] ([place]) MCV 84.9 81.3 - 96.4 fL [facility] ([place]) MCH 28.6 27.1 - 33.3 pg [facility] ([place]) MCHC 33.7 32.3 - 35.7 g/dL [facility] ([place]) RDW CV 13.0 11.1 - 14.9 % [facility] ([place]) RDW SD 40.2 35.7 - 48.1 fL [facility] ([place]) NRBC abs 0.00 0.00 - 0.01 K/cumm [facility] ([place]) Blood Venous blood specimen / Unknown 12/02/2024 3:24 AM CDT 12/02/2024 3:35 AM CDT Marcelina Cleaning MD LAB BLOOD ORDERABLES Stephie l Result Performing Organization Address City/[facility]/ZIP Co de Phone Number [facility] ([place]) 1 [facility] [place] [address] * Lipase (12/02/2024 3:24 AM CDT) Pathologist [facility] Lipase 12 10 - 99 Units/L Blood Venous blood specimen / Unknown 12/02/2024 3:24 AM CDT 12/02/2024 3:35 AM CDT Marcelina Cleaning MD LAB BLOOD ORDERABLES Stephie l Result Performing Organization Address City/[facility]/ZIP Co de Phone Number [facility] ([place]) 1 [facility] [place] [address] * (ABNORMAL) Comprehensive metabolic panel (12/02/2024 3:24 AM CDT) Pathologist [facility] Sodium 141 135 - 145 mmol/L Potassium, pl 3.9 3.3 - 4.9 mmol/L [facility] ([place]) Chloride 98 97 - 110 mmol/L [facility] ([place]) CO2 22 22 - 32 mmol/L [facility] ([place]) Anion gap 21(H) 2 [...] MD LAB BLOOD ORDERABLES Stephie baez Result [facility] 1 [facility] [place] [address] * POCT glucose (12/02/2024 3:21 AM CDT) Glucose, POC 111 70 - 199 mg/dL Blood 12/02/2024 3:21 AM CDT 12/02/2024 3:21 AM CDT us Notinfile Unknown LAB POCT ORDERABLES - DEVICE F inal Result ALYSSA [facility] ([place]) 1 [facility] [place] [address] * POCT glucose (11/30/2024 1:58 PM CDT) Glucose, POC 177 70 - 199 mg/dL Blood 11/30/2024 1:58 PM CDT 11/30/2024 1:58 PM CDT us Juan Car MD LAB POCT ORDERABLES - DEVICE Fi nal Result Performing Organization Address [facility]/ZIP Co de Phone Number ALYSSA [facility]ERES ([place]) 1 [facility] [place] [address] * Lactate (11/30/2024 12:51 PM CDT) Lactate 0.8 0.7 - 2.0 mmol/L Blood 11/30/2024 12:5 1 PM CDT 11/30/2024 12:57 PM CDT us Juan Car MD LAB BLOOD ORDERABLES Final Resu lt Performing Organization Address City/[facility]/ZIP Co de Phone Number ALYSSA [facility] ([place]) 1 [facility] [place] [address] * eGFR (11/30/2024 12:51 PM CDT) eGFR [...] ORDERABLES Final Resu lt Performing Organization Address City/[facility]/ZIP Co de Phone Number ALYSSA [facility] ([place]) [address] [place] [address] [place] [address] * Beta-hydroxybutyrate (11/30/2024 12:51 PM CDT) Beta-Hydroxybut yrate 0.5 <=0.5 mmol/L Comment:Testing performed by : [facility], [address] [place] [address], [facility] Blood 11/30/2024 12:5 1 PM CDT 11/30/2024 10:37 PM CDT Juan Car MD LAB BLOOD ORDERABLES Final Resu lt [facility] ([place]) [address] [place] [address] [place] [address] * Basic metabolic panel (11/30/2024 12:51 PM CDT) Sodium 138 135 - 145 mmol/L Potassium, pl 4.5 3.3 - 4.9 mmol/L [facility] ([place]) Chloride 103 97 - 110 mmol/L [facility] ([place]) CO2 22 22 - 32 mmol/L [facility] ([place]) Anion gap 13 2 - 15 mmol/L [facility] ([place]) BUN 19 6 - 25 [...] LAB BLOOD ORDERABLES Final Resu lt ALYSSA [facility] ([place]) 1 [facility] [place] [address] * POCT glucose (11/30/2024 12:48 PM CDT) Glucose, POC 176 70 - 199 mg/dL Blood 11/30/2024 12:4 8 PM CDT 11/30/2024 12:48 PM CDT Juan Car MD LAB POCT ORDERABLES - DEVICE Fi nal Result ALYSSA [facility] ([place]) 1 [facility] [place] [address] * POCT glucose (11/30/2024 11:45 AM CDT) Glucose, POC 143 70 - 199 mg/dL Blood 11/30/2024 11:4 5 AM CDT 11/30/2024 11:45 AM CDT us Juan Car MD LAB POCT ORDERABLES - DEVICE Fi nal Result Performing Organization Address City/[facility]/ZIP Co de Phone Number ALYSSA [facility]ERES [place]) 1 [facility] [place] [address] * POCT glucose (11/30/2024 10:30 AM CDT) Glucose, POC 124 70 - 199 mg/dL Blood 11/30/2024 10:3 0 AM CDT 11/30/2024 10:30 AM CDT us Juan Car MD LAB POCT ORDERABLES - DEVICE Fi nal Result Performing Organization Address [facility] de Phone Number ALYSSA [facility]ERES [place]) 1 [facility] [place] [address] * CT Abdomen Pelvis W Contrast (11/30/2024 [...] Kurt Ferro M.D. MM: MM Report ID: [id number] Reading Location: [id number] Procedure Note Kurt Ferro MD - 11/30/2024 [...] Kurt Ferro M.D. MM: MM Report ID: [id number] Reading Location: [id number] Marcelina Cleaning MD IMG CT PROCEDURES Final R esult * Influenza A/B, RSV, and COVID-19 PCR Nasopharyngeal (11/30/2024 8:32 AM CDT) COVID-19 RNA Negative Negative Influenza A RNA Negative Negative [facility] ([place]) Influenza B RNA Negative Negative [facility] ([place]) RSV RNA Negative Negative [facility] ([place]) Comment: Interpretive data: Testing performed by [facility]. This test is performed using the Goodzer Xpert Xpress CoV-2/Flu/RSV plus assay. This is a multiplex, real- time reverse transcriptase PCR assay intended for the qualitative detection of nucleic acid from SARS-CoV-2, influenza A, influenza B, and respiratory syncytial virus. This assay has been cleared by the [place] Food and Drug administration. The performance characteristics have been verified by the [facility]. Results must be considered in the clinical context, and a negative result does not rule out infection. Interpretive Data last revised 2023 Nasopharyngeal 11/30/2024 8: 32 AM CDT 11/30/2024 8:38 AM CDT Narrative ALYSSA NICKI ([place]) - 11/30/2024 9:16 AM CDT Is the Patient experiencing symptoms consistent with COVID?->Yes Marcelina Cleaning MD LAB MICROBIOLOGY - GENERA L ORDERABLES Final Result Performing Organization Address City/[facility]/ZIP Co de Phone Number ALYSSA CACERES ([place]) 1 [facility] [place] [address] * (ABNORMAL) Sepsis Lactate w/ Reflex (11/30/2024 8:32 AM CDT) Pathologist [facility] Sepsis Lactate 3.4(H) 0.7 - 2.0 mmol/L Blood 11/30/2024 8:32 AM CDT 11/30/2024 8:35 AM CDT Marcelina Cleaning MD LAB BLOOD ORDERABLES Stephie l Result Performing Organization Address City/[facility]/ZIP Co de Phone Number ALYSSA CACERES ([place]) [address] [place] [address] [place] [address] * eGFR (11/30/2024 8:32 AM CDT) Pathologist [facility] eGFR >90 >=60 mL/min/1. 73 m2 Comment: [...] BLOOD ORDERABLES Stephie baez Result ALYSSA CACERES ([place]) 1 [facility] [place] [address] * (ABNORMAL) Differential, auto (11/30/2024 8:32 AM [...] Stephie baez Result [facility] ([place]) 1 [facility] [place] [address] * (ABNORMAL) CBC with auto differential (11/30/2024 [...] ([place]) MCHC 33.3 32.3 - 35.7 g/dL [facility] ([place]) RDW CV 13.1 11.1 - 14.9 % [facility] ([place]) RDW SD 40.5 35.7 - 48.1 fL [facility] ([place]) NRBC abs 0.00 0.00 - 0.01 K/cumm [facility] ([place]) Blood 11/30/2024 8:32 AM CDT 11/30/2024 8:35 AM CDT Marcelina Cleaning MD LAB BLOOD ORDERABLES Stephie l Result ALYSSA [facility] ([place]) 1 [facility] [place] [address] * Magnesium (11/30/2024 8:32 AM CDT) Magnesium 2.2 1.4 - 2.5 mg/dL Blood 11/30/2024 8:32 AM CDT 11/30/2024 10:34 AM CDT Marcelina Cleaning MD LAB BLOOD ORDERABLES Stephie l Result Performing Organization Address City/[facility] Co de Phone Number [facility] [place]) 1 [place] [address] * (ABNORMAL) Hemoglobin A1c (11/30/2024 8:32 AM CDT) Hgb A1C 8.1(H) 4.0 - 5.6 % Estimated Average Glucose 186 mg/dL [facility] ([place]) Comment: The ADA recommends reporting an estimated Average Glucose (eAG) with all Hemoglobin A1c results using the equation derived from a study of 507 normal and diabetic adults. Minority populations were underrepresented and children were not included. (Diabetes Care 31:3474-6559, 2008). The eAG is not equivalent to a fasting glucose. Blood 11/30/2024 8:32 AM CDT 11/30/2024 8:57 AM CDT Marcelina Cleaning MD LAB BLOOD ORDERABLES Stephie l Result Performing Organization Address [facility] Co de Phone Number ALYSSA CACERES ([place]) 1 [facility] [place] [address] * Blood gas, venous (11/30/2024 8:32 AM CDT) pH, Venous 7.39 7.32 - 7.43 PCO2, Venous 42 40 - 50 mmHg [facility] ([place] PO2, Venous 49 mmHg [facility] Comment: Interpretive Data No reference range established. Current interpretive data was last revised 2017. HCO3 Venous, Calculated 25 20 - 30 mmol/L [facility] ([place] BE, venous 0 mmol/L [facility] Comment: Interpretive Data No Reference Range Established Current Interpretive Data was last revised on 2017. Blood 11/30/2024 8:32 AM CDT 11/30/2024 8:49 AM CDT Marcelina Cleaning MD LAB BLOOD ORDERABLES Stephie l Result Performing Organization Address [facility] Co de Phone Number ALYSSA CACERES ([place]) 1 [facility] [place] [address] * (ABNORMAL) Comprehensive metabolic panel (11/30/2024 8:32 AM CDT) Sodium 139 135 - 145 mmol/L Potassium, pl 3.8 3.3 - 4.9 mmol/L [facility] ([place]) Chloride 101 97 - 110 mmol/L [facility] ([place]) CO2 21(L) 22 - 32 mmol/L [facility] ([place]) Anion gap 17(H) 2 - 15 mmol/L [facility] ([place]) BUN 21 6 - 25 mg/dL [facility] ([place]) Creatinine 1.08 0.80 - 1.30 mg/dL [facility] ([place]) Glucose 224(H) 70 - [...] MD LAB BLOOD ORDERABLES Stephie l Result [facility] 1 [facility] [place] [address] * ECG 12 lead (11/30/2024 8:31 AM CDT) 11/30/2024 8:31 AM CDT Narrative [facility] - 11/30/2024 8:49 AM CDT Vent Rate: 92 bpm RR Interval: 649 msec LA Interval: 162 msec QRS Duration: 94 msec QT Interval: 349 msec QTC Interval: 399 msec P-R-T [place]: 78 - 60 - 72 degrees IMPRESSION: SINUS RHYTHM POSSIBLE LEFT ATRIAL ENLARGEMENT [-0.1mV P-WAVE IN V1/V2] BORDERLINE ECG compared to prior EKG no changes Electronically Signed By: Keny Rock MD [facility] Marcelina Cleaning MD ECG ORDERABLES Final Res ult Performing Organization Address City/[facility]/ZIP Co de Phone Number [facility] * POCT glucose (11/30/2024 8:13 AM CDT) Glucose, POC 193 70 - 199 mg/dL Blood 11/30/2024 8:13 AM CDT 11/30/2024 8:13 AM CDT Marcelina Cleaning MD LAB POCT ORDERABLES - DEV ICE Final Result Performing Organization Address City/[facility]/ZIP Co de Phone Number ALYSSA [facility] ([facility] 1 [facility] [place] [address] * Thyroid Function [place] (10/27/2024 8:51 AM CDT) Pathologist [facility] TSH 1.51 0.30 - 4.20 mcIUnit/mL Blood 10/27/2024 8:51 AM CDT 10/27/2024 2:50 PM CDT Nay Alford NP LAB BLOOD ORDERABLES Final Resu lt Performing Organization Address [facility] Co de Phone Number ALYSSA [address] Department [place] [address] * (ABNORMAL) Albumin Creatinine Ratio, Urine (10/27/2024 8:51 AM CDT) Albumin Ur 96.3 mg/L Comment: Interpretive Data No reference range established. Current interpretive data was last revised 2018. Creatinine Ur 124.7 mg/dL ALYSSA Comment: Interpretive Data No reference range established. Current interpretive data was last revised 2018. Albumin Creatinine Ratio, Ur 77(H) 1 - 29 mg/g ALYSSA Urine 10/27/2024 8:5 1 AM CDT 10/27/2024 2:50 PM CDT us Nay Alford NP LAB URINE ORDERABLES Final Resu lt ALYSSA [address] [place] [address] * (ABNORMAL) Lipid panel (10/27/2024 8:51 AM [...] LAB [place]LOOD [place] [address] [address] Department [place] [address] * DIABETES FOOT EXAM (04/08/2018) Diabetic Foot Exam Normal Historical Provider MD HEALTH MAINTENANCE Final Result from Last 3 Months or Most Recently Relevant to Health Maintenance Insurance [facility] Advance Directives For more information, please contact: [phone] Documents on File Type Date Recorded Patient Data Operations Leader Expl anation ADVANCE DIRECTIVE 05/26/2020 6:51 PM [...] 11:49 AM 10/18/2024 1:28 PM Care Teams Swaging Machine Operator Relationship Specialty Start Date End Date Prashanth Saldana PA [address] [place] [address] PCP - General Family Practice 05/25/20 Con Beltrán MD Referring Physician Pediatric Endocrinology 12/20/18 Sidney Russell MD [address] [place] [address] Consulting Physician Gastroenterology 04/19/21
--- NOTE | 2025-02-08 11:39 | ED_ITS ---
HPI - Nausea/Vomiting/Diarrhea General Chief complaint: Nausea/Vomiting/Diarrhea Stated complaint: flare up gastropresis Time Seen by Provider: 02/08/25 11:40 Source: patient, RN notes reviewed and old records reviewed Mode of arrival: ambulatory Limitations: no limitations History of Present Illness HPI Narrative: 24-year-old male presents to the [facility] with a history of gastroparesis and a type I diabetic. Patient reports that he does have medications at home, requesting a work note to return tomorrow. Related Data Home Medications ?Medication ?Instructions ?Recorded ?Confirmed ?Last Taken ?Type atorvastatin 20 mg tablet mg 11/03/24 Unknown History blood-glucose sensor (Dexcom G7 11/03/24 02/04/25 Unknown History Sensor device) blood-glucose transmitter (Dexcom 11/03/24 02/04/25 Unknown History G6 Transmitter device) insulin lispro 100 unit/mL 11/03/24 Unknown History subcutaneous solution (Humalog U-100 Insulin) metoclopramide HCl 10 mg tablet mg 11/03/24 Unknown History pantoprazole 40 mg tablet,delayed mg PO 11/03/24 Unknown History release erythromycin ethylsuccinate 400 12/22/24 Unknown History mg/5 mL oral powder for suspension diphenhydramine HCl 25 mg capsule mg 02/04/25 Unknown History (Banophen) glucagon 1 mg/0.2 mL subcutaneous mg subcut 02/04/25 Unknown History auto-injector (Gvoke HypoPen 2-Pack) Allergies Allergy/AdvReac Type Severity Reaction Status Date / Time haloperidol (From Haldol) AdvReac Severe Other Verified 02/04/25 10:41 Review of Systems Review of Systems: All systems reviewed & are unremarkable except as noted in HPI and below Constitutional: Constitutional: Reports no additional constitutional complaints ENT: Reports system reviewed and no additional complaints, except as documented Cardiovascular: Cardiovascular: Reports no additional cardiovascular complai nts, Denies chest pain and Denies dyspnea Respiratory: Respiratory: Reports no additional respiratory complaints, Denies chest congestion, Denies cough and Denies dyspnea Gastrointestinal: Gastrointestinal: Reports as per HPI Musculoskeletal: Musculoskeletal: Reports no additional musculoskeletal complaints Integumentary/Breasts: Skin/Breast: Reports system reviewed and no additional complaints, except as docu [facility] Past Medical History Medical History Gastroparesis Elevated cholesterol Type 1 diabetes Surgical History Surgical History History of cholecystectomy Family History Family History Mother Family history non-contributory Social History Social History Smoking status: Never smoker Alcohol intake: never Substance use: current Substance use type: marijuana Living arrangements: with family Gender identity (if verbalized by the patient): Male Comments At the time of my signature, I reviewed and agree with the nursing past medical, surgical, social, and family history. There is no relevant family history pertinent to the patient complaint. Exam Const: General: cooperative, healthy appearing, comfortable, no acute distress, well developed, alert and well nourished Nutritional Appearance: well nourished Orientation/consciousness: patient oriented x3 Limitations: no limitations HENMT: Head: normal to inspection Eyes: General: appearance normal, both eyes and all related structures Alignment and Position: alignment normal Neck: Neck: normal visual inspection, full ROM, no lymphadenopathy and no meningeal signs Chest: Chest palpation & inspection: normal inspection of the chest Resp: Effort & Inspection: normal respiratory effort and able to speak in complete sentences Auscultation: clear to auscultation bilaterally, no crackles, no rales, no rhonchi and no wheezes Cardio: Rate: regular rate GI: GI Palp: No abdominal tenderness Skin: General skin exam: normal color and no rashes or lesions noted Neuro: General: patient oriented x3, gait normal, moves all extremities and no meningeal signs Cognition (Neuro): normal cognition Speech: normal speech Gait exam (Neuro): Normal gait present Extrem: General: normal to inspection, full ROM, capillary refill normal and normal gait Psych: Appearance: grossly normal and well kempt Mental Status: mental status grossly normal Speech and movement: Normal speech and movement present and Clear speech present Affect: normal affect Attitude: cooperative Course Course Level of Care: Express Care Visit Vital Signs Vital signs: Vital Signs Temperature 97.7 F 02/08/25 11:04 Pulse Rate 86 02/08/25 11:04 Respiratory Rate 16 02/08/25 11:04 Blood Pressure 107/81 02/08/25 11:04 Pulse Oximetry 99 02/08/25 11:04 Oxygen Delivery Room Air 02/08/25 11:04 Temperature 97.7 F 02/08/25 11:04 Pulse Rate 86 02/08/25 11:04 Respiratory Rate 16 02/08/25 11:04 Blood Pressure 107/81 02/08/25 11:04 Pulse Oximetry 99 02/08/25 11:04 Oxygen Delivery Room Air 02/08/25 11:04 Reviewed MDM - Nausea/Vomiting/Diarrhea MDM Narrative Medical decision making narrative: Discussed with patient that he may want to talk to primary care provider and request intermittent FMLA for the gastroparesis type 1 diabetes. Patient states that his sugars have been between 180 and 220 Patient sitting in exam room. Patient is nontoxic. Vitals are stable. Patient presents with a ?flare of his gastroparesis. ? Patient appropriate for outpatient treatment, has medications at home Discharge instructions reviewed with patient, as well as provided in writing per nursing staff. The instructions also include specific and strict return/GO TO THE ER as well as f/u information. All questions have been answered, and the patient deny any further questions with discharge and discharge plan. Some parts of this dictation were generated by voice recognition software and may contain typographical and/or grammatical inaccuracies. Differential Diagnosis Differential diagnosis: Likely gastroenteritis Critical Care Time Critical Care Time Critical Care Time: No Discharge Plan Discharge Clinical Impression: Diabetic gastroparesis Type 1 diabetes Qualifiers: Diabetes mellitus complication status: without complication Qualified Code(s): E10.9 - Type 1 diabetes mellitus without complications Patient Disposition: Home Condition: Stable Instructions: Antibiotic Form, Diabetic Gastroparesis (DC) Additional Instructions: Follow-up with your primary care provider Take your medications as prescribed For new or worsening symptoms go directly to the emergency room Patient Language: Togolese Prescriptions: No Action ondansetron 4 mg tablet,disintegrating 4 mg PO Q6H PRN (Reason: nausea and vomiting) Qty: 14 0RF dicyclomine 20 mg tablet 20 mg PO Q6-8H PRN (Reason: abdominal cramping) Qty: 20 0RF ondansetron 4 mg tablet,disintegrating 4 mg PO Q8H PRN (Reason: nausea and vomiting) Qty: 20 0RF diphenhydramine HCl [Banophen] 25 mg capsule Gvoke HypoPen 2-Pack 1 mg/0.2 mL auto-injector SUBCUT atorvastatin 20 mg tablet pantoprazole 40 mg tablet,delayed release (DR/EC) PO insulin lispro [Humalog U-100 Insulin] 100 unit/mL solution Patient Comments: insulin pump metoclopramide HCl 10 mg tablet (DME) Dexcom G7 Sensor Device MISCELLANEOUS (DME) Dexcom G6 Transmitter Device MISCELLANEOUS erythromycin ethylsuccinate 400 mg/5 mL suspension for reconstitution Follow-up/Referrals: Les,REEMA Arizmendi [Primary Care Provider] - 3 Days [facility] Stand Alone Forms: Work/School Release IP Time of Disposition: 11:46
== END 2025-02-08 11:52 | disposition home or self-care (01) ==
PROVIDERS: Emergency Provider Nurse Practitioner; PCP Physician Assistant
DX: E10.43 Type 1 diabetes mellitus with diabetic autonomic (poly)neuropathy (principal); K31.84 Gastroparesis; Z79.4 Long term (current) use of insulin; E78.00 Pure hypercholesterolemia, unspecified; F12.90 Cannabis use, unspecified, uncomplicated
CPT/HCPCS: 99211; G0463

== ENCOUNTER 2025-03-26 08:30 | Emergency (ER) | payer OTHER, SELFPAY ==
[2025-03-26 08:31] VITALS: BP 141/96; PULSE 70; RESP 16; TEMP 36.5; O2SAT 100
--- NOTE | 2025-03-26 08:37 | ED_ITS ---
HPI - Abdominal Pain General Chief Complaint: Abdominal Pain Stated Complaint: Abdominal Pain Time Seen by Provider: 03/26/25 08:37 Source: patient and family Mode of arrival: ambulatory Limitations: no limitations History of Present Illness HPI narrative: 24 yo M with hx of gastroparesis presents for work note. Vomited x 2 this AM. Symptoms no worse than usual. Sees a GI specialist at [facility]. All systems reviewed and negative except as noted above. Related Data Home Medications ?Medication ?Instructions ?Recorded ?Confirmed ?Last Taken ?Type atorvastatin 20 mg tablet mg 11/03/24 Unknown History blood-glucose sensor (Dexcom G7 11/03/24 02/04/25 Unk nown History Sensor device) blood-glucose transmitter (Dexcom 11/03/24 02/04/25 U nknown History G6 Transmitter device) insulin lispro 100 unit/mL 11/03/24 Unknown History subcutaneous solution (Humalog U-100 Insulin) metoclopramide HCl 10 mg tablet mg 11/03/24 Unknown H istory pantoprazole 40 mg tablet,delayed mg PO 11/03/24 Unkn own History release erythromycin ethylsuccinate 400 12/22/24 Unknown His tory mg/5 mL oral powder for suspension diphenhydramine HCl 25 mg capsule mg 02/04/25 Unknown History (Banophen) glucagon 1 mg/0.2 mL subcutaneous mg subcut 02/04/25 Unknown History auto-injector (Gvoke HypoPen 2-Pack) Allergies Allergy/AdvReac Type Severity Reaction Status Date / Time haloperidol (From Haldol) AdvReac Severe Other Verified 02/04/25 10:41 [facility] Past Medical History Medical History Gastroparesis Elevated cholesterol Type 1 diabetes Surgical History Surgical History History of cholecystectomy Family History Family History Mother Family history non-contributory Social History Social History Smoking status: Never smoker Alcohol intake: never Substance use: current Substance use type: marijuana Living arrangements: with family Gender identity (if verbalized by the patient): Male Comments At time of signature, agree with nursing past medical, surgical, social and family history. There is no relevant family history pertinent to the presenting complaint. Exam Narrative: GENERAL: This is a well-nourished, well-developed patient, in no apparent distress. HEAD: normocephalic, atraumatic. EYES: PERRL. Sclera clear/white. Vision is grossly intact. EARS: External ears normal NOSE: External nose normal NECK: Neck supple, non-tender without lymphadenopathy, masses or thyromegaly. CARDIOVASCULAR: Regular rate and rhythm without murmurs, gallops, or rubs. RESPIRATORY: Clear to auscultation. Breath sounds equal bilaterally. No wheezes, rales, or rhonchi. GASTROINTESTINAL: Abdomen soft, non-tender, nondistended. Bowel sounds are active. No hepato-splenomegaly, or palpable masses. No guarding. SKIN: warm, Dry, intact with no suspicious lesions or rash, good texture and turgor. NEURO: awake, alert, and oriented to person, place and time. There were no obvious focal neurologic abnormalities. EXTREMITIES: No joint tenderness, effusion, or edema noted. Course Course Level of Care: Express Care Visit Vital Signs Vital signs: Vital Signs Temperature 36.5 C 03/26/25 08:31 Pulse Rate 70 03/26/25 08:31 Respiratory Rate 16 03/26/25 08:31 Blood Pressure 141/96 H 03/26/25 08:31 Pulse Oximetry 100 03/26/25 08:31 Oxygen Delivery Room Air 03/26/25 08:31 Temperature 36.5 C 03/26/25 08:31 Pulse Rate 70 03/26/25 08:31 Respiratory Rate 16 03/26/25 08:31 Blood Pressure 141/96 H 03/26/25 08:31 Pulse Oximetry 100 03/26/25 08:31 Oxygen Delivery Room Air 03/26/25 08:31 Reviewed MDM - Abdominal Pain MDM Narrative Medical decision making narrative: pt as baseline for gastroparesis symptoms. is waiting on new medication to be approved by insurance. Will call his GI specialist for any worsening of symptoms. just here for work note. Discharge Plan Discharge Clinical Impression: Nausea & vomiting, Gastroparesis Patient Disposition: Home Condition: Stable Instructions: Gastroparesis (ED) Additional Instructions: Drink at least 64 ounces of water a day to prevent dehydration. See your GI specialist as needed. If you have severe pain, concern for dehydration go to the ER. Patient Language: Yakut Prescriptions: No Action ondansetron 4 mg tablet,disintegrating 4 mg PO Q6H PRN (Reason: nausea and vomiting) Qty: 14 0RF dicyclomine 20 mg tablet 20 mg PO Q6-8H PRN (Reason: abdominal cramping) Qty: 20 0RF ondansetron 4 mg tablet,disintegrating 4 mg PO Q8H PRN (Reason: nausea and vomiting) Qty: 20 0RF diphenhydramine HCl [Banophen] 25 mg capsule Gvoke HypoPen 2-Pack 1 mg/0.2 mL auto-injector SUBCUT atorvastatin 20 mg tablet pantoprazole 40 mg tablet,delayed release (DR/EC) PO insulin lispro [Humalog U-100 Insulin] 100 unit/mL solution Patient Comments: insulin pump metoclopramide HCl 10 mg tablet (DME) Dexcom G7 Sensor Device MISCELLANEOUS (DME) Dexcom G6 Transmitter Device MISCELLANEOUS erythromycin ethylsuccinate 400 mg/5 mL suspension for reconstitution Follow-up/Referrals: Les,REEMA Arizmendi [Primary Care Provider] Stand Alone Forms: Work/School Release IP Time of Disposition: 08:47
--- OUTSIDE RECORDS SUMMARY | 2025-03-26 08:40 | XMS_ITS | Encounter Summary ---
Author Organization [facility] Address [address] [place] [address] Phone Care Team Providers Care Marketing Rotation Associate Name Role Phone Prashanth Saldana Primary Care Provider [phone] Heidi Swift MD Unavailable Reason for Visit * Reason Comments Medication Refill Encounter Details Date Type Department Care Team (Late st Contact Info) Description 08/28/2021 Refill [facility] - Endocrinology - [place] [address] [place] [address] Heidi Swift MD [address] [address] Medication Refill Social History Tobacco [...] Coronavirus / COVID-19? Yes 08/01/2021 9:49 AM MARBLEIZER documented as of this encounter Miscellaneous Notes * Telephone Encounter - Eli Jones RN - 08/28/2021 9:00 AM MARBLEIZER Requested Prescriptions Pending Prescriptions Disp Refills ??? insulin lispro (HumaLOG) 100 UNIT/ML Solution [Pharmacy Med Name: HUMALOG 100 UNIT/ML VIAL] 30 mL 0 Sig: UP TO 100 UNITS/DAY PER INSULIN PUMP SETTINGS Next appt: 09/12/2021 LEIZER documented in this encounter Plan of Treatment Not on file documented as of this encounter Visit Diagnoses Not on filedocumented in this encounter Additional Health Concerns Infection Onset Date Last Indicated Resolved Time COVID - 19 04/13/2022 04/13/2022 04/13/2022 10:4 2 AM CDT COVID - 19 05/17/2022 05/17/2022 05/27/2022 12:1 6 AM CDT Respiratory Rule-Out 05/17/2022 05/17/2022 022 12:16 AM MARBLEIZER COVID - 19 06/27/2022 06/27/2022 07/07/2022 12:1 6 AM MARBLEIZER Influenza 06/27/2022 06/27/2022 07/04/2022 12:1 6 AM MARBLEIZER COVID - 19 04/05/2024 04/05/2024 04/05/2024 10:2 0 PM CDT COVID - 19 10/16/2024 10/16/2024 10/16/2024 7:05 AM CDT documented as of this encounter Care Teams Marketing Rotation Associate Relationship Specialty Start Date End Date Prashanth Saldana PAC [address] [place] [id number] PCP - General Physician Conveyor System Dispatcher 04/03/19 Heidi Swift MD [address] [id number] Consulting Physician Endocrinology 08/09/20 09/23/24 documented as of this encounter
--- OUTSIDE RECORDS SUMMARY | 2025-03-26 08:40 | XMS_ITS | Clinical Summary ---
Author Organization [facility] Address [address] [place] [address] Phone Care Team Providers Care Track Mechanic Name Role Phone Prashanth Saldana Primary Care Provider [phone] Allergies Active Allergy Reactions Criticality Noted Date [...] 1 Active Insulin Pen Needle (TechLite Pen Christmas) 31G X 8 MM Misc USE TO [...] 10 Tablet 2 Active Continuous Blood Gluc Nurse Monitoring (Dexcom G6 Nurse Monitoring) Device USE TO CHECK GLUCOSE 4X DAILY. [...] 12/24/2024 10:29 AM CDT Emergency [facility] Emergency [address] [place] [address] Forest Guerrero MD Dehydration Discharge Disposition: Discharged to home or Selfcare 12/24/2024 Travel from Last 3 Months Immunizations Immunization Administration Dates Next Due [id number] kiersten MCV4, Unspecif ied Formulation 04/17/2012 DTAP [...] drink = 0.6 oz pur e alcohol) [facility] Utilities Answer Date Recorded In the past 12 months has th e [employer], gas, oil, or water [employer] threatened to shut off services in your [...] week 10/16/2024 How often do you attend [facility] or [facility] services? Never 10/16/2024 Do you belong to [...] medical care, and heating? Somewhat hard 10/16/2024 [facility] Daphne of Occupat ional Health - Occupational Stress [...] any time in the past 12 m [facility], were you homeless or living in a [...] Screening 07/10/2023 07/10/2022, 10/2018 Influenza Immunization (#1) 03/22/202504/21, 05/27/2014, 04/17/2012, Additional history exists SARS-COV-2 Immunization ( season) 2025 Diabetes: Hemoglobin A1c 06/02/2025 025, 10/16/2024, 09/03/2024, [...] POCT GLUCOSE STAT 12/24/2024 9:17 AM CDT HEMOGLOBIN A1C W/ ESTIMATED GLUCOSE STAT 10/16/2024 2:39 AM CDT LIPID PANEL Routine 06/24/2019 5:44 AM RESIDENT CARE TECHNICIAN from Last 3 Months or Most Recently Relevant to Health Maintenance Results * (ABNORMAL) Urinalysis w/ Reflex (12/24/2024 9:42 AM CDT) SPECIFIC GRAVITY 1.025 1.003 - 1.030 12/24/2024 10:09 AM CDT [facility] URINE PH 6.0 5.0 - 9.0 12/24/2024 10:09 AM CDT [facility] WBC ESTERASE 25 /ul(A) Negative 12/24/2024 10:09 AM CDT [facility] NITRITE Negative Negative 12/24/2024 10:09 AM CDT [facility] PROTEIN, RANDOM URINE 500 mg/dL(A) Negative 12/24/2024 10:09 AM CDT [facility] URINE GLUCOSE, QUAL 100 mg/dL(A) Negative 12/24/2024 10:09 AM CDT [facility] URINE KETONES 15 mg/dL(A) Negative 12/24/2024 10:09 AM CDT [facility] UROBILINOGEN 1 mg/dL(A) Normal mg/dL 12/24/2024 10:09 AM T [facility] URINE BLOOD 10 /uL(A) Negative oumar/ul 12/24/2024 10:09 AM CDT [facility] URINALYSIS COLOR Diane 12/25/19 25 10:09 AM CDT [facility] URINALYSIS CLARITY Slightly Cloudy 12/24/2024 10:09 AM CDT [facility] WBC (Urine) 0-5 Negative, 0-5 /hpf 12/24/2024 10:09 AM T [facility] URINE RBC'S 6-10(A) Negative, 0-2 /hpf 12/24/2024 10:09 AM CDT [facility] EPITHELIAL CELLS Negative /lpf 12/25/19 25 10:09 AM CDT [facility] BACTERIA, URINE Few(A) Negative /hpf 12/24/2024 10:09 AM CDT [facility] URINE MUCOUS Many 12/24/2024 10:09 AM CDT [facility] CASTS 5-10/LPF Hyaline Casts(A) Negative, 0-2/lpf, 3-5/lpf, 6-10/lpf, 11-20/lpf, >20/lpf /lpf 12/24/2024 10:09 AM [facility] Urine URINE SPECIMEN / Unknown Non-Phlebotomy Collection / Unknown 12/24/2024 9:42 AM CDT 12/24/2024 9:49 AM CDT us Forest Guerrero MD URINE ORDERABLES Final Res ult [facility] [address] [place] [address] * (ABNORMAL) CBC with Auto Differential (12/24/2024 9:39 AM CDT) WBC 9.80 4.00 - 12.00 10(3)/mcL 12/24/2024 9:47 AM CDT [facility] RBC 5.53 4.40 - 5.80 10(6)/[facility] 12/24/2024 9:47 AM CDT [facility] HEMOGLOBIN (HGB) 15.6 13.0 - 16.5 g/dL 12/24/2024 9:47 AM CDT [facility] HEMATOCRIT (HCT) 47.0 38.0 - 50.0 % 12/24/2024 9:47 AM CDT [facility] MCV 85.0 82.0 - 96.0 fL 12/24/2024 9:47 AM CDT [facility] MCH 28.2 26.0 - 32.0 pg 12/24/2024 9:47 AM CDT [facility] MCHC 33.2 31.0 - 36.0 g/dL 12/24/2024 9:47 AM CDT [facility] PLATELET COUNT 373 140 - 440 10(3)/[facility] 12/24/2024 9:47 AM CDT [facility] RDW 12.9 11.8 - 15.5 % 12/24/2024 9:47 AM CDT [facility] MPV 10.2 8.0 - 12.6 fL 12/24/2024 9:47 AM CDT [facility] NEUTROPHILS 71.1(H) 40.0 - 68.0 % 12/24/2024 9:47 AM CDT [facility] LYMPHOCYTES 20.4 19.0 - 49.0 % 12/24/2024 9:47 AM CDT [facility] MONOCYTES 8.2 3.0 - 13.0 % 12/24/2024 9:47 AM CDT [facility] EOSINOPHILS 0.0 0.0 - 8.0 % 12/24/2024 9:47 AM CDT [facility] BASOPHILS 0.3 0.0 - 1.0 % 12/24/2024 9:47 AM CDT [facility] ABSOLUTE NEUTROPHILS 6.97(H) 1.40 - 5.30 10(3)/[facility] 12/24/2024 9:47 AM CDT [facility] ABSOLUTE LYMPHOCYTES 2.00 0.90 - 3.30 10(3)/[facility] 12/24/2024 9:47 AM CDT [facility] ABSOLUTE MONOCYTES 0.80 0.10 - 0.90 10(3)/[facility] 12/24/2024 9:47 AM CDT [facility] ABSOLUTE EOSINOPHIL 0.00 0.00 - 0.50 10(3)/[facility] 12/24/2024 9:47 AM CDT [facility] ABSOLUTE BASOPHILS 0.03 0.00 - 0.10 10(3)/[facility] 12/24/2024 9:47 AM CDT [facility] NRBC PER 100 WBC 0 12/25/19 9:47 AM CDT [facility] Blood Venipuncture / Unknown 12/24/2024 9:39 AM CDT 12/24/2024 9:39 AM CDT us Forest Guerrero MD HEMATOLOGY ORDERABLES Stephie l Result [facility] [address] [place] [address] * Magnesium Level (12/24/2024 9:39 AM CDT) Pathologist [facility] MAGNESIUM 1.9 1.6 - 2.6 mg/dL 12/24/2024 10:09 AM CDT [facility] Blood Venipuncture / Unknown 12/24/2024 9:39 AM CDT 12/24/2024 9:39 AM CDT Forest Guerrero MD CHEMISTRY ORDERABLES Final Result Performing Organization Address City/[facility]/ZIP Co de Phone Number [facility] [address] [place] [address] * (ABNORMAL) Lipase (12/24/2024 9:39 AM CDT) LIPASE 6(L) 8 - 78 U/L 12/24/2024 10:09 AM CDT [facility] Blood Venipuncture / Unknown 12/24/2024 9:39 AM CDT 12/24/2024 9:39 AM CDT Forest Guerrero MD CHEMISTRY ORDERABLES Final Result Performing Organization Address [facility]/ZIP Co de Phone Number [facility] [address] [place] [address] * (ABNORMAL) CMP (12/24/2024 9:39 AM CDT) SODIUM 140 136 - 145 mmol/L 12/24/2024 10:09 AM CDT [facility] POTASSIUM 3.8 3.5 - 5.1 mmol/L 12/24/2024 10:09 AM CDT [facility] CHLORIDE 102 98 - 107 mmol/L 12/24/2024 10:09 AM CDT [facility] CO2, VENOUS 21(L) 22 - 30 mmol/L 12/24/2024 10:09 AM CDT [facility] ANION GAP 20.8(H) <18.0 mmol/L 12/24/2024 10:09 AM CDT [facility] GLUCOSE 204(H) 70 - 99 mg/dL 12/24/2024 10:09 AM [facility] BUN 27(H) 9 - 21 mg/dL 12/24/2024 10:09 AM [facility] CREATININE, BLOOD 1.31(H) 0.70 - 1.30 mg/dL 12/24/2024 10:09 AM [facility] BUN/CREATININE RATIO 21(H) 12 - 20 ratio 12/24/2024 10:09 AM [facility] TOTAL PROTEIN 8.4(H) 6.0 - 8.0 g/dL 12/24/2024 10:09 AM [facility] ALBUMIN 5.1(H) 3.5 - 5.0 g/dL 12/24/2024 10:09 AM [facility] A/G RATIO 1.5 1.0 - 2.2 12/24/2024 10:09 AM [facility] CALCIUM 9.7 8.7 - 10.5 mg/dL 12/24/2024 10:09 AM [facility] T BILI 1.1 0.2 - 1.2 mg/dL 12/24/2024 10:09 AM [facility] SGOT (AST) 22 <43 U/L 12/24/2024 10:09 AM [facility] SGPT (ALT) 16 <56 U/L 12/24/2024 10:09 AM [facility] ALKALINE PHOSPHATASE 80 40 - 150 U/L 12/24/2024 10:09 AM [facility] GFR, ESTIMATED >60 >=60 12/24/2024 10:09 AM [facility] Comment: Creatinine Clearance is the preferred criteria for selecting drug dose adjustments in renally impaired patients. The GFR is provided as additional pertinent clinical information. GFR is reported in mL/min/1.73 sq m. Calculation based on the Chronic Kidney Disease Epidemiology Collaboration (CKD- EPI) equation refit without adjustment for race. GFR, EST. >60 >=60 025 10:09 AM [facility] GFR, EST. NONAFRICAN >60 >=60 12/24/2024 10:09 AM CDT [facility] Blood Venipuncture / Unknown 12/24/2024 9:39 AM CDT 12/24/2024 9:39 AM CDT Forest Guerrero MD CHEMISTRY ORDERABLES Final Result Performing Organization Address [facility] Co de Phone Number [facility] [address] [place] [address] * Gold Top Tube (12/24/2024 9:20 AM CDT) Blood No Phlebotomy Charged / Unknown 12/24/2024 9:20 AM CDT 12/24/2024 9:38 AM CDT Forest Guerrero MD CHEMISTRY ORDERABLES Final Result Performing Organization Address [facility] de Phone Number [facility] [address] [place] [address] * Blue Top Tube (12/24/2024 9:20 AM CDT) Blood No Phlebotomy Charged / Unknown 12/24/2024 9:20 AM CDT 12/24/2024 9:38 AM CDT Forest Guerrero MD HEMATOLOGY ORDERABLES Stephie l Result Performing Organization Address [facility] de Phone Number [facility] [address] [place] [address] * (ABNORMAL) POCT Glucose (12/24/2024 9:17 AM CDT) GLUCOSE,BEDSID E POCT 191(H) 70 - 99 mg/dL 12/24/2024 9:23 AM CDT [facility] Comment:Patient RN Performed Blood 12/24/2024 9:17 AM CDT 12/24/2024 9:23 AM CDT us None Provider POINT OF CARE TESTING Final Resu lt Performing Organization Address City/[facility]/ZIP Co de Phone Number [facility] [address] [place] [address] * (ABNORMAL) Hemoglobin A1C w/ Estimated Glucose (10/16/2024 2:39 AM CDT) HGB-A1C 7.9(H) 4.0 - 6.0 % 10/16/2024 6:43 AM CDT [facility] Est Average Glucose 180.0 mg/dL 10/16/2024 6:43 AM CDT [facility] Blood Venipuncture / Unknown 10/16/2024 2:39 AM CDT 10/16/2024 2:46 AM CDT Narrative [facility] - 10/16/2024 6:43 AM CDT HEMOGLOBIN A1C: DIABETIC PATIENTS: WELL-CONTROLLED: 6.2 - 7.0 INTERMEDIATE WELL-CONTROLLED: 7.0 - 9.0 POORLY-CONTROLLED: >9.0 Specimens containing greater than 5% of Hemoglobin F may result in lower than expected % HbA1C results. us Sharita Kahn APRN, VASCULAR ULTRASOUND TECHNICIAN CHEMISTRY ORDERABLES Stephie l Result Performing Organization Address [facility] Co de Phone Number [facility] [address] [place] [address] * (ABNORMAL) Lipid Panel AM (06/24/2019 5:44 AM RESIDENT CARE TECHNICIAN) CHOLESTEROL 141 <=200 mg/dL 06/24/2019 1:58 PM RESIDENT CARE TECHNICIAN [facility] TRIGLYCERIDES 158(H) <150 mg/dL 06/24/2019 1:58 PM RESIDENT CARE TECHNICIAN [facility] HDL CHOLESTEROL 30.4(L) >40 mg/dL 1:58 PM RESIDENT CARE TECHNICIAN [facility] LDL 79 5 - 130 mg/dL 06/24/2019 1:58 PM RESIDENT CARE TECHNICIAN [facility] VLDL 32 5 - 55 mg/dL 06/24/2019 1:58 PM RESIDENT CARE TECHNICIAN [facility] CHOL/HDL RATIO 4.6(H) 0.0 - 4.4 06/24/2019 1:58 PM RESIDENT CARE TECHNICIAN [facility] NON-HDL CHOLESTEROL 110.6 <130 mg/dL 06/24/2019 1:58 PM RESIDENT CARE TECHNICIAN [facility] LIPID FASTING 06/24/2019 1:58 PM RESIDENT CARE TECHNICIAN [facility] Blood specimen (specimen) BLOOD SPECIMEN / Unknown Venipuncture / Unknown 06/24/2019 5:44 AM RESIDENT CARE TECHNICIAN 06/24/2019 1:10 PM RESIDENT CARE TECHNICIAN Toni Orourke MD CHEMISTRY ORDERABLES Fin al Result [facility] [address] [place] [address] from Last 3 Months or Most Recently [...] measures to stabilize the patient. Care Teams Track Mechanic Relationship Specialty Start Date End Date Prashanth Saldana, LINNETTE [address] [place] [id number] PCP - General Physician Silk Screen Layout Drafter 04/03/19
--- OUTSIDE RECORDS SUMMARY | 2025-03-26 08:40 | XMS_ITS | Encounter Summary ---
Author Organization [facility] Address [address] [place] [address] Phone Care Team Providers Care Safety Lead Name Role Phone Cristobal Aguilera MD Primary Care Provider Con Beltrán MD Unavailable [phone] Azra Yarbrough RN Unavailable [phone] Cristobal Aguilera MD Primary Care Provider Prashanth Saldana Primary Care Provider [phone] [place] MD Unavailable [phone] Reason for Visit * Reason Onset Date Comments left msg. for family to c/b and sched. 3mo appt. 03/12/2018 Encounter Details Date Type Department Care Team (Late st Contact Info) Description 03/12/2018 Telephone [facility] Pediatric Endocrinology [facility] 2nd [place] [address] [place] [address] Ngoc Lee left msg. for family to c/b and sched. 3mo appt. Social History Tobacco Use Types Packs/Day Years Used Date Smoking Tobacco: Never Alcohol Use Standard Drinks/Week Comments No 0 (1 standard drink = 0.6 oz pur e alcohol) Sex and Gender Information Value Date Recorded Sex Assigned at Not on file Legal Sex Male 4:12 AM PRACTICING DERMATOLOGIST Gender Identity Not on file Sexual Orientation [...] COVID: Suspected 05/26/2020 05/26/2020 05/27/2020 10:23 AM PRACTICING DERMATOLOGIST Respiratory Infection (ALLIE), contact + droplet Comment:IP Review - There is a significant event note with an alternative diagnosis and at least one negative COVID-19 test documented in Epic. Patient meets criteria for COVID-19 isolation discontinuation. ` Automatically added due to negative COVID-19 result. 05/27/2020 05/27/2020 05/27/2020 12:46 PM PRACTICING DERMATOLOGIST COVID: Suspected 07/04/2020 07/04/2020 07/04/2020 6:02 PM PRACTICING DERMATOLOGIST Respiratory Infection (ALILE), contact + droplet Comment:Patient classified as Low Risk for COVID-19 and has one negative COVID-19 test. Patient meets criteria for COVID-19 isolation discontinuation 07/04/2020 [place] Automatically added due to negative COVID-19 result. 07/04/2020 07/04/2020 07/04/2020 8:[address] COVID: Suspected 08/03/2020 08/03/2020 08/03/2020 10:50 PM PRACTICING DERMATOLOGIST Respiratory Infection (ALLIE), contact + droplet Comment:08/04/2020 [...] documented as of this encounter Care Teams Safety Lead Relationship Specialty Start Date End Date Cristobal Aguilera MD PCP - General 10/19/16 11/15/19 Cristobal Aguilera MD PCP - General 11/16/19 05/24/20 Prashanth Saldana [place] [address] [place] [address] PCP - General Family Practice 05/25/20 Con Beltrán MD Referring Physician Pediatric Endocrinology 12/20/18 Azra Yarbrough, RN [address] [address] [facility] Outpatient French Folding Machine Operator 11/16/19 12/15/19 [place] MD [address] [place] [address] Consulting Physician Gastroenterology 04/19/21 documented as of this encounter
--- OUTSIDE RECORDS SUMMARY | 2025-03-26 08:40 | XMS_ITS | Clinical Summary ---
Author Organization [facility] Address [address] [facility] [place] [address] Care Team Providers Care R&D Engineer Name Role Phone Unavailable Primary Care Provider Unavailabl e Source Comments [facility],non-owned Affiliates and Associated Physician Practices is amultiple site organization consisting of ambulatory clinics and hospital sitesin [place], [place], [place] and [place]. This disclosure is being madepursuant to the Care Everywhere program and may not contain all information available regarding this patient. Last updated 18.[facility] Allergies No known active allergies Medications * [...] - 105 mg/dL 04/02/2020 3:39 AM CDT [facility] Sodium 137 136 - 145 mmol/L 04/02/2020 3:39 AM CDT [facility] Potassium 3.0(L) 3.5 - 5.1 mmol/L 04/02/2020 3:39 AM CDT [facility] Chloride 104 98 - 107 mmol/L 04/02/2020 3:39 AM CDT [facility] CO2 20(L) 23 - 31 mmol/L 04/02/2020 3:39 AM CDT [facility] Calcium 9.0 8.4 - 10.4 mg/dL 04/02/2020 3:39 AM CDT [facility] Anion Gap 13 8 - 16 mmol/L 04/02/2020 3:39 AM CDT [facility] BUN 6(L) 8.9 - 20.6 mg/dL 04/02/2020 3:39 AM CDT [facility] Creatinine 0.86 0.72 - 1.25 mg/dL 04/02/2020 3:39 AM CDT [facility] eGFR by MDRD >60 >60 mL/min/1.7 3m2 04/02/2020 3:39 AM CDT [facility] eGFR by MDRD >60 >60 mL/min/1.7 3m2 04/02/2020 3:39 AM CDT [facility] Blood BLOOD SPECIMEN / Unknown Lab Venipuncture / Unknown 04/02/2020 3:06 AM CDT 04/02/2020 3:20 AM CDT Robinson Wilkins MD LAB - CHEMISTRY ORDERABLES F inal Result [facility] [address] [place] [address] * (ABNORMAL) HEMOGLOBIN A1C (04/01/2020 12:04 PM CDT) Hemoglobin A1c 8.9(H) 4.2 - 5.6 % 04/01/2020 1:31 PM CDT [facility] Estimated Average Glucose 209 mg/dL 04/01/2020 1:31 PM CDT [facility] Blood BLOOD SPECIMEN / Unknown Venipuncture / Unknown 04/01/2020 12:04 PM CDT 04/01/2020 12:08 PM CDT Narrative [facility] - 04/01/2020 1:31 PM CDT The following cutoff levels are recommended by [place] [employer]. A1c > 6.5% : considered [...] LAB - CHEMISTRY ORDERABLES F inal Result [facility] [address] [place] [address] from Last 3 Months or Most Recently Relevant to Health Maintenance [place] [address] [place] [address] [facility] Advance Directives * Full Code (Latest Code Status on File) Date Activated Date Inactivated Comments 04/01/2020 1:52 PM 04/02/2020 1:54 PM
--- OUTSIDE RECORDS SUMMARY | 2025-03-26 08:40 | XMS_ITS | Encounter Summary ---
Author Organization [facility] Address [address] [place] [address] Phone Care Team Providers Care Car Repairer Pullman Name Role Phone Prashanth Saldana Primary Care Provider [phone] Heidi Swift MD Unavailable Reason for Visit * Reason Comments Medication Refill Encounter Details Date Type Department Care Team (Late st Contact Info) Description 07/24/2021 Refill [facility] - [facility] - [place] [address] [place] [address] Heidi Swift MD [address] [address] Medication Refill Social History Tobacco [...] COVID-19? No / Unsure 07/07/2021 3:14 PM STEEL CHIPPER documented as of this encounter Miscellaneous Notes * Telephone Encounter - Eli Jones RN - 07/25/2021 8:10 AM STEEL CHIPPER Requested Prescriptions Pending Prescriptions Disp Refills ??? Continuous Blood Gluc Sensor (Dexcom G6 Sensor) Misc [Pharmacy Med Name: DEXCOM G6 SENSOR] Sig: CHANGE SENSOR EVERY 10 DAYS. Next appt: 08/01/2021 L CHIPPER documented in this encounter Plan of Treatment [...] Respiratory Rule-Out 05/17/2022 05/17/2022 022 12:16 AM STEEL CHIPPER COVID - 19 06/27/2022 06/27/2022 07/07/2022 12:1 6 AM STEEL CHIPPER Influenza 06/27/2022 06/27/2022 07/04/2022 12:1 6 AM STEEL CHIPPER COVID - 19 04/05/2024 04/05/2024 04/05/2024 10:2 0 PM CDT COVID - 19 10/16/2024 10/16/2024 10/16/2024 7:05 AM CDT documented as of this encounter Care Teams Car Repairer Pullman Relationship Specialty Start Date End Date Prashanth Saldana [facility] [address] [place] [address] PCP - General Physician Rn Mobile 04/03/19 Heidi Swift MD [address] [address] Consulting Physician Endocrinology 08/09/20 09/23/24 documented as of this encounter
--- OUTSIDE RECORDS SUMMARY | 2025-03-26 08:40 | XMS_ITS | Encounter Summary ---
Author Organization [facility] Address [address] [place] [address] Phone Care Team Providers Care Order Runner Name Role Phone Prashanth Saldana Primary Care Provider [phone] Heidi Swift MD Unavailable Reason for Visit * Reason Comments Medication Refill Encounter Details Date Type Department Care Team (Late st Contact Info) Description 12/27/2021 Refill [facility] - [facility]ocr[facility]ology - [place] [address] [place] [address] Heidi Swift MD [address] [address] Medication Refill Social History [...] Notes * Telephone Encounter - Saadia Lawson, [facility] - 12/29/2021 11:37 AM CDT Patient calling requesting refill of: Requested Prescriptions Pending Prescriptions Disp Refills ??? 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 [...] Respiratory Rule-Out 05/17/2022 05/17/2022 022 12:16 AM UTILIZATION REVIEW SPECIALIST COVID - 19 06/27/2022 06/27/2022 07/07/2022 12:1 6 AM UTILIZATION REVIEW SPECIALIST Influenza 06/27/2022 06/27/2022 07/04/2022 12:1 6 AM UTILIZATION REVIEW SPECIALIST COVID - 19 04/05/2024 04/05/2024 04/05/2024 10:2 0 PM CDT COVID - 19 10/16/2024 10/16/2024 10/16/2024 7:05 AM CDT documented as of this encounter Care Teams Order Runner Relationship Specialty Start Date End Date Prashanth Saldana PAC [address] [place] [id number] PCP - General Physician [employer] Helper 04/03/19 Heidi Swift MD #[id number] [id number] Consulting Physician Endocrinology 08/09/20 09/23/24 documented as of this encounter
--- OUTSIDE RECORDS SUMMARY | 2025-03-26 08:40 | XMS_ITS | Clinical Summary ---
Author Organization [facility] ospital Address [address] [place] [address] Care Team Providers Care Web Marketing Assistant Name Role Phone Con Beltrán MD Unavailable [phone] Prashanth Saldana Primary Care Provider [phone] Sidney Russell MD Unavailable [phone] Allergies Active Allergy Reactions Criticality Noted Date [...] OR DIRECTED 100 strip [address] (PROTONIX) 40 mg EC tablet Take 1 tablet (40 mg total) by mouth daily 024 Active atorvastatin (LIPITOR) 20 mg tablet Take 1 tablet (20 mg total) by mouth daily 025 Active simethicone (GAS-X) 125 mg capsule [...] ethylsuccinate (EES) suspension 400 mg/5 mLIndications:Gas troparesis TAKE 5 MLS 10-15 MINUTES BEFORE EATING 3 TIMES DAILY FOR 28 DAYS. 1500 mL 1 025 Active mirtazapine (REMERON) 15 mg tablet Take 1 tablet (15 mg total) by mouth nightly 30 tablet 3 025 Active prucalopride (Motegrity) 2 mg tabletIndications :chronic idiopathic constipation Take 1 tablet (2 mg total) by mouth daily 30 tablet 025 Active blood-glucose sensor (Dexcom G7 Sensor) device USE DIRECTED, CHANGE EVERY 10 DAYS 3 each 3 025 Active traMADoL (ULTRAM) 50 mg tablet Take 1 tablet (50 mg total) by mouth every 6 (six) hours as needed for pain for up to 15 days 15 tablet 024 2024 Discontinued(T herapy completed) blood-glucose sensor (Dexcom G7 Sensor) device USE DIRECTED, CHANGE EVERY 10 DAYS 3 each 3 025 2024 Discontinued prucalopride (Motegrity) 2 mg tablet Take 1 tablet (2 mg total) by mouth daily 30 tablet 3 025 2024 Discontinued(A lternate therapy) Active Problems Problem Noted Date Diagnosed Date [...] . Assessment & Plan (07/10/2022 9:22 AM MOVERS): This is a chronic condition which is not at goal. Unable to Download as he has a new pump and is not connected on [employer]. Type of insulin pump- tandem T slim [...] of less than 70. Encouraged to contact [employer] and have a new pump shipped Discussed [...] statin Assessment & Plan (07/10/2022 9:19 AM MOVERS): This is a chronic condition which is [...] G6 at home. He was seen in [facility], but missed appointment in the adult [...] prescribed. Assessment & Plan (08/04/2020 3:50 AM MOVERS): H/o pancreatitis attributed to hypertriglyceridemia. TGs 215 on 05/27/20. -Continue home fenofibrate and atorvastatin Resolved Problems Problem Noted Date Diagnosed Date Resolved Date Leukocytosis 04/18/2021 04/04/2022 Gallbladder sludge 04/05/2021 Marijuana abuse 04/05/2021 04/04/2022 JACK (acute kidney injury) ([facility]) 10/25/2020 04/04/2022 Diarrhea 10/25/2020 04/04/2022 Hypokalemia 08/04/2020 04/04/2022 Assessment & Plan (08/04/2020 3:59 AM MOVERS): K to 3.2 after hyperglycemia protocol s/p 40 mEq of IV K in ED. -CTM w/ BMP Nausea and vomiting 07/05/2020 04/04/20 22 Assessment & Plan (08/04/2020 4:10 AM MOVERS): Patient has chronic N/V, now presenting w/ 3 days of persistent N/V. No abdominal pain. Lipase 15 on presentation. +MJ use. DDx: cyclic vomiting vs. diabetic gastroparesis. -Zofran prn -Pepcid -Can trial Reglan -Encourage MJ cessation Assessment & Plan (07/05/2020 4:24 PM MOVERS): Etiology likely DKA. Other considerations are PUD [...] 04/04/2022 Assessment & Plan (07/05/2020 4:26 PM MOVERS): Etiology likely DKA. pH is 7.50 (alkalosis) [...] 04/04/2022 Assessment & Plan (08/04/2020 3:41 AM MOVERS): Patient multiple past hospitalizations for DKA, most recently in June presenting w/ DKA after 3 days of persistent N/V. BG was 338 w/ AG 18, bicarb 21, ketones 3.2. BG now in the 100s and AG close after hyperglycemia protocol. A1C 10.5 08/02/20. Is a patient of Dr. Swift at [facility] medical group in [place]. Last seen on 07/25 with plan for [...] f/u. Assessment & Plan (07/05/2020 4:21 PM MOVERS): DKA (ketones 1.4, BG 242, urine glucose [...] with diabetes mellitus due to underlying condition ([facility]) 04/04/2022 EKG abnormality 04/04/2022 Choledocholithiasis 04/04/20 Abdominal pain 04/04/2022 Encounters Date Type Department Care Team Description 03/17/20 25 Telephone [facility] Medicine Gastroenterology [address] [place] [address] Medical Office Building [address], [address] [place] [address] Francisca Hopkins, DENTON [employer] 03/17/20 25 Telephone [facility] Medicine Gastroenterology [address] [place] [address] Medical Office Building [address], [address] [place] [address] Francisca Hopkins RN [employer] Rx 03/14/20 25 Orders Only [facility] Gastroenterology at [address] [place] [address] Terrence Fitch MD 03/12/20 25 Telephone [facility] Medicine Gastroenterology [address] [place] [address] Medical Office Building [address], [address] [place] [address] Camila Cortes Scheduling Appointments (03/12Pt appt canceled per Dr. Rivera. Pt will callback when medication status ) 03/12/20 25 Telephone [facility] Gastroenterology [address] Medical [address], [address] [place] [address] Camila Cortes Pt Call (03/12 Pt grandmother called (Sylvie) wanted to inform Dr. Rivera that precribed med (motegrity) is requiring prior auth. Wanted to know if another medication can be prescribed or if 04/06 OV should be rescheduled if not approved in time. Msg Dr. Rivera ) 03/12/20 25 Telephone [facility] Gastroenterology at [address] [place] [address] Vanessa Kenney 03/08/20 25 Telephone [facility] Gastroenterology at [address] [place] [address] Alrfed Garcia MA 03/05/20 25 Telephone [facility] Gastroenterology at [address] [place] [address] Cristin Tejada LPN 03/05/20 25 Telephone [facility] Gastroenterology at [address] [place] [address] Alfred Garcia MA 03/04/20 25 Telephone [facility] Gastroenterology at [address] [place] [address] Alfred Garcia MA 03/02/20 25 Telephone [facility] Gastroenterology at [address] [place] [address] Alfred Garcia MA 03/01/20 25 Orders Only [facility] Gastroenterology at [address] [place] [address] Terrence Fitch MD 03/01/20 25 Telephone [facility] Gastroenterology at [address], [place] [address] Evelin Fischer MA 02/25/20 Telephone [facility] Gastroenterology [address] [facility] Medical Office Building [address], [address] [place] [address] Carmen Irving RN 02/24/20 8:45 AM CDT Office Visit [facility] Gastroenterology [address] [facility] 2nd Floor [address] [place] [address] Thierry Rivera MD Gastroparesis (Primary Dx) 02/11/20 Telephone [facility] Diabetes Endocrine Care at [address] [place] [address] Nay Alford NP 01/29/20 Telephone [facility] Gastroenterology at [address] [place] [address] Cristin Tejada LPN 01/29/20 Telephone [facility] Gastroenterology [address] [facility] Medical Office Building [address], [address] [place] [address] Carmen Irving RN IOV scheduling 01/27/20 1:30 PM CDT Office Visit [facility] Medical [facility] Gastroenterology at [address] [place] [address] Terrence Fitch MD Gastroparesis (Primary Dx); Gastroesophageal reflux disease without esophagitis; Marijuana use 01/27/20 10:00 AM CDT Office Visit [facility] Diabetes Endocrine Care at [address] [place] [address] Nay Alford, REYNA Type 1 diabetes mellitus with hyperglycemia (HCC) (Primary Dx); Hypoglycemia; Mixed hyperlipidemia; Tandem T slim Insulin pump in place; Gastroparesis 01/07/20 8:00 AM CDT Anesthesia Event [facility] [address] [place] [address] Ronaldo Jerome DO Entzeroth, Timothy, CRNA 06/18/20 25 8:00 AM CDT - 01/07/20 25 8:30 AM CDT Surgery [address] [address] Terrence Fitch MD Not Performed ESOPHAGOGASTRODUODENOSCOPY 01/07/20 25 7:27 AM CDT - 01/07/20 25 8:07 AM CDT Hospital Encounter [address] [address] Terrence Fitch MD Discharge Disposition: Discharge to home or self care 01/07/20 25 Telephone [facility] Gastroenterology at [address] [place] [address] Arin Fischer 01/02/20 Results Follow-Up [facility] Gastroenterology at [address] [place] [address] Peter Rivera NP [place] Gastric Emptying Study 12/31/19 25 10:13 AM CDT - 12/31/19 25 11:59 PM CDT Hospital Encounter [address] [address] Discharge Disposition: Discharge to home or self care 12/31/19 25 10:13 AM CDT - 12/31/19 25 11:59 PM CDT Hospital Encounter [address] [address] Discharge Disposition: Discharge to home or self care 12/31/19 25 10:13 AM CDT - 12/31/19 25 11:59 PM CDT Hospital Encounter [address] [address] Discharge Disposition: Discharge to home or self care 12/31/19 25 10:13 AM CDT - 12/31/19 25 11:59 PM CDT Hospital Encounter [address] [address] Discharge Disposition: Discharge to home or self care 12/31/19 25 10:13 AM CDT - 12/31/19 25 11:59 PM CDT Hospital Encounter [address] [address] Nausea and vomiting, unspecified vomiting type; Type 1 diabetes mellitus with hyperglycemia (HCC) Discharge Disposition: Discharge to home or self care 12/26/19 25 Telephone [facility] Gastroenterology at [address] [place] [address] Radhika Cunningham EGD Reschedule from Last 3 Months Surgical History Surgery Date Site/Laterality Comments ESOPHAGOGASTRODUODENOSCOPY 01/06/2025 Medical History Medical History Date Comments Type 1 diabetes mellitus Diabete s type 1; Comments: ALVAREZ 11/23/2015 - Hx [...] drink = 0.6 oz pur e alcohol) [facility] Utilities Answer Date Recorded In the past 12 months has th e electric, gas, oil, or water company threatened to shut off services in your home? No 12/02/2024 Social Connection and Isolation Panel Answer Date Recorded In a typical week, how many times do you talk on the phone with family, friends, or neighbors? More than three times a week 12/02/2024 How often do you get togethe r with friends or relatives? More than three times a week 12/02/2024 How often do you attend chur ch or yazdanism services? Never 12/02/2024 Do you belong to any clubs o r organizations such as anglican groups, unions, fraternal or athletic groups, or [...] on file Legal Sex Male 4:12 AM MOVERS Gender Identity Not on file Sexual Orientation Not on file Obstetrics History Last Filed Vital Signs Vital Sign Reading Time Taken Comments Blood Pressure 119/78 02/23/2025 8:51 AM CDT Pulse 65 02/23/2025 8:51 AM CDT Temperature 36.5 C (97.7 F) 02/23/2025 8:51 AM CDT Respiratory Rate 16 01/06/2025 7:35 AM CDT Oxygen Saturation 99% 02/23/2025 8:51 AM CDT Inhaled Oxygen Concentration - - Weight 73.1 kg (161 lb 3.2 oz) 02/23/2025 8:51 A M CDT Height 170.2 cm (5' 7) 01/26/2025 1:22 PM CDT Body Mass Index 25.25 01/26/2025 1:22 PM CDT Plan of Treatment Health Maintenance Due Date Last Done Comments Hepatitis C Screening 1999 Pneumococcal vaccine <65 (1 of 1 - PPSV23, PCV20, or PCV21) 2005 10/24/2000 Regular Well Visit/Exam 18-64 2017 [...] hyperglycemia (HCC) POCT GLUCOSE DEVICE Routine 01/06/2025 7:53 AM CDT NM GASTRIC EMPTYING STUDY Schedule Routine, Read Routine (OP Routine) 12/30/2024 2:53 PM CDT Nausea and vomiting, unspecified vomiting type Type 1 diabetes mellitus with hyperglycemia (HCC) EGFR STAT 12/02/2024 3:24 AM CDT HEMOGLOBIN A1C Add-On 11/30/2024 8:32 AM CDT LIPID PANEL Routine 10/27/2024 8:51 [...] - DEVICE Fin al Result [facility] ([place]) [facility] Department [place] [address] * NM Gastric Emptying Study [...] Shaquille Contreras M.D. LB: ISRA[place] Report ID: [id number] Reading Location: [place] [address] Procedure Note Shaquille Contreras MD - 12/30/2024 [...] Shaquille Contreras M.D. LB: LB Report ID: [id number] Reading Location: [place] [address] us Peter Rivera FOOD SERVICE ATTENDANT IMG NM PROCEDURES F inal Result * eGFR (12/02/2024 3:24 AM CDT) eGFR [...] BLOOD ORDERABLES Stephie l Result [facility]A [facility] ([place]) [address] [facility] Department of Laboratories [place], [place] [id number] * (ABNORMAL) Hemoglobin A1c (11/30/2024 8:32 AM CDT) Hgb A1C 8.1(H) 4.0 - 5.6 % Estimated Average Glucose 186 mg/dL [facility] ([place]) Comment: The ADA recommends reporting an estimated Average Glucose (eAG) with all Hemoglobin A1c results using the equation derived from a study of 507 normal and diabetic adults. Minority populations were underrepresented and children were not included. (Diabetes Care 31:8250-1982, 2008). The eAG is not equivalent to a fasting glucose. Blood 11/30/2024 8:32 AM CDT 11/30/2024 8:57 AM CDT Marcelina Cleaning MD LAB BLOOD ORDERABLES Stephie l Result [facility] [address] [facility] [place] [address] * Thyroid Function [place] (10/27/2024 8:51 AM CDT) TSH 1.51 0.30 - 4.20 mcIUnit/mL Blood 10/27/2024 8:51 AM CDT 10/27/2024 2:50 PM CDT Nay Alford NP LAB BLOOD ORDERABLES Final Resu lt Performing Organization Address [facility] de Phone Number ALBERTOMARIAN [address] [employer] [place] [address] * (ABNORMAL) Albumin Creatinine Ratio, Urine (10/27/2024 [...] Resu lt Performing Organization Address [facility] Co de Phone Number ALBERTOMARIAN [address] [employer] [place] [address] * (ABNORMAL) Lipid panel (10/27/2024 8:51 AM [...] BLOOD ORDERABLES Final Resu lt ALYSSA AHMADI [address] Department [place] [address] * DIABETES FOOT EXAM (04/08/2018) [facility] Diabetic Foot Exam Normal us Historical Provider HEALTH MAINTENANCE Final Result from Last 3 Months or Most Recently Relevant to Health Maintenance [place] [address] [place] [address] Advance Directives For more information, please contact: [phone] Documents on File Type Date Recorded Patient Jewel Bearing Turner Expl anation ADVANCE DIRECTIVE 05/26/2020 6:51 PM [...] 11:49 AM 10/18/2024 1:28 PM Care Teams Web Marketing Assistant Relationship Specialty Start Date End Date Prashanth Saldana PA [address] [place] [address] PCP - General Family Practice 05/25/20 Con Beltrán MD Referring Physician Pediatric Endocrinology 12/20/18 Sidney Russell MD [address] [place] [address] Consulting Physician Gastroenterology 04/19/21
--- OUTSIDE RECORDS SUMMARY | 2025-03-26 08:40 | XMS_ITS | Encounter Summary ---
Author Organization [facility] Address [address] [place] [address] Phone Care Team Providers Care Brokerage Coordinator Name Role Phone Prashanth Saldana Primary Care Provider [phone] Heidi Swift MD Unavailable Reason for Visit * Reason Comments Medication Refill Encounter Details Date Type Department Care Team (Late st Contact Info) Description 09/17/2021 Refill [facility] - Endocrinology - [place] [address] [place] [address] Heidi Swift MD [address] [address] Medication Refill Social History Tobacco [...] Eli Jones RN - 09/19/2021 3:39 PM BURLAP ROLL COVERER Requested Prescriptions Pending Prescriptions Disp Refills ??? Continuous Blood Gluc Transmit (Dexcom G6 Transmitter) Misc [Pharmacy Med Name: DEXCOM G6 TRANSMITTER] 3 Si EACH BY DOES NOT APPLY ROUTE EVERY 90 DAYS. CHANGE SENSOR EVERY 90 DAYS. Next appt: Message sent to schedule follow up. AP ROLL COVERER documented in this encounter Plan of Treatment [...] Respiratory Rule-Out 05/17/2022 05/17/2022 022 12:16 AM BURLAP ROLL COVERER COVID - 19 06/27/2022 06/27/2022 07/07/2022 12:1 6 AM BURLAP ROLL COVERER Influenza 06/27/2022 06/27/2022 07/04/2022 12:1 6 AM BURLAP ROLL COVERER COVID - 19 04/05/2024 04/05/2024 04/05/2024 10:2 0 PM CDT COVID - 19 10/16/2024 10/16/2024 10/16/2024 7:05 AM CDT documented as of this encounter Care Teams Brokerage Coordinator Relationship Specialty Start Date End Date Prashanth Saldana PAC [address] [place] [address] PCP - General Physician Fur Feeder 04/03/19 Heidi Swift MD [address] [address] Consulting Physician Endocrinology 08/09/20 09/23/24 documented as of this encounter
== END 2025-03-26 08:49 | disposition home or self-care (01) ==
PROVIDERS: Emergency Provider Nurse Practitioner Family; PCP Physician Assistant
DX: E10.43 Type 1 diabetes mellitus with diabetic autonomic (poly)neuropathy (principal); K31.84 Gastroparesis
CPT/HCPCS: 99211; G0463

== ENCOUNTER 2025-03-29 10:14 | Emergency (ER) | payer OTHER, SELFPAY ==
[2025-03-29 10:18] VITALS: BP 154/80; PULSE 102; RESP 20; TEMP 37.1; O2SAT 100
--- NOTE | 2025-03-29 10:21 | ED.ABDPAIN ---
HPI - Abdominal Pain General Chief Complaint: Abdominal Pain Stated Complaint: gastroperisis Time Seen by Provider: 03/29/25 10:16 Source: patient Mode of arrival: ambulatory Limitations: no limitations History of Present Illness HPI narrative: Peter is a 24-year-old male type 1 diabetic patient presenting to the clinic today with complaints of gastroparesis flare. He was seen on March 26 for similar symptoms and requesting a work note. Patient frequently comes in for work notes due to his gastroparesis. He reports he was vomiting last night and had to call into work this morning. Currently has throbbing generalized abdominal pain rating it a 5/10. Liquid gelcap Advil normally takes care of his pain but he has not taken any this morning. Reports he did have 1 episode of emesis that had a small amount of blood in it. Has been taking his prescribed medications but has not taken them this morning. He has drank chocolate milk this morning and has kept that down. He is slightly nauseous at this time. Blood sugar is currently 280 on the patient's dexcom. Last bowel movement was yesterday-diarrhea. Has had DKA in the past and does not feel as though he is in DKA at this time. His work is requiring a work note. He denies any fevers, chills, body aches, or any urinary symptoms. Related Data Home Medications ?Medication ?Instructions ?Recorded ?Confirmed ?Last Taken ?Type blood-glucose sensor (Dexcom G7 11/03/24 02/04/25 Unknown History Sensor device) blood-glucose transmitter (Dexcom 11/03/24 02/04/25 Unknown History G6 Transmitter device) insulin lispro 100 unit/mL 11/03/24 Unknown History subcutaneous solution (Humalog U-100 Insulin) pantoprazole 40 mg tablet,delayed mg PO 11/03/24 Unknown History release glucagon 1 mg/0.2 mL subcutaneous mg subcut 02/04/25 Unknown History auto-injector (Gvoke HypoPen 2-Pack) mirtazapine 15 mg tablet mg 03/29/25 Unknown History Allergies Allergy/AdvReac Type Severity Reaction Status Date / Time haloperidol (From Haldol) AdvReac Severe Other Verified 02/04/25 10:41 Review of Systems Review of Systems: Pertinent positives per HPI. Patient denies any fever, chills, rash, headache, visual changes, dizziness, cough, runny nose, sore throat, shortness of breath, chest pain, palpitations, constipation, or any urinary issues. [facility] Past Medical History Medical History Gastroparesis Elevated cholesterol Type 1 diabetes Surgical History Surgical History History of cholecystectomy Family History Family History Mother Family history non-contributory Social History Social History Smoking status: Never smoker Alcohol intake: never Substance use: current Substance use type: marijuana Living arrangements: with family Gender identity (if verbalized by the patient): Male Comments At the time of my signature, I reviewed and agree with the nursing past medical, surgical, social, and family history. There is no relevant family history pertinent to the patient complaint. Exam Narrative: General: Well-developed, well nourished, in no apparent distress. Head: Normocephalic, atraumatic. Cardio: Regular rate and rhythm, s1 and s2 normal, no murmur appreciated. Resp: Clear to auscultation bilaterally, no rhonchi, rales, wheezing or rubs. Abdomen: Soft, pliable, bowel sounds present in all quadrants, generalized-tender to palpation, no organomegly, no CVAT tenderness. Course Course Emergency Course: Portions of this record may have been created with voice recognition software. Level of Care: Express Care Visit Vital Signs Vital signs: Vital Signs Temperature 37.1 C 03/29/25 10:18 Pulse Rate 102 H 03/29/25 10:18 Respiratory Rate 20 03/29/25 10:18 Blood Pressure 154/80 H 03/29/25 10:18 Pulse Oximetry 100 03/29/25 10:18 Oxygen Delivery Room Air 03/29/25 10:18 Temperature 37.1 C 03/29/25 10:18 Pulse Rate 102 H 03/29/25 10:18 Respiratory Rate 20 03/29/25 10:18 Blood Pressure 154/80 H 03/29/25 10:18 Pulse Oximetry 100 03/29/25 10:18 Oxygen Delivery Room Air 03/29/25 10:18 Vital signs reviewed MDM - Abdominal Pain MDM Narrative Medical decision making narrative: At the time of visit patient is sitting on the exam table. Patient appears to be nontoxic. Type 1 diabetic patient presenting to the clinic today with complaints of gastroparesis flare. He was seen on March 26 for similar symptoms and requesting a work note. Patient frequently comes in for work notes due to his gastroparesis. He reports he was vomiting last night and had to call into work this morning. Currently has throbbing generalized abdominal pain rating it a 5/10. Liquid gelcap Advil normally takes care of his pain but he has not taken any this morning. Reports he did have 1 episode of emesis that had a small amount of blood in it. Has been taking his prescribed medications but has not taken them this morning. He has drank chocolate milk this morning and has kept that down. He is slightly nauseous at this time. Blood sugar is currently 280 on the patient's dexcom. Last bowel movement was yesterday-diarrhea. Has had DKA in the past and does not feel as though he is in DKA at this time. His work is requiring a work note. He denies any fevers, chills, body aches, or any urinary symptoms. Discussed follow-up with his PCP/GI specialist for FMLA as patient has this chronic condition and he states he has not been at his job for 1 year so he does not qualify for FMLA at this time. On exam patient has MMM, slightly tachycardic with stable b/p. Patient has GI specialist at [facility]. Medications: Ondansetron 8 mg ODT-p.o. challenge Plan: Patient is a type 1 diabetic with gastroparesis. Blood sugar was 280 in the clinic today. Patient mucous membranes are moist. He is slightly tachycardic at 102 but his blood pressure is stable. When asked what patient's expectations were in the clinic today he is requesting a work note. He does not wish to have any testing or further evaluation at this time. States he is slightly nauseous so 8 mg of Zofran ODT was given. Patient go home and rest and take his medications. Contact his GI specialist/PCP for further instructions. Patient should go to the emergency room if he has any worsening of symptoms and he voiced understanding. Supportive measures were discussed with the patient and they voiced understanding discharge instructions and agrees to treatment plan. Return precautions reviewed Differential Diagnosis Differential diagnosis: Likely abdominal pain, acute appendicitis, calculus of kidney, constipation, diverticulitis, gastroenteritis, pancreatitis, small bowel obstruction and other (Gastroparesis) Discharge Plan Discharge Clinical Impression: Diabetic gastroparesis associated with type 1 diabetes mellitus Patient Disposition: Home Condition: Stable Instructions: Antibiotic Form, Diabetic Gastroparesis (DC), Abdominal Pain (ED) Additional Instructions: Zofran 8 mg ODT given in the clinic today Keep a tight control in your blood sugar Work note was given Increase fluids and stay well hydrated May take Tylenol or motrin as directed on bottle for pain/fever BRAT diet for diarrhea Clear liquids x 24 hours then advance as tolerated for nausea/vomiting Go to the ED if you develop a worsening in your condition- high fever not controlled by Tylenol or Motrin, confusion, dehydration, weakness, lethargy, shortness of breath, chest pain, or worsening of abdomen pain. Follow up with your PCP in 3-5 days if symptoms persist. Patient Language: French Prescriptions: No Action Gvoke HypoPen 2-Pack 1 mg/0.2 mL auto-injector SUBCUT pantoprazole 40 mg tablet,delayed release (DR/EC) PO insulin lispro [Humalog U-100 Insulin] 100 unit/mL solution Patient Comments: insulin pump (DME) Dexcom G7 Sensor Device MISCELLANEOUS (DME) Dexcom G6 Transmitter Device MISCELLANEOUS mirtazapine 15 mg tablet Follow-up/Referrals: Les,REEMA Arizmendi [Primary Care Provider] Stand Alone Forms: Work/School Release IP Time of Disposition: 10:34 Quality NIHSS Nursing Documentation ED NIHSS nursing documentation: reviewed/agree
[2025-03-29] MEDS: ONDANSETRON HCL ODT 4 MG TABLET 8 MG SUBLINGUAL (10:32)
--- OUTSIDE RECORDS SUMMARY | 2025-03-29 10:36 | XMS_ITS | Clinical Summary ---
Author Organization [facility] Address [address] [place] [address] Care Team Providers Care Rn Neonatal Name Role Phone Con Beltrán MD Unavailable [phone] Prashanth Saldana Primary Care Provider [phone] Sidney Russell MD Unavailable [phone] Allergies Active Allergy Reactions Criticality Noted Date [...] . Assessment & Plan (07/10/2022 9:22 AM NUCLEAR WEAPONS SPECIALIST): This is a chronic condition which is not at goal. Unable to Download as he has a new pump and is not connected on Prot-Onect. Type of insulin pump- tandem T slim [...] of less than 70. Encouraged to contact [employer] and have a new pump shipped Discussed [...] statin Assessment & Plan (07/10/2022 9:19 AM NUCLEAR WEAPONS SPECIALIST): This is a chronic condition which is [...] G6 at home. He was seen in [facility], but missed appointment in the [...] prescribed. Assessment & Plan (08/04/2020 3:50 AM NUCLEAR WEAPONS SPECIALIST): H/o pancreatitis attributed to hypertriglyceridemia. TGs 215 on 05/27/20. -Continue home fenofibrate and atorvastatin Resolved Problems Problem Noted Date Diagnosed Date Resolved Date Leukocytosis 04/18/2021 04/04/2022 Gallbladder sludge 04/05/2021 Marijuana abuse 04/05/2021 04/04/2022 JACK (acute kidney injury) ([facility]) 10/25/2020 04/04/2022 Diarrhea 10/25/2020 04/04/2022 Hypokalemia 08/04/2020 04/04/2022 Assessment & Plan (08/04/2020 3:59 AM NUCLEAR WEAPONS SPECIALIST): K to 3.2 after hyperglycemia protocol s/p 40 mEq of IV K in ED. -CTM w/ BMP Nausea and vomiting 07/05/2020 04/04/20 22 Assessment & Plan (08/04/2020 4:10 AM NUCLEAR WEAPONS SPECIALIST): Patient has chronic N/V, now presenting w/ 3 days of persistent N/V. No abdominal pain. Lipase 15 on presentation. +MJ use. DDx: cyclic vomiting vs. diabetic gastroparesis. -Zofran prn -Pepcid -Can trial Reglan -Encourage MJ cessation Assessment & Plan (07/05/2020 4:24 PM NUCLEAR WEAPONS SPECIALIST): Etiology likely DKA. Other considerations are PUD [...] 04/04/2022 Assessment & Plan (07/05/2020 4:26 PM NUCLEAR WEAPONS SPECIALIST): Etiology likely DKA. pH is 7.50 (alkalosis) [...] 04/04/2022 Assessment & Plan (08/04/2020 3:41 AM NUCLEAR WEAPONS SPECIALIST): Patient multiple past hospitalizations for DKA, most recently in June presenting w/ DKA after 3 days of persistent N/V. BG was 338 w/ AG 18, bicarb 21, ketones 3.2. BG now in the 100s and AG close after hyperglycemia protocol. A1C 10.5 08/02/20. Is a patient of Dr. Swift at [facility] medical group in [place]. Last seen on 07/25 with plan for [...] f/u. Assessment & Plan (07/05/2020 4:21 PM NUCLEAR WEAPONS SPECIALIST): DKA (ketones 1.4, BG 242, urine glucose [...] insulin regimen is needed at this time. assistant health educator have talked to Peter and family [...] with diabetes mellitus due to underlying condition ([facility]) 04/04/2022 EKG abnormality 04/04/2022 Choledocholithiasis 04/04/20 Abdominal pain 04/04/2022 Encounters Date Type Department Care Team Description 03/26/20 25 Telephone [facility] Gastroenterology [address] [place] [address] Office Building [address], [address] [place] [phone] Thierry Rivera MD Prior Auth 03/26/20 25 Telephone [facility] Gastroenterology [address] [place] [address] Medical Office Building [address], [address] [place] [phone] Carmen Irving RN [employer] 03/17/20 25 Telephone [facility] Gastroenterology [address] [place] [address] Office Building [address], [address] [place] [phone] Francisca Hopkins RN [employer] 03/17/20 25 Telephone [facility] Gastroenterology [address] [place] [address] Office [facility] [address], [address] [place] [phone] Francisca Hopkins RN [employer] Rx 03/14/20 25 Orders Only [facility] Gastroenterology at [address] [place] [address] Terrence Fitch MD 03/12/20 25 Telephone [facility] Gastroenterology [address] [facility] Medical Office Building 4, [address] [place] [phone] Camila Cortes Scheduling Appointments (03/12Pt appt canceled per Dr. Rivera. Pt will callback when medication status ) 03/12/20 25 Telephone [facility] Gastroenterology [address] [facility] Medical Office Building [address], [address] [place] [address] Camila Cortes Pt Call (03/12 Pt grandmother called (Toin) wanted to inform Dr. Rivera that precribed med (motegrity) is requiring prior auth. Wanted to know if another medication can be prescribed or if 04/06 OV should be rescheduled if not approved in time. Msg Dr. Rivera ) 03/12/20 25 Telephone [facility] Gastroenterology at [address] [place] [address] Vanessa Kenney 03/08/20 25 Telephone [facility] Gastroenterology at [address] [place] [address] Alfred Garcia MA 03/05/20 25 Telephone [facility] Gastroenterology at [address] [place] [address] Cristin Tejada LPN 03/05/20 25 Telephone [facility] Gastroenterology at [address] [place] [address] Alfred Garcia MA 03/04/20 25 Telephone [facility] Gastroenterology at [address] [place] [address] Alfred Garcia MA 03/02/20 25 Telephone [facility] Gastroenterology at [address] [place] [address] Alfred Garcia MA 03/01/20 25 Orders Only [facility] Gastroenterology at [address] [place] [address] Terrence Fitch MD 03/01/20 25 Telephone [facility] Gastroenterology at [address] [place] [address] Evelin Fischer MA 02/25/20 25 Telephone [facility] Gastroenterology [address] [facility] Medical Office Building [address], [address] [place] [address] Carmen Irving RN 02/24/20 25 8:45 AM CDT Office Visit [facility] G[facility]enterology [address] [facility] 2nd Floor [address] [place] [address] Thierry Rivera MD Gastroparesis (Primary Dx) 02/11/20 25 Telephone [facility] Diabetes Endocrine Care at [address] [place] [phone] Nay Alford, REYNA 01/29/20 25 Telephone [facility] Gastroenterology at [address] [place] [address] Cristin Tejada LPN 01/29/20 25 Telephone [facility] Gastroenterology [address] [place] [address] Medical Office Building 4, [address] [place] [address] Carmen Irving RN IOV scheduling 01/27/20 25 1:30 PM CDT Office Visit [facility] Gastroenterology at [address] [address] Terrence Fitch MD Gastroparesis (Primary Dx); Gastroesophageal reflux disease without esophagitis; Marijuana use 01/27/20 25 10:00 AM CDT Office Visit [facility] Diabetes Endocrine Care at [address] [place] [address] Nay Alford NP Type 1 diabetes mellitus with hyperglycemia (HCC) (Primary Dx); Hypoglycemia; Mixed hyperlipidemia; Tandem T slim Insulin pump in place; Gastroparesis 01/07/20 8:00 AM CDT Anesthesia Event [address] [address] Ronaldo Jerome DO Entzeroth, Timothy, CRNA 01/07/20 8:00 AM CDT - 01/07/20 8:30 AM CDT Surgery [address] [address] Terrence Fitch MD Not Performed ESOPHAGOGASTRODUODENOSCOPY 01/07/20 7:27 AM CDT - 01/07/20 8:07 AM CDT Hospital Encounter [address] [address] Terrence Fitch MD Discharge Disposition: Discharge to home or self care 01/07/20 Telephone [facility] Gastroenterology at [address] [place] [address] Arin Fischer 01/02/20 Results Follow-Up [facility] Gastroenterology at [address] [place] [address] Peter Rivera NP [place] Gastric Emptying Study 12/31/19 10:13 AM CDT - 12/31/19 11:59 PM CDT Hospital Encounter [address] [address] Discharge Disposition: Discharge to home or self care 12/31/19 10:13 AM CDT - 12/31/19 11:59 PM CDT Hospital Encounter [address] [address] Discharge Disposition: Discharge to home or self care 12/31/19 25 10:13 AM CDT - 12/31/19 25 11:59 PM CDT Hospital Encounter [address] [address] Discharge Disposition: Discharge to home or self care 12/31/19 10:13 AM CDT - 12/31/19 11:59 PM CDT Hospital Encounter [facility] [address] [place] [address] Discharge Disposition: Discharge to home or self care 12/31/19 10:13 AM CDT - 12/31/19 11:59 PM CDT Hospital Encounter [facility] [address] [place] [address] Nausea and vomiting, unspecified vomiting type; Type 1 diabetes mellitus with hyperglycemia (HCC) Discharge Disposition: Discharge to home or self care from Last 3 Months Surgical History Surgery [...] drink = 0.6 oz pur e alcohol) [facility] Utilities Answer Date Recorded In the [...] often do you attend chur ch or restorationist services? Never 12/02/2024 Do you belong to any clubs o r organizations such as buddhism groups, unions, fraternal or athletic groups, or [...] any time in the past 12 [facility], were you homeless or living in a [facility] (including now)? No 12/02/2024 Personal Safety Answer Date Recorded Have you ever been in or are you currently in a harmful physical or emotional relationship or is someone making you feel afraid or unsafe? Denies 01/06/2025 Sex and Gender Information Value Date Recorded Sex Assigned at Not on file Legal Sex Male 4:12 AM NUCLEAR WEAPONS SPECIALIST Gender Identity Not on file Sexual [...] 01/26/2025 10:0 4 AM CDT Nay Alford PLASTIC CNC MACHINE OPERATOR POINT OF CARE TEST ORDERABLES F inal [...] ORDERABLES - DEVICE Fin al Result [facility] [address] [place] [address] [place] [address] * NC Gastric Emptying Study (12/30/2024 2:53 PM CDT) Anatomical Region Laterality Modality Body N/A Nuclear Medicine 12/30/2024 4:53 PM CDT Narrative 12/30/2024 4:54 PM CDT EXAM DESCRIPTION: NC GASTRIC EMPTYING STUDY RADIOPHARMACEUTICAL: 500 uCi Tc-99m [...] Shaquille Contreras M.D. LB: [place] Report ID: [id number] Reading Location: [id number] Procedure Note Shaquille Contreras MD - 12/30/2024 EXAM DESCRIPTION: NC GASTRIC EMPTYING STUDY RADIOPHARMACEUTICAL: 500 uCi Tc-99m [...] Shaquille Contreras M.D. LB: [place] Report ID: [id number] Reading Location: [place] [address] Peter Shu Bildergris PLASTIC CNC MACHINE OPERATOR IMG NM PROCEDURES F inal Result * [...] BLOOD ORDERABLES Stephie l Result AL[facility]SSA [facility] ([facility] [address] [facility] Department of Laboratories [place], [place] [id number] * (ABNORMAL) Hemoglobin A1c (11/30/2024 8:32 AM CDT) Hgb A1C 8.1(H) 4.0 - 5.6 % Estimated Average Glucose 186 mg/dL [facility] Comment: The ADA recommends reporting an estimated Average Glucose (eAG) with all Hemoglobin A1c results using the equation derived from a study of 507 normal and diabetic adults. Minority populations were underrepresented and children were not included. (Diabetes Care 31:2077-5292, 2008). The eAG is not equivalent to a fasting glucose. Blood 11/30/2024 8:32 AM CDT 11/30/2024 8:57 AM CDT Marcelina Cleaning MD LAB BLOOD ORDERABLES Stephie l Result AL[facility] [address] [facility] Department [place] [address] * Thyroid Function Butler (10/27/2024 8:51 AM CDT) TSH 1.51 0.30 - 4.20 mcIUnit/mL Blood 10/27/2024 8:51 AM CDT 10/27/2024 2:50 PM CDT Nay Alford NP LAB BLOOD ORDERABLES Final Resu lt Performing Organization Address City/[facility]/ZIP Co de Phone Number [facility] [address] [facility] Department [place] [address] * (ABNORMAL) Albumin Creatinine Ratio, Urine (10/27/2024 8:51 AM CDT) Albumin Ur 96.3 mg/L Comment: Interpretive Data No reference range established. Current interpretive data was last revised 2018. Creatinine Ur 124.7 mg/dL [facility] Comment: Interpretive Data No reference range established. Current interpretive data was last revised 2018. Albumin Creatinine Ratio, Ur 77(H) 1 - 29 mg/g [facility] Urine 10/27/2024 8:51 AM CDT 10/27/2024 2:50 PM CDT Nay K. Prashanth PLASTIC CNC MACHINE OPERATOR LAB URINE ORDERABLES Final Resu lt ALYSSA [address] [address] Department of Laboratories [place] [id number] * (ABNORMAL) Lipid panel (10/27/2024 8:51 AM [...] 2004;110:227 3. Ashok Espinoza al. WENDI Cardiol. 2019November 19;5(5):540-548. doi: [email or web address] [...] BLOOD [place] [address] [address] Department [place] [address] * DIABETES FOOT EXAM (04/08/2018) Diabetic Foot Exam Normal us Historical Provider HEALTH MAINTENANCE Final Result from Last 3 Months or Most Recently Relevant to Health Maintenance [place] [address] [place] [address] Advance Directives For more information, please contact: [phone] Documents on File Type Date Recorded Patient Specialist Physicians Expl anation ADVANCE DIRECTIVE 05/26/2020 6:51 PM [...] 11:49 AM 10/18/2024 1:28 PM Care Teams Rn Neonatal Relationship Specialty Start Date End Date Prashanth Saldana PA [address] [place] [address] PCP - General Family Practice 05/25/20 Con Beltrán MD Referring Physician Pediatric Endocrinology 12/20/18 Sidney Russell MD [address] [place] [address] Consulting Physician Gastroenterology 04/19/21
--- OUTSIDE RECORDS SUMMARY | 2025-03-29 10:36 | XMS_ITS | Clinical Summary ---
Author Organization [facility] Address [address] [place] [address] Phone Care Team Providers Care Procurement Coordinator Name Role Phone Prashanth Saldana Primary Care Provider [phone] Allergies Active Allergy Reactions Criticality Noted Date [...] 1 Active Insulin Pen Needle (TechLite Pen Man) 31G X 8 MM Misc USE TO [...] 10 Tablet 2 Active Continuous Blood Gluc Planning Aide (Dexcom G6 Planning Aide) Device USE TO CHECK GLUCOSE 4X DAILY. [...] 1 diabetes mellitus without complication Hypertriglyceridemia 05/07/2019 Immunizations Immunization Administration Dates Next Due [id number] kiersten MCV4, Unspecif ied Formulation 04/17/2012 DTAP [...] drink = 0.6 oz pur e alcohol) [facility] Utilities Answer Date Recorded In the [...] any clubs o r organizations such as jehovah's witness groups, unions, fraternal or athletic groups, or [...] medical care, and heating? Somewhat hard 10/16/2024 [facility] - Occupational [...] any time in the past 12 m [facility], were you homeless or living in a [...] Procedure Name Priority Date/Time Associated Diagnosis Comments CMP (COMPREHENSIVE METABOLIC PANEL) STAT 12/24/2024 9:39 AM CDT HEMOGLOBIN A1C W/ ESTIMATED GLUCOSE STAT 10/16/2024 2:39 AM CDT LIPID PANEL Routine 06/24/2019 5:44 AM SUBSTATION ENGINEER from Last 3 Months or Most Recently Relevant to Health Maintenance Results * (ABNORMAL) CMP (12/24/2024 9:39 AM CDT) SODIUM 140 136 - 145 mmol/L 12/24/2024 10:09 AM CDT [facility] POTASSIUM 3.8 3.5 - 5.1 mmol/L 12/24/2024 10:09 AM CDT [facility] CHLORIDE 102 98 - 107 mmol/L 12/24/2024 10:09 AM T [facility] CO2, VENOUS 21(L) 22 - 30 mmol/L 12/24/2024 10:09 AM T [facility] ANION GAP 20.8(H) <18.0 mmol/L 12/24/2024 10:09 AM CDT [facility] GLUCOSE 204(H) 70 - 99 mg/dL 12/24/2024 10:09 AM CDT [facility] BUN 27(H) 9 - 21 mg/dL 12/24/2024 10:09 AM T [facility] CREATININE, BLOOD 1.31(H) 0.70 - 1.30 mg/dL 12/24/2024 10:09 AM T [facility] BUN/CREATININE RATIO 21(H) 12 - 20 ratio 12/24/2024 10:09 AM CDT [facility] TOTAL PROTEIN 8.4(H) 6.0 - 8.0 g/dL 12/24/2024 10:09 AM CDT [facility] ALBUMIN 5.1(H) 3.5 - 5.0 g/dL 12/24/2024 10:09 AM T [facility] A/G RATIO 1.5 1.0 - 2.2 12/24/2024 10:09 AM CDT [facility] CALCIUM 9.7 8.7 - 10.5 mg/dL 12/24/2024 10:09 AM T [facility] T BILI 1.1 0.2 - 1.2 mg/dL 12/24/2024 10:09 AM CDT [facility] SGOT (AST) 22 <43 U/L 12/24/2024 10:09 AM CDT [facility] SGPT (ALT) 16 <56 U/L 12/24/2024 10:09 AM CDT [facility] ALKALINE PHOSPHATASE 80 40 - 150 U/L 12/24/2024 10:09 AM CDT [facility] GFR, ESTIMATED >60 >=60 12/24/2024 10:09 AM CDT [facility] Comment: Creatinine Clearance is the preferred criteria for selecting drug dose adjustments in renally impaired patients. The GFR is provided as additional pertinent clinical information. GFR is reported in mL/min/1.73 sq m. Calculation based on the Chronic Kidney Disease Epidemiology Collaboration (CKD- EPI) equation refit without adjustment for race. GFR, EST. >60 >=60 025 10:09 AM CDT [facility] GFR, EST. NONAFRICAN >60 >=60 12/24/2024 10:09 AM CDT [facility] Blood Venipuncture / Unknown 12/24/2024 9:39 AM CDT 12/24/2024 9:39 AM CDT us Forest Guerrero MD CHEMISTRY ORDERABLES Final Result [facility] [address] [place] [address] * (ABNORMAL) Hemoglobin A1C w/ Estimated Glucose (10/16/2024 2:39 AM CDT) HGB-A1C 7.9(H) 4.0 - 6.0 % 10/16/2024 6:43 AM CDT [facility] Est Average Glucose 180.0 mg/dL 10/16/2024 6:43 AM CDT [facility] Blood Venipuncture / Unknown 10/16/2024 2:39 AM CDT 10/16/2024 2:46 AM CDT Narrative [facility] - 10/16/2024 6:43 AM CDT HEMOGLOBIN A1C: DIABETIC PATIENTS: WELL-CONTROLLED: 6.2 - 7.0 INTERMEDIATE WELL-CONTROLLED: 7.0 - 9.0 POORLY-CONTROLLED: >9.0 Specimens containing greater than 5% of Hemoglobin F may result in lower than expected % HbA1C results. us Sharita Kahn GALVANOMETER ASSEMBLER, MEDICAL HEALTH RESEARCHER CHEMISTRY ORDERABLES Stephie l Result [facility] [address] [place] [address] * (ABNORMAL) Lipid Panel AM (06/24/2019 5:44 AM SUBSTATION ENGINEER) CHOLESTEROL 141 <=200 mg/dL 06/24/2019 1:58 PM SUBSTATION ENGINEER [facility] TRIGLYCERIDES 158(H) <150 mg/dL 06/24/2019 1:58 PM SUBSTATION ENGINEER [facility] HDL CHOLESTEROL 30.4(L) >40 mg/dL 1:58 PM SUBSTATION ENGINEER [facility] LDL 79 5 - 130 mg/dL 06/24/2019 1:58 PM SUBSTATION ENGINEER [facility] VLDL 32 5 - 55 mg/dL 06/24/2019 1:58 PM SUBSTATION ENGINEER [facility] CHOL/HDL RATIO 4.6(H) 0.0 - 4.4 06/24/2019 1:58 PM SUBSTATION ENGINEER [facility] NON-HDL CHOLESTEROL 110.6 <130 mg/dL 06/24/2019 1:58 PM SUBSTATION ENGINEER [facility] LIPID FASTING 06/24/2019 1:58 PM SUBSTATION ENGINEER [facility] Blood specimen (specimen) BLOOD SPECIMEN / Unknown Venipuncture / Unknown 06/24/2019 5:44 AM SUBSTATION ENGINEER 06/24/2019 1:10 PM SUBSTATION ENGINEER us Toni Orourke MD CHEMISTRY ORDERABLES Fin al Result [facility] [address] [place] [address] from Last 3 Months or Most Recently [...] measures to stabilize the patient. Care Teams Procurement Coordinator Relationship Specialty Start Date End Date Prashanth Saldana, PAC [address] [place] [address] PCP - General Physician Tire Stripper 04/03/19
--- OUTSIDE RECORDS SUMMARY | 2025-03-29 10:36 | XMS_ITS | Encounter Summary ---
Author Organization [facility] Address [address] [place] [address] Phone Care Team Providers Care Director Of Early Childhood Education Name Role Phone Prashanth Saldana Primary Care Provider [phone] Heidi Swift MD Unavailable Reason for Visit * Reason Comments Medication Refill Encounter Details Date Type Department Care Team (Late st Contact Info) Description 09/17/2021 Refill [facility] - End[facility] - [place] [address] [place] [address] Heidi Swift MD [address] [address] Medication Refill Social History Tobacco [...] Eli Jones RN - 09/19/2021 3:39 PM SR. PRICING ANALYST Requested Prescriptions Pending Prescriptions Disp Refills ??? Continuous Blood Gluc Transmit (Dexcom G6 Transmitter) Misc [Pharmacy Med Name: DEXCOM G6 TRANSMITTER] 3 Si EACH BY DOES NOT APPLY ROUTE EVERY 90 DAYS. CHANGE SENSOR EVERY 90 DAYS. Next appt: Message sent to schedule follow up. . PRICING ANALYST documented in this encounter Plan of Treatment [...] Respiratory Rule-Out 05/17/2022 05/17/2022 022 12:16 AM SR. PRICING ANALYST COVID - 19 06/27/2022 06/27/2022 07/07/2022 12:1 6 AM SR. PRICING ANALYST Influenza 06/27/2022 06/27/2022 07/04/2022 12:1 6 AM SR. PRICING ANALYST COVID - 19 04/05/2024 04/05/2024 04/05/2024 10:2 0 PM CDT COVID - 19 10/16/2024 10/16/2024 10/16/2024 7:05 AM CDT documented as of this encounter Care Teams Director Of Early Childhood Education Relationship Specialty Start Date End Date Prashanth Saldana PAC [address] [place] [address] PCP - General Physician Medical Appliance Maker 04/03/19 Heidi Swift MD [address] [address] Consulting Physician Endocrinology 08/09/20 09/23/24 documented as of this encounter
--- OUTSIDE RECORDS SUMMARY | 2025-03-29 10:36 | XMS_ITS | Encounter Summary ---
Author Organization [facility] Address [address] [place] [address] Phone Care Team Providers Care Collar Padder Blindstitch Name Role Phone Prashanth Saldana Primary Care Provider Heidi Swift MD Unavailable Reason for Visit * Reason Comments Medication Refill Encounter Details Date Type Department Care Team (Late st Contact Info) Description 07/24/2021 Refill [facility] - [facility] - [place] [address] [place] [address] Heidi Swift MD [address] [address] Medication Refill Social History Tobacco [...] COVID-19? No / Unsure 07/07/2021 3:14 PM ANNEALER documented as of this encounter Miscellaneous Notes * Telephone Encounter - Eli Jones RN - 07/25/2021 8:10 AM ANNEALER Requested Prescriptions Pending Prescriptions Disp Refills ??? Continuous Blood Gluc Sensor (Dexcom G6 Sensor) Misc [Pharmacy Med Name: DEXCOM G6 SENSOR] Sig: CHANGE SENSOR EVERY 10 DAYS. Next appt: 08/01/2021 ALER documented in this encounter Plan of Treatment [...] Respiratory Rule-Out 05/17/2022 05/17/2022 022 12:16 AM ANNEALER COVID - 19 06/27/2022 06/27/2022 07/07/2022 12:1 6 AM ANNEALER Influenza 06/27/2022 06/27/2022 07/04/2022 12:1 6 AM ANNEALER COVID - 19 04/05/2024 04/05/2024 04/05/2024 10:2 0 PM CDT COVID - 19 10/16/2024 10/16/2024 10/16/2024 7:05 AM CDT documented as of this encounter Care Teams Collar Padder Blindstitch Relationship Specialty Start Date End Date Prashanth Saldana [facility] [address] [place] [address] PCP - General Physician Senior Infrastructure Architect 04/03/19 Heidi Swift MD [address] [phone] Consulting Physician Endocrinology 08/09/20 09/23/24 documented as of this encounter
--- OUTSIDE RECORDS SUMMARY | 2025-03-29 10:36 | XMS_ITS | Clinical Summary ---
Author Organization [facility] Address [address] [facility] [place] [address] Care Team Providers Care Civil Engineering Technician Name Role Phone Unavailable Primary Care Provider Unavailabl e Source Comments [facility] [employer],non-owned Affiliates and Associated Physician Practices is amultiple site organization consisting of ambulatory clinics and hospital sitesin [place], [place], [place] and [place]. This disclosure is being madepursuant to the Care Everywhere program and may not contain all information available regarding this patient. Last updated 18.[facility] [employer] Allergies No known active allergies Medications * [...] - 105 mg/dL 04/02/2020 3:39 AM CDT [facility] Sodium 137 136 - 145 mmol/L 04/02/2020 3:39 AM CDT [facility] Potassium 3.0(L) 3.5 - 5.1 mmol/L 04/02/2020 3:39 AM CDT [facility] Chloride 104 98 - 107 mmol/L 04/02/2020 3:39 AM CDT [facility] CO2 20(L) 23 - 31 mmol/L 04/02/2020 3:39 AM CDT [facility] Calcium 9.0 8.4 - 10.4 mg/dL 04/02/2020 3:39 AM CDT [facility] Anion Gap 13 8 - 16 mmol/L 04/02/2020 3:39 AM CDT [facility] BUN 6(L) 8.9 - 20.6 mg/dL 04/02/2020 3:39 AM CDT [facility] Creatinine 0.86 0.72 - 1.25 mg/dL 04/02/2020 3:39 AM CDT [facility] eGFR by MDRD >60 >60 mL/min/1.7 3m2 04/02/2020 3:39 AM CDT [facility] eGFR by MDRD >60 >60 mL/min/1.7 3m2 04/02/2020 3:39 AM CDT [facility] Blood BLOOD SPECIMEN / Unknown Lab Venipuncture / Unknown 04/02/2020 3:06 AM CDT 04/02/2020 3:20 AM CDT Robinson Wilkins MD LAB - CHEMISTRY ORDERABLES F inal Result [facility] [address] [place] [address] * (ABNORMAL) HEMOGLOBIN A1C (04/01/2020 12:04 PM CDT) Hemoglobin A1c 8.9(H) 4.2 - 5.6 % 04/01/2020 1:31 PM CDT [facility] Estimated Average Glucose 209 mg/dL 04/01/2020 1:31 PM CDT [facility] Blood BLOOD SPECIMEN / Unknown Venipuncture / Unknown 04/01/2020 12:04 PM CDT 04/01/2020 12:08 PM CDT Narrative [facility] - 04/01/2020 1:31 PM CDT The following cutoff levels are recommended by [place] [employer]. A1c > 6.5% : considered [...] LAB - CHEMISTRY ORDERABLES F inal Result [facility] [address] [place] [address] from Last 3 Months or Most Recently Relevant to Health Maintenance [place] [address] [place] [address] [facility] Advance Directives * Full Code (Latest Code Status on File) Date Activated Date Inactivated Comments 04/01/2020 1:52 PM 04/02/2020 1:54 PM
--- OUTSIDE RECORDS SUMMARY | 2025-03-29 10:36 | XMS_ITS | Encounter Summary ---
Author Organization [facility] Address [address] [place] [address] Phone Care Team Providers Care Software Computer Specialist Name Role Phone Cristobal Aguilera MD Primary Care Provider Con Beltrán MD Unavailable [phone] Azra aYrbrough RN Unavailable Cristobal Aguilera MD Primary Care Provider Prashanth Saldana Primary Care Provider [phone] Sidney Russell MD Unavailable [phone] Reason for Visit * Reason Onset Date Comments left msg. for family to c/b and sched. 3mo appt. 03/12/2018 Encounter Details Date Type Department Care Team (Late st Contact Info) Description 03/12/2018 [facility] 2[address] [place] [address] [place] [address] Ngoc Lee left msg. for family to c/b and sched. 3mo appt. Social History Tobacco Use Types Packs/Day Years Used Date Smoking Tobacco: Never Alcohol Use Standard Drinks/Week Comments No 0 (1 standard drink = 0.6 oz pur e alcohol) Sex and Gender Information Value Date Recorded Sex Assigned at Not on file Legal Sex Male 4:12 AM MANAGER TRANSFER Gender Identity Not on file Sexual Orientation [...] COVID: Suspected 05/26/2020 05/26/2020 05/27/2020 10:23 AM MANAGER TRANSFER Respiratory Infection (ALLIE), contact + droplet Comment:IP Review - There is a significant event note with an alternative diagnosis and at least one negative COVID-19 test documented in Epic. Patient meets criteria for COVID-19 isolation discontinuation. ` Automatically added due to negative COVID-19 result. 05/27/2020 05/27/2020 05/27/2020 12:46 PM MANAGER TRANSFER COVID: Suspected 07/04/2020 07/04/2020 07/04/2020 6:02 PM MANAGER TRANSFER Respiratory Infection (ALLIE), contact + droplet Comment:Patient classified as Low Risk for COVID-19 and has one negative COVID-19 test. Patient meets criteria for COVID-19 isolation discontinuation 07/04/2020 [place] Automatically added due to negative COVID-19 result. 07/04/2020 07/04/2020 07/04/2020 8:[address] COVID: Suspected 08/03/2020 08/03/2020 08/03/2020 10:50 PM MANAGER TRANSFER Respiratory Infection (ALLIE), contact + droplet Comment:08/04/2020 [...] documented as of this encounter Care Teams Software Computer Specialist Relationship Specialty Start Date End Date Cristobal Aguilera MD PCP - General 10/19/16 11/15/19 Cristobal Aguilera MD PCP - General 11/16/19 05/24/20 Prashanth Saldana PA [address] [place] [address] PCP - General Family Practice 05/25/20 Con Beltrán MD Referring Physician Pediatric Endocrinology 12/20/18 Azra Yarbrough, RN [address] [address] [facility] Outpatient Compo Caster 11/16/19 12/15/19 Sidney Russell MD [address] [place] [address] Consulting Physician Gastroenterology 04/19/21 documented as of this encounter
--- OUTSIDE RECORDS SUMMARY | 2025-03-29 10:36 | XMS_ITS | Encounter Summary ---
Author Organization [facility] Address [address] [place] [address] Phone Care Team Providers Care Desktop Architect Name Role Phone Prashanth Saldana Primary Care Provider [phone] Heidi Swift MD Unavailable Reason for Visit * Reason Comments Medication Refill Encounter Details Date Type Department Care Team (Late st Contact Info) Description 08/28/2021 Refill [facility] - Endocr[facility] - [place] [address] [place] [address] Heidi Swift MD [address] [address] Medication Refill Social History Tobacco [...] Coronavirus / COVID-19? 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 insulin lispro (HumaLOG) 100 UNIT/ML Solution [Pharmacy Med Name: HUMALOG 100 UNIT/ML VIAL] 30 mL 0 Sig: UP TO 100 UNITS/DAY PER INSULIN PUMP SETTINGS Next appt: 09/12/2021 LE BOARD REPAIRER documented in this encounter Plan of Treatment Not on file documented as of this encounter Visit Diagnoses Not on filedocumented in this encounter Additional Health Concerns Infection Onset Date Last Indicated Resolved Time COVID - 19 04/13/2022 04/13/2022 04/13/2022 10:4 2 AM CDT COVID - 19 05/17/2022 05/17/2022 05/27/2022 12:1 6 AM CDT Respiratory Rule-Out 05/17/2022 05/17/2022 022 12:16 AM NEEDLE BOARD REPAIRER COVID - 19 06/27/2022 06/27/2022 07/07/2022 12:1 6 AM NEEDLE BOARD REPAIRER Influenza 06/27/2022 06/27/2022 07/04/2022 12:1 6 AM NEEDLE BOARD REPAIRER COVID - 19 04/05/2024 04/05/2024 04/05/2024 10:2 0 PM CDT COVID - 19 10/16/2024 10/16/2024 10/16/2024 7:05 AM CDT documented as of this encounter Care Teams Desktop Architect Relationship Specialty Start Date End Date Prashanth Saldana PAC [address] [place] [address] PCP - General Physician Embossing Machine Operator 04/03/19 Heidi Swift MD [address] [address] Consulting Physician Endocrinology 08/09/20 09/23/24 documented as of this encounter
--- OUTSIDE RECORDS SUMMARY | 2025-03-29 10:36 | XMS_ITS | Encounter Summary ---
Author Organization [facility] Address [address] [place] [address] Phone Care Team Providers Care Apprentice Embalmer Name Role Phone Prashanth Saldana Primary Care Provider [phone] Heidi Swift MD Unavailable Reason for Visit * Reason Comments Medication Refill Encounter Details Date Type Department Care Team (Late st Contact Info) Description 12/27/2021 Refill [facility] - Endocrinology - [place] [address] [place] [address] Heidi Swift MD [address] [address] Medication Refill Social History Tobacco [...] Notes * Telephone Encounter - Saadia Lawson, [facility] - 12/29/2021 11:37 AM CDT Patient calling requesting refill of: Requested Prescriptions Pending Prescriptions Disp Refills ??? 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 COVID - 19 06/27/2022 06/27/2022 07/07/2022 12:1 6 AM HAT FORMING MACHINE OPERATOR Influenza 06/27/2022 06/27/2022 07/04/2022 12:1 6 AM HAT FORMING MACHINE OPERATOR COVID - 19 04/05/2024 04/05/2024 04/05/2024 10:2 0 PM CDT COVID - 19 10/16/2024 10/16/2024 10/16/2024 7:05 AM CDT documented as of this encounter Care Teams Apprentice Embalmer Relationship Specialty Start Date End Date Prashanth Saldana PAC [address] [place] [address] PCP - General Physician Publicity Consultant 04/03/19 Heidi Siwft MD [address] [address] Consulting Physician Endocrinology 08/09/20 09/23/24 documented as of this encounter
== END 2025-03-29 10:47 | disposition home or self-care (01) ==
PROVIDERS: Emergency Provider Nurse Practitioner Family; PCP Physician Assistant
DX: E10.43 Type 1 diabetes mellitus with diabetic autonomic (poly)neuropathy (principal); K31.84 Gastroparesis; Z79.4 Long term (current) use of insulin; E78.00 Pure hypercholesterolemia, unspecified; F12.90 Cannabis use, unspecified, uncomplicated
CPT/HCPCS: 99213; A9270; G0463

== ENCOUNTER 2025-04-13 10:21 | Emergency (ER) | payer OTHER, SELFPAY ==
--- NOTE | 2025-04-13 10:24 | ED.ABDPAIN ---
HPI - Abdominal Pain General Chief Complaint: Abdominal Pain Stated Complaint: Abdominal Pain Time Seen by Provider: 04/13/25 10:25 Source: patient and RN notes reviewed Mode of arrival: ambulatory Limitations: no limitations History of Present Illness HPI narrative: 24-year-old male presents with concern for gastroparesis flare. Reports yesterday and today he has had abdominal pain. He has not vomited since yesterday. He is drinking fluids but he has not tried to eat anything yet today. He has been taking his medication for the symptoms as prescribed by his physician. He had a bowel movement yesterday. He reports his blood sugars are normal. He has been in his job less than a year and needs a work note when he misses work. MD elicited complaint: abdominal pain Related Data Home Medications ?Medication ?Instructions ?Recorded ?Confirmed ?Last Taken ?Type blood-glucose sensor (Dexcom G7 11/03/24 02/04/25 Unknown History Sensor device) blood-glucose transmitter (Dexcom 11/03/24 02/04/25 Unknown History G6 Transmitter device) insulin lispro 100 unit/mL 11/03/24 Unknown History subcutaneous solution (Humalog U-100 Insulin) pantoprazole 40 mg tablet,delayed mg PO 11/03/24 Unknown History release glucagon 1 mg/0.2 mL subcutaneous mg subcut 02/04/25 Unknown History auto-injector (Gvoke HypoPen 2-Pack) mirtazapine 15 mg tablet mg 03/29/25 Unknown History dicyclomine 20 mg tablet mg 04/13/25 Unknown History diphenhydramine HCl 25 mg capsule mg 04/13/25 Unknown History (Banophen) Allergies Allergy/AdvReac Type Severity Reaction Status Date / Time haloperidol (From Haldol) AdvReac Severe Other Verified 04/13/25 10:27 Review of Systems Review of Systems: CONSTITUTIONAL: Denies malaise, chills, sweats, or fever. CARDIOVASCULAR: Denies chest pain, palpitations, or edema. RESPIRATORY: Denies cough or dyspnea. GASTROINTESTINAL: Reports epigastric pain, nausea. Reports vomiting yesterday. Denies constipation or diarrhea All systems reviewed & are unremarkable except as noted in HPI and below PMFSH Past Medical History Medical History Gastroparesis Elevated cholesterol Type 1 diabetes Surgical History Surgical History History of cholecystectomy Family History Family History Mother Family history non-contributory Social History Social History Smoking status: Never smoker Alcohol intake: never Substance use: current Substance use type: marijuana Living arrangements: with family Gender identity (if verbalized by the patient): Male Comments At time of signature, agree with nursing past medical, surgical, social and family history. There is no relevant family history pertinent to the presenting complaint Exam Narrative: GENERAL: Well-appearing, well-nourished, and in no acute distress. HEAD: Normocephalic, atraumatic. EYES: PERRLA, conjunctivae clear, and EOMI. ENT: Nares clear, no rhinorrhea or epistaxis. Mucous membranes moist. NECK: Supple. CHEST: Speaks in full sentences. No respiratory distress. HEART: Regular rate and rhythm. ABDOMEN: Soft, flat, nondistended, generally nontender. No rebound tenderness, or rigidity. Bowel sounds present in all four quadrants. SKIN: Warm, dry, no rash. NEURO: Alert and oriented x3. PSYCH: Normal mood and affect Course Course Emergency Course: Patient is aware of diagnosis, understands and agrees to treatment plan. Anticipatory guidance given. Patient agrees to follow-up as directed and is aware of reasons to seek care at the emergency department. Portions of this record may have been created with voice recognition software Level of Care: Express Care Visit Vital Signs Vital signs: Reviewed. MDM - Abdominal Pain MDM Narrative Medical decision making narrative: I evaluated this patient in the express care. History is obtained from patient who is an independent historian and physical exam was performed.? Available medical records were reviewed. ? Exam findings and relevant testing show no acute concerns or changes; patient is non-toxic appearing and is in no distress. ? Differential diagnosis and treatment plan were discussed with the patient. Patient agrees with discussion and after shared medical decision making agrees with plan of care. All questions were answered to the patient's satisfaction. Patient is appropriate for outpatient treatment and follow-up. Critical Care Time Critical Care Time Critical Care Time: No Discharge Plan Discharge Clinical Impression: Abdominal pain Patient Disposition: Home Condition: Stable Instructions: Gastroparesis (ED) Additional Instructions: 1) Please follow-up with your primary care doctor. 2) If you have any worsening of symptoms or any other urgent concerns please go to the ER. 3) Please continue taking your home medications as usual. 4) Please read and follow information included in discharge instructions. Patient Language: Armenian Prescriptions: No Action Gvoke HypoPen 2-Pack 1 mg/0.2 mL auto-injector SUBCUT pantoprazole 40 mg tablet,delayed release (DR/EC) PO insulin lispro [Humalog U-100 Insulin] 100 unit/mL solution Patient Comments: insulin pump (DME) Dexcom G7 Sensor Device MISCELLANEOUS (DME) Dexcom G6 Transmitter Device MISCELLANEOUS mirtazapine 15 mg tablet dicyclomine 20 mg tablet diphenhydramine HCl [Banophen] 25 mg capsule Follow-up/Referrals: Les,REEMA Arizmendi [Primary Care Provider] Stand Alone Forms: Work/School Release IP Time of Disposition: 10:32
[2025-04-13 10:25] VITALS: BP 130/67; PULSE 90; RESP 16; TEMP 36.6; O2SAT 100
--- OUTSIDE RECORDS SUMMARY | 2025-04-13 11:10 | XMS_ITS | Clinical Summary ---
Author Organization [facility] Address [address] [place] [address] Phone Care Team Providers Care Neonatal Surgeon Name Role Phone Prashanth Saldana Primary Care Provider [phone] Allergies Active Allergy Reactions Criticality Noted Date [...] 1 Active Insulin Pen Needle (TechLite [facility]) 31G X 8 MM Misc USE TO [...] 10 Tablet 2 Active Continuous Blood Gluc Continuing Education Dean (Dexcom G6 [employer] Dean) Device USE TO CHECK GLUCOSE 4X DAILY. [...] 05/07/2019 Immunizations Immunization Administration Dates Next Due DTAP [...] drink = 0.6 oz pur e alcohol) [facility] Utilities Answer Date Recorded In [...] often do you attend chur ch or worship services? Never 10/16/2024 Do you belong to any clubs o r organizations such as restoration groups, unions, fraternal or athletic groups, or [...] medical care, and heating? Somewhat hard 10/16/2024 [facility] - Occupational Stress [...] place to sleep or slept in a halfway (including now)? No 12/07/2023 Housing Stability Vital Sign Answer Eloy e Recorded In the last 12 months, was t here a time when you were not able to pay the mortgage or rent on time? No 10/16/2024 In the past 12 months, how m any times have you moved where you were living? 1 10/16/2024 At [facility] time [facility] the [facility] were you homeless or living in a halfway (including now)? No 10/16/2024 Sexually Active Control [...] CDT LIPID PANEL Routine 06/24/2019 5:44 AM WELFARE AIDE from Last 3 Months or Most Recently Relevant to Health Maintenance Results * (ABNORMAL) CMP (12/24/2024 9:39 AM CDT) SODIUM 140 136 - 145 mmol/L 12/24/2024 10:09 AM CDT [facility] POTASSIUM 3.8 3.5 - 5.1 mmol/L 12/24/2024 10:09 AM CDT [facility] CHLORIDE 102 98 - 107 mmol/L 12/24/2024 10:09 AM CDT [facility] CO2, VENOUS 21(L) 22 - 30 mmol/L 12/24/2024 10:09 AM CDT [facility] ANION GAP 20.8(H) <18.0 mmol/L 12/24/2024 10:09 AM CDT [facility] GLUCOSE 204(H) 70 - 99 mg/dL 12/24/2024 10:09 AM CDT [facility] BUN 27(H) 9 - 21 mg/dL 12/24/2024 10:09 AM T [facility] CREATININE, BLOOD 1.31(H) 0.70 - 1.30 mg/dL 12/24/2024 10:09 AM T [facility] BUN/CREATININE RATIO 21(H) 12 - 20 ratio 12/24/2024 10:09 AM CDT [facility] TOTAL PROTEIN 8.4(H) 6.0 - 8.0 g/dL 12/24/2024 10:09 AM CDT [facility] ALBUMIN 5.1(H) 3.5 - 5.0 g/dL 12/24/2024 10:09 AM T [facility] A/G RATIO 1.5 1.0 - 2.2 12/24/2024 10:09 AM CDT [facility] CALCIUM 9.7 8.7 - 10.5 mg/dL 12/24/2024 10:09 AM CDT [facility] T BILI 1.1 0.2 - 1.2 mg/dL 12/24/2024 10:09 AM CDT [facility] SGOT (AST) 22 <43 U/L 12/24/2024 10:09 AM CDT [facility] SGPT (ALT) 16 <56 U/L 12/24/2024 10:09 AM CDT [facility] ALKALINE PHOSPHATASE 80 40 - 150 U/L 12/24/2024 10:09 AM CDT [facility] GFR, ESTIMATED >60 >=60 12/24/2024 10:09 AM CDT [facility] Comment: Creatinine Clearance is the preferred criteria for selecting drug dose adjustments in renally impaired patients. The GFR is provided as additional pertinent clinical information. GFR is reported in mL/min/1.73 sq m. Calculation based on the Chronic Kidney Disease Epidemiology Collaboration (CKD- EPI) equation refit without adjustment for race. GFR, EST. >60 >=60 025 10:09 AM CDT [facility] GFR, EST. NONAFRICAN >60 >=60 12/24/2024 10:09 AM CDT [facility] Blood Venipuncture / Unknown 12/24/2024 9:39 AM CDT 12/24/2024 9:39 AM CDT us Forest Guerrero MD CHEMISTRY ORDERABLES Final Result [facility] [address] [place] [address] * (ABNORMAL) Hemoglobin A1C w/ Estimated Glucose (10/16/2024 2:39 AM CDT) HGB-A1C 7.9(H) 4.0 - 6.0 % 10/16/2024 6:43 AM CDT [facility] Est Average Glucose 180.0 mg/dL 10/16/2024 6:43 AM CDT [facility] Blood Venipuncture / Unknown 10/16/2024 2:39 AM CDT 10/16/2024 2:46 AM CDT Narrative [facility] - 10/16/2024 6:43 AM CDT HEMOGLOBIN A1C: DIABETIC PATIENTS: WELL-CONTROLLED: 6.2 - 7.0 INTERMEDIATE WELL-CONTROLLED: 7.0 - 9.0 POORLY-CONTROLLED: >9.0 Specimens containing greater than 5% of Hemoglobin F may result in lower than expected % HbA1C results. us Sharita Kahn BALLRO[employer] DANCE INSTRUCTORJENIFFER Velarde CHEMISTRY ORDERABLES Stephie l Result [facility] [address] [place] [address] * (ABNORMAL) Lipid Panel AM (06/24/2019 5:44 AM WELFARE AIDE) CHOLESTEROL 141 <=200 mg/dL 06/24/2019 1:58 PM WELFARE AIDE [facility] TRIGLYCERIDES 158(H) <150 mg/dL 06/24/2019 1:58 PM WELFARE AIDE [facility] HDL CHOLESTEROL 30.4(L) >40 mg/dL 9 1:58 PM WELFARE AIDE [facility] LDL 79 5 - 130 mg/dL 06/24/2019 1:58 PM WELFARE AIDE [facility] VLDL 32 5 - 55 mg/dL 06/24/2019 1:58 PM [facility] CHOL/HDL RATIO 4.6(H) 0.0 - 4.4 06/24/2019 1:58 PM WELFARE AIDE [facility] NON-HDL CHOLESTEROL 110.6 <130 mg/dL 06/24/2019 1:58 PM WELFARE AIDE [facility] LIPID FASTING 06/24/2019 1:58 PM WELFARE AIDE [facility] Blood specimen (specimen) BLOOD SPECIMEN / Unknown Venipuncture / Unknown 06/24/2019 5:44 AM WELFARE AIDE 06/24/2019 1:10 PM WELFARE AIDE Toni Orourke MD CHEMISTRY ORDERABLES Fin al Result [facility] [address] [place] [address] from Last 3 Months or Most Recently [...] measures to stabilize the patient. Care Teams Neonatal Surgeon Relationship Specialty Start Date End Date Prashanth Saldana, [address] [place] [address] PCP - General Physician Manager Family 04/03/19
--- OUTSIDE RECORDS SUMMARY | 2025-04-13 11:10 | XMS_ITS | Clinical Summary ---
Author Organization [facility] ospital Address [address] [place] [address] Care Team Providers Care Penology Teacher Name Role Phone Con Beltrán MD Unavailable [phone] Prashanth Saldana Primary Care Provider [phone] Sidney Russell MD Unavailable [phone] Allergies Active Allergy Reactions Criticality Noted Date [...] help with nausea/vomiting related to gastroparesis. 240 tablet/caps ule 3 025 Active insulin lispro (HumaLOG) 100 [...] 10 DAYS 3 each 3 025 Active blood-glucose sensor (Dexcom G7 Sensor) device USE DIRECTED, CHANGE EVERY 10 DAYS 3 each 3 025 2024 Discontinued Active Problems Problem Noted [...] of bolusing, Average blood sugar-217. Lowest blood sugar- 57 highest-400. In target-48%. Hypoglycemia-1%, hyperglycemia 51% . [...] . Assessment & Plan (07/10/2022 9:22 AM PATIENT RESOURCE COORDINATOR): This is a chronic condition which is not at goal. Unable to Download as he has a new pump and is not connected on [employer]. Type of insulin pump- tandem T slim [...] of less than 70. Encouraged to contact [employer] and have a new pump shipped Discussed [...] statin Assessment & Plan (07/10/2022 9:19 AM PATIENT RESOURCE COORDINATOR): This is a chronic condition which is [...] G6 at home. He was seen in [facility], but missed appointment in the adult diabetes [...] prescribed. Assessment & Plan (08/04/2020 3:50 AM PATIENT RESOURCE COORDINATOR): H/o pancreatitis attributed to hypertriglyceridemia. TGs 215 on 05/27/20. -Continue home fenofibrate and atorvastatin Resolved Problems Problem Noted Date Diagnosed Date Resolved Date Leukocytosis 04/18/2021 04/04/2022 Gallbladder sludge 04/05/2021 Marijuana abuse 04/05/2021 04/04/2022 JACK (acute kidney injury) ([facility]) 10/25/2020 04/04/2022 Diarrhea 10/25/2020 04/04/2022 Hypokalemia 08/04/2020 04/04/2022 Assessment & Plan (08/04/2020 3:59 AM PATIENT RESOURCE COORDINATOR): K to 3.2 after hyperglycemia protocol s/p 40 mEq of IV K in ED. -CTM w/ BMP Nausea and vomiting 07/05/2020 04/04/20 22 Assessment & Plan (08/04/2020 4:10 AM PATIENT RESOURCE COORDINATOR): Patient has chronic N/V, now presenting w/ 3 days of persistent N/V. No abdominal pain. Lipase 15 on presentation. +MJ use. DDx: cyclic vomiting vs. diabetic gastroparesis. -Zofran prn -Pepcid -Can trial Reglan -Encourage MJ cessation Assessment & Plan (07/05/2020 4:24 PM PATIENT RESOURCE COORDINATOR): Etiology likely DKA. Other considerations are PUD [...] 04/04/2022 Assessment & Plan (07/05/2020 4:26 PM PATIENT RESOURCE COORDINATOR): Etiology likely DKA. pH is 7.50 (alkalosis) [...] 04/04/2022 Assessment & Plan (08/04/2020 3:41 AM PATIENT RESOURCE COORDINATOR): Patient multiple past hospitalizations for DKA, most recently in June presenting w/ DKA after 3 days of persistent N/V. BG was 338 w/ AG 18, bicarb 21, ketones 3.2. BG now in the 100s and AG close after hyperglycemia protocol. A1C 10.5 08/02/20. Is a patient of Dr. Swift at [facility] in [place]. Last seen on 07/25 with plan for [...] f/u. Assessment & Plan (07/05/2020 4:21 PM PATIENT RESOURCE COORDINATOR): DKA (ketones 1.4, BG 242, urine glucose [...] regimen is needed at this time. clinical systems educator have talked to Peter and family [...] with diabetes mellitus due to underlying condition ([facility]) 04/04/2022 EKG abnormality 04/04/2022 Choledocholithiasis 04/04/20 Abdominal pain 04/04/2022 Encounters Date Type Department Care Team Description 04/05/2025 Telephone [facility] Gastroenterology [address] [address] Office [address] [place] [address] [phone] Francisca Hopkins, DENTON Follow-up (M[employer]grity) 04/05/2025 Telephone [facility] Medicine Scheduling [address] [place] [address] Thierry Rivera MD Rx appeal status 03/26/2025 Telephone [facility] Medicine Gastroenterology [address] [place] [address] Medical Office Building [address], [address] [place] [phone] Thierry Rivera MD Prior Auth (prucalopride (Motegrity) 2 mg tablet) 03/26/2025 Telephone [facility] Medicine Gastroenterology [address] [place] [address] Medical Office Building [address], [address] [place] [phone] Carmen Irving RN [employer] 03/17/2025 Telephone [facility] Medicine Gastroenterology [address] [place] [address] Office Building [address], [address] [place] [phone] Francisca Hopkins RN [employer]ity 03/17/2025 [facility] Medicine Gastroenterology [address] [place] [address] Medical Office Building [address], [address] [place] [phone] Francisca Hopkins RN [employer]ity Rx 03/14/2025 Orders Only [facility] Group Gastroenterology at [address] [place] [address] Terrence Fitch MD 03/12/2025 Telephone [facility] Gastroenterology [address] [facility] Office Building [address], [address] [place] [address] Camila Cortes Scheduling Appointments (03/12Pt appt canceled per Dr. Rivera. Pt will callback when medication status ) 03/12/2025 Telephone [facility] Gastroenterology [address] [place] [address] Office Building [address], [address] [place] [address] Camila Cortes Pt Call (03/12 Pt grandmother called (Toin) wanted to inform Dr. Rivera that precribed med (motegrity) is requiring prior auth. Wanted to know if another medication can be prescribed or if 04/06 OV should be rescheduled if not approved in time. Msg Dr. Rivera ) 03/12/2025 Telephone [facility] Medical Group Gastroenterology at [address] [place] [address] Vanessa Kenney 03/08/2025 Telephone [facility] Medical Group Gastroenterology at [address] [place] [address] Alfred Garcia MA 03/05/2025 Telephone [facility] Medical Group Gastroenterology at [address] [place] [address] Cristin Tejada LPN 03/05/2025 Telephone [facility] Medical Group Gastroenterology at [address] [place] [address] Alfred Garcia MA 03/04/2025 Telephone [facility] Group Gastroenterology at [address] [place] [address] Alfred Garcia MA 03/02/2025 Telephone [facility] Medical Group Gastroenterology at [address] [place] [address] Alfred Garcia MA 03/01/2025 Orders Only [facility] Medical Group Gastroenterology at [address] [place] [address] Terrence Fitch MD 03/01/2025 Telephone [facility] Medical Group Gastroenterology at [address] [place] [address] Evelin Fischer MA 02/24/2025 Telephone [facility] Gastroenterology [address] [facility] Medical Office Building 4, [address] [place] [address] Carmen Irving RN 02/23/2025 8:45 AM CDT Office Visit [facility] Gastroenterology [address] [facility] 2nd Floor [address] [place] [address] Thierry Rivera MD Gastroparesis (Primary Dx) 02/10/2025 Telephone [facility] Medical Group Diabetes Endocrine Care at [address] [place] [address] Nay Alford NP 01/28/2025 Telephone [facility] Medical Group Gastroenterology at [address] [place] [address] Cristin Tejada LPN 01/28/2025 Telephone [facility] Gastroenterology [address] [facility] Medical Office Building 4, [address] [place] [address] Carmen Irving, D[place] IOV scheduling 01/26/2025 1:30 PM CDT Office Visit [facility] Medical Group Gastroenterology at [address] [place] [address] Terrence Fitch MD Gastroparesis (Primary Dx); Gastroesophageal reflux disease without esophagitis; Marijuana use 01/26/2025 10:00 AM CDT Office Visit [facility] Medical Group Diabetes Endocrine Care at [address] [place] [address] Nay Alford NP Type 1 diabetes mellitus with hyperglycemia (HCC) (Primary Dx); Hypoglycemia; Mixed hyperlipidemia; Tandem T slim Insulin pump in place; Gastroparesis from Last 3 Months Surgical History Surgery Date Site/Laterality Comments ESOPHAGOGASTRODUODENOSCOPY 01/06/2025 Medical History Medical History Date Comments Type 1 diabetes mellitus Diabete s type 1; Comments: [facility] 11/23/2015 - Hx Other Medical high lipids; Co mments: [facility] 11/23/2015 - Hx Other Medical pancreatitis; C omments: [facility] 11/23/2015 - Pancreatitis Asthma Hypertension Hyperlipidemia [...] drink = 0.6 oz pur e alcohol) [facility] Utilities Answer Date Recorded In the past [...] often do you attend chur ch or confucianist services? Never 12/02/2024 Do you belong to any clubs o r organizations such as jain groups, unions, fraternal or athletic groups, or [...] any time in the past 12 m [facility], were you homeless or living in a chcf (including now)? No 12/02/2024 Personal Safety Answer Date Recorded Have you ever been in or are you currently in a harmful physical or emotional relationship or is someone making you feel afraid or unsafe? Denies 01/06/2025 Sex and Gender Information Value Date Recorded Sex Assigned at Not on file Legal Sex Male 4:12 AM PATIENT RESOURCE COORDINATOR Gender Identity Not on file Sexual Orientation [...] Alford NP OPHTH PHOTOGRAPHY Final Result * eGFR (12/02/2024 3:24 AM CDT) [...] ORDERABLES Stephie l Result Performing Organization Address City/[facility]/ZIP Co de Phone Number ALYSSA CACERES [place]) [address] [facility] [place] [address] * (ABNORMAL) Hemoglobin A1c (11/30/2024 8:32 AM CDT) Hgb A1C 8.1(H) 4.0 - 5.6 % Estimated Average Glucose 186 mg/dL ALYSSA CACERES ([place]) Comment: The ADA recommends reporting an estimated Average Glucose (eAG) with all Hemoglobin A1c results using the equation derived from a study of 507 normal and diabetic adults. Minority populations were underrepresented and children were not included. (Diabetes Care 31:2304-8323, 2008). The eAG is not equivalent to a fasting glucose. Blood 11/30/2024 8:32 AM CDT 11/30/2024 8:57 AM CDT Marcelina Cleaning MD LAB BLOOD ORDERABLES Stephie l Result Performing Organization Address City/[facility] Co de Phone Number ALYSSA CACERES [place]) [address] [facility] [place] [address] * Thyroid Function [place] (10/27/2024 8:51 AM CDT) Pathologist [facility] TSH 1.51 0.30 - 4.20 mcIUnit/mL Blood 10/27/2024 8:51 AM CDT 10/27/2024 2:50 PM CDT Nay Alford MOBILE HEALTH VEHICLE OPERATOR LAB BLOOD ORDERABLES Final Resu lt Performing Organization Address City/[facility]/ZIP Co de Phone Number ALYSSA GALDINO [address] Department [place] [address] * (ABNORMAL) Albumin Creatinine Ratio, Urine (10/27/2024 [...] 10/27/2024 2:50 PM CDT us Nay Alford MOBILE HEALTH VEHICLE OPERATOR LAB URINE ORDERABLES Final Resu lt [facility] [address] Department [place] [address] * (ABNORMAL) Lipid panel (10/27/2024 8:51 AM [...] BLOOD ORDERABLES Final Resu lt ALYSSA AHMADI [address] Department [place] [address] * DIABETES FOOT EXAM (04/08/2018) Diabetic Foot Exam Normal Historical Provider MD HEALTH MAINTENANCE Final Result from Last 3 Months or Most Recently Relevant to Health Maintenance Insurance [facility] Advance Directives For more information, please contact: [phone] Documents on File Type Date Recorded Patient Integration Developer Expl anation ADVANCE DIRECTIVE 05/26/2020 6:51 PM [...] 11:49 AM 10/18/2024 1:28 PM Care Teams Penology Teacher Relationship Specialty Start Date End Date Prashanth Saldana PA [address] [place] [address] PCP - General Family Practice 05/25/20 Con Beltrán MD Referring Physician Pediatric Endocrinology 12/20/18 Sidney Russell MD [address] [place] [address] Consulting Physician Gastroenterology 04/19/21
--- OUTSIDE RECORDS SUMMARY | 2025-04-13 11:10 | XMS_ITS | Encounter Summary ---
Author Organization [facility] Address [address] [place] [address] Phone Care Team Providers Care Software Firmware Engineer Name Role Phone Cristobal Aguilera MD Primary Care Provider oCn Beltrán MD Unavailable [phone] Azra Yarbrough RN Unavailable [phone] Cristobal Aguilera MD Primary Care Provider Prashanth Saldana Primary Care Provider [phone] Sidney Russell MD Unavailable [phone] Reason for Visit * Reason Onset Date Comments left msg. for family to c/b and sched. 3mo appt. 03/12/2018 Encounter Details Date Type Department Care Team (Late st Contact Info) Description 03/12/2018 Telephone [facility] Pediatric Endocrinology [facility] 2nd [place] [address] [place] [address] Ngoc Lee left msg. for family to c/b and sched. 3mo appt. Social History Tobacco Use Types Packs/Day Years Used Date Smoking Tobacco: Never Alcohol Use Standard Drinks/Week Comments No 0 (1 standard drink = 0.6 oz pur e alcohol) [facility] Utilities Answer Date Recorded In the past 12 months has [employer] electric, gas, oil, or water company threatened [...] often do you attend chur ch or episcopal services? Never 12/02/2024 Do you belong to any clubs o r organizations such as caodaism groups, unions, fraternal or athletic groups, or [...] were you homeless or living in a nursing home (including now)? No 12/02/2024 Personal Safety Answer Date Recorded Have you ever been in or are you currently in a harmful physical or emotional relationship or is someone making you feel afraid or unsafe? Denies 01/06/2025 Sex and Gender Information Value Date Recorded Sex Assigned at Not on file Legal Sex Male 4:12 AM RN NIGHT Gender Identity Not on file Sexual Orientation Not on file documented as of this encounter Functional Status * AUDIT-C Score Answer Date of Assessment Author 0 01/06/2025 7:35 AM CDT Levar Gerber RN * Question Answer Date of Assessment Author Q1: How often do you have a drink containing alcohol? Never 01/26/2025 1:27 PM CDT Shaila Carreon MA Q2: How many drinks containing alcohol do you have on a typical day when you are drinking? Patient does not drink 01/06/2025 7:35 AM CDT Charito Gerber RN Q3: How often do you have six or more drinks on one occasion? Never 01/06/2025 7:35 AM CDT Charito Gerber RN documented as of this encounter Miscellaneous Notes * Telephone Encounter - Ngoc Lee - 04/12/2025 3:47 PM CDT ERROR documented in this encounter Plan of Treatment Not on file documented as of this encounter Visit Diagnoses Not on filedocumented in this encounter Additional Health Concerns Infection Onset Date Last Indicated Resolved Time COVID: Suspected 12/27/2019 12/27/2019 01/10/2020 3:05 AM CDT COVID: Suspected 01/16/2020 01/16/2020 01/30/2020 3:05 AM CDT COVID: Suspected 05/26/2020 05/26/2020 05/27/2020 10:23 AM RN NIGHT Respiratory Infection (ALLIE), contact + droplet Comment:IP Review - There is a significant event note with an alternative diagnosis and at least one negative COVID-19 test documented in Epic. Patient meets criteria for COVID-19 isolation discontinuation. ` Automatically added due to negative COVID-19 result. 05/27/2020 05/27/2020 05/27/2020 12:46 PM RN NIGHT COVID: Suspected 07/04/2020 07/04/2020 07/04/2020 6:02 PM RN NIGHT Respiratory Infection (ALLIE), contact + droplet Comment:Patient classified as Low Risk for COVID-19 and has one negative COVID-19 test. Patient meets criteria for COVID-19 isolation discontinuation 07/04/2020 [place] Automatically added due to negative COVID-19 result. 07/04/2020 07/04/2020 07/04/2020 8:[address] COVID: Suspected 08/03/2020 08/03/2020 08/03/2020 10:50 PM RN NIGHT Respiratory Infection (ALLIE), contact + droplet Comment:08/04/2020 [...] as of this encounter Care Teams Software Firmware Engineer Relationship Specialty Start Date End Date Cristobal Aguilera MD PCP - General 10/19/16 11/15/19 Cristobal Aguilera MD PCP - General 11/16/19 05/24/20 Prashanth Saldana PA [address] [place] [address] PCP - General Family Practice 05/25/20 Con Beltrán MD Referring Physician Pediatric Endocrinology 12/20/18 Azra Yarbrough RN [address] [address] [facility] Outpatient Environmental Projects Advisor 11/16/19 12/15/19 Sidney Russell MD [address] [place] [address] Consulting Physician Gastroenterology 04/19/21 documented as of this encounter
--- OUTSIDE RECORDS SUMMARY | 2025-04-13 11:10 | XMS_ITS | Clinical Summary ---
Author Organization [facility] Address [address] [facility] [place] [address] Care Team Providers Care Speech Coach Name Role Phone Unavailable Primary Care Provider Unavailabl e Source Comments [facility] [employer],non-owned Affiliates and Associated Physician Practices is amultiple site organization consisting of ambulatory clinics and hospital sitesin [place], [place], [place] and [place]. This disclosure is being madepursuant to the Care Everywhere program and may not contain all information available regarding this patient. Last updated 18.[facility] [employer] Allergies No known active allergies Medications * [...] CREATININE 04/02/20212019, 04/02/2020, 04/02/2020, Additional history exists DEPRESSION SCREENING 07/22/2024 DIABETES - URINE PROTEIN SCREENING 07/22/2024 COVID-19 VACCINE ( - season) 2025 INFLUENZA VACCINE (#1) 2025 ZOSTER VACCINE (1 [...] - 105 mg/dL 04/02/2020 3:39 AM CDT [facility] Sodium 137 136 - 145 mmol/L 04/02/2020 3:39 AM CDT [facility] Potassium 3.0(L) 3.5 - 5.1 mmol/L 04/02/2020 3:39 AM CDT [facility] Chloride 104 98 - 107 mmol/L 04/02/2020 3:39 AM CDT [facility] CO2 20(L) 23 - 31 mmol/L 04/02/2020 3:39 AM CDT [facility] Calcium 9.0 8.4 - 10.4 mg/dL 04/02/2020 3:39 AM CDT [facility] Anion Gap 13 8 - 16 mmol/L 04/02/2020 3:39 AM CDT [facility] BUN 6(L) 8.9 - 20.6 mg/dL 04/02/2020 3:39 AM CDT [facility] Creatinine 0.86 0.72 - 1.25 mg/dL 04/02/2020 3:39 AM CDT [facility] eGFR by MDRD >60 >60 mL/min/1.7 3m2 04/02/2020 3:39 AM CDT [facility] eGFR by MDRD >60 >60 mL/min/1.7 3m2 04/02/2020 3:39 AM CDT [facility] Blood BLOOD SPECIMEN / Unknown Lab Venipuncture / Unknown 04/02/2020 3:06 AM CDT 04/02/2020 3:20 AM CDT Robinson Wilkins MD LAB - CHEMISTRY ORDERABLES F inal Result [facility] [address] [place] [address] * (ABNORMAL) HEMOGLOBIN A1C (04/01/2020 12:04 PM CDT) Hemoglobin A1c 8.9(H) 4.2 - 5.6 % 04/01/2020 1:31 PM CDT [facility] Estimated Average Glucose 209 mg/dL 04/01/2020 1:31 PM CDT [facility] Blood BLOOD SPECIMEN / Unknown Venipuncture / Unknown 04/01/2020 12:04 PM CDT 04/01/2020 12:08 PM CDT Narrative [facility] - 04/01/2020 1:31 PM CDT The following cutoff levels are recommended by [place] [employer]. A1c > 6.5% : considered [...] LAB - CHEMISTRY ORDERABLES F inal Result [facility] [address] [place] [address] from Last 3 Months or Most Recently Relevant to Health Maintenance [place] [address] [place] [address] [facility] Advance Directives * Full Code (Latest Code Status on File) Date Activated Date Inactivated Comments 04/01/2020 1:52 PM 04/02/2020 1:54 PM
--- OUTSIDE RECORDS SUMMARY | 2025-04-13 11:10 | XMS_ITS | Encounter Summary ---
Author Organization [facility] Address [address] [place] [address] Phone Care Team Providers Care Financial Market Dealer Name Role Phone Prashanth Saldana Primary Care Provider [phone] Heidi Swift MD Unavailable Reason for Visit * Reason Comments Medication Refill Encounter Details Date Type Department Care Team (Late st Contact Info) Description 08/28/2021 Refill [facility] - Endocrinology - [place] [address] [place] [address] Heidi Swift MD [address] [address] Medication Refill Social History Tobacco [...] Coronavirus / COVID-19? Yes 08/01/2021 9:49 AM CLINICAL CARE COORDINATOR documented as of this encounter Miscellaneous Notes * Telephone Encounter - Eli Jones RN - 08/28/2021 9:00 AM CLINICAL CARE COORDINATOR Requested Prescriptions Pending Prescriptions Disp Refills ??? insulin lispro (HumaLOG) 100 UNIT/ML Solution [Pharmacy Med Name: HUMALOG 100 UNIT/ML VIAL] 30 mL 0 Sig: UP TO 100 UNITS/DAY PER INSULIN PUMP SETTINGS Next appt: 09/12/2021 ICAL CARE COORDINATOR documented in this encounter Plan of Treatment Not on file documented as of this encounter Visit Diagnoses Not on filedocumented in this encounter Additional Health Concerns Infection Onset Date Last Indicated Resolved Time COVID - 19 04/13/2022 04/13/2022 04/13/2022 10:4 2 AM CDT COVID - 19 05/17/2022 05/17/2022 05/27/2022 12:1 6 AM CDT Respiratory Rule-Out 05/17/2022 05/17/2022 022 12:16 AM CLINICAL CARE COORDINATOR COVID - 19 06/27/2022 06/27/2022 07/07/2022 12:1 6 AM CLINICAL CARE COORDINATOR Influenza 06/27/2022 06/27/2022 07/04/2022 12:1 6 AM CLINICAL CARE COORDINATOR COVID - 19 04/05/2024 04/05/2024 04/05/2024 10:2 0 PM CDT COVID - 19 10/16/2024 10/16/2024 10/16/2024 7:05 AM CDT documented as of this encounter Care Teams Financial Market Dealer Relationship Specialty Start Date End Date Prashanth Saldana PAC [address] [place] [id number] PCP - General Physician Cemetery Vault Installer 04/03/19 Heidi Swift MD [address] [address] Consulting Physician Endocrinology 08/09/20 09/23/24 documented as of this encounter
--- OUTSIDE RECORDS SUMMARY | 2025-04-13 11:10 | XMS_ITS | Encounter Summary ---
Author Organization [facility] Address [address] [place] [address] Phone Care Team Providers Care Graphic Artist Name Role Phone Prashanth Saldana Primary Care Provider [phone] Heidi Swift MD Unavailable Reason for Visit * Reason Comments Medication Refill Encounter Details Date Type Department Care Team (Late st Contact Info) Description 12/27/2021 Refill [facility] - Endocrinology - [place] #2 [place] [address] Heidi Swift MD [address] [address] Medication Refill Social History Tobacco [...] Notes * Telephone Encounter - Saadia Lawson, [facility] - 12/29/2021 11:37 AM CDT Patient calling requesting refill of: Requested Prescriptions Pending Prescriptions Disp Refills ??? 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 [...] Respiratory Rule-Out 05/17/2022 05/17/2022 022 12:16 AM MONORAIL CRANE OPERATOR COVID - 19 06/27/2022 06/27/2022 07/07/2022 12:1 6 AM MONORAIL CRANE OPERATOR Influenza 06/27/2022 06/27/2022 07/04/2022 12:1 6 AM MONORAIL CRANE OPERATOR COVID - 19 04/05/2024 04/05/2024 04/05/2024 10:2 0 PM CDT COVID - 19 10/16/2024 10/16/2024 10/16/2024 7:05 AM CDT documented as of this encounter Care Teams Graphic Artist Relationship Specialty Start Date End Date Prashanth Saldana PAC [address] [place] [address] PCP - General Physician Stone Belt Sander 04/03/19 Heidi Swift MD [address] [address] Consulting Physician Endocrinology 08/09/20 09/23/24 documented as of this encounter
--- OUTSIDE RECORDS SUMMARY | 2025-04-13 11:10 | XMS_ITS | Encounter Summary ---
Author Organization [facility] Address [address] [place] [address] Phone Care Team Providers Care Button Maker And Installer Name Role Phone Prashanth Saldana Primary Care Provider [phone] Heidi Swift MD Unavailable Reason for Visit * Reason Comments Medication Refill Encounter Details Date Type Department Care Team (Late st Contact Info) Description 09/17/2021 Refill [facility] - Endocrinology - [place] #2 [place] [address] Heidi Swift MD #[address] [address] Medication Refill Social History Tobacco [...] Eli Jones RN - 09/19/2021 3:39 PM SEALER AIRCRAFT Requested Prescriptions Pending Prescriptions Disp Refills ??? Continuous Blood Gluc Transmit (Dexcom G6 Transmitter) Misc [Pharmacy Med Name: DEXCOM G6 TRANSMITTER] 3 Si EACH BY DOES NOT APPLY ROUTE EVERY 90 DAYS. CHANGE SENSOR EVERY 90 DAYS. Next appt: Message sent to schedule follow up. ER AIRCRAFT documented in this encounter Plan of Treatment [...] Respiratory Rule-Out 05/17/2022 05/17/2022 022 12:16 AM SEALER AIRCRAFT COVID - 19 06/27/2022 06/27/2022 07/07/2022 12:1 6 AM SEALER AIRCRAFT Influenza 06/27/2022 06/27/2022 07/04/2022 12:1 6 AM SEALER AIRCRAFT COVID - 19 04/05/2024 04/05/2024 04/05/2024 10:2 0 PM CDT COVID - 19 10/16/2024 10/16/2024 10/16/2024 7:05 AM CDT documented as of this encounter Care Teams Button Maker And Installer Relationship Specialty Start Date End Date Prashanth Saldana PAC [address] [place] [address] PCP - General Physician Lawyers 04/03/19 Heidi Swift MD #[address] [address] Consulting Physician Endocrinology 08/09/20 09/23/24 documented as of this encounter
--- OUTSIDE RECORDS SUMMARY | 2025-04-13 11:10 | XMS_ITS | Encounter Summary ---
Author Organization [facility] Address [address] [place] [address] Phone Care Team Providers Care Commercial Assistant Name Role Phone Prashanth Saldana Primary Care Provider [phone] Heidi Swift MD Unavailable Reason for Visit * Reason Comments Medication Refill Encounter Details Date Type Department Care Team (Late st Contact Info) Description 07/24/2021 Refill [facility] - Endocrinology - [place] #2 [place] [address] Heidi Swift MD #[address] [address] Medication Refill Social History Tobacco [...] COVID-19? No / Unsure 07/07/2021 3:14 PM STONE MILL OPERATOR documented as of this encounter Miscellaneous Notes * Telephone Encounter - Eli Jones RN - 07/25/2021 8:10 AM STONE MILL OPERATOR Requested Prescriptions Pending Prescriptions Disp Refills ??? Continuous Blood Gluc Sensor (Dexcom G6 Sensor) Misc [Pharmacy Med Name: DEXCOM G6 SENSOR] Sig: CHANGE SENSOR EVERY 10 DAYS. Next appt: 08/01/2021 E MILL OPERATOR documented in this encounter Plan of [...] Respiratory Rule-Out 05/17/2022 05/17/2022 022 12:16 AM STONE MILL OPERATOR COVID - 19 06/27/2022 06/27/2022 07/07/2022 12:1 6 AM STONE MILL OPERATOR Influenza 06/27/2022 06/27/2022 07/04/2022 12:1 6 AM STONE MILL OPERATOR COVID - 19 04/05/2024 04/05/2024 04/05/2024 10:2 0 PM CDT COVID - 19 10/16/2024 10/16/2024 10/16/2024 7:05 AM CDT documented as of this encounter Care Teams Commercial Assistant Relationship Specialty Start Date End Date Prashanth Saldana [facility] [address] [place] [address] PCP - General Physician Cut Pressman 04/03/19 Heidi Swift MD #[address] [phone] Consulting Physician Endocrinology 08/09/20 09/23/24 documented as of this encounter
== END 2025-04-13 10:36 | disposition home or self-care (01) ==
PROVIDERS: Emergency Provider Nurse Practitioner; PCP Physician Assistant
DX: R10.9 Unspecified abdominal pain (principal); F12.90 Cannabis use, unspecified, uncomplicated; E10.43 Type 1 diabetes mellitus with diabetic autonomic (poly)neuropathy; K31.84 Gastroparesis; Z79.4 Long term (current) use of insulin; E78.00 Pure hypercholesterolemia, unspecified
CPT/HCPCS: 99211; G0463

== ENCOUNTER 2025-04-16 08:41 | Emergency (ER) | payer OTHER, SELFPAY ==
--- OUTSIDE RECORDS SUMMARY | 2025-04-16 08:44 | XMS_ITS | Encounter Summary ---
Author Organization [facility] Address [address] [place] [address] Phone Care Team Providers Care Launchman Name Role Phone Prashanth Saldana Primary Care Provider [phone] Heidi Swift MD Unavailable Reason for Visit * Reason Comments Medication Refill Encounter Details Date Type Department Care Team (Late st Contact Info) Description 09/17/2021 Refill [facility] - Endocrinology - [place] #2 [place] [address] Heidi Swift MD #[address] [address] Medication Refill Social History Tobacco [...] Eli Jones RN - 09/19/2021 3:39 PM PUBLIC SAFETY DIRECTOR Requested Prescriptions Pending Prescriptions Disp Refills ??? Continuous Blood Gluc Transmit (Dexcom G6 Transmitter) Misc [Pharmacy Med Name: DEXCOM G6 TRANSMITTER] 3 Si EACH BY DOES NOT APPLY ROUTE EVERY 90 DAYS. CHANGE SENSOR EVERY 90 DAYS. Next appt: Message sent to schedule follow up. IC SAFETY DIRECTOR documented in this encounter Plan of Treatment [...] Respiratory Rule-Out 05/17/2022 05/17/2022 022 12:16 AM PUBLIC SAFETY DIRECTOR COVID - 19 06/27/2022 06/27/2022 07/07/2022 12:1 6 AM PUBLIC SAFETY DIRECTOR Influenza 06/27/2022 06/27/2022 07/04/2022 12:1 6 AM PUBLIC SAFETY DIRECTOR COVID - 19 04/05/2024 04/05/2024 04/05/2024 10:2 0 PM CDT COVID - 19 10/16/2024 10/16/2024 10/16/2024 7:05 AM CDT documented as of this encounter Care Teams Launchman Relationship Specialty Start Date End Date Prashanth Saldana PAC [address] [place] [address] PCP - General Physician Bilingual Nanny 04/03/19 Heidi Swift MD #[address] [phone] Consulting Physician Endocrinology 08/09/20 09/23/24 documented as of this encounter
--- OUTSIDE RECORDS SUMMARY | 2025-04-16 08:44 | XMS_ITS | Clinical Summary ---
Author Organization [facility] Address [address] [place] [address] Care Team Providers Care Education Faculty Member Name Role Phone Con Beltrán MD Unavailable [phone] Prashanth Saldana Primary Care Provider [phone] Sidney Russell MD Unavailable Allergies Active Allergy [...] of bolusing. Average blood sugar-243. Lowest blood sugar- 40 highest-400. In target- 33%. Hypoglycemia-2%-less than 70. . Assessment & Plan (07/10/2022 9:22 AM TRIPLE DRUM OPERATOR): This is a chronic condition which is not at goal. Unable to Download as he has a new pump and is not connected on ilohoect. Type of insulin pump- tandem T slim [...] of less than 70. Encouraged to contact [employer] and have a new pump shipped Discussed [...] statin Assessment & Plan (07/10/2022 9:19 AM TRIPLE DRUM OPERATOR): This is a chronic condition which [...] G6 at home. He was seen in [facility], but missed appointment in the [...] prescribed. Assessment & Plan (08/04/2020 3:50 AM TRIPLE DRUM OPERATOR): H/o pancreatitis attributed to hypertriglyceridemia. TGs 215 on 05/27/20. -Continue home fenofibrate and atorvastatin Resolved Problems Problem Noted Date Diagnosed Date Resolved Date Leukocytosis 04/18/2021 04/04/2022 Gallbladder sludge 04/05/2021 Marijuana abuse 04/05/2021 04/04/2022 JACK (acute kidney injury) ([facility]) 10/25/2020 04/04/2022 Diarrhea 10/25/2020 04/04/2022 Hypokalemia 08/04/2020 04/04/2022 Assessment & Plan (08/04/2020 3:59 AM TRIPLE DRUM OPERATOR): K to 3.2 after hyperglycemia protocol s/p 40 mEq of IV K in ED. -CTM w/ BMP Nausea and vomiting 07/05/2020 04/04/20 22 Assessment & Plan (08/04/2020 4:10 AM TRIPLE DRUM OPERATOR): Patient has chronic N/V, now presenting w/ 3 days of persistent N/V. No abdominal pain. Lipase 15 on presentation. +MJ use. DDx: cyclic vomiting vs. diabetic gastroparesis. -Zofran prn -Pepcid -Can trial Reglan -Encourage MJ cessation Assessment & Plan (07/05/2020 4:24 PM TRIPLE DRUM OPERATOR): Etiology likely DKA. Other considerations are [...] 04/04/2022 Assessment & Plan (07/05/2020 4:26 PM TRIPLE DRUM OPERATOR): Etiology likely DKA. pH is 7.50 [...] 04/04/2022 Assessment & Plan (08/04/2020 3:41 AM TRIPLE DRUM OPERATOR): Patient multiple past hospitalizations for DKA, most recently in June presenting w/ DKA after 3 days of persistent N/V. BG was 338 w/ AG 18, bicarb 21, ketones 3.2. BG now in the 100s and AG close after hyperglycemia protocol. A1C 10.5 08/02/20. Is a patient of Dr. [facility] [place]. Last seen on 07/25 with plan for [...] f/u. Assessment & Plan (07/05/2020 4:21 PM TRIPLE DRUM OPERATOR): DKA (ketones 1.4, BG 242, urine [...] insulin regimen is needed at this time. family educator have talked to Peter and family [...] to underlying condition ([facility]) 04/04/2022 EKG abnormality 04/04/2022 Choledocholithiasis 04/04/20 Abdominal pain 04/04/2022 Encounters Date Type Department Care Team Description 04/05/2025 Telephone [facility] Gastroenterology [address] [place] [address] Office Building [address] [place] [phone] Francisca Hopkins, D[place] Follow-up (Motegrity) 04/05/2025 Telephone [facility] Medicine Scheduling [address] [place] [address] Thierry Rivera MD Rx appeal status 03/26/2025 Telephone [facility] Medicine Gastroenterology [address] [place] [address] Medical Office Building [address], [address] [place] [phone] Thierry Rivera MD Prior Auth (prucalopride (Motegrity) 2 mg tablet) 03/26/2025 Telephone [facility] Medicine Gastroenterology [address] [place] [address] Medical Office Building [address], [address] [place] [phone] Carmen Irving RN Motegrity 03/17/2025 Telephone [facility] Medicine Gastroenterology [address] [place] [address] Office Building [address], [address] [place] [phone] Francisca Hopkins RN Motegrity 03/17/2025 [facility] Medicine Gastroenterology [address] [place] [address] Medical Office Building [address], [address] [place] [phone] Francisca Hopkins RN Motegrity Rx 03/14/2025 Orders Only [facility] Gastroenterology at [address] [place] [address] Terrence Fitch MD 03/12/2025 Telephone [facility] Gastroenterology [address] [facility] Office Building 4, [address] [place] [address] Camila Cortes Scheduling Appointments (03/12Pt appt canceled per Dr. Rivera. Pt will callback when medication status ) 03/12/2025 Telephone [facility] Gastroenterology [address] [place] [address] Office Building [address], [address] [place] [address] Camila Cortes Pt Call (03/12 Pt grandmother called (Toin) wanted to inform Dr. Rivera that precribed med (motegrity) is requiring prior auth. Wanted to know if another medication can be prescribed or if 04/06 OV should be rescheduled if not approved in time. Msg Dr. Rivera ) 03/12/2025 Telephone [facility] Gastroenterology at [address] [place] [address] Vanessa Kenney 03/08/2025 Telephone [facility] Gastroenterology at [address] [place] [address] Alfred Garcia MA 03/05/2025 Telephone [facility] Gastroenterology at [address] [place] [address] Cristin Tejada LPN 03/05/2025 Telephone [facility] Gastroenterology at [address] [place] [address] Alfred Garcia MA 03/04/2025 Telephone [facility] Gastroenterology at [address] [place] [address] Alfred Garcia MA 03/02/2025 Telephone [facility] Gastroenterology at [address] [place] [address] Alfred Garcia MA 03/01/2025 Orders Only [facility] Gastroenterology at [address] [place] [address] Terrence Fitch MD 03/01/2025 Telephone [facility] Gastroenterology at [address] [place] [address] Evelin Fischer MA 02/24/2025 Telephone [facility] Gastroenterology [address] [facility] Medical Office Building 4, [address] [place] [address] Carmen Irving RN 02/23/2025 8:45 AM CDT Office Visit [facility] Gastroenterology [address] [facility] 2nd Floor [address] [place] [address] Thierry Rivera MD Gastroparesis (Primary Dx) 02/10/2025 Telephone [facility] Diabetes Endocrine Care at [address] [place] [address] Nay Alford NP 01/28/2025 Telephone [facility] Gastroenterology at [address] [place] [address] Cristin Tejada LPN 01/28/2025 Telephone [facility] Gastroenterology [address] [facility] Medical Office Building 4, [address] [place] [address] Carmen Irving, D[place] IOV scheduling 01/26/2025 1:30 PM CDT Office Visit [facility] Gastroenterology at [address] [place] [address] Terrence Fitch MD Gastroparesis (Primary Dx); Gastroesophageal reflux disease without esophagitis; Marijuana use 01/26/2025 10:00 AM CDT Office Visit [facility] Diabetes Endocrine Care at [address] [place] [address] Nay Alford NP Type 1 [...] often do you attend chur ch or yarsanism services? Never 12/02/2024 Do you belong to any clubs o r organizations such as adventism groups, unions, fraternal or athletic groups, or [...] any time in the past 12 m [place], were you homeless or living in a mcfp (including now)? No 12/02/2024 Personal Safety Answer Date Recorded Have you ever been in or are you currently in a harmful physical or emotional relationship or is someone making you feel afraid or unsafe? Denies 01/06/2025 Sex and Gender Information Value Date Recorded Sex Assigned at Not on file Legal Sex Male 4:12 AM TRIPLE DRUM OPERATOR Gender Identity Not on file Sexual [...] ORDERABLES Stephie l Result Performing Organization Address City/[facility]/ZIP Co de Phone Number ALYSSA CACERES [place]) [address] [facility] [place] [address] * (ABNORMAL) Hemoglobin A1c (11/30/2024 8:32 AM CDT) Hgb A1C 8.1(H) 4.0 - 5.6 % Estimated Average Glucose 186 mg/dL ALYSSA CACERES ([place]) Comment: The ADA recommends reporting an estimated Average Glucose (eAG) with all Hemoglobin A1c results using the equation derived from a study of 507 normal and diabetic adults. Minority populations were underrepresented and children were not included. (Diabetes Care 31:7649-0601, 2008). The eAG is not equivalent to a fasting glucose. Blood 11/30/2024 8:32 AM CDT 11/30/2024 8:57 AM CDT Marcelina Cleaning MD LAB BLOOD ORDERABLES Stephie l Result Performing Organization Address City/[facility] Co de Phone Number ALYSSA CACERES [place]) [address] [facility] [place] [address] * Thyroid Function Gem (10/27/2024 8:51 AM CDT) Pathologist [facility] TSH 1.51 0.30 - 4.20 mcIUnit/mL Blood 10/27/2024 8:51 AM CDT 10/27/2024 2:50 PM CDT Nay Alford LOAN REVIEWER LAB BLOOD ORDERABLES Final Resu lt Performing Organization Address City/[facility]/ZIP Co de Phone Number ALYSSA GALDINO [address] Department [place] [address] * (ABNORMAL) Albumin Creatinine Ratio, Urine (10/27/2024 [...] 10/27/2024 2:50 PM CDT us Nay Alford LOAN REVIEWER LAB URINE ORDERABLES Final Resu lt [facility] [address] Department [place] [address] * (ABNORMAL) Lipid panel (10/27/2024 8:51 AM [...] BLOOD ORDERABLES Final Resu lt ALYSSA AHMADI [address] Department [place] [address] * DIABETES FOOT EXAM (04/08/2018) Diabetic Foot Exam Normal Historical Provider MD HEALTH MAINTENANCE Final Result from Last 3 Months or Most Recently Relevant to Health Maintenance Insurance [facility] Advance Directives For more information, please contact: [phone] Documents on File Type Date Recorded Patient Remarketing Rep Expl anation ADVANCE DIRECTIVE 05/26/2020 6:51 PM [...] 11:49 AM 10/18/2024 1:28 PM Care Teams Education Faculty Member Relationship Specialty Start Date End Date Prashanth Saldana PA [address] [place] [address] PCP - General Family Practice 05/25/20 Con Beltrán MD Referring Physician Pediatric Endocrinology 12/20/18 Sidney Russell MD [address] [place] [address] Consulting Physician Gastroenterology 04/19/21
--- OUTSIDE RECORDS SUMMARY | 2025-04-16 08:44 | XMS_ITS | Clinical Summary ---
Author Organization [facility] Address [address] [place] [address] Care Team Providers Care Client Experience Manager Name Role Phone Unavailable Primary Care Provider Unavailabl e Source Comments [facility],non-owned Affiliates and Associated Physician Practices is amultiple site organization consisting of ambulatory clinics and hospital sitesin [place], [place], [place] and [place]. This disclosure is being madepursuant to the Care Everywhere program and may not contain all information available regarding this patient. Last updated 18.[facility] Allergies No known active allergies Medications * [...] - 105 mg/dL 04/02/2020 3:39 AM CDT [facility] Sodium 137 136 - 145 mmol/L 04/02/2020 3:39 AM CDT [facility] Potassium 3.0(L) 3.5 - 5.1 mmol/L 04/02/2020 3:39 AM CDT [facility] Chloride 104 98 - 107 mmol/L 04/02/2020 3:39 AM CDT [facility] CO2 20(L) 23 - 31 mmol/L 04/02/2020 3:39 AM CDT [facility] Calcium 9.0 8.4 - 10.4 mg/dL 04/02/2020 3:39 AM CDT [facility] Anion Gap 13 8 - 16 mmol/L 04/02/2020 3:39 AM CDT [facility] BUN 6(L) 8.9 - 20.6 mg/dL 04/02/2020 3:39 AM CDT [facility] Creatinine 0.86 0.72 - 1.25 mg/dL 04/02/2020 3:39 AM CDT [facility] eGFR by MDRD >60 >60 mL/min/1.7 3m2 04/02/2020 3:39 AM CDT [facility] eGFR by MDRD >60 >60 mL/min/1.7 3m2 04/02/2020 3:39 AM CDT [facility] Blood BLOOD SPECIMEN / Unknown Lab Venipuncture / Unknown 04/02/2020 3:06 AM CDT 04/02/2020 3:20 AM CDT Robinosn Wilkins MD LAB - CHEMISTRY ORDERABLES F inal Result [facility] [address] [place] [address] * (ABNORMAL) HEMOGLOBIN A1C (04/01/2020 12:04 PM CDT) Hemoglobin A1c 8.9(H) 4.2 - 5.6 % 04/01/2020 1:31 PM CDT [facility] Estimated Average Glucose 209 mg/dL 04/01/2020 1:31 PM CDT [facility] Blood BLOOD SPECIMEN / Unknown Venipuncture / Unknown 04/01/2020 12:04 PM CDT 04/01/2020 12:08 PM CDT Narrative [facility] - 04/01/2020 1:31 PM CDT The following cutoff levels are recommended by [place] [employer]. A1c > 6.5% : considered [...] LAB - CHEMISTRY ORDERABLES F inal Result [facility] [address] [place] [address] from Last 3 Months or Most Recently Relevant to Health Maintenance [place] [address] [address] [place] [address] [facility] Advance Directives * Full Code (Latest Code Status on File) Date Activated Date Inactivated Comments 04/01/2020 1:52 PM 04/02/2020 1:54 PM
--- OUTSIDE RECORDS SUMMARY | 2025-04-16 08:44 | XMS_ITS | Encounter Summary ---
Author Organization [facility] Address [address] [place] [address] Phone Care Team Providers Care Hand Cigar Making Supervisor Name Role Phone Prashanth Saldana Primary Care Provider [phone] Heidi Swift MD Unavailable Reason for Visit * Reason Comments Medication Refill Encounter Details Date Type Department Care Team (Late st Contact Info) Description 12/27/2021 Refill [facility] - Endocrinology - [place] [address] [place] [address] Heidi Swift MD [address] [address] Medication Refill Social History Tobacco [...] Notes * Telephone Encounter - Saadia Lawson, [facility] - 12/29/2021 11:37 AM CDT Patient calling requesting refill of: Requested Prescriptions Pending Prescriptions Disp Refills ??? 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 and will have to call back [...] Respiratory Rule-Out 05/17/2022 05/17/2022 022 12:16 AM COMPLIANCE ASSOCIATE COVID - 19 06/27/2022 06/27/2022 07/07/2022 12:1 6 AM COMPLIANCE ASSOCIATE Influenza 06/27/2022 06/27/2022 07/04/2022 12:1 6 AM COMPLIANCE ASSOCIATE COVID - 19 04/05/2024 04/05/2024 04/05/2024 10:2 0 PM CDT COVID - 19 10/16/2024 10/16/2024 10/16/2024 7:05 AM CDT documented as of this encounter Care Teams Hand Cigar Making Supervisor Relationship Specialty Start Date End Date Prashanth Saldana PAC [address] [place] [id number] PCP - General Physician Media Traffic Manager 04/03/19 Heidi Swift MD [address] [address] Consulting Physician Endocrinology 08/09/20 09/23/24 documented as of this encounter
--- OUTSIDE RECORDS SUMMARY | 2025-04-16 08:44 | XMS_ITS | Encounter Summary ---
Author Organization [facility] Address [address] [place] [address] Phone Care Team Providers Care Plasterer Foreman Name Role Phone Prashanth Saldana Primary Care Provider [phone] Heidi Swift MD Unavailable Reason for Visit * Reason Comments Medication Refill Encounter Details Date Type Department Care Team (Late st Contact Info) Description 07/24/2021 Refill [facility] - Endocrinology - [place] [address] [place] [address] Heidi Swift MD [address] [id number] Medication Refill Social History Tobacco [...] COVID-19? No / Unsure 07/07/2021 3:14 PM ART GLASS DESIGNER documented as of this encounter Miscellaneous Notes * Telephone Encounter - Eli Jones RN - 07/25/2021 8:10 AM ART GLASS DESIGNER Requested Prescriptions Pending Prescriptions Disp Refills ??? Continuous Blood Gluc Sensor (Dexcom G6 Sensor) Misc [Pharmacy Med Name: DEXCOM G6 SENSOR] Sig: CHANGE SENSOR EVERY 10 DAYS. Next appt: 08/01/2021 GLASS DESIGNER documented in this encounter Plan of Treatment [...] Respiratory Rule-Out 05/17/2022 05/17/2022 022 12:16 AM ART GLASS DESIGNER COVID - 19 06/27/2022 06/27/2022 07/07/2022 12:1 6 AM ART GLASS DESIGNER Influenza 06/27/2022 06/27/2022 07/04/2022 12:1 6 AM ART GLASS DESIGNER COVID - 19 04/05/2024 04/05/2024 04/05/2024 10:2 0 PM CDT COVID - 19 10/16/2024 10/16/2024 10/16/2024 7:05 AM CDT documented as of this encounter Care Teams Plasterer Foreman Relationship Specialty Start Date End Date Prashanth aSldana [facility] [address] [place] [id number] PCP - General Physician Keypunch Operators Supervisor 04/03/19 Heidi Swift MD [address] [id number] Consulting Physician Endocrinology 08/09/20 09/23/24 documented as of this encounter
--- OUTSIDE RECORDS SUMMARY | 2025-04-16 08:44 | XMS_ITS | Encounter Summary ---
Author Organization [facility] Address [address] [place] [address] Phone Care Team Providers Care Solar Sales Estimator Name Role Phone Prashanth Saldana Primary Care Provider [phone] Heidi Swift MD Unavailable Reason for Visit * Reason Comments Medication Refill Encounter Details Date Type Department Care Team (Late st Contact Info) Description 08/28/2021 Refill [facility] - Endocrinology - [place] [address] [place] [address] Heidi Swift MD [address] [id number] Medication Refill Social History Tobacco [...] Coronavirus / COVID-19? Yes 08/01/2021 9:49 AM MARKETING CONTENT COORDINATOR documented as of this encounter Miscellaneous Notes * Telephone Encounter - Eli Jones RN - 08/28/2021 9:00 AM MARKETING CONTENT COORDINATOR Requested Prescriptions Pending Prescriptions Disp Refills ??? insulin lispro (HumaLOG) 100 UNIT/ML Solution [Pharmacy Med Name: HUMALOG 100 UNIT/ML VIAL] 30 mL 0 Sig: UP TO 100 UNITS/DAY PER INSULIN PUMP SETTINGS Next appt: 09/12/2021 ETING CONTENT COORDINATOR documented in this encounter Plan of Treatment Not on file documented as of this encounter Visit Diagnoses Not on filedocumented in this encounter Additional Health Concerns Infection Onset Date Last Indicated Resolved Time COVID - 19 04/13/2022 04/13/2022 04/13/2022 10:4 2 AM CDT COVID - 19 05/17/2022 05/17/2022 05/27/2022 12:1 6 AM CDT Respiratory Rule-Out 05/17/2022 05/17/2022 022 12:16 AM MARKETING CONTENT COORDINATOR COVID - 19 06/27/2022 06/27/2022 07/07/2022 12:1 6 AM MARKETING CONTENT COORDINATOR Influenza 06/27/2022 06/27/2022 07/04/2022 12:1 6 AM MARKETING CONTENT COORDINATOR COVID - 19 04/05/2024 04/05/2024 04/05/2024 10:2 0 PM CDT COVID - 19 10/16/2024 10/16/2024 10/16/2024 7:05 AM CDT documented as of this encounter Care Teams Solar Sales Estimator Relationship Specialty Start Date End Date Prashanth Saldana PAC [address] [place] [id number] PCP - General Physician Technology And Engineering Teacher 04/03/19 Heidi Swift MD [address] [phone] Consulting Physician Endocrinology 08/09/20 09/23/24 documented as of this encounter
--- OUTSIDE RECORDS SUMMARY | 2025-04-16 08:44 | XMS_ITS | Data Portability ---
Author Organization [facility] Address [address] [place] [address] Assessment No assessment recorded. Plan of Treatment Reminders Order Date Submit Date Provider Last Modified By Organization Details Last Modified Time Details Appointments None recorded. Lab CBC 2024 025 [facility], [address] [facility] [address], [place], [address], 5 10:16:08 CMP, serum or plasma 2024 025 [facility], [address] [facility] [address], [place], [address], 5 10:16:06 lipid panel, serum 2024 025 [facility], [address] [place] [address] 2, [place], [address], 5 10:16:04 HbA1c (hemoglob in A1c), blood 2024 025 CHRISTINA In-Office Order, Internal Use Only DO Not Attach Compendium DO Not Attach Compendium, Do Not Delete/merge, [id number] 12:17:21 urinalysi s, dipstick 2022 023 [email or web address] In-Office Order, Internal Use Only DO Not Attach Compendium DO Not Attach Compendium, Do Not Delete/merge, [id number] 3 15:45:59 Referral None recorded. Procedures None [...] By Organization Details Last Modified Time 05/30/2022 [id number] learning about type 1 diabetes kaurey Not available 05/30/2022 11:57:01 type 1 diabetes: care instructions jnanney Not available 05/30/2022 11:57:01 12/18/2022 [id number] A healthy lifestyle: care instructions jnanney Not available 12/18/2022 14:46:15 learning about type 1 diabetes jnanney Not available 12/18/2022 14:46:15 type 1 diabetes: care instructions jnanney Not available 12/18/2022 14:46:15 04/16/2023 [id number] A healthy lifestyle: care instructions jnanney Not available 04/16/2023 15:45:59 learning about type 1 diabetes jnanney Not available 04/16/2023 15:45:59 type 1 diabetes: care instructions jnanney Not available 04/16/2023 15:45:59 09/03/2024 [id number] learning about type 1 diabetes jnanney Not available 09/03/2024 12:01:53 type 1 diabetes: care instructions jnanney Not available 09/03/2024 12:01:53 01/06/2025 [id number] learning about type 1 diabetes jnanney Not [...] DO Not Attach Compendium, Do Not Delete/merge, [id number] 04/16/2023 15:37:08 04/16/2004/16/2023 urina lysis , dipst ick Nitrite negati ve Not Available In-Office Order Internal Use Only DO Not Attach Compendium DO Not Attach Compendium, Do Not Delete/merge, 04/16/2023 15:37:08 04/16/2004/16/2023 urina lysis , dipst ick Urobilinogen .2 Not Available In-Of fice Order Internal Use Only DO Not Attach Compendium DO Not Attach Compendium, Do Not Delete/merge, [id number] 04/16/2023 15:37:08 04/16/2004/16/2023 urina lysis , dipst ick Protein Negati ve Not Available In-Office Order Internal Use Only DO Not Attach Compendium DO Not Attach Compendium, Do Not Delete/merge, [id number] 04/16/2023 15:37:08 04/16/2004/16/2023 urina lysis , dipst ick pH 5.5 Not Available In-Office Order Internal Use Only DO Not Attach Compendium DO Not Attach Compendium, Do Not Delete/merge, [facility] 04/16/2023 15:37:08 04/16/20 23 04/16/2023 urina lysis , dipst ick Blood Negati ve Not Available In-Office Order Internal Use Only DO Not Attach Compendium DO Not Attach Compendium, Do Not Delete/merge, [facility] 04/16/2023 15:37:08 04/16/20 23 04/16/2023 urina lysis , dipst ick Specific Bastian 1.015 Not Available In-Off ice Order Internal Use Only DO Not Attach Compendium DO Not Attach Compendium, Do Not Delete/merge, [facility] 04/16/2023 15:37:08 04/16/20 23 04/16/2023 urina lysis , dipst ick Ketone Negati ve Not Available In-Office Order Internal Use Only DO Not Attach Compendium DO Not Attach Compendium, Do Not Delete/merge, [facility] 04/16/2023 15:37:08 04/16/20 23 04/16/2023 urina lysis , dipst ick Bilirubin Negati ve Not Available In-Office Order Internal Use Only DO Not Attach Compendium DO Not Attach Compendium, Do Not Delete/merge, [facility] 04/16/2023 15:37:08 04/16/20 23 04/16/2023 urina lysis , dipst ick Glucose 1000 Not Available In-Office Order Internal Use Only DO Not Attach Compendium DO Not Attach Compendium, Do Not Delete/merge, [id number] 04/16/2023 15:37:08 04/16/20 23 04/16/2023 urina lysis , dipst ick Appearance Clear Not Available In-Offi ce Order Internal Use Only DO Not Attach Compendium DO Not Attach Compendium, Do Not Delete/merge, [facility] 04/16/2023 15:37:08 04/16/20 23 04/16/2023 urina lysis , dipst ick Color Pale Yellow Not Available In-Office Order Internal Use Only DO Not Attach Compendium DO Not Attach Compendium, Do Not Delete/merge, [id number] 04/16/2023 15:37:08 12/07/19 24 12/07/2023 Gluco se [Mass /volu me] in Blood glucose [mass/volume ] in blood 453 mg/dL low: 70mg/d Lhigh: 99mg/d L critical high GLUCO SE,BE DSIDE POCT 453 (HH) 70 - 99 mg/dL 12/06 4:54 PM [facility] Not Available Not Available 12/03/2024 [...] mmol/ L 12/06 2:51 PM CDT [facility] Not Available Not Available 12/03/2024 11:58:14 12/07/19 24 12/07/2023 Basic metab olic 1999 panel - Serum or Plasm a potassium [moles/volum e] in serum or plasma 3.2 mmol/ L low: 3.5mmo l/Lhig h: 5.1mmo l/L low POTAS SIUM 3.2 (L) 3.5 - 5.1 mmol/ L 12/06 2:51 PM CDT [facility] Not Available Not Available 12/03/2024 11:58:14 12/07/19 24 12/07/2023 Basic metab olic 1999 panel - Serum or Plasm a chloride [moles/volum e] in serum or plasma 86 mmol/ L low: 98mmol /Lhigh : 107mmo l/L low CHLOR JULIENNE 86 (L) 98 - 107 mmol/ L 12/06 2:51 PM CDT [facility] Not Available Not Available 12/03/2024 11:58:14 12/07/19 24 12/07/2023 Basic metab olic 2000 panel - Serum or Plasm a carbon dioxide, total [moles/volum e] in serum or plasma 23 mmol/ L low: 22mmol /Lhigh : 30mmol /L CO2, VENOU S 23 22 - 30 mmol/ L 12/06 2:51 PM CDT [facility] Not Available Not Available 12/03/2024 11:58:14 12/07/19 24 12/07/2023 Basic metab olic 2000 panel - Serum or Plasm a anion gap in serum or plasma by calculation 27.2 mmol/ L high: 18mmol /L high ANION GAP 27.2 (H) <18.0 mmol/ L 12/06 2:51 PM CDT [facility] Not Available Not Available 12/03/2024 11:58:14 12/07/19 24 12/07/2023 Basic metab olic 1999 panel - Serum or Plasm a glucose [mass/volume ] in serum or plasma 168 mg/dL low: 70mg/d Lhigh: 99mg/d L high GLUCO SE 168 (H) 70 - 99 mg/dL 12/06 2:51 PM CDT [facility] Not Available Not Available 12/03/2024 11:58:14 12/07/19 24 12/07/2023 Basic metab olic 2000 panel - Serum or Plasm a urea nitrogen [mass/volume ] in serum or plasma 47 mg/dL low: 9mg/dL high: 21mg/d L high BUN 47 (H) 9 - 21 mg/dL 12/06 2:51 PM CD[facility] Not Available Not Available 12/03/2024 11:58:14 12/07/19 24 12/07/2023 Basic metab olic 2000 panel - Serum or Plasm a creatinine [mass/volume ] in serum or plasma 2.42 mg/dL low: 0.7mg/ dLhigh : 1.3mg/ dL high CREAT ININE , BLOOD 2.42 (H) 0.70 - 1.30 mg/dL 12/06 2:51 PM CDT [facility] [facility] LAB Not Available Not Available 12/03/2024 11:58:14 12/07/19 24 12/07/2023 [facility] 1999 panel - Serum or Plasm a urea nitrogen/cre atinine [mass ratio] in serum or plasma 19 text: 12 - 20 ratio BUN/C REATI NINE RATIO 19 12 - 20 ratio 12/06 2:51 PM CDT [facility] Not Available Not Available 12/03/2024 11:58:14 12/07/19 24 12/07/2023 [facility] 1999 panel - Serum or Plasm a calcium [mass/volume ] in serum or plasma 8.6 mg/dL low: 8.7mg/ dLhigh : 10.5mg /dL low CALCI UM 8.6 (L) 8.7 - 10.5 mg/dL 12/06 2:51 PM CDT [facility] [facility] Not Available Not Available 12/03/2024 11:58:14 12/07/19 24 12/07/2023 [facility] 1999 panel - Serum or Plasm a glomerular filtration rate [volume rate/area] in serum, plasma or blood by creatinine-b ased formula (MDRD)/1.73 sq M among non black population 37 low: 60 low GFR, ESTIM ATED 37 (L) >=60 12/06 2:51 PM [facility] Not Available Not Available 12/03/2024 11:58:14 12/07/19 24 12/07/2023 [facility] 1999 panel - Serum or Plasm a glomerular filtration rate [volume rate/area] in serum, plasma or blood by creatinine-b ased formula (MDRD)/1.73 sq M among black population 40 low: 60 low GFR, EST. AFRIC AN 40 (L) >=60 12/06 2:51 PM CDT [facility] Not Available Not Available 12/03/2024 11:58:14 12/07/19 24 12/07/2023 Basic metab olic 2000 panel - Serum or Plasm a glomerular filtration rate [volume rate/area] in serum, plasma or blood by creatinine-b ased formula (MDRD)/1.73 sq M among non black population 33 low: 60 low GFR, EST. NONAF RICAN 33 (L) >=60 12/06 2:51 PM CDT [facility] Not [...] room air 12/06 12:22 PM CDT [facility] Not Available Not Available 12/03/2024 11:58:14 12/07/19 24 12/07/2023 Gas panel - Venou s blood pH of venous blood 7.55 low: 7.34hi gh: 7.43 high PH VENOU S 7.55 (H) 7.34 - 7.43 12/06 12:22 PM CDT [facility] Not Available Not Available 12/03/2024 11:58:14 12/07/19 24 12/07/2023 Gas panel - Venou s blood carbon dioxide [partial pressure] in venous blood 29 text: 41 - 51 mmHg low PCO2 (VENO US) 29 (L) 41 - 51 mmHg 12/06 12:22 PM CDT [facility] Not Available Not Available 12/03/2024 11:58:14 12/07/19 24 12/07/2023 Gas panel - Venou s blood oxygen [partial pressure] in venous blood 55 text: 30 - 50 mmHg high PO2 VENOU S 55 (H) 30 - 50 mmHg 12/06 12:22 PM CD[facility] Not [facility] Not Available 12/03/2024 11:58:14 12/07/19 24 12/07/2023 Gas panel - Venou s blood oxygen saturation in venous blood 85 % low: 60%hig h: 85% O2 SAT JOHNNIE, MEASU RED 85 60 - 85 % 12/06 12:22 PM CD[facility] Not Available Not Available 12/03/2024 11:58:14 12/07/19 24 12/07/2023 Gas panel - Venou s blood bicarbonate [moles/volum e] in blood 25.8 mmol/ L low: 22mmol /Lhigh : 26mmol /L BICAR BONAT E 25.8 22.0 - 26.0 mmol/ L 12/06 12:22 PM CDT [facility] Not Available Not Available 12/03/2024 11:58:14 12/07/19 24 12/07/2023 Gas panel - Venou s blood base venous 4.7 mmol/ L low: -2mmol /Lhigh : 3mmol/ L high BASE VENOU S 4.7 (H) -2.0 - 3.0 mmol/ L 12/06 12:22 PM CDT [facility] Not Available Not Available 12/03/2024 11:58:14 12/07/19 24 12/07/2023 Gas panel - Venou s blood carboxyhemog lobin/hemogl obin.total in blood 1.2 % low: 0%high : 5% CARBO XYHEM OGLOB IN 1.2 0.0 - 5.0 % 12/06 12:22 PM CDT [facility] Not [facility] Not Available 12/03/2024 [...] 10(3) /mcL 12/06 11:38 AM CDT [facility] Not Available Not Available 12/03/2024 11:58:14 12/07/19 24 12/07/2023 CBC W Auto Diffe renti al panel - Blood erythrocytes [#/volume] in blood by automated count 5.47 text: 4.40 - 5.80 10(6)/ mcL RBC 5.47 4.40 - 5.80 10(6) /mcL 12/06 11:38 AM CDT [facility] Not Available Not Available 12/03/2024 11:58:14 12/07/19 24 12/07/2023 CBC W Auto Diffe renti al panel - Blood hemoglobin [mass/volume ] in blood 16.2 g/dL low: 13g/dL high: 16.5g/ dL HEMOG LOBIN (HGB) 16.2 13.0 - 16.5 g/dL 12/06 11:38 AM CDT [facility] Not Available Not Available 12/03/2024 11:58:14 12/07/19 24 12/07/2023 CBC W Auto Diffe renti al panel - Blood hematocrit [volume fraction] of blood by automated count 45.5 % low: 38%hig h: 50% HEMAT OCRIT (HCT) 45.5 38.0 - 50.0 % 12/06 11:38 AM CDT [facility] Not Available Not Available 12/03/2024 11:58:14 12/07/19 24 12/07/2023 CBC W Auto Diffe renti al panel - Blood MCV [entitic mean volume] in red blood cells by automated count 83.2 fL low: 82fLhi gh: 96fL MCV 83.2 82.0 - 96.0 fL 12/06 11:38 AM CDT [facility] Not Available Not Available 12/03/2024 11:58:14 12/07/19 24 12/07/2023 CBC W Auto Diffe renti al panel - Blood MCH [entitic mass] by automated count 29.6 pg low: 26pghi gh: 32pg MCH 29.6 26.0 - 32.0 pg 12/06 11:38 AM CDT [facility] Not Available Not Available 12/03/2024 11:58:14 12/07/19 24 12/07/2023 CBC W Auto Diffe renti al panel - Blood MCHC [entitic mass/volume] in red blood cells by automated count 35.6 g/dL low: 31g/dL high: 36g/dL MCHC 35.6 31.0 - 36.0 g/dL 12/06 11:38 AM CDT [facility] Not Available Not Available 12/03/2024 11:58:14 12/07/19 24 12/07/2023 CBC W Auto Diffe renti al panel - Blood platelets [#/volume] in blood 464 text: 140 - 440 10(3)/ mcL high PLATE LET COUNT 464 (H) 140 - 440 10(3) /mcL 12/06 11:38 AM CDT [facility] Not Available Not Available 12/03/2024 11:58:14 12/07/19 24 12/07/2023 CBC W Auto Diffe renti al panel - Blood erythrocyte [distwidth] in red blood cells by automated count 13.2 % low: 11.8%h igh: 15.5% RDW 13.2 11.8 - 15.5 % 12/06 11:38 AM CD[facility] Not Available Not Available 12/03/2024 11:58:14 12/07/19 24 12/07/2023 CBC W Auto Diffe renti al panel - Blood platelet [entitic mean volume] in blood by automated count 10 fL low: 8fLhig h: 12.6fL MPV 10.0 8.0 - 12.6 fL 12/06 11:38 AM CDT [facility] Not Available Not Available 12/03/2024 11:58:14 12/07/19 24 12/07/2023 CBC W Auto Diffe renti al panel - Blood neutrophils/ leukocytes in blood by automated count 83.4 % low: 40%hig h: 68% high NEUTR OPHIL S 83.4 (H) 40.0 - 68.0 % 12/06 11:38 AM CDT [facility] Not Available Not Available 12/03/2024 11:58:14 12/07/19 24 12/07/2023 CBC W Auto Diffe renti al panel - Blood lymphocytes/ leukocytes in blood by automated count 7.3 % low: 19%hig h: 49% low LYMPH OCYTE S 7.3 (L) 19.0 - 49.0 % 12/06 11:38 AM CDT [facility] Not Available Not Available 12/03/2024 11:58:14 12/07/19 24 12/07/2023 CBC W Auto Diffe renti al panel - Blood monocytes/le ukocytes in blood by automated count 9.2 % low: 3%high : 13% MONOC YTES 9.2 3.0 - 13.0 % 12/06 11:38 AM CDT [facility] Not Available Not Available 12/03/2024 11:58:14 12/07/19 24 12/07/2023 CBC W Auto Diffe renti al panel - Blood eosinophils/ leukocytes in blood by automated count 0 % low: 0%high : 8% EOSIN OPHIL S 0.0 0.0 - 8.0 % 12/06 11:38 AM CDT [facility] Not Available Not Available 12/03/2024 11:58:14 12/07/19 24 12/07/2023 CBC W Auto Diffe renti al panel - Blood basophils/le ukocytes in blood by automated count 0.1 % low: 0%high : 1% BASOP HILS 0.1 0.0 - 1.0 % 12/06 11:38 AM CDT [facility] Not Available Not Available 12/03/2024 11:58:14 12/07/19 24 12/07/2023 CBC W Auto Diffe renti al panel - Blood neutrophils [#/volume] in blood by automated count 17.42 text: 1.40 - 5.30 10(3)/ mcL high ABSOL QUILEUTE NEUTR OPHIL S 17.42 (H) 1.40 - 5.30 10(3) /mcL 12/06 11:38 AM CDT [facility] Not Available Not Available 12/03/2024 11:58:14 12/07/19 24 12/07/2023 CBC W Auto Diffe renti al panel - Blood lymphocytes [#/volume] in blood by automated count 1.53 text: 0.90 - 3.30 10(3)/ mcL ABSOL QUILEUTE LYMPH OCYTE S 1.53 0.90 - 3.30 10(3) /mcL 12/06 11:38 AM CDT [facility] Not Available Not Available 12/03/2024 11:58:14 12/07/19 24 12/07/2023 CBC W Auto Diffe renti al panel - Blood monocytes [#/volume] in blood by automated count 1.92 text: 0.10 - 0.90 10(3)/ mcL high ABSOL QUILEUTE MONOC YTES 1.92 (H) 0.10 - 0.90 10(3) /mcL 12/06 11:38 AM CDT [facility] Not Available Not Available 12/03/2024 11:58:14 12/07/19 24 12/07/2023 CBC W Auto Diffe renti al panel - Blood eosinophils [#/volume] in blood by automated count 0 text: 0.00 - 0.50 10(3)/ mcL ABSOL QUILEUTE EOSIN OPHIL 0.00 0.00 - 0.50 10(3) /mcL 12/06 11:38 AM CDT [facility] Not Available Not Available 12/03/2024 11:58:14 12/07/19 24 12/07/2023 CBC W Auto Diffe renti al panel - Blood basophils [#/volume] in blood by automated count 0.03 text: 0.00 - 0.10 10(3)/ mcL ABSOL QUILEUTE BASOP HILS 0.03 0.00 - 0.10 10(3) /mcL 12/06 11:38 AM CD[facility] Not Available Not Available 12/03/2024 11:58:14 12/07/19 24 12/07/2023 CBC W Auto Diffe renti al panel - Blood nucleated erythrocytes /leukocytes [ratio] in blood 0 NRBC PER 100 WBC 0 12/06 11:38 AM CDT [facility] Not Available Not Available 12/03/2024 11:58:14 [...] (A) Negat yen 12/06 11:51 AM CDT [facility] Not Available Not Available 12/03/2024 11:58:14 [...] - 78 U/L 12/06 11:59 AM CDT [facility] Not Available Not Available [...] 145 mmol/ L 12/06 12:06 PM CDT [facility] Not Available Not Available 09/03/2024 11:01:15 12/07/19 24 12/07/2023 Compr ehens yen metab olic 1999 panel - Serum or Plasm a potassium [moles/volum e] in serum or plasma 3.4 mmol/ L low: 3.5mmo l/Lhig h: 5.1mmo l/L low POTAS SIUM 3.4 (L) 3.5 - 5.1 mmol/ L 12/06 12:06 PM CDT [facility] Not Available Not Available 09/03/2024 11:01:15 12/07/19 24 12/07/2023 Compr ehens yen metab olic 1999 panel - Serum or Plasm a chloride [moles/volum e] in serum or plasma 77 mmol/ L low: 98mmol /Lhigh : 107mmo l/L low CHLOR JULIENNE 77 (L) 98 - 107 mmol/ L 12/06 12:06 PM CD[facility] Not Available Not Available 09/03/2024 11:01:15 12/07/19 24 12/07/2023 Compr ehens yen metab olic 1999 panel - Serum or Plasm a carbon dioxide, total [moles/volum e] in serum or plasma 23 mmol/ L low: 22mmol /Lhigh : 30mmol /L CO2, VENOU S 23 22 - 30 mmol/ L 12/06 12:06 PM CDT [facility] Not Available Not Available 09/03/2024 11:01:15 12/07/19 24 12/07/2023 Compr ehens yen metab olic 1999 panel - Serum or Plasm a anion gap in serum or plasma 33.4 mmol/ L high: 18mmol /L high ANION GAP 33.4 (H) <18.0 mmol/ L 12/06 12:06 PM CDT [facility] [employer] [facility] Not Available Not Available 09/03/2024 11:01:15 12/07/19 24 12/07/2023 Compr ehens yen metab ic 1999 panel - Serum or Plasm a glucose [mass/volume ] in serum or plasma 377 mg/dL low: 70mg/d Lhigh: 99mg/d L high GLUCO SE 377 (H) 70 - 99 mg/dL 12/06 12:06 PM CDT [facility] Not Available Not Available 09/03/2024 11:01:15 12/07/19 24 12/07/2023 Compr ehens yen metab olic 1999 panel - Serum or Plasm a urea nitrogen [mass/volume ] in serum or plasma 48 mg/dL low: 9mg/dL high: 21mg/d L high BUN 48 (H) 9 - 21 mg/dL 12/06 12:06 PM CDT [facility] Not Available Not Available 09/03/2024 11:01:15 12/07/19 24 12/07/2023 Compr ehens yen metab olic 1999 panel - Serum or Plasm a creatinine [mass/volume ] in serum or plasma 2.8 mg/dL low: 0.7mg/ dLhigh : 1.3mg/ dL high CREAT ININE , BLOOD 2.80 (H) 0.70 - 1.30 mg/dL 12/06 12:06 PM CDT [facility] [employer] [facility] Not Available Not Available 09/03/2024 11:01:15 12/07/19 24 12/07/2023 Compr ehens yen metab olic 1999 panel - Serum or Plasm a urea nitrogen/cre atinine [mass ratio] in serum or plasma 17 text: 12 - 20 ratio BUN/C REATI NINE RATIO 17 12 - 20 ratio 12/06 12:06 PM CDT [facility] [employer] [facility] Not Available Not Available 09/03/2024 11:01:15 12/07/19 24 12/07/2023 Compr ehens yen metab olic 1999 panel - Serum or Plasm a protein [mass/volume ] in serum or plasma 8.4 g/dL low: 6.3g/d Lhigh: 8.2g/d L high TOTAL PROTE IN 8.4 (H) 6.3 - 8.2 g/dL 12/06 12:06 PM CDT [facility] [employer] Not Available Not Available 09/03/2024 11:01:15 12/07/19 24 12/07/2023 Compr ehens yen metab olic 1999 panel - Serum or Plasm a albumin [mass/volume ] in serum or plasma 4.7 g/dL low: 3.5g/d Lhigh: 5g/dL ALBUM IN 4.7 3.5 - 5.0 g/dL 12/06 12:06 PM CDT [facility] Not Available Not Available 09/03/2024 11:01:15 12/07/19 24 12/07/2023 Compr ehens yen metab olic 1999 panel - Serum or Plasm a albumin/glob ulin [mass ratio] in serum or plasma 1.3 low: 1high: 2.2 A/G RATIO 1.3 1.0 - 2.2 12/06 12:06 PM CDT [facility] [employer] [facility] Not Available Not Available 09/03/2024 11:01:15 12/07/19 24 12/07/2023 Compr ehens yen metab olic 1999 panel - Serum or Plasm a calcium [mass/volume ] in serum or plasma 9.3 mg/dL low: 8.7mg/ dLhigh : 10.5mg /dL CALCI UM 9.3 8.7 - 10.5 mg/dL 12/06 12:06 PM CDT [facility] [employer] [facility] LAB Not Available Not Available 09/03/2024 11:01:15 12/07/19 24 12/07/2023 Compr ens yen metab olic 1999 panel - Serum or Plasm a bilirubin.to su [mass/volume ] in serum or plasma 1.1 mg/dL low: 0.2mg/ dLhigh : 1.2mg/ dL T BILI 1.1 0.2 - 1.2 mg/dL 12/06 12:06 PM CDT [facility] [employer] [facility] Not Available Not Available 09/03/2024 11:01:15 12/07/19 24 12/07/2023 Compr ehens yen metab olic 1999 panel - Serum or Plasm a aspartate aminotransfe rase [enzymatic activity/vol ume] in serum or plasma 32 U/L low: 5U/Lhi gh: 34U/L SGOT (AST) 32 5 - 34 U/L 12/06 12:06 PM CDT [facility] [employer] [facility] Not Available Not Available 09/03/2024 11:01:15 12/07/19 24 12/07/2023 Compr ehens yen metab olic 1999 panel - Serum or Plasm a alanine aminotransfe rase [enzymatic activity/vol ume] in serum or plasma 41 U/L low: 0U/Lhi gh: 55U/L SGPT (ALT) 41 0 - 55 U/L 12/06 12:06 PM CDT [facility] [employer] [facility] Not Available Not Available 09/03/2024 11:01:15 12/07/19 24 12/07/2023 Compr ehens yen metab olic 1999 panel - Serum or Plasm a alkaline phosphatase [enzymatic activity/vol ume] in serum or plasma 115 U/L low: 40U/Lh igh: 150U/L ALKAL INE PHOSP HATAS E 115 40 - 150 U/L 12/06 12:06 PM CD[facility] Not Available Not Available 09/03/2024 11:01:15 12/07/19 24 12/07/2023 Compr ehens yen metab olic 2000 panel - Serum or Plasm a glomerular filtration rate/1.73 sq M.predicted among non-blacks [volume rate/area] in serum, plasma or blood by creatinine-b ased formula (MDRD) 31 low: 60 low GFR, ESTIM ATED 31 (L) >=60 12/06 12:06 PM CDT [facility] Not Available Not Available 09/03/2024 11:01:15 12/07/19 24 12/07/2023 Compr e[facility] metab olic 2000 panel - Serum or Plasm a glomerular filtration rate/1.73 sq M.predicted among blacks [volume rate/area] in serum, plasma or blood by creatinine-b ased formula (MDRD) 34 low: 60 low GFR, EST. AFRIC AN 34 (L) >=60 12/06 12:06 PM CDT [facility] Not Available Not Available 09/03/2024 11:01:15 12/07/19 24 12/07/2023 Compr e[facility] metab olic 2000 panel - Serum or Plasm a glomerular filtration rate/1.73 sq M.predicted among non-blacks [volume rate/area] in serum, plasma or blood by creatinine-b ased formula (MDRD) 28 low: 60 low GFR, EST. NONAF RICAN 28 (L) >=60 12/06 12:06 PM CDT [facility] Not [...] mmol/ L 04/05 9:56 PM CDT [facility] Not Available Not Available 12/03/2024 [...] yen, Error 04/05 10:20 PM CDT [facility] Not Available Not Available 12/03/2024 11:56:34 04/05/20 24 04/05/2024 Influ carlos virus A and B and SARS- CoV-2 (COVI D-19) and Respi rator y syncy tial virus RNA panel - Respi rator y syste m speci men by GARBIELLE with probe detec tion influenza virus B RNA [presence] in nasopharynx by GABRIELLE with probe detection Negati ve text: negati ve FLU B Negat yen Negat yen 04/05 10:20 PM CDT [facility] Not Available Not Available 12/03/2024 [...] Negat yen 04/05 10:20 PM CDT [facility] Not Available Not Available [...] Detec leodan) 04/05 10:20 PM CDT [facility] Not Available Not Available 12/03/2024 [...] RESUL T 04/10 6:01 PM CDT [facility] Not Available [...] Negat yen 04/05 4:57 PM CDT [facility] Not [...] 99 mg/dL 04/06 6:23 AM CDT [facility] Not [...] 10(3) /mcL 04/06 5:28 AM CDT [facility] Not Available Not Available 12/03/2024 11:56:35 04/06/20 24 04/06/2024 CBC W Auto Diffe renti al panel - Blood erythrocytes [#/volume] in blood by automated count 4.18 text: 4.40 - 5.80 10(6)/ mcL low RBC 4.18 (L) 4.40 - 5.80 10(6) /mcL 04/06 5:28 AM CDT [facility] Not Available Not Available 12/03/2024 11:56:35 04/06/20 24 04/06/2024 CBC W Auto Diffe renti al panel - Blood hemoglobin [mass/volume ] in blood 12.1 g/dL low: 13g/dL high: 16.5g/ dL low HEMOG LOBIN (HGB) 12.1 (L) 13.0 - 16.5 g/dL 04/06 5:28 AM CDT [facility] Not Available Not Available 12/03/2024 11:56:35 04/06/20 24 04/06/2024 CBC W Auto Diffe renti al panel - Blood hematocrit [volume fraction] of blood by automated count 35.8 % low: 38%hig h: 50% low HEMAT OCRIT (HCT) 35.8 (L) 38.0 - 50.0 % 04/06 5:28 AM CDT [facility] Not Available Not Available 12/03/2024 11:56:35 04/06/20 24 04/06/2024 CBC W Auto Diffe renti al panel - Blood MCV [entitic mean volume] in red blood cells by automated count 85.6 fL low: 82fLhi gh: 96fL MCV 85.6 82.0 - 96.0 fL 04/06 5:28 AM CDT [facility] Not Available Not Available 12/03/2024 11:56:35 04/06/20 24 04/06/2024 CBC W Auto Diffe renti al panel - Blood MCH [entitic mass] by automated count 28.9 pg low: 26pghi gh: 32pg MCH 28.9 26.0 - 32.0 pg 04/06 5:28 AM CDT [facility] Not Available Not Available 12/03/2024 11:56:35 04/06/20 24 04/06/2024 CBC W Auto Diffe renti al panel - Blood MCHC [entitic mass/volume] in red blood cells by automated count 33.8 g/dL low: 31g/dL high: 36g/dL MCHC 33.8 31.0 - 36.0 g/dL 04/06 5:28 AM CD[facility] Not Available Not Available 12/03/2024 11:56:35 04/06/20 24 04/06/2024 CBC W Auto Diffe ramanti al panel - Blood platelets [#/volume] in blood 287 text: 140 - 440 10(3)/ mcL PLATE LET COUNT 287 140 - 440 10(3) /mcL 04/06 5:28 AM CDT [facility] Not Available Not Available 12/03/2024 11:56:35 04/06/20 24 04/06/2024 CBC W Auto Diffe renti al panel - Blood erythrocyte [distwidth] in red blood cells by automated count 13.7 % low: 11.8%h igh: 15.5% RDW 13.7 11.8 - 15.5 % 04/06 5:28 AM CDT [facility] Not Available Not Available 12/03/2024 11:56:35 04/06/20 24 04/06/2024 CBC W Auto Diffe renti al panel - Blood platelet [entitic mean volume] in blood by automated count 10.7 fL low: 8fLhig h: 12.6fL MPV 10.7 8.0 - 12.6 fL 04/06 5:28 AM CD[facility] Not Available Not Available 12/03/2024 11:56:35 04/06/20 24 04/06/2024 CBC W Auto Diffe renti al panel - Blood nucleated erythrocytes /leukocytes [ratio] in blood 0 NRBC PER 100 WBC 0 04/06 5:28 AM CDT [facility] Not Available [...] mmol/ L 04/06 5:36 AM CDT [facility] Not Available Not Available 12/03/2024 11:56:34 04/06/20 24 04/06/2024 Basic metab olic 1999 panel - Serum or Plasm a potassium [moles/volum e] in serum or plasma 3.5 mmol/ L low: 3.5mmo l/Lhig h: 5.1mmo l/L POTAS SIUM 3.5 3.5 - 5.1 mmol/ L 04/06 5:36 AM CDT [facility] Not Available Not Available 12/03/2024 11:56:34 04/06/20 24 04/06/2024 Basic metab olic 1999 panel - Serum or Plasm a chloride [moles/volum e] in serum or plasma 95 mmol/ L low: 98mmol /Lhigh : 107mmo l/L low CHLOR JULIENNE 95 (L) 98 - 107 mmol/ L 04/06 5:36 AM CDT [facility] Not Available Not Available 12/03/2024 11:56:34 04/06/20 24 04/06/2024 Basic metab olic 1999 panel - Serum or Plasm a carbon dioxide, total [moles/volum e] in serum or plasma 25 mmol/ L low: 22mmol /Lhigh : 30mmol /L CO2, VENOU S 25 22 - 30 mmol/ L 04/06 5:36 AM CDT [facility] Not Available Not Available 12/03/2024 11:56:34 04/06/20 24 04/06/2024 Basic metab olic 1999 panel - Serum or Plasm a anion gap in serum or plasma by calculation 19.5 mmol/ L high: 18mmol /L high ANION GAP 19.5 (H) <18.0 mmol/ L 04/06 5:36 AM CDT [facility] Not Available Not Available 12/03/2024 11:56:34 04/06/20 24 04/06/2024 Basic metab olic 1999 panel - Serum or Plasm a glucose [mass/volume ] in serum or plasma 257 mg/dL low: 70mg/d Lhigh: 99mg/d L high GLUCO SE 257 (H) 70 - 99 mg/dL 04/06 5:36 AM CDT [facility] Not Available Not Available 12/03/2024 11:56:34 04/06/20 24 04/06/2024 Basic metab olic 1999 panel - Serum or Plasm a urea nitrogen [mass/volume ] in serum or plasma 31 mg/dL low: 9mg/dL high: 21mg/d L high BUN 31 (H) 9 - 21 mg/dL 04/06 5:36 AM CDT [facility] Not Available Not Available 12/03/2024 11:56:34 04/06/20 24 04/06/2024 Basic metab olic 1999 panel - Serum or Plasm a creatinine [mass/volume ] in serum or plasma 1.8 mg/dL low: 0.7mg/ dLhigh : 1.3mg/ dL high CREAT ININE , BLOOD 1.80 (H) 0.70 - 1.30 mg/dL 04/06 5:36 AM CDT [facility] Not Available Not Available 12/03/2024 11:56:34 04/06/20 24 04/06/2024 Basic metab olic 1999 panel - Serum or Plasm a urea nitrogen/cre atinine [mass ratio] in serum or plasma 17 text: 12 - 20 ratio BUN/C REATI NINE RATIO 17 12 - 20 ratio 04/06 5:36 AM CDT [facility] [employer] [facility] Not Available Not Available 12/03/2024 11:56:34 04/06/20 24 04/06/2024 Basic metab olic 1999 panel - Serum or Plasm a calcium [mass/volume ] in serum or plasma 7.6 mg/dL low: 8.7mg/ dLhigh : 10.5mg /dL low CALCI UM 7.6 (L) 8.7 - 10.5 mg/dL 04/06 5:36 AM CDT [facility] [employer] [facility] LAB Not Available Not Available 12/03/2024 11:56:34 04/06/20 24 04/06/2024 Basic metab olic 1999 panel - Serum or Plasm a glomerular filtration rate [volume rate/area] in serum, plasma or blood by creatinine-b ased formula (MDRD)/1.73 sq M among non black population 53 low: 60 low GFR, ESTIM ATED 53 (L) >=60 04/06 5:36 AM CDT [facility] [employer] [facility] Not Available Not Available 12/03/2024 11:56:34 04/06/20 24 04/06/2024 Basic metab olic 1999 panel - Serum or Plasm a glomerular filtration rate [volume rate/area] in serum, plasma or blood by creatinine-b ased formula (MDRD)/1.73 sq M among black population 56 low: 60 low GFR, EST. AFRIC AN 56 (L) >=60 04/06 5:36 AM CDT [facility] [employer] [facility] Not Available Not Available 12/03/2024 11:56:34 04/06/20 24 04/06/2024 Basic metab olic 2000 panel - Serum or Plasm a glomerular filtration rate [volume rate/area] in serum, plasma or blood by creatinine-b ased formula (MDRD)/1.73 sq M among non black population 47 low: 60 low GFR, EST. NONAF RICAN 47 (L) >=60 04/06 5:36 AM CDT [facility] [employer] [facility] Not Available Not Available 12/03/2024 [...] 4.5 mg/dL 04/06 5:36 AM CDT [facility] Not Available Not Available 12/03/2024 [...] 2.6 mg/dL 04/06 5:36 AM CDT [facility] Not Available Not Available 12/03/2024 11:56:34 04/06/20 24 04/06/2024 Magne sium [Mass /volu me] in Serum or Plasm a interpretati on and review of laboratory results Normal Not Available Not Available 11/19 11:56:34 04/06/20 24 04/06/2024 Gas panel - Venou s blood oxygen gas flow oxygen delivery system room air O2 STATU S room air 04/06 2:30 AM CDT [facility] Not Available Not Available 12/03/2024 11:56:34 04/06/20 24 04/06/2024 Gas panel - Venou s blood pH of venous blood 7.56 low: 7.34hi gh: 7.43 high PH VENOU S 7.56 (H) 7.34 - 7.43 04/06 2:30 AM CDT [facility] Not Available Not Available 12/03/2024 11:56:34 04/06/20 24 04/06/2024 Gas panel - Venou s blood carbon dioxide [partial pressure] in venous blood 36 text: 41 - 51 mmHg low PCO2 (VENO US) 36 (L) 41 - 51 mmHg 04/06 2:30 AM CDT [facility] Not Available Not Available 12/03/2024 11:56:34 04/06/20 24 04/06/2024 Gas panel - Venou s blood oxygen [partial pressure] in venous blood 114 text: 30 - 50 mmHg high PO2 VENOU S 114 (H) 30 - 50 mmHg 04/06 2:30 AM CDT [facility] Not Available Not Available 12/03/2024 11:56:34 04/06/20 24 04/06/2024 Gas panel - Venou s blood oxygen saturation in venous blood 99 % low: 60%hig h: 85% high O2 SAT JOHNNIE, MEASU RED 99 (H) 60 - 85 % 04/06 2:30 AM CDT [facility] Not Available Not Available 12/03/2024 11:56:34 04/06/20 24 04/06/2024 Gas panel - Venou s blood bicarbonate [moles/volum e] in blood 32 mmol/ L low: 22mmol /Lhigh : 26mmol /L high BICAR BONAT E 32.0 (H) 22.0 - 26.0 mmol/ L 04/06 2:30 AM CDT [facility] [employer] [employer] [facility] Not Available Not Available 12/03/2024 11:56:34 04/06/20 24 04/06/2024 Gas panel - Venou s blood base venous 9.9 mmol/ L low: -2mmol /Lhigh : 3mmol/ L high BASE VENOU S 9.9 (H) -2.0 - 3.0 mmol/ L 04/06 2:30 AM CDT [facility] Not Available Not Available 12/03/2024 11:56:34 04/06/20 24 04/06/2024 Gas panel - Venou s blood carboxyhemog lobin/hemogl obin.total in blood 2.2 % low: 0%high : 5% CARBO XYHEM OGLOB IN 2.2 0.0 - 5.0 % 04/06 2:30 AM CDT [facility] Not Available Not Available 12/03/2024 11:56:34 04/06/20 24 04/06/2024 Gas panel - Venou s blood methemoglobi n/hemoglobin .total in blood 0.4 % low: 0%high : 1.5% METHE MOGLO BIN 0.4 0.0 - 1.5 % 04/06 2:30 AM CDT [facility] Not Available Not Available 12/03/2024 [...] 7.43 04/05 11:28 PM CDT [facility] [place] [facility] Not Available Not Available 12/03/2024 11:56:34 04/06/20 24 04/06/2024 pH of Venou s blood interpretati on and review of laboratory results Abnorm al Not Available Not Available 11:56:34 09/03/19 25 09/04/2024 LIPID PANEL cholesterol, total 256 mg/dL 100-19 9 above high normal Not Available [facility] & [address], [address], 09/04/2024 10:16:04 09/03/19 25 09/04/2024 LIPID PANEL triglyceride s 125 mg/dL 0-149 Not Available [address], [address], 09/04/2024 10:16:04 09/03/19 25 09/04/2024 LIPID PANEL HDL cholesterol 49 mg/dL >39 Not Available [address], [address], 09/04/2024 10:16:04 09/03/19 25 09/04/2024 LIPID PANEL VLDL cholesterol kiersten 23 mg/dL 5-40 Not Available [address], [address], 09/04/2024 10:16:04 09/03/19 25 09/04/2024 LIPID PANEL LDL chol calc (nih) 184 mg/dL 0-99 above high normal Not Available [address], [address], 09/04/2024 10:16:04 09/03/19 25 09/04/2024 COMP. METAB OLIC PANEL (14) glucose 108 mg/dL 70-99 above high normal Not Available [address], [address], 09/04/2024 10:16:06 09/03/19 25 09/04/2024 COMP. METAB OLIC PANEL (14) BUN 18 mg/dL 6-20 Not Available [address], [address], 09/04/2024 10:16:06 09/03/19 25 09/04/2024 COMP. METAB OLIC PANEL (14) creatinine 0.99 mg/dL 0.76-1 .27 Not Available [address], [address], 09/04/2024 10:16:06 09/03/19 25 09/04/2024 COMP. METAB OLIC PANEL (14) eGFR 108 mL/mi n/1.7 3 >59 Not Available [address], [address], 09/04/2024 10:16:06 09/03/19 25 09/04/2024 COMP. METAB OLIC PANEL (14) BUN/creatini ne ratio 18 9-20 Not Available [address], [address], 09/04/2024 10:16:06 09/03/19 25 09/04/2024 COMP. METAB OLIC PANEL (14) sodium 142 mmol/ L 134-14 4 Not Available [address], [address], 09/04/2024 10:16:06 09/03/19 25 09/04/2024 COMP. METAB OLIC PANEL (14) potassium 5.4 mmol/ L 3.5-5. 2 above high normal Not Available [address], [address], 09/04/2024 10:16:06 09/03/19 25 09/04/2024 COMP. METAB OLIC PANEL (14) chloride 104 mmol/ L 96-106 Not Available [address], [address], 09/04/2024 10:16:06 09/03/19 25 09/04/2024 COMP. METAB OLIC PANEL (14) carbon dioxide, total 23 mmol/ L 20-29 Not Available [address], [address], 09/04/2024 10:16:06 09/03/19 25 09/04/2024 COMP. METAB OLIC PANEL (14) calcium 9.8 mg/dL 8.7-10 .2 Not Available [address], [address], 09/04/2024 10:16:06 09/03/19 25 09/04/2024 COMP. METAB OLIC PANEL (14) protein, total 7.2 g/dL 6.0-8. 5 Not Available [address], [address], 09/04/2024 10:16:06 09/03/19 25 09/04/2024 COMP. METAB OLIC PANEL (14) albumin 4.6 g/dL 4.3-5. 2 Not Available [address], [address], 09/04/2024 10:16:06 09/03/19 25 09/04/2024 COMP. METAB OLIC PANEL (14) globulin, total 2.6 g/dL 1.5-4. 5 Not Available [address], [address], 09/04/2024 10:16:06 09/03/19 25 09/04/2024 COMP. METAB OLIC PANEL (14) bilirubin, total 0.2 mg/dL 0.0-1. 2 Not Available [address], [address], 09/04/2024 10:16:06 09/03/19 25 09/04/2024 COMP. METAB OLIC PANEL (14) alkaline phosphatase 92 IU/L 44-121 Not Available [address], [address], 09/04/2024 10:16:06 09/03/19 25 09/04/2024 COMP. METAB OLIC PANEL (14) AST (SGOT) 16 IU/L 0-40 Not Available [facility] & [address], [address], 09/04/2024 10:16:06 09/03/1909/04/2024 COMP. METAB OLIC PANEL (14) ALT (SGPT) 11 IU/L 0-44 Not Available [address], [address], 09/04/2024 10:16:06 09/03/1909/04/2024 CARDI OVASC ULAR REPOR T interpretati on Note Suppl ement al repor t is avail able. Not Available [address], [address], 09/04/2024 10:16:07 09/03/1909/04/2024 CARDI OVASC ULAR REPOR T pdf . Not Available [facility] & [address], [address], 09/04/2024 10:16:07 09/03/1909/04/2024 CBC, PLATE LET, NO DIFFE RENTI AL WBC 7.8 x10e3 /uL 3.4-10 .8 Not Available [address], [address], 09/04/2024 10:16:08 09/03/1909/04/2024 CBC, PLATE LET, NO DIFFE RENTI AL RBC 4.95 x10e6 /uL 4.14-5 .80 Not Available [address], [address], 09/04/2024 10:16:08 09/03/1909/04/2024 CBC, PLATE LET, NO DIFFE RENTI AL hemoglobin 13.8 g/dL 13.0-1 7.7 Not Available [facility] & [address], [address], 09/04/2024 10:16:08 09/03/1909/04/2024 CBC, PLATE LET, NO DIFFE RENTI AL hematocrit 43.6 % 37.5-5 1.0 Not Available [address], [address], 09/04/2024 10:16:08 09/03/1909/04/2024 CBC, PLATE LET, NO DIFFE RENTI AL MCV 88 fL 79-97 Not Available [address], [address], 09/04/2024 10:16:08 09/03/1909/04/2024 CBC, PLATE LET, NO DIFFE RENTI AL MCH 27.9 pg 26.6-3 3.0 Not Available [address], [address], 09/04/2024 10:16:08 09/03/1909/04/2024 CBC, PLATE LET, NO DIFFE RENTI AL MCHC 31.7 g/dL 31.5-3 5.7 Not Available [address], [address], 09/04/2024 10:16:08 09/03/1909/04/2024 CBC, PLATE LET, NO DIFFE RENTI AL RDW 13.8 % 11.6-1 5.4 Not Available [address], [address], 09/04/2024 10:16:08 09/03/1909/04/2024 CBC, PLATE LET, NO DIFFE RENTI AL platelets 415 x10e3 /uL 150-45 0 Not Available [address], [address], 09/04/2024 10:16:08 09/03/19 25 09/03/2024 HbA1c (hemo globi n A1c), blood HbA1c 9.0 Not Available In-Office Order Internal Use Only DO Not Attach Compendium DO Not Attach Compendium, Do Not Delete/merge, [id number] 09/03/2024 12:01:31 10/17/19 25 10/16/2024 Gluco se [Mass /volu me] in Blood glucose [mass/volume ] in blood 94 mg/dL low: 70mg/d Lhigh: 99mg/d L GLUCO SE,BE DSIDE POCT 94 70 - 99 mg/dL 10/16 8:08 AM CDT [facility] Not Available [...] Inval id 10/16 7:39 AM CDT [facility] Not [...] yen, Error 10/16 7:05 AM CDT [facility] [employer] [facility] Not Available Not Available 12/03/2024 [...] Negat yen 10/16 7:05 AM CDT [facility] [employer] [facility] Not Available Not Available 12/03/2024 [...] Negat yen 10/16 7:05 AM CDT [facility] [employer] [facility] Not Available Not Available 12/03/2024 [...] Detec leodan) 10/16 7:05 AM CDT [facility] [employer] [facility] Not Available Not Available 12/03/2024 [...] mmol/ L 10/16 6:47 AM CDT [facility] [employer] [employer] [facility] Not Available Not Available 12/03/2024 11:57:27 10/17/1910/16/2024 Basic metab olic 1999 panel - Serum or Plasm a potassium [moles/volum e] in serum or plasma 4.1 mmol/ L low: 3.5mmo l/Lhig h: 5.1mmo l/L POTAS SIUM 4.1 3.5 - 5.1 mmol/ L 10/16 6:47 AM CDT [facility] Not Available Not Available 12/03/2024 11:57:27 10/17/1910/16/2024 Basic metab olic 1999 panel - Serum or Plasm a chloride [moles/volum e] in serum or plasma 113 mmol/ L low: 98mmol /Lhigh : 107mmo l/L high CHLOR JULIENNE 113 (H) 98 - 107 mmol/ L 10/16 6:47 AM CDT [facility] Not Available Not Available 12/03/2024 11:57:27 10/17/19 25 10/16/2024 Basic metab olic 1999 panel - Serum or Plasm a carbon dioxide, total [moles/volum e] in serum or plasma 22 mmol/ L low: 22mmol /Lhigh : 30mmol /L CO2, VENOU S 22 22 - 30 mmol/ L 10/16 6:47 AM CDT [facility] Not Available Not Available 12/03/2024 11:57:27 10/17/19 25 10/16/2024 Basic metab olic 2000 panel - Serum or Plasm a anion gap in serum or plasma by calculation 12.1 mmol/ L high: 18mmol /L ANION GAP 12.1 <18.0 mmol/ L 10/16 6:47 AM CDT [facility] Not Available Not Available 12/03/2024 11:57:27 10/17/19 25 10/16/2024 Basic metab olic 1999 panel - Serum or Plasm a glucose [mass/volume ] in serum or plasma 107 mg/dL low: 70mg/d Lhigh: 99mg/d L high GLUCO SE 107 (H) 70 - 99 mg/dL 10/16 6:47 AM CDT [facility] [employer] [facility] Not Available Not Available 12/03/2024 11:57:27 10/17/19 25 10/16/2024 Basic metab olic 1999 panel - Serum or Plasm a urea nitrogen [mass/volume ] in serum or plasma 24 mg/dL low: 9mg/dL high: 21mg/d L high BUN 24 (H) 9 - 21 mg/dL 10/16 6:47 AM T [facility] [employer] [facility] Not Available Not Available 12/03/2024 11:57:27 10/17/19 25 10/16/2024 Basic metab olic 1999 panel - Serum or Plasm a creatinine [mass/volume ] in serum or plasma 1.15 mg/dL low: 0.7mg/ dLhigh : 1.3mg/ dL CREAT ININE , BLOOD 1.15 0.70 - 1.30 mg/dL 10/16 6:47 AM CDT [facility] Not Available Not Available 12/03/2024 11:57:27 10/17/19 25 10/16/2024 Basic metab olic 1999 panel - Serum or Plasm a urea nitrogen/cre atinine [mass ratio] in serum or plasma 21 text: 12 - 20 ratio high BUN/C REATI NINE RATIO 21 (H) 12 - 20 ratio 10/16 6:47 AM CDT [facility] [employer] [facility] [facility] LAB Not Available Not Available 12/03/2024 11:57:27 10/17/19 25 10/16/2024 Basic metab olic 2000 panel - Serum or Plasm a calcium [mass/volume ] in serum or plasma 9 mg/dL low: 8.7mg/ dLhigh : 10.5mg /dL CALCI UM 9.0 8.7 - 10.5 mg/dL 10/16 6:47 AM CDT [facility] Not Available Not Available 12/03/2024 11:57:27 10/17/19 25 10/16/2024 Basic metab olic 2000 panel - Serum or Plasm a glomerular filtration rate [volume rate/area] in serum, plasma or blood by creatinine-b ased formula (CKD-epi 2020)/1.73 sq M low: 60 GFR, ESTIM ATED >60 >=60 10/16 6:47 AM CDT [facility] [employer] [facility] LAB Not Available Not Available 12/03/2024 11:57:27 10/17/19 25 10/16/2024 Basic metab olic 2000 panel - Serum or Plasm a glomerular filtration rate [volume rate/area] in serum, plasma or blood by creatinine-b ased formula (MDRD)/1.73 sq M among black population low: 60 GFR, EST. AFRIC AN >60 >=60 10/16 6:47 AM CDT [facility]omasaT H [facility] LAB Not Available Not Available 12/03/2024 11:57:27 10/17/19 25 10/16/2024 Basic metab olic 2000 panel - Serum or Plasm a glomerular filtration rate [volume rate/area] in serum, plasma or blood by creatinine-b ased formula (MDRD)/1.73 sq M among non black population low: 60 GFR, EST. NONAF RICAN >60 >=60 10/16 6:47 AM CDT [facility] [employer] H [facility] Not Available Not [...] g/dL 10/16 3:06 AM CDT [facility] Not Available Not Available 12/03/2024 11:57:27 10/17/19 25 10/16/2024 CBC W Auto Diffe renti al panel - Blood hematocrit [volume fraction] of blood by automated count 42.9 % low: 38%hig h: 50% HEMAT OCRIT (HCT) 42.9 38.0 - 50.0 % 10/16 3:06 AM CDT [facility] Not Available Not Available 12/03/2024 11:57:27 10/17/19 25 10/16/2024 CBC W Auto Diffe renti al panel - Blood MCV [entitic mean volume] in red blood cells by automated count 87.6 fL low: 82fLhi gh: 96fL MCV 87.6 82.0 - 96.0 fL 10/16 3:06 AM CD[facility] Not Available Not Available 12/03/2024 11:57:27 10/17/19 25 10/16/2024 CBC W Auto Diffe renti al panel - Blood MCH [entitic mass] by automated count 29.2 pg low: 26pghi gh: 32pg MCH 29.2 26.0 - 32.0 pg 10/16 3:06 AM CDT [facility] Not Available Not Available 12/03/2024 11:57:27 10/17/19 25 10/16/2024 CBC W Auto Diffe renti al panel - Blood MCHC [entitic mass/volume] in red blood cells by automated count 33.3 g/dL low: 31g/dL high: 36g/dL MCHC 33.3 31.0 - 36.0 g/dL 10/16 3:06 AM CDT [facility] Not Available Not Available 12/03/2024 11:57:27 10/17/19 25 10/16/2024 CBC W Auto Diffe renti al panel - Blood platelets [#/volume] in blood 315 text: 140 - 440 10(3)/ mcL PLATE LET COUNT 315 140 - 440 10(3) /mcL 10/16 3:06 AM CDT [facility] Not Available Not Available 12/03/2024 11:57:27 10/17/19 25 10/16/2024 CBC W Auto Diffe renti al panel - Blood erythrocyte [distwidth] in red blood cells by automated count 13.5 % low: 11.8%h igh: 15.5% RDW 13.5 11.8 - 15.5 % 10/16 3:06 AM CD[facility] Not Available Not Available 12/03/2024 11:57:27 10/17/19 25 10/16/2024 CBC W Auto Diffe renti al panel - Blood platelet [entitic mean volume] in blood by automated count 10.6 fL low: 8fLhig h: 12.6fL MPV 10.6 8.0 - 12.6 fL 10/16 3:06 AM [facility] Not Available Not Available 12/03/2024 11:57:27 10/17/19 25 10/16/2024 CBC W Auto Diffe renti al panel - Blood neutrophils/ leukocytes in blood by automated count 87.6 % low: 40%hig h: 68% high NEUTR OPHIL S 87.6 (H) 40.0 - 68.0 % 10/16 3:06 AM CDT [facility] Not Available Not Available 12/03/2024 11:57:27 10/17/19 25 10/16/2024 CBC W Auto Diffe renti al panel - Blood lymphocytes/ leukocytes in blood by automated count 9.3 % low: 19%hig h: 49% low LYMPH OCYTE S 9.3 (L) 19.0 - 49.0 % 10/16 3:06 AM CDT [facility] Not Available Not Available 12/03/2024 11:57:27 10/17/19 25 10/16/2024 CBC W Auto Diffe renti al panel - Blood monocytes/le ukocytes in blood by automated count 2.7 % low: 3%high : 13% low MONOC YTES 2.7 (L) 3.0 - 13.0 % 10/16 3:06 AM CDT [facility] Not Available Not Available 12/03/2024 11:57:27 10/17/19 25 10/16/2024 CBC W Auto Diffe renti al panel - Blood eosinophils/ leukocytes in blood by automated count 0 % low: 0%high : 8% EOSIN OPHIL S 0.0 0.0 - 8.0 % 10/16 3:06 AM CDT [facility] Not Available Not Available 12/03/2024 11:57:27 10/17/19 25 10/16/2024 CBC W Auto Diffe renti al panel - Blood basophils/le ukocytes in blood by automated count 0.4 % low: 0%high : 1% BASOP HILS 0.4 0.0 - 1.0 % 10/16 3:06 AM CDT [facility] Not Available Not Available 12/03/2024 11:57:27 10/17/19 25 10/16/2024 CBC W Auto Diffe renti al panel - Blood neutrophils [#/volume] in blood by automated count 13.16 text: 1.40 - 5.30 10(3)/ mcL high ABSOL QUILEUTE NEUTR OPHIL S 13.16 (H) 1.40 - 5.30 10(3) /mcL 10/16 3:06 AM CDT [facility] Not Available Not Available 12/03/2024 11:57:27 10/17/19 25 10/16/2024 CBC W Auto Diffe renti al panel - Blood lymphocytes [#/volume] in blood by automated count 1.39 text: 0.90 - 3.30 10(3)/ mcL ABSOL QUILEUTE LYMPH OCYTE S 1.39 0.90 - 3.30 10(3) /mcL 10/16 3:06 AM CDT [facility] Not Available Not Available 12/03/2024 11:57:27 10/17/19 25 10/16/2024 CBC W Auto Diffe renti al panel - Blood monocytes [#/volume] in blood by automated count 0.41 text: 0.10 - 0.90 10(3)/ mcL ABSOL QUILEUTE MONOC YTES 0.41 0.10 - 0.90 10(3) /mcL 10/16 3:06 AM CD[facility] Not Available Not Available 12/03/2024 11:57:27 10/17/19 25 10/16/2024 CBC W Auto Diffe renti al panel - Blood eosinophils [#/volume] in blood by automated count 0 text: 0.00 - 0.50 10(3)/ mcL ABSOL QUILEUTE EOSIN OPHIL 0.00 0.00 - 0.50 10(3) /mcL 10/16 3:06 AM CDT [facility] Not Available Not Available 12/03/2024 11:57:27 10/17/19 25 10/16/2024 CBC W Auto Diffe renti al panel - Blood basophils [#/volume] in blood by automated count 0.06 text: 0.00 - 0.10 10(3)/ mcL ABSOL QUILEUTE BASOP HILS 0.06 0.00 - 0.10 10(3) /mcL 10/16 3:06 AM CD[facility] Not Available Not Available 12/03/2024 11:57:27 10/17/19 25 10/16/2024 CBC W Auto Diffe renti al panel - Blood nucleated erythrocytes /leukocytes [ratio] in blood 0 NRBC PER 100 WBC 0 10/16 3:06 AM CDT [facility] Not Available [...] 7.34 - 7.43 10/16 3:04 AM CDT [facility] Not Available Not Available 12/03/2024 11:57:27 10/17/19 25 10/16/2024 Gas panel - Venou s blood carbon dioxide [partial pressure] in venous blood 23 text: 41 - 51 mmHg low PCO2 (VENO US) 23 (L) 41 - 51 mmHg 10/16 3:04 AM CDT [facility] Not Available [...] 3:04 AM CDT [facility] Not Available Not Available 12/03/2024 11:57:27 10/17/19 25 10/16/2024 Gas panel - Venou s blood bicarbonate [moles/volum e] in blood 16.7 mmol/ L low: 22mmol /Lhigh : 26mmol /L low BICAR BONAT E 16.7 (L) 22.0 - 26.0 mmol/ L 10/16 3:04 AM CDT [facility] Not Available Not Available 12/03/2024 11:57:27 10/17/19 25 10/16/2024 Gas panel - Venou s blood base venous -4.6 mmol/ L low: -2mmol /Lhigh : 3mmol/ L low BASE VENOU S -4.6 (L) -2.0 - 3.0 mmol/ L 10/16 3:04 AM CDT [facility] Not Available Not Available 12/03/2024 11:57:27 10/17/19 25 10/16/2024 Gas panel - Venou s blood carboxyhemog lobin/hemogl obin.total in blood 0.5 % low: 0%high : 5% CARBO XYHEM OGLOB IN 0.5 0.0 - 5.0 % 10/16 3:04 AM CDT [facility] Not Available Not Available 12/03/2024 11:57:27 10/17/19 25 10/16/2024 Gas panel - Venou s blood methemoglobi n/hemoglobin .total in blood 0.7 % low: 0%high : 1.5% METHE MOGLO BIN 0.7 0.0 - 1.5 % 10/16 3:04 AM CDT [facility] Not Available Not [...] 78 U/L 10/16 3:36 AM CDT [facility] Not [...] <10 mg/dL 10/16 3:36 AM CDT [facility] [...] mmol/ L 03/28 /2025 3:36 AM CDT [facility] Not Available Not Available 12/03/2024 11:57:27 10/17/19 25 10/16/2024 Compr ehens yen metab olic 1999 panel - Serum or Plasm a potassium [moles/volum e] in serum or plasma 4.2 mmol/ L low: 3.5mmo l/Lhig h: 5.1mmo l/L POTAS SIUM 4.2 3.5 - 5.1 mmol/ L 10/16 3:36 AM CDT [facility] Not Available Not Available 12/03/2024 11:57:27 10/17/19 25 10/16/2024 Compr ehens yen metab olic 1999 panel - Serum or Plasm a chloride [moles/volum e] in serum or plasma 107 mmol/ L low: 98mmol /Lhigh : 107mmo l/L CHLOR JULIENNE 107 98 - 107 mmol/ L 10/16 3:36 AM CDT [facility] Not Available Not Available 12/03/2024 11:57:27 10/17/19 25 10/16/2024 Compr ehens yen metab olic 1999 panel - Serum or Plasm a carbon dioxide, total [moles/volum e] in serum or plasma 15 mmol/ L low: 22mmol /Lhigh : 30mmol /L low CO2, VENOU S 15 (L) 22 - 30 mmol/ L 10/16 3:[address] [facility] Not Available Not Available 12/03/2024 11:57:27 10/17/19 25 10/16/2024 Compr ehens yen metab olic 1999 panel - Serum or Plasm a anion gap in serum or plasma by calculation 23.2 mmol/ L high: 18mmol /L high ANION GAP 23.2 (H) <18.0 mmol/ L 10/16 3:36 AM CDT [facility] Not Available Not Available 12/03/2024 11:57:27 10/17/19 25 10/16/2024 Compr ehens yen metab olic 1999 panel - Serum or Plasm a glucose [mass/volume ] in serum or plasma 256 mg/dL low: 70mg/d Lhigh: 99mg/d L high GLUCO SE 256 (H) 70 - 99 mg/dL 10/16 3:36 AM CDT [facility] Dragon[facility] R [facility] Not Available Not Available 12/03/2024 11:57:27 10/17/19 25 10/16/2024 Compr ehens yen metab olic 1999 panel - Serum or Plasm a urea nitrogen [mass/volume ] in serum or plasma 23 mg/dL low: 9mg/dL high: 21mg/d L high BUN 23 (H) 9 - 21 mg/dL 10/16 3:36 AM CDT [facility] Not Available Not Available 12/03/2024 11:57:27 10/17/19 25 10/16/2024 Compr Stem[employer]teens yen metab olic 1999 panel - Serum or Plasm a creatinine [mass/volume ] in serum or plasma 1.21 mg/dL low: 0.7mg/ dLhigh : 1.3mg/ dL CREAT ININE , BLOOD 1.21 0.70 - 1.30 mg/dL 10/16 3:36 AM CDT [facility] Not Available Not Available 12/03/2024 11:57:27 10/17/19 25 10/16/2024 Compr Stem[employer]te[employer] yen metab olic 1999 panel - Serum or Plasm a urea nitrogen/cre atinine [mass ratio] in serum or plasma 19 text: 12 - 20 ratio BUN/C REATI NINE RATIO 19 12 - 20 ratio 10/16 3:36 AM CDT [facility] Not Available Not Available 12/03/2024 11:57:27 10/17/19 25 10/16/2024 Compr StemCyteens yen metab olic 1999 panel - Serum or Plasm a protein [mass/volume ] in serum or plasma 7.9 g/dL low: 6g/dLh igh: 8g/dL TOTAL PROTE IN 7.9 6.0 - 8.0 g/dL 10/16 3:36 AM CDT [facility] R [facility] Not Available Not Available 12/03/2024 11:57:27 10/17/19 25 10/16/2024 Compr ehens yne metab olic 1999 panel - Serum or Plasm a albumin [mass/volume ] in serum or plasma 4.7 g/dL low: 3.5g/d Lhigh: 5g/dL ALBUM IN 4.7 3.5 - 5.0 g/dL 10/16 3:36 AM CDT [facility] Not Available Not Available 12/03/2024 11:57:27 10/17/19 25 10/16/2024 Compr ehens yen metab olic 2000 panel - Serum or Plasm a albumin/glob ulin [mass ratio] in serum or plasma 1.5 low: 1high: 2.2 A/G RATIO 1.5 1.0 - 2.2 10/16 3:36 AM CDT [facility] Not Available Not Available 12/03/2024 11:57:27 10/17/19 25 10/16/2024 Compr ehens yen metab olic 1999 panel - Serum or Plasm a calcium [mass/volume ] in serum or plasma 9.2 mg/dL low: 8.7mg/ dLhigh : 10.5mg /dL CALCI UM 9.2 8.7 - 10.5 mg/dL 10/16 3:36 AM CDT [facility] Not Available Not Available 12/03/2024 11:57:27 10/17/19 25 10/16/2024 Compr ehens yen metab olic 1999 panel - Serum or Plasm a bilirubin.to su [mass/volume ] in serum or plasma 0.7 mg/dL low: 0.2mg/ dLhigh : 1.2mg/ dL T BILI 0.7 0.2 - 1.2 mg/dL 10/16 3:36 AM CDT [facility] Not Available Not Available 12/03/2024 11:57:27 10/17/19 25 10/16/2024 Compr ehens yen metab olic 2000 panel - Serum or Plasm a aspartate aminotransfe rase [enzymatic activity/vol ume] in serum or plasma 28 U/L high: 43U/L SGOT (AST) 28 <43 U/L 10/16 3:36 AM CDT [facility] Not Available Not Available 12/03/2024 11:57:27 10/17/19 25 10/16/2024 Compr ehens yen metab olic 1999 panel - Serum or Plasm a alanine aminotransfe rase [enzymatic activity/vol ume] in serum or plasma 17 U/L high: 56U/L SGPT (ALT) 17 <56 U/L 10/16 3:36 AM CDT [facility] Not Available Not Available 12/03/2024 11:57:27 10/17/19 25 10/16/2024 Compr ehens yen metab olic 1999 panel - Serum or Plasm a alkaline phosphatase [enzymatic activity/vol ume] in serum or plasma 78 U/L low: 40U/Lh igh: 150U/L ALKAL INE PHOSP HATAS E 78 40 - 150 U/L 10/16 3:36 AM CDT [facility] Not Available Not Available 12/03/2024 11:57:27 10/17/19 25 10/16/2024 Compr ehens yen metab olic 2000 panel - Serum or Plasm a glomerular filtration rate [volume rate/area] in serum, plasma or blood by creatinine-b ased formula (CKD-epi 2020)/1.73 sq M low: 60 GFR, ESTIM ATED >60 >=60 10/16 3:36 AM CDT [facility] Not Available Not Available 12/03/2024 11:57:27 10/17/1910/16/2024 Compr ehens yen metab olic 2000 panel - Serum or Plasm a glomerular filtration rate [volume rate/area] in serum, plasma or blood by creatinine-b ased formula (MDRD)/1.73 sq M among black population low: 60 GFR, EST. AFRIC AN >60 >=60 10/16 3:36 AM CDT [facility] Not Available Not Available 12/03/2024 11:57:27 10/17/19 25 10/16/2024 Compr ehens yen metab olic 2000 panel - Serum or Plasm a glomerular filtration rate [volume rate/area] in serum, plasma or blood by creatinine-b ased formula (MDRD)/1.73 sq M among non black population low: 60 GFR, EST. NONAF RICAN >60 >=60 10/16 3:36 AM CDT [facility] Not Available Not Available [...] Not Available 01/06/2025 04:45:54 12/25/19 25 12/24/2024 [facility] Gusto yen Revisu olic 2000 panel - Serum or Plasm [...] Not Available 01/06/2025 04:45:54 12/25/19 25 12/24/2024 [facility] metab [facility]lic 1999 panel - Serum or Plasm a carbon dioxide, total [moles/volum e] in serum or plasma 21 mmol/ L low: 22mmol /Lhigh : 30mmol /L low Not Available Not Available 01/06/2025 04:45:54 12/25/19 25 12/24/2024 [facility] yen Revisu olic 2000 panel - Serum or Plasm a anion gap in serum or plasma by calculation 20.8 mmol/ L high: 18mmol /L high Not Available Not Available 01/06/2025 04:45:54 12/25/19 25 12/24/2024 [facility] yen Revisu olic 1999 panel - Serum or Plasm a glucose [mass/volume ] in serum or plasma 204 mg/dL low: 70mg/d Lhigh: 99mg/d L high Not Available Not Available 01/06/2025 04:45:54 12/25/19 25 12/24/2024 [facility] Gusto yen Revisu olic 2000 panel - Serum or Plasm a urea nitrogen [mass/volume ] in serum or plasma 27 mg/dL low: 9mg/dL high: 21mg/d L high Not Available Not Available 01/06/2025 04:45:54 12/25/19 25 12/24/2024 [facility] Gusto yen Revisu olic 2000 panel - Serum or Plasm a creatinine [mass/volume ] in serum or plasma 1.31 mg/dL low: 0.7mg/ dLhigh : 1.3mg/ dL high Not Available Not Available 01/06/2025 04:45:54 12/25/19 25 12/24/2024 [facility] Gusto yen Revisu [facility] 2000 panel - Serum or Plasm a urea nitrogen/cre atinine [mass ratio] in serum or plasma 21 text: 12 - 20 ratio high Not Available Not Available 01/06/2025 04:45:54 12/25/19 25 12/24/2024 [facility] Gusto yen Revisu [facility] 1999 panel - Serum or Plasm a protein [mass/volume ] in serum or plasma 8.4 g/dL low: 6g/dLh igh: 8g/dL high Not Available Not Available 01/06/2025 04:45:54 12/25/19 25 12/24/2024 [facility] Gusto yen Revisu [facility] 1999 panel - Serum or Plasm a albumin [mass/volume ] in serum or plasma 5.1 g/dL low: 3.5g/d Lhigh: 5g/dL high Not Available Not Available 01/06/2025 04:45:54 12/25/19 25 12/24/2024 [facility] Gusto yen Revisu [facility] 2000 panel - Serum or Plasm a albumin/glob ulin [mass ratio] in serum or plasma 1.5 low: 1high: 2.2 Not Available Not Available 01/06/2025 04:45:54 12/25/19 25 12/24/2024 [facility] Gusto yen Revisu [facility] 2000 panel - Serum or Plasm a calcium [mass/volume ] in serum or plasma 9.7 mg/dL low: 8.7mg/ dLhigh : 10.5mg /dL Not Available Not Available 01/06/2025 04:45:54 12/25/19 25 12/24/2024 [facility] Gusto yen Revisu [facility] 1999 panel - Serum or Plasm a bilirubin.to su [mass/volume ] in serum or plasma 1.1 mg/dL low: 0.2mg/ dLhigh : 1.2mg/ dL Not Available Not Available 01/06/2025 04:45:54 12/25/19 25 12/24/2024 [facility] Gusto yen Revisu [facility] 2000 panel - Serum or Plasm [...] XR, chest No observ ation record ed. [place] [address] [place], [address], 09/18/2024 10:37:26 10/16/19 25 10/15/2024 XR, chest No observ ation record ed. [address], [address], 10/16/2024 09:14:36 10/17/19 25 10/16/2024 CT, abdom en + pelvi s, w/ contr ast No observ ation record ed. [facility] [address] [place], [address], 10/16/2024 15:52:49 Result Notes None recorded. Problems Name Problem SNOMED Code Status Onset Date Resolution Date Notes Provider Name and Address Organization Details Recorded Time Pneumonia 420488635 Active 2017 KAUR oChen [place] - [facility] 0 11:54:45 Dehydration 11220435 Active 2017 KAUR Contreras, [place] - [facility] 1 14:33:10 Mixed hypercholester olemia and hypertriglycer idemia 950106711 Active 2017 KAUR [place] - [facility] 0 11:54:46 Type 1 diabetes mellitus 20350869 Active 2017 KAUR [place] - [facility] 0 11:54:45 Diabetic ketoacidosis without coma 381491064 Active 2017 KAUR [place] - [facility] 1 10:29:24 Problem Notes Documentation Provider Name and Address Organization Details Recorded Time Endocrinology Consult Note : This document (1 of ) was received from [id number] [place] on 02/11/2025 through Direct Message along with the following message body content: Patient Name: PETER CLIFTON Patient : 2000. Patient . KAUR [place] - [facility] 02/11/2025 09:40:22 Procedures Surgical History Date Name Laterality Status Provider Name and Address Organization Details Recorded Time Cholecystectomy completed Ruth Ann Gramajo [place] - [facility] 09/03/2024 11:51:23 Imaging Results None recorded. Procedure Notes None recorded. Medical Equipment None Reported. Allergies Allergen ID Allergen Name Allergen Category Reaction Reaction Severity Criticality Documentation Date Start Date Code Code System Note Provider Name and Address Organization Details Recorded Time [id number] Haldol medicatio n confusion moderate Not available 01/06/2025 09300 9 RxNorm KAUR [place], [place] - [facility] 5 14:50:39 37391 strawberr y allergeni c extract food rash moderate Not available 03/23/2015 92919 4 RxNorm KAUR [place] - [facility] 0 11:55:03 Medications Name Sig Start Date [...] HOURS BY ORAL ROUTE FOR 10 DAYS. 04/25 /2022 completed Not Available Not Available [...] completed Not Available Not Available Not Available [employer] Ultra Test strips CHECK BLOOD SUGAR 3 [...] Insulin Syringe 0.5 mL 31 gauge x 5/16 11/13 completed Not [...] Available Not Available Not Available Dexcom G6 Watch Dial Printer USE TO CHECK GLUCOSE FOUR TIMES DAILY [...] Updated DateTime 5 170.18 cm 26.3 kg/m2 74125.5 2 g 98 % 98 % 92 /min 16 /min 128/78 mm[Hg] Ruth Ann Gramajo MA [facility] 5 11:53:39 Date Recorded Body height Body mass index (BMI) Body weight Respiratory rate Oxygen saturation Oxygen saturation in Arterial blood by Pulse oximetry Heart rate Systolic And Diastolic Provider Name and Address Organization Details Last Updated DateTime 3 170.18 cm 22.7 kg/m2 54067.6 1 g 16 /min 97 % 97 % 95 /min 105/9 mm[Hg] Mary Melendez MA [facility] 3 14:24:52 Date Recorded Body height Body mass index (BMI) Body weight Oxygen saturation Oxygen saturation in Arterial blood by Pulse oximetry Heart rate Respiratory rate Systolic And Diastolic Provider Name and Address Organization Details Last Updated DateTime 5 170.18 cm 23.6 kg/m2 83443.7 3 g 97 % 97 % 74 /min 18 /min 121/73 mm[Hg] Ruth Ann Gramajo MA [facility] 5 14:55:53 Date Recorded Body height Body mass index (BMI) Body weight Oxygen saturation Oxygen saturation in Arterial blood by Pulse oximetry Heart rate Respiratory rate Systolic And Diastolic Provider Name and Address Organization Details Last Updated DateTime 3 170.18 cm 23.1 kg/m2 07721.1 8 g 99 % 99 % 97 /min 16 /min 129/65 mm[Hg] Bella Bedoya MA [place] - [facility] 3 15:15:42 Date Recorded Body height Body mass index (BMI) Body weight Body temperature Oxygen saturation Oxygen saturation in Arterial blood by Pulse oximetry Heart rate Systolic And Diastolic Provider Name and Address Organization Details Last Updated DateTime 2 170.18 cm 24.3 kg/m2 02974.8 2 g 97.3 [degF] 99 % 99 % 90 /min 138/84 mm[Hg] Telma david MA [facility] 2 11:31:36 Social History Question Answer Notes LastModified by Organizat ion Details LastModified Time Tobacco Smoking Status Never Smoker Telma Wade MA [facility], [facility] 05/30/2022 11:32:23 Animal Exposure? Yes [email or web address] Informat ion not available 03/23/2015 Are You Blind Or Do You Have Difficulty Seeing? Yes [email or web address] Information not available 05/30/2022 What Is Your [...] Type Of Diet Are You Following? REGULAR [email or web address] Information not available 03/23/2015 Are There Any Guns Present In Your Home? Yes [email or web address] Information not available 03/23/2015 What Is Your Home Situation? Relatives Lives With Maternal Grandparents [email or web address] Information not available 05/09/2016 Do You Use Insect Repellent Routinely? Yes Information not available 03/23/2015 Live Alone Or With Others? With Others Information not available 05/06/2020 What Was The Date Of Your Most Recent Tobacco Screening? 01/06/2025 Information not available 01/06/2025 What Is Your Parents' Marital Status? Unmarried [email or web address] Information not available 03/23/2015 Pool Exposure No [email or web address] Information not available 03/23/2015 What Is Your [...] Are You Passively Exposed To Smoke? Yes [email or web address] Information not available 03/23/2015 How Much Tobacco Do You Smoke? No Information not available 08/04/2019 What Types Of Sporting Activities Do You Participate In? Golf [email or web address] Information not available 03/23/2015 General Stress Level Low Information not available 05/06/2020 Do You Use Sunscreen Routinely? Yes [email or web address] Information not available 03/23/2015 Has Tobacco Cessation [...] 05/06/2020 Are you able to care for yourself independently? Yes Information not available 05/06/2020 Do you or have you ever used e-cigarettes or vape? Current user of electronic cigarettes Information not available 05/30/2022 What is your exercise level? Moderate [email or web address] Information not available 03/23/2015 Mental Status Question Answer Note LastModified by Organizat ion Details LastModified Time Do you feel stressed (tense, restless, nervous, or anxious, or unable to sleep at night)? [id number] restless Information not available 05/30/2022 Are you or have you been involved with bullying? No [email or web address] Information not available 03/23/2015 Family History Nothing [...] Time Meningococcal MCV4O 6 completed Not [facility] 02:32:35 HPV9 6 completed Not Available [facility] 08/08/2019 02:42:35 Influenza, split virus, quadrivalent, PF 6 completed Not Available [facility] 08/08/2019 02:32:34 Hib, unspecified formulation 2 completed Not Available [facility] 01/06/2025 14:43:16 Hep A, pediatric, unspecified formulation 0 completed Not Available [facility] 01/06/2025 14:43:16 Hep B, adolescent or pediatric 0 completed Not Available [facility] 05/07/2023 15:37:51 Hep B, adolescent or pediatric 0 completed Not Available [facility] 05/07/2023 15:37:51 Hep B, adolescent or pediatric 0 completed Not Available [facility] 05/07/2023 15:37:51 DTaP 4 completed Not Available [facility] 05/07/2023 15:37:51 DTaP 0 completed Not Available [facility] 05/07/2023 15:37:51 DTaP 2 completed Not Available [facility] 05/07/2023 15:37:51 DTaP 0 completed Not Available [facility] 05/07/2023 15:37:51 DTaP 0 completed Not Available [facility] 05/07/2023 15:37:51 Hib, unspecified formulation 0 completed Not Available [facility] 05/07/2023 15:37:51 Hib, unspecified formulation 4 completed Not Available [facility] 05/07/2023 15:37:51 Hib, unspecified formulation 0 completed Not Available [facility] 05/07/2023 15:37:51 Hib, unspecified formulation 0 completed Not Available [facility] 05/07/2023 15:37:51 IPV 0 completed Not Available [facility] 05/07/2023 15:37:51 IPV 4 completed Not Available [facility] 05/07/2023 15:37:51 IPV 0 completed Not Available [facility] 05/07/2023 15:37:51 IPV 0 completed Not Available [facility] 05/07/2023 15:37:51 pneumococcal conjugate PCV 7 1 completed Not Available [facility] 05/07/2023 15:37:51 MMR 4 completed Not Available [facility] 05/07/2023 15:37:51 MMR 2 completed Not Available [facility] 05/07/2023 15:37:51 varicella 0 completed Not Available [facility] 05/07/2023 15:37:51 varicella 2 completed Not Available [facility] 05/07/[facility]23 15:37:51 influenza, unspecified formulation 2 completed Not Available [facility] 05/07/2023 15:37:51 influenza, unspecified formulation 0 completed Not Available [facility] 05/07/2023 15:37:51 influenza, unspecified formulation 4 completed Not Available [facility] 05/07/2023 15:37:51 meningococcal MCV4, unspecified formulation 2 completed Not Available [facility] 05/07/2023 15:37:51 Tdap 0 completed Not Available [facility] 05/07/2023 15:37:51 Hep A, ped/adol, 2 dose 6 completed Not Available [facility] 05/07/2023 15:37:51 Hep A, ped/adol, 2 dose 5 completed Not Available [facility] 05/07/2023 15:37:51 HPV, quadrivalent 4 completed Not Available [facility] 05/07/2023 15:37:51 HPV9 5 completed Not Available [facility] 08/08/2019 02:46:07 Past Encounters Encounter ID Performer Location Encounter Start Date Encounter Closed Date Diagnosis/Indication Diagnosis SNOMED-CT Code Diagnosis ICD10 Code Diagnosis IMO Codes Diagnosis Note [id number] MD María Mendez (Peds) [address] [place] [address] 03/23/2015 11:08:16 03/23/2015 12:29:38 Well child [id number] Routine adolescent care discussed safety and school performanc e discussed healthy weight with diet and exercise Type 1 ignacio betes mellitus 02683707 Routine f/u with endocrinol ogy. Daily BS monitoring . [id number] MD María Mendez (Peds) [address] [place] [address] 05/09/2016 15:46:21 05/09/2016 17:18:51 Well child [id number] Z00.129 Routine adolescent care discussed safety and school performanc e discussed healthy weight with diet and exercise Type 1 ignacio betes mellitus 95167998 E10.8 Routine f/u with endocrinol ogy. Daily BS monitoring . [id number] Prashanth Saldana PA-C [facility] [address] [place] [address] 03/18/2019 11:43:52 03/18/2019 12:43:28 Type 1 diabetes mellitus 66524784 E10.9 [id number] Prashanth Saldana PA-C [facility] [address] [place] [address] 06/09/2019 17:42:26 06/09/2019 18:58:04 Uncontrolled type 1 diabetes mellitus 324748624 E10.65 [id number] Prashanth Saldana PA-C [facility] [address] [place] [address] 08/04/2019 15:54:01 08/04/2019 17:37:44 Low back pain 617423926 M54.5 Backache w ith radiating pain 044969248 M54.04 [id number] Prashanth Saldana PA-C [facility] [address] [place] [address] 11/20/2019 09:29:53 11/20/2019 19:46:46 [id number] Juan Pemberton MD [facility] [address] [place] [address] 05/06/2020 09:37:24 05/06/2020 12:43:22 Type 1 diabetes mellitus 56056059 E10.9 Secondary erectile dysfunction 562045860 N52.8 Mixed hypercholesterolemia and hypertriglyceridemia 791097965 E78.2 [id number] Juan Pemberton MD [facility] [address] [place] [address] 08/02/2020 10:24:01 08/03/2020 08:12:05 Uncontrolled type 1 diabetes mellitus 866706236 E10.65 [id number] Prashanth Saldana PA-C [facility] [address] [place] [address] 09/21/2020 10:21:28 09/22/2020 15:52:19 Paresthesia of lower extremity 224643755 R20.2 Gastroesop hageal reflux disease without esophagitis 504636352 K21.9 Low back pain 221122598 M54.5 Gynecomastia 1850561 N62 [id number] Juan Pemberton MD [facility] [address] [place] [address] 10/31/2020 14:28:27 11/01/2020 09:28:09 Type 1 diabetes mellitus 14146812 E10.9 Mixed hypercholesterolemia and hypertriglyceridemia 450371596 E78.2 Gastro-eso phageal reflux disease with esophagitis 860739922 K21.00 Viral gastroenteritis 11 9653720 A08.19 [id number] Juan Pemberton MD [facility] [address] [place] [address] 01/10/2021 16:45:57 01/18/2021 07:34:35 [id number] Prashanth Saldana PA-C [facility] [address] [place] [address] 05/09/2021 10:30:53 05/09/2021 11:54:35 Type 1 diabetes mellitus without complication 609360050 E10.9 [id number] Prashanth Saldana PA-C [facility] [address] [place] [address] 06/07/2021 16:49:31 06/07/2021 16:56:56 Nausea and vomiting 23214285 R11.2 Javier ordered Diphenhydr amine, was administer ed and pt was advised if didn't help to go to ER, voiced understand ing [id number] Juan Pemberton MD [facility] [address] [place] [address] 11/13/2021 14:35:16 11/13/2021 15:33:50 Type 1 diabetes mellitus 58924123 E10.9 Body mass index 20-24 - normal 135481041 Z68.23 Plantar fasciitis 20280221 003 M72.2 [id number] Prashanth Saldana PA-C [facility] [address] [place] [address] 05/30/2022 11:23:14 05/30/2022 12:00:41 Type 1 diabetes mellitus 06691444 E10.9 Diabetic p eripheral neuropathy 957239613 E11.40 Anxiety 08880516 F41.9 Gastroesop hageal reflux disease without esophagitis 910740535 K21.9 Nausea and vomiting 1693 1999 R11.2 Javier ordered Diphenhydr amine, was administer ed and pt was advised if didn't help to go to ER, voiced understand ing Gastropare sis due to type 1 diabetes mellitus 890873601 E10.43 [id number] Prashanth Saldana PA-C [facility] [address] [place] [address] 12/18/2022 14:17:54 12/19/2022 14:24:56 Type 1 diabetes mellitus 47313378 E10.9 Persistent insomnia 1919 18360 G47.09 Mixed anxi ety and depressive disorder 840493874 F41.8 Overweight 406632980 E66 .3 [id number] Prashanth Saldana PA-C [facility] [address] [place] [address] 04/16/2023 15:00:29 04/17/2023 14:26:08 Type 1 diabetes mellitus 25024370 E10.9 Marijuana user 448525218 F12.10 Overweight 870261088 E66 .3 [id number] Juan Pemberton MD [facility] [address] [place] [address] 09/03/2024 11:45:12 09/07/2024 14:32:03 Mixed hypercholesterolemia and hypertriglyceridemia 511911785 E78.2 Type 1 ignacio betes mellitus 09755401 E10.9 Body mass index 20-24 - normal 246637093 Z68.23 [id number] Juan Pemberton MD [facility] [address] [place] [address] 01/06/2025 14:41:12 01/08/2025 08:55:40 Type 1 diabetes mellitus 12657074 E10.69 3813738 Body mass index 20-24 - normal 518647977 Z68.23 [id number] Health Concerns Section Related Observation LastModified by Organization Detai ls LastModified Time None Recorded Concern Status LastModified by Organization Details LastModified Time None Recorded Advance Directives Directive None Recorded Payers Insurance Date Sequence Insurance Name Policy Number Policy Blankenship Covered Member ID Blankenship Member ID Guarantor Name 01/03/2025 1 [facility] (MEDICAID HMO) [id number] Peter Shore [id number] Peter Shore 04/15/2024 1 [place] [facility] Peter Shore [id number] Peter Shore 04/15/2024 1 [facility] (MEDICAID HMO) [id number] 0003 Peter Shore [id number] Peter Shore Notes Date Note Type Note Provider Name and Address Organization Details Recorded Time 05/30/2022 text/html ROS as noted in the HPI hx of type 1...frequent crashes...hx of gastroparesis...gibson s pain and acidic belching..sugar currently 134...hasnt taken his GERD meds yet... Prashanth Saldana PA-C Attn: [address] [place], [address], [facility] 05/30/2022 11:57:53 12/18/2022 text/html ROS as noted in the HPI says he cannot sleep...watches movies all night...says his stress levels are high...GERD is present....still smokes a lot of weed...says he gets bored and everybody stresses him out without weed Prashanth Saldana PA-C Attn: [address] [place], [address], [facility] 12/18/2022 14:47:31 04/16/2023 text/html ROS as noted in the HPI smoked weed.. took a nap ..came in and appears stoned.. (when asked about weed grandmother said no and patient said yes)...reports that he has an upcoming appt with endo in april Prashanth Saldana PA-C Attn: [address] [place], [address], [facility] 04/16/2023 15:47:33 09/03/2024 text/html ROS as noted in the HPI annual check up...says he quit etoh...says he is living healthier..has gained weight...says blood sugars are better...Nay Hamm [facility], [facility] 09/03/2024 12:18:11 01/06/2025 text/html ROS as noted in the HPI has a new GI doctor vs diabetic gastroparesis... Prashanth Saldana PA-C Attn: [address] [place], [address], [facility] 01/06/2025 15:19:28
--- OUTSIDE RECORDS SUMMARY | 2025-04-16 08:44 | XMS_ITS | Clinical Summary ---
Author Organization [facility] Address [address] [place] [address] Phone Care Team Providers Care Sanitation Manager Name Role Phone Prashanth Saldana Primary Care Provider [phone] Allergies Active Allergy Reactions Criticality Noted Date [...] 1 Active Insulin Pen Needle (TechLite Pen Henning) 31G X 8 MM Misc USE TO [...] 10 Tablet 2 Active Continuous Blood Gluc Court Supervisor (Dexcom G6 Court Supervisor) Device USE TO CHECK GLUCOSE 4X DAILY. [...] drink = 0.6 oz pur e alcohol) [facility] Utilities Answer Date Recorded In [...] often do you attend chur ch or gnosticist services? Never 10/16/2024 Do you belong to any clubs o r organizations such as yarsanism groups, unions, fraternal or athletic groups, or [...] medical care, and heating? Somewhat hard 10/16/2024 [facility] - [facility] [...] to sleep or slept in a senior living (including now)? No 12/07/2023 Housing Stability Vital Sign Answer Eloy e Recorded In the last 12 months, was t here a time when you were not able to pay the mortgage or rent on time? No 10/16/2024 In the past 12 months, how m any times have you moved where you were living? 1 10/16/2024 At any time in the past 12 m [facility], were you homeless or living in a senior living (including now)? No 10/16/2024 Sexually Active Control [...] CDT LIPID PANEL Routine 06/24/2019 5:44 AM SCALE TESTER from Last 3 Months or Most Recently Relevant to Health Maintenance Results * (ABNORMAL) CMP (12/24/2024 9:39 AM CDT) SODIUM 140 136 - 145 mmol/L 12/24/2024 10:09 AM CDT [facility] POTASSIUM 3.8 3.5 - 5.1 mmol/L 12/24/2024 10:09 AM CDT [facility] CHLORIDE 102 98 - 107 mmol/L 12/24/2024 10:09 AM CDT [facility] CO2, VENOUS 21(L) 22 - 30 mmol/L 12/24/2024 10:09 AM CDT [facility] ANION GAP 20.8(H) <18.0 mmol/L 12/24/2024 10:09 AM CDT [facility] GLUCOSE 204(H) 70 - 99 mg/dL 12/24/2024 10:09 AM CDT [facility] BUN 27(H) 9 - 21 mg/dL 12/24/2024 10:09 AM T [facility] CREATININE, BLOOD 1.31(H) 0.70 - 1.30 mg/dL 12/24/2024 10:09 AM T [facility] BUN/CREATININE RATIO 21(H) 12 - 20 ratio 12/24/2024 10:09 AM CDT [facility] TOTAL PROTEIN 8.4(H) 6.0 - 8.0 g/dL 12/24/2024 10:09 AM CDT [facility] ALBUMIN 5.1(H) 3.5 - 5.0 g/dL 12/24/2024 10:09 AM T [facility] A/G RATIO 1.5 1.0 - 2.2 12/24/2024 10:09 AM CDT [facility] CALCIUM 9.7 8.7 - 10.5 mg/dL 12/24/2024 10:09 AM CDT [facility] T BILI 1.1 0.2 - 1.2 mg/dL 12/24/2024 10:09 AM CDT [facility] SGOT (AST) 22 <43 U/L 12/24/2024 10:09 AM CDT [facility] SGPT (ALT) 16 <56 U/L 12/24/2024 10:09 AM CDT [facility] ALKALINE PHOSPHATASE 80 40 - 150 U/L 12/24/2024 10:09 AM CDT [facility] GFR, ESTIMATED >60 >=60 12/24/2024 10:09 AM CDT [facility] Comment: Creatinine Clearance is the preferred criteria for selecting drug dose adjustments in renally impaired patients. The GFR is provided as additional pertinent clinical information. GFR is reported in mL/min/1.73 sq m. Calculation based on the Chronic Kidney Disease Epidemiology Collaboration (CKD- EPI) equation refit without adjustment for race. GFR, EST. >60 >=60 025 10:09 AM CDT [facility] GFR, EST. NONAFRICAN >60 >=60 12/24/2024 10:09 AM CDT [facility] Blood Venipuncture / Unknown 12/24/2024 9:39 AM CDT 12/24/2024 9:39 AM CDT us Forest Guerrero MD CHEMISTRY ORDERABLES Final Result [facility] [address] [place] [address] * (ABNORMAL) Hemoglobin A1C w/ Estimated Glucose (10/16/2024 2:39 AM CDT) HGB-A1C 7.9(H) 4.0 - 6.0 % 10/16/2024 6:43 AM CDT [facility] Est Average Glucose 180.0 mg/dL 10/16/2024 6:43 AM CDT [facility] Blood Venipuncture / Unknown 10/16/2024 2:39 AM CDT 10/16/2024 2:46 AM CDT Narrative [facility] - 10/16/2024 6:43 AM CDT HEMOGLOBIN A1C: DIABETIC PATIENTS: WELL-CONTROLLED: 6.2 - 7.0 INTERMEDIATE WELL-CONTROLLED: 7.0 - 9.0 POORLY-CONTROLLED: >9.0 Specimens containing greater than 5% of Hemoglobin F may result in lower than expected % HbA1C results. us Sharita Kahn BUSINESS OFFICE REPRESENTATIVEJENIFFER Velarde CHEMISTRY ORDERABLES Stephie l Result [facility] [address] [place] [address] * (ABNORMAL) Lipid Panel AM (06/24/2019 5:44 AM SCALE TESTER) CHOLESTEROL 141 <=200 mg/dL 06/24/2019 1:58 PM SCALE TESTER [facility] TRIGLYCERIDES 158(H) <150 mg/dL 06/24/2019 1:58 PM SCALE TESTER [facility] HDL CHOLESTEROL 30.4(L) >40 mg/dL 9 1:58 PM SCALE TESTER [facility] LDL 79 5 - 130 mg/dL 06/24/2019 1:58 PM SCALE TESTER [facility] VLDL 32 5 - 55 mg/dL 06/24/2019 1:[address] [facility] CHOL/HDL RATIO 4.6(H) 0.0 - 4.4 06/24/2019 1:58 PM SCALE TESTER [facility] NON-HDL CHOLESTEROL 110.6 <130 mg/dL 06/24/2019 1:58 PM SCALE TESTER [facility] LIPID FASTING 06/24/2019 1:58 PM SCALE TESTER [facility] Blood specimen (specimen) BLOOD SPECIMEN / Unknown Venipuncture / Unknown 06/24/2019 5:44 AM SCALE TESTER 06/24/2019 1:10 PM SCALE TESTER Toni Orourke MD CHEMISTRY ORDERABLES Fin al Result [facility] [address] [place] [address] from Last 3 Months or Most Recently [...] measures to stabilize the patient. Care Teams Sanitation Manager Relationship Specialty Start Date End Date Prashanth Saldana, [address] [place] [address] PCP - General Physician Loan Collector 04/03/19
[2025-04-16 08:45] VITALS: BP 124/68; PULSE 77; RESP 14; TEMP 36.6; O2SAT 98
--- NOTE | 2025-04-16 08:57 | ED.ABDPAIN ---
HPI - Abdominal Pain General Chief Complaint: Unspecified Stated Complaint: gastroperisis Time Seen by Provider: 04/16/25 08:50 Source: patient Mode of arrival: ambulatory Limitations: no limitations History of Present Illness HPI narrative: Peter is a 24-year-old male type 1 diabetic patient present to the clinic today with complaints of gastroparesis flare. He reports he had to call into work this morning and is requesting a work note. He has recently seen his GI specialist and they started him on a new medication however his insurance is not allowing him to have a medication until a prior authorization is complete so he is waiting on that process. He reports some generalized abdominal discomfort with nausea and vomiting. No fevers, chills, body aches. Blood sugars 239 per patient's dexcom-patient has insulin pump. Reports when he woke up this morning his blood sugar was 139. Rates pain 4/10 currently. Denies any urinary symptoms or blood in stool or emesis. Related Data Home Medications ?Medication ?Instructions ?Recorded ?Confirmed ?Last Taken ?Type blood-glucose sensor (Dexcom G7 11/03/24 02/04/25 Unknown History Sensor device) blood-glucose transmitter (Dexcom 11/03/24 02/04/25 Unknown History G6 Transmitter device) insulin lispro 100 unit/mL 11/03/24 Unknown History subcutaneous solution (Humalog U-100 Insulin) pantoprazole 40 mg tablet,delayed mg PO 11/03/24 Unknown History release glucagon 1 mg/0.2 mL subcutaneous mg subcut 02/04/25 Unknown History auto-injector (Gvoke HypoPen 2-Pack) mirtazapine 15 mg tablet mg 03/29/25 Unknown History dicyclomine 20 mg tablet mg 04/13/25 Unknown History diphenhydramine HCl 25 mg capsule mg 04/13/25 Unknown History (Banophen) Allergies Allergy/AdvReac Type Severity Reaction Status Date / Time haloperidol (From Haldol) AdvReac Severe Other Verified 04/16/25 08:57 Review of Systems Review of Systems: Pertinent positives per HPI. Patient denies any fever, chills, rash, headache, visual changes, dizziness, cough, runny nose, sore throat, shortness of breath, chest pain, palpitations, diarrhea, constipation, or any urinary issues. [facility] Past Medical History Medical History Gastroparesis Elevated cholesterol Type 1 diabetes Surgical History Surgical History History of cholecystectomy Family History Family History Mother Family history non-contributory Social History Social History Smoking status: Never smoker Alcohol intake: never Substance use: current Substance use type: marijuana Living arrangements: with family Gender identity (if verbalized by the patient): Male Comments At the time of my signature, I reviewed and agree with the nursing past medical, surgical, social, and family history. There is no relevant family history pertinent to the patient complaint. Exam Narrative: General: Well-developed, well nourished, in no apparent distress. Head: Normocephalic, atraumatic. Cardio: Regular rate and rhythm, s1 and s2 normal, no murmur appreciated. Resp: Clear to auscultation bilaterally, no rhonchi, rales, wheezing or rubs. Abdomen: Soft, pliable, bowel sounds present in all quadrants, generalized tender to palpation, no organomegly, no CVAT tenderness. Course Course Emergency Course: Portions of this record may have been created with voice recognition software. Level of Care: Express Care Visit Vital Signs Vital signs: Vital Signs Temperature 36.6 C 04/16/25 08:45 Pulse Rate 77 04/16/25 08:45 Respiratory Rate 14 04/16/25 08:45 Blood Pressure 124/68 04/16/25 08:45 Pulse Oximetry 98 04/16/25 08:45 Oxygen Delivery Room Air 04/16/25 08:45 Temperature 36.6 C 04/16/25 08:45 Pulse Rate 77 04/16/25 08:45 Respiratory Rate 14 04/16/25 08:45 Blood Pressure 124/68 04/16/25 08:45 Pulse Oximetry 98 04/16/25 08:45 Oxygen Delivery Room Air 04/16/25 08:45 Vital signs reviewed MDM - Abdominal Pain MDM Narrative Medical decision making narrative: At the time of visit patient is resting comfortably on the exam table. Patient appears to be nontoxic. Complaints of gastroparesis flare. He reports he had to call into work this morning and is requesting a work note. He has recently seen his GI specialist and they started him on a new medication however his insurance is not allowing him to have a medication until a prior authorization is complete so he is waiting on that process. He reports some generalized abdominal discomfort with nausea and vomiting. Has dicyclomine, pantoprazole, and Zofran at home. No fevers, chills, or body aches. Blood sugars 239 per patient's dexcom-patient has insulin pump. Reports when he woke up this morning his blood sugar was 139. Rates pain 4/10 currently. He denies any urinary symptoms or any blood in his stool or emesis. Mother reported that Toradol and tramadol usually help his abdominal pain. Offered Toradol injection in the clinic for pain and patient agrees. Toradol 60mg IM ordered. Patient states that he has enough of his medication at home and does not need any refills of the dicyclomine, pantoprazole, or Zofran at this time. Medications: Toradol 60mg IM given in the clinic today. Plan: I suspect patient has a gastroparesis flare. Toradol 60 mg IM given in the clinic today. Work note was given for today as per request. Supportive measures were discussed with the patient and they voiced understanding discharge instructions and agrees to treatment plan. Return precautions reviewed Differential Diagnosis Differential diagnosis: Likely abdominal pain, acute appendicitis, constipation, diverticulitis, gastroenteritis, pancreatitis, small bowel obstruction and other (Gastroparesis, type 1 diabetic) Discharge Plan Discharge Clinical Impression: Gastroparesis Patient Disposition: Home Condition: Stable Instructions: Antibiotic Form, Diabetic Gastroparesis (DC), Acute Nausea and Vomiting (ED) Additional Instructions: Toradol 60 mg IM given in the clinic today for pain Continue current medications as prescribed Increase fluids and stay well hydrated May take Tylenol or motrin as directed on bottle for pain/fever Keep a tight control in your blood sugar Clear liquids x 24 hours then advance as tolerated for nausea/vomiting Go to the ED if you develop a worsening in your condition- high fever not controlled by Tylenol or Motrin, dehydration, weakness, lethargy, shortness of breath, or chest pain. Follow up with your PCP in 2-3 days if symptoms persist. Patient Language: Syriac Prescriptions: No Action Gvoke HypoPen 2-Pack 1 mg/0.2 mL auto-injector SUBCUT pantoprazole 40 mg tablet,delayed release (DR/EC) PO insulin lispro [Humalog U-100 Insulin] 100 unit/mL solution Patient Comments: insulin pump (DME) Dexcom G7 Sensor Device MISCELLANEOUS (DME) Dexcom G6 Transmitter Device MISCELLANEOUS mirtazapine 15 mg tablet dicyclomine 20 mg tablet diphenhydramine HCl [Banophen] 25 mg capsule Follow-up/Referrals: Les,REEMA Arizmendi [Primary Care Provider] Stand Alone Forms: Work/School Release IP Time of Disposition: 09:28 Quality NIHSS Nursing Documentation ED NIHSS nursing documentation: reviewed/agree
[2025-04-16] MEDS: KETOROLAC (*BKC) 60 MG/2 ML VIAL IM (09:14)
== END 2025-04-16 09:37 | disposition home or self-care (01) ==
PROVIDERS: Emergency Provider Nurse Practitioner Family; PCP Physician Assistant
DX: E10.43 Type 1 diabetes mellitus with diabetic autonomic (poly)neuropathy (principal); K31.84 Gastroparesis
CPT/HCPCS: 96372; 99213; G0463; J1885